=== PATIENT | male | born 1960 | race Caucasian/White ===

== ENCOUNTER → 2023-05-20 | Outpatient (CLI) | payer MEDICARE, SELFPAY ==
[2023-05-20 12:22] LABS: Absolute Neutrophil Count 5.9 X10^3/uL (2.0-7.7); Basophil# 0.04 X10^3/uL; Basophil% 0.4 % (0-1); Eosinophil# 0.07 X10^3/uL; Eosinophils% 0.8 % (0-5); Hematocrit 44.1 % (40-54); Hemoglobin 13.9 g/dL (13.0-16.5); Lymphocyte % 26.3 % (19-41); Mean Corp Hgb Conc 31.5 g/dL (32-36); Mean Corpuscular Hgb 30.1 pg (27.0-32.0); Mean Corpuscular Volume 95.5 fL (80-94); Mean Platelet Vol. 9.9 fl (6.2-12.0); Monocyte# 0.67 X10^3/uL; Monocyte% 7.4 % (0-10); NRBC Flagged by Analyzer 0 % (0-5); Neutrophil % 64.8 % (47-70); Platelet Count 275 K/mm3 (150-450); RBC Distribution Width SD 45.1 fl (35.1-43.9); Red Blood Count 4.62 M/mm3 (4.6-6.2); White Blood Count 9.1 K/mm3 (4.4-11.0)
[2023-05-20 13:00] LABS: AST(SGOT) 12 U/L (15-37); Alanine Aminotransfer ALT/SGPT 23 U/L (16-61); Albumin, Serum 3.6 g/dL (3.2-5.0); Alkaline Phosphatase 76 U/L (45-117); Anion Gap 6 (5-15); BUN 29 mg/dL (7-18); BUN/Creat Ratio 27.6 RATIO (10-20); Calcium,Total 9.2 mg/dL (8.5-10.1); Chloride 107 mmol/L (98-107); Cholesterol 184 mg/dL (200); Creatinine, Serum 1.05 mg/dL (0.70-1.30); EST Glomerular Filtration Rate 75 mL/min (>60); Est Glom Filt Rate - Afr Amer 91 mL/min (>60); Globulin 3.5 g/dL (2.2-4.2); Glucose 107 mg/dL (74-106); High Density Lipoprotein 59 mg/dL; PSA,Total- Diagnostic 0.61 ng/mL (0.0-4.0); Potassium 3.8 mmol/L (3.5-5.1); Protein, Total 7.1 g/dL (6.4-8.2); Sodium Level 141 mmol/L (136-145); Triglycerides 92 mg/dL; Very Low Density Lipoprotein 18 mg/dL (5-40)
[2023-05-20 13:12] LABS: Hemoglobin A1c 6.1 % (3.8-5.6)
== END | disposition home or self-care (01) ==
LOC: BIMLAB 08:23
PROVIDERS: PCP Internal Medicine; Referring Provider Internal Medicine; Visit Provider Internal Medicine
DX: E11.9 Type 2 diabetes mellitus without complications (principal); N40.0 Benign prostatic hyperplasia without lower urinary tract symptoms; I10 Essential (primary) hypertension
CPT/HCPCS: 36415; 80053; 80061; 83036; 84153; 85025

== ENCOUNTER → 2023-06-04 | Outpatient (CLI) | payer MEDICARE, SELFPAY ==
[2023-06-04 11:46] LABS: PSA,Total - Annual Screen 0.61 ng/mL (0.00-4.00)
== END | disposition home or self-care (01) ==
LOC: LAB 10:40
PROVIDERS: PCP Internal Medicine; Referring Provider Urology; Visit Provider Urology
DX: Z12.5 Encounter for screening for malignant neoplasm of prostate (principal)
CPT/HCPCS: 36415; 84153; G0103

== ENCOUNTER → 2023-07-13 | Outpatient (CLI) | payer MEDICARE, SELFPAY ==
--- NOTE | 2023-07-13 15:57 | MRI_ITS ---
EXAM: MR LUMBAR SPINE WITHOUT INTRAVENOUS CONTRAST CLINICAL INDICATION: sharp throbbing pain in lower bcak, fall x 20 yrs ago, h/o heavy lifting x many years TECHNIQUE: Multiplanar and multisequence MR images of the lumbar spine without intravenous contrast. COMPARISON: Lumbar spine radiographs, 06/15/2023. FINDINGS: VERTEBRAE: L2: Endplate osteophytosis and facet arthrosis. No significant spinal canal or neural foraminal stenosis. No disc herniation. Modic type III endplate signal changes at the inferior endplate of L4. No suspicious marrow space signal abnormality is identified. No fracture or spondylolysis. No spondylolisthesis. Maintained lumbar lordosis. Modic type II endplate signal changes at the superior endplate of L5. Broad Schmorl''s node versus less likely chronic L1 superior endplate compression fracture with less than 25% anterior and mid vertebral body height loss and no retropulsion of the posterior cortex. SPINAL CORD: No significant abnormality. Normal position and signal intensity of the conus medullaris. SOFT TISSUES: No significant abnormality. KIDNEYS AND URETERS: Left renal cyst for which no follow-up is indicated. DISCS/SPINAL CANAL/NEURAL FORAMINA: L1-L2: No significant abnormality. Normal disc height and morphology. Normal spinal canal and lateral recesses. Normal neuroforamina. L2-L3: Disc bulge with small superimposed central disc herniation and moderate facet arthrosis with ligamentum flavum thickening. Mild spinal canal stenosis and mild bilateral neural foraminal narrowing, right greater than left. L3-L4: Disc height loss and disc desiccation. Right central disc herniation superimposed upon a disc bulge and severe bilateral facet arthrosis with ligamentum flavum thickening. Severe spinal canal stenosis with effacement of CSF from the thecal sac and crowding of the intrathecal nerve roots. Impingement of the bilateral traversing L4 nerve roots with indeterminate degree of intrathecal nerve root impingement. Moderate bilateral neural foraminal stenosis. No foraminal nerve root impingement. Below this level, the nerve roots of the cauda equina are disorganized and appear peripheral areas as well as somewhat thickened or clumped. L4-L5: Disc height loss and disc desiccation. Disc bulge with superimposed central disc herniation. Facet arthrosis with ligamentum flavum thickening. Mild to moderate spinal canal stenosis, moderate to severe bilateral neural foraminal narrowing, and bilateral foraminal L4 nerve root impingement. At least abutment of the bilateral traversing L5 nerve roots. L5-S1: Right central disc herniation superimposed upon a disc bulge and moderate to severe bilateral facet arthrosis. Mild spinal canal stenosis, severe right neural foraminal narrowing, and moderate left neural foraminal stenosis. Right S1 nerve root impingement and foraminal right L5 nerve root impingement. MRI/Spine Lumbar (Routine) IMPRESSION: 1. Multilevel degenerative changes, most severe at L3-L4 where there is severe spinal canal stenosis. There appears to be at least mild compressive arachnoiditis of the nerve roots below this level. 2. Multilevel nerve root impingement: Bilateral L4, right L5, and right S1 nerve root impingement. 3. Broad Schmorl''s node versus less likely chronic L1 superior endplate compression fracture with less than 25% anterior and mid vertebral body height loss and no retropulsion of the posterior cortex. RECOMMENDATIONS: Spine surgery consultation. Electronically Signed: Jose Guadalupe Bobo DO at 20:54 EDT ,
== END | disposition home or self-care (01) ==
PROVIDERS: PCP Internal Medicine; Referring Provider Orthopaedic Surgery; Visit Provider Orthopaedic Surgery
DX: M48.061 Spinal stenosis, lumbar region without neurogenic claudication (principal)
CPT/HCPCS: 72148

== ENCOUNTER → 2023-11-30 | Outpatient (CLI) | payer MEDICARE, SELFPAY ==
--- NOTE | 2023-11-30 14:40 | RAD_ITS ---
STUDY: X-RAY - ABDOMEN/PELVIS REASON FOR EXAM: Male, 63 years old. HISTORY OF STONES TECHNIQUE: Single AP view of the abdomen / pelvis. COMPARISON: None. FINDINGS: Normal visualized lung bases. No definite stones although small stones could be obscured by overlying bowel contents. There is moderate diffuse fecal retention, otherwise unremarkable bowel gas pattern. There is no demonstrated free abdominal air. The visualized liver, spleen and kidneys are grossly normal in size and morphology. Normal soft tissue structures. There are diffuse degenerative changes of the visualized lumbar spine. RAD/Abdomen Single View IMPRESSION: No definite acute or significant abnormality seen. No definite renal or ureteral stones. Electronically Signed: Baldo Levi MD at 20:16 EST ,
== END | disposition home or self-care (01) ==
LOC: RAD 14:28
PROVIDERS: PCP Internal Medicine; Referring Provider Urology; Visit Provider Urology
DX: N40.1 Benign prostatic hyperplasia with lower urinary tract symptoms (principal); Z87.442 Personal history of urinary calculi
CPT/HCPCS: 74018

== ENCOUNTER → 2024-01-19 | Outpatient (CLI) | payer MEDICARE, SELFPAY ==
--- NOTE | 2024-01-19 13:39 | ECHOCS_ITS ---
Reason For Study: TIA/CVA Procedure This was a 2D Doppler, Color Flow transthoracic echocardiogram. The study was technically difficult. Contrast injection was performed. Exam performed in department. Left Ventricle Normal LV size. The left ventricular ejection fraction is 45 %. There is mild global hypokinesis of the left ventricle. Right Ventricle Normal RV size. Normal systolic function. Atria Normal left atrium. Normal right atrium. Bubble contrast study negative for right to left interatrial shunt. Mitral Valve Normal mitral valve. Tricuspid Valve Normal tricuspid valve. Mild (1+) tricuspid valve insufficiency. Pulmonary artery systolic pressure is 34 mmHg. Aortic Valve Trisinus/trileaflet aortic valve. Pulmonic Valve Normal pulmonic valve. Great Vessels Normal aortic root. The pulmonary artery is normal size. Inferior vena cava collapse with respiration. Pericardium/Pleural No pericardial effusion. Medication 22 gauge I.V. with prn adaptor inserted into right arm. Diluted definity 2.5ml given slow IV push to enhance endocardial definition. Performed a rapid injection of agitated mix of 9 cc saline and 1cc air to assess for atrial septal defect. MMode/2D Measurements & Calculations LVIDd: 5.7 cm IVSd: 1.1 cm Ao root diam: 3.6 cm LVIDs: 4.7 cm LVPWd: 1.1 cm LA dimension: 4.1 cm FS: 18.0 % LAV(MOD-bp): 64.9 ml LVAd ap4: 40.2 cm2 SV(MOD-sp4): 64.1 ml LAV(MOD-bp) Indexed: 28.8 ml/m2 LVLd ap4: 8.5 cm LAV(MOD-sp2): 66.3 ml EDV(MOD-sp4): 158.9 ml LAV(MOD-sp4): 57.4 ml EDV(sp4-el): 161.4 ml LVAs ap4: 29.5 cm2 LVLs ap4: 7.7 cm ESV(MOD-sp4): 94.8 ml ESV(sp4-el): 96.4 ml EF(MOD-sp4): 40.3 % EF(sp4-el): 40.3 % SV(sp4-el): 65.0 ml LA A4 area: 19.1 cm2 Time Measurements MV dec time: 0.24 sec Doppler Measurements & Calculations MV E max nick: 60.1 cm/sec Lat Peak E' Nick: 7.8 cm/sec Med Peak E' Nick: 7.4 cm/sec MV A max nick: 72.7 cm/sec E/E' lat: 7.7 E/E' med: 8.1 MV E/A: 0.83 MV V2 max: 89.8 cm/sec MV P1/2t max nick: 78.6 cm/sec Ao V2 max: 142.2 cm/sec MV max P.2 mmHg MV P1/2t: 96.7 msec Ao max P.1 mmHg MV V2 mean: 48.2 cm/sec Ao V2 mean: 96.0 cm/sec MV mean P.1 mmHg MV dec slope: 237.9 cm/sec2 Ao mean P.3 mmHg MV V2 VTI: 32.1 cm MVA(P1/2t): 2.3 cm2 Ao V2 VTI: 29.9 cm AV (velocity ratio): 0.65 LV V1 max: 94.5 cm/sec PA V2 max: 128.6 cm/sec TR max nick: 277.7 cm/sec LV V1 max P.6 mmHg TR max P.9 mmHg LV V1 mean P.9 mmHg LV V1 mean: 64.8 cm/sec LV V1 VTI: 19.5 cm ECHO/Echo Complete W/ Contrast Interpretation Summary Normal LV size. The left ventricular ejection fraction is 45 %. There is mild global hypokinesis of the left ventricle. Contrast injection was performed. Ordering Physician: Allyson Soler Referring Physician: Allyson Soler Performed By: Miguel Jacobo RCS
== END | disposition home or self-care (01) ==
PROVIDERS: PCP Internal Medicine; Referring Provider Internal Medicine; Visit Provider Internal Medicine
DX: Z86.73 Personal history of transient ischemic attack (TIA), and cerebral infarction without residual deficits (principal)
CPT/HCPCS: 93306; Q9957; A4216; C8929

== ENCOUNTER → 2024-02-22 | Outpatient (CLI) | payer MEDICARE, SELFPAY ==
--- NOTE | 2024-02-22 14:00 | MRI_ITS ---
STUDY: MRI CERVICAL SPINE WITHOUT CONTRAST REASON FOR EXAM: Male, 64 years old. pain TECHNIQUE: Standardized fat and water weighted pulse sequences were obtained in the sagittal and axial planes. COMPARISON: None FINDINGS: Normal foramen magnum and brainstem-cervical cord junction. Normal craniovertebral junction. Normal anterior atlantoaxial articulation. Normal odontoid process. Normal cervical lordosis. Normal vertebral bodies and posterior osseous elements. C2-3: Normal endplates. Normal disc height, signal and morphology. Normal central canal and intervertebral neural foramina. C3-4: Moderate broad disc osteophyte complex asymmetric left with left uncovertebral hypertrophy produces moderate spinal stenosis with abutment of the central spinal cord and mild left neural foraminal stenosis. C4-5: Mild broad disc osteophyte complex produces mild spinal stenosis. No neural foraminal stenosis. C5-6: Mild broad disc osteophyte complex produces mild spinal stenosis. No neural foraminal stenosis. C6-7: Normal endplates. Normal disc height, signal and morphology. Normal central canal and intervertebral neural foramina. C7-T1: Normal endplates. Normal disc height, signal and morphology. Normal central canal and intervertebral neural foramina. Normal cervical cord. Normal visualized soft tissue structures. MRI/Spine Cervical (Routine) IMPRESSION: Multilevel degenerative changes, as described above. Electronically Signed: Chapincito Wen MD at 0:18 EDT ,
== END | disposition home or self-care (01) ==
PROVIDERS: PCP Internal Medicine; Referring Provider Orthopaedic Surgery Orthopaedic Surgery of the Spine; Visit Provider Orthopaedic Surgery Orthopaedic Surgery of the Spine
DX: G95.9 Disease of spinal cord, unspecified (principal)
CPT/HCPCS: 72141

== ENCOUNTER → 2024-05-27 | Outpatient (CLI) | payer MEDICARE, SELFPAY ==
--- NOTE | 2024-05-27 08:05 | CT_ITS ---
CT LEFT LOWER EXTREMITY WITH 3-D IMAGING CLINICAL INDICATION: Templating for left TKA. TECHNIQUE: Axial CT images of the left lower extremity (including left hip, left knee, and left ankle) was performed without IV contrast material. Coronal and sagittal reformats were provided. The protocol utilizes one or more of the following dose reduction techniques: automated exposure control, adjustment of mA and/or kV according to patient size, and/or use of iterative reconstruction technique. RADIATION DOSAGE (If Supplied By Facility): CTDIvol = ( 18.76 ) mGy, DLP = ( 1167.50 ) mGycm COMPARISON: Left knee radiographs dated 11/11/2023 FINDINGS: Bones: There is degenerative arthrosis of the left hip joint with marginal osteophyte formation. There is severe degenerative arthrosis of the medial femorotibial compartment of the left knee with severe joint space narrowing, marginal osteophyte formation, and subchondral sclerosis. There is moderate degenerative arthrosis of the patellofemoral and lateral femorotibial compartments of the left knee with moderate joint space narrowing and marginal osteophyte formation. There are small calcified loose bodies in the posterior femorotibial joint recess and a cluster of ossified loose bodies in the medial recess of the proximal tibiofibular joint. There is osseous spurring of the posterior calcaneal tuberosity with ossific density in the distal Achilles tendon. Osseous structures are intact without evidence of fracture or dislocation. No lytic or blastic osseous masses. Soft Tissues: There is a small left knee joint effusion. There are atherosclerotic calcifications. The deep soft tissue structures are unremarkable. The superficial soft tissues are unremarkable without evidence of edema, hematoma, or foreign body. CT/Extremity Lower without Contra IMPRESSION: Tricompartment degenerative arthrosis of the left knee, most severe in the medial femorotibial compartment. Small calcified loose bodies in the posterior femorotibial joint recess and a cluster of ossified loose bodies in the medial recess of the proximal tibiofibular joint. Small left knee joint effusion. Electronically Signed: Min Zelaya MD at 8:59 EDT ,
== END | disposition home or self-care (01) ==
PROVIDERS: PCP Internal Medicine; Referring Provider Orthopaedic Surgery; Visit Provider Orthopaedic Surgery
DX: M17.0 Bilateral primary osteoarthritis of knee (principal)
CPT/HCPCS: 73700

== ENCOUNTER 2024-06-22 13:12 | Inpatient (IN) | payer MEDICARE, SELFPAY ==
[2024-05-27 08:16] LABS: Absolute Lymphocyte Count 2.48 X10^3/uL (0.83-4.51); Absolute Neutrophil Count 5.5 X10^3/uL (2.0-7.7); Basophil# 0.08 X10^3/uL; Basophil% 0.9 % (0-1); Eosinophil# 0.31 X10^3/uL; Eosinophils% 3.4 % (0-5); Hematocrit 40.1 % (40-54); Hemoglobin 13.2 g/dL (13.0-16.5); Lymphocyte # 2.48 X10^3/ul (0.83-4.51); Mean Corp Hgb Conc 32.9 g/dL (32-36); Mean Corpuscular Hgb 29.9 pg (27.0-32.0); Mean Corpuscular Volume 90.9 fL (80-94); Mean Platelet Vol. 9.2 fl (6.2-12.0); Monocyte# 0.73 X10^3/uL; NRBC Flagged by Analyzer 0 % (0-5); Neutrophil # 5.53 X10^3/uL (2.7-7.7); Neutrophil % 60.3 % (47-70); Platelet Count 309 K/mm3 (150-450); RBC Distribution Width CV 12.3 % (11.6-14.6); RBC Distribution Width SD 40.6 fl (35.1-43.9); Red Blood Count 4.41 M/mm3 (4.6-6.2); White Blood Count 9.2 K/mm3 (4.4-11.0)
[2024-05-27 08:42] LABS: Anion Gap 8 (5-15); BUN 25 mg/dL (7-18); BUN/Creat Ratio 15.2 RATIO (10-20); Calcium,Total 9.2 mg/dL (8.5-10.1); Chloride 98 mmol/L (98-107); Creatinine, Serum 1.65 mg/dL (0.70-1.30); EST Glomerular Filtration Rate 45 mL/min (>60); Est Glom Filt Rate - Afr Amer 54 mL/min (>60); Glucose 189 mg/dL (74-106); Potassium 4.2 mmol/L (3.5-5.1); Sodium Level 134 mmol/L (136-145)
[2024-05-27 08:44] LABS: Magnesium 3.1 mg/dL (1.6-2.6)
[2024-05-27 09:10] LABS: Prothrombin Time (Protime)PT. 13.4 SECONDS (11.7-14.9)
[2024-05-27 09:11] LABS: Partial Thromboplast Time 29.3 Seconds (24.1-36.2)
[2024-05-28 10:08] LABS: Fructosamine 283 umol/L (0-285)
--- NOTE | 2024-06-21 13:06 | CASEMGMT ---
JASON LANE Assessment: JASON LANE called pt for initial transition planning/care coordination assessment. JASON LANE introduced self and role at [facility], pt voices understanding and consents to assessment. Pt is A&O x4 and answers all questions appropriately at this time. Pt daughter also on TC, pt agreeable to answering questions with daughter present. Care providers, pharmacy, and demographics verified/updated. Admitting Dx:Total Knee replacement. PCP: Dorina Specialists: Leonidas, Neurologist; [facility] Preferred Pharmacy: [facility] Insurance: [employer] Prescription Benefit: yes LNOK: Living Arrangements: Pt lives with in a 1 story with zero steps to enter. Pt needs assistance with ADLs and IADLs. Transportation: Pt drives self. Pt daughter in from [place] and is staying with pt for a few days. DME:wheelchair, walker, shower chair, toilet riser. HHC/SNF: Denies Hx of. Pt daughter has concerns about pt returning home after surgery. Daughter states his place is about 700 sq [address] and is packed wall to wall. Daughter states she is concerned about pt falling and getting hurt, also concerned about pt . Daughter states pt unable to take care of him. Daughter has 5 kids back home in [place] so she is not able to stay for a long period of time. Daughter requested pt go to Rehab or detention facility. JASON LANE explained to daughter therapy will evaluate pt after surgery and will provide recommendations based on their evaluations. Pt daughter voiced understanding. Pt states no further concerns/needs. CM to follow. Advised pt to ask CM if any further question/concerns/needs arise, voices understanding. Pt Goal: TBD Plan: TBD, follow therapy for recommendations JASON Escobar CM
[2024-06-22] VITALS (18 sets, daily range): BP systolic 102–143; BP diastolic 48–72; PULSE 58–92; RESP 16–95; TEMP 36.1–36.8; O2SAT 86–99; BMI 34.2; BMI 36.1
--- NOTE | 2024-06-22 08:53 | PCM.PRE.AN2 ---
ASA Classification* ASA Classification ASA Classification: 2 Assessment & Plan Anesthesia* Anesthesia Assessment Anesthesia Assessment: Discussed sedation and/or anesthesia options, risks, benefits, and alternatives with patient/parents/legal guardian/POA. Questions invited. The patient/parents/legal guardian/POA seems to understand and agrees to proceed with anesthesia plan. Reviewed the physical assessment, medical history, allergy history and patient home medications list prior to surgery/procedure/anesthetic and documented any changes. Performed airway and anesthesia risk assessments. Anesthesia Type Anesthesia Type: Spinal (block) Anesthesia Focused Assessment* Airway Assessment Mouth opens: >3 cm Mallampati Score: II Focused Labs Anesthesia Preop lab: CBC WBC 9.2 K/mm3 (4.4-11.0) 05/27/24 07:45 RBC 4.41 M/mm3 (4.6-6.2) L 05/27/24 07:45 Hgb 13.2 g/dL (13.0-16.5) 05/27/24 07:45 Hct 40.1 % (40-54) 05/27/24 07:45 Plt Count 309 K/mm3 (150-450) 05/27/24 07:45 CHEMISTRY Potassium 4.2 mmol/L (3.5-5.1) 05/27/24 07:45 Sodium 134 mmol/L (136-145) L 05/27/24 07:45 Magnesium 3.1 mg/dL (1.6-2.6) H 05/27/24 07:44 BUN 25 mg/dL (7-18) H 05/27/24 07:45 Creatinine 1.65 mg/dL (0.70-1.30) H 05/27/24 07:45 Glucose 189 mg/dL (74-106) H 05/27/24 07:45 COAG PT 13.4 SECONDS (11.7-14.9) 05/27/24 07:45 Pre-Assessment Diagnosis/Proposed Procedure Planned Operative Procedure(s): LEFT TOTAL KNEE ARTHROPLASTY ROBOTIC Anesthesia History Anesthesia History - multigrapher: Anesthesia History - multigrapher Hx Hospitalization No 05/23/24 10:13 Any Problems With Anesthesia No 05/23/24 10:13 Cholinesterase deficiency No 05/23/24 10:13 You/Your Family Experience No 05/23/24 10:13 fever (hyperthermia) with Relationship Recent Exposure to Contagious Disease Does patient have nerve No 05/23/24 10:13 stimulator Patient instructed to have device shut off --Does patient have Pacemaker or ICD? When Was Last Pacemaker Check QUESTION #4 FULL TEXT: You/Your Family Experience fever (hyperthermia) with Anesthesia Last Oral Intake Last Oral intake: Last Oral Intake NPO since Meds taken in AM with sips of water? Meds patient instructed to take am of surgery PONV PONV - multigrapher: PONV - multigrapher Female No 05/23/24 10:13 HX of Motion Sickness No 05/23/24 10:13 HX of N/V After Surgery No 05/23/24 10:13 Non-Smoker Yes 05/23/24 10:13 Duration of Surgery greater Yes 05/23/24 10:13 than 60 minutes Number of Risk Factors 2 05/23/24 10:13 PONV Score Moderate Risk 05/23/24 10:13 Height & Weight Height & Weight: Anesthesia: Height & Weight Height 5 ft 9 in 03/17/24 09:45 Respiratory Assessment Respiratory Assessment - multigrapher: Respiratory Tract Infection Hx - multigrapher Hx Respiratory Tract Infection No 05/23/24 10:13 STOP Sleep Apnea STOP Sleep Apnea - multigrapher: STOP Sleep Apnea - multigrapher Hx Hypertension Yes: CONTROLLED WITH MEDS 05/23/24 10:13 Hx Sleep Apnea No 05/23/24 10:13 CPAP BIPAP Do you snore loudly (louder Yes 05/23/24 10:13 than talking or can be heard Do you often feel tired/ No 05/23/24 10:13 fatigued/ sleepy during daytime? Has anyone observed you stop No 05/23/24 10:13 breathing during sleep? STOP Results Positive 05/23/24 10:13 QUESTION #5 FULL TEXT : Do you snore loudly (louder than talking or can be heard through closed doors)? 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 Specify any problems Hx of Preganancy in last 3 N/A 05/23/24 10:13 Months Nurse Filling Out Transfusion DSCHRIBER 05/23/24 10:13 & Questions: Date: 05/23/24 05/23/24 10:13 Time: 10:16 05/23/24 10:13 Patient unable to answer at this time (ie. confused, unrespo /Reproduction History /Reproductive History - multigrapher: /Reproductive Hx- multigrapher Hx Now No 05/23/24 10:13 Gestational Age (in weeks): EDC: Hx Hx Para Hx Section SAB No 05/23/24 10:13 Active Medications Active Medications: Current Medications Generic Name Dose Route Start Last Admin Trade Name Frebilly PRN Reason Stop Dose Admin Acetaminophen 1,000 mg 06/22/24 10:30 Acetaminophen 500 Mg Tablet PO 06/22/24 10:31 X1 ONE Celecoxib 400 mg 06/22/24 10:30 Celecoxib 200 Mg Capsule PO 06/22/24 10:31 X1 ONE Dexamethasone Sodium Phosphate 10 mg 06/22/24 10:30 Dexamethasone 10 Mg/Ml Vial IV 06/22/24 10:31 X1 ONE Gabapentin 600 mg 06/22/24 10:30 Gabapentin 600 Mg Tablet PO 06/22/24 10:31 X1 ONE Cefazolin Sodium 2 gm/ Sodium 110 mls @ 150 mls/hr 06/22/24 10:30 Chloride IV 06/22/24 11:13 PREOP ONE Tranexamic Acid 1,000 mg/ 110 mls @ 660 mls/hr 06/22/24 10:30 Sodium Chloride IV 06/22/24 10:39 X1 ONE Tranexamic Acid 1,000 mg/ 110 mls @ 660 mls/hr 06/22/24 10:30 Sodium Chloride IV 06/22/24 10:39 X1 ONE Lactated Ringer's 1,000 mls @ 125 mls/hr 06/22/24 11:30 IV 06/22/24 19:29 .Q8H KHADAR Magnesium Sulfate 1 gm/ 102 mls @ 408 mls/hr 06/22/24 10:30 Dextrose IV 06/22/24 10:44 X1 ONE Lactated Ringer's 1,000 mls @ 15 mls/hr 06/22/24 08:45 IV .Q48H KHADAR Insulin Human Lispro 1 - 6 unit 06/22/24 10:30 Insulin Lispro 100 Unit/Ml Insuln.Pen SC 06/22/24 16:30 Q4H PRN PRN BG>/= 180, SEE PROTOCOL Protocol Scopolamine HBr 1 patch 06/22/24 10:30 Scopolamine 1mg/72hr Patch TD 06/22/24 10:31 X1 ONE PFSH Medical History Wears glasses Depression Bladder disease High cholesterol Back pain Parkinson's disease Stroke/cerebrovascular accident Heartburn Non-smoker History of pain when walking History of edema History of echocardiogram Cardiology follow-up encounter Bilateral primary osteoarthritis of knee Pain in both knees Family history of prostate problems Kidney stones Hypertension Diabetes History of back problems Arthritis Home Medications ?Medication ?Instructions ?Recorded ?Last Taken ?Type aspirin 81 mg tablet,delayed 81 mg PO DAILY HEART HEALTH 02/01/24 Unknown History release dapagliflozin propanediol 10 mg 10 mg PO DAILY CHOLESTEROL 03/17/24 Unknown History tablet spironolactone 25 mg tablet 25 mg PO QDAY WATER PILL 03/17/24 Unknown History atorvastatin 10 mg tablet (Lipitor) 20 mg PO QHS CHOLESTEROL 05/23/24 Unknown History carbidopa 25 mg-levodopa 100 mg 1 tab PO TID PARKINSON 05/23/24 Unknown History tablet amlodipine 10 mg tablet 10 mg PO DAILY BP #90 tabs 05/31/24 Unknown Rx citalopram 40 mg tablet 40 mg PO DAILY DEPRESSION #90 05/31/24 Unknown Rx TABLETS clonidine HCl 0.2 mg tablet 0.2 mg PO BID BP #180 tabs 05/31/24 Unknown Rx lisinopril 20 1 tab PO DAILY BP #90 tabs 05/31/24 Unknown Rx mg-hydrochlorothiazide 12.5 mg tablet tamsulosin 0.4 mg capsule 0.4 mg PO QHS PROSTATE #90 caps 05/31/24 Unknown Rx Allergy/AdvReac Type Severity Reaction Status Date / Time acetaminophen (From Vicodin) Allergy Intermediate Nausea/Vom/ Verified 05/23/24 09:57 Diarrhea hydrocodone (From Vicodin) Allergy Intermediate Nausea/Vom/ Verified 05/23/24 09:57 Diarrhea tramadol Allergy Intermediate Nausea/Vom/ Verified 05/23/24 09:57 Diarrhea Family History Mother Hypertension Myocardial infarction Colon cancer CVA (cerebral vascular accident) Depression Diabetes Brother Colon cancer Cancer STOMACH CVA (cerebral vascular accident) Hypertension Father Hypertension Sister Diabetes Surgical History No pertinent past surgical history Social History household members: spouse current occupational status: retired current occupation: [employer] Smoking Status: Never smoker Electronic Cigarette Use: not used alcohol intake: never substance use type: does not use what type of physical activity do you participate in: none seatbelt use: sometimes do you feel safe at home: Yes Review of Systems (Anesthesia) ROS Narrative System reviewed and no additional complaints, except as documented.
--- NOTE | 2024-06-22 09:21 | PCM.HP.BLA ---
History and Physical Date of Admission: 06/22/24 [facility] [address] [place] [address] OFFICE VISIT Date of Service: 02/24/24 MR#: [id number] Acct: [id number] Name: NICK ARORA Rep #: [id number] : 1960 Provider: Dr. Mac Ge DO Age/Sex: 64/M Location: [facility] [place].JUSTYN Status: Signed Intake Vital Signs 02/08/2413:59 02/14/2414:45 Height 5 ft 9 in 5 ft 9 in Weight: 243 lb BMI 35.9 Intake Visit Reasons: RIGHT KNEE Chief Complaint: 3rd Euflexxa Injection Accompanied by: Self Is patient in pain?: Yes Allergies acetaminophen (From Vicodin) Allergy (Intermediate, Verified 02/24/24 13:17) Nausea/Vom/Diarrheahydrocodone (From Vicodin) Allergy (Intermediate, Verified 02/24/24 13:17) Nausea/Vom/Diarrheatramadol Allergy (Intermediate, Verified 02/24/24 13:17) Nausea/Vom/Diarrhea Medications ?Medication ?Instructions ?Recorded ?Confirmed ?Type amlodipine 10 mg tablet 10 mg PO DAILY #90 tabs 12/02/23 02/24/24 Rx citalopram 40 mg tablet 40 mg PO DAILY #90 TABLETS 12/02/23 02/24/24 Rx clonidine HCl 0.2 mg tablet 0.2 mg PO BID #180 tabs 12/02/23 02/24/24 Rx doxazosin 2 mg tablet 2 mg PO DAILY #90 tabs 12/02/23 02/24/24 Rx gabapentin 600 mg tablet 600 mg PO BID #60 tabs 12/02/23 02/24/24 Rx lisinopril 20 1 tab PO DAILY #90 tabs 12/02/23 02/24/24 Rx mg-hydrochlorothiazide 12.5 mg tablet meloxicam 7.5 mg tablet 7.5 mg PO DAILY #90 tabs 12/02/23 02/24/24 Rx metformin 500 mg tablet,extended 500 mg PO DAILY #90 tabs 12/02/23 02/24/24 Rx release 24 hr primidone 50 mg tablet 25 mg (1/2 x 50 mg) PO QHS #15 tabs 12/02/23 02/24/24 Rx propranolol 60 mg capsule,24 60 mg PO DAILY #90 caps 12/02/23 02/24/24 Rx hr,extended release tamsulosin 0.4 mg capsule 0.4 mg PO DAILY #90 caps 12/02/23 02/24/24 Rx atorvastatin 10 mg tablet (Lipitor) 10 mg PO QHS #30 tabs 01/14/24 02/24/24 Rx finasteride 5 mg tablet mg PO DAILY 01/14/24 02/24/24 History aspirin 81 mg tablet,delayed 81 mg PO DAILY 02/01/24 02/24/24 History release carvedilol 25 mg tablet 25 mg PO BID 02/01/24 02/24/24 History PFSH Medical History Cerebral vascular accident Bilateral primary osteoarthritis of knee Pain in both knees Family history of prostate problems Kidney stones Hypertension Diabetes History of back problems Arthritis Surgical History No pertinent past surgical history Family History Mother Hypertension Myocardial infarction Colon cancer CVA (cerebral vascular accident) Depression DiabetesBrother Colon cancer Cancer STOMACH CVA (cerebral vascular accident) HypertensionFather HypertensionSister Diabetes Social History household members: spouse current occupational status: retired current occupation: [employer] Smoking Status: Never smoker Electronic Cigarette Use: not used alcohol intake: never substance use type: does not use what type of physical activity do you participate in: none seatbelt use: sometimes do you feel safe at home: Yes HPI RIGHT KNEE Details: This documentation accurately reflects the service provided and the decisions made by me, Dr. Mac Ge, DO 02/24/24 0809. Part of today?s visit was documented by Jennifer Lucia ATC, acting as scribe. NICK ARORA is a 64 year old M here today for right knee 3rd Euflexxa injection. Patient states the right knee is not bothering him much today but the left one is bothering him. He states his back is really bothering him so it takes his mind off of the knee pain. 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 Patient is interested in getting a TKA on the left knee. Ortho Exam General General: Yes no acute distress Neurologic: Yes alert and Yes oriented x3 Psychologic: Yes reasonable and appropriate Right Knee Skin/Wound: Yes CDI, No erythema, No ecchymosis and No swelling Knee ROM: No ROM-Extension -20 to 0 (-22) and Yes ROM-Flexion 0-140 (120) Examination: Yes Med jt line tenderness Stability: NML: Anterior Drawer, NML: Posterior Drawer, NML: Valgus 0, NML: Valgus 30, NML: Varus 0 and NML: Varus 30 Patella Grind: Yes Head: Normocephalic Atraumatic Chest: symmetrical rise, non-labored breathing, no audible wheeze Abdomen: no guarding, non-rigid Office Procedures Euflexxa Procedure Details:: Obtained consent for injection. Under sterile conditions, injected the patients right knee with 3rd Euflexxa injection. The patient tolerated the injection well without any noted complication. Patient should call our office if redness develops, pain worsens or if they have any concerns. Is this Buy & Bill?: Yes Office Meds Euflexxa 10 mg/mL (mw 2.4-3.6 million) intra-articular syringe Performing Provider: Mac Ge DO Performing Location: [facility] Administered by: Mac Ge DO on 02/24/24 13:30 Dose Route Admin Location Dispensed Lot Number Expiration Date NDC Sign Out Clerk 20 mg intra-articular Right knee 2 mL [id number] 01/30/25 [address]-4 [facility] Supplemental Info 11/11/2023 x-ray right knee: Moderate tricompartmental DJD worse medial and patellofemoral compartment large osteophytes posterior tibia trochlea and patella 11/11/2023 x-ray left knee: Advanced medial compartment arthrosis [id number] moderate patellofemoral and lateral compartment 04/30/2023 x-ray left knee: Advanced medial compartment arthrosis [id number] moderate patellofemoral and lateral compartment 04/30/2023 x-ray right knee: Moderate tricompartmental DJD worse medial and patellofemoral compartment large osteophytes posterior tibia trochlea and patella Coding Level of Care Code Off vis,est,level 3 Diagnoses Bilateral primary osteoarthritis of knee M17.0 CPT Codes Euflexxa Procedure ([id number]) Assessment and Plan Assessment and Plan (1) Bilateral primary osteoarthritis of knee: Status: Acute Orders: Orders Euflexxa Injection Today M17.0 - Bilateral primary osteoarthritis of knee Plan Explained to patient that we still have to wait to see how his 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 Spoke to patient that he needs to talk to the melter supervisor electric arc furnace and ask him if he would be cleared for a TKA. Explained that we would still have to get a medical clearance from the melter supervisor electric arc furnace after the appointment. Explained to him that he could continue with the visco injections on the right knee for now if he is able to move forward with the TKA on the left knee. He is able to get these injections every 6 months. Explained to patient that he would stay in the hospital for 1-2 nights depending on how he does with the surgery. He would go home as long as he is moving around and is stable. Explained to him that most patients start to feel some relief around 3 months but it could take up to a full year to fully recover. Obtained consent for injection. Under sterile conditions, injected the patients right knee with 3rd Euflexxa injection. The patient tolerated the injection well without any noted complication. Patient should call our office if redness develops, pain worsens or if they have any concerns. Follow up in an as needed basis or sooner if pain, swelling, numbness or associated symptoms, or concerns develop. All questions answered. Patient in agreement of plan. 02/24/24 1354 <Electronically signed by Mac Ge DO> Date Mac Cannon Signature: Date (if applicable) CC: ~ I have examined the patient and the H&P has been reviewed. There are no clinical changes since date of exam. Mac Cannon Signature: Date (if applicable) CC: ~ I have examined the patient and the H&P has been reviewed. There are no clinical changes since date of exam.
[2024-06-22] MEDS: Magnesium 1 GM over 15 mins IV (09:23)
[2024-06-22] MEDS: Scopolamine 1mg/72hr Patch 1 PATCH TD (09:23)
[2024-06-22] MEDS: Lactated Ringers 1,000 ML 15 ML IV (09:23)
[2024-06-22] MEDS: Celecoxib 200 MG Capsule 400 MG PO (09:23)
[2024-06-22] MEDS: Acetaminophen 500 MG Tablet 1000 MG PO ×3 (09:24→21:37)
[2024-06-22] MEDS: Gabapentin 600 MG Tablet PO (09:24)
[2024-06-22 10:16] LABS: Bedside Glucose 154 mg/dL (74-106)
[2024-06-22] MEDS: Cefazolin 2 GM in 0.9% Normal Saline (100mL Bag) 100 ML IV ×3 (10:21→21:43)
[2024-06-22] MEDS: dexAMETHasone 10 MG/ML Vial IV (10:30)
[2024-06-22] MEDS: TXA 1000mg in NS100 100ml (IVPB at Incision) 660 MG IV (10:31)
--- NOTE | 2024-06-22 10:40 | KNEE_PTH ---
PATIENT: NICK ARORA LOC: MS3 U#:[id number] AGE/SX: 64/M ROOM: [facility] RE06/22/[address]: Dr. Alondra Zelaya DO : 1960 BED: 1 DIS: 06/29/2024 SPEC #: [id number] RECD: 06/23/24 08:17 STATUS: SOBIA CHRIS #: [id number] ORALIA: 06/22/24 10:[address]: Mac Ge DEPT: SURGICAL PATHOLOGY RECD BY: Ciarra Lofton ENTERED: 06/23/24 10:22 SP TYPE: TOTAL KNEE OTHR DR: Dr. Mishel Vivar MD Tissues: Knee, NOS Procedures: Decalcification bone/plaque Surgery Specimen Level IV HEADER OPERATION: Left total knee replacement robotic arm assist PRE-OP DIAGNOSIS: Bilateral primary osteoarthritis of knee TISSUE SUBMITTED: Bone and soft tissue left knee MICROSCOPIC DIAGNOSIS Bone and tissue of left knee, total knee resection: Severe degenerative joint disease. AM: 06/29/2024 MICROSCOPIC DESCRIPTION Slides are reviewed. GROSS DESCRIPTION Received is one container designated bone and soft tissue left knee. The specimen consists of multiple fragments of mcconnell-yellow bone measuring in aggregate 11.0 x 10.0 x 3.0 cm. No soft tissue is identified. A number of bony fragments contain articular surfaces consistent with tibial plateau and femoral condyle and displaying prominent osteophyte formation, eburnation and bone erosion. Logistics Project Manager sections are submitted in one cassette after decalcification. / JASE. 06/23/2024 TC:5 CPT: 81866, 85845
[2024-06-22] MEDS: TXA 1000mg in NS100 100ml (IVPB at Closure) 660 MG IV (11:06)
[2024-06-22] MEDS: Epinephrine (1 mg/ml) 1 MG/ML VIAL (12:11)
[2024-06-22] MEDS: dexAMETHasone 4 MG/ML Vial (12:11)
[2024-06-22] MEDS: Bupivacaine 0.5% PF 10 ML VIAL (12:11)
[2024-06-22] MEDS: 0.9% Normal Saline (Pres. free 10 ML Vial (12:11)
--- NOTE | 2024-06-22 13:17 | PCM.OP.BLANK ---
Operative Report Date of Procedure: 06/22/24 Preoperative diagnosis: Left knee DJD Postoperative diagnosis: Same Procedure: Left total knee arthroplasty CT guided Robotic Assisted Implant: Dashawn triathlon press fit, femoral component size5, tibial baseplate size 5, asymmetric patella size 35, polyethylene X3 size 9 CS Anesthesia: General With adductor canal block Tourniquet time: 12 minutes at 300 mmHg Complications: None Condition: Stable to PACU Estimated blood loss: 200 cc Rental Representative Maik Atkinson. My physician clinical data assistant was a vital part of this case. He was important in appropriate retraction during the case, and protection of soft tissues during procedure. His intimate knowledge of the case and my steps aided in safe and expedient completion of the procedure as well as appropriate position of the extremity during the case. He was also vital in assisting with closure under my direct supervision. Indication for procedure: This is a 64-year-old male with long standing degenerative joint disease of the knee who has failed conservative treatment and wished to proceed with elective total knee arthroplasty. Risk benefits and alternatives were reviewed including; risk of bleeding, infection, nerve artery and tissue damage, continued pain, postoperative stiffness, venous thromboembolism, need for postoperative rehabilitation, mechanical feel to the knee, and expected postoperative course. The pre- operative CT and templating was performed with component sizing. Procedure: The patient was met in the preoperative holding area. The operative extremity was identified by both patient and physician and was marked. Patient was met by anesthesia. An adductor canal block was placed by anesthesia postoperatively the patient was brought back to the operating room on a wheeled cart and transferred to the operating table in the supine position. Anesthesia was started. A well-padded tourniquet was placed on the operative extremity. The patient was prepped and draped in the usual sterile fashion. A timeout was called to ensure the proper patient procedure and extremity were being contemplated. An esmarch was used to exsanguinate the extremity. The tourniquet was inflated. A 10 blade scalpel was used to make a midline incision down through the skin and subcutaneous tissue. Skin retractors placed. Bovie and Aquamantis were used to perform meticulous hemostasis. full-thickness flaps were elevated medial and lateral along the joint capsule. A deep blade scalpel was used to perform a medial parapatellar arthrotomy. The knee was brought to full extension. A bovie was used to release the soft tissues off the most proximal aspect of the medial tibial plateau, a three-quarter inch curved osteotome was also used in this process. The infrapatellar fat pad was excised. The suprapatellar fat pad was excised partially anteriorolateraly and portion the anterioromedial pad was elevated from the femur. At this point our intra-articular femoral array was placed at a 45 degree angle proximal and posterior to the medial epicondyle. femoral checkpoint was placed at this time. Our tibial array was placed partially intra incisional 1 stab incision was made for the inferior pin with a 15 blade scaple, and pins were placed and attached to the tibial array , tibial checkpoint was placed in the proximal tibial metaphysis. Tourniquet was let down. At this point registration dow were taken throughout the knee . Once the knee was registered we then tensioned the medial and lateral ligaments in extension and 90 degrees of flexion. We then used these numbers to adjust our components within parameters to balance the knee in both flexion and extension once this was done on our monitor we then proceeded with using the robotic arm to make our tibial plateau cut, anterior and posterior chamfer and distal femur cuts. we removed the cut fragments with the use of a bovie and Marianela, we did use a lamina chainstitch pants outseamer to insure we visualized and removed all posterior osteophytes and at this time also used the Aquamantis on the posterior joint capsule. we then trialed and achieved the desired plan with a well-balanced knee. we used the green probe to elizabet the corresponding tibial rotation based on our CT template. Lug holes were drilled in the femur the tibia preparation was completed with the appropriate sized base plate pinned based on previous rotation elizabet. An appropriate sized fin punch was used on the tibia and 4 corner drill was used for the press fit component and the patella was prepared by first using a caliper to ensure sufficient bone stock and a patellar reamer to remove the desired amount of bone. lug holes drilled for an asymmetric poly. We then brought the knee through range of motion with excellent patellar tracking. We thoroughly irrigated the knee. Trial components were removed a posterior capsular injection was preformed with our standard cocktail. In addition the aqua Mantis was also used to aid in hemostasis. Betadine rinse was allowed to sit and washed out completely. Components were press-fit into place. Aricept rinse was then used followed by several more liters of irrigation after it was allowed to sit. The joint capsule was closed with #1 Ethibond [id number]'s in the upper part of the arthrotomy and #1 Vicryl in the lower part of the arthrotomy. , Followed by 2-0 Vicryl in the subcutaneous tissues with lianet in the skin. Arrays and checkpoints were removed prior to closure all counts were correct stab incisions were closed with a staple standard dressing in the form of Mepilex AG for the main incision and a small Mepilex over the pin holes. Thigh-high NOLVIA hose applied over top of dressing. Patient tolerated the procedure well and was directed to PACU in stable condition . There were no intraoperative complications.
--- NOTE | 2024-06-22 13:18 | PCM.POST.ANE ---
Anesthesia: Postop Eval I Current Vital Signs Temperature: 97.4 F Pulse Rate: 90 Blood Pressure: 130/63 Respiratory Rate: 16 Pulse Ox: 95 Assessment Airway patent: Yes Spontaneous unlabored respirations: Yes nausea: No Vomiting: No Anesthesia Complication: No Fluid Hydration Crystalloid volume administer (ml): 1,000 Total IV fluid infused: 1,000 Progress Note Anesthesia document: Postop Eval 1 completed: Yes
--- NOTE | 2024-06-22 13:20 | RAD_ITS ---
STUDY: X-RAY - LEFT KNEE REASON FOR EXAM: Male, 64 years old. Post op -- AP and Lateral xray of operative knee in PACU TECHNIQUE: 2 views of the left knee. COMPARISON: Left knee radiographs dated 11/11/2023. FINDINGS: There are new postoperative changes related to left total knee arthroplasty with patellar resurfacing. There is a vertical staple line along the anterior aspect of the knee. There is gas in the patellofemoral joint recess and anterior soft tissues, compatible with recent surgery. The orthopedic hardware components are intact. There is no periprosthetic fracture. Normal proximal tibiofibular articulation. There are atherosclerotic calcifications. RAD/Knee 1 or 2 Views IMPRESSION: New postoperative changes related to left total knee arthroplasty. Electronically Signed: Min Zelaya MD at 13:36 EDT ,
--- NOTE | 2024-06-22 13:20 | PCM.POSTANE2 ---
Anesthesia Postop Eval I Sum Postop Eval Completion status Anesthesia document: Postop Eval 1 completed: Yes Anesthesia Postop Eval I Summary Anesthesia Postop Eval I Summary: Anesthesia Postop Eval I: Assessment Summary Airway patent Yes 06/22/24 13:19 Spontaneous unlabored Yes 06/22/24 13:19 respirations Mental status nausea No 06/22/24 13:19 Vomiting No 06/22/24 13:19 Anesthesia Postop Eval I: Fluid Summary Crystalloid volume administer 1,000 06/22/24 13:19 (ml) Colloids volume administered ( ml) Blood Product volume administered (ml) Total IV fluid infused 1,000 06/22/24 13:19 Anesthesia Postop Eval I: Summary Notes Anesthesia Complication No 06/22/24 13:19 Anesthesia Complication Comment: Post-operative progress note Anesthesia: Postop Eval II Evaluation Mental status: Awake Pain Level: 0 nausea: No Vomiting: No
[2024-06-22] MEDS: Carbidopa/Levodopa 25/100 Tablet PO ×2 (15:31→17:26)
[2024-06-22] MEDS: oxyCODONE 5 MG Tablet PO ×3 (16:41→23:20)
--- NOTE | 2024-06-22 16:46 | SUR.PHASEII ---
OXYGEN REMOVED AND HE IS 94-95% ON ROOM AIR BEFORE HE WENT UP TO HIS ROOM.
--- NOTE | 2024-06-22 18:12 | PCM.PN.HOSP ---
Reason for Visit Reason for Visit: Right knee pain/osteoarthritis Subjective Subjective Patient is a 64-year-old white male who presented electively to [facility] on 06/22/2024 for total knee arthroplasty of his right knee. He had failed outpatient conservative management including Euflexxa injections. He was seen preoperatively by cardiology for medical clearance. Given his failure of outpatient conservative management he elected to undergo a left total knee arthroplasty on 06/23/2024. He has a past medical history of stroke, nephrolithiasis, essential hypertension, DM-2, BPH, ARASELI, and chronic systolic heart failure. We have been consulted postoperatively to help manage his ongoing chronic medical issues. The patient was evaluated postoperatively on the medical floor. Patient states he is having a little bit of pain and was just given medication for this. He is getting ready to eat dinner. He states is not all that hungry but wants to get something in his stomach. He denies any complaints at this time otherwise. Objective Data Objective Data Vital Signs: Vital Signs Temp Pulse Resp BP Pulse Ox O2 Del Method O2 Flow Rate 97.6 F L 77 18 129/48 H 97 Nasal Cannula 2 06/22/24 16:53 06/22/24 16:53 06/22/24 16:53 06/22/24 16:53 06/22/24 17:29 06/22/24 17:29 06/22/24 17:29 Oxygen Flow Rate (L/min) 2 Oxygen Delivery Method Nasal Cannula Weight: 111.13 kg Body Mass Index (BMI) 36.1 Intake & Output: Intake and Output for Last 24 Hours 06/20/24 06/21/24 06/22/24 23:59 23:59 23:59 Intake Total 2552.75 / 2552.75 Balance 2552.75 / 2552.75 Lab / Micro Data 05/27/24 07:45 05/27/24 07:45 Labs: Laboratory Results - last 24 hr 06/22/24 09:12: POC Glucose 154 H 06/22/24 09:21: Blood Type Cancelled, Antibody Screen Cancelled 06/22/24 10:15: Blood Type O POSITIVE, Antibody Screen NEGATIVE Micro: Microbiology 05/27/24 07:45 Swab (Method) Nasal Screen MRSA/MSSA - Final Radiography Diagnostic Testing: Radiology Impression Knee X-Ray 06/22/24 13:20 IMPRESSION: New postoperative changes related to left total knee arthroplasty. Electronically Signed: Min Zelaya MD at 13:36 EDT , Physical Exam Const alert, oriented x3, no apparent distress, healthy appearing and well nourished; Negative for average body habitus Constitutional Narrative: Obese, upper middle-aged, white male, sitting up in bed getting ready dinner and watching television, appears comfortable, nontoxic HEENT head/scalp atraumatic and moist oral mucous membranes HEENT Narrative: Dentures in place, Mallampati 3, no thrush Head and Scalp: normocephalic Resp normal respiratory effort, no retractions, no use of accessory muscles and clear to auscultation bilaterally Auscultation: Negative for rales, rhonchi or wheezes Cardio regular rate, regular rhythm, S1 normal heart sound, S2 normal heart sound, no murmurs, no rub, no gallops and no clicks GI normal to inspection, nondistended, normoactive bowel sounds, soft to palpation and non-tender Extremity no clubbing, cyanosis or edema Extremity Narrative: NOLVIA hose bilateral lower extremities, polar ice on right knee Neuro oriented x3 and moves all extremities Speech: speech normal Psych Psych Narrative: Slightly groggy but affect is normal and patient interacts appropriately with good eye contact Assessment & Plan Assessment/Plan (1) Left knee pain: QUALIFIERS: Chronicity: chronic Qualified Code(s): M25.562 - Pain in left knee; G89.29 - Other chronic pain PLAN: Plan Right knee osteoarthritis -Postop day 0 right total knee arthroplasty -Pain management per primary -Recommend bowel regimen -PT/OT consultation -DVT prophylaxis per orthopedic surgery DM-2 -Continue home oral agents -Recommend cardiac/carb controlled diet -A1c on 03/14/2024 was 6.8 Chronic tremor -Continue home carbidopa levodopa -Follows with neurology and thought to be Parkinson's -Ongoing follow-up pending Essential hypertension/HPL -Continue home amlodipine 10 mg daily -Continue home atorvastatin 20 mg nightly -Continue home p.o. clonidine 0.2 mg p.o. twice daily -Continue home lisinopril/HCTZ 23/09.5 daily -Continue home Aldactone Chronic systolic heart failure -Continue goal-directed therapy -Ongoing outpatient follow-up with cardiology as recommended -Patient was seen preoperatively for cardiac clearance -Echocardiogram on 01/19/2024 shows an EF of 45% with mild global hypokinesis of the LV, negative bubble study and right ventricular systolic pressure of 34 mmHg -Has upcoming cardiology follow-up planned for July ARASELI -Patient does not wear CPAP and is not willing to do so History of stroke -Continue home aspirin -Continue ongoing modifications of secondary risk factors Obesity -BMI is 36.2 -Complicates treatment, prognosis, outcomes DVT prophylaxis -Per primary service Charges/Coding Visit Charges Inpatient E&M: 91008 Subs Hosp L2
[2024-06-22] MEDS: Atorvastatin Calcium 20 MG Tablet PO (21:37)
[2024-06-22] MEDS: Senna/Docusate Sodium 1 Tablet 2 TABLET PO (21:37)
[2024-06-22] MEDS: cloNIDine HCl 0.2 MG Tablet PO (21:37)
[2024-06-22] MEDS: Tamsulosin HCl 0.4 MG Capsule PO (21:37)
[2024-06-22] MEDS: Calcium Carbonate 500 MG Tablet PO (23:17)
[2024-06-23] VITALS (10 sets, daily range): BP systolic 118–158; BP diastolic 63–74; PULSE 77–85; RESP 16–20; TEMP 36.6–37.1; O2SAT 93–97
[2024-06-23] MEDS: oxyCODONE 5 MG Tablet PO ×4 (03:32→21:05)
[2024-06-23] MEDS: Calcium Carbonate 500 MG Tablet PO (03:32)
[2024-06-23] MEDS: Ondansetron 4 MG/2 ML Vial IV (06:10)
[2024-06-23] MEDS: Acetaminophen 500 MG Tablet 1000 MG PO ×3 (06:11→21:07)
[2024-06-23] MEDS: Carbidopa/Levodopa 25/100 Tablet PO ×2 (06:12→11:07)
[2024-06-23] MEDS: Cefazolin 2 GM in 0.9% Normal Saline (100mL Bag) 100 ML IV (06:15)
[2024-06-23 06:55] LABS: Hematocrit 37.1 % (40-54); Hemoglobin 12.1 g/dL (13.0-16.5); Mean Corp Hgb Conc 32.6 g/dL (32-36); Mean Corpuscular Hgb 30.3 pg (27.0-32.0); Mean Platelet Vol. 9.3 fl (6.2-12.0); Platelet Count 328 K/mm3 (150-450); RBC Distribution Width CV 12.3 % (11.6-14.6); RBC Distribution Width SD 42.3 fl (35.1-43.9); Red Blood Count 3.99 M/mm3 (4.6-6.2); White Blood Count 18.3 K/mm3 (4.4-11.0)
[2024-06-23 07:20] LABS: Anion Gap 9 (5-15); BUN 33 mg/dL (7-18); BUN/Creat Ratio 18.1 RATIO (10-20); Calcium,Total 9.8 mg/dL (8.5-10.1); Chloride 102 mmol/L (98-107); Creatinine, Serum 1.82 mg/dL (0.70-1.30); EST Glomerular Filtration Rate 40 mL/min (>60); Est Glom Filt Rate - Afr Amer 48 mL/min (>60); Estimated Creatinine Clearance 49.06 ml/min; Glucose 180 mg/dL (74-106); Potassium 4.6 mmol/L (3.5-5.1); Sodium Level 135 mmol/L (136-145)
--- NOTE | 2024-06-23 08:36 | PCM.PN.ORT ---
Subjective Subjective Patient seen and examined he states he is doing okay however his family has many concerns. He states his pain is controlled he feels like he is not confused he denies chest pain shortness of breath fevers chills he did have emesis this morning but feels okay now. He complains of the bottom of his feet being very itchy however this was present preoperatively and is believed to be neuropathic. He was seen by physical therapy but did only get to the edge of the bed. The family took this as he did not get therapy yesterday. Objective Data Objective Data Vital Signs: Vital Signs Temp Pulse Resp BP Pulse Ox O2 Del Method O2 Flow Rate 98.8 F 79 20 H 158/68 H 95 Nasal Cannula 2 06/23/24 03:31 06/23/24 03:31 06/23/24 03:31 06/23/24 03:31 06/23/24 08:20 06/23/24 08:20 06/23/24 08:20 Oxygen Flow Rate (L/min) 2 Oxygen Delivery Method Nasal Cannula Weight: 245 lb Body Mass Index (BMI) 36.1 Intake & Output: Intake and Output for Last 24 Hours 06/21/24 06/22/24 06/23/24 23:59 23:59 23:59 Intake Total 2972.75 / 2972.75 110 / 110 Output Total 1025 / 1025 1050 / 1050 Balance 1947.75 / 1947.75 -940 / -940 Lab / Micro Data 06/23/24 06:17 06/23/24 06:17 Labs: Laboratory Results - last 24 hr 06/22/24 09:12: POC Glucose 154 H 06/22/24 09:21: Blood Type Cancelled, Antibody Screen Cancelled 06/22/24 10:15: Blood Type O POSITIVE, Antibody Screen NEGATIVE 06/23/24 06:17: WBC 18.3 H, RBC 3.99 L, Hgb 12.1 L, Hct 37.1 L, MCV 93.0, MCH 30.3, MCHC 32.6, RDW Std Deviation 42.3, RDW Coeff of Mario 12.3, Plt Count 328, MPV 9.3, Sodium 135 L, Potassium 4.6, Chloride 102, Carbon Dioxide 24.0, Anion Gap 9, BUN 33 H, Creatinine 1.82 H, Estim Creat Clear Calc 49.06, Est GFR (MDRD) Af Amer 48 L, Est GFR (MDRD) Non-Af 40 L, BUN/Creatinine Ratio 18.1, Glucose 180 H, Calcium 9.8 Micro: Microbiology 05/27/24 07:45 Swab (Method) Nasal Screen MRSA/MSSA - Final Radiography Diagnostic Testing: Radiology Impression Knee X-Ray 06/22/24 13:20 IMPRESSION: New postoperative changes related to left total knee arthroplasty. Electronically Signed: Min Zelaya MD at 13:36 EDT , Physical Exam Const no apparent distress Constitutional Narrative: He does know where he is and who I am however he does not recall the year. General Appearance: cooperative Extremity Extremity Narrative: Left knee dressing clean dry intact compartments soft neurovascular intact EHL tibialis anterior gastrocsoleus intact sensation light touch palpable pedal pulse I do not appreciate any rash or skin irritation on the bottom of his foot the dorsum of his foot or in between his toes this is a chronic bilateral finding that he has had before surgery that is most likely neuropathic Assessment & Plan Assessment/Plan (1) S/P total knee arthroplasty: QUALIFIERS: Laterality: left Qualified Code(s): Z96.652 - Presence of left artificial knee joint PLAN: Plan Postop day #1 left total knee arthroplasty PT OT weightbearing as tolerated encourage knee range of motion patient is to assist right now he is going to need extended care before returning home he also has some confusion at baseline but is slightly worsened. DVT prophylaxis SCDs NOLVIA tyson Eliquis 2.5 mg twice daily for 2 weeks postop Case management is consulted for DC planning appreciate hospitalist input on COVID medical management
--- NOTE | 2024-06-23 08:43 | NURSING ---
family voices frustration with pt no getting his home GERD med although, none is listed on his home med list or at outpt pharmacies , none of the 3 visitors in room can give a name to the med he takes for GERD at this time, the pt that takes care of his meds is sleeping and they do not want to wake her at this time, this nurse sent text to Dr Vivar with a request for this type med-also updated on pt inability to void and has been st. cath x2-
--- NOTE | 2024-06-23 09:09 | CASEMGMT ---
Discharge Planning A list of SNF providers including quality and resource use data and consistent with the patient's preferred geographic region, medical needs, and insurance network was created in [employer] Guide.? This list was provided to the SW. Alma Tompkins Discharge Planning Asst.
[2024-06-23] MEDS: Aspirin E.C. 81 MG Tablet PO (09:16)
[2024-06-23] MEDS: APIXABAN 2.5 MG TABLET (WCH) PO ×2 (09:16→21:06)
--- NOTE | 2024-06-23 09:36 | NURSING ---
therapy in working with pt, pt has been given GERD med protonix, flomax for urine flow, family is still at bedside
--- NOTE | 2024-06-23 10:32 | CASEMGMT ---
Social Work- SW met with pt and pt dtrs. Pt is agreeable to additional therapy; prefers a rehab/TCU. A list of SNF providers including quality and resource use data and consistent with the patient?s preferred geographic region, medical needs, and insurance network were provided from the [employer] Guide. SW also provided medical alert information. Pt FOC would be [facility] d/t location near dtr home. SELAM advised that referral can be made. [facility] will continue to follow. ALPA Walters
--- NOTE | 2024-06-23 10:47 | CASEMGMT ---
Addendum entered by Alma Tompkins 06/24/24 10:04: [facility] I requested (again) that precert be submitted today. Updates sent via [facility] Alma Tompkins DC Planning Asst. Addendum entered by Alma Tompkins 06/23/24 12:40: [facility] has accepted and will submit for precert. Alma Tompkins DC Planning Asst. Original Note: Discharge Planning Referral sent to [facility]. Alma Tompkins DC Planning Asst.
[2024-06-23] MEDS: hydroCHLOROthiazide 12.5mg 12.5 MG PO (11:06)
[2024-06-23] MEDS: Lisinopril 20 MG Tablet PO (11:07)
[2024-06-23] MEDS: amLODIPine 10 MG Tablet PO (11:08)
[2024-06-23] MEDS: Pantoprazole Sodium 40 MG Tablet PO (11:08)
[2024-06-23] MEDS: Empagliflozin 25 MG Tablet PO (11:09)
[2024-06-23] MEDS: Spironolactone 25 MG Tablet PO (11:09)
[2024-06-23] MEDS: cloNIDine HCl 0.2 MG Tablet PO ×2 (11:10→21:06)
--- NOTE | 2024-06-23 14:14 | PN_ITS ---
Subjective Subjective Patient seen and examined. His 2 daughters were by his bedside. He is postop day 1 for right knee total arthroplasty. Patient still complains of some pain at his right knee. He denies any fever or chills, palpitations, dizziness, nausea or vomiting. Review of systems otherwise negative. Objective Data Objective Data Vital Signs: Vital Signs Temp Pulse Resp BP Pulse Ox O2 Del Method O2 Flow Rate 98.1 F 81 18 147/71 H 94 Room Air 2 06/23/24 11:35 06/23/24 11:35 06/23/24 11:35 06/23/24 11:35 06/23/24 11:35 06/23/24 11:35 06/23/24 08:57 Oxygen Flow Rate (L/min) 2 Oxygen Delivery Method Room Air Weight: 245 lb Body Mass Index (BMI) 36.1 Intake & Output: Intake and Output for Last 24 Hours 06/21/24 06/22/24 06/23/24 23:59 23:59 23:59 Intake Total 2972.75 / 2972.75 110 / 110 Output Total 1025 / 1025 1050 / 1050 Balance 1947.75 / 1947.75 -940 / -940 Lab / Micro Data 06/23/24 06:17 06/23/24 06:17 Labs: Laboratory Results - last 24 hr 06/23/24 06:17: WBC 18.3 H, RBC 3.99 L, Hgb 12.1 L, Hct 37.1 L, MCV 93.0, MCH 30.3, MCHC 32.6, RDW Std Deviation 42.3, RDW Coeff of Mario 12.3, Plt Count 328, MPV 9.3, Sodium 135 L, Potassium 4.6, Chloride 102, Carbon Dioxide 24.0, Anion Gap 9, BUN 33 H, Creatinine 1.82 H, Estim Creat Clear Calc 49.06, Est GFR (MDRD) Af Amer 48 L, Est GFR (MDRD) Non-Af 40 L, BUN/Creatinine Ratio 18.1, Glucose 180 H, Calcium 9.8 Micro: Microbiology 05/27/24 07:45 Swab (Method) Nasal Screen MRSA/MSSA - Final Physical Exam Const alert, oriented x3 and no apparent distress General Appearance: cooperative and well developed HEENT normocephalic, head/scalp atraumatic and moist oral mucous membranes Eyes PERRL and EOMs intact bilaterally Neck no lymphadenopathy and supple Lymph Lymphatic: no lymphadenopathy noted, no lymphedema noted and lymphedema Resp Resp Narrative: mildly diminished breath sounds bibasally, no wheezes or crackles. On 2L of oxygen by nasal canula. Cardio regular rate, regular rhythm, S1 normal heart sound, S2 normal heart sound and no murmurs GI normal to inspection, nondistended, normoactive bowel sounds, soft to palpation, non-tender and non-distended Extremity Extremity Narrative: intact dressing over right knee. Skin Skin Narrative: as under extremity Neuro CN's II-XII intact bilaterally, no focal motor deficits and deep tendon reflexes 2+ bilaterally Motor Exam: general weakness Psych thought process normal, cooperative and affect normal Appearance: appropriate Assessment & Plan Assessment/Plan (1) S/P total knee arthroplasty: QUALIFIERS: Laterality: left Qualified Code(s): Z96.652 - Presence of left artificial knee joint (2) Essential hypertension: PLAN: Plan #Right knee osteoarthritis * s/p right total knee arthroplasty. Today is POD 1. * pain management as per primary service orthopedics * PT'/OT on board * fall precuations * #TYpe 2 diabetes mellitus * on 1800 cardiac diet * ISS. Accuchecks ACHS. A1C is 6.8 * hold Jardiance due to YUMIKO * #Parkinson's disease * on levodopa carbidopa. * follow up with neurology on outpatient basis * #HfpEF * has known EF of 65%, wiith mild global hypokinesis of hte LV. * on lasix. Not in exacerbation. * hold lasix due to YUMIKO. * hold spironolactone and lisinopril. * #YUMIKO * patient's Cr is 1.82. It is unclear what his true baseline is. Cr was 1.65 on admission, and Cr from 05/20/2023 was 1.05. * hold lasix and hydrate very gently with IVF NS @ 125cc/hr and trend Cr. * #Hypertension: hold HCTZ and spironolactone as well as lisinopril due to YUMIOK. #ARASELI: stable. #History of CVA: on aspirin and statin. DVT prophylaxis: as per primary service orthopedics, to be on eliquis 2.5mg bid and NOLVIA tyson SCDs Charges/Coding Visit Charges Inpatient E&M: 30748 Subs Hosp L3
--- NOTE | 2024-06-23 15:56 | CASEMGMT ---
Discharge Planning A list of?SNF providers including quality and resource use data and consistent with the patient's preferred geographic region ([place] [address]), medical needs, and insurance network was created in [employer] Guide.? This list was provided to the SW. Alma Tompkins Discharge Planning Asst.
--- NOTE | 2024-06-23 16:36 | CASEMGMT ---
Social Work- completed directives naming pt dtr Carmina and Hilary and Rayshawn as POA. Copies given to agents and placed on chart. Original pprovided to pt. Contacts updated. ALPA Walters
--- NOTE | 2024-06-23 16:40 | CASEMGMT ---
Social Work- SW conducted BIMS prior to completion of POA. Pt scored 15. ALPA Walters
[2024-06-23] MEDS: 0.9% Normal Saline (1000mL) 1,000 ML 75 ML IV (17:00)
[2024-06-23] MEDS: Senna/Docusate Sodium 1 Tablet 2 TABLET PO (21:05)
[2024-06-23] MEDS: Tamsulosin HCl 0.4 MG Capsule PO (21:06)
[2024-06-23] MEDS: Atorvastatin Calcium 20 MG Tablet PO (21:07)
[2024-06-24] MEDS: Ondansetron 4 MG/2 ML Vial IV (06:07)
[2024-06-24] MEDS: Acetaminophen 500 MG Tablet 1000 MG PO ×3 (06:07→20:36)
[2024-06-24] MEDS: Carbidopa/Levodopa 25/100 Tablet PO ×3 (06:07→14:11)
[2024-06-24] MEDS: Calcium Carbonate 500 MG Tablet PO (06:16)
[2024-06-24 06:22] VITALS: BP 151/68; PULSE 81; RESP 17; TEMP 36.7; O2SAT 97
[2024-06-24 07:07] LABS: Hematocrit 34.9 % (40-54); Hemoglobin 11.4 g/dL (13.0-16.5); Mean Corp Hgb Conc 32.7 g/dL (32-36); Mean Corpuscular Hgb 30.2 pg (27.0-32.0); Mean Corpuscular Volume 92.6 fL (80-94); Mean Platelet Vol. 9.2 fl (6.2-12.0); Platelet Count 323 K/mm3 (150-450); RBC Distribution Width CV 12.5 % (11.6-14.6); RBC Distribution Width SD 42.5 fl (35.1-43.9); Red Blood Count 3.77 M/mm3 (4.6-6.2); White Blood Count 17.1 K/mm3 (4.4-11.0)
[2024-06-24 07:34] LABS: Anion Gap 11 (5-15); BUN 34 mg/dL (7-18); Calcium,Total 9.6 mg/dL (8.5-10.1); Chloride 103 mmol/L (98-107); Creatinine, Serum 1.79 mg/dL (0.70-1.30); EST Glomerular Filtration Rate 41 mL/min (>60); Est Glom Filt Rate - Afr Amer 49 mL/min (>60); Estimated Creatinine Clearance 49.88 ml/min; Glucose 119 mg/dL (74-106); Potassium 3.9 mmol/L (3.5-5.1); Sodium Level 137 mmol/L (136-145)
[2024-06-24] MEDS: cloNIDine HCl 0.2 MG Tablet PO ×2 (07:50→20:37)
[2024-06-24] MEDS: amLODIPine 10 MG Tablet PO (07:50)
[2024-06-24] MEDS: APIXABAN 2.5 MG TABLET (WCH) PO ×2 (07:51→20:36)
[2024-06-24] MEDS: Senna/Docusate Sodium 1 Tablet 2 TABLET PO ×2 (07:51→20:37)
[2024-06-24] MEDS: Pantoprazole Sodium 40 MG Tablet PO (07:52)
[2024-06-24 08:17] VITALS: O2SAT 94
[2024-06-24] MEDS: oxyCODONE 5 MG Tablet PO ×2 (11:32→20:41)
[2024-06-24 11:38] VITALS: BP 144/78; PULSE 94; RESP 18; TEMP 36.6; O2SAT 95
--- NOTE | 2024-06-24 13:11 | PN_ITS ---
Subjective Subjective Patient seen and examined. His daughter and his significant other were by his bedside. Patient complained of some pain but rated about 7/10. He denies any fever or chills and denies any shortness of breath. He is on room air. Daughter is concerned that patient is a bit anxious. Patient states he feels like his abdomen is bloated. He has not had a bowel movement since Thursday. Review of systems otherwise negative. # Main hemodynamically stable. Objective Data Objective Data Vital Signs: Vital Signs Temp Pulse Resp BP Pulse Ox O2 Del Method O2 Flow Rate 97.9 F 94 18 144/78 H 95 Room Air 2 06/24/24 11:38 06/24/24 11:38 06/24/24 11:38 06/24/24 11:38 06/24/24 11:38 06/24/24 11:38 06/24/24 08:17 Oxygen Flow Rate (L/min) 2 Oxygen Delivery Method Room Air Weight: 245 lb Body Mass Index (BMI) 36.1 Intake & Output: Intake and Output for Last 24 Hours 06/22/24 06/23/24 06/24/24 23:59 23:59 23:59 Intake Total 2972.75 / 2972.75 1460 / 1460 1600 / 1600 Output Total 1025 / 1025 2775 / 2775 1225 / 1225 Balance 1947.75 / 1947.75 -1315 / -1315 375 / 375 Lab / Micro Data 06/24/24 06:27 06/24/24 06:27 Labs: Laboratory Results - last 24 hr 06/24/24 06:27: WBC 17.1 H, RBC 3.77 L, Hgb 11.4 L, Hct 34.9 L, MCV 92.6, MCH 30.2, MCHC 32.7, RDW Std Deviation 42.5, RDW Coeff of Mario 12.5, Plt Count 323, MPV 9.2, Sodium 137, Potassium 3.9, Chloride 103, Carbon Dioxide 23.0, Anion Gap 11, BUN 34 H, Creatinine 1.79 H, Estim Creat Clear Calc 49.88, Est GFR (MDRD) Af Amer 49 L, Est GFR (MDRD) Non-Af 41 L, BUN/Creatinine Ratio 19.0, Glucose 119 H, Calcium 9.6 Micro: Microbiology 05/27/24 07:45 Swab (Method) Nasal Screen MRSA/MSSA - Final Physical Exam Const alert, oriented x3, no apparent distress, healthy appearing and well nourished; Negative for average body habitus General Appearance: cooperative and well developed HEENT normocephalic, head/scalp atraumatic and moist oral mucous membranes Eyes PERRL and EOMs intact bilaterally Neck no lymphadenopathy and supple Lymph Lymphatic: no lymphadenopathy noted, no lymphedema noted and lymphedema Resp normal respiratory effort, no retractions, no use of accessory muscles and clear to auscultation bilaterally Auscultation: Negative for rales, rhonchi or wheezes Cardio regular rate, regular rhythm, S1 normal heart sound, S2 normal heart sound, no murmurs, no rub, no gallops and no clicks GI normal to inspection, nondistended, normoactive bowel sounds, soft to palpation, non-tender and non-distended GI Narrative: obese abdomen Extremity no clubbing, cyanosis or edema Extremity Narrative: intact dressing over right knee. Skin Skin Narrative: as under extremity Neuro oriented x3, CN's II-XII intact bilaterally, moves all extremities, no focal motor deficits and deep tendon reflexes 2+ bilaterally Speech: speech normal Motor Exam: general weakness Psych thought process normal, cooperative and affect normal Appearance: appropriate Assessment & Plan Assessment/Plan (1) S/P total knee arthroplasty: QUALIFIERS: Laterality: left Qualified Code(s): Z96.652 - Presence of left artificial knee joint (2) Essential hypertension: PLAN: Plan #Right knee osteoarthritis * s/p right total knee arthroplasty. Today is POD 2. * pain management as per primary service orthopedics * PT'/OT on board * fall precuations * #TYpe 2 diabetes mellitus * on 1800 cardiac diet * ISS. Accuchecks ACHS. A1C is 6.8 * hold Jardiance due to YUMIKO * #Parkinson's disease * on levodopa carbidopa. * follow up with neurology on outpatient basis * #HfpEF * has known EF of 65%, wiith mild global hypokinesis of hte LV. * on lasix. Not in exacerbation. * hold lasix due to YUMIKO. * hold spironolactone and lisinopril. * #YUMIKO * patient's Cr is slightly down to 1.79 from 1.82. * It is unclear what his true baseline is. Cr was 1.65 on admission, and Cr from 05/20/2023 was 1.05. * hold lasix and continue to hydrate very gently with IVF NS @ 125cc/hr and trend Cr. * #Constipation: will give tap water enema today as he has not had a bowel movement in 4 days. #ANxiety: Daughter concerned patient is very anxious. Will add on p.o. Ativan 1 mg every 6 hours as needed to help with anxiety. #Hypertension: hold HCTZ and spironolactone as well as lisinopril due to YUMIKO. #ARASELI: stable. #History of CVA: on aspirin and statin. DVT prophylaxis: as per primary service orthopedics, to be on eliquis 2.5mg bid and NOLVIA tyson SCDs Charges/Coding Visit Charges Inpatient E&M: 35135 Subs Hosp L2
--- NOTE | 2024-06-24 13:30 | CASEMGMT ---
Social Work- SW met with pt dtr to provide updates. Precert has been submitted. ref# [id number].? SW will continue to follow and provide updates. ALPA Walters
[2024-06-24] MEDS: Tamsulosin HCl 0.4 MG Capsule PO ×2 (14:10→20:36)
[2024-06-24 14:19] VITALS: BP 131/71; PULSE 80; RESP 18; TEMP 36.7; O2SAT 95
--- NOTE | 2024-06-24 14:26 | PCM.PN.ORT ---
Subjective Subjective seen and examined. doing ok. Pain controlled denies fevers chills nausea vomit shortness of breath or chest pain still having severe itching on his feet. Requesting gabapentin. He is ambulating better today with physical therapy 1 assist. Objective Data Objective Data Vital Signs: Vital Signs Temp Pulse Resp BP Pulse Ox O2 Del Method O2 Flow Rate 98.0 F 80 18 131/71 H 95 Room Air 2 06/24/24 14:06/24/24 14:06/24/24 14:06/24/24 14:06/24/24 14:06/24/24 14:06/24/24 08:17 Oxygen Flow Rate (L/min) 2 Oxygen Delivery Method Room Air Weight: 245 lb Body Mass Index (BMI) 36.1 Intake & Output: Intake and Output for Last 24 Hours 06/22/24 06/23/24 06/24/24 23:59 23:59 23:59 Intake Total 2972.75 / 2972.75 1460 / 1460 1600 / 1600 Output Total 1025 / 1025 2775 / 2775 1225 / 1225 Balance 1947.75 / 1947.75 -1315 / -1315 375 / 375 Lab / Micro Data 06/24/24 06:27 06/24/24 06:27 Labs: Laboratory Results - last 24 hr 06/24/24 06:27: WBC 17.1 H, RBC 3.77 L, Hgb 11.4 L, Hct 34.9 L, MCV 92.6, MCH 30.2, MCHC 32.7, RDW Std Deviation 42.5, RDW Coeff of Mario 12.5, Plt Count 323, MPV 9.2, Sodium 137, Potassium 3.9, Chloride 103, Carbon Dioxide 23.0, Anion Gap 11, BUN 34 H, Creatinine 1.79 H, Estim Creat Clear Calc 49.88, Est GFR (MDRD) Af Amer 49 L, Est GFR (MDRD) Non-Af 41 L, BUN/Creatinine Ratio 19.0, Glucose 119 H, Calcium 9.6 Micro: Microbiology 05/27/24 07:45 Swab (Method) Nasal Screen MRSA/MSSA - Final Physical Exam Const alert and oriented x3 Constitutional Narrative: He does know where he is and who I am however he does not recall the year. General Appearance: cooperative Extremity Extremity Narrative: Left knee dressing clean dry intact compartments soft neurovascular intact EHL tibialis anterior gastrocsoleus intact sensation light touch palpable pedal pulse I do not appreciate any rash or skin irritation on the bottom of his foot the dorsum of his foot or in between his toes this is a chronic bilateral finding that he has had before surgery that is most likely neuropathic Assessment & Plan Assessment/Plan (1) S/P total knee arthroplasty: QUALIFIERS: Laterality: left Qualified Code(s): Z96.652 - Presence of left artificial knee joint PLAN: Plan Postop day #2 left total knee arthroplasty PT OT weightbearing as tolerated encourage knee range of motion Awaiting pre-CERT extended care before returning home requesting trial of gabapentin. We will start 100 mg 3 times daily. DVT prophylaxis SCDs NOLVIA tyson Eliquis 2.5 mg twice daily for 2 weeks postop Case management is consulted for DC planning appreciate hospitalist input on COVID medical management DC when bed available.
--- NOTE | 2024-06-24 14:29 | DCINST_ITS ---
Discharge Instructions Diet Discharge Diet: No restrictions Activity Weight Bearing Status: Full weight bearing Dressing / Incision Call your doctor if you observe: Shortness of breath and Chest pain Additional Dressing/Incision Instructions:: Ice and elevate lower extremities 2 weeks while not ambulating. Ambulation is encouraged. Weight bearing as tolerated. Use assistive devise for stability. Encourage FULL knee extension and flexion 1 time EVERY time you get up and down and MULTIPLE times per day. No showering until 72 hours after surgery. Begin showering postop day #3. Remove the dressing prior to shower and gently wash with warm water and antibacterial soap then pat dry and place abdominal pad (or plain gauze) and NOLVIA hose over top. This is to be done daily. Do not submerge for 3 weeks. If not showering daily after the initial 72 hours then you must clean incision and change dressing daily. Do not allow animals near the incision area. Keep clean. Follow anti-coagulation recommendations as prescribed. Do not take any NSAIDs while on blood thinner. Do not take any additional narcotic pain medication other than what was prescribed on your surgery day without discussing with physician. Narcotic medication can be addictive. Do not drink alcohol while taking narcotics. Supplement narcotic prescription with acetaminophen 1000 mg 4 times a day. Start physical therapy. If you are not currently scheduled for physical therapy or you are unsure of appointment time please call office [facility] to arrange. Call Dr. Ge with any concerns. Follow Up Care Please Follow Up With: Mac Ge DO When: 2 weeks Test Results: Test results from this visit will be discussed in further detail at your follow- up appointment, if applicable. Discharge Plan Admission Admit Date/Time: 06/22/24 13:12 Primary Reason for Your Visit: left total knee Attending Provider: Mac Ge Consulting Providers: Mishel Vivar Discharge Orders/Prescriptions Prescriptions: New gabapentin 100 mg Capsule 100 mg PO TIDCM PRN (Reason: foot restlessness/itching/burn) Qty: 60 0RF oxycodone 5 mg Tablet 5 - 10 mg PO Q4H PRN PRN (Reason: Pain Score 4-10) 7 Days Qty: 60 0RF Eliquis 5 mg Tablet 2.5 mg PO BID Qty: 28 0RF acetaminophen 500 mg Tablet 1,000 mg PO Q8 Qty: 90 0RF Continued aspirin 81 mg tablet,delayed release (DR/EC) 81 mg PO DAILY spironolactone 25 mg tablet 25 mg PO QDAY dapagliflozin propanediol 10 mg tablet 10 mg PO DAILY carbidopa-levodopa 25-100 mg tablet 1 tab PO TID atorvastatin [Lipitor] 10 mg tablet 20 mg PO QHS tamsulosin 0.4 mg capsule 0.4 mg PO QHS Qty: 90 0RF citalopram 40 mg tablet 40 mg PO DAILY Qty: 90 1RF amlodipine 10 mg tablet 10 mg PO DAILY Qty: 90 1RF clonidine HCl 0.2 mg tablet 0.2 mg PO BID Qty: 180 1RF lisinopril-hydrochlorothiazide 20-12.5 mg tablet 1 tab PO DAILY Qty: 90 0RF Referrals / Follow Up: Allyson Soler MD [Med Staff - Active Staff] -
--- NOTE | 2024-06-24 14:36 | TREXTCAR_ITS ---
Diet Diet Order/Speech Therapy: 06/22/24 17:49 Diet: Regular - General Wound(s) L KNEE: Wound Type: Surgical Incision Therapies Weight Bearing: Full weight bearing Problem/Diagnosis (1) S/P total knee arthroplasty: Status: Acute Code(s): Z96.659 - Presence of unspecified artificial knee joint Plan Postop day #2 left total knee arthroplasty PT OT weightbearing as tolerated encourage knee range of motion Awaiting pre-CERT extended care before returning home requesting trial of gabapentin. We will start 100 mg 3 times daily. DVT prophylaxis SCDs NOLVIA hose Eliquis 2.5 mg twice daily for 2 weeks postop Case management is consulted for DC planning appreciate hospitalist input on COVID medical management DC when bed available. Allergies/Procedures Done in Hospital Allergies acetaminophen (From Vicodin) Allergy (Intermediate, Verified 06/22/24 09:04) Nausea/Vom/Diarrhea hydrocodone (From Vicodin) Allergy (Intermediate, Verified 06/22/24 09:04) Nausea/Vom/Diarrhea tramadol Allergy (Intermediate, Verified 06/22/24 09:04) Nausea/Vom/Diarrhea Type of Care/Length of Stay Estimated LOS: Convalescent Care Less Than 30 days Type of Care Needed: Skilled Rehab Potential: Good Prognosis: Good Additional Orders/Day of Discharge Day of Discharge: 06/24/24 Follow Up Care Please Follow Up With: Mac Ge DO When: 2 weeks Discharge Plan Admission Admit Date/Time: 06/22/24 13:12 Primary Reason for Your Visit: left total knee Attending Provider: Mac Ge Consulting Providers: Mishel Vivar Discharge Orders/Prescriptions Prescriptions: New gabapentin 100 mg Capsule 100 mg PO TIDCM PRN (Reason: foot restlessness/itching/burn) Qty: 60 0RF oxycodone 5 mg Tablet 5 - 10 mg PO Q4H PRN PRN (Reason: Pain Score 4-10) 7 Days Qty: 60 0RF Eliquis 5 mg Tablet 2.5 mg PO BID Qty: 28 0RF acetaminophen 500 mg Tablet 1,000 mg PO Q8 Qty: 90 0RF Continued aspirin 81 mg tablet,delayed release (DR/EC) 81 mg PO DAILY spironolactone 25 mg tablet 25 mg PO QDAY dapagliflozin propanediol 10 mg tablet 10 mg PO DAILY carbidopa-levodopa 25-100 mg tablet 1 tab PO TID atorvastatin [Lipitor] 10 mg tablet 20 mg PO QHS tamsulosin 0.4 mg capsule 0.4 mg PO QHS Qty: 90 0RF citalopram 40 mg tablet 40 mg PO DAILY Qty: 90 1RF amlodipine 10 mg tablet 10 mg PO DAILY Qty: 90 1RF clonidine HCl 0.2 mg tablet 0.2 mg PO BID Qty: 180 1RF lisinopril-hydrochlorothiazide 20-12.5 mg tablet 1 tab PO DAILY Qty: 90 0RF Referrals / Follow Up: Allyson Soler MD [Med Staff - Active Staff] - Disposition Disposition (needs filled in before D/C Order can be placed): Senior Living Facility (1) S/P total knee arthroplasty Qualifiers: Laterality: left Qualified Code(s): Z96.652 - Presence of left artificial knee joint
[2024-06-24 20:30] VITALS: BP 124/71; PULSE 77; RESP 18; TEMP 36.9; O2SAT 96
[2024-06-24] MEDS: Atorvastatin Calcium 20 MG Tablet PO (20:37)
[2024-06-25 03:29] VITALS: BP 116/72; PULSE 70; RESP 18; TEMP 36.7; O2SAT 95
[2024-06-25 05:07] LABS: Hematocrit 32.7 % (40-54); Hemoglobin 10.5 g/dL (13.0-16.5); Mean Corp Hgb Conc 32.1 g/dL (32-36); Mean Corpuscular Hgb 30.5 pg (27.0-32.0); Mean Corpuscular Volume 95.1 fL (80-94); Mean Platelet Vol. 9.2 fl (6.2-12.0); Platelet Count 268 K/mm3 (150-450); RBC Distribution Width CV 12.6 % (11.6-14.6); RBC Distribution Width SD 43.9 fl (35.1-43.9); Red Blood Count 3.44 M/mm3 (4.6-6.2); White Blood Count 12.9 K/mm3 (4.4-11.0)
[2024-06-25 05:44] LABS: Anion Gap 5 (5-15); BUN 35 mg/dL (7-18); Calcium,Total 9.6 mg/dL (8.5-10.1); Chloride 101 mmol/L (98-107); Creatinine, Serum 1.59 mg/dL (0.70-1.30); EST Glomerular Filtration Rate 47 mL/min (>60); Est Glom Filt Rate - Afr Amer 56 mL/min (>60); Estimated Creatinine Clearance 56.15 ml/min; Glucose 119 mg/dL (74-106); Potassium 3.9 mmol/L (3.5-5.1); Sodium Level 134 mmol/L (136-145)
[2024-06-25] MEDS: oxyCODONE 5 MG Tablet PO ×2 (06:27→12:06)
[2024-06-25] MEDS: Acetaminophen 500 MG Tablet 1000 MG PO ×3 (06:27→20:29)
[2024-06-25] MEDS: Carbidopa/Levodopa 25/100 Tablet PO ×3 (06:28→17:25)
[2024-06-25 06:37] VITALS: BP 138/71; PULSE 74; RESP 18; TEMP 36.6; O2SAT 94
[2024-06-25 07:13] VITALS: O2SAT 94
[2024-06-25 09:15] VITALS: BP 122/68; PULSE 89; RESP 18; TEMP 36.9; O2SAT 95
[2024-06-25] MEDS: Aspirin E.C. 81 MG Tablet PO (09:25)
[2024-06-25] MEDS: amLODIPine 10 MG Tablet PO (09:26)
[2024-06-25] MEDS: Pantoprazole Sodium 40 MG Tablet PO (09:26)
[2024-06-25] MEDS: cloNIDine HCl 0.2 MG Tablet PO ×2 (09:26→20:28)
[2024-06-25] MEDS: Senna/Docusate Sodium 1 Tablet 2 TABLET PO ×2 (09:26→20:29)
[2024-06-25] MEDS: APIXABAN 2.5 MG TABLET (WCH) PO ×2 (09:26→20:28)
--- NOTE | 2024-06-25 10:07 | CASEMGMT ---
Addendum entered by Sol Quiñonez 06/25/24 12:07: Social Work SW spoke w/Lili from [facility], attained the best phone and fax for the weekend, Lili states will call [facility] if they get precert on the weekend for [facility] rehab. SW placed a green sheet and transport forms on the chart in the event precert is attained on the weekend. LIBRADO Enriquez Original Note: Social Work SW reached out to [facility] via [facility] requesting they contact SW via [facility] if they hear back today, if it's tomorrow to call the floor directly. SW waiting to hear back on phone and fax numbers in the event pt is ready on the weekend, to put on the green sheet. SW spoke w/daughter Carmina and pt in room in regard to precert, explained that we are still waiting, there's a chance we may hear this weekend but if not, hopefully by Thursday. SW did explain to them there is a chance insurance will not authorize acute rehab and will say pt's needs can be met at a lower level of care. Daughter Carmina was aware of this, asked for a SNF list for [facility] should this happen. They plan to review and make choices in the event acute rehab is denied. SW provided to daughter a list via [facility] of intermediate facilities in network w/insurance, in [facility], and complete w/quality and resource use data, provided this to daughter along with a longer list from the insurance company website. SW explained to daughter if there is any place on the list from the [facility] that they do not have the quality information for on the [facility] list, SW can get them this information. Daughter states understanding. SW will continue to follow. SW will place green sheet on chart once SW hears back on phone and fax for the weekend from [facility]. LIBRADO Enriquez
--- NOTE | 2024-06-25 11:40 | PN_ITS ---
Subjective Subjective Patient seen and examined. His daughter was by her bedside. He said he was not able to sleep much overnight due to there being too much noise and activity on the floor. Daughter is wondering when he will be discharged. Review of systems is otherwise negative. Objective Data Objective Data Vital Signs: Vital Signs Temp Pulse Resp BP Pulse Ox O2 Del Method O2 Flow Rate 98.4 F 89 18 122/68 H 95 Room Air 2 06/25/24 09:15 06/25/24 09:15 06/25/24 09:15 06/25/24 09:15 06/25/24 09:15 06/25/24 09:22 06/24/24 08:17 Oxygen Flow Rate (L/min) 2 Oxygen Delivery Method Room Air Weight: 245 lb Body Mass Index (BMI) 36.1 Intake & Output: Intake and Output for Last 24 Hours 06/23/24 06/24/24 06/25/24 23:59 23:59 23:59 Intake Total 1460 / 1460 2100 / 2100 1226 / 1226 Output Total 2775 / 2775 1625 / 1625 600 / 600 Balance -1315 / -1315 475 / 475 626 / 626 Lab / Micro Data 06/25/24 04:25 06/25/24 04:25 Labs: Laboratory Results - last 24 hr 06/25/24 04:25: WBC 12.9 H, RBC 3.44 L, Hgb 10.5 L, Hct 32.7 L, MCV 95.1 H, MCH 30.5, MCHC 32.1, RDW Std Deviation 43.9, RDW Coeff of Mario 12.6, Plt Count 268, MPV 9.2, Sodium 134 L, Potassium 3.9, Chloride 101, Carbon Dioxide 28.0, Anion Gap 5, BUN 35 H, Creatinine 1.59 H, Estim Creat Clear Calc 56.15, Est GFR (MDRD) Af Amer 56 L, Est GFR (MDRD) Non-Af 47 L, BUN/Creatinine Ratio 22.0 H, Glucose 119 H, Calcium 9.6 Micro: Microbiology 05/27/24 07:45 Swab (Method) Nasal Screen MRSA/MSSA - Final Physical Exam Const alert, oriented x3, no apparent distress and well nourished General Appearance: cooperative and well developed HEENT normocephalic, head/scalp atraumatic and moist oral mucous membranes Eyes PERRL and EOMs intact bilaterally Neck no lymphadenopathy and supple Lymph Lymphatic: no lymphadenopathy noted, no lymphedema noted and lymphedema Resp normal respiratory effort, normal air movement, no retractions, no use of accessory muscles and clear to auscultation bilaterally Resp Narrative: on room air. Cardio regular rate, regular rhythm, S1 normal heart sound, S2 normal heart sound, no murmurs, no rub, no gallops and no clicks GI normal to inspection, nondistended, normoactive bowel sounds, soft to palpation, non-tender and non-distended GI Narrative: obese abdomen Extremity no clubbing, cyanosis or edema Extremity Narrative: intact dressing over right knee. Skin Skin Narrative: as under extremity Neuro oriented x3, CN's II-XII intact bilaterally, moves all extremities, no focal motor deficits and deep tendon reflexes 2+ bilaterally Speech: speech normal Motor Exam: general weakness Psych thought process normal, cooperative and affect normal Appearance: appropriate Assessment & Plan Assessment/Plan (1) S/P total knee arthroplasty: QUALIFIERS: Laterality: left Qualified Code(s): Z96.652 - Presence of left artificial knee joint (2) Essential hypertension: PLAN: Plan #Right knee osteoarthritis * s/p right total knee arthroplasty. Today is POD 3. * pain management as per primary service orthopedics * PT'/OT on board * fall precuations * #TYpe 2 diabetes mellitus * on 1800 cardiac diet * ISS. Accuchecks ACHS. A1C is 6.8 * hold Jardiance due to YUMIKO * #Parkinson's disease * on levodopa carbidopa. * follow up with neurology on outpatient basis * #HfpEF * has known EF of 65%, wiith mild global hypokinesis of hte LV. * on lasix. Not in exacerbation. * hold lasix due to YUMIKO. * hold spironolactone and lisinopril. * #YUMIKO * patient's Cr today is 1.59 and continues to trend downwards. * It is unclear what his true baseline is. Cr was 1.65 on admission, and Cr from 05/20/2023 was 1.05. * lasix on hold. encourage oral hydration. * #Constipation: resolved after receiving a tap water enema yesterday. #ANxiety: on ativan 1mg every 6 hours prn #Hypertension: hold HCTZ and spironolactone as well as lisinopril due to YUMIKO. #ARASELI: stable. #History of CVA: on aspirin and statin. DVT prophylaxis: as per primary service orthopedics, to be on eliquis 2.5mg bid and NOLVIA tyson SCDs Charges/Coding Visit Charges Inpatient E&M: 19627 Subs Hosp L2
[2024-06-25 14:00] VITALS: BP 120/61; PULSE 75; RESP 18; TEMP 36.6; O2SAT 96
[2024-06-25] MEDS: Tamsulosin HCl 0.4 MG Capsule PO ×2 (17:26→20:29)
--- NOTE | 2024-06-25 18:55 | PCM.PN.ORT ---
Subjective Subjective Seen and examined. Doing well pain controlled that he did better today with ambulation with therapy. No complaints or concerns awaiting placement Objective Data Objective Data Vital Signs: Vital Signs Temp Pulse Resp BP Pulse Ox O2 Del Method O2 Flow Rate 97.8 F 75 18 120/61 96 Room Air 2 06/25/24 14:00 06/25/24 14:00 06/25/24 14:00 06/25/24 14:00 06/25/24 14:00 06/25/24 15:23 06/24/24 08:17 Oxygen Flow Rate (L/min) 2 Oxygen Delivery Method Room Air Weight: 245 lb Body Mass Index (BMI) 36.1 Intake & Output: Intake and Output for Last 24 Hours 06/23/24 06/24/24 06/25/24 23:59 23:59 23:59 Intake Total 1460 / 1460 2100 / 2100 1446 / 1446 Output Total 2775 / 2775 1625 / 1625 1850 / 1850 Balance -1315 / -1315 475 / 475 -404 / -404 Lab / Micro Data 06/25/24 04:25 06/25/24 04:25 Labs: Laboratory Results - last 24 hr 06/25/24 04:25: WBC 12.9 H, RBC 3.44 L, Hgb 10.5 L, Hct 32.7 L, MCV 95.1 H, MCH 30.5, MCHC 32.1, RDW Std Deviation 43.9, RDW Coeff of Mario 12.6, Plt Count 268, MPV 9.2, Sodium 134 L, Potassium 3.9, Chloride 101, Carbon Dioxide 28.0, Anion Gap 5, BUN 35 H, Creatinine 1.59 H, Estim Creat Clear Calc 56.15, Est GFR (MDRD) Af Amer 56 L, Est GFR (MDRD) Non-Af 47 L, BUN/Creatinine Ratio 22.0 H, Glucose 119 H, Calcium 9.6 Micro: Microbiology 05/27/24 07:45 Swab (Method) Nasal Screen MRSA/MSSA - Final Physical Exam Const alert, oriented x3 and no apparent distress General Appearance: cooperative Orientation / Consciousness: Negative for confused Extremity Extremity Narrative: Left knee dressing clean dry intact compartments soft neurovascular intact EHL tibialis anterior gastrocsoleus intact sensation light touch palpable pedal pulse Assessment & Plan Assessment/Plan (1) S/P total knee arthroplasty: QUALIFIERS: Laterality: left Qualified Code(s): Z96.652 - Presence of left artificial knee joint PLAN: Plan Postop day #3 left total knee arthroplasty PT OT weightbearing as tolerated encourage knee range of motion Conley catheter management by medical team. DVT prophylaxis SCDs NOLVIA tyson Eliquis 2.5 mg twice daily for 2 weeks postop Case management is consulted for DC planning awaiting transfer. Orthopedically stable when bed available DC when bed available.
[2024-06-25 20:17] VITALS: BP 119/75; PULSE 81; RESP 16; TEMP 36.4; O2SAT 98
[2024-06-25] MEDS: Atorvastatin Calcium 20 MG Tablet PO (20:29)
[2024-06-25] MEDS: Ondansetron 4 MG/2 ML Vial IV (20:29)
[2024-06-25] MEDS: LORazepam 1 MG Tablet PO (22:09)
[2024-06-26 04:45] VITALS: BP 143/78; PULSE 86; RESP 18; TEMP 36.6; O2SAT 97
[2024-06-26] MEDS: Carbidopa/Levodopa 25/100 Tablet PO ×3 (05:11→15:53)
[2024-06-26] MEDS: Acetaminophen 500 MG Tablet 1000 MG PO ×3 (05:11→21:26)
[2024-06-26 07:46] VITALS: BP 145/68; PULSE 92; RESP 18; TEMP 36.9; O2SAT 95
[2024-06-26 07:50] VITALS: O2SAT 98
[2024-06-26] MEDS: Aspirin E.C. 81 MG Tablet PO (07:50)
[2024-06-26] MEDS: oxyCODONE 5 MG Tablet PO ×2 (07:54→13:01)
[2024-06-26 08:04] LABS: Anion Gap 8 (5-15); BUN 29 mg/dL (7-18); BUN/Creat Ratio 19.9 RATIO (10-20); Calcium,Total 9.4 mg/dL (8.5-10.1); Chloride 101 mmol/L (98-107); Creatinine, Serum 1.46 mg/dL (0.70-1.30); EST Glomerular Filtration Rate 51 mL/min (>60); Est Glom Filt Rate - Afr Amer 62 mL/min (>60); Estimated Creatinine Clearance 61.15 ml/min; Glucose 138 mg/dL (74-106); Sodium Level 135 mmol/L (136-145)
[2024-06-26] MEDS: APIXABAN 2.5 MG TABLET (WCH) PO ×2 (10:05→19:51)
[2024-06-26] MEDS: cloNIDine HCl 0.2 MG Tablet PO ×2 (10:05→21:27)
[2024-06-26] MEDS: amLODIPine 10 MG Tablet PO (10:05)
[2024-06-26] MEDS: Senna/Docusate Sodium 1 Tablet 2 TABLET PO ×2 (10:05→19:51)
[2024-06-26] MEDS: Pantoprazole Sodium 40 MG Tablet PO (10:06)
--- NOTE | 2024-06-26 12:39 | PN_ITS ---
Subjective Subjective Patient seen and examined. He complained of pain. Review of systems is otherwise negative. Objective Data Objective Data Vital Signs: Vital Signs Temp Pulse Resp BP Pulse Ox O2 Del Method O2 Flow Rate 98.4 F 92 18 145/68 H 98 Room Air 2 06/26/24 07:46 06/26/24 07:46 06/26/24 07:46 06/26/24 07:46 06/26/24 07:50 06/26/24 07:55 06/24/24 08:17 Oxygen Flow Rate (L/min) 2 Oxygen Delivery Method Room Air Weight: 245 lb Body Mass Index (BMI) 36.1 Intake & Output: Intake and Output for Last 24 Hours 06/24/24 06/25/24 06/26/24 23:59 23:59 23:59 Intake Total 2100 / 2100 1446 / 1846 600 / 600 Output Total 1625 / 1625 1850 / 2300 950 / 950 Balance 475 / 475 -404 / -454 -350 / -350 Lab / Micro Data 06/25/24 04:25 06/26/24 06:51 Labs: Laboratory Results - last 24 hr 06/26/24 06:51: Sodium 135 L, Potassium 4.0, Chloride 101, Carbon Dioxide 26.0, Anion Gap 8, BUN 29 H, Creatinine 1.46 H, Estim Creat Clear Calc 61.15, Est GFR (MDRD) Af Amer 62, Est GFR (MDRD) Non-Af 51 L, BUN/Creatinine Ratio 19.9, G lucose 138 H, Calcium 9.4 Micro: Microbiology 05/27/24 07:45 Swab (Method) Nasal Screen MRSA/MSSA - Final Physical Exam Const alert, oriented x3, no apparent distress, healthy appearing and well nourished; Negative for average body habitus General Appearance: cooperative and well developed HEENT normocephalic, head/scalp atraumatic and moist oral mucous membranes Eyes PERRL and EOMs intact bilaterally Neck no lymphadenopathy and supple Lymph Lymphatic: no lymphadenopathy noted, no lymphedema noted and lymphedema Resp normal respiratory effort, normal air movement, no retractions, no use of accessory muscles and clear to auscultation bilaterally Resp Narrative: on room air. Cardio regular rate, regular rhythm, S1 normal heart sound, S2 normal heart sound, no murmurs, no rub, no gallops and no clicks GI normal to inspection, nondistended, normoactive bowel sounds, soft to palpation, non-tender and non-distended GI Narrative: obese abdomen Extremity no clubbing, cyanosis or edema Extremity Narrative: intact dressing over right knee. Skin Skin Narrative: as under extremity Neuro oriented x3, CN's II-XII intact bilaterally, moves all extremities, no focal motor deficits and deep tendon reflexes 2+ bilaterally Speech: speech normal Motor Exam: general weakness Psych thought process normal, cooperative and affect normal Appearance: appropriate Assessment & Plan Assessment/Plan (1) S/P total knee arthroplasty: QUALIFIERS: Laterality: left Qualified Code(s): Z96.652 - Presence of left artificial knee joint (2) Essential hypertension: PLAN: Plan #Right knee osteoarthritis * s/p right total knee arthroplasty. Today is POD 4. * pain management as per primary service orthopedics * PT'/OT on board * fall precuations * #TYpe 2 diabetes mellitus * on 1800 calorie cardiac diet * ISS. Accuchecks ACHS. A1C is 6.8 * hold Jardiance due to YUMIKO * #Parkinson's disease * on levodopa carbidopa. * follow up with neurology on outpatient basis * #HfpEF * has known EF of 65%, with mild global hypokinesis of hte LV. * on lasix. Not in exacerbation. * hold lasix due to YUMIKO. * hold spironolactone and lisinopril. * #YUMIKO * patient's Cr today is 1.46,a nd continues to trend downwards. * It is unclear what his true baseline is. Cr was 1.65 on admission, and Cr from 05/20/2023 was 1.05. * lasix on hold. encourage oral hydration. * #Constipation: resolved. Give laxative. #ANxiety: on ativan 1mg every 6 hours prn #Hypertension: hold HCTZ and spironolactone as well as lisinopril due to YUMIKO. #ARASELI: stable. #History of CVA: on aspirin and statin. DVT prophylaxis: as per primary service orthopedics, to be on eliquis 2.5mg bid and NOLVIA tyson SCDs Charges/Coding Visit Charges Inpatient E&M: 62340 Subs Hosp L2
[2024-06-26] MEDS: Famotidine 20 MG Tablet 40 MG PO (12:57)
--- NOTE | 2024-06-26 13:08 | NURSING ---
family bedside. encouraged repositioning off back. egg carton boots maintained as had discussed with daughter this a.m. pt medicated for pain. discussed pepcid as well as increasing HOB. discussed attempting to eat something with pain medication. discussed tylenol order. pt refused repositioning at this time and denies all further needs. call light within reach.
[2024-06-26 13:42] VITALS: BP 149/84; PULSE 87; RESP 18; TEMP 36.6; O2SAT 96
--- NOTE | 2024-06-26 16:31 | PN.ORTHO_ITS ---
Subjective Subjective Seen and examined. Pain controlled ambulating better denies fever chills nausea vomiting shortness of breath or chest pain awaiting placement Objective Data Objective Data Vital Signs: Vital Signs Temp Pulse Resp BP Pulse Ox O2 Del Method O2 Flow Rate 97.9 F 87 18 149/84 H 96 Room Air 2 06/26/24 13:42 06/26/24 13:42 06/26/24 13:42 06/26/24 13:42 06/26/24 13:42 06/26/24 13:42 06/24/24 08:17 Oxygen Flow Rate (L/min) 2 Oxygen Delivery Method Room Air Weight: 245 lb Body Mass Index (BMI) 36.1 Intake & Output: Intake and Output for Last 24 Hours 06/24/24 06/25/24 06/26/24 23:59 23:59 23:59 Intake Total 2100 / 2100 1446 / 1846 900 / 900 Output Total 1625 / 1625 1850 / 2300 1325 / 1325 Balance 475 / 475 -404 / -454 -425 / -425 Lab / Micro Data 06/25/24 04:25 06/26/24 06:51 Labs: Laboratory Results - last 24 hr 06/26/24 06:51: Sodium 135 L, Potassium 4.0, Chloride 101, Carbon Dioxide 26.0, Anion Gap 8, BUN 29 H, Creatinine 1.46 H, Estim Creat Clear Calc 61.15, Est GFR (MDRD) Af Amer 62, Est GFR (MDRD) Non-Af 51 L, BUN/Creatinine Ratio 19.9, G lucose 138 H, Calcium 9.4 Micro: Microbiology 05/27/24 07:45 Swab (Method) Nasal Screen MRSA/MSSA - Final Physical Exam Const alert, oriented x3 and no apparent distress General Appearance: cooperative Orientation / Consciousness: Negative for confused Extremity Extremity Narrative: Left knee dressing clean dry intact compartments soft neurovascular intact EHL tibialis anterior gastrocsoleus intact sensation light touch palpable pedal pulse Assessment & Plan Assessment/Plan (1) S/P total knee arthroplasty: QUALIFIERS: Laterality: left Qualified Code(s): Z96.652 - Presence of left artificial knee joint PLAN: Plan Postop day #4 left total knee arthroplasty PT OT weightbearing as tolerated encourage knee range of motion Conley catheter management by medical team. Itching is much better with Neurontin we will leave this on board 100 mg 3 times daily., DVT prophylaxis SCDs NOLVIA tyson Eliquis 2.5 mg twice daily for 2 weeks postop Case management is consulted for DC planning awaiting transfer. Orthopedically stable when bed available DC when bed available.
[2024-06-26 19:35] VITALS: BP 134/73; PULSE 87; RESP 20; TEMP 37.1; O2SAT 95
[2024-06-26 19:46] VITALS: PULSE 90
[2024-06-26] MEDS: Tamsulosin HCl 0.4 MG Capsule PO (19:51)
[2024-06-26] MEDS: Atorvastatin Calcium 20 MG Tablet PO (19:52)
[2024-06-27] VITALS (8 sets, daily range): BP systolic 118–135; BP diastolic 69–81; PULSE 80–94; RESP 17–18; TEMP 36.3–37.1; O2SAT 95–98
[2024-06-27] MEDS: Carbidopa/Levodopa 25/100 Tablet PO ×3 (04:55→15:51)
[2024-06-27] MEDS: Acetaminophen 500 MG Tablet 1000 MG PO ×3 (04:56→22:40)
[2024-06-27 07:41] LABS: Anion Gap 10 (5-15); BUN 31 mg/dL (7-18); BUN/Creat Ratio 20.9 RATIO (10-20); Calcium,Total 9.8 mg/dL (8.5-10.1); Chloride 102 mmol/L (98-107); Creatinine, Serum 1.48 mg/dL (0.70-1.30); EST Glomerular Filtration Rate 51 mL/min (>60); Est Glom Filt Rate - Afr Amer 61 mL/min (>60); Estimated Creatinine Clearance 60.33 ml/min; Glucose 139 mg/dL (74-106); Potassium 4.1 mmol/L (3.5-5.1); Sodium Level 136 mmol/L (136-145)
[2024-06-27] MEDS: Senna/Docusate Sodium 1 Tablet 2 TABLET PO ×2 (09:02→22:40)
[2024-06-27] MEDS: Aspirin E.C. 81 MG Tablet PO (09:03)
[2024-06-27] MEDS: Pantoprazole Sodium 40 MG Tablet PO (09:03)
[2024-06-27] MEDS: APIXABAN 2.5 MG TABLET (WCH) PO ×2 (09:03→22:41)
[2024-06-27] MEDS: amLODIPine 10 MG Tablet PO (09:03)
[2024-06-27] MEDS: cloNIDine HCl 0.2 MG Tablet PO ×2 (09:03→22:39)
--- NOTE | 2024-06-27 11:15 | CASEMGMT ---
Addendum entered by Alma Tompkins 06/28/24 14:23: Pt was declined RU. Alma Tompkins DC Planning Asst. Original Note: Discharge Planning Updates sent to [facility]. Precert remains pending. Alma Tompkins DC Planning Asst.
--- NOTE | 2024-06-27 12:26 | PN.ORTHO_ITS ---
Subjective Subjective Seen and examined. No complaints or concerns still awaiting placement Objective Data Objective Data Vital Signs: Vital Signs Temp Pulse Resp BP Pulse Ox O2 Del Method O2 Flow Rate 98.0 F 80 18 118/74 96 Room Air 2 06/27/24 08:48 06/27/24 08:52 06/27/24 08:48 06/27/24 08:48 06/27/24 08:57 06/27/24 08:57 06/24/24 08:17 Oxygen Flow Rate (L/min) 2 Oxygen Delivery Method Room Air Weight: 245 lb Body Mass Index (BMI) 36.1 Intake & Output: Intake and Output for Last 24 Hours 06/25/24 06/26/24 06/27/24 23:59 23:59 23:59 Intake Total 1446 / 1846 900 / 900 380 / 380 Output Total 1850 / 2300 1650 / 1650 725 / 725 Balance -404 / -454 -750 / -750 -345 / -345 Lab / Micro Data 06/25/24 04:25 06/27/24 06:09 Labs: Laboratory Results - last 24 hr 06/27/24 06:09: Sodium 136, Potassium 4.1, Chloride 102, Carbon Dioxide 24.0, Anion Gap 10, BUN 31 H, Creatinine 1.48 H, Estim Creat Clear Calc 60.33, Est GFR (MDRD) Af Amer 61, Est GFR (MDRD) Non-Af 51 L, BUN/Creatinine Ratio 20.9 H, G lucose 139 H, Calcium 9.8 Micro: Microbiology 05/27/24 07:45 Swab (Method) Nasal Screen MRSA/MSSA - Final Physical Exam Const alert, oriented x3 and no apparent distress General Appearance: cooperative Orientation / Consciousness: Negative for confused Extremity Extremity Narrative: Left knee dressing clean dry intact compartments soft neurovascular intact EHL tibialis anterior gastrocsoleus intact sensation light touch palpable pedal pulse Assessment & Plan Assessment/Plan (1) S/P total knee arthroplasty: QUALIFIERS: Laterality: left Qualified Code(s): Z96.652 - Presence of left artificial knee joint PLAN: Plan Postop day #5 left total knee arthroplasty PT OT weightbearing as tolerated encourage knee range of motion Conley catheter management by medical team. Itching is much better with Neurontin we will leave this on board 100 mg 3 times daily., DVT prophylaxis SCDs NOLVIA hose Eliquis 2.5 mg twice daily for 2 weeks postop Case management is consulted for DC planning awaiting transfer. Orthopedically stable when bed available DC when bed available.
--- NOTE | 2024-06-27 13:46 | NURSING ---
pt refuses the foam boots.
--- NOTE | 2024-06-27 15:06 | CASEMGMT ---
Social Work- SW met with pt daughter to discuss status of precert. Pt dtr states that they need to leave by Thursday and need pt placed by then. SW provided education on process. Pt dtr states that she will request d/c home with [facility] tomorrow () if precert is not back. SW provided discussion on therapy recommendations. Pt dtr is adamant that pt be in his placement when she leave for [place] and reports that pt has family that can assist pt at home if he is d/c home. MERCED shared information with [facility] and physician. ALPA Walters
[2024-06-27] MEDS: oxyCODONE 5 MG Tablet PO ×2 (19:01→23:19)
[2024-06-27] MEDS: Gabapentin 100 MG Capsule PO (20:16)
[2024-06-27] MEDS: 0.9% Saline Lock 10 ML Syringe IV (20:16)
[2024-06-27] MEDS: LORazepam 1 MG Tablet PO (20:16)
[2024-06-27] MEDS: Menthol/Lanolin/Calamine/Znox 113 GM Tube 1 APPLIC TOPICAL (22:38)
[2024-06-27] MEDS: Atorvastatin Calcium 20 MG Tablet PO (22:41)
[2024-06-27] MEDS: Tamsulosin HCl 0.4 MG Capsule PO (22:41)
[2024-06-28 02:20] VITALS: BP 152/83; PULSE 83; RESP 16; TEMP 36.4; O2SAT 92
[2024-06-28] MEDS: Carbidopa/Levodopa 25/100 Tablet PO ×3 (06:12→16:11)
[2024-06-28] MEDS: Acetaminophen 500 MG Tablet 1000 MG PO ×3 (06:12→20:54)
[2024-06-28 07:12] LABS: Anion Gap 6 (5-15); BUN 31 mg/dL (7-18); BUN/Creat Ratio 20.5 RATIO (10-20); Calcium,Total 9.6 mg/dL (8.5-10.1); Chloride 103 mmol/L (98-107); Creatinine, Serum 1.51 mg/dL (0.70-1.30); EST Glomerular Filtration Rate 49 mL/min (>60); Est Glom Filt Rate - Afr Amer 60 mL/min (>60); Estimated Creatinine Clearance 59.13 ml/min; Glucose 152 mg/dL (74-106); Sodium Level 135 mmol/L (136-145)
[2024-06-28] MEDS: Gabapentin 100 MG Capsule PO (07:47)
[2024-06-28] MEDS: oxyCODONE 5 MG Tablet PO (07:47)
[2024-06-28] MEDS: Aspirin E.C. 81 MG Tablet PO (07:47)
[2024-06-28] MEDS: Pantoprazole Sodium 40 MG Tablet PO (07:48)
[2024-06-28] MEDS: APIXABAN 2.5 MG TABLET (WCH) PO ×2 (07:49→20:54)
[2024-06-28] MEDS: amLODIPine 10 MG Tablet PO (07:49)
[2024-06-28] MEDS: Senna/Docusate Sodium 1 Tablet 2 TABLET PO ×2 (07:49→20:54)
[2024-06-28] MEDS: Menthol/Lanolin/Calamine/Znox 113 GM Tube 1 APPLIC TOPICAL ×2 (07:50→20:54)
[2024-06-28] MEDS: cloNIDine HCl 0.2 MG Tablet PO ×2 (07:50→20:54)
[2024-06-28 07:52] VITALS: O2SAT 95
[2024-06-28 08:00] VITALS: PULSE 90
[2024-06-28 08:04] VITALS: BP 136/82; PULSE 80; RESP 18; TEMP 36.6; O2SAT 97
--- NOTE | 2024-06-28 09:13 | CASEMGMT ---
Addendum entered by Tamar Mccarthy 06/28/24 14:42: Social Work- MERCED had not heard from [place] and sent a message to check on status of referral. ALPA Walters Addendum entered by Tamar Mccarthy 06/28/24 10:58: ? denied stating patient will benefit from SNF REF# [id number] If patient want to do appeal through [facility] for fast appeal . Pt family chose SNF [place] ALPA Walters Addendum entered by Tamar Mccarthy 06/28/24 10:46: Work- MERCED spoke with pt and pt dtr who state they will have a name of SNF in 20 min to submit referral. MERCED remains available to follow. ALPA Walters Addendum entered by Tamar Mccarthy 06/28/24 10:37: MERCED called [facility] and spoke with Joanie who shared that January is CM for pt case. Joanie forwarded SW to milling supervisor, Emily, who reported that if pt has SNF accept that they will auto authorize as it has already been determined that pt is appropriate for a SNF level of care. MERCED will f/u with family. ALPA Walters Addendum entered by Tamar Mccarthy 06/28/24 10:01: MERCED spoke with physician in [place] who attempted to call, however, insurance physician was unavailable. Dr Beltran has surgery again at 10:30 and will not be available again until after the dealine provided by insurance. Insurance physician is supposed to call when he is available. MERCED will remain available to follow. ALPA Walters Original Note: Social Work- MERCED received a message from [employer] that [employer] is requesting a peer to peer. MERCED called Dr Beltran's office; physician is not in. MERCED left a message for Rola. MERCED also sent an email. MERCED will continue to follow. ALPA Walters
[2024-06-28 14:00] VITALS: BP 131/77; PULSE 90; RESP 18; TEMP 36.7; O2SAT 94
--- NOTE | 2024-06-28 14:24 | CASEMGMT ---
Discharge Planning Referral sent to [facility] at 10:59a. Since then, SW has requested updated via [facility] and DC Cfo Controller has requested updated via . Alma Tompkins DC Planning Asst.
--- NOTE | 2024-06-28 14:43 | CASEMGMT ---
Addendum entered by Tamar Mccarthy 06/28/24 14:57: MERCED called dtr Carmina and set up to meet this afternoon to discuss d/c plans. Selena.ALPA Original Note: Social Work- SW received word that [place] [facility] is unable to accept referral. Pt family is not in his room. MERCED called pt dtr Hilary and left a voicemail regarding preference on how to proceed with d/c planning. ALPA Walters
--- NOTE | 2024-06-28 14:43 | CASEMGMT ---
Discharge Planning A list of?HH providers including quality and resource use data and consistent with the patient's preferred geographic region, medical needs, and insurance network was created in [employer] Guide.? This list was provided to the RN DOMINGO. Alma Tompkins, Discharge Planning Asst.
--- NOTE | 2024-06-28 15:10 | CASEMGMT ---
Social Work- SW spoke with pt dtr who selected [facility]. MERCED completed referral. ALPA Walters
--- NOTE | 2024-06-28 16:04 | NURSING ---
unable to pull milk of mag from [employer] at this timee
--- NOTE | 2024-06-28 16:05 | PN.ORTHO_ITS ---
Subjective Subjective Seen and examined. Patient was denied rehab we are awaiting SNF placement. Passing gas but complaining of constipation had some chills vital signs have been stable Objective Data Objective Data Vital Signs: Vital Signs Temp Pulse Resp BP Pulse Ox O2 Del Method O2 Flow Rate 98.0 F 90 18 131/77 H 94 Room Air 2 06/28/24 14:00 06/28/24 14:00 06/28/24 14:00 06/28/24 14:00 06/28/24 14:00 06/28/24 14:00 06/24/24 08:17 Oxygen Flow Rate (L/min) 2 Oxygen Delivery Method Room Air Weight: 245 lb Body Mass Index (BMI) 36.1 Intake & Output: Intake and Output for Last 24 Hours 06/26/24 06/27/24 06/28/24 23:59 23:59 23:59 Intake Total 900 / 900 480 / 480 750 / 750 Output Total 1650 / 1650 1175 / 1175 700 / 700 Balance -750 / -750 -695 / -695 50 / 50 Lab / Micro Data 06/25/24 04:25 06/28/24 05:55 Labs: Laboratory Results - last 24 hr 06/28/24 05:55: Sodium 135 L, Potassium 4.0, Chloride 103, Carbon Dioxide 26.0, Anion Gap 6, BUN 31 H, Creatinine 1.51 H, Estim Creat Clear Calc 59.13, Est GFR (MDRD) Af Amer 60, Est GFR (MDRD) Non-Af 49 L, BUN/Creatinine Ratio 20.5 H, G lucose 152 H, Calcium 9.6 Micro: Microbiology 05/27/24 07:45 Swab (Method) Nasal Screen MRSA/MSSA - Final Physical Exam Const alert, oriented x3 and no apparent distress General Appearance: cooperative Orientation / Consciousness: Negative for confused Extremity Extremity Narrative: Left knee dressing clean dry intact compartments soft neurovascular intact EHL tibialis anterior gastrocsoleus intact sensation light touch palpable pedal pulse Assessment & Plan Assessment/Plan (1) S/P total knee arthroplasty: QUALIFIERS: Laterality: left Qualified Code(s): Z96.652 - Presence of left artificial knee joint PLAN: Plan Postop day #6 left total knee arthroplasty PT OT weightbearing as tolerated encourage knee range of motion Conley catheter management by medical team. Will add milk of magnesia for his constipation. DVT prophylaxis SCDs NOLVIA tyson Eliquis 2.5 mg twice daily for 2 weeks postop Case management is consulted for DC planning awaiting transfer. Orthopedically stable when bed available DC when bed available at SNF. .
[2024-06-28] MEDS: Magnesium Hydroxide 30 ML UDC PO (16:10)
--- NOTE | 2024-06-28 16:54 | CASEMGMT ---
Social Work- MERCED spoke with pt dtr to discuss status of referral. MERCED called Jenn to verify receipt of referral. MERCED left a message for Trisha in admissions. MERCED called [facility] to confirm 24 hr period end time. MERCED spoke with Maria Luisa who was unable to locate previous conversations. SW was transferred to January. January was able to assist SW, reporting that she will officially give approval, as the 24 hr time grame ends at 9:30AM tomorrow . January states the pt has been approved for SNF. Approval #: [id number]. Pt needs to admit prior to 11:59PM on 06/30/24. Halima Domingo is the sales representative church [employer] that will follow pt at the SNF. The accepting SNF needs to call [phone] and speak to Halima once pt admits. If the facility changes, staff can call the same number to update facility. MERCED updated auth in [facility]. ALPA Walters
[2024-06-28 20:49] VITALS: BP 142/82; PULSE 89; RESP 18; TEMP 36.2; O2SAT 98
[2024-06-28] MEDS: Atorvastatin Calcium 20 MG Tablet PO (20:53)
[2024-06-28] MEDS: Tamsulosin HCl 0.4 MG Capsule PO (20:56)
[2024-06-29 05:10] VITALS: BP 140/77; PULSE 80; RESP 18; TEMP 35.7; O2SAT 97
[2024-06-29] MEDS: Acetaminophen 500 MG Tablet 1000 MG PO ×2 (05:10→13:24)
[2024-06-29] MEDS: Carbidopa/Levodopa 25/100 Tablet PO ×2 (05:10→13:25)
[2024-06-29 07:24] LABS: Anion Gap 5 (5-15); BUN 31 mg/dL (7-18); BUN/Creat Ratio 22.3 RATIO (10-20); Calcium,Total 9.4 mg/dL (8.5-10.1); Chloride 105 mmol/L (98-107); Creatinine, Serum 1.39 mg/dL (0.70-1.30); EST Glomerular Filtration Rate 54 mL/min (>60); Est Glom Filt Rate - Afr Amer 66 mL/min (>60); Estimated Creatinine Clearance 64.23 ml/min; Glucose 156 mg/dL (74-106); Potassium 3.9 mmol/L (3.5-5.1); Sodium Level 138 mmol/L (136-145)
[2024-06-29 08:52] VITALS: BP 125/78; PULSE 80; RESP 17; TEMP 36.6; O2SAT 93
[2024-06-29] MEDS: Aspirin E.C. 81 MG Tablet PO (09:12)
--- NOTE | 2024-06-29 09:50 | CASEMGMT ---
Social Work- SW spoke with pt and dtr to advise of [facility]gos. Pt dtr requested [place] [facility] [place] lists. SW provided lists. SW will f/u on choice. ALPA Walters
--- NOTE | 2024-06-29 10:24 | CASEMGMT ---
Addendum entered by Tamar Mccarthy 06/29/24 13:35: Social Work- MERCED spoke with [facility] who reports that pt has approval for [facility]. Auth #: [id number] Valid 06/29-07/01. Accepting facility will need to submit admit orders and therapy prior to Sunday 07/01. ALPA Walters Original Note: Social Work- MERCED spoke with pt and dtr who request a referral to [facility]. SW completed. DCA advised. ALPA Walters
[2024-06-29] MEDS: cloNIDine HCl 0.2 MG Tablet PO (10:40)
[2024-06-29] MEDS: Menthol/Lanolin/Calamine/Znox 113 GM Tube 1 APPLIC TOPICAL (10:40)
[2024-06-29] MEDS: amLODIPine 10 MG Tablet PO (10:41)
[2024-06-29] MEDS: Pantoprazole Sodium 40 MG Tablet PO (10:41)
[2024-06-29] MEDS: Magnesium Hydroxide 30 ML UDC PO (10:41)
[2024-06-29] MEDS: APIXABAN 2.5 MG TABLET (WCH) PO (10:41)
[2024-06-29] MEDS: oxyCODONE 5 MG Tablet PO (10:42)
[2024-06-29] MEDS: Senna/Docusate Sodium 1 Tablet 2 TABLET PO (10:42)
--- NOTE | 2024-06-29 11:38 | CASEMGMT ---
Addendum entered by Tamar Mccarthy 06/29/24 12:12: Social Work- January called and advised SW that [facility] is an out of network provider with pt HMO and, therefore, authorization will need to be restarted. January reports that she expedited referral and was told they will review within the next hour. Reference #: [id number] if we need to call and follow up. MERCED will continue to follow for d/c planning. ALPA Walters Original Note: Social Work- MERCED spoke with Karo at [facility]. Pt is accepted. Karo asked SW to utilize [employer] for transport time. MECRED called [facility] to update facility for authorization. January CM reports that b/c pt has HMO, [facility] is not in-network, so she will need to speak with trim crew supervisor before updating. January will call SW back. ALPA Walters
--- NOTE | 2024-06-29 13:29 | CASEMGMT ---
Social Work Pt has accepting facility and authorization.? Physician updated and pt is ready for discharge today.? SW met with pt and they are agreeable to discharge plan as stated above.? DCA and bedside nurse notified of discharge. Disposition: [facility], skilled level of care under convalescent stay. ALPA Walters
--- NOTE | 2024-06-29 14:01 | CASEMGMT ---
Discharge Planning Discharge orders, signed med list, updated auth number ([id number]), and transport time sent to [facility] via [facility]. Physicians will transport patient by wheelchair at 3:30p. Nursing, SW, patient, and his daughter (Tessy) updated. Alma Tompkins DC Planning Asst.
[2024-06-29 14:29] VITALS: BP 133/87; PULSE 93; RESP 16; TEMP 36.8; O2SAT 100
[2024-06-29] MEDS: Fleet Enema 133 ML RC (14:36)
--- NOTE | 2024-07-01 11:33 | DS.PCM_ITS ---
Providers Date of Admission: 06/22/24 Consultations 06/22/24 13:12 Consult: Hospitalist Routine Consulting Provider: Noah Oleary Reason for Consult: post op medical management EMERGENT Consult: No MD Notified: Yes Date Notified: 06/22/24 Time Notified: 14:44 Method of Notification: Text Reason For Visit: Left Total Knee Replacement Robotic Arm Assisted Diagnosis Discharge Diagnosis (1) S/P total knee arthroplasty: Status: Acute Code(s): Z96.659 - Presence of unspecified artificial knee joint Qualifiers: Laterality: left Qualified Code(s): Z96.652 - Presence of left artificial knee joint Plan Postop day #6 left total knee arthroplasty PT OT weightbearing as tolerated encourage knee range of motion Conley catheter management by medical team. Will add milk of magnesia for his constipation. DVT prophylaxis SCDs NOLVIA hose Eliquis 2.5 mg twice daily for 2 weeks postop Case management is consulted for DC planning awaiting transfer. Orthopedically stable when bed available DC when bed available at SNF. . Medications at Discharge Home Medications aspirin 81 mg tablet,delayed release 81 mg PO DAILY HEART HEALTH 02/01/24 dapagliflozin propanediol 10 mg tablet 10 mg PO DAILY CHOLESTEROL 03/17/24 spironolactone 25 mg tablet 25 mg PO QDAY WATER PILL 03/17/24 atorvastatin 10 mg tablet (Lipitor) 20 mg PO QHS CHOLESTEROL 05/23/24 carbidopa 25 mg-levodopa 100 mg tablet 1 tab PO TID PARKINSON 05/23/24 amlodipine 10 mg tablet 10 mg PO DAILY BP #90 tabs 05/31/24 citalopram 40 mg tablet 40 mg PO DAILY DEPRESSION #90 TABLETS 05/31/24 clonidine HCl 0.2 mg tablet 0.2 mg PO BID BP #180 tabs 05/31/24 lisinopril 20 mg-hydrochlorothiazide 12.5 mg tablet 1 tab PO DAILY BP #90 tabs 05/31/24 tamsulosin 0.4 mg capsule 0.4 mg PO QHS PROSTATE #90 caps 05/31/24 acetaminophen 500 mg tablet 1,000 mg (2 x 500 mg) PO Q8 #90 tabs 06/24/24 apixaban 5 mg tablet (Eliquis) 2.5 mg (1/2 x 5 mg) PO BID #28 tabs 09/20/24 gabapentin 100 mg capsule 100 mg PO TIDCM PRN foot restlessness/itching/burn #60 caps 06/24/24 oxycodone 5 mg tablet 5 - 10 mg (1 - 2 x 5 mg) PO Q4H PRN PRN Pain Score 4-10 7 days #60 tabs 06/24/24 Hospital Course Operations total knee replacement Summary of Care Provided Hospital Course: Who has long history of degenerative joint disease to the knee who has failed conservative treatment and wished to undergo elective total knee arthroplasty. Patient underwent the aformentioned procedure on the admission date without any intraoperative complications. Patient did receive pre-and postoperative antibiotics which were discontinued within 23 hours postoperatively. . pain was controlled with IV and transition to p.o. pain medication Patient will be discharged with oxycodone and will continue Tylenol as well. Patient had minimal intraoperative blood loss and 2gm tranexamic acid was administered there was no need for postoperative blood transfusion Patients vital signs remained stable. Patient was started on both mechanical and chemical DVT per prophylaxis postoperatively in the form of SCDs NOLVIA hose and [Eliquis 2.5 mg twice daily for which she will continue for 2 additional weeks post hospital discharge]. thigh high nolvia hose placed over top of the meplix silver dressing. Patient did require 3 straight catheterizations for urinary retention and then a Conley catheter was placed, for which she will follow-up with urology to have removed, hospitalist was consulted on this case. His dressing was changed on postop day #3 and should continue to be cleaned and changed daily. Patient did require assistance with ambulation as he was weak and newly diagnosed with Parkinson's family was not comfortable with him being discharged home and neither was I he was initially denied rehab but was approved for residential facility and after much delay secondary to insurance companies he was finally discharged to a residential facility. Do not not to submerge for 3 weeks. Patient will follow-up in the office in 2 weeks postop. Physical Exam Const alert, oriented x3 and no apparent distress General Appearance: cooperative Orientation / Consciousness: Negative for confused Extremity Extremity Narrative: Left knee dressing clean dry intact compartments soft neurovascular intact EHL tibialis anterior gastrocsoleus intact sensation light touch palpable pedal pulse Weight / BMI Weight Weight: 245 lb Body Mass Index (BMI) 36.1 ABG / Lab / Microbiology Data 06/25/24 04:25 06/29/24 05:38 Microbiology: Microbiology 05/27/24 07:45 Swab (Method) Nasal Screen MRSA/MSSA - Final D/C Instructions Discharge Diet: No restrictions Weight Bearing Status: Full weight bearing Call your doctor if you observe: Shortness of breath and Chest pain Additional Dressing/Incision Instructions: Ice and elevate lower extremities 2 weeks while not ambulating. Ambulation is encouraged. Weight bearing as tolerated. Use assistive devise for stability. Encourage FULL knee extension and flexion 1 time EVERY time you get up and down and MULTIPLE times per day. No showering until 72 hours after surgery. Begin showering postop day #3. Remove the dressing prior to shower and gently wash with warm water and antibacterial soap then pat dry and place abdominal pad (or plain gauze) and NOLVIA hose over top. This is to be done daily. Do not submerge for 3 weeks. If not showering daily after the initial 72 hours then you must clean incision and change dressing daily. Do not allow animals near the incision area. Keep clean. Follow anti-coagulation recommendations as prescribed. Do not take any NSAIDs while on blood thinner. Do not take any additional narcotic pain medication other than what was prescribed on your surgery day without discussing with physician. Narcotic medication can be addictive. Do not drink alcohol while taking narcotics. Supplement narcotic prescription with acetaminophen 1000 mg 4 times a day. Start physical therapy. If you are not currently scheduled for physical therapy or you are unsure of appointment time please call office [facility] to arrange. Call Dr. Ge with any concerns. Please Follow Up With: Mac Ge DO When: 2 weeks Meaningful Use Info Meaningful Use Meaningful Use Diagnoses (Choose all that apply): None applicable Ischemic Stroke Statin Dosing Therapy Reference: STATIN DOSE THERAPY REFERENCE: * Patients > 75 years receive moderate or high dose statin therapy. * Patients 75 years or YOUNGER should receive HIGH intensity statin dose unless contraindicated. You will be required to document reason for non-treatment if statin daily dose does not meet guidelines. HIGH DOSE STATIN THERAPY DAILY Atorvastatin > than or = to 40 mg Rosuvastatin > than or = to 20 mg Amlodipine + Atorvastatin > than or = to 2.5/40 mg Ezetimibe + Simvastatin 10/80 mg Simvastatin 80mg Discharge Plan Admission Admit Date/Time: 06/22/24 13:12 Primary Reason for Your Visit: left total knee Attending Provider: Alondra Zelaya Consulting Providers: Mishel Vivar; Mac Ge Discharge Orders/Prescriptions Prescriptions: New gabapentin 100 mg Capsule 100 mg PO TIDCM PRN (Reason: foot restlessness/itching/burn) Qty: 60 0RF oxycodone 5 mg Tablet 5 - 10 mg PO Q4H PRN PRN (Reason: Pain Score 4-10) 7 Days Qty: 60 0RF Eliquis 5 mg Tablet 2.5 mg PO BID Qty: 28 0RF acetaminophen 500 mg Tablet 1,000 mg PO Q8 Qty: 90 0RF Continued aspirin 81 mg tablet,delayed release (DR/EC) 81 mg PO DAILY spironolactone 25 mg tablet 25 mg PO QDAY dapagliflozin propanediol 10 mg tablet 10 mg PO DAILY carbidopa-levodopa 25-100 mg tablet 1 tab PO TID atorvastatin [Lipitor] 10 mg tablet 20 mg PO QHS tamsulosin 0.4 mg capsule 0.4 mg PO QHS Qty: 90 0RF citalopram 40 mg tablet 40 mg PO DAILY Qty: 90 1RF amlodipine 10 mg tablet 10 mg PO DAILY Qty: 90 1RF clonidine HCl 0.2 mg tablet 0.2 mg PO BID Qty: 180 1RF lisinopril-hydrochlorothiazide 20-12.5 mg tablet 1 tab PO DAILY Qty: 90 0RF Referrals / Follow Up: Allyson Soler MD [Med Staff - Active Staff] - Disposition Disposition (needs filled in before D/C Order can be placed): Longterm Facility
== END 2024-06-29 15:25 | disposition skilled nursing facility (03) | DRG 470 ==
LOC: ACINP 15:39 → MS3 16:41
PROVIDERS: Anesthesiology; Student in an Organized Health Care Education/Training Program; Admitting Provider Orthopaedic Surgery; Referring Provider Orthopaedic Surgery; Visit Provider Internal Medicine
PROC: 0SRD0JZ Replacement of Left Knee Joint with Synthetic Substitute, Open Approach (ICD-10-PCS; CPT 27447; principal; 2024-06-22 10:10)
DX: M17.11 Unilateral primary osteoarthritis, right knee (principal); N17.9 Acute kidney failure, unspecified; I50.22 Chronic systolic (congestive) heart failure; I11.0 Hypertensive heart disease with heart failure; G20.A1 Parkinson's disease without dyskinesia, without mention of fluctuations; E11.9 Type 2 diabetes mellitus without complications; E66.9 Obesity, unspecified; G47.33 Obstructive sleep apnea (adult) (pediatric); F41.9 Anxiety disorder, unspecified; K59.00 Constipation, unspecified; Z79.84 Long term (current) use of oral hypoglycemic drugs; Z86.73 Personal history of transient ischemic attack (TIA), and cerebral infarction without residual deficits; R33.9 Retention of urine, unspecified; Z68.36 Body mass index [BMI] 36.0-36.9, adult
CPT/HCPCS: 36415; 73560; 80048; 82962; 82985; 83735; 85025; 85027; 85610; 85730; 86850; 86900; 86901; 87081; 88305; 88311; 93005; 94668; 97110; 97116; 97162; 97166; 97530; 97535; 99252; C1776; J7030; J7120; A4216; G0463; J2405; J3475; J3490

== ENCOUNTER 2024-08-01 12:19 | Emergency (ER) | payer MEDICARE, SELFPAY ==
[2024-08-01] VITALS (7 sets, daily range): BP systolic 128–170; BP diastolic 77–104; PULSE 79–104; RESP 18–20; TEMP 36.2–36.9; O2SAT 92–98; BMI 28.0
--- NOTE | 2024-08-01 15:02 | EX.ED.DYSGE1 ---
HPI History of Present Illness Chief Complaint: Nausea/Vomiting/Diarrhea Informant: patient Narrative Narrative: 64-year-old male states he was recently admitted to [facility] in [place] for a UTI and subsequent sepsis. He was discharged home 3 or 4 days ago with antibiotics that he has had difficulty keeping down due to vomiting for the past 2 or 3 days. Denies any abdominal pain. He states he has been feeling very anxious. Today he states he has gotten up and walked from room to room about 20 times and he does not know why, just feeling anxious. He denies any abdominal pain or chest pain or cough or dyspnea or headache. He states he has a home nurse that came and checked on him and directed EMS to bring him to the ER. Patient states he did not want to come here and does not want to be here. [facility] Medical History Wears glasses Depression Bladder disease High cholesterol Back pain Parkinson's disease Stroke/cerebrovascular accident Heartburn Non-smoker History of pain when walking History of edema History of echocardiogram Cardiology follow-up encounter Bilateral primary osteoarthritis of knee Pain in both knees Family history of prostate problems Kidney stones Hypertension Diabetes History of back problems Arthritis Home Medications ?Medication ?Instructions ?Recorded ?Last Taken ?Type aspirin 81 mg tablet,delayed 81 mg PO DAILY HEART HEALTH 02/01/24 06/15/24 History release dapagliflozin propanediol 10 mg 10 mg PO DAILY CHOLESTEROL 03/17/24 Unknown History tablet spironolactone 25 mg tablet 25 mg PO QDAY WATER PILL 03/17/24 Unknown History carbidopa 25 mg-levodopa 100 mg 1 tab PO TID PARKINSON 05/23/24 06/22/24 History tablet amlodipine 10 mg tablet 10 mg PO DAILY BP #90 tabs 05/31/24 06/22/24 05:15 Rx citalopram 40 mg tablet 40 mg PO DAILY DEPRESSION #90 05/31/24 06/22/24 Rx TABLETS clonidine HCl 0.2 mg tablet 0.2 mg PO BID BP #180 tabs 05/31/24 Unknown Rx lisinopril 20 1 tab PO DAILY BP #90 tabs 05/31/24 Unknown Rx mg-hydrochlorothiazide 12.5 mg tablet tamsulosin 0.4 mg capsule 0.4 mg PO QHS PROSTATE #90 caps 08/27/24 Unknown Rx acetaminophen 500 mg tablet 1,000 mg (2 x 500 mg) PO Q8 #90 06/24/24 Unknown Rx tabs apixaban 5 mg tablet (Eliquis) 2.5 mg (1/2 x 5 mg) PO BID #28 tabs 06/24/24 Unknown Rx gabapentin 100 mg capsule 100 mg PO TIDCM PRN foot 06/24/24 Unknown Rx restlessness/itching/burn #60 caps oxycodone 5 mg tablet 5 - 10 mg (1 - 2 x 5 mg) PO Q4H 06/24/24 Unknown Rx PRN PRN Pain Score 4-10 7 days #60 tabs atorvastatin 20 mg tablet 20 mg PO QHS 08/01/24 Unknown History ondansetron 8 mg disintegrating 8 mg PO Q8H PRN nausea and 08/01/24 Unknown Rx tablet vomiting #20 tabs oxybutynin chloride 10 mg 10 mg PO DAILY 08/01/24 Unknown History tablet,extended release 24 hr pantoprazole 40 mg tablet,delayed 40 mg PO BID 08/01/24 Unknown History release sennosides 8.6 mg-docusate sodium 1 tab PO BID 08/01/24 Unknown History 50 mg tablet (Stimulant Laxative Plus) sulfamethoxazole 800 tab PO 08/01/24 Unknown History mg-trimethoprim 160 mg tablet Allergy/AdvReac Type Severity Reaction Status Date / Time acetaminophen (From Vicodin) Allergy Intermediate Nausea/Vom/ Verified 08/01/24 12:23 Diarrhea hydrocodone (From Vicodin) Allergy Intermediate Nausea/Vom/ Verified 08/01/24 12:23 Diarrhea tramadol Allergy Intermediate Nausea/Vom/ Verified 08/01/24 12:23 Diarrhea Family History Mother Hypertension Myocardial infarction Colon cancer CVA (cerebral vascular accident) Depression Diabetes Brother Colon cancer Cancer STOMACH CVA (cerebral vascular accident) Hypertension Father Hypertension Sister Diabetes Surgical History No pertinent past surgical history Social History household members: spouse current occupational status: retired current occupation: [employer] Smoking Status: Never smoker Electronic Cigarette Use: not used alcohol intake: never substance use type: does not use what type of physical activity do you participate in: none seatbelt use: sometimes do you feel safe at home: Yes ROS ROS ED Constitutional Constitutional ED: Reports fatigue; Denies chills, fever(s), sweats or weakness Eyes Eyes: Denies change in vision or diplopia ENT ENT ED: Denies rhinorrhea or sore throat Cardiovascular Cardiovascular: Denies chest pain or palpitations Respiratory/Chest Respiratory/Chest: Denies cough or dyspnea Gastrointestinal Gastrointestinal: Reports nausea and vomiting; Denies abdominal pain or diarrhea Genitourinary Genitourinary ED: Denies dysuria or hematuria Musculoskeletal Musculoskeletal: Denies back pain or neck pain Integumentary Denies abscess or rash Neurologic Neurologic: Reports tremor(s); Denies headache(s), paresthesias or weakness Psychiatric Psychiatric: Reports anxiety; Denies suicidal thoughts EXAM Physical Exam Const Vital Signs: 08/01/24 12:20 08/01/24 14:26 08/01/24 14:26 Temperature 97.2 F L 98.3 F Temperature Source Oral Oral Pulse Rate 104 H 87 89 Respiratory Rate 18 20 H Blood Pressure 140/87 H 144/104 H 144/104 H Blood Pressure Mean 104 117 117 Pulse Ox 98 97 Oxygen Delivery Method Room Air Room Air 08/01/24 15:14 08/01/24 16:00 08/01/24 16:58 Temperature 98.2 F 98.4 F 98.1 F Temperature Source Oral Oral Oral Pulse Rate 79 79 86 Respiratory Rate 18 18 18 Blood Pressure 128/77 H 170/86 H 162/87 H Blood Pressure Mean 94 114 112 Pulse Ox 94 98 92 Oxygen Delivery Method Room Air Room Air Room Air Positive well nourished and well developed Constitutional Narrative: Conversive in full sentences. No distress. Poor historian. General Appearance ED: well developed and NAD HEENT Reports moist mucous membranes normocephalic and atraumatic Eyes PERRL and EOMs intact bilaterally Neck full ROM and supple Resp normal respiratory effort and clear to auscultation bilaterally Cardio regular rate, regular rhythm and no murmurs Rate: Negative for tachycardic GI non-tender and non-distended Auscultation: normoactive bowel sounds Palpation: soft Back/Spine no CVA tenderness General Back: other FROM Extremity normal to inspection General Extremety ED: Negative for edema, pulses abnormal or tenderness General Extremity: Negative for edema or pulses abnormal Neuro oriented x3, CN's II-XII intact bilaterally and no sensory deficits noted Neuro Narrative: Tremulous in all 4 extremities no convulsions or seizure activity. Able to move everything equally. Sensorium / Orientation: awake and alert Motor Exam: strength 5/5 throughout Psych mental status grossly normal Skin no rashes or lesions noted and no wounds MDM MDM MDM Narrative Medical decision making narrative: Reviewed some recent records, it appears he has never been seen in this emergency department before. He was recently seen as an outpatient for follow-up left robotic assisted total knee arthroplasty that he had about 5.5 weeks ago. He states the knee has been doing okay. He is on apixaban. I did a septic workup basically. He has some mild YUMIKO compared with his prior creatinine about a month ago, unclear how this compares with his labs from his recent admission since those are not available. He was given a liter of IV fluid here. His urine does not appear to be acutely infected and the rest of his labs are unremarkable including a normal troponin and a noninjurious EKG. Chest x-ray does not show pneumonia. He was given Zofran and on reevaluation is tolerating oral fluids, his heart rate went from 104-86 after the IV fluids. I spoke with the patient's daughter about his condition and labs. Also trying to get which antibiotic he is currently on to see if I can give him a dose in the IV. He is on Bactrim and only has 6 pills left. She is comfortable with him coming home as DE. He is tolerating fluids here, I gave him an oral Bactrim since I do not have it available parenterally, he tolerated it fine, and I am sending him home with a prescription for some Zofran. He and daughter are comfortable with that overall plan. History & Record Review Discussion w/independent historian: Patient and Family Additional record(s) reviewed:: Prior outpatient record and Prior labs (Echo 01/19/2024: EF 45%, mild global hypokinesis LV but normal size) Lab Data Attestation: I reviewed the patient's lab results. Labs: Laboratory Results - last 24 hr 08/01/24 08/01/24 14:35 15:30 WBC 9.1 RBC 4.00 L Hgb 12.0 L Hct 35.9 L MCV 89.8 MCH 30.0 MCHC 33.4 RDW Std Deviation 42.7 RDW Coeff of Mario 13.0 Plt Count 400 MPV 8.8 Immature Gran % (Auto) 0.500 Neut % (Auto) 73.3 H Lymph % (Auto) 18.0 L Roberts % (Auto) 7.5 Eos % (Auto) 0.0 Baso % (Auto) 0.7 Absolute Neuts (auto) 6.7 Absolute Lymphs (auto) 1.64 Nucleated RBC % 0 Sodium 135 L Potassium 4.5 Chloride 106 Carbon Dioxide 23.0 Anion Gap 6 BUN 21 H Creatinine 2.06 H Estim Creat Clear Calc 41.97 Est GFR (MDRD) Af Amer 42 L Est GFR (MDRD) Non-Af 35 L BUN/Creatinine Ratio 10.2 Glucose 101 Calcium 9.9 Total Bilirubin 0.60 AST 19 ALT 8 L Alkaline Phosphatase 86 Troponin I High Sens 28 Total Protein 7.2 Albumin 3.8 Globulin 3.4 Albumin/Globulin Ratio 1.1 Urine Color Yellow Urine Clarity Clear Urine pH 8.0 Ur Specific [place] 1.010 Urine Protein 100 H Urine Glucose (UA) 250 H Urine Ketones 5 H Urine Occult Blood Negative Urine Nitrite Negative Urine Bilirubin Negative Urine Urobilinogen Normal Ur Leukocyte Esterase 25 H Urine RBC 0 SEEN Urine WBC 0-5 SEEN Ur Squamous Epith Cells 0 SEEN Ur Transition Epith Cell 0-5 SEEN Urine Bacteria RARE Urine Mucus 0 SEEN Radiography Chest X-Ray - ED: 1 View, Read by ED Physician, No Acute Disease and No Infiltrates Diagnostic Testing: Clinical Impression(s) from Imaging Studies Chest X-Ray 08/01/24 15:30 IMPRESSION: No acute cardiopulmonary pathology Electronically Signed: Daniel Dale MD at 17:01 EDT , Rhythm Strip Rhythm Strip: Sinus Rhythm Rate: 85 Ectopy: None EKG Initial EKG: Attestation: I personally reviewed and interpreted this EKG as follows: Interpretation: Sinus Rhythm (probably; tremor artifact throughout), No Acute Injury Pattern and LBBB Comments: rate 85. left axis. wide QRS. nml intervals otherwise. Prior EKG tracings: not available for review Prior: No Prior Discharge Plan Triage Chief Complaint: Nausea/Vomiting/Diarrhea ED Provider: Kai Oswald Dx/Rx/DC Orders Clinical Impression: Nausea and vomiting, Mild dehydration, YUMIKO (acute kidney injury) Instructions: ED Vomiting (Adult), ED Renal Insufficiency Prescriptions: New ondansetron 8 mg tablet,disintegrating 8 mg PO Q8H PRN (Reason: nausea and vomiting) Qty: 20 0RF No Action aspirin 81 mg tablet,delayed release (DR/EC) 81 mg PO DAILY spironolactone 25 mg tablet 25 mg PO QDAY dapagliflozin propanediol 10 mg tablet 10 mg PO DAILY carbidopa-levodopa 25-100 mg tablet 1 tab PO TID gabapentin 100 mg Capsule 100 mg PO TIDCM PRN (Reason: foot restlessness/itching/burn) Qty: 60 0RF oxycodone 5 mg Tablet 5 - 10 mg PO Q4H PRN PRN (Reason: Pain Score 4-10) 7 Days Qty: 60 0RF Eliquis 5 mg Tablet 2.5 mg PO BID Qty: 28 0RF acetaminophen 500 mg Tablet 1,000 mg PO Q8 Qty: 90 0RF atorvastatin 20 mg tablet 20 mg PO QHS oxybutynin chloride 10 mg tablet extended release 24hr 10 mg PO DAILY sennosides-docusate sodium [Stimulant Laxative Plus] 8.6-50 mg tablet 1 tab PO BID sulfamethoxazole-trimethoprim 800-160 mg tablet PO pantoprazole 40 mg tablet,delayed release (DR/EC) 40 mg PO BID tamsulosin 0.4 mg capsule 0.4 mg PO QHS Qty: 90 0RF citalopram 40 mg tablet 40 mg PO DAILY Qty: 90 1RF amlodipine 10 mg tablet 10 mg PO DAILY Qty: 90 1RF clonidine HCl 0.2 mg tablet 0.2 mg PO BID Qty: 180 1RF lisinopril-hydrochlorothiazide 20-12.5 mg tablet 1 tab PO DAILY Qty: 90 0RF Primary Care Provider: NOT,DEFINED Referrals: Doctor,Your [Non-Staff] - 3-5 Days (For repeat evaluation) Activity Restrictions/Additional Instructions: Call your doctor to get reevaluated before the weekend and to have your kidney function repeated to make sure your numbers are improving and not worsening. They will be more likely to improve if you are staying hydrated. Use the nausea medicine as needed and try to get some food in your stomach when taking your antibiotic. Take it as prescribed until completely finished. Print Language: Bangladeshi Disposition Disposition: Home, Self Care
[2024-08-01 15:18] LABS: Absolute Lymphocyte Count 1.64 X10^3/uL (0.83-4.51); Absolute Neutrophil Count 6.7 X10^3/uL (2.0-7.7); Basophil# 0.06 X10^3/uL; Basophil% 0.7 % (0-1); Hematocrit 35.9 % (40-54); Lymphocyte # 1.64 X10^3/ul (0.83-4.51); Mean Corp Hgb Conc 33.4 g/dL (32-36); Mean Corpuscular Volume 89.8 fL (80-94); Mean Platelet Vol. 8.8 fl (6.2-12.0); Monocyte# 0.68 X10^3/uL; Monocyte% 7.5 % (0-10); NRBC Flagged by Analyzer 0 % (0-5); Neutrophil # 6.67 X10^3/uL (2.7-7.7); Neutrophil % 73.3 % (47-70); Platelet Count 400 K/mm3 (150-450); RBC Distribution Width SD 42.7 fl (35.1-43.9); White Blood Count 9.1 K/mm3 (4.4-11.0)
[2024-08-01] MEDS: Ondansetron 4 MG/2 ML Vial IV (15:20)
[2024-08-01] MEDS: 0.9% Normal Saline (1000mL) 1,000 ML 1000 ML IV (15:20)
--- NOTE | 2024-08-01 15:30 | RAD_ITS ---
STUDY: X-RAY CHEST REASON FOR EXAM: Male, 64 years old. fatigue, vomiting TECHNIQUE: AP portable COMPARISON: None. FINDINGS: There is less than optimal inspiratory effort however the lungs are clear. There is no demonstrated pleural abnormality. Borderline cardiomegaly exaggerated by radiographic technique. Normal mediastinum and kiera. Normal visualized pulmonary arteries. Mildly calcified aortic arch and descending thoracic aorta. Normal visualized thoracic spine. Normal visualized ribs, clavicles, and shoulders. There is no demonstrated abnormality of the visualized soft tissue structures of the upper abdomen. RAD/Chest 1 View (Portable) IMPRESSION: No acute cardiopulmonary pathology Electronically Signed: Daniel Dale MD at 17:01 EDT ,
[2024-08-01 15:38] LABS: Mucous, Urine 0 SEEN /hpf (<or=2+); Red Blood Cells-Urine 0 SEEN /hpf (0-5); Squamous Epithelial Cells - UA 0 SEEN /hpf (0-5)
[2024-08-01 15:41] LABS: ALB/GLOB Ratio 1.1 RATIO (0.9-2.4); AST(SGOT) 19 U/L (15-37); Alanine Aminotransfer ALT/SGPT 8 U/L (16-61); Albumin, Serum 3.8 g/dL (3.2-5.0); Alkaline Phosphatase 86 U/L (45-117); Anion Gap 6 (5-15); BUN 21 mg/dL (7-18); BUN/Creat Ratio 10.2 RATIO (10-20); Calcium,Total 9.9 mg/dL (8.5-10.1); Chloride 106 mmol/L (98-107); Creatinine, Serum 2.06 mg/dL (0.70-1.30); EST Glomerular Filtration Rate 35 mL/min (>60); Est Glom Filt Rate - Afr Amer 42 mL/min (>60); Estimated Creatinine Clearance 41.97 ml/min; Globulin 3.4 g/dL (2.2-4.2); Glucose 101 mg/dL (74-106); Potassium 4.5 mmol/L (3.5-5.1); Protein, Total 7.2 g/dL (6.4-8.2); Sodium Level 135 mmol/L (136-145); Troponin-I HS 28 pg/mL (3.0-78.0)
[2024-08-01 15:43] LABS: Color, Urine Yellow (Yellow); Glucose, Dipstick 250 mg/dl (Normal); Ketone-Dipstick 5 mg/dl (Negative); Leukocyte Esterase-Dipstick 25 /ul (Negative); Nitrite-Dipstick Negative (Negative); Occult Blood-Urine Negative /ul (Negative); Protein-Dipstick 100 mg/dl (Negative); Urine Bilirubin Dipstick Negative (Negative); Urine Clarity Clear (Clear); Urine Urobilinogen Normal (Normal)
[2024-08-01 15:53] LABS: Bacteria RARE /hpf (None Seen); Transitional Epithelial - Ur 0-5 SEEN /hpf (0-5); White Blood Cells 0-5 SEEN /hpf (0-5)
[2024-08-01] MEDS: Smz/Tmp Ds Tablet 1 TABLET PO (18:00)
== END 2024-08-01 18:52 | disposition home or self-care (01) ==
PROVIDERS: Emergency Provider Emergency Medicine; Visit Provider Emergency Medicine
DX: R11.2 Nausea with vomiting, unspecified (principal); E11.9 Type 2 diabetes mellitus without complications; N17.9 Acute kidney failure, unspecified; Z96.652 Presence of left artificial knee joint; R19.7 Diarrhea, unspecified; E78.00 Pure hypercholesterolemia, unspecified; I10 Essential (primary) hypertension; E86.0 Dehydration; Z79.82 Long term (current) use of aspirin; Z86.73 Personal history of transient ischemic attack (TIA), and cerebral infarction without residual deficits; Z87.440 Personal history of urinary (tract) infections
CPT/HCPCS: 71045; 80053; 81001; 84484; 85025; 93005; 96361; 96374; 99285; J7030; A4216; J2405

== ENCOUNTER → 2025-02-07 | Outpatient (CLI) | payer MEDICARE, SELFPAY ==
--- NOTE | 2025-02-07 09:56 | RAD_ITS ---
PROCEDURE: HIP, UNI W/ PELVIS 2-3 VIEWS 02/07/2025 REASON FOR EXAM: FELL ABOUT A WEEK AGO, PAIN LEFT HIP TECHNIQUE: Frontal view of the pelvis and additional views of the left hip. COMPARISON: None. FINDINGS: Advanced disc space narrowing seen within the lower lumbar spine. CT a phleboliths seen within the pelvis. Dcia-ap-cxchrwov narrowing seen within the bilateral hip joints, [id number]-right. No fracture or dislocation is seen within the pelvic or bilateral hips. Scattered phleboliths seen within the right pelvis. RAD/HIP, UNI W/ Pelvis 2-3 Views IMPRESSION: No fracture is identified. Reading Location: [facility]
--- NOTE | 2025-02-07 09:56 | RAD_ITS ---
PROCEDURE: LUMBAR SPINE 2 OR 3 VIEWS 02/07/2025 REASON FOR EXAM: FALL TECHNIQUE: 2 view(s) of the lumbar spine COMPARISON: 06/15/2023 FINDINGS: No fracture or malalignment. No significant interval change since the prior study. Multilevel spondylosis/discogenic change again seen appears greatest at L4-5 and L5-S1 with similar appearing disc space narrowing and degenerative endplate change. Mildly prominent appearing small bowel loops upper abdomen may represent degree of ileus or possible enteritis not excluded, clinically correlate. RAD/Lumbar Spine 2 or 3 Views IMPRESSION: No fracture or malalignment. No significant interval change since the prior davian dy. Mildly prominent appearing small bowel loops upper abdomen may represent degree of ileus or possible enteritis not excluded, clinically correlate. Reading Location: [id number]
== END | disposition home or self-care (01) ==
LOC: MTRAD 09:56
PROVIDERS: PCP Internal Medicine; Referring Provider Internal Medicine; Visit Provider Internal Medicine
DX: M25.552 Pain in left hip (principal); W19.XXXA Unspecified fall, initial encounter
CPT/HCPCS: 72100; 73502

== ENCOUNTER → 2025-03-13 | Outpatient (CLI) | payer MEDICARE, SELFPAY ==
--- NOTE | 2025-03-13 14:57 | RAD_ITS ---
PROCEDURE: ANKLE MIN 3 VIEWS; FOOT MIN 3 VIEWS 03/13/2025 REASON FOR EXAM: PAIN TECHNIQUE: 4 views of the right ankle and three-view right foot (combined dictation). COMPARISON: None. RAD/Foot min 3 Views IMPRESSION: Prominent arterial calcification is noted. Large inferior calcaneal spur and large posterior calcaneal enthesophyte noted. Normal contour of the Achilles tendon is seen. No ankle joint effusion is evident. Mild degenerative changes of the right ankle are most apparent medially. No si gnificant joint narrowing is evident. Of the right foot, mild degenerative changes of the toes are seen, with mild-to -moderate degenerative changes of the 1st metatarsophalangeal joint. 1st metatarsal head bunion formation is also seen. No significant hallux valgus is noted. No acute fracture or dislocation is evident. Reading Location: [address]
--- NOTE | 2025-03-13 15:05 | RAD_ITS ---
PROCEDURE: ANKLE MIN 3 VIEWS; FOOT MIN 3 VIEWS 03/13/2025 REASON FOR EXAM: PAIN TECHNIQUE: 4 views of the right ankle and three-view right foot (combined dictation). COMPARISON: None. RAD/Ankle min 3 Views IMPRESSION: Prominent arterial calcification is noted. Large inferior calcaneal spur and large posterior calcaneal enthesophyte noted. Normal contour of the Achilles tendon is seen. No ankle joint effusion is evident. Mild degenerative changes of the right ankle are most apparent medially. No si gnificant joint narrowing is evident. Of the right foot, mild degenerative changes of the toes are seen, with mild-to -moderate degenerative changes of the 1st metatarsophalangeal joint. 1st metatarsal head bunion formation is also seen. No significant hallux valgus is noted. No acute fracture or dislocation is evident. Reading Location: [address]
== END | disposition home or self-care (01) ==
LOC: MTRAD 14:57
PROVIDERS: PCP Internal Medicine; Referring Provider Physician Assistant; Visit Provider Physician Assistant
DX: M25.571 Pain in right ankle and joints of right foot (principal); M79.671 Pain in right foot
CPT/HCPCS: 73610; 73630

== ENCOUNTER 2025-05-26 10:27 | Observation (INO) | payer MEDICARE, MEDICAID, SELFPAY ==
[2025-05-26] VITALS (20 sets, daily range): BP systolic 117–165; BP diastolic 68–85; PULSE 63–74; RESP 14–22; TEMP 36.6–37.5; O2SAT 93–99; BMI 26.6
--- NOTE | 2025-05-26 11:15 | CT_ITS ---
PROCEDURE: SPINE LUMBAR WITHOUT CONTRAST 05/26/2025 REASON FOR EXAM: RECENT SURGERY, FALL, PAIN Recent laminectomy on May 24, 2025. TECHNIQUE: SPINE LUMBAR WITHOUT CONTRAST Coronal and Sagittal reconstruction series were provided. One or more dose reduction techniques were used (e.g., Automated exposure control, adjustment of the mA and/or kV according to patient size, use of iterative reconstruction technique RADIATION DOSE SUMMARY: CTDlvol: 44.36 mGy DLP: 1333.08 mGycm FINDINGS: Vertebrae: Patient is status post laminectomy at the L3-L4, L4-L5 and L5-S1 levels. Postoperative soft tissue changes are seen in the overlying skin. There is a small amount of retroperitoneal air on the left side most likely related to the recent laminectomy. Alignment: Loss of the normal lumbar lordosis most likely secondary to muscle spasm. L1-2: Mild degree of disc space narrowing and spondylosis. Small amount of air is seen in the left retroperitoneal region. No significant stenosis seen. L2-3: Mild degree of disc space narrowing and disc degeneration. Spondylosis. Facet joint osteoarthritis. No significant stenosis seen. L3-4: Mild degree of disc space narrowing. Spondylosis. Facet joint osteoarthritis and hypertrophy. Diffuse posterior disc bulge. Small amount of air is seen within the left side of the thecal sac. L4-5: Marked degree of disc space narrowing with spondylosis and subchondral sclerosis. Postoperative changes are seen. L5-S1: Marked degree of disc space narrowing. Spondylosis. No significant stenosis seen. Sacrum: Unremarkable CT/Spine Lumbar without Contrast IMPRESSION: NO ACUTE LUMBAR FRACTURE. DEGENERATIVE CHANGES. Reading Location: [facility]
--- NOTE | 2025-05-26 11:15 | RAD_ITS ---
EXAM: XR Chest, 2 Views CLINICAL INDICATION: WEAKNESS TECHNIQUE: Frontal and lateral views of the chest. COMPARISON: No relevant prior studies available. FINDINGS: LUNGS AND PLEURAL SPACES: Bibasilar atelectasis or pneumonia. No pneumothorax. HEART: Unremarkable. No cardiomegaly. MEDIASTINUM: Unremarkable. Normal mediastinal contour. BONES/JOINTS: Unremarkable. No acute fracture. RAD/Chest PA and Lateral IMPRESSION: Bibasilar atelectasis or pneumonia. Reading Location: [facility]
--- NOTE | 2025-05-26 11:15 | CT_ITS ---
PROCEDURE: BRAIN/HEAD WITHOUT CONTRAST 05/26/2025 REASON FOR EXAM: FALL, HEAD INJURY TECHNIQUE: BRAIN/HEAD WITHOUT CONTRAST Coronal and Sagittal reconstruction series were provided. One or more dose reduction techniques were used (e.g., Automated exposure control, adjustment of the mA and/or kV according to patient size, use of iterative reconstruction technique. RADIATION DOSE SUMMARY: CTDlvol: 44.99 mGy DLP: 812.98 mGycm COMPARISON: None FINDINGS: Brain: Low density in the periventricular white matter suggests mild chronic small vessel ischemic changes. Focal area of encephalomalacia in the left temporal parietal lobes suggestive of old ischemic insult. No surrounding mass effect. CSF Spaces: Mild generalized cerebral atrophy Sinuses/Mastoids: Minimal mucosal thickening at the base of the left maxillary sinus. Bones: No fracture is seen. CT/Brain/Head without Contrast IMPRESSION: NO ACUTE FINDINGS Findings suggestive of encephalomalacia in the left temporoparietal lobes sugge stive of old ischemic insult. Reading Location: [facility]
--- NOTE | 2025-05-26 11:15 | CT_ITS ---
PROCEDURE: SPINE CERVICAL WITHOUT CONTRAS 05/26/2025 REASON FOR EXAM: FALL, PAIN TECHNIQUE: SPINE CERVICAL WITHOUT CONTRAS Coronal and Sagittal reconstruction series were provided. One or more dose reduction techniques were used (e.g., Automated exposure control, adjustment of the mA and/or kV according to patient size, use of iterative reconstruction technique. RADIATION DOSE SUMMARY: CTDlvol: 25.41 mGy DLP: 537.80 mGycm COMPARISON: None FINDINGS: Alignment: Straightening of the normal cervical lordosis most likely secondary to muscular spasm. Vertebrae: Vertebral heights are well-maintained. Soft Tissues: Calcific plaques at the level of the carotid bifurcations. Other: C1-2: Unremarkable C2-3: Mild degree of disc space narrowing. Spondylosis. No evidence of stenosis. C3-4: Mild degree of disc space narrowing. Mild anterior spondylosis. No significant abnormality is seen. C4-5: Mild degree of disc space narrowing. No significant stenosis seen. Spondylosis. C5-6: Mild degree of disc space narrowing. Anterior spondylosis. No significant stenosis seen. C6-7: Moderate degree of disc space narrowing and spondylosis. No significant stenosis seen. C7-T1: Unremarkable CT/Spine Cervical without Contras IMPRESSION: DEGENERATIVE CHANGES OF THE CERVICAL SPINE. NO EVIDENCE OF SIGNIFICANT OSSEOUS CENTRAL CANAL OR NEURAL FORAMINAL STENOSIS. Reading Location: [id number]
--- NOTE | 2025-05-26 11:16 | EKG12_ITS ---
Test Reason : Blood Pressure : */* mmHG Vent. Rate : 65 BPM Atrial Rate : 65 BPM P-R Int : 168 ms QRS Dur : 130 ms QT Int : 442 ms P-R-T Axes : 27 -45 96 degrees QTcB Int : 459 ms Sinus rhythm with Fusion complexes Left axis deviation Non-specific intra-ventricular conduction block Minimal voltage criteria for LVH, may be normal variant ( Adams product ) Possible Anterolateral infarct , age undetermined Abnormal ECG Confirmed by YUSUF CAVAZOS, LEIGH ([id number]), scientific editor AMINATA DUGGAN ([id number]) on 05/29/2025 7:31:11 AM Referred By: Confirmed By: LEIGH GOLDBERG MD
[2025-05-26 11:33] LABS: Hematocrit 42.5 % (40-54); Hemoglobin 14.1 g/dL (13.0-16.5); Immature Granulocytes Count 0.040 X10^3/uL (0.0-0.0); Mean Corp Hgb Conc 33.2 g/dL (32-36); Mean Corpuscular Volume 93.0 fL (80-94); Mean Platelet Vol. 9.2 fl (6.2-12.0); NRBC Flagged by Analyzer 0 % (0-5); Platelet Count 206 K/mm3 (150-450); RBC Distribution Width CV 13.0 % (11.6-14.6); RBC Distribution Width SD 44.7 fl (35.1-43.9); Red Blood Count 4.57 M/mm3 (4.6-6.2); White Blood Count 12.0 K/mm3 (4.4-11.0)
[2025-05-26] MEDS: 0.9% Normal Saline (1000mL) 1,000 ML 999 ML IV (11:36)
--- NOTE | 2025-05-26 11:38 | EX.ED.DYSGE1 ---
HPI History of Present Illness Chief Complaint: Weakness Narrative Narrative: Patient presenting today due to generalized weakness and difficulty ambulating. He had a L3/L4 decompression laminectomy and decompression of L3-L4, L4-L5 bilateral root foraminotomies at [facility] by Dr. Maciel. He was discharged home the next day. His daughter had advocated that he be discharged to a SNF due to concerns that he would not to do well at home but he was ultimately discharged home. He has had increased difficulty getting up on his own and lives at home with his who is unable to help him. He did have a fall yesterday in the bathroom getting up off the toilet and fell backwards, hitting his head against the wall and his lower back against the wall. He reports his low back pain has been somewhat worse since his fall. 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 He is currently alert and oriented x 4. Patient denies fevers, chills, abdominal pain, urinary symptoms, bowel/bladder incontinence, and saddle anesthesia/paresthesia. He has a PMH of HLD, HTN, T2DM, Parkinson's disease, and dementia. [facility] Medical History Dementia Pain in joint involving right ankle and foot Wears glasses Depression Bladder disease High cholesterol Back pain Parkinson's disease Stroke/cerebrovascular accident Heartburn Non-smoker History of pain when walking History of edema History of echocardiogram Cardiology follow-up encounter Bilateral primary osteoarthritis of knee Pain in both knees Family history of prostate problems Kidney stones Hypertension Diabetes Arthritis Home Medications ?Medication ?Instructions ?Recorded ?Last Taken ?Type citalopram 40 mg tablet 40 mg PO DAILY DEPRESSION #90 02/07/25 Unknown Rx TABLETS clonidine HCl 0.2 mg tablet 0.2 mg PO BID BP #180 tabs 02/07/25 Unknown Rx lisinopril 10 mg tablet 10 mg PO QDAY #90 tabs 02/08/25 Unknown Rx pantoprazole 40 mg tablet,delayed 40 mg PO BID #180 tabs 02/08/25 Unknown Rx release tamsulosin 0.4 mg capsule 0.4 mg PO QHS PROSTATE #90 caps 02/08/25 Unknown Rx carbidopa 25 mg-levodopa 100 mg 2 tab PO TID PARKINSON 02/09/25 Unknown History tablet naproxen 500 mg tablet 500 mg PO BID #10 tabs 03/13/25 Unknown Rx acetaminophen 500 mg tablet 1,000 mg (2 x 500 mg) PO Q8 #90 03/27/25 Unknown Rx tabs aspirin 81 mg tablet,delayed 81 mg PO DAILY HEART HEALTH #90 03/27/25 Unknown Rx release tabs atorvastatin 20 mg tablet 20 mg PO QHS #90 tabs 03/27/25 Unknown Rx dapagliflozin propanediol 10 mg 10 mg PO DAILY CHOLESTEROL #90 tabs 03/27/25 Unknown Rx tablet oxycodone 5 mg tablet 5 mg PO 4X/DAY PRN PRN pain 05/26/25 Unknown History Allergy/AdvReac Type Severity Reaction Status Date / Time acetaminophen (From Vicodin) Allergy Intermediate Nausea/Vom/ Verified 05/26/25 10:29 Diarrhea hydrocodone (From Vicodin) Allergy Intermediate Nausea/Vom/ Verified 05/26/25 10:29 Diarrhea gabapentin Allergy Mild memory Verified 05/26/25 10:29 Family History Mother Hypertension Myocardial infarction Colon cancer CVA (cerebral vascular accident) Depression Diabetes Brother Colon cancer Cancer STOMACH CVA (cerebral vascular accident) Hypertension Father Hypertension Sister Diabetes Surgical History H/O laminectomy S/P knee replacement S/P total knee arthroplasty Social History household members: spouse current occupational status: retired current occupation: [employer] Smoking Status: Never smoker Electronic Cigarette Use: not used alcohol intake: never substance use type: does not use what type of physical activity do you participate in: none seatbelt use: sometimes do you feel safe at home: Yes ROS ROS ED Constitutional Constitutional ED: Denies chills or fever(s) Cardiovascular Cardiovascular: Denies chest pain Respiratory/Chest Respiratory/Chest: Denies dyspnea Gastrointestinal Gastrointestinal: Denies abdominal pain, nausea or vomiting Genitourinary Genitourinary ED: Denies dysuria, hematuria or urinary urgency Musculoskeletal Musculoskeletal: Reports back pain and neck pain Integumentary Denies Abrasions or rash Neurologic Neurologic: Reports weakness; Denies headache(s) or paresthesias EXAM Physical Exam Const Vital Signs: 05/26/25 10:29 05/26/25 11:15 05/26/25 11:30 Temperature 98.8 F Temperature Source Temporal Pulse Rate 74 67 67 Respiratory Rate 18 18 19 H Respiratory Pattern Blood Pressure 123/68 H 119/75 117/73 Blood Pressure Mean 86 89 86 Pulse Ox 97 93 94 05/26/25 11:31 05/26/25 11:45 05/26/25 11:45 Temperature Temperature Source Pulse Rate 63 Respiratory Rate 17 Respiratory Pattern Normal Blood Pressure 123/73 H 123/73 H Blood Pressure Mean 88 88 Pulse Ox 95 05/26/25 12:00 05/26/25 12:15 05/26/25 12:17 Temperature Temperature Source Pulse Rate 66 65 Respiratory Rate 14 15 Respiratory Pattern Blood Pressure 134/74 H 151/74 H Blood Pressure Mean 93 98 Pulse Ox 94 99 05/26/25 12:30 05/26/25 12:45 05/26/25 13:00 Temperature Temperature Source Pulse Rate 65 65 69 Respiratory Rate 17 21 H 17 Respiratory Pattern Blood Pressure 126/81 H 154/79 H 133/78 H Blood Pressure Mean 93 102 92 Pulse Ox 97 94 95 05/26/25 13:15 05/26/25 13:30 05/26/25 13:45 Temperature Temperature Source Pulse Rate 65 68 Respiratory Rate 16 15 Respiratory Pattern Blood Pressure 134/72 H 122/74 H 129/77 H Blood Pressure Mean 89 90 93 Pulse Ox 94 95 05/26/25 14:00 05/26/25 14:15 Temperature Temperature Source Pulse Rate 63 Respiratory Rate 22 H Respiratory Pattern Blood Pressure 143/76 H 136/85 H Blood Pressure Mean 96 101 Pulse Ox 93 Positive well nourished, well developed and no apparent distress General Appearance ED: well developed HEENT Reports normocephalic and head/scalp atraumatic Mouth ED: Yes moist mucous membranes normal Eyes PERRL and EOMs intact bilaterally Neck full ROM and supple Neck Narrative: Minimal midline mid cervical tenderness to palpation Chest Wall inspection of chest normal Resp normal respiratory effort and clear to auscultation bilaterally Cardio regular rate and regular rhythm GI soft to palpation, non-tender, non-distended and no masses Back/Spine normal ROM and normal to inspection Back/Spine Narrative: Surgical incision to the lumbar spine without dehiscence, warmth, erythema, or purulence Extremity normal to inspection and full ROM Neuro oriented x3, CN's II-XII intact bilaterally, moves all extremities, no focal motor deficits and no sensory deficits noted Sensorium / Orientation: awake and alert Psych mental status grossly normal and thought process normal Skin no rashes or lesions noted and no wounds MDM MDM MDM Narrative Medical decision making narrative: Patient presenting today due to concerns for generalized weakness and difficulty ambulating wanting SNF placement. He just had laminectomy of his lumbar spine 2 days ago at [facility]. His daughter had advocated that he be placed in a rehab facility postop but they deemed that he was safe to go home. He did have a fall yesterday try to get up off the toilet and is having a hard time getting up on his own, he is able to walk once he is up but daughter reports there is nobody at home that can help him get aside from his who is not much help. Patient is agreeable with this plan. Daughter reports he has a history of sundowners and dementia, he is alert and oriented x 4 here. Given his fall yesterday, head and neck CTs will be obtained to assess for intracranial bleed and cervical fracture, thoracic and lumbar spine CTs will be obtained to assess for fracture and complications given recent surgery. Brain, cervical spine, lumbar spine CT negative for any acute findings. His head CT looks like he may have had an old ischemic infarct. Chest x-ray shows bilateral atelectasis versus pneumonia, he does not have a cough or dyspnea to suggest pneumonia. He did just have surgery making atelectasis more likely. I spoke with the hospitalist, patient will be admitted in stable condition. Lab Data Attestation: I reviewed the patient's lab results. Labs: Laboratory Results - last 24 hr 05/26/25 05/26/25 11:25 14:17 WBC 12.0 H RBC 4.57 L Hgb 14.1 Hct 42.5 MCV 93.0 MCH 30.9 MCHC 33.2 RDW Std Deviation 44.7 H RDW Coeff of Mario 13.0 Plt Count 206 MPV 9.2 Immature Gran % (Auto) 0.300 Neut % (Auto) 71.5 H Lymph % (Auto) 16.6 L [place] % (Auto) 10.9 H Eos % (Auto) 0.3 Baso % (Auto) 0.4 Absolute Neuts (auto) 8.6 H Absolute Lymphs (auto) 2.00 Nucleated RBC % 0 Sodium 139 Potassium 4.1 Chloride 101 Carbon Dioxide 27.1 Anion Gap 11 BUN 15 Creatinine 1.19 Est GFR (MDRD) Non-Af 67 BUN/Creatinine Ratio 12.9 Glucose 137 H Calcium 9.6 Urine Color Yellow Urine Clarity Clear Urine pH 6.0 Ur Specific [place] 1.010 Urine Protein 30 H Urine Glucose (UA) 1000 H Urine Ketones Negative Urine Occult Blood 10 H Urine Nitrite Negative Urine Bilirubin Negative Urine Urobilinogen Normal Ur Leukocyte Esterase Negative Urine RBC 0 SEEN Urine WBC 0-5 SEEN Ur Squamous Epith Cells 0-5 SEEN Urine Bacteria 0 SEEN Urine Mucus 0 SEEN Radiography X-Ray: Read by ED Physician Diagnostic Testing: Clinical Impression(s) from Imaging Studies Brain CT 05/26/25 11:15 IMPRESSION: NO ACUTE FINDINGS Findings suggestive of encephalomalacia in the left temporoparietal lobes suggestive of old ischemic insult. Reading Location: [id number] Cervical Spine CT 05/26/25 11:15 IMPRESSION: DEGENERATIVE CHANGES OF THE CERVICAL SPINE. NO EVIDENCE OF SIGNIFICANT OSSEOUS CENTRAL CANAL OR NEURAL FORAMINAL STENOSIS. Reading Location: [id number] Chest X-Ray 05/26/25 11:15 IMPRESSION: Bibasilar atelectasis or pneumonia. Reading [facility] Lumbar Spine CT 05/26/25 11:15 IMPRESSION: NO ACUTE LUMBAR FRACTURE. DEGENERATIVE CHANGES. Reading Location: [id number] Thoracic Spine CT 05/26/25 11:51 IMPRESSION: NO ACUTE THORACIC FRACTURE. DEGENERATIVE CHANGES. Reading Location: [id number] EKG Initial EKG: Comments: 65 bpm, sinus rhythm, no ST elevation Discharge Plan Triage Chief Complaint: Weakness ED Midlevel Provider: Mehreen Gallagher ED Provider: Wilman,Kaz Dx/Rx/DC Orders Clinical Impression: Other acute postprocedural pain, Difficulty walking, Generalized weakness Primary Care Provider: Allyson Soler Disposition Disposition: Acute Care Hospital [facility]
--- NOTE | 2025-05-26 11:51 | CT_ITS ---
PROCEDURE: SPINE THORACIC WITHOUT CONTRAS 05/26/2025 REASON FOR EXAM: BACK PAIN TECHNIQUE: SPINE THORACIC WITHOUT CONTRAS Coronal and Sagittal reconstruction series were provided. One or more dose reduction techniques were used (e.g., Automated exposure control, adjustment of the mA and/or kV according to patient size, use of iterative reconstruction technique). RADIATION DOSE SUMMARY: CTDlvol: 40.55 mGy DLP: 1755.87 mGycm COMPARISON: None FINDINGS: Alignment: Normal alignment. Bones: Spondylosis and multilevel disc space narrowing. Soft Tissues: Atherosclerotic calcific plaques of the aortic arch and descending thoracic aorta. Other: CT/Spine Thoracic without Contras IMPRESSION: NO ACUTE THORACIC FRACTURE. DEGENERATIVE CHANGES. Reading Location: [facility]
[2025-05-26 11:54] LABS: Anion Gap 11 (5-15); BUN 15 mg/dL (4-19); BUN/Creat Ratio 12.9 RATIO (10-20); Calcium,Total 9.6 mg/dL (7.6-11.0); Carbon Dioxide 27.1 mmol/L (21.0-32.0); Chloride 101 mmol/L (98-108); Glucose 137 mg/dL (70-99); Potassium 4.1 mmol/L (3.3-5.1)
[2025-05-26 14:22] LABS: Mucous, Urine 0 SEEN /hpf (<or=2+); Red Blood Cells-Urine 0 SEEN /hpf (0-5)
[2025-05-26 14:28] LABS: Color, Urine Yellow (Yellow); Glucose, Dipstick 1000 mg/dl (Normal); Ketone-Dipstick Negative (Negative); Leukocyte Esterase-Dipstick Negative /ul (Negative); Nitrite-Dipstick Negative (Negative); Occult Blood-Urine 10 /ul (Negative); Protein-Dipstick 30 mg/dl (Negative); Specific Gravity, Urine 1.010 (1.002-1.030); Urine Bilirubin Dipstick Negative (Negative)
--- NOTE | 2025-05-26 14:34 | PCM.HP.STD ---
HPI - General General Date of Admission: 05/26/25 Date of Service: 05/26/25 Chief Complaint: Generalized weakness after recent lumbar spine procedure HPI Narrative NICK ARORA, is a 65 M who presented to [facility] ED on 05/26/2025 with generalized weakness after recent lumbar spine procedure. [facility] records reviewed. Patient had L3-5 decompressive laminectomy procedure done at [facility] on 05/24 for history of lumbar canal stenosis with neurogenic claudication and difficulty with ambulation. Patient tolerated the procedure well and had borderline therapy scores there but opted to be discharged home with home health care on 05/25. Lives at home with his . Daughter is in town from [place] and noted that family pushed for SNF placement but patient ultimately decided for home health care. However, he has had general weakness at home and suffered a fall yesterday in the bathroom; noted he had difficulty getting off the toilet and fell backwards, hitting his head and lower back against the wall. Notes that his low back pain has been somewhat worse since that fall and given his level of debility, daughter brought him in for evaluation for placement. In the ED he was hemodynamically stable on room air at rest. CBC and BMP were benign. CT brain/C/T-spine were largely unremarkable. CT L-spine showed known degenerative changes with postoperative changes noted, no new concerning findings. Chest x-ray was unremarkable. Given patient is stable from an L-spine standpoint postoperatively, does not require transfer to [facility] at this time. Hospitalist was then contacted for admission. I saw the patient at bedside in the ED, daughter and son-in-law were present. Patient was mildly fatigued appearing but otherwise laying back comfortably in bed, conversing normally, in no acute distress. When he attempted to sit up for me to evaluate his back on exam, he had significant weakness noted and was unable to sit up without assistance. He does report postop low back pain that has been tolerable with oxycodone. Notes that his lower extremity numbness and tingling is much improved since the procedure. Denies any other acute concerns currently. Will be admitted for further management. [facility] Medical History Dementia Pain in joint involving right ankle and foot Wears glasses Depression Bladder disease High cholesterol Back pain Parkinson's disease Stroke/cerebrovascular accident Heartburn Non-smoker History of pain when walking History of edema History of echocardiogram Cardiology follow-up encounter Bilateral primary osteoarthritis of knee Pain in both knees Family history of prostate problems Kidney stones Hypertension Diabetes Arthritis Home Medications ?Medication ?Instructions ?Recorded ?Last Taken ?Type citalopram 40 mg tablet 40 mg PO DAILY DEPRESSION #90 02/07/25 Unknown Rx TABLETS clonidine HCl 0.2 mg tablet 0.2 mg PO BID BP #180 tabs 02/07/25 Unknown Rx lisinopril 10 mg tablet 10 mg PO QDAY #90 tabs 02/08/25 Unknown Rx pantoprazole 40 mg tablet,delayed 40 mg PO BID #180 tabs 02/08/25 Unknown Rx release tamsulosin 0.4 mg capsule 0.4 mg PO QHS PROSTATE #90 caps 02/08/25 Unknown Rx carbidopa 25 mg-levodopa 100 mg 2 tab PO TID PARKINSON 02/09/25 Unknown History tablet naproxen 500 mg tablet 500 mg PO BID #10 tabs 03/13/25 Unknown Rx acetaminophen 500 mg tablet 1,000 mg (2 x 500 mg) PO Q8 #90 03/27/25 Unknown Rx tabs aspirin 81 mg tablet,delayed 81 mg PO DAILY HEART HEALTH #90 03/27/25 Unknown Rx release tabs atorvastatin 20 mg tablet 20 mg PO QHS #90 tabs 03/27/25 Unknown Rx dapagliflozin propanediol 10 mg 10 mg PO DAILY CHOLESTEROL #90 tabs 03/27/25 Unknown Rx tablet oxycodone 5 mg tablet 5 mg PO 4X/DAY PRN PRN pain 05/26/25 Unknown History Allergy/AdvReac Type Severity Reaction Status Date / Time acetaminophen (From Vicodin) Allergy Intermediate Nausea/Vom/ Verified 05/26/25 10:29 Diarrhea hydrocodone (From Vicodin) Allergy Intermediate Nausea/Vom/ Verified 05/26/25 10:29 Diarrhea gabapentin Allergy Mild memory Verified 05/26/25 10:29 Family History Mother Hypertension Myocardial infarction Colon cancer CVA (cerebral vascular accident) Depression Diabetes Brother Colon cancer Cancer STOMACH CVA (cerebral vascular accident) Hypertension Father Hypertension Sister Diabetes Surgical History H/O laminectomy S/P knee replacement S/P total knee arthroplasty Social History household members: spouse current occupational status: retired current occupation: [employer] Smoking Status: Never smoker Electronic Cigarette Use: not used alcohol intake: never substance use type: does not use what type of physical activity do you participate in: none seatbelt use: sometimes do you feel safe at home: Yes ROS Constitutional Constitutional: Reports fatigue and weakness; Denies chills or fever(s) Eyes Eyes: Denies change in vision Cardiovascular Cardiovascular: Denies chest pain Respiratory/Chest Respiratory/Chest: Denies shortness of breath at rest Gastrointestinal Gastrointestinal: Denies abdominal pain Musculoskeletal Musculoskeletal: Reports back pain; Denies arthralgias or myalgias Neurologic Neurologic: Denies dizziness, focal weakness, headache(s), numbness or tingling Vital Signs Vital Signs Vital Signs: 05/26/25 10:29 05/26/25 11:15 05/26/25 11:30 Temperature 98.8 F Temperature Source Temporal Pulse Rate 74 67 67 Respiratory Rate 18 18 19 H Respiratory Pattern Blood Pressure 123/68 H 119/75 117/73 Blood Pressure Mean 86 89 86 Pulse Ox 97 93 94 05/26/25 11:31 05/26/25 11:45 05/26/25 11:45 Temperature Temperature Source Pulse Rate 63 Respiratory Rate 17 Respiratory Pattern Normal Blood Pressure 123/73 H 123/73 H Blood Pressure Mean 88 88 Pulse Ox 95 05/26/25 12:00 05/26/25 12:15 05/26/25 12:17 Temperature Temperature Source Pulse Rate 66 65 Respiratory Rate 14 15 Respiratory Pattern Blood Pressure 134/74 H 151/74 H Blood Pressure Mean 93 98 Pulse Ox 94 99 05/26/25 12:30 05/26/25 12:45 05/26/25 13:00 Temperature Temperature Source Pulse Rate 65 65 69 Respiratory Rate 17 21 H 17 Respiratory Pattern Blood Pressure 126/81 H 154/79 H 133/78 H Blood Pressure Mean 93 102 92 Pulse Ox 97 94 95 05/26/25 13:15 05/26/25 13:30 05/26/25 13:45 Temperature Temperature Source Pulse Rate 65 68 Respiratory Rate 16 15 Respiratory Pattern Blood Pressure 134/72 H 122/74 H 129/77 H Blood Pressure Mean 89 90 93 Pulse Ox 94 95 05/26/25 14:00 05/26/25 14:15 Temperature Temperature Source Pulse Rate 63 Respiratory Rate 22 H Respiratory Pattern Blood Pressure 143/76 H 136/85 H Blood Pressure Mean 96 101 Pulse Ox 93 Physical Exam Const alert, oriented x3 and no apparent distress Constitutional Narrative: Elderly male, class I obesity, mildly fatigued appearing, otherwise laying back comfortably in bed, conversing normally, in no acute distress. General Appearance: cooperative and comfortable HEENT normocephalic, head/scalp atraumatic, hearing grossly normal bilaterally, nasal mucous membranes and turbinates normal and moist oral mucous membranes Eyes PERRL, EOMs intact bilaterally and conjunctivae normal Neck full ROM Chest inspection of chest normal Resp normal respiratory effort, normal air movement, no use of accessory muscles and clear to auscultation bilaterally Cardio regular rate, regular rhythm, no murmurs and peripheral pulses 2+ throughout GI normal to inspection, nondistended, normoactive bowel sounds, soft to palpation, non-tender and non-distended Back/Spine Back/Spine Narrative: Unable to sit up in bed without assistance due to general weakness and some low back discomfort. Extremity normal to inspection and no pedal edema Skin no rashes or lesions noted Neuro moves all extremities and no focal motor deficits Speech: speech normal Psych mental status grossly normal Results Lab / Micro Data 05/26/25 11:25 05/26/25 11:25 Labs: Laboratory Results - last 24 hr 05/26/25 11:25: WBC 12.0 H, RBC 4.57 L, Hgb 14.1, Hct 42.5, MCV 93.0, MCH 30.9, MCHC 33.2, RDW Std Deviation 44.7 H, RDW Coeff of Mario 13.0, Plt Count 206, MPV 9.2, Immature Gran % (Auto) 0.300, Neut % (Auto) 71.5 H, Lymph % (Auto) 16.6 L, Maries % (Auto) 10.9 H, Eos % (Auto) 0.3, Baso % (Auto) 0.4, Absolute Neuts (auto) 8.6 H, Absolute Lymphs (auto) 2.00, Nucleated RBC % 0, Sodium 139, Potassium 4.1, Chloride 101, Carbon Dioxide 27.1, Anion Gap 11, BUN 15, Creatinine 1.19, Est GFR (MDRD) Non-Af 67, BUN/Creatinine Ratio 12.9, Glucose 137 H, Calcium 9.6 05/26/25 14:17: Urine Color Yellow, Urine Clarity Clear, Urine pH 6.0, Ur Specific [place] 1.010, Urine Protein 30 H, Urine Glucose (UA) 1000 H, Urine Ketones Negative, Urine Occult Blood 10 H, Urine Nitrite Negative, Urine Bilirubin Negative, Urine Urobilinogen Normal, Ur Leukocyte Esterase Negative Imaging Radiology Impression Brain CT 05/26/25 11:15 IMPRESSION: NO ACUTE FINDINGS Findings suggestive of encephalomalacia in the left temporoparietal lobes suggestive of old ischemic insult. Reading Location: [id number] Cervical Spine CT 05/26/25 11:15 IMPRESSION: DEGENERATIVE CHANGES OF THE CERVICAL SPINE. NO EVIDENCE OF SIGNIFICANT OSSEOUS CENTRAL CANAL OR NEURAL FORAMINAL STENOSIS. Reading Location: [facility] Chest X-Ray 05/26/25 11:15 IMPRESSION: Bibasilar atelectasis or pneumonia. Reading Location: [facility] Lumbar Spine CT 05/26/25 11:15 IMPRESSION: NO ACUTE LUMBAR FRACTURE. DEGENERATIVE CHANGES. Reading Location: [id number] Thoracic Spine CT 05/26/25 11:51 IMPRESSION: NO ACUTE THORACIC FRACTURE. DEGENERATIVE CHANGES. Reading Location: [id number] Assessment & Plan Assessment/Plan (1) Generalized weakness: (2) Difficulty walking: PLAN: Plan Patient is a 65-year-old male who presented to [facility] ED on 05/26/2025 with generalized weakness after recent lumbar spine procedure. 1. Acute on chronic debility with mechanical fall at home in setting of recent lumbar spine procedure ? Admit under observation status to [facility]. PT/OT/case management consulted. History of lumbar stenosis with neurogenic claudication, had planned L3-5 decompressive laminectomy done at [facility] on 05/24. Tolerated procedure well, no intraoperative complications noted. Borderline therapy scores postoperatively but patient opted for home with home health care, despite family's recommendation to pursue SNF placement. Patient had fall when trying to stand up from the toilet where he fell backwards and hit his head and low back. CT brain/C/T spine in the ED were unremarkable. CT L-spine showed chronic degenerative changes with postoperative changes noted, no other new concerning findings so no need for transfer to [facility] facility. Presume patient will need to placement on discharge, appreciate therapy recommendations. Pain control with scheduled Tylenol and oxycodone 5 mg every 6 hours as needed. Senna ordered for bowel regimen. 2. Parkinson's disease with dementia and history of sundowning ? Per history. Continue home Sinemet. Chronic medical conditions: ? Class I obesity: BMI 34 on admit. Complicates hospital course and care. ? Hypertension, hyperlipidemia, history of CVA: Normotensive on admit. Continue home aspirin, statin, clonidine and lisinopril. ? Anxiety/depression: Stable. Continue home citalopram. ? GERD: Continue home PPI. ? BPH with obstructive symptoms: Continue home Flomax. ? Type 2 diabetes mellitus: A1c 6.3% on admit. Blood glucose 137. Will hold home dapagliflozin and treat with sliding scale insulin with meals while inpatient. DVT prophylaxis: Lovenox CODE STATUS: Full code, verified Expected disposition: SNF, 1 to 2 days Total clinical time spent by myself addressing the patient's medical issues, reviewing all the data, and collaborating with patient's care team: 75 minutes. Charges/Coding Visit Charges Inpatient E&M: 73932 Init Hosp L3
[2025-05-26 14:47] LABS: Squamous Epithelial Cells - UA 0-5 SEEN /hpf (0-5)
--- NOTE | 2025-05-26 15:03 | ED.RN ---
Family asked this nurse if the patient could have his Parkinson medication. Family brought in medication. Dr. Stovall stated that this was OK and to administer to patient. [id number] 25-100 tablets PO given at 1430.
--- NOTE | 2025-05-26 16:05 | CM.ED ---
Social Work SW spoke with patient and patients daughter. Daughter states that patient lives with his who is ten years older than patient. Patient had back surgery on Thursday and went home. Daughter states patient is unable to care for self at this time and he fell at home this morning. Daughter and patient are looking at SNF for rehab. Josi Moore, FOOT WORKER, FINANCE BUSINESS PARTNER
[2025-05-26] MEDS: 0.9% Saline Lock 10 ML Syringe IV (20:16)
[2025-05-27 01:30] VITALS: BP 160/85; PULSE 66; RESP 18; TEMP 36.8; O2SAT 93
[2025-05-27 05:42] LABS: Hematocrit 39.8 % (40-54); Hemoglobin 13.2 g/dL (13.0-16.5); Mean Corp Hgb Conc 33.2 g/dL (32-36); Mean Corpuscular Volume 92.6 fL (80-94); Mean Platelet Vol. 9.6 fl (6.2-12.0); Platelet Count 205 K/mm3 (150-450); RBC Distribution Width CV 12.9 % (11.6-14.6); RBC Distribution Width SD 43.6 fl (35.1-43.9); Red Blood Count 4.30 M/mm3 (4.6-6.2); White Blood Count 11.3 K/mm3 (4.4-11.0)
[2025-05-27 06:12] LABS: Anion Gap 11 (5-15); BUN 15 mg/dL (4-19); BUN/Creat Ratio 13.6 RATIO (10-20); Calcium,Total 9.1 mg/dL (7.6-11.0); Carbon Dioxide 26.2 mmol/L (21.0-32.0); Chloride 101 mmol/L (98-108); Estimated Creatinine Clearance 72.18 ml/min (50-250); Glucose 112 mg/dL (70-99); Potassium 4.1 mmol/L (3.3-5.1)
[2025-05-27 06:53] VITALS: BP 169/90; PULSE 61; RESP 16; TEMP 36.2; O2SAT 96
[2025-05-27] MEDS: Aspirin E.C. 81 MG Tablet PO (07:30)
[2025-05-27 07:40] VITALS: O2SAT 95
[2025-05-27 08:16] VITALS: BP 138/78; PULSE 61; RESP 18; TEMP 36.4; O2SAT 98
[2025-05-27] MEDS: Polyethylene Glycol 3350 17 GM PACKET PO (09:52)
--- NOTE | 2025-05-27 11:48 | CASEMGMT ---
Social Work SW met w/pt, reviewed prior level of function and anticipated discharge plan. PCP: Allyson Soler Specialists: Neurology: Dr. Lauren, Orthopedics: Dr. Felipe Preferred pharmacy: [facility] Insurance/Prescription benefit: AARP Medicare LNOK: , two daughters LW/POA: POA for healthcare on file, w/living will provision initialed, daughter Carmina is HCPOA Living arrangements: Pt lives in a one story home w/his , no steps to enter. Pt tells SW he is normally independent w/ADLS, however due to his back pain is needing help, and needs more help than his can provide Transportation: Pt states he no longer is able to drive due to diagnoses of Parkinson's and dementia, his also does not drive. Family gets pt to appts. DME: Wheelchair, walker, shower chair, toilet riser. Pt states he normally does not need the walker at baseline. SNF/HHC: Pt has been to [facility] before. Pt had [facility] set up but they had not started yet. SW spoke w/pt about d/c plan, [facility] okay w/SW calling daughter Carmina. SW called, she is here and came back to the room. SW spoke w/pt, daughter Carmina and daughter's significant other Rayshawn in the room(Rayshawn is also the alternate POA). They do still live in [place], Carmina states they come up here from [place] for all of pt's appts. They came up for pt's back surgery at [facility] earlier this week. Daughter explains that she told [facility] he would not be able to manage at home and needed rehab. As per daughter [facility] said he was walking too well however so rehab was not an option. Pt then went home and could not manage. We spoke about where pt may want to go. SW explained will get them a list, asked if they wanted the [place] area again. Carmina states now, as pt's other daughter who lives in that area is in rehab herself. They would prefer the [place] area. [facility] SW explained will get them a list of the other facilities in pt's insurance network. SW explained the insurance authorization process, educated that we will try to get a skilled stay approved through his AARP, if they deny we can see about using his Medicaid to get him in someplace. SW did let pt and family know that TCU and [place] do not take Medicaid hoewever. Daughter states understanding. SW will create a SNF list in [facility] and give to daughter for other options. SW will follow up shortly. LBIRADO Enriquez
--- NOTE | 2025-05-27 12:19 | CASEMGMT ---
Addendum entered by Sol Quiñonez 05/27/25 12:35: Social Work Referral made to TCU. SW will follow up Thursday. LIBRADO Enriquez Original Note: Social Work SW created in [facility] a list of senior living facilities in network w/pt's insurance, in pt's preferred geographic area and complete w/quality and resource use data. SW provided the list to pt's daughter, asked her to review for additional choices in the event TCU or [place] cannot take pt. Daughter states understanding. SW will make referral to [facility]CU later today. LIBRADO Enriquez
--- NOTE | 2025-05-27 12:25 | PN_ITS ---
Subjective Subjective Patient seen and examined with his nurse by his bedside. His daughter was by his bedside. He did complain of some back pain. He was admitted on account of weakness and debility. He recently had lumbar spine surgery at [facility] on 05/24/2025. Daughter says despite their request for him to be discharged to rehab, he was discharged home and had been getting weaker at home. They therefore requesting placement. He has no other complaints and has remained hemodynamically stable. Objective Data Objective Data Vital Signs: Vital Signs Temp Pulse Resp BP Pulse Ox O2 Del Method 97.6 F L 61 18 138/78 H 98 Room Air 05/27/25 08:16 05/27/25 08:16 05/27/25 08:16 05/27/25 08:16 05/27/25 08:16 05/27/25 08:16 Oxygen Delivery Method Room Air Weight: 196 lb 10.437 oz Body Mass Index (BMI) 26.6 Intake & Output: Intake and Output for Last 24 Hours 05/25/25 05/26/25 05/27/25 23:59 23:59 23:59 Intake Total 1000 / 1000 Output Total 875 / 875 Balance 1000 / 500 -875 / -875 Lab / Micro Data 05/27/25 05:01 05/27/25 05:01 Labs: Laboratory Results - last 24 hr 05/26/25 11:25: Hemoglobin A1c 6.3 H 05/26/25 14:17: Urine Color Yellow, Urine Clarity Clear, Urine pH 6.0, Ur Specific [place] 1.010, Urine Protein 30 H, Urine Glucose (UA) 1000 H, Urine Ketones Negative, Urine Occult Blood 10 H, Urine Nitrite Negative, Urine Bilirubin Negative, Urine Urobilinogen Normal, Ur Leukocyte Esterase Negative, Urine RBC 0 SEEN, Urine WBC 0-5 SEEN, Ur Squamous Epith Cells 0-5 SEEN, Urine Bacteria 0 SEEN, Urine Mucus 0 SEEN 05/26/25 20:22: POC Glucose 111 H 05/27/25 05:01: WBC 11.3 H, RBC 4.30 L, Hgb 13.2, Hct 39.8 L, MCV 92.6, MCH 30.7, MCHC 33.2, RDW Std Deviation 43.6, RDW Coeff of Mario 12.9, Plt Count 205, MPV 9.6, Sodium 138, Potassium 4.1, Chloride 101, Carbon Dioxide 26.2, Anion Gap 11, BUN 15, Creatinine 1.09, Estim Creat Clear Calc 72.18, Est GFR (MDRD) Non-Af 74, BUN/Creatinine Ratio 13.6, Glucose 112 H, Calcium 9.1 05/27/25 11:23: POC Glucose 156 H Radiography Diagnostic Testing: Radiology Impression Brain CT 05/26/25 11:15 IMPRESSION: NO ACUTE FINDINGS Findings suggestive of encephalomalacia in the left temporoparietal lobes suggestive of old ischemic insult. Reading Location: [facility] Cervical Spine CT 05/26/25 11:15 IMPRESSION: DEGENERATIVE CHANGES OF THE CERVICAL SPINE. NO EVIDENCE OF SIGNIFICANT OSSEOUS CENTRAL CANAL OR NEURAL FORAMINAL STENOSIS. Reading Location: [facility] Chest X-Ray 05/26/25 11:15 IMPRESSION: Bibasilar atelectasis or pneumonia. Reading Location: [facility] Lumbar Spine CT 05/26/25 11:15 IMPRESSION: NO ACUTE LUMBAR FRACTURE. DEGENERATIVE CHANGES. Reading Location: [facility] Thoracic Spine CT 05/26/25 11:51 IMPRESSION: NO ACUTE THORACIC FRACTURE. DEGENERATIVE CHANGES. Reading Location: [facility] Physical Exam Const alert, oriented x3 and no apparent distress General Appearance: cooperative HEENT normocephalic, head/scalp atraumatic, moist oral mucous membranes and oropharynx normal Eyes EOMs intact bilaterally Neck supple Lymph Lymphatic: no lymphedema noted Resp Resp Narrative: mildly diminished breath sounds bibasally, no wheezes or crackles. On room air. Cardio regular rhythm, S1 normal heart sound, S2 normal heart sound and no murmurs GI normal to inspection, nondistended, normoactive bowel sounds, soft to palpation, non-tender and non-distended Extremity normal capillary refill, no clubbing, cyanosis or edema and no calf tenderness General Extremity: no tenderness to palpation of joints or extremities Neuro no focal motor deficits and no sensory deficits noted Motor Exam: general weakness Psych thought process normal and cooperative Mood & Affect: flat affect Assessment & Plan Assessment/Plan (1) Generalized weakness: PLAN: Plan #Debilty and weakness in the setting of recent lumbar spine surgery * Patient had L3-L5 decompressive laminectomy at [facility] on 05/24/2025. He tolerated the procedure well. * According to his daughter they had asked for placement but he was eventually discharged home. Patient has been weak at home and fell backwards while standing up from the toilet and hit his head and lower back. * CT of the brain and CT of the cervical spine in the ED were unremarkable. CT of the lumbar spine showed chronic degenerative changes with postoperative changes noted and no other new concerning findings. PT OT on board. Fall precautions. On p.o. Tylenol, oxycodone and IV morphine as needed for pain * Will need placement. Case management on board. #Parkinson's disease with dementia: On Sinemet #Hypertension: On clonidine and lisinopril #Hyperlipidemia: On statin #History of CVA: On aspirin and statin #Anxiety and depression: On citalopram #GERD: On PPI #BPH with obstructive symptoms: On Flomax #Type 2 diabetes mellitus: On insulin sliding scale. Checks ACHS. Appropriately fluids about who was bedside DVT prophylaxis: On Lovenox. Disposition: Awaiting placement. * Charges/Coding Visit Charges Inpatient E&M: 21202 Subs Hosp L2
--- NOTE | 2025-05-27 13:40 | CASEMGMT ---
Met with patient to review SIMMONS form. SIMMONS form and its content were verbally explained and patient?s questions were answered to the best of my ability. Patient voiced understanding and signed SIMMONS form. Patient provided a copy of signed SIMMONS form and original placed in patient?s chart. Patient had no further questions or concerns.
[2025-05-27 15:00] VITALS: BP 131/69; PULSE 66; RESP 18; TEMP 36.6; O2SAT 96
[2025-05-27 22:45] VITALS: BP 172/93; PULSE 61; RESP 18; TEMP 36.9; O2SAT 93
[2025-05-28 05:59] LABS: Hematocrit 40.8 % (40-54); Hemoglobin 13.3 g/dL (13.0-16.5); Immature Granulocytes Count 0.050 X10^3/uL (0.0-0.0); Mean Corp Hgb Conc 32.6 g/dL (32-36); Mean Corpuscular Volume 92.9 fL (80-94); Mean Platelet Vol. 9.9 fl (6.2-12.0); NRBC Flagged by Analyzer 0 % (0-5); Platelet Count 215 K/mm3 (150-450); RBC Distribution Width CV 12.4 % (11.6-14.6); RBC Distribution Width SD 43.0 fl (35.1-43.9); Red Blood Count 4.39 M/mm3 (4.6-6.2); White Blood Count 10.1 K/mm3 (4.4-11.0)
[2025-05-28 06:16] VITALS: BP 146/75; PULSE 52; RESP 16; TEMP 36.7; O2SAT 95
[2025-05-28] MEDS: 0.9% Saline Lock 10 ML Syringe IV ×3 (06:19→20:48)
[2025-05-28 06:39] LABS: Anion Gap 13 (5-15); BUN 19 mg/dL (4-19); BUN/Creat Ratio 19.2 RATIO (10-20); Calcium,Total 9.5 mg/dL (7.6-11.0); Carbon Dioxide 23.8 mmol/L (21.0-32.0); Chloride 99 mmol/L (98-108); Estimated Creatinine Clearance 79.47 ml/min (50-250); Glucose 88 mg/dL (70-99); Potassium 4.1 mmol/L (3.3-5.1)
[2025-05-28 07:27] VITALS: O2SAT 95
[2025-05-28 08:27] VITALS: BP 159/87; PULSE 97; RESP 18; TEMP 36.6; O2SAT 97
[2025-05-28] MEDS: Aspirin E.C. 81 MG Tablet PO (08:38)
[2025-05-28] MEDS: Polyethylene Glycol 3350 17 GM PACKET PO (08:47)
--- NOTE | 2025-05-28 10:09 | VDLE_ITS ---
Reason For Study Reason For Study: Pain BLE RIGHT LEFT GSV is normal. GSV is normal. CFV is compressible, spontaneous, phasic, competent CFV is compressible, spontaneous, phasic, competent, and demonstrates normal augmentation. and demonstrates normal augmentation. FV is compressible, spontaneous, phasic, competent FV is compressible, spontaneous, phasic, competent and demonstrates normal augmentation. and demonstrates normal augmentation. POP V is compressible, spontaneous, phasic, competent POP V is compressible, spontaneous, phasic, competent and demonstrates normal augmentation. and demonstrates normal augmentation. T/P Trunk is compressible. T/P Trunk is compressible. PTV is compressible. PTV is compressible. RT PerV is compressible. LT PerV is compressible. Procedure This is a venous duplex using B-mode, color flow and spectral Doppler. Exam performed portable in patient room. A preliminary report was called and/or faxed to Maryam GOMEZ. VL/Venous Duplex US - David Extrem Interpretation Summary Deep veins of the lower extremities are bilaterally patent and compressible seg mentally. There is no evidence of deep vein thrombosis on either side. Valvular competence appears intact within the p roximal deep venous systems bilaterally. The great saphenous veins appear bilaterally patent and compressible segmentall y. Ordering Physician: Mishel Vivar Referring Physician: Allyson Soler Performed By: Ella Veloz, RDCS, RVT
--- NOTE | 2025-05-28 10:55 | PCM.PROGNOTE ---
Subjective Subjective Patient seen and examined with his nurse by his bedside. His daughter was also by his bedside. Patient complained of some right calf overnight. He had no active complaints this morning. Review of systems otherwise negative. Calcium and hemodynamically stable. Objective Data Objective Data Vital Signs: Vital Signs Temp Pulse Resp BP Pulse Ox O2 Del Method 97.8 F 97 18 159/87 H 97 Room Air 05/28/25 08:27 05/28/25 08:27 05/28/25 08:27 05/28/25 08:27 05/28/25 08:27 05/28/25 08:27 Oxygen Delivery Method Room Air Weight: 196 lb 10.437 oz Body Mass Index (BMI) 26.6 Intake & Output: Intake and Output for Last 24 Hours 05/26/25 05/27/25 05/28/25 23:59 23:59 23:59 Intake Total 1000 / 1000 100 / 100 Output Total 1100 / 1100 Balance 1000 / 500 -1100 / -1100 100 / 100 Lab / Micro Data 05/28/25 04:54 05/28/25 04:54 Labs: Laboratory Results - last 24 hr 05/27/25 11:23: POC Glucose 156 H 05/27/25 16:44: POC Glucose 140 H 05/27/25 23:26: POC Glucose 114 H 05/28/25 04:54: WBC 10.1, RBC 4.39 L, Hgb 13.3, Hct 40.8, MCV 92.9, MCH 30.3, MCHC 32.6, RDW Std Deviation 43.0, RDW Coeff of Mario 12.4, Plt Count 215, MPV 9.9, Immature Gran % (Auto) 0.500, Neut % (Auto) 59.2, Lymph % (Auto) 27.9, Wagoner % (Auto) 9.8, Eos % (Auto) 2.0, Baso % (Auto) 0.6, Absolute Neuts (auto) 6.0, Absolute Lymphs (auto) 2.80, Nucleated RBC % 0, Sodium 136, Potassium 4.1, Chloride 99, Carbon Dioxide 23.8, Anion Gap 13, BUN 19, Creatinine 0.99, Estim Creat Clear Calc 79.47, Est GFR (MDRD) Non-Af 83, BUN/Creatinine Ratio 19.2, Glucose 88, Calcium 9.5 Physical Exam Const alert, oriented x3 and no apparent distress Constitutional Narrative: Elderly male, class I obesity, mildly fatigued appearing, otherwise laying back comfortably in bed, conversing normally, in no acute distress. General Appearance: cooperative and comfortable HEENT normocephalic, head/scalp atraumatic, hearing grossly normal bilaterally, nasal mucous membranes and turbinates normal, moist oral mucous membranes and oropharynx normal Eyes PERRL, EOMs intact bilaterally and conjunctivae normal Neck full ROM and supple Chest inspection of chest normal Resp normal respiratory effort, normal air movement, no use of accessory muscles and clear to auscultation bilaterally Cardio regular rate, regular rhythm, S1 normal heart sound, S2 normal heart sound, no murmurs and peripheral pulses 2+ throughout GI normal to inspection, nondistended, normoactive bowel sounds, soft to palpation, non-tender and non-distended Back/Spine Back/Spine Narrative: intact dressing over lower back. Extremity normal to inspection, normal capillary refill, no clubbing, cyanosis or edema, no calf tenderness and no pedal edema General Extremity: no tenderness to palpation of joints or extremities Skin no rashes or lesions noted Neuro moves all extremities, no focal motor deficits and no sensory deficits noted Speech: speech normal Motor Exam: general weakness Psych mental status grossly normal, thought process normal and cooperative Mood & Affect: flat affect Assessment & Plan Assessment/Plan (1) Generalized weakness: PLAN: Plan #Debilty and weakness in the setting of recent lumbar spine surgery Patient had L3-L5 decompressive laminectomy at [facility] on 05/24/2025. He tolerated the procedure well. According to his daughter they had asked for placement but he was eventually discharged home. Patient has been weak at home and fell backwards while standing up from the toilet and hit his head and lower back. CT of the brain and CT of the cervical spine in the ED were unremarkable. CT of the lumbar spine showed chronic degenerative changes with postoperative changes noted and no other new concerning findings. PT OT on board. Fall precautions. On p.o. Tylenol, oxycodone and IV morphine as needed for pain Will need placement. Case management on board patient complaining of RLE tenderness and throbbing in the calf area today. DUplex of both LEs ordered #Parkinson's disease with dementia: On Sinemet #Hypertension: On clonidine and lisinopril #Hyperlipidemia: On statin #History of CVA: On aspirin and statin #Anxiety and depression: On citalopram #GERD: On PPI #BPH with obstructive symptoms: On Flomax #Type 2 diabetes mellitus: On insulin sliding scale. Checks ACHS. Appropriately fluids about who was bedside DVT prophylaxis: On Lovenox. Disposition: Awaiting placement. Charges/Coding Visit Charges Inpatient E&M: 11415 Subs Hosp L2
[2025-05-28 14:28] VITALS: BP 155/85; PULSE 59; RESP 16; TEMP 36.7; O2SAT 95
[2025-05-28 20:45] VITALS: BP 175/93; PULSE 64; RESP 18; TEMP 36.8; O2SAT 93
[2025-05-29 04:43] VITALS: BP 167/93; PULSE 60; RESP 16; TEMP 36.4; O2SAT 93
[2025-05-29 05:23] LABS: Hematocrit 41.5 % (40-54); Hemoglobin 14.0 g/dL (13.0-16.5); Immature Granulocytes Count 0.030 X10^3/uL (0.0-0.0); Mean Corp Hgb Conc 33.7 g/dL (32-36); Mean Corpuscular Volume 91.8 fL (80-94); Mean Platelet Vol. 9.5 fl (6.2-12.0); NRBC Flagged by Analyzer 0 % (0-5); Platelet Count 257 K/mm3 (150-450); RBC Distribution Width CV 12.3 % (11.6-14.6); RBC Distribution Width SD 41.7 fl (35.1-43.9); Red Blood Count 4.52 M/mm3 (4.6-6.2); White Blood Count 8.8 K/mm3 (4.4-11.0)
[2025-05-29 05:48] LABS: Anion Gap 13 (5-15); BUN 24 mg/dL (4-19); BUN/Creat Ratio 26.6 RATIO (10-20); Calcium,Total 9.5 mg/dL (7.6-11.0); Carbon Dioxide 24.3 mmol/L (21.0-32.0); Chloride 100 mmol/L (98-108); Estimated Creatinine Clearance 87.42 ml/min (50-250); Glucose 99 mg/dL (70-99); Potassium 4.1 mmol/L (3.3-5.1)
[2025-05-29 09:26] VITALS: BP 164/82; PULSE 63; RESP 16; TEMP 36.3; O2SAT 94
[2025-05-29] MEDS: 0.9% Saline Lock 10 ML Syringe IV (09:31)
--- NOTE | 2025-05-29 10:15 | CASEMGMT ---
Social Work SW did send a referral to [place] this morning. SW then spoke w/[facility] and they can take pt, are trying for precert. SW let [facility] know that we are trying for TCU here. [facility] will continue to follow. LIBRADO Enriquez
--- NOTE | 2025-05-29 10:33 | PCM.PN.HOSP ---
Subjective Subjective Doing well daughter relates some issues with sundowning and being awake overnight. Objective Data Objective Data Vital Signs: Vital Signs Temp Pulse Resp BP Pulse Ox O2 Del Method 97.3 F L 63 16 164/82 H 94 Room Air 05/29/25 09:26 05/29/25 09:26 05/29/25 09:26 05/29/25 09:26 05/29/25 09:26 05/29/25 10:00 Oxygen Delivery Method Room Air Weight: 196 lb 10.437 oz Body Mass Index (BMI) 26.6 Intake & Output: Intake and Output for Last 24 Hours 05/28/25 05/29/25 05/30/25 03:59 03:59 03:59 Intake Total 100 / 100 Output Total 600 / 600 750 / 750 Balance -600 / -600 -650 / -650 Lab / Micro Data 05/29/25 04:52 05/29/25 04:52 Labs: Laboratory Results - last 24 hr 05/29/25 04:52: WBC 8.8, RBC 4.52 L, Hgb 14.0, Hct 41.5, MCV 91.8, MCH 31.0, MCHC 33.7, RDW Std Deviation 41.7, RDW Coeff of Mario 12.3, Plt Count 257, MPV 9.5, Immature Gran % (Auto) 0.300, Neut % (Auto) 60.3, Lymph % (Auto) 29.2, Mcdonald % (Auto) 7.7, Eos % (Auto) 1.8, Baso % (Auto) 0.7, Absolute Neuts (auto) 5.3, Absolute Lymphs (auto) 2.58, Nucleated RBC % 0, Sodium 137, Potassium 4.1, Chloride 100, Carbon Dioxide 24.3, Anion Gap 13, BUN 24 H, Creatinine 0.90, Estim Creat Clear Calc 87.42, Est GFR (MDRD) Non-Af 93, BUN/Creatinine Ratio 26.6 H, Glucose 99, Calcium 9.5 Physical Exam Narrative General: Alert, Oriented x3, Cooperative, No apparent distress HEENT: Atraumatic, PERRLA, EOMI, Normocephalic Oral: Moist Mucosa Neck: Supple, No JVD Lungs: Diminished, Normal air movement, No rhonchi, No wheeze, No rales Cardiovascular: Regular rate, Regular Rhythm, Normal S1, Normal S2, No murmurs Abdomen: Soft, Non Tender, Non-Distended, No Hepato-splenomegaly Extremities: No edema, Capillary Refill Less than 3 Seconds Skin: No rashes, No breakdown Musculoskeletal: No Tenderness to Palpation of Joints or Extremities Neurological: No focal neurological deficits, moves all extremities, slight Parkinson's tremor Psych/Mental Status: Normal Affect, Appropriate Assessment & Plan Assessment/Plan (1) Generalized weakness: PLAN: Plan 1. Debility and weakness after lumbar spine surgery at [facility] in the setting of Parkinson's disease with dementia ? PT/OT for placement ? He had an L3-5 decompressive laminectomy on 05/24/2025 and was discharged home ? He has significant debility with getting up from a seated position or laying position ? Consult case management for discharge planning and possible placement ? He is on Sinemet for his Parkinson's ? He is also on trazodone and Seroquel for sleep at night at home it does not appear that these were continued here in the hospital 2. DM2 ? Sliding scale insulin ? Accu-Cheks ? Will monitor make adjustments as necessary ? Will hold his Jardiance 3. Essential HTN/HLD/history of CVA ? Continue with his home blood pressure medications ? Will monitor make adjustments as necessary ? Continue with his statin ? Continue with aspirin 4. Anxiety/depression ? Continue with his home medications ? Stable 5. GERD ? Stable ? Continue with PPI 6. BPH with obstruction ? Stable ? Continue with Flomax DVT: Lovenox Charges/Coding Visit Charges Inpatient E&M: 76124 Subs Hosp L2
[2025-05-29] MEDS: Polyethylene Glycol 3350 17 GM PACKET PO (11:12)
[2025-05-29] MEDS: Aspirin E.C. 81 MG Tablet PO (11:12)
--- NOTE | 2025-05-29 11:13 | CASEMGMT ---
Social Work SW let pt, pt's daughter Carmina and daughter's significant other Rayshawn in room. SW updated pt and family that TCU here in the hospital did take pt and are working on precert. SW explained concern that pt may be denied as he is walking well. If pt is denied, we can see if we can send pt under his Medicaid to a correction facility in the community, explained TCU here does not take Medicaid. Carmina and Rayshawn state they have a list in the car, they want a facility in [place], it's next on the list after the one in [place]. SW reviewed the list, it is [facility]. SW will make referral to [facility] if pt is denied by insurance for TCU. SW will continue to follow. LIBRADO Enriquez
--- NOTE | 2025-05-29 14:25 | TREXTCAR_ITS ---
Diet Diet Order/Speech Therapy: INPATIENT Hospital Diet / Speech Therapy Order(s) 05/26/25 16:06 Diet: Cardiac - Heart Healthy Food consistency:: Regular Liquid Consistency:: Regular/Thin Routine Orders/Code Status Routine Lab Work: CBC and BMP Code Status: Full Code DC O2, CPAP, BIPAP needs Home O2 Discharge instructions: No Wound(s) Back: Wound Type: Surgical Incision Therapies Physical Therapy: Eval and Treat Occupational Therapy: Eval and Treat Problem/Diagnosis (1) Generalized weakness: Status: Acute Code(s): R53.1 - Weakness Plan 1. Debility and weakness after lumbar spine surgery at [facility] in the setting of Parkinson's disease with dementia ? PT/OT for placement ? He had an L3-5 decompressive laminectomy on 05/24/2025 and was discharged home ? He has significant debility with getting up from a seated position or laying position ? Consult case management for discharge planning and possible placement ? He is on Sinemet for his Parkinson's ? He is also on trazodone and Seroquel for sleep at night at home it does not appear that these were continued here in the hospital 2. DM2 ? Sliding scale insulin ? Accu-Cheks ? Will monitor make adjustments as necessary ? Will hold his Jardiance 3. Essential HTN/HLD/history of CVA ? Continue with his home blood pressure medications ? Will monitor make adjustments as necessary ? Continue with his statin ? Continue with aspirin 4. Anxiety/depression ? Continue with his home medications ? Stable 5. GERD ? Stable ? Continue with PPI 6. BPH with obstruction ? Stable ? Continue with Flomax DVT: Lovenox Allergies/Procedures Done in Hospital Allergies acetaminophen (From Vicodin) Allergy (Intermediate, Verified 05/26/25 10:29) Nausea/Vom/Diarrhea hydrocodone (From Vicodin) Allergy (Intermediate, Verified 05/26/25 10:29) Nausea/Vom/Diarrhea gabapentin Allergy (Mild, Verified 05/26/25 10:29) memory behaviors Procedures: None Type of Care/Length of Stay Estimated LOS: Convalescent Care Less Than 30 days Type of Care Needed: Skilled Rehab Potential: Good Prognosis: Good Additional Orders/Day of Discharge Day of Discharge: 05/29/25 Discharge Plan Admission Admit Date/Time: 05/26/25 14:34 Attending Provider: Kotsonis,Manuel F Primary Care Provider: Allyson Soler Consulting Providers: Jos Teresa; Mishel Vivar Discharge Orders/Prescriptions Prescriptions: Continued clonidine HCl 0.2 mg tablet 0.2 mg PO BID Qty: 180 1RF citalopram 40 mg tablet 40 mg PO DAILY Qty: 90 1RF oxycodone 5 mg tablet 5 mg PO 4X/DAY PRN PRN (Reason: pain) lisinopril 10 mg tablet 10 mg PO QDAY Qty: 90 1RF pantoprazole 40 mg tablet,delayed release (DR/EC) 40 mg PO BID Qty: 180 1RF tamsulosin 0.4 mg capsule 0.4 mg PO QHS Qty: 90 1RF carbidopa-levodopa 25-100 mg tablet 2 tab PO TID acetaminophen 500 mg tablet 1,000 mg PO Q8 Qty: 90 0RF aspirin 81 mg tablet,delayed release (DR/EC) 81 mg PO DAILY Qty: 90 0RF dapagliflozin propanediol 10 mg tablet 10 mg PO DAILY Qty: 90 0RF atorvastatin 20 mg tablet 20 mg PO QHS Qty: 90 0RF Referrals / Follow Up: Allyson Soler MD [Primary Care Provider] - Disposition Disposition (needs filled in before D/C Order can be placed): Group Home Facility
--- NOTE | 2025-05-29 14:59 | CASEMGMT ---
Social Work Pt approved to go to TCU today. Physician completed all discharge instructions, they were sent to TCU. [facility] Ramsay let pt and family know pt will go to TCU today. No further needs, pt to TCU, skilled today. LIBRADO Enriquez
[2025-05-29 15:23] VITALS: BP 148/87; PULSE 59; RESP 18; TEMP 36.7; O2SAT 94
--- NOTE | 2025-05-29 15:34 | PHA.DC.MR.R ---
Pharmacy [place] Med Reconciliation Pharmacy Service has performed discharge medication reconciliation for this patient. The patient's discharge medication list was reviewed for discrepancies and discrepancies were resolved. Medications at Discharge Home Medications citalopram 40 mg tablet 40 mg PO DAILY DEPRESSION #90 TABLETS 02/07/25 clonidine HCl 0.2 mg tablet 0.2 mg PO BID BP #180 tabs 02/07/25 lisinopril 10 mg tablet 10 mg PO QDAY #90 tabs 02/08/25 pantoprazole 40 mg tablet,delayed release 40 mg PO BID #180 tabs 02/08/25 tamsulosin 0.4 mg capsule 0.4 mg PO QHS PROSTATE #90 caps 02/08/25 carbidopa 25 mg-levodopa 100 mg tablet 2 tab PO TID PARKINSON 02/09/25 acetaminophen 500 mg tablet 1,000 mg (2 x 500 mg) PO Q8 #90 tabs 03/27/25 aspirin 81 mg tablet,delayed release 81 mg PO DAILY HEART HEALTH #90 tabs 03/27/25 dapagliflozin propanediol 10 mg tablet 10 mg PO DAILY CHOLESTEROL #90 tabs 03/27/25 oxycodone 5 mg tablet 5 mg PO 4X/DAY PRN PRN pain 05/26/25 atorvastatin 20 mg tablet 20 mg PO QHS #90 tabs 05/29/25 quetiapine 25 mg tablet 50 mg (2 x 25 mg) PO QHS #0 tabs 05/29/25
--- NOTE | 2025-05-29 15:44 | DS.PCM_ITS ---
Providers Date of Admission: 05/26/25 Primary Care Physician: Dr. Allyson Soler MD Reason For Visit: WEAKNESS, RECENT L SPINE SURGERY Diagnosis Discharge Diagnosis (1) Generalized weakness: Status: Acute Code(s): R53.1 - Weakness Medications at Discharge Home Medications citalopram 40 mg tablet 40 mg PO DAILY DEPRESSION #90 TABLETS 02/07/25 clonidine HCl 0.2 mg tablet 0.2 mg PO BID BP #180 tabs 02/07/25 lisinopril 10 mg tablet 10 mg PO QDAY #90 tabs 02/08/25 pantoprazole 40 mg tablet,delayed release 40 mg PO BID #180 tabs 02/08/25 tamsulosin 0.4 mg capsule 0.4 mg PO QHS PROSTATE #90 caps 02/08/25 carbidopa 25 mg-levodopa 100 mg tablet 2 tab PO TID PARKINSON 02/09/25 acetaminophen 500 mg tablet 1,000 mg (2 x 500 mg) PO Q8 #90 tabs 03/27/25 aspirin 81 mg tablet,delayed release 81 mg PO DAILY HEART HEALTH #90 tabs 03/27/25 dapagliflozin propanediol 10 mg tablet 10 mg PO DAILY CHOLESTEROL #90 tabs 03/27/25 oxycodone 5 mg tablet 5 mg PO 4X/DAY PRN PRN pain 05/26/25 atorvastatin 20 mg tablet 20 mg PO QHS #90 tabs 05/29/25 quetiapine 25 mg tablet 50 mg (2 x 25 mg) PO QHS #0 tabs 05/29/25 Hospital Course Operations None Procedures None Summary of Care Provided Minutes Spent on Discharge: 33 Hospital Course: Per HPI: NICK ARORA, is a 65 M who presented to [facility] ED on 05/26/2025 with generalized weakness after recent lumbar spine procedure. [facility] records reviewed. Patient had L3-5 decompressive laminectomy procedure done at [facility] on 05/24 for history of lumbar canal stenosis with neurogenic claudication and difficulty with ambulation. Patient tolerated the procedure well and had borderline therapy scores there but opted to be discharged home with home health care on 05/25. Lives at home with his . Daughter is in town from [place] and noted that family pushed for SNF placement but patient ultimately decided for home health care. However, he has had general weakness at home and suffered a fall yesterday in the bathroom; noted he had difficulty getting off the toilet and fell backwards, hitting his head and lower back against the wall. Notes that his low back pain has been somewhat worse since that fall and given his level of debility, daughter brought him in for evaluation for placement. In the ED he was hemodynamically stable on room air at rest. CBC and BMP were benign. CT brain/C/T-spine were largely unremarkable. CT L-spine showed known degenerative changes with postoperative changes noted, no new concerning findings. Chest x-ray was unremarkable. Given patient is stable from an L-spine standpoint postoperatively, does not require transfer to [facility] at this time. Hospitalist was then contacted for admission. I saw the patient at bedside in the ED, daughter and son-in-law were present. Patient was mildly fatigued appearing but otherwise laying back comfortably in bed, conversing normally, in no acute distress. When he attempted to sit up for me to evaluate his back on exam, he had significant weakness noted and was unable to sit up without assistance. He does report postop low back pain that has been tolerable with oxycodone. Notes that his lower extremity numbness and tingling is much improved since the procedure. Denies any other acute concerns currently. Will be admitted for further management. Hospital Course: 1. Debility and weakness after lumbar spine surgery at [facility] in the setting of Parkinson's disease with dementia?65-year-old male recently had an L3-5 decompressive laminectomy on 05/24/2025 at the [facility] and then was discharged home. Unfortunately his is 10 years older than him and she physically cannot help him out of the chair and so he developed worsening weakness at home and was brought in for possible placement. PT and OT evaluated him and he was excepted to the transitional care unit for ongoing rehab. His Parkinson's is stable and his daughter says that he was recently started on Seroquel at home to help him sleep which we will continue on discharge. I discussed with him the plan for discharge today expressed understanding of the risks and benefits of [facility] and would like to go today. 2. Type 2 diabetes, essential hypertension, hyperlipidemia, history of CVA, anxiety, depression, GERD, BPH with obstruction are all chronic medical conditions which complicate his care. His home medications were continued where appropriate Weight / BMI Weight Weight: 196 lb 10.437 oz Body Mass Index (BMI) 26.6 ABG / Lab / Microbiology Data 05/29/25 04:52 05/29/25 04:52 Laboratory: Laboratory Results - last 24 hr 05/29/25 04:52: WBC 8.8, RBC 4.52 L, Hgb 14.0, Hct 41.5, MCV 91.8, MCH 31.0, MCHC 33.7, RDW Std Deviation 41.7, RDW Coeff of Mario 12.3, Plt Count 257, MPV 9.5, Immature Gran % (Auto) 0.300, Neut % (Auto) 60.3, Lymph % (Auto) 29.2, Petroleum % (Auto) 7.7, Eos % (Auto) 1.8, Baso % (Auto) 0.7, Absolute Neuts (auto) 5.3, Absolute Lymphs (auto) 2.58, Nucleated RBC % 0, Sodium 137, Potassium 4.1, Chloride 100, Carbon Dioxide 24.3, Anion Gap 13, BUN 24 H, Creatinine 0.90, Estim Creat Clear Calc 87.42, Est GFR (MDRD) Non-Af 93, BUN/Creatinine Ratio 26.6 H, Glucose 99, Calcium 9.5 D/C Instructions DC O2, CPAP, BIPAP Needs Home O2 Discharge instructions: No Meaningful Use Info Meaningful Use Meaningful Use Diagnoses (Choose all that apply): None applicable Discharge Plan Admission Admit Date/Time: 05/26/25 14:34 Attending Provider: Manuel Dorantes Primary Care Provider: Allyson Soler Consulting Providers: Jos Teresa; Mishel Vivar Discharge Orders/Prescriptions Prescriptions: New quetiapine 25 mg Tablet 50 mg PO QHS Qty: 0 0RF Continued clonidine HCl 0.2 mg tablet 0.2 mg PO BID Qty: 180 1RF citalopram 40 mg tablet 40 mg PO DAILY Qty: 90 1RF oxycodone 5 mg tablet 5 mg PO 4X/DAY PRN PRN (Reason: pain) lisinopril 10 mg tablet 10 mg PO QDAY Qty: 90 1RF pantoprazole 40 mg tablet,delayed release (DR/EC) 40 mg PO BID Qty: 180 1RF tamsulosin 0.4 mg capsule 0.4 mg PO QHS Qty: 90 1RF carbidopa-levodopa 25-100 mg tablet 2 tab PO TID acetaminophen 500 mg tablet 1,000 mg PO Q8 Qty: 90 0RF aspirin 81 mg tablet,delayed release (DR/EC) 81 mg PO DAILY Qty: 90 0RF dapagliflozin propanediol 10 mg tablet 10 mg PO DAILY Qty: 90 0RF atorvastatin 20 mg tablet 20 mg PO QHS Qty: 90 0RF Referrals / Follow Up: Allyson Soler MD [Primary Care Provider] - Disposition Disposition (needs filled in before D/C Order can be placed): Alf Facility Charges/Coding Visit Charges Inpatient E&M: 08018 Disch Hosp >30min
--- NOTE | 2025-05-29 17:20 | NURSING ---
Called report to TCU, all questions answered at this time. Pt being transported to TCU
--- NOTE | 2025-05-30 07:33 | CASEMGMT ---
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 As per Shayla, pt's has been resistant to having an aide put in the home, though she had someone available through [facility]. SW left a message for Shayla this morning, letting her know pt did get approved and went to TCU yesterday. LIBRADO Enriquez
== END 2025-05-29 17:22 | disposition skilled nursing facility (03) ==
LOC: ED 14:46 → MS3 14:59
PROVIDERS: Physician Assistant; Student in an Organized Health Care Education/Training Program; Admitting Provider Hospitalist; Emergency Provider Emergency Medicine; PCP Internal Medicine; Visit Provider Family Medicine
DX: R53.1 Weakness (principal); G20.A1 Parkinson's disease without dyskinesia, without mention of fluctuations; F02.80 Dementia in other diseases classified elsewhere, unspecified severity, without behavioral disturbance, psychotic disturbance, mood disturbance, and anxiety; E11.9 Type 2 diabetes mellitus without complications; G89.18 Other acute postprocedural pain; F05 Delirium due to known physiological condition; F41.8 Other specified anxiety disorders; Z68.34 Body mass index [BMI] 34.0-34.9, adult; I10 Essential (primary) hypertension; R53.81 Other malaise; K21.9 Gastro-esophageal reflux disease without esophagitis; Z79.82 Long term (current) use of aspirin; R26.2 Difficulty in walking, not elsewhere classified; E78.00 Pure hypercholesterolemia, unspecified; E66.811 Obesity, class 1; Z79.84 Long term (current) use of oral hypoglycemic drugs; N40.1 Benign prostatic hyperplasia with lower urinary tract symptoms; N13.8 Other obstructive and reflux uropathy; Z79.899 Other long term (current) drug therapy; R20.0 Anesthesia of skin; M79.604 Pain in right leg; M79.605 Pain in left leg
CPT/HCPCS: 36415; 70450; 71046; 72125; 72128; 72131; 80048; 81001; 82962; 83036; 85025; 85027; 93005; 93970; 94668; 96361; 96372; 96374; 96376; 97116; 97161; 97165; 97530; 97535; 99221; 99284; A4216; G0378; J2405

== ENCOUNTER 2025-05-29 18:37 | Inpatient (IN) | payer MEDICARE, MEDICAID, SELFPAY ==
[2025-05-29 18:45] VITALS: BMI 25.8
[2025-05-29 19:45] VITALS: BP 161/90; PULSE 77; RESP 19; TEMP 37.2; O2SAT 96
--- OUTSIDE RECORDS SUMMARY | 2025-05-29 20:26 | XMS RPT_ITS | CCD ---
Author Organization [facility]ini[facility] Care Team Providers Care Senior Report Developer Name Role Phone LISETTE CAVAZOS, JAMAAL Primary Care Unavailable LISETTE CAVAZOS, JAMAAL Attending Unavailable LISETTE CAVAZOS, JAMAAL Attending Unavailable LISETTE CAVAZOS, JAMAAL Primary Care Unavailable Dr. Amaya No Attending Provider 1([phone]) MD Maximiliano Delvalle Attending Provider [phone] Dr. Fidel Mckeon Attending Provider 1([phone]) Dr. Amaya No Primary Care Provider Dr. Amaya No Referring Provider 1(330) Dr. Amaya No Primary Care Provider Dr. Amaya No Referring Provider 1(330) Dr. Nawaf Rdz Attending Provider [phone] Dr. Amaya No Attending Provider 1(330) MD Maximiliano Delvalle Attending Provider [phone] Dr. Mac Ge Attending Provider 1(330) Dr. Fidel Mckeon Attending Provider 1([facility]) Unavailable Primary Care Provider UnavailDr. Amaya Jeffries Primary Care Provider Dr. Amaya No Referring Provider 1(330) MD Maximiliano Delvalle Attending Provider [phone] Dr. Mac Ge Attending Provider 1(330) Dr. Fidel Mckeon Attending Provider 1(330) Dr. Amaya No Attending Provider 1(330) Amaya No MD Primary Care Provider 1([phone] ) Aga Benitez MD Primary Care Provider Amaya No MD Primary Care Provider [phone] LIZBETH FERRARA Consulting Unavailable [facility] Primary Care Unavailable ABILIO YOU Attending Unavailable ABILIO YOU Admitting Unavailable JAYLENE RIVERA Referring Unavailable Unavailable Primary Care Provider UnavailBALDEV Roldan Admitting Unavailable BALDEV BOSCH Attending Unavailable Khalida Herring PA-C Unavailable NOT, DEFINED Referring Provider Unavailable Dr. Amaya No MD Primary Care Provider [phone] Ryder CAVAZOS, Dr. Valadez Attending Provider Dr. Amaya No MD Referring Provider Chris Walsh Attending Provider [phone] Chris Walsh Referring Provider VALORIE AYALA Attending Unavail able TAMMI GARCIA Referring Unavailable [facility] Primary Care Unavailable Amaya No MD Unavailable [phone] MIRANDA DEL RIO Referring Unavailable [facility] Primary Care Unavailable LEON HUYNH Attending Unavailable AMAYA NO Referring Unavailable [facility] Primary Care Unavailable LEON HUYNH Attending Unavailable AMAYA NO Referring Unavailable [facility] Primary Care Unavailable NICK ENNIS Attending Unavailable MIRANDA DEL RIO Referring Unavailable [facility] Primary Care Unavailable NICK ENNIS Attending Unavailable [facility] Primary Care Unavailable VIMAL GRANDAI Admitting Unavailable [facility] Primary Care Unavailable MONIQUE ROMERO Attending Unavaila ERASMO Briscoe Admitting Unavailable ERASMO GUDINO Attending Unavailable [facility] Primary Care Unavailable Ernesto STROUD, Isamar Unavailable Valroie Ayala MD Unavailable Penelope PT, Sandra Unavailable [phone] Dr. Kaz Stovall DO Emergency Provider Dr. Jos Teresa DO Admit Provider Dr. Jos Teresa DO Attending Provider KATE BELCHER Referring Unavailable LAHSAEE, AGA Primary Care Unavailable CORAL FRANCISCO Attending Unavailable MIRANDA DEL RIO Referring Unavailable LAHSAEE, AGA Primary Care Unavailable LUCY, GANDHIVARMA Referring Unavail able LAHSAEE, AGA Primary Care Unavailable HETMAN, CAROLINE Referring Unavailable LAHSAEE, AGA Primary Care Unavailable HETMAN, CAROLINE Referring Unavailable LAHSAEE, AGA Primary Care Unavailable LUNA HANNON Attending Unavailable LAHSAEE, AGA Referring Unavailable LAHSAEE, AGA Primary Care Unavailable LAHSAEE, AGA Referring Unavailable LAHSAEE, AGA Primary Care Unavailable ALECIA ENAMORADO Attending Unavailable LAHSAEE, AGA Primary Care Unavailable ALECIA ENAMORADO Attending Unavailable LAHSAEE, AGA Primary Care Unavailable KATE BELCHER Attending Unavailable LAHSAEE, AGA Referring Unavailable LAHSAEE, AGA Primary Care Unavailable LAHSAEE, AGA Attending Unavailable LAHSAEE, AGA Primary Care Unavailable LAHSAEE, AGA Referring Unavailable LAHSAEE, AGA Primary Care Unavailable MIRANDA DEL RIO Attending Unavailable LAHSAEE, AGA Primary Care Unavailable LUNA HANNON Attending Unavailable LAHSAEE, AGA Primary Care Unavailable SELF Referring Unavailable TAMMI GARCIA Attending Unavailable LAHSAEE, AGA Primary Care Unavailable MIRANDA DEL RIO Attending Unavailable LAHSAEE, AGA Primary Care Unavailable TAMMI GARCIA Referring Unavailable KATE BELCHER Attending Unavailable LAHSAEE, AGA Primary Care Unavailable TAMMI GARCIA Referring Unavailable LAHSAEE, AGA Primary Care Unavailable NOT, DEFINED Referring Unavailable Amaya No Attending Unavailable Amaya No Primary Care Unavailable Borruso, Mac Admitting Unavailable Borruso, Mac Referring Unavailable Borruso, Mac Attending Unavailable Koram, Mishel Ly Consulting Unavailable Borruso, Mac Consulting Unavailable Alondra Zelaya Consulting Unavailable Koram, Mishel Ly Attending Unavailable Chris Walsh Attending Unavailable Chris Walsh Referring Unavailable [place], Amaya Primary Care Unavailable Ryder, Amaya Referring Unavailable [place], Amaya Attending Unavailable [place], Amaya Primary Care Unavailable Kai Oswald Attending Unavailable NOT, DEFINED Primary Care Unavailable Jos Teresa Admitting Unavailable [place], Amaya Primary Care Unavailable Jos Teresa Consulting Unavailable Koram, Mishel Ly Attending Unavailable Borruso, Mac Attending Unavailable Ryder, Amaya Referring Unavailable Ryder, Amaya Primary Care Unavailable Kate Jiménez Attending Unavailable Ryder, Amaya Referring Unavailable Borruso, Mac Consulting Unavailable Borruso, Mac Admitting Unavailable Borruso, Mac Attending Unavailable Borruso, Mac Referring Unavailable Jos Teresa Attending Unavailable Koram, Mishel Ly Consulting Unavailable Borruso, Mac Admitting Unavailable Borruso, Mac Referring Unavailable Alondra Zelaya Attending Unavailable [place], Amaya Primary Care Unavailable Koram, Mishel Ly Consulting Unavailable Borruso, Mac Consulting Unavailable Alondra Zelaya Attending Unavailable Noah Oleary Consulting Unavailable Chris Walsh Attending Unavailable Ryder, Amaya Referring Unavailable Ryder, Amaya Primary Care Unavailable Borruso, Mac Attending Unavailable [place], Amaya Referring Unavailable LUCY, GANDHIVARMA Admitting Unavail able LUCY, GANDHIVARMA Attending Unavail able GERMAN BENITEZNAZ Primary Care Unavailable CHARLY LEON Consulting Unavailable Dr. Jos Teresa DO Other Provider [phone] Jayna CAVAZOS, Dr. Manuel Wilks Attending Provider Ghazala CAVAZOS, Dr. Mishel Modi Other Provider Ghazala CAVAZOS, Dr. Mishel Modi Attending Provider Jayna CAVAZOS, Dr. Manuel Wilks Other Provider Allergies Allergy Classification Reported Allergen(s) Allergy Type Date of Onset Reaction(s) Facility Acetaminophen / HYDROcodone (1 source) Acetaminophen / HYDROcodone Drug Allergy 4 GI Upset [facility] Opioid Agonists (1 source) traMADol Drug Allergy 4 GI Upset [facility] (20 sources) Acetaminophen; Translations: [ACETAMINOPHEN] Drug Allergy 3 GI Upset [facility] (20 sources) HYDROcodone; Translations: [HYDROCODONE] Drug Allergy 3 GI Upset [facility] (20 sources) traMADol; Translations: [TRAMADOL] Drug Allergy 3 GI Upset [facility] (20 sources) Acetaminophen / HYDROcodone; Translations: [HYDROCODONE-ACET AMINOPHEN] Drug Allergy 4 GI Upset [facility] (12 sources) gabapentin; Translations: [GABAPENTIN] Drug Allergy 5 Mental Status Change, GI Upset, Vomiting [facility] Comment on above: behaviors (1 source) Acetaminophen Drug Allergy 5 [facility] Repository (1 source) gabapentin Drug Allergy 5 [facility] (1 source) HYDROcodone Drug Allergy 5 [facility] Rep[facility] (1 source) traMADol Drug Allergy 4 [facility] Repository Medications Current Medications Medication Drug Class(es) Dates Sig (Normalized) Sig (Original) acetaminophen 500 mg oral tablet (20 sources) Start: 07-25-2024 End: 07-27-2024 take 1 tablet by mouth every six hours as needed for pain and fever acetaminophen (Tylenol) tablet 650 mg Start: 06-24-2024 End: 03-27-2025 take 2 tablets by mouth every eight hours as needed acetaminophen (TYLENOL EXTRA STRENGTH) 500 mg tablet Take 2 tablets by mouth every 8 hours as needed for pain. 30 tablet 05/25/2025 2:43 PM EDT 05/25/2025 Active amoxicillin 875 mg / clavulanate 125 mg oral tablet (2 sources) Penicillin-class Antibacterial Start: 10-20-2024 End: 10-27-2024 amoxicillin-clavulanate potassium (AUGMENTIN) 875-125 mg per tablet Indications: Onychomycosis , Ingrowing toenail Take 1 tablet by mouth two times a day for 7 days. FOR 7 DAYS. 14 tablet 10/20/2024 10/27/2024 Active aspirin 81 mg delayed release oral tablet (20 sources) Platelet Aggregation Inhibitor, Nonsteroidal Anti-inflammatory Drug Start: 02-01-2024 End: 03-27-2025 take 1 tablet by mouth once daily Aspirin 81 mg tablet,delayed release (DR/EC) Active 81 mg PO DAILY 90 0 March 27, 2025 9:34pm [facility] Start: 04-30-2023 End: 06-15-2023 take 1 tablet by mouth once daily Aspirin 325 mg tablet Discontinued 325 mg PO DAILY April 30, 2023 12:00am June 15, 2023 1:13pm Start: 04-23-2023 End: 04-23-2023 take 1 tablet by mouth once daily Aspirin 325 mg tablet Discontinued 325 mg PO DAILY April 23, 2023 12:00am April 23, 2023 1:04pm take 1 capsule by [facility] once daily aspirin 81 mg cap Take 81 mg by mouth once daily. Active atorvastatin 20 mg oral tablet (20 sources) HMG-CoA Reductase Inhibitor Start: 07-25-2024 End: 07-27-2024 take 20 mg by mouth once daily 20 mg, Oral, Nightly, First dose on Thu07/25/24 at 2100 Start: 05-23-2024 End: 08-01-2024 take 2 tablets by mouth at bedtime Atorvastatin (Lipitor) 10 mg tablet Discontinued 20 mg PO AT BEDTIME May 23, 2024 12:00am August 01, 2024 3:14pm CHOLESTEROL Start: 04-18-2024 End: 05-29-2025 take 1 tablet by mouth at bedtime Atorvastatin 20 mg tablet Active 20 mg PO AT BEDTIME 90 0 May 29, 2025 12:37pm Start: 01-14-2024 End: 05-23-2024 take 1 tablet by mouth at bedtime Atorvastatin (Lipitor) 10 mg tablet Discontinued 10 mg PO AT BEDTIME 30 5 March 03, 2024 11:01am May 23, 2024 10:06am End: 04-18-2024 take 2 tablets by mouth once daily at bedtime atorvastatin (LIPITOR) 10 mg tablet Take 20 mg by mouth daily at bedtime. 0 04/18/2024 Discontinued carbidopa 25 mg / levodopa 100 mg oral tablet (20 sources) Aromatic Amino Acid Decarboxylation Inhibitor, Aromatic Amino Acid Start: 06-01-2024 End: 11-28-2024 carbidopa-levodopa (Sinemet) 25-100 MG tablet Take 1 tablet by mouth in the morning and 1 tablet at noon and 1 tablet in the evening. 06/01/2024 11/28/2024 Active Start: 04-04-2024 End: 08-08-2025 Carbidopa-Levodopa 25-100 mg tablet Discontinued 1 {tbl} PO THREE TIMES A DAY May 23, 2024 12:00am February 09, 2025 9:26am [facility] citalopram 40 mg oral tablet (20 sources) Serotonin Reuptake Inhibitor Start: 07-25-2024 End: 07-27-2024 take 20 mg by mouth once daily 20 mg, Oral, Daily, First dose on Thu07/25/24 at 1755 Start: 06-22-2023 End: 2025 take 1 tablet by mouth once daily Citalopram 40 mg tablet Discontinued 40 mg PO DAILY 90 May 31, 2024 2:41pm 2025 9:20am DEPRESSION Start: 04-23-2023 End: 06-22-2023 Citalopram 40 mg tablet Disc ontinued 20 mg PO DAILY April 23, 2023 12:00am June 22, 2023 8:42am Start: 04-23-2023 End: 06-22-2023 take 20 mg by mouth once daily Citalopram Discontinued 20 MG PO DAILY April 23, 2023 12:00am June 22, 2023 8:42am Comment on above: Take 40 mg by mouth once daily. cloNIDine hydrochloride 0.2 mg oral tablet (20 sources) Central alpha-2 Adrenergic Agonist Start: 07-25-2024 End: 07-27-2024 take 1 tablet by mouth every eight hours Start: 04-23-2023 End: 2025 take 1 tablet by mouth twice daily Clonidine Hcl 0.2 mg tablet Discontinued 0.2 mg PO TWICE A DAY 180 May 31, 2024 2:41pm 2025 9:20am BP Comment on above: Take 0.2 mg by mouth two times a day. docusate sodium 100 mg oral capsule (2 sources) Start: 05-25-20 End: 06-01-20 take 1 capsule by mouth twice daily in the evening docusate sodium (COLACE) 100 mg capsule Take 1 capsule by mouth two times a day for 7 days. 14 capsule 05/25/2025 2:43 PM EDT 05/25/2025 06/01/2025 Active donepezil hydrochloride 10 mg oral tablet (15 sources) Start: 03-27-20 donepezil (ARICEPT) 10 mg tablet Indications: 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) After on trazodone for 2 weeks, start 1/2 pill once a day for 1 month then increase to a full pill once a day thereafter. 90 tablet 3 03/27/2025 Active mupirocin 0.02 mg/mg topical ointment (3 sources) RNA Synthetase Inhibitor Antibacterial Start: 05-02-20 End: 05-24-20 mupirocin (BACTROBAN) 2 % ointment Apply 1/2 ointment with a cotton swap in each nostril 2x daily for five days preop 22 g 05/02/2025 05/24/2025 Active oxyCODONE hydrochloride 5 mg oral tablet (10 sources) Opioid Agonist Start: 05-26-20 take 1 tablet by mouth four times daily as needed for pain Oxycodone 5 mg tablet Active 5 mg PO 4 TIMES DAILY NEEDED as needed for pain May 26, 2025 12:00am Start: 05-25-2025 End: 06-01-2025 take 1 tablet by mouth every six hours as needed for pain oxyCODONE IR (ROXICODONE) 5 mg immediate release tablet Indications: S/P spinal surgery , Acute pain Take 1 tablet by mouth every 6 hours as needed for pain for up to 7 days. 28 tablet 05/25/2025 2:43 PM EDT 05/25/2025 06/01/2025 Active Start: 06-24-2024 End: 2025 take 5-10 mg by mouth every four hours as needed for pain Oxycodone 5 mg Tablet Discontinued 5 - 10 mg PO EVERY 4 HOURS NEEDED as needed for Pain Score 4-10 60 7 0 June 24, 2024 2025 8:39am Other acute postprocedural pain Other acute postprocedural pain polyethylene glycol 3350 37939 mg powder for oral solution (20 sources) Osmotic Laxative Start: 05-25-2025 End: 06-08-2025 polyethylene glycol 3350 17 gram/dose powder Take 17 g by mouth once daily for 7 days. Dissolve dose in 4 - 8 ounces of liquid and take as directed. 238 g 05/25/2025 2:43 PM EDT 05/25/2025 06/08/2025 Active Start: 07-26-2024 End: 07-27-2024 take 1 dose by mouth every twenty-four hours for constipation 17 g, Oral, Daily, First dose (after last modification) on Thu07/26/24 at 0900, 1st line for treatment of constipation - give scheduled if no bowel movement in past 24 hours. Start: 07-05-2024 polyethylene g lycol 3350 17 gram packet Take 1 Packet by mouth two times a day. Dissolve dose in 4 - 8 ounces of liquid and take as directed. 07/05/2024 Active QUEtiapine 25 mg oral tablet (10 sources) Atypical Antipsychotic Start: 05-29-2025 take 2 tablets by mouth at bedtime Quetiapine 25 mg Tablet Active 50 mg PO AT BEDTIME 0 May 29, 2025 12:00am Start: 04-26-2025 End: 10-23-2025 take 1 tablet by mouth once daily at bedtime QUEtiapine (SEROQUEL) 25 mg tablet Indications: Insomnia, unspecified type , 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) Take 1 tablet by mouth daily at bedtime. 30 tablet 5 04/26/2025 10/23/2025 Active traZODone hydrochloride 150 mg oral tablet (15 sources) Serotonin Reuptake Inhibitor Start: 04-17-2025 End: 10-14-2025 take 1 tablet by mouth once daily at bedtime traZODone (DESYREL) 150 mg tablet Indications: Insomnia, unspecified type Take 1 tablet by mouth daily at bedtime. 30 tablet 5 04/17/2025 10/14/2025 Active Start: 03-27-2025 traZODone (LIO YREL) 100 mg tablet Indications: Insomnia, unspecified type Take 1/2 pill once a day for 10 days then increase to a full pill thereafter 90 tablet 3 03/27/2025 Active trospium chloride 20 mg oral tablet (9 sources) Cholinergic Muscarinic Antagonist Start: 04-26-2025 take 1 tablet by mouth twice daily trospium (SANCTURA) 20 mg tablet Take 1 tablet by mouth two times a day. 180 tablet 04/26/2025 Active Completed/Discontinued Medications Medication Drug Class(es) Dates Sig (Normalized) Sig (Original) amLODIPine 10 mg oral tablet (20 sources) Dihydropyridine Calcium Channel Mikala Start: 04-23-2023 End: 02-09-2025 take 1 tablet by mouth once daily Amlodipine 10 mg tablet Discontinued 10 mg PO DAILY 90 1 February 08, 2025 4:09pm February 09, 2025 9:25am BP Comment on above: Take 10 mg by mouth once daily. apixaban 5 mg oral tablet (6 sources) Factor Xa Inhibitor Start: 06-24-2024 End: 2025 take 2.5 mg by mouth twice daily Apixaban (Eliquis) 5 mg Tablet Discontinued 2.5 mg PO TWICE A DAY June 24, 2024 12:00am 2025 8:39am calcium chloride 0.0014 meq/ml / potassium chloride 0.004 meq/ml / sodium chloride 0.103 meq/ml / sodium lactate 0.028 meq/ml injectable solution (2 sources) Start: 07-25-2024 End: 07-25-2024 1,000 mL, IntraVENous, at 500 mL/hr, Administer over 2 Hours, Once, On Thu07/25/24 at 1755, For 1 dose carvedilol 25 mg oral tablet (20 sources) alpha-Adrenergic Mikala, beta-Adrenergic Mikala Start: 02-01-2024 End: 03-17-2024 take 1 tablet by mouth twice daily at mealtime Carvedilol 25 mg tablet Discontinued 25 mg PO TWICE A DAY February 01, 2024 12:00am March 17, 2024 10:24am must administer with a meal/food Start: 09-10-2023 End: 09-24-2023 take 1 tablet by mouth twice daily at mealtime Carvedilol 25 mg tablet Discontinued 25 mg PO TWICE A DAY September 10, 2023 1:00am September 24, 2023 4:54pm must administer with a meal/food Start: 04-23-2023 End: 08-20-2023 take 1 tablet by mouth twice daily at mealtime Carvedilol 25 mg tablet Discontinued 25 mg PO TWICE A DAY April 23, 2023 12:00am August 20, 2023 4:09pm must administer with a meal/food cefepime (Maxipime) 2,000 mg in sodium chloride 0.9 % 50 mL IVPB Mini-Bag Plus (2 sources) Start: 07-25-2024 End: 07-25-2024 take 2000 mg intravenously every eight hours 2,000 mg, IntraVENous, at 100 mL/hr, Administer over 30 Minutes, Every 8 hours, First dose on Thu07/25/24 at 1555, Mini-Bag Plus bag, Suspected Indication (Select all that apply): Urinary Tract Infection cholecalciferol 9.52 unt/ml / glucose 357 mg/ml oral gel (2 sources) Vitamin D Start: 07-25-2024 End: 07-27-2024 15 g, Oral, As needed, low blood sugar, Starting on Thu07/25/24 at 1753, If blood glucose less than 50 mg/dL and patient ALERT and NOT NPO, give 2 tubes glucose gel. If blood glucose less than 70 mg/dL and patient ALERT and NOT NPO, give 1 tube glucose gel. Repeat blood glucose in 15 minutes. If blood glucose is less than 70 mg/dL, repeat treatment and recheck blood glucose in 15 minutes x2 and notify provider. dapagliflozin 10 mg oral tablet (20 sources) Sodium-Glucose Cotransporter 2 Inhibitor Start: 02-26-2024 End: 04-05-2025 take 1 tablet by mouth once daily Dapagliflozin Propanediol 10 mg tablet Discontinued 10 mg PO DAILY March 17, 2024 12:00am March 27, 2025 9:35pm CHOLESTEROL docusate sodium 50 mg / sennosides, custodial 8.6 mg oral tablet (20 sources) Start: 07-13-2024 End: 2025 Sennosides-Docusa te Sodium (Sennosides 8.6 Mg-Docusate Sodium 50 Mg Tablet) 8.6-50 mg tablet Discontinued 1 {tbl} PO TWICE A DAY August 01, 2024 12:00am 2025 8:39am Start: 07-13-2024 take 1 tablet by ofelia th in the morning senna-docusate (Promise-Colace) 8.6-50 MG tablet Take 1 tablet by mouth in the morning and 1 tablet in the evening. 07/13/2024 Active doxazosin 2 mg oral tablet (20 sources) alpha-Adrenergic Mikala Start: 04-23-2023 End: 04-28-2024 take 1 tablet by mouth once daily Doxazosin 2 mg tablet Discontinued 2 mg PO DAILY 30 2 August 25, 2023 1:43pm December 02, 2023 4:49pm Comment on above: Take 2 mg by mouth d aily at bedtime. 24 hr fesoterodine fumarate 4 mg extended release oral tablet (3 sources) Start: 03-21-2025 End: 05-26-2025 take 1 tablet by mouth once daily Fesoterodine (Toviaz) 4 mg tablet extended release 24 hr Discontinued 4 mg PO daily 30 0 March 21, 2025 12:00am May 26, 2025 10:52am finasteride 5 mg oral tablet (20 sources) 5-alpha Reductase Inhibitor Start: 06-15-2023 End: 05-23-2024 take 1 tablet by mouth once daily Finasteride 5 mg tablet Discontinued 5 mg PO DAILY 90 1 March 14, 2024 1:39pm May 23, 2024 10:01am Start: 06-15-2023 End: 01-14-2024 take 1 mg by mouth once daily Finasteride Active MG PO DAILY January 14, 2024 3:05pm Comment on above: Take 5 mg by mouth o nce daily. gabapentin 100 mg oral capsule (20 sources) Anti-epileptic Agent Start: 06-24-2024 End: 2025 take 1 capsule by mouth three times daily at mealtime as needed Gabapentin 100 mg Capsule Discontinued 100 mg PO 3 TIMES DAILY WITH MEALS as needed for foot restlessness/itching/ burn 60 0 June 24, 2024 12:00am 2025 8:39am Start: 11-11-2023 End: 05-23-2024 take 1 tablet by mouth twice daily Gabapentin 600 mg tablet Discontinued 600 mg PO TWICE A DAY 60 0 December 02, 2023 4:54pm May 23, 2024 10:01am Start: 06-15-2023 End: 08-06-2023 Gabapentin 600 mg tablet Discontinued mg PO June 15, 2023 12:00am August 06, 2023 1:20pm Start: 06-15-2023 End: 08-06-2023 Gabapentin Discontinued MG P O June 15, 2023 12:00am August 06, 2023 1:20pm Comment on above: Take 600 mg by mouth two times a day. glucagon (rdna) 1 mg injection (2 sources) Antihypoglycemic Agent Start: 07-25-2024 End: 07-27-2024 1 mg, IntraMUSCular, PRN, low blood sugar, Blood glucose less than 70 mg/dL and patient NOT ALERT or NPO and does not have IV access., Starting on Thu07/25/24 at 1753, After administration, attempt intravenous access and start D5W at 100 mL/hr. Repeat blood glucose in 15 minutes x2 and notify provider. 150 ml glucose 50 mg/ml injection (4 sources) Start: 07-25-2024 End: 07-27-2024 12.5 g, IntraVENous, PRN, low blood sugar, Blood glucose less than 70 mg/dL and patient NOT ALERT or NPO., Starting on Thu07/25/24 at 1753, If patient does not respond within 5 minutes, repeat dose x1. Start D5W at 100 mL/hour until ordering provider can be reached. Repeat blood glucose in 15 minutes. If blood glucose is less than 70 mg/dL, repeat treatment and recheck blood glucose in 15 minutes x2. If using Glucostabilizer, dose as instructed per system. Start: 07-25-2024 End: 07-27-2024 100 mL/hr, IntraVENous, PRN, Blood sugar less than 70mg/dL, Starting on Thu07/25/24 at 1753, Start infusion following administration of dextrose 50% or glucagon. hydroCHLOROthiazide 12.5 mg / lisinopril 20 mg oral tablet (20 sources) Thiazide Diuretic, Angiotensin Converting Enzyme Inhibitor Start: 05-23-2024 End: 2025 Lisinopril-Hydrochlorothiazi de 20-12.5 mg tablet Discontinued 1 {tbl} PO DAILY 90 0 May 31, 2024 2:41pm 2025 8:38am BP Start: 04-23-2023 End: 03-17-2024 Lisinopril-Hydrochlorothiazi de 20-12.5 mg tablet Discontinued 2 {tbl} PO DAILY 60 2 August 25, 2023 1:43pm September 24, 2023 5:33pm Start: 04-23-2023 End: 12-02-2023 take 2 tablets by mouth once daily Lisinopril-Hydrochlorothiazide Discontin ued 2 TABLET PO DAILY 60 August 25, 2023 1:43pm September 24, 2023 5:33pm Comment on above: Take 1 tablet by ofelia th once daily. hydrOXYzine pamoate 25 mg oral capsule (2 sources) Antihistamine Start: End: take 1 capsule by mouth every six hours as needed for anxiety 25 mg, Oral, Every 6 hours PRN, anxiety, allergies, Starting on Thu07/25/24 at 1908 insulin lispro 100 unt/ml injectable solution (2 sources) Insulin Analog Start: End: inject 6 [IU] by subcutaneous injection three times daily at mealtime 0-6 Units, SubCUTAneous, 3 times daily with meals, First dose on Thu07/25/24 at 1755, Low Dose Correction Algorithm Glucose: Dose: LESS than 139 No Insulin 140-199 1 Unit 200-249 2 Units 250-299 3 Units 300-349 4 Units 350-400 5 Units Above 400 6 Units iv contrast (will be provided with radiology test) (20 sources) Start: inject 1 dose intravenously once iv contrast (will be provided with radiology [...] CT contrast administration guidelines link. 1 Each 01/07/2024 Active Start: 01-07-2024 inject 1 dose intravenously on ce iv contrast (will be provided with radiology [...] contrast administration guidelines link. 1 Each 0 01/07/2024 Active Comment on above: CTA Head/Neck W No I V access, insert saline lock prior to the sedation, infusion, injection for imaging exam. Discontinue saline lock post exam. If Pt. has a central line or IVAD, may access for administration according to line specific nursing protocol. Once exam is complete flush line and de-access according to line specific nursing protocol in the [place] contrast administration guidelines link. lisinopril 10 mg oral tablet (20 sources) Angiotensin Converting Enzyme Inhibitor Start: 07-06-20 End: 02-09-20 25 take 1 tablet by mouth once daily Lisinopril 10 mg tablet Discontinued 10 mg PO daily 2025 12:00am February 08, 2025 4:09pm meloxicam 7.5 mg oral tablet (20 sources) Nonsteroidal Anti-inflammatory Drug Start: 04-23-20 End: 05-23-20 24 take 1 tablet by mouth once daily Meloxicam 7.5 mg tablet Discontinued 7.5 mg PO DAILY 30 August 25, 2023 1:44pm December 02, 2023 4:49pm Comment on above: Take 7.5 mg by mouth once daily. 24 hr metFORMIN hydrochloride 500 mg extended release oral tablet (20 sources) Biguanide Start: 12-02-19 End: 03-17-20 24 take 1 tablet by mouth once daily Metformin 500 mg tablet extended release 24 hr Discontinued 500 mg PO DAILY 90 1 December 02, 2023 4:49pm March 17, 2024 10:24am Start: 08-20-2023 End: 12-02-2023 take 1 tablet by mouth twice daily Metformin 500 mg tablet extended release 24 hr Discontinued 500 mg PO TWICE A DAY 60 August 20, 2023 5:25pm December 02, 2023 4:49pm Start: 04-23-2023 End: 08-20-2023 Metformin 500 mg tablet exte nded release 24 hr Discontinued 1000 mg PO TWICE A DAY 60 2 July 15, 2023 12:59pm August 20, 2023 5:25pm Start: 04-23-2023 End: 08-20-2023 take 1000 mg by mouth twice daily Metformin Discontinued 1000 MG PO TWICE A DAY 60 July 15, 2023 12:59pm August 20, 2023 5:25pm End: 04-18-2024 take 1 tablet by mouth every twenty-four hours metFORMIN ER (GLUMETZA) 500 mg 24 hr tablet Take 500 mg by mouth. 0 04/18/2024 Discontinued (Course of therapy completed) Comment on above: Take 500 mg by mouth . naproxen 500 mg oral tablet (5 sources) Nonsteroidal Anti-inflammatory Drug Start: End: take 1 tablet by mouth twice daily Naproxen 500 mg tablet Discontinued 500 mg PO TWICE A DAY March 13, 2025 12:00am May 26, 2025 4:29pm ondansetron 8 mg disintegrating oral tablet (6 sources) Serotonin-3 Receptor Antagonist Start: End: take 1 tablet by mouth every eight hours as needed for nausea and vomiting Ondansetron 8 mg tablet,disintegrating Discontinued 8 mg PO Q8H as needed for nausea and vomiting August 01, 2024 12:00am 2025 8:39am ondansetron ODT (Zofran-ODT) disintegrating tablet 4 mg (2 sources) Start: End: take 1 tablet by mouth every eight hours as needed for nausea and vomiting ondansetron ODT (Zofran-ODT) disintegrating tablet 4 mg 24 hr oxybutynin chloride 10 mg extended release oral tablet (19 sources) Cholinergic Muscarinic Antagonist Start: End: take 1 tablet by mouth once daily Oxybutynin Chloride 10 mg tablet extended release 24hr Discontinued 10 mg PO DAILY February 28, 2025 1:04pm March 20, 2025 5:42pm Start: 08-01-2024 End: 2025 take 1 tablet by mouth once daily Oxybutynin Chloride 10 mg tablet extended release 24hr Discontinued 10 mg PO DAILY August 01, 2024 12:00am 2025 8:39am pantoprazole 40 mg delayed release oral tablet (20 sources) Proton Pump Inhibitor Start: 07-13-2024 End: 02-08-2025 take 1 tablet by mouth twice daily Pantoprazole 40 mg tablet,delayed release (DR/EC) Discontinued 40 mg PO TWICE A DAY August 01, 2024 12:00am February 08, 2025 4:09pm Start: 07-13-2024 End: 07-27-2024 take 1 tablet by mouth once daily before breakfast pantoprazole (ProtoNix) 40 MG EC tablet Take 40 mg by mouth every morning (before breakfast). 07/13/2024 Active phenylephrine hydrochloride 25 mg/ml ophthalmic solution (4 sources) alpha-1 Adrenergic Agonist Start: 10-11-2024 End: 10-11-2024 1 Drop, BOTH EYES, ONCE, 1 dose, On Thu10/11/24 at 0900, FOR OPHTHALMIC USE ONLY PROTECT FROM LIGHT Start: 10-11-2024 End: 10-11-2024 PHENYLephrine 2.5 % 1 Drop ( AK-DILATE, GUIDO-SYNEPHRINE) Start: 10-11-2024 End: 10-11-2024 1 Drop, BOTH EYES, DIRECT ED, Starting on Thu10/11/24 at 0830, Until Thu10/11/24 at 2028, Administer for dilation PROTECT FROM LIGHT piperacillin 3000 mg / tazobactam 375 mg injection (2 sources) Penicillin-class Antibacterial, beta Lactamase Inhibitor Start: 07-26-2024 End: 07-27-2024 take 3375 mg intravenously every eight hours 3,375 mg, IntraVENous, at 12.5 mL/hr, Administer over 4 Hours, Every 8 hours, First dose (after last modification) on Thu07/26/24 at 0000, Day 1: 07/26/24 Original dose: pip/tazo 3375 mg every 6 hours over 30 minutes Dose adjusted for initial med-surg dosing for CrCl >20 mL/min per P&T Committee, ARACELI primidone 50 mg oral tablet (20 sources) Anti-epileptic Agent Start: 12-08-2023 End: 04-18-2024 primidone (MYSOLINE) 50 mg tablet Take 1.5 tablet at bedtime 45 tablet 2 12/08/2023 04/18/2024 Discontinued Start: 12-02-2023 End: 05-23-2024 take 1 tablet by mouth at bedtime Primidone 50 mg tablet Discontinued 25 mg PO AT BEDTIME 15 March 14, 2024 1:39pm May 23, 2024 10:00am Start: 12-02-2023 take 25 mg by mouth at bedtime Primidone Active 25 MG PO AT BEDTIME December 02, 2023 1:00am End: 12-08-2023 primidone (MYSOLINE) 50 mg t ablet Take 25 mg by mouth daily at bedtime. 0 12/08/2023 Discontinued Comment on above: Take 1.5 tablet at b edtime Take 25 mg by mouth daily at bedtime. proparacaine hydrochloride 5 mg/ml ophthalmic solution (4 sources) Local Anesthetic Start: 10-11-2024 End: 10-11-2024 1 Drop, BOTH EYES, ONCE, 1 dose, On Thu10/11/24 at 0900, FOR THE EYE Start: 10-11-2024 End: 10-11-2024 proparacaine 0.5 % 1 Drop (A LCAINE) Start: 10-11-2024 End: 10-11-2024 1 Drop, BOTH EYES, DIRECT ED, Starting on Thu10/11/24 at 0830, Until Thu10/11/24 at 2028, Administer for pneumo tonometry, tonopen tonometry, or pachymetry. In the event of a proparacaine shortage, administer tetracaine 0.5% ophthalmic drops 1 drop in the left eye as directed for pneumo tonometry, tonopen tonometry, or pachymetry propranolol hydrochloride 20 mg oral tablet (20 sources) beta-Adrenergic Mikala Start: 04-14-2024 End: 04-18-2024 propranolol (INDERAL) 20 mg tablet Indications: Tremor Take 2 pills twice a day for 5 days, then 1 pill twice a day for 5 days, then 1/2 pill twice a day for 5 days, then stop 35 tablet 0 04/14/2024 04/18/2024 Discontinued (Course of therapy completed) Start: 12-02-2023 End: 05-23-2024 take 1 capsule by mouth once daily Propranolol 60 mg capsule,extended release 24 hr Discontinued 60 mg PO DAILY 90 December 02, 2023 4:49pm May 23, 2024 10:00am Start: 09-24-2023 End: 12-02-2023 take 1 capsule by mouth twice daily Propranolol 60 mg capsule,extended release 24 hr Discontinued 60 mg PO TWICE A DAY 120 0 October 30, 2023 6:17pm December 02, 2023 4:49pm Start: 08-20-2023 End: 09-24-2023 take 1 capsule by mouth once daily Propranolol 60 mg capsule,extended release 24 hr Discontinued 60 mg PO DAILY 30 0 August 20, 2023 1:00am September 24, 2023 4:57pm End: 04-14-2024 take 1 tablet by mouth twice daily propranolol (INDERAL) 60 mg tablet Take 60 mg by mouth two times a day. 0 04/14/2024 Discontinued Comment on above: Take 60 mg by mouth two times a day. sacubitril 49 mg / valsartan 51 mg oral tablet (19 sources) Angiotensin 2 Receptor Mikala Start: End: Sacubitril-Valsartan (Entresto) 49-51 mg tablet Discontinued 1 {tbl} PO TWICE A DAY March 17, 2024 12:00am May 23, 2024 9:59am 50 ml sodium chloride 9 mg/ml injection (2 sources) Start: End: 500 mL, IntraVENous, at 500 mL/hr, Administer over 1 Hours, Once, On Thu07/25/24 at 1605, For 1 dose spironolactone 25 mg oral tablet (20 sources) Aldosterone Antagonist Start: End: take 1 tablet by mouth once daily Spironolactone 25 mg tablet Discontinued 25 mg PO daily 90 0 March 27, 2025 9:35pm May 26, 2025 10:50am WATER PILL sulfamethoxazole 800 mg / trimethoprim 160 mg oral tablet (10 sources) Dihydrofolate Reductase Inhibitor Antibacterial, Sulfonamide Antimicrobial Start: End: Sulfamethoxazole-Trim ethoprim 800-160 mg tablet Discontinued {tbl} PO August 01, 2024 12:00am 2025 8:39am Start: 07-27-2024 End: 07-27-2024 take 1 tablet by mouth twice daily 1 tablet, Oral, 2 times daily, First dose on Thu07/27/24 at 1500, For 15 doses, Suspected Indication (Select all that apply): Urinary Tract Infection Start: 07-27-2024 End: 08-04-2024 take 1 tablet by mouth once in the morning sulfamethoxazole-trimethoprim (Bactrim DS) 800-160 MG tablet Take 1 tablet by mouth in the morning and 1 tablet in the evening. Do all this for 15 doses. 15 tablet 07/27/2024 2:54 PM EDT 07/27/2024 08/04/2024 Active tamsulosin hydrochloride 0.4 mg oral capsule (20 sources) alpha-Adrenergic Mikala Start: 05-23-2024 End: 02-08-2025 take 1 capsule by mouth at bedtime Tamsulosin 0.4 mg capsule Discontinued 0.4 mg PO AT BEDTIME 90 0 May 31, 2024 2:41pm February 08, 2025 4:09pm PROSTATE Start: 04-23-2023 End: 02-08-2025 take 1 capsule by mouth once daily Tamsulosin 0.4 mg capsule Discontinued 0.4 mg PO DAILY 30 2 August 25, 2023 1:44pm December 02, 2023 4:49pm Comment on above: Take 0.4 mg by mouth once daily. tropicamide 10 mg/ml ophthalmic solution (4 sources) Anticholinergic Start: 10-11-2024 End: 10-11-2024 1 Drop, BOTH EYES, ONCE, 1 dose, On Thu10/11/24 at 0900, FOR THE EYE Start: 10-11-2024 End: 10-11-2024 tropicamide 1 % 1 Drop (MYDR IACYL) Start: 10-11-2024 End: 10-11-2024 1 Drop, BOTH EYES, DIRECT ED, Starting on Thu10/11/24 at 0830, Until Thu10/11/24 at 2028, Administer for dilation 200 ml vancomycin 5 mg/ml injection (4 sources) Glycopeptide Antibacterial Start: 07-26-2024 End: 07-26-2024 take 1000 mg intravenously every twelve hours Start: 07-25-2024 End: 07-25-2024 1,250 mg, IntraVENous, at 16 6.7 mL/hr, Administer over 90 Minutes, Once, On 07/25/24 at 1555, For 1 dose, premix bag, Suspected Indication (Select all that apply): Urinary Tract Infection Vibegron (3 sources) Start: 03-20-2025 End: 03-21-2025 take 1 tablet by mouth once daily Vibegron (Gemtesa) 75 mg tablet Discontinued 75 mg PO daily 30 0 March 20, 2025 12:00am March 21, 2025 9:01am Problems Active Problems Problem Classification Problem Date Documented Da te Episodic/Chronic Acute and unspecified renal failure (20 sources) Acute kidney failure, unspecified; Translations: [Acute renal failure syndrome] Onset: 06-29-2024 Resolved: 07-13-2024 07-26-2024 Episodic Acute cerebrovascular disease (4 sources) Cerebral infarction; Translations: [Cerebral infarction, unspecified] 01-07-2024 Chronic Administrative/social admission (5 sources) Persons encountering health services in other specified circumstances; Translations: [Other reasons for seeking consultation] 04-23-2023 Episodic Blindness and vision defects (4 sources) Bilateral regular astigmatism; Translations: [Regular astigmatism, bilateral] 10-11-2024 Episodic Calculus of urinary tract (20 sources) Kidney stone; Translations: [Calculus of kidney] Onset: 12-08-2023 04-23-2023 Episodic Cataract (2 sources) Bilateral senile combined form cataracts of eyes; Translations: [Combined forms of age-related cataract, bilateral] 10-11-2024 Chronic Conduction disorders (8 sources) Left bundle branch block; Translations: [Left bundle-branch block, unspecified] Onset: 05-02-2025 05-02-2025 Chronic Congestive heart failure; nonhypertensive (20 sources) Heart failure with mid range ejection fraction; Translations: [Chronic systolic (congestive) heart failure] Onset: 04-18-2024 03-09-2024 Chronic Deficiency and other anemia (5 sources) Normocytic anemia; Translations: [Anemia, unspecified] Onset: 07-26-2024 07-26-2024 Episodic Deficiency and other anemia (1 source) Anemia; Translations: [Anemia, unspecified] 08-08-2024 Episodic Delirium, dementia, and amnestic and other cognitive disorders (16 sources) Dementia associated with another disease; Translations: [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)] Onset: 04-26-2025 04-16-2025 Chronic Diabetes mellitus with complications (3 sources) Polyneuropathy due to type 2 diabetes mellitus; Translations: [Type 2 diabetes mellitus with diabetic polyneuropathy] Onset: 04-26-2025 03-27-2025 Chronic Diabetes mellitus without complication (20 sources) Type 2 diabetes mellitus without complications; Translations: [Diabetes mellitus] Onset: 02-21-2022 Chronic Comment on above: PRE DIABETIC Disorders of lipid metabolism (20 sources) Hyperlipidemia, unspecified; Translations: [Mixed hyperlipidemia] Onset: 02-21-2022 Chronic Essential hypertension (20 sources) Essential (primary) hypertension; Translations: [Essential hypertension] Onset: 02-21-2022 Chronic Comment on above: CONTROLLED WITH MEDS Fluid and electrolyte disorders (6 sources) Mild dehydration; Translations: [Dehydration] 08-09-2024 Episodic Genitourinary symptoms and ill-defined conditions (2 sources) Urge incontinence of urine; Translations: [Urge incontinence] Onset: 04-26-2025 04-26-2025 Chronic Hyperplasia of prostate (20 sources) Benign prostatic hyperplasia; Translations: [Benign prostatic hyperplasia without lower urinary tract symptoms] Onset: 07-26-2024 04-23-2023 Chronic Malaise and fatigue (6 sources) Asthenia; Translations: [Weakness] Onset: 01-23-2025 01-23-2025 Episodic Mood disorders (20 sources) Mild depression; Translations: [Depression with somatization] Onset: 12-08-2023 04-23-2023 Chronic Mycoses (3 sources) Onychomycosis; Translations: [Tinea unguium] Onset: 03-27-2025 10-20-2024 Episodic Nausea and vomiting (20 sources) Nausea and vomiting; Translations: [Nausea with vomiting, unspecified] Onset: 07-03-2024 Resolved: 05-25-2025 07-13-2024 Episodic Osteoarthritis (20 sources) Primary gonarthrosis, bilateral; Translations: [Bilateral primary osteoarthritis of knee] 04-30-2023 Chronic Other and ill-defined cerebrovascular disease (1 source) Small vessel cerebrovascular disease; Translations: [Other cerebrovascular disease] 03-27-2025 Chronic Other and ill-defined cerebrovascular disease (1 source) Other cerebrovascular disease; Translations: [Cerebral microvascular disease] Onset: 03-27-2025 Chronic Other circulatory disease (1 source) Personal history of transient ischemic attack (TIA), and cerebral infarction without residual deficits; Translations: [Personal history of transient ischemic attack (TIA), and cerebral infarction without residual deficits] 01-14-2024 Episodic Other circulatory disease (3 sources) Abnormal peripheral pulse; Translations: [Other specified symptoms and signs involving the circulatory and respiratory systems] 10-21-2024 Episodic Other circulatory disease (6 sources) History of cerebrovascular accident without residual deficits; Translations: [Personal history of transient ischemic attack (TIA), and cerebral infarction without residual deficits] 2025 Episodic Other circulatory disease (1 source) Other specified symptoms and signs involving the circulatory and respiratory systems; Translations: [Diminished pulses in lower extremity] Onset: 04-26-2025 Episodic Other connective tissue disease (20 sources) History of total knee arthroplasty; Translations: [Presence of left artificial knee joint] Onset: 06-29-2024 07-05-2024 Chronic Other connective tissue disease (2 sources) Presence of left artificial knee joint; Translations: [Status post total left knee replacement] Onset: 07-01-2024 Chronic Other connective tissue disease (2 sources) Pain in lower limb; Translations: [Pain in leg, unspecified] 07-25-2024 Episodic Other connective tissue disease (2 sources) Pain in leg, unspecified; Translations: [Pain in leg, unspecified] Onset: 07-25-2024 Episodic Other connective tissue disease (2 sources) Pain of toe of left foot; Translations: [Pain in left toe(s)] 10-21-2024 Episodic Other connective tissue disease (9 sources) Recurrent falls ; Translations: [Repeated falls] 2025 Episodic Other connective tissue disease (3 sources) Other symptoms and signs involving the musculoskeletal system; Translations: [Other musculoskeletal symptoms referable to limbs] Onset: 03-14-2025 03-14-2025 Episodic Other connective tissue disease (1 source) Pain of toe of right foot; Translations: [Pain in right toe(s)] 03-27-2025 Episodic Other connective tissue disease (1 source) Pain in right toe(s); Translations: [Pain in toe of right foot] Onset: 03-27-2025 Episodic Other connective tissue disease (1 source) Pain in left toe(s); Translations: [Pain in toe of left foot] Onset: 03-27-2025 Episodic Other connective tissue disease (1 source) Pain in right foot; Translations: [Pain in right foot] Onset: 03-13-2025 Episodic Other diseases of bladder and urethra (2 sources) Overactive bladder; Translations: [Overactive bladder] 04-26-2025 Chronic Other diseases of bladder and urethra (1 source) Overactive bladder; Translations: [Overactive bladder] Onset: 04-26-2025 Chronic Other eye disorders (1 source) Disorder of lacrimal gland; Translations: [Dry eye syndrome of bilateral lacrimal glands] 10-11-2024 Episodic Other gastrointestinal disorders (1 source) Chronic idiopathic constipation; Translations: [Chronic idiopathic constipation] 08-08-2024 Chronic Other gastrointestinal disorders (1 source) Dysphagia, unspecified; Translations: [Dysphagia, unspecified] 01-14-2024 Episodic Other hereditary and degenerative nervous system conditions (8 sources) Resting tremor; Translations: [Other specified forms of tremor] 11-11-2023 Chronic Other hereditary and degenerative nervous system conditions (2 sources) Other specified forms of tremor; Translations: [Abnormal involuntary movements] 11-11-2023 Chronic Other nervous system disorders (6 sources) Spinal cord disease; Translations: [Disease of spinal cord, unspecified] 02-09-2024 Chronic Other nervous system disorders (2 sources) Other chronic pain; Translations: [Chronic bilateral low back pain with bilateral sciatica] Onset: 04-18-2024 Chronic Other nervous system disorders (3 sources) Difficulty walking; Translations: [Difficulty in walking, not elsewhere classified] 05-26-2025 Chronic Other nervous system disorders (1 source) Difficulty in walking, not elsewhere classified; Translations: [Difficulty in walking, not elsewhere classified] Onset: 05-28-2025 Chronic Other nervous system disorders (5 sources) Tremor, unspecified; Translations: [Abnormal involuntary movements] 08-20-2023 Episodic Other nervous system disorders (3 sources) Tremor; Translations: [Tremor, unspecified] 12-08-2023 Episodic Other nervous system disorders (1 source) Toxic metabolic encephalopathy; Translations: [Toxic metabolic encephalopathy] 08-08-2024 Episodic Other nervous system disorders (6 sources) Acute postoperative pain; Translations: [Other acute postprocedural pain] 06-24-2024 Episodic Other nervous system disorders (1 source) Numbness of foot ; Translations: [Anesthesia of skin] 04-16-2025 Episodic Other non-traumatic joint disorders (20 sources) Pain in right knee; Translations: [Pain in both knees] 04-30-2023 Episodic Other non-traumatic joint disorders (8 sources) Arthralgia of the ankle and/or foot; Translations: [Pain in right ankle and joints of right foot] 03-13-2025 Episodic Other non-traumatic joint disorders (1 source) Pain in right ankle and joints of right foot; Translations: [Pain in right ankle and joints of right foot] Onset: 03-17-2025 Episodic Other nutritional; endocrine; and metabolic disorders (2 sources) Obese class I; Translations: [Obesity, Class I, BMI 30-34.9] Onset: 05-25-2025 05-25-2025 Chronic Other screening for suspected conditions (not mental disorders or infectious disease) (6 sources) Encounter for screening for malignant neoplasm of prostate; Translations: [Patient encounter status] Onset: 02-21-2022 Episodic Other skin disorders (2 sources) Actinic keratosis; Translations: [Actinic keratosis] 04-23-2023 Episodic Other skin disorders (3 sources) Ingrowing toenail; Translations: [Ingrowing nail] 10-20-2024 Episodic Other skin disorders (6 sources) Skin lesion; Translations: [Disorder of the skin and subcutaneous tissue, unspecified] 2025 Episodic Other skin disorders (1 source) Ingrowing nail; Translations: [Ingrowing toenail] Onset: 04-26-2025 Episodic Other upper respiratory infections (1 source) Chronic maxillary sinusitis; Translations: [Chronic maxillary sinusitis] 01-15-2024 Chronic Parkinson`s disease (11 sources) Parkinson`s disease; Translations: [Parkinson's disease with dyskinesia, unspecified whether manifestations fluctuate (HCC)] Onset: 06-30-2024 Residual codes; unclassified (1 source) Obstructive sleep apnea (adult) (pediatric); Translations: [Obstructive sleep apnea (adult)(pediatric)] 01-14-2024 Chronic Residual codes; unclassified (6 sources) Obstructive sleep apnea syndrome; Translations: [Obstructive sleep apnea (adult) (pediatric)] 2025 Chronic Residual codes; unclassified (10 sources) FH: Genitourinary disease; Translations: [Family history of other diseases of the genitourinary system] 04-23-2023 Episodic Residual codes; unclassified (3 sources) Immunization not carried out because of patient refusal; Translations: [Vaccination not carried out because of patient refusal] 04-23-2023 Episodic Residual codes; unclassified (1 source) Confusional state; Translations: [Disorientation, unspecified] 01-23-2025 Episodic Residual codes; unclassified (6 sources) Driving fitness status; Translations: [Other specified personal risk factors, not elsewhere classified] 2025 Episodic Residual codes; unclassified (6 sources) Medication refused; Translations: [Immunization not carried out because of patient refusal] 2025 Episodic Residual codes; unclassified (2 sources) Insomnia; Translations: [Insomnia, unspecified] 03-27-2025 Episodic Residual codes; unclassified (7 sources) At risk for elimination problem; Translations: [Other specified personal risk factors, not elsewhere classified] Onset: 05-02-2025 05-02-2025 Episodic Residual codes; unclassified (2 sources) H/O Spinal surgery; Translations: [Other specified postprocedural states] Onset: 05-24-2025 05-24-2025 Episodic Residual codes; unclassified (2 sources) Other specified postprocedural states; Translations: [PONV (postoperative nausea and vomiting)] Onset: 05-02-2025 Episodic Residual codes; unclassified (1 source) Insomnia, unspecified; Translations: [Insomnia, unspecified type] Onset: 03-27-2025 Episodic Residual codes; unclassified (1 source) Pain, unspecified; Translations: [Acute pain] Onset: 05-24-2025 Episodic Septicemia (except in labor) (9 sources) Septic shock; Translations: [Sepsis, unspecified organism] Onset: 07-25-2024 07-25-2024 Episodic Shock (2 sources) Severe sepsis with septic shock; Translations: [Severe sepsis with septic shock (HCC)] Onset: 07-25-2024 Episodic Spondylosis; intervertebral disc disorders; other back problems (6 sources) Degeneration of lumbar intervertebral disc; Translations: [Other intervertebral disc degeneration of lumbar region] 02-09-2024 Chronic Spondylosis; intervertebral disc disorders; other back problems (20 sources) Chronic low back pain; Translations: [Chronic lumbosacral pain] Onset: 04-18-2024 04-23-2023 Episodic Unclassified (1 source) Parkinsonism; Translations: [Parkinsonism, unspecified Parkinsonism type (HCC)] 12-08-2023 Chronic Unclassified (20 sources) Parkinson's disease; Translations: [Parkinson's disease without dyskinesia or fluctuating manifestations (HCC)] Onset: 04-18-2024 04-04-2024 Chronic Unclassified (2 sources) Encounter for general adult medical examination; Translations: [Encounter for general adult medical examination] Onset: 02-21-2022 Unclassified (4 sources) H/O: back problem; Translations: [History of back problems] 04-23-2023 Unclassified (15 sources) Driving safety issue; Translations: [Z91.89 - Other specified personal risk factors, not elsewhere classified] Unclassified (1 source) Autogenerated Problem Onset: 05-14-2025 05-14-2025 Unclassified (1 source) OT EVAL Onset: 02-20-2025 Unclassified (1 source) 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); Translations: [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)] Onset: 03-27-2025 Unclassified (1 source) Lumbar back pain; Translations: [Lumbar back pain] Onset: 03-14-2025 Unclassified (1 source) Blurred Vision Both Eyes Onset: 03-13-2025 Past or Other Problems Problem Classification Problem Date Documented Date Episodic/Chronic Deficiency and other anemia (1 source) Anemia, unspecified; Translations: [Anemia, unspecified type] Onset: 01-23-2025 Episodic E Codes: Fall (3 sources) Fall; Translations: [Unspecified fall, initial encounter] Onset: 02-06-2025 02-06-2025 Episodic Genitourinary symptoms and ill-defined conditions (20 sources) Blood in urine; Translations: [Hematuria, unspecified] Onset: 06-30-2024 Resolved: 07-13-2024 07-26-2024 Episodic Nutritional deficiencies (20 sources) Undernutrition; Translations: [Mild protein-calorie malnutrition] Onset: 07-01-2024 Resolved: 07-13-2024 07-13-2024 Chronic Other aftercare (20 sources) Follow-up status; Translations: [Encounter for other specified aftercare] Onset: 06-29-2024 07-05-2024 Episodic Other aftercare (1 source) Encounter for other specified aftercare; Translations: [Aftercare] Onset: 06-29-2024 Episodic Other circulatory disease (20 sources) Low blood pressure; Translations: [Hypotension, unspecified] Onset: 07-06-2024 Resolved: 07-13-2024 07-13-2024 Episodic Other connective tissue disease (1 source) Repeated falls; Translations: [Repeated falls] Onset: 2025 Episodic Other nervous system disorders (1 source) Other acute postprocedural pain; Translations: [Other acute postprocedural pain] Onset: 07-01-2024 Episodic Other non-traumatic joint disorders (1 source) Pain in left hip; Translations: [Pain in left hip] Onset: 02-13-2025 Episodic Other non-traumatic joint disorders (2 sources) Pain in left knee; Translations: [Pain in left knee] Onset: 07-01-2024 Episodic Residual codes; unclassified (3 sources) Other specified personal risk factors, not elsewhere classified; Translations: [Other specified personal history presenting hazards to health] Onset: 2025 02-20-2025 Episodic Residual codes; unclassified (1 source) Disorientation, unspecified; Translations: [Confusion] Onset: 01-23-2025 Episodic Superficial injury; contusion (2 sources) Contusion of lower back and pelvis, initial encounter; Translations: [Contusion of buttock] Onset: 02-06-2025 02-06-2025 Episodic Unclassified (2 sources) Weakness of both lower extremities 03-19-2025 Urinary tract infections (20 sources) Urinary tract infectious disease; Translations: [Urinary tract infection, site not specified] Onset: 07-03-2024 Resolved: 07-13-2024 07-26-2024 Episodic Results Test Name Value Interpretation Reference Range Facility Absolute lymphocyte countOrd ered By: Mishel Vivar on 05-29-2025 Lymphocytes Auto (Unsp spec) [#/Vol] 2.58 10*3/uL 0.83-4.51 [facility] Absolute neutrophil countOrd ered By: Mishel Vivar on 05-29-2025 Neutrophils (Bld) [#/Vol] 5.3 10*3/uL 2.0-7.7 [facility] Anion gap in Serum or Plasma Ordered By: Mishel Vivar on 05-29-2025 Anion gap [Moles/Vol] 13 mmol/L 5-15 [facility] Automated lymphocyte count a s percentage of total leukocytesOrdered By: Mishel Ghazala on 05-29-2025 Lymphocytes/100 WBC Auto (Unsp spec) 29.2 % 19-41 [facility] BUN/creatinine ratioOrdered By: Mishel Vivar on 05-29-2025 Urea nitrogen/Creatinine [Mass ratio] 26.6 mg/mg High 10-20 [facility] Basophil percentageOrdered B y: Mishelcayden Vivar on 05-29-2025 Basophils/100 WBC (Bld) 0.7 % 0-1 [facility] Carbon dioxide, total [Moles /volume] in Central venous bloodOrdered By: Mishel Vivar on 05-29-2025 CO2 [Moles/Vol] 24.3 mmol/L 21.0-32.0 [facility] Chloride assayOrdered By: Na marina Vivar on 05-29-2025 Chloride [Moles/Vol] 100 mmol/L 98-108 [facility] Electrocardiogram reportOrde red By: Rachel Hinton on 05-29-2025 EKG study [facility] [address] [place] [address] 12 Lead EKG 05/26/25 1138 MR#: [id number] Acct: [id number] Name: NICK SAN Rep #:[id number] : [id number] 65 From: Rachel babin MD Attending Dr: Dr. Manuel Dorantes MD Status: ADM JESSICA Ordering Dr: Mehreen Gallagher te: 05/26/25 Location: [facility]3 Sex: M C Admitted: 05/26/25 Test Reason : Blood Pressure : */* mmHG Vent. Rate : 65 BPM Atrial Rate : 65 BPM P-R Int : 168 ms QRS Dur : 130 ms QT Int : 442 ms P-R-T Axes : 27 -45 96 degrees QTcB Int : 459 ms Sinus rhythm with Fusion complexes Left axis deviation Non-specific intra-ventricular conduction block Minimal voltage criteria for LVH, may be normal variant ( Brady product ) Possible Anterolateral infarct , age undetermined Abnormal ECG Confirmed by YUSUF CAVAZOS, LEIGH ([id number]), sports editor AMINATA DUGGAN ([id number]) on 05/29/2025 7:31:11 AM Referred By: Confirmed By: LEIGH HINTON MD 05/29/25 0731 Date _ Rachel Hinton MD CC: Dr. Amaya No MD; Dr. Manuel Dorantes MD; ANU Kline ~ Signed [facility] Other Phone: Eosinophil percentageOrdered By: Mishel Vivar on 05-29-2025 Eosinophils/100 WBC (Bld) 1.8 % 0-5 [facility] Erythrocyte distribution wid th ratioOrdered By: Mishel Vivar on 05-29-2025 Erythrocyte distribution width (RBC) [Ratio] 12.3 % 11.6-14.6 [facility] Erythrocyte distribution wid th standard deviationOrdered By: Mishel Vivar on 05-29-2025 Erythrocyte distribution width (RBC) [Ratio] 41.7 fl 35.1-43.9 [facility] Glomerular filtration rate ( GFR) estimation/1.73 sq m using serum, plasma, or whole bOrdered By: Mishel Vivar on 05-29-2025 GFR/1.73 sq M.predicted among non-blacks MDRD (S/P/Bld) [Vol rate/Area] 93 mL/min/{1.73_m2} >60 [facility] Comment on above: mL/min/1.73m2 CKD-EP I Creatinine Equation (2020) Hematocrit Auto (Bld) [Volum e fraction]Ordered By: Mishel Vivar on 05-29-2025 Hematocrit (Bld) [Volume fraction] 41.5 % 40-54 [facility] Hemoglobin measurementOrdere d By: Mishel Vivar on 05-29-2025 Hemoglobin (Bld) [Mass/Vol] 14.0 g/dL 13.0-16.5 [facility] Immature granulocytes/100 WB C Auto (Bld)Ordered By: Mishel Vivar on 05-29-2025 Immature granulocytes/100 WBC (Bld) 0.300 % 0.0-0.9 [facility] Comment on above: IG% - Immature Granu locytes (promyelocytes, myelocytes and metamyelocytes) > 1% indicates that a LEFT SHIFT is Present. MCV (mean corpuscular volume ) determinationOrdered By: Mishel Vivar on 05-29-2025 MCV (RBC) [Entitic vol] 91.8 fL 80-94 [facility] Mean corpuscular hemoglobin (MCH) determinationOrdered By: Mishel Vivar on 05-29-2025 MCH (RBC) [Entitic mass] 31.0 pg 27.0-32.0 [facility] Mean corpuscular hemoglobin concentration (MCHC) determinationOrdered By: Mishel Vivar on 05-29-2025 MCHC (RBC) [Mass/Vol] 33.7 g/dL 32-36 [facility] Mean platelet volume determi nationOrdered By: Mishel Vivar on 05-29-2025 Platelet mean volume (Bld) [Entitic vol] 9.5 fL 6.2-12.0 [facility] Monocyte percentageOrdered B y: Mishel Vivar on 05-29-2025 Monocytes/100 WBC (Bld) 7.7 % 0-10 [facility] Neutrophil percentageOrdered By: Mishel Vivar on 05-29-2025 Neutrophils/100 WBC (Bld) 60.3 % 47-70 [facility] Nucleated red blood cell per centageOrdered By: Mishel Vivar on 05-29-2025 Nucleated RBC/100 WBC (Bld) [Ratio] 0 % 0-5 [facility] Platelet countOrdered By: Marina Vivar on 05-29-2025 Platelets (Bld) [#/Vol] 257 10*3/uL 150-450 [facility] Potassium measurement (mass/ volume)Ordered By: Mishel Vivar on 05-29-2025 Potassium (Unsp spec) [Mass/Vol] 4.1 mmol/L 3.3-5.1 [facility] RBC Auto (Bld) [#/Vol]Ordere d By: Mishelcayden Vivar on 05-29-2025 RBC (Bld) [#/Vol] 4.52 10*6/uL Low 4.6-6.2 [facility] Serum creatinine measurement (mass/volume)Ordered By: Mishel Vivar on 05-29-2025 Creatinine [Mass/Vol] 0.90 mg/dL 0.70-1.20 [facility] Serum glucose measurement (m ass/volume)Ordered By: Mishel Vivar on 05-29-2025 Glucose [Mass/Vol] 99 mg/dL 70-99 [facility] Serum or plasma calcium leela urement (mass/volume)Ordered By: Mishel Vivar on 05-29-2025 Calcium [Mass/Vol] 9.5 mg/dL 7.6-11.0 [facility] Serum or plasma urea nitroge n measurement (mass/volume)Ordered By: Mishel Vivar on 05-29-2025 Urea nitrogen [Mass/Vol] 24 mg/dL High 4-19 [facility] Sodium levelOrdered By: Mishel Vivar on 05-29-2025 Sodium [Moles/Vol] 137 mmol/L 133-145 [facility] White blood cell (WBC) count Ordered By: Mishel Vivar on 05-29-2025 WBC (Bld) [#/Vol] 8.8 10*3/uL 4.4-11.0 [facility] Basic Metabolic Profile (BMP )on 05-28-2025 BUN/CRE 19.2 RATIO Normal 10-20 [facility] Comment on above: Performed By: #### L 500.2500 #### [facility] [address] [place], [address] Calcium [Mass/Vol] 9.5 mg/dL Normal 7.6-11.0 [facility] Comment on above: Performed By: #### L 500.2500 #### [facility] [address] [place], [address] Chloride [Moles/Vol] 99 mmol/L Normal 98-108 [facility] Comment on above: Performed By: #### L 500.2500 #### [facility] [address] [place], [address] CO2 [Moles/Vol] 23.8 mmol/L Normal 21.0-32.0 [facility] Comment on above: Performed By: #### L 500.2500 #### [facility] [address] [place], [address] Creatinine [Mass/Vol] 0.99 mg/dL Normal 0.70-1.20 [facility] Comment on above: Performed By: #### L 500.2500 #### [facility] [address] [place], [address] ECRCL 79.47 ml/min Normal 50-250 [facility] Comment on above: Performed By: #### L 500.2500 #### [facility] [address] [place], [address] GAP 13 Normal 5-15 [facility] Comment on above: Performed By: #### L 500.2500 #### [facility] [address] [place], [address] GFR/1.73 sq M.predicted among non-blacks MDRD (S/P/Bld) [Vol rate/Area] 83 mL/min/{1.73_m2} Normal >60 [facility] Comment on above: Result Comment: mL/m in/1.73m2 CKD-EPI Creatinine Equation (2020) Performed By: #### L 500.2500 #### [facility] [address] [place], [address] Glucose [Mass/Vol] 88 mg/dL Normal 70-99 [facility] Comment on above: Performed By: #### L 500.2500 #### [facility] [address] [place], [address] Potassium [Moles/Vol] 4.1 mmol/L Normal 3.3-5.1 [facility] Comment on above: Performed By: #### L 500.2500 #### [facility] [address] [place], [address] Sodium [Moles/Vol] 136 mmol/L Normal 133-145 [facility] Comment on above: Performed By: #### L 500.2500 #### [facility] [address] [place], [address] Urea nitrogen [Mass/Vol] 19 mg/dL Normal 4-19 [facility] Comment on above: Performed By: #### L 500.2500 #### [facility] [address] [place], [address] Bedside Glucoseon 05-28-2025 FINGERSTICK GLU 114 mg/dL High 74-106 [facility] Comment on above: Result Comment: DEXTER PINEDA OF PATIENT CARE PER NURSING PROTOCOL Performed By: #### L 501.080 #### [facility] [address] [place], [address] CBC W/Diff, Automatedon 05-06 Absolute Lymph 2.80 X10 3/uL Normal 0.83-4.51 [facility] Comment on above: Performed By: #### L 500.2500 #### [facility] [address] [place], [address] Absolute Neut 6.0 X10 3/uL Normal 2.0-7.7 [facility] Comment on above: Performed By: #### L 500.2500 #### [facility] [address] [place], [address] Basophils/100 WBC (Bld) 0.6 % Normal 0-1 [facility] Comment on above: Performed By: #### L 500.2500 #### [facility] [address] [place], [address] Eosinophils/100 WBC (Bld) 2.0 % Normal 0-5 [facility] Comment on above: Performed By: #### L 500.2500 #### [facility] [address] [place], [address] Erythrocyte distribution width (RBC) [Ratio] 12.4 % Normal 11.6-14.6 [facility] Comment on above: Performed By: #### L 500.2500 #### [facility] [address] [place], [address] Hematocrit (Bld) [Volume fraction] 40.8 % Normal 40-54 [facility] Comment on above: Performed By: #### L 500.2500 #### [facility] [address] [place], [address] Hemoglobin (Bld) [Mass/Vol] 13.3 g/dL Normal 13.0-16.5 [facility] Comment on above: Performed By: #### L 500.2500 #### [facility] [address] [place], [address] IG% 0.500 Normal 0.0-0.9 [facility] Comment on above: Result Comment: IG% - Immature Granulocytes (promyelocytes, myelocytes and metamyelocytes) > 1% indicates that a LEFT SHIFT is Present. Performed By: #### L 500.2500 #### [facility] [address] [place], [address] Lymphocytes/100 WBC (Bld) 27.9 % Normal 19-41 [facility] Comment on above: Performed By: #### L 500.2500 #### [facility] [address] [place], [address] MCH (RBC) [Entitic mass] 30.3 pg Normal 27.0-32.0 [facility] Comment on above: Performed By: #### L 500.2500 #### [facility] [address] [place], [address] MCHC (RBC) [Mass/Vol] 32.6 g/dL Normal 32-36 [facility] Comment on above: Performed By: #### L 500.2500 #### [facility] [address] [place], [address] MCV (RBC) [Entitic vol] 92.9 fL Normal 80-94 [facility] Comment on above: Performed By: #### L 500.2500 #### [facility] [address] [place], [address] Monocytes/100 WBC (Bld) 9.8 % Normal 0-10 [facility] Comment on above: Performed By: #### L 500.2500 #### [facility] [place], [address] Neutrophils/100 WBC (Bld) 59.2 % Normal 47-70 [facility] Comment on above: Performed By: #### L 500.2500 #### [facility] [address] [place], [address] Nucleated RBC (Bld) [#/Vol] 0 10*3/uL Normal 0-5 [facility] Comment on above: Performed By: #### L 500.2500 #### [facility] [address] [place], [address] Platelet mean volume (Bld) [Entitic vol] 9.9 fL Normal 6.2-12.0 [facility] Comment on above: Performed By: #### L 500.2500 #### [facility] [address] [place], [address] Platelets (Bld) [#/Vol] 215 10*3/uL Normal 150-450 [facility] Comment on above: Performed By: #### L 500.2500 #### [facility] [address] [place], [address] RBC (Bld) [#/Vol] 4.39 10*6/uL Low 4.6-6.2 [facility] Comment on above: Performed By: #### L 500.2500 #### [facility] [address] [place], [address] RDW SD 43.0 fl Normal 35.1-43.9 [facility] Comment on above: Performed By: #### L 500.2500 #### [facility] [address] [place], [address] WBC (Bld) [#/Vol] 10.1 10*3/uL Normal 4.4-11.0 [facility] Comment on above: Performed By: #### L 500.2500 #### [facility] [address] [place], [address] Basic Metabolic Profile (BMP )on 05-27-2025 BUN/CRE 13.6 RATIO Normal 10-20 [facility] Comment on above: Performed By: #### L 501.080 #### [facility] [address] [place], [address] Calcium [Mass/Vol] 9.1 mg/dL Normal 7.6-11.0 [facility] Comment on above: Performed By: #### L 501.080 #### [facility] [address] [place], [address] Chloride [Moles/Vol] 101 mmol/L Normal 98-108 [facility] Comment on above: Performed By: #### L 501.080 #### [facility] [address] [place], [address] CO2 [Moles/Vol] 26.2 mmol/L Normal 21.0-32.0 [facility] Comment on above: Performed By: #### L 501.080 #### [facility] [address] [place], [address] Creatinine [Mass/Vol] 1.09 mg/dL Normal 0.70-1.20 [facility] Comment on above: Performed By: #### L 501.080 #### [facility] [address] [place], [address] ECRCL 72.18 ml/min Normal 50-250 [facility] Comment on above: Performed By: #### L 501.080 #### [facility] [address] [place], [address] GAP 11 Normal 5-15 [facility] Comment on above: Performed By: #### L 501.080 #### [facility] [address] [place], [address] GFR/1.73 sq M.predicted among non-blacks MDRD (S/P/Bld) [Vol rate/Area] 74 mL/min/{1.73_m2} Normal >60 [facility] Comment on above: Result Comment: mL/m in/1.73m2 CKD-EPI Creatinine Equation (2020) Performed By: #### L 501.080 #### [facility] [address] [place], [address] Glucose [Mass/Vol] 112 mg/dL High 70-99 [facility] Comment on above: Performed By: #### L 501.080 #### [facility] [address] [place], [address] Potassium [Moles/Vol] 4.1 mmol/L Normal 3.3-5.1 [facility] Comment on above: Performed By: #### L 501.080 #### [facility] [address] [place], [address] Sodium [Moles/Vol] 138 mmol/L Normal 133-145 [facility] Comment on above: Performed By: #### L 501.080 #### [facility] [address] [place], [address] Urea nitrogen [Mass/Vol] 15 mg/dL Normal 4-19 [facility] Comment on above: Performed By: #### L 501.080 #### [facility] [address] [place], [address] Bedside Glucoseon 05-27-2025 FINGERSTICK GLU 140 mg/dL High 74-106 [facility] Comment on above: Result Comment: DEXTER GEMENT OF PATIENT CARE PER NURSING PROTOCOL Performed By: #### L 501.080 ####[facility] [address] [place], [address] FINGERSTICK GLU 156 mg/dL High 74-106 [facility] Comment on above: Result Comment: DEXTER GEMENT OF PATIENT CARE PER NURSING PROTOCOL Performed By: #### L 500.2500 #### [facility] [address] [place], [address] CBC-Complete Blood Cnt No Di ffon 05-27-2025 Erythrocyte distribution width (RBC) [Ratio] 12.9 % Normal 11.6-14.6 [facility] Comment on above: Performed By: #### L 501.080 #### [facility] [address] [place], [address] Hematocrit (Bld) [Volume fraction] 39.8 % Low 40-54 [facility] Comment on above: Performed By: #### L 501.080 #### [facility] [address] [place], [address] Hemoglobin (Bld) [Mass/Vol] 13.2 g/dL Normal 13.0-16.5 [facility] Comment on above: Performed By: #### L 501.080 #### [facility] [address] [place], [address] MCH (RBC) [Entitic mass] 30.7 pg Normal 27.0-32.0 [facility] Comment on above: Performed By: #### L 501.080 #### [facility] [address] [place], [address] MCHC (RBC) [Mass/Vol] 33.2 g/dL Normal 32-36 [facility] Comment on above: Performed By: #### L 501.080 #### [facility] [address] [place], [address] MCV (RBC) [Entitic vol] 92.6 fL Normal 80-94 [facility] Comment on above: Performed By: #### L 501.080 #### [facility] [address] [place], [address] Platelet mean volume (Bld) [Entitic vol] 9.6 fL Normal 6.2-12.0 [facility] Comment on above: Performed By: #### L 501.080 #### [facility] [address] [place], [address] Platelets (Bld) [#/Vol] 205 10*3/uL Normal 150-450 [facility] Comment on above: Performed By: #### L 501.080 #### [facility] [address] [place], [address] RBC (Bld) [#/Vol] 4.30 10*6/uL Low 4.6-6.2 [facility] Comment on above: Performed By: #### L 501.080 #### [facility] [address] [place], [address] RDW SD 43.6 fl Normal 35.1-43.9 [facility] Comment on above: Performed By: #### L 501.080 #### [facility] [address] [place], [address] WBC (Bld) [#/Vol] 11.3 10*3/uL High 4.4-11.0 [facility] Comment on above: Performed By: #### L 501.080 #### [facility] [address] [place], [address] [facility] deOrdered By: Mishel Vivar on 05-27-2025 Glucose [Mass/Vol] 114 mg/dL High 74-106 [facility] Comment on above: MANAGEMENT OF PATIEN T CARE PER NURSING PROTOCOL Absolute lymphocyte countOrd ered By: Mehreen Gallagher on 05-26-2025 Lymphocytes Auto (Unsp spec) [#/Vol] 2.00 10*3/uL 0.83-4.51 [facility] Absolute neutrophil countOrd ered By: Mehreen Gallagher on 05-26-2025 Neutrophils (Bld) [#/Vol] 8.6 10*3/uL High 2.0-7.7 [facility] Anion gap in Serum or Plasma Ordered By: Mehreen Gallagher on 05-26-2025 Anion gap [Moles/Vol] 11 mmol/L 5-15 [facility] Automated lymphocyte count a s percentage of total leukocytesOrdered By: Mehreen Gallagher on 05-26-2025 Lymphocytes/100 WBC Auto (Unsp spec) 16.6 % Low 19-41 [facility] BUN/creatinine ratioOrdered By: Mehreen Gallagher on 05-26-2025 Urea nitrogen/Creatinine [Mass ratio] 12.9 mg/mg 10-20 [facility] Basic Metabolic Profile (BMP )on 05-26-2025 BUN/CRE 12.9 RATIO Normal - [facility] Comment on above: Performed By: #### L 100.0100, L500.2500 ####[facility] [address] [place], [address] Calcium [Mass/Vol] 9.6 mg/dL Normal 7.6-11.0 [facility] Comment on above: Performed By: #### L 100.0100, L500.2500 ####[facility] [address] [place], [address] Chloride [Moles/Vol] 101 mmol/L Normal 98-108 [facility] Comment on above: Performed By: #### L 100.0100, L500.2500 ####[facility] [address] [place], [address] CO2 [Moles/Vol] 27.1 mmol/L Normal 21.0-32.0 [facility] Comment on above: Performed By: #### L 100.0100, L500.2500 ####[facility] [address] [place], [address] Creatinine [Mass/Vol] 1.19 mg/dL Normal 0.70-1.20 [facility] Comment on above: Performed By: #### L 100.0100, L500.2500 ####[facility] [address] [place], [address] GAP 11 Normal 5-15 [facility] Comment on above: Performed By: #### L 100.0100, L500.2500 ####[facility] [address] [place], [address] GFR/1.73 sq M.predicted among non-blacks MDRD (S/P/Bld) [Vol rate/Area] 67 mL/min/{1.73_m2} Normal >60 [facility] Comment on above: Result Comment: mL/m in/1.73m2 CKD-EPI Creatinine Equation (2020) Performed By: #### L 100.0100, L500.2500 ####[facility] [address] [place], [address] Glucose [Mass/Vol] 137 mg/dL High 70-99 [facility] Comment on above: Performed By: #### L 100.0100, L500.2500 ####[facility] [address] [place], [address] Potassium [Moles/Vol] 4.1 mmol/L Normal 3.3-5.1 [facility] Comment on above: Performed By: #### L 100.0100, L500.2500 ####[facility] [address] [place], [address] Sodium [Moles/Vol] 139 mmol/L Normal 133-145 [facility] Comment on above: Performed By: #### L 100.0100, L500.2500 ####[facility] [address] [place], [address] Urea nitrogen [Mass/Vol] 15 mg/dL Normal 4-19 [facility] Comment on above: Performed By: #### L 100.0100, L500.2500 ####[facility] [address] [place], [address] Basophil percentageOrdered B y: Mehreen Gallagher on 05-26-2025 Basophils/100 WBC (Bld) 0.4 % 0-1 [facility] Bedside Glucoseon 05-26-2025 FINGERSTICK GLU 111 mg/dL High 74-106 [facility] Comment on above: Result Comment: DEXTER PINEDA OF PATIENT CARE PER NURSING PROTOCOL Performed By: #### L 500.2500 #### [facility] [address] [place], [address] Bilirubin Test strip Ql (U)O rdered By: Mehreen Gallagher on 05-26-2025 Bilirubin Ql (U) Negative Negative [facility] Brain/Head without Contrasto n 05-26-2025 Brain/Head without Contrast [facility] Imaging Services [address] [place] [address] Brain/Head without Contrast MR#: [id number] Acct: [id number] Name: NICK SAN Rep #: [id number] : 1960 M 65 From: Raul epstein MD PCP: Dr. Amaya No MD Status: REG ER Study: Brain/Head without Contrast Date of Exam: 05/06 11/29 Exam# [id number] Ordering Dr: Mehreen Gallagher PROCEDURE: BRAIN/HEAD WITHOUT CONTRAST 05/26/2025 REASON FOR EXAM: FALL, HEAD INJURY TECHNIQUE: BRAIN/HEAD WITHOUT CONTRAST Coronal and Sagittal reconstruction series were provided. One or more dose reduction techniques were used (e.g., Automated exposure control, adjustment of the mA and/or kV according to patient size, use of iterative reconstruction technique. RADIATION DOSE SUMMARY: CTDlvol: 44.99 mGy DLP: 812.98 mGycm COMPARISON: None FINDINGS: Brain: Low density in the periventricular white matter suggests mild chronic small vessel ischemic changes. Focal area of encephalomalacia in the left temporal parietal lobes suggestive of old ischemic insult. No surrounding mass effect. CSF Spaces: Mild generalized cerebral atrophy Sinuses/Mastoids: Minimal mucosal thickening at the base of the left maxillary sinus. Bones: No fracture is seen. CT/Brain/Head without Contrast IMPRESSION: NO ACUTE FINDINGS Findings suggestive of encephalomalacia in the left temporoparietal lobes suggestive of old ischemic insult. Reading Location: [id number] CC: Dr. Amaya No MD; [employer]U [employer] Intern: Signed Normal [facility] CBC W/Diff, Automatedon 08- Absolute Lymph 2.00 X10 3/uL Normal 0.83-4.51 [facility] Comment on above: Performed By: #### L 100.0100, L500.2500 ####[facility] [address] [place], [address] Absolute Neut 8.6 X10 3/uL High 2.0-7.7 [facility] Comment on above: Performed By: #### L 100.0100, L500.2500 ####[facility] [address] [place], [address] Basophils/100 WBC (Bld) 0.4 % Normal 0-1 [facility] Comment on above: Performed By: #### L 100.0100, L500.2500 ####[facility] [address] [place], [address] Eosinophils/100 WBC (Bld) 0.3 % Normal 0-5 [facility] Comment on above: Performed By: #### L 100.0100, L500.2500 ####[facility] [address] [place], [address] Erythrocyte distribution width (RBC) [Ratio] 13.0 % Normal 11.6-14.6 [facility] Comment on above: Performed By: #### L 100.0100, L500.2500 ####[facility] [address] [place], [address] Hematocrit (Bld) [Volume fraction] 42.5 % Normal 40-54 [facility] Comment on above: Performed By: #### L 100.0100, L500.2500 ####[facility] [address] [place], [address] Hemoglobin (Bld) [Mass/Vol] 14.1 g/dL Normal 13.0-16.5 [facility] Comment on above: Performed By: #### L 100.0100, L500.2500 ####[facility] [address] [place], [address] IG% 0.300 Normal 0.0-0.9 [facility] Comment on above: Result Comment: IG% - Immature Granulocytes (promyelocytes, myelocytes and metamyelocytes) > 1% indicates that a LEFT SHIFT is Present. Performed By: #### L 100.0100, L500.2500 ####[facility] [address] [place], [address] Lymphocytes/100 WBC (Bld) 16.6 % Low 19-41 [facility] Comment on above: Performed By: #### L 100.0100, L500.2500 ####[facility] [address] [place], [address] MCH (RBC) [Entitic mass] 30.9 pg Normal 27.0-32.0 [facility] Comment on above: Performed By: #### L 100.0100, L500.2500 ####[facility] [address] [place], [address] MCHC (RBC) [Mass/Vol] 33.2 g/dL Normal 32-36 [facility] Comment on above: Performed By: #### L 100.0100, L500.2500 ####[facility] [address] [place], [address] MCV (RBC) [Entitic vol] 93.0 fL Normal 80-94 [facility] Comment on above: Performed By: #### L 100.0100, L500.2500 ####[facility] [address] [place], [address] Monocytes/100 WBC (Bld) 10.9 % High 0-10 [facility] Comment on above: Performed By: #### L 100.0100, L500.2500 ####[facility] [address] [place], [address] Neutrophils/100 WBC (Bld) 71.5 % High 47-70 [facility] Comment on above: Performed By: #### L 100.0100, L500.2500 ####[facility] [address] [place], [address] Nucleated RBC (Bld) [#/Vol] 0 10*3/uL Normal 0-5 [facility] Comment on above: Performed By: #### L 100.0100, L500.2500 ####[facility] [address] [place], [address] Platelet mean volume (Bld) [Entitic vol] 9.2 fL Normal 6.2-12.0 [facility] Comment on above: Performed By: #### L 100.0100, L500.2500 ####[facility] [address] [place], [address] Platelets (Bld) [#/Vol] 206 10*3/uL Normal 150-450 [facility] Comment on above: Performed By: #### L 100.0100, L500.2500 ####[facility] [address] [place], [address] RBC (Bld) [#/Vol] 4.57 10*6/uL Low 4.6-6.2 [facility] Comment on above: Performed By: #### L 100.0100, L500.2500 ####[facility] [address] [place], [address] RDW SD 44.7 fl High 35.1-43.9 [facility] Comment on above: Performed By: #### L 100.0100, L500.2500 ####[facility] [address] [place], [address] WBC (Bld) [#/Vol] 12.0 10*3/uL High 4.4-11.0 [facility] Comment on above: Performed By: #### L 100.0100, L500.2500 ####[facility] [address] [place], [address] Carbon dioxide, total [Moles /volume] in Central venous bloodOrdered By: Mehreen Gallagher on 05-26-2025 CO2 [Moles/Vol] 27.1 mmol/L 21.0-32.0 [facility] Chest PA and Lateralon 05-26 Chest PA and Lateral [facility] Imaging Services [address] [place] [address] Chest PA and Lateral MR#: [id number] Acct: [id number] Name: NICK SAN Rep #: [id number] : 1960 M 65 From: King Crooks MD PCP: Dr. Amaya No MD Status: [facility] ER Study: Chest PA and Lateral Date of Exam: 05/26/25 Exam# [id number] Ordering Dr: Mehreen Gallagher EXAM: XR Chest, 2 Views CLINICAL INDICATION: WEAKNESS TECHNIQUE: Frontal and lateral views of the chest. COMPARISON: No relevant prior studies available. FINDINGS: LUNGS AND PLEURAL SPACES: Bibasilar atelectasis or pneumonia. No pneumothorax. HEART: Unremarkable. No cardiomegaly. MEDIASTINUM: Unremarkable. Normal mediastinal contour. BONES/JOINTS: Unremarkable. No acute fracture. RAD/Chest PA and Lateral IMPRESSION: Bibasilar atelectasis or pneumonia. Reading Location: [facility] CC: Dr. Amaya No MD; ANU [employer] Intern: Signed Normal [facility] Chloride assayOrdered By: Danielle Gallagher on 05-26-2025 Chloride [Moles/Vol] 101 mmol/L 98-108 [facility] Emergency Department Summary on 05-26-2025 Emergency Department Summary [facility] Medical Records Department [address] [place] [address] Emergency Department Summary 05/26/25 MR#: [id number] Acct: [id number] Name: NICK SAN Rep #: [id number] : 1960 65 From: Mehreen BRENNAN PCP: Dr. Amaya No MD Status:ADM JESSICA Location: [place] [address] HPI History of Present Illness Chief Complaint: Weakness Narrative Narrative: Patient presenting today due to generalized weakness and difficulty ambulating. He had a L3/L4 decompression laminectomy and decompression of L3-L4, L4-L5 bilateral root foraminotomies at [facility] by Dr. Ayala. He was discharged home the next day. His daughter had advocated that he be discharged to a SNF due to concerns that he would not to do well at home but he was ultimately discharged home. He has had increased difficulty getting up on his own and lives at home with his who is unable to help him. He did have a fall yesterday in the bathroom getting up off the toilet and fell backwards, hitting his head against the wall and his lower back against the wall. He reports his low back pain has been somewhat worse since his fall. 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 He is currently alert and oriented x 4. Patient denies fevers, chills, abdominal pain, urinary symptoms, bowel/bladder incontinence, and saddle anesthesia/paresthesia. He has a PMH of HLD, HTN, T2DM, Parkinson's disease, and dementia. [facility] Medical History Dementia Pain in joint involving right ankle and foot Wears glasses Depression Bladder disease High cholesterol Back pain Parkinson's disease Stroke/cerebrovascular accident Heartburn Non-smoker History of pain when walking History of edema History of echocardiogram Cardiology follow-up encounter Bilateral primary osteoarthritis of knee Pain in both knees Family history of prostate problems Kidney stones Hypertension Diabetes Arthritis Home Medications ???Medication ???Instructions ???Recorded ???Last Taken ???Type citalopram 40 mg tablet 40 mg PO DAILY DEPRESSION #90 03/29 Unknown Rx TABLETS clonidine HCl 0.2 mg tablet 0.2 mg PO BID BP #180 tabs 5 Unknown Rx lisinopril 10 mg tablet 10 mg PO QDAY #90 tabs 02/08/25 Un known Rx pantoprazole 40 mg tablet,delayed 40 mg PO BID #180 tabs 02/08/25 U nknown Rx release tamsulosin 0.4 mg capsule 0.4 mg PO QHS PROSTATE #90 caps Unknown Rx carbidopa 25 mg-levodopa 100 mg 2 tab PO TID PARKINSON 02/09/25 Un known History tablet naproxen 500 mg tablet 500 mg PO BID #10 tabs 03/13/25 Un known Rx acetaminophen 500 mg tablet 1,000 mg (2 x 500 mg) PO Q8 #90 Unknown Rx tabs aspirin 81 mg tablet,delayed 81 mg PO DAILY HEART HEALTH #90 Unknown Rx release tabs atorvastatin 20 mg tablet 20 mg PO QHS #90 tabs 03/27/25 Unk nown Rx dapagliflozin propanediol 10 mg 10 mg PO DAILY CHOLESTEROL #90 tab s 03/27/25 Unknown Rx tablet oxycodone 5 mg tablet 5 mg PO 4X/DAY PRN PRN pain Unknown History Allergy/AdvReac Type Severity Reaction Status Date / Time acetaminophen (From Vicodin) Allergy Intermediate Nausea/Vom/ Verified 05/26/25 10:29 Diarrhea hydrocodone (From Vicodin) Allergy Intermediate Nausea/Vom/ Verified 05/26/25 10:29 Diarrhea gabapentin Allergy Mild memory Verified 05/26/25 10:29 Family History Mother Hypertension Myocardial infarction Colon cancer CVA (cerebral vascular accident) Depression Diabetes Brother Colon cancer Cancer STOMACH CVA (cerebral vascular accident) Hypertension Father Hypertension Sister Diabetes Surgical History H/O laminectomy S/P knee replacement S/P total knee arthroplasty Social History household members: spouse current occupational status: retired current occupation: [employer] Smoking Status: Never smoker Electronic Cigarette Use: not used alcohol intake: never substance use type: does not use what type of physical activity do you participate in: none seatbelt use: sometimes do you feel safe at home: Yes ROS ROS ED Constitutional Constitutional ED: Denies chills or fever(s) Cardiovascular Cardiovascular: Denies chest pain Respiratory/Chest Respiratory/Chest: Denies dyspnea Gastrointestinal Gastrointestinal: Denies abdominal pain, nausea or vomiting Genitourinary Genitourinary ED: Denies dysuria, hematuria or urinary urgency Musculoskeletal Musculoskeletal: Reports back pain and neck pain Integumentary Denies Abrasions or rash Neur (more content not included)... Normal [facility] Eosinophil percentageOrdered By: Mehreen Gallagher on 05-26-2025 Eosinophils/100 WBC (Bld) 0.3 % 0-5 [facility] Erythrocyte distribution wid th ratioOrdered By: Mehreen Gallagher on 05-26-2025 Erythrocyte distribution width (RBC) [Ratio] 13.0 % 11.6-14.6 [facility] Erythrocyte distribution wid th standard deviationOrdered By: Mehreen Gallagher on 05-26-2025 Erythrocyte distribution width (RBC) [Ratio] 44.7 fl High 35.1-43.9 [facility] Glomerular filtration rate ( GFR) estimation/1.73 sq m using serum, plasma, or whole bOrdered By: Mehreen Gallagher on 05-26-2025 GFR/1.73 sq M.predicted among non-blacks MDRD (S/P/Bld) [Vol rate/Area] 67 mL/min/{1.73_m2} >60 [facility] Comment on above: mL/min/1.73m2 CKD-EP I Creatinine Equation (2020) H AND P Exam - [facility] 05-26-2025 H&P Exam - Hospitalist [facility] Medical Records Department [address] [place] [address] H P Exam - Hospitalist 05/26/25 1434 MR#: [id number] Acct: [id number] Name: NICK SAN Rep #: [id number] : 1960 65 From: Jos Tersea DO PCP: Dr. Amaya No MD Status:ADM JESSICA [facility] - General General Date of Admission: 05/26/25 Date of Service: 05/26/25 Chief Complaint: Generalized weakness after recent lumbar spine procedure HPI Narrative NICK SAN, is a 65 M who presented to [facility] ED on 05/26/2025 with generalized weakness after recent lumbar spine procedure. [facility] records reviewed. Patient had L3-5 decompressive laminectomy procedure done at [facility] on 05/24 for history of lumbar canal stenosis with neurogenic claudication and difficulty with ambulation. Patient tolerated the procedure well and had borderline therapy scores there but opted to be discharged home with home health care on 05/25. Lives at home with his . Daughter is in town from [place] and noted that family pushed for SNF placement but patient ultimately decided for home health care. However, he has had general weakness at home and suffered a fall yesterday in the bathroom; noted he had difficulty getting off the toilet and fell backwards, hitting his head and lower back against the wall. Notes that his low back pain has been somewhat worse since that fall and given his level of debility, daughter brought him in for evaluation for placement. In the ED he was hemodynamically stable on room air at rest. CBC and BMP were benign. CT brain/C/T-spine were largely unremarkable. CT L-spine showed known degenerative changes with postoperative changes noted, no new concerning findings. Chest x-ray was unremarkable. Given patient is stable from an L-spine standpoint postoperatively, does not require transfer to [facility] hospital at this time. Hospitalist was then contacted for admission. I saw the patient at bedside in the ED, daughter and son-in-law were present. Patient was mildly fatigued appearing but otherwise laying back comfortably in bed, conversing normally, in no acute distress. When he attempted to sit up for me to evaluate his back on exam, he had significant weakness noted and was unable to sit up without assistance. He does report postop low back pain that has been tolerable with oxycodone. Notes that his lower extremity numbness and tingling is much improved since the procedure. Denies any other acute concerns currently. Will be admitted for further management. [facility] Medical History Dementia Pain in joint involving right ankle and foot Wears glasses Depression Bladder disease High cholesterol Back pain Parkinson's disease Stroke/cerebrovascular accident Heartburn Non-smoker History of pain when walking History of edema History of echocardiogram Cardiology follow-up encounter Bilateral primary osteoarthritis of knee Pain in both knees Family history of prostate problems Kidney stones Hypertension Diabetes Arthritis Home Medications ???Medication ???Instructions ???Recorded ???Last Taken ???Type citalopram 40 mg tablet 40 mg PO DAILY DEPRESSION #90 03/29 Unknown Rx TABLETS clonidine HCl 0.2 mg tablet 0.2 mg PO BID BP #180 tabs 5 Unknown Rx lisinopril 10 mg tablet 10 mg PO QDAY #90 tabs 02/08/25 Un known Rx pantoprazole 40 mg tablet,delayed 40 mg PO BID #180 tabs 02/08/25 U nknown Rx release tamsulosin 0.4 mg capsule 0.4 mg PO QHS PROSTATE #90 caps Unknown Rx carbidopa 25 mg-levodopa 100 mg 2 tab PO TID PARKINSON 02/09/25 Un known History tablet naproxen 500 mg tablet 500 mg PO BID #10 tabs 03/13/25 Un known Rx acetaminophen 500 mg tablet 1,000 mg (2 x 500 mg) PO Q8 #90 Unknown Rx tabs aspirin 81 mg tablet,delayed 81 mg PO DAILY HEART HEALTH #90 Unknown Rx release tabs atorvastatin 20 mg tablet 20 mg PO QHS #90 tabs 03/27/25 Unk nown Rx dapagliflozin propanediol 10 mg 10 mg PO DAILY CHOLESTEROL #90 tab s 03/27/25 Unknown Rx tablet oxycodone 5 mg tablet 5 mg PO 4X/DAY PRN PRN pain Unknown History Allergy/AdvReac Type Severity Reaction Status Date / Time acetaminophen (From Vicodin) Allergy Intermediate Nausea/Vom/ Verified 05/26/25 10:29 Diarrhea hydrocodone (From Vicodin) Allergy Intermediate Nausea/Vom/ Verified 05/26/25 10:29 Diarrhea gabapentin Allergy Mild memory Verified 05/26/25 10:29 Family History Mother Hypertension Myocardial infarction Colon cancer CVA (cerebral vascular accident) Depression Diabetes Brother Colon cancer Cancer STOMACH CVA (cerebral vascular accident) Hyperte (more content not included)... Normal [facility] Hematocrit Auto (Bld) [Volum e fraction]Ordered By: Mehreen Gallagher on 05-26-2025 Hematocrit (Bld) [Volume fraction] 42.5 % 40-54 [facility] Hemoglobin A1con 05-26-2025 HbA1c (Bld) [Mass fraction] 6.3 % High <=5.6 [facility] Comment on above: Result Comment: Norm al < 5.7 % Prediabetic 5.7 - 6.4 % Diabetic >or= 6.5 % Please note range changes. Performed By: #### L 501.9919 #### [facility] [address] [place], [place] [address]. [place], [place], [id number] Hemoglobin A1c percentageOrd ered By: Jos Teresa on 05-26-2025 HbA1c (Bld) [Mass fraction] 6.3 % High <5.7 [facility] Comment on above: Normal < 5.7 % Predi abetic 5.7 - 6.4 % Diabetic >or= 6.5 % Please note range changes. Hemoglobin measurementOrdere d By: Mehreen Gallagher on 05-26-2025 Hemoglobin (Bld) [Mass/Vol] 14.1 g/dL 13.0-16.5 [facility] Immature granulocytes/100 WB C Auto (Bld)Ordered By: Mehreen Gallagher on 05-26-2025 Immature granulocytes/100 WBC (Bld) 0.300 % 0.0-0.9 [facility] Comment on above: IG% - Immature Granu locytes (promyelocytes, myelocytes and metamyelocytes) > 1% indicates that a LEFT SHIFT is Present. Ketones Test strip Ql (U)Ord ered By: Mehreen Gallagher on 05-26-2025 Ketones Ql (U) Negative Negative [facility] MCV (mean corpuscular volume ) determinationOrdered By: Mehreen Gallagher on 05-26-2025 MCV (RBC) [Entitic vol] 93.0 fL 80-94 [facility] Mean corpuscular hemoglobin (MCH) determinationOrdered By: Mehreen Gallagher on 05-26-2025 MCH (RBC) [Entitic mass] 30.9 pg 27.0-32.0 [facility] Mean corpuscular hemoglobin concentration (MCHC) determinationOrdered By: Mehreen Gallagher on 05-26-2025 MCHC (RBC) [Mass/Vol] 33.2 g/dL 32-36 [facility] Mean platelet volume determi nationOrdered By: Mehreen Gallagher on 05-26-2025 Platelet mean volume (Bld) [Entitic vol] 9.2 fL 6.2-12.0 [facility] Microscopic analysis of urin e for red blood cells (RBC)Ordered By: Mehreen Gallagher on 05-26-2025 Microscopic analysis of urine for red blood cells (RBC) 0 SEEN /hpf 0-5 [facility] Monocyte percentageOrdered B y: Mehreen Gallagher on 05-26-2025 Monocytes/100 WBC (Bld) 10.9 % High 0-10 [facility] Mucus LM Ql (Urine sed)Order ed By: Mehreen Gallagher on 05-26-2025 Mucus Ql (Urine sed) 0 SEEN /hpf [facility] Neutrophil percentageOrdered By: Mehreen Gallagher on 05-26-2025 Neutrophils/100 WBC (Bld) 71.5 % High 47-70 [facility] Nitrite Test strip Ql (U)Ord ered By: Mehreen Gallagher on 05-26-2025 Nitrite Ql (U) Negative Negative [facility] Nucleated red blood cell per centageOrdered By: Mehreen Gallagher on 05-26-2025 Nucleated RBC/100 WBC (Bld) [Ratio] 0 % 0-5 [facility] Platelet countOrdered By: Danielle Gallagher on 05-26-2025 Platelets (Bld) [#/Vol] 206 10*3/uL 150-450 [facility] Potassium measurement (mass/ volume)Ordered By: Mehreen Gallagher on 05-26-2025 Potassium (Unsp spec) [Mass/Vol] 4.1 mmol/L 3.3-5.1 [facility] Protein Test strip Ql (U)Ord ered By: Mehreen Gallagher on 05-26-2025 Protein Ql (U) 30 mg/dl High Negative [facility] RBC Auto (Bld) [#/Vol]Ordere d By: Mehreen Gallagher on 05-26-2025 RBC (Bld) [#/Vol] 4.57 10*6/uL Low 4.6-6.2 [facility] Serum creatinine measurement (mass/volume)Ordered By: Mehreen Gallagher on 05-26-2025 Creatinine [Mass/Vol] 1.19 mg/dL 0.70-1.20 [facility] Serum glucose measurement (m ass/volume)Ordered By: Mehreen Gallagher on 05-26-2025 Glucose [Mass/Vol] 137 mg/dL High 70-99 [facility] Serum or plasma calcium leela urement (mass/volume)Ordered By: Mehreen Gallagher on 05-26-2025 Calcium [Mass/Vol] 9.6 mg/dL 7.6-11.0 [facility] Serum or plasma urea nitroge n measurement (mass/volume)Ordered By: Mehreen Gallagher on 05-26-2025 Urea nitrogen [Mass/Vol] 15 mg/dL 4-19 [facility] Sodium levelOrdered By: Goran Gallagher on 05-26-2025 Sodium [Moles/Vol] 139 mmol/L 133-145 [facility] Spine Cervical without Contr ason 05-26-2025 Spine Cervical without Contras [facility] Imaging Services [address] [place] [address] Spine Cervical without Contras MR#: [id number] Acct: [id number] Name: NICK SAN Rep #: [id number] : 1960 M 65 From: Raul epstein MD PCP: Dr. Amaya No MD Status: REG ER Study: Spine Cervical without Contras Date of Exam: 0 05/26/25 Exam# [id number] Ordering Dr: Mehreen Gallagher PROCEDURE: SPINE CERVICAL WITHOUT CONTRAS 05/26/2025 REASON FOR EXAM: FALL, PAIN TECHNIQUE: SPINE CERVICAL WITHOUT CONTRAS Coronal and Sagittal reconstruction series were provided. One or more dose reduction techniques were used (e.g., Automated exposure control, adjustment of the mA and/or kV according to patient size, use of iterative reconstruction technique. RADIATION DOSE SUMMARY: CTDlvol: 25.41 mGy DLP: 537.80 mGycm COMPARISON: None FINDINGS: Alignment: Straightening of the normal cervical lordosis most likely secondary to muscular spasm. Vertebrae: Vertebral heights are well-maintained. Soft Tissues: Calcific plaques at the level of the carotid bifurcations. Other: C1-2: Unremarkable C2-3: Mild degree of disc space narrowing. Spondylosis. No evidence of stenosis. C3-4: Mild degree of disc space narrowing. Mild anterior spondylosis. No significant abnormality is seen. C4-5: Mild degree of disc space narrowing. No significant stenosis seen. Spondylosis. C5-6: Mild degree of disc space narrowing. Anterior spondylosis. No significant stenosis seen. C6-7: Moderate degree of disc space narrowing and spondylosis. No significant stenosis seen. C7-T1: Unremarkable CT/Spine Cervical without Contras IMPRESSION: DEGENERATIVE CHANGES OF THE CERVICAL SPINE. NO EVIDENCE OF SIGNIFICANT OSSEOUS CENTRAL CANAL OR NEURAL FORAMINAL STENOSIS. Reading Location: [id number] CC: Dr. Amaya No MD; ANU Kline Corporate Intern: Signed Normal [facility] Spine Lumbar without Contras ton 05-26-2025 Spine Lumbar without Contrast [facility] Services [address] [place] [address] Spine Lumbar without Contrast MR#: [id number] Acct: [id number] Name: NICK SAN Rep #: [id number] : 1960 [place] 65 From: Raul epstein MD PCP: Dr. Amaya No MD Status: REG ER Study: Spine Lumbar without Contrast Date of Exam: Exam# [id number] Ordering Dr: Mehreen Gallagher PROCEDURE: SPINE LUMBAR WITHOUT CONTRAST 05/26/2025 REASON FOR EXAM: RECENT SURGERY, FALL, PAIN Recent laminectomy on May 24, 2025. TECHNIQUE: SPINE LUMBAR WITHOUT CONTRAST Coronal and Sagittal reconstruction series were provided. One or more dose reduction techniques were used (e.g., Automated exposure control, adjustment of the mA and/or kV according to patient size, use of iterative reconstruction technique RADIATION DOSE SUMMARY: CTDlvol: 44.36 mGy DLP: 1333.08 mGycm FINDINGS: Vertebrae: Patient is status post laminectomy at the L3-L4, L4-L5 and L5-S1 levels. Postoperative soft tissue changes are seen in the overlying skin. There is a small amount of retroperitoneal air on the left side most likely related to the recent laminectomy. Alignment: Loss of the normal lumbar lordosis most likely secondary to muscle spasm. L1-2: Mild degree of disc space narrowing and spondylosis. Small amount of air is seen in the left retroperitoneal region. No significant stenosis seen. L2-3: Mild degree of disc space narrowing and disc degeneration. Spondylosis. Facet joint osteoarthritis. No significant stenosis seen. L3-4: Mild degree of disc space narrowing. Spondylosis. Facet joint osteoarthritis and hypertrophy. Diffuse posterior disc bulge. Small amount of air is seen within the left side of the thecal sac. L4-5: Marked degree of disc space narrowing with spondylosis and subchondral sclerosis. Postoperative changes are seen. L5-S1: Marked degree of disc space narrowing. Spondylosis. No significant stenosis seen. Sacrum: Unremarkable CT/Spine Lumbar without Contrast IMPRESSION: NO ACUTE LUMBAR FRACTURE. DEGENERATIVE CHANGES. Reading Location: [id number] CC: Dr. Amaya No MD; ANU Kline Corporate Intern: Signed Normal [facility] Spine Thoracic without Contr ason 05-26-2025 Spine Thoracic without Contras [facility] [address] [place] [address] Spine Thoracic without Contras MR#: [id number] Acct: [id number] Name: NICK SAN Rep #: [id number] : 1960 M 65 From: Raul epstein MD PCP: Dr. Amaya No MD Status: REG ER Study: Spine Thoracic without Contras Date of Exam: 0 05/26/25 Exam# [id number] Ordering Dr: Kaz Stovall DO PROCEDURE: SPINE THORACIC WITHOUT CONTRAS 05/26/2025 REASON FOR EXAM: BACK PAIN TECHNIQUE: SPINE THORACIC WITHOUT CONTRAS Coronal and Sagittal reconstruction series were provided. One or more dose reduction techniques were used (e.g., Automated exposure control, adjustment of the mA and/or kV according to patient size, use of iterative reconstruction technique). RADIATION DOSE SUMMARY: CTDlvol: 40.55 mGy DLP: 1755.87 mGycm COMPARISON: None FINDINGS: Alignment: Normal alignment. Bones: Spondylosis and multilevel disc space narrowing. Soft Tissues: Atherosclerotic calcific plaques of the aortic arch and descending thoracic aorta. Other: CT/Spine Thoracic without Contras IMPRESSION: NO ACUTE THORACIC FRACTURE. DEGENERATIVE CHANGES. Reading Location: [id number] CC: Dr. Amaya No MD; Dr. Kaz Stovall DO Corporate Intern: Signed Normal [facility] Squamous epithelial cells de tection in urine sediment by light microscopyOrdered By: Mehreen Gallagher on 05-26-2025 Epithelial cells.squamous LM Ql (Urine sed) 0-5 SEEN /hpf 0-5 [facility] Urinalysis, Completeon 05-26 EPI,SQUAMOUS 0-5 SEEN Normal 0-5 [facility] Comment on above: Order Comment: COLLE CTOR TO SPECIFY Performed By: #### L 400.0001 #### [facility] [address] [place], [address] WBC 0-5 SEEN Normal 0-5 [facility] Comment on above: Order Comment: MARIE CTOR TO SPECIFY Performed By: #### L 400.0001 #### [facility] [address] [place], [address] BACTERIA 0 SEEN Normal None Seen [facility] Comment on above: Order Comment: MARIE CTOR TO SPECIFY Performed By: #### L 400.0001 #### [facility] [address] [place], [address] Mucus Ql (Urine sed) 0 SEEN Normal [facility] Comment on above: Order Comment: MARIE CTOR TO SPECIFY Performed By: #### L 400.0001 #### [facility] [address] [place], [address] RBC 0 SEEN Normal 0-5 [facility] Comment on above: Order Comment: MARIE CTOR TO SPECIFY Performed By: #### L 400.0001 #### [facility] [address] [place], [address] Urine clarityOrdered By: Isael Gallagher on 05-26-2025 Clarity (U) Clear Clear [facility] Urine color determinationOrd ered By: Mehreen Gallagher on 05-26-2025 Color (U) Yellow Yellow [facility] Urine glucose detectionOrder ed By: Mehreen Gallagher on 05-26-2025 Glucose Ql (U) 1000 mg/dl High Normal [facility] Urine leukocyte esterase det ection by dipstickOrdered By: Mehreen Gallagher on 05-26-2025 Leukocyte esterase Test strip Ql (U) Negative Negative [facility] Urine pHOrdered By: Romeo Gallagher on 05-26-2025 pH (U) 6.0 [pH] 5.0 - 8.0 [facility] Urine sediment bacteria coun t by microscopy (number/high power field)Ordered By: Mehreen Gallagher on 05-26-2025 Bacteria LM.HPF (Urine sed) [#/Area] 0 /[HPF] None Seen [facility] Urine specific gravity measu rementOrdered By: Mehreen Gallagher on 05-26-2025 Specific gravity (U) [Rel density] 1.010 1.002-1.03 0 [facility] Urine urobilinogen measureme ntOrdered By: Mehreen Gallagher on 05-26-2025 Urobilinogen Ql (U) Normal mg/dl Normal [facility] White blood cell (WBC) count Ordered By: Mehreen Gallagher on 05-26-2025 WBC (Bld) [#/Vol] 12.0 10*3/uL High 4.4-11.0 [facility] White blood cell countOrdere d By: Mehreen Gallagher on 05-26-2025 White blood cell count 0-5 SEEN /hpf 0-5 [facility] Basic metabolic 2000 panelon 05-25-2025 Anion gap [Moles/Vol] 11 mmol/L Normal 8-15 [facility] Comment on above: Order Comment: Speci men Type: BLOOD SPECIMENOrdering Facility: [facility] Address: [address] [place] [address] Performed By: #### 2 4321-2 ####GNOSTICIST LABORATORYCLIA [id number] [place] [id number] [place] Calcium [Mass/Vol] 10.0 mg/dL Normal 8.5-10.2 [facility] Comment on above: Order Comment: Speci men Type: BLOOD SPECIMENOrdering Facility: [facility] Address: [address] [place] [address] Performed By: #### 2 4321-2 ####GNOSTICIST LABORATORYCLIA [id number] [place] [id number] [place] Chloride [Moles/Vol] 101 mmol/L Normal 98-107 [facility] Comment on above: Order Comment: Speci men Type: BLOOD SPECIMENOrdering Facility: [facility] Address: [address] [place] [address] Performed By: #### 2 4321-2 ####GNOSTICIST LABORATORYCLIA [id number] [place] [address] [place] CO2 [Moles/Vol] 25 mmol/L Normal 22-30 [facility] Comment on above: Order Comment: Speci men Type: BLOOD SPECIMENOrdering Facility: [facility] Address: [address] [place] [address] Performed By: #### 2 4321-2 ####GNOSTICIST LABORATORYCLIA [id number] [place] [id number] [place] Creatinine [Mass/Vol] 0.99 mg/dL Normal 0.73-1.22 [facility] Comment on above: Order Comment: Speci men Type: BLOOD SPECIMENOrdering Facility: [facility] Address: [address] [place] [address] Performed By: #### 2 4321-2 ####GNOSTICIST LABORATORYCLIA [id number] [place] [id number] [place] eGFRcr SerPlBld CKD-EPI 2020 83 mL/min/1.73m??? Normal >=60 [facility] Comment on above: Order Comment: Speci men Type: BLOOD SPECIMENOrdering Facility: [facility] Address: [address] [place] [address] Result Comment: Edie mated Glomerular Filtration Rate (eGFR) is calculated using the 2020 CKD-EPI creatinine equation. This equation utilizes serum creatinine, sex, and age as parameters. The creatinine assay has traceable calibration to isotope dilution-mass spectrometry. Refer to KDIGO guidelines for clinical interpretation. In patients with unstable renal function, e.g. those with acute kidney injury, the eGFR may not accurately reflect actual GFR. Performed By: #### 2 4321-2 ####GNOSTICIST LABORATORYCLIA [id number] [place] [id number] [place] Glucose [Mass/Vol] 142 mg/dL High 74-99 [facility] Comment on above: Order Comment: Kassie mitchell Type: BLOOD SPECIMENOrdering Facility: [facility] Address: [address] [place] [address] Result Comment: The [employer] Diabetes Association (ADA) [...] Indian Diabetes Association. Diabetes Care. 2016.39(Suppl 1). Performed By: #### 2 4321-2 ####GNOSTICIST LABORATORYCLIA [id number] [address] [place] [address] [place] Potassium [Moles/Vol] 4.5 mmol/L Normal 3.7-5.1 [facility] Comment on above: Order Comment: Kassie mitchell Type: BLOOD SPECIMENOrdering Facility: [facility] Address: [address] [place] [address] Performed By: #### 2 4321-2 ####GNOSTICIST LABORATORYCLIA [id number] [place] [address] [place] Sodium [Moles/Vol] 137 mmol/L Normal 136-144 [facility] Comment on above: Order Comment: Kassie mitchell Type: BLOOD SPECIMENOrdering Facility: [facility] Address: [address] [place] [address] Performed By: #### 2 4321-2 ####GNOSTICIST LABORATORYCLIA [id number] [place] [id number] [place] Urea nitrogen [Mass/Vol] 13 mg/dL Normal 9-24 [facility] Comment on above: Order Comment: Kassie mitchell Type: BLOOD SPECIMENOrdering Facility: [facility] Address: [address] [place] [address] Performed By: #### 2 4321-2 ####GNOSTICIST LABORATORYCLIA [id number] [place] [address] [place] CBC panel Auto (Bld)on 05-25 Erythrocyte distribution width (RBC) [Ratio] 12.4 % Normal 11.5-15.0 [facility] Comment on above: Order Comment: Speci men Type: BLOOD SPECIMENOrdering Facility: [facility] Address: [address] [place] [address] Performed By: #### 5 8410-2 ####GNOSTICIST LABORATORYCLIA [id number] [address] [place] [address] [place] Hematocrit (Bld) [Volume fraction] 43.0 % Normal 39.0-51.0 [facility] Comment on above: Order Comment: Speci men Type: BLOOD SPECIMENOrdering Facility: [facility] Address: [address] [place] [address] Performed By: #### 5 8410-2 ####GNOSTICIST LABORATORYCLIA [id number] [place] [address] [place] Hemoglobin (Bld) [Mass/Vol] 14.5 g/dL Normal 13.0-17.0 [facility] Comment on above: Order Comment: Speci men Type: BLOOD SPECIMENOrdering Facility: [facility] Address: [address] [place] [address] Performed By: #### 5 8410-2 ####GNOSTICIST LABORATORYCLIA [id number] [place] [address] [place] MCH (RBC) [Entitic mass] 30.8 pg Normal 26.0-34.0 [facility] Comment on above: Order Comment: Speci men Type: BLOOD SPECIMENOrdering Facility: [facility] Address: [address] [place] [address] Performed By: #### 5 8410-2 ####GNOSTICIST LABORATORYCLIA [id number] [place] [address] [place] MCHC (RBC) [Mass/Vol] 33.7 g/dL Normal 30.5-36.0 [facility] Comment on above: Order Comment: Speci men Type: BLOOD SPECIMENOrdering Facility: [facility] Address: [address] [place] [address] Performed By: #### 5 8410-2 ####GNOSTICIST LABORATORYCLIA [id number] [address] [place], [place] [address] [place] MCV (RBC) [Entitic vol] 91.3 fL Normal 80.0-100.0 [facility] Comment on above: Order Comment: Speci men Type: BLOOD SPECIMENOrdering Facility: [facility] Address: [address] [place] [address] Performed By: #### 5 8410-2 ####GNOSTICIST LABORATORYCLIA [id number] [address] [place] [address] [place] Nucleated RBC (Bld) [#/Vol] 10*3/uL Normal <0.01 [facility] Comment on above: Order Comment: Speci men Type: BLOOD SPECIMENOrdering Facility: [facility] Address: [address] [place] [address] Performed By: #### 5 8410-2 ####GNOSTICIST LABORATORYCLIA [id number] [place] [address] [place] Platelet mean volume (Bld) [Entitic vol] 9.7 fL Normal 9.0-12.7 [facility] Comment on above: Order Comment: Speci men Type: BLOOD SPECIMENOrdering Facility: [facility] Address: [address] [place] [address] Performed By: #### 5 8410-2 ####GNOSTICIST LABORATORYCLIA [id number] [place] [id number] [place] Platelets (Bld) [#/Vol] 227 10*3/uL Normal 150-400 [facility] Comment on above: Order Comment: Speci men Type: BLOOD SPECIMENOrdering Facility: [facility] Address: [address] [place] [address] Performed By: #### 5 8410-2 ####GNOSTICIST LABORATORYCLIA [id number] [address] [place] RBC (Bld) [#/Vol] 4.71 10*6/uL Normal 4.20-6.00 [facility] Comment on above: Order Comment: Speci men Type: BLOOD SPECIMENOrdering Facility: [facility] Address: [address] [place] [id number] Performed By: #### 5 8410-2 ####GNOSTICIST LABORATORYCLIA [id number] [place] [id number] [place] WBC (Bld) [#/Vol] 12.83 10*3/uL High 3.70-11.00 [facility] Comment on above: Order Comment: Speci men Type: BLOOD SPECIMENOrdering Facility: [facility] Address: [address] [place] [address] Performed By: #### 5 8410-2 ####GNOSTICIST LABORATORYCLIA [id number] [place] [id number] [facility] CNDSon 05-25-2025 CNDS HNO ID: [id number] Author: ISAMAR OROZCO PA-C Service: Neurosurgery Author Type: Physician Car Shagger Type: Discharge Summary Filed: 05/26/2025 09:51 Note Text: Attestation signed by Valorie Ayala MD at 05/26/2025 11:15 AM I reviewed the discharge summary. I agree with above note DISCHARGE SUMMARY PATIENT NAME: Nick San ADMISSION DATE: 05/24/2025 DISCHARGE DATE: 05/25/2025 Attending [...] for HHC. F2F placed for CM for HHC. Family would like to have patient discharged [...] this reasons to take this polyethylene glycol (more content not included)... [facility] 05-25-2025 [facility] Telephone (HCS[facility]) NICK SAN ([id number]) 1960 M Date Time Provider Department 05/25/25 [facility] During your visit today, we recorded the following information about you: AlvinBinh LPN 05/25/2025 1:49 PM Signed Date/Time: 05/25/2025 1:46 PM Spoke with nicole Grewal @ phone #: [phone] - Preferred # for contact: [phone] Have you received help from a home care company in the last 60 days? No Can you commit to a visit in this time frame? Yes - If no, please advise that we would not be able to move forward with services and they would need to contact their provider when they are ready to start services. Are you agreeable to [facility] services? Yes What address will we be seeing you at? [address], [address], [place] [address] Do you have any upcoming appointments or things we need to schedule around? Unsure Do you have a teachable CG or can you manage your care independently? CG Who? STUDENT SUPPORT SERVICES DIRECTOR Allergies As of Date: 05/25/2025 Noted Allergy Reaction GABAPENTIN 05/02/2025 1 - Mental Status Change 8 - GI Upset 11 - Vomiting HYDROCODONE 04/23/2023 8 - GI Upset TRAMADOL 04/23/2023 8 - GI Upset VICODIN (HYDROCODONE-ACETAMINOPHE*0 12/08/2023 8 - GI Upset Date Reviewed: 05/24/2025 Reviewed by: Joseph Clark, JASON - Fully Assessed Reason for Visit: Home [...] Diagnosed: 12/08/2023 Calculus of kidney [N20.0] 12/08/2023 (more content not included)... Normal [facility] CONSULTon 05-25-2025 CONSULT HNO ID: [id number] Author: CHARLY LEON MD Service: General Internal Medicine Author Type: Physician Type: Consults Filed: 05/25/2025 13:04 Note Text: CONSULT NOTE - INTERNAL MEDICINE PATIENT NAME: Nick San MRN: @MRN SERVICE DATE: 05/25/2025 SERVICE TIME: [...] no rub or gallops ABDOMEN: Abdomen soft, n (more content not included)... 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 Approximated date 22 or 23. Negative year 2004. Correctly stated age, date, and POTUS. Pt reported I have dementia.) THERAPY DIAGNOSIS Reduced mobility-other, Decreased activities of daily living (ADL) TREATMENT INTERVENTIONS Evaluation, Self Half-Way Management (54382) Timed Code Treatment (minutes): 16 Skilled Treatment Time (minutes): 31 TRAINING AND EDUCATION PROVIDED Activity Adaptation/Compensatory Strategies, Adaptive Equipment/DME, Assistive Device Use, Discharge Planning, Functional Mobility Involving ADLs, Grooming Tasks, Home Set-up/Modifications, Lower Extremity Bathing, Lower Extremity Dressing, Orientation, Pain Management, Precautions/Restrictions, Role of Occupational Therapy, Safety/Judgment, Standing Balance to Improve [place] with ADLs/Self-Care, Toileting , Transfer - Car, [...] Self Care/Home Management, Functional Mobility Training SIGNATURE: Dustin Meyer OTR/L PATIENT NAME: Nick San DATE: May 25, 2025 TIME: 1:56 PM [facility] THERAPY NT HNO ID: [id number] Author: PAOLO DANG PT Service: Physical Therapy Author Type: Physical Therapist Type: Therapy (PT/OT/Speech/Resp) Filed: 05/25/2025 12:08 Note Text: Physical Therapy Treatment Summary SERVICE DATE: 05/25/2025 SERVICE TIME: 1057 to 1130 ROOM: [place] [address] PT 6 Clicks Score: 20 DISCHARGE RECOMMENDATIONS [...] Reduced mobility-other TREATMENT INTERVENTIONS Evaluation, Gait Training (98384) Timed Code Treatment (minutes): 18 Skilled Treatment [...] SIGNATURE: Paolo Dang PT PATIENT NAME: Nick San DATE: May 25, 2025 TIME: 12:06 PM [facility] ANES POSTPROC EVALon 025 ANES POSTPROC EVAL HNO ID: [id number] Author: MAL CHUA MD Service: Anesthesiology Author Type: Anesthesiologist Type: Anesthesia Postprocedure Evaluation Filed: 05/24/2025 18:11 Note Text: POST ANESTHESIA EVALUATION NOTE : 1960 Procedure Summary Date: 05/24/25 Room / Location: [place] [address] / OR Anesthesia Start: 1534 Anesthesia Stop: [...] SIGNATURE: Mal Chua MD PATIENT NAME: Nick San DATE: May 24, 2025 TIME: 6:10 PM CSN: [id number] [facility] ANES PRE-OPon 05-24-2025 ANES PRE-OP HNO ID: [id number] Author: MAL CHUA MD Service: Anesthesiology Author Type: Anesthesiologist Type: Anesthesia Preprocedure Evaluation Filed: 05/24/2025 15:03 Note Text: ANESTHESIOLOGY DAY OF SURGERY NOTE : 1960 Procedure Information Date/Time: 05/24/25 1530 Procedures: LAMINECTOMY DECOMPRESSION FACETECTOMY AND FORAMINOTOMY (Spine Lumbar) DECOMPRESSION LAMINECTOMY 1ST ADD'L LUMBAR SEGMENT (Spine Lumbar) - L3-4 lami decompression of L3-4, L4-5 canal stenosis with foraminotomy Location: OR08 / OR Surgeons: Valorie Ayala MD Estimated body [...] a current smoker. NPO Status: adequate Beta Mikala Monitoring Plan Monitoring plan: Standard ASA. Post Procedure Analgesic Plan Postoperative analgesic plan: multimodal analgesia. Informed Consent Anesthetic risks, benefits, alternatives, personnel and consent discussed: yes. Patient / Responsible Green Party agrees to proceed: yes Patient / [...] contrast (will be provided with radiology test) CT (more content not included)... [facility] BRIEF OP NOTon 05-24-2025 BRIEF OP NOT HNO ID: [id number] Author: VALORIE AYALA MD Service: Neurosurgery Author Type: Physician Type: Brief Op Note Filed: 05/24/2025 17:51 Note Text: BRIEF OPERATIVE / PROCEDURE NOTE LOG ID: [id number] SURGERY/PROCEDURE DATE: 05/24/2025 INCISION/PROCEDURE START TIME: 4:12 PM INCISION CLOSE/PROCEDURE END TIME: 5:47 PM SURGEON(S)/PROCEDURALIST(S) AND LPN RN(S): Surgeons and Role: * Valorie Ayala MD - Primary Physician Car Shagger: Vanda Moulton PA-C SURGERY/PROCEDURE(S): L3, L4 decompressive [...] SIGNATURE: Valorie Ayala MD PATIENT NAME: Nick San DATE: May 24, 2025 TIME: 5:48 PM [facility] HISTORY PHYSICALon HISTORY PHYSICAL HNO ID: [id number] Author: VALORIE AYALA MD Service: Neurosurgery Author [...] SIGNATURE: Valorie Ayala MD PATIENT NAME: Nick San DATE: May 24, 2025 TIME: 3:31 PM PAGER: [phone] [facility] NURSING PROGon 05-24-2025 NURSING PROG HNO ID: [id number] Author: JOSEPH CLARK RN Service: ? Author Type: Registered Nurse Type: Nursing Progress Note Filed: 05/24/2025 19:06 Note Text: Transfer Note: PATIENT NAME: Nick San Patient Location: [address]/[id number] [id number] in stable condition. Patient educated on use of call light and fall precautions. No futher actions taken at this time. Will continue to monitor and check with patient. [facility] OPERATIVE NOon 05-24-2025 OPERATIVE NO HNO ID: [id number] Author: VALORIE AYALA MD Service: Neurosurgery Author Type: Physician Type: Operative Report Filed: 05/24/2025 17:56 Note Text: OPERATIVE/PROCEDURE REPORT LOG ID: [id number] SURGERY/PROCEDURE DATE: 05/24/2025 INCISION/PROCEDURE START TIME: 4:12 PM INCISION CLOSE/PROCEDURE END TIME: 5:47 PM SURGEON(S)/PROCEDURALIST(S) AND LPN RN(S): Surgeons and Role: * Valorie Ayala MD - Primary Physician Car Shagger: Vanda Moulton PA-C ANESTHESIA: General PRE-OP/PRE-PROCEDURE DIAGNOSIS: [...] level. Level was marked with permanent marker. call center agent radiologist reviewed the image remotely and confirmed [...] available. The advanced practice provider provided surgical aide services in a non-teaching setting. My investment sales assistant was present during patient positioning, prepping, draping, opening, retracting, closing, and bandaging; and this assistance was medically necessary given the complexity of the case. SIGNATURE: Valorie Ayala MD PATIENT NAME: Nick San DATE: May 24, 2025 TIME: 5:51 PM [facility] XR LUMBAR SPECIFY 1Von 05-24 XR LUMBAR SPECIFY 1V * * *Final Report* * * DATE [...] Intraoperative examination for surgical planning and documentation. Corporate Intern: TASHA Transcribe Date/Time: May 24 2025 4:50P Dictated by : RAEGAN POWER DO This examination was interpreted and the report reviewed and electronically signed by: RAEGAN POWER DO on May 24 2025 4:50PM EST [id number] [facility] XR VERIFY LEVEL R-FRACE-XAbi 05-24-2025 XR VERIFY LEVEL L-SPINE-NB * * *Final Report* * * DATE [...] phone and video during the surgical procedure. Corporate Intern: TASHA Transcribe Date/Time: May 24 2025 4:31P Dictated by : RAEGAN POWER DO This examination was interpreted and the report reviewed and electronically signed by: RAEGAN POWER DO on May 24 2025 4:31PM EST [id number] [facility] 05-23-2025 [facility] Office Visit (PSYAGR ) JASWINDERCLAUDIANICK Radha ([id number]) 1960 Date Time Provider Department 05/23/25 2:00 PM NICK ENNIS PSYAGR During your visit today, we recorded the following information about you: Nick Ennis, PhD 05/23/2025 2:49 PM Signed [facility] Neuropsychological Evaluation Report Patient: Nick San Date of : 1960 Dates of Service: 05/01/2025 (testing), 05/23/2025 (feedback) Referral Source: Dr. Miranda Del Rio (neurology) Referral: Mr. Nick San is a 65-year-old, right-handed male referred for [...] day care. Daughter and son-in-law live in [place], coming up often to help care for him. They want him to move to [place] but unsure if this is possible. She [...] No complications or developmental delays Language: Monolingual Ethiopian speaker Education: Completed 9 years of education. 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 Earned mostly average grades. Reported some difficulty with Ethiopian in school but not able to elaborate; family not aware of this and not able to clarify. Never formally diagnosed with learning disorder. Retained in 1st grade for unclear reasons Occupation: Retired at 60. 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 Normal [facility] NT-proBNP [facility] 05-11 Natriuretic peptide.B prohormone N-Terminal [Mass/Vol] 103 pg/mL Normal <125 [facility] Comment on above: Order Comment: Speci men Type: BLOOD SPECIMENOrdering Facility: [facility] Address: [address] [place] [address] Performed By: #### 3 3762-6 ####[facility] LABCLIA [id number] [place] [address] [place] CBC W Auto Differential pane l (Bld)on 05-02-2025 Basophils (Bld) [#/Vol] 0.06 10*3/uL [facility] Basophils/100 WBC (Bld) 0.8 % [facility] Differential cell count method Nom (Bld) Auto [facility] Eosinophils (Bld) [#/Vol] 0.12 10*3/uL [facility] Eosinophils/100 WBC (Bld) 1.6 % [facility] Erythrocyte distribution width (RBC) [Ratio] 12.4 % 11.5 - 15.0 % [facility] Hematocrit (Bld) [Volume fraction] 42.2 % 39.0 - 51.0 % [facility] Hemoglobin (Bld) [Mass/Vol] 14 g/dL 13.0 - 17.0 g/dL [facility] Immature granulocytes (Bld) [#/Vol] NINF [facility] Immature granulocytes/100 WBC (Bld) 0.3 % [facility] Interpretation and review of laboratory results Abnormal [facility] Lymphocytes (Bld) [#/Vol] 2.78 10*3/uL [facility] Lymphocytes/100 WBC (Bld) 36.9 % [facility] MCH (RBC) [Entitic mass] 30.6 pg 26.0 - 34.0 pg [facility] MCHC (RBC) [Mass/Vol] 33.2 g/dL 30.5 - 36.0 g/dL [facility] MCV (RBC) [Entitic vol] 92.3 fL 80.0 - 100.0 fL [facility] Monocytes (Bld) [#/Vol] 0.66 10*3/uL [facility] Monocytes/100 WBC (Bld) 8.8 % [facility] Neutrophils (Bld) [#/Vol] 3.89 10*3/uL [facility] Neutrophils/100 WBC (Bld) 51.6 % [facility] Nucleated RBC (Bld) [#/Vol] NINF [facility] Nucleated RBC/100 WBC (Bld) [Ratio] 0 % /100 WBC [facility] Platelet mean volume (Bld) [Entitic vol] 8.9 fL Low 9.0 - 12.7 fL [facility] Platelets (Bld) [#/Vol] 286 10*3/uL [facility] RBC (Bld) [#/Vol] 4.57 10*6/uL 4.20 - 6.00 m/uL [facility] WBC (Bld) [#/Vol] 7.53 10*3/uL [facility] Basophils (Bld) [#/Vol] 0.06 10*3/uL Normal <0.11 [facility] Comment on above: Order Comment: Speci men Type: BLOOD SPECIMENOrdering Facility: [facility] Address: [address] [place] [address] Performed By: #### 5 7021-8 ####[facility] LABCLIA [id number] [place] [address] [place] Basophils/100 WBC (Bld) 0.8 % Normal [facility] Comment on above: Order Comment: Speci men Type: BLOOD SPECIMENOrdering Facility: [facility] Address: [address] [place] [address] Performed By: #### 5 7021-8 ####[facility] LABCLIA [id number] [place] [address] [place] Differential cell count method Nom (Bld) Auto Normal [facility] Comment on above: Order Comment: Speci men Type: BLOOD SPECIMENOrdering Facility: [facility] Address: [address] [place] [address] Performed By: #### 5 7021-8 ####[facility] LABCLIA [id number] [place] [address] [place] Eosinophils (Bld) [#/Vol] 0.12 10*3/uL Normal <0.46 [facility] Comment on above: Order Comment: Speci men Type: BLOOD SPECIMENOrdering Facility: [facility] Address: [address] [place] [address] Performed By: #### 5 7021-8 ####[facility] LABCLIA [id number] [address] [place] Eosinophils/100 WBC (Bld) 1.6 % Normal [facility] Comment on above: Order Comment: Speci men Type: BLOOD SPECIMENOrdering Facility: [facility] Address: [address] [place] [address] Performed By: #### 5 7021-8 ####[facility] LABCLIA [id number] [address] [place] Erythrocyte distribution width (RBC) [Ratio] 12.4 % Normal 11.5-15.0 [facility] Comment on above: Order Comment: Speci men Type: BLOOD SPECIMENOrdering Facility: [facility] Address: [address] [place] [address] Performed By: #### 5 7021-8 ####[facility] LABIA [id number] [address] [place] Hematocrit (Bld) [Volume fraction] 42.2 % Normal 39.0-51.0 [facility] Comment on above: Order Comment: Speci men Type: BLOOD SPECIMENOrdering Facility: [facility] Address: [address] [place] [address] Performed By: #### 5 7021-8 ####[facility] LABIA [id number] [place] [address] [place] Hemoglobin (Bld) [Mass/Vol] 14.0 g/dL Normal 13.0-17.0 [facility] Comment on above: Order Comment: Speci men Type: BLOOD SPECIMENOrdering Facility: [facility] Address: [address] [place] [address] Performed By: #### 5 7021-8 ####[facility] LABIA [id number] [place] [address] [place] Immature granulocytes (Bld) [#/Vol] 10*3/uL Normal <0.10 [facility] Comment on above: Order Comment: Speci men Type: BLOOD SPECIMENOrdering Facility: [facility] Address: [address] [place] [address] Performed By: #### 5 7021-8 ####TARIQAniyaFEI [facility] LABCLIA [id number] [address] [place] Immature granulocytes/100 WBC (Bld) 0.3 % Normal [facility] Comment on above: Order Comment: Speci men Type: BLOOD SPECIMENOrdering Facility: [facility] Address: [address] [place] [address] Performed By: #### 5 7021-8 ####[facility] LABIA [id number] [address] [place] Lymphocytes (Bld) [#/Vol] 2.78 10*3/uL Normal 1.00-4.00 [facility] Comment on above: Order Comment: Speci men Type: BLOOD SPECIMENOrdering Facility: [facility] Address: [address] [place] [address] Performed By: #### 5 7021-8 ####[facility] LABCLIA [id number] [address] [place] Lymphocytes/100 WBC (Bld) 36.9 % Normal [facility] Comment on above: Order Comment: Speci men Type: BLOOD SPECIMENOrdering Facility: [facility] Address: [address] [place] [address] Performed By: #### 5 7021-8 ####[facility] LABCLIA [id number] [address] STATES OF [facility] MCH (RBC) [Entitic mass] 30.6 pg Normal 26.0-34.0 [facility] Comment on above: Order Comment: Speci men Type: BLOOD SPECIMENOrdering Facility: [facility] Address: [address] [place] [address] Performed By: #### 5 7021-8 ####[facility] LABCLIA [id number] [address] MCHC (RBC) [Mass/Vol] 33.2 g/dL Normal 30.5-36.0 [facility] Comment on above: Order Comment: Speci men Type: BLOOD SPECIMENOrdering Facility: [facility] Address: [address] [place] [address] Performed By: #### 5 7021-8 ####[facility] LABCLIA [id number] [address] MCV (RBC) [Entitic vol] 92.3 fL Normal 80.0-100.0 [facility] Comment on above: Order Comment: Speci men Type: BLOOD SPECIMENOrdering Facility: [facility] Address: [address] [place] [address] Performed By: #### 5 7021-8 ####[facility] LABCLIA [id number] [place] [address] [place] Monocytes (Bld) [#/Vol] 0.66 10*3/uL Normal <0.87 [facility] Comment on above: Order Comment: Speci men Type: BLOOD SPECIMENOrdering Facility: [facility] Address: [address] [place] [address] Performed By: #### 5 7021-8 ####[facility] LABCLIA [id number] [place] [address] [place] Monocytes/100 WBC (Bld) 8.8 % Normal [facility] Comment on above: Order Comment: Speci men Type: BLOOD SPECIMENOrdering Facility: [facility] Address: [address] [place] [address] Performed By: #### 5 7021-8 ####[facility] LABCLIA [id number] [place] [address] [place] Neutrophils (Bld) [#/Vol] 3.89 10*3/uL Normal 1.45-7.50 [facility] Comment on above: Order Comment: Speci men Type: BLOOD SPECIMENOrdering Facility: [facility] Address: [address] [place] [address] Performed By: #### 5 7021-8 ####[facility] LABCLIA [id number] [place] [address] [place] Neutrophils/100 WBC (Bld) 51.6 % Normal [facility] Comment on above: Order Comment: Speci men Type: BLOOD SPECIMENOrdering Facility: [facility] Address: [address] [place] [address] Performed By: #### 5 7021-8 ####STRONGSFEI [facility] LABCLIA [id number] [place] [id number] [place] Nucleated RBC (Bld) [#/Vol] 10*3/uL Normal <0.01 [facility] Comment on above: Order Comment: Speci men Type: BLOOD SPECIMENOrdering Facility: [facility] Address: [address] [place] [address] Performed By: #### 5 7021-8 ####[facility]I [facility] LABCLIA [id number] [place] [address] [place] Nucleated RBC/100 WBC (Bld) [Ratio] 0.0 /100 WBC Normal [facility] Comment on above: Order Comment: Speci men Type: BLOOD SPECIMENOrdering Facility: [facility] Address: [address] [place] [address] Performed By: #### 5 7021-8 ####[facility] LABCLIA [id number] [place] [address] [place] Platelet mean volume (Bld) [Entitic vol] 8.9 fL Low 9.0-12.7 [facility] Comment on above: Order Comment: Speci men Type: BLOOD SPECIMENOrdering Facility: [facility] Address: [address] [place] [address] Performed By: #### 5 7021-8 ####[facility] LABIA [id number] [place] [address] [place] Platelets (Bld) [#/Vol] 286 10*3/uL Normal 150-400 [facility] Comment on above: Order Comment: Speci men Type: BLOOD SPECIMENOrdering Facility: [facility] Address: [address] [place] [address] Performed By: #### 5 7021-8 ####[facility] LABCLIA [id number] [place] [address] [place] RBC (Bld) [#/Vol] 4.57 10*6/uL Normal 4.20-6.00 [facility] Comment on above: Order Comment: Speci men Type: BLOOD SPECIMENOrdering Facility: [facility] Address: [address] [place] [address] Performed By: #### 5 7021-8 ####[place] [facility] LABCLIA [id number] [place] [id number] [place] WBC (Bld) [#/Vol] 7.53 10*3/uL Normal 3.70-11.00 [facility] Comment on above: Order Comment: Speci men Type: BLOOD SPECIMENOrdering Facility: [facility] Address: [address] [place] [address] Performed By: #### 5 7021-8 ####[place] [facility] LABCLIA [id number] [place] [id number] [facility] CNOVon 05-02-2025 CNOV Office Visit (NSFRVW ) NICK SAN ([id number]) 1960 M Date Time Provider Department 05/02/25 1:00 PM VALORIE AYALA NSFRVW During your visit today, we recorded the following information about you: Pulse Blood pressure Weight Height 70/minute 119/79 90 kg 1.829 m Valorie Ayala MD 05/02/2025 1:47 PM Signed SPINE SURGERY NEW PATIENT PCP: Aga Benitez MD REFERRING PROVIDER: Tammi Garcia [address] [facility] [address] Subjective Nick aSn is a pleasant 65-year-old male with a [...] since age 16 and has previously sought child care development specialist, which provided temporary relief. He has not [...] sides are about the same Aggravating Factors: Sitting;Standing;Walking;Ly ing down;Bending forward/backward;Changing position;Pulling/pushing Alleviating Factors: None Non-Surgical Therapies Tried: Physical Therapy;Chiropractor;Epidur al steroid injections;NSAIDS;Muscle relaxers Prior Spine Surgery(s): They [...] factors: Smoking status: Never BMI:27.12 kg/m2. Current Anticoagulation/Antiplatele t Use: Aspirin Obesity normal BMI: 27.12 kg/m2 [...] (LIPITOR) 20 mg tablet TAKE 1 TABLET (more content not included)... Normal [facility] CONFIRM BLOOD TYPEon 025 ABO group Nom (Bld) O [facility] Rh Nom (Bld) Positive [facility] ABO O Normal [facility] Comment on above: Order Comment: Speci men Type: BLOOD SPECIMENOrdering Facility: [facility] Address: [address] [place] [address] Performed By: #### C ONABO ####[facility] BANKCLIA [id number] [place] [address] [place] Rh Nom (Bld) Positive Normal [facility] Comment on above: Order Comment: Speci men Type: BLOOD SPECIMENOrdering Facility: [facility] Address: [address] [place] [address] Performed By: #### C ONAB ####CC [facility] BANKIA [id number] [place] [address] [place] Comprehensive metabolic 2000 panelon 05-02-2025 Albumin [Mass/Vol] 4.3 g/dL Normal 3.9-4.9 [facility] Comment on above: Order Comment: Speci men Type: BLOOD SPECIMENOrdering Facility: [facility] Address: [address] [place] [address] Performed By: #### 2 4323-8, 2276-4, 28084-6 ####[facility] LABCLIA [id number] [place] [address] [place] ALP [Catalytic activity/Vol] 103 U/L Normal 38-113 [facility] Comment on above: Order Comment: Speci men Type: BLOOD SPECIMENOrdering Facility: [facility] Address: [address] [place] [address] Performed By: #### 2 4323-8, 2276-4, 34915-8 ####[facility] LABIA [id number] [address] [place] ALT [Catalytic activity/Vol] U/L Low 10-54 [facility] Comment on above: Order Comment: Speci men Type: BLOOD SPECIMENOrdering Facility: [facility] Address: [address] [place] [address] Result Comment: Resu lt rechecked. Performed By: #### 2 4323-8, 2276-4, 27054-6 ####[facility] LABIA [id number] [place] [address] [place] Anion gap [Moles/Vol] 12 mmol/L Normal 8-15 [facility] Comment on above: Order Comment: Speci men Type: BLOOD SPECIMENOrdering Facility: [facility] Address: [address] [place] [address] Performed By: #### 2 4323-8, 6-4, 55896-3 ####[facility] LABIA [id number] [place] [address] [place] AST [Catalytic activity/Vol] 15 U/L Normal 14-40 [facility] Comment on above: Order Comment: Speci men Type: BLOOD SPECIMENOrdering Facility: [facility] Address: [address] [place] [address] Performed By: #### 2 4323-8, 6-4, 41165-3 ####[facility] LABIA [id number] [place] [address] [place] Bilirubin [Mass/Vol] 0.3 mg/dL Normal 0.2-1.3 [facility] Comment on above: Order Comment: Speci men Type: BLOOD SPECIMENOrdering Facility: [facility] Address: [address] [place] [address] Performed By: #### 2 4323-8, 6-4, 37777-7 ####[facility] LABIA [id number] [place] [address] [place] Calcium [Mass/Vol] 9.5 mg/dL Normal 8.5-10.2 [facility] Comment on above: Order Comment: Speci men Type: BLOOD SPECIMENOrdering Facility: [facility] Address: [address] [place] [address] Performed By: #### 2 4323-8, 6-4, 59545-3 ####[facility] LABIA [id number] [place] [id number] [place] Chloride [Moles/Vol] 102 mmol/L Normal 98-107 [facility] Comment on above: Order Comment: Speci men Type: BLOOD SPECIMENOrdering Facility: [facility] Address: [address] [place] [address] Performed By: #### 2 4323-8, 6-4, 25396-7 ####[facility] LABIA [id number] [place] [id number] [place] CO2 [Moles/Vol] 25 mmol/L Normal 22-30 [facility] Comment on above: Order Comment: Speci men Type: BLOOD SPECIMENOrdering Facility: [facility] Address: [address] [place], [place] [address] Performed By: #### 2 4323-8, 2275-4, 84639-5 ####[facility] LABIA [id number] [place] [id number] [place] Creatinine [Mass/Vol] 1.11 mg/dL Normal 0.73-1.22 [facility] Comment on above: Order Comment: Speci men Type: BLOOD SPECIMENOrdering Facility: [facility] Address: [address] [place] [address] Performed By: #### 2 4323-8, 2275-4, 00682-6 ####[facility] [id number] [place] [address] [place] eGFRcr SerPlBld CKD-EPI 2020 73 mL/min/1.73m??? Normal >=60 [facility] Comment on above: Order Comment: Speci men Type: BLOOD SPECIMENOrdering Facility: [facility] Address: [address] [place] [address] Result Comment: Edie mated Glomerular Filtration Rate (eGFR) is calculated using the 2020 CKD-EPI creatinine equation. This equation utilizes serum creatinine, sex, and age as parameters. The creatinine assay has traceable calibration to isotope dilution-mass spectrometry. Refer to KDIGO guidelines for clinical interpretation. In patients with unstable renal function, e.g. those with acute kidney injury, the eGFR may not accurately reflect actual GFR. Performed By: #### 2 4323-8, 6-4, 29928-1 ####[facility] LABIA [id number] [place] [id number] [place] Glucose [Mass/Vol] 124 mg/dL High 74-99 [facility] Comment on above: Order Comment: Speci men Type: BLOOD SPECIMENOrdering Facility: [facility] Address: [address] [place] [address] Result Comment: The [employer] Diabetes Association (ADA) [...] Indian Diabetes Association. Diabetes Care. 2016.39(Suppl 1). Performed By: #### 2 4323-8, 2276-4, 80167-9 ####[facility] LABCLIA [id number] [place] [id number] [place] Potassium [Moles/Vol] 4.2 mmol/L Normal 3.7-5.1 [facility] Comment on above: Order Comment: Speci men Type: BLOOD SPECIMENOrdering Facility: [facility] Address: [address] [place] [address] Performed By: #### 2 4323-8, 2276-4, 43171-9 ####[facility] LABCLIA [id number] [place] [id number] [place] Protein [Mass/Vol] 6.7 g/dL Normal 6.3-8.0 [facility] Comment on above: Order Comment: Speci men Type: BLOOD SPECIMENOrdering Facility: [facility] Address: [address] [place], [place] [address] Performed By: #### 2 4323-8, 2276-4, 45904-6 ####[facility] LABCLIA [id number] [address] [address] [place] Sodium [Moles/Vol] 139 mmol/L Normal 136-144 [facility] Comment on above: Order Comment: Speci men Type: BLOOD SPECIMENOrdering Facility: [facility] Address: [address] [place] [address] Performed By: #### 2 4323-8, 2276-4, 01536-4 ####[facility] LABIA [id number] [place] [id number] [place] Urea nitrogen [Mass/Vol] 19 mg/dL Normal 9-24 [facility] Comment on above: Order Comment: Speci men Type: BLOOD SPECIMENOrdering Facility: [facility] Address: [address] [place] [address] Performed By: #### 2 4323-8, 2276-4, 69085-3 ####[facility] LABIA [id number] [place] [id number] [place] Ferritin SerPl-mCncon 2024 Ferritin [Mass/Vol] 182.0 ng/mL Normal 30.3-565.7 [facility] Comment on above: Order Comment: Speci men Type: BLOOD SPECIMENOrdering Facility: [facility] Address: [address] [place] [address] Performed By: #### 2 4323-8, 2276-4, 32005-5 ####[facility] [id number] [address] [address] [place] HISTORY PHYSICALon HISTORY PHYSICAL HNO ID: [id number] Author: CAROLINE FRIAS APRN.LEAD [employer] MANAGER Service: ? Author Type: Nurse Practitioner Type: [...] - Reviewed Cardiology notes from Dr. Jensen ([facility]) dated April 2024; echo showed EF [...] adequate. Short neck: no. Thick neck: no Landa present: yes Microretrognathia/Micronagt hia/Recessed Chin: No DENTAL Dental findings: teeth intact. II - ANESTHESIA PLAN Anesthetic plan additional comments: *PACC/TCI - anesthesia choice. Beta Mikala Monitoring Plan Post Procedure Analgesic Plan Prepared [...] Expiration Date: 08/01/2025 Confirm Blood Type Standing S (more content not included)... Normal [facility] HbA1c (Bld)on 05-02-2025 Average glucose Estimated from glycated hemoglobin (Bld) [Mass/Vol] 137 mg/dL Normal [facility] Comment on above: Order Comment: Speci men Type: BLOOD SPECIMENOrdering Facility: [facility] Address: [address] [place] [address] Result Comment: eAG: (Estimated average glucose) is a calculated value from HgbA1c and is installation service representative of the average blood glucose level in the last 2-3 month period. Performed By: #### 5 5454-3 ####[facility] LABCLIA [id number] [place] [address] [place] HbA1c (Bld) [Mass fraction] 6.4 % High 4.3-5.6 [facility] Comment on above: Order Comment: Kassie mitchell Type: BLOOD SPECIMENOrdering Facility: [facility] Address: [address] [place] [address] Result Comment: Jefry ican Diabetes Association guidelines indicate that patients with HgbA1c in the range 5.7-6.4% are at increased risk for development of diabetes, and intervention by lifestyle modification may be beneficial. HgbA1c greater or equal to 6.5% is considered diagnostic of diabetes. Performed By: #### 5 5454-3 ####[facility] LABCLIA [id number] [address] [address] [place] Iron and Iron binding capaci ty panelon 05-02-2025 Iron [Mass/Vol] 79 ug/dL Normal 41-186 [facility] Comment on above: Order Comment: Kassie men Type: BLOOD SPECIMENOrdering Facility: [facility] Address: [address] [place] [address] Performed By: #### 2 4323-8, 6-4, 69682-0 ####[facility] LABCLIA [id number] [place] [id number] [place] Iron binding capacity [Mass/Vol] 281 ug/dL Normal 232-386 [facility] Comment on above: Order Comment: Speci men Type: BLOOD SPECIMENOrdering Facility: [facility] Address: [address] [place] [address] Performed By: #### 2 4323-8, 2275-4, 72516-8 ####[facility] LABCLIA [id number] [place] [id number] [place] Iron/TIBC [Molar ratio] 28.1 % Normal 15.0-57.0 [facility] Comment on above: Order Comment: Speci men Type: BLOOD SPECIMENOrdering Facility: [facility] Address: [address] [place] [address] Performed By: #### 2 4323-8, 6-4, 65984-7 ####[facility] LABCLIA [id number] [place] [id number] [place] TYPE AND SCREEN,30 DAYon ABO O Normal [facility] Comment on above: Order Comment: Speci men Type: BLOOD SPECIMENOrdering Facility: [facility] Address: [address] [place] [address] Performed By: #### T SCR30 ####[facility] BLOOD BANKCLIA [id number] [place] [address] [place] Rh Nom (Bld) Positive Normal [facility] Comment on above: Order Comment: Speci men Type: BLOOD SPECIMENOrdering Facility: [facility] Address: [address] [place] [address] Performed By: #### T SCR30 ####[facility] MAIN BLOOD BANKCLIA [id number] [place] [id number] [place] CNOVon 05-01-2025 CNOV Office Visit (PSYAGR ) NICK SAN ([id number]) 1960 M Date Time Provider Department 05/01/25 8:00 AM NICK ENNIS PSYAGR During your visit today, we recorded the following information about you: Nick Ennis, PhD 05/18/2025 11:11 AM Addendum [facility] Neuropsychology Consultation Name: Nick San Date of : 1960 Age: [age] year old Date of Evaluation: May 01, 2025 Mr. San was seen today for a clinical interview and neuropsychological testing. Follow up visit to discuss the results of the evaluation currently scheduled for 05/23/25 at 2:00 pm. Full report to follow. Nick Ennis, PhD Referring Provider: MIRANDA DEL RIO [[id number]] Allergies As of Date: 05/01/2025 Noted Allergy Reaction DELETED: ACETAMINOPHEN 04/23/2023 8 - GI Upset HYDROCODONE 04/23/2023 8 - GI Upset TRAMADOL 04/23/2023 8 - GI Upset VICODIN (HYDROCODONE-ACETAMINOPHE*0 12/08/2023 8 - GI Upset Date Reviewed: 04/26/2025 [...] [I95.9] 07/06/2024 07/13/2024 Encounter Status:Closed by NICK ENNIS on 05/01/25 [facility] Mindy 04-28-2025 TYRELN Telephone (PSYAGR) NICK SAN ([id number]) 1960 M Date Time Provider Department 04/28/25 NICK ENNIS PSYAGR During your visit today, we recorded the following information about you: Joann Sherman 04/28/2025 1:47 PM Signed Placed a reminder call for Neuropsychological testing. Talked to the patient; they confirmed appointment. Allergies As of Date: 04/28/2025 Noted Allergy Reaction ACETAMINOPHEN 04/23/2023 8 - GI Upset HYDROCODONE 04/23/2023 8 - GI Upset TRAMADOL 04/23/2023 8 - GI Upset VICODIN (HYDROCODONE-ACETAMINOPHE*0 12/08/2023 8 - GI Upset Date Reviewed: 04/26/2025 [...] Encounter Status:Closed by JOANN SHERMAN on 04/28/25 [facility] CNOVon 04-26-2025 CNOV Office Visit (UROLMD ) MARLONNICK HUTSON ([id number]) 1960 M Date Time Provider Department 04/26/25 1:50 PM CORAL FRANCISCO URONATALIIA During your visit today, we recorded the following information about you: Weight Height 90.7 kg 1.829 m Arlin Alcocer LPN 04/26/2025 2:45 PM Signed Bladder scan obtained 0 ml of urine Coral Francisco PA-C 04/26/2025 2:45 PM Signed [facility] MALE PATIENT - HISTORY AND PHYSICAL EXAMINATION PATIENT: Nick San Patient has been identified by name and date of : Yes Recording using [employer] software for draft documentation of the visit was discussed with the patient/authorized installation service representative; all questions welcomed and answered. Patient/authorized installation service representative agreed to proceed PCP: Aga Benitez MD CHIEF COMPLAINT: Overactive bladder HISTORY OF PRESENT ILLNESS: Mr. San is a 65 year old male patient [...] with his . - Daughter resides in [place] and visits to assist with medical appointments. - History of working with [employer] for 50 years. REVIEW OF SYSTEMS: PAST [...] - 1.22 mg/dL Final 07/09/2024 1.17 0.73 (more content not included)... Normal [facility] PVR ANK PRESS SERINA VAS LABon 04-26-2025 PVR ANK PRESS SERINA VAS LAB Non-Invasive Vascular Laboratory [place] [facility] Lower Extremity Arterial Physiology Study Bilateral/Complete Date of service/time: 04/26/2025 12:34:44 PM Name: NICK SAN Date of : 1960 Age: 65 years [...] ADILENE: 1.10 Ankle posterior tibial: 189 mmHg ADLIENE: 1.17 Digit: 120 mmHg Left PVR Waveforms [...] Technologist: Lyn Che Dania Ordering physician: KATE BELCHER Interpreting physician: Jesus Sam MD, MARICARMEN Final CC [employer] [facility] Image : [id number] See Link below for Image Normal [facility] UA DIP, URINE (POC)on 2024 BILIRUBIN UA (POCT) Negative Negative [facility] CLARITY UA (POCT) Clear [facility] COLOR UA (POCT) Yellow [facility] GLUCOSE UA (POCT) 500 mg/dL Abnormal Negative [facility] Hemoglobin Ql (U) Negative Negative [facility] Interpretation and review of laboratory results Abnormal [facility] KETONE UA (POCT) Negative Negative mg/dL [facility] LEUKOCYTES UA (POCT) Negative Negative [facility] NITRITE UA (POCT) Negative Negative [facility] PH UA (POCT) 7 4.5 - 8.0 [facility] Protein Ql (U) Negative Negative mg/dL [facility] SPECIFIC GRAVITY UA (POCT) 1.02 1.005 - 1.030 [facility] UROBILINOGEN UA (POCT) 0.2 Karina l E.U./dL [facility] Location:[place] [address] [place], [place], [address] [place] [address] POINT OF CARE [facility] Mindy 04-06-2025 CNPN Telephone (NEADMN) NICK SAN ([id number]) 1960 Date Time Provider Department 04/06/25 MIRANDA DEL RIO During your visit today, we recorded the following information about you: Génesis Sykes 04/06/2025 4:04 PM Signed Call received for Miranda Del Rio MD regarding Nick San 1960. Caller: Family member: Carmina Patient Identified [...] to help. Last Office Visit: 03/27/2025 Last [facility] visit: Visit date not found Next scheduled appointment: 06/19/2025 Best number to reach caller: [phone] Best time to reach caller: any Is [...] is older and does not speak much Ethiopian. Daughter is trying to figure out how to help him. Asking advice. Massiel Tovar RN, BSMiranda Hoover MD 04/11/2025 11:16 AM Signed He had [...] Lux 04/14/2025 2:17 PM Signed Carmina/ nayana [phone] Wanting to speak with nursing about her father Mayte Fishmanjuliann Rodarte, RN 04/14/2025 4:46 PM Signed This RN [...] qualified to answer them in depth. She plac (more content not included)... Normal [facility] CNOVon 03-27-2025 CNOV Office Visit (PODIWS ) NICK SAN ([id number]) 1960 M Date Time Provider Department 03/27/25 1:00 PM KATE BELCHER During your visit today, we recorded the following information about you: Marcell Reynoso, RN 03/27/2025 1:26 PM Signed Patient presents with: Left Foot - Established Patient, Follow Up, Diabetic Foot Check Right Foot - Established Patient, Follow Up, Diabetic Foot Check Patient presents for follow up diabetic foot/nail care. Also due for diabetic foot check. LOV10/20/24 Kate Belcher 03/27/2025 1:26 PM Signed Last saw pcp: [...] blood in stools or black stools and (more content not included)... Normal [facility] Office Visit ([facility] ) NICK SAN ([id number]) 1960 M Date Time Provider Department 03/27/25 10:00 AM MIRANDA DEL RIO [facility] During your visit today, we recorded the following information about you: Pulse Blood pressure Weight 63/minute 108/72 92.4 kg Miranda Del Rio MD 04/16/2025 11:03 PM Signed FOLLOW UP NOTE Subjective Nick San is a 65 year old male who [...] off primidone. I double checked with his college professor who did not feel propranolol currently needed [...] but was Cd/ld 25/100 2 pills @ , 14-5, -0200 Current Outpatient Medications Medication Sig [...] Exam: Mental Status: He is alert. March 19-2024, age 65, tue x, difficulty with sentence repetition, recall is partially impaired (more content not included)... Normal [facility] MR Lumbar spine WO contrasto n 03-27-2025 IMPRESSION: Severe canal, right subarticular recess and mild to moderate bony foraminal stenosis at L3-4. Multilevel bony foraminal narrowing as detailed above. Stable appearance of the lumbosacral spine since 07/13/2023. Anatomic Lumbar Variant: None. L4-5 is considered the level of the iliac crest and assume there are 5 lumbar-type vertebrae. Corporate Intern: TASHA Transcribe Date/Time: Mar 27 2025 4:30P Dictated by : LORENZO NERI MD This examination was interpreted and the report reviewed and electronically signed by: LORENZO NERI MD on Mar 27 2025 4:45PM [facility] DIVISION OF RADIOLOGY * * *Final Report* * * DATE OF EXAM: Mar 27 2025 4:15PM [facility] 0303 - MRI LUMBAR SPINE WO IVCON [...] the liver and left kidney on the turbo generator oiler images, likely representing cysts. Alignment: Again noted [...] changes in the visualized right SI joint. DIVISION OF RADIOLOGY Provider, [facility] - 03/27/2025 * * *Final Report* * * DATE OF EXAM: Mar 27 2025 4:15PM [facility] 0303 - MRI LUMBAR SPINE WO [...] the liver and left kidney on the turbo generator oiler images, likely representing cysts. Alignment: Again noted [...] changes in the visualized right SI joint. IMPRESSION IMPRESSION: Severe canal, right subarticular recess and mild to moderate bony foraminal stenosis at L3-4. Multilevel bony foraminal narrowing as detailed above. Stable appearance of the lumbosacral spine since 07/13/2023. Anatomic Lumbar Variant: None. L4-5 is considered the level of the iliac crest and assume there are 5 lumbar-type vertebrae. Corporate Intern: PSCB Transcribe Date/Time: Mar 27 2025 4:30P Dictated by : LORENZO NERI MD This examination was interpreted and the report reviewed and electronically signed by: LORENZO NERI MD on Mar 27 2025 4:45PM EST [facility] Radiology Study observation (narrative) [facility] MR Lumbar spine WO contrastO rdered By: [facility] Provider on 03-27-2025 [facility] MRI LUMBAR SPINE WO IVCONon 06-23-2025 MRI LUMBAR SPINE WO IVCON * * *Final Report* * * DATE OF EXAM: Mar 27 2025 4:15PM [facility] 0303 - MRI LUMBAR SPINE WO IVCON [...] the liver and left kidney on the turbo generator oiler images, likely representing cysts. Alignment: Again noted [...] and assume there are 5 lumbar-type vertebrae. Corporate Intern: [facility] Transcribe Date/Time: Mar 27 2025 4:30P Dictated by : LORENZO NERI MD This examination was interpreted and the report reviewed and electronically signed by: LORENZO NERI MD on Mar 27 2025 4:45PM EST [id number] Normal [facility] CNOVon 03-14-2025 CNOV Office Visit (SPMESH ) NICK SAN ([id number]) 1960 M Date Time Provider Department 03/14/25 8:45 AM TAMMI GARCIA [facility] During your visit today, we recorded the following information about you: Pulse Blood pressure Weight 60/minute 96/58 92.4 kg Tammi Garcia DO 03/19/2025 6:44 PM Signed [facility] [place] [facility] [place] [facility] - Medical Spine Initial Exam SUBJECTIVE HISTORY OF PRESENT ILLNESS: Nicksaida San is a 65 year old male who [...] An MRI performed two years ago at [facility] revealed findings that led to a [...] Chiropractic Prior spine interventions: TPI 2023 in [place], 4 shots he thinks, no fluoro guidance - didn't help Prior spine surgery: none Previously treated by: -Spine Surgery at [facility] - offered surgery for lumbar spine PMH: Parkinson's T2DM Kidney stone CHF Mild depression on Celexa h/o cancer: none PSH: Left TKA 07/14/2024 See below Social Personal life: Lives with his Exercise: Walking 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 Normal [facility] Ankle min 3 Viewson 03-13-20 25 Ankle min 3 Views [facility] Services [address] [place], [place] [address] Ankle min 3 Views MR#: [id number] Acct: [id number] Name: NICK SAN Rep #: [id number] : 1960 M 65 From: Elroy Rendon PCP: Dr. Amaya No MD Status: REG CLI Study: Ankle min 3 Views Date of Exam: 03/13/25 Exam# [id number] Ordering Dr: Chris Blas PROCEDURE: ANKLE MIN 3 VIEWS; FOOT MIN 3 VIEWS 03/13/2025 REASON FOR EXAM: PAIN TECHNIQUE: 4 views of the right ankle and three-view right foot (combined dictation). COMPARISON: None. RAD/Ankle min 3 Views IMPRESSION: Prominent arterial calcification is noted. Large inferior calcaneal spur and large posterior calcaneal enthesophyte noted. Normal contour of the Achilles tendon is seen. No ankle joint effusion is evident. Mild degenerative changes of the right ankle are most apparent medially. No significant joint narrowing is evident. Of the right foot, mild degenerative changes of the toes are seen, with dyan-ym-ypshdysh degenerative changes of the 1st metatarsophalangeal joint. 1st metatarsal head bunion formation is also seen. No significant hallux valgus is noted. No acute fracture or dislocation is evident. Reading Location: [address] CC: Dr. Amaya No MD; ANU Mccormick Corporate Intern: Signed Normal [facility] CNTHERAPYon 03-13-2025 CNTHERAPY OT/PT/Speech Visit ( AKOTLK) NICK SAN ([id number]) 1960 M Date Time Provider Department 03/13/25 10:00 AM LEON HUYNH Date Time Provider Department Center 03/13/2025 10:00 AM [id number] HUYNH Reason for Visit: OT EVAL [748] OT Discharge [750] Primary Visit Diagnosis:Parkinson's disease with dyskinesia without fluctuating manifestations (HCC) [G20.B1] Allergies As of Date: 03/13/2025 Noted Allergy Reaction ACETAMINOPHEN 04/23/2023 8 - GI Upset HYDROCODONE 04/23/2023 8 - GI Upset TRAMADOL 04/23/2023 8 - GI Upset VICODIN (HYDROCODONE-ACETAMINOPHE*0 12/08/2023 8 - GI Upset Date Reviewed: 02/06/2025 [...] mg by mouth once daily. Letter Text Normal [facility] Foot min 3 Viewson Foot min 3 Views [facility] Imaging Services [address] [place] [address] Foot min 3 Views MR#: [id number] Acct: [id number] Name: NICK SAN Rep #: [id number] : 1960 M 65 From: Elroy Rendon PCP: Dr. Amaya No MD Status: REG CLI Study: Foot min 3 Views Date of Exam: 03/13/25 Exam# [id number] Ordering Dr: Chris Blas PROCEDURE: ANKLE MIN 3 VIEWS; FOOT MIN 3 VIEWS 03/13/2025 REASON FOR EXAM: PAIN TECHNIQUE: 4 views of the right ankle and three-view right foot (combined dictation). COMPARISON: None. RAD/Foot min 3 Views IMPRESSION: Prominent arterial calcification is noted. Large inferior calcaneal spur and large posterior calcaneal enthesophyte noted. Normal contour of the Achilles tendon is seen. No ankle joint effusion is evident. Mild degenerative changes of the right ankle are most apparent medially. No significant joint narrowing is evident. Of the right foot, mild degenerative changes of the toes are seen, with poms-vc-mppozdni degenerative changes of the 1st metatarsophalangeal joint. 1st metatarsal head bunion formation is also seen. No significant hallux valgus is noted. No acute fracture or dislocation is evident. Reading Location: [id number] CC: Dr. Amaya No MD; ANU Mccormick Corporate Intern: Signed Normal [facility] Urgent Care Visit Reporton 0 03-13-2025 Urgent Care Visit Report [facility] [address], [address] [place] [address] OFFICE VISIT Date of Service: 03/13/25 MR#: [id number] Acct: [id number] Name: NICK SAN Rep #: [id number] : 1960 Provider: ANU Mccormick Age/Sex: 65/M Location: [facility] Status: Signed Intake Vital Signs 02/07/25 08:40 03/13/25 15:18 Height 6 ft Weight: 202 lb BMI 27.3 BP 136/100 H 122/84 H Blood Pressure Location Lt brachial Lt brachial Position Sitting Sitting Respiration 16 16 Pulse 78 60 Pulse Source Monitor Monitor Temp 97.7 F L Temp Source Temporal Pulse Oximetry (%) 97 98 Oxygen Delivery Method room air room air Intake Visit Reasons: R FOOT PAIN Chief Complaint: 3rd Euflexxa Injection Is patient in pain?: Yes Allergies acetaminophen (From Vicodin) Allergy (Intermediate, Verified 03/13/25 15:17) Nausea/Vom/Diarrhea hydrocodone (From Vicodin) Allergy (Intermediate, Verified 03/13/25 15:17) Nausea/Vom/Diarrhea gabapentin Allergy (Mild, Verified 03/13/25 15:17) memory Medications ???Medication ???Instructions ???Recorded ???Confirmed ???Type aspirin 81 mg tablet,delayed 81 mg PO DAILY HEART HEALTH 03/13/25 History release dapagliflozin propanediol 10 mg 10 mg PO DAILY CHOLESTEROL 4 03/13/25 History tablet spironolactone 25 mg tablet 25 mg PO QDAY WATER PILL 03/17/24 03/13/25 History acetaminophen 500 mg tablet 1,000 mg (2 x 500 mg) PO Q8 #90 03/13/25 Rx tabs atorvastatin 20 mg tablet 20 mg PO QHS 08/01/24 03/13/25 His tory citalopram 40 mg tablet 40 mg PO DAILY DEPRESSION #90 03/2903/13/25 Rx TABLETS clonidine HCl 0.2 mg tablet 0.2 mg PO BID BP #180 tabs 5 03/13/25 Rx lisinopril 10 mg tablet 10 mg PO QDAY #90 tabs 02/08/25 Rx pantoprazole 40 mg tablet,delayed 40 mg PO BID #180 tabs 02/08/25 0 03/13/25 Rx release tamsulosin 0.4 mg capsule 0.4 mg PO QHS PROSTATE #90 caps 03/13/25 Rx carbidopa 25 mg-levodopa 100 mg 2 tab PO TID PARKINSON 02/09/25 History tablet oxybutynin chloride 10 mg 10 mg PO DAILY #30 tabs 02/28/25 0 03/13/25 Rx tablet,extended release 24 hr naproxen 500 mg tablet 500 mg PO BID #10 tabs 03/13/25 Rx Have you fallen in the past year?: No Nurse's Note: x1 week right top or foot to ankle. pain is worse in am , 6/10 ambulation is difficult. tx- tylenol with some effectiveness [facility] Medical History (Updated 03/13/25 @ 17:42 by Chris BRENNAN, PA) Pain in joint involving right ankle and foot Wears glasses Depression Bladder disease High cholesterol Back pain Parkinson's disease Stroke/cerebrovascular accident Heartburn Non-smoker History of pain when walking History of edema History of echocardiogram Cardiology follow-up encounter Bilateral primary osteoarthritis of knee Pain in both knees Family history of prostate problems Kidney stones Hypertension Diabetes Arthritis Surgical History (Updated 02/07/25 @ 08:[address] Amaya No MD) S/P total knee arthroplasty S/P knee replacement Family History Mother Hypertension Myocardial infarction Colon cancer CVA (cerebral vascular accident) Depression Diabetes Brother Colon cancer Cancer STOMACH CVA (cerebral vascular accident) Hypertension Father Hypertension Sister Diabetes Social History household members: spouse current occupational status: retired current occupation: [employer] Smoking Status: Never smoker Electronic Cigarette Use: not used alcohol intake: never substance use type: does not use what type of physical activity do you participate in: none seatbelt use: sometimes do you feel safe at home: Yes HPI HPI Chief Complaint: 3rd Euflexxa Injection Details: NICK SAN, is a 65 M who presents to the office today for x1 week h/o right top of foot to anterior ankle - ? etiol. No history of trauma to the same. Pain is worse in am , 6/10 ambulation is difficult. Tylenol with some relief. No locking or giving way of right ankle. No other associated symptoms and no other alleviating/aggravating factors. ROS Const Constitutional: No other (As above) Exam Const General: cooperative, healthy appearing and no acute distress Orientation: alert and awake Neck Neck: normal visual inspection, no lymphadenopathy, no meningeal signs and supple Chest Chest palpation inspection: normal inspection of the chest Resp Effort Inspection: normal respiratory effort and able to speak in complete sentences Cardio Rate: regular rate Pulses: radial pulses present Skin General: no rashes or lesions noted (more content not included)... Normal [facility] [id number] 02-20-2025 [id number] HNO ID: [id number] Author: LEON HUYNH OTR/L Service: ? 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 Due to the complex nature of the safe operation of a motor vehicle, and considering the demands of integrating changing environmental conditions, and visual, cognitive, and physical skills, successful completion of this program is not a guarantee of safe driving in the future. ASSESSMENT OF INSTRUMENTAL ADL AND COMMUNITY MOBILITY: Nick San presents with the diagnosis of Parkinson's Disease. 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 Signature certifies the need for therapy services[facility]/PT/Speech Visit ( AKOTLK) NICK SAN ([id number]) 1960 M Date Time Provider Department 02/20/25 8:00 AM LEON HUYNH Date Time Provider Department Center 02/20/2025 8:00 AM [id number] HUYNH [facility] Reason for Visit: OT EVAL [748] Primary Visit Diagnosis:Parkinson's disease with dyskinesia without fluctuating manifestations (HCC) [G20.B1] Other Visit Diagnosis:Other specified personal risk factors, not elsewhere classified [Z91.89] Allergies As of Date: 02/20/2025 Noted Allergy Reaction ACETAMINOPHEN 04/23/2023 8 - GI Upset HYDROCODONE 04/23/2023 8 - GI Upset TRAMADOL 04/23/2023 8 - GI Upset VICODIN (HYDROCODONE-ACETAMINOPHE*0 12/08/2023 8 - GI Upset Date Reviewed: 02/06/2025 [...] mg by mouth once daily. Letter Text Normal [facility] HIP, UNI W/ Pelvis 2-3 Views on 2025 HIP, UNI W/ Pelvis 2-3 Views [facility] Imaging Services [address] [place] [address] HIP, UNI W/ Pelvis 2-3 Views MR#: [id number] Acct: [id number] Name: NICK SAN Rep #: [id number] : 1960 M 65 From: Patric Nelson i, MD PCP: Dr. Amaya No MD Status: REG CLI Study: HIP, UNI W/ Pelvis 2-3 Views Date of Exam: 03/29 Exam# [id number] Ordering Dr: Amaya No MD PROCEDURE: HIP, UNI W/ PELVIS 2-3 VIEWS 2025 REASON FOR EXAM: FELL ABOUT A WEEK AGO, PAIN LEFT HIP TECHNIQUE: Frontal view of the pelvis and additional views of the left hip. COMPARISON: None. FINDINGS: Advanced disc space narrowing seen within the lower lumbar spine. CT a phleboliths seen within the pelvis. Lxlf-ca-uqgafvvl narrowing seen within the bilateral hip joints, yrqh-xnorcyb-otwx-right. No fracture or dislocation is seen within the pelvic or bilateral hips. Scattered phleboliths seen within the right pelvis. RAD/HIP, UNI W/ Pelvis 2-3 Views IMPRESSION: No fracture is identified. Reading Location: [id number] CC: Dr. Amaya No MD Corporate Intern: Signed Normal [facility] Lumbar Spine 2 or 3 Viewson 2025 Lumbar Spine 2 or 3 Views [facility] Imaging Services [address] [place] [id number] Lumbar Spine 2 or 3 Views MR#: [id number] Acct: [id number] Name: NICK SAN Rep #: [id number] : 1960 M 65 From: Balaji Magana MD PCP: Dr. Amaya No MD Status: REG CLI Study: Lumbar Spine 2 or 3 Views Date of Exam: Exam# [id number] Ordering Dr: Amaya No MD PROCEDURE: LUMBAR SPINE 2 OR 3 VIEWS 2025 REASON FOR EXAM: FALL TECHNIQUE: 2 view(s) of the lumbar spine COMPARISON: 06/15/2023 FINDINGS: No fracture or malalignment. No significant interval change since the prior study. Multilevel spondylosis/discogenic change again seen appears greatest at L4-5 and L5-S1 with similar appearing disc space narrowing and degenerative endplate change. Mildly prominent appearing small bowel loops upper abdomen may represent degree of ileus or possible enteritis not excluded, clinically correlate. RAD/Lumbar Spine 2 or 3 Views IMPRESSION: No fracture or malalignment. No significant interval change since the prior study. Mildly prominent appearing small bowel loops upper abdomen may represent degree of ileus or possible enteritis not excluded, clinically correlate. Reading Location: [id number] CC: Dr. Amaya No MD Corporate Intern: Signed Normal [facility] CNOVon 02-06-2025 CNOV Office Visit ([facility] ) NICK SAN ([id number]) 1960 M Date Time Provider Department 02/06/25 1:15 PM ALEICA ENAMORADO [facility] During your visit today, we recorded the following information about you: Temperature Pulse Respiration Blood pressure 97.5 degrees 89/minute 16/minute 130/82 Weight 91.5 kg Alecia Enamorado MD 02/06/2025 2:19 PM Addendum [facility] Subjective Nick San is a 64 year old male. Patient [...] and will keep follow-up as scheduled. Alecia Enamorado MD Differential Diagnoses - contusion of buttock and upper arm Procedures Allergies As of Date: 02/06/2025 Noted Allergy Reaction ACETAMINOPHEN 04/23/2023 8 - GI Upset HYDROCODONE 04/23/2023 8 - GI Upset TRAMADOL 04/23/2023 8 - GI Upset VICODIN (HYDROCODONE-ACETAMINOPHE*0 12/08/2023 8 - GI Upset Date Reviewed: 02/06/2025 [...] lock post exam. If Pt. has a ce (more content not included)... Normal [facility] Internal Medicine Office Vis itopadma 02-06-2025 Internal Medicine Office Visit [facility] [place] [address] OFFICE VISIT Date of Service: 02/07/25 MR#: [id number] Acct: [id number] Name: NICK SAN Radha Rep #: [id number] : 1960 Provider: Dr. 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 Accompanied by: Daughter Is patient in pain?: No Allergies acetaminophen (From Vicodin) Allergy (Intermediate, Verified 02/07/25 08:31) Nausea/Vom/Diarrhea hydrocodone (From Vicodin) Allergy (Intermediate, Verified 02/07/25 08:31) Nausea/Vom/Diarrhea Medications ???Medication ???Instructions ???Recorded ???Confirmed ???Type aspirin 81 mg tablet,delayed 81 mg PO DAILY HEART HEALTH 02/07/25 History release dapagliflozin propanediol 10 mg 10 mg PO DAILY CHOLESTEROL 4 02/07/25 History tablet spironolactone 25 mg tablet 25 mg PO QDAY WATER PILL 03/17/24 02/07/25 History carbidopa 25 mg-levodopa 100 mg 1 tab PO TID PARKINSON 05/23/24 History tablet amlodipine 10 mg tablet 10 mg PO DAILY BP #90 tabs 4 02/07/25 Rx tamsulosin 0.4 mg capsule 0.4 mg PO QHS PROSTATE #90 caps 02/07/25 Rx acetaminophen 500 mg tablet 1,000 mg (2 x 500 mg) PO Q8 #90 02/07/25 Rx tabs atorvastatin 20 mg tablet 20 mg PO QHS 08/01/24 02/07/25 His tory pantoprazole 40 mg tablet,delayed 40 mg PO BID 08/01/24 02/07/25 Hi story release citalopram 40 mg tablet 40 mg PO DAILY DEPRESSION #90 05/0 03/2902/07/25 Rx TABLETS clonidine HCl 0.2 mg tablet 0.2 mg PO BID BP #180 tabs 5 02/07/25 Rx lisinopril 10 mg tablet 10 mg PO QDAY 02/07/25 02/07/25 Hi story Have you fallen in the past year?: Yes (02/2025. L side was evaluated, and deemed ok) Nurse's Note: Saw 1 other at [facility] and did not like her, he wanted to come back, has been seeing urology, cardiology. Is seeing [facility] for cardiology, Dr. Morillo through [facility] for neurology and Dr. Daniels for urology. [facility] did not think he needed to see a urologist so he will not be going back as he was also sent to collections. Needs citalopram and clonidine refilled has been out but uncertain as to how long. Recently had bloodwork done. [facility] Medical History (Updated 02/07/25 @ 08:[address] Amaya No MD) Wears glasses Depression Bladder disease High cholesterol Back pain Parkinson's disease Stroke/cerebrovascular accident Heartburn Non-smoker History of pain when walking History of edema History of echocardiogram Cardiology follow-up encounter Bilateral primary osteoarthritis of knee Pain in both knees Family history of prostate problems Kidney stones Hypertension Diabetes Arthritis Surgical History (Updated 02/07/25 @ 08:[address] Amaya No MD) S/P total knee arthroplasty S/P knee replacement Family History Mother Hypertension Myocardial infarction Colon cancer CVA (cerebral vascular accident) Depression Diabetes Brother Colon cancer Cancer STOMACH CVA (cerebral vascular accident) Hypertension Father Hypertension Sister Diabetes Social History household members: spouse current occupational status: retired current occupation: [employer] Smoking Status: Never smoker Electronic Cigarette Use: not used alcohol intake: never substance use type: does not use what type of physical activity do you participate in: none seatbelt use: sometimes do you feel safe at home: Yes HPI HPI Details: NICK SAN, is a 64 M who presents to the office today to re-establish care. He was last seen here about a year ago. Since then, he had been following with Dr. Aga Benitez and last saw them in March. He is up to date on his routine blood work and doesn't know when he last had colon cancer screening. He doesn't want any immunizations. He doesn't smoke and does not need refills. He reports he is eating healthy stating he doesn't get hungry. He reports he tries to keep busy. His family reports he is more active since his surgery. He reports he hasn't checked his blood pressure at home in the last month. He states he can tell if it is running high. He has been out of his clonidine for a while. They are unable to estimate how long. He is taking medication as prescribed without problems. He states he doesn' (more content not included)... Normal [facility] ALBUMIN/CREATININE RATIO, UR INEon 01-23-2025 Albumin DL <= 20 mg/L (U) [Mass/Vol] 113.9 mg/L Normal [facility] Comment on above: Order Comment: Speci men Type: URINE SPECIMENOrdering Facility: [facility] Address: [address] [place] [address] Performed By: #### U ACR ####[facility] LABCLIA [id number] [place] [address] [place] Albumin/Creatinine (U) [Mass ratio] 72 mg/g High <30 [facility] Comment on above: Order Comment: Speci men Type: URINE SPECIMENOrdering Facility: [facility] Address: [address] [place] [address] Result Comment: Adul t Male and Female Nephrotic Criteria: <30 mg/g is considered normal to mildly increased 30-300 mg/g is considered moderately increased >300 mg/g is considered severely increased KDIGO. (2013). KDIGO 2012 Clinical Practice Guideline for the Evaluation and Management of Chronic Kidney Disease. Official Journal of the International Society of Nephrology, 3(1), 1-150. Performed By: #### U ACR ####[facility] LABIA [id number] [place] [address] [place] Creatinine (U) [Mass/Vol] 158.0 mg/dL Normal 20.0-300.0 [facility] Comment on above: Order Comment: Speci men Type: URINE SPECIMENOrdering Facility: [facility] Address: [address] [place] [address] Performed By: #### U ACR ####[facility] LABCLIA [id number] [place] [id number] [place] CBC W Auto Differential pane l (Bld)on 01-23-2025 Basophils (Bld) [#/Vol] 0.08 10*3/uL Normal <0.11 [facility] Comment on above: Order Comment: Speci men Type: BLOOD SPECIMENOrdering Facility: [facility] Address: [address] [place] [address] Performed By: #### 5 7021-8 ####[facility] MILLTOWNCLIA [id number] [place] [address] [place] Basophils/100 WBC (Bld) 0.8 % Normal [facility] Comment on above: Order Comment: Speci men Type: BLOOD SPECIMENOrdering Facility: [facility] Address: [address] [place] [address] Performed By: #### 5 7021-8 ####[facility]ENWNCL[facility] [id number] [place] [address] [place] Differential cell count method Nom (Bld) Auto Normal [facility] Comment on above: Order Comment: Speci men Type: BLOOD SPECIMENOrdering Facility: [facility] Address: [address] [place] [address] Performed By: #### 5 7021-8 ####[facility]ENWNCLIA [id number] [place] [address] [place] Eosinophils (Bld) [#/Vol] 0.43 10*3/uL Normal <0.46 [facility] Comment on above: Order Comment: Speci men Type: BLOOD SPECIMENOrdering Facility: [facility] Address: [address] [place] [address] Performed By: #### 5 7021-8 ####[facility] MILLTOWNCLIA [id number] [place] [address] [place] Eosinophils/100 WBC (Bld) 4.1 % Normal [facility] Comment on above: Order Comment: Speci men Type: BLOOD SPECIMENOrdering Facility: [facility] Address: [address] [place] [address] Performed By: #### 5 7021-8 ####[facility] [id number] [place] [address] [place] Erythrocyte distribution width (RBC) [Ratio] 13.2 % Normal 11.5-15.0 [facility] Comment on above: Order Comment: Speci men Type: BLOOD SPECIMENOrdering Facility: [facility] Address: [address] [place] [address] Performed By: #### 5 7021-8 ####[facility] [id number] [place] [address] [place] Hematocrit (Bld) [Volume fraction] 47.9 % Normal 39.0-51.0 [facility] Comment on above: Order Comment: Speci men Type: BLOOD SPECIMENOrdering Facility: [facility] Address: [address] [place] [address] Performed By: #### 5 7021-8 ####[facility] [id number] [place] [address] [place] Hemoglobin (Bld) [Mass/Vol] 16.0 g/dL Normal 13.0-17.0 [facility] Comment on above: Order Comment: Speci men Type: BLOOD SPECIMENOrdering Facility: [facility] Address: [address] [place] [address] Performed By: #### 5 7021-8 ####[facility] [id number] [place] [address] [place] Immature granulocytes (Bld) [#/Vol] 0.03 10*3/uL Normal <0.10 [facility] Comment on above: Order Comment: Speci men Type: BLOOD SPECIMENOrdering Facility: [facility] Address: [address] [place] [address] Performed By: #### 5 7021-8 ####[facility] [id number] [place] [address] [place] Immature granulocytes/100 WBC (Bld) 0.3 % Normal [facility] Comment on above: Order Comment: Speci men Type: BLOOD SPECIMENOrdering Facility: [facility] Address: [address] [place] [address] Performed By: #### 5 7021-8 ####[facility] [id number] [place] [address] [place] Lymphocytes (Bld) [#/Vol] 2.01 10*3/uL Normal 1.00-4.00 [facility] Comment on above: Order Comment: Speci men Type: BLOOD SPECIMENOrdering Facility: [facility] Address: [address] [place] [address] Performed By: #### 5 7021-8 ####[facility] [id number] [address] [place] Lymphocytes/100 WBC (Bld) 19.0 % Normal [facility] Comment on above: Order Comment: Speci men Type: BLOOD SPECIMENOrdering Facility: [facility] Address: [address] [place] [address] Performed By: #### 5 7021-8 ####[facility] [id number] [place] [address] [place] MCH (RBC) [Entitic mass] 30.1 pg Normal 26.0-34.0 [facility] Comment on above: Order Comment: Speci men Type: BLOOD SPECIMENOrdering Facility: [facility] Address: [address] [place] [address] Performed By: #### 5 7021-8 ####[facility] [id number] [place] [address] [place] MCHC (RBC) [Mass/Vol] 33.4 g/dL Normal 30.5-36.0 [facility] Comment on above: Order Comment: Speci men Type: BLOOD SPECIMENOrdering Facility: [facility] Address: [address] [place] [address] Performed By: #### 5 7021-8 ####[facility]EL[facility]ERN [id number] [place] [address] [place] MCV (RBC) [Entitic vol] 90.0 fL Normal 80.0-100.0 [facility] Comment on above: Order Comment: Speci men Type: BLOOD SPECIMENOrdering Facility: [facility] Address: [address] [place] [address] Performed By: #### 5 7021-8 ####[facility] [id number] [place] [address] [place] Monocytes (Bld) [#/Vol] 0.72 10*3/uL Normal <0.87 [facility] Comment on above: Order Comment: Speci men Type: BLOOD SPECIMENOrdering Facility: [facility] Address: [address] [place] [address] Performed By: #### 5 7021-8 ####[facility] [id number] [place] [address] [place] Monocytes/100 WBC (Bld) 6.8 % Normal [facility] Comment on above: Order Comment: Speci men Type: BLOOD SPECIMENOrdering Facility: [facility] Address: [address] [place] [address] Performed By: #### 5 7021-8 ####[facility] HOSPITALLIA [id number] [place] [address] [place] Neutrophils (Bld) [#/Vol] 7.33 10*3/uL Normal 1.45-7.50 [facility] Comment on above: Order Comment: Speci men Type: BLOOD SPECIMENOrdering Facility: [facility] Address: [address] [place] [address] Performed By: #### 5 7021-8 ####[facility] NATHALIEHUDSONMATIA [id number] [place] [address] [place] Neutrophils/100 WBC (Bld) 69.0 % Normal [facility] Comment on above: Order Comment: Speci men Type: BLOOD SPECIMENOrdering Facility: [facility] Address: [address] [place] [address] Performed By: #### 5 7021-8 ####[facility] [id number] [place] [address] [place] Nucleated RBC (Bld) [#/Vol] 10*3/uL Normal <0.01 [facility] Comment on above: Order Comment: Speci men Type: BLOOD SPECIMENOrdering Facility: [facility] Address: [address] [place] [address] Performed By: #### 5 7021-8 ####[facility] [id number] [place] [address] [place] Nucleated RBC/100 WBC (Bld) [Ratio] 0.0 /100 WBC Normal [facility] Comment on above: Order Comment: Speci men Type: BLOOD SPECIMENOrdering Facility: [facility] Address: [address] [place] [address] Performed By: #### 5 7021-8 ####[facility] [id number] [place] [address] [place] Platelet mean volume (Bld) [Entitic vol] 9.0 fL Normal 9.0-12.7 [facility] Comment on above: Order Comment: Speci men Type: BLOOD SPECIMENOrdering Facility: [facility] Address: [address] [place] [address] Performed By: #### 5 7021-8 ####[facility] RIDGENCLI [id number] [place] [address] [place] Platelets (Bld) [#/Vol] 300 10*3/uL Normal 150-400 [facility] Comment on above: Order Comment: Speci men Type: BLOOD SPECIMENOrdering Facility: [facility] Address: [facility] [place] [address] Performed By: #### 5 7021-8 ####[facility] RIDGENCLIA [id number] [place] [address] [place] RBC (Bld) [#/Vol] 5.32 10*6/uL Normal 4.20-6.00 [facility] Comment on above: Order Comment: Speci men Type: BLOOD SPECIMENOrdering Facility: [facility] Address: [address] [place] [address] Performed By: #### 5 7021-8 ####[facility] RIDGENCLIA [id number] [place] [address] [place] WBC (Bld) [#/Vol] 10.60 10*3/uL Normal 3.70-11.00 [facility] Comment on above: Order Comment: Speci men Type: BLOOD SPECIMENOrdering Facility: [facility] Address: [address] [place] [address] Performed By: #### 5 7021-8 ####[facility] RIDGENCLIA [id number] [place] [address] [place] CNOVon 01-23-2025 CNOV [facility] NICK SAN ([id number]) 1960 Date Time Provider Department 01/23/25 5:45 PM ALECIA ENAMORADO [facility] During your visit today, we recorded the following information about you: Temperature Pulse Respiration Blood pressure 98.3 degrees 99/minute 16/minute 132/82 Weight 92.2 kg Alecia Enamorado MD 01/23/2025 7:24 PM Signed [facility] Subjective Nick San is a 64 year old male. Patient [...] He states his daughter who lives in [place] is in charge of his medical care. [...] it is. Repeat for pencil. Max score=2 (more content not included)... Normal [facility] 01-23-2025 CNPN Telephone (NIQ) NICK SAN ([id number]) 1960 M Date Time Provider Department 01/23/25 MIRANDA DEL RIO During your visit today, we recorded the following information about you: Rosanna Still 01/23/2025 11:09 AM Signed Daughter is calling for a return call in regards to patient declining in health, and still driving. Please call Carmina at [phone] Nyla Fishman, JASON 01/23/2025 1:39 PM Signed This RN returning patient daughter's call. Left non-detailed VM on non-self Id machine. Provided office number to call back. DIANE Trejo, RN, BA Nyla Fishman RN 01/23/2025 2:05 PM Signed Carmina returning [...] refuses. She states that they live in [place] and it is hard to monitor his every move up here. [facility] Received 3 tickets for no seat belt, lapsed insurance, and speeding/driving recklessly. Unsure why [facility] did not take his license on the spot. Has ran out of gas in his car twice last week. Has been driving all over the [place] [place] and does not know why or [...] She also states that her father's is Singaporean and does not really speak lao. The patient also does not speak slovak. Carmina states that it was recommended to her to call adult cps as the patients is not able to adequately take care of him d/t the language barrier. Will pass message along to TW to determine next steps. DIANE Trejo, RN, BA Nyla Fishman RN 01/23/2025 3:26 PM Signed This RN called patient daughterCarmina, back and relayed that Dr. Del Rio [...] in an get that done tomorrow in [place]. She asked that we break the news [...] Upset HYDROCODONE 04/23/2023 8 - GI Upset T (more content not included)... Normal [facility] Comprehensive metabolic 2000 panelon 01-23-2025 Albumin [Mass/Vol] 4.7 g/dL Normal 3.9-4.9 [facility] Comment on above: Order Comment: Speci men Type: BLOOD SPECIMENOrdering Facility: [facility] Address: [address] [place], [place] [address] [id number] Performed By: #### 2 4323-8 ####[facility] LABCLIA [id number] [address] [address] [place] ALP [Catalytic activity/Vol] 99 U/L Normal 38-113 [facility] Comment on above: Order Comment: Speci men Type: BLOOD SPECIMENOrdering Facility: [facility] Address: [address] [place] [address] Performed By: #### 2 4323-8 ####[facility] LABCLIA [id number] [place] [id number] [place] ALT [Catalytic activity/Vol] U/L Low 10-54 [facility] Comment on above: Order Comment: Speci men Type: BLOOD SPECIMENOrdering Facility: [facility] Address: [address] [place] [address] Performed By: #### 2 4323-8 ####[facility] LABCLIA [id number] [place] [address] [place] Anion gap [Moles/Vol] 11 mmol/L Normal 8-15 [facility] Comment on above: Order Comment: Speci men Type: BLOOD SPECIMENOrdering Facility: [facility] Address: [address] [place] [address] Performed By: #### 2 4323-8 ####[facility] LABCLIA [id number] [place] [id number] [place] AST [Catalytic activity/Vol] 16 U/L Normal 14-40 [facility] Comment on above: Order Comment: Speci men Type: BLOOD SPECIMENOrdering Facility: [facility] Address: [address] [place], [place] [address] Performed By: #### 2 4323-8 ####[facility] LABCLIA [id number] [place] [id number] [place] Bilirubin [Mass/Vol] 0.5 mg/dL Normal 0.2-1.3 [facility] Comment on above: Order Comment: Speci men Type: BLOOD SPECIMENOrdering Facility: [facility] Address: [address] [place] [address] Performed By: #### 2 4323-8 ####[facility] LABCLIA [id number] [facility] [address] [place] [address] [place] Calcium [Mass/Vol] 9.8 mg/dL Normal 8.5-10.2 [facility] Comment on above: Order Comment: Speci men Type: BLOOD SPECIMENOrdering Facility: [facility] Address: [address] [place], [place] [address] Performed By: #### 2 4323-8 ####[facility] LABCLIA [id number] [facility] [address] [place] [address] [place] Chloride [Moles/Vol] 101 mmol/L Normal 98-107 [facility] Comment on above: Order Comment: Speci men Type: BLOOD SPECIMENOrdering Facility: [facility] Address: [address] [place], [place] [address] Performed By: #### 2 4323-8 ####[facility] LABCLIA [id number] [facility] [address] [place] [address] [place] CO2 [Moles/Vol] 26 mmol/L Normal 22-30 [facility] Comment on above: Order Comment: Speci men Type: BLOOD SPECIMENOrdering Facility: [facility] Address: [address] [address] [place], [place] [address] Performed By: #### 2 4323-8 ####[facility] LABCLIA [id number] [facility] [address] [place] [address] [place] Creatinine [Mass/Vol] 1.31 mg/dL High 0.73-1.22 [facility] Comment on above: Order Comment: Speci men Type: BLOOD SPECIMENOrdering Facility: [facility] Address: [address] [place] [address] Performed By: #### 2 4323-8 ####[facility] LABCLIA [id number] [facility] [place] [address] [place] Creatinine and Glomerular filtration rate.predicted panel (S/P/Bld) 60 mL/min/1.73m??? Normal >=60 [facility] Comment on above: Order Comment: Kassie mitchell Type: BLOOD SPECIMENOrdering Facility: [facility] Address: [address] [place] [address] Result Comment: Edie mated Glomerular Filtration Rate (eGFR) is calculated using the 2020 CKD-EPI creatinine equation. This equation utilizes serum creatinine, sex, and age as parameters. The creatinine assay has traceable calibration to isotope dilution-mass spectrometry. Refer to KDIGO guidelines for clinical interpretation. In patients with unstable renal function, e.g. those with acute kidney injury, the eGFR may not accurately reflect actual GFR. Performed By: #### 2 4323-8 ####[facility] LABCLIA [id number] [place] [address] [place] Glucose [Mass/Vol] 121 mg/dL High 74-99 [facility] Comment on above: Order Comment: Kassie mitchell Type: BLOOD SPECIMENOrdering Facility: [facility] Address: [address] [place] [address] Result Comment: The Indian Diabetes Association (ADA) [...] Indian Diabetes Association. Diabetes Care. 2016.39(Suppl 1). Performed By: #### 2 4323-8 ####[facility] LABCLIA [id number] [place] [id number] [place] Potassium [Moles/Vol] 4.3 mmol/L Normal 3.7-5.1 [facility] Comment on above: Order Comment: Speci men Type: BLOOD SPECIMENOrdering Facility: [facility] Address: [address] [place] [address] Performed By: #### 2 4323-8 ####[facility] LABCLIA [id number] [address] [address] [place] Protein [Mass/Vol] 7.4 g/dL Normal 6.3-8.0 [facility] Comment on above: Order Comment: Speci men Type: BLOOD SPECIMENOrdering Facility: [facility] Address: [address] [place] [address] Performed By: #### 2 4323-8 ####[facility] LABCLIA [id number] [address] [address] [place] Sodium [Moles/Vol] 138 mmol/L Normal 136-144 [facility] Comment on above: Order Comment: Speci men Type: BLOOD SPECIMENOrdering Facility: [facility] Address: [address] [place] [address] Performed By: #### 2 4323-8 ####[facility] LABCLIA [id number] [address] [address] [place] Urea nitrogen [Mass/Vol] 25 mg/dL High 9-24 [facility] Comment on above: Order Comment: Speci men Type: BLOOD SPECIMENOrdering Facility: [facility] Address: [address] [place] [address] Performed By: #### 2 4323-8 ####[facility] LABCLIA [id number] [address] [address] [place] GLUCOSE, BLOOD (POC)on 01-23 Glucose [Mass/Vol] 122 mg/dL Abnormal 74 - 99 mg/dL [facility] Comment on above: Location:[address], [facility] The Accu-Chek Inform II glucose meter has not been approved for testing on patients receiving intensive medical intervention or therapy and results from this point of care glucose test should not be used for patient management decisions in these cases. Inaccurate results may also occur from other interfering factors, such as N-acetylcysteine (blood concentrations of greater than 5mg/dL), galactose, extremes of hematocrit (<10 or >65), or high doses of ascorbic acid (vitamin C) greater than 3mg/dL. Consider alternate testing mechanisms (e.g. core lab, blood gas instrument) in the above situations. Interpretation and review of laboratory results Abnormal [facility] HbA1c (Bld)on 01-23-2025 Average glucose Estimated from glycated hemoglobin (Bld) [Mass/Vol] 137 mg/dL Normal [facility] Comment on above: Order Comment: Speci men Type: BLOOD SPECIMENOrdering Facility: [facility] Address: [address] [place] [address] Result Comment: eAG: (Estimated average glucose) is a calculated value from HgbA1c and is installation service representative of the average blood glucose level in the last 2-3 month period. Performed By: #### 5 5454-3 ####[facility] LABCLIA [id number] [place] [address] [place] HbA1c (Bld) [Mass fraction] 6.4 % High 4.3-5.6 [facility] Comment on above: Order Comment: Speci men Type: BLOOD SPECIMENOrdering Facility: [facility] Address: [address] [place] [address] Result Comment: Amer ican Diabetes Association guidelines indicate that patients with HgbA1c in the range 5.7-6.4% are at increased risk for development of diabetes, and intervention by lifestyle modification may be beneficial. HgbA1c greater or equal to 6.5% is considered diagnostic of diabetes. Performed By: #### 5 5454-3 ####[facility] LABCLIA [id number] [place] [id number] [place] PSA SerPl-mCncon 01-23-2025 Prostate specific Ag [Mass/Vol] 0.52 ng/mL Normal <2.60 [facility] Comment on above: Order Comment: Speci men Type: BLOOD SPECIMENOrdering Facility: [facility] Address: [address] [facility] [place] [address] Result Comment: Tota l PSA test methodology used is the Electrochemiluminescence Immunoassay by [employer]. Total PSA values by differing methodologies cannot be interchanged. Performed By: #### 2 857-1 ####[facility] LABCLIA [id number] [facility] [id number] [place] [address] [place] UA DIP, URINE (POC)on 2024 BILIRUBIN UA (POCT) Negative Negative [facility] CLARITY UA (POCT) Clear [facility] COLOR UA (POCT) Yellow [facility] GLUCOSE UA (POCT) 500 mg/dL Abnormal Negative [facility] Hemoglobin Ql (U) Negative Negative [facility] Interpretation and review of laboratory results Abnormal [facility] KETONE UA (POCT) Trace Negative mg/dL [facility] LEUKOCYTES UA (POCT) Negative Negative [facility] NITRITE UA (POCT) Negative Negative [facility] PH UA (POCT) 6 4.5 - 8.0 [facility] Protein Ql (U) 30 mg/dL Abnormal Negative [facility] SPECIFIC GRAVITY UA (POCT) 1.025 1.005 - 1.030 [facility] UROBILINOGEN UA (POCT) 0.2 Karina l E.U./dL [facility] Location:[address], [place], [place], [id number] [place] [address] POINT OF CARE [facility] CNOVon 10-20-2024 CNOV Office Visit (PODIWS ) NICK SAN ([id number]) 1960 M Date Time Provider Department 10/20/24 3:45 PM KATE BELCHER During your visit today, we recorded the following information about you: Dayna Adorno LPN 10/21/2024 7:59 AM Signed AMB ROOMING INTAKE FLOWSHEET DATA Pain Pain Level: 2 Pain Location: Other: See Comment (bilateral feet) Description: Itching Patient presents with: Left Foot - New, Itching, Diabetic Foot Care Right Foot - New, Itching, Diabetic Foot Care Patient states feet are always cold. A1C 2 months ago was 5.6 Dayna Adorno LPN Kate Belcher 10/21/2024 7:59 AM Signed Consultation requested by [...] in stools or black stools and change i (more content not included)... Normal [facility] NICK SAN ([id number]) 1960 M Date Time Provider Department 10/20/24 AGA BENITEZ [facility] During your visit today, we recorded the following information about you: Hilary Suárez MA 10/20/2024 2:21 PM Signed Orders are in office waiting for signature. [id number] Avani Landa MA 10/21/2024 3:51 PM Signed Faxed and scanned into chart. CHOCO Alexander Mariah, MA 10/27/2024 1:29 PM Signed Order # [id number] received and placed in providers inbox. CHOCO Alexander Alexandra, MA 10/28/2024 9:05 AM Signed Faxed back. Sent to scanning. Ana Rosa Law MA October 28, 2024 9:05 AM Allergies As of Date: 10/20/2024 Noted Allergy Reaction ACETAMINOPHEN 04/23/2023 8 - GI Upset HYDROCODONE 04/23/2023 8 - GI Upset TRAMADOL 04/23/2023 8 - GI Upset VICODIN (HYDROCODONE-ACETAMINOPHE*0 12/08/2023 8 - GI Upset Date Reviewed: 10/20/2024 Reviewed by: Dayna Adorno LPN - Fully Assessed Reason for Visit: Orders [681] Cmt: [facility] order received Prescriptions as of 10/28/2024 - [...] [I95.9] 07/06/2024 07/13/2024 Encounter Status:Closed by AVANI LANDA on 10/21/24 [facility] Mindy 10-13-2024 CNPN Telephone ([place]) NICK SAN ([id number]) 1960 M Date Time Provider Department 10/13/24 AGA BENITEZ [facility] During your visit today, we recorded the following information about you: Hilary Suárez MA 10/13/2024 2:38 PM Signed Orders are in office waiting for signature. Aga Benitez MD 10/13/2024 4:42 PM Signed Signed and in outbox. MD Thanh Jean Alexandra, MA 10/14/2024 11:13 AM Signed Faxed back. Sent to scanning. Ana Rosa Law MA October 14, 2024 11:13 AM Allergies As of Date: 10/13/2024 Noted Allergy Reaction ACETAMINOPHEN 04/23/2023 8 - GI Upset HYDROCODONE 04/23/2023 8 - GI Upset TRAMADOL 04/23/2023 8 - GI Upset VICODIN (HYDROCODONE-ACETAMINOPHE*0 12/08/2023 8 - GI Upset Date Reviewed: 10/11/2024 Reviewed by: Luna Hannon OD - Fully Assessed Reason for Visit: Orders [681] Cmt: [facility] order received Prescriptions as of 10/14/2024 - [...] Status:Closed by ANA ROSA LAW on 10/14/24 Normal [facility] OCT MACULA CIRRUS OU (BOTH E YES)on 10-11-2024 [facility] Radiology Study observation (narrative) [facility] CNCOdin 10-03-2024 CNCO Letter Text Normal [facility] CNPLissy 09-19-2024 CNPN Telephone ([place]) NICK SAN ([id number]) 1960 M Date Time Provider Department 09/19/24 AGA BENITEZ [facility] During your visit today, we recorded the following information about you: Hilary Suárez MA 09/19/2024 9:59 AM Signed Orders are in office waiting for signature. [id number] Aga Benitez MD 09/19/2024 6:41 PM Signed Signed, in outbox. Aga Benitez MD Allergies As of Date: 09/19/2024 Noted Allergy Reaction ACETAMINOPHEN 04/23/2023 8 - GI Upset HYDROCODONE 04/23/2023 8 - GI Upset TRAMADOL 04/23/2023 8 - GI Upset VICODIN (HYDROCODONE-ACETAMINOPHE*0 12/08/2023 8 - GI Upset Date Reviewed: 08/08/2024 Reviewed by: Tracey Paul MA - Fully Assessed Reason for Visit: Orders [681] Cmt: [facility] order received ( Multiple orders ) Prescriptions [...] Encounter Status:Closed by AGA BENITEZ on 09/19/24 [facility] Mindy 08-26-2024 CNPN Telephone (4CQ) NICK SAN ([id number]) 1960 Date Time Provider Department 08/26/24 AGA BENITEZ 4CQ During your visit today, we recorded the following information about you: Abilio Stoll 08/26/2024 1:04 PM Signed Lizandro is calling Aga Bentiez MD today with concern regarding Patient Update> [...] name and birthdate. Person calling: Lizandro From [facility] [phone] Call patient at: on cell [phone] (home) [phone] (cell) Was an appointment scheduled: No Closing statement: Results or non-symptom based questions: Thank you for calling [facility], your call will be returned within the next business day. Aga Judd MD 08/29/2024 5:52 PM Written Received message from [facility] nurse noting that patient is not taking [...] TRAMADOL 04/23/2023 8 - GI Upset VICODIN (HYDROCODONE-ACETAMINOPHE*0 12/08/2023 8 - GI Upset Date Reviewed: 08/08/2024 [...] Encounter Status:Closed by AGA BENITEZ on 08/29/24 [facility] 08-19-2024 [facility] NICK SAN ([id number]) 1960 M Date Time Provider Department 08/19/24 AGA BENITEZ 4CQ During your visit today, we recorded the following information about you: Sara Mohr 08/19/2024 4:27 PM Signed Berkley with [facility] [phone] is calling Aga Benitez MD today to [...] [place] Dalton Belinda 09/09/2024 8:11 AM Signed [facility] calling to inform they are discharging patient from nursing. Will continue with PT only. Also, patient does not have his amlodipine at the house. If he is still to be taking this, please send an order to [facility]. Per the nurse, Lizandro, patient's bp's have been fine and he may not even need this. Lizandro can be reached at [phone] secure line. Aga Benitez MD 09/13/2024 10:47 AM Signed BP has been stable on current medication. Date of non adherence to Amlodipine is unclear. I would like assess his BP (this can be reported through a series of readings at home) or through a nurse visit, to adjust the meds as needed. Aga Benitez MD Grazyna Vail 09/15/2024 12:13 PM Signed [facility] calling to ask if PCP would sign for continued PT. They will be faxing over the orders. Please call with a VO at [phone]. Thanks. Aga Benitez MD 09/16/2024 3:20 PM Signed Yes, will continue to sign tor continued PT. Aga Benitez MD Allergies As of Date: 08/19/2024 Noted Allergy Reaction ACETAMINOPHEN 04/23/2023 8 - GI Upset HYDROCODONE 04/23/2023 8 - GI Upset TRAMADOL 04/23/2023 8 - GI Upset VICODIN (HYDROCODONE-ACETAMINOPHE*0 12/08/2023 8 - GI Upset Date Reviewed: 08/08/2024 [...] kidney injury) (HCC) [N17.9] 07/06/2024 07/13/2024 Hypotension [I9 (more content not included)... Normal [facility] Basic metabolic 2000 panelon 08-08-2024 Anion gap [Moles/Vol] 16 mmol/L High 8-15 [facility] Comment on above: Order Comment: Speci men Type: BLOOD SPECIMENOrdering Facility: [facility] Address: [address] [place] [address] Performed By: #### 2 4321-2, 77347-1, 2276-4, 23708-6 ####[facility] LABCLIA [id number] [place] [address] [place] Calcium [Mass/Vol] 10.4 mg/dL High 8.5-10.2 [facility] Comment on above: Order Comment: Speci men Type: BLOOD SPECIMENOrdering Facility: [facility] Address: [address] [place] [address] Performed By: #### 2 4321-2, 91010-1, 2276-4, 47621-9 ####[facility] LABIA [id number] [place] [id number] [place] Chloride [Moles/Vol] 98 mmol/L Normal 98-107 [facility] Comment on above: Order Comment: Speci men Type: BLOOD SPECIMENOrdering Facility: [facility] Address: [address] [place], [place] [address] Performed By: #### 2 4321-2, 99822-9, 2276-4, 68992-9 ####[facility] LABCLIA [id number] [place] [id number] [place] CO2 [Moles/Vol] 23 mmol/L Normal 22-30 [facility] Comment on above: Order Comment: Speci men Type: BLOOD SPECIMENOrdering Facility: [facility] Address: [address] [place] [address] Performed By: #### 2 4321-2, 54115-5, 6-4, 90936-7 ####[facility] LABIA [id number] [place] [id number] [place] Creatinine [Mass/Vol] 1.76 mg/dL High 0.73-1.22 [facility] Comment on above: Order Comment: Speci men Type: BLOOD SPECIMENOrdering Facility: [facility] Address: [address] [place] [address] Performed By: #### 2 4321-2, 09129-3, 2275-4, 74882-5 ####[facility] [id number] [place] [address] [place] Creatinine and Glomerular filtration rate.predicted panel (S/P/Bld) 42 mL/min/1.73m??? Low >=60 [facility] Comment on above: Order Comment: Doriani men Type: BLOOD SPECIMENOrdering Facility: [facility] Address: [address] [place] [address] Result Comment: Edie mated Glomerular Filtration Rate (eGFR) is calculated using the 2020 CKD-EPI creatinine equation. This equation utilizes serum creatinine, sex, and age as parameters. The creatinine assay has traceable calibration to isotope dilution-mass spectrometry. Refer to KDIGO guidelines for clinical interpretation. In patients with unstable renal function, e.g. those with acute kidney injury, the eGFR may not accurately reflect actual GFR. Performed By: #### 2 4321-2, 09055-2, 2275-4, 56626-9 ####[facility] LABIA [id number] [address] [address] [place] Glucose [Mass/Vol] 126 mg/dL High 74-99 [facility] Comment on above: Order Comment: Speci men Type: BLOOD SPECIMENOrdering Facility: [facility] Address: [address] [place] [address] Result Comment: The Indian Diabetes Association (ADA) [...] Indian Diabetes Association. Diabetes Care. 2016.39(Suppl 1). Performed By: #### 2 4321-2, 27837-0, 2276-4, 04249-9 ####[facility] LABCLIA [id number] [place] [address] [place] Potassium [Moles/Vol] 5.0 mmol/L Normal 3.7-5.1 [facility] Comment on above: Order Comment: Speci men Type: BLOOD SPECIMENOrdering Facility: [facility] Address: [address] [place] [address] Performed By: #### 2 4321-2, 86874-5, 2276-4, 22936-9 ####[facility] LABIA [id number] [place] [address] [place] Sodium [Moles/Vol] 137 mmol/L Normal 136-144 [facility] Comment on above: Order Comment: Speci men Type: BLOOD SPECIMENOrdering Facility: [facility] Address: [address] [place] [address] Performed By: #### 2 4321-2, 40779-5, 2276-4, 42758-7 ####[facility] LABIA [id number] [place] [id number] [place] Urea nitrogen [Mass/Vol] 20 mg/dL Normal 9-24 [facility] Comment on above: Order Comment: Speci men Type: BLOOD SPECIMENOrdering Facility: [facility] Address: [address] [place] [address] Performed By: #### 2 4321-2, 56101-5, 2276-4, 70019-2 ####[facility] LABANNA [id number] [facility] [id number] [address] [place] CNOVon 08-08-2024 CNOV Office Visit ([facility] ) NICK SAN ([id number]) 1960 M Date Time Provider Department 08/08/24 3:30 PM MIRANDA DEL RIO [facility] During your visit today, we recorded the following information about you: Pulse Blood pressure Weight 101/minute 114/77 90 kg Miranda Del Rio MD 08/08/2024 4:03 PM Signed FOLLOW UP NOTE Subjective Nick San is a 64 year old male who [...] off primidone. I double checked with his college professor who did not feel propranolol currently needed [...] fine touch and vibration. Reflex: Biceps and brachior (more content not included)... Normal [facility] CNOV [facility] NICK SAN ([id number]) 1960 M Date Time Provider Department 08/08/24 10:30 AM AGA BENITEZ During your visit today, we recorded the following information about you: Pulse Respiration Blood pressure Weight 98/minute 16/minute 135/77 107 kg Height 1.791 m Aga Benitez MD 08/08/2024 11:28 AM Signed This note was created using NoteWriter. Subjective Nick San is a 64 year old male. Here [...] his daughter and son-in-law who live in [place]. Review of Systems All other systems reviewed [...] TRAMADOL 04/23/2023 8 - GI Upset VICODIN (HYDROCODONE-ACETAMINOPHE*0 12/08/2023 8 - GI Upset Date Reviewed: 08/08/2024 [...] [Z13.5] Order(s):CONSULT TO UROLOGY [9041] Order #: [id number]: 1 FUTURE COMPREHENSIVE METABOLIC PANEL [SQCMP] Order #: [id number] FUTURE HEMOGLOBIN A1 (more content not included)... Normal [facility] Mindy 08-08-2024 TYRELN Telephone (4CQ) NICK SAN ([id number]) 1960 M Date Time Provider Department 08/08/24 AGA BENITEZ 4CQ During your visit today, we recorded the following information about you: Marcell Noguera 08/08/2024 8:55 AM Signed Lizandro RN with [facility]. Pt temp is 99. Pt just finished antibiotic. Urine still looks good. Pt increased fluids. Pt has appt today. Any questions [phone] Patient has been identified by name and birthdate. Duration of symptoms: N/A Was an appointment scheduled: No Closing statement: Results or non-symptom based questions: Thank you for calling [facility], your call will be returned within the next business day. Aga Armstrong MD 08/08/2024 1:46 PM Signed Noted. Patient was well during visit today. Thank you, Aga Benitez MD Allergies As of Date: 08/08/2024 Noted Allergy Reaction ACETAMINOPHEN 04/23/2023 8 - GI Upset HYDROCODONE 04/23/2023 8 - GI Upset TRAMADOL 04/23/2023 8 - GI Upset VICODIN (HYDROCODONE-ACETAMINOPHE*0 12/08/2023 8 - GI Upset Date Reviewed: 08/08/2024 [...] Encounter Status:Closed by AGA BENITEZ on 08/08/24 Normal [facility] Ferritin SerPl-mCncon 2023 Ferritin [Mass/Vol] 333.0 ng/mL Normal 30.3-565.7 [facility] Comment on above: Order Comment: Speci men Type: BLOOD SPECIMENOrdering Facility: [facility] Address: [address] [place] [address] Performed By: #### 2 4321-2, 52917-0, 2276-4, 14164-4 ####[facility] LABCLIA [id number] [place] [address] [place] HbA1c (Bld)on 08-08-2024 Average glucose Estimated from glycated hemoglobin (Bld) [Mass/Vol] 114 mg/dL Normal [facility] Comment on above: Order Comment: Speci men Type: BLOOD SPECIMENOrdering Facility: [facility] Address: [address] [place] [address] Result Comment: eAG: (Estimated average glucose) is a calculated value from HgbA1c and is installation service representative of the average blood glucose level in the last 2-3 month period. Performed By: #### 5 5454-3 ####[facility] LABCLIA [id number] [place] [id number] [place] HbA1c (Bld) [Mass fraction] 5.6 % Normal 4.3-5.6 [facility] Comment on above: Order Comment: Speci men Type: BLOOD SPECIMENOrdering Facility: [facility] Address: [address] [place] [address] Result Comment: Amer ican Diabetes Association guidelines indicate that patients with HgbA1c in the range 5.7-6.4% are at increased risk for development of diabetes, and intervention by lifestyle modification may be beneficial. HgbA1c greater or equal to 6.5% is considered diagnostic of diabetes. Performed By: #### 5 5454-3 ####[facility] LABCLIA [id number] [place] [id number] [place] Iron and Iron binding capaci ty panelon 08-08-2024 Iron [Mass/Vol] 47 ug/dL Normal 41-186 [facility] Comment on above: Order Comment: Speci men Type: BLOOD SPECIMENOrdering Facility: [facility] Address: [address] [place] [address] Performed By: #### 2 4321-2, 82909-4, 2276-4, 34139-4 ####[facility] LABIA [id number] [place] [id number] [place] Iron binding capacity [Mass/Vol] 289 ug/dL Normal 232-386 [facility] Comment on above: Order Comment: Speci men Type: BLOOD SPECIMENOrdering Facility: [facility] Address: [address] [place] [address] Performed By: #### 2 4321-2, 25004-8, 2276-4, 62065-9 ####[facility] LABCLIA [id number] [address] [address] [place] Iron/TIBC [Molar ratio] 16.3 % Normal 15.0-57.0 [facility] Comment on above: Order Comment: Speci men Type: BLOOD SPECIMENOrdering Facility: [facility] Address: [address] [place] [address] Performed By: #### 2 4321-2, 09835-9, 2275-4, 75487-5 ####[facility] LABCLIA [id number] [address] [address] [place] Lipid 1996 panelon 4 Cholesterol [Mass/Vol] 120 mg/dL Normal <200 [facility] Comment on above: Order Comment: Speci men Type: BLOOD SPECIMENOrdering Facility: [facility] Address: [address] [place] [address] Result Comment: <200 mg/dL, Desirable 200-239 mg/dL, Borderline high >239 mg/dL, High Performed By: #### 2 4321-2, 54922-8, 2275-, 71434-8 ####[facility] LABCLIA [id number] [place] [address] [place] Cholesterol in HDL [Mass/Vol] 50 mg/dL Normal >39 [facility] Comment on above: Order Comment: Speci men Type: BLOOD SPECIMENOrdering Facility: [facility] Address: [address] [place] [address] Result Comment: 40-5 9 mg/dL, Acceptable >59 mg/dL, High: Negative risk factor for coronary heart disease <40 mg/dL, Low: Positive risk factor for coronary heart disease Performed By: #### 2 4321-2, 19513-7, 2275-, 47768-5 ####[facility] LABCLIA [id number] [place] [id number] [place] Cholesterol in LDL [Mass/Vol] 43 mg/dL Normal <100 [facility] Comment on above: Order Comment: Speci men Type: BLOOD SPECIMENOrdering Facility: [facility] Address: [address] [place] [address] Result Comment: <100 mg/dL, Optimal 100-129 mg/dL, Near optimal/above optimal 130-159 mg/dL, Borderline high 160-189 mg/dL, High >189 mg/dL, Very high Secondary prevention optimal LDL Cholesterol levels are recommended to be < 70 mg/dL Performed By: #### 2 4321-2, 97760-6, 6-4, 37464-9 ####[facility] LABCLIA [id number] [address] [address] [place] Cholesterol in LDL/Cholesterol in HDL [Mass ratio] 0.86 {ratio} Normal <2.54 [facility] Comment on above: Order Comment: Speci men Type: BLOOD SPECIMENOrdering Facility: [facility] Address: [address] [place] [address] Result Comment: Rishabh chaidez: 1. National Cholesterol Education Program ATP III Guideline At-A-Glance Quick Desk Reference: National Heart, Lung, and Blood [place]. National Institutes of Health. 2001: NIH Publication No. 01-3305. 2. An International Atherosclerosis Society position paper: global recommendations for the management of dyslipidemia: executive summary, Atherosclerosis. 2014: 232(2):410-413. Performed By: #### 2 4321-2, 81928-2, 2275-4, 80563-4 ####[facility] LABCLIA [id number] [place] [address] [place] Cholesterol in VLDL [Mass/Vol] 27 mg/dL Normal <30 [facility] Comment on above: Order Comment: Speci men Type: BLOOD SPECIMENOrdering Facility: [facility] Address: [address] [place] [address] Performed By: #### 2 4321-2, 18219-9, 6-4, 16844-5 ####[facility] LABCLIA [id number] [address] [address] [place] Cholesterol non HDL [Mass/Vol] 70 mg/dL Normal <130 [facility] Comment on above: Order Comment: Speci men Type: BLOOD SPECIMENOrdering Facility: [facility] Address: [address] [place] [address] Result Comment: <130 mg/dL, Optimal 130-159 mg/dL, Near optimal/above optimal 160-189 mg/dL, Borderline high 190-219 mg/dL, High >219 mg/dL, Very high Secondary prevention optimal non HDL Cholesterol levels are recommended to be <100 mg/dL Performed By: #### 2 4321-2, 98510-5, 2275-4, 83392-3 ####[facility] LABCLIA [id number] [place] [address] [place] Cholesterol.total/Chol esterol in HDL [Mass ratio] 2.40 {ratio} Normal <5.10 [facility] Comment on above: Order Comment: Speci men Type: BLOOD SPECIMENOrdering Facility: [facility] Address: [address] [place] [address] Performed By: #### 2 4321-2, 94376-0, 2275-4, 81920-3 ####[facility] LABCLIA [id number] [place] [address] [place] FASTING TIME 12 hrs Normal [facility] Comment on above: Order Comment: Speci men Type: BLOOD SPECIMENOrdering Facility: [facility] Address: [address] [place] [address] Performed By: #### 2 4321-2, 96439-2, 2275-4, 74036-6 ####[facility] LABCLIA [id number] [place] [address] [place] Triglyceride [Mass/Vol] 134 mg/dL Normal <150 [facility] Comment on above: Order Comment: Speci men Type: BLOOD SPECIMENOrdering Facility: [facility] Address: [address] [place] [address] Result Comment: <150 mg/dL, Normal 150-199 mg/dL, Borderline high 200-499 mg/dL, High >499 mg/dL, Very high Performed By: #### 2 4321-2, 23335-2, 2275-4, 95838-7 ####[facility] LABCLIA [id number] [facility] [id number] [place] [address] [place] 36on 08-02-2024 36 I called pt to sched carey new urology appointment. Patient's daughter Carmina answered the call and verbalized he has a urologist and she will schedule a visit with that provider. Closing encounter Normal [facility] CBC W/Diff, Automatedon - Absolute Lymph 1.64 X10 3/uL Normal 0.83-4.51 [facility] Comment on above: Performed By: #### L 500.2500 #### [facility] [address] [place], [address] Absolute Neut 6.7 X10 3/uL Normal 2.0-7.7 [facility] Comment on above: Performed By: #### L 500.2500 #### [facility] [address] [place], [address] Basophils/100 WBC (Bld) 0.7 % Normal 0-1 [facility] Comment on above: Performed By: #### L 500.2500 #### [facility] [address] [place], [address] Eosinophils/100 WBC (Bld) 0.0 % Normal 0-5 [facility] Comment on above: Performed By: #### L 500.2500 #### [facility] [address] [place], [address] Erythrocyte distribution width (RBC) [Ratio] 13.0 % Normal 11.6-14.6 [facility] Comment on above: Performed By: #### L 500.2500 #### [facility] [address] [place], [address] Hematocrit (Bld) [Volume fraction] 35.9 % Low 40-54 [facility] Comment on above: Performed By: #### L 500.2500 #### [facility] [address] [place], [address] Hemoglobin (Bld) [Mass/Vol] 12.0 g/dL Low 13.0-16.5 [facility] Comment on above: Performed By: #### L 500.2500 #### [facility] [address] [place], [address] IG% 0.500 Normal 0.0-0.9 [facility] Comment on above: Result Comment: IG% - Immature Granulocytes (promyelocytes, myelocytes and metamyelocytes) > 1% indicates that a LEFT SHIFT is Present. Performed By: #### L 500.2500 #### [facility] [address] [place], [address] Lymphocytes/100 WBC (Bld) 18.0 % Low 19-41 [facility] Comment on above: Performed By: #### L 500.2500 #### [facility] [address] [place], [address] MCH (RBC) [Entitic mass] 30.0 pg Normal 27.0-32.0 [facility] Comment on above: Performed By: #### L 500.2500 #### [facility] [address] [place], [address] MCHC (RBC) [Mass/Vol] 33.4 g/dL Normal 32-36 [facility] Comment on above: Performed By: #### L 500.2500 #### [facility] [address] [place], [address] MCV (RBC) [Entitic vol] 89.8 fL Normal 80-94 [facility] Comment on above: Performed By: #### L 500.2500 #### [facility] [address] [place], [address] Monocytes/100 WBC (Bld) 7.5 % Normal 0-10 [facility] Comment on above: Performed By: #### L 500.2500 #### [facility] [address] [place], [address] Neutrophils/100 WBC (Bld) 73.3 % High 47-70 [facility] Comment on above: Performed By: #### L 500.2500 #### [facility] [address] [place], [address] Nucleated RBC (Bld) [#/Vol] 0 10*3/uL Normal 0-5 [facility] Comment on above: Performed By: #### L 500.2500 #### [facility] [address] [place], [address] Platelet mean volume (Bld) [Entitic vol] 8.8 fL Normal 6.2-12.0 [facility] Comment on above: Performed By: #### L 500.2500 #### [facility] [address] [place], [address] Platelets (Bld) [#/Vol] 400 10*3/uL Normal 150-450 [facility] Comment on above: Performed By: #### L 500.2500 #### [facility] [address] [place], [address] RBC (Bld) [#/Vol] 4.00 10*6/uL Low 4.6-6.2 [facility] Comment on above: Performed By: #### L 500.2500 #### [facility] [address] [place], [address] RDW SD 42.7 fl Normal 35.1-43.9 [facility] Comment on above: Performed By: #### L 500.2500 #### [facility] [address] [place], [address] WBC (Bld) [#/Vol] 9.1 10*3/uL Normal 4.4-11.0 [facility] Comment on above: Performed By: #### L 500.2500 #### [facility] [address] [place], [place], [address] Chest 1 View (Portable)on Chest 1 View (Portable) [facility] [address] [place] [address] Chest 1 View (Portable) MR#: [id number] Acct: [id number] Name: NICK SAN Rep #: [id number] : 1960 M 64 From: Daniel Dale MD PCP: NOT,DEFINED Status: REG ER Study: Chest 1 View (Portable) Date of Exam: 08/01/24 Exam# [id number] Ordering Dr: Kai Oswald MD [id number] STUDY: X-RAY CHEST REASON FOR EXAM: Male, 64 years old. fatigue, vomiting TECHNIQUE: AP portable COMPARISON: None. FINDINGS: There is less than optimal inspiratory effort however the lungs are clear. There is no demonstrated pleural abnormality. Borderline cardiomegaly exaggerated by radiographic technique. Normal mediastinum and kiera. Normal visualized pulmonary arteries. Mildly calcified aortic arch and descending thoracic aorta. Normal visualized thoracic spine. Normal visualized ribs, clavicles, and shoulders. There is no demonstrated abnormality of the visualized soft tissue structures of the upper abdomen. RAD/Chest 1 View (Portable) IMPRESSION: No acute cardiopulmonary pathology Electronically Signed: Daniel Dale MD at 17:01 EDT , CC: DEFINED NOT; Dr. Kai Oswald MD Corporate Intern: Signed Normal [facility] Comprehensive Metabolic Prof ilon 08-01-2024 Albumin [Mass/Vol] 3.8 g/dL Normal 3.2-5.0 [facility] Comment on above: Order Comment: 'TROP ' Serial specimen #1, #2 or #3: 1 Performed By: #### L 500.2500 #### [facility] [address] [place], [address] Albumin/Globulin [Mass ratio] 1.1 {ratio} Normal 0.9-2.4 [facility] Comment on above: Order Comment: 'TROP ' Serial specimen #1, #2 or #3: 1 Performed By: #### L 500.2500 #### [facility] [address] [place], [address] ALK P 86 U/L Normal 45-117 [facility] Comment on above: Order Comment: 'TROP ' Serial specimen #1, #2 or #3: 1 Performed By: #### L 500.2500 #### [facility] [address] [place], [address] ALT [Catalytic activity/Vol] 8 U/L Low 16-61 [facility] Comment on above: Order Comment: 'TROP ' Serial specimen #1, #2 or #3: 1 Performed By: #### L 500.2500 #### [facility] [address] [place], [address] AST [Catalytic activity/Vol] 19 U/L Normal 15-37 [facility] Comment on above: Order Comment: 'TROP ' Serial specimen #1, #2 or #3: 1 Performed By: #### L 500.2500 #### [facility] [address] [place], [address] Bilirubin [Mass/Vol] 0.60 mg/dL Normal 0.20-1.00 [facility] Comment on above: Order Comment: 'TROP ' Serial specimen #1, #2 or #3: 1 Result Comment: For patients on eltrombopag therapy, use of Dimension [place] TBIL is not recommended. Performed By: #### L 500.2500 #### [facility] [address] [place], [address] BUN/CRE 10.2 RATIO Normal 10-20 [facility] Comment on above: Order Comment: 'TROP ' Serial specimen #1, #2 or #3: 1 Performed By: #### L 500.2500 #### [facility] [address] [place], [address] CA,Total 9.9 mg/dL Normal 8.5-10.1 [facility] Comment on above: Order Comment: 'TROP ' Serial specimen #1, #2 or #3: 1 Performed By: #### L 500.2500 #### [facility] [address] [place], [address] Chloride [Moles/Vol] 106 mmol/L Normal 98-107 [facility] Comment on above: Order Comment: 'TROP ' Serial specimen #1, #2 or #3: 1 Performed By: #### L 500.2500 #### [facility] [address] [place], [address] CO2 [Moles/Vol] 23.0 mmol/L Normal 21.0-32.0 [facility] Comment on above: Order Comment: 'TROP ' Serial specimen #1, #2 or #3: 1 Performed By: #### L 500.2500 #### [facility] [address] [place], [address] Creatinine [Mass/Vol] 2.06 mg/dL High 0.70-1.30 [facility] Comment on above: Order Comment: 'TROP ' Serial specimen #1, #2 or #3: 1 Result Comment: The validity of the calculated GFR GFRAA in patients over 70 years has not been determined. Clinical correlation is essential. Performed By: #### L 500.2500 #### [facility] [address] [place], [address] ECRCL 41.97 ml/min Normal [facility] Comment on above: Order Comment: 'TROP ' Serial specimen #1, #2 or #3: 1 Performed By: #### L 500.2500 #### [facility] [address] [place], [address] EST GFR - AA 42 mL/min Low >60 [facility] Comment on above: Order Comment: 'TROP ' Serial specimen #1, #2 or #3: 1 Result Comment: Afri can Indian GFR Calc Performed By: #### L 500.2500 #### [facility] [address] [place], [address] GAP 6 Normal 5-15 [facility] Comment on above: Order Comment: 'TROP ' Serial specimen #1, #2 or #3: 1 Performed By: #### L 500.2500 #### [facility] [address] [place], [address] GFR/1.73 sq M.predicted among non-blacks MDRD (S/P/Bld) [Vol rate/Area] 35 mL/min/{1.73_m2} Low >60 [facility] Comment on above: Order Comment: 'TROP ' Serial specimen #1, #2 or #3: 1 Result Comment: Non- GFR Calc Performed By: #### L 500.2500 #### [facility] [address] [place], [address] Globulin (S) [Mass/Vol] 3.4 g/dL Normal 2.2-4.2 [facility] Comment on above: Order Comment: 'TROP ' Serial specimen #1, #2 or #3: 1 Performed By: #### L 500.2500 #### [facility] [address] [place], [address] Glucose [Mass/Vol] 101 mg/dL Normal 74-106 [facility] Comment on above: Order Comment: 'TROP ' Serial specimen #1, #2 or #3: 1 Result Comment: Fast ing Glucose result from 100 to 125 mg/dL suggests IMPAIRED HOMEOSTASIS per A.D.A. criteria. Performed By: #### L 500.2500 #### [facility] [address] [place], [address] Potassium [Moles/Vol] 4.5 mmol/L Normal 3.5-5.1 [facility] Comment on above: Order Comment: 'TROP ' Serial specimen #1, #2 or #3: 1 Performed By: #### L 500.2500 #### [facility] [address] [place], [address] Sodium [Moles/Vol] 135 mmol/L Low 136-145 [facility] Comment on above: Order Comment: 'TROP ' Serial specimen #1, #2 or #3: 1 Performed By: #### L 500.2500 #### [facility] [address] [place], [address] T PROT 7.2 g/dL Normal 6.4-8.2 [facility] Comment on above: Order Comment: 'TROP ' Serial specimen #1, #2 or #3: 1 Performed By: #### L 500.2500 #### [facility] [address] [place], [address] Urea nitrogen [Mass/Vol] 21 mg/dL High 7-18 [facility] Comment on above: Order Comment: 'TROP ' Serial specimen #1, #2 or #3: 1 Performed By: #### L 500.2500 #### [facility] [address] [place], [address] Emergency Department Summary on 08-01-2024 Emergency Department Summary [facility] Medical Records Department [address] [place] [address] Emergency Department Summary 08/01/24 MR#: [id number] Acct: [id number] Name: NICK SAN Radha Rep #: [id number] : 1960 64 From: Kai Oswald MD PCP: NOT,DEFINED Status:DEP ER Location: ED HPI History of Present Illness Chief Complaint: Nausea/Vomiting/Diarrhea Informant: patient Narrative Narrative: 64-year-old male states he was recently admitted to [facility] in [place] for a UTI and subsequent sepsis. He was discharged home 3 or 4 days ago with antibiotics that he has had difficulty keeping down due to vomiting for the past 2 or 3 days. Denies any abdominal pain. He states he has been feeling very anxious. Today he states he has gotten up and walked from room to room about 20 times and he does not know why, just feeling anxious. He denies any abdominal pain or chest pain or cough or dyspnea or headache. He states he has a home nurse that came and checked on him and directed EMS to bring him to the ER. Patient states he did not want to come here and does not want to be here. [facility] Medical History Wears glasses Depression Bladder disease High cholesterol Back pain Parkinson's disease Stroke/cerebrovascular accident Heartburn Non-smoker History of pain when walking History of edema History of echocardiogram Cardiology follow-up encounter Bilateral primary osteoarthritis of knee Pain in both knees Family history of prostate problems Kidney stones Hypertension Diabetes History of back problems Arthritis Home Medications ???Medication ???Instructions ???Recorded ???Last Taken ???Type aspirin 81 mg tablet,delayed 81 mg PO DAILY HEART HEALTH 02/01/24 06/15/24 History release dapagliflozin propanediol 10 mg 10 mg PO DAILY CHOLESTEROL 03/17/24 Unknown History tablet spironolactone 25 mg tablet 25 mg PO QDAY WATER PILL 03/17/24 Unknown History carbidopa 25 mg-levodopa 100 mg 1 tab PO TID PARKINSON 05/23/24 06/22/24 History tablet amlodipine 10 mg tablet 10 mg PO DAILY BP #90 tabs 05/31/24 06/22/24 05:15 Rx citalopram 40 mg tablet 40 mg PO DAILY DEPRESSION #90 05/31/24 06/22/24 Rx TABLETS clonidine HCl 0.2 mg tablet 0.2 mg PO BID BP #180 tabs 05/31/24 Unknown Rx lisinopril 20 1 tab PO DAILY BP #90 tabs 05/31/24 Unknown Rx mg-hydrochlorothiazide 12.5 mg tablet tamsulosin 0.4 mg capsule 0.4 mg PO QHS PROSTATE #90 caps 05/31/24 Unknown Rx acetaminophen 500 mg tablet 1,000 mg (2 x 500 mg) PO Q8 #90 06/24/24 Unknown Rx tabs apixaban 5 mg tablet (Eliquis) 2.5 mg (1/2 x 5 mg) PO BID #28 tabs 06/24/24 Unknown Rx gabapentin 100 mg capsule 100 mg PO TIDCM PRN foot 06/24/24 Unknown Rx restlessness/itching/burn #60 caps oxycodone 5 mg tablet 5 - 10 mg (1 - 2 x 5 mg) PO Q4H 06/24/24 Unknown Rx PRN PRN Pain Score 4-10 7 days #60 tabs atorvastatin 20 mg tablet 20 mg PO QHS 08/01/24 Unknown History ondansetron 8 mg disintegrating 8 mg PO Q8H PRN nausea and 08/01/24 Unknown Rx tablet vomiting #20 tabs oxybutynin chloride 10 mg 10 mg PO DAILY 08/01/24 Unknown History tablet,extended release 24 hr pantoprazole 40 mg tablet,delayed 40 mg PO BID 08/01/24 Unknown History release sennosides 8.6 mg-docusate sodium 1 tab PO BID 08/01/24 Unknown History 50 mg tablet (Stimulant Laxative Plus) sulfamethoxazole 800 tab PO 08/01/24 Unknown History mg-trimethoprim 160 mg tablet Allergy/AdvReac Type Severity Reaction Status Date / Time acetaminophen (From Vicodin) Allergy Intermediate Nausea/Vom/ Verified 08/01/24 12:23 Diarrhea hydrocodone (From Vicodin) Allergy Intermediate Nausea/Vom/ Verified 08/01/24 12:23 Diarrhea tramadol Allergy Intermediate Nausea/Vom/ Verified 08/01/24 12:23 Diarrhea Family History Mother Hypertension Myocardial infarction Colon cancer CVA (cerebral vascular accident) Depression Diabetes Brother Colon cancer Cancer STOMACH CVA (cerebral vascular accident) Hypertension Father Hypertension Sister Diabetes Surgical History No pertinent past surgical history Social History household members: spouse current occupational status: retired current occupation: [employer] Smoking Status: Never smoker Electronic Cigarette Use: not used alcohol intake: never substance use type: does not use what type of physical activity do you participate in: none seatbelt use: sometimes do you feel safe at home: Yes ROS ROS ED Constitutional Constitutional ED: Reports fatigue; Denies chills, fever(s), sweats or weakness Eyes Eyes: Denies change in visi (more content not included)... Normal [facility] L501.4020on 08-01-2024 TROPONIN-I HS 28 pg/mL Normal 3.0-78.0 [facility] Comment on above: Order Comment: 'TROP ' Serial specimen #1, #2 or #3: 1 Result Comment: Duane miller Note: New Test Units and Gender Specific Reference Ranges. For more information see Policy Stat Procedure [place] High Sensitivity Troponin (TNIH) and attachments. Performed By: #### L 500.2500 #### [facility] [address] [place], [address] Urinalysis, Completeon 08-01 BACTERIA RARE Normal None Seen [facility] Comment on above: Order Comment: CLEAN CATCH Performed By: #### L 400.0001 #### [facility] [address] [place], [address] EPI,TRANSITION 0-5 SEEN Normal 0-5 [facility] Comment on above: Order Comment: CLEAN CATCH Performed By: #### L 400.0001 #### [facility] [address] [place], [address] WBC 0-5 SEEN Normal 0-5 [facility] Comment on above: Order Comment: CLEAN CATCH Performed By: #### L 400.0001 #### [facility] [address] [place], [address] EPI,SQUAMOUS 0 SEEN Normal 0-5 [facility] Comment on above: Order Comment: CLEAN CATCH Performed By: #### L 400.0001 #### [facility] [address] [place], [address] Mucus Ql (Urine sed) 0 SEEN Normal [facility] Comment on above: Order Comment: CLEAN CATCH Performed By: #### L 400.0001 #### [facility] [address] [place], [address] RBC 0 SEEN Normal 0-5 [facility] Comment on above: Order Comment: CLEAN CATCH Performed By: #### L 400.0001 #### [facility] [address] [place], [address] CNPNon 07-28-2024 CNPN Telephone (4CQ) NICK SAN ([id number]) 1960 M Date Time Provider Department 07/28/24 AGA BENITEZ 4CQ During your visit today, we recorded the following information about you: Nellie Farr 07/28/2024 3:32 PM Signed Berkley PT with [facility] Nick is calling Aga Benitez MD today to request and update PCP Update is Evaluation for PT was completed. Requesting PT in home 3 times per week for 4 weeks. Please return call to give VO Patient has been identified by name and birthdate. Duration of symptoms: N/A Person calling: PT Call Berkley [phone] Was an appointment scheduled: No Closing statement: Results or non-symptom based questions: Thank you for calling [facility], your call will be returned within the next business day. Aga Oneill MD 08/01/2024 10:10 AM Signed Noted. Thank you! Aga Benitez MD Allergies As of Date: 07/28/2024 Noted Allergy Reaction ACETAMINOPHEN 04/23/2023 8 - GI Upset HYDROCODONE 04/23/2023 8 - GI Upset TRAMADOL 04/23/2023 8 - GI Upset VICODIN (HYDROCODONE-ACETAMINOPHE*0 12/08/2023 8 - GI Upset Date Reviewed: 07/14/2024 [...] Encounter Status:Closed by AGA BENITEZ on 08/01/24 [facility] Telephone (4CQ) NICK SAN ([id number]) 1960 M Date Time Provider Department 07/28/24 AGA BENITEZ 4CQ During your visit today, we recorded the following information about you: Lux Sara Mortensen 07/28/2024 10:44 AM Signed Adela with [facility] [phone] is calling Aga Benitez MD today to request verbal orders for SN, PT and OT. Patient has been identified by name and birthdate. Duration of symptoms: N/A Person calling: Aga Olmos MD 07/29/2024 12:27 AM Signed Ok to place verbal orders for SN, PT and OT. MD Rosalind Jean Angela, RN 07/29/2024 1:46 PM Signed Called Adela FIGUEROA given for below services Allergies As of Date: 07/28/2024 Noted Allergy Reaction ACETAMINOPHEN 04/23/2023 8 - GI Upset HYDROCODONE 04/23/2023 8 - GI Upset TRAMADOL 04/23/2023 8 - GI Upset VICODIN (HYDROCODONE-ACETAMINOPHE*0 12/08/2023 8 - GI Upset Date Reviewed: 07/14/2024 [...] Hypotension [I95.9] 07/06/2024 07/13/2024 Encounter Status:Closed by ASHWINI BOEYR on 07/29/24 Normal [facility] Progress Noteon 07-28-2024 Progress Note Nick's IMC appointm ent appears to have been cancelled via mychart / text. Called and spoke with Hilary who per inpatient notes was heavily involved in discharge planning / hospitalization. She states Nick actually follows with [facility] care team and cancellation was on purpose. No issues or concerns reported by Hilary. Initial Post-Hospital Follow Up Call Call within 2 business days of discharge: no Patient: Nick San Patient : 1960 Spoke with: Hilary-daughter / patient contact. Discharge department/facility: [facility] Follow Up No future appointments. Noe Campa RN 30on 07-27-2024 30 Problem: Knowledge D eficit Goal: Patient/family/caregiver demonstrates understanding of disease process, treatment plan, medications, and discharge instructions Outcome: Progressing Problem: Potential for Compromised Skin Integrity Goal: Skin Integrity is Maintained or Improved Outcome: Progressing Goal: Nutritional status is improving Outcome: Progressing Problem: Urinary Incontinence Goal: Perineal skin integrity is maintained or improved Outcome: Progressing Problem: Potential for Falls Goal: I will remain free of falls Outcome: Progressing Problem: Discharge Barriers Goal: My discharge needs are met Outcome: Progressing Problem: Pain - Adult Goal: Verbalizes/displays adequate comfort level or baseline comfort level Outcome: Progressing Problem: Safety - Adult Goal: Free from fall injury Outcome: Progressing Problem: Discharge Planning Goal: Discharge to home or other facility with appropriate resources Outcome: Progressing Problem: Chronic Conditions and Co-morbidities Goal: Patient's chronic conditions and co-morbidity symptoms are monitored and maintained or improved Outcome: Progressing [id number] 07-27-2024 [id number] Pt to be dc'd home t deo . Spoke to pt's dtr Hilary who feels the [...] the trip-they have scheduled a 5 pm flower buncher or picker. Informed the Rn, pt aware -dtr Hilary and unite law secretary aware of dc time. Normal [facility] 36on 07-27-2024 36 Notification of Hosp ital Discharge Nick San was discharged from [facility] to home on 07/27/2024. Nick San plans to follow up outpatient with the IMC. Will route this note to Juan A Campa (Nate) to initiate Transitional Care Management Process. Prior to patient's discharge, the patient was scheduled an IMC follow up appointment within 14 days of hospital discharge. Future Appointments Date Time Provider Department Center 08/04/2024 3:00 PM Rashawn Monge DO [facility] Currently admitted. Normal [facility] Bacteria identified Cx Nom ( U)Ordered By: Albert Neely on 07-27-2024 Interpretation and review of laboratory results Abnormal [facility] CBC W Auto Differential pane l (Bld)on 07-27-2024 Basophils (Bld) [#/Vol] 0.1 10*3/uL 0.0 - 0.2 10*3/uL [facility] Basophils/100 WBC (Bld) 0.9 % 0.0 - 2.0 % [facility] Eosinophils (Bld) [#/Vol] 0.4 10*3/uL 0.0 - 0.5 10*3/uL [facility] Eosinophils/100 WBC (Bld) 3.9 % 0.0 - 6.0 % [facility] Erythrocyte distribution width (RBC) [Ratio] 12.9 % 11.5 - 15.0 % [facility] Hematocrit (Bld) [Volume fraction] 35 % Low 40.0 - 52.0 % [facility] Hemoglobin (Bld) [Mass/Vol] 11.2 g/dL Low 13.0 - 18.0 g/dL [facility] Immature granulocytes (Bld) [#/Vol] 0 10*3/uL NINF - 0.1 10*3/uL [facility] Immature granulocytes/100 WBC (Bld) 0.2 % 0.0 - 2.0 % [facility] Interpretation and review of laboratory results Abnormal [facility] Lymphocytes (Bld) [#/Vol] 3.3 10*3/uL 1.0 - 4.3 10*3/uL [facility] Lymphocytes/100 WBC (Bld) 35.9 % 15.0 - 45.0 % [facility] MCH (RBC) [Entitic mass] 30.1 pg 26.0 - 34.0 pg [facility] MCHC (RBC) [Mass/Vol] 32 % 30.5 - 36.0 % [facility] MCV (RBC) [Entitic vol] 94.1 fL 77.0 - 99.0 fL [facility] Monocytes (Bld) [#/Vol] 0.8 10*3/uL 0.0 - 0.9 10*3/uL [facility] Monocytes/100 WBC (Bld) 8.4 % 5.0 - 13.0 % [facility] Neutrophils (Bld) [#/Vol] 4.6 10*3/uL 1.8 - 7.5 10*3/uL [facility] Neutrophils/100 WBC (Bld) 50.7 % 38.0 - 82.0 % [facility] Nucleated RBC/100 WBC (Bld) [Ratio] 0 % [facility] Platelet mean volume (Bld) [Entitic vol] 9.7 fL 9.0 - 12.7 fL [facility] Platelets (Bld) [#/Vol] 313 10*3/uL 140 - 440 10*3/uL [facility] RBC (Bld) [#/Vol] 3.72 10*6/uL Low 4.40 - 5.90 10*6/uL [facility] WBC (Bld) [#/Vol] 9.1 10*3/uL 3.6 - 10.7 10*3/uL [facility] CBC WITH AUTO DIFFERENTIALon 07-27-2024 Basophils (Bld) [#/Vol] 0.1 10*3/uL Normal 0.0-0.2 [facility] Comment on above: Performed By: #### L [id number] ####Environmental Officer: ROLA GARCIA ([id number])[facility])[address] [place] [address] Basophils/100 WBC (Bld) 0.9 % Normal 0.0-2.0 [facility] Comment on above: Performed By: #### L [id number] ####Environmental Officer: ROLA GARCIA ([id number])[facility])[address] [place] [address] Eosinophils (Bld) [#/Vol] 0.4 10*3/uL Normal 0.0-0.5 [facility] Comment on above: Performed By: #### L [id number] ####Environmental Officer: ROLA GARCIA ([id number])[facility])[address] [place] [address] Eosinophils/100 WBC (Bld) 3.9 % Normal 0.0-6.0 [facility] Comment on above: Performed By: #### L [id number] ####Environmental Officer: ROLA GARCIA ([id number])[facility])[address] [place] [address] Erythrocyte distribution width (RBC) [Ratio] 12.9 % Normal 11.5-15.0 [facility] Comment on above: Performed By: #### L [id number] ####Environmental Officer: ROLA GARCIA ([id number])[facility])[address] [place] [address] Hematocrit (Bld) [Volume fraction] 35.0 % Low 40.0-52.0 [facility] Comment on above: Performed By: #### L [id number] ####Environmental Officer: ROLA GARCIA ([id number])[facility])[address] [place] [address] Hemoglobin (Bld) [Mass/Vol] 11.2 g/dL Low 13.0-18.0 [facility] Comment on above: Performed By: #### L [id number] ####Environmental Officer: ROLA GARCIA ([id number])[address] IMMATURE GRANS % 0.2 % Normal 0.0-2.0 [facility] Comment on above: Performed By: #### L [id number] ####Environmental Officer: ROLA GARCIA ([id number])[facility])[address] [place] [address] IMMATURE GRANS ABSOLUTE 0.0 10*3/uL Normal <0.1 [facility] Comment on above: Performed By: #### L [id number] ####Environmental Officer: ROLA GARCIA ([id number])[address] Lymphocytes (Bld) [#/Vol] 3.3 10*3/uL Normal 1.0-4.3 [facility] Comment on above: Performed By: #### L [id number] ####Environmental Officer: ROLA GARCIA ([id number])[facility])[address] [place] [address] Lymphocytes/100 WBC (Bld) 35.9 % Normal 15.0-45.0 [facility] Comment on above: Performed By: #### L [id number] ####Environmental Officer: ROLA GARCIA ([id number])[address] MCH (RBC) [Entitic mass] 30.1 pg Normal 26.0-34.0 [facility] Comment on above: Performed By: #### L [id number] ####Environmental Officer: ROLA GARCIA ([id number])[address] MCHC 32.0 % Normal 30.5-36.0 [facility] Comment on above: Performed By: #### L [id number] ####Environmental Officer: ROLA GARCIA ([id number])[facility])[address] [place] [address] MCV (RBC) [Entitic vol] 94.1 fL Normal 77.0-99.0 [facility] Comment on above: Performed By: #### L [id number] ####Environmental Officer: ROLA GARCIA ([id number])[facility])[address] [place] [address] Monocytes (Bld) [#/Vol] 0.8 10*3/uL Normal 0.0-0.9 [facility] Comment on above: Performed By: #### L [id number] ####Environmental Officer: ROLA GARCIA ([id number])[facility])[address] [place] [address] Monocytes/100 WBC (Bld) 8.4 % Normal 5.0-13.0 [facility] Comment on above: Performed By: #### L [id number] ####Environmental Officer: ROLA GARCIA ([id number])[facility])[address] [place] [address] NEUTROPHILS ABSOLUTE 4.6 10*3/uL Normal 1.8-7.5 [facility] Comment on above: Performed By: #### L [id number] ####Environmental Officer: ROLA GARCIA ([id number])[facility])[address] [place] [address] Neutrophils/100 WBC (Bld) 50.7 % Normal 38.0-82.0 [facility] Comment on above: Performed By: #### L [id number] ####Environmental Officer: ROLA GARCIA ([id number])[facility])[address] [place] [address] NRBC 0.0 /100 WBCs Normal 0.0-2.0 [facility] Comment on above: Performed By: #### L [id number] ####Environmental Officer: ROLA GARCIA ([id number])[facility])[address] [place] [address] Platelet mean volume (Bld) [Entitic vol] 9.7 fL Normal 9.0-12.7 [facility] Comment on above: Performed By: #### L [id number] ####Environmental Officer: ROLA GARCIA ([id number])[facility] ([facility])[address] [place] [address] Platelets (Bld) [#/Vol] 313 10*3/uL Normal 140-440 [facility] Comment on above: Performed By: #### L [id number] ####Environmental Officer: ROLA GARCIA ([id number])[facility] ([facility])[address] [place] [address] RBC (Bld) [#/Vol] 3.72 10*6/uL Low 4.40-5.90 [facility] Comment on above: Performed By: #### L [id number] ####Environmental Officer: ROLA GARCIA ([id number])[facility] ([facility])[address] [place] [address] WBC (Bld) [#/Vol] 9.1 10*3/uL Normal 3.6-10.7 [facility] Comment on above: Performed By: #### L [id number] ####Environmental Officer: ROLA GARCIA ([id number])[facility] ([facility])[address] [place] [address] COMPREHENSIVE METABOLIC PANE Juan J 07-27-2024 Albumin [Mass/Vol] 3.7 g/dL Normal 3.5-5.0 [facility] Comment on above: Performed By: #### L AB103, [id number], LAB17 ####Environmental Officer: ROLA GARCIA ([id number])[facility] ([facility])[address] [place] [address] ALP [Catalytic activity/Vol] 79 U/L Normal 38-126 [facility] Comment on above: Performed By: #### L AB103, [id number], LAB17 ####Environmental Officer: ROLA GARCIA ([id number])[facility] ([facility])[address] [place] [address] ALT [Catalytic activity/Vol] U/L Normal 0-49 [facility] Comment on above: Performed By: #### L AB103, [id number], LAB17 ####Environmental Officer: ROLA GARCIA ([id number])[facility])[address] [place] [address] Anion gap [Moles/Vol] 6 mmol/L Normal 3-13 [facility] Comment on above: Performed By: #### L AB103, [id number], LAB17 ####Environmental Officer: ROLA GARCIA ([id number])[facility] ([facility])[address] [place] [address] AST [Catalytic activity/Vol] 18 U/L Normal 15-46 [facility] Comment on above: Performed By: #### L AB103, PZV108, LAB17 ####Environmental Officer: ROLA GARCIA ([id number])[facility] ([facility])[address] [place] [address] Bilirubin [Mass/Vol] 0.7 mg/dL Normal 0.2-1.3 [facility] Comment on above: Performed By: #### L AB103, RFG165, LAB17 ####Environmental Officer: ROLA GARCIA ([id number])[facility] ([facility])[address] [place] [address] Calcium [Mass/Vol] 9.5 mg/dL Normal 8.4-10.4 [facility] Comment on above: Performed By: #### L AB103, [id number], LAB17 ####Environmental Officer: ROLA GARCIA ([id number])[facility] ([facility])[address] [place] [address] [place] Chloride [Moles/Vol] 106 mmol/L Normal 98-107 [facility] Comment on above: Performed By: #### L AB103, [id number], LAB17 ####Environmental Officer: ROLA GARCIA ([id number])[facility])[address] [place] [address] [place] CO2 [Moles/Vol] 24 mmol/L Normal 22-30 [facility] Comment on above: Performed By: #### L AB103, UPK301, LAB17 ####Environmental Officer: ROLA GARCIA ([id number])[facility])[address] [place] [address] Creatinine [Mass/Vol] 1.29 mg/dL High 0.66-1.25 [facility] Comment on above: Performed By: #### L AB103, UAN977, LAB17 ####Environmental Officer: ROLA GARCIA ([id number])[facility])[address] [place] [address] GLOMERULAR FILTRATION RATE ML/MIN/1.73 SQ M.PREDICTED 61.2 mL/min/1.73m*2 Normal >60.0 [facility] Comment on above: Result Comment: Calc ulation based on the Chronic Kidney Disease Epidemiology Collaboration (CKD-EPI) equation refit without adjustment for race Performed By: #### L AB103, [id number], LAB17 ####Environmental Officer: ROLA GARCIA ([id number])[facility] ([facility])[address] [place] [address] Glucose [Mass/Vol] 107 mg/dL High 70-100 [facility] Comment on above: Performed By: #### [place] AB103, DTQ069, LAB17 ####Environmental Officer: ROLA GARCIA ([id number])[facility])[address] [place] [address] Potassium [Moles/Vol] 4.1 mmol/L Normal 3.5-5.1 [facility] Comment on above: Performed By: #### L AB103, [id number], LAB17 ####Environmental Officer: ROLA GARCIA ([id number])[facility])[address] [place] [address] [place] Protein [Mass/Vol] 6.4 g/dL Normal 6.3-8.2 [facility] Comment on above: Performed By: #### L AB103, ELM692, LAB17 ####Environmental Officer: ROLA GARCIA ([id number])[facility])[address] [place] [address] [place] Sodium [Moles/Vol] 136 mmol/L Normal 135-145 [facility] Comment on above: Performed By: #### L AB103, [id number], LAB17 ####Environmental Officer: ROLA GARCIA ([id number])[facility] ([facility])[address] [place] [address] Urea nitrogen [Mass/Vol] 14 mg/dL Normal 9-20 [facility] Comment on above: Performed By: #### L AB103, [id number], LAB17 ####Environmental Officer: ROLA GARCIA ([id number])[facility] ([facility])[address] [place] [address] Comprehensive metabolic 1998 panelon 07-27-2024 Albumin [Mass/Vol] 3.7 g/dL 3.5 - 5.0 g/dL [facility] ALP [Catalytic activity/Vol] 79 U/L 38 - 126 U/L [facility] ALT [Catalytic activity/Vol] U/L 0 - 49 U/L [facility] Anion gap [Moles/Vol] 6 mmol/L 3 - 13 mmol/L [facility] AST [Catalytic activity/Vol] 18 U/L 15 - 46 U/L [facility] Bilirubin [Mass/Vol] 0.7 mg/dL 0.2 - 1 .3 mg/dL [facility] Calcium [Mass/Vol] 9.5 mg/dL 8.4 - 10. 4 mg/dL [facility] Chloride [Moles/Vol] 106 mmol/L 98 - 10 7 mmol/L [facility] CO2 [Moles/Vol] 24 mmol/L 22 - 30 mmol/L [facility] Creatinine [Mass/Vol] 1.29 mg/dL High 0.66 - 1.25 mg/dL [facility] GFR/1.73 sq M.predicted (S/P/Bld) [Vol rate/Area] 61.2 mL/min - PINF [facility] Comment on above: Calculation based on the Chronic Kidney Disease Epidemiology Collaboration (CKD-EPI) equation refit without adjustment for race Glucose [Mass/Vol] 107 mg/dL High 70 - 100 mg/dL [facility] Potassium [Moles/Vol] 4.1 mmol/L 3.5 - 5.1 mmol/L [facility] Protein [Mass/Vol] 6.4 g/dL 6.3 - 8.2 g/dL [facility] Sodium [Moles/Vol] 136 mmol/L 135 - 145 mmol/L [facility] Urea nitrogen [Mass/Vol] 14 mg/dL 9 - 20 mg/dL [facility] Laboratory - Chemistry and C hemistry - challengeon 07-27-2024 Glucose [Mass/Vol] 96 mg/dL 70 - 100 mg/dL [facility] Glucose [Mass/Vol] 109 mg/dL High 70 - 100 mg/dL [facility] Magnesium [Mass/Vol] 1.9 mg/dL 1.6 - 2 .3 mg/dL [facility] - Drug toxicology on 07-27-2024 Vancomycin trough [Mass/Vol] 8.2 ug/mL Low 15.0 - 20.0 ug/mL [facility] - Microbiology an d Antimicrobial susceptibilityOrdered By: Albert Neely on 07-27-2024 Bacteria identified Cx Nom (U) >100,000 CFU/mL Serratia marcescens Abnormal [facility] Comment on above: This organism posses ses an ampC beta-lactamase. For serious infections outside of the urinary tract, third generation cephalosporins may not be effective, even if test results indicate the organism is susceptible. MAGNESIUMon 07-27-2024 Magnesium [Mass/Vol] 1.9 mg/dL Normal 1.6-2.3 [facility] Comment on above: Performed By: #### L AB103, [id number], LAB17 ####Environmental Officer: ROLA GRACIA ([id number])[facility] ([facility])[address] [place] [address] Magnesium [Mass/Vol]on 07-27 Interpretation and review of laboratory results Normal [facility] No Panel Informationon 07-27 Interpretation and review of laboratory results Normal [facility] Performed by: [facility], [address] [place] [address] CLIA ID: [id number] [facility] Interpretation and review of laboratory results Abnormal [facility] Performed by: [facility], [address] [place] [address] CLIA ID: [id number] [facility] Interpretation and review of laboratory results Abnormal [facility] Nursing Noteon 07-27-2024 Nursing Note AVS instructions giv en. IV's removed. summer analyst removed, cleaned and placed at corresponding location at nurses station. Prescribed medications delivered to patient bedside via meds to beds. Patient awaiting transportation via EMS to home scheduled for flower buncher or picker at 1700. Normal [facility] Nursing Note Wound Care consulted for Pressure Injury Prevention. Pt's Santosh= 19, pt is no longer at risk. Skin Care Precaution order set in place. PT consult in place. Will continue to follow peripherally. Please voicera or secure chat message with any questions. Hermila Camarena, RN, CWCN Normal [facility] PHOSPHORUSon 07-27-2024 Phosphate [Mass/Vol] 5.0 mg/dL High 2.5-4.5 [facility] Comment on above: Performed By: #### L AB103, [id number], LAB17 ####Environmental Officer: ROLA GARCIA ([id number])[address] Phosphate [Moles/Vol]on 07-06 Phosphate [Mass/Vol] 5 mg/dL High 2.5 - 4 .5 mg/dL [facility] VANCOMYCIN, AUC TIMED DOSING on 07-27-2024 VANCOMYCIN, AUC 8.2 ug/mL Low 15.0-20.0 [facility] Comment on above: Order Comment: Param e draw random level at least >2 hours after the end of the last vancomycin infusion, or 30-minutes before next infusion. Performed By: #### L AB39 ####Environmental Officer: ROLA GARCIA ([id number])[facility])[address] [place] [address] 30on 07-26-2024 30 The patient is Moder ately Stable - Low risk of patient condition declining or worsening The patient's goals for the shift include get sleep The clinical goals for the shift include maintain urine output Problem: Knowledge Deficit Goal: Patient/family/caregiver demonstrates understanding of disease process, treatment plan, medications, and discharge instructions Outcome: Progressing Problem: Potential for Compromised Skin Integrity Goal: Skin Integrity is Maintained or Improved Outcome: Progressing Goal: Nutritional status is improving Outcome: Progressing Problem: Urinary Incontinence Goal: Perineal skin integrity is maintained or improved Outcome: Progressing Problem: Potential for Falls Goal: I will remain free of falls Outcome: Progressing Problem: Discharge Barriers Goal: My discharge needs are met Outcome: Progressing Problem: Pain - Adult Goal: Verbalizes/displays adequate comfort level or baseline comfort level Outcome: Progressing Problem: Safety - Adult Goal: Free from fall injury Outcome: Progressing Problem: Discharge Planning Goal: Discharge to home or other facility with appropriate resources Outcome: Progressing Problem: Chronic Conditions and Co-morbidities Goal: Patient's chronic conditions and co-morbidity symptoms are monitored and maintained or improved Outcome: Progressing 30 Problem: Knowledge D eficit Goal: Patient/family/caregiver demonstrates understanding of disease process, treatment plan, medications, and discharge instructions Outcome: Progressing Problem: Potential for Compromised Skin Integrity Goal: Skin Integrity is Maintained or Improved Outcome: Progressing Goal: Nutritional status is improving Outcome: Progressing Problem: Urinary Incontinence Goal: Perineal skin integrity is maintained or improved Outcome: Progressing Problem: Potential for Falls Goal: I will remain free of falls Outcome: Progressing Problem: Discharge Barriers Goal: My discharge needs are met Outcome: Progressing [id number] 07-26-2024 [id number] According to [facility], pt was sent home from [facility] with [facility] [address] [place] [address] Referral started in [facility] to verify services with this agency. ADDENDUM: 07/26/24 4:06 PM Elzbieta called this HCL from [facility] and verified pt is active for SN/PT/OT with them. Business Insight And Analytics Manager following case for Discharge Needs. [id number] 07-26-2024 [id number] Care Managment Initi al Assessment Date: 07/26/2024 Patient Name: Nick San : 1960 Patient Information Source of Information: Patient Cognition/Language: WFL - Within Functional Limits Permission given to speak with patient installation service representative/caregiver as indicated: Confirmation of Payer with patient/family: Yes Payer Name: [facility] Medicare : No Confirmation of Primary Care Physician: Confirmed PCP Name: Lynn states his daughter just got him one [...] of Daily Living Ambulation: Independent Bathing/Dressing: Independent Elimination/Continence/Toil eting: Independent Feeding: Independent Who Assists with Activities of Daily Living: Instrumental Activities of Daily Living Prescription Coverage: Yes Pharmacy Used: [facility] Medication Management: Independent Transportation/Shopping: Independent Transportation Mode: [...] follow for needs. . Brittany Alvarez RN 36on 07-26-[address] ill admitted 36 Pt consulted for intermittent hx of gross hematuria. None seen currently inpatient. Will require outpatient f/u and possible cystoscopy CBC W Auto Differential pane l (Bld)Ordered By: Millie Christensen on 07-26-2024 Basophils (Bld) [#/Vol] 0.1 10*3/uL 0.0 - 0.2 10*3/uL [facility] Basophils/100 WBC (Bld) 0.7 % 0.0 - 2.0 % [facility] Eosinophils (Bld) [#/Vol] 0.1 10*3/uL 0.0 - 0.5 10*3/uL [facility] Eosinophils/100 WBC (Bld) 1.1 % 0.0 - 6.0 % [facility] Erythrocyte distribution width (RBC) [Ratio] 13.2 % 11.5 - 15.0 % [facility] Hematocrit (Bld) [Volume fraction] 32.5 % Low 40.0 - 52.0 % [facility] Hemoglobin (Bld) [Mass/Vol] 10.2 g/dL Low 13.0 - 18.0 g/dL [facility] Immature granulocytes (Bld) [#/Vol] 0 10*3/uL NINF - 0.1 10*3/uL [facility] Immature granulocytes/100 WBC (Bld) 0.3 % 0.0 - 2.0 % [facility] Interpretation and review of laboratory results Abnormal [facility] Lymphocytes (Bld) [#/Vol] 3.2 10*3/uL 1.0 - 4.3 10*3/uL [facility] Lymphocytes/100 WBC (Bld) 29.1 % 15.0 - 45.0 % [facility] MCH (RBC) [Entitic mass] 29.8 pg 26.0 - 34.0 pg [facility] MCHC (RBC) [Mass/Vol] 31.4 % 30.5 - 36.0 % [facility] MCV (RBC) [Entitic vol] 95 fL 77.0 - 99.0 fL [facility] Monocytes (Bld) [#/Vol] 1 10*3/uL High 0.0 - 0.9 10*3/uL [facility] Monocytes/100 WBC (Bld) 9 % 5.0 - 13.0 % [facility] Neutrophils (Bld) [#/Vol] 6.5 10*3/uL 1.8 - 7.5 10*3/uL [facility] Neutrophils/100 WBC (Bld) 59.8 % 38.0 - 82.0 % [facility] Nucleated RBC/100 WBC (Bld) [Ratio] 0 % [facility] Platelet mean volume (Bld) [Entitic vol] 10 fL 9.0 - 12.7 fL [facility] Platelets (Bld) [#/Vol] 285 10*3/uL 140 - 440 10*3/uL [facility] RBC (Bld) [#/Vol] 3.42 10*6/uL Low 4.40 - 5.90 10*6/uL [facility] WBC (Bld) [#/Vol] 10.9 10*3/uL High 3.6 - 10.7 10*3/uL [facility] CBC WITH AUTO DIFFERENTIALon 07-26-2024 Basophils (Bld) [#/Vol] 0.1 10*3/uL Normal 0.0-0.2 [facility] Comment on above: Performed By: #### L [id number] ####Environmental Officer: ROLA GARCIA ([id number])[facility])[address] [place] [address] Basophils/100 WBC (Bld) 0.7 % Normal 0.0-2.0 [facility] Comment on above: Performed By: #### L [id number] ####Environmental Officer: ROLA GARCIA ([id number])[facility] ([facility])[address] [place] [address] Eosinophils (Bld) [#/Vol] 0.1 10*3/uL Normal 0.0-0.5 [facility] Comment on above: Performed By: #### L [id number] ####Environmental Officer: ROLA GARCIA ([id number])[facility])[address] [place] [address] Eosinophils/100 WBC (Bld) 1.1 % Normal 0.0-6.0 [facility] Comment on above: Performed By: #### L [id number] ####Environmental Officer: ROLA GARCIA ([id number])[facility] ([facility])[address] [place] [address] Erythrocyte distribution width (RBC) [Ratio] 13.2 % Normal 11.5-15.0 [facility] Comment on above: Performed By: #### L [id number] ####Environmental Officer: ROLA GARCIA ([id number])[facility] ([facility])[address] [place] [address] Hematocrit (Bld) [Volume fraction] 32.5 % Low 40.0-52.0 [facility] Comment on above: Performed By: #### L [id number] ####Environmental Officer: ROLA GARCIA ([id number])[facility])[address] [place] [address] Hemoglobin (Bld) [Mass/Vol] 10.2 g/dL Low 13.0-18.0 [facility] Comment on above: Performed By: #### L [id number] ####Environmental Officer: ROLA GARCIA ([id number])[facility])[address] [place] [address] IMMATURE GRANS % 0.3 % Normal 0.0-2.0 [facility] Comment on above: Performed By: #### L [id number] ####Environmental Officer: ROLA GARCIA ([id number])[facility])[address] [place] [address] IMMATURE GRANS ABSOLUTE 0.0 10*3/uL Normal <0.1 [facility] Comment on above: Performed By: #### L [id number] ####Environmental Officer: ROLA GARCIA ([id number])[facility])[address] [place] [address] Lymphocytes (Bld) [#/Vol] 3.2 10*3/uL Normal 1.0-4.3 [facility] Comment on above: Performed By: #### L [id number] ####Environmental Officer: ROLA GARCIA ([id number])[facility])[address] [place] [address] Lymphocytes/100 WBC (Bld) 29.1 % Normal 15.0-45.0 [facility] Comment on above: Performed By: #### L [id number] ####Environmental Officer: ROLA GARCIA ([id number])[facility])[address] [place] [address] MCH (RBC) [Entitic mass] 29.8 pg Normal 26.0-34.0 [facility] Comment on above: Performed By: #### L [id number] ####Environmental Officer: ROLA GACRIA ([id number])[facility])[address] [place] [address] MCHC 31.4 % Normal 30.5-36.0 [facility] Comment on above: Performed By: #### L [id number] ####Environmental Officer: ROLA GARCIA ([id number])[facility])[address] [place] [address] MCV (RBC) [Entitic vol] 95.0 fL Normal 77.0-99.0 [facility] Comment on above: Performed By: #### L [id number] ####Environmental Officer: ROLA GARCIA ([id number])[facility])[address] [place] [address] Monocytes (Bld) [#/Vol] 1.0 10*3/uL High 0.0-0.9 [facility] Comment on above: Performed By: #### L [id number] ####Environmental Officer: ROLA GARCIA ([id number])[facility])[address] [place] [address] Monocytes/100 WBC (Bld) 9.0 % Normal 5.0-13.0 [facility] Comment on above: Performed By: #### L [id number] ####Environmental Officer: ROLA GARCIA ([id number])[facility])[address] [place] [address] NEUTROPHILS ABSOLUTE 6.5 10*3/uL Normal 1.8-7.5 [facility] Comment on above: Performed By: #### L [id number] ####Environmental Officer: ROLA GARCIA ([id number])[facility])[address] [place] [address] Neutrophils/100 WBC (Bld) 59.8 % Normal 38.0-82.0 [facility] Comment on above: Performed By: #### L [id number] ####Environmental Officer: ROLA GARCIA ([id number])[facility])[address] [place] [address] NRBC 0.0 /100 WBCs Normal 0.0-2.0 [facility] Comment on above: Performed By: #### L [id number] ####Environmental Officer: ROLA GARCIA ([id number])[facility] ([facility])[address] [place] [address] Platelet mean volume (Bld) [Entitic vol] 10.0 fL Normal 9.0-12.7 [facility] Comment on above: Performed By: #### L [id number] ####Environmental Officer: ROLA GARCIA ([id number])[facility])[address] [place] [address] Platelets (Bld) [#/Vol] 285 10*3/uL Normal 140-440 [facility] Comment on above: Performed By: #### L [id number] ####Environmental Officer: ROLA GARCIA ([id number])[facility] ([facility])[address] [place] [address] RBC (Bld) [#/Vol] 3.42 10*6/uL Low 4.40-5.90 [facility] Comment on above: Performed By: #### L [id number] ####Environmental Officer: ROLA GARCIA ([id number])[facility])[address] [place] [address] WBC (Bld) [#/Vol] 10.9 10*3/uL High 3.6-10.7 [facility] Comment on above: Performed By: #### L [id number] ####Environmental Officer: ROLA GARCIA ([id number])[facility])[address] [place] [address] COMPREHENSIVE METABOLIC PANE Juan J 07-26-2024 Albumin [Mass/Vol] 3.5 g/dL Normal 3.5-5.0 [facility] Comment on above: Performed By: #### L AB17, [id number], [id number] ####Environmental Officer: ROLA GARCIA ([id number])[facility])[address] [place] [address] [place] ALP [Catalytic activity/Vol] 90 U/L Normal 38-126 [facility] Comment on above: Performed By: #### L AB17, [id number], JEC047 ####Environmental Officer: ROLA GARCIA ([id number])[facility])[address] [place] [address] [place] ALT [Catalytic activity/Vol] 5 U/L Normal 0-49 [facility] Comment on above: Performed By: #### L AB17, [id number], [id number] ####Environmental Officer: ROLA GARCIA ([id number])[facility])[address] [place] [address] Anion gap [Moles/Vol] 8 mmol/L Normal 3-13 [facility] Comment on above: Performed By: #### L AB17, [id number], [id number] ####Environmental Officer: ROLA GARCIA ([id number])[facility])[address] [place] [address] AST [Catalytic activity/Vol] 18 U/L Normal 15-46 [facility] Comment on above: Performed By: #### L AB17, [id number], [id number] ####Environmental Officer: ROLA GARCIA ([id number])[facility] ([facility])[address] [place] [address] [place] Bilirubin [Mass/Vol] 0.6 mg/dL Normal 0.2-1.3 [facility] Comment on above: Performed By: #### L AB17, [id number], [id number] ####Environmental Officer: ROLA GARCIA ([id number])[facility] ([facility])[address] [place] [address] [place] Calcium [Mass/Vol] 9.1 mg/dL Normal 8.4-10.4 [facility] Comment on above: Performed By: #### L AB17, [id number], HMC322 ####Environmental Officer: ROLA GARCIA ([id number])[facility])[address] [place] [address] [place] Chloride [Moles/Vol] 104 mmol/L Normal 98-107 [facility] Comment on above: Performed By: #### L AB17, CTU163, [id number] ####Environmental Officer: ROLA GARCIA ([id number])[facility])[address] [place] [address] CO2 [Moles/Vol] 24 mmol/L Normal 22-30 [facility] Comment on above: Performed By: #### L AB17, ZSD224, WES654 ####Environmental Officer: ROLA GARCIA ([id number])[facility] ([facility])[address] [place] [address] Creatinine [Mass/Vol] 1.45 mg/dL High 0.66-1.25 [facility] Comment on above: Performed By: #### L AB17, SYD228, [id number] ####Environmental Officer: ROLA GARCIA ([id number])[facility])[address] [place] [address] GLOMERULAR FILTRATION RATE ML/MIN/1.73 SQ M.PREDICTED 53.1 mL/min/1.73m*2 Low >60.0 [facility] Comment on above: Result Comment: Calc ulation based on the Chronic Kidney Disease Epidemiology Collaboration (CKD-EPI) equation refit without adjustment for race Performed By: #### L AB17, [id number], [id number] ####Environmental Officer: ROLA GARCIA ([id number])[facility] ([facility])[address] [place] [address] Glucose [Mass/Vol] 108 mg/dL High 70-100 [facility] Comment on above: Performed By: #### L AB17, ZYL778, OHT730 ####Environmental Officer: ROLA GARCIA ([id number])[facility])[address] [place] [address] Potassium [Moles/Vol] 4.0 mmol/L Normal 3.5-5.1 [facility] Comment on above: Performed By: #### L AB17, SSX793, [id number] ####Environmental Officer: ROLA [id number])[facility])[address] [place] [address] Protein [Mass/Vol] 6.0 g/dL Low 6.3-8.2 [facility] Comment on above: Performed By: #### L AB17, [id number], [id number] ####Environmental Officer: ROLA GARCIA ([id number])[facility])[address] [place] [address] Sodium [Moles/Vol] 136 mmol/L Normal 135-145 [facility] Comment on above: Performed By: #### L AB17, [id number], NOP407 ####Environmental Officer: ROLA GARCIA ([id number])[facility])[address] [place] [address] Urea nitrogen [Mass/Vol] 18 mg/dL Normal 9-20 [facility] Comment on above: Performed By: #### L AB17, AGS746, ELM820 ####Environmental Officer: ROLA GARCIA ([id number])[facility] ([facility])[address] [place] [address] Comprehensive metabolic 1998 panelon 07-26-2024 Albumin [Mass/Vol] 3.5 g/dL 3.5 - 5.0 g/dL [facility] ALP [Catalytic activity/Vol] 90 U/L 38 - 126 U/L [facility] ALT [Catalytic activity/Vol] 5 U/L 0 - 49 U/L [facility] Anion gap [Moles/Vol] 8 mmol/L 3 - 13 mmol/L [facility] AST [Catalytic activity/Vol] 18 U/L 15 - 46 U/L [facility] Bilirubin [Mass/Vol] 0.6 mg/dL 0.2 - 1 .3 mg/dL [facility] Calcium [Mass/Vol] 9.1 mg/dL 8.4 - 10. 4 mg/dL [facility] Chloride [Moles/Vol] 104 mmol/L 98 - 10 7 mmol/L [facility] CO2 [Moles/Vol] 24 mmol/L 22 - 30 mmol/L [facility] Creatinine [Mass/Vol] 1.45 mg/dL High 0.66 - 1.25 mg/dL [facility] GFR/1.73 sq M.predicted (S/P/Bld) [Vol rate/Area] 53.1 mL/min Low - PINF [facility] [employer] Comment on above: Calculation based on the Chronic Kidney Disease Epidemiology Collaboration (CKD-EPI) equation refit without adjustment for race Glucose [Mass/Vol] 108 mg/dL High 70 - 100 mg/dL [facility] [employer] Potassium [Moles/Vol] 4 mmol/L 3.5 - 5.1 mmol/L [facility] [employer] Protein [Mass/Vol] 6 g/dL Low 6.3 - 8.2 g/dL [facility] [employer] Sodium [Moles/Vol] 136 mmol/L 135 - 145 mmol/L [facility] [employer] Urea nitrogen [Mass/Vol] 18 mg/dL 9 - 20 mg/dL [facility] [employer] Consulton 07-26-2024 Consult ------- Attestation signed by Wang Villasenor MD at [...] urinary retention following L total knee at [facility] on 06/22/24. Presented to ER w [...] small bilateral renal calculus, no hydro 16Fr pryor coude PAST MEDICAL HISTORY: Past Medical History: [...] 0 min Stress: Stress Concern Present (07/25/2024) [employer] [place] [employer] - Occupational Stress Questionnaire Feeling of Stress : To some extent Social Connections: Socially Isolated (07/25/2024) Social Connection and Isolation Panel [NHANES] Frequency of Communication with Friends and Family: Never Frequency of Social Gatherings with Friends and Family: Never Attends [employer] Services: Never Active Member of Clubs or Organizations: No Attends Club or Organization Meetings: Never Marital Status: Intimate Partner Violence: Not At Risk (07/25/2024) Humiliation, Afraid, Rape, and Kick questionnaire Fear of Current or Ex-Partner: No Emotionally Abused: No Physically Abused: No Sexually (more content not included)... Normal [facility] IRON AND TIBCon 07-26-2024 IRON BINDING CAPACITY 226 ug/dL Low 261-497 [facility] Comment on above: Performed By: #### L [id number] ####Environmental Officer: ROLA GARCIA ([id number])[facility] ([address] IRON SATURATION 11 % Low 15-50 [facility] Comment on above: Performed By: #### L [id number] ####Environmental Officer: ROLA GARCIA ([id number])[facility] ([facility])[address] [place] [address] IRON, TOTAL 24 ug/dL Low 49-181 [facility] Comment on above: Performed By: #### L [id number] ####Environmental Officer: ROLA GARCIA ([id number])[facility] ([facility])[address] [place] [address] Iron and Iron binding capaci ty panelon 07-26-2024 Interpretation and review of laboratory results Abnormal [facility] Iron [Mass/Vol] 24 ug/dL Low 49 - 181 ug/dL [facility] Iron binding capacity [Mass/Vol] 226 ug/dL Low 261 - 497 ug/dL [facility] Iron saturation [Mass fraction] 11 % Low 15 - 50 % [facility] Laboratory - Chemistry and C hemistry - challengeon 07-26-2024 Glucose [Mass/Vol] 123 mg/dL High 70 - 100 mg/dL [facility] Glucose [Mass/Vol] 122 mg/dL High 70 - 100 mg/dL [facility] Glucose [Mass/Vol] 117 mg/dL High 70 - 100 mg/dL [facility] Glucose [Mass/Vol] 128 mg/dL High 70 - 100 mg/dL [facility] Magnesium [Mass/Vol] 2.4 mg/dL High 1.6 - 2 .3 mg/dL [facility] Laboratory - Drug toxicology on 07-26-2024 Vancomycin trough [Mass/Vol] 7.8 ug/mL Low 15.0 - 20.0 ug/mL [facility] MAGNESIUMon 07-26-2024 Magnesium [Mass/Vol] 2.4 mg/dL High 1.6-2.3 [facility] Comment on above: Performed By: #### L AB17, [id number], [id number] ####Environmental Officer: ROLA GARCIA ([id number])[facility] ([facility])[address] [place] [address] No Panel Informationon 07-26 Interpretation and review of laboratory results Abnormal [facility] Performed by: [facility], [address] [place] [address] CLIA ID: [id number] [facility] Interpretation and review of laboratory results Abnormal [facility] Performed by: [facility], [address] [place] [id number] CLIA ID: [id number] [facility] Interpretation and review of laboratory results Abnormal [facility] Performed by: [facility], [address] [place] [id number] CLIA ID: [id number] [facility] No evidence of deep vein or superficial vein thrombosis in the right lower extremity. Vessels demonstrate normal compressibility, color filling, and phasic and spontaneous flow. No evidence of deep vein or superficial vein thrombosis in the left lower extremity. Vessels demonstrate normal compressibility, color filling, and phasic and spontaneous flow. Right Lower Venous No evidence of deep vein or superficial vein thrombosis. The common femoral, saphenofemoral junction, femoral, popliteal, gastrocnemius, soleal, greater saphenous, posterior tibial, and peroneal veins were imaged in the transverse view and showed normal compressibility. The common femoral, middle femoral, and popliteal veins were imaged in the longitudinal view and showed normal color filling and normal phasic and spontaneous flow. Left Lower Venous No evidence of deep vein or superficial vein thrombosis. The common femoral, saphenofemoral junction, femoral, popliteal, gastrocnemius, soleal, greater saphenous, posterior tibial, and peroneal veins were imaged in the transverse view and showed normal compressibility. The common femoral, middle femoral, and popliteal veins were imaged in the longitudinal view and showed normal color filling and normal phasic and spontaneous flow. Catcher Filter Tip Details A ramires scale, color Doppler imaging and spectral Doppler analysis ultrasound was performed. During the study longitudinal and transverse views were obtained. Pulsed wave doppler was performed. The exam was performed with the patient in the supine position. Overall the study quality was adequate. Study was technically difficult due to: body habitus. CV CPACS Interpretation and review of laboratory results Abnormal [facility]: [facility], [address] [place] [address] CLIA ID: [id number] [facility] Interpretation and review of laboratory results Abnormal [facility] PHOSPHORUSon 07-26-2024 Phosphate [Mass/Vol] 4.1 mg/dL Normal 2.5-4.5 [facility] Comment on above: Performed By: #### L AB17, [id number], [id number] ####Environmental Officer: ROLA GARCIA ([id number])[facility] ([address] Phosphate [Moles/Vol]on 07-06 Interpretation and review of laboratory results Normal [facility] Phosphate [Mass/Vol] 4.1 mg/dL 2.5 - 4 .5 mg/dL [facility] Progress Noteon 07-26-2024 Progress Note Vancomycin therapy h as been discontinued by Anil Julien on 07/26/24. Thank you for the consult. Pharmacy signing off for vancomycin dosing. Jos Llamas, PharmD Date: 07/26/24 Time: 10:28 AM Normal [facility] Progress Note ------- Attestation signed by Baldev Bosch MD at 07/26/2024 3:57 PM Agree with note, see H&P for attending comments Med Team Progress Note Nick San : 1960(64 y.o.) Date: July 26, 2024 Med Team: Madai Attending: Dr. Bosch Chief Complaint: blood in urine Subjective: - No acute events overnight. - Currently, Mr. San is comfortable resting in bed and in [...] ng/mL Final HEMOGLOBIN A1C Date Value Ref R (more content not included)... Normal [facility] VANCOMYCIN, AUC TIMED DOSING on 07-26-2024 VANCOMYCIN, AUC 7.8 ug/mL Low 15.0-20.0 [facility] Comment on above: Order Comment: Pleas e draw random level at least >2 hours after the end of the last vancomycin infusion, or 30-minutes before next infusion. Performed By: #### L AB39 ####Environmental Officer: ROLA GARCIA ([id number])[address] Vancomycin trough [Mass/Vol] on 07-26-2024 Interpretation and review of laboratory results Abnormal [facility] BASIC METABOLIC PANELon 10-2 Anion gap [Moles/Vol] 12 mmol/L Normal 3-13 [facility] Comment on above: Performed By: #### L AB15, SOL407, LAB68, LAB20 ####Environmental Officer: ROLA GARCIA ([id number])[facility])[address] [place] [address] Calcium [Mass/Vol] 9.4 mg/dL Normal 8.4-10.4 [facility] Comment on above: Performed By: #### L AB15, PQT060, LAB68, LAB20 ####Environmental Officer: ROLA GARCIA ([id number])[facility])[address] [place] [address] [place] Chloride [Moles/Vol] 100 mmol/L Normal 98-107 [facility] Comment on above: Performed By: #### L AB15, NPT801, LAB68, LAB20 ####Environmental Officer: ROLA GARCIA ([id number])[facility])[address] [place] [address] CO2 [Moles/Vol] 23 mmol/L Normal 22-30 [facility] Comment on above: Performed By: #### L AB15, LHW918, LAB68, LAB20 ####Environmental Officer: ROLA GARCIA ([id number])[facility])[address] [place] [address] Creatinine [Mass/Vol] 1.67 mg/dL High 0.66-1.25 [facility] Comment on above: Performed By: #### L AB15, JLO980, LAB68, LAB20 ####Environmental Officer: ROLA GARCIA ([id number])[facility])[address] [place] [address] GLOMERULAR FILTRATION RATE ML/MIN/1.73 SQ M.PREDICTED 44.9 mL/min/1.73m*2 Low >60.0 [facility] Comment on above: Result Comment: Calc ulation based on the Chronic Kidney Disease Epidemiology Collaboration (CKD-EPI) equation refit without adjustment for race Performed By: #### L AB15, ELD008, LAB68, LAB20 ####Environmental Officer: ROLA GARCIA ([id number])[facility] ([facility])[address] [place] [address] [place] Glucose [Mass/Vol] 188 mg/dL High 70-100 [facility] Comment on above: Performed By: #### L AB15, [id number], LAB68, LAB20 ####Environmental Officer: ROLA GARCIA ([id number])[facility])[address] [place] [address] Potassium [Moles/Vol] 4.7 mmol/L Normal 3.5-5.1 [facility] Comment on above: Performed By: #### L AB15, [id number], LAB68, LAB20 ####Environmental Officer: ROLA GARCIA ([id number])[facility])[address] [place] [address] Sodium [Moles/Vol] 135 mmol/L Normal 135-145 [facility] Comment on above: Performed By: #### L AB15, [id number], LAB68, LAB20 ####Environmental Officer: ROLA GARCIA ([id number])[facility])[address] [place] [address] Urea nitrogen [Mass/Vol] 25 mg/dL High 9-20 [facility] Comment on above: Performed By: #### L AB15, DNF113, LAB68, LAB20 ####Environmental Officer: ROLA GARCIA ([id number])[facility])[address] [place] [address] BLOOD CULTUREon 07-25-2024 Bacteria identified Cx Nom (Bld) BLOOD CULTURE Reference No growth at 5 days ORDER COMMENTS: Blood Collection Site: Left Arm [ S = SUSCEPTIBLE R = RESISTANT I = INTERMEDIATE S-DD = Susceptible-dose dependent NS = Non-susceptible NO = No Interpretation ] Normal [facility] Comment on above: Performed By: #### L [id number] ####Environmental Officer: ROLA GARCIA ([id number])[facility])[address] [place] [address] Basic metabolic 1998 panelon 07-25-2024 Anion gap [Moles/Vol] 12 mmol/L 3 - 13 mmol/L [facility] Calcium [Mass/Vol] 9.4 mg/dL 8.4 - 10. 4 mg/dL [facility] Chloride [Moles/Vol] 100 mmol/L 98 - 10 7 mmol/L [facility] CO2 [Moles/Vol] 23 mmol/L 22 - 30 mmol/L [facility] Creatinine [Mass/Vol] 1.67 mg/dL High 0.66 - 1.25 mg/dL [facility] GFR/1.73 sq M.predicted (S/P/Bld) [Vol rate/Area] 44.9 mL/min Low - PINF [facility] Comment on above: Calculation based on the Chronic Kidney Disease Epidemiology Collaboration (CKD-EPI) equation refit without adjustment for race Glucose [Mass/Vol] 188 mg/dL High 70 - 100 mg/dL [facility] Interpretation and review of laboratory results Abnormal [facility] Potassium [Moles/Vol] 4.7 mmol/L 3.5 - 5.1 mmol/L [facility] Sodium [Moles/Vol] 135 mmol/L 135 - 145 mmol/L [facility] Urea nitrogen [Mass/Vol] 25 mg/dL High 9 - 20 mg/dL [facility] C-REACTIVE PROTEINon 024 CRP [Mass/Vol] 24.1 mg/L High <10.0 [facility] Comment on above: Performed By: #### L [id number] #### Environmental Officer: ROLA GARCIA ([id number]) [facility] ([facility]) [address] [place] [address] CBC W Auto Differential pane l (Bld)on 07-25-2024 Basophils (Bld) [#/Vol] 0.1 10*3/uL 0.0 - 0.2 10*3/uL [facility] Basophils/100 WBC (Bld) 0.6 % 0.0 - 2.0 % [facility] Eosinophils (Bld) [#/Vol] 0.1 10*3/uL 0.0 - 0.5 10*3/uL [facility] Eosinophils/100 WBC (Bld) 0.6 % 0.0 - 6.0 % [facility] Erythrocyte distribution width (RBC) [Ratio] 13.2 % 11.5 - 15.0 % [facility] Hematocrit (Bld) [Volume fraction] 24.6 % Low 40.0 - 52.0 % [facility] Hemoglobin (Bld) [Mass/Vol] 7.8 g/dL Low 13.0 - 18.0 g/dL [facility] [employer] Immature granulocytes (Bld) [#/Vol] 0 10*3/uL NINF - 0.1 10*3/uL [facility] [employer] Immature granulocytes/100 WBC (Bld) 0.4 % 0.0 - 2.0 % [facility] Interpretation and review of laboratory results Abnormal [facility] IPF 1 [facility] [employer] Lymphocytes (Bld) [#/Vol] 1.8 10*3/uL 1.0 - 4.3 10*3/uL [facility] Lymphocytes/100 WBC (Bld) 21.3 % 15.0 - 45.0 % [facility] MCH (RBC) [Entitic mass] 30.1 pg 26.0 - 34.0 pg [facility] MCHC (RBC) [Mass/Vol] 31.7 % 30.5 - 36.0 % [facility] MCV (RBC) [Entitic vol] 95 fL 77.0 - 99.0 fL [facility] Monocytes (Bld) [#/Vol] 0.7 10*3/uL 0.0 - 0.9 10*3/uL [facility] Monocytes/100 WBC (Bld) 8.7 % 5.0 - 13.0 % [facility] Neutrophils (Bld) [#/Vol] 5.8 10*3/uL 1.8 - 7.5 10*3/uL [facility] Neutrophils/100 WBC (Bld) 68.4 % 38.0 - 82.0 % [facility] Nucleated RBC/100 WBC (Bld) [Ratio] 0 % [facility] Platelet mean volume (Bld) [Entitic vol] 9.6 fL 9.0 - 12.7 fL [facility] Platelets (Bld) [#/Vol] 212 10*3/uL 140 - 440 10*3/uL [facility] RBC (Bld) [#/Vol] 2.59 10*6/uL Low 4.40 - 5.90 10*6/uL [facility] WBC (Bld) [#/Vol] 8.5 10*3/uL 3.6 - 10.7 10*3/uL [facility] Basophils (Bld) [#/Vol] 0.1 10*3/uL 0.0 - 0.2 10*3/uL [facility] Basophils/100 WBC (Bld) 0.4 % 0.0 - 2.0 % [facility] Eosinophils (Bld) [#/Vol] 0 10*3/uL 0.0 - 0.5 10*3/uL [facility] Eosinophils/100 WBC (Bld) 0.2 % 0.0 - 6.0 % [facility] Erythrocyte distribution width (RBC) [Ratio] 13.1 % 11.5 - 15.0 % [facility] Hematocrit (Bld) [Volume fraction] 34 % Low 40.0 - 52.0 % [facility] Hemoglobin (Bld) [Mass/Vol] 11 g/dL Low 13.0 - 18.0 g/dL [facility] Immature granulocytes (Bld) [#/Vol] 0.1 10*3/uL High NINF - 0.1 10*3/uL [facility] Immature granulocytes/100 WBC (Bld) 0.4 % 0.0 - 2.0 % [facility] Interpretation and review of laboratory results Abnormal [facility] Lymphocytes (Bld) [#/Vol] 1.1 10*3/uL 1.0 - 4.3 10*3/uL [facility] Lymphocytes/100 WBC (Bld) 9.2 % Low 15.0 - 45.0 % [facility] MCH (RBC) [Entitic mass] 30.5 pg 26.0 - 34.0 pg [facility] MCHC (RBC) [Mass/Vol] 32.4 % 30.5 - 36.0 % [facility] MCV (RBC) [Entitic vol] 94.2 fL 77.0 - 99.0 fL [facility] Monocytes (Bld) [#/Vol] 0.7 10*3/uL 0.0 - 0.9 10*3/uL [facility] Monocytes/100 WBC (Bld) 6.2 % 5.0 - 13.0 % [facility] Neutrophils (Bld) [#/Vol] 9.8 10*3/uL High 1.8 - 7.5 10*3/uL [facility] Neutrophils/100 WBC (Bld) 83.6 % High 38.0 - 82.0 % [facility] Nucleated RBC/100 WBC (Bld) [Ratio] 0 % [facility] Platelet mean volume (Bld) [Entitic vol] 10.1 fL 9.0 - 12.7 fL [facility] Platelets (Bld) [#/Vol] 312 10*3/uL 140 - 440 10*3/uL [facility] RBC (Bld) [#/Vol] 3.61 10*6/uL Low 4.40 - 5.90 10*6/uL [facility] WBC (Bld) [#/Vol] 11.7 10*3/uL High 3.6 - 10.7 10*3/uL [facility] CBC WITH AUTO DIFFERENTIALon 07-25-2024 Basophils (Bld) [#/Vol] 0.1 10*3/uL Normal 0.0-0.2 [facility] Comment on above: Performed By: #### L [id number], [id number], [id number] #### Environmental Officer: ROLA GARCIA ([id number]) [facility]) [address] [place] [address] Basophils/100 WBC (Bld) 0.6 % Normal 0.0-2.0 [facility] Comment on above: Performed By: #### L AB296, [id number], [id number] #### Environmental Officer: ROLA GARCIA ([id number]) [facility]) [address] [place] [address] Eosinophils (Bld) [#/Vol] 0.1 10*3/uL Normal 0.0-0.5 [facility] Comment on above: Performed By: #### L AB296, [id number], [id number] #### Environmental Officer: ROLA GARCIA ([id number]) [facility]) [address] [place] [address] Eosinophils/100 WBC (Bld) 0.6 % Normal 0.0-6.0 [facility] Comment on above: Performed By: #### L AB296, [id number], [id number] #### Environmental Officer: ROLA GARCIA ([id number]) [facility]) [address] [place] [address] Erythrocyte distribution width (RBC) [Ratio] 13.2 % Normal 11.5-15.0 [facility] Comment on above: Performed By: #### L AB296, [id number], [id number] #### Environmental Officer: ROLA GARCIA ([id number]) [address] Hematocrit (Bld) [Volume fraction] 24.6 % Low 40.0-52.0 [facility] Comment on above: Performed By: #### L AB296, [id number], [id number] #### Environmental Officer: ROLA GARCIA ([id number]) [facility]) [address] [place] [address] Hemoglobin (Bld) [Mass/Vol] 7.8 g/dL Low 13.0-18.0 [facility] Comment on above: Performed By: #### L AB296, [id number], [id number] #### Environmental Officer: ROLA GARCIA ([id number]) [facility]) [address] [place] [address] IMMATURE GRANS % 0.4 % Normal 0.0-2.0 [facility] Comment on above: Performed By: #### [place] AB296, [id number], [id number] #### Environmental Officer: ROLA GARCIA ([id number]) [facility]) [address] [place] [address] IMMATURE GRANS ABSOLUTE 0.0 10*3/uL Normal <0.1 [facility] Comment on above: Performed By: #### [place] AB296, [id number], [id number] #### Environmental Officer: ROLA GARCIA ([id number]) [facility]) [address] [place] [address] [place] IPF 1 Normal [facility] Comment on above: Performed By: #### [place] AB296, [id number], [id number] #### Environmental Officer: ROLA GARCIA ([id number]) [facility]) [address] [place] [address] [place] Lymphocytes (Bld) [#/Vol] 1.8 10*3/uL Normal 1.0-4.3 [facility] Comment on above: Performed By: #### [place] AB296, [id number], [id number] #### Environmental Officer: ROLA GARCIA ([id number]) [facility]) [address] [place] [address] Lymphocytes/100 WBC (Bld) 21.3 % Normal 15.0-45.0 [facility] Comment on above: Performed By: #### L AB296, [id number], [id number] #### Environmental Officer: ROLA GARCIA ([id number]) [facility] ([facility]) [address] [place] [address] MCH (RBC) [Entitic mass] 30.1 pg Normal 26.0-34.0 [facility] Comment on above: Performed By: #### L AB296, [id number], [id number] #### Environmental Officer: ROLA GARCIA ([id number]) [facility] ([facility]) [address] [place] [address] MCHC 31.7 % Normal 30.5-36.0 [facility] Comment on above: Performed By: #### [place] AB296, [id number], [id number] #### Environmental Officer: ROLA GARCIA ([id number]) [facility] ([facility]) [address] [place] [address] MCV (RBC) [Entitic vol] 95.0 fL Normal 77.0-99.0 [facility] Comment on above: Performed By: #### [place] AB296, [id number], [id number] #### Environmental Officer: ROLA GARCIA ([id number]) [facility] ([facility]) [address] [place] [address] Monocytes (Bld) [#/Vol] 0.7 10*3/uL Normal 0.0-0.9 [facility] Comment on above: Performed By: #### L AB296, [id number], [id number] #### Environmental Officer: ROLA GARCIA ([id number]) [facility] ([facility]) [address] [place] [address] Monocytes/100 WBC (Bld) 8.7 % Normal 5.0-13.0 [facility] Comment on above: Performed By: #### L AB296, [id number], [id number] #### Environmental Officer: ROLA GARCIA ([id number]) [facility] ([facility]) [address] [place] [address] NEUTROPHILS ABSOLUTE 5.8 10*3/uL Normal 1.8-7.5 [facility] Comment on above: Performed By: #### [place] AB296, [id number], [id number] #### Environmental Officer: ROLA GARCIA ([id number]) [facility]) [address] [place] [address] Neutrophils/100 WBC (Bld) 68.4 % Normal 38.0-82.0 [facility] Comment on above: Performed By: #### [place] AB296, [id number], ZQU004 #### Environmental Officer: ROLA GARCIA ([id number]) [facility] ([facility]) [address] [place] [address] NRBC 0.0 /100 WBCs Normal 0.0-2.0 [facility] Comment on above: Performed By: #### [place] AB296, [id number], [id number] #### Environmental Officer: ROLA GARCIA ([id number]) [facility]) [address] [place] [address] Platelet mean volume (Bld) [Entitic vol] 9.6 fL Normal 9.0-12.7 [facility] Comment on above: Performed By: #### [place] AB296, [id number], [id number] #### Environmental Officer: ROLA GARCIA ([id number]) [facility] ([facility]) [address] [place] [address] Platelets (Bld) [#/Vol] 212 10*3/uL Normal 140-440 [facility] Comment on above: Performed By: #### [place] AB296, [id number], [id number] #### Environmental Officer: ROLA GARCIA ([id number]) [facility] ([facility]) [address] [place] [address] RBC (Bld) [#/Vol] 2.59 10*6/uL Low 4.40-5.90 [facility] Comment on above: Performed By: #### L AB296, [id number], [id number] #### Environmental Officer: ROLA GARCIA ([id number]) [facility] ([facility]) [address] [place] [address] WBC (Bld) [#/Vol] 8.5 10*3/uL Normal 3.6-10.7 [facility] Comment on above: Performed By: #### L AB296, [id number], [id number] #### Environmental Officer: ROLA GARCIA ([id number]) [facility]) [address] [place] [address] Basophils (Bld) [#/Vol] 0.1 10*3/uL Normal 0.0-0.2 [facility] Comment on above: Performed By: #### L [id number] ####Environmental Officer: ROLA GARCIA ([id number])[facility])[address] [place] [address] Basophils/100 WBC (Bld) 0.4 % Normal 0.0-2.0 [facility] Comment on above: Performed By: #### L [id number] ####Environmental Officer: ROLA GARCIA ([id number])[facility])[address] [place] [address] Eosinophils (Bld) [#/Vol] 0.0 10*3/uL Normal 0.0-0.5 [facility] Comment on above: Performed By: #### L [id number] ####Environmental Officer: ROLA GARCIA ([id number])[facility])[address] [place] [address] Eosinophils/100 WBC (Bld) 0.2 % Normal 0.0-6.0 [facility] Comment on above: Performed By: #### L [id number] ####Environmental Officer: ROLA GARCIA ([id number])[facility])[address] [place] [address] Erythrocyte distribution width (RBC) [Ratio] 13.1 % Normal 11.5-15.0 [facility] Comment on above: Performed By: #### L [id number] ####Environmental Officer: ROLA GARCIA ([id number])[facility])[address] [place] [address] Hematocrit (Bld) [Volume fraction] 34.0 % Low 40.0-52.0 [facility] Comment on above: Performed By: #### L [id number] ####Environmental Officer: ROLA GARCIA ([id number])[facility])[address] [place] [address] Hemoglobin (Bld) [Mass/Vol] 11.0 g/dL Low 13.0-18.0 [facility] Comment on above: Performed By: #### L [id number] ####Environmental Officer: ROLA GARCIA ([id number])[facility])[address] [place] [address] IMMATURE GRANS % 0.4 % Normal 0.0-2.0 [facility] Comment on above: Performed By: #### L [id number] ####Environmental Officer: ROLA GARCIA ([id number])[address] IMMATURE GRANS ABSOLUTE 0.1 10*3/uL High <0.1 [facility] Comment on above: Performed By: #### L [id number] ####Environmental Officer: ROLA GARCIA ([id number])[facility])[address] [place] [address] Lymphocytes (Bld) [#/Vol] 1.1 10*3/uL Normal 1.0-4.3 [facility] Comment on above: Performed By: #### L [id number] ####Environmental Officer: ROLA GARCIA ([id number])[facility])[address] [place] [address] Lymphocytes/100 WBC (Bld) 9.2 % Low 15.0-45.0 [facility] Comment on above: Performed By: #### L [id number] ####Environmental Officer: ROLA GARCIA ([id number])[facility])[address] [place] [address] MCH (RBC) [Entitic mass] 30.5 pg Normal 26.0-34.0 [facility] Comment on above: Performed By: #### L [id number] ####Environmental Officer: ROLA GARCIA ([id number])[facility])[address] [place] [address] MCHC 32.4 % Normal 30.5-36.0 [facility] Comment on above: Performed By: #### L [id number] ####Environmental Officer: ROLA GARCIA ([id number])[facility])[address] [place] [address] MCV (RBC) [Entitic vol] 94.2 fL Normal 77.0-99.0 [facility] Comment on above: Performed By: #### L [id number] ####Environmental Officer: ROLA GARCIA ([id number])[facility])[address] [place] [address] Monocytes (Bld) [#/Vol] 0.7 10*3/uL Normal 0.0-0.9 [facility] Comment on above: Performed By: #### L [id number] ####Environmental Officer: ROLA GARCIA ([id number])[facility] ([facility])[address] [place] [address] Monocytes/100 WBC (Bld) 6.2 % Normal 5.0-13.0 [facility] Comment on above: Performed By: #### L [id number] ####Environmental Officer: ROLA GARCIA ([id number])[facility])[address] [place] [address] NEUTROPHILS ABSOLUTE 9.8 10*3/uL High 1.8-7.5 [facility] Comment on above: Performed By: #### L [id number] ####Environmental Officer: ROLA GARCIA ([id number])[facility])[address] [place] [address] Neutrophils/100 WBC (Bld) 83.6 % High 38.0-82.0 [facility] Comment on above: Performed By: #### L [id number] ####Environmental Officer: ROLA GARCIA ([id number])[facility] ([facility])[address] [place] [address] NRBC 0.0 /100 WBCs Normal 0.0-2.0 [facility] Comment on above: Performed By: #### L [id number] ####Environmental Officer: ROLA GARCIA ([id number])[facility])[address] [place] [address] Platelet mean volume (Bld) [Entitic vol] 10.1 fL Normal 9.0-12.7 [facility] Comment on above: Performed By: #### L [id number] ####Environmental Officer: ROLA GARCIA ([id number])[facility])[address] [place] [address] Platelets (Bld) [#/Vol] 312 10*3/uL Normal 140-440 [facility] Comment on above: Performed By: #### L [id number] ####Environmental Officer: ROLA GARCIA ([id number])[facility] ([facility])[address] [place] [address] RBC (Bld) [#/Vol] 3.61 10*6/uL Low 4.40-5.90 [facility] Comment on above: Performed By: #### L [id number] ####Environmental Officer: ROLA GARCIA ([id number])[facility])[address] [place] [address] WBC (Bld) [#/Vol] 11.7 10*3/uL High 3.6-10.7 [facility] Comment on above: Performed By: #### L [id number] ####Environmental Officer: ROLA GARCIA ([id number])[facility])[address] [place] [address] COMPLETE URINALYSISon 2023 BACTERIA (#/HPF) IN URINE Few Abnormal Negative [facility] Comment on above: Performed By: #### L [id number] ####Environmental Officer: ROLA GARCIA ([id number])[facility])[address] [place] [address] [place] BILIRUBIN, TOTAL PRESENCE IN URINE Negative Normal Negative [facility] Comment on above: Performed By: #### L [id number] ####Environmental Officer: ROLA GARCIA ([id number])[facility])[address] [place] [address] Clarity (U) Clear Normal Clear [facility] Comment on above: Performed By: #### L [id number] ####Environmental Officer: ROLA GARCIA ([id number])[facility])[address] [place] [address] Color (U) Yellow Normal Lt. Yellow [facility] Comment on above: Performed By: #### L [id number] ####Environmental Officer: ROLA GARCIA ([id number])[facility])[address] [place] [address] GLUCOSE (MG/DL) IN URINE >1,000 Abnormal Normal (<70) [facility] Comment on above: Performed By: #### L [id number] ####Environmental Officer: ROLA GARCIA ([id number])[facility])[address] [place] [address] HEMOGLOBIN PRESENCE IN URINE >1.0 Abnormal Negative [facility] Comment on above: Performed By: #### L [id number] ####Environmental Officer: ROLA GARCIA ([id number])[facility])[address] [place] [address] HYALINE CASTS (#/LPF) IN URINE SEDIMENT BY MICROSCOPY 3-5 Abnormal Negative [facility] Comment on above: Performed By: #### L [id number] ####Environmental Officer: ROLA GARCIA ([id number])[facility])[address] [place] [address] Ketones Ql (U) Negative Normal Negative [facility] Comment on above: Performed By: #### L [id number] ####Environmental Officer: ROLA GARCIA ([id number])[facility])[address] [place] [address] LEUKOCYTE ESTERASE PRESENCE IN URINE BY TEST STRIP 75 Jose Rafael/uL Abnormal Negative [facility] Comment on above: Performed By: #### L [id number] ####Environmental Officer: ROLA GARCIA ([id number])[facility] ([facility])[address] [place] [address] [place] MUCUS (#/LPF) IN URINE SEDIMENT Few Normal Negative [facility] Comment on above: Performed By: #### L [id number] ####Environmental Officer: ROLA GARCIA ([id number])[facility] ([facility])[address] [place] [address] [place] NITRITE PRESENCE IN URINE Negative Normal Negative [facility] Comment on above: Performed By: #### L [id number] ####Environmental Officer: ROLA GARCIA ([id number])[facility] ([facility])[address] [place] [address] pH (U) 7.0 [pH] Normal 5.0-8.0 [facility] Comment on above: Performed By: #### L [id number] ####Environmental Officer: ROLA GARCIA ([id number])[facility] ([facility])[address] [place] [address] Protein (U) [Mass/Vol] 70 mg/dL Abnormal Negative [facility] Comment on above: Performed By: #### L [id number] ####Environmental Officer: ROLA GARCIA ([phone])[facility] ([facility])[address] [place] [address] RBC (#/HPF) IN URINE SEDIMENT >100 Abnormal 0-2 [facility] Comment on above: Performed By: #### L [id number] ####Environmental Officer: ROLA GARCIA ([id number])[facility] ([facility])[address] [place] [address] Specific gravity (U) [Rel density] 1.022 Normal 1.005-1.03 0 [facility] Comment on above: Performed By: #### L [id number] ####Environmental Officer: ROLA GARCIA ([id number])[facility] ([facility])[address] [place] [address] SQUAMOUS EPITHELIAL CELLS (#/HPF) IN URINE SEDIMENT Negative Normal 3-5 [facility] Comment on above: Performed By: #### L [id number] ####Environmental Officer: ROLA GARCIA ([phone])[facility])[address] [place] [address] UROBILINOGEN (MG/DL) IN URINE Normal Normal Normal (0-1) [place] [facility] Comment on above: Performed By: #### L [id number] ####Environmental Officer: ROLA GARCIA ([id number])[facility] ([facility])[address] [place] [address] WBC (LEUKOCYTE) (#/HPF) IN URINE SEDIMENT 26-50 Abnormal 0-5 [facility] Comment on above: Performed By: #### L [id number] ####Environmental Officer: ROLA GARCIA ([id number])[facility] ([facility])[address] [place] [address] COMPREHENSIVE METABOLIC PANE Juan J 07-25-2024 Albumin [Mass/Vol] 2.1 g/dL Low 3.5-5.0 [facility] Comment on above: Performed By: #### L AB113, [id number], [id number] ####Environmental Officer: ROLA GARCIA ([id number])[facility] ([facility])[address] [place] [address] ALP [Catalytic activity/Vol] 59 U/L Normal 38-126 [facility] Comment on above: Performed By: #### L AB113, [id number], [id number] ####Environmental Officer: ROLA GARCIA ([id number])[facility] ([facility])[address] [place] [address] ALT [Catalytic activity/Vol] 8 U/L Normal 0-49 [facility] Comment on above: Performed By: #### L AB113, [id number], LAB17 ####Environmental Officer: ROLA GARCIA ([id number])[facility] ([facility])[address] [place] [address] Anion gap [Moles/Vol] 11 mmol/L Normal 3-13 [facility] Comment on above: Performed By: #### L AB113, [id number], LAB17 ####Environmental Officer: ROLA GARCIA ([id number])[facility] ([facility])[address] [place] [address] AST [Catalytic activity/Vol] 12 U/L Low 15-46 [facility] Comment on above: Performed By: #### L AB113, [id number], LAB17 ####Environmental Officer: ROLA GARCIA ([id number])[facility] ([facility])[address] [place] [address] Bilirubin [Mass/Vol] 0.3 mg/dL Normal 0.2-1.3 [facility] Comment on above: Performed By: #### [place] ABRoxi, [id number], LAB17 ####Environmental Officer: ROLA GARCIA ([id number])[facility])[address] [place] [address] Calcium [Mass/Vol] 7.9 mg/dL Low 8.4-10.4 [facility] Comment on above: Performed By: #### [place] AB113, [id number], LAB17 ####Environmental Officer: ROLA GARCIA ([id number])[facility] ([facility])[address] [place] [address] [place] Chloride [Moles/Vol] 105 mmol/L Normal 98-107 [facility] Comment on above: Performed By: #### [place] ABRoxi, [id number], LAB17 ####Environmental Officer: ROLA GARCIA ([id number])[facility])[address] [place] [address] [place] CO2 [Moles/Vol] 14 mmol/L Low 22-30 [facility] Comment on above: Performed By: #### L AB113, [id number], LAB17 ####Environmental Officer: ROLA GARCIA ([id number])[facility])[address] [place] [address] Creatinine [Mass/Vol] 1.01 mg/dL Normal 0.66-1.25 [facility] Comment on above: Performed By: #### L AB113, [id number], LAB17 ####Environmental Officer: ROLA GARCIA ([id number])[facility] ([facility])[address] [place] [address] [place] GLOMERULAR FILTRATION RATE ML/MIN/1.73 SQ M.PREDICTED 82.0 mL/min/1.73m*2 Normal >60.0 [facility] Comment on above: Result Comment: Calc ulation based on the Chronic Kidney Disease Epidemiology Collaboration (CKD-EPI) equation refit without adjustment for race Performed By: #### [place] ABRoxi, [id number], LAB17 ####Environmental Officer: ROLA GARCIA ([id number])[facility] ([facility])[address] [place] [address] Glucose [Mass/Vol] 92 mg/dL Normal 70-100 [facility] Comment on above: Performed By: #### [place] AB113, [id number], LAB17 ####Environmental Officer: ROLA GARCIA ([id number])[facility])[address] [place] [address] [place] Potassium [Moles/Vol] 4.1 mmol/L Normal 3.5-5.1 [facility] Comment on above: Performed By: #### [place] SHARIF, [id number], LAB17 ####Environmental Officer: ROLA GARCIA ([id number])[facility])[address] [place] [address] Protein [Mass/Vol] 4.1 g/dL Low 6.3-8.2 [facility] Comment on above: Performed By: #### [place] ABRoxi, [id number], LAB17 ####Environmental Officer: ROLA GARCIA ([id number])[facility] ([facility])[address] [place] [address] [place] Sodium [Moles/Vol] 130 mmol/L Low 135-145 [facility] Comment on above: Performed By: #### [place] AB113, [id number], LAB17 ####Environmental Officer: ROLA GARCIA ([id number])[facility])[address] [place] [address] [place] Urea nitrogen [Mass/Vol] 15 mg/dL Normal 9-20 [facility] Comment on above: Performed By: #### L AB113, [id number], LAB17 ####Environmental Officer: ROLA GARCIA ([id number])[facility] ([facility])[address] [place] [address] CREATININE, URINE, RANDOMon 07-25-2024 CREATININE, URINE 75.8 mg/dL Normal No Range [facility] Comment on above: Performed By: #### L AB384, [id number] ####Environmental Officer: ROLA GARCIA ([id number])[facility] ([facility])[address] [place] [address] CRP [Mass/Vol]on 07-25-2024 Interpretation and review of laboratory results Abnormal [facility] CT ABDOMEN PELVIS WO IV CONT RASTon 07-25-2024 CT ABDOMEN PELVIS WO IV CONTRAST Patient Name: NICK SAN : 1960 Exam Date/Time: 07/25/2024 18:43 Procedure: CT ABDOMEN [...] normal. Small fat-containing umbilical hernia containing fluid. Pryor catheter in the bladder. IMPRESSION: Small stone in each kidney. Small fat-containing umbilical hernia containing fluid. Report Dictated on Electronically Signed By: Deepak Pennington MD Electronically Signed Date/Time: 07/25/2024 6:46 PM EDT Normal [facility] CT Abdomen WO contraston Small stone in each kidney. Small fat-containing umbilical hernia containing fluid. Report Dictated on Electronically Signed By: Deepak Pennington MD Electronically Signed Date/Time: 07/25/2024 6:46 PM EDT [facility] Patient Name: NICK CHANG DOB: 1960 Exam Date/Time: 07/25/2024 18:43 Procedure: CT ABDOMEN [...] normal. Small fat-containing umbilical hernia containing fluid. Pryor catheter in the bladder. [facility] Deepak Pennington MD - 07/25/2024 Patient Name: NICK SAN : 1960 Exam Date/Time: 07/25/2024 18:43 Procedure: CT ABDOMEN [...] normal. Small fat-containing umbilical hernia containing fluid. Pryor catheter in the bladder. IMPRESSION: Small stone in each kidney. Small fat-containing umbilical hernia containing fluid. Report Dictated on Electronically Signed By: Deepak Pennington MD Electronically Signed Date/Time: 07/25/2024 6:46 PM EDT [facility] Radiology Study observation (narrative) [facility] Comprehensive metabolic 1998 panelon 07-25-2024 Albumin [Mass/Vol] 2.1 g/dL Low 3.5 - 5.0 g/dL [facility] ALP [Catalytic activity/Vol] 59 U/L 38 - 126 U/L [facility] ALT [Catalytic activity/Vol] 8 U/L 0 - 49 U/L [facility] Anion gap [Moles/Vol] 11 mmol/L 3 - 13 mmol/L [facility] AST [Catalytic activity/Vol] 12 U/L Low 15 - 46 U/L [facility] Bilirubin [Mass/Vol] 0.3 mg/dL 0.2 - 1 .3 mg/dL [facility] Calcium [Mass/Vol] 7.9 mg/dL Low 8.4 - 10. 4 mg/dL [facility] Chloride [Moles/Vol] 105 mmol/L 98 - 10 7 mmol/L [facility] CO2 [Moles/Vol] 14 mmol/L Low 22 - 30 mmol/L [facility] Creatinine [Mass/Vol] 1.01 mg/dL 0.66 - 1.25 mg/dL [facility] GFR/1.73 sq M.predicted (S/P/Bld) [Vol rate/Area] 82 mL/min - PINF [facility] Comment on above: Calculation based on the Chronic Kidney Disease Epidemiology Collaboration (CKD-EPI) equation refit without adjustment for race Glucose [Mass/Vol] 92 mg/dL 70 - 100 mg/dL [facility] Interpretation and review of laboratory results Abnormal [facility] Potassium [Moles/Vol] 4.1 mmol/L 3.5 - 5.1 mmol/L [facility] Protein [Mass/Vol] 4.1 g/dL Low 6.3 - 8.2 g/dL [facility] Sodium [Moles/Vol] 130 mmol/L Low 135 - 145 mmol/L [facility] Urea nitrogen [Mass/Vol] 15 mg/dL 9 - 20 mg/dL [facility] Consulton 07-25-2024 Consult Pharmacy Managed Van comycin Dosing Service Consult Note Consult Date: 07/25/24 Patient Name: Nick San Allergies: Hydrocodone-acetaminophen and Tramadol Age: 64 y.o. [...] creatinine, and vancomycin levels interfaced automatically to [employer] and data has been analyzed and interpreted. [...] DATE: 07/25/24 TIME: 6:20 PM Vonnie Holguin [facility] Clinical Pharmacist Available via Secure Chat Creatinine (U) [Mass/Vol]on 07-25-2024 CREATININE, URINE 75.8 mg/dL No Range [facility] ECG 12-LEADon 07-25-2024 ECG 12-LEAD IMPRESSION: Sinus or ectopic atrial rhythm Left bundle branch block No ST segment elevations No old ECG Electronically Signed On 07-25-2024 18:42:05 EDT by Elroy Vega ED Nursing Noteon 07-25-2024 ED Nursing Note Patient transported with RN to . A&Ox4, stating 96% on RA. Lisa Pelayo RN 07/25/24 6035 ED Nursing Note Preventative foam kb rder dressing placed on sacrum and heels. Patient agreeable to being turned with wedges. Declined gown. Lisa Pelayo RN 07/25/242231 ED Nursing Note Admitting at bedside . Kamilla Ratliff RN 07/25/242208 ED Nursing Note Patient cot switched to inpatient hospital bed. Lisa Pelayo RN 07/25/242100 ED Nursing Note Pt declined wedges w hen offered. Lisa Pelayo RN 07/25/242205 ED Nursing Note Report from JASON Hollingsworth. Kamilla Ratliff RN 07/25/24 192 ED Nursing Note Report to JASON Hollingsworth . Kamilla Ratliff RN 07/25/24 181 ED Nursing Note Meal tray at bedside . Kamilla Ratliff RN 07/25/24 1804 ED Nursing Note Patient and family p rovided menu and hospital phone to order dinner tray. Kamilla Ratliff RN 07/25/24 1722 ED Nursing Note Report from JASON Hollingsworth. Kamilla Ratliff RN 07/25/24 1702 ED Nursing Note Lab called with lact ic acid 4.4, same reported to Dr. Guillen and Dr. Escalante via secure chat Jade Sosa RN 07/25/24 1549 ED Nursing Note Coude catheter place d in pt per Dr. Escalante for urinary retention. Urine was clear and yellow with no blood or clots. Urine sample sent off to lab. Edel Adorno RN 07/25/24 1538 ED Nursing Note 225 mLs of urine in the bladder. Dr. Escalante notified about result. Edel Adorno RN 07/25/24 1518 ED Nursing Note Pt tried to urinate into urinal but was un able to go. Edel Adorno RN 07/25/24 1402 ED Provider Noteon ED Provider Note Emergency Department Encounter [facility] EMERGENCY DEPT Patient: Nick San : 1960 Date of Evaluation: 07/25/2024 ED Supervising Physician: Patric Guillen MD I independently examined and evaluated Nick San. This will serve as my Supervisory note and shared attestation. I did perform a substantive portion of the visit including all aspects of the Medical Decision Making. I wore appropriate PPE for the entirety of this encounter. History: In brief, Nick San is a 64 y.o. male that presents to the emergency department complaining of blood in his urine. The patient has had multiple hospitalizations for acute kidney injury and issues with urination at [facility]. Patient is somewhat confused. Is not [...] 225 cc of urine inside the bladder. Pryor catheter will be placed. ED testing and [...] for clarification.) Patric Guillen MD [employer] Patric Guillen MD 07/25/24 1526 ED Provider Note EMERGENCY DEPARTMENT ENCOUNTER Pt Name: Nick San Birthdate 1960 Date of evaluation: 07/25/2024 ED [...] the entirety of this encounter. HPI Nick San is a 64 y.o. who presents to [...] Insecurity: No Food Insecurity (07/07/2024) Received from [facility] Hunger Vital Sign Worried About Running Out of Food in the Last Year: Never true Ran Out of Food in the Last Year: Never true Transportation Needs: No Transportation Needs (07/07/2024) Received from [facility] PRAPARE - Transportation Lack of Transportation (Medical): No Lack of Transportation (Non-Medical): No Housing Stability: Low Risk (07/07/2024) Received from [facility] Housing Stability Vital Sign Unable to Pay for Housing in the Last Year: No Number of Times Moved in the Last Year: 1 Homeless in the Last Year: No SCREENINGS [place] Coma Scale Best Eye Response: Spontaneous Best Verbal Response: Oriented Best Motor Response: Follows commands [place] Coma Scale Score: 15 PHYSICAL EXAM ED [...] alert and oriented to person, place, and ti (more content not included)... Normal [facility] ESR (Bld) [Velocity]on 07-25 Interpretation and review of laboratory results Normal [facility] FERRITINon 07-25-2024 Ferritin [Mass/Vol] 198 ng/mL Normal 18-464 [facility] Comment on above: Performed By: #### L AB239 #### Environmental Officer: ROLA GARCIA ([id number]) [facility] ([facility]) [address] [place] [address] Ferritin [Mass/Vol]on 2023 Interpretation and review of laboratory results Normal [facility] HEMOGLOBIN A1Con 07-25-2024 Glucose [Mass/Vol] 128 mg/dL Normal [facility] Comment on above: Performed By: #### L AB239 #### Environmental Officer: ROLA [id number]) [facility] ([facility]) [address] [place] [address] HbA1c (Bld) [Mass fraction] 6.1 % High <5.7 [facility] Comment on above: Result Comment: Norm al less than 5.7% Prediabetes 5.7% to 6.4% Diabetes 6.5% or higher --HgbA1C levels may not be accurate in patients who have renal disease, received recent blood transfusions, are anemic, or who have dyshemoglobinemia. Performed By: #### L AB239 #### Environmental Officer: ROLA [id number]) [facility] ([facility]) [address] [place] [address] HEPATIC FUNCTION PANELon Albumin [Mass/Vol] 4.0 g/dL Normal 3.5-5.0 [facility] Comment on above: Performed By: #### L AB239 #### Environmental Officer: ROLA [id number]) [facility] ([facility]) [address] [place] [address] ALP [Catalytic activity/Vol] 84 U/L Normal 38-126 [facility] Comment on above: Performed By: #### L AB239 #### Environmental Officer: ROLA GARCIA ([id number]) [facility] [address] [place] [address] [place] ALT [Catalytic activity/Vol] 15 U/L Normal 0-49 [facility] Comment on above: Performed By: #### L AB239 #### Environmental Officer: ROLA GARCIA ([id number]) [facility] ([facility]) [address] [place] [address] AST [Catalytic activity/Vol] 22 U/L Normal 15-46 [facility] Comment on above: Performed By: #### L AB239 #### Environmental Officer: ROLA GARCIA ([id number]) [facility] ([facility]) [address] [place] [address] Bilirubin [Mass/Vol] 0.7 mg/dL Normal 0.2-1.3 [facility] Comment on above: Performed By: #### L AB239 #### Environmental Officer: ROLA GARCIA ([id number]) [facility] ([facility]) [address] [place] [address] Bilirubin.indirect [Mass/Vol] 0.0 mg/dL Normal 0.0-0.3 [facility] Comment on above: Performed By: #### L AB239 #### Environmental Officer: ROLA GARCIA ([id number]) [facility] ([facility]) [address] [place] [address] Protein [Mass/Vol] 6.7 g/dL Normal 6.3-8.2 [facility] Comment on above: Performed By: #### L AB239 #### Environmental Officer: ROLA GARCIA ([id number]) [facility] ([facility]) [address] [place] [address] Hepatic function 2000 panelo n 07-25-2024 Albumin [Mass/Vol] 4 g/dL 3.5 - 5.0 g/dL [facility] ALP [Catalytic activity/Vol] 84 U/L 38 - 126 U/L [facility] ALT [Catalytic activity/Vol] 15 U/L 0 - 49 U/L [facility] AST [Catalytic activity/Vol] 22 U/L 15 - 46 U/L [facility] Bilirubin [Mass/Vol] 0.7 mg/dL 0.2 - 1 .3 mg/dL [facility] Bilirubin.conjugated [Mass/Vol] 0 mg/dL 0.0 - 0.3 mg/dL [facility] Interpretation and review of laboratory results Normal [facility] Protein [Mass/Vol] 6.7 g/dL 6.3 - 8.2 g/dL [facility] IDNon 07-25-2024 IDN The patient is Moder ately Stable - Low risk of patient condition declining or worsening The patient's goals for the shift include Safety The clinical goals for the shift include Safety Normal [facility] LACTIC ACID WITH REFLEXon Lactate [Moles/Vol] 1.1 mmol/L Normal 0.7-2.0 [facility] Comment on above: Performed By: #### L [id number] ####Environmental Officer: ROLA GARCIA ([id number])[address] Lactate [Moles/Vol] 4.4 mmol/L Critically high 0.7-2.0 [facility] Comment on above: Performed By: #### L [id number] ####Environmental Officer: ROLA GARCIA ([id number])[address] Laboratory - Chemistry and C hemistry - challengeon 07-25-2024 Magnesium [Mass/Vol] 1.8 mg/dL 1.6 - 2 .3 mg/dL [facility] CRP [Mass/Vol] 24.1 mg/L High NINF - 10.0 mg/L [facility] Ferritin [Mass/Vol] 198 ng/mL 18 - 464 ng/mL [facility] Procalcitonin [Mass/Vol] 0.11 ng/mL High 0.00 - 0.09 ng/mL [facility] Average glucose Estimated from glycated hemoglobin (Bld) [Mass/Vol] 128 mg/dL [facility] Urea nitrogen (U) [Mass/Vol] 403 mg/dL No Range [facility] Lactate [Moles/Vol] 1.1 mmol/L 0.7 - 2. 0 mmol/L [facility] Glucose [Mass/Vol] 134 mg/dL High 70 - 100 mg/dL [facility] Laboratory - Chemistry and C hemistry - challengeOrdered By: Malachi Mack on 07-25-2024 Lactate [Moles/Vol] 4.4 mmol/L Critically high 0.7 - 2.0 mmol/L [facility] Laboratory - Hematology and Cell countson 07-25-2024 ESR (Bld) [Velocity] [facility] HbA1c (Bld) [Mass fraction] 6.1 % High NINF - 5.7 % [facility] Comment on above: Normal less than 5.7 % Prediabetes 5.7% to 6.4% Diabetes 6.5% or higher --HgbA1C levels may not be accurate in patients who have renal disease, received recent blood transfusions, are anemic, or who have dyshemoglobinemia. MAGNESIUMon 07-25-2024 Magnesium [Mass/Vol] 1.8 mg/dL Normal 1.6-2.3 [facility] Comment on above: Performed By: #### L AB113, [id number], LAB17 ####Environmental Officer: ROLA GARCIA ([id number])[address] No Panel Informationon 07-25 Interpretation and review of laboratory results Normal [facility] Sinus or ectopic atr ial rhythm Left bundle branch block No ST segment elevations No old ECG Electronically Signed On 07-25-2024 18:42:05 EDT by Elroy Vega CV Elroy Mcclelland MD - 07/25/2024 IMPRESSION: Sinus or ectopic atrial rhythm Left bundle branch block No ST segment elevations No old ECG Electronically Signed On 07-25-2024 18:42:05 EDT by Elroy Vega [facility] Interpretation and review of laboratory results Abnormal [facility] Interpretation and review of laboratory results Normal [facility] Interpretation and review of laboratory results Abnormal [employer] Performed by: [facility] [address] [facility], [address] [facility] [address] CLIA ID: [id number] [employer] No Panel InformationOrdered By: Elroy Vega on 07-25-2024 P [place] -66 degrees [employer] Work Phone: NV Interval 172 ms [employer] Work Phone: QRS [place] -59 degrees [employer] Work Phone: [phone] QRSD Interval 146 ms [employer] Work Phone: [phone] QT Interval 446 ms [employer] Work Phone: QTC Interval 455 ms [employer] Work Phone: T Wave [place] 80 degrees [employer] Work Phone: [employer] Work Phone: No Panel InformationOrdered By: Malachi Mack on 07-25-2024 Interpretation and review of laboratory results Abnormal [facility] [employer] PHOSPHORUSon 07-25-2024 Phosphate [Mass/Vol] 2.7 mg/dL Normal 2.5-4.5 [facility] [employer] [facility] Comment on above: Performed By: #### L AB113, [id number], LAB17 ####Environmental Officer: ROLA GARCIA ([id number])[facility])[address] [place] [address] [place] PROCALCITONIN TESTon 024 PROCALCITONIN 0.11 ng/mL High 0.00-0.09 [facility] [employer] [facility] Comment on above: Result Comment: ORDE R COMMENTS: PCT <0.50 = Low risk of severe sepsis and/or septic shock. PCT >2.00 = High risk of severe sepsis and/or septic shock. Performed By: #### L [id number] ####Environmental Officer: ROLA GARCIA ([id number])[facility])[address] [place] [address] Phosphate [Moles/Vol]on 07-06 Phosphate [Mass/Vol] 2.7 mg/dL 2.5 - 4 .5 mg/dL [facility] Procalcitonin [Mass/Vol]on 1 Interpretation and review of laboratory results Abnormal [facility] PCT <0.50 = Low risk of severe sepsis and/or septic shock. PCT >2.00 = High risk of severe sepsis and/or septic shock. [facility] Progress Noteon 07-25-2024 Progress Note Result reviewed. No further treatment needed Normal [facility] RETICULOCYTESon 07-25-2024 Reticulocytes/100 RBC (Bld) 1.40 % Normal [facility] Comment on above: Result Comment: Newb orn < 5% Adults 0.4 - 2.0% Performed By: #### L AB296, [id number], [id number] #### Environmental Officer: ROLA GARCIA ([id number]) [facility]) [address] [place] [address] Reticulocytes panel (Bld)on 07-25-2024 Reticulocytes/100 RBC (Bld) 1.4 % [facility] Comment on above: < 5% Adults 0.4 - 2.0% [facility] SEDIMENTATION RATE, AUTOMATE Don 07-25-2024 SEDIMENTATION RATE, ERYTHROCYTE <1 Normal 0-10 [facility] Comment on above: Performed By: #### L AB296, [id number], [id number] #### Environmental Officer: ROLA GARCIA ([id number]) [facility]) [address] [place] [address] UREA NITROGEN, URINEon 07-25 UREA NITROGEN, URINE 403 mg/dL Normal No Range [facility] Comment on above: Performed By: #### L AB384, [id number] ####Environmental Officer: ROLA GARCIA ([id number])[facility])[address] [place] [address] URINE CULTUREon 07-25-2024 Bacteria identified Cx Nom (U) URINE CULTURE (A) Reference SERRATIA MARCESCENS >100,000 [...] = Non-susceptible NO = No Interpretation ] Normal [facility] Comment on above: Performed By: #### L AB239 #### Environmental Officer: ORLA GARCIA ([id number]) [facility] ([facility]) [address] [place] [address] Urinalysis complete panel (U )Ordered By: Liyah Simpson on 07-25-2024 Bacteria LM.HPF (Urine sed) [#/Area] Few Abnormal Negative /HPF [facility] Bilirubin Ql (U) Negative Negative mg/dL [facility] Clarity (U) Clear Clear [facility] Color (U) Yellow Lt. Yellow [facility] Epithelial cells.squamous LM.HPF (Urine sed) [#/Area] Negative [facility] Glucose Ql (U) >1,000 Abnormal Normal (<70) mg/dL [facility] Hemoglobin Ql (U) >1.0 Abnormal Negative mg/dL [facility] Hyaline casts Auto (Urine sed) [#/Area] 3-5 Abnormal Negative /LPF [facility] Interpretation and review of laboratory results Abnormal [facility] Ketones (U) [Mass/Vol] Negative Negat kirby mg/dL [facility] Leukocyte esterase Test strip Ql (U) 75 Abnormal Negative Jose Rafael/uL [facility] Mucus LM.HPF (Urine sed) [#/Area] Few Negative /LPF [facility] Nitrite Ql (U) Negative Negative [facility] pH (U) 7.0 [pH] 5.0 - 8.0 pH [facility] Protein (U) [Mass/Vol] 70 mg/dL Abnormal Negative [facility] RBC LM.HPF (Urine sed) [#/Area] /[HPF] Abnormal [facility] Specific gravity (U) [Rel density] 1.022 1.005 - 1.030 [facility] Urobilinogen (U) [Mass/Vol] Normal Normal (0-1) mg/dL [facility] WBC LM.HPF (Urine sed) [#/Area] 26-50 Abnormal [facility] Vital signsOrdered By: Elroy Vega on 07-25-2024 Heart rate 62 /min bpm [facility] [employer] Work Phone: XR Chest Single viewon 07-25 Normal examination. Report Dictated on Electronically Signed By: Deepak Pennington MD Electronically Signed Date/Time: 07/25/2024 5:51 PM EDT [facility] [employer] Patient Name: NICK CHANG : 1960 Exam Date/Time: 07/25/2024 17:49 Procedure: XR CHEST 1 VIEW Ordering Provider: GUILLEN MICHAEL Reason For Exam: SOB Chest one view History: Short of breath The heart, mediastinum, pulmonary vasculature, lungs and pleural spaces are normal. [facility] Deepak Pennington MD - 07/25/2024 Patient Name: NICK SAN : 1960 Exam Date/Time: 07/25/2024 17:49 Procedure: XR CHEST 1 VIEW Ordering Provider: GUILLEN MICHAEL Reason For Exam: SOB Chest one view History: Short of breath The heart, mediastinum, pulmonary vasculature, lungs and pleural spaces are normal. IMPRESSION: Normal examination. Report Dictated on Electronically Signed By: Deepak Pennington MD Electronically Signed Date/Time: 07/25/2024 5:51 PM EDT [facility] Radiology Study observation (narrative) [facility] XR Chest Single viewOrdered By: Deepak Pennington on 07-25-2024 [facility] [employer] Work Phone: XR Knee - left 3 Viewson 1. Left total knee arthroplasty. 2. Small joint effusion. Report Dictated on Electronically Signed By: Hilary Guerin MD Electronically Signed Date/Time: 07/25/2024 6:28 PM EDT [facility] Patient Name: NICK CHANG : 1960 Exam Date/Time: 07/25/2024 18:22 Procedure: XR KNEE 3 VIEWS LEFT Ordering Provider: GUILLEN MICHAEL Reason For Exam: Post knee replacement, concern for osteo INDICATION: Post knee replacement; concern for infection. VIEWS: Left knee AP, tunnel view, lateral view-3 images COMPARISON: None. FINDINGS: There is a total knee arthroplasty. There is a small joint effusion. There has been resurfacing upon the posterior aspect of the patella with hardware. There is no lucency surrounding the hardware to suggest loosening. There is no discrete fracture. The bone mineralization is normal. [facility] Hilary Guerin MD - 07/25/2024 Patient Name: NICK SAN : 1960 Exam Date/Time: 07/25/2024 18:22 Procedure: XR KNEE 3 VIEWS LEFT Ordering Provider: GUILLEN MICHAEL Reason For Exam: Post knee replacement, concern for osteo INDICATION: Post knee replacement; concern for infection. VIEWS: Left knee AP, tunnel view, lateral view-3 images COMPARISON: None. FINDINGS: There is a total knee arthroplasty. There is a small joint effusion. There has been resurfacing upon the posterior aspect of the patella with hardware. There is no lucency surrounding the hardware to suggest loosening. There is no discrete fracture. The bone mineralization is normal. IMPRESSION: 1. Left total knee arthroplasty. 2. Small joint effusion. Report Dictated on Electronically Signed By: Hilary Guerin MD Electronically Signed Date/Time: 07/25/2024 6:28 PM EDT [facility] Radiology Study observation (narrative) [employer] XR Knee - left 3 ViewsOrdere d By: Hilary Guerin on 07-25-2024 [employer] Work Phone: THERAPY NTon 07-14-2024 THERAPY NT HNO ID: [id number] Author: HILARY ERESE PT Service: Physical Therapy Author Type: Physical Therapist Type: Therapy (PT/OT/Speech/Resp) Filed: 07/14/2024 10:12 Note Text: Summary: PT discharge note Physical Therapy Assisted Facility Treatment Summary SERVICE DATE: 07/14/2024 SERVICE TIME: 821 to 830 ROOM: [place] [address] Discharge Therapy Services Discharged (date): 07/14/24 Discharged [...] gait speed goal, with patient to have / supervision and assist. Patient will demonstrate progress [...] a 64 year old male presenting from [facility] from 07/03-07/05 for YUMIKO, hypotension, WBC of 24, distended gallbladder with mild wall thickening per CT abdomen. Pryor removed during stay. Recent elective L TKA 06/22 at [facility]. Patient now presents motivated to return [...] (generalized), Difficulty walking-musculoskeletal TREATMENT INTERVENTIONS Therapeutic Activity (08209) Timed Code Treatment (minutes): 9 Skilled Treatment Time (minutes): 9 EXERCISE Review of total joint packet this date with handouts given. TRAINING AND EDUCATION PROVIDED Assistive Device Use, Bed Mobility, Benefits of In-Hospital Mobility, Discharge Planning, Disease Specific Education, Exercise Program, Expected Functional Level, Fa (more content not included)... Normal [facility] THERAPY NT HNO ID: [id number] Author: HILARY REESE PT Service: Physical Therapy Author Type: Physical Therapist Type: Therapy (PT/OT/Speech/Resp) Filed: 07/14/2024 08:23 Note Text: Summary: PT discharge instructions PT Discharge Instructions The PT team at [facility] has this list of discharge [...] PT please contact the PT team at [phone]. Hilary Reese PT Sapna Vidales PT Lary Bob PT Hugh Ellison EXERCISE RIDER Gio Leslie EXERCISE RIDER [facility] 07-13-2024 [facility] HNO ID: [id number] Author: MONIQUE ROMERO MD Service: Hospital Medicine Author Type: Nurse Practitioner Type: Discharge Summary Filed: 07/17/2024 15:05 Note Text: Attestation signed by Monique Romero MD at 07/17/2024 3:05 PM I have reviewed the DC summary and agree with all the outlined elements. Monique Romero MD DISCHARGE SUMMARY PATIENT NAME: Nick San ADMISSION DATE: 07/05/2024 DISCHARGE DATE: 07/13/2024 ATTENDING [...] Yes) Hypotension (POA: No) HOSPITAL COURSE: Nick San is a 64 year old male with PMH DMII, BPH, Parkinson's disease, depression, diastolic HF, admitted to [facility] on 06/22/2024 for elective left total [...] without much success. Patient was discharged with Pryor in place due to acute urinary retention noted on admission to [facility]. Patient was evaluated by therapy, thus patient was [facility]. Patient was progressing well while at [facility] and successfully passed voiding trial. On 07/02/2024 [...] was deemed appropriate to transfer patient to [facility] for higher level of care. Patient was admitted to [facility] on 07/03/2024. Urine cx noted 10,000 -<50,000 CFU/ml Gram negative bacilli. Patient was treated with IV Ceftriaxone and leukocytosis improved to 11k; transitioned to PO ATB at [place]. Patient received IVF and BP normalized; anti-HTN meds restarted slowly and tolerated Amlodipine/Clonidine. YUMIKO improved with IVF. Lisinopril dose was decreased and HCTZ was stopped. RUQ US was negative for gallbladder findings and GI did not recommend any further intervention. Once medically stable, patient was [facility]. Progressed well with PT and OT DC home in stable condition with [facility] services. OPERATIONS/PROCEDURE DURING THIS HOSPITALIZATION: * No [...] Lungs clear to auscultation, Good diaphragmatic excursion (more content not included)... Normal [facility] NURSING PROGon 07-13-2024 NURSING PROG HNO ID: [id number] Author: TERRA PEDERSEN RN Service: Nursing Author [...] or concerns were voiced at this time. Normal [facility] NUTRITIONon 07-13-2024 NUTRITION HNO ID: [id number] Author: MIN JAIN RD Service: Nutrition Therapy Author Type: Registered Dietitian Type: Nutrition Filed: 07/13/2024 11:13 Note Text: NUTRITION THERAPY PROGRESS NOTE SERVICE DATE: 07/13/2024 SERVICE TIME: 10:10 AM Nutrition Assessment: Recommended Malnutrition Diagnosis: Mild Protein-Calorie Malnutrition (07/06/24 1216 : Min Jain RD) Care Plan: Continue current diet Supplements: [...] (172 lb 6.4 oz) Dosing Weight Type: [place] body weight Estimated kilocalorie needs: 7252-6383 Calorie Calculation Method: 25-30 kcals/kg Estimated protein [...] Billing: $ Reassessment: 1-15 minutes SIGNATURE: Min Jain RD PATIENT NAME: Nick San DATE: July 13, 2024 TIME: 10:10 AM [facility] SOCIAL WORKon 07-13-2024 SOCIAL WORK HNO ID: [id number] Author: LEIA GODWIN LSW Service: Social Work Author Type: Senior Pastor Type: Social Work Filed: 07/13/2024 18:53 Note Text: Summary: MERCED callahan/Update [facility] SOCIAL WORK HNO ID: [id number] Author: LEIA GODWIN LSW Service: Social Work Author Type: Senior Pastor Type: Social Work Filed: 07/13/2024 18:53 Note Text: Summary: SW rounding/update SOCIAL WORK PROGRESS NOTE Name: Nick San 3:00 pm Informed patient that has not yet found a HH agency but will continue to look. Patient said he would have no way to get to Outpatient Therapy at this time. 4:30 pm Relayed to patient that [facility] is able to accept. Provided contact information. Signature: ALPA Black Date: July 13, 2024 Time: 5:18 PM [facility] SOCIAL WORK HNO ID: [id number] Author: LEIA GODWIN LSW Service: Social Work Author Type: Senior Pastor Type: Social Work Filed: 07/13/2024 17:18 Note [...] Knee Replacement Attendees Present at Rounds: CM, LEAD PORTFOLIO MANAGER, NM, OT, PT, R.D, SW Needs Discussed [...] . Daughter unable to come up from [place]. Difficulty finding [facility] agency. Nursing: DOCUMENTED BY: ALPA Black PATIENT NAME: Nick San DATE: July 13, 2024 TIME: 5:16 PM CSN: [id number] [facility] SOCIAL WORK HNO ID: [id number] Author: LEIA GODWIN LSW Service: Social Work Author Type: Senior Pastor Type: Social Work Filed: 07/13/2024 16:16 Note [...] Knee Replacement Attendees Present at Rounds: CM, LEAD PORTFOLIO MANAGER, NM, OT, PT, R.D, SW Needs Discussed on Rounds: Discharge Needs Plan of Care Anticipated Discharge Disposition: Home with Home Health Last Vitals: BP 117/66 Pulse 59 Temp (Src) 97.3 (Oral) Resp 16 Ht 5' 11 (1.80m) Wt 209 lb 10.5 oz (95.1kg) SpO2 94% BMI 29.25 kg/(m2). O2 Therapy: Room Air SW home w/ . Daughter unable to come up from [place]. Difficulty finding [facility] agency. R.D Wt loss r/t ? WBC elevated Nursing: DOCUMENTED BY: ALPA Black PATIENT NAME: Nick San DATE: July 13, 2024 TIME: 4:12 PM CSN: [id number] Normal [facility] THERAPY NTon 07-13-2024 THERAPY NT HNO ID: [id number] Author: NANCIE LESLIE PTA Service: Physical Therapy Author Type: Guideman Type: Therapy (PT/OT/Speech/Resp) Filed: 07/13/2024 14:06 Note Text: Attestation signed by Hilary Reese PT at 07/13/2024 3:39 PM I reviewed and agree with the documentation corresponding to this therapy visit. SIGNATURE: Hilary Reese PT DATE: July 13, 2024 TIME: 3:39 PM Physical Therapy Assisted Facility Treatment Summary SERVICE DATE: 07/13/2024 SERVICE TIME: 1311 to 1400 ROOM: [place] [address] PT 6 Clicks Score: 24 DISCHARGE RECOMMENDATIONS [...] a 64 year old male presenting from [facility] from 07/03-07/05 for YUMIKO, hypotension, WBC of 24, distended gallbladder with mild wall thickening per CT abdomen. Pryor removed during stay. Recent elective L TKA 06/22 at [facility]. Patient now presents motivated to return [...] (generalized), Difficulty walking-musculoskeletal TREATMENT INTERVENTIONS Therapeutic Exercise (44817), Therapeutic Activity (55681), Gait Training (05236) Timed Code Treatment (minutes): 49 Skilled Treatment [...] Activity Dosing, Cues for Sequencing/Proper Technique for Act (more content not included)... Normal [facility] THERAPY NT HNO ID: [id number] Author: NANCIE LESLIE PTA Service: Physical Therapy Author Type: Guideman Type: Therapy (PT/OT/Speech/Resp) Filed: 07/13/2024 12:42 Note Text: Attestation signed by Hilary Reese, PT at 07/13/2024 1:01 PM I reviewed and agree with the documentation corresponding to this therapy visit. SIGNATURE: Hilary Reese PT DATE: July 13, 2024 TIME: 1:01 PM Physical Therapy Assisted Facility Treatment Summary SERVICE DATE: 07/13/2024 SERVICE TIME: 844 to 949 ROOM: [place] [address] PT 6 Clicks Score: 24 DISCHARGE RECOMMENDATIONS [...] passes then possibly he will go to [facility]. Patient demonstrates decreased motivation continually fatigued. much [...] a 64 year old male presenting from [facility] from 07/03-07/05 for YUMIKO, hypotension, WBC of 24, distended gallbladder with mild wall thickening per CT abdomen. Pryor removed during stay. Recent elective L TKA 06/22 at [facility]. Patient now presents motivated to return [...] (generalized), Difficulty walking-musculoskeletal TREATMENT INTERVENTIONS Therapeutic Exercise (64562), Therapeutic Activity (51635), Gait Training (27928) Timed Code Treatment (minutes): 65 Skilled Treatment [...] Pattern, Reduction of Deviations, Expected Functional Level, (more content not included)... Normal [facility] THERAPY NT HNO ID: [id number] Author: ESTRELLA CROUCH OTR/[place] Service: Occupational Therapy Author Type: Occupational Therapist Type: Therapy (PT/OT/Speech/Resp) Filed: 07/13/2024 11:00 Note Text: Summary: OT discharge Occupational Therapy Assisted Facility Treatment Summary SERVICE DATE: 07/13/2024 SERVICE TIME: 1016 to 1050 ROOM: [place] [address] OT 6 Clicks Score: 20 DISCHARGE RECOMMENDATIONS [...] a 64 year old male presenting from [facility] from 07/03-07/05 for YUMIKO, hypotension, WBC of 24, distended gallbladder with mild wall thickening per CT abdomen. Pryor removed during stay. Recent elective L TKA 06/22 at [facility]. Patient now presents motivated to return [...] spouse completes Equipment Owned: Commode- 3 in , Ex (more content not included)... Normal [facility] THERAPY NT HNO ID: [id number] Author: ESTRELLA CROUCH OTR/L Service: Occupational Therapy Author Type: Occupational Therapist Type: Therapy (PT/OT/Speech/Resp) Filed: 07/13/2024 08:22 Note Text: Summary: OT discharge recommendations OT Discharge Instructions The OT team at [facility] has this list of discharge [...] and fall risk Recommended equipment for home: Switch Box Installer, Dressing stick, Sock Aid, Walker bag/tray, and [...] OT please contact the OT team at [phone]. Rola Stevens OT Estrella Crouch OT Nina Gonsalez OT Ayleen Sánchez OT Angelita QUINTANILLA Normal [facility] Basic metabolic 2000 panelon 07-12-2024 Anion gap [Moles/Vol] 9 mmol/L Normal 8-15 [facility] Comment on above: Order Comment: Speci men Type: BLOOD SPECIMEN Ordering Facility: [facility] Address: [address] [place] [address] Performed By: #### 2 4320-11, #### [facility] CLIA [id number] [address] [place] [address] [place] Calcium [Mass/Vol] 9.4 mg/dL Normal 8.5-10.2 [facility] Comment on above: Order Comment: Speci men Type: BLOOD SPECIMEN Ordering Facility: [facility] Address: [address] [place] [address] Performed By: #### 2 4320-11, #### [facility] CLIA [id number] [address] [place] [address] [place] Chloride [Moles/Vol] 105 mmol/L Normal 98-107 [facility] Comment on above: Order Comment: Speci men Type: BLOOD SPECIMEN Ordering Facility: [facility] Address: [address] [place] [address] Performed By: #### 2 4320-11, #### [facility] CLIA [id number] [address] [place] [address] [place] CO2 [Moles/Vol] 25 mmol/L Normal 22-30 [facility] Comment on above: Order Comment: Kassie mitchell Type: BLOOD SPECIMEN Ordering Facility: [facility] Address: [address] [place] [address] Performed By: #### 2 4321-2, #### [facility] CLIA [id number] [address] [place] [address] [place] Creatinine [Mass/Vol] 1.30 mg/dL High 0.73-1.22 [facility] Comment on above: Order Comment: Kassie mitchell Type: BLOOD SPECIMEN Ordering Facility: [facility] Address: [address] [place] [address] Performed By: #### 2 432-2, #### [facility] CLIA [id number] [address] Creatinine and Glomerular filtration rate.predicted panel (S/P/Bld) 61 mL/min/1.73m??? Normal >=60 [facility] Comment on above: Order Comment: Kassie mitchell Type: BLOOD SPECIMEN Ordering Facility: [facility] Address: [address] [place] [address] Result Comment: Edie mated Glomerular Filtration Rate (eGFR) is calculated using the 2020 CKD-EPI creatinine equation. This equation utilizes serum creatinine, sex, and age as parameters. The creatinine assay has traceable calibration to isotope dilution-mass spectrometry. Refer to KDIGO guidelines for clinical interpretation. In patients with unstable renal function, e.g. those with acute kidney injury, the eGFR may not accurately reflect actual GFR. Performed By: #### 2 1-2, #### [facility] CLIA [id number] [address] [place] [address] [place] Glucose [Mass/Vol] 118 mg/dL High 74-99 [facility] Comment on above: Order Comment: Kassie mitchell Type: BLOOD SPECIMEN Ordering Facility: [facility] Address: [address] [place] [address] Result Comment: The Indian Diabetes Association (ADA) [...] Indian Diabetes Association. Diabetes Care. 2016.39(Suppl 1). Performed By: #### 2 4320-11, #### [facility] CLIA [id number] [address] [place] [address] [place] Potassium [Moles/Vol] 4.1 mmol/L Normal 3.7-5.1 [facility] Comment on above: Order Comment: Kassie mitchell Type: BLOOD SPECIMEN Ordering Facility: [facility] Address: [address] [place] [address] Performed By: #### 2 #### [facility] CLIA [id number] [address] [place] [address] [place] Sodium [Moles/Vol] 139 mmol/L Normal 136-144 [facility] Comment on above: Order Comment: Kassie mitchell Type: BLOOD SPECIMEN Ordering Facility: [facility] Address: [address] [place] [address] Performed By: #### 2 4320-11, #### [facility] CLIA [id number] [address] [place] [address] [place] Urea nitrogen [Mass/Vol] 19 mg/dL Normal 9-24 [facility] Comment on above: Order Comment: Kassie mitchell Type: BLOOD SPECIMEN Ordering Facility: [facility] Address: [address] [place] [address] Performed By: #### 2 4320-11, #### [facility] CLIA [id number] [address] [place] [address] [place] CBC panel Auto (Bld)on 07-12 Erythrocyte distribution width (RBC) [Ratio] 13.2 % Normal 11.5-15.0 [facility] Comment on above: Order Comment: Speci men Type: BLOOD SPECIMEN Ordering Facility: [facility] Address: [address] [place] [address] Performed By: #### 2 4323-8, #### [facility] CLIA [id number] [address] [place] [address] [facility] [place] Hematocrit (Bld) [Volume fraction] 32.0 % Low 39.0-51.0 [facility] Comment on above: Order Comment: Speci men Type: BLOOD SPECIMEN Ordering Facility: [facility] Address: [address] [place] [address] Performed By: #### 2 4323-8, #### [facility] CLIA [id number] [address] [place] [address] [facility] [place] Hemoglobin (Bld) [Mass/Vol] 10.2 g/dL Low 13.0-17.0 [facility] Comment on above: Order Comment: Speci men Type: BLOOD SPECIMEN Ordering Facility: [facility] Address: [address] [place] [address] Performed By: #### 2 4323-8, #### [facility] CLIA [id number] [address] [place] [address] [place] MCH (RBC) [Entitic mass] 30.4 pg Normal 26.0-34.0 [facility] Comment on above: Order Comment: Speci men Type: BLOOD SPECIMEN Ordering Facility: [facility] Address: [address] [place] [address] Performed By: #### 2 4323-8, #### [facility] CLIA [id number] [address] [place] [address] [place] MCHC (RBC) [Mass/Vol] 31.9 g/dL Normal 30.5-36.0 [facility] Comment on above: Order Comment: Speci men Type: BLOOD SPECIMEN Ordering Facility: [facility] Address: [address] [place] [address] Performed By: #### 2 4323-8, #### [facility] CLIA [id number] [address] [place] [address] [place] MCV (RBC) [Entitic vol] 95.2 fL Normal 80.0-100.0 [facility] Comment on above: Order Comment: Speci men Type: BLOOD SPECIMEN Ordering Facility: [facility] Address: [address] [place] [address] Performed By: #### 2 4328, #### [facility] CLIA [id number] [address] [place] [address] [place] Platelet mean volume (Bld) [Entitic vol] 8.5 fL Low 9.0-12.7 [facility] Comment on above: Order Comment: Speci men Type: BLOOD SPECIMEN Ordering Facility: [facility] Address: [address] [place] [address] Performed By: #### 2 43212-10, #### [facility] CLIA [id number] [address] [place] [address] [place] Platelets (Bld) [#/Vol] 452 10*3/uL High 150-400 [facility] Comment on above: Order Comment: Speci men Type: BLOOD SPECIMEN Ordering Facility: [facility] Address: [address] [place] [address] Performed By: #### 2 43238, #### [facility] CLIA [id number] [address] [place] [address] [place] RBC (Bld) [#/Vol] 3.36 10*6/uL Low 4.20-6.00 [facility] Comment on above: Order Comment: Speci men Type: BLOOD SPECIMEN Ordering Facility: [facility] Address: [address] [place] [address] Performed By: #### 2 4323-8, 94573-2 #### [facility] CLIA [id number] [address] [place] [address] [place] WBC (Bld) [#/Vol] 7.33 10*3/uL Normal 3.70-11.00 [facility] Comment on above: Order Comment: Kassie mitchell Type: BLOOD SPECIMEN Ordering Facility: [facility] Address: [address] [place] [address] Performed By: #### 2 4323-8, 70212-8 #### [facility] CLIA [id number] [address] [place] [id number] [place] Magnesium SerPl-mCncon 07-12 Magnesium [Mass/Vol] 2.0 mg/dL Normal 1.7-2.3 [facility] Comment on above: Order Comment: Kassie mitchell Type: BLOOD SPECIMEN Ordering Facility: [facility] Address: [address] [place] [address] Performed By: #### 2 4321-2, #### [facility] CLIA [id number] [address] [place] [address] [place] SOCIAL WORKon 07-12-2024 SOCIAL WORK HNO ID: [id number] Author: LEIA GODWIN LSW Service: Social Work Author Type: Senior Pastor Type: Social Work Filed: 07/12/2024 17:06 Note Text: Summary: [facility] SOCIAL WORK PROGRESS NOTE Name: Nick San Patient states his daughter doesn't want him to have the agency that sister in law works for, Patient agreeable to let SW send other referrals. Signature: ALPA Black Date: July 12, 2024 Time: 5:05 PM [facility] THERAPY NTon 07-12-2024 THERAPY NT HNO ID: [id number] Author: HILARY REESE PT Service: Physical Therapy Author Type: Guideman Type: Therapy (PT/OT/Speech/Resp) Filed: 07/12/2024 16:18 Note Text: Attestation signed by Hilary Reese PT at 07/12/2024 4:18 PM I reviewed and agree with the documentation corresponding to this therapy visit. SIGNATURE: Hilary Reese PT DATE: July 12, 2024 TIME: 4:18 PM Physical Therapy Assisted Facility Treatment Summary SERVICE DATE: 07/12/2024 SERVICE TIME: 1459 to 1533 ROOM: [place] [address] PT 6 Clicks Score: 23 DISCHARGE RECOMMENDATIONS Home PT Recommended Discharge Disposition Comments: Home PT with / supervision from spouse, but not physical assist [...] a 64 year old male presenting from [facility] from 07/03-07/05 for YUMIKO, hypotension, WBC of 24, distended gallbladder with mild wall thickening per CT abdomen. Pryor removed during stay. Recent elective L TKA 06/22 at [facility]. Patient now presents motivated to return [...] (generalized), Difficulty walking-musculoskeletal TREATMENT INTERVENTIONS Therapeutic Exercise (97275), Gait Training (49137) Timed Code Treatment (minutes): 34 Skilled Treatment Time (minutes): 34 EXERCISE Exercises Exercise: nustep LE 10 9 UE lvl 4 10 minutes,lateral stepping along parallel bar 4x, standing heel/toe raises x20, standing december x20 TRAINING AND EDUCATION PROVIDED Exercise Program, Expected Functional Level, Gait Pattern, Reduction of Deviations, Discharge Planning, Stair Navigation THERAPEUTIC SKILLS USED Activity Dosin (more content not included)... Normal [facility] THERAPY NT HNO ID: [id number] Author: AYLEEN SÁNCHEZ OT/L Service: ? Author Type: Occupational Therapist Type: Therapy (PT/OT/Speech/Resp) Filed: 07/12/2024 13:39 Note Text: Occupational Therapy Assisted Facility Treatment Summary SERVICE DATE: 07/12/2024 SERVICE TIME: 1034 to 1108 ROOM: [place] [address] OT 6 Clicks Score: 20 DISCHARGE RECOMMENDATIONS [...] a 64 year old male presenting from [facility] from 07/03-07/05 for YUMIKO, hypotension, WBC of 24, distended gallbladder with mild wall thickening per CT abdomen. Pryor removed during stay. Recent elective L TKA 06/22 at [facility]. Patient now presents motivated to return [...] and LB dressing; Spouse does most meals, l (more content not included)... Normal [facility] THERAPY NT HNO ID: [id number] Author: SAM GOLDBERG PTA Service: Physical Therapy Author Type: Guideman Type: Therapy (PT/OT/Speech/Resp) Filed: 07/12/2024 10:26 Note Text: Attestation signed by Bridgett Vidales PT DPT at 07/12/2024 12:20 PM I reviewed and agree with the documentation corresponding to this therapy visit. SIGNATURE: Bridgett Vidales PT DPT DATE: July 12, 2024 TIME: 12:20 PM Physical Therapy Assisted Facility Treatment Summary SERVICE DATE: 07/12/2024 SERVICE TIME: 944 to 1016 ROOM: [place] [address] PT 6 Clicks Score: 23 DISCHARGE RECOMMENDATIONS [...] a 64 year old male presenting from [facility] from 07/03-07/05 for YUMIKO, hypotension, WBC of 24, distended gallbladder with mild wall thickening per CT abdomen. Pryor removed during stay. Recent elective L TKA 06/22 at [facility]. Patient now presents motivated to return [...] (generalized), Difficulty walking-musculoskeletal TREATMENT INTERVENTIONS Gait Training (41295), Therapeutic Exercise (25646) Timed Code Treatment (minutes): 32 Skilled Treatment [...] for Sequencing/Proper Technique for Activity, Cuing Visual (more content not included)... Normal [facility] NURSING PROGon 07-11-2024 NURSING PROG HNO ID: [id number] Author: CHRIS COLLAZO RN Service: ? Author Type: Registered Nurse Type: Nursing Progress Note Filed: 07/11/2024 06:52 Note Text: 0030: patient C/O inability to sleep. LIP shank boner Burton Galvin CNP made aware. Orders obtained to give 9 mg PO melatonin for sleep. 0115: 9mg PO Melatonin administered. 0630: Patient admits to getting good sleep from melatonin. Will continue to follow plan of care Normal [facility] SOCIAL WORKon 07-11-2024 SOCIAL WORK HNO ID: [id number] Author: LEIA GODWIN LSW Service: Social Work Author Type: Senior Pastor Type: Social Work Filed: 07/11/2024 16:27 Note Text: Summary: [facility] SOCIAL WORK PROGRESS NOTE Name: Nick San Received [facility]OM[facility] with LCD of 07/13. Patient signed and [facility]. Signature: ALPA Black Date: July 11, 2024 Time: 4:26 PM [facility] THERAPY NTon 07-11-2024 THERAPY NT HNO ID: [id number] Author: LARY BOB PT Service: Physical Therapy Author Type: Guideman Type: Therapy (PT/OT/Speech/Resp) Filed: 07/11/2024 17:19 Note Text: Attestation signed by Lary Bob, PT at 07/11/2024 5:19 PM I reviewed and agree with the documentation corresponding to this therapy visit. SIGNATURE: Lary Bob, PT DATE: July 11, 2024 TIME: 5:18 PM Physical Therapy Assisted Facility Treatment Summary SERVICE DATE: 07/11/2024 SERVICE TIME: 1300 to 1350 ROOM: [place] [address] PT 6 Clicks Score: 24 DISCHARGE RECOMMENDATIONS [...] a 64 year old male presenting from [facility] from 07/03-07/05 for YUMIKO, hypotension, WBC of 24, distended gallbladder with mild wall thickening per CT abdomen. Pryor removed during stay. Recent elective L TKA 06/22 at [facility]. Patient now presents motivated to return [...] (generalized), Difficulty walking-musculoskeletal TREATMENT INTERVENTIONS Therapeutic Exercise (62586), Therapeutic Activity (31140), Gait Training (23758) Timed Code Treatment (minutes): 50 Skilled Treatment [...] slant board stretchin standing ex. ABD,SLR,marchiing,side stepping (more content not included)... Normal [facility] THERAPY NT HNO ID: [id number] Author: FLORA AYALA OTA/L Service: ? Author Type: Hand Fabric Cutter Type: Therapy (PT/OT/Speech/Resp) Filed: 07/11/2024 12:29 Note Text: Attestation signed by Ayleen Sánchez OT/L at 07/11/2024 2:50 PM Collaboration with MARY occurred and documentation corresponding to this therapy visit was reviewed. CHANDLER Mejia Occupational Therapy Assisted Facility Treatment Summary SERVICE DATE: 07/11/2024 SERVICE TIME: 1030 to 1126 ROOM: [place] [address] OT 6 Clicks Score: 20 DISCHARGE RECOMMENDATIONS [...] vs traveling to stay with dtr in [facility]. Pt reporting his goal is to be [...] a 64 year old male presenting from [facility] from 07/03-07/05 for YUMIKO, hypotension, WBC of 24, distended gallbladder with mild wall thickening per CT abdomen. Pryor removed during stay. Recent elective L TKA 06/22 at [facility]. Patient now presents motivated to return [...] Stairs To Bed/Bath: 0 Tub/Shower Type: tub (more content not included)... Normal [facility] THERAPY NT HNO ID: [id number] Author: LARY BOB, PT Service: Physical Therapy Author Type: Guideman Type: Therapy (PT/OT/Speech/Resp) Filed: 07/11/2024 17:18 Note Text: Attestation signed by Lary Bob PT at 07/11/2024 5:18 PM I reviewed and agree with the documentation corresponding to this therapy visit. SIGNATURE: Lary Bob PT DATE: July 11, 2024 TIME: 5:18 PM Physical Therapy Assisted Facility Treatment Summary SERVICE DATE: 07/11/2024 SERVICE TIME: 0850 to 0940 ROOM: [place] [address] PT 6 Clicks Score: 24 DISCHARGE RECOMMENDATIONS [...] a 64 year old male presenting from [facility] from 07/03-07/05 for YUMIKO, hypotension, WBC of 24, distended gallbladder with mild wall thickening per CT abdomen. Pryor removed during stay. Recent elective L TKA 06/22 at [facility]. Patient now presents motivated to return [...] (generalized), Difficulty walking-musculoskeletal TREATMENT INTERVENTIONS Therapeutic Exercise (10288), Gait Training (65501) Timed Code Treatment (minutes): 50 Skilled Treatment [...] Assistive Device Use, Exercise Program, Gait Pattern, Reducti (more content not included)... Normal [facility] THERAPY NTon 07-10-2024 THERAPY NT HNO ID: [id number] Author: NANCIE LESLIE PTA Service: Physical Therapy Author Type: Guideman Type: Therapy (PT/OT/Speech/Resp) Filed: 07/10/2024 12:02 Note Text: Attestation signed by Hilary Reese, PT at 07/10/2024 6:31 PM I reviewed and agree with the documentation corresponding to this therapy visit. SIGNATURE: Hilary Reese, PT DATE: July 10, 2024 TIME: 6:31 PM Physical Therapy Assisted Facility Treatment Summary SERVICE DATE: 07/10/2024 SERVICE TIME: 909 to 949 ROOM: [place] [address] PT 6 Clicks Score: 23 DISCHARGE RECOMMENDATIONS [...] a 64 year old male presenting from [facility] from 07/03-07/05 for YUMIKO, hypotension, WBC of 24, distended gallbladder with mild wall thickening per CT abdomen. Pryor removed during stay. Recent elective L TKA 06/22 at [facility]. Patient now presents motivated to return [...] (generalized), Difficulty walking-musculoskeletal TREATMENT INTERVENTIONS Therapeutic Exercise (61689), Gait Training (82894) Timed Code Treatment (minutes): 40 Skilled Treatment [...] / Home Management, Energy Conservation Training, Joint Mobilit (more content not included)... Normal [facility] CBC panel Auto (Bld)on 07-09 Erythrocyte distribution width (RBC) [Ratio] 12.8 % Normal 11.5-15.0 [facility] Comment on above: Order Comment: Kassie mitchell Type: BLOOD SPECIMEN Ordering Facility: [facility] Address: [address] [place] [address] Performed By: #### 2 8, #### [facility] CLIA [id number] [address] [place] [address] [place] Hematocrit (Bld) [Volume fraction] 33.2 % Low 39.0-51.0 [facility] Comment on above: Order Comment: Kassie mitchell Type: BLOOD SPECIMEN Ordering Facility: [facility] Address: [address] [place] [address] Performed By: #### 2 4323-05, #### [facility] CLIA [id number] [address] [place] [address] [place] Hemoglobin (Bld) [Mass/Vol] 10.8 g/dL Low 13.0-17.0 [facility] Comment on above: Order Comment: Doriani paula Type: BLOOD SPECIMEN Ordering Facility: [facility] Address: [address] [place] [address] Performed By: #### 2 4323-05, #### [facility] CLIA [id number] [address] [place] [address] [place] MCH (RBC) [Entitic mass] 30.5 pg Normal 26.0-34.0 [facility] Comment on above: Order Comment: Doriani men Type: BLOOD SPECIMEN Ordering Facility: [facility] Address: [address] [place] [address] Performed By: #### 2 43212-10, #### [facility] CLIA [id number] [address] [place] [address] [place] MCHC (RBC) [Mass/Vol] 32.5 g/dL Normal 30.5-36.0 [facility] Comment on above: Order Comment: Speci men Type: BLOOD SPECIMEN Ordering Facility: [facility] Address: [address] [place] [address] Performed By: #### 2 4323-8, #### [facility] CLIA [id number] [address] [place] [address] [place] MCV (RBC) [Entitic vol] 93.8 fL Normal 80.0-100.0 [facility] Comment on above: Order Comment: Speci men Type: BLOOD SPECIMEN Ordering Facility: [facility] Address: [address] [place] [address] Performed By: #### 2 4323-8, #### [facility] CLIA [id number] [address] [place] [address] [place] Platelet mean volume (Bld) [Entitic vol] 8.4 fL Low 9.0-12.7 [facility] Comment on above: Order Comment: Speci men Type: BLOOD SPECIMEN Ordering Facility: [facility] Address: [address] [place] [address] Performed By: #### 2 4323-8, #### [facility] CLIA [id number] [address] [place] [address] [place] Platelets (Bld) [#/Vol] 535 10*3/uL High 150-400 [facility] Comment on above: Order Comment: Speci men Type: BLOOD SPECIMEN Ordering Facility: [facility] Address: [address] [place] [address] Performed By: #### 2 4323-8, #### [facility] CLIA [id number] [address] [place] [address] [place] RBC (Bld) [#/Vol] 3.54 10*6/uL Low 4.20-6.00 [facility] Comment on above: Order Comment: Speci men Type: BLOOD SPECIMEN Ordering Facility: [facility] Address: [address] [place] [address] Performed By: #### 2 4323-8, 54798-1 #### [facility] CLIA [id number] [address] [place] [address] [place] WBC (Bld) [#/Vol] 13.18 10*3/uL High 3.70-11.00 [facility] Comment on above: Order Comment: Speci men Type: BLOOD SPECIMEN Ordering Facility: [facility] Address: [address] [place] [address] Performed By: #### 2 4323-8, 71989-2 #### [facility] CLIA [id number] [address] [place] [address] [facility] Comprehensive metabolic 2000 panelon 07-09-2024 Albumin [Mass/Vol] 3.9 g/dL Normal 3.9-4.9 [facility] Comment on above: Order Comment: Speci men Type: BLOOD SPECIMEN Ordering Facility: [facility] Address: [address] [place] [address] Performed By: #### 2 4323-8, 37662-0 #### [facility] CLIA [id number] [address] [place] [address] [facility] ALP [Catalytic activity/Vol] 97 U/L Normal 38-113 [facility] Comment on above: Order Comment: Speci men Type: BLOOD SPECIMEN Ordering Facility: [facility] Address: [address] [place] [address] Performed By: #### 2 4323-8, 28121-7 #### [facility] CLIA [id number] [address] [place] [address] [place] ALT With P-5'-P [Catalytic activity/Vol] U/L Low 10-54 [facility] Comment on above: Order Comment: Speci men Type: BLOOD SPECIMEN Ordering Facility: [facility] Address: [address] [place] [address] Performed By: #### 2 4323-8, 92049-2 #### [facility] CLIA [id number] [address] [place] [address] [place] Anion gap [Moles/Vol] 10 mmol/L Normal 8-15 [facility] Comment on above: Order Comment: Speci men Type: BLOOD SPECIMEN Ordering Facility: [facility] Address: [address] [place] [address] Performed By: #### 2 4323-8, 07715-1 #### [facility] CLIA [id number] [address] [place] [address] [place] AST With P-5'-P [Catalytic activity/Vol] 27 U/L Normal 14-40 [facility] Comment on above: Order Comment: Speci men Type: BLOOD SPECIMEN Ordering Facility: [facility] Address: [address] [place] [address] Performed By: #### 2 4323-8, 75498-4 #### [facility] CLIA [id number] [address] [place] [address] [place] Bilirubin [Mass/Vol] 0.4 mg/dL Normal 0.2-1.3 [facility] Comment on above: Order Comment: Speci men Type: BLOOD SPECIMEN Ordering Facility: [facility] Address: [address] [place] [address] Performed By: #### 2 4323-8, 80362-1 #### [facility] CLIA [id number] [address] [place] [address] [place] Calcium [Mass/Vol] 9.8 mg/dL Normal 8.5-10.2 [facility] Comment on above: Order Comment: Speci men Type: BLOOD SPECIMEN Ordering Facility: [facility] Address: [address] [place] [address] Performed By: #### 2 4323-8, 92339-8 #### [facility] CLIA [id number] [address] [place] [address] [place] Chloride [Moles/Vol] 104 mmol/L Normal 98-107 [facility] Comment on above: Order Comment: Kassie mitchell Type: BLOOD SPECIMEN Ordering Facility: [facility] Address: [address] [place] [address] Performed By: #### 2 4323-8, 04173-3 #### [facility] CLIA [id number] [address] [place] [address] [place] CO2 [Moles/Vol] 25 mmol/L Normal 22-30 [facility] Comment on above: Order Comment: Speci men Type: BLOOD SPECIMEN Ordering Facility: [facility] Address: [address] [place] [address] Performed By: #### 2 4323-8, 59881-8 #### [facility] CLIA [id number] [address] [place] [address] [place] Creatinine [Mass/Vol] 1.17 mg/dL Normal 0.73-1.22 [facility] Comment on above: Order Comment: Kassie men Type: BLOOD SPECIMEN Ordering Facility: [facility] Address: [address] [place] [address] Performed By: #### 2 4323-8, 98943-9 #### [facility] CLIA [id number] [address] [place] [address] [facility] Creatinine and Glomerular filtration rate.predicted panel (S/P/Bld) 69 mL/min/1.73m??? Normal >=60 [facility] Comment on above: Order Comment: Speci men Type: BLOOD SPECIMEN Ordering Facility: [facility] Address: [address] [place] [address] Result Comment: Edie mated Glomerular Filtration Rate (eGFR) is calculated using the 2020 CKD-EPI creatinine equation. This equation utilizes serum creatinine, sex, and age as parameters. The creatinine assay has traceable calibration to isotope dilution-mass spectrometry. Refer to KDIGO guidelines for clinical interpretation. In patients with unstable renal function, e.g. those with acute kidney injury, the eGFR may not accurately reflect actual GFR. Performed By: #### 2 4323-8, 12394-8 #### [facility] CLIA [id number] [address] [place] [address] [place] Glucose [Mass/Vol] 165 mg/dL High 74-99 [facility] Comment on above: Order Comment: Kassie mitchell Type: BLOOD SPECIMEN Ordering Facility: [facility] Address: [address] [place] [address] Result Comment: The Indian Diabetes Association (ADA) [...] Indian Diabetes Association. Diabetes Care. 2016.39(Suppl 1). Performed By: #### 2 4323-8, 56445-2 #### [facility] CLIA [id number] [address] [place] [address] [place] Potassium [Moles/Vol] 4.1 mmol/L Normal 3.7-5.1 [facility] Comment on above: Order Comment: Kassie mitchell Type: BLOOD SPECIMEN Ordering Facility: [facility] Address: [address] [place] [address] Performed By: #### 2 4323-8, 71236-0 #### [facility] CLIA [id number] [address] [place] [address] [place] Protein [Mass/Vol] 6.6 g/dL Normal 6.3-8.0 [facility] Comment on above: Order Comment: Kassie mitchell Type: BLOOD SPECIMEN Ordering Facility: [facility] Address: [address] [place], [place] [address] Performed By: #### 2 4323-8, 92153-6 #### [facility] CLIA [id number] [address] [place] [address] [place] [facility] Sodium [Moles/Vol] 139 mmol/L Normal 136-144 [facility] Comment on above: Order Comment: Speci men Type: BLOOD SPECIMEN Ordering Facility: [facility] Address: [address] [place] [address] Performed By: #### 2 4323-8, 35674-8 #### [facility] CLIA [id number] [address] [place] [id number] [place] [facility] Urea nitrogen [Mass/Vol] 17 mg/dL Normal 9-24 [facility] Comment on above: Order Comment: Speci men Type: BLOOD SPECIMEN Ordering Facility: [facility] Address: [address] [place] [address] Performed By: #### 2 4323-8, 86389-9 #### [facility] CLIA [id number] [address] [place] [id number] [place] [facility] ECG COMPLETEon 07-09-2024 ECG COMPLETE Ventricular Rate : 8 1 BPM Atrial Rate : 81 BPM P-R Interval : 174 ms QRS Duration : 134 ms Q-T Interval : 406 ms QTC Calculation(Bazett) : 471 ms Calculated P [place] : 25 degrees Calculated R [place] : -46 degrees Calculated T [place] : 95 degrees NORMAL SINUS RHYTHM LEFT AXIS DEVIATION LEFT BUNDLE BRANCH BLOCK MINIMAL VOLTAGE CRITERIA FOR LVH, MAY BE NORMAL VARIANT ( Brady product ) CANNOT RULE OUT ANTERIOR INFARCT (CITED ON OR BEFORE 08-Jul-2024) ABNORMAL ECG WHEN COMPARED WITH ECG OF 08-Jul-2024 22:59, NO SIGNIFICANT CHANGE WAS FOUND Confirmed by MD BG, DEISY ([id number]) on 07/12/2024 8:57:41 PM NAME : NICK SAN PID : [id number] : 1960 Gender : Male Race : ORD : [id number] Procedure Date : Jul 09 2024 06:52:06 Edit Date : Jul 12 2024 20:57:42 Diagnosis: NORMAL SINUS RHYTHM LEFT AXIS DEVIATION LEFT BUNDLE BRANCH BLOCK MINIMAL VOLTAGE CRITERIA FOR LVH, MAY BE NORMAL VARIANT ( Outing product ) CANNOT RULE OUT ANTERIOR INFARCT (CITED ON OR BEFORE 08-Jul-2024) ABNORMAL ECG WHEN COMPARED WITH ECG OF 08-Jul-2024 22:59, NO SIGNIFICANT CHANGE WAS FOUND Confirmed by MD PEDERSON VINAYAK ([id number]) on 07/12/2024 8:57:41 PM Test Reason : Arrhythmia Location : 191 : [facility] 0107 Overread By : MD PEDERSON VINAYAK Edited By : MD PEDERSON VINAYAK Referred By : , Acquired by : JAVAD DALTON Normal [facility] HIGH SENSITIVITY TROPONIN To n 07-09-2024 Troponin T.cardiac High sensitivity method [Mass/Vol] 41 ng/L High <12 [facility] Comment on above: Order Comment: Speci paula Type: BLOOD SPECIMEN Ordering Facility: [facility] Address: [address] [place] [address] Performed By: #### 2 4323-8, #### [facility] CLIA [id number] [address] [place] [address] [facility] Troponin T.cardiac High sensitivity method [Mass/Vol] 42 ng/L High <12 [facility] Comment on above: Order Comment: Speci paula Type: BLOOD SPECIMEN Ordering Facility: [facility] Address: [address] [place] [address] Performed By: #### 2 4323-8, #### [facility] CLIA [id number] [address] [place] [address] [facility] NURSING PROGon 07-09-2024 NURSING PROG HNO ID: [id number] Author: CHRIS COLLAZO, JASON Service: ? Author Type: Registered Nurse Type: Nursing Progress Note Filed: 07/09/2024 02:32 Note Text: Burton Galvin CNP made aware of patients troponin results of 42. Next troponin to be drawn at 4 am. Will continue to closely monitor pt Normal [facility] Procalcitonin SerPl-mCncon 1 Procalcitonin [Mass/Vol] 0.19 ng/mL High <0.09 [facility] Comment on above: Order Comment: Speci men Type: BLOOD SPECIMEN Ordering Facility: [facility] Address: [address], [place] [address] Result Comment: For a guided interpretation of test results, please visit the Change in Procalcitonin Calculator, [email or web address]. Performed By: #### 2 4323-8, 29497-6 #### [facility] CLIA [id number] [address] [place] [address] [facility] THERAPY NTon 07-09-2024 THERAPY NT HNO ID: [id number] Author: HILARY REESE PT Service: Physical Therapy Author Type: Guideman Type: Therapy (PT/OT/Speech/Resp) Filed: 07/09/2024 11:51 Note Text: Attestation signed by Hilary Reese PT at 07/09/2024 11:51 AM I reviewed and agree with the documentation corresponding to this therapy visit. SIGNATURE: Hilary Reese PT DATE: July 09, 2024 TIME: 11:51 AM Summary: PT Insurance Update Physical Therapy Assisted Facility Treatment Summary SERVICE DATE: 07/09/2024 SERVICE TIME: 925 to 955 ROOM: [place] [address] PT 6 Clicks Score: 22 DISCHARGE RECOMMENDATIONS [...] a 64 year old male presenting from [facility] from 07/03-07/05 for YUMIKO, hypotension, WBC of 24, distended gallbladder with mild wall thickening per CT abdomen. Pryor removed during stay. Recent elective L TKA 06/22 at [facility]. Patient now presents motivated to return [...] (generalized), Difficulty walking-musculoskeletal TREATMENT INTERVENTIONS Therapeutic Exercise (70747), Gait Training (30758) Timed Code Treatment (minutes): 30 Skilled Treatment Time (minutes): 30 EXERCISE Exercises Exercise: Nustep seat 12 UE 12 lvl 5 6 minutes TRAINING AND EDUCATION PROVIDED Exercise Program, Expected Functional Level, Gait Pattern, Reduction of Deviations, Stair Navigation THERAPEUTIC SKILLS USED Acti (more content not included)... [facility] THERAPY NT HNO ID: [id number] Author: ESTRELLA CROUCH OTR/[place] Service: Occupational Therapy Author Type: Occupational Therapist Type: Therapy (PT/OT/Speech/Resp) Filed: 07/09/2024 09:08 Note Text: Summary: OT insurance update Occupational Therapy Assisted Facility Treatment Summary SERVICE DATE: 07/09/2024 SERVICE TIME: 754 ROOM: [place] [address] OT 6 Clicks Score: 20 DISCHARGE RECOMMENDATIONS [...] LB dressing; pt likely to d/c to [facility] to have more assist (dtr lives in [...] SUBJECTIVE pt agreeable to OT; cleared by IRB COMPLIANCE COORDINATOR for treatment FUNCTIONAL STATUS Activities of Daily [...] a 64 year old male presenting from [facility] from 07/03-07/05 for YUMIKO, hypotension, WBC of 24, distended gallbladder with mild wall thickening per CT abdomen. Pryor removed during stay. Recent elective L TKA 06/22 at [facility]. Patient now presents motivated to return [...] LB dressing; Spouse does most meals, laundry (more content not included)... [facility] XR ABDOMEN 1V SUPINEon 07-09 XR ABDOMEN 1V SUPINE * * *Final Report* * * DATE [...] volume, though the pelvis was not imaged. Corporate Intern[facility] Transcribe Date/Time: Jul 09 2024 1:23A Dictated by : ALMA VERMA MD This examination was interpreted and the report reviewed and electronically signed by: ALMA VERMA MD on Jul 09 2024 1:26AM EST [id number] [facility] ECG COMPLETEon 07-08-2024 ECG COMPLETE Ventricular Rate : 9 1 BPM Atrial Rate : 91 BPM P-R Interval : 156 ms QRS Duration : 126 ms Q-T Interval : 388 ms QTC Calculation(Bazett) : 477 ms Calculated P [place] : 82 degrees Calculated R [place] : -53 degrees Calculated T [place] : 93 degrees NORMAL SINUS RHYTHM LEFT AXIS DEVIATION NON-SPECIFIC INTRA-VENTRICULAR CONDUCTION BLOCK MINIMAL VOLTAGE CRITERIA FOR LVH, MAY BE NORMAL VARIANT ( Outing product ) CANNOT RULE OUT ANTERIOR INFARCT , AGE UNDETERMINED ABNORMAL ECG NO PREVIOUS ECGS AVAILABLE Confirmed by MD PEDERSON VINAYAK ([id number]) on 07/12/2024 8:57:12 PM NAME : NICK SAN PID : [id number] : 1960 Gender : Male Race : ORD : [id number] Procedure Date : Jul 08 2024 22:59:28 Edit Date : Jul 12 2024 20:57:18 Diagnosis: NORMAL SINUS RHYTHM LEFT AXIS DEVIATION NON-SPECIFIC INTRA-VENTRICULAR CONDUCTION BLOCK MINIMAL VOLTAGE CRITERIA FOR LVH, MAY BE NORMAL VARIANT ( Brady product ) CANNOT RULE OUT ANTERIOR INFARCT , AGE UNDETERMINED ABNORMAL ECG NO PREVIOUS ECGS AVAILABLE Confirmed by MD PEDERSON VINAYAK ([id number]) on 07/12/2024 8:57:12 PM Test Reason : [place] Location : 191 : LDCARD 0107 Overread By : MD PEDERSON VINAYAK Edited By : MD PEDERSON VINAYAK Referred By : , Acquired by : JAVAD DALTON [facility] HIGH SENSITIVITY TROPONIN To n 07-08-2024 Troponin T.cardiac High sensitivity method [Mass/Vol] 35 ng/L High <12 [facility] Comment on above: Order Comment: Speci men Type: BLOOD SPECIMEN Ordering Facility: [facility] Address: [address] [facility] [place] [address] Performed By: #### 2 4323-8, 11976-2 #### [facility] CLIA [id number] [address] [place] [address] OF [facility] NURSING PROGon 07-08-2024 NURSING PROG HNO ID: [id number] Author: CHRIS COLLAZO RN Service: ? Author [...] Labs obtained. 4mg IV zofran slowly pushed (2305) Call light remains within reach. Will continue to closely monitor pt and follow plan of care. [facility] NURSING PROG HNO ID: [id number] Author: CHRIS COLLAZO RN Service: ? Author [...] throughout shift and follow plan of care/ [facility] NURSING PROG HNO ID: [id number] Author: SUMIT AKINS RN Service: Nursing Author Type: Registered Nurse Type: Nursing Progress Note Filed: 07/08/2024 12:17 Note Text: Other: ambulated from room to solarium with gait belt and walker. Family visiting with pt. Call soto in reach. [facility] SOCIAL WORKon 07-08-2024 SOCIAL WORK HNO ID: [id number] Author: LEIA GODWIN LSW Service: Social Work Author Type: Senior Pastor Type: Social Work Filed: 07/08/2024 16:17 Note Text: Summary: [facility] SOCIAL WORK PROGRESS NOTE Name: Nick San Referral to [facility] per family's request. [facility] is at capacity and cannot accept patient. Sent referral to [facility] which is also affiliated with . [facility] not in network with patient's insurance. [facility] not able to accept. 4:10 pm Patient called his dtr Carmina re: [facility]. She is okay with SW sending referral to another agency with high ratings. Patient told which agency he does not want. Patient says his hphfyd-ex-vsx works for agencies and she may be able to find him an agency that goes to his location. Signature: ALPA Black Date: July 08, 2024 Time: 3:17 PM [facility] THERAPY NTon 07-08-2024 THERAPY NT HNO ID: [id number] Author: NANCIE LESLIE PTA Service: Physical Therapy Author Type: Guideman Type: Therapy (PT/OT/Speech/Resp) Filed: 07/08/2024 14:24 Note Text: Attestation signed by Hilary Reese PT at 07/09/2024 8:33 AM I reviewed and agree with the documentation corresponding to this therapy visit. SIGNATURE: Hilary Reese PT DATE: July 09, 2024 TIME: 8:33 AM Physical Therapy Assisted Facility Treatment Summary SERVICE DATE: 07/08/2024 SERVICE TIME: 1330 to 1400 ROOM: [place] [address] PT 6 Clicks Score: 23 DISCHARGE RECOMMENDATIONS [...] a 64 year old male presenting from [facility] from 07/03-07/05 for YUMIKO, hypotension, WBC of 24, distended gallbladder with mild wall thickening per CT abdomen. Pryor removed during stay. Recent elective L TKA 06/22 at [facility]. Patient now presents motivated to return [...] (generalized), Difficulty walking-musculoskeletal TREATMENT INTERVENTIONS Therapeutic Exercise (53790), Gait Training (70780) Timed Code Treatment (minutes): 30 Skilled Treatment [...] Training, Balance Training, Neuromuscular Re-education, Wound Care (more content not included)... [facility] THERAPY NT HNO ID: [id number] Author: AYLEEN SÁNCHEZ OT/L Service: ? Author Type: Occupational Therapist Type: Therapy (PT/OT/Speech/Resp) Filed: 07/08/2024 12:18 Note Text: Occupational Therapy Assisted Facility Treatment Summary SERVICE DATE: 07/08/2024 SERVICE TIME: 1119 to 1152 ROOM: [place] [address] OT 6 Clicks Score: 19 DISCHARGE RECOMMENDATIONS [...] a 64 year old male presenting from [facility] from 07/03-07/05 for YUMIKO, hypotension, WBC of 24, distended gallbladder with mild wall thickening per CT abdomen. Pryor removed during stay. Recent elective L TKA 06/22 at [facility]. Patient now presents motivated to return [...] THERAPY DIAGNOSIS Reduced mobility-other, Decreased activities of da (more content not included)... [facility] THERAPY NT HNO ID: [id number] Author: LARY BOB PT Service: Physical Therapy Author Type: Guideman Type: Therapy (PT/OT/Speech/Resp) Filed: 07/08/2024 13:04 Note Text: Attestation signed by Lary Bob PT at 07/08/2024 1:04 PM I reviewed and agree with the documentation corresponding to this therapy visit. SIGNATURE: Lary Bob PT DATE: July 08, 2024 TIME: 1:04 PM Physical Therapy Assisted Facility Treatment Summary SERVICE DATE: 07/08/2024 SERVICE TIME: 0900 to 1000 ROOM: [place] [address] PT 6 Clicks Score: 23 DISCHARGE RECOMMENDATIONS [...] states he is thinking of going to [facility] with his daughter but unsure had questions [...] a 64 year old male presenting from [facility] from 07/03-07/05 for YUMIKO, hypotension, WBC of 24, distended gallbladder with mild wall thickening per CT abdomen. Pyror removed during stay. Recent elective L TKA 06/22 at [facility]. Patient now presents motivated to return [...] (generalized), Difficulty walking-musculoskeletal TREATMENT INTERVENTIONS Therapeutic Exercise (83313), Therapeutic Activity (03643), Gait Training (18064) Timed Code Treatment (minutes): 60 Skilled Treatment Time (minutes): 60 EXERCISE Exercises Exercise Performed: Ankle Pumps, Heel Slides, SAQ (nu-step L3 14 min.) Ankle Pumps (number of r (more content not included)... [facility] CASE MGT INJAIDEN CRISTOBALdoug 2023 CASE MGT IN [place] HNO ID: [id number] Author: ELIA GODWIN LSW Service: Social Work Author Type: Senior Pastor Type: Care Mgt Initial Assessment Filed: 07/07/2024 10:47 Note Text: Summary: Initial Assessment CARE MANAGEMENT: ASSESSMENT AND DISCHARGE PLAN SERVICE DATE: July 07, 2024 SERVICE TIME: 9:00 am PCP: Aga Benitez MD Primary Contact: Extended Emergency Contact Information Primary Emergency Contact: Becka Chao Mobile Relation: Daughter Preferred language: [place]O [place] Shop Welder needed? No Secondary Emergency Contact: MarvelDank OSVALDO Mobile Relation: Relative Preferred language: [place] Shop Welder needed? No Admission Status: Inpatient Swing Insurance Provider: [employer] MEDICARE HMO Discharge [...] Independent: Ambulation;Going to the bathroom Needs Assistance: Bathe/Shower;Dress;Meals/Me al Prep;Medication Management Dependent: Transportation to appointments/community Current Services/Equipment Current Post-Acute Service(s): DME Current DME Type: Bedside commode, Shower seat, Rolling walker Discharge Planning Patient Goal(s): Ambulate without stopping, Better mobility, Increase strength, Be able to go home, Independent living [place] of Choice Explained: [place] of Choice Given: Yes Level of Care Discussed: Home Care (Family requesting [facility] - to see CC doc) Discharge Planning Participant(s): Patient Patient/Family Comments: I just need to be able to get in/out of bed and walk to the bathroom Caregiver Assessment: Caregiver is ready, willing and able to meet the patient's needs as recommended by the inter-professional team: Yes Name of Caregiver: Claudy (dtr) and Dank (son-in-law) willing to take patient to their home in [place] if needed Transport at Discharge: Family Needs Prior to Discharge: Needs Prior to Discharge: To Be Determined;Facility or Agency Choices;Home Care Order Post-Acute Discharge Plan: Home with [facility] vs to NH with dtr AND son-in-law (only if really needed, per patient) Patient lives w/ Cathie in a first floor apartment. has chronic back pain. She does not drive. Dtr Carmina and son-in-law Dank from [place] are willing to take patient to their home if needed upon dc. Patient is hoping to return to his apt. SIGNATURE: ALPA Black PATIENT NAME: Nick San DATE: July 07, 2024 TIME: 10:42 AM CONTACT #: [id number] [facility] THERAPY NTon 07-07-2024 THERAPY NT HNO ID: [id number] Author: ESTRELLA CROUCH OTR/L Service: Occupational Therapy Author Type: Hand Fabric Cutter Type: Therapy (PT/OT/Speech/Resp) Filed: 07/08/2024 07:38 Note Text: Attestation signed by Estrella Crouch OTR/L at 07/08/2024 7:38 AM I reviewed and agree with the documentation corresponding to this therapy visit. SIGNATURE: NICHOLAS Jones DATE: July 08, 2024 TIME: 7:38 AM Occupational Therapy Assisted Facility Treatment Summary SERVICE DATE: 07/07/2024 SERVICE TIME: 1458 to 1553 ROOM: [place] [address] OT 6 Clicks Score: 19 DISCHARGE RECOMMENDATIONS [...] a 64 year old male presenting from [facility] from 07/03-07/05 for YUMIKO, hypotension, WBC of 24, distended gallbladder with mild wall thickening per CT abdomen. Pryor removed during stay. Recent elective L TKA 06/22 at [facility]. Patient now presents motivated to return [...] Tub Bench, Walker- Wheeled, Other: See Comment (transpo (more content not included)... [facility] THERAPY NT HNO ID: [id number] Author: HILARY REESE, PT Service: Physical Therapy Author Type: Physical Therapist Type: Therapy (PT/OT/Speech/Resp) Filed: 07/07/2024 14:21 Note Text: Physical Therapy Assisted Facility Treatment Summary SERVICE DATE: 07/07/2024 SERVICE TIME: 1311 to 1352 ROOM: [place] [address] PT 6 Clicks Score: 22 DISCHARGE RECOMMENDATIONS Home PT Recommended Discharge Disposition Comments: Home PT with / supervision from spouse, but not physical assist [...] a 64 year old male presenting from [facility] from 07/03-07/05 for YUMIKO, hypotension, WBC of 24, distended gallbladder with mild wall thickening per CT abdomen. Pryor removed during stay. Recent elective L TKA 06/22 at [facility]. Patient now presents motivated to return to home setting with 27/04 supervision and assist from spouse. Relevant Past Medical History: HTN, HFrEF, T2DM, Parkinson's disease, Possible stroke per daughter, L TKA 06/22/; HOME LIVING Patient Lives With: Spouse (FIrst [...] (generalized), Difficulty walking-musculoskeletal TREATMENT INTERVENTIONS Therapeutic Exercise (58783), Gait Training (54289) Timed Code Treatment (minutes): 41 Skilled Treatment Time (minutes): 41 EXERCISE Exercises Exercise Performed: (nu-step L3 15 min. Parkinson bal ex. seated only) Exercise: Seated ankle pumps x 30, quad sets x 10 with 2 second holds, SAQs x 5 with trunk extension as a compensatory mechanism (advised ag (more content not included)... [facility] THERAPY NT HNO ID: [id number] Author: NANCIE LESLIE PTA Service: Physical Therapy Author Type: Guideman Type: Therapy (PT/OT/Speech/Resp) Filed: 07/07/2024 12:33 Note Text: Attestation signed by Hilary Reese, PT at 07/07/2024 4:03 PM I reviewed and agree with the documentation corresponding to this therapy visit. SIGNATURE: Hliary Reese PT DATE: July 07, 2024 TIME: 4:03 PM Physical Therapy Assisted Facility Treatment Summary SERVICE DATE: 07/07/2024 SERVICE TIME: 944 to 1044 ROOM: [place] [address] PT 6 Clicks Score: 18 DISCHARGE RECOMMENDATIONS [...] Bearing Status: WBAT SUBJECTIVE Patient states you timothye a god send to this place I [...] a 64 year old male presenting from [facility] from 07/03-07/05 for YUMIKO, hypotension, WBC of 24, distended gallbladder with mild wall thickening per CT abdomen. Pryor removed during stay. Recent elective L TKA 06/22 at [facility]. Patient now presents motivated to return [...] THERAPY DIAGNOSIS Reduced mobility-other, Muscle Weakness (generalized), D (more content not included)... [facility] HISTORY PHYSICALon HISTORY PHYSICAL HNO ID: [id number] Author: IRMA SALAZAR APRN.LEAD PORTFOLIO MANAGER Service: Hospital Medicine Author Type: Nurse Practitioner Type: H&P Filed: 07/06/2024 20:32 Note Text: Attestation signed by Aurelio Granda MD at 07/08/2024 2:01 PM [facility] STAFF PHYSICIAN NOTE OF PERSONAL INVOLVEMENT IN [...] UTI (urinary tract infection) (POA: Yes) Aurelio Granda MD, [facility] Staff,Dept of Hospital Medicine July 08, 2024 2:00 PM Pager:Click here to page DEPARTMENT OF HOSPITAL MEDICINE HISTORY AND PHYSICAL EXAM SERVICE DATE: 07/06/2024 SERVICE TIME: 12:54 PM Primary Care Physician: Aga Benitez MD NIGHT AND WEEKEND COVERAGE: [facility] Medicine [place] 7a-7p Page 13066 7p-3k Subjective CHIEF COMPLAINT: rehabilitation following hospitalization HPI: This is a 64 year old male with PMH DMII, BPH, Parkinson's disease, depression, diastolic HF, admitted to [facility] on 06/22/2024 for elective left total [...] without much success. Patient was discharged with Pryor in place due to acute urinary retention noted on admission to [facility]. Patient was evaluated by therapy, thus patient was transferred to [facility] for further services. Patient was progressing well while at [place] and successfully passed voiding trial. On 07/02/2024 [...] was deemed appropriate to transfer patient to [facility] for higher level of care. Patient was admitted to [facility] on 07/03/2024. Urine cx noted 10,000 -<50,000 CFU/ml Gram negative bacilli. Patient was treated with IV Ceftriaxone and leukocytosis improved to 11k; transitioned to PO ATB at [place]. Patient received IVF and BP normalized; anti-HTN meds restarted slowly and tolerated Amlodipine/Clonidine. YUMIKO improved with IVF. Lisinopril dose was decreased and HCTZ was stopped. RUQ US was negative for gallbladder findings and GI did not recommend any further intervention. Once medically stable, patient was transferred back to [facility] for further services. Today, patient returned from f/u ortho appointment. He reports severe pain to left knee; declined pain medication prior to appointment. He reports ortho removed lianet and requests further ROM exercises. Patient denies ABD pain, constipation, urinary sx. He reports he had BM overnight and is urinating without issue. Patient is hopeful to return home at [place]. Code status updated in MemfoACT per patient wishes. PAST MEDICAL HISTORY Diagnosis [...] Never Smokeless tobacco: Never Vaping Use Vaping sta (more content not included)... [facility] NURSING PROGon 07-06-2024 NURSING PROG HNO ID: [id number] Author: TERRA PEDERSEN RN Service: Nursing Author Type: Registered Nurse Type: Nursing Progress Note Filed: 07/06/2024 15:59 Note Text: Patient sitting up in w/c at bedside. All treatments and procedures were explained. Pt verbalized understanding. Pt to be picked up by [facility] at 9:30 this morning for ortho appointment. No questions or concerns were voiced at this time. Offered pain med prior to appointment. Pt refused at this time. No family present. [facility] NUTRITIONon 07-06-2024 NUTRITION HNO ID: [id number] Author: MIN JAIN RD Service: Nutrition Therapy Author Type: Registered [...] (172 lb 6.4 oz) Dosing Weight Type: [place] body weight Estimated kilocalorie needs: 1015-2274 Calorie Calculation Method: 25-30 kcals/kg Estimated protein needs (grams): 78-93 Grams protein determined by: 1.0 - 1.2 g/kg Diet Orders (From admission, onward) Start Ordered 07/05/24 1530 DIET REGULAR START NOW 07/05/24 1524 Anthropometrics: Height: 180.3 cm (5' 11) Weight: 99.4 kg (219 lb 2.2 oz) Usual Weight: 113.4 kg (250 lb) chart review 02/25-06/29 (1 yr EXERCISE RIDER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 Weight change percentage over time: 7.5% loss @ ~ 3mo w/ some of the recent loss probably unintended w/ stated <50% meal intake >2 mo. EXERCISE RIDER r/t hypogeusia, stable since [place] 07/01 Weight Change: Potentially clinically significant but does not meet criteria to support malnutrition diagnosis Physical Exam: Subcutaneous fat loss: No fat loss Muscle loss: No muscle loss Potential micronutrient deficiency: Skin (Lknee incision) Edema/Ascites: No edema GI Symptoms: Nausea, Constipation, Hypogeusia/dysgeusia (attributes dyspepsia to sweets AND soda intake @ bedside bfore bed, new hypoguesia >2 mo EXERCISE RIDER , Constipation Hx resolved EXERCISE RIDER stated) Functional Status: No Change Potential Signs of Inflammation: Hypoalbuminemia, Chronic condition, Leukocytosis DM HTN CHF MNT Billing: $ Initial Assessment: 1-15 minutes SIGNATURE: Min Jain RD PATIENT NAME: Nick San DATE: July 06, 2024 TIME: 12:13 PM [facility] Orthopedic Visit Reporton Orthopedic Visit Report [facility] [address] [place] [address] OFFICE VISIT Date of Service: 07/06/24 MR#: [id number] Acct: [id number] Name: NICK SAN Rep #: [id number] : 1960 Provider: Dr. Mac rodriguez DO Age/Sex: 64/M Location: [facility] Status: Signed Intake Vital Signs 03/17/24 09:45 06/27/24 12:55 Height 5 ft 9 in 5 ft 9 in Intake Visit Reasons: left knee Is patient in pain?: Yes Allergies acetaminophen (From Vicodin) Allergy (Intermediate, Verified 07/06/24 10:36) Nausea/Vom/Diarrhea hydrocodone (From Vicodin) Allergy (Intermediate, Verified 07/06/24 10:36) Nausea/Vom/Diarrhea tramadol Allergy (Intermediate, Verified 07/06/24 10:36) Nausea/Vom/Diarrhea Have you fallen in the past year?: No [facility] Medical History Wears glasses Depression Bladder disease High cholesterol Back pain Parkinson's disease Stroke/cerebrovascular accident Heartburn Non-smoker History of pain when walking History of edema History of echocardiogram Cardiology follow-up encounter Bilateral primary osteoarthritis of knee Pain in both knees Family history of prostate problems Kidney stones Hypertension Diabetes History of back problems Arthritis Surgical History No pertinent past surgical history Family History Mother Hypertension Myocardial infarction Colon cancer CVA (cerebral vascular accident) Depression Diabetes Brother Colon cancer Cancer STOMACH CVA (cerebral vascular accident) Hypertension Father Hypertension Sister Diabetes Social History household members: spouse current occupational status: retired current occupation: [employer] Smoking Status: Never smoker Electronic Cigarette Use: not used alcohol intake: never substance use type: does not use what type of physical activity do you participate in: none seatbelt use: sometimes do you feel safe at home: Yes HPI left knee Details: This documentation accurately reflects the service provided and the decisions made by me, Dr. Mac Ge, DO 07/06/24801. Part of today???s visit was documented by [ ], acting as scribe. NICK SAN is a 64 year old M here today for s/p Left total knee arthroplasty CT guided Robotic Assisted dos 06/22/24.Patient notes that he continues to have knee pain he is minimizing his oxycodone use. He is staying at a facility in [place] due to his kidney and liver. Patient notes that he was frustrated with his care at [facility] and notes that he laid in bed for 3 days when he was transferred to [place]. He has difficulty getting out of bed. He is doing physical therapy daily at the facility he is at, although he isnt sure if its a hospital or a facility. Patient is being given pain medication although he is unsure what it is, and he does not have a packet with him. His incision is getting cleaned daily. Ortho Exam General General: Yes no acute distress Neurologic: Yes alert and Yes oriented x3 Psychologic: Yes reasonable and appropriate Right Knee Knee ROM: Yes ROM-Extension -20 to 0 (-25) and Yes ROM-Flexion 0-140 (95) Left Knee Skin/Wound: Yes ecchymosis, No erythema and Yes swelling Homans Sign: No Knee ROM: No ROM-Extension -20 to 0 (-25) and No ROM-Flexion 0-140 (95) Stability: NML: Valgus 0, NML: Valgus 30, NML: Varus 0 and NML: Varus 30 KNEE: Incision well-approximated no signs of infection no signs of DVT. Supplemental Info 06/22/2024 left total knee arthroplasty: Dr. Ge 11/11/2023 x-ray right knee: Moderate tricompartmental DJD worse medial and patellofemoral compartment large osteophytes posterior tibia trochlea and patella 11/11/2023 x-ray left knee: Advanced medial compartment arthrosis [id number] moderate patellofemoral and lateral compartment 04/30/2023 x-ray left knee: Advanced medial compartment arthrosis [id number] moderate patellofemoral and lateral compartment 04/30/2023 x-ray right knee: Moderate tricompartmental DJD worse medial and patellofemoral compartment large osteophytes posterior tibia trochlea and patella Coding Level of Care Code Global Post Op Diagnoses Orthopedic aftercare Z47.89 Assessment and Plan Assessment and Plan (1) Orthopedic aftercare: Plan Spoke with the patient about working on knee range of motion and explained working on knee extension is important. He should work on stretching his posterior knee. He needs to continue with physical therapy. Patient should have his incision washed daily. He should continue to wear the compressions stockings. Spoke with the patient about the importance of pain medica (more content not included)... [facility] SOCIAL WORKon 07-06-2024 SOCIAL WORK HNO ID: [id number] Author: LEIA GODWIN LSW Service: Social Work Author Type: Senior Pastor Type: Social Work Filed: 07/06/2024 17:01 Note [...] Urinary Retention Malnutrition of Mild Degree (Formerly [facility]) Uti (Urinary Tract Infection) Yumiko (Acute Kidney Injury) (Formerly [facility]) Attendees Present at Rounds: CM, LEAD PORTFOLIO MANAGER, NM< OT, PT, R.D, SW Needs Discussed [...] pain. Dtr Carmina/Dank are contacts. Live in [place]. PT/OT To katie today RN Lianet removed today 07/06. Nursing: Discharge Planning Intervention(s) [...] DOCUMENTED BY: ALPA Black PATIENT NAME: Nick San DATE: July 06, 2024 TIME: 4:59 PM CSN: [id number] [facility] THERAPY NTon 07-06-2024 THERAPY NT HNO ID: [id number] Author: ROLA STEVENS OTR/[place] Service: Occupational Therapy Author Type: Occupational Therapist Type: Therapy (PT/OT/Speech/Resp) Filed: 07/06/2024 16:27 Note Text: Summary: OT Evaluation Occupational Therapy Assisted Facility Evaluation Summary SERVICE DATE: 07/06/2024 SERVICE TIME: 1300 to 1335 ROOM: [place] [address] OT 6 Clicks Score: 17 DISCHARGE RECOMMENDATIONS [...] a 64 year old male presenting from [facility] from 07/03-07/05 for YUMIKO, hypotension, WBC of 24, distended gallbladder with mild wall thickening per CT abdomen. Pryor removed during stay. Recent elective L TKA 06/22 at [facility]. Patient now presents motivated to return [...] Owned: Commode- 3 in 1, Extended Tub B (more content not included)... Normal [facility] THERAPY NT HNO ID: [id number] Author: HILARY REESE, PT Service: Physical Therapy Author Type: Physical Therapist Type: Therapy (PT/OT/Speech/Resp) Filed: 07/06/2024 14:32 Note Text: Summary: PT evaluation note Physical Therapy Assisted Facility Evaluation Summary SERVICE DATE: 07/06/2024 SERVICE TIME: 1342 to 1411 ROOM: [place] [address] PT 6 Clicks Score: 18 DISCHARGE RECOMMENDATIONS [...] a 64 year old male presenting to [facility] s/p hospitalization at [facility] s/p YUMIKO, hypotension and elevated white count. [...] a 64 year old male presenting from [facility] from 07/03-07/05 for YUMIKO, hypotension, WBC of 24, distended gallbladder with mild wall thickening per CT abdomen. Pryor removed during stay. Recent elective L TKA 06/22 at [facility]. Patient now presents motivated to return [...] Difficulty walking-musculoskeletal TREATMENT INTERVENTIONS Evaluation, Therapeutic Exercise ( (more content not included)... [facility] CASE MANAGEMon 07-05-2024 CASE MANAGEM HNO ID: [id number] Author: ?, ?, ? Service: ? Author Type: ? Type: Care Mgt Progress Note Filed: 07/05/2024 17:28 Note Text: [facility] PRECERT NOTE [employer] MEDICARE HMO approved Assisted Facility for [facility] . Precert approved through 07/07/24. For any additional questions regarding approvals, transport or care management needs, please contact the CM assigned to this patient in the Treatment Team. SIGNATURE: Ivana Winkler DATE: July 05, 2024 TIME: 5:28 PM [facility] CASE MANAGEM HNO ID: [id number] Author: MARY KATE LAZO RN Service: ? Author Type: Registered Nurse Type: Care Mgt Progress Note Filed: 07/05/2024 12:48 Note Text: CARE MANAGEMENT DISCHARGE NOTE SERVICE DATE: July 05, 2024 SERVICE TIME: 12:47 PM Admission Date: 07/03/2024 LOS: 2 days Discharge Arrangement Discharge Arrangement: Assisted Facility Was an expedited discharge program used?: No Services Arranged - Return to SNF Provider Name: [facility] Caregiver Assessment Caregiver is ready, willing and able to meet the patient's needs as recommended by the inter-professional team: Yes Name of Caregiver: [facility] Transportation Arrangements Transportation Arrangements: Ambulance Transportation Agency and Phone #:: [facility] [phone] Date of Trip: 07/05/24 Time of Trip: 1400 Type of Service: BLS Non-emergency Is Patient Medicaid Pending?: No Was transportation financial coverage discussed with family?: Patient;Family Research Quality Assurance Analyst Location: [place] Destination: [facility] Financial Care Management Responsibility: None Handoff Communication: Handoff to: Primary Care Physician Primary Care Physician Name/Phone: Aga Benitez MD, Summary of care sent to PCP and SNF. Additional Information: N/A DC order written for patient to return to SNF. DC orders and instructions will be in EPIC for [facility]. [facility] transport setup for 1400. HOME HEALTH CLINICAL LIAISON, nurse, patient and his daughter and SNF are all aware of transport time. SIGNATURE: Mary Kate Lazo RN PATIENT NAME: Nick San DATE: July 05, 2024 TIME: 12:47 PM CONTACT #: [phone] Normal [facility] CBC panel Auto (Bld)on 07-05 Erythrocyte distribution width (RBC) [Ratio] 12.4 % Normal 11.5-15.0 [facility] Comment on above: Order Comment: Specdamien mitchell Type: BLOOD SPECIMEN Ordering Facility: [facility] Address: [address] [place] [address] Performed By: #### 5 8410-2 #### [facility] CLIA [id number] [address] [place] [address] [place] Hematocrit (Bld) [Volume fraction] 30.3 % Low 39.0-51.0 [facility] Comment on above: Order Comment: Kassie mitchell Type: BLOOD SPECIMEN Ordering Facility: [facility] Address: [address] [place] [address] Performed By: #### 5 8410-2 #### [facility] CLIA [id number] [address] [place] [address] [place] Hemoglobin (Bld) [Mass/Vol] 9.8 g/dL Low 13.0-17.0 [facility] Comment on above: Order Comment: Kassie mitchell Type: BLOOD SPECIMEN Ordering Facility: [facility] Address: [address] [place] [address] Performed By: #### 5 8410-2 #### [facility] CLIA [id number] [address] [place] [address] [place] MCH (RBC) [Entitic mass] 30.1 pg Normal 26.0-34.0 [facility] Comment on above: Order Comment: Speci men Type: BLOOD SPECIMEN Ordering Facility: [facility] Address: [address] [place] [address] Performed By: #### 5 8410-2 #### [facility] CLIA [id number] [address] MCHC (RBC) [Mass/Vol] 32.3 g/dL Normal 30.5-36.0 [facility] Comment on above: Order Comment: Speci men Type: BLOOD SPECIMEN Ordering Facility: [facility] Address: [address] [place] [address] Performed By: #### 5 8410-2 #### [facility] CLIA [id number] [address] MCV (RBC) [Entitic vol] 92.9 fL Normal 80.0-100.0 [facility] Comment on above: Order Comment: Speci men Type: BLOOD SPECIMEN Ordering Facility: [facility] Address: [address] [place] [address] Performed By: #### 5 8410-2 #### [facility] CLIA [id number] [address] Nucleated RBC (Bld) [#/Vol] 10*3/uL Normal <0.01 [facility] Comment on above: Order Comment: Speci men Type: BLOOD SPECIMEN Ordering Facility: [facility] Address: [address] [place] [address] Performed By: #### 5 8410-2 #### [facility] CLIA [id number] [address] Platelet mean volume (Bld) [Entitic vol] 8.8 fL Low 9.0-12.7 [facility] Comment on above: Order Comment: Speci men Type: BLOOD SPECIMEN Ordering Facility: [facility] Address: [address] [place] [address] Performed By: #### 5 8410-2 #### [facility] CLIA [id number] [address] Platelets (Bld) [#/Vol] 500 10*3/uL High 150-400 [facility] Comment on above: Order Comment: Kassie men Type: BLOOD SPECIMEN Ordering Facility: [facility] Address: [address] [place] [address] Performed By: #### 5 8410-2 #### [facility] CLIA [id number] [address] OF [facility] RBC (Bld) [#/Vol] 3.26 10*6/uL Low 4.20-6.00 [facility] Comment on above: Order Comment: Doriani men Type: BLOOD SPECIMEN Ordering Facility: [facility] Address: [address] [place] [address] Performed By: #### 5 8410-2 #### [facility] CLIA [id number] [address] WBC (Bld) [#/Vol] 11.98 10*3/uL High 3.70-11.00 [facility] Comment on above: Order Comment: Kassie men Type: BLOOD SPECIMEN Ordering Facility: [facility] Address: [address] [place] [address] Performed By: #### 5 8410-2 #### [facility] CLIA [id number] [address] CNDSon 07-05-2024 CNDS HNO ID: [id number] Author: ABILIO YOU DO Service: Hospital Medicine Author Type: Physician Type: Discharge Summary Filed: 07/05/2024 13:22 Note Text: DISCHARGE SUMMARY PATIENT NAME: Nick San ADMISSION DATE: 07/03/2024 DISCHARGE DATE: 07/05/2024 ATTENDING PHYSICIAN: Abilio You DO Code Status: Prior Highest Readmission Risk Score: 18 The 30 day readmissions risk score is derived from an internally validated risk model which evaluates patient level characteristics, utilization history, medication orders and lab results up until the day of discharge. Patients with a score of 40 or above are considered highest risk for readmission. Specific patient level drivers will be listed at the bottom of the summary. CONSULTING TEAMS DURING HOSPITALIZATION: Treatment Team: Attending Provider: Abilio You DO Consulting: Lizbeth Ferrara MD REASON FOR HOSPITALIZATION: Hypotension, YUMIKO, Leukocytosis DIAGNOSIS: Principal Problem (Resolved): YUMIKO (acute kidney injury) (HCC) (POA: Yes) Active Problems: Status post total left knee replacement (POA: Yes) Chronic combined systolic and diastolic heart failure (HCC) (POA: Yes) Essential (primary) hypertension (POA: Yes) Type 2 diabetes mellitus without complication, without long-term current use of insulin (HCC) (POA: Yes) Parkinson's disease with dyskinesia (HCC) (POA: Yes) Resolved Problems: UTI (urinary tract infection) (POA: Yes) Nausea and vomiting (POA: Yes) OPERATIONS DURING HOSPITALIZATION: None PROCEDURES DURING HOSPITALIZATION: No procedures performed HOSPITAL COURSE: Nick San is a 64 year old male presented with past medical history of Parkinsonism, spinal stenosis, HTN, DM2, chronic combined systolic and diastolic CHF (EF 54% grade 1 diastolic dysfunction). In 03/2024 he was found to have HFrEF (EF45%) and seen by cardiology. This was felt to be due HTN. Amyloid workup was negative and his EF improved on GDMT. He underwent TKA on 06/22/[address] Ge at [facility]. His post op course was complicated by YUMIKO with peak telephone lineman unknown but was 1.48 at d/c. He also had urinary retention and was discharged to [facility] with a pryor catheter. The pryor catheter was able to be removed and he denies any difficulty urinating. On 07/03 am he was noted to have hypotenstion with SBP in 80s. He was given 500cc bolus and labs were checked. CBC showed WBC 24.1 hg 11 plt 462. CMP with Na 132 bun 29 telephone lineman 1.76. LFTs normal. A CT A/P was obtained and showed Mildly distended gallbladder with mild wall thickening. No gallstone identified. Acalculous cholecystitis is not excluded. UA was positive and he was started on ceftriaxone and flagyl. On admission he reported feeling well. Denies any dysuria. He initially reported nausea and no appetite but daughter clarified that this was just after surgery and he has been feeling well. He was continued on ceftriaxone and flagyl. GI was consulted. A RUQ Ultrasound was done and did not show cholecystitis. No intervention was recommended. Antibiotics were adjusted to ceftriaxone to cover UTI. Urine culture showed insignificant colony count of GNB. PVR were checked and initially high. His flomax was increased and he was able to empty his bladder if he urinates when standing. He will continue cefdinir for treatment of UTI His blood pressure medications were slowly readded. He tolerated clonidine and amolodipine. His lisinopril was changed to 10mg (from 20mg). Aldactone and HCTZ were still held. He can restart aldactone tomorrow. Monitor kidney function and blood pressure and restart HCTZ or titrate up lisinopril as tolerated. Continue post orthopedic care as before. Plan of care reviewed with Irma Salazar NP at [facility] He was discharged to [facility] in good condition. Transitions of Care Critical Issues: LAB MONITORING NEEDED: BMP for kidney function VILLALOBOS MEDICATION CHANGES: Stop lisinopril HCTZ. Restarted lisinopril at 10mg daily. Can titrate as above if needed LABS AND PROCEDURES PENDING AT DISCHARGE: No pending results. PATIENT CONDITION AT DISCHARGE: Stable DISCHARGE DISPOSITION: Assisted Facility Assisted Facility Discharge Physical Exam: VITAL SIGNS: BP 107/58 Pulse 70 Temp 36.4 ?C (97.5 ?F) (Oral) Resp 17 Ht 180.3 cm (5' 11) Wt 101 kg (222 lb 10.6 oz) SpO2 98% BMI 31.06 kg/m? GENERAL: Alert, no distress, cooperative LUNGS: Lungs clear to auscultation, Good diaphragmatic excursion CARDIAC: Normal S1 and S2; no rubs, murmurs, or gallops ABDOMEN: Abdomen soft, non-tender, BS normal, EXTREMITIES: Extremities normal, no deformities, edema, clubbing or skin discoloration. INFORMATION PROVIDED TO PATIENT: see discharge instructions WOUND/SURGICAL SITE CARE: per orthopedics DIET: Resume pre-hospital diet ACTIVITY: Resume pre-hospital activity ALLERGIES Allergen Reactions Acetaminophen GI Upset Hy (more content not included)... [facility] CONSULT PROGon 07-05-2024 CONSULT PROG HNO ID: [id number] Author: LIZBETH FERRARA MD Service: Gastroenterology Author Type: Physician Type: Consult Progress Note Filed: 07/05/2024 14:40 Note Text: GASTROENTEROLOGY CONSULT PROGRESS NOTE Patient Name: Nick San SERVICE DATE: July 05, 2024 SERVICE TIME: 12:23 PM ASSESSMENT: 1. Nausea and vomiting - now resolved 2. CT suggestive of acalculous cholecystitis -- Normal RUQ US and LFT's 3. Constipation 4. Leukocytosis 5. YUMIKO / UTI 6. Anemia with component of iron deficiency 7. S/p LTKR (06/22/2024) now on Eliquis 8. Parkinson's disease 9. FHx CRC (Mother and Brother) 10. Multifactorial normocytic anemia PLAN - Colace 100 mg BID - Increase Miralax 17g BID - Minimize narcotic use as able - Encourage ambulation - Atb per IM (Roephin - Avoid IV iron in setting of acute infection - Regular diet - Stool for OB - Serial CBC and CMP - As patient is asymptomatic at this time will continue to monitor. No plans for inpatient EGD or HIDA with CCK unless symptoms return. - Recommend outpatient endoscopic evaluation for anemia once recovers from left TKR and acute medical issues, sooner based on clinical course Patient discussed with mid level provider. Villalobos findings confirmed. Plan as outlined. Lizbeth Ferrara MD July 05, 2024 2:39 PM INTERVAL HPI: Patient reports eating breakfast without difficulty. Denies pain or difficulty swallowing. Has occasional heartburn. Denies abdominal pain, N/V. C/O constipation. No BM documented since arrival. Leukocytosis improving, WBC 21>11.98. Noted mild anemia which appears to be following recent TKR- relatively stable. Hgb 9.8. LFTs NL. PHYSICAL EXAM: Patient Vitals for the past 24 hrs: BP Temp Temp src Pulse Resp SpO2 07/05/24 1151 107/58 36.4 ?C (97.5 ?F) Oral 70 17 98 % 07/05/24 0801 144/74 36.7 ?C (98.1 ?F) Oral 77 17 95 % 07/05/24 0537 131/69 36.4 ?C (97.5 ?F) Oral 73 18 96 % 07/04/24 2345 131/71 36.9 ?C (98.4 ?F) Oral 75 17 94 % 07/04/24 1946 132/79 36.4 ?C (97.5 ?F) Oral 83 18 98 % 07/04/24 1524 120/61 37.4 ?C (99.3 ?F) Axillary 74 18 95 % GENERAL: Alert AND oriented x 3. Cooperative. NAD EYES: No scleral icterus SKIN: Pale in color. No jaundice LUNGS: Clear to auscultation anteriorly CARDIAC: RRR ABDOMEN: BS x 4. Abdomen obese and soft, non tender, non distended, no palpable masses or organomegaly. No guarding or rebound tenderness elicited EXTREMITIES: No upper or lower extremity edema. L knee bandage MEDICATIONS: Current Facility-Administered Medications Medication Dose Route Frequency atorvastatin 20 mg tab(s) (LIPITOR) 20 mg ORAL AT BEDTIME citalopram 40 mg tab(s) (CeleXA) 40 mg ORAL DAILY carbidopa-levodopa 25-100 mg 1 tablet (SINEMET 25-100) 1 tablet ORAL 3 times per day cloNIDine HCl 0.2 mg tab(s) (CATAPRES) 0.2 mg ORAL BID dextrose 40 % 15 g 15 g ORAL PRN Or glucagon 1 mg injection 1 mg INTRAMUSCULAR PRN Or dextrose 10% iv bolus 12.5 g INTRAVENOUS PRN NaCl 0.9% iv flush bag 20 mL INTRAVENOUS PRN ondansetron orally disintegrating 4 mg tab(s) (ZOFRAN ODT) 4 mg ORAL q 6 H PRN Or ondansetron (PF) 4 mg injection (ZOFRAN) 4 mg INTRAVENOUS q 6 H PRN docusate sodium 100 mg cap(s) (COLACE) 100 mg ORAL BID polyethylene glycol 3350 17 g packet 17 g ORAL DAILY acetaminophen 650 mg tab(s) (TYLENOL) 650 mg ORAL q 6 H PRN oxyCODONE IR 5 mg tab(s) (ROXICODONE) 5 mg ORAL q 6 H PRN insulin lispro injection (rapid acting) (ADMElog) SUBCUTANEOUS w MEALS cefTRIAXone iv piggyback 1 g in dextrose (iso-osmotic) 50 mL (ROCEPHIN) 1 g INTRAVENOUS q 24 H melatonin 3 mg tab(s) 3 mg ORAL AT BEDTIME PRN amLODIPine 10 mg tab(s) (NORVASC) 10 mg ORAL DAILY tamsulosin 0.8 mg cap(s) (FLOMAX) 0.8 mg ORAL DAILY enoxaparin 40 mg injection (LOVENOX) 40 mg SUBCUTANEOUS q 24 HR lisinopril 10 mg tab(s) (ZESTRIL) 10 mg ORAL DAILY LABS: CBC, Coags, BMP, Mg, Phos Recent Labs 07/05/24 0632 07/05/24 0607/04/2431107/03/24 1120 WBC 11.98* -- 21.05* 24.55* HB 9.8* -- 9.6* 9.8* HCT 30.3* -- 29.0* 29.7* PLT 500* -- 423* 438* NA -- 137 134* 134* K -- 4.3 4.1 4.0 CHLOR -- 103 100 99 CO2 -- 26 22 26 BUN -- 28* CREAT -- 1.20 1.30* 1.63* GLUC -- 121* 108* 131* CA -- 9.5 8.7 9.0 MG -- -- 2.4* -- Liver Function, Amylase, AND Lipase Recent Labs 07/05/24 0631 07/04/2431107/03/24 1120 TPROT 6.5 6.2* 6.2* ALB 3.7* 3.3* 3.6* ALT <5* <5* <5* AST 14 12* 10* ALKPHOS 87 85 82 TBILI 0.4 0.6 0.7 LIPASE -- -- 63* MISC LABS: 07/02/2024 UA 10,000 -<50,000 CFU/ml Gram negative bacilli Comment: Insignificant colony count. No further workup. 07/03/2024 COVID, Influenza A/B, RSV (-) Latest Ref Rng 07/04/2024 Iron 41 - 186 ug/dL 20 (L) TIBC 232 - 386 ug/dL 209 (L) Transferrin Saturation 15.0 - 57.0 % 9.6 (L) Ferritin 30.3 - 565.7 ng/mL 508.0 Vitamin B12 232 - 1,24 (more content not included)... Normal [facility] Comprehensive metabolic 2000 panelon 07-05-2024 Albumin [Mass/Vol] 3.7 g/dL Low 3.9-4.9 [facility] Comment on above: Order Comment: Speci men Type: BLOOD SPECIMENOrdering Facility: [facility] Address: [address] [place] [address] Performed By: #### 2 4323-8 ####[facility] [id number] [address] [place] [facility] ALP [Catalytic activity/Vol] 87 U/L Normal 38-113 [facility] Comment on above: Order Comment: Speci men Type: BLOOD SPECIMENOrdering Facility: [facility] Address: [address] [place] [address] Performed By: #### 2 4323-8 ####[facility] [id number] [address] [place] ALT [Catalytic activity/Vol] U/L Low 10-54 [facility] Comment on above: Order Comment: Speci men Type: BLOOD SPECIMENOrdering Facility: [facility] Address: [address] [place] [address] Performed By: #### 2 4323-8 ####[facility] [id number] [place] [address] [place] Anion gap [Moles/Vol] 8 mmol/L Normal 8-15 [facility] Comment on above: Order Comment: Speci men Type: BLOOD SPECIMENOrdering Facility: [facility] Address: [address] [place] [address] Performed By: #### 2 4323-8 ####[facility] [id number] [address] AST [Catalytic activity/Vol] 14 U/L Normal 14-40 [facility] Comment on above: Order Comment: Speci men Type: BLOOD SPECIMENOrdering Facility: [facility] Address: [address] [place] [address] Performed By: #### 2 4323-8 ####[facility] [id number] [place] [address] [place] Bilirubin [Mass/Vol] 0.4 mg/dL Normal 0.2-1.3 [facility] Comment on above: Order Comment: Speci men Type: BLOOD SPECIMENOrdering Facility: [facility] Address: [address] [place] [address] Performed By: #### 2 4323-8 ####[facility] [id number] [place] [address] [place] Calcium [Mass/Vol] 9.5 mg/dL Normal 8.5-10.2 [facility] Comment on above: Order Comment: Speci men Type: BLOOD SPECIMENOrdering Facility: [facility] Address: [address] [place] [address] Performed By: #### 2 4323-8 ####[facility] [id number] [place] [address] [place] Chloride [Moles/Vol] 103 mmol/L Normal 98-107 [facility] Comment on above: Order Comment: Speci men Type: BLOOD SPECIMENOrdering Facility: [facility] Address: [address] [place] [address] Performed By: #### 2 4323-8 ####[facility] [id number] [place] [address] [place] CO2 [Moles/Vol] 26 mmol/L Normal 22-30 [facility] Comment on above: Order Comment: Speci men Type: BLOOD SPECIMENOrdering Facility: [facility] Address: [address] [place] [address] Performed By: #### 2 4323-8 ####[facility] [id number] [place] [address] [place] Creatinine [Mass/Vol] 1.20 mg/dL Normal 0.73-1.22 [facility] Comment on above: Order Comment: Speci men Type: BLOOD SPECIMENOrdering Facility: [facility] Address: [address] [place] [address] Performed By: #### 2 4323-8 ####[facility] [id number] [address] [place] Creatinine and Glomerular filtration rate.predicted panel (S/P/Bld) 67 mL/min/1.73m??? Normal >=60 [facility] Comment on above: Order Comment: Speci men Type: BLOOD SPECIMENOrdering Facility: [facility] Address: [address] [place] [address] Result Comment: Edie mated Glomerular Filtration Rate (eGFR) is calculated using the 2020 CKD-EPI creatinine equation. This equation utilizes serum creatinine, sex, and age as parameters. The creatinine assay has traceable calibration to isotope dilution-mass spectrometry. Refer to KDIGO guidelines for clinical interpretation. In patients with unstable renal function, e.g. those with acute kidney injury, the eGFR may not accurately reflect actual GFR. Performed By: #### 2 4323-8 ####[facility] [id number] [place] [address] [place] Glucose [Mass/Vol] 121 mg/dL High 74-99 [facility] [facility] Comment on above: Order Comment: Kassie mitchell Type: BLOOD SPECIMENOrdering Facility: [facility] Address: [address] [place] [address] Result Comment: The Indian Diabetes Association (ADA) [...] Indian Diabetes Association. Diabetes Care. 2016.39(Suppl 1). Performed By: #### 2 4323-8 ####[facility] LABORATORYCLIA [id number] [place] [address] [place] Potassium [Moles/Vol] 4.3 mmol/L Normal 3.7-5.1 [facility] Comment on above: Order Comment: Kassie mitchell Type: BLOOD SPECIMENOrdering Facility: [facility] Address: [address] [id number] Performed By: #### 2 4323-8 ####[facility] LABORATORYCLIA [id number] [place] [address] [place] Protein [Mass/Vol] 6.5 g/dL Normal 6.3-8.0 [facility] Comment on above: Order Comment: Speci men Type: BLOOD SPECIMENOrdering Facility: [facility] Address: [address] [place] [address] Performed By: #### 2 4323-8 ####[facility]ORATORYCLIA [id number] [address] Sodium [Moles/Vol] 137 mmol/L Normal 136-144 [facility] Comment on above: Order Comment: Speci men Type: BLOOD SPECIMENOrdering Facility: [facility] Address: [address] [place] [address] Performed By: #### 2 4323-8 ####[facility] LABORATORYCLIA [id number] [address] Urea nitrogen [Mass/Vol] 24 mg/dL Normal 9-24 [facility] Comment on above: Order Comment: Speci men Type: BLOOD SPECIMENOrdering Facility: [facility] Address: [address] [place], [place] [address] [address] Performed By: #### 2 4323-8 ####[facility] LABORATORYCLIA [id number] [address] OF [facility] SOCIAL WORKon 07-05-2024 SOCIAL WORK HNO ID: [id number] Author: LEIA GODWIN LSW Service: Social Work Author Type: Senior Pastor Type: Social Work Filed: 07/05/2024 16:27 Note Text: Summary: Appointment SOCIAL WORK PROGRESS NOTE Name: Nick San SW had scheduled transport for patient's ortho appt on 07/06 at 10:45. Patient just returned today from [facility]. Asked him if he still wants to keep appt. Patient agreed to do so. Said he hates to cancel it. [facility] scheduled to flower buncher or picker at 9:30 on 07/06. Signature: ALPA Black Date: July 05, 2024 Time: 4:25 PM Normal [facility] CASE MGT INIT LEVARon 2023 CASE MGT INIT LEVAR HNO ID: [id number] Author: MARY KATE LAZO RN Service: ? Author Type: Registered Nurse Type: Care Mgt Initial Assessment Filed: 07/04/2024 11:48 Note Text: CARE MANAGEMENT: ASSESSMENT AND DISCHARGE PLAN SERVICE DATE: July 04, 2024 SERVICE TIME: 11:01 AM PCP: Aga Benitez MD Primary Contact: Extended Emergency Contact Information Primary Emergency Contact: Becka Chao Mobile Relation: Daughter Preferred language: [place] Shop Welder needed? No Secondary Emergency Contact: MarvelDank OSVALDO Mobile Relation: Relative Preferred language: [place] Shop Welder needed? No Admission Status: Inpatient Insurance Provider: [employer] A[employer] MEDICARE HMO Discharge Planning requested by: Per Department Practice Potential Transition Plans Assisted Facility/Intermediate Care Facility Advance Directives Current Advance Directive: Health Care Power of Superior Court Judge In Chart: Yes Up To Date and Valid: Yes Current Living Arrangements and Support Lives with: Spouse/significant other Type of Residence: Private Residence (Apartment or Condo) Does the patient have to climb stairs at home?: No Support: Family members How do you manage to accomplish the following: Needs Assistance: Ambulation;Bathe/Shower;Kvng ss;Meals/Meal Prep;Going to the bathroom;Medication Management Dependent: Transportation to appointments/community Current Services/Equipment Current Post-Acute Service(s): DME Current DME Type: Walker, Elevated toilet seat, Shower seat Discharge Planning Patient Goal(s): General wellness, Better mobility, Increase strength [place] of Choice Explained: [place] of Choice Given: Yes Level of Care Discussed: Assisted Facility (Wants to return to [facility]) Are you interested in bedside delivery of your medications? No Discharge Planning Participant(s): Patient;Family Patient/Family Comments: Caregiver Assessment: Caregiver is ready, willing and able to meet the patient's needs as recommended by the inter-professional team: Yes Name of Caregiver: [facility] Transport at Discharge: Transportation Arrangements: Ambulance Transportation Agency and Phone #:: [facility] [phone] Needs Prior to Discharge: Needs Prior to Discharge: Other: See Comment;OT/PT Evaluation;Precertification ;Discharge Transportation (medical clearance) Post-Acute Discharge Plan: EMR reviewed. Patient admitted with YUMIKO. PT/OT evals pending, RNCM spoke to patient to complete assessment. Patient admitted from [facility] and plans to return upon DC. Will NEED precert. Will need medical transport. CM assigned will continue to follow for DC planning needs. 1148- PT/OT [facility]. CM will follow. SIGNATURE: Mary Kate Lazo RN PATIENT NAME: Nick San DATE: July 04, 2024 TIME: 11:01 AM CONTACT #: [phone] Normal [facility] CBC panel Auto (Bld)on 07-04 Erythrocyte distribution width (RBC) [Ratio] 12.4 % Normal 11.5-15.0 [facility] Comment on above: Order Comment: Kassie mitchell Type: BLOOD SPECIMENOrdering Facility: [facility] Address: [address] [place] [address] Performed By: #### 5 8410-2 ####[facility] LABORATORYCLIA [id number] [place] [address] [place] Hematocrit (Bld) [Volume fraction] 29.0 % Low 39.0-51.0 [facility] Comment on above: Order Comment: Kassie mitchell Type: BLOOD SPECIMENOrdering Facility: [facility] Address: [address] [place] [address] Performed By: #### 5 8410-2 ####[facility] LABORATORYCLIA [id number] [place] [address] Hemoglobin (Bld) [Mass/Vol] 9.6 g/dL Low 13.0-17.0 [facility] Comment on above: Order Comment: Speci men Type: BLOOD SPECIMENOrdering Facility: [facility] Address: [address] [place] [address] Performed By: #### 5 8410-2 ####[facility] LABORATORYCLIA [id number] [address] MCH (RBC) [Entitic mass] 31.1 pg Normal 26.0-34.0 [facility] Comment on above: Order Comment: Speci men Type: BLOOD SPECIMENOrdering Facility: [facility] Address: [address] [place] [address] Performed By: #### 5 8410-2 ####[facility] LABORATORYCLIA [id number] [address] MCHC (RBC) [Mass/Vol] 33.1 g/dL Normal 30.5-36.0 [facility] Comment on above: Order Comment: Speci men Type: BLOOD SPECIMENOrdering Facility: [facility] Address: [address] [place] [address] Performed By: #### 5 8410-2 ####[facility] LABORATORYCLIA [id number] [address] MCV (RBC) [Entitic vol] 93.9 fL Normal 80.0-100.0 [facility] Comment on above: Order Comment: Speci men Type: BLOOD SPECIMENOrdering Facility: [facility] Address: [address] [place] [address] Performed By: #### 5 8410-2 ####[facility] LABORATORYCLIA [id number] [address] Nucleated RBC (Bld) [#/Vol] 10*3/uL Normal <0.01 [facility] Comment on above: Order Comment: Speci men Type: BLOOD SPECIMENOrdering Facility: [facility] Address: [address] [place] [address] Performed By: #### 5 8410-2 ####[facility] LABORATORYCLIA [id number] [address] [place] Platelet mean volume (Bld) [Entitic vol] 8.5 fL Low 9.0-12.7 [facility] Comment on above: Order Comment: Speci men Type: BLOOD SPECIMENOrdering Facility: [facility] Address: [address] [place] [address] Performed By: #### 5 8410-2 ####[facility] LABORATORYCLIA [id number] [place] [address] [place] Platelets (Bld) [#/Vol] 423 10*3/uL High 150-400 [facility] Comment on above: Order Comment: Doriani men Type: BLOOD SPECIMENOrdering Facility: [facility] Address: [address] [place] [address] Performed By: #### 5 8410-2 ####[facility] LABORATORYCLIA [id number] [place] [address] [place] RBC (Bld) [#/Vol] 3.09 10*6/uL Low 4.20-6.00 [facility] Comment on above: Order Comment: Speci men Type: BLOOD SPECIMENOrdering Facility: [facility] Address: [address] [place] [address] Performed By: #### 5 8410-2 ####[facility] LABORATORYCLIA [id number] [address] OF [place] WBC (Bld) [#/Vol] 21.05 10*3/uL High 3.70-11.00 [facility] Comment on above: Order Comment: Speci men Type: BLOOD SPECIMENOrdering Facility: [facility] Address: [address] [place] [address] Performed By: #### 5 8410-2 ####[facility] LABORATORYCLIA [id number] [address] [id number] [facility] CONSULTon 07-04-2024 CONSULT HNO ID: [id number] Author: LIZBETH FERRARA MD Service: Gastroenterology Author Type: Physician Type: Consults Filed: 07/04/2024 14:20 Note Text: GASTROENTEROLOGY CONSULT NOTE PATIENT NAME: Nick San SERVICE DATE: July 04, 2024 SERVICE TIME: 10:58 AM PRIMARY CARE PHYSICIAN: Aga Benitez MD ATTENDING PHYSICIAN: Abilio You MD REASON FOR ADMISSION: YUMIKO REASON FOR CONSULTATION: Abdominal pain, nausea and vomiting HPI: This is a 64 year old male with a past medical history significant for Parkinsonism, spinal stenosis, HTN, DM2, chronic combined systolic and diastolic CHF (EF 54% grade 1 diastolic dysfunction). The patient underwent TKR on 06/22/[address] Ge at [facility]. His post operative course was complicated by YUMIKO and urinary retention. He was discharged to [facility] with a pryor catheter. On 07/03/2024 he was noted to have hypotension with SBP in 80s. He was given 500cc bolus and labs were checked. CBC showed WBC 24.1; Hgb 11, Plt 462, Na 132, BUN 29, Creatinine 1.76 with normal LFT's. A CT A/P was obtained and showed mildly distended gallbladder with mild wall thickening and no gallstones. Acalculous cholecystitis is not excluded. He was also noted to have a positive UA and was started on Ceftriaxone and Flagyl. The patient was transferred to [facility] due to worsening leukocytosis and concern for acute cholecystitis. Patient was sleeping on arrival to the exam. He reports feeling tired as he was only able to sleep 3 hours last night. He is without complaints of abdominal pain, nausea or vomiting. Has intermittent heartburn over the years but does not take any medication for this. Appetite has been poor recently. However today he reports feeling hungry. States he has been trying to loose weight. No dysphagia or odynophagia. Previous records states the patient has lost 30# in three months. He has chronic constipation and over the past several months has been moving his bowels on a weekly basis. Denies rectal bleeding or melena. Takes Aspirin 81 mg daily and was started on Eliquis after his TKR. Uses NSAID's as needed. When asked to quantify states here and there for the hell of it. Nausea and vomiting may have been related to the pain medication he was receiving post operatively. As when this stopped his symptoms improved. ALLERGIES: ALLERGIES Allergen Reactions Acetaminophen GI Upset Hydrocodone GI Upset Tramadol GI Upset Vicodin [Hydrocodon* GI Upset PAST MEDICAL HISTORY: PAST MEDICAL HISTORY Diagnosis Date Anxiety and depression BPH (benign prostatic hyperplasia) Congestive heart failure (HCC) Diabetes (HCC) Dyslipidemia Hypertension Kidney stone Spinal stenosis TIA (transient ischemic attack) Tremor PAST SURGICAL HISTORY: PAST SURGICAL HISTORY Procedure Laterality Date TOTAL KNEE REPLACEMENT Left 06/2024 MEDICATIONS: Prior to Admission Medications: apixaban (ELIQUIS) 2.5 mg tab(s), Take 1 tablet by mouth two times a day for 21 doses., Disp: 21 tablet, Rfl: 0, 07/02/2024 spironolactone (ALDACTONE) 25 mg tablet, Take 1 tablet by mouth once daily., Disp: 90 tablet, Rfl: 3, 07/02/2024 carbidopa-levodopa (SINEMET 25-100) 25-100 mg per tablet, Take 1 tablet by mouth three times a day., Disp: 90 tablet, Rfl: 5, 07/03/2024 lisinopril-hydroCHLOROthiaz james (ZESTORETIC) 20-12.5 mg per tablet, Take 1 tablet by mouth once daily., Disp: , Rfl: , 07/02/2024 atorvastatin (LIPITOR) 20 mg tablet, Take 1 tablet by mouth daily at bedtime., Disp: 90 tablet, Rfl: 1, 07/02/2024 dapagliflozin propanediol (FARXIGA) 10 mg tablet, Take 1 tablet by mouth daily with breakfast., Disp: 90 tablet, Rfl: 3, 07/03/2024 aspirin 81 mg cap, Take 81 mg by mouth once daily., Disp: , Rfl: , 07/02/2024 iv contrast (will be provided with radiology [...] administration guidelines link., Disp: 1 Each, Rfl: 0, 07/02/2024 amLODIPine (NORVASC) 10 mg tablet, Take 10 mg by mouth once daily., Disp: , Rfl: , 07/02/2024 cloNIDine HCl (CATAPRES) 0.2 mg tablet, Take 0.2 mg by mouth two times a day., Disp: , Rfl: , 07/02/2024 citalopram (CELEXA) 40 mg tablet, Take 40 mg by mouth once daily., Disp: , Rfl: , 07/02/2024 tamsulosin (FLOMAX) 0.4 mg, Take 0.4 mg by mouth once daily., Disp: , Rfl: , 07/02/2024 Current Hospital Medications: Current Facility-Administered Medications Medication Dose Route Frequency atorvastatin 20 mg tab(s) (LIPITOR) 20 mg ORAL AT BEDTIME citalopram 40 mg tab(s) (CeleXA) 40 mg ORAL DAILY carbidopa-levodopa 25-100 mg 1 tablet (SINEMET 25- (more content not included)... Normal [facility] Comprehensive metabolic 2000 panelon 07-04-2024 Albumin [Mass/Vol] 3.3 g/dL Low 3.9-4.9 [facility] Comment on above: Order Comment: Kassie mitchell Type: BLOOD SPECIMEN [facility] Address: [address] [place] [address] Performed By: #### 2 276-4, 27031-5, 38150-3, 76356-8 #### [facility] CLIA [id number] [address] [place] ALP [Catalytic activity/Vol] 85 U/L Normal 38-113 [facility] Comment on above: Order Comment: Kassie mitchell Type: BLOOD SPECIMEN [facility] Address: [address] [place] [address] Performed By: #### 2 276-4, 85521-2, 07978-6, 29388-5 #### [facility] CLIA [id number] [address] [place] [address] [place] ALT [Catalytic activity/Vol] U/L Low 10-54 [facility] Comment on above: Order Comment: Kassie mitchell Type: BLOOD SPECIMEN [facility] Address: [address] [place] [address] Performed By: #### 2 276-4, 26633-7, 87632-0, 99886-1 #### [facility] CLIA [id number] [address] [place] [address] [place] Anion gap [Moles/Vol] 12 mmol/L Normal 8-15 [facility] Comment on above: Order Comment: Speci men Type: BLOOD SPECIMEN [facility] Address: [address] [place] [address] Performed By: #### 2 276-4, 12928-3, 67183-8, 26356-4 #### [facility] CLIA [id number] [address] [place] [address] [place] AST [Catalytic activity/Vol] 12 U/L Low 14-40 [facility] Comment on above: Order Comment: Speci men Type: BLOOD SPECIMEN [facility] Address: [address] [place] [address] Performed By: #### 2 276-4, 37614-4, 92710-7, 24432-2 #### [facility] CLIA [id number] [address] [place] [address] [place] Bilirubin [Mass/Vol] 0.6 mg/dL Normal 0.2-1.3 [facility] Comment on above: Order Comment: Speci men Type: BLOOD SPECIMEN [facility] Address: [address] [place] [address] Performed By: #### 2 276-4, 71138-6, 35685-8, 69188-1 #### [facility] CLIA [id number] [address] [place] [address] [place] Calcium [Mass/Vol] 8.7 mg/dL Normal 8.5-10.2 [facility] Comment on above: Order Comment: Speci men Type: BLOOD SPECIMEN [facility] Address: [address] [place] [address] Performed By: #### 2 276-4, 22334-8, 21149-7, 63755-5 #### [facility] CLIA [id number] [address] [place] [address] [place] Chloride [Moles/Vol] 100 mmol/L Normal 98-107 [facility] Comment on above: Order Comment: Speci men Type: BLOOD SPECIMEN [facility] Address: [address] [place] [address] Performed By: #### 2 276-4, 37420-0, 58043-4, 24785-7 #### [facility] CLIA [id number] [address] [place] [address] [place] CO2 [Moles/Vol] 22 mmol/L Normal 22-30 [facility] Comment on above: Order Comment: Speci men Type: BLOOD SPECIMEN [facility] Address: [address] [place] [address] Performed By: #### 2 276-4, 04911-6, 56474-6, 92681-2 #### [facility] CLIA [id number] [address] [place] [address] [place] Creatinine [Mass/Vol] 1.30 mg/dL High 0.73-1.22 [facility] Comment on above: Order Comment: Speci men Type: BLOOD SPECIMEN [facility] Address: [address] [place] [address] Performed By: #### 2 276-4, 71471-2, 46427-6, 45022-0 #### [facility] CLIA [id number] [address] [place] [address] [place] Creatinine and Glomerular filtration rate.predicted panel (S/P/Bld) 61 mL/min/1.73m??? Normal >=60 [facility] Comment on above: Order Comment: Speci men Type: BLOOD SPECIMEN [facility] Address: [address] [place] [address] Result Comment: Edie mated Glomerular Filtration Rate (eGFR) is calculated using the 2020 CKD-EPI creatinine equation. This equation utilizes serum creatinine, sex, and age as parameters. The creatinine assay has traceable calibration to isotope dilution-mass spectrometry. Refer to KDIGO guidelines for clinical interpretation. In patients with unstable renal function, e.g. those with acute kidney injury, the eGFR may not accurately reflect actual GFR. Performed By: #### 2 276-4, 82181-7, 64511-7, 01597-8 #### [facility] CLIA [id number] [address] [place] [address] [place] Glucose [Mass/Vol] 108 mg/dL High 74-99 [facility] Comment on above: Order Comment: Kassie mitchell Type: BLOOD SPECIMEN [facility]: [facility] Address: [address] [place] [address] Result Comment: The Indian Diabetes Association (ADA) [...] Indian Diabetes Association. Diabetes Care. 2016.39(Suppl 1). Performed By: #### 2 276-4, 11496-7, 34043-4, 80878-3 #### [facility] CLIA [id number] [address] [place] [address] [place] Potassium [Moles/Vol] 4.1 mmol/L Normal 3.7-5.1 [facility] Comment on above: Order Comment: Kassie mitchell Type: BLOOD SPECIMEN [facility] Address: [address] [place] [address] Performed By: #### 2 276-4, 34892-5, 33231-3, 79216-2 #### [facility] CLIA [id number] [address] [place] [address] [place] Protein [Mass/Vol] 6.2 g/dL Low 6.3-8.0 [facility] Comment on above: Order Comment: Kassie mitchell Type: BLOOD SPECIMEN [facility] Address: [address] [place] [address] Performed By: #### 2 276-4, 89530-9, 77196-7, 02073-1 #### [facility] CLIA [id number] [address] [place] [address] [place] Sodium [Moles/Vol] 134 mmol/L Low 136-144 [facility] Comment on above: Order Comment: Speci men Type: BLOOD SPECIMEN [facility] Address: [address] [place] [address] Performed By: #### 2 276-4, 41452-2, 26289-4, 58264-5 #### [facility] CLIA [id number] [address] [place] [address] [place] Urea nitrogen [Mass/Vol] 24 mg/dL Normal 9-24 [facility] Comment on above: Order Comment: Speci men Type: BLOOD SPECIMEN [facility] Facility: [facility] Address: [address] [place] [address] Performed By: #### 2 276-4, 83375-7, 32916-3, 61547-2 #### [facility] CLIA [id number] [address] STATES OF [facility] Ferritin SerPl-mCncon 2023 Ferritin [Mass/Vol] 508.0 ng/mL Normal 30.3-565.7 [facility] Comment on above: Order Comment: Speci men Type: BLOOD SPECIMENOrdering Facility: [facility] Address: [address] [place] [address] Performed By: #### 2 276-4, 02466-6, 72106-4, ####[facility]ORATORYCLIA [id number] [place] [address] [place] Folate SerPl-mCncon 07-04-20 24 Folate [Mass/Vol] 10.4 ng/mL Normal >4.7 [facility] Comment on above: Order Comment: Speci men Type: BLOOD SPECIMEN [facility]ing Facility: [facility] Address: [address] [place] [address] Performed By: #### 2 132-9, 2284-8 #### [facility] CLIA [id number] [address] [place] [address] [place] Iron and Iron binding capaci ty panelon 07-04-2024 Iron [Mass/Vol] 20 ug/dL Low 41-186 [facility] Comment on above: Order Comment: Speci men Type: BLOOD SPECIMEN [facility]ing Facility: [facility] Address: [address] [place] [address] Performed By: #### 2 276-4, 84295-4, 88717-9, 37080-2 #### [facility] CLIA [id number] [address] Iron binding capacity [Mass/Vol] 209 ug/dL Low 232-386 [facility] Comment on above: Order Comment: Speci men Type: BLOOD SPECIMEN [facility]ing Facility: [facility] Address: [address] [place] [address] Performed By: #### 2 276-4, 00594-0, 37549-3, 38474-3 #### [facility] CLIA [id number] [address] Iron/TIBC [Molar ratio] 9.6 % Low 15.0-57.0 [facility] Comment on above: Order Comment: Speci men Type: BLOOD SPECIMEN Ordering Facility: [facility] Address: [address] [place] [address] Performed By: #### 2 276-4, 62459-4, 56049-7, 75908-4 #### [facility] CLIA [id number] [address] Magnesium SerPl-mCncon 07-04 Magnesium [Mass/Vol] 2.4 mg/dL High 1.7-2.3 [facility] Comment on above: Order Comment: Speci men Type: BLOOD SPECIMEN Ordering Facility: [facility] Address: [address] [place] [address] Performed By: #### 2 276-4, 78094-3, 49233-4, 38822-5 #### [facility] CLIA [id number] [address] OF [facility] THERAPY NTon 07-04-2024 THERAPY NT HNO ID: [id number] Author: CALLY ROLLE OTR/L Service: Occupational Therapy Author Type: Occupational Therapist Type: Therapy (PT/OT/Speech/Resp) Filed: 07/04/2024 11:10 Note Text: Summary: OT eval Occupational Therapy Evaluation Summary SERVICE DATE: 07/04/2024 SERVICE TIME: 929 to 1011 ROOM: [id number] OT 6 Clicks Score: 16 DISCHARGE RECOMMENDATIONS Subacute/SNF Recommended Discharge Disposition Due to: Functional deficits requiring ongoing therapy service prior to discharge home., ADL impairment, Anticipated community discharge, Functional status decline Anticipated Discharge Needs: Physical Assist at Home, Supervision at Home Physical Assist at Home for: Transfers, Finances, Ambulation, Cleaning, Laundry, Meals, Medication Management, Stairs, Safety, Self Care, Shopping, Transportation Supervision at Home due to: Decreased safety awareness, Impaired cognition ASSESSMENT Response to Therapy Interventions: Good Participation in Activities, On-Track to Achieve Discharge Goals PRECAUTIONS Bed/Chair Alarm, Diabetic, Fall Risk, Lines/Tubes/Drains, Total Knee Replacement CURRENT HOSPITAL COURSE Admitted with episode of hypotension with labs showing new leukocytosis YUMIKO and imaging suggestive of cholecystitis Relevant Past Medical History: HTN, HFrEF, T2DM, Parkinson's disease, Possible stroke per daughter, L TKA 06/22/24; HOME LIVING Patient Lives With: Spouse Assistance Available: 24-Hour Entry To Home: No Stairs Number Of [...] 2024 Independent with medication with diffculty SUBJECTIVE Patient cleared by nursing supine in bed agreeable to OT COGNITION Orientation Deficits: Other: See Comment (slightly forgetful) Responsiveness: Alert, Awake Follows Commands: Cueing Needed Cueing to Follow Commands: Minimum THERAPY DIAGNOSIS Reduced mobility-other, Decreased activities of daily living (ADL), Muscle Weakness (generalized), General symptoms and signs-other TREATMENT INTERVENTIONS Evaluation, Self Half-Way Management (90826) Timed Code Treatment (minutes): 20 Skilled Treatment Time (minutes): 35 TRAINING AND EDUCATION PROVIDED Assistive Device Use, Activity Adaptation/Compensatory Strategies, Benefits of In-Hospital Mobility, Adaptive Equipment/DME, Discharge Planning, Functional Mobility Involving ADLs, Grooming Tasks, Lower Extremity Dressing, Role of Occupational Therapy, Safety/Judgment, Transfer - Sit to Stand THERAPEUTIC SKILLS USED Activity Dosing, Assessment of Tolerance Including Vitals Response to Activity, Cues for Sequencing/Proper Technique for Activity, Cuing Tactile, Cuing Verbal, Physical Assist FUNCTIONAL STATUS Activities of Daily Living Assist Level Additional Information Feeding Set Up Grooming Minimal Assistance, Additional Information brushed hair and hair seated in bedside chair with set up increased assistance anticipated at sink Bathing Upper Body Minimal Assistance, Additional Information per clinical judgement seated Bathing Lower Body Moderate Assistance, Additional Information per clinical judgement seated Dressing Upper Body Contact Guard Assistance Dressing Lower Body Moderate Assistance, Additional Information unable to reach past mid calf, educated on adaptive equipment Toileting Minimal Assistance, Additional Information per clinical judgement Mobility Assist Level Additional Information Bed Mobility Sit to Stand Minimal Assistance, Additional Information bedside chair to walker, unsteady in standing Stand to Sit Minimal Assistance, Additional Information cues to reach back to control descent Bed to Chair Toilet/Commode Shower Functional Mobility Minimal Assistance, Additional Information Functional Mobility Device: Wheeled Walker 6 steps forwar dand backward with patient unsteady in standing GOALS Patient will demonstrate progress to optimize self-care activities, cognitive and/or coping to maximize function upon discharge. Progress Toward Goals: Progressing as expecte (more content not included)... Normal [facility] THERAPY NT HNO ID: [id number] Author: XIOMARA ROSS PT Service: Physical Therapy Author Type: Physical Therapist Type: Therapy (PT/OT/Speech/Resp) Filed: 07/04/2024 11:13 Note Text: Summary: PT evaluation Physical Therapy Evaluation Summary SERVICE DATE: 07/04/2024 SERVICE TIME: 1014 to 1050 ROOM: [id number] PT 6 Clicks Score: 16 Total Joint Replacement Discharge Readiness: Not Applicable DISCHARGE RECOMMENDATIONS Subacute/SNF Recommended Discharge Disposition Comments: Patient with exacerbation of weakness, pain, limited activity tolerance, impaired safety awareness and limited ROM, causing him to require assistance and use of a walker for mobility and placing him at a risk of falls. Daily skilled PT treatment is indicated to address his impairments and promote return to prior level of independence and mobility and decrease his risk of falls. Recommended Discharge Disposition Due to: Functional deficits requiring ongoing therapy service prior to discharge home., Anticipated community discharge, Balance deficits, Functional status decline, Requires multiple therapy disciplines, Weakness less than 3/5 in lower extremity Recommended Discharge Equipment: No equipment needs anticipated ASSESSMENT Response to Therapy Interventions: Good Participation in Activities, Improved Tolerance for Activity, Pain, Notable Progression with Functional Activities/Skills, Needs Frequent Redirection or Reinstruction Patient requires CGA/Margot for mobility with use of a wheeled walker and frequent cues for safe mobility techniques throughout PT session. PRECAUTIONS Bed/Chair Alarm, Fall Risk, Lines/Tubes/Drains, Total Knee Replacement CURRENT HOSPITAL COURSE YUMIKO and UTI. recent L TKA 06/22/2024 Relevant Past Medical History: HTN, HFrEF, T2DM, Parkinson's disease, Possible stroke per daughter, L TKA 06/22/24; HOME LIVING Patient Lives With: Spouse Assistance Available: 24-Hour Entry To Home: No Stairs Number Of [...] 2024 Independent with medication with diffculty SUBJECTIVE Patient resting in chair upon approach. Just finished OT session. Alert and agreeable to PT eval. THERAPY DIAGNOSIS Reduced mobility-other, Muscle Weakness (generalized) TREATMENT INTERVENTIONS Evaluation, Therapeutic Exercise (51493), Therapeutic Activity (84930), Gait Training (77758) Timed Code Treatment (minutes): 21 Skilled Treatment Time (minutes): 36 $ Evaluation-Low (31853) Billed Units: 1 unit Therapeutic Exercise (09030) Treatment Minutes: 9 $ Therapeutic Exercise (67268) Billed Units: 1 unit Exercise Ankle Pumps (number of reps): 10 bilat Quad Sets (number of reps): 10 bilat Heel Slides (number of reps): 10 bilat with AAROM to LLE SAQ (number of reps): 10 bilat with AAROM to LLE and cues for end range knee extension SLR (number of reps): 10 bilat with AAROM to LLE and cues for quad activation throughout Exercise: all with graded AAROM to LLE Therapeutic Activity (95716) Treatment Minutes: 5 $ Therapeutic Activity (55996) Billed Units: 0 units Gait Training (24636) Treatment Minutes: 7 $ Gait Training (18428) Billed Units: 0 units TRAINING AND EDUCATION PROVIDED Advanced Balance Activities, Assistive Device Use, Bed Mobility, Benefits of In-Hospital Mobility, Discharge Planning, Expected Functional Level, Falls Prevention, Gait Pattern, Reduction of Deviations, Patient Exercise/Therapy Program Support Needs, Positioning, Transfers, Standing Balance, Role of Physical Therapy THERAPEUTIC SKILLS USED Activity Dosing, Assessment of Tolerance Including Vitals Response to Activity, Cues for Sequencing/Proper Technique for Activity, Cuing Tactile, Cuing Verbal, Management of Critical Lines, Tubes and/or Drains, Family Training, Movement Facilitation, Physical Assist, Postural Alignment Correction FUNCTIONAL STATUS Bed Mobility Supine To Sit: Additional Information OOB in chair at start of session Sit to Supine: Stand By Assistance, Additional Information cues for (more content not included)... Normal [facility] Vit B12 SerPl-ncon 024 Cobalamin (Vitamin B12) [Mass/Vol] 494 pg/mL Normal 232-1245 [facility] Comment on above: Order Comment: Kassie mitchell Type: BLOOD SPECIMEN Ordering Facility: [facility] Address: [address] [place] [address] Performed By: #### 2 132-9, 2284-8 #### [facility] CLIA [id number] [address] [place] [address] [place] CBC panel Auto (Bld)on 07-03 Erythrocyte distribution width (RBC) [Ratio] 12.6 % Normal 11.5-15.0 [facility] Comment on above: Order Comment: Kassie mitchell Type: BLOOD SPECIMENOrdering Facility: [facility] Address: [address] [place] [address] Performed By: #### 5 8410-2 ####[facility] [id number] [place] [address] [place] Hematocrit (Bld) [Volume fraction] 29.7 % Low 39.0-51.0 [facility] Comment on above: Order Comment: Kassie mitchell Type: BLOOD SPECIMENOrdering Facility: [facility] Address: [address] [place] [address] Performed By: #### 5 8410-2 ####[facility] [id number] [place] [address] [place] Hemoglobin (Bld) [Mass/Vol] 9.8 g/dL Low 13.0-17.0 [facility] Comment on above: Order Comment: Speci men Type: BLOOD SPECIMENOrdering Facility: [facility] Address: [address] [place] [address] Performed By: #### 5 8410-2 ####[facility] [id number] [place] [address] [place] MCH (RBC) [Entitic mass] 30.7 pg Normal 26.0-34.0 [facility] Comment on above: Order Comment: Speci men Type: BLOOD SPECIMENOrdering Facility: [facility] Address: [address] [place] [address] Performed By: #### 5 8410-2 ####[facility] [id number] [address] [place] MCHC (RBC) [Mass/Vol] 33.0 g/dL Normal 30.5-36.0 [facility] Comment on above: Order Comment: Speci men Type: BLOOD SPECIMENOrdering Facility: [facility] Address: [address] [place] [address] Performed By: #### 5 8410-2 ####[facility] [id number] [address] [place] MCV (RBC) [Entitic vol] 93.1 fL Normal 80.0-100.0 [facility] Comment on above: Order Comment: Speci men Type: BLOOD SPECIMENOrdering Facility: [facility] Address: [address] [place] [address] Performed By: #### 5 8410-2 ####[facility] [id number] [address] Nucleated RBC (Bld) [#/Vol] 10*3/uL Normal <0.01 [facility] Comment on above: Order Comment: Speci men Type: BLOOD SPECIMENOrdering Facility: [facility] Address: [address] [place] [address] Performed By: #### 5 8410-2 ####[facility] [id number] [place] [address] [place] Platelet mean volume (Bld) [Entitic vol] 8.7 fL Low 9.0-12.7 [facility] Comment on above: Order Comment: Speci men Type: BLOOD SPECIMENOrdering Facility: [facility] Address: [address] [place] [address] Performed By: #### 5 8410-2 ####[facility] [id number] [place] [address] [place] Platelets (Bld) [#/Vol] 438 10*3/uL High 150-400 [facility] Comment on above: Order Comment: Speci men Type: BLOOD SPECIMENOrdering Facility: [facility] Address: [address] [place] [address] Performed By: #### 5 8410-2 ####[facility] [id number] [place] [address] [place] RBC (Bld) [#/Vol] 3.19 10*6/uL Low 4.20-6.00 [facility] Comment on above: Order Comment: Speci men Type: BLOOD SPECIMENOrdering Facility: [facility] Address: [address] [place] [address] Performed By: #### 5 8410-2 ####[facility] [id number] [place] [address] [place] WBC (Bld) [#/Vol] 24.55 10*3/uL High 3.70-11.00 [facility] Comment on above: Order Comment: Speci men Type: BLOOD SPECIMENOrdering Facility: [facility] Address: [address] [place] [address] Performed By: #### 5 8410-2 ####[facility] [id number] [place] [id number] [facility] [place] CNDSon 07-03-2024 CNDS HNO ID: [id number] Author: ERASMO GUDINO MD Service: Hospital Medicine Author Type: Physician Car Shagger Type: Discharge Summary Filed: 08/05/2024 18:39 Note Text: Attestation signed by Erasmo Gudino MD at 08/05/2024 6:39 PM Attending Note I have personally reviewed the MARIA D note and have discussed the management of this patient with the MARIA D. Active Hospital Problems Diagnosis Aftercare Status post total left knee replacement Parkinson's disease with dyskinesia (HCC) Chronic combined systolic and diastolic heart failure (HCC) Type 2 diabetes mellitus without complication, without long-term current use of insulin (HCC) Mild depression Essential (primary) hypertension Other additions or changes: As edited Signature: Erasmo Gudino MD, [facility] Date: July 03, 2024 Time: 8:39 PM DISCHARGE SUMMARY PATIENT NAME: Nick San ADMISSION DATE: 06/29/2024 DISCHARGE DATE: 07/03/2024 ATTENDING PHYSICIAN: Erasmo Gudino MD Code Status: Full Code Highest Readmission Risk Score: 19 The 30 day readmissions risk score is derived from an internally validated risk model which evaluates patient level characteristics, utilization history, medication orders and lab results up until the day of discharge. Patients with a score of 40 or above are considered highest risk for readmission. Specific patient level drivers will be listed at the bottom of the summary. CONSULTING TEAMS DURING HOSPITALIZATION: None Treatment Team: Attending Provider: Erasmo Gudino MD REASON FOR HOSPITALIZATION: Aftercare following left knee replacement DIAGNOSIS: Principal Problem: Aftercare (POA: Yes) Active Problems: Essential (primary) hypertension (POA: Yes) Mild depression (POA: Yes) Type 2 diabetes mellitus without complication, without long-term current use of insulin (HCC) (POA: Yes) Chronic combined systolic and diastolic heart failure (HCC) (POA: Yes) Parkinson's disease with dyskinesia (HCC) (POA: Yes) Status post total left knee replacement (POA: Yes) YUMIKO (acute kidney injury) (HCC) (POA: Yes) Acute urinary retention (POA: Yes) Malnutrition of mild degree (HCC) (POA: Yes) Resolved Problems: * No resolved hospital problems. * OPERATIONS DURING HOSPITALIZATION: None PROCEDURES DURING HOSPITALIZATION: No procedures performed HOSPITAL COURSE: Patient was admitted to [facility] on 06/22/2024 for elective left total [...] without much success. Patient was discharged with Pryor in place due to acute urinary retention noted on admission to [facility]. Patient was evaluated by therapy, thus patient was transferred to [facility] for further services. At [facility] patient participated in aftercare. On the evening on 07/02, patient had hypotensive episode without acute symptoms and routine labs were checked that showed worsening of YUMIKO and significant WBC elevation to >20K. Patient was complaining of feeling more fatigued that day and continually having the sweats. UA showed a UTI. Given the significant YUMIKO and UTI, a CT AP was performed that showed a dilated gallbladder and recommended RUQ. Given patient significant YUMIKO, WBC elevation, and CT AP findings, it was deemed appropriate to transfer patient to [facility] for higher level of care including RUQ and possible nephrology consultation. Patient was started on rocephin and flagyl and transferred to [facility] in stable condition. For additional information see plan of care of virtual encounter with patient. Malnutrition Diagnosis supported by Registered Dietitian:Mild Protein-Calorie Malnutrition Based on: Insufficient Energy Intake Assessment: I have reviewed the result of the malnutrition assessment and plan and agree Plan: Diet, Supplements Transitions of Care Critical Issues: No follow up required. Going to acute care hospital LABS AND PROCEDURES PENDING AT DISCHARGE: No pending results. PATIENT CONDITION AT DISCHARGE: Stable DISCHARGE DISPOSITION: Acute Care Hospital Physical Exam unable to be performed as patient was not assessed by this provider in person. I was not physically present at [facility] for this encounter. Discharge summary and plan were completed virtually INFORMATION PROVIDED TO PATIENT: Informed patient of findings and patient agreeable to tra (more content not included)... Normal [facility] CRP SerPl-mCncon 07-03-2024 CRP [Mass/Vol] 20.6 mg/dL High <0.9 [facility] Comment on above: Order Comment: Kassie mitchell Type: BLOOD SPECIMEN Ordering Facility: [facility] Address: [address] [place] [address] Performed By: #### 2 4323-8, 58616-7 #### [facility] CLIA [id number] [address] [place] [address] [facility] [place] Comprehensive metabolic 2000 panelon 07-03-2024 Albumin [Mass/Vol] 3.6 g/dL Low 3.9-4.9 [facility] Comment on above: Order Comment: Kassie mitchell Type: BLOOD SPECIMENOrdering Facility: [facility] Address: [address] [place] [address] Performed By: #### 2 4323-8, 3040-3 ####[facility] [id number] [address] OF [facility] ALP [Catalytic activity/Vol] 82 U/L Normal 38-113 [facility] Comment on above: Order Comment: Kassie mitchell Type: BLOOD SPECIMENOrdering Facility: [facility] Address: [address] [place] [id number] Performed By: #### 2 4323-8, 3040-3 ####[facility] [id number] [place] [id number] [facility] [place] ALT [Catalytic activity/Vol] U/L Low 10-54 [facility] Comment on above: Order Comment: Kassie mitchell Type: BLOOD SPECIMENOrdering Facility: [facility] Address: [address] [place] [address] Performed By: #### 2 4323-8, 3040-3 ####[facility] [id number] [place] [address] [place] Anion gap [Moles/Vol] 9 mmol/L Normal 8-15 [facility] Comment on above: Order Comment: Speci men Type: BLOOD SPECIMENOrdering Facility: [facility] Address: [address] [place] [address] Performed By: #### 2 4323-8, 0-3 ####[facility] [id number] [place] [address] [place] AST [Catalytic activity/Vol] 10 U/L Low 14-40 [facility] Comment on above: Order Comment: Speci men Type: BLOOD SPECIMENOrdering Facility: [facility] Address: [address] [place] [address] Performed By: #### 2 4323-8, 0-3 ####[facility] [id number] [place] [address] [place] Bilirubin [Mass/Vol] 0.7 mg/dL Normal 0.2-1.3 [facility] Comment on above: Order Comment: Speci men Type: BLOOD SPECIMENOrdering Facility: [facility] Address: [address] [place] [address] [place] [address] Performed By: #### 2 4323-8, 0-3 ####[facility] [id number] [place] [address] [place] Calcium [Mass/Vol] 9.0 mg/dL Normal 8.5-10.2 [facility] Comment on above: Order Comment: Speci men Type: BLOOD SPECIMENOrdering Facility: [facility] Address: [address] [place] [id number] Performed By: #### 2 4323-8, 3040-3 ####[facility] [id number] [place] [id number] [place] Chloride [Moles/Vol] 99 mmol/L Normal 98-107 [facility] Comment on above: Order Comment: Speci men Type: BLOOD SPECIMENOrdering Facility: [facility] Address: [address] [place] [address] Performed By: #### 2 4323-8, 0-3 ####[facility] [id number] [place] [address] [place] CO2 [Moles/Vol] 26 mmol/L Normal 22-30 [facility] Comment on above: Order Comment: Kassie mitchell Type: BLOOD SPECIMENOrdering Facility: [facility] Address: [address] [place] [address] Performed By: #### 2 4323-8, 0-3 ####[facility] [id number] [place] [address] [place] Creatinine [Mass/Vol] 1.63 mg/dL High 0.73-1.22 [facility] Comment on above: Order Comment: Kassie mitchell Type: BLOOD SPECIMENOrdering Facility: [facility] Address: [address] [place] [address] Performed By: #### 2 4323-8, 3039-3 ####[facility] [id number] [address] [place] [facility] Creatinine and Glomerular filtration rate.predicted panel (S/P/Bld) 46 mL/min/1.73m??? Low >=60 [facility] Comment on above: Order Comment: Kassie mitchell Type: BLOOD SPECIMENOrdering Facility: [facility] Address: [address] [place] [address] Result Comment: Edie mated Glomerular Filtration Rate (eGFR) is calculated using the 2020 CKD-EPI creatinine equation. This equation utilizes serum creatinine, sex, and age as parameters. The creatinine assay has traceable calibration to isotope dilution-mass spectrometry. Refer to KDIGO guidelines for clinical interpretation. In patients with unstable renal function, e.g. those with acute kidney injury, the eGFR may not accurately reflect actual GFR. Performed By: #### 2 4323-8, 0-3 ####[facility] [id number] [place] [address] [place] Glucose [Mass/Vol] 131 mg/dL High 74-99 [facility] Comment on above: Order Comment: Kassie mitchell Type: BLOOD SPECIMENOrdering Facility: [facility] Address: [address] [place] [address] Result Comment: The [employer] Diabetes Association (ADA) [...] Indian Diabetes Association. Diabetes Care. 2016.39(Suppl 1). Performed By: #### 2 4323-8, 0-3 ####[facility] [id number] [place] [address] [place] Potassium [Moles/Vol] 4.0 mmol/L Normal 3.7-5.1 [facility] Comment on above: Order Comment: Speci men Type: BLOOD SPECIMENOrdering Facility: [facility] Address: [address] [place] [address] Performed By: #### 2 4323-8, 3039-3 ####[facility] [id number] [place] [address] [place] Protein [Mass/Vol] 6.2 g/dL Low 6.3-8.0 [facility] Comment on above: Order Comment: Speci men Type: BLOOD SPECIMENOrdering Facility: [facility] Address: [address] [place] [id number] Performed By: #### 2 4323-8, 0-3 ####[facility] [id number] [place] [address] [place] Sodium [Moles/Vol] 134 mmol/L Low 136-144 [facility] Comment on above: Order Comment: Speci men Type: BLOOD SPECIMENOrdering Facility: [facility] Address: [address] [place] [id number] Performed By: #### 2 4323-8, 0-3 ####[facility] [id number] [place] [address] [place] Urea nitrogen [Mass/Vol] 28 mg/dL High 06-28 [facility] Comment on above: Order Comment: Speci men Type: BLOOD SPECIMENOrdering Facility: [facility] Address: [address] [place] [address] Performed By: #### 2 4323-8, 3040-3 ####[facility]CL[facility] [id number] [place] [id number] [place] HISTORY PHYSICALon HISTORY PHYSICAL HNO ID: [id number] Author: ABILOI YOU DO Service: Hospital Medicine Author Type: Physician Type: H&P Filed: 07/03/2024 13:05 Note Text: DEPARTMENT OF HOSPITAL MEDICINE HISTORY AND PHYSICAL EXAM SERVICE DATE: 07/03/2024 SERVICE TIME: 12:37 PM Primary Care Physician: Aga Benitez MD NIGHT AND WEEKEND COVERAGE: [facility] C[facility]: Days: [phone], please page attending physician. Nights: [phone], please page [place] [facility] Night coverage pager [phone]. Subjective CHIEF COMPLAINT: Leukocytosis HPI: This is a 64 year old male hx of Parkinsonism, spinal stenosis, HTN, DM2, chronic combined systolic and diastolic CHF (EF 54% grade 1 diastolic dysfunction). In 03/2024 he was found to have HFrEF (EF45%) and seen by cardiology. This was felt to be due HTN. Amyloid workup was negative and his EF improved on GDMT. He underwent TKA on 06/22/[address] Ge at [facility]. His post op course was complicated by YUMIKO with peak telephone lineman unknown but was 1.48 at d/c. He also had urinary retention and was discharged to [facility] with a pryor catheter. The pryor catheter was able to be removed and he denies any difficulty urinating. On 07/03 am he was noted to have hypotenstion with SBP in 80s. He was given 500cc bolus and labs were checked. CBC showed WBC 24.1 hg 11 plt 462. CMP with Na 132 bun 29 telephone lineman 1.76. LFTs normal. A CT A/P was obtained and showed Mildly distended gallbladder with mild wall thickening. No gallstone identified. Acalculous cholecystitis is not excluded. UA was positive and he was started on ceftriaxone and flagyl. He was referred to [facility] for further workup. On admission the patient reports feeling ok. He has been slow to recover from his surgery. Pain is tolerable and he has been able to work with PT. He reports about a 30lb weight loss over the past 3 months. He states that since his surgery he has had very little appetite and feels nauseated with any foods. He denies any abdominal pain. He reports just one BM in the past 3 weeks and feels constipated. He denies any fever or chills No chest pain, SOB, urinary retention, dysuria, rashes bruising or swelling. No URI symptoms but reports feeling poorly overall. PAST MEDICAL HISTORY Diagnosis Date Anxiety and [...] Drug use: Never PRIOR TO ADMISSION MEDICATIONS: apixaban (ELIQUIS) 2.5 mg tab(s), Take 1 tablet by mouth two times a day for 21 doses., Disp: 21 tablet, Rfl: 0, 07/02/2024 spironolactone (ALDACTONE) 25 mg tablet, Take 1 tablet by mouth once daily., Disp: 90 tablet, Rfl: 3, 07/02/2024 carbidopa-levodopa (SINEMET 25-100) 25-100 mg per tablet, Take 1 tablet by mouth three times a day., Disp: 90 tablet, Rfl: 5, 07/03/2024 lisinopril-hydroCHLOROthiaz james (ZESTORETIC) 20-12.5 mg per tablet, Take 1 tablet by mouth once daily., Disp: , Rfl: , 07/02/2024 atorvastatin (LIPITOR) 20 mg tablet, Take 1 tablet by mouth daily at bedtime., Disp: 90 tablet, Rfl: 1, 07/02/2024 dapagliflozin propanediol (FARXIGA) 10 mg tablet, Take 1 tablet by mouth daily with breakfast., Disp: 90 tablet, Rfl: 3, 07/03/2024 aspirin 81 mg cap, Take 81 mg by mouth once daily., Disp: , Rfl: , 07/02/2024 iv contrast (will be provided with radiology [...] administration guidelines link., Disp: 1 Each, Rfl: 0, 07/02/2024 amLODIPine (NORVASC) 10 mg tablet, Take 10 mg by mouth once daily., Disp: , Rfl: , 07/02/2024 cloNIDine HCl (CATAPRES) 0.2 mg tablet, Take 0.2 mg by mouth two times a day., Disp: , Rfl: , 07/02/2024 citalopram (CELEXA) 40 mg tablet, Take 40 mg by mouth once daily., Disp: , Rfl: , 07/02/2024 tamsulosin (FLOMAX) 0.4 mg, Take 0.4 mg by mouth once daily., Disp: , Rfl: , 07/02/2024 ALLERGIES Allergen Reactions Acetaminophen GI Upset Hydrocodone GI Upset Tramadol (more content not included)... Normal [facility] Lipase SerPl-cCncon 07-03-20 24 Lipase [Catalytic activity/Vol] 63 U/L High 16-61 [facility] Comment on above: Order Comment: Speci men Type: BLOOD SPECIMENOrdering Facility: [facility] Address: [address] [place] [address] [place] [address] Performed By: #### 2 4323-8, 3040-3 ####[facility] [id number] [place] [address] [facility] NURSING PROGon 07-03-2024 NURSING PROG HNO ID: [id number] Author: KELSIE HERNANDEZ, RN Service: Nursing Author Type: Registered Nurse Type: Nursing Progress Note Filed: 07/03/2024 02:26 Note Text: Pt vitals found to be out of normal range upon assessment. Pt due for BP meds at 2100. LIP notified at 2120 via page. LIP returned call at 2131. New orders received. LIP notified of results at 2237. LIP aware of imagine results at 1259. Normal [facility] THERAPY NTon 07-03-2024 THERAPY NT HNO ID: [id number] Author: MIC RYDER, PT Service: Physical Therapy Author Type: Physical Therapist Type: Therapy (PT/OT/Speech/Resp) Filed: 07/03/2024 14:17 Note Text: Summary: PT MV PHYSICAL THERAPY MISSED VISIT SERVICE DATE: 07/03/2024 SERVICE TIME: 1417 ROOM: [place] [address] Patient not seen due to Test / Procedure. Ultrasound being performed at bedside. Will re-attempt as schedule allows and pt is medically appropriate to participate. SIGNATURE: Mic Ryder, PT PATIENT NAME: Nick San DATE: July 03, 2024 TIME: 2:17 PM [facility] THERAPY NT HNO ID: [id number] Author: ROLA STEVENS, OTR/L Service: Occupational Therapy Author Type: Occupational Therapist Type: Therapy (PT/OT/Speech/Resp) Filed: 07/04/2024 08:05 Note Text: Summary: OT Discharge Note Occupational Therapy Assisted Facility Discharge Summary ROOM: [place] [address] ([id number]) Recommended Discharge Equipment: ADL Kit, Long Handled Sponge, Grab Bars-Shower, Walker bag/basket OT 6 Clicks Score: 17 GOAL REVIEW: Patient/Caregiver Goals: Reduce ADL/IADL barriers This patient was transferred out to acute hospital on 07/03/2024 due to change in medical status; discharged from OT at this time. OT goals not met due to change in medical status with subsequent transfer out of facility. Goals: Patient will demonstrate progress with self-care, cognitive and/or coping needs identified to allow safe discharge to home with available support and/or physical assistance. Grooming with: Stand By Assistance (standing at sink) Upper Body Bathing with: Modified Independent Upper Body Dressing with: Modified Independent Lower Body Bathing with: Minimal Assistance Lower Body Dressing with: Minimal Assistance Toilet Hygiene with: Stand By Assistance Toilet Transfer with: Modified Independent Tub Transfer with: Contact Guard Assistance CURRENT FUNCTIONAL STATUS: Most recent performance Current Activities of Daily Living Assist Level Additional Information Feeding Set Up Grooming Stand By Assistance, Additional Information Bathing Upper Body Minimal Assistance Bathing Lower Body Maximal Assistance Dressing Upper Body Set Up, Additional Information Dressing Lower Body Minimal Assistance Toileting Maximal Assistance, Additional Information Instrumental Activities of Daily Living Assist Level Additional Information Meal/Beverage Prep Total Assistance Cleaning Total Assistance Laundry Total Assistance Medication Management with Strategies Functional Mobility Assist Level Additional Information Rolling Supine to Sit Moderate Assistance Sit to Supine Minimal Assistance Scooting Contact Guard Assistance Sit to Stand Contact Guard Assistance Stand to Sit Contact Guard Assistance Bed to Chair Contact Guard Assistance Stepping Wheeled Walker, Gait Belt Toilet/Commode Contact Guard Assistance Shower Functional Mobility Contact Guard Assistance Wheeled Walker Blank moore indicate activity not attempted Transitions: pt amb. throughout room and hallway; increased pain this date; standing rest breaks required Balance: Static Sitting, Static Standing Static Sitting Balance: Good Patient able to maintain balance without handhold support, limited postural sway Static Standing Balance: Good Patient able to maintain balance without handhold support, limited postural sway Activity Tolerance: Standing Activity Standing Activity: functional mobility Standing Activity Tolerance (in minutes): 4 SIGNATURE: Rola Stevens OTR/L PATIENT NAME: Nick San DATE: July 04, 2024 TIME: 8:03 AM Normal [facility] THERAPY NT HNO ID: [id number] Author: LARY BOB, PT Service: Physical Therapy Author Type: Physical Therapist Type: Therapy (PT/OT/Speech/Resp) Filed: 07/04/2024 08:56 Note Text: Physical Therapy Assisted Facility Discharge Summary ROOM: [place] [address] ([id number]) Patient transferred to higher level of care due to change in medical status. Recommended Discharge Equipment: ADL Kit PT 6 Clicks Score: 16 GOAL REVIEW: Patient/Caregiver Goals: Go Home, Walk (I just want to be able to go to [facility] again.) Goals: Patient will demonstrate progress with functional mobility to allow safe discharge to home with available support and/or physical assistance. Able to Perform HEP with: Verbal Cues Only Rolling with: Modified Independent Transfer Supine to/from Sit with: Modified Independent Transfer Sit to/from Stand with: Supervision Ambulate with: Stand By Assistance Distance: 150+ Device: Wheeled Walker ROM: L knee 0-90 with < 2/10 pain Goal: TUG < 60 seconds at FWW CURRENT FUNCTIONAL STATUS: Most recent performance Current Functional Mobility Assist Level Additional Information Rolling Minimal Assistance (vc for hand placement and tech) Supine to Sit Moderate Assistance (elevate head of bed vc for use of hands) Sit to Supine Minimal Assistance (assist with BLE) Scooting Stand By Assistance (vc for tech) Sit to Stand Contact Guard Assistance (vc for hand placement and transfer inst.) Stand to Sit Contact Guard Assistance Bed to Chair Contact Guard Assistance Bed To Chair Transfer Type: Stepping Bed To Chair Transfer Equipment: Gait Belt, Wheeled Walker Toilet/Commode Moderate Assistance (assist to remove pants and move walker to position on commode) Gait Contact Guard Assistance Gait Device: Wheeled Walker Gait Distance (feet): 70 ft Stairs (N/A) Curb Step Car Transfer Blank moore indicate activity not attempted Gait Deviations Left Lower Extremity: Foot clearance decreased, Heel strike during initial stance decreased, Knee flexion during stance increased, Lacks full knee extension during terminal swing, Step length decreased General Deviations/Observations: Antalgic gait, Margareth decreased, Difficulty changing direction/turning, Flexed trunk posture, Non-functional gait speed, Shuffling Gait, Step length decreased, Improper distancing from assistive device Balance: Static Sitting, Dynamic Sitting, Static Standing, Dynamic Standing Static Sitting Balance: Normal Patient able to maintain steady balance without handhold support Dynamic Sitting Balance: Good Patient accepts moderate challenge, able to maintain balance while picking up object off floor Static Standing Balance: Fair Patient able to maintain balance with handhold support, may require occasional minimal assistance Dynamic Standing Balance: Fair Patient accepts minimal challenge, able to maintain balance while turning head/trunk Activity Tolerance: Standing Activity Standing Activity: ambulation into halls Standing Activity Tolerance (in minutes): 10 PT JH-HLM: 7 - Walk 25 feet or more Functional Performance Test Functional Performance Test: Timed Get Up And Go Timed Get Up And Go (seconds): 128 Timed Get Up And Go Gait Device: Wheeled walker SIGNATURE: Lary Bob PT PATIENT NAME: Nick San DATE: July 04, 2024 TIME: 8:56 AM Normal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 [place] [id number] [place] [address] OF [facility] Color (U) Yellow Normal Yellow [facility] Comment on above: Order Comment: Speci men Type: URINE SPECIMENOrdering Facility: [facility] Address: [address] [place] [address] Performed By: #### 2 4356-8 ####[facility] LABCLIA [id number] [place] [address] [facility] LABORATORYCLIA [id number] [place] [address] Epithelial cells LM.HPF (Urine sed) [#/Area] Few Normal [facility] Comment on above: Order Comment: Speci men Type: URINE SPECIMENOrdering Facility: [facility] Address: [address] [place] [address] Result Comment: Few Performed By: #### 2 4356-8 ####[facility] LABCLIA [id number] [place] [address] [facility] LABORATORYCLIA [id number] [place] [address] Glucose Test strip (U) [Mass/Vol] 2+ Abnormal Negative [facility] Comment on above: Order Comment: Speci men Type: URINE SPECIMENOrdering Facility: [facility] Address: [address] [place] [address] Performed By: #### 2 4356-8 ####[facility] LABCLIA [id number] [place] [address] [facility] LABORATORYCLIA [id number] [address] [place] Hemoglobin Ql (U) Negative Normal Negative [facility] Comment on above: Order Comment: Speci men Type: URINE SPECIMENOrdering Facility: [facility] Address: [address] [place] [address] Performed By: #### 2 4356-8 ####[facility] LABCLIA [id number] [place] [address] [facility] LABORATORYCLIA [id number] [place], [place] [address] [place] [address] Ketones Ql (U) Trace Abnormal Negative [facility] Comment on above: Order Comment: Speci men Type: URINE SPECIMENOrdering Facility: [facility] Address: [address] [place] [address] Performed By: #### 2 4356-8 ####[facility]CLIA [id number] [place] [address] [facility]ORATORYCLIA [id number] [address] Leukocyte esterase Test strip Ql (U) Trace Abnormal Negative [facility] Comment on above: Order Comment: Speci men Type: URINE SPECIMENOrdering Facility: [facility] Address: [address] [place] [address] Performed By: #### 2 4356-8 ####[facility] LABCLIA [id number] [place] [address] [facility] LABORATORYCLIA [id number] [place] [address] [place] Nitrite Ql (U) Negative Normal Negative [facility] Comment on above: Order Comment: Speci men Type: URINE SPECIMENOrdering Facility: [facility] Address: [address] [place] [address] Performed By: #### 2 4356-8 ####[facility] LABCLIA [id number] [place] [address] [facility]ORATORYCLIA [id number] [address] [place] pH (U) 5.0 [pH] Normal 5.0-8.0 [facility] Comment on above: Order Comment: Speci men Type: URINE SPECIMENOrdering Facility: [facility] Address: [address] [place] [address] Performed By: #### 2 4356-8 ####[facility] LABCLIA [id number] [place] [address] [facility] LABORATORYCLIA [id number] [place] [address] [place] [facility] Protein (U) [Mass/Vol] Negative Normal Negative [facility] Comment on above: Order Comment: Speci men Type: URINE SPECIMENOrdering Facility: [facility] Address: [address] [place] [address] Performed By: #### 2 4356-8 ####[facility] LABCLIA [id number] [address] LABORATORYCLIA [id number] [place] [address] [place] RBC LM.HPF (Urine sed) [#/Area] 0-3 /HPF Normal 0-3 /HPF [facility] Comment on above: Order Comment: Speci men Type: URINE SPECIMENOrdering Facility: [facility] Address: [address] [place] [address] Performed By: #### 2 4356-8 ####[facility] LABCLIA [id number] [address] LABORATORYCLIA [id number] [address] [place] Specific gravity (U) [Rel density] 1.025 Normal 1.005-1.03 0 [facility] Comment on above: Order Comment: Speci men Type: URINE SPECIMENOrdering Facility: [facility] Address: [address] [place] [address] Performed By: #### 2 4356-8 ####[facility] LABCLIA [id number] [address] LABORATORYCLIA [id number] [address] Urobilinogen Ql (U) 0.2 EU/dL Normal 0.2-1.0 EU/dL [facility] Comment on above: Order Comment: Speci men Type: URINE SPECIMENOrdering Facility: [facility] Address: [address] [place] [address] Performed By: #### 2 4356-8 ####[facility] LABCLIA [id number] [place] [address] [facility] LABORATORYCLIA [id number] [address] WBC LM.HPF (Urine sed) [#/Area] /[HPF] Abnormal 0-5 /HPF [facility] Comment on above: Order Comment: Speci men Type: URINE SPECIMENOrdering Facility: [facility] Address: [address] [place] [address] Performed By: #### 2 4356-8 ####[facility] LABCLIA [id number] [address] LABORATORYCLIA [id number] [place] [address] Urinalysis complete pnl Uron 07-02-2024 Urinalysis complete panel (U) COLOR: Yellow CLARITY: Slightly Cloudy GLUCOSE, URINE: 2+ BILIRUBIN, URINE: 1+ Suggest correlation with clinical findings and serum bilirubin if clinically indicated. KETONES, URINE: Trace SPECIFIC GRAVITY, UR: 1.025 HEMOGLOBIN/BLOOD, UR: Negative PH, URINE: 5.0 PROTEIN, URINE: Negative UROBILINOGEN: 0.2 EU/dL NITRITES: Negative LEUKEST: Trace WBC, URINE: >25 /HPF RBC, URINE: 0-3 /HPF BACTERIA: Few SQUAMOUS EPITHELIAL CELLS: Few Few ORGANISM ID: 1 10,000 -<50,000 CFU/ml Gram negative bacilli Insignificant colony count. No further workup. ORGANISM ID: 2 <10,000 CFU/ml Lactose fermenting gram negative rods Insignificant colony count. No further workup. Normal [facility] Comment on above: Order Comment: Speci men Type: URINE SPECIMENOrdering Facility: [facility] Address: [address] [place] [address] Performed By: #### 2 4356-8 ####[facility] LABCLIA [id number] [place] [address] [facility] LABORATORYCLIA [id number] OF [facility] XR CHEST 1V FRONTALon 2023 XR CHEST 1V FRONTAL * * *Final Report* * * DATE OF EXAM: Jul 02 2024 11:51PM LDX 5290 - XR CHEST 1V FRONTAL / PROCEDURE REASON: Sepsis * * * * Physician Interpretation * * * * EXAMINATION: XR CHEST 1V FRONTAL CLINICAL HISTORY: Sepsis Technique: Single frontal view of the chest Comparison: None RESULT: Lungs and pleura: Low lung volumes. No focal parenchymal opacity. No pleural effusion or pneumothorax. Cardiomediastinal silhouette: Apparent mild enlargement of the cardiac silhouette may be exaggerated by portable technique. Bones and soft tissues: No acute osseous findings. IMPRESSION: Low lung volumes. Otherwise, no acute findings. Corporate Intern: [employer] Transcribe Date/Time: Jul 03 2024 12:38A Dictated by : KAI MORENO MD This examination was interpreted and the report reviewed and electronically signed by: KAI MORENO MD on Jul 03 2024 12:41AM EST [id number] Normal [facility] Basic Metabolic Profile (BMP )on 07-01-2024 BUN Normal 7-18 [facility] Comment on above: Result Comment: Canc elled via OM: Order cancelled - Patient discharged Performed By: #### L 500.2500 #### [facility] [address] [facility] [address] BUN/CRE Normal 10-20 [facility] Comment on above: Result Comment: Canc elled via OM: Order cancelled - Patient discharged Performed By: #### L 500.2500 #### [facility] [address] [facility] [address] CA,Total Normal 8.5-10.1 [facility] Comment on above: Result Comment: Canc elled via OM: Order cancelled - Patient discharged Performed By: #### L 500.2500 #### [facility] [address] [facility] [address] CL Normal 98-107 [facility] Comment on above: Result Comment: Canc elled via OM: Order cancelled - Patient discharged Performed By: #### L 500.2500 #### [facility] [address] [place], [address] CO2 Normal 21.0-32.0 [facility] Comment on above: Result Comment: Canc elled via OM: Order cancelled - Patient discharged Performed By: #### L 500.2500 #### [facility] [address] [place], [address] CREAT,SERUM Normal 0.70-1.30 [facility] Comment on above: Result Comment: Canc elled via OM: Order cancelled - Patient discharged Performed By: #### L 500.2500 #### [facility] [address] [place], [address] EST GFR Normal >60 [facility] Comment on above: Result Comment: Canc elled via OM: Order cancelled - Patient discharged Performed By: #### L 500.2500 #### [facility] [address] [place], [address] EST GFR - AA Normal >60 [facility] Comment on above: Result Comment: Canc elled via OM: Order cancelled - Patient discharged Performed By: #### L 500.2500 #### [facility] [address] [place], [address] GAP Normal 5-15 [facility] Comment on above: Result Comment: Canc elled via OM: Order cancelled - Patient discharged Performed By: #### L 500.2500 #### [facility] [address] [place], [address] GLU Normal 74-106 [facility] Comment on above: Result Comment: Canc elled via OM: Order cancelled - Patient discharged Performed By: #### L 500.2500 #### [facility] [address] [place], [address] Potassium Normal 3.5-5.1 [facility] Comment on above: Result Comment: Canc elled via OM: Order cancelled - Patient discharged Performed By: #### L 500.2500 #### [facility] [address] [place], [place], [id number] Basic Metabolic Profile (BMP) Normal 136-145 [facility] Comment on above: Result Comment: Canc elled via OM: Order cancelled - Patient discharged Performed By: #### L 500.2500 #### [facility] [address] [place], [place], [id number] CBC panel Auto (Bld)on 07-01 Erythrocyte distribution width (RBC) [Ratio] 12.4 % Normal 11.5-15.0 [facility] Comment on above: Order Comment: Kassie mitchell Type: BLOOD SPECIMEN Ordering Facility: [facility] Address: [address] [place] [address] Performed By: #### 2 432-8, #### [facility] CLIA [id number] [address] [place] [address] [place] Hematocrit (Bld) [Volume fraction] 34.4 % Low 39.0-51.0 [facility] Comment on above: Order Comment: Kassie mitchell Type: BLOOD SPECIMEN Ordering Facility: [facility] Address: [address] [place] [address] Performed By: #### 2 4328, #### [facility] CLIA [id number] [address] [place] [address] [place] Hemoglobin (Bld) [Mass/Vol] 10.9 g/dL Low 13.0-17.0 [facility] Comment on above: Order Comment: Kassie mitchell Type: BLOOD SPECIMEN Ordering Facility: [facility] Address: [address] [place] [address] Performed By: #### 2 43212-10, #### [facility] CLIA [id number] [address] [place] [address] [place] MCH (RBC) [Entitic mass] 30.3 pg Normal 26.0-34.0 [facility] Comment on above: Order Comment: Speci men Type: BLOOD SPECIMEN Ordering Facility: [facility] Address: [address] [place] [address] Performed By: #### 2 4323-8, #### [facility] CLIA [id number] [address] [place] [address] [place] MCHC (RBC) [Mass/Vol] 31.7 g/dL Normal 30.5-36.0 [facility] Comment on above: Order Comment: Speci men Type: BLOOD SPECIMEN Ordering Facility: [facility] Address: [address] [place], [place] [address] Performed By: #### 2 432-8, #### [facility] CLIA [id number] [address] [place] [address] [place] MCV (RBC) [Entitic vol] 95.6 fL Normal 80.0-100.0 [facility] Comment on above: Order Comment: Speci men Type: BLOOD SPECIMEN Ordering Facility: [facility] Address: [address] [place] [address] Performed By: #### 2 4323-8, #### [facility] CLIA [id number] [address] [place] [address] [place] Platelet mean volume (Bld) [Entitic vol] 8.6 fL Low 9.0-12.7 [facility] Comment on above: Order Comment: Speci men Type: BLOOD SPECIMEN Ordering Facility: [facility] Address: [address] [place] [address] Performed By: #### 2 4323-8, #### [facility] CLIA [id number] [address] [place] [address] [place] Platelets (Bld) [#/Vol] 424 10*3/uL High 150-400 [facility] Comment on above: Order Comment: Speci men Type: BLOOD SPECIMEN Ordering Facility: [facility] Address: [address] [place] [address] Performed By: #### 2 4323-8, #### [facility] CLIA [id number] [address] [place] [address] [place] RBC (Bld) [#/Vol] 3.60 10*6/uL Low 4.20-6.00 [facility] Comment on above: Order Comment: Speci men Type: BLOOD SPECIMEN Ordering Facility: [facility] Address: [address] [place] [address] Performed By: #### 2 4328, #### [facility] CLIA [id number] [address] [place] [address] [place] [facility] WBC (Bld) [#/Vol] 9.97 10*3/uL Normal 3.70-11.00 [facility] Comment on above: Order Comment: Speci men Type: BLOOD SPECIMEN Ordering Facility: [facility] Address: [address] [place] [address] Performed By: #### 2 43212-10, #### [facility] CLIA [id number] [address] [place] [address] [facility] Comprehensive metabolic 2000 panelon 07-01-2024 Albumin [Mass/Vol] 4.0 g/dL Normal 3.9-4.9 [facility] Comment on above: Order Comment: Speci men Type: BLOOD SPECIMEN Ordering Facility: [facility] Address: [address] [place] [address] Performed By: #### 2 43238, #### [facility] CLIA [id number] [address] [place] [address] [facility] ALP [Catalytic activity/Vol] 78 U/L Normal 38-113 [facility] Comment on above: Order Comment: Speci men Type: BLOOD SPECIMEN Ordering Facility: [facility] Address: [address] [place] [address] Performed By: #### 2 4323-8, #### [facility] CLIA [id number] [address] [place] [address] [place] ALT With P-5'-P [Catalytic activity/Vol] U/L Low 10-54 [facility] Comment on above: Order Comment: Speci men Type: BLOOD SPECIMEN Ordering Facility: [facility] Address: [address] [place] [address] Performed By: #### 2 432-8, #### [facility] CLIA [id number] [address] [place] [address] [place] Anion gap [Moles/Vol] 12 mmol/L Normal 8-15 [facility] Comment on above: Order Comment: Speci men Type: BLOOD SPECIMEN Ordering Facility: [facility] Address: [address] [place] [address] Performed By: #### 2 432-8, #### [facility] CLIA [id number] [address] [place] [address] [place] AST With P-5'-P [Catalytic activity/Vol] 14 U/L Normal 14-40 [facility] Comment on above: Order Comment: Speci men Type: BLOOD SPECIMEN Ordering Facility: [facility] Address: [address] [place] [address] Performed By: #### 2 8, #### [facility] CLIA [id number] [address] [place] [address] [place] Bilirubin [Mass/Vol] 0.6 mg/dL Normal 0.2-1.3 [facility] Comment on above: Order Comment: Speci men Type: BLOOD SPECIMEN Ordering Facility: [facility] Address: [address] [place] [address] Performed By: #### 2 4328, #### [facility] CLIA [id number] [address] [place] [address] [place] Calcium [Mass/Vol] 10.0 mg/dL Normal 8.5-10.2 [facility] Comment on above: Order Comment: Speci men Type: BLOOD SPECIMEN Ordering Facility: [facility] Address: [address] [place] [address] Performed By: #### 2 4323-8, #### [facility] CLIA [id number] [address] [place] [address] [place] Chloride [Moles/Vol] 99 mmol/L Normal 98-107 [facility] Comment on above: Order Comment: Speci men Type: BLOOD SPECIMEN Ordering Facility: [facility] Address: [address] [place] [address] Performed By: #### 2 4323-8, #### [facility] CLIA [id number] [address] [place] [address] [place] CO2 [Moles/Vol] 25 mmol/L Normal 22-30 [facility] Comment on above: Order Comment: Speci men Type: BLOOD SPECIMEN Ordering Facility: [facility] Address: [address] [place] [address] Performed By: #### 2 4323-8, #### [facility] CLIA [id number] [address] [place] [address] [place] Creatinine [Mass/Vol] 1.30 mg/dL High 0.73-1.22 [facility] Comment on above: Order Comment: Speci men Type: BLOOD SPECIMEN Ordering Facility: [facility] Address: [address] [place] [address] Performed By: #### 2 4323-8, #### [facility] CLIA [id number] [address] [place] [address] [place] [facility] [place] Creatinine and Glomerular filtration rate.predicted panel (S/P/Bld) 61 mL/min/1.73m??? Normal >=60 [facility] Comment on above: Order Comment: Speci men Type: BLOOD SPECIMEN Ordering Facility: [facility] Address: [address] [place] [address] Result Comment: Edie mated Glomerular Filtration Rate (eGFR) is calculated using the 2020 CKD-EPI creatinine equation. This equation utilizes serum creatinine, sex, and age as parameters. The creatinine assay has traceable calibration to isotope dilution-mass spectrometry. Refer to KDIGO guidelines for clinical interpretation. In patients with unstable renal function, e.g. those with acute kidney injury, the eGFR may not accurately reflect actual GFR. Performed By: #### 2 43212-10, #### [facility] CLIA [id number] [address] [place] [address] [place] Glucose [Mass/Vol] 134 mg/dL High 74-99 [facility] Comment on above: Order Comment: Kassie mitchell Type: BLOOD SPECIMEN Ordering Facility: [facility] Address: [address] [place], [place] [id number] Result Comment: The Indian Diabetes Association (ADA) [...] Indian Diabetes Association. Diabetes Care. 2016.39(Suppl 1). Performed By: #### 2 4323-05, #### [facility] CLIA [id number] [address] [place] [address] [place] Potassium [Moles/Vol] 4.1 mmol/L Normal 3.7-5.1 [facility] Comment on above: Order Comment: Kassie mitchell Type: BLOOD SPECIMEN Ordering Facility: [facility] Address: [address] [place] [address] Performed By: #### 2 43212-10, #### [facility] CLIA [id number] [address] [place] [address] [place] Protein [Mass/Vol] 6.9 g/dL Normal 6.3-8.0 [facility] Comment on above: Order Comment: Speci men Type: BLOOD SPECIMEN Ordering Facility: [facility] Address: [address] [place] [address] Performed By: #### 2 4323-8, #### [facility] CLIA [id number] [address] [place] [address] [place] Sodium [Moles/Vol] 136 mmol/L Normal 136-144 [facility] Comment on above: Order Comment: Speci men Type: BLOOD SPECIMEN Ordering Facility: [facility] Address: [address] [place] [address] Performed By: #### 2 4323-8, #### [facility] CLIA [id number] [address] [place] [address] [facility] Urea nitrogen [Mass/Vol] 24 mg/dL Normal 9-24 [facility] Comment on above: Order Comment: Speci men Type: BLOOD SPECIMEN Ordering Facility: [facility] Address: [address] [place] [address] Performed By: #### 2 4323-8, #### [facility] CLIA [id number] [address] [place] [address] [place] [facility] [place] Magnesium SerPl-mCncon 07-01 Magnesium [Mass/Vol] 2.4 mg/dL High 1.7-2.3 [facility] Comment on above: Order Comment: Speci men Type: BLOOD SPECIMEN Ordering Facility: [facility] Address: [address] [place] [address] Performed By: #### 2 4323-8, #### [facility] CLIA [id number] [address] [place] [address] [facility] [place] NUTRITIONon 07-01-2024 NUTRITION HNO ID: [id number] Author: MIN JAIN RD Service: Nutrition Therapy Author Type: Registered Dietitian Type: Nutrition Filed: 07/01/2024 12:14 Note Text: NUTRITION THERAPY INITIAL ASSESSMENT SERVICE DATE: 07/01/2024 SERVICE TIME: 11:15 AM Nutrition Assessment: Recommended Malnutrition Diagnosis: Mild Protein-Calorie Malnutrition In the context of: Chronic Illness or Injury Based on: Insufficient Energy Intake Nutrition Diagnosis: Problem: Suboptimal protein/energy intake Related to: Anorexia (r/t hypo/dysgeusia Dx PD) As evidenced by: Patient/family self-report, Weight loss Care Plan: Continue current diet Supplements: Mighty Shake No Sugar Added (BID agreeable to Andreina gonzalez bedside taste test) Monitor and Evaluation: Meet greater than 75% of estimated needs, Monitor fluid/electrolyte balance, Monitor labs, I/Os, vital signs, weight Discharge Recommendations: Diet;Oral Supplements Diet: regualr Oral Supplements: high protein twice daily HPI: 64 y/o male w/ PMHx below here for Aftercare [Z51.89] R/t Left knee osteoarthritis s/p TKA PAST MEDICAL HISTORY Diagnosis Date Anxiety and depression BPH (benign prostatic hyperplasia) Congestive heart failure (HCC) Diabetes (HCC) Dyslipidemia Hypertension Kidney stone Spinal stenosis TIA (transient ischemic attack) Tremor Parkinson's Last Wt 06/29/24 : 100.3 kg (221 lb 1.9 oz) 04/18/24 : 108.8 kg (239 lb 13.8 oz) 04/04/24 : 108.8 kg (239 lb 15.5 oz) 02/26/24 : 109.3 kg (241 lb) Intake History: Nutrition Intake Prior to Admission: Less than 50% estimated energy needs greater than or equal to 1 month Current Nutrition Intake: Less than 75% estimated energy needs Current Intake Over time: (50% ave @ 3 meals) Dosing Weight: 78.2 kg (172 lb 6.4 oz) Dosing Weight Type: [place] body weight Estimated kilocalorie needs: 0699-0743 Calorie Calculation Method: 25-30 kcals/kg Estimated protein needs (grams): 78-93 Grams protein determined by: 1.0 - 1.2 g/kg Diet Orders (From admission, onward) Start Ordered 06/29/24 1645 DIET REGULAR START NOW 06/29/24 1634 Anthropometrics: Height: 180.3 cm (5' 11) Weight: 100.3 kg (221 lb 1.9 oz) Usual Weight: 113.4 kg (250 lb) 1 yr EXERCISE RIDER stated w/ intentitional loss r/t snacks/sweets intake Usual Weight Obtained From: Patient (AND chart review 02/25-06/29) Body mass index is 30.84 kg/m?. Weight change percentage over time: 7.5% loss @ < 3mo w/ some of the recent loss probably unintended w/ stated <50% meal intake >2 mo. EXERCISE RIDER r/t hypogeusia Weight Change: Potentially clinically significant but does not meet criteria to support malnutrition diagnosis Physical Exam: Subcutaneous fat loss: No fat loss Muscle loss: No muscle loss GI Symptoms: Constipation, Hypogeusia/dysgeusia (new hypoguesia >2 mo EXERCISE RIDER , Constipation Hx resolved EXERCISE RIDER stated) Functional Status: Not related to malnutrition status Potential Signs of Inflammation: Acute post-operative MNT Billing: $ Initial Assessment: 1-15 minutes SIGNATURE: Min Jain RD PATIENT NAME: Nick San DATE: July 01, 2024 TIME: 11:28 AM Normal [facility] SOCIAL WORKon 07-01-2024 SOCIAL WORK HNO ID: [id number] Author: LEIA GODWIN LSW Service: Social Work Author Type: Senior Pastor Type: Social Work Filed: 07/01/2024 09:32 Note Text: Summary: Transport/Ortho follow-up SOCIAL WORK PROGRESS NOTE Name: Nick San Scheduled Life [facility] Wheelchair Van to flower buncher or picker patient on 07/06 at 9:30 for his 10:[address] up [address] Dr Ge. 925 Told patient of above and left info sheet in his room. Patient stated he is glad he's going by wheelchair and not by cot. It was a rough ride over. Patient denies any needs at this time. Signature: ALPA Black Date: July 01, 2024 Time: 8:59 AM Normal [facility] THERAPY NTon 07-01-2024 THERAPY NT HNO ID: [id number] Author: HILARY REESE, PT Service: Physical Therapy Author Type: Physical Therapist Type: Therapy (PT/OT/Speech/Resp) Filed: 07/01/2024 14:50 Note Text: Physical Therapy Assisted Facility Treatment Summary SERVICE DATE: 07/01/2024 SERVICE TIME: 1311 to 1348 ROOM: [place] [address] PT 6 Clicks Score: 18 DISCHARGE RECOMMENDATIONS Home PT Recommended Discharge Disposition Comments: Home PT with 27/04 supervision and assist from family as able followed by outpatient therapy for Parkinson's management Anticipated Discharge Needs: Family Training, Physical Assist at Home, Supervision at Home Recommended Discharge Equipment: ADL Kit GOALS Patient will demonstrate progress with functional mobility to allow safe discharge to home with available support and/or physical assistance. Able to Perform HEP with: Verbal Cues Only Rolling with: Modified Independent Transfer Supine to/from Sit with: Modified Independent Transfer Sit to/from Stand with: Supervision Ambulate with: Stand By Assistance Distance: 150+ Device: Wheeled Walker ROM: L knee 0-90 with < 2/10 pain Goal: TUG < 60 seconds at W Rehab Potential: Good Progress Toward Goals: Progressing as expected ASSESSMENT Response to Therapy Interventions: Improved Tolerance for Activity Patient tolerating 13 minutes on NuStep this date, however did present with 2 episodes of FOG this date with need to stop and reset, with significant knee extension noted with focus this date on quad activation/ quad sets and manual overpressure x 2 minutes to the L knee to improve extension. Continue as tolerated. Plan for Next Visit: Gait Training, Exercise Instruction/Handout PRECAUTIONS Fall Risk, Total Knee Replacement, Other: See Comments RUE/RLE tremors; Parkinson's; konstantin tyson SUBJECTIVE I am so stiff. Can we ride the bike? FUNCTIONAL STATUS Bed Mobility Rolling: Contact Guard Assistance (in either direction) Supine To Sit: Moderate Assistance (assist for trunk and LEs, patient reporting, I'm doing worse today.) Sit to Supine: Minimal Assistance (assist for BLEs) Scooting: Stand By Assistance Transfers Sit To Stand: Contact Guard Assistance (cueing for hand placement) Stand To Sit: Contact Guard Assistance Bed to Chair Contact Guard Assistance Bed To Chair Transfer Type: Stepping Bed To Chair Transfer Equipment: Gait Belt, Wheeled Walker Gait Contact Guard Assistance Gait Device: Wheeled Walker Gait Distance (feet): 65' x 2 Gait Deviations Left Lower Extremity: (encouragement for knee extension during gait cycle) Stairs (N/A) CURRENT HOSPITAL COURSE Pt is 64 y/o male who presents to [facility] after elective TKA on 06/22 at [facility] through 06/29. Pt has diagnosis of Parkinson's and has multiple falls, and has some confusion at baseline. Pt presents with pain, weakness and increased need for assist with personal care. He would benefit from further therapy services to ensure safe d/c home as spouse is unable to physically assist him. Relevant Past Medical History: HTN, HFrEF, T2DM, Parkinson's disease, Possible stroke per daughter, L TKA 06/22/24; HOME LIVING Patient Lives With: Spouse (spouse is 80 year old; [facility] apartment) Assistance Available: 24-Hour (from spouse, minimal physical assist; daughter and son in law live in [place] but can come up at any time.) Entry To Home: No Stairs Number Of Stairs To Bed/Bath: 0 Tub/Shower Type: tub shower Laundry: same level- spouse completes Equipment Owned: Commode- 3 in 1, Extended Tub Bench, Walker- Wheeled (transport chair, sleeps in regular flat bed) PRIOR FUNCTIONAL LEVEL Required Assistance Assistance Required With: Medication Management, Self Care, Shopping Pt was GA with mobility; limited distances d/t pain in knee; pt would use cart in grocery store, no AD in house; Pt typically sleeps in recliner. He required assist w/ bathing and LB dressing; Spouse does most meals, laundry and cleaning; +driving despite family trying to get him to stop. Per daughter, pt and spouse resistant to AE and suggestions. Per chart, pt and spouse have hoarding tendencies so there is limited space in home. Spouse is 80 y/o and unable to physically assist pt. History of low back pain which appears to be fixed by surgery. One fall at home, no injuries. Diagnosed with Parkinson's February 2024- doesn't appear to have many symptoms yet per patient. THERAPY DIAGNOSIS Reduced mobility-other, Muscle Weakness (generalized), Difficulty walking-musculoskeletal TREATMENT INTERVENTIONS Therapeutic Exercise (95623), Gait Training (71013) Timed Code Treatment (minutes): 37 Skilled Treatment Time (minutes): 37 EXERCISE Exercises Exercise Performed: Ankle Pumps Ankle Pumps (number of reps): 2 x 10 Quad Sets (number of reps): 2 x 10 with 2 second holds LLE Exercise: NuStep level 2 x 13 minutes seat 12 emphasizing end range extensi (more content not included)... Normal [facility] THERAPY NT HNO ID: [id number] Author: HILARY REESE, PT Service: Physical Therapy Author Type: Physical Therapist Type: Therapy (PT/OT/Speech/Resp) Filed: 07/01/2024 12:24 Note Text: Physical Therapy Assisted Facility Treatment Summary SERVICE DATE: 07/01/2024 SERVICE TIME: 1040 to 1110 ROOM: [place] [address] PT 6 Clicks Score: 17 DISCHARGE RECOMMENDATIONS Home PT Recommended Discharge Disposition Comments: Home PT with 27/04 supervision and assist from family as able followed by outpatient therapy for Parkinson's management Anticipated Discharge Needs: Family Training, Physical Assist at Home, Supervision at Home Recommended Discharge Equipment: ADL Kit GOALS Patient will demonstrate progress with functional mobility to allow safe discharge to home with available support and/or physical assistance. Able to Perform HEP with: Verbal Cues Only Rolling with: Modified Independent Transfer Supine to/from Sit with: Modified Independent Transfer Sit to/from Stand with: Supervision Ambulate with: Stand By Assistance Distance: 150+ Device: Wheeled Walker ROM: L knee 0-90 with < 2/10 pain Goal: TUG < 60 seconds at W Rehab Potential: Fair Progress Toward Goals: Progressing as expected ASSESSMENT Response to Therapy Interventions: Limited Participation, Low Activity Tolerance Patient reporting increased pain this date after prolonged sitting in chair, but was agreeable to ambulation in halls to attempt to improve stiffness, requesting to lay down after ambulation. Cold pack applied to L knee after ambulation, and nursing made aware. Will trial NuStep in PM. Plan for Next Visit: Gait Training (NuStep) PRECAUTIONS Fall Risk, Total Knee Replacement, Other: See Comments RUE/RLE tremors; Parkinson's; pryor MIRANDA hose SUBJECTIVE I think I sat for too long. I just took an oxy. FUNCTIONAL STATUS Bed Mobility Rolling: Contact Guard Assistance (in either direction) Supine To Sit: Minimal Assistance (assist for trunk and LEs) Sit to Supine: Minimal Assistance (assist for BLEs) Scooting: Stand By Assistance Transfers Sit To Stand: Contact Guard Assistance (from 20 chair) Stand To Sit: Contact Guard Assistance Bed to Chair Contact Guard Assistance Bed To Chair Transfer Type: Stepping Bed To Chair Transfer Equipment: Gait Belt, Wheeled Walker Gait Contact Guard Assistance Gait Device: Wheeled Walker Gait Distance (feet): 50' x 2 Gait Deviations Left Lower Extremity: (knee flexion throughout stance and swing phases of gait due to stiffness) Stairs (N/A) CURRENT HOSPITAL COURSE Pt is 64 y/o male who presents to [facility] after elective TKA on 06/22 at [facility] through 06/29. Pt has diagnosis of Parkinson's and has multiple falls, and has some confusion at baseline. Pt presents with pain, weakness and increased need for assist with personal care. He would benefit from further therapy services to ensure safe d/c home as spouse is unable to physically assist him. Relevant Past Medical History: HTN, HFrEF, T2DM, Parkinson's disease, Possible stroke per daughter, L TKA 06/22/24; HOME LIVING Patient Lives With: Spouse (spouse is 80 year old; [facility] apartment) Assistance Available: 24-Hour (from spouse, minimal physical assist; daughter and son in law live in [place] but can come up at any time.) Entry To Home: No Stairs Number Of Stairs To Bed/Bath: 0 Tub/Shower Type: tub shower Laundry: same level- spouse completes Equipment Owned: Commode- 3 in 1, Extended Tub Bench, Walker- Wheeled (transport chair, sleeps in regular flat bed) PRIOR FUNCTIONAL LEVEL Required Assistance Assistance Required With: Medication Management, Self Care, Shopping Pt was GA with mobility; limited distances d/t pain in knee; pt would use cart in grocery store, no AD in house; Pt typically sleeps in recliner. He required assist w/ bathing and LB dressing; Spouse does most meals, laundry and cleaning; +driving despite family trying to get him to stop. Per daughter, pt and spouse resistant to AE and suggestions. Per chart, pt and spouse have hoarding tendencies so there is limited space in home. Spouse is 80 y/o and unable to physically assist pt. History of low back pain which appears to be fixed by surgery. One fall at home, no injuries. Diagnosed with Parkinson's February 2024- doesn't appear to have many symptoms yet per patient. THERAPY DIAGNOSIS Reduced mobility-other, Muscle Weakness (generalized), Difficulty walking-musculoskeletal TREATMENT INTERVENTIONS Gait Training (83110) Timed Code Treatment (minutes): 30 Skilled Treatment Time (minutes): 30 EXERCISE None performed this session TRAINING AND EDUCATION PROVIDED Discharge Planning, Disease Specific Education, Falls Prevention, Gait Pattern, Reduction of Deviations, Home Safety, Home Set-up/Modifications, Modalities, Pain Neuroscience, Positioning, Precautions/Restrictions THERAPEUTIC SKILLS USED Activi (more content not included)... Normal [facility] THERAPY NT HNO ID: [id number] Author: ESTRELLA CROUCH OTR/L Service: Occupational Therapy Author Type: Hand Fabric Cutter Type: Therapy (PT/OT/Speech/Resp) Filed: 07/01/2024 10:25 Note Text: Attestation signed by Estrella Crouch OTR/L at 07/01/2024 10:25 AM I reviewed and agree with the documentation corresponding to this therapy visit. SIGNATURE: NICHOLAS Jones DATE: July 01, 2024 TIME: 10:25 AM Summary: OT Insurance Update Occupational Therapy Assisted Facility Treatment Summary SERVICE DATE: 07/01/2024 SERVICE TIME: 905 to 943 ROOM: [place] [address] OT 6 Clicks Score: 17 DISCHARGE RECOMMENDATIONS Home OT Recommended Discharge Disposition Comments: Pending progress and family availability to continue to provide assistance Anticipated Discharge Needs: Family Training, Physical Assist at Home, Supervision at Home Recommended Discharge Equipment: ADL Kit, Long Handled Sponge, Grab Bars-Shower, Walker bag/basket GOALS Patient will demonstrate progress with self-care, cognitive and/or coping needs identified to allow safe discharge to home with available support and/or physical assistance. Grooming with: Stand By Assistance (standing at sink) Upper Body Bathing with: Modified Independent Upper Body Dressing with: Modified Independent Lower Body Bathing with: Minimal Assistance Lower Body Dressing with: Minimal Assistance Toilet Hygiene with: Stand By Assistance Toilet Transfer with: Modified Independent Tub Transfer with: Contact Guard Assistance Progress Toward Goals: Progressing as expected Rehab Potential: Good ASSESSMENT Response to Therapy Interventions: Cognitive Deficits, Good Participation in Activities, Low Activity Tolerance Pt using AE for LB dressing today with fair+ teachback. Pt would benefit from continued practice with AE for increased (I) in LB dressing. Plan for Next Visit: Bathing Training, Bed Mobility, Chair/Commode Transfer Training, Dressing Training, Energy Conservation, Grooming Training, Sit to Stand Transfers, Sitting Tolerance, Sitting Balance, Standing Balance, Standing Tolerance, Toileting Instruction, Fall Prevention PRECAUTIONS Fall Risk, Total Knee Replacement, Other: See Comments RUE/RLE tremors; Parkinson's; konstantin tyson SUBJECTIVE Pt amenable to OT - reporting pain with mobility. FUNCTIONAL STATUS Activities of Daily Living Assist Level Additional Information Feeding Set Up Grooming Stand By Assistance, Additional Information standing at sink to brush teeth and hair Bathing Upper Body Minimal Assistance Bathing Lower Body Maximal Assistance Dressing Upper Body Set Up, Additional Information overhead shirt Dressing Lower Body Minimal Assistance, Additional Information introduced to use of AE: dressing stick, sock aide, LHR for LB dressing tasks. Assist for sock aide and threading shorts over LLE Toileting Maximal Assistance, Additional Information Attempting to have BM - only gas. Pt's pryor removed just prior to session but unable to urinate at this time. No LB clothing to manage at this time. Other times, pt has required up to MaxA for toileting tasks. Instrumental Activities of Daily Living Assist Level Additional Information Meal/Beverage Prep Total Assistance Cleaning Total Assistance Laundry Total Assistance Medication Management with Strategies Mobility Assist Level Additional Information Bed Mobility Supine To Sit: Minimal Assistance Sit to Stand Contact Guard Assistance Stand to Sit Contact Guard Assistance Bed to Chair Contact Guard Assistance Bed To Chair Transfer Type: Stepping Bed To Chair Transfer Equipment: Wheeled Walker, Gait Belt Toilet/Commode Contact Guard Assistance Shower Functional Mobility Contact Guard Assistance Functional Mobility Device: Wheeled Walker CURRENT HOSPITAL COURSE Pt is 64 y/o male who presents to [facility] after elective TKA on 06/22 at [facility] through 06/29. Pt has diagnosis of Parkinson's and has multiple falls, and has some confusion at baseline. Pt presents with pain, weakness and increased need for assist with personal care. He would benefit from further therapy services to ensure safe d/c home as spouse is unable to physically assist him. Relevant Past Medical History: HTN, HFrEF, T2DM, Parkinson's disease, Possible stroke per daughter, L TKA 06/22/24; HOME LIVING Patient Lives With: Spouse (spouse is 80 year old; [facility] apartment) Assistance Available: 24-Hour (from spouse, minimal physical assist; daughter and son in law live in [place] but can come up at any time.) (more content not included)... Normal [facility] Basic Metabolic Profile (BMP )on 06-30-2024 BUN Normal - [facility] Comment on above: Result Comment: Canc elled via OM: Order cancelled - Patient discharged Performed By: #### L 501.080 #### [facility] [address] [place], [place], [id number] BUN/CRE Normal - [facility] Comment on above: Result Comment: Canc elled via OM: Order cancelled - Patient discharged Performed By: #### L 501.080 #### [facility] [address] [place], [address] CA,Total Normal 8.5-10.1 [facility] Comment on above: Result Comment: Canc elled via OM: Order cancelled - Patient discharged Performed By: #### L 501.080 #### [facility] [address] [place], [address] CL Normal 98-107 [facility] Comment on above: Result Comment: Canc elled via OM: Order cancelled - Patient discharged Performed By: #### L 501.080 #### [facility] [address] [place], [address] CO2 Normal 21.0-32.0 [facility] Comment on above: Result Comment: Canc elled via OM: Order cancelled - Patient discharged Performed By: #### L 501.080 #### [facility] [address] [place], [address] CREAT,SERUM Normal 0.70-1.30 [facility] Comment on above: Result Comment: Canc elled via OM: Order cancelled - Patient discharged Performed By: #### L 501.080 #### [facility] [address] [place], [address] EST GFR Normal >60 [facility] Comment on above: Result Comment: Canc elled via OM: Order cancelled - Patient discharged Performed By: #### L 501.080 #### [facility] [address] [place], [address] EST GFR - AA Normal >60 [facility] Comment on above: Result Comment: Canc elled via OM: Order cancelled - Patient discharged Performed By: #### L 501.080 #### [facility] [address] [place], [address] GAP Normal 5-15 [facility] Comment on above: Result Comment: Canc elled via OM: Order cancelled - Patient discharged Performed By: #### L 501.080 #### [facility] [address] [place], [address] GLU Normal 74-106 [facility] Comment on above: Result Comment: Canc elled via OM: Order cancelled - Patient discharged Performed By: #### L [id number] #### [facility] [address] [place], [address] Potassium Normal 3.5-5.1 [facility] Comment on above: Result Comment: Canc elled via OM: Order cancelled - Patient discharged Performed By: #### L 501.080 #### [facility] [address] [place], [address] Basic Metabolic Profile (BMP) Normal 136-145 [facility] Comment on above: Result Comment: Canc elled via OM: Order cancelled - Patient discharged Performed By: #### L 501.080 #### [facility] [address] [place], [address] CASE MGT INIT Francheska 2023 CASE MGT INIT LEVAR HNO ID: [id number] Author: LEIA GODWIN LSW Service: Social Work Author Type: Senior Pastor Type: Care Mgt Initial Assessment Filed: 07/05/2024 15:59 Note Text: Summary: Initial Assessment 1015CARE MANAGEMENT: ASSESSMENT AND DISCHARGE PLAN SERVICE DATE: June 30, 2024 SERVICE TIME: 101 PCP: Aga Benitez MD Primary Contact: Extended Emergency Contact Information Primary Emergency Contact: Becka Chao Mobile Relation: Daughter Preferred language: SAO TOMEAN Shop Welder needed? No Secondary Emergency Contact: Dank Grier Mobile Relation: Relative Preferred language: SAO TOMEAN Shop Welder needed? No Admission Status: Inpatient Swing Insurance Provider: [employer] MEDICARE HMO Discharge [...] you manage to accomplish the following: Independent: Going to the bathroom Needs Assistance: Bathe/Shower;Dress;Medicati on Management;Transportation to appointments/community Dependent: Meals/Meal Prep Current Services/Equipment Current Post-Acute Service(s): DME Current DME Type: Elevated toilet seat, Rolling walker, Wheelchair-manual, Transfer tub bench, Other: See Comment (transport chair) Discharge Planning Patient Goal(s): Be able to go home, Independent living, Better mobility [place] of Choice Explained: [place] of Choice Given: Yes Level of Care Discussed: Home Care (No agency preference) Discharge Planning Participant(s): Patient;Family (Talked with family first while patient in therapy, then patient seperately) Patient/Family Comments: Family: If patient is not able to return home upon dc, we will take him to [place] with us. Patient: I plan to return home. Caregiver Assessment: Caregiver is ready, willing and able to meet the patient's needs as recommended by the inter-professional team: Yes Name of Caregiver: Dtr Carmina and son-in-law Dank Transport at Discharge: TBD Needs Prior to Discharge: Needs Prior to Discharge: To Be Determined;Facility or Agency Choices;Home Care Order Post-Acute Discharge Plan: Home with [facility] Patient lives with his Cathie who has chronic back pain. His dtr Carmina and her S.O. Dank are here from [place] and have been traveling back and forth frequently since patient got hospitalized. Patient is aware of follow up appt with Dr Stout in [place] on 07/06 and thinks his son-in-law can transport him. Patient feels confident that he will be fine to return home. Carmina shared that both patient and recently applied for Medicaid and both were denied. Carmina and Dank plan to take patient to their home in [place] if patient is unable to function safely at home SIGNATURE: ALPA Black PATIENT NAME: Nick San DATE: June 30, 2024 TIME: 11:51 AM CONTACT #: [id number] [facility] HISTORY PHYSICALon HISTORY PHYSICAL HNO ID: [id number] Author: ERASMO GUDINO MD Service: Hospital Medicine Author Type: Nurse Practitioner Type: H&P Filed: 08/05/2024 18:31 Note Text: Attestation signed by Erasmo Gudino MD at 08/05/2024 6:31 PM Attending Note I have personally reviewed the MARIA D note and have discussed the management of this patient with the MARIA D. Active Hospital Problems Diagnosis Aftercare Status post total left knee replacement Parkinson's disease with dyskinesia (HCC) Chronic combined systolic and diastolic heart failure (HCC) Type 2 diabetes mellitus without complication, without long-term current use of insulin (HCC) Mild depression Essential (primary) hypertension Other additions or changes: As edited Signature: Erasmo Gudino MD, [facility] Date: June 30, 2024 Time: 8:30 PM DEPARTMENT OF [facility] MEDICINE HISTORY AND PHYSICAL EXAM SERVICE DATE: 06/30/2024 SERVICE TIME: 11:36 AM Primary Care Physician: Aga Benitez MD NIGHT AND WEEKEND COVERAGE: [facility] Medicine MARIA D 7a-7p Page [id number] 7p-7l Subjective CHIEF COMPLAINT: rehabilitation following hospitalization HPI: This is a 64 year old male with PMH DMII, BPH, Parkinson's disease, depression, diastolic HF, admitted to [facility] on 06/22/2024 for elective left total [...] without much success. Patient was discharged with Pryor in place due to acute urinary retention noted on admission to [place]. Patient was evaluated by therapy, thus patient was transferred to [facility] for further services. Today, patient resting in bed with family at bedside. Patient reports pain to his left knee, but tolerable. Pryor remains in place and patient reports no BM since admission to [place]. MOM was administered this morning by nursing. Patient lives at home alone and is hopeful to return at [place]. Code status was discussed with patient and updated in [employer]. PAST MEDICAL HISTORY Diagnosis Date Anxiety and [...] Drug use: Never PRIOR TO ADMISSION MEDICATIONS: spironolactone (ALDACTONE) 25 mg tablet, Take 1 tablet by mouth once daily., Disp: 90 tablet, Rfl: 3 carbidopa-levodopa (SINEMET 25-100) 25-100 mg per tablet, Take 1 tablet by mouth three times a day., Disp: 90 tablet, Rfl: 5 lisinopril-hydroCHLOROthiaz james (ZESTORETIC) 20-12.5 mg per tablet, Take 1 tablet by mouth once daily., Disp: , Rfl: atorvastatin (LIPITOR) 20 mg tablet, Take 1 tablet by mouth daily at bedtime., Disp: 90 tablet, Rfl: 1 dapagliflozin propanediol (FARXIGA) 10 mg tablet, Take 1 tablet by mouth daily with breakfast., Disp: 90 tablet, Rfl: 3 aspirin 81 mg cap, Take 81 mg by mouth once daily., Disp: , Rfl: iv contrast (will be provided with radiology [...] guidelines link., Disp: 1 Each, Rfl: 0 amLODIPine (NORVASC) 10 mg tablet, Take 10 mg by mouth once daily., Disp: , Rfl: cloNIDine HCl (CATAPRES) 0.2 mg tablet, Take 0.2 mg by mouth two times a day., Disp: , Rfl: citalopram (CELEXA) 40 mg tablet, Take 40 mg by mouth once daily., Disp: , Rfl: tamsulosin (FLOMAX) 0.4 mg, Take 0.4 mg by mouth once daily., Disp: , Rfl: ALLERGIES Allergen Reactions Acetaminophen GI Upset Hydrocodo (more content not included)... Normal [facility] SOCIAL WORKon 06-30-2024 SOCIAL WORK HNO ID: [id number] Author: LEIA GODWIN LSW Service: Social Work Author Type: Senior Pastor Type: Social Work Filed: 06/30/2024 14:43 Note Text: Summary: Appointment SOCIAL WORK PROGRESS NOTE Name: Nick San Received message from RN that family states patient will need transportation for ortho follow up appt on 07/06 at 10:45. Signature: ALPA Black Date: June 30, 2024 Time: 2:42 PM Normal [facility] THERAPY NTon 06-30-2024 THERAPY NT HNO ID: [id number] Author: LARY BOB PT Service: Physical Therapy Author Type: Guideman Type: Therapy (PT/OT/Speech/Resp) Filed: 06/30/2024 18:22 Note Text: Attestation signed by Lary Bob PT at 06/30/2024 6:22 PM I reviewed and agree with the documentation corresponding to this therapy visit. SIGNATURE: Lary Bob PT DATE: June 30, 2024 TIME: 6:22 PM Physical Therapy Assisted Facility Treatment Summary SERVICE DATE: 06/30/2024 SERVICE TIME: 1516 to 1555 ROOM: [place] [address] PT 6 Clicks Score: 16 DISCHARGE RECOMMENDATIONS Home PT Recommended Discharge Disposition Comments: Home PT with 27/04 supervision and assist from family as able followed by outpatient therapy for Parkinson's management Anticipated Discharge Needs: Family Training, Physical Assist at Home, Supervision at Home Recommended Discharge Equipment: ADL Kit GOALS Patient will demonstrate progress with functional mobility to allow safe discharge to home with available support and/or physical assistance. Able to Perform HEP with: Verbal Cues Only Rolling with: Modified Independent Transfer Supine to/from Sit with: Modified Independent Transfer Sit to/from Stand with: Supervision Ambulate with: Stand By Assistance Distance: 150+ Device: Wheeled Walker ROM: L knee 0-90 with < 2/10 pain Goal: TUG < 60 seconds at W Rehab Potential: Fair Progress Toward Goals: Progressing as expected ASSESSMENT Response to Therapy Interventions: Good Participation in Activities Patient able to ambulate to therapy room and trial nustep this session. Patient tolerates nustep well and states serval time while riding it that it feels good and he likes it. Patient also completes a few supine exercises on his LLE overall patient tolerates well with minimum pain however he requires some assist from EXERCISE RIDER when performing SLR and SAQ due to weakness. Plan for Next Visit: Gait Training, Exercise Instruction/Handout PRECAUTIONS Fall Risk, Total Knee Replacement, Other: See Comments RUE/RLE tremors; Parkinson's; konstantin tyson SUBJECTIVE I like that bike FUNCTIONAL STATUS Bed Mobility Rolling: Contact Guard Assistance (in either direction) Supine To Sit: Minimal Assistance (assist for trunk and LEs) Sit to Supine: Minimal Assistance (assist for LEs) Scooting: Contact Guard Assistance (cues for technique) Transfers Sit To Stand: Contact Guard Assistance (cues for hand placement) Stand To Sit: Contact Guard Assistance Bed to Chair Contact Guard Assistance Bed To Chair Transfer Type: Stepping Bed To Chair Transfer Equipment: Gait Belt, Wheeled Walker Gait Contact Guard Assistance Gait Device: Wheeled Walker General Deviations/Observations: Antalgic gait, Margareth decreased, Difficulty changing direction/turning, Flexed trunk posture, Narrow Base of Support, Shuffling Gait, Step length decreased Gait Distance (feet): 40 x 2 Gait Deviations Left Lower Extremity: Stance time decreased, Weight bearing decreased Stairs (N/A) CURRENT HOSPITAL COURSE Pt is 64 y/o male who presents to [facility] after elective TKA on 06/22 at [facility] through 06/29. Pt has diagnosis of Parkinson's and has multiple falls, and has some confusion at baseline. Pt presents with pain, weakness and increased need for assist with personal care. He would benefit from further therapy services to ensure safe d/c home as spouse is unable to physically assist him. Relevant Past Medical History: HTN, HFrEF, T2DM, Parkinson's disease, Possible stroke per daughter, L TKA 06/22/24; HOME LIVING Patient Lives With: Spouse (spouse is 80 year old; [facility]) Assistance Available: 24-Hour (from spouse, minimal physical assist; daughter and son in law live in [place] but can come up at any time.) Entry To Home: No Stairs Number Of Stairs To Bed/Bath: 0 Tub/Shower Type: tub shower Laundry: same level- spouse completes Equipment Owned: Commode- 3 in 1, Extended Tub Bench, Walker- Wheeled (transport chair, sleeps in regular flat bed) PRIOR FUNCTIONAL LEVEL Required Assistance Assistance Required With: Medication Management, Self Care, Shopping Pt was GA with mobility; limited distances d/t pain in knee; pt would use cart in grocery store, no AD in house; Pt typically sleeps in recliner. He required assist w/ bathing and LB dressing; Spouse does most meals, laundry and cleaning; +driving despite family trying to get him to stop. Per daughter, pt and spouse resistant to AE and suggestions. Per chart, pt and spouse have hoarding tendencies so there is limited space in home. Spouse is 80 y/o and unable to physically assist pt. History of low back pain which appears to be fixed by surgery. One fall at home, no injurie (more content not included)... Normal [facility] THERAPY NT HNO ID: [id number] Author: HILARY REESE, PT Service: Physical Therapy Author Type: Physical Therapist Type: Therapy (PT/OT/Speech/Resp) Filed: 06/30/2024 11:28 Note Text: Summary: PT evaluation note Physical Therapy Assisted Facility Evaluation Summary SERVICE DATE: 06/30/2024 SERVICE TIME: 1039 to 1110 ROOM: [place] [address] PT 6 Clicks Score: 16 DISCHARGE RECOMMENDATIONS Home PT Recommended Discharge Disposition Comments: Home PT with 27/04 supervision and assist from family as able followed by outpatient therapy for Parkinson's management Anticipated Discharge Needs: Family Training, Physical Assist at Home, Supervision at Home Recommended Discharge Equipment: ADL Kit GOALS Patient will demonstrate progress with functional mobility to allow safe discharge to home with available support and/or physical assistance. Able to Perform HEP with: Verbal Cues Only Rolling with: Modified Independent Transfer Supine to/from Sit with: Modified Independent Transfer Sit to/from Stand with: Supervision Ambulate with: Stand By Assistance Distance: 150+ Device: Wheeled Walker ROM: L knee 0-90 with < 2/10 pain Goal: TUG < 60 seconds at FWW Rehab Potential: Fair Progress Toward Goals: Progressing slower than expected ASSESSMENT Response to Therapy Interventions: Good Participation in Activities Patient is a 64 year old male presenting from [facility] to [facility] s/p elective L TKA with WBAT status, pryor placement, and history of Parkinson's disease. At baseline he appears to have some tone/ rigidity of the trunk and LEs, with hamstrings and heel cords of most tighess and potential hip flexors, though he reports my back is also messed up. Discussion regarding progression to standing and ambulation based tasks, with patient's TUG this date at 2 minutes 8 seconds suggesting high fall risk at FWW. Will require 24/7 supervision and assist upon discharge, with daughter and EDDI to potentially stay from [place] upon discharge to assist with all mobility. Recommend at least 1-2 weeks of skilled services to work towards independence at decreased fall risk while also encouraging home health PT upon d/c and potential for outpatient therapy not only for the TKA but also for his new onset of Parkinson's. Plan for Next Visit: Gait Training, Exercise Instruction/Handout PRECAUTIONS Fall Risk, Total Knee Replacement, Other: See Comments RUE/RLE tremors; Parkinson's; konstantin tyson SUBJECTIVE I just got done walking; it's not bad. Agreeable to evaluation. FUNCTIONAL STATUS Bed Mobility Rolling: Contact Guard Assistance (in either direction) Supine To Sit: Minimal Assistance (assist for trunk and LEs) Sit to Supine: Minimal Assistance (assist for LEs) Scooting: Contact Guard Assistance Transfers Sit To Stand: Contact Guard Assistance, Minimal Assistance (from 20 chair) Stand To Sit: Minimal Assistance (rigidity in trunk causing difficulty with trunk and hip flexion) Bed to Chair Contact Guard Assistance Bed To Chair Transfer Type: Stepping Bed To Chair Transfer Equipment: Gait Belt, Wheeled Walker Gait Contact Guard Assistance Gait Device: Wheeled Walker General Deviations/Observations: Antalgic gait, Margareth decreased, Difficulty changing direction/turning, Flexed trunk posture, Narrow Base of Support, Shuffling Gait, Step length decreased Gait Distance (feet): 18' x 2 Gait Deviations Left Lower Extremity: Stance time decreased, Weight bearing decreased (B knee flexion throughout with decreased heel strike due to heel cord and hamstring tightness) Stairs (N/A) CURRENT HOSPITAL COURSE Pt is 64 y/o male who presents to [facility] after elective TKA on 06/22 at [facility] through 06/29. Pt has diagnosis of Parkinson's and has multiple falls, and has some confusion at baseline. Pt presents with pain, weakness and increased need for assist with personal care. He would benefit from further therapy services to ensure safe d/c home as spouse is unable to physically assist him. Relevant Past Medical History: HTN, HFrEF, T2DM, Parkinson's disease, Possible stroke per daughter, L TKA 06/22/24; HOME LIVING Patient Lives With: Spouse (spouse is 80 year old; [address] apartment) Assistance Available: 24-Hour (from spouse, minimal physical assist; daughter and son in law live in [place] but can come up at any time.) Entry To Home: No Stairs Number Of Stairs To Bed/Bath: 0 Tub/Shower Type: tub shower Laundry: same level- spouse completes Equipment Owned: Commode- 3 in 1, Extended Tub Bench, Walker- Wheeled (transport chair, sleeps in regular flat bed) PRIOR FUNCTIONAL LEVEL Required Assistance Assistance Required With: Medication Management, Self Care, Shopping Pt was GA with (more content not included)... Normal [facility] THERAPY NT HNO ID: [id number] Author: ESTRELLA CROUCH OTR/[place] Service: Occupational Therapy Author Type: Occupational Therapist Type: Therapy (PT/OT/Speech/Resp) Filed: 06/30/2024 10:44 Note Text: Summary: OT evlauation Occupational Therapy Assisted Facility Evaluation Summary SERVICE DATE: 06/30/2024 SERVICE TIME: 919 ROOM: [place] [address] OT 6 Clicks Score: 15 DISCHARGE RECOMMENDATIONS Home OT Recommended Discharge Disposition Comments: Pending progress and family availability to continue to provide assistance Anticipated Discharge Needs: Family Training, Physical Assist at Home, Supervision at Home Recommended Discharge Equipment: ADL Kit, Long Handled Sponge, Grab Bars-Shower, Walker bag/basket GOALS Patient will demonstrate progress with self-care, cognitive and/or coping needs identified to allow safe discharge to home with available support and/or physical assistance. Grooming with: Stand By Assistance (standing at sink) Upper Body Bathing with: Modified Independent Upper Body Dressing with: Modified Independent Lower Body Bathing with: Minimal Assistance Lower Body Dressing with: Minimal Assistance Toilet Hygiene with: Stand By Assistance Toilet Transfer with: Modified Independent Tub Transfer with: Contact Guard Assistance Progress Toward Goals: Progressing as expected Rehab Potential: Good ASSESSMENT Response to Therapy Interventions: Cognitive Deficits, Good Participation in Activities, Low Activity Tolerance Pt presents s/p L TKA at [facility]; pt has Parkinson's and limited physical support at home. He needs to be as independent as possible prior to d/c home. Pt would benefit from cont. therapy services to maximize independence and safety. Plan for Next Visit: Bathing Training, Bed Mobility, Chair/Commode Transfer Training, Dressing Training, Energy Conservation, Grooming Training, Sit to Stand Transfers, Sitting Tolerance, Sitting Balance, Standing Balance, Standing Tolerance, Toileting Instruction, Fall Prevention PRECAUTIONS Fall Risk, Total Knee Replacement, Other: See Comments RUE/RLE tremors; Parkinson's; konstantin tyson SUBJECTIVE Pt agreeable to OT; agreeable to sitting in chair; daughter and son in law assisting with answering questions FUNCTIONAL STATUS Activities of Daily Living Assist Level Additional Information Feeding Set Up Grooming Minimal Assistance Bathing Upper Body Minimal Assistance Bathing Lower Body Maximal Assistance Dressing Upper Body Minimal Assistance Dressing Lower Body Maximal Assistance Toileting Maximal Assistance Instrumental Activities of Daily Living Assist Level Additional Information Meal/Beverage Prep Total Assistance Cleaning Total Assistance Laundry Total Assistance Medication Management with Strategies Mobility Assist Level Additional Information Bed Mobility Supine To Sit: Minimal Assistance Sit to Stand Contact Guard Assistance Stand to Sit Contact Guard Assistance Bed to Chair Contact Guard Assistance Bed To Chair Transfer Type: Stepping Bed To Chair Transfer Equipment: Wheeled Walker, Gait Belt Toilet/Commode Contact Guard Assistance Shower Functional Mobility Contact Guard Assistance Functional Mobility Device: Wheeled Walker CURRENT HOSPITAL COURSE Pt is 64 y/o male who presents to [facility] after elective TKA on 06/22 at [facility] through 06/29. Pt has diagnosis of Parkinson's and has multiple falls, and has some confusion at baseline. Pt presents with pain, weakness and increased need for assist with personal care. He would benefit from further therapy services to ensure safe d/c home as spouse is unable to physically assist him. Relevant Past Medical History: HTN, HFrEF, T2DM, Parkinson's disease, Possible stroke per daughter, L TKA 06/22/24; HOME LIVING Patient Lives With: Spouse (spouse is 80 year old; [address]ist floor apartment) Assistance Available: 24-Hour (from spouse, minimal physical assist) Entry To Home: No Stairs Number Of Stairs To Bed/Bath: 0 Tub/Shower Type: tub shower Laundry: same level Equipment Owned: Commode- 3 in 1, Extended Tub Bench, Walker- Wheeled (transport chair) PRIOR FUNCTIONAL LEVEL Required Assistance Assistance Required With: Medication Management, Self Care, Shopping Pt was GA with mobility; limited distances d/t pain in knee; pt would use cart in grocery store, no AD in house; Pt typically sleeps in recliner. He required assist w/ bathing and LB dressing; Spouse does most meals, laundry and cleaning; +driving despite family trying to get him to stop. Per daughter, pt and spouse resistant to AE and suggestions. Per chart, pt and spouse have hoarding tendencies so there is limited space in home. Spouse is 80 y/o and unable to physically assist pt. History of (more content not included)... Normal [facility] Basic Metabolic Profile (BMP )on 06-29-2024 BUN/CRE 22.3 RATIO High 10-20 [facility] Comment on above: Performed By: #### L 501.080 #### [facility] [address] [place], [address] CA,Total 9.4 mg/dL Normal 8.5-10.1 [facility] Comment on above: Performed By: #### L 501.080 #### [facility] [address] [facility] [address] Chloride [Moles/Vol] 105 mmol/L Normal 98-107 [facility] Comment on above: Performed By: #### L 501.080 #### [facility] [address] [facility] [address] CO2 [Moles/Vol] 28.0 mmol/L Normal 21.0-32.0 [facility] Comment on above: Performed By: #### L 501.080 #### [facility] [address] [facility] [address] Creatinine [Mass/Vol] 1.39 mg/dL High 0.70-1.30 [facility] Comment on above: Result Comment: The validity of the calculated GFR GFRAA in patients over 70 years has not been determined. Clinical correlation is essential. Performed By: #### L 501.080 #### [facility] [address] [place], [address] ECRCL 64.23 ml/min Normal [facility] Comment on above: Performed By: #### L 501.080 #### [facility] [address] [place], [address] EST GFR - AA 66 mL/min Normal >60 [facility] Comment on above: Result Comment: Afri can Indian GFR Calc Performed By: #### L 501.080 #### [facility] [address] [place], [address] GAP 5 Normal 5-15 [facility] Comment on above: Performed By: #### L 501.080 #### [facility] [address] [place], [address] GFR/1.73 sq M.predicted among non-blacks MDRD (S/P/Bld) [Vol rate/Area] 54 mL/min/{1.73_m2} Low >60 [facility] Comment on above: Result Comment: Non- GFR Calc Performed By: #### L 501.080 #### [facility] [address] [place], [address] Glucose [Mass/Vol] 156 mg/dL High 74-106 [facility] Comment on above: Result Comment: Fast ing Glucose result greater than or equal to 126 mg/dL suggests DIABETES MELLITUS per A.D.A. criteria. Performed By: #### L 501.080 #### [facility] [address] [place], [address] Potassium [Moles/Vol] 3.9 mmol/L Normal 3.5-5.1 [facility] Comment on above: Performed By: #### L 501.080 #### [facility] [address] [place], [place], [id number] Sodium [Moles/Vol] 138 mmol/L Normal 136-145 [facility] Comment on above: Performed By: #### L 501.080 #### [facility] [address] [place], [place], [address] Urea nitrogen [Mass/Vol] 31 mg/dL High 7-18 [facility] Comment on above: Performed By: #### L 501.080 #### [facility] [address] [place], [address] NURSING PROGon 06-29-2024 NURSING PROG HNO ID: [id number] Author: WILLIS TARIQ LPN Service: Nursing Author Type: LICENSED NURSE Type: Nursing Progress Note Filed: 06/29/2024 18:08 Note Text: Summary: Admission Patient arrived via cot with squad. Used walker assist x1 to transfer to chair. Family at bedside. Oriented to room. Admission assessment completed. Channel 95 on for patient to view. Assisted patient to bed. Call light within reach. Normal [facility] Basic Metabolic Profile (BMP )on 06-28-2024 BUN/CRE 20.5 RATIO High 10-20 [facility] Comment on above: Performed By: #### L 500.2500 #### [facility] [address] [place], [address] CA,Total 9.6 mg/dL Normal 8.5-10.1 [facility] Comment on above: Performed By: #### L 500.2500 #### [facility] [address] [place], [address] Chloride [Moles/Vol] 103 mmol/L Normal 98-107 [facility] Comment on above: Performed By: #### L 500.2500 #### [facility] [address] [place], [address] CO2 [Moles/Vol] 26.0 mmol/L Normal 21.0-32.0 [facility] Comment on above: Performed By: #### L 500.2500 #### [facility] [address] [place], [address] Creatinine [Mass/Vol] 1.51 mg/dL High 0.70-1.30 [facility] Comment on above: Result Comment: The validity of the calculated GFR GFRAA in patients over 70 years has not been determined. Clinical correlation is essential. Performed By: #### L 500.2500 #### [facility] [address] [place], [address] ECRCL 59.13 ml/min Normal [facility] Comment on above: Performed By: #### L 500.2500 #### [facility] [address] [place], [address] EST GFR - AA 60 mL/min Normal >60 [facility] Comment on above: Result Comment: Afri can Indian GFR Calc Performed By: #### L 500.2500 #### [facility] [address] [place], [address] GAP 6 Normal 5-15 [facility] Comment on above: Performed By: #### L 500.2500 #### [facility] [address] [place], [address] GFR/1.73 sq M.predicted among non-blacks MDRD (S/P/Bld) [Vol rate/Area] 49 mL/min/{1.73_m2} Low >60 [facility] Comment on above: Result Comment: Non- GFR Calc Performed By: #### L 500.2500 #### [facility] [address] [place], [address] Glucose [Mass/Vol] 152 mg/dL High 74-106 [facility] Comment on above: Result Comment: Fast ing Glucose result greater than or equal to 126 mg/dL suggests DIABETES MELLITUS per A.D.A. criteria. Performed By: #### L 500.2500 #### [facility] [address] [place], [address] Potassium [Moles/Vol] 4.0 mmol/L Normal 3.5-5.1 [facility] Comment on above: Result Comment: Mode rate Hemolysis, Result may be falsely increased. Performed By: #### L 500.2500 #### [facility] [address] [place], [address] Sodium [Moles/Vol] 135 mmol/L Low 136-145 [facility] Comment on above: Performed By: #### L 500.2500 #### [facility] [address] [place], [address] Urea nitrogen [Mass/Vol] 31 mg/dL High 7-18 [facility] Comment on above: Performed By: #### L 500.2500 #### [facility] [address] [place], [address] Basic Metabolic Profile (BMP )on 06-27-2024 BUN/CRE 20.9 RATIO High 10-20 [facility] Comment on above: Performed By: #### L 500.2500 #### [facility] [address] [place], [address] CA,Total 9.8 mg/dL Normal 8.5-10.1 [facility] Comment on above: Performed By: #### L 500.2500 #### [facility] [address] [place], [address] Chloride [Moles/Vol] 102 mmol/L Normal 98-107 [facility] Comment on above: Performed By: #### L 500.2500 #### [facility] [address] [place], [address] CO2 [Moles/Vol] 24.0 mmol/L Normal 21.0-32.0 [facility] Comment on above: Performed By: #### L 500.2500 #### [facility] [address] [place], [address] Creatinine [Mass/Vol] 1.48 mg/dL High 0.70-1.30 [facility] Comment on above: Result Comment: The validity of the calculated GFR GFRAA in patients over 70 years has not been determined. Clinical correlation is essential. Performed By: #### L 500.2500 #### [facility] [address] [place], [address] ECRCL 60.33 ml/min Normal [facility] Comment on above: Performed By: #### L 500.2500 #### [facility] [address] [place], [address] EST GFR - AA 61 mL/min Normal >60 [facility] Comment on above: Result Comment: Afri can Indian GFR Calc Performed By: #### L 500.2500 #### [facility] [address] [place], [address] GAP 10 Normal 5-15 [facility] Comment on above: Performed By: #### L 500.2500 #### [facility] [address] [place], [address] GFR/1.73 sq M.predicted among non-blacks MDRD (S/P/Bld) [Vol rate/Area] 51 mL/min/{1.73_m2} Low >60 [facility] Comment on above: Result Comment: Non- GFR Calc Performed By: #### L 500.2500 #### [facility] [address] [place], [address] Glucose [Mass/Vol] 139 mg/dL High 74-106 [facility] Comment on above: Result Comment: Fast ing Glucose result greater than or equal to 126 mg/dL suggests DIABETES MELLITUS per A.D.A. criteria. Performed By: #### L 500.2500 #### [facility] [address] [place], [address] Potassium [Moles/Vol] 4.1 mmol/L Normal 3.5-5.1 [facility] Comment on above: Performed By: #### L 500.2500 #### [facility] [address] [place], [address] Sodium [Moles/Vol] 136 mmol/L Normal 136-145 [facility] Comment on above: Performed By: #### L 500.2500 #### [facility] [address] [place], [address] Urea nitrogen [Mass/Vol] 31 mg/dL High 7-18 [facility] Comment on above: Performed By: #### L 500.2500 #### [facility] [address] [place], [address] Basic Metabolic Profile (BMP )on 06-26-2024 BUN/CRE 19.9 RATIO Normal 10-20 [facility] Comment on above: Performed By: #### L 500.2500 ####[facility] [address] [place], [address] CA,Total 9.4 mg/dL Normal 8.5-10.1 [facility] Comment on above: Performed By: #### L 500.2500 ####[facility] [address] [place], [address] Chloride [Moles/Vol] 101 mmol/L Normal 98-107 [facility] Comment on above: Performed By: #### L 500.2500 ####[facility] [address] [place], [address] CO2 [Moles/Vol] 26.0 mmol/L Normal 21.0-32.0 [facility] Comment on above: Performed By: #### L 500.2500 ####[facility] [address] [place], [address] Creatinine [Mass/Vol] 1.46 mg/dL High 0.70-1.30 [facility] Comment on above: Result Comment: The validity of the calculated GFR GFRAA in patients over 70 years has not been determined. Clinical correlation is essential. Performed By: #### L 500.2500 ####[facility] [address] [place], [address] ECRCL 61.15 ml/min Normal [facility] Comment on above: Performed By: #### L 500.2500 ####[facility] [address] [place], [address] EST GFR - AA 62 mL/min Normal >60 [facility] Comment on above: Result Comment: Afri can Indian GFR Calc Performed By: #### L 500.2500 ####[facility] [address] [place], [address] GAP 8 Normal 5-15 [facility] Comment on above: Performed By: #### L 500.2500 ####[facility] [address] [place], [address] GFR/1.73 sq M.predicted among non-blacks MDRD (S/P/Bld) [Vol rate/Area] 51 mL/min/{1.73_m2} Low >60 [facility] Comment on above: Result Comment: Non- GFR Calc Performed By: #### L 500.2500 ####[facility] [address] [place], [address] Glucose [Mass/Vol] 138 mg/dL High 74-106 [facility] Comment on above: Result Comment: Fast ing Glucose result greater than or equal to 126 mg/dL suggests DIABETES MELLITUS per A.D.A. criteria. Performed By: #### L 500.2500 ####[facility] [address] [place], [address] Potassium [Moles/Vol] 4.0 mmol/L Normal 3.5-5.1 [facility] Comment on above: Performed By: #### L 500.2500 ####[facility] [address] [place], [address] Sodium [Moles/Vol] 135 mmol/L Low 136-145 [facility] Comment on above: Performed By: #### L 500.2500 ####[facility] [address] [place], [address] Urea nitrogen [Mass/Vol] 29 mg/dL High 7-18 [facility] Comment on above: Performed By: #### L 500.2500 ####[facility] [address] [place], [address] Basic Metabolic Profile (BMP )on 06-25-2024 BUN/CRE 22.0 RATIO High 10-20 [facility] Comment on above: Performed By: #### L 500.2500 #### [facility] [address] [place], [address] CA,Total 9.6 mg/dL Normal 8.5-10.1 [facility] Comment on above: Performed By: #### L 500.2500 #### [facility] [address] [place], [address] Chloride [Moles/Vol] 101 mmol/L Normal 98-107 [facility] Comment on above: Performed By: #### L 500.2500 #### [facility] [address] [place], [address] CO2 [Moles/Vol] 28.0 mmol/L Normal 21.0-32.0 [facility] Comment on above: Performed By: #### L 500.2500 #### [facility] [address] [place], [address] Creatinine [Mass/Vol] 1.59 mg/dL High 0.70-1.30 [facility] Comment on above: Result Comment: The validity of the calculated GFR GFRAA in patients over 70 years has not been determined. Clinical correlation is essential. Performed By: #### L 500.2500 #### [facility] [address] [place], [address] ECRCL 56.15 ml/min Normal [facility] Comment on above: Performed By: #### L 500.2500 #### [facility] [address] [place], [address] EST GFR - AA 56 mL/min Low >60 [facility] Comment on above: Result Comment: Afri can Indian GFR Calc Performed By: #### L 500.2500 #### [facility] [address] [place], [address] GAP 5 Normal 5-15 [facility] Comment on above: Performed By: #### L 500.2500 #### [facility] [address] [place], [address] GFR/1.73 sq M.predicted among non-blacks MDRD (S/P/Bld) [Vol rate/Area] 47 mL/min/{1.73_m2} Low >60 [facility] Comment on above: Result Comment: Non- GFR Calc Performed By: #### L 500.2500 #### [facility] [address] [place], [address] Glucose [Mass/Vol] 119 mg/dL High 74-106 [facility] Comment on above: Result Comment: Fast ing Glucose result from 100 to 125 mg/dL suggests IMPAIRED HOMEOSTASIS per A.D.A. criteria. Performed By: #### L 500.2500 #### [facility] [address] [place], [address] Potassium [Moles/Vol] 3.9 mmol/L Normal 3.5-5.1 [facility] Comment on above: Performed By: #### L 500.2500 #### [facility] [address] [place], [address] Sodium [Moles/Vol] 134 mmol/L Low 136-145 [facility] Comment on above: Performed By: #### L 500.2500 #### [facility] [address] [place], [address] Urea nitrogen [Mass/Vol] 35 mg/dL High 7-18 [facility] Comment on above: Performed By: #### L 500.2500 #### [facility] [address] [place], [address] CBC-Complete Blood Cnt No Di ffon 06-25-2024 Erythrocyte distribution width (RBC) [Ratio] 12.6 % Normal 11.6-14.6 [facility] Comment on above: Performed By: #### L 500.2500 #### [facility] [address] [place], [address] Hematocrit (Bld) [Volume fraction] 32.7 % Low 40-54 [facility] Comment on above: Performed By: #### L 500.2500 #### [facility] [address] [place], [address] Hemoglobin (Bld) [Mass/Vol] 10.5 g/dL Low 13.0-16.5 [facility] Comment on above: Performed By: #### L 500.2500 #### [facility] [address] [place], [address] MCH (RBC) [Entitic mass] 30.5 pg Normal 27.0-32.0 [facility] Comment on above: Performed By: #### L 500.2500 #### [facility] [address] [place], [address] MCHC (RBC) [Mass/Vol] 32.1 g/dL Normal 32-36 [facility] Comment on above: Performed By: #### L 500.2500 #### [facility] [address] [place], [address] MCV (RBC) [Entitic vol] 95.1 fL High 80-94 [facility] Comment on above: Performed By: #### L 500.2500 #### [facility] [address] [place], [address] Platelet mean volume (Bld) [Entitic vol] 9.2 fL Normal 6.2-12.0 [facility] Comment on above: Performed By: #### L 500.2500 #### [facility] [address] [place], [address] Platelets (Bld) [#/Vol] 268 10*3/uL Normal 150-450 [facility] Comment on above: Performed By: #### L 500.2500 #### [facility] [address] [place], [address] RBC (Bld) [#/Vol] 3.44 10*6/uL Low 4.6-6.2 [facility] Comment on above: Performed By: #### L 500.2500 #### [facility] [address] [place], [address] RDW SD 43.9 fl Normal 35.1-43.9 [facility] Comment on above: Performed By: #### L 500.2500 #### [facility] [address] [place], [address] WBC (Bld) [#/Vol] 12.9 10*3/uL High 4.4-11.0 [facility] Comment on above: Performed By: #### L 500.2500 #### [facility] [address] [place], [address] Basic Metabolic Profile (BMP )on 06-24-2024 BUN/CRE 19.0 RATIO Normal - [facility] Comment on above: Performed By: #### L 501.080 #### [facility] [address] [place], [address] CA,Total 9.6 mg/dL Normal 8.5-10.1 [facility] Comment on above: Performed By: #### L 501.080 #### [facility] [address] [place], [address] Chloride [Moles/Vol] 103 mmol/L Normal 98-107 [facility] Comment on above: Performed By: #### L 501.080 #### [facility] [address] [place], [address] CO2 [Moles/Vol] 23.0 mmol/L Normal 21.0-32.0 [facility] Comment on above: Performed By: #### L 501.080 #### [facility] [address] [place], [address] Creatinine [Mass/Vol] 1.79 mg/dL High 0.70-1.30 [facility] Comment on above: Result Comment: The validity of the calculated GFR GFRAA in patients over 70 years has not been determined. Clinical correlation is essential. Performed By: #### L 501.080 #### [facility] [facility] [address] [place], [address] ECRCL 49.88 ml/min Normal [facility] Comment on above: Performed By: #### L 501.080 #### [facility] [address] [place], [address] EST GFR - AA 49 mL/min Low >60 [facility] Comment on above: Result Comment: Afri can Indian GFR Calc Performed By: #### L 501.080 #### [facility] [address] [place], [address] GAP 11 Normal 5-15 [facility] Comment on above: Performed By: #### L 501.080 #### [facility] [address] [place], [address] GFR/1.73 sq M.predicted among non-blacks MDRD (S/P/Bld) [Vol rate/Area] 41 mL/min/{1.73_m2} Low >60 [facility] Comment on above: Result Comment: Non- GFR Calc Performed By: #### L 501.080 #### [facility] [address] [place], [address] Glucose [Mass/Vol] 119 mg/dL High 74-106 [facility] Comment on above: Result Comment: Fast ing Glucose result from 100 to 125 mg/dL suggests IMPAIRED HOMEOSTASIS per A.D.A. criteria. Performed By: #### L 501.080 #### [facility] [address] [place], [address] Potassium [Moles/Vol] 3.9 mmol/L Normal 3.5-5.1 [facility] Comment on above: Performed By: #### L 501.080 #### [facility] [address] [place], [address] Sodium [Moles/Vol] 137 mmol/L Normal 136-145 [facility] Comment on above: Performed By: #### L 501.080 #### [facility] [address] [place], [address] Urea nitrogen [Mass/Vol] 34 mg/dL High 7-18 [facility] Comment on above: Performed By: #### L 501.080 #### [facility] [address] [place], [address] CBC-Complete Blood Cnt No Di ffon 06-24-2024 Erythrocyte distribution width (RBC) [Ratio] 12.5 % Normal 11.6-14.6 [facility] Comment on above: Performed By: #### L 100.0500 ####[facility] [address] [place], [address] Hematocrit (Bld) [Volume fraction] 34.9 % Low 40-54 [facility] Comment on above: Performed By: #### L 100.0500 ####[facility] [address] [place], [address] Hemoglobin (Bld) [Mass/Vol] 11.4 g/dL Low 13.0-16.5 [facility] Comment on above: Performed By: #### L 100.0500 ####[facility] [address] [place], [address] MCH (RBC) [Entitic mass] 30.2 pg Normal 27.0-32.0 [facility] Comment on above: Performed By: #### L 100.0500 ####[facility] [address] [place], [address] MCHC (RBC) [Mass/Vol] 32.7 g/dL Normal 32-36 [facility] Comment on above: Performed By: #### L 100.0500 ####[facility] [address] [place], [address] MCV (RBC) [Entitic vol] 92.6 fL Normal 80-94 [facility] Comment on above: Performed By: #### L 100.0500 ####[facility] [address] [place], [address] Platelet mean volume (Bld) [Entitic vol] 9.2 fL Normal 6.2-12.0 [facility] Comment on above: Performed By: #### L 100.0500 ####[facility] [address] [place], [address] Platelets (Bld) [#/Vol] 323 10*3/uL Normal 150-450 [facility] Comment on above: Performed By: #### L 100.0500 ####[facility] [address] [place], [address] RBC (Bld) [#/Vol] 3.77 10*6/uL Low 4.6-6.2 [facility] Comment on above: Performed By: #### L 100.0500 ####[facility] [address] [place], [address] RDW SD 42.5 fl Normal 35.1-43.9 [facility] Comment on above: Performed By: #### L 100.0500 ####[facility] [address] [place], [address] WBC (Bld) [#/Vol] 17.1 10*3/uL High 4.4-11.0 [facility] Comment on above: Performed By: #### L 100.0500 ####[facility] [address] [place], [address] Discharge Instructionon 06-06 Discharge Instruction [facility] Medical Records Department [address] [place] [address] Instructions for Home/Discharge Instructions 06/24/24 1429 MR#: [id number] Acct: [id number] Name: NICK SAN Rep #: [id number] : 1960 64 From: Mac Ge DO PCP: Status:ADM IN Discharge Instructions Diet Discharge Diet: No restrictions Activity Weight Bearing Status: Full weight bearing Dressing / Incision Call your doctor if you observe: Shortness of breath and Chest pain Additional Dressing/Incision Instructions:: Ice and elevate lower extremities 2 weeks while not ambulating. Ambulation is encouraged. Weight bearing as tolerated. Use assistive devise for stability. Encourage FULL knee extension and flexion 1 time EVERY time you get up and down and MULTIPLE times per day. No showering until 72 hours after surgery. Begin showering postop day #3. Remove the dressing prior to shower and gently wash with warm water and antibacterial soap then pat dry and place abdominal pad (or plain gauze) and MIRANDA hose over top. This is to be done daily. Do not submerge for 3 weeks. If not showering daily after the initial 72 hours then you must clean incision and change dressing daily. Do not allow animals near the incision area. Keep clean. Follow anti-coagulation recommendations as prescribed. Do not take any NSAIDs while on blood thinner. Do not take any additional narcotic pain medication other than what was prescribed on your surgery day without discussing with physician. Narcotic medication can be addictive. Do not drink alcohol while taking narcotics. Supplement narcotic prescription with acetaminophen 1000 mg 4 times a day. Start physical therapy. If you are not currently scheduled for physical therapy or you are unsure of appointment time please call office [facility] to arrange. Call Dr. Ge with any concerns. Follow Up Care Please Follow Up With: Mac Ge DO When: 2 weeks Test Results: Test results from this visit will be discussed in further detail at your follow-up appointment, if applicable. Discharge Plan Admission Admit Date/Time: 06/22/24 13:12 Primary Reason for Your Visit: left total knee Attending Provider: Mac Ge Consulting Providers: Mishel Vivar Discharge Orders/Prescriptions Prescriptions: New gabapentin 100 mg Capsule 100 mg PO TIDCM PRN (Reason: foot restlessness/itching/burn) Qty: 60 0RF oxycodone 5 mg Tablet 5 - 10 mg PO Q4H PRN PRN (Reason: Pain Score 4-10) 7 Days Qty: 60 0RF Eliquis 5 mg Tablet 2.5 mg PO BID Qty: 28 0RF acetaminophen 500 mg Tablet 1,000 mg PO Q8 Qty: 90 0RF Continued aspirin 81 mg tablet,delayed release (DR/EC) 81 mg PO DAILY spironolactone 25 mg tablet 25 mg PO QDAY dapagliflozin propanediol 10 mg tablet 10 mg PO DAILY carbidopa-levodopa 25-100 mg tablet 1 tab PO TID atorvastatin [Lipitor] 10 mg tablet 20 mg PO QHS tamsulosin 0.4 mg capsule 0.4 mg PO QHS Qty: 90 0RF citalopram 40 mg tablet 40 mg PO DAILY Qty: 90 1RF amlodipine 10 mg tablet 10 mg PO DAILY Qty: 90 1RF clonidine HCl 0.2 mg tablet 0.2 mg PO BID Qty: 180 1RF lisinopril-hydrochlorothiaz james 20-12.5 mg tablet 1 tab PO DAILY Qty: 90 0RF Referrals / Follow Up: Amaya No MD [Med Staff - Active Staff] - 06/24/24 1436 Mac Ge DO CC: Dr. Mishel Vivar MD Signed Normal [facility] Basic Metabolic Profile (BMP )on 06-23-2024 BUN/CRE 18.1 RATIO Normal 10-20 [facility] Comment on above: Performed By: #### L 100.0500, L500.2500 ####[facility] [address] [place], [address] CA,Total 9.8 mg/dL Normal 8.5-10.1 [facility] Comment on above: Performed By: #### L 100.0500, L500.2500 ####[facility] [address] [place], [address] Chloride [Moles/Vol] 102 mmol/L Normal 98-107 [facility] Comment on above: Performed By: #### L 100.0500, L500.2500 ####[facility] [address] [place], [address] CO2 [Moles/Vol] 24.0 mmol/L Normal 21.0-32.0 [facility] Comment on above: Performed By: #### L 100.0500, L500.2500 ####[facility] [address] [place], [address] Creatinine [Mass/Vol] 1.82 mg/dL High 0.70-1.30 [facility] Comment on above: Result Comment: The validity of the calculated GFR GFRAA in patients over 70 years has not been determined. Clinical correlation is essential. Performed By: #### L 100.0500, L500.2500 ####[facility] [address] [place], [address] ECRCL 49.06 ml/min Normal [facility] Comment on above: Performed By: #### L 100.0500, L500.2500 ####[facility] [address] [place], [address] EST GFR - AA 48 mL/min Low >60 [facility] Comment on above: Result Comment: Afri can Indian GFR Calc Performed By: #### L 100.0500, L500.2500 ####[facility] [address] [place], [address] GAP 9 Normal 5-15 [facility] Comment on above: Performed By: #### L 100.0500, L500.2500 ####[facility] [address] [place], [address] GFR/1.73 sq M.predicted among non-blacks MDRD (S/P/Bld) [Vol rate/Area] 40 mL/min/{1.73_m2} Low >60 [facility] Comment on above: Result Comment: Non- GFR Calc Performed By: #### L 100.0500, L500.2500 ####[facility] [address] [place], [address] Glucose [Mass/Vol] 180 mg/dL High 74-106 [facility] Comment on above: Result Comment: Fast ing Glucose result greater than or equal to 126 mg/dL suggests DIABETES MELLITUS per A.D.A. criteria. Performed By: #### L 100.0500, L500.2500 ####[place] [facility] [address] [place], [address] Potassium [Moles/Vol] 4.6 mmol/L Normal 3.5-5.1 [facility] Comment on above: Performed By: #### L 100.0500, L500.2500 ####[facility] [address] [place], [address] Sodium [Moles/Vol] 135 mmol/L Low 136-145 [facility] Comment on above: Performed By: #### L 100.0500, L500.2500 ####[facility] [address] [place], [address] Urea nitrogen [Mass/Vol] 33 mg/dL High 7-18 [facility] Comment on above: Performed By: #### L 100.0500, L500.2500 ####[facility] [address] [place], [address] CBC-Complete Blood Cnt No Di ffon 06-23-2024 Erythrocyte distribution width (RBC) [Ratio] 12.3 % Normal 11.6-14.6 [facility] Comment on above: Performed By: #### L 100.0500, L500.2500 ####[facility] [address] [place], [address] Hematocrit (Bld) [Volume fraction] 37.1 % Low 40-54 [facility] Comment on above: Performed By: #### L 100.0500, L500.2500 ####[facility] [address] [place], [address] Hemoglobin (Bld) [Mass/Vol] 12.1 g/dL Low 13.0-16.5 [facility] Comment on above: Performed By: #### L 100.0500, L500.2500 ####[facility] [address] [place], [address] MCH (RBC) [Entitic mass] 30.3 pg Normal 27.0-32.0 [facility] Comment on above: Performed By: #### L 100.0500, L500.2500 ####[facility] [address] [place], [address] MCHC (RBC) [Mass/Vol] 32.6 g/dL Normal 32-36 [facility] Comment on above: Performed By: #### L 100.0500, L500.2500 ####[facility] [address] [place], [address] MCV (RBC) [Entitic vol] 93.0 fL Normal 80-94 [facility] Comment on above: Performed By: #### L 100.0500, L500.2500 ####[facility] [address] [place], [address] Platelet mean volume (Bld) [Entitic vol] 9.3 fL Normal 6.2-12.0 [facility] Comment on above: Performed By: #### L 100.0500, L500.2500 ####[facility] [address] [place], [address] Platelets (Bld) [#/Vol] 328 10*3/uL Normal 150-450 [facility] Comment on above: Performed By: #### L 100.0500, L500.2500 ####[facility] [address] [place], [address] RBC (Bld) [#/Vol] 3.99 10*6/uL Low 4.6-6.2 [facility] Comment on above: Performed By: #### L 100.0500, L500.2500 ####[facility] [address] [place], [address] RDW SD 42.3 fl Normal 35.1-43.9 [facility] Comment on above: Performed By: #### L 100.0500, L500.2500 ####[facility] [address] [place], [place], [address] WBC (Bld) [#/Vol] 18.3 10*3/uL High 4.4-11.0 [facility] Comment on above: Performed By: #### L 100.0500, L500.2500 ####[facility] [address] [place], [place], [address] Bedside Glucoseon 06-22-2024 FINGERSTICK GLU 154 mg/dL High 74-106 [facility] Comment on above: Result Comment: DEXTER PINEDA OF PATIENT CARE PER NURSING PROTOCOL Performed By: #### L 501.080 ####[facility] [address] [place], [place], [address] Decalcification bone/plaqueo n 06-22-2024 Decalcification bone/plaque Patient Age/Sex Location Account Attending Physician NICK SAN 64/M MS3 [id number] Dr. Alondra Zelaya, DO Specimen: [id number] Received: 06/23/24 Status: SOBIA Drake Num: [id number] Spec Type: TOTAL KNEE Subm Dr: Dr. Mac Ge [facility] OPERATION: Left total knee replacement robotic arm assist PRE-OP DIAGNOSIS: Bilateral primary osteoarthritis of knee TISSUE SUBMITTED: Bone and soft tissue left knee MICROSCOPIC DIAGNOSIS Bone and tissue of left knee, total knee resection: Severe degenerative joint disease. AM: 06/29/2024 MICROSCOPIC DESCRIPTION Slides are reviewed. GROSS DESCRIPTION Received is one container designated bone and soft tissue left knee. The specimen consists of multiple fragments of mcconnell-yellow bone measuring in aggregate 11.0 x 10.0 x 3.0 cm. No soft tissue is identified. A number of bony fragments contain articular surfaces consistent with tibial plateau and femoral condyle and displaying prominent osteophyte formation, eburnation and bone erosion. Conservation Enforcement Officer sections are submitted in one cassette after decalcification. / 06/23/2024 TC:5 CPT: 20329, 95272 Patient Age/Sex Location Account Attending Physician NICK SAN 64/M MS3 [id number] Dr. Alondra Zelaya, DO Signed (signature on file) Dr. Martín Mcgarry DO 06/29/24 1237 Normal [facility] Comment on above: Performed By: #### P DEC ####[facility] [address] [facility] [place], [place], [id number] Knee 1 or 2 Views 06-22-20 Knee 1 or 2 Views [facility] Services [address] [place], [place] [address] Knee 1 or 2 Views MR#: [id number] Acct: [id number] Name: NICK SAN Rep #: [id number] : 1960 M 64 From: Min Zelaya MD PCP: Status: ADM IN Study: Knee 1 or 2 Views Date of Exam: 06/22/24 Exam# [id number] Ordering Dr: Mac Ge DO [id number] STUDY: X-RAY - LEFT KNEE REASON FOR EXAM: Male, 64 years old. Post op -- AP and Lateral xray of operative knee in PACU TECHNIQUE: 2 views of the left knee. COMPARISON: Left knee radiographs dated 11/11/2023. FINDINGS: There are new postoperative changes related to left total knee arthroplasty with patellar resurfacing. There is a vertical staple line along the anterior aspect of the knee. There is gas in the patellofemoral joint recess and anterior soft tissues, compatible with recent surgery. The orthopedic hardware components are intact. There is no periprosthetic fracture. Normal proximal tibiofibular articulation. There are atherosclerotic calcifications. RAD/Knee 1 or 2 Views IMPRESSION: New postoperative changes related to left total knee arthroplasty. Electronically Signed: Min Zelaya MD at 13:36 EDT Reading Location ID and State: [facility] / [place] , Service support , CC: Dr. Mac Ge DO Corporate Intern: Signed [facility] MR/POSTOP.[facility] 06-22-2024 MR/POSTOP.[facility] Medical Records Department [address] [place] [address] Anesthesia Postop Eval I 06/22/248 MR#: [id number] Acct: [id number] Name: NICK SAN Rep #: [id number] : 1960 64 From: Noah Brown MD PCP: Status:ADM IN Y Race: C Location: [place] [address] Anesthesia: Postop Eval I Current Vital Signs Temperature: 97.4 F Pulse Rate: 90 Blood Pressure: 130/63 Respiratory Rate: 16 Pulse Ox: 95 Assessment Airway patent: Yes Spontaneous unlabored respirations: Yes nausea: No Vomiting: No Anesthesia Complication: No Fluid Hydration Crystalloid volume administer (ml): 1,000 Total IV fluid infused: 1,000 Progress Note Anesthesia document: Postop Eval 1 completed: Yes 06/22/24 1319 Date Noah Brown MD [facility] Signature: Date CC: Signed Normal [facility] MR/XDWQORIN8to 06-22-2024 MR/POSTOPAN2 [facility] Medical Records Department [address] [place] [address] Anesthesia Postop Eval II 06/22/24 1320 MR#: [id number] Acct: [id number] Name: NICK SAN Rep #: [id number] : 1960 64 From: Noah Brown MD PCP: Status:ADM IN Y Race: C [facility] Postop Eval I Sum Postop Eval Completion status Anesthesia document: Postop Eval 1 completed: Yes Anesthesia Postop Eval I Summary Anesthesia Postop Eval I Summary: Anesthesia Postop Eval I: Assessment Summary Airway patent Yes 06/22/24 13:19 Spontaneous unlabored Yes 06/22/24 13:19 respirations Mental status nausea No 06/22/24 13:19 Vomiting No 06/22/24 13:19 Anesthesia Postop Eval I: Fluid Summary Crystalloid volume administer 1,000 06/22/24 13:19 (ml) Colloids volume administered ( ml) Blood Product volume administered (ml) Total IV fluid infused 1,000 06/22/24 13:19 Anesthesia Postop Eval I: Summary Notes Anesthesia Complication No 06/22/24 13:19 Anesthesia Complication Comment: Post-operative progress note Anesthesia: Postop Eval II Evaluation Mental status: Awake Pain Level: 0 nausea: No Vomiting: No 06/22/24 1320 Date Noah Kumar Signature: Date CC: Signed Normal [facility] Operative Reporton 4 Operative Report [facility] Medical Records Department [address] [place] [address] Operative Report 06/22/24 1317 MR#: [id number] Acct: [id number] Name: NICK SAN Rep #: [id number] : 1960 64 From: Mac Ge DO PCP: Status:ADM IN Location: [place] [address] Operative Report Date of Procedure: 06/22/24 Preoperative diagnosis: Left knee DJD Postoperative diagnosis: Same Procedure: Left total knee arthroplasty CT guided Robotic Assisted Implant: [place] Star triathlon press fit, femoral component size5, tibial baseplate size 5, asymmetric patella size 35, polyethylene X3 size 9 CS Anesthesia: General With adductor canal block Tourniquet time: 12 minutes at 300 mmHg Complications: None Condition: Stable to PACU Estimated blood loss: 200 cc Car Shagger Kate Atkinson. My physician investment sales assistant was a vital part of this case. He was important in appropriate retraction during the case, and protection of soft tissues during procedure. His intimate knowledge of the case and my steps aided in safe and expedient completion of the procedure as well as appropriate position of the extremity during the case. He was also vital in assisting with closure under my direct supervision. Indication for procedure: This is a 64-year-old male with long standing degenerative joint disease of the knee who has failed conservative treatment and wished to proceed with elective total knee arthroplasty. Risk benefits and alternatives were reviewed including; risk of bleeding, infection, nerve artery and tissue damage, continued pain, postoperative stiffness, venous thromboembolism, need for postoperative rehabilitation, mechanical feel to the knee, and expected postoperative course. The pre- operative CT and templating was performed with component sizing. Procedure: The patient was met in the preoperative holding area. The operative extremity was identified by both patient and physician and was marked. Patient was met by anesthesia. An adductor canal block was placed by anesthesia postoperatively the patient was brought back to the operating room on a wheeled cart and transferred to the operating table in the supine position. Anesthesia was started. A well-padded tourniquet was placed on the operative extremity. The patient was prepped and draped in the usual sterile fashion. A timeout was called to ensure the proper patient procedure and extremity were being contemplated. An esmarch was used to exsanguinate the extremity. The tourniquet was inflated. A 10 blade scalpel was used to make a midline incision down through the skin and subcutaneous tissue. Skin retractors placed. Bovie and Aquamantis were used to perform meticulous hemostasis. full-thickness flaps were elevated medial and lateral along the joint capsule. A deep blade scalpel was used to perform a medial parapatellar arthrotomy. The knee was brought to full extension. A bovie was used to release the soft tissues off the most proximal aspect of the medial tibial plateau, a three-quarter inch curved osteotome was also used in this process. The infrapatellar fat pad was excised. The suprapatellar fat pad was excised partially anteriorolateraly and portion the anterioromedial pad was elevated from the femur. At this point our intra-articular femoral array was placed at a 45 degree angle proximal and posterior to the medial epicondyle. femoral checkpoint was placed at this time. Our tibial array was placed partially intra incisional 1 stab incision was made for the inferior pin with a 15 blade scaple, and pins were placed and attached to the tibial array , tibial checkpoint was placed in the proximal tibial metaphysis. Tourniquet was let down. At this point registration dow were taken throughout the knee . Once the knee was registered we then tensioned the medial and lateral ligaments in extension and 90 degrees of flexion. We then used these numbers to adjust our components within parameters to balance the knee in both flexion and extension once this was done on our monitor we then proceeded with using the robotic arm to make our tibial plateau cut, anterior and posterior chamfer and distal femur cuts. we removed the cut fragments with the use of a bovie and Marianela, we did use a lamina supervisor engraving to insure we visualized and removed all posterior osteophytes and at this time also used the Aquamantis on the posterior joint capsule. we then trialed and achieved the desired plan with a well-balanced knee. we used the green probe to king the corresponding tibial rotation based on our CT template. Lug holes were drilled in the femur the tibia preparation was completed with the appropriate sized base plate pinned based on previous rotation king. An appropriate sized fin punch was used on the tibia and 4 corner drill was used for the press fit component and the patella was prepared by first using a caliper t (more content not included)... Normal [facility] Type AND Screen - PAT ONLYon 06-22-2024 Ab SCREEN GEL Negative Normal [facility] Comment on above: Order Comment: REDRA W. PREVIOUS SPECIMEN REJECTED DUE TOFENWAL ILLEGIBLE. 06/22/24 [id number] KNEE REPLACEMENT Performed By: #### B TSPAT ####[facility] [address] [place], [place], [id number] ABO and Rh group Nom (Bld) Blood group O Rh(D) positive Normal [facility] Comment on above: Order Comment: REDRA W. PREVIOUS SPECIMEN REJECTED DUE TOFENWAL ILLEGIBLE. 06/22/24 [id number] KNEE REPLACEMENT Performed By: #### B TSPAT ####[facility] [address] [place], [place], [address] A1 CELL Not performed [facility] Comment on above: Order Comment: Surge ry Date: 06/12/24Reason for Laboratory Test [id number] TOTAL KNEE, ROBOT ASSISTED Result Comment: This specimen has been REJECTED due to Laboratory criteria: PEN USED SMEARED FENWAL WAS ILLEGIBLE. BRI IN has been notified of need of recollection. 06/22/24 1004 Herlinda Clapper Performed By: #### B TSPAT ####[facility] [address] [place], [place], [address] Ab SCREEN GEL Not performed [facility] Comment on above: Order Comment: Surge ry Date: 06/12/24Reason for Laboratory Test [id number] TOTAL KNEE, ROBOT ASSISTED Result Comment: This specimen has been REJECTED due to Laboratory criteria: PEN USED SMEARED FENWAL WAS ILLEGIBLE. BRI IN AC has been notified of need of recollection. 06/22/24 1004 Herlinda Clapper Performed By: #### B TSPAT ####[facility] [address] [place], [address] ABO and Rh group Nom (Bld) Test Not Performed Normal [facility] Comment on above: Order Comment: Surge ry Date: 06/12/24Reason for Laboratory Test [id number] TOTAL KNEE, ROBOT ASSISTED Result Comment: This specimen has been REJECTED due to Laboratory criteria: PEN USED SMEARED FENWAL WAS ILLEGIBLE. BRI IN AC has been notified of need of recollection. 06/22/24 1004 Herlinda Clapper Performed By: #### B TSPAT ####[facility] [address] [place], [place], [address] ANTI A Not performed Normal [facility] Comment on above: Order Comment: Surge ry Date: 06/12/24Reason for Laboratory Test [id number] TOTAL KNEE, ROBOT ASSISTED Result Comment: This specimen has been REJECTED due to Laboratory criteria: PEN USED SMEARED FENWAL WAS ILLEGIBLE. BRI IN AC has been notified of need of recollection. 06/22/24 1004 Herlinda Clapper Performed By: #### B TSPAT ####[facility] [address] [place], [place], [address] ANTI B Not performed Normal [facility] Comment on above: Order Comment: Surge ry Date: 06/12/24Reason for Laboratory Test [id number] TOTAL KNEE, ROBOT ASSISTED Result Comment: This specimen has been REJECTED due to Laboratory criteria: PEN USED SMEARED FENWAL WAS ILLEGIBLE. BRI IN AC has been notified of need of recollection. 06/22/24 1004 Herlinda Clapper Performed By: #### B TSPAT ####[facility] [address] [place], [place], [address] ANTI D Not performed Normal [facility] Comment on above: Order Comment: Surge ry Date: 06/12/24Reason for Laboratory Test [id number] TOTAL KNEE, ROBOT ASSISTED Result Comment: This specimen has been REJECTED due to Laboratory criteria: PEN USED SMEARED FENWAL WAS ILLEGIBLE. BRI IN AC has been notified of need of recollection. 06/22/24 1004 Herlinda Clapper Performed By: #### B TSPAT ####[facility] [address] [place], [address] B CELLS Not performed Normal [facility] Comment on above: Order Comment: Surge ry Date: 06/12/24Reason for Laboratory Test [id number] TOTAL KNEE, ROBOT ASSISTED Result Comment: This specimen has been REJECTED due to Laboratory criteria: PEN USED SMEARED FENWAL WAS ILLEGIBLE. BRI IN AC has been notified of need of recollection. 06/22/24 1004 Herlinda Clapper Performed By: #### B TSPAT ####[facility] [address] [place], [place], [address] BLD TYPE RECHEK Not performed Normal [facility] Comment on above: Order Comment: Surge ry Date: 06/12/24Reason for Laboratory Test [id number] TOTAL KNEE, ROBOT ASSISTED Result Comment: This specimen has been REJECTED due to Laboratory criteria: PEN USED SMEARED FENWAL WAS ILLEGIBLE. BRI IN AC has been notified of need of recollection. 06/22/24 1004 Herlinda Clapper Performed By: #### B TSPAT ####[facility] [address] [place], [place], [address] SPECT Heart for infarct W Tc -99m PYP Garret 04-19-2024 * * *Final Report* * * DATE OF EXAM: Apr 19 2024 10:45AM N 0847 - [place] CARDIAC AMYLOID SPECT/CT / PROCEDURE REASON: Heart failure with mildly reduced ejection fraction (HFmrEF) ([facility]) * * * * Physician Interpretation * * * * NM CTA Report: [facility] Date of service: 04/19/2024 10:10:48 AM CTA interpreting physician: Henry Knight MD PATIENT: Name: NICK SAN Age: 64 years Gender: M 1. Incidental Findings from limited non-diagnostic CTAC: - No distinct coronary calcifications. * * * Final * * * Patient: Name: NICK SAN Age: 64 years Gender: M CONCLUSIONS: 1. Not Consistent with TTR amyloidosis * Please note that a negative or mildly positive study does not exclude AL amyloid. In addition, equivocal results could represent AL amyloid or early ATTR. We suggest concomitant workup of AL amyloid with laboratory testing and pathologic assessment as appropriate. Nuclear Med Report: [id number] PLANAR and SPECT: Myocardial imaging of the chest with CT attenuation correction was performed at 3 hours post IV injection of Tc-99m Pyrophosphate. See administered doses below. [facility] Date of service: 04/19/2024 10:10:48 AM Ordering Physician: Requesting Physician: NICK MERCADO Indication: Suspected Amyloid Heart Disease Fellow: Baldev Abreu MD Interpreting physician: Henry Knight MD Endomycardial Biopsy Result: Not Available Height: 179.10 cm BSA: 2.32 m Weight: 108.41 kg BMI: 33.8 kg/m CT Dose-Length Product(DLP): 160.0 mGy * cm. CT Dose Reduction Employed: Yes. Exam Type: Rest Study Date: 04/19/2024 Radiopharm: 99m Technetium-HDP Dosage(mCi): 21.2 Injection Time: 8:00:00 AM Atten Correction: performed Time Interval: 3.0 hours Image Quality The overall study imaging quality was deemed to be good. CARDIAC FINDINGS: PLANAR: Visual Comparison to Bone: Grade 0 = No uptake and normal bone uptake (negative for ATTR) SPECT: Uptake Pattern: Absent NON CARDIAC FINDINGS: Summary: Not Consistent with TTR amyloidosis * Please note that a negative or mildly positive study does not exclude AL amyloid. In addition, equivocal results could represent AL amyloid or early ATTR. We suggest concomitant workup of AL amyloid with laboratory testing and pathologic assessment as appropriate. * * * Final * * * RP Corporate Intern: EMPERATRIZ Blakeribe Date/Time: Apr 19 2024 10:10A Dictated by : HENRY KNIGHT MD This examination was interpreted and the report reviewed and electronically signed by: HENRY KNIGHT MD on Apr 19 2024 11:27AM [facility] DIVISION OF RADIOLOGY Provider, [facility] - 04/19/2024 * * *Final Report* * * DATE OF EXAM: Apr 19 2024 10:45AM [facility] 0847 - [place] CARDIAC AMYLOID SPECT/CT / PROCEDURE REASON: Heart failure with mildly reduced ejection fraction (HFmrEF) (HCC) * * * * Physician Interpretation * * * * NM CTAC Report: [facility] Date of service: 04/19/2024 10:10:48 AM CTAC interpreting physician: Henry Knight MD PATIENT: Name: NICK ASN Age: 64 years Gender: M 1. Incidental Findings from limited non-diagnostic CTAC: - No distinct coronary calcifications. * * * Final * * * Patient: Name: NICK SAN Age: 64 years Gender: M CONCLUSIONS: 1. Not Consistent with TTR amyloidosis * Please note that a negative or mildly positive study does not exclude AL amyloid. In addition, equivocal results could represent AL amyloid or early ATTR. We suggest concomitant workup of AL amyloid with laboratory testing and pathologic assessment as appropriate. Nuclear Med Report: [id number] PLANAR and SPECT: Myocardial imaging of the chest with CT attenuation correction was performed at 3 hours post IV injection of Tc-99m Pyrophosphate. See administered doses below. [facility] [place] Date of service: 04/19/2024 10:10:48 AM Ordering Physician: Requesting Physician: NICK MERCADO Indication: Suspected Amyloid Heart Disease Fellow: Baldev Abreu MD Interpreting physician: Henry Knight MD Endomycardial Biopsy Result: Not Available Height: 179.10 cm BSA: 2.32 m Weight: 108.41 kg BMI: 33.8 kg/m CT Dose-Length Product(DLP): 160.0 mGy * cm. CT Dose Reduction Employed: Yes. Exam Type: Rest Study Date: 04/19/2024 Radiopharm: 99m Technetium-HDP Dosage(mCi): 21.2 Injection Time: 8:00:00 AM Atten Correction: performed Time Interval: 3.0 hours Image Quality The overall study imaging quality was deemed to be good. CARDIAC FINDINGS: PLANAR: Visual Comparison to Bone: Grade 0 = No uptake and normal bone uptake (negative for ATTR) SPECT: Uptake Pattern: Absent NON CARDIAC FINDINGS: Summary: Not Consistent with TTR amyloidosis * Please note that a negative or mildly positive study does not exclude AL amyloid. In addition, equivocal results could represent AL amyloid or early ATTR. We suggest concomitant workup of AL amyloid with laboratory testing and pathologic assessment as appropriate. * * * Final * * * RP Corporate Intern: EMPERATRIZ Transcribe Date/Time: Apr 19 2024 10:10A Dictated by : HENRY KNIGHT MD This examination was interpreted and the report reviewed and electronically signed by: HENRY KNIGHT MD on Apr 19 2024 11:27AM EST [facility] Radiology Study observation (narrative) [facility] SPECT Heart for infarct W Tc -99m PYP IVOrdered By: Ccf Provider on 04-19-2024 [facility] Basic metabolic 2000 panelon 02-26-2024 Anion gap [Moles/Vol] 13 mmol/L 9 - 18 mmol/L [facility] Calcium [Mass/Vol] 10.0 mg/dL 8.5 - 10. 2 mg/dL [facility] Chloride [Moles/Vol] 101 mmol/L 97 - 10 5 mmol/L [facility] CO2 [Moles/Vol] 26 mmol/L 22 - 30 mmol/L [facility] Creatinine [Mass/Vol] 1.07 mg/dL 0.73 - 1.22 mg/dL [facility] GFR/1.73 sq M.predicted among non-blacks MDRD (S/P/Bld) [Vol rate/Area] 77 mL/min/{1.73_m2} - PINF [facility] Comment on above: Estimated Glomerular Filtration Rate (eGFR) is calculated using the 2020 CKD-EPI creatinine equation. This equation utilizes serum creatinine, sex, and age as parameters. The creatinine assay has traceable calibration to isotope dilution-mass spectrometry. Refer to KDIGO guidelines for clinical interpretation. In patients with unstable renal function, e.g. those with acute kidney injury, the eGFR may not accurately reflect actual GFR. Glucose [Mass/Vol] 120 mg/dL High 74 - 99 mg/dL [facility] Comment on above: The Indian Diabete s Association (ADA) provides guidance for cutoff values [...] Indian Diabetes Association. Diabetes Care. 2016.39(Suppl 1). Potassium [Moles/Vol] 3.6 mmol/L Low 3.7 - 5.1 mmol/L [facility] Sodium [Moles/Vol] 140 mmol/L 136 - 144 mmol/L [facility] Urea nitrogen [Mass/Vol] 21 mg/dL 9 - 24 mg/dL [facility] CBC panel Auto (Bld)on 02-25 Erythrocyte distribution width (RBC) [Ratio] 12.3 % 11.5 - 15.0 % [facility] Hematocrit (Bld) [Volume fraction] 41.2 % 39.0 - 51.0 % [facility] Hemoglobin (Bld) [Mass/Vol] 13.9 g/dL 13.0 - 17.0 g/dL [facility] Interpretation and review of laboratory results Normal [facility] MCH (RBC) [Entitic mass] 30.8 pg 26.0 - 34.0 pg [facility] MCHC (RBC) [Mass/Vol] 33.7 g/dL 30.5 - 36.0 g/dL [facility] MCV (RBC) [Entitic vol] 91.2 fL 80.0 - 100.0 fL [facility] Nucleated RBC (Bld) [#/Vol] NINF [facility] Platelet mean volume (Bld) [Entitic vol] 9.7 fL 9.0 - 12.7 fL [facility] Platelets (Bld) [#/Vol] 299 10*3/uL [facility] RBC (Bld) [#/Vol] 4.52 10*6/uL 4.20 - 6.00 m/uL [facility] WBC (Bld) [#/Vol] 10.96 10*3/uL [facility] HbA1c (Bld)on 02-26-2024 Average glucose Estimated from glycated hemoglobin (Bld) [Mass/Vol] 137 mg/dL [facility] Comment on above: eAG: (Estimated aver age glucose) is a calculated value from HgbA1c and is installation service representative of the average blood glucose level in the last 2-3 month period. HbA1c (Bld) [Mass fraction] 6.4 % High 4.3 - 5.6 % [facility] Comment on above: Indian Diabetes As sociation guidelines indicate that patients with HgbA1c in the range 5.7-6.4% are at increased risk for development of diabetes, and intervention by lifestyle modification may be beneficial. HgbA1c greater or equal to 6.5% is considered diagnostic of diabetes. Interpretation and review of laboratory results Abnormal [facility] NT PRO BNPon 02-26-2024 Natriuretic peptide.B prohormone N-Terminal [Mass/Vol] 147 pg/mL High NINF - 125 pg/mL [facility] No Panel Informationon 02-25 Interpretation and review of laboratory results Abnormal [facility] THYROID STIMULATING HORMONEo n 02-26-2024 TSH Qn 1.610 m[IU]/L [facility] TSH Qnon 02-26-2024 Interpretation and review of laboratory results Normal [facility] No Panel Informationon 01-14 [facility] MR Brain WO contraston 01-05 [facility] Laboratory - Hematology and Cell countson 12-02-2023 HbA1c (Bld) [Mass fraction] 6.6 % 4.2-6.3 [facility] Laboratory - Hematology and Cell countson 08-20-2023 HbA1c (Bld) [Mass fraction] 5.7 % 4.2-6.3 [facility] No Panel InformationOrdered By: Edi Daniels on 06-04-2023 Prostate Specific Antigen Screen 0.61 ng/mL 0.00-4.00 [facility] Comment on above: This test was perfor med using the TPSA assay method for [employer] chemistry system. Values obtained with differentassay methods cannot be used interchangably.When changing PSA assays in the course of monitoring apatient, additional sequential testing should be carriedout to confirm baseline values. Absolute lymphocyte countOrd ered By: Amaya No on 05-20-2023 Lymphocytes Auto (Unsp spec) [#/Vol] 2.40 10*3/uL 0.83-4.51 [facility] Basophil percentageOrdered B y: Amaya No on 05-20-2023 Basophils/100 WBC (Bld) 0.4 % 0-1 [facility] Bilirubin [Mass/Vol] 0.40 mg/dL 0.20-1.00 [facility] Comment on above: For patients on eltr ombopag therapy, use of Dimension [place] TBIL is not recommended. Chloride [Moles/Vol] 107 mmol/L 98-107 [facility] Cholesterol [Mass/Vol] 184 mg/dL <200 [facility] Comment on above: <200 mg/dL Desirable 200-240 mg/dL Borderline >240 mg/dL High Risk Eosinophils/100 WBC (Bld) 0.8 % 0-5 [facility] Glucose [Mass/Vol] 107 mg/dL 74-106 [facility] Comment on above: Fasting Glucose resu lt from 100 to 125 mg/dL suggests IMPAIRED HOMEOSTASIS per A.D.A. criteria. Neutrophils (Bld) [#/Vol] 5.9 10*3/uL 2.0-7.7 [facility] Neutrophils/100 WBC (Bld) 64.8 % 47-70 [facility] Potassium [Moles/Vol] 3.8 mmol/L 3.5-5.1 [facility] Protein [Mass/Vol] 7.1 g/dL 6.4-8.2 [facility] Sodium [Moles/Vol] 141 mmol/L 136-145 [facility] Triglyceride [Mass/Vol] 92 mg/dL <199 [facility] Comment on above: The drugs N-Acetylcy steine and Metamizole may falsely depress this assay.Serum Triglycerides Reference Interval Normal <150 mg/dL Borderline high 150 - 199 mg/dL High 200 - 499 mg/dL Very High > or = 500 mg/dL WBC (Bld) [#/Vol] 9.1 10*3/uL 4.4-11.0 [facility] Blood erythrocytes count (nu mber/volume)Ordered By: Amaya No on 05-20-2023 RBC (Bld) [#/Vol] 4.62 10*6/uL 4.6-6.2 [facility] Blood hemoglobin measurement (mass/volume)Ordered By: Amaya No on 05-20-2023 Hemoglobin (Bld) [Mass/Vol] 13.9 g/dL 13.0-16.5 [facility] Blood lymphocytes/100 leukoc ytesOrdered By: Amaya No on 05-20-2023 Lymphocytes/100 WBC (Bld) 26.3 % 19-41 [facility] Blood monocytes/100 leukocyt esOrdered By: Amaya No on 05-20-2023 Monocytes/100 WBC (Bld) 7.4 % 0-10 [facility] Blood platelet mean volumeOr dered By: Amaya No on 05-20-2023 Platelet mean volume (Bld) [Entitic vol] 9.9 fL 6.2-12.0 [facility] Determination of erythrocyte mean corpuscular volume (MCV)Ordered By: Amaya No on 05-20-2023 MCV (RBC) [Entitic vol] 95.5 fL 80-94 [facility] Hematocrit Auto (Bld) [Volum e fraction]Ordered By: Amaya No on 05-20-2023 Hematocrit (Bld) [Volume fraction] 44.1 % 40-54 [facility] Laboratory - Chemistry and C hemistry - challengeOrdered By: Amaya No on 05-20-2023 ALP [Catalytic activity/Vol] 76 U/L 45-117 [facility] ALT [Catalytic activity/Vol] 23 U/L 16-61 [facility] CO2 [Moles/Vol] 28.0 mmol/L 21.0-32.0 [facility] Globulin (S) [Mass/Vol] 3.5 g/dL 2.2-4.2 [facility] Urea nitrogen/Creatinine [Mass ratio] 27.6 mg/mg 10-20 [facility] Laboratory - Hematology and Cell countsOrdered By: Amaya No on 05-20-2023 Erythrocyte distribution width (RBC) [Entitic vol] 45.1 fL 35.1-43.9 [facility] Erythrocyte distribution width (RBC) [Ratio] 13.0 % 11.6-14.6 [facility] Immature granulocytes/100 WBC (Bld) 0.300 % 0.0-0.9 [facility] Comment on above: IG% - Immature Granu locytes (promyelocytes, myelocytes and metamyelocytes) > 1% indicates that a LEFT SHIFT is Present. MCH (RBC) [Entitic mass] 30.1 pg 27.0-32.0 [facility] Nucleated RBC/100 WBC (Bld) [Ratio] 0 % 0-5 [facility] MCHC Auto (RBC) [Mass/Vol]Or dered By: Amaya No on 05-20-2023 MCHC (RBC) [Mass/Vol] 31.5 g/dL 32-36 [facility] No Panel InformationOrdered By: Amaya No on 05-20-2023 Estimated GFR (MDRD) Amer 91 mL/min >60 [facility] Comment on above: GFR Calc Estimated GFR (MDRD) Non-Af Amer 75 mL/min >60 [facility] Comment on above: Non- GFR Calc Prostate Specific Antigen Total 0.61 ng/mL 0.0-4.0 [facility] Comment on above: This test was perfor med using the TPSA assay method for [employer] chemistry system. Values obtained with differentassay methods cannot be used interchangably.When changing PSA assays in the course of monitoring apatient, additional sequential testing should be carriedout to confirm baseline values. Platelets bldOrdered By: Ted No on 05-20-2023 Platelets (Bld) [#/Vol] 275 10*3/uL 150-450 [facility] Serum or plasma albumin leela urement (mass/volume)Ordered By: Amaya No on 05-20-2023 Albumin [Mass/Vol] 3.6 g/dL 3.2-5.0 [facility] Serum or plasma albumin/glob ulin mass ratioOrdered By: Amaya No on 05-20-2023 Albumin/Globulin [Mass ratio] 1.0 {ratio} 0.9-2.4 [facility] Serum or plasma calcium leela urement (mass/volume)Ordered By: Amaya No on 05-20-2023 Calcium [Mass/Vol] 9.2 mg/dL 8.5-10.1 [facility] Serum or plasma cholesterol in HDL measurement (mass/volume)Ordered By: Amaya No on 05-20-2023 Cholesterol in HDL [Mass/Vol] 59 mg/dL >40 [facility] Comment on above: The drugs N-Acetylcy steine and Metamizole may falsely depress this assay. Reference Range HDL <40 mg/dL Low HDL Cholesterol HDL >or= 60 mg/dL High HDL Cholesterol Serum or plasma cholesterol in VLDL measurement (mass/volume)Ordered By: Amaya No on 05-20-2023 Cholesterol in VLDL [Mass/Vol] 18 mg/dL 5-40 [facility] Serum or plasma creatinine m easurement (mass/volume)Ordered By: Amaya No on 05-20-2023 Creatinine [Mass/Vol] 1.05 mg/dL 0.70-1.30 [facility] Comment on above: The validity of the calculated GFR & GFRAA in patients over 70 years has not been determined. Clinical correlation is essential. Serum or plasma low density lipoprotein (LDL) cholesterol measurement (mass/volume)Ordered By: Amaya No on 05-20-2023 Cholesterol in LDL [Mass/Vol] 107 mg/dL 0-130 [facility] Serum or plasma urea nitroge n measurement (mass/volume)Ordered By: Amaya No on 05-20-2023 Urea nitrogen [Mass/Vol] 29 mg/dL 7-18 [facility] Thin prep Papanicolaou smear with manual screeningOrdered By: Amaya No on 05-20-2023 Thin prep Papanicolaou smear with manual screening 12 U/L 15-37 [facility] Thin prep Papanicolaou smear with manual screening 6 5-15 [facility] Whole blood hemoglobin A1c/t otal hemoglobin ratio (mass fraction)Ordered By: Amaya No on 05-20-2023 HbA1c (Bld) [Mass fraction] 6.1 % 3.8-5.6 [facility] Comment on above: Normal < 5.7 % Predi abetic 5.7 - 6.4 % Diabetic >or= 6.5 % Please note range changes. .Auto Diffon 08-01-2022 Basophil, Absolute 0.1 10 3/mcL Normal 0.0-0.3 [facility] ([place]) Comment on above: Performed By: #### U JAGJIT, GFR, CMP, A1C, ANEU, ADIFF, PSA, LIPID, CBC #### [address] [address] Basophils/100 WBC (Bld) 0.8 % Normal 0.0-2.5 [facility] ([place]) Comment on above: Performed By: #### U JAGJIT, GFR, CMP, A1C, ANEU, ADIFF, PSA, LIPID, CBC #### [address] [address] Eosinophil, Absolute 0.1 10 3/mcL Normal 0.0-0.7 [facility] ([place]) Comment on above: Performed By: #### U JAGJIT, GFR, CMP, A1C, ANEU, ADIFF, PSA, LIPID, CBC #### [address] [address] Eosinophils/100 WBC (Bld) 1.8 % Normal 0.0-6.0 [facility] ([place]) Comment on above: Performed By: #### U JAGJIT, GFR, CMP, A1C, ANEU, ADIFF, PSA, LIPID, CBC #### [address] [address] Lymphocyte, Absolute 2.2 10 3/mcL Normal 0.9-4.3 [facility] ([place]) Comment on above: Performed By: #### U JAGJIT, GFR, CMP, A1C, ANEU, ADIFF, PSA, LIPID, CBC #### [address] [address] Lymphocytes/100 WBC (Bld) 28.9 % Normal 20.0-40.0 [facility] ([place]) Comment on above: Performed By: #### U JAGJIT, GFR, CMP, A1C, ANEU, ADIFF, PSA, LIPID, CBC #### [address] [address] Monocyte, Absolute 0.6 10 3/mcL Normal 0.1-1.4 [facility] ([place]) Comment on above: Performed By: #### U JAGJIT, GFR, CMP, A1C, ANEU, ADIFF, PSA, LIPID, CBC #### [address] [address] Monocytes/100 WBC (Bld) 8.5 % Normal 2.0-13.0 [facility] ([place]) Comment on above: Performed By: #### U JAGJIT, GFR, CMP, A1C, ANEU, ADIFF, PSA, LIPID, CBC #### [address] [address] Neutrophils/100 WBC (Bld) 60.0 % Normal 50.0-75.0 [facility] ([place]) Comment on above: Performed By: #### U JAGIJT, GFR, CMP, A1C, ANEU, ADIFF, PSA, LIPID, CBC #### [address] [address] .GFRon 08-01-2022 GFR Non- >60 Normal [facility] ([place]) Comment on above: Result Comment: GFR Population mean for , Non- Americans Ages 20-29 = 116 mL/min/1.73 sq.m. Ages 30-39 = 107 mL/min/1.73 sq.m. Ages 40-49 = 99 mL/min/1.73 sq.m. Ages 50-59 = 93 mL/min/1.73 sq.m. Ages 60-69 = 85 mL/min/1.73 sq.m. Ages 70+ = 75 mL/min/1.73 sq.m. Chronic Kidney Disease: Less than 60 mL/min/1.73 square meters End Stage Renal Disease: Less than 15 mL/min/1.73 square meters Performed By: #### U JAGJIT, GFR, CMP, A1C, ANEU, ADIFF, PSA, LIPID, CBC #### [address] [address] GFR >60 Normal [facility] ([place]) Comment on above: Result Comment: GFR Population mean for , Non- Americans Ages 20-29 = 116 mL/min/1.73 sq.m. Ages 30-39 = 107 mL/min/1.73 sq.m. Ages 40-49 = 99 mL/min/1.73 sq.m. Ages 50-59 = 93 mL/min/1.73 sq.m. Ages 60-69 = 85 mL/min/1.73 sq.m. Ages 70+ = 75 mL/min/1.73 sq.m. Chronic Kidney Disease: Less than 60 mL/min/1.73 square meters End Stage Renal Disease: Less than 15 mL/min/1.73 square meters Performed By: #### U JAGJIT, GFR, CMP, A1C, ANEU, ADIFF, PSA, LIPID, CBC #### [address] [address] .NEUABSon 08-01-2022 Neutrophil, Absolute 4.6 10 3/mcL Normal 2.3-8.1 [facility] ([place]) Comment on above: Performed By: #### U JAGJIT, GFR, CMP, A1C, ANEU, ADIFF, PSA, LIPID, CBC #### [address] [address] A1Con 08-01-2022 HbA1c (Bld) [Mass fraction] 5.8 % Normal 4.0-6.0 [facility] ([place]) Comment on above: Performed By: #### U JAGJIT, GFR, CMP, A1C, ANEU, ADIFF, PSA, LIPID, CBC #### [facility] [id number] CBCon 08-01-2022 Erythrocyte distribution width (RBC) [Ratio] 13.9 % Normal 11.5-15.5 [facility] ([place]) Comment on above: Performed By: #### U JAGJIT, GFR, CMP, A1C, ANEU, ADIFF, PSA, LIPID, CBC #### [place] [address] Hematocrit (Bld) [Volume fraction] 39.3 % Low 40.0-52.0 [facility] ([place]) Comment on above: Performed By: #### U JAGJIT, GFR, CMP, A1C, ANEU, ADIFF, PSA, LIPID, CBC #### [place] [address] Hgb 13.2 G/dL Normal 13.0-17.5 [facility] ([place]) Comment on above: Performed By: #### U JAGJIT, GFR, CMP, A1C, ANEU, ADIFF, PSA, LIPID, CBC #### [place] [address] MCH (RBC) [Entitic mass] 29.6 pg Normal 27.0-33.0 [facility] ([place]) Comment on above: Performed By: #### U JAGJIT, GFR, CMP, A1C, ANEU, ADIFF, PSA, LIPID, CBC #### [place] [address] MCHC 33.6 G/dL Normal 32.0-36.0 [facility] ([place]) Comment on above: Performed By: #### U JAGJIT, GFR, CMP, A1C, ANEU, ADIFF, PSA, LIPID, CBC #### [place] [id number] MCV (RBC) [Entitic vol] 88.0 fL Normal 81.0-100.0 [facility] ([place]) Comment on above: Performed By: #### U JAGJIT, GFR, CMP, A1C, ANEU, ADIFF, PSA, LIPID, CBC #### [place] [address] Platelet 299 10 3/mcL Normal 150-450 [facility] ([place]) Comment on above: Performed By: #### U JAGJIT, GFR, CMP, A1C, ANEU, ADIFF, PSA, LIPID, CBC #### [address] [address] Platelet mean volume (Bld) [Entitic vol] 7.8 fL Normal 6.4-10.5 [facility] ([place]) Comment on above: Performed By: #### U JAGJIT, GFR, CMP, A1C, ANEU, ADIFF, PSA, LIPID, CBC #### [address] [address] RBC 4.46 10 6/mcL Low 4.50-6.00 [facility] ([place]) Comment on above: Performed By: #### U JAGJIT, GFR, CMP, A1C, ANEU, ADIFF, PSA, LIPID, CBC #### [place] [id number] WBC 7.6 10 3/mcL Normal 4.5-10.8 [facility] ([place]) Comment on above: Performed By: #### U JAGJIT, GFR, CMP, A1C, ANEU, ADIFF, PSA, LIPID, CBC #### [place] [address] CMPon 08-01-2022 Albumin Level 4.0 G/dL Normal 3.2-4.8 [facility] ([place]) Comment on above: Performed By: #### U JAGJIT, GFR, CMP, A1C, ANEU, ADIFF, PSA, LIPID, CBC #### [place] [address] Albumin/Globulin [Mass ratio] 1.4 {ratio} Normal 0.9-1.6 [facility] ([place]) Comment on above: Performed By: #### U JAGJIT, GFR, CMP, A1C, ANEU, ADIFF, PSA, LIPID, CBC #### [place] [id number] ALP [Catalytic activity/Vol] 67 U/L Normal 38-126 [facility] ([place]) Comment on above: Performed By: #### U JAGJIT, GFR, CMP, A1C, ANEU, ADIFF, PSA, LIPID, CBC #### [address] [address] ALT [Catalytic activity/Vol] 18 U/L Normal 12-55 [facility] ([place]) Comment on above: Performed By: #### U JAGJIT, GFR, CMP, A1C, ANEU, ADIFF, PSA, LIPID, CBC #### [address] [address] AST [Catalytic activity/Vol] 27 U/L Normal 8-34 [facility] ([place]) Comment on above: Performed By: #### U JAGJIT, GFR, CMP, A1C, ANEU, ADIFF, PSA, LIPID, CBC #### [address] [address] Bili Total 0.50 mg/dL Normal 0.20-1.20 [facility] ([place]) Comment on above: Result Comment: Use of this assay is not recommended for patients undergoing treatment with eltrombopag due to the potential for falsely elevated results. Performed By: #### U JAGJIT, GFR, CMP, A1C, ANEU, ADIFF, PSA, LIPID, CBC #### [address] [address] BUN/Creatinine Ratio 16.7 ratio Normal 10.0-22.0 [facility] ([place]) Comment on above: Performed By: #### U JAGJIT, GFR, CMP, A1C, ANEU, ADIFF, PSA, LIPID, CBC #### [address] [address] Calcium [Mass/Vol] 9.6 mg/dL Normal 8.7-10.4 [facility] ([place]) Comment on above: Performed By: #### U JAGJIT, GFR, CMP, A1C, ANEU, ADIFF, PSA, LIPID, CBC #### [address] [address] Chloride [Moles/Vol] 102 mmol/L Normal 98-110 [facility] ([place]) Comment on above: Performed By: #### U JAGJIT, GFR, CMP, A1C, ANEU, ADIFF, PSA, LIPID, CBC #### [address] [address] CO2 [Moles/Vol] 33 mmol/L High 22-32 [facility] ([place]) Comment on above: Performed By: #### U JAGJIT, GFR, CMP, A1C, ANEU, ADIFF, PSA, LIPID, CBC #### [address] [address] Creatinine [Mass/Vol] 0.96 mg/dL Normal 0.60-1.40 [facility] ([place]) Comment on above: Performed By: #### U JAGJIT, GFR, CMP, A1C, ANEU, ADIFF, PSA, LIPID, CBC #### [address] [address] Electrolyte Balance 5.0 mEq/L Normal 4.0-15.0 [facility] ([place]) Comment on above: Performed By: #### U JAGIJT, GFR, CMP, A1C, ANEU, ADIFF, PSA, LIPID, CBC #### [place] [id number] Globulin 2.8 G/dL Normal 1.5-3.8 [facility] ([place]) Comment on above: Performed By: #### U JAGJIT, GFR, CMP, A1C, ANEU, ADIFF, PSA, LIPID, CBC #### [address] [address] Glucose [Mass/Vol] 102 mg/dL Normal 82-115 [facility] ([place]) Comment on above: Performed By: #### U JAGJIT, GFR, CMP, A1C, ANEU, ADIFF, PSA, LIPID, CBC #### [place] [id number] Potassium [Moles/Vol] 3.8 mmol/L Normal 3.5-5.0 [facility] ([place]) Comment on above: Result Comment: Spec imen slightly hemolyzed. Performed By: #### U JAGJIT, GFR, CMP, A1C, ANEU, ADIFF, PSA, LIPID, CBC #### [address] [address] Sodium [Moles/Vol] 140 mmol/L Normal 136-145 [facility] ([place]) Comment on above: Performed By: #### U JAGJIT, GFR, CMP, A1C, ANEU, ADIFF, PSA, LIPID, CBC #### [address] [address] Total Protein 6.8 G/dL Normal 5.7-8.2 [facility] ([place]) Comment on above: Result Comment: No te - New Reference Range in effect 20 Performed By: #### U JAGJIT, GFR, CMP, A1C, ANEU, ADIFF, PSA, LIPID, CBC #### [address] [address] Urea nitrogen [Mass/Vol] 16.0 mg/dL Normal 8.0-22.0 [facility] ([place]) Comment on above: Performed By: #### U JAGJIT, GFR, CMP, A1C, ANEU, ADIFF, PSA, LIPID, CBC #### [address] [address] LIPIDon 08-01-2022 Cholesterol [Mass/Vol] 180 mg/dL Normal 50-199 [facility] ([place]) Comment on above: Result Comment: Chol esterol Reference Interval: Less than 200 Desirable 200-239 Borderline high risk 240 and above High risk Performed By: #### U JAGJIT, GFR, CMP, A1C, ANEU, ADIFF, PSA, LIPID, CBC #### [address] [address] Cholesterol in HDL [Mass/Vol] 44 mg/dL Normal 40-59 [facility] ([place]) Comment on above: Performed By: #### U JAGJIT, GFR, CMP, A1C, ANEU, ADIFF, PSA, LIPID, CBC #### [address] [address] Cholesterol in LDL [Mass/Vol] 103 mg/dL Normal 0-129 [facility] ([place]) Comment on above: Performed By: #### U JAGJIT, GFR, CMP, A1C, ANEU, ADIFF, PSA, LIPID, CBC #### [address] [address] Triglyceride [Mass/Vol] 165 mg/dL High 3-149 [facility] ([place]) Comment on above: Performed By: #### U JAGJIT, GFR, CMP, A1C, ANEU, ADIFF, PSA, LIPID, CBC #### [address] [address] .Auto Diffon 02-21-2022 Basophil, Absolute 0.10 10 3/mcL Normal 0.00-0.27 [facility] ([place]) Comment on above: Performed By: #### U JAGJIT, GFR, CMP, A1C, ANEU, ADIFF, PSA, LIPID, CBC #### [address] [address] Basophils/100 WBC (Bld) 0.7 % Normal 0.0-2.5 [facility] ([place]) Comment on above: Performed By: #### U JAGJIT, GFR, CMP, A1C, ANEU, ADIFF, PSA, LIPID, CBC #### [address] [address] Eosinophil, Absolute 0.30 10 3/mcL Normal 0.00-0.65 [facility] ([place]) Comment on above: Performed By: #### U JAGJIT, GFR, CMP, A1C, ANEU, ADIFF, PSA, LIPID, CBC #### [address] [address] Eosinophils/100 WBC (Bld) 3.0 % Normal 0.0-6.0 [facility] ([place]) Comment on above: Performed By: #### U JAGJIT, GFR, CMP, A1C, ANEU, ADIFF, PSA, LIPID, CBC #### [address] [address] Lymphocyte, Absolute 2.60 10 3/mcL Normal 0.90-4.32 [facility] ([place]) Comment on above: Performed By: #### U JAGJIT, GFR, CMP, A1C, ANEU, ADIFF, PSA, LIPID, CBC #### [address] [address] Lymphocytes/100 WBC (Bld) 26.7 % Normal 20.0-40.0 [facility] ([place]) Comment on above: Performed By: #### U JAGJIT, GFR, CMP, A1C, ANEU, ADIFF, PSA, LIPID, CBC #### [address] [address] Monocyte, Absolute 0.70 10 3/mcL Normal 0.09-1.40 [facility] ([place]) Comment on above: Performed By: #### U JAGJIT, GFR, CMP, A1C, ANEU, ADIFF, PSA, LIPID, CBC #### [address] [address] Monocytes/100 WBC (Bld) 6.9 % Normal 2.0-13.0 [facility] ([place]) Comment on above: Performed By: #### U JAGJIT, GFR, CMP, A1C, ANEU, ADIFF, PSA, LIPID, CBC #### [address] [address] Neutrophils/100 WBC (Bld) 62.7 % Normal 50.0-75.0 [facility] ([place]) Comment on above: Performed By: #### U JAGJIT, GFR, CMP, A1C, ANEU, ADIFF, PSA, LIPID, CBC #### [address] [address] .GFRon 02-21-2022 GFR >60 Normal [facility] ([place]) Comment on above: Result Comment: GFR Population mean for , Non- Americans Ages 20-29 = 116 mL/min/1.73 sq.m. Ages 30-39 = 107 mL/min/1.73 sq.m. Ages 40-49 = 99 mL/min/1.73 sq.m. Ages 50-59 = 93 mL/min/1.73 sq.m. Ages 60-69 = 85 mL/min/1.73 sq.m. Ages 70+ = 75 mL/min/1.73 sq.m. Chronic Kidney Disease: Less than 60 mL/min/1.73 square meters End Stage Renal Disease: Less than 15 mL/min/1.73 square meters Performed By: #### U JAGJIT, GFR, CMP, A1C, ANEU, ADIFF, PSA, LIPID, CBC #### [address] [address] GFR Non- >60 Normal [facility] ([place]) Comment on above: Result Comment: GFR Population mean for , Non- Americans Ages 20-29 = 116 mL/min/1.73 sq.m. Ages 30-39 = 107 mL/min/1.73 sq.m. Ages 40-49 = 99 mL/min/1.73 sq.m. Ages 50-59 = 93 mL/min/1.73 sq.m. Ages 60-69 = 85 mL/min/1.73 sq.m. Ages 70+ = 75 mL/min/1.73 sq.m. Chronic Kidney Disease: Less than 60 mL/min/1.73 square meters End Stage Renal Disease: Less than 15 mL/min/1.73 square meters Performed By: #### U JAGJIT, GFR, CMP, A1C, ANEU, ADIFF, PSA, LIPID, CBC #### [address] [address] .NEUABSon 02-21-2022 Neutrophil, Absolute 6.10 10 3/mcL Normal 2.25-8.10 [facility] ([place]) Comment on above: Performed By: #### U JAGJIT, GFR, CMP, A1C, ANEU, ADIFF, PSA, LIPID, CBC #### [place] [address] A1Con 02-21-2022 HbA1c (Bld) [Mass fraction] 6.0 % Normal 4.0-6.0 [facility] ([place]) Comment on above: Performed By: #### U JAGJIT, GFR, CMP, A1C, ANEU, ADIFF, PSA, LIPID, CBC #### [place] [address] CBCon 02-21-2022 Erythrocyte distribution width (RBC) [Ratio] 14.4 % Normal 11.5-15.5 [facility] ([place]) Comment on above: Performed By: #### U JAGJIT, GFR, CMP, A1C, ANEU, ADIFF, PSA, LIPID, CBC #### [place] [address] Hematocrit (Bld) [Volume fraction] 36.5 % Low 40.0-52.0 [facility] ([place]) Comment on above: Performed By: #### U JAGJIT, GFR, CMP, A1C, ANEU, ADIFF, PSA, LIPID, CBC #### [place] [address] Hgb 12.2 G/dL Low 13.0-17.5 [facility] ([place]) Comment on above: Performed By: #### U JAGJIT, GFR, CMP, A1C, ANEU, ADIFF, PSA, LIPID, CBC #### [place] [address] MCH (RBC) [Entitic mass] 28.7 pg Normal 27.0-33.0 [facility] ([place]) Comment on above: Performed By: #### U JAGJIT, GFR, CMP, A1C, ANEU, ADIFF, PSA, LIPID, CBC #### [place] [address] MCHC 33.3 G/dL Normal 32.0-36.0 [facility] ([place]) Comment on above: Performed By: #### U JAGJIT, GFR, CMP, A1C, ANEU, ADIFF, PSA, LIPID, CBC #### [place] [address] MCV (RBC) [Entitic vol] 86.0 fL Normal 81.0-100.0 [facility] ([place]) Comment on above: Performed By: #### U JAGJIT, GFR, CMP, A1C, ANEU, ADIFF, PSA, LIPID, CBC #### [place] [address] Platelet 324 10 3/mcL Normal 150-450 [facility] ([place]) Comment on above: Performed By: #### U JAGJIT, GFR, CMP, A1C, ANEU, ADIFF, PSA, LIPID, CBC #### [place] [address] Platelet mean volume (Bld) [Entitic vol] 8.5 fL Normal 6.4-10.5 [facility] ([place]) Comment on above: Performed By: #### U JAGJIT, GFR, CMP, A1C, ANEU, ADIFF, PSA, LIPID, CBC #### [place] [address] RBC 4.24 10 6/mcL Low 4.50-6.00 [facility] ([place]) Comment on above: Performed By: #### U JAGJIT, GFR, CMP, A1C, ANEU, ADIFF, PSA, LIPID, CBC #### [place] [address] WBC 9.70 10 3/mcL Normal 4.50-10.80 [facility] ([place]) Comment on above: Performed By: #### U JAGJIT, GFR, CMP, A1C, ANEU, ADIFF, PSA, LIPID, CBC #### [address] [address] CMPon 02-21-2022 Albumin Level 3.8 G/dL Normal 3.2-4.8 [facility] ([place]) Comment on above: Performed By: #### U JAGJIT, GFR, CMP, A1C, ANEU, ADIFF, PSA, LIPID, CBC #### [address] [address] Albumin/Globulin [Mass ratio] 1.4 {ratio} Normal 0.9-1.6 [facility] ([place]) Comment on above: Performed By: #### U JAGJIT, GFR, CMP, A1C, ANEU, ADIFF, PSA, LIPID, CBC #### [address] [address] ALP [Catalytic activity/Vol] 79 U/L Normal 38-126 [facility] ([place]) Comment on above: Performed By: #### U JAGJIT, GFR, CMP, A1C, ANEU, ADIFF, PSA, LIPID, CBC #### [address] [address] ALT [Catalytic activity/Vol] 20 U/L Normal 12-55 [facility] ([place]) Comment on above: Performed By: #### U JAGJIT, GFR, CMP, A1C, ANEU, ADIFF, PSA, LIPID, CBC #### [address] [address] AST [Catalytic activity/Vol] 28 U/L Normal 8-34 [facility] ([place]) Comment on above: Performed By: #### U JAGJIT, GFR, CMP, A1C, ANEU, ADIFF, PSA, LIPID, CBC #### [address] [address] Bili Total 0.50 mg/dL Normal 0.20-1.20 [facility] ([place]) Comment on above: Result Comment: Use of this assay is not recommended for patients undergoing treatment with eltrombopag due to the potential for falsely elevated results. Performed By: #### U JAGJIT, GFR, CMP, A1C, ANEU, ADIFF, PSA, LIPID, CBC #### [place] [id number] BUN/Creatinine Ratio 23.0 ratio High 10.0-22.0 [facility] ([place]) Comment on above: Performed By: #### U JAGJIT, GFR, CMP, A1C, ANEU, ADIFF, PSA, LIPID, CBC #### [place] [address] Calcium [Mass/Vol] 9.8 mg/dL Normal 8.7-10.4 [facility] ([place]) Comment on above: Performed By: #### U JAGJIT, GFR, CMP, A1C, ANEU, ADIFF, PSA, LIPID, CBC #### [place] [address] Chloride [Moles/Vol] 103 mmol/L Normal 98-110 [facility] ([place]) Comment on above: Performed By: #### U JAGJIT, GFR, CMP, A1C, ANEU, ADIFF, PSA, LIPID, CBC #### [place] [id number] CO2 [Moles/Vol] 30 mmol/L Normal 22-32 [facility] ([place]) Comment on above: Performed By: #### U JAGJIT, GFR, CMP, A1C, ANEU, ADIFF, PSA, LIPID, CBC #### [place] [id number] Creatinine [Mass/Vol] 1.13 mg/dL Normal 0.60-1.40 [facility] ([place]) Comment on above: Performed By: #### U JAGJIT, GFR, CMP, A1C, ANEU, ADIFF, PSA, LIPID, CBC #### [place] [address] Electrolyte Balance 7.0 mEq/L Normal 4.0-15.0 [facility] ([place]) Comment on above: Performed By: #### U JAGJIT, GFR, CMP, A1C, ANEU, ADIFF, PSA, LIPID, CBC #### [place] [id number] Globulin 2.8 G/dL Normal 1.5-3.8 [facility] ([place]) Comment on above: Performed By: #### U JAGJIT, GFR, CMP, A1C, ANEU, ADIFF, PSA, LIPID, CBC #### [address] [address] Glucose [Mass/Vol] 94 mg/dL Normal 82-115 [facility] ([place]) Comment on above: Performed By: #### U JAGJIT, GFR, CMP, A1C, ANEU, ADIFF, PSA, LIPID, CBC #### [address] [address] Potassium [Moles/Vol] 3.8 mmol/L Normal 3.5-5.0 [facility] ([place]) Comment on above: Performed By: #### U JAGJIT, GFR, CMP, A1C, ANEU, ADIFF, PSA, LIPID, CBC #### [address] [address] Sodium [Moles/Vol] 140 mmol/L Normal 136-145 [facility] ([place]) Comment on above: Performed By: #### U JAGJIT, GFR, CMP, A1C, ANEU, ADIFF, PSA, LIPID, CBC #### [address] [address] Total Protein 6.6 G/dL Normal 5.7-8.2 [facility] ([place]) Comment on above: Result Comment: No te - New Reference Range in effect 20 Performed By: #### U JAGJIT, GFR, CMP, A1C, ANEU, ADIFF, PSA, LIPID, CBC #### [address] [address] Urea nitrogen [Mass/Vol] 26.0 mg/dL High 8.0-22.0 [facility] ([place]) Comment on above: Performed By: #### U JAGJIT, GFR, CMP, A1C, ANEU, ADIFF, PSA, LIPID, CBC #### [address] [address] LIPIDon 02-21-2022 Cholesterol [Mass/Vol] 165 mg/dL Normal 50-199 [facility] ([place]) Comment on above: Result Comment: Chol esterol Reference Interval: Less than 200 Desirable 200-239 Borderline high risk 240 and above High risk Performed By: #### U JAGJIT, GFR, CMP, A1C, ANEU, ADIFF, PSA, LIPID, CBC #### [address] [address] Cholesterol in HDL [Mass/Vol] 40 mg/dL Normal 40-59 [facility] ([place]) Comment on above: Performed By: #### U JAGJIT, GFR, CMP, A1C, ANEU, ADIFF, PSA, LIPID, CBC #### [address] [address] Cholesterol in LDL [Mass/Vol] 81 mg/dL Normal 0-129 [facility] ([place]) Comment on above: Performed By: #### U JAGJIT, GFR, CMP, A1C, ANEU, ADIFF, PSA, LIPID, CBC #### [address] [address] Triglyceride [Mass/Vol] 220 mg/dL High 3-149 [facility] ([place]) Comment on above: Performed By: #### U JAGJIT, GFR, CMP, A1C, ANEU, ADIFF, PSA, LIPID, CBC #### [address] [address] MALBRon 02-21-2022 U Creatinine 114.5 mg/dL Normal [facility] ([place]) Comment on above: Performed By: #### M ALBR #### [address] [address] U Microalb [address] mcg/dL Normal [facility] ([place]) Comment on above: Performed By: #### M ALBR #### [address] [address] U Ratio Alb/Cre 105.1 mcg/mg High 0.0-16.9 [facility] ([place]) Comment on above: Performed By: #### M ALBR #### [address] [address] PSAon 02-21-2022 Prostate Specific Antigen 0.35 ng/mL Normal 0.02-4.00 [facility] ([place]) Comment on above: Result Comment: Pushpa ent results determined by assays using different manufacturers for methods may not be comparable. Performed By: #### U JAGJIT, GFR, CMP, A1C, ANEU, ADIFF, PSA, LIPID, CBC #### [place] [id number] [address] [place] [address] URICon 02-21-2022 Uric Acid Lvl 9.5 mg/dL High 3.7-9.2 [facility] ([place]) Comment on above: Result Comment: No te - New Reference Range in effect 20 Performed By: #### U JAGJIT, GFR, CMP, A1C, ANEU, ADIFF, PSA, LIPID, CBC #### [facility] [address] [place] [address] NOVEL CORONAVIRUS NASOPHARYN GEAL - [facility] SPECIMEN ONLYon 08-03-2020 SARS-COV-2 NOT DETECTED Normal NOT DETECTED [facility] Comment on above: Order Comment: Viral transport media - Collection must be done while wearing N-95 mask, eye protection, gown and gloves. Please label ALL specimens as 2019-nCoV rule out and deliver by hand. This test was performed using real time PCR and has been approved for the qualitative detection of SARS-CoV-2 nucleic acid. The test has been authorized by the FDA under an emergency use authorization for use by authorized laboratories. Result Comment: Nega tive results do not preclude SARS-CoV-2 infection and should not be used as the sole basis for treatment or other patient management decisions. Optimum specimen types and timing for peak viral levels during infections caused by SARS-CoV-2 has not been determined. The possibility of a false negative result should especially be considered if the patient's recent exposures or clinical presentation suggest that SARS-CoV-2 infection is probable, and diagnostic tests for other causes of illness (e.g., other respiratory illness) are negative. Collection of a new specimen and re-testing may be necessary if the patient is critically ill or clinically deteriorating. Performed By: #### L [id number] #### [facility] (DEFAULT) [address] [place] [address] NOVEL CORONAVIRUS NASOPHARYN GEAL - [facility] SPECIMEN ONLYon 07-27-2020 SARS-COV-2 NOT DETECTED Normal NOT DETECTED [facility] Comment on above: Order Comment: Viral transport media - Collection must be done while wearing N-95 mask, eye protection, gown and gloves. Please label ALL specimens as 2019-nCoV rule out and deliver by hand. This test was performed using real time PCR and has been approved for the qualitative detection of SARS-CoV-2 nucleic acid. The test has been authorized by the FDA under an emergency use authorization for use by authorized laboratories. Result Comment: Nega tive results do not preclude SARS-CoV-2 infection and should not be used as the sole basis for treatment or other patient management decisions. Optimum specimen types and timing for peak viral levels during infections caused by SARS-CoV-2 has not been determined. The possibility of a false negative result should especially be considered if the patient's recent exposures or clinical presentation suggest that SARS-CoV-2 infection is probable, and diagnostic tests for other causes of illness (e.g., other respiratory illness) are negative. Collection of a new specimen and re-testing may be necessary if the patient is critically ill or clinically deteriorating. Performed By: #### L [id number] #### [facility] (DEFAULT) [address] [place] [address] NOVEL CORONAVIRUS NASOPHARYN GEAL - [facility] SPECIMEN ONLYon 07-12-2020 SARS-COV-2 NOT DETECTED Normal NOT DETECTED [facility] Comment on above: Order Comment: Viral transport media - Collection must be done while wearing N-95 mask, eye protection, gown and gloves. Please label ALL specimens as 2019-nCoV rule out and deliver by hand. This test was performed using [employer] and has been approved as Emergency Use Authorization (EUA) for the qualitative detection of SARS-CoV-2 nucleic acid. Result Comment: Nega tive results do not preclude SARS-CoV-2 infection and should not be used as the sole basis for treatment or other patient management decisions. Optimum specimen types and timing for peak viral levels during infections caused by SARS-CoV-2 has not been determined. The possibility of a false negative result should especially be considered if the patient's recent exposures or clinical presentation suggest that SARS-CoV-2 infection is probable, and diagnostic tests for other causes of illness (e.g., other respiratory illness) are negative. Collection of a new specimen and re-testing may be necessary if the patient is critically ill or clinically deteriorating. Performed By: #### L [id number] #### [facility] (DEFAULT) [address] [address] NOVEL CORONAVIRUS NASOPHARYN GEAL - [facility] SPECIMEN ONLYon 05-25-2020 SARS-COV-2 NOT DETECTED Normal NOT DETECTED [facility] Comment on above: Order Comment: Viral transport media - Collection must be done while wearing N-95 mask, eye protection, gown and gloves. Please label ALL specimens as 2019-nCoV rule out and deliver by hand. This test was performed using performed using real time PCR for the qualitative detection of SARS-CoV-2 nucleic acid and has been approved as Emergency Use Authorization (EUA) for the qualitative detection of SARS-CoV-2 nucleic acid. Result Comment: Nega tive results do not preclude SARS-CoV-2 infection and should not be used as the sole basis for treatment or other patient management decisions. Optimum specimen types and timing for peak viral levels during infections caused by SARS-CoV-2 has not been determined. The possibility of a false negative result should especially be considered if the patient's recent exposures or clinical presentation suggest that SARS-CoV-2 infection is probable, and diagnostic tests for other causes of illness (e.g., other respiratory illness) are negative. Collection of a new specimen and re-testing may be necessary if the patient is critically ill or clinically deteriorating. Performed By: #### L [id number] #### [facility] (DEFAULT) [address] [address] ABDOMEN OR KUBon 04-03-2020 ABDOMEN OR KUB ABDOMEN OR KUB Ordering Physician: Tiffanie Anderson MD 04/03/2020 8:07 AM SPINE ABDOMEN: Clinical Statement: Kidney stones Comparison: Supine abdomen 03/26/2020 FINDINGS: A five calculus is again noted in the right kidney, it is stable. There is a left ureteral stent in stable and satisfactory position. The number of calcifications in the left kidney has decreased. Calcifications remain near the proximal end of the stent and within the inferior pole of the left kidney. There are several calcifications within the proximal left ureter. iMPRESSION: Persistent but decreased in number left renal stones. Multiple left ureteral stones Stable right kidney stone ---- Electronic Signature on File ---- Signed By: Mac Astorga MD [email or web address] Dictated: 04/03/2020 8:42 AM Signed: 04/03/2020 8:46 AM Reported By: MAC ASTORGA M.D. Signed By: MAC ASTORGA M.D. [facility] ABDOMEN OR KUBon 03-26-2020 ABDOMEN OR KUB ABDOMEN OR KUB Ordering Physician: Tiffanie Anderson MD 03/26/2020 5:34 AM ABDOMEN/KUB: Clinical Statement: Left renal stones Comparison: KUB 03/13/2020 FINDINGS: Stable positioning of a left ureter stent is noted. Stones in the left kidney are again shown measuring up to 7 mm. They appear to have migrated towards the left renal pelvis. There is a couple stones in the proximal left ureter. A stone along the distal portion of the left ureteral stent is again noted in stable position. There are no calculi referrable to the right urinary tract. The previously identified calcification the right hemipelvis appear stable, likely phleboliths. No obstructive bowel gas pattern is demonstrated. There is no supine evidence of pneumoperitoneum. Degenerative changes of the spine are again noted. IMPRESSION: Stable left ureteral stent. Multiple left renal calculi measuring up to 7 mm as prescribed above. Stat report was dictated and sent to the referring physician. Dictated by Sales Force Administrator: Manuel Ventura MD Reviewed and Signed by: Mac Astorga MD ---- Electronic Signature on File ---- Signed By: Mac Astorga MD [email or web address] Dictated: 03/26/2020 6:01 AM Signed: 03/26/2020 8:45 AM Reported By: MAC ASTORGA M.D. Signed By: MAC ASTORGA M.D. Normal [facility] [place] GLUCOSE METERon 03-26-2020 Glucose [Mass/Vol] 129 mg/dL High 85-125 [facility] [place] Glucose [Mass/Vol] 124 mg/dL Normal 85-125 [facility] [place] ORon 06-22-2020 OPERATIVE REPORT Normal [facility] OR DATE OF SERVICE: PREOPERATIVE DIAGNOSIS: Left ureteral and left kidney stones. POSTOPERATIVE DIAGNOSIS: Left ureteral and left kidney stones. OPERATION: Left extracorporeal shockwave lithotripsy for the kidney stone and ureteroscopy and ureteral lithotripsy and stent exchange for the ureteral and for the remaining kidney stones. SURGEON: Tiffanie Anderson MD PROCEDURE: Patient was put in supine position. The lower stone was visualized, and it was about 8 or 9 mm. Two views were obtained, and the stone was targeted with 2500 shocks, intensity between 6 and 7 and frequency at 90 shockwaves per minute. The stone was seen adequately fragmented. Then to address the ureteral stone and the remaining stones to the kidney, which there were still many of them, a ureteroscopy has been decided. At this point, the patient was put in lithotomy position, prepped and draped and cystoscopy was done. Bladder was run with no tumors seen, no stones seen. The left stent was pulled out completely, and a guidewire was [facility] PATIENT NAME: NICK SAN [facility] Dr. Mccauley MEDICAL REC #: [id number] [place] [address] ADMIT DATE: DISCHARGE DATE: OPERATIVE REPORT ATTENDING PHY: Tiffanie Anderson MD placed through the left orifice. The access sheath was patent and was placed over the wire, and flexible ureteroscopy was done. The stone in the ureter was targeted with the holmium laser and then there were multiple stones in the kidney at different calices, which were also targeted with the holmium laser, obtaining good fragmentation. At this point, the access sheath was removed, leaving behind the guidewire and double-J stent was placed over the wire. After appropriate positioning of the double-J stent, wire and pusher were both removed. The bladder was emptied, the scope was removed, and patient tolerated the procedure well and was taken to the recovery room in satisfactory condition. Estimated blood loss about 5 mL. Tiffanie Anderson MD BT/[id number] [facility] File#: [id number] [facility] PATIENT NAME: NICK SAN Hilary Mccauley MEDICAL REC #: [id number] [place] [address] ADMIT DATE: DISCHARGE DATE: OPERATIVE REPORT ATTENDING PHY: Tiffanie Anderson MD END OF DOCUMENT / CHANGE LOG FOLLOWS Last Edited By Elec. Signed By Tiffanie Anderson MD #TABBE Tiffanie Anderson MD #TABEMILY on 04/16/2020 08:45 ET on 04/16/2020 08:45 ET Revision Number - 2 Verified/Reviewed by 04/16/20 0845 LOUIE [facility] PATIENT NAME: NICK SAN Hilary Mccauley MEDICAL REC #: [id number] [place] [address] ADMIT DATE: DISCHARGE DATE: OPERATIVE REPORT ATTENDING PHY: Tiffanie Anderson MD [facility]2020 ABDOMEN OR KUB ABDOMEN OR KUB Ordering Physician: Tiffanie Anderson MD 03/13/2020 4:59 PM ABDOMEN/KUB Clinical Statement: Kidney stones, left ureteral stent Comparison: Abdomen radiograph March 07, 2020 FINDINGS: Two supine views of the abdomen were acquired. There is stable positioning of the left ureteral stent. There are multiple stones along the proximal aspect of the stent, decreased in number from the prior study. Additionally, there is a stone along the distal portion of the stent, superimposed on the inferior aspect of the sacrum. Several of the prior proximal ureteral stones have migrated retrograde into the upper pole of the left kidney. Lower pole left renal calculi relatively stable. No radiopaque right renal calculi are shown. There are multiple right pelvic calcifications likely reflecting phleboliths, unchanged. There is a nonspecific, nonobstructed bowel gas distribution. Similar severe degenerative is are present within the spine. Included lung bases are clear. IMPRESSION: Stable left ureteral stent. Multiple stones along the proximal portion of the ureteral stent, some of which have migrated retrograde into the left kidney. Stable distal left ureteral stone Nonobstructed bowel gas distribution. ---- Electronic Signature on File ---- Signed By: Setvenson Dorado MD [email or web address] Dictated: 03/13/2020 6:07 PM Signed: 03/13/2020 6:10 PM Reported By: STEVENSON DORADO M.D. Signed By: STEVENSON DORADO M.D. [facility]-07-2020 ABDOMEN OR KUB ABDOMEN OR KUB Ordering Physician: Tiffanie Anderson MD 03/07/2020 5:04 PM ABDOMEN Clinical Statement: Renal calculi FINDINGS: 3 images of the abdomen were obtained and compared to a previous study dated 03/01/2020. There is a left ureteral stent appears in good position. Calculi are again identified at the lower pole of the left kidney and along the proximal aspect of the stent. The calculi at the proximal aspect of the stent have migrated into the L3-4 level Calculi are also identified along the distal aspect of the stent at the level of the SI joint inferiorly. There are phleboliths in the pelvis. The bowel gas pattern is unremarkable. There is a small density overlying the lower pole of the right kidney measuring 5 mm which may be due to a calculus. IMPRESSION: The left ureteral stent appears in good position. There are multiple calculi along the stent as well as the lower pole of the left kidney. It is noted that some of the proximal calculi along the stent has migrated to the L3-4 level. ---- Electronic Signature on File ---- Signed By: Claudine Pickett MD FACR [email or web address] Dictated: 03/07/2020 5:19 PM Signed: 03/07/2020 5:22 PM Reported By: CLAUDINE PICKETT M.D. Signed By: CLAUDINE PICKETT M.D. [facility] [place] ABDOMEN OR KUBon 03-01-2020 ABDOMEN OR KUB ABDOMEN OR KUB Ordering Physician: Tiffanie Anderson MD 03/01/2020 7:37 AM ABDOMEN/KUB (TWO IMAGES): Clinical Statement: Left renal stone Comparison: Abdomen/KUB 02/14/2020. FINDINGS: Bilateral lung bases are grossly unremarkable. Nonobstructive bowel gas pattern. No supine free air. No portal venous gas. Abdominal fat planes are intact. No obvious organomegaly. Small to moderate amount of colonic fecal material is identified, especially within the proximal colon and the hepatic flexure. No definite right renal or ureteral calculi. Pelvic phleboliths are unchanged. A left-sided ureteral stent is unchanged. The number of the calculi within the cluster along the proximal portion of the left ureteral stent has decreased. Some of the calculi have migrated distally as follows: A calculus 6 mm calculus is noted along the left mid ureter at the level of the upper L4 vertebral body. A tiny 1 mm calculus is noted within the urinary bladder, inferior to the inferior pigtail of the ureteral stent. Two calculi are noted along the left distal ureter overlying the left mid sacrum measuring approximately 6 mm and 3 mm respectively, similar to prior exam. The number of left renal calculi appear increased since prior exam, likely due to proximal migration of some of the calculi of the above-described cluster. IMPRESSION: 1. A left-sided ureteral stent is unchanged. 2. The number of the calculi within the cluster along the proximal portion of the left ureteral stent has decreased. Some of the calculi have migrated distally as follows: A calculus 6 mm calculus is noted along the left mid ureter at the level of the upper L4 vertebral body. A tiny 1 mm calculus is noted within the urinary bladder, inferior to the inferior pigtail of the ureteral stent. 3. Two calculi are noted along the left distal ureter overlying the left mid sacrum measuring approximately 6 mm and 3 mm respectively, similar to prior exam. 4. The number of left renal calculi appear increased since prior exam, likely due to proximal migration of some of the calculi of the above-described cluster. ---- Electronic Signature on File ---- Signed By: Charissa Dang MD [email or web address] Dictated: 03/01/2020 7:57 AM Signed: 03/01/2020 8:03 AM Reported By: CHARISSA DANG M.D. Signed By: CHARISSA DANG M.D. Normal [facility] GLUCOSE METERon 03-01-2020 Glucose [Mass/Vol] 140 mg/dL High 85-125 [facility] ORon 03-01-2020 OPERATIVE REPORT Normal [facility] OR DATE OF SERVICE: PREOPERATIVE DIAGNOSIS: Left ureteral stone and left kidney stone. POSTOPERATIVE DIAGNOSIS: Left ureteral stone and left kidney stone. OPERATION: Cystoscopy, left stent exchange, left ureteroscopy with holmium laser lithotripsy and left extracorporeal shockwave lithotripsy for the kidney stones. SURGEON: Tiffanie Anderson MD PROCEDURE: Patient was put in lithotomy position, prepped and draped. Cystoscopy was done. The prostate was enlarged. Bladder was entered. there was evidence of the stent which was coming out of the left side of the ureteral orifice. Stent was pulled out senior care and it was stuck and I was unable to pull it out completely, so a guidewire was placed alongside the stent and the uteroscopy was done alongside the stent and the stent was stuck at the level of the stone, which was in the ureter, in the upper portion of the ureter. Holmium laser lithotripsy was done on that stone and it was fragmented into small pieces. That did free the stent and the stent came out in total. [facility] PATIENT NAME: NICK SAN Hilary Mccauley MEDICAL REC #: [id number] [place] [address] ADMIT DATE: DISCHARGE DATE: OPERATIVE REPORT ATTENDING PHY: Tiffanie Anderson MD Then, another stent was placed using a guidewire and the stent was placed in the left collecting system. After proper positioning the patient was put back in supine position. Attention was then focused towards the kidney stones. There was evidence of 3 groups of stones, 1 in the middle pole of the kidney and 1 in the upper pole and the bigger one in the lower pole. Then 2500 shocks were administered to the middle kidney stones. The stone was adequately fragmented and it seemed that the stone was quite hard to break and hopefully it did break that midpole stone good enough to be able to take the stent out. The upper and lower caliceal stones were not targeted since the total amount of allowable shock waves were already administered to the mid pole kidney stones. At this point the procedure was ended. The patient tolerated the procedure well and was taken to the recovery room in satisfactory condition. Tiffanie Anderson MD [facility] PATIENT NAME: NICK SAN [facility] MEDICAL REC #: [id number] [place] [address] ADMIT DATE: DISCHARGE DATE: OPERATIVE REPORT ATTENDING PHY: Tiffanie Anderson MD /[id number] [facility] File#: [id number] END OF DOCUMENT / CHANGE LOG FOLLOWS Last Edited By Elec. Signed By Tiffanie Anderson MD #TABBE Tiffanie Anderson MD #LOUIE on 03/12/2020 10:38 ET on 03/12/2020 10:38 ET Revision Number - 2 Verified/Reviewed by 03/12/20 Amanda PALMA [facility] PATIENT NAME: NICK SAN [facility] Dr[address] Mccauley MEDICAL REC #: [id number] [place] [address] ADMIT DATE: DISCHARGE DATE: OPERATIVE REPORT ATTENDING PHY: Tiffanie Anderson MD [facility] 02-14-2020 ABDOMEN OR KUB ABDOMEN OR KUB Ordering Physician: Tiffanie Anderson MD 02/14/2020 7:11 AM KUB OF THE ABDOMEN Clinical Statement: Kidney stones. Comparison 02/02/2020. FINDINGS: Left-sided ureteral stent is in unchanged position. Multiple left renal calculi including a cluster of calcifications at the expected location of the ureteropelvic junction measuring up to 7 mm in diameter. These are more numerous than shown on the prior study. There is left-sided nephrolithiasis as well but this is improved from the prior study with the 9 mm calculus shown on the prior study much smaller in size. There are possible calculi along the distal aspect of the stent at the level of the inferior sacrum versus osseous density. No definite right renal calculi. Likely phleboliths within the pelvis on the right side are unchanged. Bowel gas pattern is unremarkable. Moderate spondylosis within the spine. IMPRESSION: Left-sided ureteral stent is in unchanged position with cluster of calculi at the level of the ureteropelvic junction. Left nephrolithiasis ---- Electronic Signature on File ---- Signed By: Sivakumar Guerra MD [email or web address] Dictated: 02/14/2020 7:56 AM Signed: 02/14/2020 1:28 PM Reported By: SIVAKUMAR GUERRA M.D. Signed By: SIVAKUMAR GUERRA M.D. [facility] ABDOMEN OR KUBon 02-02-2020 ABDOMEN OR KUB ABDOMEN OR KUB Ordering Physician: Tiffanie Anderson MD 02/02/2020 9:58 AM KUB OF THE ABDOMEN Clinical Statement: Kidney stones. Comparison 01/26/2020. FINDINGS: Left-sided ureteral stent is in unchanged position. Multiple calculi are noted along the course of the stent at the proximal aspect of the left ureter at about the level the L3-4 disk. There is left nephrolithiasis measuring up to 9 mm, decreased from the prior study. Bowel gas pattern is unremarkable. There is moderate spondylosis within the lumbar spine. Lung bases are free of consolidation. IMPRESSION: Left-sided ureteral stent in unchanged position with multiple calculi along the stent at the level the proximal ureter measuring up to 8mm in size. Left nephrolithiasis, improved from the prior study. ---- Electronic Signature on File ---- Signed By: Sivakumar Guerra MD [email or web address] Dictated: 02/02/2020 10:43 AM Signed: 02/02/2020 10:46 AM Reported By: SIVAKUMAR GUERRA M.D. Signed By: SIVAKUMAR GUERRA M.D. [facility] ABDOMEN OR KUBon 01-26-2020 ABDOMEN OR KUB ABDOMEN OR KUB Ordering Physician: Tiffanie Anderson MD 01/26/2020 5:29 AM ABDOMEN/KUB: Clinical Statement: Left renal stone Comparison: Abdominal radiograph 01/12/2020 FINDINGS: A left nephroureteral stent is unchanged in position. There are a few calculi projecting over the left kidney, not significantly change from prior exam. The largest projects over the inferior left renal pole, and measures 1.1 cm in greatest dimension. Differences in size compared to prior exam likely relates to differing planar positioning of the kidney. There is a 9 mm calculus adjacent to the proximal ureteral stent at the level of L3-4. A few rounded opacities in the right pelvis likely represent phleboliths. Nonobstructive bowel gas pattern. Mild degenerative changes of the thoracolumbar spine are noted. IMPRESSION: Unchanged left nephrolithiasis, and proximal left ureteral 9 mm calculus. Dictated by Sales Force Administrator: Mono Vega MD Reviewed by Radiologist: Sivakumar Guerra MD ---- Electronic Signature on File ---- Signed By: Sivakumar Guerra MD [email or web address] Dictated: 01/26/2020 6:02 AM Signed: 01/26/2020 7:26 AM Reported By: SIVAKUMAR GUERRA M.D. Signed By: SIVAKUMAR GUERRA M.D. Normal [facility] GLUCOSE METERon 01-26-2020 Glucose [Mass/Vol] 127 mg/dL [facility] 85-[facility] OPERATIVE REPORT Normal [facility] OR DATE OF SERVICE: PREOPERATIVE DIAGNOSIS: Left renal and left ureteral calculi. POSTOPERATIVE DIAGNOSIS: Left renal calculi. OPERATION: Left extracorporeal shockwave lithotripsy. SURGEON: Tiffanie Anderson MD DESCRIPTION OF PROCEDURE: The patient was put in supine position. A KUB was obtained prior to the procedure which showed the stone in the left ureter being in the upper portion of the left ureter, and there were also 2 stones in the left kidney as well. The larger one is about 12 mm and the stone in the ureter was about 8 to 9 mm. Upon performing fluoroscopy, it was noted that the stone, which was in the upper ureter did move back into the kidney. At this point, there were actually 3 stones. The one in the middle pole about 5 to 6 mm was targeted with 1250 shockwaves with intensity between 5 and 6, and frequency at 90 shockwaves per minute. The stone in the most dependent portion of the left kidney, which was previously in the left [facility] PATIENT NAME: NICK SAN [address] [facility] [address] Mccauley MEDICAL REC #: [id number] [place] [address] ADMIT DATE: DISCHARGE DATE: OPERATIVE REPORT ATTENDING PHY: Tiffanie Anderson MD ureter, was targeted with another 1250 shockwaves with intensity between 5 and 6, and frequency at 90 shockwaves per minute. The larger one of 12 mm was not targeted since it was a big stone and it could not its way out any time soon, and the patient already had a stent. The patient tolerated the procedure well and taken to the recovery room in satisfactory condition. Tiffanie Anderson MD BT/[id number] [facility] File#: [id number] END OF DOCUMENT / CHANGE LOG FOLLOWS Last Edited By Elec. Signed By Tiffanie Anderson MD #KEVINBE Tiffanie Anderson MD on 02/13/2020 10:14 ET on 02/13/2020 10:14 ET Revision Number - 2 [facility] PAT[facility] MED[facility] REC #: [id number] [place] [address] ADMIT DATE: DISCHARGE DATE: OPERATIVE REPORT ATTENDING PHY: Tiffanie Anderson MD Verified/Reviewed by 02/13/20 1014 TABEMILY [facility] PATIENT NAME: NICK SAN [facility] Dr[address] Mccauley MEDICAL REC #: [id number] [place] [address] ADMIT DATE: DISCHARGE DATE: OPERATIVE REPORT ATTENDING PHY: Tiffanie Anderson MD [facility] 01-12-2020 ABDOMEN OR KUB ABDOMEN OR KUB Ordering Physician: Tiffanie Anderson MD 01/12/2020 9:49 AM ABDOMEN/KUB, TWO VIEWS Clinical Statement: Kidney stones, left ureteral stent Comparison: Abdomen December 13, 2019 FINDINGS: Two supine views of the abdomen were acquired. There is stable positioning of the left double-J ureteral stent. There is stable 10 mm calculus adjacent to the proximal stent, overlying the psoas shadow at the L3-4 disk space level. There are multiple stable calculi throughout the left kidney ranging in size from 3 mm to 14 mm. Probable subtle right nephrolithiasis is redemonstrated without a discrete or measurable stone. There are stable right pelvic phleboliths. There is a normal bowel gas distribution. The peritoneal fascial planes are maintained. There is mild stool burden throughout the colon. The included lung bases are clear. There is moderate to severe degenerative changes throughout the lower thoracic and lumbar spine. IMPRESSION: Stable abdominal radiograph. Stable left ureteral stent. Stable 10 mm proximal left ureteral stone at the L3-4 disk space level Stable left nephrolithiasis. ---- Electronic Signature on File ---- Signed By: Stevenson Dorado MD [email or web address] Dictated: 01/12/2020 11:38 AM Signed: 01/12/2020 11:41 AM Reported By: STEVENSON DORADO M.D. Signed By: STEVENSON DORADO M.D. [facility] [place] ABDOMEN OR KUBon 12-13-2019 ABDOMEN OR KUB ABDOMEN OR KUB Ordering Physician: Tiffanie Anderson MD 12/13/2019 10:55 AM ABDOMEN/KUB: Clinical Statement: Kidney stones Comparison: 12/05/2019. FINDINGS: Nonobstructive bowel gas pattern. No supine evidence of intra-abdominal free air. No portal venous gas. Abdominal fat planes are intact. Moderate to moderate amount of colonic fecal material is identified. There is interval placement of a left ureteral stent. Interval new left proximal ureteral calculus is identified adjacent to the left ureteral stent at the L3-L4 disk level, measuring approximately 9 mm in length. This has probably migrated distally from the left renal upper pole. The overall degree of left-sided nephrolithiasis has mildly decreased since prior exam. No right renal calculi or right ureteral calculi. Pelvic phleboliths are unchanged. Degenerative changes of the spine and hip joints are noted. IMPRESSION: 1. There is interval placement of a left ureteral stent. 2. Interval new left proximal ureteral calculus is identified adjacent to the left ureteral stent at the L3-L4 disk level, measuring approximately 9 mm in length. This has probably migrated distally from the left renal upper pole. 3. The overall degree of left-sided nephrolithiasis has mildly decreased since prior exam. 4. No right renal calculi or right ureteral calculi. ---- Electronic Signature on File ---- Signed By: Charissa Dang MD [email or web address] Dictated: 12/13/2019 12:00 PM Signed: 12/13/2019 12:03 PM Reported By: CHARISSA DANG M.D. Signed By: CHARISSA DANG M.D. Normal [facility] [place] ABDOMEN OR KUBon 12-05-2019 ABDOMEN OR KUB ABDOMEN OR KUB Ordering Physician: Tiffanie Anderson MD 12/05/2019 7:16 AM SPINE ABDOMEN: Clinical Statement: Left renal stones Comparison: Spine abdomen 10/25/2019 FINDINGS: Multiple stones are again seen within the left kidney the largest is in the inferior pole and measures approximately 1.4 cm in size. No right kidney stones are noted. Calcifications in the right side of the pelvis are consistent with phleboliths. The bowel gas pattern is within normal limits. There is multilevel degenerative disk disease. IMPRESSION: Multiple left-sided kidney stones are again noted measuring up to 1.4 cm in size ---- Electronic Signature on File ---- Signed By: Mac Astorga MD [email or web address] Dictated: 12/05/2019 7:42 AM Signed: 12/05/2019 7:44 AM Reported By: MAC ASTORGA M.D. Signed By: MAC ASTORGA M.D. Normal [facility] GLUCOSE METERon 12-05-2019 Glucose [Mass/Vol] 108 mg/dL Normal 85-125 [facility] ORon 12-05-2019 OPERATIVE REPORT Normal [facility] OR DATE OF SERVICE: 11/2019 PREOPERATIVE DIAGNOSIS: Left renal calculi, one in the renal pelvis and a larger one in the lower pole. POSTOPERATIVE DIAGNOSIS: Left renal calculi, one in the renal pelvis and a larger one in the lower pole. OPERATION: Left extracorporeal shock wave lithotripsy mainly focusing on the renal pelvic calculi, and stent insertion. SURGEON: iTffanie Anderson MD DESCRIPTION OF PROCEDURE: The patient was put in lithotomy position, prepped and draped. Cystoscopy was done. Urethra was normal. Prostate was slightly enlarged. Bladder was entered and no tumor seen. No stone seen. The orifices were normal. Glidewire was placed into the left ureteral orifice and a stent was placed on the left side using a No. 26-cm 6-Belarusian. After proper positioning of the stent, the bladder was emptied and the scope was removed after removing and guidewire. [facility] PATIENT NAME: NICK SAN [address] [facility] [address] Mccauley MEDICAL REC #: [id number] [place] [address] ADMIT DATE: DISCHARGE DATE: OPERATIVE REPORT ATTENDING PHY: Tiffanie Anderson MD The patient was put in supine position. The left renal calculi at the level of the renal pelvis was identified with 2 different views, 1 AP and 1 lateral. The stone was targeted with 2500 shocks, intensity between 6 and 7, and the frequency at 90 shockwaves per minute. The stone was seen, adequately fragmented and the procedure was ended. The patient tolerated the procedure well and taken to the recovery room in satisfactory condition. Tiffanie Anderson MD [id number] [facility] File#: [id number] END OF DOCUMENT / CHANGE LOG FOLLOWS Last Edited By [employer]. Signed By Tiffanie Anderson MD #KEVINBE Tiffanie Anderson MD #TABEMILY on 02/13/2020 10:47 ET on 02/13/2020 10:47 ET Revision Number - 2 [facility] #: [id number] [place] [address] ADMIT DATE: DISCHARGE DATE: OPERATIVE REPORT ATTENDING PHY: Tiffanie Anderson MD Verified/Reviewed by 02/13/20 Muna PALMA [facility] PATIENT NAME: [facility] MEDICAL REC #: [id number] [place] [address] ADMIT DATE: DISCHARGE DATE: OPERATIVE REPORT ATTENDING PHY: Tiffanie Anderson MD [facility] US KIDNEYon 11-08-2019 KIDNEY US KIDNEY Ordering Physician: Tiffanie Anderson MD 11/08/2019 9:37 AM ULTRASOUND KIDNEYS Clinical Statement: Calculus of kidney, patient states history of kidney stones, hypertension and diabetes Comparison: Lumbar spine radiograph October 28, 2019, abdomen radiograph October 25, 2019, ultrasound kidney November 02, [address] September 11, 2013 FINDINGS: The right and left kidneys measure 12.8 x 4.8 x 5.3 cm and 13.8 x 7.3 x 5.3 cm respectively. The renal cortical echotexture and thickness appears appropriate for age. There is no hydronephrosis or perinephric fluid. No discrete renal cortical mass. There is a 16 mm left renal peripelvic cyst with no complicating features. There is left nephrolithiasis including a 11 mm and 10 mm intrarenal calculi in the lower and upper pole respectively. No definite right nephrolithiasis. IMPRESSION: Left nephrolithiasis. No hydronephrosis/obstructive uropathy. Negative right kidney. ---- Electronic Signature on File ---- Signed By: Stevenson Dorado MD [email or web address] Dictated: 11/08/2019 10:06 AM Signed: 11/08/2019 10:09 AM Reported By: STEVENSON DORADO M.D. Signed By: STEVENSON DORADO M.D. [facility] LUMBAR SPINE 2 OR 3 Son LUMBAR SPINE 2 OR 3 VWS LUMBAR SPINE 2 OR 3 VWS Ordering Physician: Francis Guerrero DC 10/28/2019 9:59 AM LUMBAR SPINE THREE VIEWS: Clinical Statement: Lumbago with bilateral leg pain Comparison: 06/17/2008 FINDINGS: There are five lumbar-type vertebra. Since the previous study there is been progression of endplate spurring and diffuse loss of disk height. No spondylolisthesis. There is facet arthropathy greatest at L5-S1. No lytic or sclerotic lesions. There are multiple left-sided renal stones. IMPRESSION: Progressive degenerative disk disease. Left renal stones. ---- Electronic Signature on File ---- Signed By: King Fry MD PhD [email or web address] Dictated: 10/28/2019 10:38 AM Signed: 10/28/2019 10:41 AM Reported By: KING FRY M.D. Signed By: KING FRY M.D. [facility] ABDOMEN OR KUBon 10-25-2019 ABDOMEN OR KUB ABDOMEN OR KUB Ordering Physician: Tiffanie Anderson MD 10/25/2019 9:44 AM KUB OF THE ABDOMEN Clinical Statement: Kidney stones. Comparison CT scan 09/11/2013. FINDINGS: Multiple left renal calculi are noted measuring up to 12 mm at the lower pole and up to about 11 mm at the midportion. There are other smaller renal calculi. No right renal calculi are shown. No definite ureteral calculi are shown. Multiple calcifications within the pelvis are likely vascular. Bowel gas pattern is unremarkable. Degenerative changes are noted within the lumbar spine. IMPRESSION: Multiple left renal calculi measuring up to 12 mm. No right renal or ureteral calculi are shown. ---- Electronic Signature on File ---- Signed By: Sivakumar Guerra MD [email or web address] Dictated: 10/25/2019 10:04 AM Signed: 10/25/2019 10:06 AM Reported By: SIVAKUMAR GUERRA M.D. Signed By: SIVAKUMAR GUERRA M.D. [facility] Vital Signs Date Time Vital Sign Value Performing Clinician Morgan schreiber 05-29-2025 15:23-0400 Body temperature 98.1 [degF] DEFINED NOT [facility] 05-29-2025 15:23-0400 Diastolic blood pressure 87 mm[Hg] DEFINED NOT [facility] 05-29-2025 15:23-0400 Heart rate 59 /min DEFINED NOT [facility] 05-29-2025 15:23-0400 Respiratory rate 18 /min DEFINED NOT [facility] 05-29-2025 15:23-0400 SaO2% (BldA) [Mass fraction] 94 % DEFINED NOT [facility] 05-29-2025 15:23-0400 Systolic blood pressure 148 mm[Hg] DEFINED NOT [facility] 05-26-2025 16:06-0400 Body height 182.88 cm DEFINED NOT [facility] 05-26-2025 16:06-0400 Body mass index (BMI) [Ratio] 26.6 kg/m2 DEFINED NOT [facility] 05-26-2025 16:06-0400 Body weight 89.2 kg DEFINED [facility] 05-26-2025 15:02-0400 Body temperature 97.9 [degF] DEFINED NOT [facility] 05-26-2025 15:02-0400 Diastolic blood pressure 85 mm[Hg] DEFINED NOT [facility] 05-26-2025 15:02-0400 Heart rate 63 /min DEFINED NOT [facility] 05-26-2025 15:02-0400 Respiratory rate 22 /min DEFINED NOT [facility] 05-26-2025 15:02-0400 SaO2% (BldA) [Mass fraction] 93 % DEFINED NOT [facility] 05-26-2025 15:02-0400 Systolic blood pressure 136 mm[Hg] DEFINED [facility] 05-26-2025 10:29-0400 Body height 182.88 cm DEFINED NOT [facility] 05-02-2025 14:39-0400 Body height 174 cm Pacc 2 Work Phone: [facility] 05-02-2025 14:39-0400 Body mass index (BMI) [Ratio] 30.16 kg/m2 Pacc 2 Work Phone: [facility] 05-02-2025 14:39-0400 Body temperature 97.81 [degF] Pacc 2 Work Phone: [facility] 05-02-2025 14:39-0400 Body weight 91.3 kg Pacc 2 Work Phone: [facility] 05-02-2025 14:39-0400 Diastolic blood pressure 67 mm[Hg] Pacc 2 Work Phone: [facility] 05-02-2025 14:39-0400 Heart rate 68 /min Pacc 2 Work Phone: [facility] 05-02-2025 14:39-0400 Respiratory rate 20 /min Pacc 2 Work Phone: [facility] 05-02-2025 14:39-0400 SaO2% (BldA) [Mass fraction] 97 % Pacc 2 Work Phone: [facility] 05-02-2025 14:39-0400 Systolic blood pressure 113 mm[Hg] Pacc 2 Work Phone: [facility] 05-02-2025 12:48-0400 Body height 182.9 cm Valorie Ayala MD Work Phone: [facility] 05-02-2025 12:48-0400 Body mass index (BMI) [Ratio] 26.91 kg/m2 Valorie Ayala MD Work Phone: [facility] 05-02-2025 12:48-0400 Body weight 90 kg Valorie Ayala MD Work Phone: [facility] 05-02-2025 12:48-0400 Diastolic blood pressure 79 mm[Hg] Valorie Ayala MD Work Phone: [facility] 05-02-2025 12:48-0400 Heart rate 70 /min Valorie Ayala MD Work Phone: [facility] 05-02-2025 12:48-0400 SaO2% (BldA) [Mass fraction] 96 % Valorie Ayala MD Work Phone: [facility] 05-02-2025 12:48-0400 Systolic blood pressure 119 mm[Hg] Valorie Ayala MD Work Phone: [facility] 04-26-2025 13:43-0400 Body height 182.9 cm Gail-Jaja Ritzert PA-C Work Phone: [facility] 04-26-2025 13:43-0400 Body mass index (BMI) [Ratio] 27.12 kg/m2 Gail-Jaja Ritzert PA-C Work Phone: [facility] 04-26-2025 13:43-0400 Body weight 90.72 kg Gail-Jaja Ritzert PA-C Work Phone: [facility] 03-27-2025 09:41-0400 Body mass index (BMI) [Ratio] 28.83 kg/m2 Miranda Del Rio MD Work Phone: [facility] 03-27-2025 09:41-0400 Body weight 92.45 kg Miranda Del Rio MD Work Phone: [facility] 03-27-2025 09:41-0400 Diastolic blood pressure 72 mm[Hg] Miranda Del Rio MD Work Phone: [facility] 03-27-2025 09:41-0400 Heart rate 63 /min Miranda Del Rio MD Work Phone: [facility] 03-27-2025 09:41-0400 SaO2% (BldA) [Mass fraction] 98 % Miranda Del Rio MD Work Phone: [facility] 03-27-2025 09:41-0400 Systolic blood pressure 108 mm[Hg] Miranda Del Rio MD Work Phone: [facility] 03-14-2025 08:09-0400 Body mass index (BMI) [Ratio] 28.82 kg/m2 Tammi Garcia DO Work Phone: [facility] 03-14-2025 08:09-0400 Body weight 92.4 kg Tammi Garcia DO Work Phone: [facility] 03-14-2025 08:09-0400 Diastolic blood pressure 58 mm[Hg] Tammi Garcia DO Work Phone: [facility] 03-14-2025 08:09-0400 Heart rate 60 /min Tammi Garcia DO Work Phone: [facility] 03-14-2025 08:09-0400 SaO2% (BldA) [Mass fraction] 97 % Tammi Garcia DO Work Phone: [facility] 03-14-2025 08:09-0400 Systolic blood pressure 96 mm[Hg] Tammi Garcia DO Work Phone: [facility] 03-13-2025 15:18-0400 Diastolic blood pressure 84 mm[Hg] DEFINED NOT [facility] 03-13-2025 15:18-0400 Heart rate 60 /min DEFINED NOT [facility] 03-13-2025 15:18-0400 Respiratory rate 16 /min DEFINED NOT [facility] 03-13-2025 15:18-0400 SaO2% (BldA) [Mass fraction] 98 % DEFINED NOT [facility] 03-13-2025 15:18-0400 Systolic blood pressure 122 mm[Hg] DEFINED NOT [facility] 02-20-2025 08:06-0400 Diastolic blood pressure 75 mm[Hg] Leon Huynh OTR/L Work Phone: [facility] 02-20-2025 08:06-0400 Heart rate 58 /min Leon Huynh OTR/L Work Phone: [facility] 02-20-2025 08:06-0400 Systolic blood pressure 113 mm[Hg] Leon Huynh OTR/L Work Phone: [facility] 2025 08:40-0400 Body height 182.88 cm DEFINED NOT [facility] 2025 08:40-0400 Body mass index (BMI) [Ratio] 27.3 kg/m2 DEFINED NOT [facility] 2025 08:40-0400 Body temperature 97.7 [degF] DEFINED NOT [facility] 2025 08:40-0400 Body weight 91.62 kg DEFINED NOT [facility] 2025 08:40-0400 Diastolic blood pressure 100 mm[Hg] DEFINED NOT [facility] 2025 08:40-0400 Heart rate 78 /min DEFINED [facility] 2025 08:40-0400 Respiratory rate 16 /min DEFINED NOT [facility] 2025 08:40-0400 SaO2% (BldA) [Mass fraction] 97 % DEFINED [facility] 2025 08:40-0400 Systolic blood pressure 136 mm[Hg] DEFINED NOT [facility] 02-06-2025 12:59-0400 Body mass index (BMI) [Ratio] 28.53 kg/m2 Alecia Enamorado MD Work Phone: [facility] 02-06-2025 12:59-0400 Body temperature 97.5 [degF] Alecia Enamorado MD Work Phone: [facility] 02-06-2025 12:59-0400 Body weight 91.5 kg Alecia Enamorado MD Work Phone: [facility] 02-06-2025 12:59-0400 Diastolic blood pressure 82 mm[Hg] Alecia Enamorado MD Work Phone: [facility] 02-06-2025 12:59-0400 Heart rate 89 /min Alecia Enamorado MD Work Phone: [facility] 02-06-2025 12:59-0400 Respiratory rate 16 /min Alecia Enamorado MD Work Phone: [facility] 02-06-2025 12:59-0400 SaO2% (BldA) [Mass fraction] 94 % Alecia Enamorado MD Work Phone: [facility] 02-06-2025 12:59-0400 Systolic blood pressure 130 mm[Hg] Alecia Enamorado MD Work Phone: [facility] 01-23-2025 17:49-0400 Body mass index (BMI) [Ratio] 28.75 kg/m2 Alecia Enamorado MD Work Phone: [facility] 01-23-2025 17:49-0400 Body temperature 98.29 [degF] Alecia Enamorado MD Work Phone: [facility] 01-23-2025 17:49-0400 Body weight 92.2 kg Alecia Enamorado MD Work Phone: [facility] 01-23-2025 17:49-0400 Diastolic blood pressure 82 mm[Hg] Alecia Enamorado MD Work Phone: [facility] 01-23-2025 17:49-0400 Heart rate 99 /min Alecia Enamorado MD Work Phone: [facility] 01-23-2025 17:49-0400 Respiratory rate 16 /min Alecia Enamorado MD Work Phone: [facility] 01-23-2025 17:49-0400 SaO2% (BldA) [Mass fraction] 95 % Alecia Enamorado MD Work Phone: [facility] 01-23-2025 17:49-0400 Systolic blood pressure 132 mm[Hg] Alecia Enamorado MD Work Phone: [facility] 08-08-2024 15:29-0500 Body mass index (BMI) [Ratio] 28.07 kg/m2 Miranda Del Rio MD Work Phone: [facility] 08-08-2024 15:29-0500 Body weight 90 kg Miranda Del Rio MD Work Phone: [facility] 08-08-2024 15:29-0500 Diastolic blood pressure 77 mm[Hg] Miranda Del Rio MD Work Phone: [facility] 08-08-2024 15:29-0500 Heart rate 101 /min Miranda Del Rio MD Work Phone: [facility] 08-08-2024 15:29-0500 SaO2% (BldA) [Mass fraction] 98 % Miranda Del Rio MD Work Phone: [facility] 08-08-2024 15:29-0500 Systolic blood pressure 114 mm[Hg] Miranda Del Rio MD Work Phone: [facility] 08-08-2024 10:32-0500 Body height 179.1 cm Aga Benitez MD Work Phone: [facility] 08-08-2024 10:32-0500 Body mass index (BMI) [Ratio] 33.37 kg/m2 Aga Benitez MD Work Phone: [facility] 08-08-2024 10:32-0500 Body weight 107 kg Aga Benitez MD Work Phone: [facility] 08-08-2024 10:32-0500 Diastolic blood pressure 77 mm[Hg] Aga Benitez MD Work Phone: [facility] 08-08-2024 10:32-0500 Heart rate 98 /min Aga Benitez MD Work Phone: [facility] 08-08-2024 10:32-0500 Respiratory rate 16 /min Aga Benitez MD Work Phone: [facility] 08-08-2024 10:32-0500 SaO2% (BldA) [Mass fraction] 98 % Aga Benitez MD Work Phone: [facility] 08-08-2024 10:32-0500 Systolic blood pressure 135 mm[Hg] Aga Benitez MD Work Phone: [facility] 07-27-2024 15:40-0400 Body temperature 97.81 [degF] Patric Guillen MD Work Phone: [facility] [employer] 07-27-2024 15:40-0400 Diastolic blood pressure 80 mm[Hg] Patric Guillen MD Work Phone: [facility] [employer] 07-27-2024 15:40-0400 Heart rate 80 /min Patric Guillen MD Work Phone: [facility] [employer] 07-27-2024 15:40-0400 Respiratory rate 18 /min Patric Guillen MD Work Phone: [facility] [employer] 07-27-2024 15:40-0400 SaO2% (BldA) [Mass fraction] 95 % Patric Guillen MD Work Phone: [facility] [employer] 07-27-2024 15:40-0400 Systolic blood pressure 135 mm[Hg] Patric Guillen MD Work Phone: [facility] [employer] 07-27-2024 03:37-0400 Body mass index (BMI) [Ratio] 28.04 kg/m2 Patric Guillen MD Work Phone: [facility] [employer] 07-27-2024 03:37-0400 Body weight 93.8 kg Patric Guillen MD Work Phone: [facility] [employer] 07-25-2024 23:19-0400 Body height 182.9 cm Patric Guillen MD Work Phone: [facility] [employer] 04-18-2024 13:34-0400 Body height 179.1 cm Aga Benitez MD Work Phone: [facility] 04-18-2024 13:34-0400 Body mass index (BMI) [Ratio] 33.93 kg/m2 Aga Benitez MD Work Phone: [facility] 04-18-2024 13:34-0400 Body temperature 97.3 [degF] Aga Benitez MD Work Phone: [facility] 04-18-2024 13:34-0400 Body weight 108.8 kg Aga Benitez MD Work Phone: [facility] 04-18-2024 13:34-0400 Diastolic blood pressure 74 mm[Hg] Aga Benitez MD Work Phone: [facility] 04-18-2024 13:34-0400 Heart rate 54 /min Aga Benitez MD Work Phone: [facility] 04-18-2024 13:34-0400 SaO2% (BldA) [Mass fraction] 97 % Aga Benitez MD Work Phone: [facility] 04-18-2024 13:34-0400 Systolic blood pressure 126 mm[Hg] Aga Benitez MD Work Phone: [facility] 04-04-2024 13:30-0400 Body mass index (BMI) [Ratio] 33.47 kg/m2 Miranda Del Rio MD Work Phone: [facility] 04-04-2024 13:30-0400 Body temperature 97.9 [degF] Miranda Del Rio MD Work Phone: [facility] 04-04-2024 13:30-0400 Body weight 108.85 kg Miranda Del Rio MD Work Phone: [facility] 04-04-2024 13:30-0400 Diastolic blood pressure 74 mm[Hg] Miranda Del Rio MD Work Phone: [facility] 04-04-2024 13:30-0400 Heart rate 54 /min Miranda Del Rio MD Work Phone: [facility] 04-04-2024 13:30-0400 SaO2% (BldA) [Mass fraction] 97 % Miranda Del Rio MD Work Phone: [facility] 04-04-2024 13:30-0400 Systolic blood pressure 110 mm[Hg] Miranda Del Rio MD Work Phone: [facility] 02-26-2024 14:46-0400 Body height 180.3 cm Marcell Jensen MD Work Phone: [facility] 02-26-2024 14:46-0400 Body mass index (BMI) [Ratio] 33.61 kg/m2 Marcell Jensen MD Work Phone: [facility] 02-26-2024 14:46-0400 Body weight 109.32 kg Marcell Jensen MD Work Phone: [facility] 02-26-2024 14:46-0400 Diastolic blood pressure 69 mm[Hg] Marcell Jensen MD Work Phone: [facility] 02-26-2024 14:46-0400 Heart rate 60 /min Marcell Jensen MD Work Phone: [facility] 02-26-2024 14:46-0400 Systolic blood pressure 144 mm[Hg] Marcell Jensen MD Work Phone: [facility] 01-14-2024 19:27-0400 Diastolic blood pressure 88 mm[Hg] Dr. Amaya No Work Phone: [facility] 01-14-2024 19:27-0400 Systolic blood pressure 138 mm[Hg] Dr. Amaya No Work Phone: [facility] 01-14-2024 15:08-0400 Body height 175.[address] Amaya No Work Phone: [facility] 01-14-2024 15:08-0400 Body mass index (BMI) [Ratio] 36.3 kg/m2 Dr. Amaya No Work Phone: [facility] 01-14-2024 15:08-0400 Body temperature 98.1 [degF] Dr. Amaya No Work Phone: [facility] 01-14-2024 15:08-0400 Body weight 111.[address] Amaya No Work Phone: [facility] 01-14-2024 15:08-0400 Heart rate 63 /min Dr. Amaya No Work Phone: [facility] 01-14-2024 15:08-0400 Respiratory rate 16 /min Dr. Amaya No Work Phone: [facility] 01-14-2024 15:08-0400 SaO2% (BldA) [Mass fraction] 93 % Dr. Amaya No Work Phone: [facility] 12-08-2023 07:55-0500 Diastolic blood pressure 81 mm[Hg] Carla Weir PA-C Work Phone: [facility] 12-08-2023 07:55-0500 Heart rate 68 /min Carla Weir PA-C Work Phone: [facility] 12-08-2023 07:55-0500 Respiratory rate 18 /min Carla Antunezer PA-C Work Phone: [facility] 12-08-2023 07:55-0500 SaO2% (BldA) [Mass fraction] 94 % Carla Weir PA-C Work Phone: [facility] 12-08-2023 07:55-0500 Systolic blood pressure 165 mm[Hg] Carla BRENNAN-C Work Phone: [facility] 12-02-2023 15:42-0500 Diastolic blood pressure 68 mm[Hg] Dr. Amaya No Work Phone: [facility] 12-02-2023 15:42-0500 Systolic blood pressure 138 mm[Hg] Dr. Amaya No Work Phone: [facility] 11-03-2023 10:42-0500 Body height 175.[address] Amaya No Work Phone: [facility] 11-03-2023 10:42-0500 Body mass index (BMI) [Ratio] 36.9 kg/m2 Dr. Amaya No Work Phone: [facility] 11-03-2023 10:42-0500 Body temperature 98 [degF] Dr. Amaya No Work Phone: [facility] 11-03-2023 10:42-0500 Body weight 113.[address] Amaya No Work Phone: [facility] 11-03-2023 10:42-0500 Heart rate 76 /min Dr. Amaya No Work Phone: [facility] 11-03-2023 10:42-0500 Respiratory rate 18 /min Dr. Amaya No Work Phone: [facility] 11-03-2023 10:42-0500 SaO2% (BldA) [Mass fraction] 97 % Dr. Amaya No Work Phone: [facility] 09-24-2023 15:40-0500 Body mass index (BMI) [Ratio] 35.9 kg/m2 Dr. Amaya No Work Phone: [facility] 09-24-2023 15:40-0500 Body temperature 98.6 [degF] Dr. Amaya No Work Phone: [facility] 09-24-2023 15:40-0500 Body weight 110.[address] Amaya No Work Phone: [facility] 09-24-2023 15:40-0500 Diastolic blood pressure 84 mm[Hg] Dr. Amaya No Work Phone: [facility] 09-24-2023 15:40-0500 Heart rate 62 /min Dr. Amaya No Work Phone: [facility] 09-24-2023 15:40-0500 Respiratory rate 16 /min Dr. Amaya No Work Phone: [facility] 09-24-2023 15:40-0500 SaO2% (BldA) [Mass fraction] 98 % Dr. Amaya No Work Phone: [facility] 09-24-2023 15:40-0500 Systolic blood pressure 122 mm[Hg] Dr. Amaya No Work Phone: [facility] 09-10-2023 14:37-0500 Body mass index (BMI) [Ratio] 34.7 kg/m2 Dr. Amaya No Work Phone: [facility] 09-10-2023 14:37-0500 Body weight 106.[address] Amaya No Work Phone: [facility] 08-20-2023 14:35-0500 Body mass index (BMI) [Ratio] 35.1 kg/m2 Dr. Amaya No Work Phone: [facility] 08-20-2023 14:35-0500 Body temperature 97.5 [degF] Dr. Amaya No Work Phone: [facility] 08-20-2023 14:35-0500 Body weight 107.[address] Amaya No Work Phone: [facility] 08-20-2023 14:35-0500 Diastolic blood pressure 68 mm[Hg] Dr. Amaya No Work Phone: [facility] 08-20-2023 14:35-0500 Heart rate 68 /min Dr. Amaya No Work Phone: [facility] 08-20-2023 14:35-0500 Respiratory rate 15 /min Dr. Amaya No Work Phone: [facility] 08-20-2023 14:35-0500 SaO2% (BldA) [Mass fraction] 98 % Dr. Amaya No Work Phone: [facility] 08-20-2023 14:35-0500 Systolic blood pressure 118 mm[Hg] Dr. Amaya No Work Phone: [facility] 04-30-2023 14:18-0400 Body height 175.[address] Amaya No Work Phone: [facility] 04-30-2023 14:18-0400 Body mass index (BMI) [Ratio] 36.3 kg/m2 Dr. Amaya No Work Phone: [facility] 04-30-2023 14:18-0400 Body weight 111.[address] Amaya No Work Phone: [facility] 04-23-2023 13:07-0400 Body mass index (BMI) [Ratio] 35.4 kg/m2 Dr. Amaya No Work Phone: [facility] 04-23-2023 13:07-0400 Body temperature 98.3 [degF] Dr. Amaya No Work Phone: [facility] 04-23-2023 13:07-0400 Body weight 108.[address] Amaya No Work Phone: [facility] 04-23-2023 13:07-0400 Diastolic blood pressure 78 mm[Hg] Dr. Amaya No Work Phone: [facility] 04-23-2023 13:07-0400 Heart rate 56 /min Dr. Amaya No Work Phone: [facility] 04-23-2023 13:07-0400 Respiratory rate 16 /min Dr. Amaya No Work Phone: [facility] 04-23-2023 13:07-0400 SaO2% (BldA) [Mass fraction] 97 % Dr. Amaya No Work Phone: [facility] 04-23-2023 13:07-0400 Systolic blood pressure 130 mm[Hg] Dr. Amaya No Work Phone: [facility] Encounters Encounter Date Encounter Type Care Provider Facility Start: 05-29-2025 Non-patient / Non-visit Dr. Danielle Dorantes MD -[facility] Work Phone: Start: 05-28-2025 Non-patient / Non-visit Dr. Mishel Vivar MD -[facility] Work Phone: Start: 05-27-2025 Non-patient / Non-visit Dr. Mishel Vivar MD -[facility] Work Phone: Start: 05-26-2025 End: 05-26-2025 Home visit Sandra Negrete PT Work Phone: [facility] Comment on above: PT ATTEMPTED VISIT Start: 05-26-2025 ambulatory Jos Teresa Fac ility:[facility] Start: 05-26-2025 End: 05-29-2025 Evaluation and management of inpatient Dr. Jos Teresa DO -[facility] Work Phone: Start: 05-26-2025 End: 05-29-2025 observation encounter DEFINED NOT -Medical Surgical 3 Start: 05-25-2025 End: 05-25-2025 Telephone encounter Binh Esquivel LPN Work Phone: [facility] Comment on above: Home Care (Confirmat ion Calls) Start: 05-24-2025 End: 05-25-2025 ambulatory GANDHIVARMA LUCY Facility:[facility] Start: 05-23-2025 End: 05-23-2025 ambulatory NICK ENNIS Facility:[facility] Start: 05-23-2025 End: 05-23-2025 Patient encounter procedure [facility] Ennis PhD [facility] Comment on above: 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, unspecified dementia type (HCC) (Primary Dx) Start: 05-11-2025 End: 05-11-2025 ambulatory CAROLINE FRIAS Facility:[facility] Start: 05-02-2025 End: 05-02-2025 [place] [id number] Work Phone: Pre Anesthesia Start: 05-02-2025 End: 05-02-2025 Admission to same day surgery center Valorie Ayala MD Work Phone: Neurosurgery Comment on above: Mild depression (Theresa lida Dx); Spinal stenosis of lumbar region with neurogenic claudication; Type 2 diabetes mellitus without complication, without long-term current use of insulin (HCC); Mixed hyperlipidemia; Essential (primary) hypertension; Chronic combined systolic and diastolic heart failure (HCC); Parkinson's disease with dyskinesia, unspecified whether manifestations fluctuate (HCC); PONV (postoperative nausea and vomiting); LBBB (left bundle branch block); At risk for retention of urine; Major neurocognitive disorder (HCC) Start: 05-02-2025 End: 05-02-2025 Office consultation new/estab patient 60 min Valorie Ayala MD Work Phone: Neurosurgery Comment on above: Spinal stenosis of l umbar region with neurogenic claudication Start: 05-02-2025 End: 05-02-2025 ambulatory Valorie Ayala MD Work Phone: Neurosurgery Start: 05-01-2025 End: 05-01-2025 Patient encounter procedure Nick Ennis PhD [facility] [employer] [facility] Comment on above: Major neurocognitive disorder (HCC) (Primary Dx); Parkinson's disease with dyskinesia, unspecified whether manifestations fluctuate (HCC) Start: 05-01-2025 End: 05-01-2025 ambulatory MIRANDA DEL RIO [facility] Start: 04-28-2025 ambulatory Amaya No Facility :[facility] Start: 04-28-2025 End: 04-28-2025 Telephone encounter Nick Ennis PhD Work Phone: [facility] ([place]) Comment on above: Appointment Start: 04-26-2025 End: 07-23-2025 Office outpatient new 45 minutes Coral Francisco PA-C Work Phone: Urology Comment on above: Urge incontinence (P rimary Dx); Overactive bladder; Parkinson's disease, unspecified whether dyskinesia present, unspecified whether manifestations fluctuate (HCC); Alzheimer's disease (HCC); Screening for genitourinary condition Start: 04-26-2025 End: 04-26-2025 ambulatory KATE BELCHER Facility:[facility] Start: 04-25-2025 End: 04-26-2025 ambulatory Miranda Del Rio MD Work Phone: Neurology Comment on above: Nick Jaswinder Start: 04-06-2025 End: 04-10-2025 Telephone encounter Miranda Del Rio MD Work Phone: Neurology Comment on above: Orders Start: 03-30-2025 End: 03-30-2025 Patient encounter procedure [facility] Provider [facility] Department Start: 03-27-2025 ambulatory TAMMI GARCIA Facili ty:[facility] Start: 03-27-2025 End: 03-27-2025 Subsequent hospital visit by physician Mri Radio [facility] (I-Stat/1.5t) Work Phone: Radiology Comment on above: Spinal stenosis of l umbar region with neurogenic claudication [M48.062] Start: 03-27-2025 End: 03-27-2025 ambulatory TAMMI GARCIA Facility:[facility] Start: 03-27-2025 End: 03-27-2025 Patient encounter procedure Kate Belcher Work Phone: Podiatry Comment on above: Diabetic polyneuropa thy associated with type 2 diabetes mellitus (HCC) (Primary Dx); Onychomycosis; Pain in toe of right foot; Pain in toe of left foot; Ingrowing toenail; Diminished pulses in lower extremity Parkinson's disease without dyskinesia or fluctuating manifestations (HCC) (Primary Dx); 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); Cerebral microvascular disease; Insomnia, unspecified type; Low back pain, unspecified back pain laterality, unspecified chronicity, unspecified whether sciatica present; Numbness in feet Start: 03-27-2025 End: 03-27-2025 ambulatory MIRANDA DEL RIO Facility:[facility] Start: 03-14-2025 End: 03-14-2025 Patient encounter procedure Tammi Garcia DO Work Phone: Spine Medicine Comment on above: Spinal stenosis of l umbar region with neurogenic claudication (Primary Dx); Lumbar back pain; Weakness of both lower extremities Start: 03-14-2025 End: 03-14-2025 ambulatory SELF Facility:[facility] Start: 03-13-2025 End: 03-13-2025 Patient encounter procedure Chris BRENNA[facility] Work Phone: Start: 03-13-2025 End: 03-13-2025 Patient encounter procedure Luna Hannon OD Work Phone: Ophthalmology Comment on above: Presbyopia (Primary Dx); Regular astigmatism of both eyes; Type 2 diabetes mellitus without retinopathy (HCC); Combined forms of age-related cataract of both eyes Start: 03-13-2025 End: 03-13-2025 ambulatory LUNA HANNON Facility:[facility] Start: 03-13-2025 End: 03-13-2025 ambulatory DEFINED NOT [facility] Work Phone: Comment on above: Parkinson's disease with dyskinesia without fluctuating manifestations (HCC) (Primary Dx) Start: 03-13-2025 End: 03-13-2025 ambulatory LEON HUYNH Facility:[facility]el[facility] Start: 03-13-2025 End: 03-13-2025 ambulatory Chris BRENNAN Facility:[facility] Start: 02-20-2025 End: 02-20-2025 ambulatory Leon Huynh OTR/L Work Phone: [facility] Comment on above: Parkinson's disease with dyskinesia without fluctuating manifestations (HCC) (Primary Dx); Other specified personal risk factors, not elsewhere classified Start: 2025 End: 2025 ambulatory DEFINED NOT [facility] Work Phone: Start: 2025 End: [address] Amaya No MD -Radiology, [place] Work Phone: Start: 2025 [facility] Start: 2025 End: [address] Amaya No MD -[facility] Work Phone: Start: 2025 End: 2025 ambulatory DEFINED NOT Facility:[facility] Start: 02-06-2025 End: 02-06-2025 Office outpatient visit 15 minutes Alecia Enamorado MD Work Phone: [facility] Comment on above: Contusion of left bu ttock (Primary Dx); Fall, initial encounter Start: 02-06-2025 End: 2025 ambulatory ALECIA ENAMORADO Facility:[facility] Start: 01-24-2025 End: 03-26-2025 Follow-up encounter Grace Cantrell PA-C Work Phone: Family Medicine [facility] Start: 01-23-2025 End: 01-23-2025 Office outpatient visit 40 minutes Alecia Enamorado MD Work Phone: [facility] Comment on above: Confusion (Primary D x); Generalized weakness; Type 2 diabetes mellitus without complication, without long-term current use of insulin (HCC) Start: 01-23-2025 End: 01-23-2025 ambulatory ALECIA ENAMORADO Facility:[facility] Start: 01-23-2025 End: 01-23-2025 ambulatory AGA BENITEZ Facility:[facility] Start: 12-22-2024 End: 12-23-2024 Refill Aga Benitez MD Work Phone: Internal Medicine [facility] Comment on above: Refill Request Start: 10-20-2024 End: 10-20-2024 ambulatory KATE BELCHER Facility:[facility] Start: 10-20-2024 End: 10-20-2024 Patient encounter procedure Kate Belcher Work Phone: Podiatry Comment on above: Type 2 diabetes henry itus without complication, without long- term current use of insulin (HCC) (Primary Dx); Diminished pulses in lower extremity; Onychomycosis; Ingrowing toenail; Pain in toe of left foot Start: 10-20-2024 End: 10-21-2024 Telephone encounter Aga Benitez MD Work Phone: Family Medicine [facility] Comment on above: Orders ([facility] order received ) Start: 10-13-2024 End: 10-14-2024 Telephone encounter Aga Benitez MD Work Phone: Internal Medicine [facility] Comment on above: Orders ([facility] order re ceived ) Start: 10-11-2024 End: 10-11-2024 ambulatory LUNA HANNON Facility:[facility] Start: 10-11-2024 End: 10-11-2024 Patient encounter procedure Luna Hannon OD Work Phone: Ophthalmology Comment on above: Type 2 diabetes henry itus without retinopathy (HCC) (Primary Dx); Combined forms of age-related cataract of both eyes; Regular astigmatism of both eyes; Presbyopia; Dry eye syndrome of bilateral lacrimal glands Start: 10-06-2024 End: 10-06-2024 Refill Marcell Jensen MD Work Phone: Cardiology Start: 09-19-2024 End: 09-19-2024 Telephone encounter Aga Benitez MD Work Phone: Internal [facility] Comment on above: Orders ([facility] order re ceived ( Multiple orders )) Start: 08-26-2024 End: 08-29-2024 Telephone encounter Aga Benitez MD Work Phone: [address] [place] [address] Comment on above: Patient Update Start: 08-19-2024 End: 08-23-2024 Telephone encounter Aga Benitez MD Work Phone: [place] Comment on above: Orders Start: 08-08-2024 End: 08-08-2024 ambulatory MIRANDA DEL RIO Facility:[facility] Start: 08-08-2024 End: 08-08-2024 Patient encounter procedure Miranda Del Rio MD Work Phone: Neurology Comment on above: Parkinson's disease without dyskinesia or fluctuating manifestations (HCC) (Primary Dx); Chronic idiopathic constipation; Toxic metabolic encephalopathy Start: 08-08-2024 End: 08-08-2024 Telephone encounter Aga Benitez MD Work Phone: [address] [place] [address] Comment on above: Patient Update Start: 08-08-2024 End: 08-08-2024 [facility] Start: 08-08-2024 End: 08-08-[address] [facility] Facility:[facility] Start: 08-08-2024 End: 08-08-2024 Office outpatient visit 25 minutes Aga Benitez MD Work Phone: Internal Medicine [facility] Comment on above: Benign prostatic hyp erplasia without lower urinary tract symptoms (Primary Dx); Anemia, unspecified type; Type 2 diabetes mellitus without complication, without long-term current use of insulin (HCC); Screening for diabetic retinopathy Start: 08-01-2024 End: 08-01-2024 Emergency department patient visit [facility] Facility:[facility] Start: 08-01-2024 ambulatory [facility] Facility :[facility] Start: 07-28-2024 End: 08-01-2024 Telephone encounter Aga Benitez MD Work Phone: [address] [place] [address] Comment on above: Home Care Orders; Home Care Start: 07-26-2024 End: 08-02-2024 Telephone encounter Ernst Hall MD Work Phone: [facility] Urology - [place] Comment on above: Blood in Urine; Othe r (New urology appointment) Start: 07-25-2024 End: 07-27-2024 [facility] Start: 07-25-2024 End: 07-27-2024 Emergency department patient visit Patric Guillen MD Work Phone: [facility] Cardiac Progressive Care Unit PCU 5W Comment on above: Septic shock (HCC) ( Primary Dx); Pain of lower extremity, unspecified laterality Start: 07-06-2024 End: 07-06-2024 ambulatory [facility] Facility:[facility] Start: 07-05-2024 End: 07-14-2024 Evaluation and management of inpatient AURELIO GRANDA Facility:[facility] Start: 07-03-2024 End: 07-05-2024 Evaluation and management of inpatient LIZBETH FERRARA Facility:[facility] Start: 06-29-2024 End: 07-03-2024 Evaluation and management of inpatient ERASMO GUDINO Facility:[facility] Start: 06-22-2024 ambulatory [facility] Facility :[facility] Start: 06-22-2024 End: 06-29-2024 Evaluation and management of inpatient [facility] Facility:[facility] Start: 06-22-2024 ambulatory [facility] Facility :[facility] Start: 05-31-2024 End: 06-03-2024 Refill Miranda Del Rio MD Work Phone: Neurology Comment on above: Refill Request Start: 05-27-2024 End: 05-27-2024 Telephone encounter Martha Dockery [facility] Work Phone: Cardiology Start: 05-02-2024 Telephone encounter Aga campo MD Work Phone: Internal Medicine [facility] Comment on above: Orders ([facility] form received ) Start: 04-29-2024 End: 04-29-2024 Phys/qhp telephone evaluation 21-30 min Marcell Jensen MD Work Phone: Cardiology Comment on above: Essential (primary) hypertension (Primary Dx); Heart failure with mildly reduced ejection fraction (HFmrEF) (HCC); Encounter for medication review and counseling Start: 04-28-2024 End: 04-28-2024 ambulatory Mary Mccain [facility] Work Phone: Cardiology Comment on above: Heart failure with m ildly reduced ejection fraction (HFmrEF) (HCC) (Primary Dx); Encounter for medication review and counseling Start: 04-28-2024 End: 04-28-2024 Telemedicine consultation with patient Mary Mccain [facility] Work Phone: Cardiology Start: 04-19-2024 End: 04-19-2024 Subsequent hospital visit by physician Spectct3 Work Phone: Molecular Imaging Comment on above: Heart failure with m ildly reduced ejection fraction (HFmrEF) (HCC) [I50.22] Start: 04-19-2024 End: 04-19-2024 Subsequent hospital visit by physician [facility] Start: 04-18-2024 End: 04-18-2024 Office outpatient visit 25 minutes Aga Benitez MD Work Phone: Internal Medicine [facility] Comment on above: Encounter to [facility] (Primary Dx); Systolic heart failure, unspecified HF chronicity (HCC); Essential (primary) hypertension; Calculus of kidney; Type 2 diabetes mellitus without complication, without long-term current use of insulin (HCC); Mixed hyperlipidemia; Chronic bilateral low back pain with bilateral sciatica; Parkinson's disease without dyskinesia, unspecified whether manifestations fluctuate (HCC) Start: 04-05-2024 Refill Marcell Jensen MD Work Phone: Cardiology Comment on above: Forms Start: 04-04-2024 End: 04-04-2024 Patient encounter procedure Miranda Del Rio MD Work Phone: Neurology Comment on above: Parkinson's disease without dyskinesia or fluctuating manifestations (HCC) (Primary Dx); Tremor Start: 04-04-2024 Telephone encounter Marcell romero MD Work Phone: Cardiology Comment on above: Appointment (Heart F ailure Pharmacist Appt) Start: 04-01-2024 End: 04-01-2024 Patient encounter procedure Marcell Jensen MD Work Phone: Cardiology Comment on above: Heart failure with m ildly reduced ejection fraction (HFmrEF) (HCC) (Primary Dx); Essential (primary) hypertension; Cerebrovascular accident (CVA) due to embolism of precerebral artery (HCC) Start: 04-01-2024 End: 04-01-2024 Telephone encounter Marcell Jensen MD Work Phone: Cardiology Start: 03-16-2024 Telephone encounter Marcell romero MD Work Phone: Cardiology Start: 03-11-2024 Telephone encounter Marcell romero MD Work Phone: [facility] Comment on above: Patient Update (Entr esto & Farxiga) Start: 03-03-2024 Telephone encounter Marcell romero MD Work Phone: Cardiology Comment on above: Cardiac Clearance fo rm for total knee arthoplasty (Cardiac Clearance form for total knee arthoplasty from [facility].) Start: 02-26-2024 End: 02-26-2024 Office outpatient new 60 minutes Marcell Jensen MD Work Phone: Cardiology Comment on above: Heart failure with m ildly reduced ejection fraction (HFmrEF) (HCC) (Primary Dx); Essential (primary) hypertension; Cerebrovascular accident (CVA) due to embolism of precerebral artery (HCC); Type 2 diabetes mellitus without complication, without long-term current use of insulin (HCC) Start: 02-19-2024 Telephone encounter Donn win DO Work Phone: Vascular Medicine Comment on above: Results (Uploaded ec hocardiogram results to [facility]) Start: 01-26-2024 Orders Only Kai Bai MD Work Phone: Orthopaedics Comment on above: Pain in both knees, unspecified chronicity (Primary Dx) Start: 01-19-2024 Non-patient / Non-visit Dr. Carrillo Work Phone: [facility] Start: 01-19-2024 End: 01-19-[address] Amaya No Work Phone: [facility] Work Phone: Start: 01-19-2024 End: 01-19-[address] Amaya No Work Phone: [facility] Work Phone: Start: 01-15-2024 Telephone encounter Carla wick PA-C Work Phone: Neurology Comment on above: Results Start: 01-15-2024 End: 01-15-2024 Subsequent hospital visit by physician [facility] (I-Stat) Work Phone: Cat Scan Comment on above: Cerebral infarction, unspecified mechanism (HCC) [I63.9] Start: 01-14-2024 End: 01-14-[address] Amaya No Work Phone: [facility] Work Phone: Start: 01-07-2024 Telephone encounter Carla wick PA-C Work Phone: Neurology Comment on above: Results Start: 01-06-2024 End: 01-06-2024 Subsequent hospital visit by physician Mri Radio [facility] (I-Stat/1.5t) Work Phone: Radiology Comment on above: Tremor [R25.1] Start: 12-08-2023 End: 12-08-2023 Patient encounter procedure Carla Weir PA-C Work Phone: Neurology Comment on above: Tremor (Primary Dx); Parkinsonism, unspecified Parkinsonism type (HCC) Start: 12-03-2023 Telephone encounter Neurology Provid er Neurology Comment on above: Patient Update; Appo intment Start: 12-02-2023 End: 12-02-[address] Amaya No Work Phone: [facility] Work Phone: Start: 11-30-2023 End: 11-30-[address] Amyaa No Work Phone: [facility] Work Phone: Start: 11-30-2023 End: 11-30-[address] Amaya No Work Phone: [facility]-Radiology, [facility] Work Phone: Start: 11-11-2023 End: 11-11-[address] Amaya No Work Phone: [facility] Work Phone: Start: 11-03-2023 End: 11-03-[address] Amaya No Work Phone: [facility] Work Phone: Start: 09-24-2023 End: 09-24-[address] Amaya No Work Phone: [facility] Work Phone: Start: 09-10-2023 End: 09-10-[address] Amaya No Work Phone: [facility] Work Phone: Start: 08-20-2023 End: 08-20-[address] Amaya No Work Phone: [facility] Work Phone: Start: 08-06-2023 End: 08-06-[address] Amaya No Work Phone: [facility] Work Phone: Start: 06-11-2023 End: 06-11-[address] Amaya No Work Phone: [facility] Work Phone: Start: 06-04-2023 End: 06-04-[address] Amaya oN Work Phone: [facility] Work Phone: Start: 06-04-2023 End: 06-04-[address] Amaya No Work Phone: [facility] Work Phone: Start: 05-20-2023 End: 05-20-[address] Amaya No Work Phone: [facility] Work Phone: Start: 05-20-2023 End: 05-20-[address] Amaya No Work Phone: [facility], [facility] Start: 04-30-2023 End: 04-30-[address] Amaya No Work Phone: [facility] Work Phone: Start: 04-23-2023 End: 04-23-[address] Amaya No Work Phone: [facility] Work Phone: Start: 08-01-2022 End: 08-06-2022 ambulatory JAMAAL KNOX MD Facility:A Start: 08-01-2022 End: 08-06-2022 Encounter for general adult medical examination without abnormal findings JAMAAL KNOX MD Facility:A Start: 02-21-2022 End: 02-26-2022 ambulatory JAMAAL KNOX MD Facility:[facility] Procedures Date Procedure Procedure Detail Performing Clinician Start: 05-29-2025 Estimated creatinine clearance DEFINED NOT Start: 05-26-2025 Urnls dip stick/tabl et reagent auto microscopy DEFINED NOT Start: 05-26-2025 Computed tomography of thoracic spine without contrast DEFINED NOT Start: 05-26-2025 CT cervical spine wi thout contrast DEFINED NOT Start: 05-26-2025 CT of head without contrast DEFINED NOT Start: 05-26-2025 CT of lumbar spine DEFI XIN NOT Start: 05-26-2025 X-ray of chest, PA a nd lateral views DEFINED NOT Start: 05-02-2025 Antibody screen KATE BELCHER Comment on above: Order Comment: Speci men Type: BLOOD SPECIMENOrdering Facility: [facility] Address: [address] [place] [address] Performed By: #### T [id number] ####CC MAIN BLOOD BANKCLIA [id number] [facility] [id number] [place] [address] [place] Start: 04-26-2025 Urnls dip stick/tabl et rgnt auto w/o microscopy Coral Francisco PA-C Work Phone: Start: 03-27-2025 Mri spinal canal lum bar w/o contrast material Tammi Garcia DO Work Phone: Start: 03-13-2025 X-ray of ankle, thre e or more views DEFINED NOT Start: 03-13-2025 X-ray of foot, three or more views DEFINED NOT Start: 2025 X-ray of lumbar spin e, two or three views DEFINED NOT Start: 2025 Plain x-ray of pelvi s and lower extremity DEFINED NOT Start: 01-23-2025 Gluc bld gluc mntr d ev cleared fda spec home use Alecia Enamorado MD Work Phone: Start: 01-23-2025 Urnls dip stick/tabl et rgnt auto w/o microscopy Alecia Enamorado MD Work Phone: Start: 10-11-2024 Computerized ophthal araceli imaging retina Luna Hannon OD Work Phone: Start: 08-08-2024 Lipid 1996 panel - S nicole or Plasma Aga Benitez MD Work Phone: Start: 07-27-2024 Glucose quantitative blood xcpt reagent strip Baldev Bosch MD Work Phone: Start: 07-27-2024 Glucose quantitative blood xcpt reagent strip Baldev Bosch MD Work Phone: Start: 07-27-2024 Comprehensive metabo lic panel Anil Julien DO Work Phone: Start: 07-27-2024 Drug screen quantita tive vancomycin Anil Julien DO Work Phone: Start: 07-26-2024 Glucose quantitative blood xcpt reagent strip Baldev Bosch MD Work Phone: Start: 07-26-2024 Glucose quantitative blood xcpt reagent strip Baldev Bosch MD Work Phone: Start: 07-26-2024 Glucose quantitative blood xcpt reagent strip Baldev Bosch MD Work Phone: Start: 07-26-2024 Dup-scan xtr veins c omplete bilateral study Anil Julien DO Work Phone: Start: 07-26-2024 End: 07-26-2024 Comprehensive metabolic panel Anil Julien DO Work Phone: Start: 07-26-2024 Drug screen quantita tive vancomycin Anil Julien DO Work Phone: Start: 07-25-2024 Comprehensive metabo lic panel Anil Julien DO Work Phone: Start: 07-25-2024 Ct abdomen & pelvis w/o contrast material Anil Julien DO Work Phone: Start: 07-25-2024 Radiologic examinati on knee 3 views Anil Julien DO Work Phone: Start: 07-25-2024 Radiologic exam ches t single view Anil Julien DO Work Phone: Start: 07-25-2024 End: 07-25-2024 Creatinine other source Anil Julien DO Work Phone: Start: 07-25-2024 Ecg routine ecg w/le ast 12 lds trcg only w/o i&r Anil Julien DO Work Phone: Start: 07-25-2024 Bacteria identified in Blood by Culture Patric Guillen MD Work Phone: Start: 07-25-2024 Culture bacterial quanttative colony count urine Marlene Escalante MD Work Phone: Start: 07-25-2024 Urinalysis complete panel - Urine Marlene Escalante MD Work Phone: Start: 07-25-2024 C-reactive protein Rip ezra Julien DO Work Phone: Start: 07-25-2024 Comprehensive metabo lic panel Marlene Escalante MD Work Phone: Start: 01-15-2024 Ct angiography head w/contrast/noncontrast Carla Weir PA-C Work Phone: Start: 01-15-2024 Ct angiography neck w/contrast/noncontrast Carla Weir PA-C Work Phone: Start: 01-06-2024 Mri brain brain stem w/o contrast material Carla Weir PA-C Work Phone: Start: 11-30-2023 Diagnostic radiograp hy of abdomen Dr. Amaya No Work Phone: Start: 11-11-2023 End: 11-11-[address] examination of knee [address] Amaya No Work Phone: Start: 04-30-2023 End: 04-30-[address] knee [address] Amaya No Work Phone: Start: 10-25-2019 [object Object] Comment on above: Performed By: #### L [phone] #### [facility] [address] [place] [address]# [phone] Plan of Treatment Date Care Activity Detail Author Start: 01-23-2030 Prostate specific antigen measurement Prostate Cancer Screening Discussion [facility] Start: 08-08-2029 Lipid panel Lipid Screening [facility] Start: 08-08-2027 Diabetes Screening Diabetes Screening [facility] Start: 02-25-2027 Diabetes Screening Diabetes Screening [facility] Start: 12-07-2026 Diabetes Screening Diabetes Screening [facility] Start: 02-20-2026 BP Controlled (<130/80) BP Controlled (<130/80) [facility] in Start: 01-23-2026 Hepatitis B screening Urine Albumin:Creatinine Ratio [facility] Start: 11-20-2025 End: 11-20-2025 Patient encounter procedure 11/20/2025 10:30 AM EST Office Visit Neurology [address] [place] [address] [place] [address] Miranda Del Rio MD [address] [place] [address] follow up Neurology Comment on above: follow up Start: 11-06-2025 End: 11-06-2025 Patient encounter procedure 11/06/2025 9:00 AM EST Office Visit [facility] Ophthalmology [address] [place] [address] Luna Hannon, OD [address] [place] [address] Diagnostics, [facility] [address] [id number] 7 month follow up; diabetic eye exam Ophthalmology Comment on above: 7 month follow up; diabetic eye exam Start: 11-02-2025 Hemoglobin A1c measurement HbA1C [facility] Start: 10-12-2025 End: 10-12-2025 Patient encounter procedure 10/12/2025 2:30 PM EST Office Visit [facility] Ophthalmology [address] [place] [address] Luna Hannon, OD [address] [place] [address] 1 yr diabetic eye exam Ophthalmology Comment on above: 1 yr diabetic eye exam Start: 10-11-2025 Glaucoma screening Dilated Retinal Exam [facility] Start: 08-22-2025 End: 08-22-2025 Patient encounter procedure 08/22/2025 12:30 PM EST Office Visit Neurology [address] [address] Lola Monet MD [address] [address] Cognitive Impairment/Cognitive Decline Neurology Comment on above: Cognitive Impairment/Cognitive Decline Start: 08-22-2025 End: 08-22-2025 Patient encounter procedure 08/22/2025 9:30 AM EST Office Visit Podiatry [address] [place] [address] Kate Belcher [address] [place], [place] [id number] Follow up for diabetic foot care Podiatry Comment on above: Follow up for diabetic foot care Start: 08-08-2025 Annual PCP Team Chronic Disease Visit Annual PCP Team Chronic Disease Visit [facility] Start: 08-08-2025 BP Controlled (<130/80) BP Controlled (<130/80) [facility] inic Start: 08-08-2025 Hepatitis B surface antibody level LDL Cholesterol [facility] Start: 07-28-2025 End: 07-28-2025 Patient encounter procedure 07/28/2025 4:00 PM EDT Office Visit Neurology [address] [facility] [place] [address] Miranda Del Rio MD [address] [facility] [place] [address] 4 month follow up Neurology Comment on above: 4 month follow up Start: 07-27-2025 Creatinine measurement Creatinine Level [facility] Start: 07-27-2025 Diabetes: Estimated Glomerular Filtration Rate for Kidney [facility] Diabetes: Estimated Glomerular Filtration Rate for Kidney [facility] Start: 07-27-2025 Potassium measurement Potassium Level [facility] Start: 07-25-2025 Hemoglobin A1c measurement [facility] Start: 06-27-2025 End: 06-27-2025 Patient encounter procedure 06/27/2025 2:45 PM EDT Office Visit Urology [address] [address] Patric Hidalgo Jr., MD [address] [place] [address] Return in about 3 months (around 07/27/2025). Urology Comment on above: Return in about 3 months (around 025). Start: 06-27-2025 End: 06-27-2025 Patient encounter procedure 06/27/2025 11:15 AM EDT Office Visit Podiatry [address] [place], [place] [phone] Kate Belcher [address] [place] [address] Follow up for diabetic foot care Podiatry Comment on above: Follow up for diabetic foot care Start: 06-23-2025 End: 06-23-2025 Patient encounter procedure 06/23/2025 9:00 AM EDT Office Visit [facility] [address] [place] [address] Monie Vincent MD [address] [facility] [address] [place] [address] check up [facility] Comment on above: check up Start: 06-19-2025 End: 06-19-2025 Patient encounter procedure 06/19/2025 2:00 PM EDT Office Visit Neurology [address] [place] [address] [place] [phone] Miranda Del Rio MD [address] [place] [address] Check up Neurology Comment on above: Check up Start: 06-08-2025 End: 06-08-2025 Patient encounter procedure 06/08/2025 1:30 PM EDT Office Visit Neurosurgery [address] [place] [address] Irma Henderson PA-C [address] [place] [address] post op Neurosurgery Comment on above: post op Start: 06-05-2025 Influenza vaccination [facility] Start: 05-29-2025 Patient discharge [facility] Start: 05-28-2025 Consultation [facility] Start: 05-27-2025 [facility] Start: 05-26-2025 End: 05-26-2025 [facility] Start: 05-26-2025 Following clinical pathway protocol [facility] Start: 05-26-2025 Ambulation without limitation [facility] Start: 05-26-2025 Assessment of risk of venous thromboembolism [facility] Start: 05-26-2025 Incentive spirometry [facility] Start: 05-26-2025 Insertion of catheter into peripheral vein [facility] Start: 05-26-2025 Oxygen therapy [facility] Start: 05-26-2025 Providing care according to standard [facility] Start: 05-26-2025 Referral to occupational therapist [facility] Start: 05-26-2025 Referral to service [facility] Start: 05-26-2025 Verification routine [facility] Start: 05-26-2025 Hospital admission, emergency, from emergency room, medical nature [facility] Start: 05-26-2025 Admission procedure [facility] Start: 05-24-2025 End: 05-24-2025 Admission to same day surgery [facility] Operating Room Comment on above: LAMINECTOMY DECOMPRESSION FACETECTOMY AN D FORAMINOTOMY Start: 05-24-2025 End: 05-24-2025 Mirza facetectomy & foramotomy 1 segment lumbar [facility] Start: 05-24-2025 End: 05-24-2025 Mirza facetectomy&foramtomy 1 sgm ea crv thrc/lmbr [facility] Start: 05-24-2025 Subsequent hospital visit by physician [facility] Operating Room Comment on above: Spinal stenosis, lumbar region, with ramsey rogenic claudication [M48.062] Start: 05-23-2025 End: 05-23-2025 Patient encounter procedure 05/23/2025 2:00 PM EDT Office Visit [facility] [address] [place] [address] Nick Ennis, PhD [address] [facility], [address] [place] [address] 60 min. Follow up. In office [facility] Robert) Comment on above: 60 min. Follow up. In office Start: 05-19-2025 End: 05-19-2025 Patient encounter procedure 05/19/2025 10:30 AM EDT Office Visit Neurology [address] [place] [address] [place] [phone] Miranda Del Rio MD [address] [place] [address] Check up Neurology Comment on above: Check up Start: 05-17-2025 End: 05-17-2025 Patient encounter procedure 05/17/2025 12:00 PM EDT Office Visit [employer] Phone Screening [place] [address] patients phone [phone] [facility] Comment on above: patients phone [phone] Start: 05-02-2025 End: 08-01-2025 Comprehensive metabolic 2000 panel - Serum or Plasma [facility] Work Phone: Comment on above: Expected: 05/02/2025, Expires: Start: 05-02-2025 End: 08-01-2025 Ferritin [Mass/volume] in Serum or Plasma [facility] Comment on above: Expected: 05/02/2025, Expires: Start: 05-02-2025 End: 08-01-2025 Hemoglobin A1c in Blood [facility] Comment on above: Expected: 05/02/2025, Expires: Start: 05-02-2025 End: 08-01-2025 Iron and Iron binding capacity panel - Serum or Plasma [facility] Comment on above: Expected: 05/02/2025, Expires: Start: 05-02-2025 End: 08-01-2025 TYPE AND SCREEN,30 DAY [facility] Comment on above: Expected: 05/02/2025, Expires: Start: 05-02-2025 End: 05-02-2025 Patient encounter procedure 05/02/2025 1:00 PM EDT Office Visit Neurosurgery [address] [place] [id number] [place] [address] [place] [address] Referred by Tammi Garcia DO Neurosurgery Comment on above: Referred by Tammi Garcia DO Start: 05-01-2025 End: 05-01-2025 Patient encounter procedure [facility]) Comment on above: Testing. Parkinson's disease / Major Ramsey r. Dsrdr Start: 04-26-2025 End: 04-26-2025 Patient encounter procedure 04/26/2025 1:50 PM EDT Office Visit Urology [address] [facility] [address] [place] [address] Coral Francisco PA-C [address] [facility] [address] [place] [address] Overactive bladder Urology Comment on above: Overactive bladder Start: 04-26-2025 End: 04-26-2025 Patient encounter procedure 04/26/2025 12:30 PM EDT Office Visit Vascular Surgery [address] [facility] [address] [place] [address] Dx: Diabetic polyneuropathy associated with type 2 diabetes mellitus (HCC) [E11.42]; Ingrowing toenail [L60.0]; Diminished pulses in lower extremity [R09.89] Vascular Surgery Comment on above: Dx: Diabetic polyneuropathy associated w ith type 2 diabetes mellitus (HCC) [E11.42]; Ingrowing toenail [L60.0]; Diminished pulses in lower extremity [R09.89] Start: 04-18-2025 Annual PCP Team Chronic Disease Visit Annual PCP Team Chronic Disease Visit [facility] Start: 04-18-2025 BP Controlled (<130/80) BP Controlled (<130/80) [facility] Start: 04-04-2025 BP Controlled (<130/80) BP Controlled (<130/80) [facility] Start: 04-04-2025 Hepatitis B surface antibody level LDL Cholesterol [facility] Start: 03-27-2025 End: 03-27-2025 Patient encounter procedure Neurology Comment on above: 4 month follow up Follow up for diabet ic foot care Spinal stenosis of l umbar region with neurogenic claudication [M48.062] Start: 03-14-2025 End: 03-14-2025 Patient encounter procedure 03/14/2025 2:30 PM EDT Office Visit Family Medicine [address] [place] [address] [place] [phone] Abhinav Miller, DO [address] [place] [phone] est care Family Medicine Comment on above: est care Start: 03-14-2025 End: 03-14-2025 Patient encounter procedure 03/14/2025 8:45 AM EDT Office Visit Spine Medicine [address] [place] [address] Tammi Garcia, DO [address] [place], [place] [phone] Eval of spine Spine Medicine Comment on above: Eval of spine Start: 03-13-2025 End: 03-13-2025 ambulatory 03/13/2025 10:00 AM EDT OT/PT/Speech Visit [facility] [address] [place] [address] Leon Hunyh, OTR/L [address] [place] [address] [address] [facility] Comment on above: $[address] Start: 03-03-2025 End: 03-03-2025 Patient encounter procedure Ophthalmology Comment on above: eyes need rechecked per OT visit follow up Start: 03-01-2025 End: 03-01-2025 Patient encounter procedure 03/01/2025 12:10 PM EDT Office Visit Internal Medicine [facility] [address] [place] [address] Aga Benitez MD [address] [place] [address] Confusion Internal Medicine [facility] Comment on above: Confusion Start: 2025 Patient referral [facility] Work Phone: Start: 02-05-2025 Hemoglobin A1c measurement HbA1C [facility] Start: 01-23-2025 Hemoglobin A1c measurement HbA1C [facility] Start: 01-16-2025 End: 01-16-2025 Patient encounter procedure 01/16/2025 3:00 PM EDT Office Visit Neurology [address] [facility] [place] [phone] Miranda Del Rio MD [address] [facility] [place] [address] 4 month follow up Neurology Comment on above: 4 month follow up Start: 11-10-2024 End: 11-10-2024 Patient encounter procedure 11/10/2024 2:30 PM EST Office Visit Vasculary Surgery [address] [place], [place] [phone] Diminished pulses in lower extremity [R09.89] Vasculary Surgery Comment on above: Diminished pulses in lower extremity [R0 9.89] Start: 11-09-2024 End: 11-09-2024 Patient encounter procedure 11/09/2024 11:10 AM EST Office Visit Internal Medicine [facility] [address] [place] [address] Aga Benitez MD [address] [place] [address] 3 month follow up Internal Medicine [facility] Comment on above: 3 month follow up Start: 11-08-2024 End: 2025 CBC W Auto Differential panel - Blood COMPLETE BLOOD COUNT AND DIFFERENTIAL Lab Routine Anemia, unspecified type Expected: 11/08/2024, Expires: 2025 [facility] Comment on above: Expected: 11/08/2024, Expires: Start: 11-08-2024 End: 2025 Comprehensive metabolic 2000 panel - Serum or Plasma COMPREHENSIVE METABOLIC PANEL Lab Routine Type 2 diabetes mellitus without complication, without long-term current use of insulin (HCC) Expected: 11/08/2024, Expires: 2025 [facility] Work Phone: Comment on above: Expected: 11/08/2024, Expires: Start: 11-08-2024 End: 2025 Hemoglobin A1c in Blood HEMOGLOBIN A1C Lab Routine Type 2 diabetes mellitus without complication, without long-term current use of insulin (HCC) Expected: 11/08/2024, Expires: 2025 [facility] Comment on above: Expected: 11/08/2024, Expires: Start: 11-08-2024 End: 2025 Microalbumin/Creatinine [Mass Ratio] in Urine ALBUMIN/CREATININE RATIO, URINE Lab Routine Type 2 diabetes mellitus without complication, without long-term current use of insulin (HCC) Expected: 11/08/2024, Expires: 2025 [facility] Comment on above: Expected: 11/08/2024, Expires: Start: 11-08-2024 End: 2025 Prostate specific Ag [Mass/volume] in Serum or Plasma PROSTATE-SPECIFIC ANTIGEN DIAGNOSTIC Lab Routine Benign prostatic hyperplasia without lower urinary tract symptoms Expected: 11/08/2024, Expires: 2025 [facility] Comment on above: Expected: 11/08/2024, Expires: Start: 11-08-2024 End: 11-08-2024 Patient encounter procedure 11/08/2024 1:30 PM EST Office Visit Urology [address] [place] [address] Samuel Desai PA-C [address] [place] [address] Benign prostatic hyperplasia without lower urinary tract symptoms [N40.0] Urology Comment on above: Benign prostatic hyperplasia without low er urinary tract symptoms [N40.0] Start: 11-08-2024 End: 11-08-2024 Patient encounter procedure Podiatry Comment on above: Type 2 diabetes mellitus without complic ation, without long-term current use of insulin (HCC) [E11.9] Start: 10-25-2024 Prostate specific antigen measurement Prostate Cancer Screening Discussion [facility] Start: 10-20-2024 End: 10-20-2024 Patient encounter procedure 10/20/2024 3:45 PM EST Office Visit Podiatry [address] [place] [address] Kate Belcher [address] [address] Type 2 diabetes mellitus without complication, without long-term current use of insulin (HCC) [E11.9] Podiatry Comment on above: Type 2 diabetes mellitus without complic ation, without long-term current use of insulin (HCC) [E11.9] Start: 10-11-2024 End: 10-11-2024 Patient encounter procedure 10/11/2024 8:15 AM EST Office Visit [facility] Ophthalmology [address] [place] [id number] Luna Hannon, OD [address] [place] [address] Screening for diabetic retinopathy [Z13.5] Ophthalmology Comment on above: Screening for diabetic retinopathy [Z13. 5] Start: 10-05-2024 Advance Directive Discussion Advance Directive Discussion [facility] Start: 10-05-2024 Medicare Advantage Annual Wellness Visit Medicare Advantage Annual Wellness Visit [facility] Start: 08-28-2024 Hemoglobin A1c measurement HbA1C [facility] Start: 08-11-2024 End: 08-11-2024 Patient encounter procedure 08/11/2024 9:30 AM EST Office Visit [facility] Ophthalmology [address] [place], [place] [id number] Napoleon Meneses, OD [address] [place] [address] Screening for diabetic retinopathy [Z13.5] Ophthalmology Comment on above: Screening for diabetic retinopathy [Z13. 5] Start: 08-08-2024 End: 08-08-2024 Patient encounter procedure 08/08/2024 3:30 PM EST Office Visit Neurology [address] [facility] [place] [address] Miranda Del Rio MD [address] [facility] [address] [place], [place] [phone] 4 month follow up Neurology Comment on above: 4 month follow up Start: 08-08-2024 End: 11-07-2024 Ferritin [Mass/volume] in Serum or Plasma [facility] Comment on above: Expected: 08/08/2024, Expires: Start: 08-08-2024 End: 11-07-2024 Iron and Iron binding capacity panel - Serum or Plasma [facility] Comment on above: Expected: 08/08/2024, Expires: Start: 08-08-2024 End: 08-08-2024 Patient encounter procedure 08/08/2024 10:30 AM EST Office Visit Internal [facility] [address] [facility] [place] [address] Aga Benitez MD [address] [place] [address] follow up for hospital visit Internal Medicine [facility] Comment on above: follow up for hospital visit Start: 08-04-2024 End: 08-04-2024 Patient encounter procedure 08/04/2024 3:00 PM EDT Office Visit [facility] Internal Medicine [facility] [address] [place] [phone] Rashawn Monge DO [address] [place] [address] [facility] Medicine [facility] Start: 07-27-2024 End: 07-27-2024 Patient encounter procedure 07/27/2024 12:10 PM EDT Office Visit Internal [facility] [address] [place] [address] Aga Benitez MD [address] [place] [address] 3 month follow up Internal [facility] Comment on above: 3 month follow up Start: 07-19-2024 End: 10-18-2024 Hemoglobin A1c in Blood HEMOGLOBIN A1C Lab Routine Type 2 diabetes mellitus without complication, without long-term current use of insulin (HCC) Expected: 07/19/2024, Expires: 10/18/2024 [facility] Work Phone: Comment on above: Expected: 07/19/2024, Expires: Start: 07-19-2024 End: 10-18-2024 Lipid 1996 panel - Serum or Plasma LIPID PANEL BASIC Lab Routine Mixed hyperlipidemia Expected: 07/19/2024, Expires: 10/18/2024 [facility] Comment on above: Expected: 07/19/2024, Expires: Start: 07-07-2024 End: 07-07-2024 Patient encounter procedure 07/07/2024 3:15 PM EDT Office Visit Cardiology [address] [place] [phone] Marcell Jensen MD [facility] [address] [place] [address] Main, Nurse Card [facility] [address] [place] [address] DX: Chronic systolic heart failure Cardiology Comment on above: DX: Chronic systolic heart failure Start: 07-07-2024 End: 07-07-2024 Patient encounter procedure 07/07/2024 1:30 PM EDT Office Visit Vascular Medicine [address] [place] [address] DX: Chronic systolic heart failure Vascular Medicine Comment on above: DX: Chronic systolic heart failure Start: 06-09-2024 End: 04-08-2025 SPECT Heart for infarct W Tc-99m PYP IV NM SPECT/CT CARDIAC AMYLOID Radiology Routine Heart failure with mildly reduced ejection fraction (HFmrEF) ([facility]) Expected: 06/09/2024, Expires: 04/08/2025 [facility] Comment on above: Expected: 06/09/2024, Expires: Start: 06-05-2024 COVID-19 Vaccine () COVID-19 Vaccine () [employer] Start: 06-05-2024 Covid-19 Vaccine (5 - 2024-25 season) Covid-19 Vaccine ( season) [facility] Start: 06-05-2024 Influenza vaccination [facility] Start: 05-28-2024 End: 05-28-2024 Orders Only 05/28/2024 Orders Only Cardiology [address] [place] [address] Marcell Jensen MD [facility] [address] [place], [place] [phone] Cardiology Start: 05-26-2024 End: 08-25-2024 Basic metabolic 2000 panel - Serum or Plasma BASIC METABOLIC PANEL Lab Routine Heart failure with mildly reduced ejection fraction (HFmrEF) ([facility]) Expected: 05/26/2024, Expires: 08/25/2024 [facility] Work Phone: Comment on above: Expected: 05/26/2024, Expires: Start: 05-26-2024 End: 05-26-2024 Follow-up encounter Cardiology Comment on above: Medication Optimization follow up Start: 05-25-2024 End: 05-25-2024 Patient encounter procedure 05/25/2024 11:10 AM EDT Office Visit Internal Medicine [facility] [address] [place] [address] Aga Benitez MD [address] [place] [address] a new primary care within [facility] Internal Medicine [facility] Comment on above: a new primary care within [facility] ic Start: 05-12-2024 End: 05-12-2024 Patient encounter procedure 05/12/2024 2:15 PM EDT Office Visit Cardiology [address] [place] [address] Marcell Jensen MD [facility] [address] [place] [address] Main, Nurse Card [facility] [address] [place] [address] CHF Cardiology Comment on above: CHF Start: 05-12-2024 End: 05-12-2024 Patient encounter procedure 05/12/2024 12:45 PM EDT Appointment Molecular Imaging [address] [place] [address] [place] SPECT/CT CARD AMYLOID Molecular Imaging Comment on above: NM SPECT/CT CARD AMYLOID Start: 05-12-2024 End: 05-12-2024 Patient encounter procedure Molecular Imaging Comment on above: NM SPECT/CT CARD AMYLOID CHF Start: 04-29-2024 End: 04-29-2024 Follow-up encounter 04/29/2024 12:30 PM EDT [facility] Cardiology [address] [place] [address] Marcell Jensen MD [facility] [address] [place] [address] CHF follow up Cardiology Comment on above: CHF follow up Start: 04-29-2024 End: 04-29-2024 Patient encounter procedure 04/29/2024 12:15 PM EDT Office Visit Cardiology [address] [place] [address] Marcell Jensen MD [facility] [address] [place] [address] Main, Nurse Card Chf [address] [place] [address] CHF follow up Cardiology Comment on above: CHF follow up Start: 04-28-2024 End: 04-28-2024 ambulatory Cardiology Comment on above: Medication Optimization NEW Start: 04-21-2024 End: 04-21-2024 Patient encounter procedure 04/21/2024 1:50 PM EDT Office Visit Cardiology [address] [address] CHF follow up Cardiology Comment on above: CHF follow up Start: 04-19-2024 End: 04-19-2024 Patient encounter procedure 04/19/2024 10:45 AM EDT Appointment Molecular Imaging [address] [place] [address] NM SPECT/CT CARD AMYLOID Molecular Imaging Comment on above: NM SPECT/CT CARD AMYLOID Start: 04-19-2024 End: 04-19-2024 Patient encounter procedure 04/19/2024 7:45 AM EDT Appointment Molecular Imaging [address] [place] [address] NM SPECT/CT CARD AMYLOID Molecular Imaging Comment on above: NM SPECT/CT CARD AMYLOID Start: 04-18-2024 End: 04-18-2024 Patient encounter procedure 04/18/2024 1:50 PM EDT Office Visit Internal Medicine [facility] [address] [place] [address] Aga Benitez MD [address] [place] [address] a new primary care within [facility] Internal Medicine [facility] Comment on above: a new primary care within [facility] ic Start: 04-04-2024 End: 04-04-2024 Patient encounter procedure 04/04/2024 2:00 PM EDT Office Visit Neurology [address] [place] [phone] Miranda Del Rio MD [address] [place], [place] [id number] Parkinsonism, unspecified Parkinsonism type (HCC) [G20.C] Neurology Comment on above: Parkinsonism, unspecified Parkinsonism t ype (HCC) [G20.C] Start: 04-01-2024 End: 04-01-2024 Patient encounter procedure 04/01/2024 4:00 PM EDT [facility] [address] [place], [place] [id number] Marcell Jensen MD [facility] [address] [place] [id number] DX: Chronic systolic heart failure Cardiology Comment on above: DX: Chronic systolic heart failure Start: 04-01-2024 End: 07-01-2024 Basic metabolic 2000 panel - Serum or Plasma BASIC METABOLIC PANEL Lab Routine Heart failure with mildly reduced ejection fraction (HFmrEF) (HCC) Expected: 04/01/2024, Expires: 07/01/2024 [facility] Work Phone: Comment on above: Expected: 04/01/2024, Expires: Start: 04-01-2024 End: 07-01-2024 KAPPA/WANG,FREE,SER KAPPA/WANG,FREE,SER Lab Routine Heart failure with mildly reduced ejection fraction (HFmrEF) ([facility]) Expected: 04/01/2024, Expires: 07/01/2024 [facility] Comment on above: Expected: 04/01/2024, Expires: Start: 04-01-2024 End: 07-01-2024 LIPID PANEL, NONFASTING LIPID PANEL, NONFASTING Lab Routine Heart failure with mildly reduced ejection fraction (HFmrEF) ([facility]) Expected: 04/01/2024, Expires: 07/01/2024 [facility] Comment on above: Expected: 04/01/2024, Expires: Start: 04-01-2024 End: 07-01-2024 PROTEIN ELECTROPHORESIS SERUM W/INTERP PROTEIN ELECTROPHORESIS SERUM W/INTERP Lab Routine Heart failure with mildly reduced ejection fraction (HFmrEF) ([facility]) Expected: 04/01/2024, Expires: 07/01/2024 [facility] Comment on above: Expected: 04/01/2024, Expires: Start: 03-23-2024 End: 03-23-2024 Patient encounter procedure 03/23/2024 1:30 PM EDT Office Visit [facility] [address] [place] [phone] [place] Star[place] [address] [place] [address] blockage, found in US at [facility] 01/18/24, referring provider Dr. No [facility] Comment on above: blockage, found in US at [facility] 01/18/24, referring provider Dr. No Start: 03-09-2024 End: 06-08-2024 Basic metabolic 2000 panel - Serum or Plasma BASIC METABOLIC PANEL Lab Routine Heart failure with mildly reduced ejection fraction (HFmrEF) ([facility]) Expected: 03/09/2024, Expires: 06/08/2024 [facility] Comment on above: Expected: 03/09/2024, Expires: Start: 03-09-2024 End: 06-08-2024 KAPPA/WANG,FREE,SER KAPPA/WANG,FREE,SER Lab Routine Heart failure with mildly reduced ejection fraction (HFmrEF) ([facility]) Expected: 03/09/2024, Expires: 06/08/2024 [facility] Comment on above: Expected: 03/09/2024, Expires: Start: 03-09-2024 End: 06-08-2024 Lipid 1996 panel - Serum or Plasma LIPID PANEL BASIC Lab Routine Cerebrovascular accident (CVA) due to embolism of precerebral artery ([facility]) Expected: 03/09/2024, Expires: 06/08/2024 [facility] Comment on above: Expected: 03/09/2024, Expires: Start: 03-09-2024 End: 06-08-2024 PROT ELECT SERUM WITH CECILIA AND INTERP PROT ELECT SERUM WITH CECILIA AND INTERP Lab Routine Heart failure with mildly reduced ejection fraction (HFmrEF) ([facility]) Expected: 03/09/2024, Expires: 06/08/2024 [facility] Comment on above: Expected: 03/09/2024, Expires: Start: 02-26-2024 End: 02-26-2024 Patient encounter procedure 02/26/2024 8:15 AM EDT Office Visit Vascular Medicine [address] [place] [address] Donn Solomon DO [address] [place], [place] [id number] Multiple strokes, recent US revealed Block 45%, channels were operating at 30%, patient will hand-carry US on CD, scheduled with daughter, Carmina Morgan [phone] Vascular Medicine Comment on above: Multiple strokes, recent US revealed Blo ck 45%, channels were operating at 30%, patient will hand-carry US on CD, scheduled with daughter, Carmina Morgan [phone] Start: 02-01-2024 End: 02-01-2024 Patient encounter procedure 02/01/2024 2:45 PM EDT Office Visit Orthopaedics [address] [place] [address] Kai Bai MD [address] [place] [address] bilateral knee consult Orthopaedics Comment on above: bilateral knee consult Start: 12-08-2023 End: 03-08-2024 CBC panel - Blood by Automated count [facility] Work Phone: Comment on above: Expected: 12/08/2023, Expires: Start: 12-08-2023 End: 03-08-2024 Comprehensive metabolic 2000 panel - Serum or Plasma [facility] Work Phone: Comment on above: Expected: 12/08/2023, Expires: Start: 12-08-2023 End: 03-08-2024 Thyrotropin [Units/volume] in Serum or Plasma [facility] Work Phone: Comment on above: Expected: 12/08/2023, Expires: Start: 10-05-2023 Advance Directive Discussion Advance Directive Discussion [facility] Start: 10-05-2023 Medicare Advantage Annual Wellness Visit Medicare Advantage Annual Wellness Visit [facility] Start: 08-06-2023 Patient referral [facility] Work Phone: Start: 06-05-2023 Covid-19 Vaccine ( season) Covid-19 Vaccine ( season) [facility] Start: 06-05-2023 Influenza vaccination Influ[facility] Start: 04-23-2023 Patient referral [facility] Work Phone: Start: 2023 Pneumococcal Vaccine: 65+ (1 of 1 - PCV) Pneumococcal Vaccine: 65+ (1 of 1 - PCV) [facility] Start: 2018 RSV Immunization for Adults (1 - Risk 60-74 years 1-dose series) RSV Immunization for Adults (1 - Risk 60-74 years 1-dose series) [facility] Start: 2018 RSV Vaccine (1 - 1-dose 60+ series) RSV Vaccine (1 - 1-dose 60+ series) [facility] Start: 2018 RSV Vaccine (1 - Risk 60-74 years 1-dose series) RSV Vaccine (1 - Risk 60-74 years 1-dose series) [facility] Start: 10-10-2013 MMR Vaccines (1 of 1 - Standard series) MMR Vaccines (1 of 1 - Standard series) [facility] Start: 2003 Diabetes Screening Diabetes Screening [facility] Start: 2003 Screening for malignant neoplasm of colon [facility] Start: 1993 Lipid panel Lipid Screening [facility] Start: 1977 DTaP/Tdap/Td Vaccines (1 - Tdap) DTaP/Tdap/Td Vaccines (1 - Tdap) [facility] Start: 1977 Pneumococcal Vaccine: 50+ (1 of 2 - PCV) Pneumococcal Vaccine: 50+ (1 of 2 - PCV) [facility] Start: 1977 Urine microalbumin profile DTaP,Tdap,Td Vaccine (1 - Tdap) [facility] Start: 02-08-1976 Annual PCP Team Chronic Disease Visit Annual PCP Team Chronic Disease Visit [facility] Start: 02-08-1976 Anxiety Screening Anxiety Screening [facility] Start: 02-08-1976 BP Controlled (<130/80) BP Controlled (<130/80) [facility] Start: 02-08-1976 Diabetes: Urine Albumin-Creatinine Ratio for Kidney Health Diabetes: Urine Albumin-Creatinine Ratio for Kidney Health [facility] Start: 02-08-1976 Hepatitis B surface antibody level LDL Cholesterol [facility] Start: 02-08-1976 Hepatitis C screening Hepatitis C Screening [facility] Start: 02-08-1976 HIV screening HIV Screening [facility] Start: 1970 Depression Monitoring Depression Monitoring [facility] Start: 02-08-1968 Diabetic foot examination [facility] Start: 02-08-1968 Glaucoma screening [facility] Start: 02-08-1968 Hepatitis B screening Urine Albumin:Creatinine Ratio [facility] Start: 02-08-1968 Preventive dental service Diabetes: Dental Exam [facility] Start: 02-08-1964 Pneumococcal Vaccine: 65+ (1 of 2 - PCV) Pneumococcal Vaccine: 65+ (1 of 2 - PCV) [facility] Start: 02-08-1964 Pneumococcal Vaccine: 65+ Years (1 of 2 - PCV) Pneumococcal Vaccine: 65+ Years (1 of 2 - PCV) [facility] Start: 1958 Echocardiography Echocardiogram [facility] Start: 1958 Lipid panel Lipid Panel [facility] Start: 1958 Screening for malignant neoplasm of colon [facility] Bacteria identified in Blood by Culture [facility] Work Phone: BLADDER SCAN BLADDER SCAN Pro cedures Routine Screening for genitourinary condition Ordered: 04/26/2025 [facility] Work Phone: Comment on above: Ordered: 04/26/2025 End: 02-05-2025 CT Neck W contrast IV CTA NECK W IVCON Radiology Routine Cerebral infarction, unspecified mechanism (HCC) 1 Occurrences starting 01/07/2024 until 02/05/2025 [facility] Work Phone: Comment on above: 1 Occurrences starting 01/07/2024 until 02/05/2025 End: 02-05-2025 CTA Head Arteries W contrast IV CTA HEAD W IVCON Radiology Routine Cerebral infarction, unspecified mechanism (HCC) 1 Occurrences starting 01/07/2024 until 02/05/2025 [facility] Work Phone: Comment on above: 1 Occurrences starting 01/07/2024 until 02/05/2025 End: 02-25-2025 Echocardiography ECHO Cardiology Routine Essential (primary) hypertension Heart failure with mildly reduced ejection fraction (HFmrEF) (HCC) 1 Occurrences starting 02/26/2024 until 02/25/2025 [facility] Work Phone: Comment on above: 1 Occurrences starting 02/26/2024 until 02/25/2025 Lipid 1996 panel - S nicole or Plasma [facility] End: 01-06-2025 MR Brain WO contrast MRI BRAIN WO IVCON Radiology Routine Tremor 1 Occurrences starting 12/08/2023 until 01/06/2025 [facility] Work Phone: Comment on above: 1 Occurrences starting 12/08/2023 until 01/06/2025 End: 04-13-2026 MR Lumbar spine WO contrast MRI LUMBAR SPINE WO IVCON Radiology Routine Spinal stenosis of lumbar region with neurogenic claudication Weakness of both lower extremities 1 Occurrences starting 03/14/2025 until 04/13/2026 [facility] Work Phone: Comment on above: 1 Occurrences starting 03/14/2025 until 04/13/2026 OUTSIDE VENDOR CARDI AC OUTPATIENT EXTENDED RHYTHM RECORDING (WITHOUT TELEMETRY) OUTSIDE VENDOR CARDIAC OUTPATIENT EXTENDED RHYTHM RECORDING (WITHOUT TELEMETRY) Holter Routine Heart failure with mildly reduced ejection fraction (HFmrEF) ([facility]) Ordered: 02/26/2024 [facility] Comment on above: Ordered: 02/26/2024 Patient referral [facility] Work Phone: End: 10-20-2025 US.doppler Extremity arteries - bilateral for physiologic artery study [facility]VR [facility]K [facility] Lab Routine Diminished pulses in lower extremity 1 Occurrences starting 10/20/2024 until 10/20/2025 [facility] Work Phone: Comment on above: 1 Occurrences starting 10/20/2024 until 10/20/2025 End: 03-27-2026 US.doppler Extremity arteries - bilateral for physiologic artery study PVR ANK PRESS [facility] Vascular Lab Routine Diabetic polyneuropathy associated with type 2 diabetes mellitus ([facility]) Ingrowing toenail Diminished pulses in lower extremity 1 Occurrences starting 03/27/2025 until 03/27/2026 [facility] Work Phone: Comment on above: 1 Occurrences starting 03/27/2025 until 03/27/2026 End: 02-24-2025 XR Knee - bilateral 4 Views XR KNEE GENERAL 4V AP BOTH/PA BOTH/LAT/MERC BILATERAL Radiology Routine Pain in both knees, unspecified chronicity 1 Occurrences starting 01/26/2024 until 02/24/2025 [facility] Work Phone: Comment on above: 1 Occurrences starting 01/26/2024 until 02/24/2025 [facility] Immunizations Immunization Date Immunization Notes Care Provider Rosita mayo 11-19-2022 Covid Pfizer Bivalen t Booster Dr. Amaya No Work Phone: [facility] 08-20-2021 Covid (Pfizer) Dr. Amaya brenner Work Phone: [facility] 2021 Covid (Moderna) Dr. Amaya rinaldi Work Phone: [facility] 01-10-2021 Covid (Moderna) Dr. Amaya rinaldi Work Phone: [facility] 08-13-2018 influenza, injectabl e, quadrivalent, preservative free Dr. Amaya No Work Phone: [facility] 08-13-2018 influenza, seasonal, injectable Dr. Amaya No Work Phone: [facility] 08-13-[address] Amaya No Work Phone: [facility] 08-13-2018 influenza virus vaccine, unspecified formulation Carla Weir PA-C Work Phone: [facility] 03-08-[address] Amaya No Work Phone: [facility] 09-12-2013 zoster vaccine, live Dr. Ted No Work Phone: [facility] Payers Date Payer Category Payer Medicaid [place]ICAID [place] [id number] 2025 Medicaid [id number] 2024 Medicare O [facility] AAR MEDICAR E ADVANTAGE [id number] 2023 Medicare UHC AAR MEDICAR E [facility] MEDICARE O [id number] 2023-Present [phone] [address] [address] [place] [address] O [id number] 2023 Medicare (Managed Care) [facility] MEDICARE HMO [id number] 2023 Unknown [id number] 2023 Unknown [id number] [id number]. [id number] 2022 Self-pay 1960 Unknown [id number] 2.16.840.1.604003.3.579.2. 627 1960 Unknown [id number] .840.1.214339.3.579.2. 627 Medicare MEDICARE PART A B [id number] Medicare [id number] Unknown [id number] Unknown [id number] 2.16.840.1.860899.3.579.2. 462 Unknown [id number] .840.1.875726.3.579.2. 462 Unknown [id number] 2.840.1.209572.3.579.2. 462 Unknown [id number] 2.840.1.093761.3.579.2. 462 Unknown [id number] 2.840.1.751598.3.579.2. 462 Unknown [id number] 2.840.1.076065.3.579.2. 462 Unknown [id number] 2.16840.1.950476.3.579.2. 462 Unknown [id number] 2.840.1.822781.3.579.2. 462 Unknown [id number] 2.840.1.067246.3.579.2. 462 Unknown [id number] 2.840.1.890858.3.579.2. 462 Unknown [id number] 2.16840.1.755969.3.579.2. 462 Unknown [id number] 2.16.840.1.828415.3.579.2. 462 Unknown [id number] 2.16.840.1.623514.3.579.2. 462 Unknown [id number] 2.840.1.596696.3.579.2. 462 Unknown [id number] 2.16.840.1.018805.3.579.2. 462 Unknown [id number] 2.16.840.1.708077.3.579.2. 462 Unknown [id number] 2.16.840.1.810905.3.579.2. 462 Unknown [id number] 2.16.840.1.578052.3.579.2. 462 Unknown [id number] 2.16.840.1.698826.3.579.2. 462 Unknown [id number] 2.16.840.1.663487.3.579.2. 462 Unknown [id number] 2.16.840.1.358205.3.579.2. 462 Unknown [id number] 2.16.840.1.166639.3.579.2. 462 Unknown [id number] 2.16.840.1.805068.3.579.2. 462 Unknown [id number] 2.16.840.1.422540.3.579.2. 462 Unknown [id number] 2.16.840.1.936802.3.579.2. 462 Unknown [id number] 2.16.840.1.769415.3.579.2. 462 Social History Date Type Detail Facility Start: 04-30-2023 End: 01-13-2024 Tobacco smoking status COIS Unknown if ever smoked [facility] Start: 1960 Sex Assigned At Male [facility] Start: 1960 Sex Assigned At Not on file [facility] Start: 01-05-2024 End: 04-18-2024 Gender identity Not on file [facility] Start: 01-05-2024 End: 04-18-2024 History of Social function [facility] Start: 03-29-2020 National Score (1-10 0), lower number is lower risk 35 [facility] Start: 02-01-2024 Gender identity Identifies as male gender (finding) [facility] Start: 02-26-2024 End: 05-26-2025 Tobacco smoking status NHIS Never smoked tobacco [facility] Work Phone: Start: 02-26-2024 End: 07-25-2024 Tobacco use and exposure Smokeless tobacco non-user [facility] Start: 02-26-2024 End: 05-24-2025 Alcohol intake Ex-drinker (finding) [facility] Start: 04-18-2024 Alcohol Comment none now [facility] Has the [employer] threatened to shut off services in your home in past 12Mo No [facility] Are you now , , , , never or living with a partner? [facility] How often to you hav e a drink containing alcohol? Never [facility] How hard is it for y ou to pay for the very basics like food, housing, medical care, and heating Not very hard [facility] Do you feel stress - tense, restless, nervous, or anxious, or unable to sleep at night because your mind is troubled all the time - these days [OSQ] To some extent [facility] (I/We) worried wheth er (my/our) food would run out before (I/we) got money to buy more. Never true [facility] Start: 07-25-2024 Sex Male (finding) [facility] Start: 07-25-2024 Sexual orientation Heterosexual (parth person) [facility] How hard is it for y ou to pay for the very basics like food, housing, medical care, and heating Hard [facility] Medical Equipment Procedure Code Equipment Code Equipment Origin al Text Equipment Identifier Dates ASYMMETRIC PATELLA FDA Start: 06-22-2024 ([id number]) Coated knee femu r prosthesis [id number] FDA Start: 06-22-2024 ([id number]) Coated knee tibi a prosthesis [id number] FDA Start: 06-22-2024 ([id number]) Tibial insert [id number] FDA Start: 06-22-2024 ASYMMETRIC PATELLA FDA Start: 06-22-2024 ASYMMETRIC PATELLA FDA Start: 06-22-2024 ASYMMETRIC PATELLA FDA Start: 06-22-2024 ASYMMETRIC PATELLA FDA Start: 06-22-2024 ASYMMETRIC PATELLA FDA Start: 06-22-2024 Goals Date Patient Goal Desired Activity /State Personal health goal Personal health goal Functional Status Date Assessment Result Facility 05-29-2025 Functional status Ambulates [facility] Work Phone: 05-25-2025 Are you deaf, or do you have serious difficulty hearing No 05/25/2025 2:03 PM EDT Joseph Clark RN No [facility] 05-25-2025 Are you blind, or do you have serious difficulty seeing, even when wearing glasses No 05/25/2025 2:03 PM Joseph Diaz RN No [facility] 05-25-2025 Do you have serious difficulty walking or climbing stairs No 05/25/2025 2:03 PM Joseph Diaz RN No [facility] 05-25-2025 Do you have difficul ty dressing or bathing No 05/25/2025 2:03 PM Joseph Diaz RN No [facility] 05-25-2025 Because of a physica l, mental, or emotional condition, do you have difficulty doing errands alone such as visiting a physician's office or shopping No 05/25/2025 2:03 PM Joseph Diaz RN No [facility] 07-14-2024 Are you deaf, or do you have serious difficulty hearing No 07/14/2024 9:54 AM Lida Saul LPN No [facility] 07-14-2024 Are you blind, or do you have serious difficulty seeing, even when wearing glasses No 07/14/2024 9:54 AM Lida Saul LPN No [facility] 07-14-2024 Do you have serious difficulty walking or climbing stairs Yes 07/14/2024 9:54 AM Lida Saul LPN Yes [facility] 07-14-2024 Do you have difficul ty dressing or bathing Yes 07/14/2024 9:54 AM Lida Saul LPN Yes [facility] 07-14-2024 Because of a physica l, mental, or emotional condition, do you have difficulty doing errands alone such as visiting a physician's office or shopping Yes 07/14/2024 9:54 AM EDT Lida Muñiz LPN Yes [facility] Mental Status Date Assessment Result Facility 05-29-2025 Cognitive function Voice/Name [facility] Work Phone: 05-26-2025 Cognitive function Level Of Cons ciousness Awake;Alert;Appropriate;Fol lows Commands [facility] Work Phone: 05-25-2025 Because of a physica l, mental, or emotional condition, do you have serious difficulty concentrating, remembering, or making decisions No 05/25/2025 2:03 PM EDT Joseph Clark RN No [facility] 07-14-2024 Because of a physica l, mental, or emotional condition, do you have serious difficulty concentrating, remembering, or making decisions Yes 07/14/2024 9:54 AM EDT Lida Muñiz LPN Yes [facility] Clinical Notes 12-03-2023 to 05-29-2025 Note Date & Type Note Facility 05-29-2025 Consult note [facility] 05-29-2025 Discharge summary Note Date/Time May 29, 2025 2:35pm [facility] Medical Records Department [address] [place] [address] Transfer to [facility] MR#: [id number] Acct: [id number] Name: NICK SAN Rep #:[id number] : [id number] 65 From: Manuel noel MD PCP: Dr. Amaya No MD Status:ADM JESSICA Certification of patient admission REQUIRED AT TIME OF ADMISSION. I CERTIFY THAT POST-HOSPITAL ECF SERVICES ARE REQUIRED TO BE GIVEN ON AN IN-PATIENT BASIS BECAUSE OF THE ABOVE NAMED PATIENT'S NEED FOR FPC CARE ON A CONTINUING BASIS FOR THE CONDITION(S) FOR WHICH HE/SHE WAS RECEIVING IN-PATIENT HOSPITAL SERVICES PRIOR TO HIS/HER TRANSFER TO THE F. 05/29/25 1435<Electronically signed by Manuel Dorantes MD> Diet Diet Order/Speech Therapy: INPATIENT Hospital Diet / Speech Therapy Order(s) 05/26/25 16:06 Diet: Cardiac - Heart Healthy Food consistency:: Regular Liquid Consistency:: Regular/Thin Routine Orders/Code Status Routine Lab Work: CBC and BMP Code Status: Full Code DC O2, CPAP, BIPAP needs Home O2 Discharge instructions: No Wound(s) Back: Wound Type: Surgical Incision Therapies Physical Therapy: Eval and Treat Occupational Therapy: Eval and Treat Problem/Diagnosis (1) Generalized weakness: Status: Acute Code(s): R53.1 - Weakness Plan 1. Debility and weakness after lumbar spine surgery at [facility] in the setting of Parkinson's disease with dementia ? PT/OT for placement ? He had an L3-5 decompressive laminectomy on 05/24/2025 and was discharged home ? He has significant debility with getting up from a seated position or laying position ? Consult case management for discharge planning and possible placement ? He is on Sinemet for his Parkinson's ? He is also on trazodone and Seroquel for sleep at night at home it does not appear that these were continued here in the hospital 2. DM2 ? Sliding scale insulin ? Accu-Cheks ? Will monitor make adjustments as necessary ? Will hold his Jardiance 3. Essential HTN/HLD/history of CVA ? Continue with his home blood pressure medications ? Will monitor make adjustments as necessary ? Continue with his statin ? Continue with aspirin 4. Anxiety/depression ? Continue with his home medications ? Stable 5. GERD ? Stable ? Continue with PPI 6. BPH with obstruction ? Stable ? Continue with Flomax DVT: Lovenox Allergies/Procedures Done in Hospital Allergies acetaminophen (From Vicodin) Allergy (Intermediate, Verified 05/26/25 10:29) Nausea/Vom/Diarrhea hydrocodone (From Vicodin) Allergy (Intermediate, Verified 05/26/25 10:29) Nausea/Vom/Diarrhea gabapentin Allergy (Mild, Verified 05/26/25 10:29) memory behaviors Procedures: None Type of Care/Length of Stay Estimated LOS: Convalescent Care Less Than 30 days Type of Care Needed: Skilled Rehab Potential: Good Prognosis: Good Additional Orders/Day of Discharge Day of Discharge: 05/29/25 Discharge Plan Admission Admit Date/Time: 05/26/25 14:34 Attending Provider: Kotsonis,Manuel F Primary Care Provider: Amaya No Consulting Providers: Jos Teresa; Mishel Vivar Discharge Orders/Prescriptions Prescriptions: Continued clonidine HCl 0.2 mg tablet 0.2 mg PO BID Qty: 180 1RF citalopram 40 mg tablet 40 mg PO DAILY Qty: 90 1RF oxycodone 5 mg tablet 5 mg PO 4X/DAY PRN PRN (Reason: pain) lisinopril 10 mg tablet 10 mg PO QDAY Qty: 90 1RF pantoprazole 40 mg tablet,delayed release (DR/EC) 40 mg PO BID Qty: 180 1RF tamsulosin 0.4 mg capsule 0.4 mg PO QHS Qty: 90 1RF carbidopa-levodopa 25-100 mg tablet 2 tab PO TID acetaminophen 500 mg tablet 1,000 mg PO Q8 Qty: 90 0RF aspirin 81 mg tablet,delayed release (DR/EC) 81 mg PO DAILY Qty: 90 0RF dapagliflozin propanediol 10 mg tablet 10 mg PO DAILY Qty: 90 0RF atorvastatin 20 mg tablet 20 mg PO QHS Qty: 90 0RF Referrals / Follow Up: Amaya No MD [Primary Care Provider] - Disposition Disposition (needs filled in before D/C Order can be placed): Assisted Facility 05/29/25 1435 <Electronically signed by Manuel Dorantes MD> Cosigner Signature (if applicable): CC: Dr. Jos Teresa DO; Dr. Amaya No MD; Dr. Mishel Vivar MD~ [facility] Work Phone: 1(791) 509-765208-25-2025 Discharge summary [facility] Medical Records Department [address] [place] [address] Discharge Summary 05/29/25 1544 MR#: [id number] Acct: [id number] Name: NICK SAN Radha Rep #:[id number] : 1960 65 From: Manuel noel MD PCP: Dr. Amaya No MD Status:ADM JESSICA Location: [place] [address] Providers Date of Admission: 05/26/25 Primary Care Physician: Dr. Amaya No MD Reason For Visit: WEAKNESS, RECENT L SPINE SURGERY Diagnosis Discharge Diagnosis (1) Generalized weakness: Status: Acute Code(s): R53.1 - Weakness Medications at Discharge Home Medications citalopram 40 mg tablet 40 mg PO DAILY DEPRESSION #90 TABLETS 02/07/25 clonidine HCl 0.2 mg tablet 0.2 mg PO BID BP #180 tabs 02/07/25 lisinopril 10 mg tablet 10 mg PO QDAY #90 tabs 02/08/25 pantoprazole 40 mg tablet,delayed release 40 mg PO BID #180 tabs 02/08/25 tamsulosin 0.4 mg capsule 0.4 mg PO QHS PROSTATE #90 caps 02/08/25 carbidopa 25 mg-levodopa 100 mg tablet 2 tab PO TID PARKINSON 02/09/25 acetaminophen 500 mg tablet 1,000 mg (2 x 500 mg) PO Q8 #90 tabs 03/27/25 aspirin 81 mg tablet,delayed release 81 mg PO DAILY HEART HEALTH #90 tabs 03/27/25 dapagliflozin propanediol 10 mg tablet 10 mg PO DAILY CHOLESTEROL #90 tabs 03/27/25 oxycodone 5 mg tablet 5 mg PO 4X/DAY PRN PRN pain 05/26/25 atorvastatin 20 mg tablet 20 mg PO QHS #90 tabs 05/29/25 quetiapine 25 mg tablet 50 mg (2 x 25 mg) PO QHS #0 tabs 05/29/25 Hospital Course Operations None Procedures None Summary of Care Provided Minutes Spent on Discharge: 33 Hospital Course: Per HPI: NICK SAN, is a 65 M who presented to [facility] on 05/26/2025 with generalized weakness after recent lumbar spine procedure. [facility] records reviewed. Patient had L3-5 decompressive laminectomy procedure done at [facility] on 05/24 for history of lumbar canal stenosis with neurogenic claudication and difficulty with ambulation. Patient tolerated the procedure well and had borderline therapy scores there but opted to be discharged home with home healthcare on 05/25. Lives at home with his . Daughter is in town from [place] and noted that family pushed for SNF placement but patient ultimately decided for home health care. However, he has had general weakness at home and suffered a fall yesterday in the bathroom; noted he had difficulty gettingoff the toilet and fell backwards, hitting his head and lower back against the wall. Notes that hislow back pain has been somewhat worse since that fall and given his level of debility, daughter broughthim in for evaluation for placement. In the ED he was hemodynamically stable onroom air at rest.CBC and BMP were benign. CT brain/C/T-spine were largely unremarkable. CT L-spine showed known degenerative changes with postoperative changes noted, no new concerning findings. Chest x-ray was unremarkable. Givenpatient is stable from an L-spine standpoint postoperatively, does not require transfer to [facility] at this time. Hospitalist was then contacted for admission. I saw the patient at bedside in the ED, daughter and son-in-law werepresent. Patient was mildly fatigued appearing but otherwise laying back comfortably in bed, conversing normally, in no acute distress. When he attempted to sit up for me to evaluate his back on exam, he had significant weakness noted and was unable to sit up without assistance. He does report postop low back pain that has been tolerable with oxycodone. Notes that his lower extremity numbness and tingling is much improved since the procedure. Denies any other acute concerns currently. Will be admitted for further management. Hospital Course: 1. Debility and weakness after lumbar spine surgery at [facility] in the setting of Parkinson's disease with dementia?65-year-old male recently had an L3-5 decompressive laminectomy on 05/24/2025 at the [facility] and then wasdischarged home. Unfortunately his is 10 years older thanhim and she physically cannot help him out of the chair and so he developed worsening weakness at home and was brought in for possible placement. PT and OT evaluatedhim and he was excepted to the transitional care unit for ongoing rehab. His Parkinson's is stable and his daughter says that he was recently started on Seroquel at home to help him sleep which we will continue on discharge. I discussed with him the plan for discharge today expressed understanding of the risks and benefits of going to the fpc and would like to go today. 2. Type 2 diabetes, essential hypertension, hyperlipidemia, history of CVA, anxiety, depression, GERD, BPH with obstruction are all chronic medical conditions which complicate his care. His home medications were continued whereappropriate Weight / BMI Weight Weight: 196 lb 10.437 oz Body Mass Index (BMI) 26.6 ABG / Lab / Microbiology Data 05/29/25 04:52 05/29/25 04:52 Laboratory: Laboratory Results - last 24 hr 05/29/25 04:52: WBC 8.8, RBC 4.52 L, Hgb 14.0, Hct 41.5, MCV 91.8, MCH 31.0, MCHC 33.7, RDW Std Deviation 41.7, RDW Coeff of Mario 12.3, Plt Count 257, MPV 9.5, Immature Gran % (Auto) 0.300, Neut % (Auto) 60.3, Lymph % (Auto) 29.2, [place]% (Auto) 7.7, Eos % (Auto) 1.8, Baso % (Auto) 0.7, Absolute Neuts(auto) 5.3, Absolute Lymphs (auto) 2.58, Nucleated RBC % 0, Sodium 137, Potassium 4.1, Chloride 100, Carbon Dioxide 24.3, Anion Gap 13, BUN 24 H, Creatinine 0.90, Estim Creat Clear Calc 87.42, Est GFR (MDRD) Non-Af 93, BUN/Creatinine Ratio 26.6 H, Glucose 99, Calcium 9.5 D/C Instructions DC O2, CPAP, BIPAP Needs Home O2 Discharge instructions: No Meaningful Use Info Meaningful Use Meaningful Use Diagnoses (Choose all that apply): None applicable Discharge Plan Admission Admit Date/Time: 05/26/25 14:34 Attending Provider: Manuel Dorantes Primary Care Provider: Amaya No Consulting Providers: Jos Teresa; Mishel Vivar Discharge Orders/Prescriptions Prescriptions: New quetiapine 25 mg Tablet 50 mg PO QHS Qty: 0 0RF Continued clonidine HCl 0.2 mg tablet 0.2 mg PO BID Qty: 180 1RF citalopram 40 mg tablet 40 mg PO DAILY Qty: 90 1RF oxycodone 5 mg tablet 5 mg PO 4X/DAY PRN PRN (Reason: pain) lisinopril 10 mg tablet 10 mg PO QDAY Qty: 90 1RF pantoprazole 40 mg tablet,delayed release (DR/EC) 40 mg PO BID Qty: 180 1RF tamsulosin 0.4 mg capsule 0.4 mg PO QHS Qty: 90 1RF carbidopa-levodopa 25-100 mg tablet 2 tab PO TID acetaminophen 500 mg tablet 1,000 mg PO Q8 Qty: 90 0RF aspirin 81 mg tablet,delayed release (DR/EC) 81 mg PO DAILY Qty: 90 0RF dapagliflozin propanediol 10 mg tablet 10 mg PO DAILY Qty: 90 0RF atorvastatin 20 mg tablet 20 mg PO QHS Qty: 90 0RF Referrals / Follow Up: Amaya No MD [Primary Care Provider] - Disposition Disposition (needs filled in before D/C Order can be placed): Assisted Facility Charges/Coding Visit Charges Inpatient E&M: 00210 Disch Hosp >30min 05/29/25 1559 Cosigner Signature (if applicable): CC: Dr. Amaya No MD; Dr. Manuel Dorantes MD~ Signed [facility]08-25-2025 Discharge summary [facility] Medical Records Department [address] [place] [address] Transfer to [facility] MR#: [id number] Acct: [id number] Name: NICK SAN Rep #:[id number] : 1960 65 From: Manuel noel MD PCP: Dr. Amaya No MD Status:ADM JESSICA Certification of patient admission REQUIRED AT TIME OF ADMISSION. I CERTIFY THAT POST-HOSPITAL F SERVICES ARE REQUIRED TO BE GIVEN ON AN IN-PATIENT BASIS BECAUSE OF THE ABOVE NAMED PATIENT'S NEED FOR FPC CARE ON A CONTINUING BASIS FOR THE CONDITION(S) FOR WHICH HE/SHE WAS RECEIVING IN-PATIENT HOSPITAL SERVICES PRIOR TO HIS/HER TRANSFER TO THE [facility]. 05/29/25 1435 Diet Diet Order/Speech Therapy: INPATIENT Hospital Diet / Speech Therapy Order(s) 05/26/25 16:06 Diet: Cardiac - Heart Healthy Food consistency:: Regular Liquid Consistency:: Regular/Thin Routine Orders/Code Status Routine Lab Work: CBC and BMP Code Status: Full Code DC O2, CPAP, BIPAP needs Home O2 Discharge instructions: No Wound(s) Back: Wound Type: Surgical Incision Therapies Physical Therapy: Eval and Treat Occupational Therapy: Eval and Treat Problem/Diagnosis (1) Generalized weakness: Status: Acute Code(s): R53.1 - Weakness Plan 1. Debility and weakness after lumbar spine surgery at [facility] in the setting of Parkinson's disease with dementia ? PT/OT for placement ? He had an L3-5 decompressive laminectomy on 05/24/2025 and was discharged home ? He has significant debility with getting up from a seated position or laying position ? Consult case management for discharge planning and possible placement ? He is on Sinemet for his Parkinson's ? He is also on trazodone and Seroquel for sleep at night at home it does not appear that these were continued here in the hospital 2. DM2 ? Sliding scale insulin ? Accu-Cheks ? Will monitor make adjustments as necessary ? Will hold his Jardiance 3. Essential HTN/HLD/history of CVA ? Continue with his home blood pressure medications ? Will monitor make adjustments as necessary ? Continue with his statin ? Continue with aspirin 4. Anxiety/depression ? Continue with his home medications ? Stable 5. GERD ? Stable ? Continue with PPI 6. BPH with obstruction ? Stable ? Continue with Flomax DVT: Lovenox Allergies/Procedures Done in Hospital Allergies acetaminophen (From Vicodin) Allergy (Intermediate, Verified 05/26/25 10:29) Nausea/Vom/Diarrhea hydrocodone (From Vicodin) Allergy (Intermediate, Verified 05/26/25 10:29) Nausea/Vom/Diarrhea gabapentin Allergy (Mild, Verified 05/26/25 10:29) memory behaviors Procedures: None Type of Care/Length of Stay Estimated LOS: Convalescent Care Less Than 30 days Type of Care Needed: Skilled Rehab Potential: Good Prognosis: Good Additional Orders/Day of Discharge Day of Discharge: 05/29/25 Discharge Plan Admission Admit Date/Time: 05/26/25 14:34 Attending Provider: Manuel Dorantes Primary Care Provider: Amaya No Consulting Providers: Jos Teresa; Mishel Vivar Discharge Orders/Prescriptions Prescriptions: Continued clonidine HCl 0.2 mg tablet 0.2 mg PO BID Qty: 180 1RF citalopram 40 mg tablet 40 mg PO DAILY Qty: 90 1RF oxycodone 5 mg tablet 5 mg PO 4X/DAY PRN PRN (Reason: pain) lisinopril 10 mg tablet 10 mg PO QDAY Qty: 90 1RF pantoprazole 40 mg tablet,delayed release (DR/EC) 40 mg PO BID Qty: 180 1RF tamsulosin 0.4 mg capsule 0.4 mg PO QHS Qty: 90 1RF carbidopa-levodopa 25-100 mg tablet 2 tab PO TID acetaminophen 500 mg tablet 1,000 mg PO Q8 Qty: 90 0RF aspirin 81 mg tablet,delayed release (DR/EC) 81 mg PO DAILY Qty: 90 0RF dapagliflozin propanediol 10 mg tablet 10 mg PO DAILY Qty: 90 0RF atorvastatin 20 mg tablet 20 mg PO QHS Qty: 90 0RF Referrals / Follow Up: Amaya No MD [Primary Care Provider] - Disposition Disposition (needs filled in before D/C Order can be placed): Assisted Facility 05/29/25 1435 Cosigner Signature (if applicable): CC: Dr. Jos Teresa DO; Dr. Amaya No MD; Dr. Mishel Vivar MD~ [facility]08-25-2025 Progress note Author Manuel Dorantes [facility] Note Date/Time May 29, 2025 10 :42[facility] Medical Records Department [address] [place] [address] Progress Note - Hospitalist 05/29/25 1033 MR#: [id number] Acct: [id number] Name: NICK SAN Rep #:[id number] : 1960 65 From: Manuel noel MD PCP: Dr. Amaya No MD Status:ADM JESSICA Location: [place] [address] Subjective Subjective Doing well daughter relates some issues with sundowning and being awake overnight. Objective Data Objective Data Vital Signs: Vital Signs Temp Pulse Resp BP Pulse Ox O2 Del Method 97.3 F L 63 16 164/82 H 94 Room Air 05/29/25 09:26 05/29/25 09:26 05/29/25 09:26 05/29/25 09:26 05/29/25 09:26 05/29/25 10:00 Oxygen Delivery Method Room Air Weight: 196 lb 10.437 oz Body Mass Index (BMI) 26.6 Intake & Output: Intake and Output for Last 24 Hours 05/28/25 05/29/25 05/30/25 03:59 03:59 03:59 Intake Total 100 / 100 Output Total 600 / 600 750 / 750 Balance -600 / -600 -650 / -650 Lab / Micro Data 05/29/25 04:52 05/29/25 04:52 Labs: Laboratory Results - last 24 hr 05/29/25 04:52: WBC 8.8, RBC 4.52 L, Hgb 14.0, Hct 41.5, MCV 91.8, MCH 31.0, MCHC 33.7, RDW Std Deviation 41.7, RDW Coeff of Mario 12.3, Plt Count 257, MPV 9.5, Immature Gran % (Auto) 0.300, Neut % (Auto) 60.3, Lymph % (Auto) 29.2, [place]% (Auto) 7.7, Eos % (Auto) 1.8, Baso % (Auto) 0.7, Absolute Neuts (auto) 5.3, Absolute Lymphs (auto) 2.58, Nucleated RBC % 0, Sodium 137, Potassium 4.1, Chloride 100, Carbon Dioxide 24.3, Anion Gap 13, BUN 24 H, Creatinine 0.90, Estim Creat Clear Calc 87.42, Est GFR (MDRD) Non-Af 93, BUN/Creatinine Ratio 26.6 H, Glucose 99, Calcium 9.5 Physical Exam Narrative General: Alert, Oriented x3, Cooperative, No apparent distress HEENT: Atraumatic, PERRLA, EOMI, Normocephalic Oral: Moist Mucosa Neck: Supple, No JVD Lungs: Diminished, Normal air movement, No rhonchi, No wheeze, No rales Cardiovascular: Regular rate, Regular Rhythm, Normal S1, Normal S2, No murmurs Abdomen: Soft, Non Tender, Non-Distended, No Hepato-splenomegaly Extremities: No edema, Capillary Refill Less than 3 Seconds Skin: No rashes, No breakdown Musculoskeletal: No Tenderness to Palpation of Joints or Extremities Neurological: No focal neurological deficits, moves all extremities, slight Parkinson's tremor Psych/Mental Status: Normal Affect, Appropriate Assessment & Plan Assessment/Plan (1) Generalized weakness: PLAN: Plan 1. Debility and weakness after lumbar spine surgery at [facility] in the setting of Parkinson's disease with dementia ? PT/OT for placement ? He had an L3-5 decompressive laminectomy on 05/24/2025 and was discharged home ? He has significant debility with getting up from a seated position or laying position ? Consult case management for discharge planning and possible placement ? He is on Sinemet for his Parkinson's ? He is also on trazodone and Seroquel for sleep at night at home it does not appear that these were continued here in the hospital 2. DM2 ? Sliding scale insulin ? Accu-Cheks ? Will monitor make adjustments as necessary ? Will hold his Jardiance 3. Essential HTN/HLD/history of CVA ? Continue with his home blood pressure medications ? Will monitor make adjustments as necessary ? Continue with his statin ? Continue with aspirin 4. Anxiety/depression ? Continue with his home medications ? Stable 5. GERD ? Stable ? Continue with PPI 6. BPH with obstruction ? Stable ? Continue with Flomax DVT: Lovenox Charges/Coding Visit Charges Inpatient E&M: 04726 Subs Hosp L2 05/29/25 1042 <Electronically signed by Manuel Dorantes MD> Cosigner Signature (if applicable): CC: ~ Signed [facility] Work Phone: 1(532) 129-616208-25-2025 Progress note [facility] Medical Records Department [address] [place] [address] Progress Note - Hospitalist 05/29/25 1033 MR#: [id number] Acct: [id number] Name: NICK SAN Rep #:[id number] : 1960 65 From: Manuel noel MD PCP: Dr. Amaya oN MD Status:ADM JESSICA Location: [place] [address] Subjective Subjective Doing well daughter relates some issues with sundowning and being awake overnight. Objective Data Objective Data Vital Signs: Vital Signs Temp Pulse Resp BP Pulse Ox O2 Del Method 97.3 F L 63 16 164/82 H 94 Room Air 05/29/25 09:26 05/29/25 09:26 05/29/25 09:26 05/29/25 09:26 05/29/25 09:05/29/25 10:00 Oxygen Delivery Method Room Air Weight: 196 lb 10.437 oz Body Mass Index (BMI) 26.6 Intake & Output: Intake and Output for Last 24 Hours 05/28/25 05/29/25 05/30/25 03:59 03:59 03:59 Intake Total 100 / 100 Output Total 600 / 600 750 / 750 Balance -600 / -600 -650 / -650 Lab / Micro Data 05/29/25 04:52 05/29/25 04:52 Labs: Laboratory Results - last 24 hr 05/29/25 04:52: WBC 8.8, RBC 4.52 L, Hgb 14.0, Hct 41.5, MCV 91.8, MCH 31.0, MCHC 33.7, RDW Std Deviation 41.7, RDW Coeff of Mario 12.3, Plt Count 257, MPV 9.5, Immature Gran % (Auto) 0.300, Neut % (Auto) 60.3, Lymph % (Auto) 29.2, [place]% (Auto) 7.7, Eos % (Auto) 1.8, Baso % (Auto) 0.7, Absolute Neuts(auto) 5.3, Absolute Lymphs (auto) 2.58, Nucleated RBC % 0, Sodium 137, Potassium 4.1, Chloride 100, Carbon Dioxide 24.3, Anion Gap 13, BUN 24 H, Creatinine 0.90, Estim Creat Clear Calc 87.42, Est GFR (MDRD) Non-Af 93, BUN/Creatinine Ratio 26.6 H, Glucose 99, Calcium 9.5 Physical Exam Narrative General: Alert, Oriented x3, Cooperative, No apparent distress HEENT: Atraumatic, PERRLA, EOMI, Normocephalic Oral: Moist Mucosa Neck: Supple, No JVD Lungs: Diminished, Normal air movement, No rhonchi, No wheeze, No rales Cardiovascular: Regular rate, Regular Rhythm, Normal S1, Normal S2, No murmurs Abdomen: Soft, Non Tender, Non-Distended, No Hepato-splenomegaly Extremities: No edema, Capillary Refill Less than 3 Seconds Skin: No rashes, No breakdown Musculoskeletal: No Tenderness to Palpation of Joints or Extremities Neurological: No focal neurological deficits, moves all extremities, slight Parkinson's tremor Psych/Mental Status: Normal Affect, Appropriate Assessment & Plan Assessment/Plan (1) Generalized weakness: PLAN: Plan 1. Debility and weakness after lumbar spine surgery at [facility] in the setting of Parkinson's disease with dementia ? PT/OT for placement ? He had an L3-5 decompressive laminectomy on 05/24/2025 and was discharged home ? He has significant debility with getting up from a seated position or laying position ? Consult case management for discharge planning and possible placement ? He is on Sinemet for his Parkinson's ? He is also on trazodone and Seroquel for sleep at night at home it does not appear that these were continued here in the hospital 2. DM2 ? Sliding scale insulin ? Accu-Cheks ? Will monitor make adjustments as necessary ? Will hold his Jardiance 3. Essential HTN/HLD/history of CVA ? Continue with his home blood pressure medications ? Will monitor make adjustments as necessary ? Continue with his statin ? Continue with aspirin 4. Anxiety/depression ? Continue with his home medications ? Stable 5. GERD ? Stable ? Continue with PPI 6. BPH with obstruction ? Stable ? Continue with Flomax DVT: Lovenox Charges/Coding Visit Charges Inpatient E&M: 69976 Subs Hosp L2 05/29/25 1042 Cosigner Signature (if applicable): CC: ~ Signed [facility]08-24-2025 Progress note Author Mishel [facility] Note Date/Time May 28, 2025 1: [address] [place] [address] [facility] Medical Records Department [address] [place] [address] Progress Note 05/28/25 1055 MR#: [id number] Acct: [id number] Name: NICK SAN Rep #:[id number] : 1960 65 From: Mishel Vivar MD PCP: Dr. Amaya No MD Status:ADM [facility] Location: [place] [address] Subjective Subjective Patient seen and examined with his nurse by his bedside. His daughter was also by his bedside. Patient complained of some right calf overnight. He had no active complaints this morning. Review of systems otherwise negative. Calcium and hemodynamically stable. Objective Data Objective Data Vital Signs: Vital Signs Temp Pulse Resp BP Pulse Ox O2 Del Method 97.8 F 97 18 159/87 H 97 Room Air 05/28/25 08:27 05/28/25 08:27 05/28/25 08:27 05/28/25 08:27 05/28/25 08:27 05/28/25 08:27 Oxygen Delivery Method Room Air Weight: 196 lb 10.437 oz Body Mass Index (BMI) 26.6 Intake & Output: Intake and Output for Last 24 Hours 05/26/25 05/27/25 05/28/25 23:59 23:59 23:59 Intake Total 1000 / 1000 100 / 100 Output Total 1100 / 1100 Balance 1000 / 500 -1100 / -1100 100 / 100 Lab / Micro Data 05/28/25 04:54 05/28/25 04:54 Labs: Laboratory Results - last 24 hr 05/27/25 11:23: POC Glucose 156 H 05/27/25 16:44: POC Glucose 140 H 05/27/25 23:26: POC Glucose 114 H 05/28/25 04:54: WBC 10.1, RBC 4.39 L, Hgb 13.3, Hct 40.8, MCV 92.9, MCH 30.3, MCHC 32.6, RDW Std Deviation 43.0, RDW Coeff of Mario 12.4, Plt Count 215, MPV 9.9, Immature Gran % (Auto) 0.500, Neut % (Auto) 59.2, Lymph % (Auto) 27.9, [place]% (Auto) 9.8, Eos % (Auto) 2.0, Baso % (Auto) 0.6, Absolute Neuts (auto) 6.0, Absolute Lymphs (auto) 2.80, Nucleated RBC % 0, Sodium 136, Potassium 4.1, Chloride 99, Carbon Dioxide 23.8, Anion Gap 13, BUN 19, Creatinine 0.99, Estim Creat Clear Calc 79.47, Est GFR (MDRD) Non-Af 83, BUN/Creatinine Ratio 19.2, Glucose 88, Calcium 9.5 Physical Exam Const alert, oriented x3 and no apparent distress Constitutional Narrative: Elderly male, class I obesity, mildly fatigued appearing, otherwise laying back comfortably in bed, conversing normally, in no acute distress. General Appearance: cooperative and comfortable HEENT normocephalic, head/scalp atraumatic, hearing grossly normal bilaterally, nasal mucous membranes and turbinates normal, moist oral mucous membranes and oropharynx normal Eyes PERRL, EOMs intact bilaterally and conjunctivae normal Neck full ROM and supple Chest inspection of chest normal Resp normal respiratory effort, normal air movement, no use of accessory muscles and clear to auscultation bilaterally Cardio regular rate, regular rhythm, S1 normal heart sound, S2 normal heart sound, no murmurs and peripheral pulses 2+ throughout GI normal to inspection, nondistended, normoactive bowel sounds, soft to palpation,non-tender and non-distended Back/Spine Back/Spine Narrative: intact dressing over lower back. Extremity normal to inspection, normal capillary refill, no clubbing, cyanosis or edema, no calf tenderness and no pedal edema General Extremity: no tenderness to palpation of joints or extremities Skin no rashes or lesions noted Neuro moves all extremities, no focal motor deficits and no sensory deficits noted Speech: speech normal Motor Exam: general weakness Psych mental status grossly normal, thought process normal and cooperative Mood & Affect: flat affect Assessment & Plan Assessment/Plan (1) Generalized weakness: PLAN: Plan #Debilty and weakness in the setting of recent lumbar spine surgery * Patient had L3-L5 decompressive laminectomy at [facility] on 05/24/2025. He tolerated the procedure well. * According to his daughter they had asked for placement but he was eventually discharged home. Patient has been weak at home and fell backwards while standing up from the toilet and hit his head and lower back. * CT of the brain and CT of the cervical spine in the ED were unremarkable. CT of the lumbar spine showed chronic degenerative changes with postoperative changes noted and no other new concerning findings. PT OT on board. Fall precautions. On p.o. Tylenol, oxycodone and IV morphine as needed for pain * Will need placement. Case management on board * patient complaining of RLE tenderness and throbbing in the calf area today. DUplex of both LEs ordered * #Parkinson's disease with dementia: On Sinemet #Hypertension: On clonidine and lisinopril #Hyperlipidemia: On statin #History of CVA: On aspirin and statin #Anxiety and depression: On citalopram #GERD: On PPI #BPH with obstructive symptoms: On Flomax #Type 2 diabetes mellitus: On insulin sliding scale. Checks ACHS. Appropriately fluids about who was bedside DVT prophylaxis: On Lovenox. Disposition: Awaiting placement. * Charges/Coding Visit Charges Inpatient E&M: 57525 Subs Hosp L2 05/28/25 8687 <Electronically signed by Mishel Vivar MD> Mishel Vivar MD Cosigner Signature (if applicable): CC: ~ Signed [facility] Work Phone: 1(475) 710-883408-24-2025 Progress note [facility] Medical Records Department [address] [place] [address] Progress Note 05/28/25 1055 MR#: [id number] Acct: [id number] Name: NICK SAN Rep #:[id number] : 1960 65 From: Mishel Vivar MD PCP: Dr. Amaya No MD Status:ADM JESSICA Location: [place] [address] Subjective Subjective Patient seen and examined with his nurse by his bedside. His daughter was also by his bedside. Patient complained of some right calf overnight. He had no active complaints this morning. Review of systems otherwise negative. Calcium and hemodynamically stable. Objective Data Objective Data Vital Signs: Vital Signs Temp Pulse Resp BP Pulse Ox O2 Del Method 97.8 F 97 18 159/87 H 97 Room Air 05/28/25 08:27 05/28/25 08:27 05/28/25 08:27 05/28/25 08:27 05/28/25 08:27 05/28/25 08:27 Oxygen Delivery Method Room Air Weight: 196 lb 10.437 oz Body Mass Index (BMI) 26.6 Intake & Output: Intake and Output for Last 24 Hours 05/26/25 05/27/25 05/28/25 23:59 23:59 23:59 Intake Total 1000 / 1000 100 / 100 Output Total 1100 / 1100 Balance 1000 / 500 -1100 / -1100 100 / 100 Lab / Micro Data 05/28/25 04:54 05/28/25 04:54 Labs: Laboratory Results - last 24 hr 05/27/25 11:23: POC Glucose 156 H 05/27/25 16:44: POC Glucose 140 H 05/27/25 23:26: POC Glucose 114 H 05/28/25 04:54: WBC 10.1, RBC 4.39 L, Hgb 13.3, Hct 40.8, MCV 92.9, MCH 30.3, MCHC 32.6, RDW Std Deviation 43.0, RDW Coeff of Mario 12.4, Plt Count 215, MPV 9.9, Immature Gran % (Auto) 0.500, Neut % (Auto) 59.2, Lymph % (Auto) 27.9, [place]% (Auto) 9.8, Eos % (Auto) 2.0, Baso % (Auto) 0.6, Absolute Neuts (auto) 6.0, Absolute Lymphs (auto) 2.80, Nucleated RBC % 0, Sodium 136, Potassium 4.1, Chloride 99, Carbon Dioxide 23.8, Anion Gap 13, BUN 19, Creatinine 0.99, Estim Creat Clear Calc 79.47, Est GFR (MDRD) Non-Af 83, BUN/Creatinine Ratio 19.2, Glucose 88, Calcium 9.5 Physical Exam Const alert, oriented x3 and no apparent distress Constitutional Narrative: Elderly male, class I obesity, mildly fatigued appearing, otherwise laying back comfortably in bed,conversing normally, in no acute distress. General Appearance: cooperative and comfortable HEENT normocephalic, head/scalp atraumatic, hearing grossly normal bilaterally, nasal mucous membranes and turbinates normal, moist oral mucous membranes and oropharynx normal Eyes PERRL, EOMs intact bilaterally and conjunctivae normal Neck full ROM and supple Chest inspection of chest normal Resp normal respiratory effort, normal air movement, no use of accessory muscles and clear to auscultation bilaterally Cardio regular rate, regular rhythm, S1 normal heart sound, S2 normal heart sound, no murmurs and peripheral pulses 2+ throughout GI normal to inspection, nondistended, normoactive bowel sounds, soft to palpation,non-tender and non-distended Back/Spine Back/Spine Narrative: intact dressing over lower back. Extremity normal to inspection, normal capillary refill, no clubbing, cyanosis or edema, no calf tenderness and no pedal edema General Extremity: no tenderness to palpation of joints or extremities Skin no rashes or lesions noted Neuro moves all extremities, no focal motor deficits and no sensory deficits noted Speech: speech normal Motor Exam: general weakness Psych mental status grossly normal, thought process normal and cooperative Mood & Affect: flat affect Assessment & Plan Assessment/Plan (1) Generalized weakness: PLAN: Plan #Debilty and weakness in the setting of recent lumbar spine surgery * Patient had L3-L5 decompressive laminectomy at [facility] on 05/24/2025. He tolerated the procedure well. * According to his daughter they had asked for placement but he was eventually discharged home. Patient has been weak at home and fell backwards while standing up from the toilet and hit his head andlower back. * CT of the brain and CT of the cervical spine in the ED were unremarkable. CT of the lumbar spine showed chronic degenerative changes with postoperative changes noted and no other new concerning findings. PT OT on board. Fall precautions. On p.o. Tylenol, oxycodone and IV morphine as needed for pain * Will need placement. Case management on board * patient complaining of RLE tenderness and throbbing in the calf area today. DUplex of both LEs ordered * #Parkinson's disease with dementia: On Sinemet #Hypertension: On clonidine and lisinopril #Hyperlipidemia: On statin #History of CVA: On aspirin and statin #Anxiety and depression: On citalopram #GERD: On PPI #BPH with obstructive symptoms: On Flomax #Type 2 diabetes mellitus: On insulin sliding scale. Checks ACHS. Appropriately fluids about who was bedside DVT prophylaxis: On Lovenox. Disposition: Awaiting placement. * Charges/Coding Visit Charges Inpatient E&M: 50349 [facility] Hosp L2 05/28/25 1331 Mishel Vivar MD Cosigner Signature (if applicable): CC: ~ Signed [facility]08-23-2025 Progress note Author Mishel [facility] Note Date/Time May 27, 2025 4: 00pm [facility] Medical Records Department [address] [place] [address] Progress Note 05/27/25 1225 MR#: [id number] Acct: [id number] Name: NICK SAN Rep #:[id number] : 1960 65 From: Mishel Vivar MD PCP: Dr. Amaya No MD Status:ADM JESSICA Location: [place] [address] Subjective Subjective Patient seen and examined with his nurse by his bedside. His daughter was by his bedside. He did complain of some back pain. He was admitted on account of weakness and debility. He recently had lumbar spine surgery at [facility] on 05/24/2025. Daughter says despite their request for him to be discharged to rehab, he was discharged home and had been getting weaker at home. They therefore requesting placement. He has no other complaints and has remained hemodynamically stable. Objective Data Objective Data Vital Signs: Vital Signs Temp Pulse Resp BP Pulse Ox O2 Del Method 97.6 F L 61 18 138/78 H 98 Room Air 05/27/25 08:16 05/27/25 08:16 05/27/25 08:16 05/27/25 08:16 05/27/25 08:16 05/27/25 08:16 Oxygen Delivery Method Room Air Weight: 196 lb 10.437 oz Body Mass Index (BMI) 26.6 Intake & Output: Intake and Output for Last 24 Hours 05/25/25 05/26/25 05/27/25 23:59 23:59 23:59 Intake Total 1000 / 1000 Output Total 875 / 875 Balance 1000 / 500 -875 / -875 Lab / Micro Data 05/27/25 05:01 05/27/25 05:01 Labs: Laboratory Results - last 24 hr 05/26/25 11:25: Hemoglobin A1c 6.3 H 05/26/25 14:17: Urine Color Yellow, Urine Clarity Clear, Urine pH 6.0, Ur Specific [place] 1.010, Urine Protein 30 H, Urine Glucose (UA) 1000 H, Urine Ketones Negative, Urine Occult Blood 10 H, Urine Nitrite Negative, Urine Bilirubin Negative, Urine Urobilinogen Normal, Ur Leukocyte Esterase Negative, Urine RBC 0 SEEN, Urine WBC 0-5 SEEN, Ur Squamous Epith Cells 0-5 SEEN, Urine Bacteria 0 SEEN, Urine Mucus 0 SEEN 05/26/25 20:22: POC Glucose 111 H 05/27/25 05:01: WBC 11.3 H, RBC 4.30 L, Hgb 13.2, Hct 39.8 L, MCV 92.6, MCH 30.7, MCHC 33.2, RDW Std Deviation 43.6, RDW Coeff of Mario 12.9, Plt Count 205, MPV 9.6, Sodium 138, Potassium 4.1, Chloride 101, Carbon Dioxide 26.2, Anion Gap11, BUN 15, Creatinine 1.09, Estim Creat Clear Calc 72.18, Est GFR (MDRD) Non-Af74, BUN/Creatinine Ratio 13.6, Glucose 112 H, Calcium 9.1 05/27/25 11:23: POC Glucose 156 H Radiography Diagnostic Testing: Radiology Impression Brain CT 05/26/25 11:15 IMPRESSION: NO ACUTE FINDINGS Findings suggestive of encephalomalacia in the left temporoparietal lobes suggestive of old ischemic insult. Reading Location: [id number] Cervical Spine CT 05/26/25 11:15 IMPRESSION: DEGENERATIVE CHANGES OF THE CERVICAL SPINE. NO EVIDENCE OF SIGNIFICANT OSSEOUS CENTRAL CANAL OR NEURAL FORAMINAL STENOSIS. Reading Location: [id number] Chest X-Ray 05/26/25 11:15 IMPRESSION: Bibasilar atelectasis or pneumonia. Reading [facility] Lumbar Spine CT 05/26/25 11:15 IMPRESSION: NO ACUTE LUMBAR FRACTURE. DEGENERATIVE CHANGES. Reading Location: [id number] Thoracic Spine CT 05/26/25 11:51 IMPRESSION: NO ACUTE THORACIC FRACTURE. DEGENERATIVE CHANGES. Reading Location: [id number] Physical Exam Const alert, oriented x3 and no apparent distress General Appearance: cooperative HEENT normocephalic, head/scalp atraumatic, moist oral mucous membranes and oropharynxnormal Eyes EOMs intact bilaterally Neck supple Lymph Lymphatic: no lymphedema noted Resp Resp Narrative: mildly diminished breath sounds bibasally, no wheezes or crackles. On room air. Cardio regular rhythm, S1 normal heart sound, S2 normal heart sound and no murmurs GI normal to inspection, nondistended, normoactive bowel sounds, soft to palpation,non-tender and non-distended Extremity normal capillary refill, no clubbing, cyanosis or edema and no calf tenderness General Extremity: no tenderness to palpation of joints or extremities Neuro no focal motor deficits and no sensory deficits noted Motor Exam: general weakness Psych thought process normal and cooperative Mood & Affect: flat affect Assessment & Plan Assessment/Plan (1) Generalized weakness: PLAN: Plan #Debilty and weakness in the setting of recent lumbar spine surgery * Patient had L3-L5 decompressive laminectomy at [facility] on 05/24/2025. He tolerated the procedure well. * According to his daughter they had asked for placement but he was eventually discharged home. Patient has been weak at home and fell backwards while standing up from the toilet and hit his head and lower back. * CT of the brain and CT of the cervical spine in the ED were unremarkable. CT of the lumbar spine showed chronic degenerative changes with postoperative changes noted and no other new concerning findings. PT OT on board. Fall precautions. On p.o. Tylenol, oxycodone and IV morphine as needed for pain * Will need placement. Case management on board. #Parkinson's disease with dementia: On Sinemet #Hypertension: On clonidine and lisinopril #Hyperlipidemia: On statin #History of CVA: On aspirin and statin #Anxiety and depression: On citalopram #GERD: On PPI #BPH with obstructive symptoms: On Flomax #Type 2 diabetes mellitus: On insulin sliding scale. Checks ACHS. Appropriately fluids about who was bedside DVT prophylaxis: On Lovenox. Disposition: Awaiting placement. * Charges/Coding Visit Charges Inpatient E&M: 38173 Subs Hosp L2 05/27/25 1600 <Electronically signed by Mishel Vivar MD> Mishel Vivar MD Cosigner Signature (if applicable): CC: ~ Signed [facility] Work Phone: [phone] 727-197408-23-2025 Progress note [facility] Medical Records Department [address] [place] [address] Progress Note 05/27/25 1225 MR#: [id number] Acct: [id number] Name: NICK SAN Radha Rep #:[id number] : 1960 65 From: Mishel Vivar MD PCP: Dr. Amaya No MD Status:ADM JESSICA Location: [place] [address]1 Subjective Subjective Patient seen and examined with his nurse by his bedside. His daughter was by his bedside. He did complain of some back pain. He was admitted on account of weakness and debility. He recently had lumbar spine surgery at [facility] on 05/24/2025. Daughter says despite their request for him to be discharged to rehab, he was discharged home and had been getting weaker at home. They thereforerequesting placement. He has no other complaints and has remained hemodynamically stable. Objective Data Objective Data Vital Signs: Vital Signs Temp Pulse Resp BP Pulse Ox O2 Del Method 97.6 F L 61 18 138/78 H 98 Room Air 05/27/25 08:16 05/27/25 08:16 05/27/25 08:16 05/27/25 08:16 05/27/25 08:16 05/27/25 08:16 Oxygen Delivery Method Room Air Weight: 196 lb 10.437 oz Body Mass Index (BMI) 26.6 Intake & Output: Intake and Output for Last 24 Hours 05/25/25 05/26/25 05/27/25 23:59 23:59 23:59 Intake Total 1000 / 1000 Output Total 875 / 875 Balance 1000 / 500 -875 / -875 Lab / Micro Data 05/27/25 05:01 05/27/25 05:01 Labs: Laboratory Results - last 24 hr 05/26/25 11:25: Hemoglobin A1c 6.3 H 05/26/25 14:17: Urine Color Yellow, Urine Clarity Clear, Urine pH 6.0, Ur Specific [place] 1.010, Urine Protein 30 H, Urine Glucose (UA) 1000 H, Urine Ketones Negative, Urine Occult Blood 10 H, UrineNitrite Negative, Urine Bilirubin Negative, Urine Urobilinogen Normal, Ur Leukocyte Esterase Negative, Urine RBC 0 SEEN, Urine WBC 0-5 SEEN, Ur Squamous Epith Cells 0-5 SEEN, Urine Bacteria 0 SEEN, Urine Mucus 0 SEEN 05/26/25 20:22: POC Glucose 111 H 05/27/25 05:01: WBC 11.3 H, RBC 4.30 L, Hgb 13.2, Hct 39.8 L, MCV 92.6, MCH 30.7, MCHC 33.2, RDW Std Deviation 43.6, RDW Coeff of Mario 12.9, Plt Count 205, MPV 9.6, Sodium 138, Potassium 4.1, [id number], Carbon Dioxide 26.2, Anion Gap11, BUN 15, Creatinine 1.09, Estim Creat Clear Calc 72.18, Est GFR (MDRD) Non-Af74, BUN/Creatinine Ratio 13.6, Glucose 112 H, Calcium 9.1 05/27/25 11:23: POC Glucose 156 H Radiography Diagnostic Testing: Radiology Impression Brain CT 05/26/25 11:15 IMPRESSION: NO ACUTE FINDINGS Findings suggestive of encephalomalacia in the left temporoparietal lobes suggestive of old ischemic insult. Reading Location: [id number] Cervical Spine CT 05/26/25 11:15 IMPRESSION: DEGENERATIVE CHANGES OF THE CERVICAL SPINE. NO EVIDENCE OF SIGNIFICANT OSSEOUS CENTRAL CANAL OR NEURAL FORAMINAL STENOSIS. Reading Location: [id number] Chest X-Ray 05/26/25 11:15 IMPRESSION: Bibasilar atelectasis or pneumonia. Reading Location[facility] Lumbar Spine CT 05/26/25 11:15 IMPRESSION: NO ACUTE LUMBAR FRACTURE. DEGENERATIVE CHANGES. Reading Location: [id number] Thoracic Spine CT 05/26/25 11:51 IMPRESSION: NO ACUTE THORACIC FRACTURE. DEGENERATIVE CHANGES. Reading Location: [facility] Physical Exam Const alert, oriented x3 and no apparent distress General Appearance: cooperative HEENT normocephalic, head/scalp atraumatic, moist oral mucous membranes and oropharynxnormal Eyes EOMs intact bilaterally Neck supple Lymph Lymphatic: no lymphedema noted Resp Resp Narrative: mildly diminished breath sounds bibasally, no wheezes or crackles. On room air. Cardio regular rhythm, S1 normal heart sound, S2 normal heart sound and no murmurs GI normal to inspection, nondistended, normoactive bowel sounds, soft to palpation,non-tender and non-distended Extremity normal capillary refill, no clubbing, cyanosis or edema and no calf tenderness General Extremity: no tenderness to palpation of joints or extremities Neuro no focal motor deficits and no sensory deficits noted Motor Exam: general weakness Psych thought process normal and cooperative Mood & Affect: flat affect Assessment & Plan Assessment/Plan (1) Generalized weakness: PLAN: Plan #Debilty and weakness in the setting of recent lumbar spine surgery * Patient had L3-L5 decompressive laminectomy at [facility] on 05/24/2025. He tolerated the procedure well. * According to his daughter they had asked for placement but he was eventually discharged home. Patient has been weak at home and fell backwards while standing up from the toilet and hit his head andlower back. * CT of the brain and CT of the cervical spine in the ED were unremarkable. CT of the lumbar spine showed chronic degenerative changes with postoperative changes noted and no other new concerning findings. PT OT on board. Fall precautions. On p.o. Tylenol, oxycodone and IV morphine as needed for pain * Will need placement. Case management on board. #Parkinson's disease with dementia: On Sinemet #Hypertension: On clonidine and lisinopril #Hyperlipidemia: On statin #History of CVA: On aspirin and statin #Anxiety and depression: On citalopram #GERD: On PPI #BPH with obstructive symptoms: On Flomax #Type 2 diabetes mellitus: On insulin sliding scale. Checks ACHS. Appropriately fluids about who was bedside DVT prophylaxis: On Lovenox. Disposition: Awaiting placement. * Charges/Coding Visit Charges Inpatient E&M: 81423 Subs Hosp L2 05/27/25 1600 Mishel Vivar MD Cosigner Signature (if applicable): CC: ~ Signed [facility]08-22-2025 Discharge summary Author Mehreen Gallagher [facility] Note Date/Time May 26, 2025 9: 12pm [facility] Medical Records Department [address] [place] [address] Emergency Department Summary 05/26/25 MR#: [id number] Acct: [id number] Name: NICK SAN Rep #:[id number] : 1960 65 From: Mehreen BRENNAN PCP: Dr. Amaya No MD Status:ADM JESSICA Location: [id number] HPI History of Present Illness Chief Complaint: Weakness Narrative Narrative: Patient presenting today due to generalized weakness and difficulty ambulating. He had a L3/L4 decompression laminectomy and decompression of L3-L4, L4-L5 bilateral root foraminotomies at [facility] by Dr. Ayala. He was discharged home the next day. His daughter had advocated that he be discharged to a SNF due to concerns that he would not to do well at home but he was ultimately discharged home. He has had increased difficulty getting up on his own and lives at home with his who is unable to help him. He did have a fall yesterday in the bathroom getting up off the toilet and fellbackwards, hitting his head against the wall and his lower back against the wall. He reports his low back pain has been somewhat worse since his fall. 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 He is currently alert and oriented x 4. Patient denies fevers, chills, abdominal pain, urinary symptoms, bowel/bladder incontinence, and saddle anesthesia/paresthesia. He has a PMH of HLD, HTN, T2DM, Parkinson's disease, and dementia. [facility] Medical History Dementia Pain in joint involving right ankle and foot Wears glasses Depression Bladder disease High cholesterol Back pain Parkinson's disease Stroke/cerebrovascular accident Heartburn Non-smoker History of pain when walking History of edema History of echocardiogram Cardiology follow-up encounter Bilateral primary osteoarthritis of knee Pain in both knees Family history of prostate problems Kidney stones Hypertension Diabetes Arthritis Home Medications ?Medication ?Instructions ?Recorded ?Last Taken ?Type citalopram 40 mg tablet 40 mg PO DAILY DEPRESSION #9 0 02/07/25 Unknown Rx TABLETS clonidine HCl 0.2 mg tablet 0.2 mg PO BID BP #180 tabs 02/07/25 Unknown Rx lisinopril 10 mg tablet 10 mg PO QDAY #90 tabs 02/08 Unknown Rx pantoprazole 40 mg tablet,delayed 40 mg PO BID #180 ta bs 02/08/25 Unknown Rx release tamsulosin 0.4 mg capsule 0.4 mg PO QHS PROSTATE #90 c aps 02/08/25 Unknown Rx carbidopa 25 mg-levodopa 100 mg 2 tab PO TID PARKINSON 02/09/25 Unknown History tablet naproxen 500 mg tablet 500 mg PO BID #10 tabs 03/13 Unknown Rx acetaminophen 500 mg tablet 1,000 mg (2 x 500 mg) PO Q 8 #90 03/27/25 Unknown Rx tabs aspirin 81 mg tablet,delayed 81 mg PO DAILY HEART HEAL TH #90 03/27/25 Unknown Rx release tabs atorvastatin 20 mg tablet 20 mg PO QHS #90 tabs Unknown Rx dapagliflozin propanediol 10 mg 10 mg PO DAILY CHOLEST SOWMYA #90 tabs 03/27/25 Unknown Rx tablet oxycodone 5 mg tablet 5 mg PO 4X/DAY PRN PRN pain 05/26/25 Unknown History Allergy/AdvReac Type Severity Reaction Status Date / Time acetaminophen (From Vicodin) Allergy Intermediate Nausea/Vom/ Verified 05/26/25 10:29 Diarrhea hydrocodone (From Vicodin) Allergy Intermediate Nausea/Vom/ Verified 05/26/25 10:29 Diarrhea gabapentin Allergy Mild memory Verified 05/26/25 10:29 Family History Mother Hypertension Myocardial infarction Colon cancer CVA (cerebral vascular accident) Depression Diabetes Brother Colon cancer Cancer STOMACH CVA (cerebral vascular accident) Hypertension Father Hypertension Sister Diabetes Surgical History H/O laminectomy S/P knee replacement S/P total knee arthroplasty Social History household members: spouse current occupational status: retired current occupation: [employer] Smoking Status: Never smoker Electronic Cigarette Use: not used alcohol intake: never substance use type: does not use what type of physical activity do you participate in: none seatbelt use: sometimes do you feel safe at home: Yes ROS ROS ED Constitutional Constitutional ED: Denies chills or fever(s) Cardiovascular Cardiovascular: Denies chest pain Respiratory/Chest Respiratory/Chest: Denies dyspnea Gastrointestinal Gastrointestinal: Denies abdominal pain, nausea or vomiting Genitourinary Genitourinary ED: Denies dysuria, hematuria or urinary urgency Musculoskeletal Musculoskeletal: Reports back pain and neck pain Integumentary Denies Abrasions or rash Neurologic Neurologic: Reports weakness; Denies headache(s) or paresthesias EXAM Physical Exam Const Vital Signs: 05/26/25 10:29 05/26/25 11:15 05/26/25 11:30 Temperature 98.8 F Temperature Source Temporal Pulse Rate 74 67 67 Respiratory Rate 18 18 19 H Respiratory Pattern Blood Pressure 123/68 H 119/75 117/73 Blood Pressure Mean 86 89 86 Pulse Ox 97 93 94 05/26/25 11:31 05/26/25 11:45 05/26/25 11:45 Temperature Temperature Source Pulse Rate 63 Respiratory Rate 17 Respiratory Pattern Normal Blood Pressure 123/73 H 123/73 H Blood Pressure Mean 88 88 Pulse Ox 95 05/26/25 12:00 05/26/25 12:15 05/26/25 12:17 Temperature Temperature Source Pulse Rate 66 65 Respiratory Rate 14 15 Respiratory Pattern Blood Pressure 134/74 H 151/74 H Blood Pressure Mean 93 98 Pulse Ox 94 99 05/26/25 12:30 05/26/25 12:45 05/26/25 13:00 Temperature Temperature Source Pulse Rate 65 65 69 Respiratory Rate 17 21 H 17 Respiratory Pattern Blood Pressure 126/81 H 154/79 H 133/78 H Blood Pressure Mean 93 102 92 Pulse Ox 97 94 95 05/26/25 13:15 05/26/25 13:30 05/26/25 13:45 Temperature Temperature Source Pulse Rate 65 68 Respiratory Rate 16 15 Respiratory Pattern Blood Pressure 134/72 H 122/74 H 129/77 H Blood Pressure Mean 89 90 93 Pulse Ox 94 95 05/26/25 14:00 05/26/25 14:15 Temperature Temperature Source Pulse Rate 63 Respiratory Rate 22 H Respiratory Pattern Blood Pressure 143/76 H 136/85 H Blood Pressure Mean 96 101 Pulse Ox 93 Positive well nourished, well developed and no apparent distress General Appearance ED: well developed HEENT Reports normocephalic and head/scalp atraumatic Mouth ED: Yes moist mucous membranes normal Eyes PERRL and EOMs intact bilaterally Neck full ROM and supple Neck Narrative: Minimal midline mid cervical tenderness to palpation Chest Wall inspection of chest normal Resp normal respiratory effort and clear to auscultation bilaterally Cardio regular rate and regular rhythm GI soft to palpation, non-tender, non-distended and no masses Back/Spine normal ROM and normal to inspection Back/Spine Narrative: Surgical incision to the lumbar spine without dehiscence, warmth, erythema, or purulence Extremity normal to inspection and full ROM Neuro oriented x3, CN's II-XII intact bilaterally, moves all extremities, no focal motor deficits and no sensory deficits noted Sensorium / Orientation: awake and alert Psych mental status grossly normal and thought process normal Skin no rashes or lesions noted and no wounds MDM MDM MDM Narrative Medical decision making narrative: Patient presenting today due to concerns for generalized weakness and difficultyambulating wanting SNF placement. He just had laminectomy of his lumbar spine 2days ago at [facility]. His daughter had advocated thathe be placed in a rehab facility postop but they deemed that he was safe to go home. He did have a fall yesterday try to get up off the toilet and is having ahard time getting up on his own, he is able to walk once he is up but daughter reports there is nobody at home that can help him get aside from his who isnot much help. Patient is agreeable with this plan. Daughter reports he has a history of sundowners and dementia, he is alert and oriented x 4 here. Given his fall yesterday, head and neck CTs will be obtained to assess for intracranial bleed and cervical fracture, thoracic and lumbar spine CTs will be obtained to assess for fracture and complications given recent surgery. Brain, cervical spine, lumbar spine CT negative for any acute findings. His head CT looks like he may have had an old ischemic infarct. Chest x-ray shows bilateralatelectasis versus pneumonia, he does not have a cough or dyspnea to suggest pneumonia. He did just have surgery making atelectasis more likely. I spoke with the hospitalist, patient will be admitted in stable condition. Lab Data Attestation: I reviewed the patient's lab results. Labs: Laboratory Results - last 24 hr 05/26/25 05/26/25 11:25 14:17 WBC 12.0 H RBC 4.57 L Hgb 14.1 Hct 42.5 MCV 93.0 MCH 30.9 MCHC 33.2 RDW Std Deviation 44.7 H RDW Coeff of Mario 13.0 Plt Count 206 MPV 9.2 Immature Gran % (Auto) 0.300 Neut % (Auto) 71.5 H Lymph % (Auto) 16.6 L [place] % (Auto) 10.9 H Eos % (Auto) 0.3 Baso % (Auto) 0.4 Absolute Neuts (auto) 8.6 H Absolute Lymphs (auto) 2.00 Nucleated RBC % 0 Sodium 139 Potassium 4.1 Chloride 101 Carbon Dioxide 27.1 Anion Gap 11 BUN 15 Creatinine 1.19 Est GFR (MDRD) Non-Af 67 BUN/Creatinine Ratio 12.9 Glucose 137 H Calcium 9.6 Urine Color Yellow Urine Clarity Clear Urine pH 6.0 Ur Specific [place] 1.010 Urine Protein 30 H Urine Glucose (UA) 1000 H Urine Ketones Negative Urine Occult Blood 10 H Urine Nitrite Negative Urine Bilirubin Negative Urine Urobilinogen Normal Ur Leukocyte Esterase Negative Urine RBC 0 SEEN Urine WBC 0-5 SEEN Ur Squamous Epith Cells 0-5 SEEN Urine Bacteria 0 SEEN Urine Mucus 0 SEEN Radiography X-Ray: Read by ED Physician Diagnostic Testing: Clinical Impression(s) from Imaging Studies Brain CT 05/26/25 11:15 IMPRESSION: NO ACUTE FINDINGS Findings suggestive of encephalomalacia in the left temporoparietal lobes suggestive of old ischemic insult. Reading Location: [id number] Cervical Spine CT 05/26/25 11:15 IMPRESSION: DEGENERATIVE CHANGES OF THE CERVICAL SPINE. NO EVIDENCE OF SIGNIFICANT OSSEOUS CENTRAL CANAL OR NEURAL FORAMINAL STENOSIS. Reading Location: [id number] Chest X-Ray 05/26/25 11:15 IMPRESSION: Bibasilar atelectasis or pneumonia. Reading [facility] Lumbar Spine CT 05/26/25 11:15 IMPRESSION: NO ACUTE LUMBAR FRACTURE. DEGENERATIVE CHANGES. Reading Location: [id number] Thoracic Spine CT 05/26/25 11:51 IMPRESSION: NO ACUTE THORACIC FRACTURE. DEGENERATIVE CHANGES. Reading Location: [facility] EKG Initial EKG: Comments: 65 bpm, sinus rhythm, no ST elevation Discharge Plan Triage Chief Complaint: Weakness ED Midlevel Provider: Mehreen Gallagher ED Provider: Kaz Stovall Dx/Rx/DC Orders Clinical Impression: Other acute postprocedural pain, Difficulty walking, Generalized weakness Primary Care Provider: Amaya No Disposition Disposition: Acute Care Hospital [facility] What to do if you have Problems For any increased pain, shortness of breath, bleeding, nausea or vomiting, chestpain, or any unexpected problems, contact your Primary Care Provider. Call [facility] ([phone]) or report to the closest Emergency Room. Call 911 if necessary. 05/26/25 1516 <Electronically signed by Mehreen BRENNAN> Cosigner Signature (if applicable): 05/26/252 <Electronically signed by Kaz Stovall DO> CC: Dr. Amaya No MD ~ Signed [facility] Work Phone: [phone]) 219-911208-22-2025 Discharge summary [facility] Medical Records Department [address] [place] [address] Emergency Department Summary 05/26/25 MR#: [id number] Acct: [id number] Name: NICK SAN Rep #:[id number] : 1960 65 From: Mehreen BRENNAN PCP: Dr. Amaya No MD Status:ADM JESSICA Location: [place] [address] HPI History of Present Illness Chief Complaint: Weakness Narrative Narrative: Patient presenting today due to generalized weakness and difficulty ambulating. He had a L3/L4 decompression laminectomy and decompression of L3-L4, L4-L5 bilateral root foraminotomies at [facility] by Dr. Ayala. He was discharged home the next day. His daughter had advocated that he be discharged to a SNF due to concerns that he would not to do well at home but he was ultimately discharged home. He has had increased difficulty getting up on his own and lives at home with his who is unable to help him. He did have a fall yesterday in the bathroom getting up off the toilet and fellbackwards, hitting his head against the wall and his lower back against the wall. He reports his low back pain has been somewhat worse since his fall. 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 He is currently alert and oriented x 4. Patient denies fevers, chills, abdominal pain, urinary symptoms, bowel/bladder incontinence, and saddle anesthesia/paresthesia. He has a PMH of HLD, HTN, T2DM, Parkinson's disease, and dementia. [facility] Medical History Dementia Pain in joint involving right ankle and foot Wears glasses Depression Bladder disease High cholesterol Back pain Parkinson's disease Stroke/cerebrovascular accident Heartburn Non-smoker History of pain when walking History of edema History of echocardiogram Cardiology follow-up encounter Bilateral primary osteoarthritis of knee Pain in both knees Family history of prostate problems Kidney stones Hypertension Diabetes Arthritis Home Medications ?Medication ?Instructions ?Recorded ?Last Taken ?Type citalopram 40 mg tablet 40 mg PO DAILY DEPRESSION #9 0 02/07/25 Unknown Rx TABLETS clonidine HCl 0.2 mg tablet 0.2 mg PO BID BP #180 tabs 02/07/25 Unknown Rx lisinopril 10 mg tablet 10 mg PO QDAY #90 tabs 02/08 Unknown Rx pantoprazole 40 mg tablet,delayed 40 mg PO BID #180 ta bs 02/08/25 Unknown Rx release tamsulosin 0.4 mg capsule 0.4 mg PO QHS PROSTATE #90 c aps 02/08/25 Unknown Rx carbidopa 25 mg-levodopa 100 mg 2 tab PO TID PARKINSON 02/09/25 Unknown History tablet naproxen 500 mg tablet 500 mg PO BID #10 tabs 03/13 Unknown Rx acetaminophen 500 mg tablet 1,000 mg (2 x 500 mg) PO Q 8 #90 03/27/25 Unknown Rx tabs aspirin 81 mg tablet,delayed 81 mg PO DAILY HEART HEAL TH #90 03/27/25 Unknown Rx release tabs atorvastatin 20 mg tablet 20 mg PO QHS #90 tabs Unknown Rx dapagliflozin propanediol 10 mg 10 mg PO DAILY CHOLEST SOWMYA #90 tabs 03/27/25 Unknown Rx tablet oxycodone 5 mg tablet 5 mg PO 4X/DAY PRN PRN pain 05/26/25 Unknown History Allergy/AdvReac Type Severity Reaction Status Date / Time acetaminophen (From Vicodin) Allergy Intermediate Nausea/Vom/ Verified 05/26/25 10:29 Diarrhea hydrocodone (From Vicodin) Allergy Intermediate Nausea/Vom/ Verified 05/26/25 10:29 Diarrhea gabapentin Allergy Mild memory Verified 05/26/25 10:29 Family History Mother Hypertension Myocardial infarction Colon cancer CVA (cerebral vascular accident) Depression Diabetes Brother Colon cancer Cancer STOMACH CVA (cerebral vascular accident) Hypertension Father Hypertension Sister Diabetes Surgical History H/O laminectomy S/P knee replacement S/P total knee arthroplasty Social History household members: spouse current occupational status: retired current occupation: [employer] Smoking Status: Never smoker Electronic Cigarette Use: not used alcohol intake: never substance use type: does not use what type of physical activity do you participate in: none seatbelt use: sometimes do you feel safe at home: Yes ROS ROS ED Constitutional Constitutional ED: Denies chills or fever(s) Cardiovascular Cardiovascular: Denies chest pain Respiratory/Chest Respiratory/Chest: Denies dyspnea Gastrointestinal Gastrointestinal: Denies abdominal pain, nausea or vomiting Genitourinary Genitourinary ED: Denies dysuria, hematuria or urinary urgency Musculoskeletal Musculoskeletal: Reports back pain and neck pain Integumentary Denies Abrasions or rash Neurologic Neurologic: Reports weakness; Denies headache(s) or paresthesias EXAM Physical Exam Const Vital Signs: 05/26/25 10:29 05/26/25 11:15 05/26/25 11:30 Temperature 98.8 F Temperature Source Temporal Pulse Rate 74 67 67 Respiratory Rate 18 18 19 H Respiratory Pattern Blood Pressure 123/68 H 119/75 117/73 Blood Pressure Mean 86 89 86 Pulse Ox 97 93 94 05/26/25 11:31 05/26/25 11:45 05/26/25 11:45 Temperature Temperature Source Pulse Rate 63 Respiratory Rate 17 Respiratory Pattern Normal Blood Pressure 123/73 H 123/73 H Blood Pressure Mean 88 88 Pulse Ox 95 05/26/25 12:00 05/26/25 12:15 05/26/25 12:17 Temperature Temperature Source Pulse Rate 66 65 Respiratory Rate 14 15 Respiratory Pattern Blood Pressure 134/74 H 151/74 H Blood Pressure Mean 93 98 Pulse Ox 94 99 05/26/25 12:30 05/26/25 12:45 05/26/25 13:00 Temperature Temperature Source Pulse Rate 65 65 69 Respiratory Rate 17 21 H 17 Respiratory Pattern Blood Pressure 126/81 H 154/79 H 133/78 H Blood Pressure Mean 93 102 92 Pulse Ox 97 94 95 05/26/25 13:15 05/26/25 13:30 05/26/25 13:45 Temperature Temperature Source Pulse Rate 65 68 Respiratory Rate 16 15 Respiratory Pattern Blood Pressure 134/72 H 122/74 H 129/77 H Blood Pressure Mean 89 90 93 Pulse Ox 94 95 05/26/25 14:00 05/26/25 14:15 Temperature Temperature Source Pulse Rate 63 Respiratory Rate 22 H Respiratory Pattern Blood Pressure 143/76 H 136/85 H Blood Pressure Mean 96 101 Pulse Ox 93 Positive well nourished, well developed and no apparent distress General Appearance ED: well developed HEENT Reports normocephalic and head/scalp atraumatic Mouth ED: Yes moist mucous membranes normal Eyes PERRL and EOMs intact bilaterally Neck full ROM and supple Neck Narrative: Minimal midline mid cervical tenderness to palpation Chest Wall inspection of chest normal Resp normal respiratory effort and clear to auscultation bilaterally Cardio regular rate and regular rhythm GI soft to palpation, non-tender, non-distended and no masses Back/Spine normal ROM and normal to inspection Back/Spine Narrative: Surgical incision to the lumbar spine without dehiscence, warmth, erythema, or purulence Extremity normal to inspection and full ROM Neuro oriented x3, CN's II-XII intact bilaterally, moves all extremities, no focal motor deficits and no sensory deficits noted Sensorium / Orientation: awake and alert Psych mental status grossly normal and thought process normal Skin no rashes or lesions noted and no wounds MDM MDM MDM Narrative Medical decision making narrative: Patient presenting today due to concerns for generalized weakness and difficultyambulating wanting SNF placement. He just had laminectomy of his lumbar spine 2days ago at [facility]. His daughter had advocated thathe be placed in a rehab facility postop but they deemed that he was safe to go home. He did have a fall yesterday try to get up off the toilet and is having ahard time getting up on his own, he is able to walk once he is up but daughter reports there is nobody at home that can help him get aside from his who isnot much help. Patient is agreeable with this plan. Daughter reports he has a history of sundowners and dementia, he is alert and oriented x 4 here. Given his fall yesterday, head and neck CTs will be obtained to assess for intracranial bleed and cervical fracture, thoracic and lumbar spine CTs will be obtained to assess for fracture and complications given recent surgery. Brain, cervical spine, lumbar spine CT negative for any acute findings. His head CT looks like he may have had an old ischemic infarct. Chest x-ray shows bilateralatelectasis versus pneumonia, he does not have a cough or dyspnea to suggest pneumonia. He did just have surgery making atelectasis more likely. I spoke with the hospitalist, patient will be admitted in stable condition. Lab Data Attestation: I reviewed the patient's lab results. Labs: Laboratory Results - last 24 hr 05/26/25 05/26/25 11:25 14:17 WBC 12.0 H RBC 4.57 L Hgb 14.1 Hct 42.5 MCV 93.0 MCH 30.9 MCHC 33.2 RDW Std Deviation 44.7 H RDW Coeff of Mario 13.0 Plt Count 206 MPV 9.2 Immature Gran % (Auto) 0.300 Neut % (Auto) 71.5 H Lymph % (Auto) 16.6 L [place] % (Auto) 10.9 H Eos % (Auto) 0.3 Baso % (Auto) 0.4 Absolute Neuts (auto) 8.6 H Absolute Lymphs (auto) 2.00 Nucleated RBC % 0 Sodium 139 Potassium 4.1 Chloride 101 Carbon Dioxide 27.1 Anion Gap 11 BUN 15 Creatinine 1.19 Est GFR (MDRD) Non-Af 67 BUN/Creatinine Ratio 12.9 Glucose 137 H Calcium 9.6 Urine Color Yellow Urine Clarity Clear Urine pH 6.0 Ur Specific [place] 1.010 Urine Protein 30 H Urine Glucose (UA) 1000 H Urine Ketones Negative Urine Occult Blood 10 H Urine Nitrite Negative Urine Bilirubin Negative Urine Urobilinogen Normal Ur Leukocyte Esterase Negative Urine RBC 0 SEEN Urine WBC 0-5 SEEN Ur Squamous Epith Cells 0-5 SEEN Urine Bacteria 0 SEEN Urine Mucus 0 SEEN Radiography X-Ray: Read by ED Physician Diagnostic Testing: Clinical Impression(s) from Imaging Studies Brain CT 05/26/25 11:15 IMPRESSION: NO ACUTE FINDINGS Findings suggestive of encephalomalacia in the left temporoparietal lobes suggestive of old ischemic insult. Reading Location: [id number] Cervical Spine CT 05/26/25 11:15 IMPRESSION: DEGENERATIVE CHANGES OF THE CERVICAL SPINE. NO EVIDENCE OF SIGNIFICANT OSSEOUS CENTRAL CANAL OR NEURAL FORAMINAL STENOSIS. Reading Location: [id number] Chest X-Ray 05/26/25 11:15 IMPRESSION: Bibasilar atelectasis or pneumonia. Reading Location: [id number] Lumbar Spine CT 05/26/25 11:15 IMPRESSION: NO ACUTE LUMBAR FRACTURE. DEGENERATIVE CHANGES. Reading Location: [id number] Thoracic Spine CT 05/26/25 11:51 IMPRESSION: NO ACUTE THORACIC FRACTURE. DEGENERATIVE CHANGES. Reading Location: [id number] EKG Initial EKG: Comments: 65 bpm, sinus rhythm, no ST elevation Discharge Plan Triage Chief Complaint: Weakness ED Midlevel Provider: Mehreen Gallagher ED Provider: Kaz Stovall Dx/Rx/DC Orders Clinical Impression: Other acute postprocedural pain, Difficulty walking, Generalized weakness Primary Care Provider: Amaya No Disposition Disposition: Acute Care Hospital [facility] What to do if you have Problems For any increased pain, shortness of breath, bleeding, nausea or vomiting, chestpain, or any unexpected problems, contact your Primary Care Provider. Call [facility] ([phone]) or report tothe closest Emergency Room. Call 911 if necessary. 05/26/25 1516 Cosigner Signature (if applicable): 05/26/25 2112 CC: Dr. Amaya No MD ~ Signed [facility]08-22-2025 History and physical note [facility] Note Date/Time May 26, 2025 4: 14pm [facility] Medical Records Department [address] [place] [address] H&P Exam - Hospitalist 05/26/25 1434 MR#: [id number] Acct: [id number] Name: NICK SAN Rep #:[id number] : 1960 65 From: Jos nick DO PCP: Dr. Amaya No MD Status:ADM JESSICA Location: MS3 [id number] HPI - General General Date of Admission: 05/26/25 Date of Service: 05/26/25 Chief Complaint: Generalized weakness after recent lumbar spine procedure HPI Narrative NICK SAN, is a 65 M who presented to [facility] ED on 05/26/2025 with generalized weakness after recent lumbar spine procedure. [facility] records reviewed. Patient had L3-5 decompressive laminectomy procedure done at [facility] on 05/24 for history of lumbar canal stenosis with neurogenic claudication and difficulty with ambulation. Patient tolerated the procedure well and had borderline therapy scores there but opted to be discharged home with home health care on 05/25. Lives at home with his . Daughter is in town from [place] and noted that family pushed for SNF placement but patient ultimately decided for home health care. However, he has had general weakness at home and suffered a fall yesterday in the bathroom; noted he had difficulty getting off the toilet and fell backwards, hitting his head and lower back against the wall. Notes that his low back pain has been somewhat worse since that fall and given his level of debility, daughter broughthim in for evaluation for placement. In the ED he was hemodynamically stable onroom air at rest. CBC and BMP were benign. CT brain/C/T-spine were largely unremarkable. CT L-spine showed known degenerative changes with postoperative changes noted, no new concerning findings. Chest x-ray was unremarkable. Givenpatient is stable from an L-spine standpoint postoperatively, does not require transfer to [facility] at this time. Hospitalist was then contacted for admission. I saw the patient at bedside in the ED, daughter and son-in-law werepresent. Patient was mildly fatigued appearing but otherwise laying back comfortably in bed, conversing normally, in no acute distress. When he attempted to sit up for me to evaluate his back on exam, he had significant weakness noted and was unable to sit up without assistance. He does report postop low back pain that has been tolerable with oxycodone. Notes that his lower extremity numbness and tingling is much improved since the procedure. Denies any other acute concerns currently. Will be admitted for further management. PFSH Medical History Dementia Pain in joint involving right ankle and foot Wears glasses Depression Bladder disease High cholesterol Back pain Parkinson's disease Stroke/cerebrovascular accident Heartburn Non-smoker History of pain when walking History of edema History of echocardiogram Cardiology follow-up encounter Bilateral primary osteoarthritis of knee Pain in both knees Family history of prostate problems Kidney stones Hypertension Diabetes Arthritis Home Medications ?Medication ?Instructions ?Recorded ?Last Taken ?Type citalopram 40 mg tablet 40 mg PO DAILY DEPRESSION #9 0 02/07/25 Unknown Rx TABLETS clonidine HCl 0.2 mg tablet 0.2 mg PO BID BP #180 tabs 02/07/25 Unknown Rx lisinopril 10 mg tablet 10 mg PO QDAY #90 tabs 02/08 Unknown Rx pantoprazole 40 mg tablet,delayed 40 mg PO BID #180 ta bs 02/08/25 Unknown Rx release tamsulosin 0.4 mg capsule 0.4 mg PO QHS PROSTATE #90 c aps 02/08/25 Unknown Rx carbidopa 25 mg-levodopa 100 mg 2 tab PO TID PARKINSON 02/09/25 Unknown History tablet naproxen 500 mg tablet 500 mg PO BID #10 tabs 03/13 Unknown Rx acetaminophen 500 mg tablet 1,000 mg (2 x 500 mg) PO Q 8 #90 03/27/25 Unknown Rx tabs aspirin 81 mg tablet,delayed 81 mg PO DAILY HEART HEAL TH #90 03/27/25 Unknown Rx release tabs atorvastatin 20 mg tablet 20 mg PO QHS #90 tabs Unknown Rx dapagliflozin propanediol 10 mg 10 mg PO DAILY CHOLEST SOWMYA #90 tabs 03/27/25 Unknown Rx tablet oxycodone 5 mg tablet 5 mg PO 4X/DAY PRN PRN pain 05/26/25 Unknown History Allergy/AdvReac Type Severity Reaction Status Date / Time acetaminophen (From Vicodin) Allergy Intermediate Nausea/Vom/ Verified 05/26/25 10:29 Diarrhea hydrocodone (From Vicodin) Allergy Intermediate Nausea/Vom/ Verified 05/26/25 10:29 Diarrhea gabapentin Allergy Mild memory Verified 05/26/25 10:29 Family History Mother Hypertension Myocardial infarction Colon cancer CVA (cerebral vascular accident) Depression Diabetes Brother Colon cancer Cancer STOMACH CVA (cerebral vascular accident) Hypertension Father Hypertension Sister Diabetes Surgical History H/O laminectomy S/P knee replacement S/P total knee arthroplasty Social History household members: spouse current occupational status: retired current occupation: [employer] Smoking Status: Never smoker Electronic Cigarette Use: not used alcohol intake: never substance use type: does not use what type of physical activity do you participate in: none seatbelt use: sometimes do you feel safe at home: Yes ROS Constitutional Constitutional: Reports fatigue and weakness; Denies chills or fever(s) Eyes Eyes: Denies change in vision Cardiovascular Cardiovascular: Denies chest pain Respiratory/Chest Respiratory/Chest: Denies shortness of breath at rest Gastrointestinal Gastrointestinal: Denies abdominal pain Musculoskeletal Musculoskeletal: Reports back pain; Denies arthralgias or myalgias Neurologic Neurologic: Denies dizziness, focal weakness, headache(s), numbness or tingling Vital Signs Vital Signs Vital Signs: 05/26/25 10:29 05/26/25 11:15 05/26/25 11:30 Temperature 98.8 F Temperature Source Temporal Pulse Rate 74 67 67 Respiratory Rate 18 18 19 H Respiratory Pattern Blood Pressure 123/68 H 119/75 117/73 Blood Pressure Mean 86 89 86 Pulse Ox 97 93 94 05/26/25 11:31 05/26/25 11:45 05/26/25 11:45 Temperature Temperature Source Pulse Rate 63 Respiratory Rate 17 Respiratory Pattern Normal Blood Pressure 123/73 H 123/73 H Blood Pressure Mean 88 88 Pulse Ox 95 05/26/25 12:00 05/26/25 12:15 05/26/25 12:17 Temperature Temperature Source Pulse Rate 66 65 Respiratory Rate 14 15 Respiratory Pattern Blood Pressure 134/74 H 151/74 H Blood Pressure Mean 93 98 Pulse Ox 94 99 05/26/25 12:30 05/26/25 12:45 05/26/25 13:00 Temperature Temperature Source Pulse Rate 65 65 69 Respiratory Rate 17 21 H 17 Respiratory Pattern Blood Pressure 126/81 H 154/79 H 133/78 H Blood Pressure Mean 93 102 92 Pulse Ox 97 94 95 05/26/25 13:15 05/26/25 13:30 05/26/25 13:45 Temperature Temperature Source Pulse Rate 65 68 Respiratory Rate 16 15 Respiratory Pattern Blood Pressure 134/72 H 122/74 H 129/77 H Blood Pressure Mean 89 90 93 Pulse Ox 94 95 05/26/25 14:00 05/26/25 14:15 Temperature Temperature Source Pulse Rate 63 Respiratory Rate 22 H Respiratory Pattern Blood Pressure 143/76 H 136/85 H Blood Pressure Mean 96 101 Pulse Ox 93 Physical Exam Const alert, oriented x3 and no apparent distress Constitutional Narrative: Elderly male, class I obesity, mildly fatigued appearing, otherwise laying back comfortably in bed, conversing normally, in no acute distress. General Appearance: cooperative and comfortable HEENT normocephalic, head/scalp atraumatic, hearing grossly normal bilaterally, nasal mucous membranes and turbinates normal and moist oral mucous membranes Eyes PERRL, EOMs intact bilaterally and conjunctivae normal Neck full ROM Chest inspection of chest normal Resp normal respiratory effort, normal air movement, no use of accessory muscles and clear to auscultation bilaterally Cardio regular rate, regular rhythm, no murmurs and peripheral pulses 2+ throughout GI normal to inspection, nondistended, normoactive bowel sounds, soft to palpation,non-tender and non-distended Back/Spine Back/Spine Narrative: Unable to sit up in bed without assistance due to general weakness and some low back discomfort. Extremity normal to inspection and no pedal edema Skin no rashes or lesions noted Neuro moves all extremities and no focal motor deficits Speech: speech normal Psych mental status grossly normal Results Lab / Micro Data 05/26/25 11:25 05/26/25 11:25 Labs: Laboratory Results - last 24 hr 05/26/25 11:25: WBC 12.0 H, RBC 4.57 L, Hgb 14.1, Hct 42.5, MCV 93.0, MCH 30.9, MCHC 33.2, RDW Std Deviation 44.7 H, RDW Coeff of Mario 13.0, Plt Count 206, MPV 9.2, Immature Gran % (Auto) 0.300, Neut % (Auto) 71.5 H, Lymph % (Auto) 16.6 L, [place] % (Auto) 10.9 H, Eos % (Auto) 0.3, Baso % (Auto) 0.4, Absolute Neuts (auto)8.6 H, Absolute Lymphs (auto) 2.00, Nucleated RBC % 0, Sodium 139, Potassium 4.1, Chloride 101, Carbon Dioxide 27.1, Anion Gap 11, BUN 15, Creatinine 1.19, Est GFR (MDRD) Non-Af 67, BUN/Creatinine Ratio 12.9, Glucose 137 H, Calcium 9.6 05/26/25 14:17: Urine Color Yellow, Urine Clarity Clear, Urine pH 6.0, Ur Specific [place] 1.010, Urine Protein 30 H, Urine Glucose (UA) 1000 H, Urine Ketones Negative, Urine Occult Blood 10 H, Urine Nitrite Negative, Urine Bilirubin Negative, Urine Urobilinogen Normal, Ur Leukocyte Esterase Negative Imaging Radiology Impression Brain CT 05/26/25 11:15 IMPRESSION: NO ACUTE FINDINGS Findings suggestive of encephalomalacia in the left temporoparietal lobes suggestive of old ischemic insult. Reading Location: [id number] Cervical Spine CT 05/26/25 11:15 IMPRESSION: DEGENERATIVE CHANGES OF THE CERVICAL SPINE. NO EVIDENCE OF SIGNIFICANT OSSEOUS CENTRAL CANAL OR NEURAL FORAMINAL STENOSIS. Reading Location: [id number] Chest X-Ray 05/26/25 11:15 IMPRESSION: Bibasilar atelectasis or pneumonia. Reading Location[facility] Lumbar Spine CT 05/26/25 11:15 IMPRESSION: NO ACUTE LUMBAR FRACTURE. DEGENERATIVE CHANGES. Reading Location: TIARA Thoracic Spine CT 05/26/25 11:51 IMPRESSION: NO ACUTE THORACIC FRACTURE. DEGENERATIVE CHANGES. Reading Location: [id number] Assessment & Plan Assessment/Plan (1) Generalized weakness: (2) Difficulty walking: PLAN: Plan Patient is a 65-year-old male who presented to [facility] ED on 05/26/2025 with generalized weakness after recent lumbar spine procedure. 1. Acute on chronic debility with mechanical fall at home in setting of recent lumbar spine procedure ? Admit under observation status to [facility]. PT/OT/case management consulted. History of lumbar stenosis with neurogenic claudication, had planned L3-5 decompressive laminectomy done at [facility] on 05/24. Tolerated procedure well, no intraoperative complications noted. Borderline therapy scores postoperatively but patient opted for home with home health care, despitefamily's recommendation to pursue SNF placement. Patient had fall when trying to stand up from the toilet where he fell backwards and hit his head and low back. CT brain/C/T spine in the ED were unremarkable. CT L-spine showed chronic degenerative changes with postoperative changes noted, no other new concerning findings so no need for transfer to [facility] facility. Presume patient will need to placement on discharge, appreciate therapy recommendations. Pain control with scheduled Tylenol and oxycodone 5 mg every 6 hours as needed. Senna ordered for bowel regimen. 2. Parkinson's disease with dementia and history of sundowning ? Per history. Continue home Sinemet. Chronic medical conditions: ? Class I obesity: BMI 34 on admit. Complicates hospital course and care. ? Hypertension, hyperlipidemia, history of CVA: Normotensive on admit. Continuehome aspirin, statin, clonidine and lisinopril. ? Anxiety/depression: Stable. Continue home citalopram. ? GERD: Continue home PPI. ? BPH with obstructive symptoms: Continue home Flomax. ? Type 2 diabetes mellitus: A1c 6.3% on admit. Blood glucose 137. Will hold home dapagliflozin and treat with sliding scale insulin with meals while inpatient. DVT prophylaxis: Lovenox CODE STATUS: Full code, verified Expected disposition: SNF, 1 to 2 days Total clinical time spent by myself addressing the patient's medical issues, reviewing all the data, and collaborating with patient's care team: 75 minutes. Charges/Coding Visit Charges Inpatient E&M: 26895 Init Hosp L3 05/26/25 4827 <Electronically signed by Jos Teresa DO> Cosigner Signature (if applicable): CC: Dr. Jos Teresa DO; Dr. Amaya No MD~ Signed [facility] Work Phone: 1(236) 881-740108-22-2025 History and physical note [facility] Medical Records Department [address] [place] [address] H&P Exam - Hospitalist 05/26/25 1434 MR#: [id number] Acct: [id number] Name: NICK SAN Rep #:[id number] : 1960 65 From: Jos nick DO PCP: Dr. Amaya No MD Status:ADM JESSICA Location: [place] [id number] HPI - General General Date of Admission: 05/26/25 Date of Service: 05/26/25 Chief Complaint: Generalized weakness after recent lumbar spine procedure HPI Narrative NICK SAN, is a 65 M who presented to [facility] ED on 05/26/2025 with generalized weakness after recent lumbar spine procedure. [facility] records reviewed. Patient had L3-5 decompressive laminectomy procedure done at [facility] on 05/24 for history of lumbar canal stenosis with neurogenic claudication and difficulty with ambulation. Patient tolerated the procedure well and had borderline therapy scores there but opted to be discharged home with home health care on05/25. Lives at home with his . Daughter is in town from [place] and noted that family pushed for SNF placement but patient ultimately decided for home health care. However, he has had general weakness at home and suffered a fall yesterday in the bathroom; noted he had difficulty getting off thetoilet and fell backwards, hitting his head and lower back against the wall. Notes that his low back pain has been somewhat worse since that fall and given his level of debility, daughter broughthim in for evaluation for placement. In the ED he was hemodynamically stable onroom air at rest. CBC andBMP were benign. CT brain/C/T-spine were largely unremarkable. CT L-spine showed known degenerativechanges with postoperative changes noted, no new concerning findings. Chest x-ray was unremarkable.Givenpatient is stable from an L-spine standpoint postoperatively, does not require transfer to [facility] at this time. Hospitalist was then contacted for admission. I saw the patient at bedside in the ED, daughter and son-in-law werepresent. Patient was mildly fatigued appearing but otherwise laying back comfortably in bed, conversing normally, in no acute distress. When he attempted to sit up for me to evaluate his back on exam, he had significant weakness noted and was unable to sit up without assistance. He does report postop low back pain that has been tolerable with oxycodone. Notes that his lower extremity numbness and tingling is much improved since the procedure. Denies any other acute concerns currently. Will be admitted for further management. [facility] Medical History Dementia Pain in joint involving right ankle and foot Wears glasses Depression Bladder disease High cholesterol Back pain Parkinson's disease Stroke/cerebrovascular accident Heartburn Non-smoker History of pain when walking History of edema History of echocardiogram Cardiology follow-up encounter Bilateral primary osteoarthritis of knee Pain in both knees Family history of prostate problems Kidney stones Hypertension Diabetes Arthritis Home Medications ?Medication ?Instructions ?Recorded ?Last Taken ?Type citalopram 40 mg tablet 40 mg PO DAILY DEPRESSION #9 0 02/07/25 Unknown Rx TABLETS clonidine HCl 0.2 mg tablet 0.2 mg PO BID BP #180 tabs 02/07/25 Unknown Rx lisinopril 10 mg tablet 10 mg PO QDAY #90 tabs 02/08 Unknown Rx pantoprazole 40 mg tablet,delayed 40 mg PO BID #180 ta bs 02/08/25 Unknown Rx release tamsulosin 0.4 mg capsule 0.4 mg PO QHS PROSTATE #90 c aps 02/08/25 Unknown Rx carbidopa 25 mg-levodopa 100 mg 2 tab PO TID PARKINSON 02/09/25 Unknown History tablet naproxen 500 mg tablet 500 mg PO BID #10 tabs 03/13 Unknown Rx acetaminophen 500 mg tablet 1,000 mg (2 x 500 mg) PO Q 8 #90 03/27/25 Unknown Rx tabs aspirin 81 mg tablet,delayed 81 mg PO DAILY HEART HEAL TH #90 03/27/25 Unknown Rx release tabs atorvastatin 20 mg tablet 20 mg PO QHS #90 tabs Unknown Rx dapagliflozin propanediol 10 mg 10 mg PO DAILY CHOLEST SOWMYA #90 tabs 03/27/25 Unknown Rx tablet oxycodone 5 mg tablet 5 mg PO 4X/DAY PRN PRN pain 05/26/25 Unknown History Allergy/AdvReac Type Severity Reaction Status Date / Time acetaminophen (From Vicodin) Allergy Intermediate Nausea/Vom/ Verified 05/26/25 10:29 Diarrhea hydrocodone (From Vicodin) Allergy Intermediate Nausea/Vom/ Verified 05/26/25 10:29 Diarrhea gabapentin Allergy Mild memory Verified 05/26/25 10:29 Family History Mother Hypertension Myocardial infarction Colon cancer CVA (cerebral vascular accident) Depression Diabetes Brother Colon cancer Cancer STOMACH CVA (cerebral vascular accident) Hypertension Father Hypertension Sister Diabetes Surgical History H/O laminectomy S/P knee replacement S/P total knee arthroplasty Social History household members: spouse current occupational status: retired current occupation: [employer] Smoking Status: Never smoker Electronic Cigarette Use: not used alcohol intake: never substance use type: does not use what type of physical activity do you participate in: none seatbelt use: sometimes do you feel safe at home: Yes ROS Constitutional Constitutional: Reports fatigue and weakness; Denies chills or fever(s) Eyes Eyes: Denies change in vision Cardiovascular Cardiovascular: Denies chest pain Respiratory/Chest Respiratory/Chest: Denies shortness of breath at rest Gastrointestinal Gastrointestinal: Denies abdominal pain Musculoskeletal Musculoskeletal: Reports back pain; Denies arthralgias or myalgias Neurologic Neurologic: Denies dizziness, focal weakness, headache(s), numbness or tingling Vital Signs Vital Signs Vital Signs: 05/26/25 10:29 05/26/25 11:15 05/26/25 11:30 Temperature 98.8 F Temperature Source Temporal Pulse Rate 74 67 67 Respiratory Rate 18 18 19 H Respiratory Pattern Blood Pressure 123/68 H 119/75 117/73 Blood Pressure Mean 86 89 86 Pulse Ox 97 93 94 05/26/25 11:31 05/26/25 11:45 05/26/25 11:45 Temperature Temperature Source Pulse Rate 63 Respiratory Rate 17 Respiratory Pattern Normal Blood Pressure 123/73 H 123/73 H Blood Pressure Mean 88 88 Pulse Ox 95 05/26/25 12:00 05/26/25 12:15 05/26/25 12:17 Temperature Temperature Source Pulse Rate 66 65 Respiratory Rate 14 15 Respiratory Pattern Blood Pressure 134/74 H 151/74 H Blood Pressure Mean 93 98 Pulse Ox 94 99 05/26/25 12:30 05/26/25 12:45 05/26/25 13:00 Temperature Temperature Source Pulse Rate 65 65 69 Respiratory Rate 17 21 H 17 Respiratory Pattern Blood Pressure 126/81 H 154/79 H 133/78 H Blood Pressure Mean 93 102 92 Pulse Ox 97 94 95 05/26/25 13:15 05/26/25 13:30 05/26/25 13:45 Temperature Temperature Source Pulse Rate 65 68 Respiratory Rate 16 15 Respiratory Pattern Blood Pressure 134/72 H 122/74 H 129/77 H Blood Pressure Mean 89 90 93 Pulse Ox 94 95 05/26/25 14:00 05/26/25 14:15 Temperature Temperature Source Pulse Rate 63 Respiratory Rate 22 H Respiratory Pattern Blood Pressure 143/76 H 136/85 H Blood Pressure Mean 96 101 Pulse Ox 93 Physical Exam Const alert, oriented x3 and no apparent distress Constitutional Narrative: Elderly male, class I obesity, mildly fatigued appearing, otherwise laying back comfortably in bed,conversing normally, in no acute distress. General Appearance: cooperative and comfortable HEENT normocephalic, head/scalp atraumatic, hearing grossly normal bilaterally, nasal mucous membranes and turbinates normal and moist oral mucous membranes Eyes PERRL, EOMs intact bilaterally and conjunctivae normal Neck full ROM Chest inspection of chest normal Resp normal respiratory effort, normal air movement, no use of accessory muscles and clear to auscultation bilaterally Cardio regular rate, regular rhythm, no murmurs and peripheral pulses 2+ throughout GI normal to inspection, nondistended, normoactive bowel sounds, soft to palpation,non-tender and non-distended Back/Spine Back/Spine Narrative: Unable to sit up in bed without assistance due to general weakness and some low back discomfort. Extremity normal to inspection and no pedal edema Skin no rashes or lesions noted Neuro moves all extremities and no focal motor deficits Speech: speech normal Psych mental status grossly normal Results Lab / Micro Data 05/26/25 11:25 05/26/25 11:25 Labs: Laboratory Results - last 24 hr 05/26/25 11:25: WBC 12.0 H, RBC 4.57 L, Hgb 14.1, Hct 42.5, MCV 93.0, MCH 30.9, MCHC 33.2, RDW Std Deviation 44.7 H, RDW Coeff of Mario 13.0, Plt Count 206, MPV 9.2, Immature Gran % (Auto) 0.300, Neut % (Auto) 71.5 H, Lymph % (Auto) 16.6 L, [place] % (Auto) 10.9 H, Eos % (Auto) 0.3, Baso % (Auto) 0.4, Absolute Neuts (auto)8.6 H, Absolute Lymphs (auto) 2.00, Nucleated RBC % 0, Sodium 139, Potassium 4.1, Chloride 101, Carbon Dioxide 27.1, Anion Gap 11, BUN 15, Creatinine 1.19, Est GFR (MDRD) Non-Af 67, BUN/Creatinine Ratio 12.9, Glucose 137 H, Calcium 9.6 05/26/25 14:17: Urine Color Yellow, Urine Clarity Clear, Urine pH 6.0, Ur Specific [place] [employer] 1.010, Urine Protein 30 H, Urine Glucose (UA) 1000 H, Urine Ketones Negative, Urine Occult Blood 10 H, UrineNitrite Negative, Urine Bilirubin Negative, Urine Urobilinogen Normal, Ur Leukocyte Esterase Negative Imaging Radiology Impression Brain CT 05/26/25 11:15 IMPRESSION: NO ACUTE FINDINGS Findings suggestive of encephalomalacia in the left temporoparietal lobes suggestive of old ischemic insult. Reading Location: [facility] Cervical Spine CT 05/26/25 11:15 IMPRESSION: DEGENERATIVE CHANGES OF THE CERVICAL SPINE. NO EVIDENCE OF SIGNIFICANT OSSEOUS CENTRAL CANAL OR NEURAL FORAMINAL STENOSIS. Reading Location: [id number] Chest X-Ray 05/26/25 11:15 IMPRESSION: Bibasilar atelectasis or pneumonia. Reading [facility] Lumbar Spine CT 05/26/25 11:15 IMPRESSION: NO ACUTE LUMBAR FRACTURE. DEGENERATIVE CHANGES. Reading Location: [id number] Thoracic Spine CT 05/26/25 11:51 IMPRESSION: NO ACUTE THORACIC FRACTURE. DEGENERATIVE CHANGES. Reading Location: [id number] Assessment & Plan Assessment/Plan (1) Generalized weakness: (2) Difficulty walking: PLAN: Plan Patient is a 65-year-old male who presented to [facility] ED on 05/26/2025 with generalized weakness after recent lumbar spine procedure. 1. Acute on chronic debility with mechanical fall at home in setting of recent lumbar spine procedure ? Admit under observation status to [facility]. PT/OT/case management consulted. History of lumbar stenosis with neurogenic claudication, had planned L3-5 decompressive laminectomy done at [facility] on 05/24. Tolerated procedure well, no intraoperative complications noted. Borderline therapy scores postoperatively but patient opted for home with home health care, [facility]. Patient had fall when trying to stand up from the toilet where he fell backwards and hit his head and low back. CT brain/C/T spine in the ED were unremarkable. CT L-spine showed chronic degenerative changes with postoperative changes noted, no other new concerning findings so no need for transfer to [facility] facility. Presume patient will need to placement on discharge, appreciate therapy recommendations. Pain control with scheduled Tylenol and oxycodone 5 mg every 6 hours as needed. Senna ordered for bowel regimen. 2. Parkinson's disease with dementia and history of sundowning ? Per history. Continue home Sinemet. Chronic medical conditions: ? Class I obesity: BMI 34 on admit. Complicates hospital course and care. ? Hypertension, hyperlipidemia, history of CVA: Normotensive on admit. Continuehome aspirin, statin, clonidine and lisinopril. ? Anxiety/depression: Stable. Continue home citalopram. ? GERD: Continue home PPI. ? BPH with obstructive symptoms: Continue home Flomax. ? Type 2 diabetes mellitus: A1c 6.3% on admit. Blood glucose 137. Will hold home dapagliflozin and treat with sliding scale insulin with meals while inpatient. DVT prophylaxis: Lovenox CODE STATUS: Full code, verified Expected disposition: SNF, 1 to 2 days Total clinical time spent by myself addressing the patient's medical issues, reviewing all the data, and collaborating with patient's care team: 75 minutes. Charges/Coding Visit Charges Inpatient E&M: 90720 Init Hosp L3 05/26/25 1614 Cosigner Signature (if applicable): CC: Dr. Jos Teresa DO; Dr. Amaya No MD~ Signed [facility]08-22-2025 Radiology Diagnostic study note [facility] Imaging Services [address], [place] [id number] Chest PA and Lateral MR#: [id number] Acct: [id number] Name: MARLONNICK HUTSON R Rep #: [id number] : 1960 M 65 From: Lizzie Crooks MD PCP: Dr. Amaya No MD Status: REG ER Study:Chest PA and Lateral Date of Exam: 05/26/25 Exam# [id number] Ordering Dr: Mehreen Day EXAM: XR Chest, 2 Views CLINICAL INDICATION: WEAKNESS TECHNIQUE: Frontal and lateral views of the chest. COMPARISON: No relevant prior studies available. FINDINGS: LUNGS AND PLEURAL SPACES: Bibasilar atelectasis or pneumonia. No pneumothorax. HEART: Unremarkable. No cardiomegaly. MEDIASTINUM: Unremarkable. Normal mediastinal contour. BONES/JOINTS: Unremarkable. No acute fracture. RAD/Chest PA and Lateral IMPRESSION: Bibasilar atelectasis or pneumonia. Reading Location: [facility] CC: Dr. Amaya No MD; ANU Kline ~ Corporate Intern: Signed [facility]08-22-2025 Radiology Diagnostic study note [facility] Imaging Services [address], [place] [address] Spine Lumbar without Contrast MR#: [id number] Acct: [id number] Name: NICK SAN R Rep #: [id number] : 1960 M 65 From: Lai Hendrix MD PCP: Dr. Amaya No MD Status: REG ER Study:Spine Lumbar without Contrast Date of E xam: 05/26/25 Exam# [id number] Ordering Dr: Mehreen Day PROCEDURE: SPINE LUMBAR WITHOUT CONTRAST 05/26/2025 REASON FOR EXAM: RECENT SURGERY, FALL, PAIN Recent laminectomy on May 24, 2025. TECHNIQUE: SPINE LUMBAR WITHOUT CONTRAST Coronal and Sagittal reconstruction series were provided. One or more dose reduction techniques were used (e.g., Automated exposure control, adjustment of the mA and/or kV according to patient size, use of iterative reconstruction technique RADIATION DOSE SUMMARY: CTDlvol: 44.36 mGy DLP: 1333.08 mGycm FINDINGS: Vertebrae: Patient is status post laminectomy at the L3-L4, L4-L5 and L5-S1 levels. Postoperative soft tissue changes are seen in the overlying skin. There is a small amount of retroperitoneal air on the left side most likely related to the recent laminectomy. Alignment: Loss of the normal lumbar lordosis most likely secondary to muscle spasm. L1-2: Mild degree of disc space narrowing and spondylosis. Small amount of air is seen in the left retroperitoneal region. No significant stenosis seen. L2-3: Mild degree of disc space narrowing and disc degeneration. Spondylosis. Facet joint osteoarthritis. No significant stenosis seen. L3-4: Mild degree of disc space narrowing. Spondylosis. Facet joint osteoarthritis and hypertrophy.Diffuse posterior disc bulge. Small amount of air is seen within the left side of the thecal sac. L4-5: Marked degree of disc space narrowing with spondylosis and subchondral sclerosis. Postoperative changes are seen. L5-S1: Marked degree of disc space narrowing. Spondylosis. No significant stenosis seen. Sacrum: Unremarkable CT/Spine Lumbar without Contrast IMPRESSION: NO ACUTE LUMBAR FRACTURE. DEGENERATIVE CHANGES. Reading Location: [id number] CC: Dr. Amaya No MD; ANU Kline ~ Corporate Intern: Signed [facility]08-22-2025 Radiology Diagnostic study note [facility] Services [address] [place] [address] Spine Thoracic without Contras MR#: [id number] Acct: [id number] Name: NICK SAN Rep #: [id number] : 1960 M 65 From: Lai Hendrix MD PCP: Dr. Amaya No MD Status: REG ER Study:Spine Thoracic without Contras Date of Exam: 05/26/25 Exam# [id number] Ordering Dr: Dania Stovall DO PROCEDURE: SPINE THORACIC WITHOUT CONTRAS 05/26/2025 REASON FOR EXAM: BACK PAIN TECHNIQUE: SPINE THORACIC WITHOUT CONTRAS Coronal and Sagittal reconstruction series were provided. One or more dose reduction techniques were used (e.g., Automated exposure control, adjustment of the mA and/or kV according to patient size, use of iterative reconstruction technique). RADIATION DOSE SUMMARY: CTDlvol: 40.55 mGy DLP: 1755.87 mGycm COMPARISON: None FINDINGS: Alignment: Normal alignment. Bones: Spondylosis and multilevel disc space narrowing. Soft Tissues: Atherosclerotic calcific plaques of the aortic arch and descendingthoracic aorta. Other: CT/Spine Thoracic without Contras IMPRESSION: NO ACUTE THORACIC FRACTURE. DEGENERATIVE CHANGES. Reading Location: [id number] CC: Dr. Amaya No MD; Dr. Kaz Stovall DO ~ Corporate Intern: Signed [facility]08-22-2025 Radiology Diagnostic study note [facility] Imaging Services [address] [place] [address] Brain/Head without Contrast MR#: [id number] Acct: [id number] Name: NICK SAN Rep #: [id number] : 1960 M 65 From: Lai Hendrix MD PCP: Dr. Amaya No MD Status: REG ER Study:Brain/Head without Contrast Date of Exa m: 05/26/25 Exam# [id number] Ordering Dr: Mehreen Day PROCEDURE: BRAIN/HEAD WITHOUT CONTRAST 05/26/2025 REASON FOR EXAM: FALL, HEAD INJURY TECHNIQUE: BRAIN/HEAD WITHOUT CONTRAST Coronal and Sagittal reconstruction series were provided. One or more dose reduction techniques were used (e.g., Automated exposure control, adjustment of the mA and/or kV according to patient size, use of iterative reconstruction technique. RADIATION DOSE SUMMARY: CTDlvol: 44.99 mGy DLP: 812.98 mGycm COMPARISON: None FINDINGS: Brain: Low density in the periventricular white matter suggests mild chronic small vessel ischemic changes. Focal area of encephalomalacia in the left temporal parietal lobes suggestive of old ischemic insult. No surrounding mass effect. CSF Spaces: Mild generalized cerebral atrophy Sinuses/Mastoids: Minimal mucosal thickening at the base of the left maxillary sinus. Bones: No fracture is seen. CT/Brain/Head without Contrast IMPRESSION: NO ACUTE FINDINGS Findings suggestive of encephalomalacia in the left temporoparietal lobes suggestive of old ischemic insult. Reading Location: [id number] CC: Dr. Amaya No MD; ANU Kline ~ Corporate Intern: Signed [facility]08-22-2025 Radiology Diagnostic study note [facility] Imaging Services [address] [place] [address] Spine Cervical without Contras MR#: [id number] Acct: [id number] Name: NICK SAN Rep #: [id number] : 1960 M 65 From: Lai Hendrix MD PCP: Dr. Amaya No MD Status: REG ER Study:Spine Cervical without Contras Date of Exam: 05/26/25 Exam# [id number] Ordering Dr: Mehreen Day PROCEDURE: SPINE CERVICAL WITHOUT CONTRAS 05/26/2025 REASON FOR EXAM: FALL, PAIN TECHNIQUE: SPINE CERVICAL WITHOUT CONTRAS Coronal and Sagittal reconstruction series were provided. One or more dose reduction techniques were used (e.g., Automated exposure control, adjustment of the mA and/or kV according to patient size, use of iterative reconstruction technique. RADIATION DOSE SUMMARY: CTDlvol: 25.41 mGy DLP: 537.80 mGycm COMPARISON: None FINDINGS: Alignment: Straightening of the normal cervical lordosis most likely secondary to muscular spasm. Vertebrae: Vertebral heights are well-maintained. Soft Tissues: Calcific plaques at the level of the carotid bifurcations. Other: C1-2: Unremarkable C2-3: Mild degree of disc space narrowing. Spondylosis. No evidence of stenosis. C3-4: Mild degree of disc space narrowing. Mild anterior spondylosis. No significant abnormality isseen. C4-5: Mild degree of disc space narrowing. No significant stenosis seen. Spondylosis. C5-6: Mild degree of disc space narrowing. Anterior spondylosis. No significant stenosis seen. C6-7: Moderate degree of disc space narrowing and spondylosis. No significant stenosis seen. C7-T1: Unremarkable CT/Spine Cervical without Contras IMPRESSION: DEGENERATIVE CHANGES OF THE CERVICAL SPINE. NO EVIDENCE OF SIGNIFICANT OSSEOUS CENTRAL CANAL OR NEURAL FORAMINAL STENOSIS. Reading Location: [id number] CC: Dr. Amaya No MD; ANU Kline ~ Corporate Intern: Signed [facility]08-21-2025 NoteHNO ID: [id number] Author: CARMINA FREEMAN RN Service: Care Management Author Type: Registered Nurse Type: Care Mgt Progress Note Filed: 05/25/2025 15:22 Note Text: CARE MANAGEMENT DISCHARGE NOTE SERVICE DATE: May 25, 2025 SERVICE TIME: 3:31 pm Admission Date: 05/24/2025 LOS: 1 day DTransportation Arrangements Transportation Arrangements: Car Handoff Communication: Additional Information: Pt DC with [facility]. Pt was transported home by his daughter. No further needs. SIGNATURE: Carmina Freeman RN PATIENT NAME: Nick San DATE: May 25, 2025 TIME: 3:16 [facility]08-21-2025 NoteHNO ID: [id number] Author: SANDRA SINGH CPhT Service: ? Author Type: Master Planner Type: Plan of Care Filed: 05/25/2025 14:46 Note Text: PHARMACY BEDSIDE DELIVERY SERVICE Patient Name: Nick San The marked outpatient medications were Filled at: [facility] and delivered to the patient's bedside to [...] 1 capsule by mouth once daily. Sandra Singh, peer support specialist May 25, 2025 2:45 [place] [address]-21-2025 Telephone encounter Note* Telephone Encounter - Binh Esquivel LPN - 05/25/2025 1:46 PM EDT Date/Time: 05/25/2025 1:46 PM Spoke with nicole Grewal @ phone #: [phone] - Preferred # for contact: [phone] Have you received help from a home care company in the last 60 days? No Can you commit to a visit in this time frame? Yes - If no, please advise that we would not be able to move forward with services and they would need to contact their provider when they are ready to start services. Are you agreeable to [facility] services? Yes What address will we be seeing you at? [address], [address], [place] [address] Do you have any upcoming appointments or things we need to schedule around? Unsure Do you have a teachable CG or can you manage your care independently? CG Who? STUDENT SUPPORT SERVICES DIRECTOR [facility] Work Phone: [phone]) 410-455708-21-2025 Miscellaneous Notes* Telephone Encounter - Binh Esquivel LPN - 05/25/2025 1:46 PM EDT Date/Time: 05/25/2025 1:46 PM Spoke with nicole Grewal @ phone #: [phone] - Preferred # for contact: [phone] Have you received help from a home care company in the last 60 days? No Can you commit to a visit in this time frame? Yes - If no, please advise that we would not be able to move forward with services and they would need to contact their provider when they are ready to start services. Are you agreeable to [facility] services? Yes What address will we be seeing you at? [address], [address], [place] [address] Do you have any upcoming appointments or things we need to schedule around? Unsure Do you have a teachable CG or can you manage your care independently? CG Who? STUDENT SUPPORT SERVICES DIRECTOR documented in [facility]25 NoteHNO ID: [id number] Author: CARMINA FREEMAN RN Service: Care Management Author Type: Registered Nurse Type: Care Mgt Initial Assessment Filed: 05/25/2025 13:41 Note Text: CARE MANAGEMENT: ASSESSMENT AND DISCHARGE PLAN SERVICE DATE: May 25, 2025 SERVICE TIME: 1:41 pm PCP: Aga Benitez MD Primary Contact: Extended Emergency Contact Information Primary Emergency Contact: JeremieTonnyBecka OSVALDO Mobile Relation: Daughter Preferred language: SAO TOMEAN Shop Welder needed? No Secondary Emergency Contact: Dank Grier OSVALDO Mobile Relation: Relative Preferred language: SAO TOMEAN Shop Welder needed? No Admission Status: Extended Recovery Insurance Provider: [employer] MEDICARE HMO Discharge Planning requested by: Per Department Practice Potential Transition Plans Home, Home Care, Home OT/PT Advance Directives Current Advance Directive: None Inorganic Chemistry Teacher Attempted to Assist with AD Completion: Yes [...] General wellness, Be able to go home [place] of Choice Explained: [place] of Choice Given: Yes Level of Care [...] available for the patient's needs. SIGNATURE: Carmina Freeman RN PATIENT NAME: Nick San DATE: May 25, 2025 TIME: 1:39 [facility]08-20-2025 NoteHNO ID: [id number] Author: LILA ZIMMERMAN APRN.COMPOSITION WEATHERBOARD INSTALLER Service: Anesthesiology Author Type: Nurse Video Editing Internship Type: Anesthesia Procedure Notes Filed: 05/24/2025 16:06 Note Text: ANESTHESIOLOGY PROCEDURE NOTE Airway General Information Procedure Start Time/Medication Administration: 05/24/2025 3:39 PM Procedure End Time: 05/24/2025 3:41 PM Patient location during procedure: OR Timeout Performed Pre-procedure: timeout performed Consent Obtained: Yes Patient identity confirmed: arm band Staffing Anesthesiologist: Mal Chua MD COMPOSITION WEATHERBOARD INSTALLER: Lila Zimmerman APRN.COMPOSITION WEATHERBOARD INSTALLER Performed by: GEM Indications and Patient Condition [...] intubation: no Airway not difficult SIGNATURE: Lila Zimmerman APRN.CRNA PATIENT NAME: Nick San DATE: May 24, 2025 TIME: 4:05 PM CSN: [id number] NoteHNO ID: [id number] Author: NICK ENNIS, PhD Service: ? Author Type: Psychologist Type: Progress Notes Filed: 05/23/2025 14:51 Note Text: Name: Nick San [facility] Date of Testin05/01/2025 Neuropsychology Test Summary This [...] 2 0 Semantic Fluency 43 0 0 [place] Making Test (Breanna) T Score Total Errors [...] Total Score GDS-SF 2 GAS-10 4 [facility] NoteHNO ID: [id number] Author: NICK ENNIS, PhD Service: ? Author Type: Psychologist Type: Progress Notes Filed: 05/23/2025 14:49 Note Text: [facility] Neuropsychological Evaluation Report Patient: Nick San Date of : 1960 Dates of Service: 05/01/2025 (testing), 05/23/2025 (feedback) Referral Source: Dr. Miranda Del Rio (neurology) Referral: Mr. Nick San is a 65-year-old, right-handed male referred for [...] day care. Daughter and son-in-law live in [place], coming up often to help care for him. They want [place] to move to [place] but unsure if this is possible. She [...] No complications or developmental delays Language: Monolingual Ethiopian speaker Education: Completed 9 years of education. 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 Earned mostly average grades. Reported some difficulty with Ethiopian in school but not able to elaborate; family not aware of this and not able to clarify. Never formally diagnosed with learning disorder. 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 Miranda Del Rio (neurology) Referral: Mr. Nick San is a 65-year-old, right-handed male referred for a neuropsychological evaluation to assess his current neurocognitive functioning and to assist in diagnosis and treatmentplanning. He was accompanied by his daughter and son-in-law who provided collateral history. The current evaluation was performed in the context of medical care and a clinical referral question and not for purposes of a forensic, disability, or workers' compensation evaluation. Details of the patient's history are already known to the referral source and are only briefly summarized. Verbalinformed consent was obtained prior to the evaluation. HISTORY & BACKGROUND: Pertinent Neurological History Parkinson's disease diagnosed about 1 year ago Subjective Cognitive & Functional Status Current Cognitive Complaints: Endorsed problems with short term memory. The patient's daughter and son-in-law agreed and added that the patient has difficulty with word-finding and confusion. Starteddonepezil 1 month ago but no improvement Onset/Course: Cognitive problems began after he had a knee replacement last year and have worsened over time IADLs/ADLs: Patient lives with his , but she is not very involved in his day to day care. Daughter and son-in-law live in [place], coming up often to help care for him. They want [place] to move to [place] butunsure if this is possible. She obtained medical/financial [...] to get health home aides but patient's wifedoesn't want this Physical Function Motor: Balance difficulties, [...] his dreams. She monitors him at night withAlexa in his room, considering getting a camera. [...] No complications or developmental delays Language: Monolingual Ethiopian speaker Education: Completed 9 years of education. 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 Earned mostly average grades. Reported some difficulty with Ethiopian in school but not able to elaborate; family not aware of this and not able to clarify. Never formally diagnosed with learning disorder. 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 One [...] Prior Workup MMSE (01/23/25): 24/30. No prior IRB COMPLIANCE COORDINATOR testing on file Neurologic Exam (03/27/25): R>L parkinsonism MRI (01/06/24): Severe chronic microvascular changes, moderate generalized volume loss Labs: B12 (06/28) - WNL. Folate (06/28) - WNL. TSH (02/25) - WNL. Neurobehavioral Exam & Observations Consciousness: Awake and alert Ambulation: Cane [...] during testing and often joked with the broadcast operations technician. On Daily Living Memory Recognition he did not provide a response on 2 of the 8 items, which was considered ininterpretation. He demonstrated good mental stamina; no breaks. Validity The patient scored in the valid range on three of three standalone and embedded performance validity tests. When viewed together with behavioral observations, the results are judged to be a valid andaccurate representation of his current neurocognitive functioning. A list of administered tests rosario summary of individual test scores is attached as an addendum. An overview of the results is belowbut I will not discuss every single test or score. Screening Measures Clock Drawing Tests: 5/10 Moderate Impairment (normal clock face, numbers backwards, only 1 hand) Premorbid Low Average Attention & Processing Speed Auditory Attention Span: Average Auditory Working Memory: Exceptionally Low to Moderately Low Visual Working Memory: Moderately Low Speed of Information Processing: Variable (Exceptionally Low to Low Average) Language & Verbal Confrontation Naming: Exceptionally Low (good benefit from cues) Semantic Fluency: Average Learning & Memory Verbal Unstructured Immediate Recall: Exceptionally Low Delayed Recall: Exceptionally Low Recognition: Moderately Low Verbal Structured Immediate Recall: Moderately Low Delayed Recall: Low Average Recognition: Moderately Low (questionable clinical significance) Visual Immediate Recall: Exceptionally Low Delayed Recall: Exceptionally Low Recognition: Within Normal Expectations Visuospatial & Construction Visuoperception: Exceptionally Low Visuoconstruction (figure copy): [...] disturbance, nighttime behaviors, and decreased appetite. SUMMARY & CLINICAL IMPRESSIONS: Summary of Test Findings: Results from this neuropsychological evaluation suggest that Mr. San's longstanding general level of ability has likely [...] endorsed minimal symptoms of depression/anxiety on mood scre ening measures; however, his daughter reported numerous neurobehavioral symptoms including depression and anxiety. He receives help in multiple IADLs. Clinical Impressions: Mr. San's current level of functioning is consistent with mild dementia.Etiology is likely mixed Parkinson's disease and severe [...] disease often cooccurs with other degenerative conditions andthis cannot be ruled out. Neurobehavioral symptoms are likely mostly secondary to Parkinson's/cerebrovascular disease. Diagnostic Impressions: Mild Dementia Recommendations: Given his cognitive difficulties, Mr. San will continue to need help with daily activities. Loren need help from his family to make [...] severity of his cognitive impairment. If he doesnot want to discontinue driving, then a repeat driving evaluation may be necessary. Individuals with dementia usually benefit from a consistent routine. Regular physical activity suchas walking or low impact exercises, enjoyable structured [...] impressions, and recommendations were discussed with Mr. San and his family. We had a long discussion and all questions were answered. They were encouragedto contact me if they have any questions in the future or if further follow-up is needed. Thank you for the opportunity to participate in the care of Mr. San. Please contact me if you have any questions about the evaluation ([phone]). Nick Ennis, PhD Clinical Neuropsychologist Neurobehavioral status exam/clinical interview by neuropsychologist ([id number]) = 1 hour Neuropsychological evaluation services by neuropsychologist ([id number]) = 4 hours Neuropsychological test administration/scoring by neuropsychologist ([id number]) = 30 minutes Neuropsychological test administration/scoring by deep submergence vehicle crewmember ([id number]) = 180 minutes documented in this encounterMer[facility]07-29-2025 Instructions* Patient Instructions* Caroline Frias APRN.[facility] - 05/02/2025 2:42 PM EDT Images from the original note were not included. [facility] Pre[facility]Anesthesia [facility]ation [facility] PATIENT PREOPERATIVE INSTRUCTIONS Bekah Ayala* has scheduled you for your procedure at this surgery center: [facility]: [phone] --[address] [place] [address]. On your scheduled day of surgery, please report to Patient Registration, ground floor Please read below carefully for your personalized instructions. Arrival Time for Surgery: - The Surgery Center or hospital where you are having surgery will call the afternoon before surgery (or Thursday for Thursday surgery) with a scheduled arrival time. - If you have not heard by 4 pm, please contact the surgery center above. Dietary Restrictions: - No solid food after midnight. - You may have 12 ounces of clear liquids (water, clear juices such as apple juice or gatorade, carbonated beverages, clear tea, black coffee, jello) until 2 hours before scheduled arrival at facility. - Do not drink any alcohol after midnight the night before your surgery. - no milk/creamer or other additives like honey - no pulp juices Medications: Pre-Surgery Med Instructions Medication Instructions mupirocin (BACTROBAN) 2 % ointment Apply 1/2 inch of the mupirocin ointment with a Q-tip to both nostrils in the morning and afternoon for 5 consecutive days before surgery. If you are scheduled for a pre-op Covid-19 test, please do not apply mupirocin the morning of your test. You may apply it right after the test instead. trospium (SANCTURA) 20 mg tablet Do not take the day of surgery QUEtiapine (SEROQUEL) 25 mg tablet If you normally take this medication in the morning, take the morning of surgery. donepezil (ARICEPT) 10 mg tablet Do not take the day of surgery atorvastatin (LIPITOR) 20 mg tablet If you normally take this medication in the morning, take the morning of surgery. dapagliflozin propanediol (FARXIGA) 10 mg tablet Hold 3 days before surgery. Last dose 05/20. carbidopa-levodopa (SINEMET 25-100) 25-100 mg per tablet If you normally take this medication in the morning, take the morning of surgery. acetaminophen (TYLENOL) 500 mg tablet Continue as needed pantoprazole DR (PROTONIX) 40 mg tablet If you normally take this medication in the morning, take the morning of surgery. senna-docusate (SENNA-S) 8.6-50 mg per tablet Do not take the day of surgery lisinopril (ZESTRIL) 10 mg tablet Do not take the day of surgery polyethylene glycol 3350 17 gram packet Do not take the day of surgery spironolactone (ALDACTONE) 25 mg tablet Do not take the day of surgery aspirin 81 mg cap If you normally take this medication in the morning, take the morning of surgery. cloNIDine HCl (CATAPRES) 0.2 mg tablet If you normally take this medication in the morning, take the morning of surgery. citalopram (CELEXA) 40 mg tablet If you normally take this medication in the morning, take the morning of surgery. If you are currently using a seqb-wov-stzh injectable or oral medication for diabetes or weight loss such as Dulaglutide (Trulicity), Exenatide (Byetta, Bydureon), Liraglutide (Victoza, Saxenda), Semaglutide (Ozempic, Wegovy, Rybelsus), or Tirzepatide (Mounjaro), the medicine should be stopped at least 7 days before surgery. These medicines can cause food to remain in your stomach for a very longtime and increase the risks from surgery and anesthesia. Not stopping the medication for a long enough time may result in your surgery being rescheduled. If you take any medications for erectile dysfunction-Cialis (Tadalafil), Levitra, Staxyn (Vardenafil) Viagra (Sildenenafil please do not take these for 48 hours before surgery. If you start any new medications after today's visit, please contact the surgeon's office. Blood Thinning Medications: - Stop NSAIDS (Ibuprofen, Advil, Aleve, Motrin, Celebrex, Mobic, etc.) 7 days before surgery, as directed by your surgeon. - Stop herbal supplements 7 days before surgery. - You may take Tylenol (Acetaminophen) or any of your pain medications that do not contain aspirin or NSAIDS as needed. Important Reminders: - If you use CPAP/BIPAP, bring the machine with you to the surgery center. - If you are prescribed inhalers for breathing, continue using them. - Please be sure to brush your teeth and you can use mouth wash or rinse your mouth if dry. - Candy, mints, and tobacco products are NOT permitted the morning of surgery. - Hearing aids, dentures and glasses may be worn the morning of surgery. - If you have dentures or partials, please have a case to place them in or leave at home day of surgery. - NO jewelry, body piercings, makeup, hairpins or contacts are to be worn the day of surgery. If you develop symptoms such as a fever, cold, or flu, or have other changes to your health within TWO DAYS of scheduled surgery or the morning of surgery, please contact the surgery center above. Personal Belongings: -Please have photo ID and insurance cards. -If you do not have a copy of advance directives on file with us, please bring a copy with you on the day of surgery. - Leave ALL valuables and money at home or with family members. Please be aware that emergency situations arise, which may delay or change your surgical time. If this happens, we will notify you as soon as possible and regret any inconvenience. If you already have an Advance Directive, please fax a copy to [phone] or email to for it to be added to your chart. If you do not have an Advance Directive, you can find the appropriate form and more information at [email or web address]. We recommend that youcomplete the Advance Directive form found on the website and bring it with you the day of your surgery. It can be witnessed and scanned into your chart that day. Caroline Frias APRN.CNP documented in this encounterMer[facility]07-29-[facility]25 History and physical note * Caroline Frias APRN.CNP - 05/02/2025 2:30 PM EDT Images from the original note were not included. [facility] Pre-Anesthesia Consultation [facility] [...] - Reviewed Cardiology notes from Dr. Jensen ([facility]) dated April 2024; echo showed EF [...] 3 months prior showed no evidence of ischemiaor reduced EF. - Will notify anesthesia team [...] BMI less than or equal to 35 kg/m^2 Does not have a large neck STOP-Bang Score: 4 I - PHYSICAL EVALUATION AIRWAY Patient intubated: No. Tracheostomy tube not present Mallampati: IV. TM distance: >3 FB. Neck ROM: full ROM without neurological symptoms. Mouth opening: adequate. Short neck: no. Thick neck: no Landa present: yes Microretrognathia/Micronagthia/Recessed Chin: No DENTAL Dental findings: teeth intact. II - ANESTHESIA PLAN Anesthetic plan additional comments: *PACC/TCI - anesthesia choice. Beta Mikala Monitoring Plan Post Procedure Analgesic Plan Prepared for Surgery: optimally prepared for surgery, pending [see comment]. Labs pending EKG done, noted prior LBBB, but had testing done prior Asymptomatic Continue ASA CONSULTS: Patient does not require consults for optimization at this time Planned Anesthetic: anesthesia choice The Following Tests/Procedures [...] This should be scheduled to be collected noearlier than 29 days before your scheduled procedure. If you receive blood products (red blood cells, platelets, plasma, cryoprecipitate) at any point before your procedure or are a female and become, please inform your provider. This test will be canceled, and a standard type and screen will need to be ordered to be collected within 3 days of your procedure. [facility] Surgery or Procedure:: Hindu Status of surgery/procedure:: Scheduled Date of surgery/procedure:: 05/24/2025 REASON FOR VISIT: Nick San is a 65 year old male who [...] data. CHIEF COMPLAINT: pre op HPI: Nick San is a 65-year-old male with a history of chronic lower back pain, Parkinson's disease, and cognitive impairment, presenting for preoperative evaluation prior to lumbar spine surgery. 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 He denies any specific injury that initiated the pain. Currently, he rates the pain as a 7/10. He also experiences intermittent numbness in his knees and denies any recent falls. He uses a canefor ambulation and lives in a single-story home, avoiding stairs due to mobility issues. Recording using ambient bttn software for draft documentation of the visit was discussed with the patient/authorized installation service representative; all questions welcomed and answered. Patient/authorized installation service representative agreed to proceed REVIEW OF SYSTEMS: General: No weight loss, malaise or fevers. Neurological: Positive for: Parkinson's disease. Negative for: FINANCIAL WELLNESS COACH tumor, dementia, headaches, impaired sensorium, peripheral neuropathy, [...] congenital heart defect, DVT/PE, recent GA, murmur/valvular heartdisease, PTCA, PVD, open heart surgery and valve [...] 2 tablets by mouth three times a day.Yes acetaminophen (TYLENOL) 500 mg tablet Take 2 tablets by mouth every [address]. [address] (PROTONIX) 40 mg tablet Take 1 tablet by mouth two times a day before meals at 6 amand 4 pm. Yes senna-docusate (SENNA-S) 8.6-50 mg [...] Head/Neck W No IV access, insert saline lockprior to the sedation, infusion, injection for imaging [...] Positive for abnormal gait and limb weakness. Limbweakness located left LE and right LE. PAIN ASSESSMENT: Pain Pain Level: 7 Pain Location: Back (radiates down bilateral legs) Description: Aching, Radiating Duration Units: Years Frequency: Continuous VITALS: BP 113/67 Pulse 68 Temp (Src) 97.8 (Temporal) Resp 20 Ht 5' 8.5 (1.74m) Wt 201 lb 4.5 oz(91.3kg) SpO2 97% BMI 30.16 kg/(m^2). Diagnostic tests reviewed for today's visit: Lab [...] 406 QTC Calculation (Bazett) 471 Calculated P [place] 25 Calculated R [place] -46 Calculated T [place] 95 Impression NORMAL SINUS RHYTHM LEFT AXIS DEVIATION LEFT BUNDLE BRANCH BLOCK MINIMAL VOLTAGE CRITERIA FOR LVH, MAY BE NORMAL VARIANT ( Outing product ) CANNOT RULE OUT ANTERIOR INFARCT (CITED ON OR BEFORE 08-Jul-2024) ABNORMAL ECG WHEN COMPARED WITH ECG OF 08-Jul-2024 22:59, NO SIGNIFICANT CHANGE WAS FOUND Confirmed by MD BG, [facility] ([id number]) on 07/12/2024 8:57:41 PM Recent Results (from the past 01944 hours) ECHO Collection Time: 04/21/24 2:20 PM Impression CONCLUSIONS: - Exam indication: Pre-op; CHF - The left ventricle is normal in size. There is mild concentric left ventricular hypertrophy. Left ventricular systolic function is normal. EF = 54 5% (2D biplane) Grade I left ventricular [...] and voices comprehension and compliance. SIGNATURE: Caroline Frias APRN.CNP PATIENT NAME: Nick San DATE: May 02, 2025 TIME: 2:30 PM PAGER/CONTACT #: [facility]07-29-[facility] History and physical note* Caroline FriasGLEN - 05/02/2025 2:30 PM EDT Images from the original note were not included. [facility] Pre-Anesthesia Consultation Clinic [...] - Reviewed Cardiology notes from Dr. Jensen ([facility]) dated April 2024; echo showed EF [...] 3 months prior showed no evidence of ischemiaor reduced EF. - Will notify anesthesia team [...] BMI less than or equal to 35 kg/m^2 Does not have a large neck STOP-Bang Score: 4 I - PHYSICAL EVALUATION AIRWAY Patient intubated: No. Tracheostomy tube not present Mallampati: IV. TM distance: >3 FB. Neck ROM: full ROM without neurological symptoms. Mouth opening: adequate. Short neck: no. Thick neck: no Landa present: yes Microretrognathia/Micronagthia/Recessed Chin: No DENTAL Dental findings: teeth intact. II - ANESTHESIA PLAN Anesthetic plan additional comments: *PACC/TCI - anesthesia choice. Beta Mikala Monitoring Plan Post Procedure Analgesic Plan Prepared for Surgery: optimally prepared for surgery, pending [see comment]. Labs pending EKG done, noted prior LBBB, but had testing done prior Asymptomatic Continue ASA CONSULTS: Patient does not require consults for optimization at this time Planned Anesthetic: anesthesia choice The Following Tests/Procedures [...] This should be scheduled to be collected noearlier than 29 days before your scheduled procedure. If you receive blood products (red blood cells, platelets, plasma, cryoprecipitate) at any point before your procedure or are a female and become, please inform your provider. This test will be canceled, and a standard type and screen will need to be ordered to be collected within 3 days of your procedure. [facility] or Procedure:: Hindu Status of surgery/procedure:: Scheduled Date of surgery/procedure:: 05/24/2025 REASON FOR VISIT: Nick San is a 65 year old male who [...] data. CHIEF COMPLAINT: pre op HPI: Nick San is a 65-year-old male with a history of chronic lower back pain, Parkinson's disease, and cognitive impairment, presenting for preoperative evaluation prior to lumbar spine surgery. 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 He denies any specific injury that initiated the pain. Currently, he rates the pain as a 7/10. He also experiences intermittent numbness in his knees and denies any recent falls. He uses a canefor ambulation and lives in a single-story home, avoiding stairs due to mobility issues. Recording using BasharJobs software for draft documentation of the visit was discussed with the patient/authorized installation service representative; all questions welcomed and answered. Patient/authorized installation service representative agreed to proceed REVIEW OF SYSTEMS: General: No weight loss, malaise or fevers. Neurological: Positive for: Parkinson's disease. Negative for: FINANCIAL WELLNESS COACH tumor, dementia, headaches, impaired sensorium, peripheral neuropathy, [...] congenital heart defect, DVT/PE, recent GA, murmur/valvular heartdisease, PTCA, PVD, open heart surgery and valve [...] 2 tablets by mouth three times a day.Yes acetaminophen (TYLENOL) 500 mg tablet Take 2 tablets by mouth every [address]. [address] (PROTONIX) 40 mg tablet Take 1 tablet by mouth two times a day before meals at 6 amand 4 pm. Yes senna-docusate (SENNA-S) 8.6-50 mg [...] Head/Neck W No IV access, insert saline lockprior to the sedation, infusion, injection for imaging [...] Positive for abnormal gait and limb weakness. Limbweakness located left LE and right LE. PAIN ASSESSMENT: Pain Pain Level: 7 Pain Location: Back (radiates down bilateral legs) Description: Aching, Radiating Duration Units: Years Frequency: Continuous VITALS: BP 113/67 Pulse 68 Temp (Src) 97.8 (Temporal) Resp 20 Ht 5' 8.5 (1.74m) Wt 201 lb 4.5 oz(91.3kg) SpO2 97% BMI 30.16 kg/(m^2). Diagnostic tests reviewed for today's visit: Lab [...] 406 QTC Calculation (Bazett) 471 Calculated P [place] 25 Calculated R [place] -46 Calculated T [place] 95 Impression NORMAL SINUS RHYTHM LEFT AXIS DEVIATION LEFT BUNDLE BRANCH BLOCK MINIMAL VOLTAGE CRITERIA FOR LVH, MAY BE NORMAL VARIANT ( Brady product ) CANNOT RULE OUT ANTERIOR INFARCT (CITED ON OR BEFORE 08-Jul-2024) ABNORMAL ECG WHEN COMPARED WITH ECG OF 08-Jul-2024 22:59, NO SIGNIFICANT CHANGE WAS FOUND Confirmed by MD BG, DEISY ([id number]) on 07/12/2024 8:57:41 PM Recent Results (from the past 70231 hours) ECHO Collection Time: 04/21/24 2:20 PM Impression CONCLUSIONS: - Exam indication: Pre-op; CHF - The left ventricle is normal in size. There is mild concentric left ventricular hypertrophy. Left ventricular systolic function is normal. EF = 54 5% (2D biplane) Grade I left ventricular [...] and voices comprehension and compliance. SIGNATURE: Caroline Frias APRN.CNP PATIENT NAME: Nick San DATE: May 02, 2025 TIME: 2:30 PM PAGER/CONTACT #: documented in this encounterMer[facility]07-[facility]-2025 NoteHNO ID: [id number] Author: CORETTA SUTTON RN Service: ? Author Type: Registered Nurse Type: Progress Notes Filed: 05/02/2025 13:58 Note Text: Neuro SPINE CARE COORDINATION PRE-OP VISIT Met with patient AND family in clinic for pre op education. Given both written and verbal instructions re : Skin prep, wound care, pain management and post op restrictions. Provided to patient: [facility] Surgery Guide, skin prep supplies, Spine [...] : Post -op Support packet provided Coretta Sutton [facility]07-29-2025 History of Present illness Narrative* Coretta Sutton RN - 05/02/2025 1:57 PM EDT Neuro SPINE CARE COORDINATION PRE-OP VISIT Met with patient & family in clinic for pre op education. Given both written and verbal instructions re : Skin prep, wound care, pain management and post op restrictions. Provided to patient: [facility] Surgery Guide, skin prep supplies, Spine [...] : Post -op Support packet provided Coretta Sutton RN * Valorie Ayala MD - 05/02/2025 12:38 PM EDT Images from the original note were not included. SPINE SURGERY NEW PATIENT PCP: Aga Benitez MD REFERRING PROVIDER: Tammi Garcia [address] [facility] [id number] Subjective Nick San is a pleasant 65-year-old male with a [...] since age 16 and has previously sought child care development specialist, which provided temporary relief. He has not [...] times a day before meals at 6 amand 4 pm. senna-docusate (SENNA-S) 8.6-50 mg per [...] Head/Neck W No IV access, insert saline lockprior to the sedation, infusion, injection for imaging [...] BULK: Normal and symmetrical in the upper & lower extremities. MUSCLE TONE: Normal. MOTOR: 5/5 [...] the liver and left kidney on the turbo generator oiler images, likely representing cysts. Alignment: Again noted [...] of lumbar region with neurogenic claudication Nick San is a pleasant 65-year-old male with a [...] since age 16 and has previously sought child care development specialist, which provided temporary relief. He has not [...] a good option. Discussed in detail about L3,L4 laminectomy, decompression of L3-4, L4-5 lumbar canal [...] fusion surgery in the future. All their qu estions were answered Nick San is clinically indicated and wishes to pursue 3, L4 laminectomy, decompression of L3-4, L4-5 lumbar canal stenosis and decompression of synovial cyst with bilateral root foraminotomy The risks, benefits, and anticipated outcomes of the procedure/treatment/test, the alternatives to the procedure/treatment/test and their risks and benefits, and the roles and tasks of the personnel to be involved were discussed with the patient or the patient s personal installation service representative. The patient has elected to schedule surgery at this time or intends to call the office with a surgical date. Shared decision making occurred while obtaining informed consent. The majority of the visit was spent counseling and/or coordinating care for the patient. The patient was counseled regarding lower back pain, right leg pain, right leg weakness, knee buckling, lumbarcanal stenosis, epidural lipomatosis, lumbar laminectomy, lumbar foraminotomy, memory disturbance, Parkinson's, back pain, outcome of surgical intervention, risks of surgery, epidural injection, membrane stabilizers. Total face to face time was 45 minutes. documented in this encounterMercer [facility]07-29-2025 Note* Addendum Note - Valorie Ayala MD - 05/02/2025 1:52 PM EDTAddended by: VALORIE AYALA on: 05/02/2025 01:52 PM Modules accepted: Orders [facility]07-29-2025 Miscellaneous Notes* Addendum Note - Valorie Ayala MD - 05/02/2025 1:52 PM EDTAddended by: VALORIE AYALA on: 05/02/2025 01:52 PM Modules accepted: Orders documented in this encounterMercer County Community Hospital07-29-2025 NoteHNO ID: [id number] Author: VALORIE AYALA MD Service: ? Author Type: Physician Type: Progress Notes Filed: 05/02/2025 13:47 Note Text: SPINE SURGERY NEW PATIENT PCP: Aga Benitez MD REFERRING PROVIDER: Tammi Garcia [address] [facility] [address] Subjective Nick San is a pleasant 65-year-old male with a [...] since age 16 and has previously sought child care development specialist, which provided temporary relief. He has not [...] times a day. acetaminophen (TYLENOL) 500 mg table (more content not included)...[facility] [id number] NoteHNO ID: [id number] Author: NICK ENNIS, PhD Service: ? Author Type: Psychologist Type: Progress Notes Filed: 05/18/2025 11:11 Note Text: [facility] Neuropsychology Consultation Name: Nick San Date of : 1960 Age: [age] year old Date of Evaluation: May 01, 2025 Mr. San was seen today for a clinical interview and neuropsychological testing. Follow up visit to discuss the results of the evaluation currently scheduled for 05/23/25 at 2:00 pm. Full report to follow. Nick Ennis, [facility]07-28-2025 History of Present illness Narrative* Nick Ennis, PhD - 05/01/2025 9:02 AM EDT [facility] Neuropsychology Consultation Name: Nick San Date of : 1960 Age: [age] year old Date of Evaluation: May 01, 2025 Mr. San was seen today for a clinical interview and neuropsychological testing. Follow up visit to discuss the results of the evaluation currently scheduled for 05/23/25 at 2:00 pm. Full report to follow. Nick Ennis, documented in this encounterMercer County [facility] Hospital07-25-2025 Telephone encounter Note * Telephone Encounter - Joann Sherman - 04/28/2025 1:46 PM EDT Placed a reminder call for Neuropsychological testing. Talked to the patient; they confirmed appointment. [facility]07-25-2025 Miscellaneous Notes* Telephone Encounter - Joann Sherman - 04/28/2025 1:46 PM EDT Placed a reminder call for Neuropsychological testing. Talked to the patient; they confirmed appointment. documented in this encounterMercer [facility]07-23-2025 Telephone encounter Note * Telephone Encounter - Miranda Del Rio MD - 04/26/2025 4:53 PM EDT It seems like we should use quetiapine in place of trazodone, its a medication for hallucinations /delirium / sleep. There is a boxed warning about its use related to slightly higher rate of mortality, but when patients are having this much symptoms I think its the best next step. If that sounds OK I will send in for quetiapine 25 mg and can cross titrate as follows: - For 4 days take 1/2 pill of quetiapine and 1/2 pill trazodone at bedtime - Then take 1 full quetiapine pill at bedtime thereafter If behavior / hallucinations / agitation are severe and acutely different it would not be wrong to go to the hospital for evaluation to make sure there is no illness or other medical condition and ifneeded could be seen psychiatry for help. I would hold off on starting the donepezil while making this change I'm going to message them with this info but its a bit much, if you wouldn't mind contacting them to go over it as well. Thanks [facility]07-23-2025 Miscellaneous Notes* Telephone Encounter - Miranda Del Rio MD - 04/26/2025 4:53 PM EDT It seems like we should use quetiapine in place of trazodone, its a medication for hallucinations /delirium / sleep. There is a boxed warning about its use related to slightly higher rate of mortality, but when patients are having this much symptoms I think its the best next step. If that sounds OK I will send in for quetiapine 25 mg and can cross titrate as follows: - For 4 days take 1/2 pill of quetiapine and 1/2 pill trazodone at bedtime - Then take 1 full quetiapine pill at bedtime thereafter If behavior / hallucinations / agitation are severe and acutely different it would not be wrong to go to the hospital for evaluation to make sure there is no illness or other medical condition and ifneeded could be seen psychiatry for help. I would hold off on starting the donepezil while making this change I'm going to message them with this info but its a bit much, if you wouldn't mind contacting them to go over it as well. Thanks * Telephone Encounter - Moraima Tovar RN - 04/25/2025 10:23 AM EDT Patient's family giving update on his behavior. He keeps telling them he is dying. States if he is not sobbing, he is wired, confused, or anxious. Sleeps about 3-4 hours until he finally crashes and sleeps 12-14 hours. Asking for advice. Massiel Tovar RN, BSN documented in this encounterMercer County Community Hospital07-23-2025 Instructions* Patient Instructions* Coral Francisco PA-C - 04/26/2025 2:25 PM EDT Schedule in 3 months. documented in this encounterMercer County Community Hospital07-23-2025 NoteHNO ID: [id number] Author: CORAL FRANCISCO PA-C Service: ? Author Type: Physician Car Shagger Type: Progress Notes Filed: 04/26/2025 14:45 Note Text: [facility] MALE PATIENT - HISTORY AND PHYSICAL EXAMINATION PATIENT: Nick San Patient has been identified by name and date of : Yes Recording using BasharJobs software for draft documentation of the visit was discussed with the patient/authorized installation service representative; all questions welcomed and answered. Patient/authorized installation service representative agreed to proceed PCP: Aga Benitez MD CHIEF COMPLAINT: Overactive bladder HISTORY OF PRESENT ILLNESS: Mr. San is a 65 year old male patient [...] with his . - Daughter resides in [place] and visits to assist with medical appointments. - History of working with [employer] for 50 years. REVIEW OF SYSTEMS: PAST [...] discussed with the Patient or Patient's Authorized Conservation Enforcement Officer. As applicable, any other physician, advance practice provider, medical student, or other health professional student that will be observing or involved in the sens (more content not included)...[facility] 04-26-2025 History of Present illness Narrative* Coral Francisco PA-C - 04/26/2025 1:50 PM EDT [facility] MALE PATIENT - HISTORY AND PHYSICAL EXAMINATION PATIENT: Nick San Patient has been identified by name and date of : Yes Recording using BasharJobs software for draft documentation of the visit was discussed with the patient/authorized installation service representative; all questions welcomed and answered. Patient/authorized installation service representative agreed to proceed PCP: Aga Benitez MD CHIEF COMPLAINT: Overactive bladder HISTORY OF PRESENT ILLNESS: Mr. San is a 65 year old male patient [...] with his . - Daughter resides in [place] and visits to assist with medical appointments. - History of working with [employer] for 50 years. REVIEW OF SYSTEMS: PAST [...] discussed with the Patient or Patient's Authorized Conservation Enforcement Officer. Asapplicable, any other physician, advance practice provider, medical student, or other health professional student that will be observing or involved in the sensitive examination for educational or training purposes was discussed with the Patient or Authorized Conservation Enforcement Officer. The Patient or Authorized Conservation Enforcement Officer has agreed to proceed with the sensitive [...] discontinued due to cognitive concerns and recent Alhzeimers diagnosis. - Discussed dietary modifications to reduce [...] . Patient verbalized understanding. Coral Francisco PA-C Location:[place] * Arlin Alcocer LPN - 04/26/2025 1:49 PM EDT Bladder scan obtained 0 ml of urine documented in this encounterMercer County Community Hospital07-23-2025 NoteHNO ID: [id number] Author: ARLIN ALCOCER LPN Service: ? Author Type: LICENSED NURSE Type: Progress Notes Filed: 04/26/2025 14:45 Note Text: Bladder scan obtained 0 ml of urineAv[facility]07-22-2025 Telephone encounter Note* Telephone Encounter - Moraima Tovar RN - 04/25/2025 10:23 AM EDT Patient's family giving update on his behavior. He keeps telling them he is dying. States if he is not sobbing, he is wired, confused, or anxious. Sleeps about 3-4 hours until he finally crashes and sleeps 12-14 hours. Asking for advice. Massiel Tovar RN, BSN [facility] Work Phone: [phone] Telephone encounter Note* Telephone Encounter - Miranda Del Rio MD - 04/10/2025 4:03 PM EDT I was a little confused by the initial message, are they asking for a PET scan and anxiety management? Can you double check what's going on with him, anxiety could be related to levodopa timing whichwe just increased, should make sure anxiety isn't occurring when it kicks in or wears OFF. I think he is taking citalopram 40 mg daily right now so would want to understand how long he's been on thatand if it was helping him. [facility]07-07-2025 Miscellaneous Notes* Telephone Encounter - Miranda Del Rio MD - 04/10/2025 4:03 PM EDT I was a little confused by the initial message, are they asking for a PET scan and anxiety management? Can you double check what's going on with him, anxiety could be related to levodopa timing whichwe just increased, should make sure anxiety isn't occurring when it kicks in or wears OFF. I think he is taking citalopram 40 mg daily right now so would want to understand how long he's been on thatand if it was helping him. * Telephone Encounter - Génesis Sykes - 04/06/2025 4:00 PM EDT Call received for Miranda Del Rio MD regarding Nick San 1960. Caller: Family member: Carmina Patient Identified [...] to help. Last Office Visit: 03/27/2025 Last Distance Health visit: Visit date not found Next scheduled appointment: 06/19/2025 Best number to reach caller: [phone] Best time to reach caller: any Is it OK to leave a detailed voice message? Yes Génesis Sykes documented in this encounterMercer County Community Hospital07-03-2025 Telephone encounter Note * Telephone Encounter - Génesis Sykes - 04/06/2025 4:00 PM EDT Call received for Miranda Del Rio MD regarding Nick San 1960. Caller: Family member: Carmina Patient Identified [...] to help. Last Office Visit: 03/27/2025 Last Distance Health visit: Visit date not found Next scheduled appointment: 06/19/2025 Best number to reach caller: [phone] Best time to reach caller: any Is it OK to leave a detailed voice message? Yes Génesis Sykes [facility]06-23-2025 History of Present illness Narrative* Lida Albarran RT(R) - 03/27/2025 4:00 PM EDT Radiology Service Progress Note PATIENT NAME: Nick San DATE OF SERVICE: March 27, 2025 TIME: 3:53 PM PATIENT IDENTITY VERIFICATION COMPLETED USING TWO (2) IDENTIFIERS: Name and Date of confirmedby patient verbally. FALL SCREENING: Has the patient had 2 falls in the last year or 1 fall with injury or currently using an Ambulatory Assistive Device (Walker, Cane, Wheelchair, Crutches, etc.)? No PATIENT GENDER DATA: Assigned male at PATIENT RELEVANT IMPLANT DATA REVIEWED: Yes PATIENT PRESENTS WITH AN IMPLANTABLE OR ATTACHED CONSTRUCTION SUPERVISOR: No RADIOLOGY DEPARTMENT: MR; Exam(s) Completed: Spine: Lumbar spine. Aromatherapy Administered: No PERIPHERAL IV DATA: Not applicable SIGNED BY: RT Patrice(R) March 27, 2025 3:53 PM documented in this encounterMercer County Community Hospital06-23-2025 NoteHNO ID: [id number] Author: LIDA ALBARRAN RT(R) Service: ? Author Type: Technologist Type: Progress Notes Filed: 03/27/2025 15:54 Note Text: Radiology Service Progress Note PATIENT NAME: Nick San DATE OF SERVICE: March 27, 2025 TIME: [...] PATIENT PRESENTS WITH AN IMPLANTABLE OR ATTACHED CONSTRUCTION SUPERVISOR: No RADIOLOGY DEPARTMENT: MR; Exam(s) Completed: Spine: Lumbar spine. Aromatherapy Administered: No PERIPHERAL IV DATA: Not applicable SIGNED BY: Lida Albarran, (R) March 27, 2025 3:53 [facility]06-23-2025 Instructions* Patient Instructions* Kate Belcher - 03/27/2025 1:23 PM EDT Diabetes Foot Care Instructions When you have [...] it. Apply a bandage and wear a differentpair of shoes. Take Care of Your Toenails Cut toenails after bathing, when they are soft. Cut toenails straight across and smooth with a nail file. Avoid cutting into the corners of toes. Do not cut cuticles. If you have neuropathy (or decreased sensation in your feet) a shade bander should always cut your toenails. Be Careful [...] make sure there are no foreign objects orrough areas. Avoid tight socks. Wear natural-fiber socks [...] Go to your health care provider or shade bander to treat these conditions. documented in this encounterMercer County Community Hospital06-23-2025 NoteHNO ID: [id number] Author: KATE BELCHER, ? Service: ? Author Type: Physician Type: [...] of systems is noncontributory. Objective: Patient presents (more content not included)...[facility]06-23-2025 History of Present illness Narrative* Kate Belcher - 03/27/2025 1:10 PM EDT Last saw pcp: 02/06/25 Subjective: This 65 [...] 10 days then increase to a full pillthereafter donepezil (ARICEPT) 10 mg tablet After on [...] times a day before meals at 6 amand 4 pm. senna-docusate (SENNA-S) 8.6-50 mg per [...] Head/Neck W No IV access, insert saline lockprior to the sedation, infusion, injection for imaging [...] Objective: Patient presents to clinic ambulating in [facility] Constitutional: Pt is a well developed [...] palpation performed. Nails 1-5 b/l are painful, discolored- yellow, thick, crumbly, dystrophic and with subungal debris. Skin is of normal turgor and texture. Hyperkeratosis notedto not present. NO ulcerations, scars, verruca or [...] If pain fails to improve, consider boot. Patientdeclined boot today. 4. Toenails 1-5 b/l debrided in length and thickness. Discussed toenail removal. Needs pvr prior. 5. F/u in 3 months or sooner if problems arise Kate Belcher DPM * Marcell Reynoso RN - 03/27/2025 1:02 PM EDT Patient presents with: Left Foot - Established Patient, Follow Up, Diabetic Foot Check Right Foot - Established Patient, Follow Up, Diabetic Foot Check Patient presents for follow up diabetic foot/nail care. Also due for diabetic foot check. [facility] documented in this encounterMercer County Community Hospital06-23-2025 NoteHNO ID: [id number] Author: MARCELL REYNOSO, JASON Service: ? Author Type: Registered Nurse Type: Progress Notes Filed: 03/27/2025 13:26 Note Text: Patient presents with: Left Foot - Established Patient, Follow Up, Diabetic Foot Check Right Foot - Established Patient, Follow Up, Diabetic Foot Check Patient presents for follow up diabetic foot/nail care. Also due for diabetic foot check. 10/20/24[facility]06-[facility] Instructions* Patient Instructions* Miranda Del Rio MD - 03/27/2025 10:39 AM EDT 1. Compress times of carbidopa/levodopa to 2 [...] 4. To schedule the neuropsych testing call: [facility] Dr. Ennis or Dr. Rinaldi [phone] or [phone] 5. After you have been on the trazodone for a couple weeks, then start donepezil - it is used to try to help improve memory / confusion. For the first month, take 5 mg once a day, then increase to 10mg once a day thereafter. Watch out for diarrhea, decreased appetite, nightmares, or heart rate changes. If you feel sleepy with it you can take it at bedtime, but bedtime dosing may increase risk for nightmares from it. documented in this encounterMercer County Community Hospital06-23-2025 NoteHNO ID: [id number] Author: MIRANDA DEL RIO MD Service: ? Author Type: Physician Type: Progress Notes Filed: 04/16/2025 23:03 Note Text: FOLLOW UP NOTE Subjective Nick San is a 65 year old male who [...] off primidone. I double checked with his college professor who did not feel propranolol currently needed [...] Exam: Mental Status: He is alert. March 19-2024, age 65, tue x, difficulty with sentence repetition, recall is partially impaired. Affect is mildly anxious. Cranial Nerves: Extraocular movements show full and smooth pursuits. No nystagmus. Visual moore are full to confrontation. Facial activation is symmetric. Hearing is intact to conversation. There is mild hypomimia. Ther (more content not included)...[facility]06-23-2025 History of Present illness Narrative* Miranda Del Rio MD - 03/27/2025 9:40 AM EDT FOLLOW UP NOTE Subjective Nick San is a 65 year old male who presents for follow up. Here with his son-in-law Dank. CC: PD Summary of prior care: 04/2024 right-handed male with a history of heart failure, DM, HTN, anxiety /depression and tremor who presents for evaluation of parkinsonism. His examination demonstrates R>L parkinsonism. His presentation is c/w PD. I don't think he needs primidone or propranolol for tremor, rather would be managed with carbidopa/levodopa. Will start by having him taper off primidone.I double checked with his college professor who did not feel propranolol currently needed for his heart health, will taper this off after he is off primidone. Once he is off both medications, he can startcarbidopa/levodopa titrating to 1 pill TID. Discussed side [...] days. Had miralax in the past unclear ifwas tried - Doesn't drink much water - Drinks 3-4 cans of DMD a day (54 mg caffeine per can) - Short term memory isn't great. Daughter notes that he has asked 10 times what they are doing heretoday, thought here for his MRI. Daughter notes gets confused and agitated at times. Daughter noteshas almost type of issues - gets agitated, stays up all night. He will wake up at night and hear people outside. Bad fall at night while awake. Confusion seems to come and go. - Taking Z-quil nightly - On oxybutynin but having dry mouth - Urination is good right now but was Cd/ld 2 pills @ , -020 Current Outpatient Medications Medication Sig Dispense Refill [...] 2 tablets by mouth three times a day.540 tablet 3 acetaminophen (TYLENOL) 500 mg tablet Take 2 tablets by mouth every 8 hours. 60 tablet 0 tamsulosin (FLOMAX) 0.4 mg Take 1 capsule by mouth once daily. [address] (PROTONIX) 40 mg tablet Take 1 tablet by mouth two times a day before meals at 6 amand 4 pm. 60 tablet 0 senna-docusate (SENNA-S) [...] Head/Neck W No IV access, insert saline lockprior to the sedation, infusion, injection for imaging [...] symmetric. Hearing is intact to conversation. There ismild hypomimia. There is mild hypophonia. There is [...] of hands, reduced right arm swing, right handtremor mild during gait DATA REVIEW Actual films/image/tracing reviewed and summarized as follows: MRI L-spine 07/13/23 severe central stenosis at L3-4 Old records reviewed and summarized as follows: A1c 6.4 Reviewed Spine medicine notes ordered MRI L-spine MRI Brain 01/06/24 severe chronic microvascular changes Reviewed referral records from [facility] 1.61 Assessment/Plan ASSESSMENT & PLAN: Nick San is a 65 year old right-handed male [...] as well, don't think EMG would drastically changer fixer though so deferred for now Follow-up: 4 months Risks & Side Effects of Newly Prescribed Medication, Discussed with Patient: YES I spent 40 minutes in the visit, with more than 50% of the total lixe-en-fuve time of the visit in counseling / coordination of care. Miranda Del Rio MD [facility] documented in this encounterMercer [facility]06-10-2025 NoteHNO ID: [id number] Author: TAMMI GARCIA, DO Service: ? Author Type: Physician Type: Progress Notes Filed: 03/19/2025 18:44 Note Text: [facility] [place] [facility] Spine Initial Exam SUBJECTIVE HISTORY OF PRESENT ILLNESS: Nick San is a 65 year old male who [...] An MRI performed two years ago at [facility] revealed findings that led to a [...] Chiropractic Prior spine interventions: TPI 2023 in [place], 4 shots he thinks, no fluoro guidance - didn't help Prior spine surgery: none Previously treated by: -Spine Surgery at [facility] - offered surgery for lumbar spine PMH: Parkinson's T2DM Kidney stone CHF Mild depression on Celexa h/o cancer: none PSH: Left TKA 07/14/2024 See below Social Personal life: Lives with his Exercise: Walking 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 [facility] [place] [facility] [place] [facility] - Medical Spine Initial Exam SUBJECTIVE HISTORY OF PRESENT ILLNESS: Nick San is a 65 year old male who [...] An MRI performed two years ago at [facility] revealed findings that led to a recommendation for surgery, which he declined. The pain is exacerbated by standing for more than five minutes, bending over, and walking. The painis currently 0/10, but can be severe, rating [...] hunched over with walking. He does not endorsenumbness or tingling in the legs. He has difficulty performing daily activities such as shaving andbrushing his teeth due to the pain. 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 senna-docusate (SENNA-S) 8.6-50 mg per [...] Head/Neck W No IV access, insert saline lockprior to the sedation, infusion, injection for imaging [...] lb 11.3 oz) SpO2 97% BMI 28.82 kg/m GENERAL APPEARANCE: Well nourished, well developed, and [...] pain. Has to bend his legs to tryand gain more ROM. Rotation is moderately limited with pain. CERVICAL ROM: Full ROM Without Pain MUSCLE BULK: Normal and symmetrical in the upper & lower extremities. MUSCLE TONE: Normal. MOTOR: 4/5 [...] independently reviewed 07/25/24 CT abd/pelvis wo contrast, [facility] [employer], report: Small stone in each kidney. Small [...] SI joints. 07/13/23 MRI lumbar spine at [facility], images only, report not available: Moderate-severe L3-4 canal stenosis. Mild-moderate L4-5 canal stenosis. ASSESSMENT/PLAN DIAGNOSIS: M48.062 Spinal stenosis of lumbar region with neurogenic claudication (primary encounter diagnosis) M54.50 Lumbar back pain R29.898 Weakness of both lower extremities ASSESSMENT: Nick San is a 65 year old male with PMH of Parkinson's, Left TKA, T2DM, Kidney stone, CHF, Mild depression, presenting with chronic midline low back pain, involves legs diffusely.Severe pain with standing/walking and has to sit [...] this time. New MRI lumbar spine is neededto obtain a spine surgery consultation. PLAN: 1) [...] side effect profile in setting of Parkinson's) -KAL SIGNATURE: Tammi Garcia DO PATIENT NAME: Nick San DATE: March 14, 2025 TIME: 8:36 AM documented in this encounterMercer County Community Hospital06-09-2025 Radiology Diagnostic study note [facility] Imaging Services [address] [place], [place] [address] Foot min 3 Views MR#: [id number] Acct: [id number] Name: NICK SAN Rep #: [id number] : 1960 65 From: Ti Babcock MD PCP: Dr. Amaya No MD Status: REG CLI Study:Foot min 3 Views Date of Exam: 06/29 Exam# [id number] Ordering Dr: St stefany Blas PROCEDURE: ANKLE MIN 3 VIEWS; FOOT MIN 3 VIEWS 03/13/2025 REASON FOR EXAM: PAIN TECHNIQUE: 4 views of the right ankle and three-view right foot (combined dictation). COMPARISON: None. RAD/Foot min 3 Views IMPRESSION: Prominent arterial calcification is noted. Large inferior calcaneal spur and large posterior calcaneal enthesophyte noted. Normal contour of the Achilles tendon is seen. No ankle joint effusion is evident. Mild degenerative changes of the right ankle are most apparent medially. No significant joint narrowing is evident. Of the right foot, mild degenerative changes of the toes are seen, with jemz-rh-nvsondfi degenerative changes of the 1st metatarsophalangeal joint. 1st metatarsal head bunion formation is also seen. No significant hallux valgus is noted. No acute fracture or dislocation is evident. Reading Location: [address] CC: Dr. Amaya No MD; ANU Mccormick ~ Corporate Intern: Signed [facility]06-09-2025 Radiology Diagnostic study note [facility] Imaging Services [address] [place], [place] [id number] Ankle min 3 Views MR#: [id number] Acct: [id number] Name: NICK SAN Rep #: [id number] : 1960 M 65 From: Ti Babcock MD PCP: Dr. Amaya No MD Status: REG CLI Study:Ankle min 3 Views Date of Exam: Exam# [id number] Ordering Dr: St stefany Blas PROCEDURE: ANKLE MIN 3 VIEWS; FOOT MIN 3 VIEWS 03/13/2025 REASON FOR EXAM: PAIN TECHNIQUE: 4 views of the right ankle and three-view right foot (combined dictation). COMPARISON: None. RAD/Ankle min 3 Views IMPRESSION: Prominent arterial calcification is noted. Large inferior calcaneal spur and large posterior calcaneal enthesophyte noted. Normal contour of the Achilles tendon is seen. No ankle joint effusion is evident. Mild degenerative changes of the right ankle are most apparent medially. No significant joint narrowing is evident. Of the right foot, mild degenerative changes of the toes are seen, with rhzq-uu-qmelgdhw degenerative changes of the 1st metatarsophalangeal joint. 1st metatarsal head bunion formation is also seen. No significant hallux valgus is noted. No acute fracture or dislocation is evident. Reading Location: [address] CC: Dr. Amaya No MD; ANU Mccormick ~ Corporate Intern: Signed [facility]06-09-2025 NoteHNO ID: [id number] Author: LUNA HANNON OD Service: ? Author Type: PEDIATRIC REGISTERED NURSE Type: Progress Notes Filed: 03/13/2025 14:33 Note Text: 1. Presbyopia (Primary) 2. Regular astigmatism of both eyes Finalized new spec rx- recommended separate glasses for distance and reading 3. Type 2 diabetes mellitus without retinopathy (HCC) Not dilated today Monitor 4. Combined forms of age-related cataract of both eyes Mild visual significance- monitor Follow-up in 7 months for MARIANNA Hannon, OD March 13, 2025 2:32 [facility]06-09-2025 History of Present illness Narrative* Luna Hannon, OD - 03/13/2025 2:32 PM EDT 1. Presbyopia (Primary) 2. Regular astigmatism of both eyes Finalized new spec rx- recommended separate glasses for distance and reading 3. Type 2 diabetes mellitus without retinopathy (HCC) Not dilated today Monitor 4. Combined forms of age-related cataract of both eyes Mild visual significance- monitor Follow-up in 7 months for MARIANNA Luna Hannon, OD March 13, 2025 2:32 PM documented in this encounterMercer County Community Hospital06-09-2025 NoteHNO ID: [id number] Author: LEON HUYNH, OTR/L Service: ? Author Type: Occupational Therapist Type: [...] assessment without any major incidents. ASSESSMENT: Nick San tolerated today's treatment visit well. PLAN: D/C OT at this time. 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 vehicle on [...] Billing: Total Treatment Time Minutes (timed/untimed) 60 [facility]: Start Time: 1000; Stop Time: 1100 Drivers Follow Up per 60 min (86118): 1:1 time 60 min Total time: 60 minutes NICHOLAS Ames, LDI Handle Assembler Vehicle Modification Technician.[facility]06-09-2025 History of Present illness Narrative* Leon Huynh OTR/L - 03/13/2025 12:53 PM EDT Episode Visit Count: 2 Therapist That Will Accept/Oversee The Plan Of Care: Dania Huynh Start of Care Date: 02/20/25 Onset Date: 01/15/25 Plan of Care Certification Date: 02/20/25 Next Certification Due Date: 02/20/25 REHABILITATION AND SPORTS THERAPY OCCUPATIONAL THERAPY ON-ROAD DRIVING ASSESSMENT SUBJECTIVE: No new complaints OBJECTIVE MEASURES WITH LEVEL OF FUNCTION: Reviewed outcomes of the initial clinical assessment andeducated on plan for this treatment session. ENVIRONMENT: [...] session progressed. Turned into improper milo x 2in the parking lot. Educated on making sure he is turning into the proper milo even in a parking lot. Improved after instruction. SIGNALING: Forgot to signal 1 times. PARKING: satisfactory GENERAL AWARENESS: No deficits noted in this area TREATMENT: On Road Driving Assessment: Completed on the road assessment without any major incidents. ASSESSMENT: Nick San tolerated today's treatment visit well. PLAN: D/C OT at this time. 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 documented in this encounterMercer County Community Hospital05-19-2025 NoteHNO ID: [id number] Author: LEON HUYNH OTR/L Service: ? Author Type: Occupational Therapist Type: [...] ADL AND COMMUNITY MOBILITY EVALUATION SUBJECTIVE: Nick San is a 65 year old male seen [...] and received a medical clearance from the [facility]. 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 He plans to drive day or night, locally mostly with the occasional freeway, and in all weather conditions as needed. 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 State: [place] License/Permit #: [id number] Expires: 02/08/2028 Restrictions: corrective lenses. 5 Yr. Violation HX: seat belt violation 5 Yr. MVA HX: NA Handicap Parking Placard: YES 1. Nicksaida San self report indicates an awareness of: NA 2. Nick San expressed confidence regarding driving at night/decreased light conditions, when driving alone, and local and familiar areas. 3. Nick San expressed concerns regarding driving on the interstate [...] Driving: Right UE: Sufficient Left UE: Sufficient Stationary Equipment Mechanic: Sufficient Right LE: Sufficient Left LE: Sufficient [...] Apparent Diplopia: No complaints Strabismus: No OU Ca (more content not included)...[facility]05-19-2025 History of Present illness Narrative* Leon Huynh OTR/[place] - 02/20/2025 12:11 PM EDT Episode Visit Count: 1 Therapist That Will Accept/Oversee The Plan Of Care: Dania Huynh Start of Care Date: 02/20/25 Onset Date: 01/15/25 Plan of Care Certification Date: 02/20/25 Next Certification Due Date: 02/20/25 Patient Identified by Name and Date of : Yes REHABILITATION AND SPORTS THERAPY OCCUPATIONAL THERAPY INSTRUMENTAL ADL AND COMMUNITY MOBILITY EVALUATION SUBJECTIVE: Nick R Braucher is a 65 year old male seen [...] and received a medical clearance from the [facility]. 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 He plans to drive day or night, locally mostly with the occasional freeway, and in all weather conditions as needed. 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 State: [place] License/Permit #: [id number] Expires: 02/08/2028 Restrictions: corrective lenses. 5 Yr. Violation HX: seat belt violation 5 Yr. MVA HX: NA Handicap Parking Placard: YES 1. Nick San self report indicates an awareness of: NA 2. Nick San expressed confidence regarding driving at night/decreased light conditions, when driving alone, and local and familiar areas. 3. Nick San expressed concerns regarding driving on the interstate [...] Driving: Right UE: Sufficient Left UE: Sufficient Stationary Equipment Mechanic: Sufficient Right LE: Sufficient Left LE: Sufficient [...] benefit from slava colored sunglasses for daytime & yellow nighttime lenses to enhance contrast sensitivity. [...] Recall: WFL @ 5/6 digits Visual Scanning/Attention: [place] Making Part A (sec): 61 sec [place] Making Part B (sec): 273 sec (4 errors) 50th percentile norm for age group: 60-69; Part A: 48 seconds, Part B: 119 seconds Eugenia Clock Drawing Test: Nick R Marlonishmael correctly included 7/8 criteria for this test. He failed to include or correctly place: the numbers equally spaced, or nearly so, from the edge of the hoopa According to The Physician's Guide to Assessing [...] of cognition/decreased education level vs processing . [place] Handle Assembler Simulator: Simple Brake Reaction Time: Average Distance: 53 feet (Normal = 60 feet) Patient utilized right foot pedal operation. Driving Knowledge Road Sign Recognition: Pass 93 % Rules of the Road: Fail 30% Combined: Fail 68% Recommend patient review rules of the road on [email or web address] Education: Education Learning Preferences: Demonstration, Explanation Barriers: Cognitive Limitations Learning/educational needs: Safety, Plan of Care Education Provided: Yes, see treatment interventions for education provided Education Provided To: Patient, Family Education Mode/Type: Demonstration, Explanation/Discussion Response to Education/Teach Back: States/Identifies, Return Demonstration TREATMENT: Evaluation Self-Half-Way Management: 1: Educated on safety throughout the [...] this report indicates the ability of the power truck driver to operate a motor vehicle on this date only. Due to the complex nature of the safe operation of a motor vehicle, and considering the demands of integrating changing environmental conditions, and visual, cognitive, and physical skills, successful completion of this program is not a guarantee of safe driving in the future. ASSESSMENT OF INSTRUMENTAL ADL AND COMMUNITY MOBILITY: Nick San presents with the diagnosisof Parkinson's Disease. This patient presents with impairments [...] Planned: 2 Patient to be see for Self-snf management (35600), Handle Assembler rehab evaluation, Community / Work Reintegration PLAN FOR NEXT VISIT: behind the wheel assessment Patient demonstrates good understanding of plan of care and treatment. The above goals and plan of care were discussed and agreed upon by patient/family. Billing: Total Treatment Time Minutes (timed/untimed) 120 Evaluation - Moderate Complexity (36269) Self Care / Home Management (88292): 1:1 time: 45 minutes (3 units: 38-52 mins) Community /Work Re-integration (99709): 1:1 time: 45 minutes (3 units: 38-52 mins) Session Start Time : 0800 Session Stop Time : 1000 Total time: 120 minutes NICHOLAS Ames, I Handle Assembler Vehicle Modification Technician documented in this encounterMercer County Community Hospital05-07-2025 Radiology Diagnostic study note [facility] Imaging Services [address] [place] [id number] Lumbar Spine 2 or 3 Views MR#: [id number] Acct: [id number] Name: NICK SAN Rep #: [id number] : 1960 M 65 From: Hong Magana MD PCP: Dr. Amaya No MD Status: REG CLI Study:Lumbar Spine 2 or 3 Views Date of Exam: 02/07/25 Exam# [id number] Ordering Dr: Amaya No MD PROCEDURE: LUMBAR SPINE 2 OR 3 VIEWS 2025 REASON FOR EXAM: FALL TECHNIQUE: 2 view(s) of the lumbar spine COMPARISON: 06/15/2023 FINDINGS: No fracture or malalignment. No significant interval change since the prior study. Multilevel spondylosis/discogenic change again seen appears greatest at L4-5 and L5-S1 with similar appearing disc space narrowing and degenerative endplate change. Mildly prominent appearing small bowel loops upper abdomen may represent degree of ileus or possible enteritis not excluded, clinically correlate. RAD/Lumbar Spine 2 or 3 Views IMPRESSION: No fracture or malalignment. No significant interval change since the prior study. Mildly prominent appearing small bowel loops upper abdomen may represent degree of ileus or possible enteritis not excluded, clinically correlate. Reading Location: [id number] CC: Dr. Amaya No MD ~ Corporate Intern: Signed [facility]05-07-2025 Radiology Diagnostic study note [facility] Imaging Services [address] [place] [address] HIP, UNI W/ Pelvis 2-3 Views MR#: [id number] Acct: [id number] Name: NICK SAN Rep #: [id number] : 1960 M 65 From: Araceli Crawley MD PCP: Dr. Amaya No MD Status: REG CLI Study:HIP, UNI W/ Pelvis 2-3 Views Date of Ex am: 02/07/25 Exam# [id number] Ordering Dr: Amaya No MD PROCEDURE: HIP, UNI W/ PELVIS 2-3 VIEWS 2025 REASON FOR EXAM: FELL ABOUT A WEEK AGO, PAIN LEFT HIP TECHNIQUE: Frontal view of the pelvis and additional views of the left hip. COMPARISON: None. FINDINGS: Advanced disc space narrowing seen within the lower lumbar spine. CT a phleboliths seen within the pelvis. Vhhr-nn-tguceiqs narrowing seen within the bilateral hip joints, vhfx-tzadiad-rwaz-right. No fracture or dislocationis seen within the pelvic or bilateral hips. Scattered phleboliths seen within the right pelvis. RAD/HIP, UNI W/ Pelvis 2-3 Views IMPRESSION: No fracture is identified. Reading Location: [place] CC: Dr. Amaya No MD ~ Corporate Intern: Signed [facility]05-06-2025 Evaluation note* Diagnosis Onset Date Resolution Status Admit Date BPH (benign prostatic hyperplasia) acute 2025 8: 31am Essential hypertension acute Ma 2024 8:31am Driving safety issue noneactive 2025 8:31am Immunization declined noneactive 2025 8:31am ARASELI (obstructive sleep apnea) noneac tive 2025 8:31am Systolic heart failure noneactive 2024 8:31am Skin lesions noneactive February 07 8:31am Old cerebrovascular accident (CVA) without late effect noneactive February 8:31am Controlled type 2 diabetes mellitus noneactive 2025 8: 31am Recurrent falls noneactive 2025 8:31am Chronic low back pain withou t sciatica noneactive 2025 8: 31am Mild depression noneactive 2025 8:31am Bilateral knee pain noneactive February 072024 8:31am Parkinson's disease noneactive February 072024 8:31am [facility] Work Phone: 1(784) 198-876205-06-2025 Evaluation note* Diagnosis Onset Date Resolution Status Admit Date BPH (benign prostatic hyperplasia) acute 2025 8: 31am Essential hypertension acute 2024 8:31am Driving safety issue noneactive 2025 8:31am Immunization declined noneactive 2025 8:31am ARASELI (obstructive sleep apnea) noneac tive 2025 8:31am Systolic heart failure noneactive 2024 8:31am Skin lesions noneactive February 07 8:31am Old cerebrovascular accident (CVA) without late effect noneactive February 8:31am Controlled type 2 diabetes mellitus noneactive 2025 8: 31am Recurrent falls noneactive 2025 8:31am Chronic low back pain withou t sciatica noneactive 2025 8: 31am Mild depression noneactive 2025 8:31am Bilateral knee pain noneactive February 072024 8:31am Parkinson's disease noneactive February 072024 8:31am Pain in joint involving righ t ankle and foot acute March 13, 2025 2 :53pm [facility] Work Phone: 1(455) 162-730105-06-2025 Evaluation note* Diagnosis Onset Date Resolution Status Admit Date BPH (benign prostatic hyperplasia) acute 2025 8: 31am Essential hypertension acute 2024 8:31am Driving safety issue noneactive 2025 8:31am Immunization declined noneactive 2025 8:31am ARASELI (obstructive sleep apnea) noneac tive 2025 8:31am Systolic heart failure noneactive Ma y 2024 8:31am Skin lesions noneactive February 07 8:31am Old cerebrovascular accident (CVA) without late effect noneactive February 8:31am Controlled type 2 diabetes mellitus noneactive 2025 8: 31am Recurrent falls noneactive 2025 8:31am Chronic low back pain withou t sciatica noneactive 2025 8: 31am Mild depression noneactive 2025 8:31am Bilateral knee pain noneactive February 072024 8:31am Parkinson's disease noneactive February 072024 8:31am Pain in joint involving righ t ankle and foot acute March 13, 2025 2 :53pm Difficulty walking acute May 26, 2025 2:34pm Generalized weakness acute 2024 2:34pm [facility] Work Phone: 1(729) 443-248005-05-2025 NoteHNO ID: [id number] Author: ALECIA ENAMORADO MD Service: ? Author Type: Physician Type: Progress Notes Filed: 02/06/2025 14:19 Note Text: [facility] Subjective Nick San is a 64 year old male. Patient [...] and will keep follow-up as scheduled. Alecia Enamorado MD Differential Diagnoses - contusion of buttock and upper arm [facility] History of Present illness Narrative* Alecia Enamorado MD - 02/06/2025 1:53 PM EDT [facility] Subjective Nick San is a 64 year old male. Patient presents with: Head Pain Left-side: Fell 3 days ago Patient fell at home about 4 days ago. He does not know why he fell. He does not think he tripped on anything. He denies dizziness or loss of consciousness before or after the fall. He did bruise hisleft buttock and left upper arm. The left buttock has a large bruise which hurts. His left knee hasbeen replaced and hurts at times also. He has painful movement at times but otherwise feels no out of the ordinary pains. Review of Systems Neurological: Positive for tremors (Parkinson's disease). Negative for dizziness, light-headedness,numbness and headaches. Objective BP 130/82 Pulse 89 Temp 36.4 C (97.5 F) (Tympanic) Resp 16 Wt 91.5 kg (201 lb 11.5 oz) SpO2 94% BMI 28.53 kg/m Physical Exam Constitutional: General: He is not [...] does have contusion of the left buttocks andleft triceps there is little concern for fracture based on exam. Patient and his daughter are content with this plan and will keep follow-up as scheduled. Alecia Enamorado MD Differential Diagnoses - contusion of buttock and upper arm Procedures documented in this encounterMer[facility]04-21-2025 NoteHNO ID: [id number] Author: ALECIA ENAMORADO MD Service: ? Author Type: Physician Type: Progress Notes Filed: 01/23/2025 19:24 Note Text: [facility] Subjective Nick San is a 64 year old male. Patient [...] He states his daughter who lives in [place] is in charge of his medical care. [...] put it on the floor. Score 1 (more content not included)...[facility] History of Present illness Narrative* Alecia Enamorado MD - 01/23/2025 6:01 PM EDT [facility] Subjective Nick San is a 64 year old male. Patient presents with: Nausea & Vomiting: Nausea, vomiting, bodyaches x 10 days [...] has generalized weakness. He states he almost fellover a wild mushroom hunting this weekend. He denies diarrhea, cough, headache, vision change, sorethroat, shortness of breath, chest pain, palpitations, wheezing, dysuria, frequency, urgency. Patient lives with his . He states his daughter who lives in [place] is in charge of his medical care. [...] Objective BP 132/82 Pulse 99 Temp 36.8 C (98.3 F) (Tympanic) Resp 16 Wt 92.2 kg (203 lb 4.2 oz) SpO2 95% BMI 28.75 kg/m Last 4 Encounter Wt Readings: Date: Wt: [...] it says. Score 1 point only if he/sheactually closes his/her eyes. Max score=1 Patient's score=1 Writing: Give the patient a blank piece of paper and ask him/her to write a sentence. Do not dictate a sentence; it is to be written spontaneously. It must contain a subject and verb and be sensible.Correct grammar and punctuation are not necessary. Max [...] from Folstein et al.1 and Rashad and Carmenstein2. (c) 1974, 1997 [employer] Used withpermission. References: 1. Folstein MF, Folstein SE, Sita NV. Mini-Mental State: a practical method for grading the cognitive state of patients for the clinician. J Psychiatr Res. 1975; 12:189-198. 2. JR Rashad, Logan TINEO, Mini-Mental State Examination (MMSE). Psychopharm Bull. 1988;24:689-692. 3. Chriss De AndaT, García FJ, Go RD, Michele A, Atiya F. Neuropsychological function in Alzheimer's disease: pattern of impairment and rates of progression. Arch Neurol. 1988;45:263-268. 4. Ilya JA, Yomi B,Samir SEddieP, Jonna CAVAZOS. Predictors of cognitive and functional progression in patients with probable Alzheimer's disease. Neurology. 1992;42:8228-0330. Latest Ref Rng 01/23/2025 WBC 3.70 - [...] Abs Lymph 1.00 - 4.00 k/uL 2.01 [place]% % 6.8 Abs [place] <0.87 k/uL 0.72 [place]% % 4.1 Abs [...] reliable. She is attempting to come to [place] to help with his care in 2 days. His exam and vitals are benign. He has rapid recall of person, place, and time. He has difficulty primarily with math, spelling, and drawing functions. He was released to follow up with PCP and neurology. His family will take him to the ED if there is concern forincreasing confusion or dangerous behavior in the interim. Alecia Enamorado MD History and Record Review Clinical information obtained from an independent historian. History obtained from or confirmed by:family member. External record(s) reviewed: prior outpatient record. Findings from review of outpatient records: Telephone encounter reporting confusion and dangerous driving today Differential Diagnoses - parkinson's dementia - sepsis is less likely for the following reason(s): normal CBC and vitals Disposition The patient was discharged. Greater than 40 minutes were spent in direct patient care, chart review, and communication with family. Procedures documented in this encounterMercer County Community Hospital03-21-2025 Telephone encounter Note * Telephone Encounter - Grace Cantrell PA-C - 12/23/2024 1:27 PM EDT Covering provider pool. Patient's chart has been reviewed. Refill is appropriate, however, they are due to be seen for an appointment. Please call and schedule patient for a routine follow up with PCP Thank you The following approved medication requests have been transmitted electronically. Requested Prescriptions Pending Prescriptions Disp Refills atorvastatin (LIPITOR) 20 mg tablet [Pharmacy Med Name: Atorvastatin Calcium 20 MG Oral Tablet] 90 tablet 0 Sig: TAKE 1 TABLET BY MOUTH ONCE DAILY AT BEDTIME Grace Cantrell PA-C [facility]03-21-2025 Miscellaneous Notes* Telephone Encounter - Grace Cantrell PA-C - 12/23/2024 1:27 PM EDT Covering provider pool. Patient's chart has been reviewed. Refill is appropriate, however, they are due to be seen for an appointment. Please call and schedule patient for a routine follow up with PCP Thank you The following approved medication requests have been transmitted electronically. Requested Prescriptions Pending Prescriptions Disp Refills atorvastatin (LIPITOR) 20 mg tablet [Pharmacy Med Name: Atorvastatin Calcium 20 MG Oral Tablet] 90 tablet 0 Sig: TAKE 1 TABLET BY MOUTH ONCE DAILY AT BEDTIME Grace Cantrell PA-C * Telephone Encounter - Ashwini Mendoza MA - 12/23/2024 11:08 AM EDT Last OV: 08/08/24 Next OV: Nothing scheduled at this time. Patient's request for medication is as follows: Requested Prescriptions Pending Prescriptions Disp Refills atorvastatin (LIPITOR) 20 mg tablet [Pharmacy Med Name: Atorvastatin Calcium 20 MG Oral Tablet] 90 tablet 0 Sig: TAKE 1 TABLET BY MOUTH ONCE DAILY AT BEDTIME Please approve the above prescription(s) to electronically send to pharmacy. Ashwini Mendoza MA documented in this encounterMercer County Community Hospital03-21-2025 Telephone encounter Note * Telephone Encounter - Ashwini Mendoza MA - 12/23/2024 11:08 AM EDT Last OV: 08/08/24 Next OV: Nothing scheduled at this time. Patient's request for medication is as follows: Requested Prescriptions Pending Prescriptions Disp Refills atorvastatin (LIPITOR) 20 mg tablet [Pharmacy Med Name: Atorvastatin Calcium 20 MG Oral Tablet] 90 tablet 0 Sig: TAKE 1 TABLET BY MOUTH ONCE DAILY AT BEDTIME Please approve the above prescription(s) to electronically send to pharmacy. Ashwini Mendoza MA [facility]01-17-2025 Telephone encounter Note* Telephone Encounter - Avani Landa MA - 10/21/2024 3:47 PM EST Faxed and scanned into chart. Avani Landa MA [facility]01-17-2025 Miscellaneous Notes* Telephone Encounter - Avani Landa MA - 10/21/2024 3:47 PM EST Faxed and scanned into chart. Avani Landa MA * Telephone Encounter - Hilary Suárez MA - 10/20/2024 2:18 PM EST Orders are in office waiting for signature. [id number] documented in this encounterMercer County Community Hospital01-16-2025 Instructions* Patient Instructions* Kate Belcher - 10/20/2024 3:57 PM EST Diabetes Foot Care Instructions When you have [...] it. Apply a bandage and wear a differentpair of shoes. Take Care of Your Toenails Cut toenails after bathing, when they are soft. Cut toenails straight across and smooth with a nail file. Avoid cutting into the corners of toes. Do not cut cuticles. If you have neuropathy (or decreased sensation in your feet) a shade bander should always cut your toenails. Be Careful [...] make sure there are no foreign objects orrough areas. Avoid tight socks. Wear natural-fiber socks [...] Go to your health care provider or shade bander to treat these conditions. documented in this encounterMercer County Community Hospital01-16-2025 NoteHNO ID: [id number] Author: KATE BELCHER, ? Service: ? Author Type: Physician Type: [...] Objective: Patient presents to clinic ambulating [facility] Constitutional: Pt is a well developed 64 year (more content not included)... [facility] History of Present illness Narrative* Kate Belcher - 10/20/2024 3:43 PM EST Images from the original note were not included. Consultation requested by Dr. Bneitez for an opinion regarding foot pain. My [...] times a day before meals at 6 amand 4 pm. senna-docusate (SENNA-S) 8.6-50 mg per [...] Head/Neck W No IV access, insert saline lockprior to the sedation, infusion, injection for imaging [...] Objective: Patient presents to clinic ambulating [facility] Constitutional: Pt is a well developed [...] toes when tested with the 5.07 SWM bilateral.Vibratory sensation is absent at the hallux bilateral. [...] full with knee flexed. No pain or crepitusnoted. STJ, MTJ ROM are full and free of pain or crepitus. Muscle strength is 5/5 for dorsiflexors,plantarflexors, inverters, everters. Digital deformities include none. Assessment: (E11.9) Type 2 diabetes mellitus without complication, without long-term current use of insulin ([facility]) (primary encounter diagnosis) (R09.89) Diminished pulses in [...] performed. Will place patient on antibiotic. Kate Belcher DPM * Dayna Adorno LPN - 10/20/2024 3:38 PM EST AMB ROOMING INTAKE FLOWSHEET DATA Pain Pain Level: 2 Pain Location: Other: See Comment (bilateral feet) Description: Itching Patient presents with: Left Foot - New, Itching, Diabetic Foot Care Right Foot - New, Itching, Diabetic Foot Care Patient states feet are always cold. A1C 2 months ago was 5.6 Dayna Adorno LPN documented in this encounterMercer County Community Hospital01-16-2025 NoteHNO ID: [id number] Author: DAYNA ADORNO LPN Service: ? Author Type: LICENSED NURSE [...] A1C 2 months ago was 5.6 Dayna Adorno LPGuernsey [facility]01-16-[facility]25 Telephone encounter Note* Telephone Encounter - Hilary Suárez MA - 10/20/2024 2:18 PM EST Orders are in office waiting for signature. [id number] [facility]01-10-2025 Telephone encounter Note* Telephone Encounter - Ana Rosa Law MA - 10/14/2024 11:12 AM EST Faxed back. Sent to scanning. Ana Rosa Law MA October 14, 2024 11:13 AM [facility]01-10-2025 Miscellaneous Notes* Telephone Encounter - Ana Rosa Law MA - 10/14/2024 11:12 AM EST Faxed back. Sent to scanning. Ana Rosa Law MA October 14, 2024 11:13 AM * Telephone Encounter - Aga Benitez MD - 10/13/2024 4:42 PM EST Signed and in outbox. Aga Benitez MD * Telephone Encounter - Hilary Suárez MA - 10/13/2024 2:37 PM EST Orders are in office waiting for signature. documented in this encounterMercer County Community Hospital01-09-2025 Telephone encounter Note * Telephone Encounter - Aga Benitez MD - 10/13/2024 4:42 PM EST Signed and in outbox. Aga Benitez MD [facility]01-09-2025 Telephone encounter Note* Telephone Encounter - Hilary Suárez MA - 10/13/2024 2:37 PM EST Orders are in office waiting for signature. [facility]01-07-2025 NoteDate of Procedure 10/11/2024. OCT Macula Interpretation Right Eye Normal without fluid. Left Eye Normal without fluid. Interval Change Right Eye Initial. Left Eye Initial.[id number] NoteHNO ID: [id number] Author: LUNA HANNON OD Service: ? Author Type: PEDIATRIC REGISTERED NURSE Type: Progress Notes Filed: 10/11/2024 09:24 Note Text: 1. Type 2 diabetes mellitus without retinopathy (HCC) Risk of diabetic changes and vision loss can be minimized by tight control of blood sugar, blood pressure, and cholesterol levels. Educated patient to continue care with primary care doctor and/or diamond merchant to maintain optimum levels as they are [...] for MARIANNA or sooner as needed Luna Hannon OD October 11, 2024 9:23 [facility]01-07-2025 History of Present illness Narrative* Luna Hannon, OD - 10/11/2024 9:23 AM EST 1. Type 2 diabetes mellitus without retinopathy (HCC) Risk of diabetic changes and vision loss can be minimized by tight control of blood sugar, blood pressure, and cholesterol levels. Educated patient to continue care with primary care doctor and/or diamond merchant to maintain optimum levels as they are [...] for MARIANNA or sooner as needed Luna Hannon OD October 11, 2024 9:23 AM documented in this encounterMercer County Community Hospital01-07-2025 Instructions* Patient Instructions* Luna Hannon, OD - 10/11/2024 9:21 AM EST Use Systane Complete or Refresh Relieva 2-3 times daily documented in this encounterMercer County Community Hospital01-02-2025 Telephone encounter Note * Telephone Encounter - Coral Stone - 10/06/2024 5:32 PM EST Call from pharmacy requesting refill. Requested Prescriptions Pending Prescriptions Disp Refills dapagliflozin propanediol (FARXIGA) 10 mg tablet 90 tablet 3 Sig: Take 1 tablet by mouth daily with breakfast. Patient last seen 04/29/24 Coral Stone [facility]01-02-2025 Miscellaneous Notes* Telephone Encounter - Coral Stone - 10/06/2024 5:32 PM EST Call from pharmacy requesting refill. Requested Prescriptions Pending Prescriptions Disp Refills dapagliflozin propanediol (FARXIGA) 10 mg tablet 90 tablet 3 Sig: Take 1 tablet by mouth daily with breakfast. Patient last seen 04/29/24 Coral Stone documented in this encounterMercer County Community Hospital12-16-2024 Telephone encounter Note * Telephone Encounter - Aga Benitez MD - 09/19/2024 6:41 PM EST Signed, in outbox. Aga Benitez MD [facility]12-16-2024 Miscellaneous Notes* Telephone Encounter - Aag Benitez MD - 09/19/2024 6:41 PM EST Signed, in outbox. Aga Benitez MD * Telephone Encounter - Hilary Suárez MA - 09/19/2024 9:43 AM EST Orders are in office waiting for signature. [id number] documented in this encounterMercer County Community Hospital12-16-2024 Telephone encounter Note * Telephone Encounter - Hilary Suárez MA - 09/19/2024 9:43 AM EST Orders are in office waiting for signature. [id number] [facility]11-22-2024 Telephone encounter Note* Telephone Encounter - Abilio Stoll - 08/26/2024 1:02 PM EST Lizandro is calling Aga Benitez MD today [...] name and birthdate. Person calling: Lizandro From [facility] [phone] Call patient at: on cell [phone] (home) [phone] (cell) Was an appointment scheduled: No Closing statement: Results or non-symptom based questions: Thank you for calling [facility], your call will be returned within the next business day. Abilio Stoll [facility]11-22-2024 Miscellaneous Notes* Telephone Encounter - Abilio Stoll - 08/26/2024 1:02 PM EST Lizandro is calling Aga Benitez MD today [...] name and birthdate. Person calling: Lizandro From [facility] [phone] Call patient at: on cell [phone] (home) [phone] (cell) Was an appointment scheduled: No Closing statement: Results or non-symptom based questions: Thank you for calling [facility], your call will be returned within the next business day. Abilio Stoll documented in this encounterMercer County Community Hospital11-19-2024 Telephone encounter Note * Telephone Encounter - Socorro Rose LPN - 08/23/2024 3:04 PM EST Called PT and gave verbal order for continuation of PT. Socorro Rose LPN [facility]11-19-2024 Miscellaneous Notes* Telephone Encounter - Socorro Rose LPN - 08/23/2024 3:04 PM EST Called PT and gave verbal order for continuation of PT. Socorro Rose LPN * Telephone Encounter - Aga Benitez MD - 08/22/2024 11:06 AM EST Ok to give verba orders for Nick. Aga Benitez MD * Telephone Encounter - Sara Mohr - 08/19/2024 4:26 PM EST Berkley with [facility] [phone] is calling Aga Benitez MD today to request verbal orders for continuation of PT. Please advise. Patient has been identified by name and birthdate. Duration of symptoms: N/A Person calling: Berkley Mortensen documented in this encounterMercer County Community Hospital11-18-2024 Telephone encounter Note * Telephone Encounter - Aga Benitez MD - 08/22/2024 11:06 AM EST Ok to give verba orders for Nick. Aga Benitez MD [facility]11-15-2024 Telephone encounter Note* Telephone Encounter - Sara Mohr - 08/19/2024 4:26 PM EST Berkley with [facility] [phone] is calling Aga Benitez MD today to request verbal orders for continuation of PT. Please advise. Patient has been identified by name and birthdate. Duration of symptoms: N/A Person calling: Berkley Wasserman Pss [facility]11-04-2024 Instructions* Patient Instructions* Miranda Del Rio MD - 08/08/2024 3:50 PM EST Let's increase the carbidopa/levodopa to 1.5 pills [...] light-headedness, hallucinations, fatigue, or extra movements (dyskinesia). documented in this encounterMercer County Community Hospital11-04-2024 History of Present illness Narrative* Miranda Del Rio MD - 08/08/2024 3:30 PM EST FOLLOW UP NOTE Subjective Nick San is a 64 year old male who presents for follow up. Here with his son-in-law Dank. CC: PD Summary of prior care: 04/2024 right-handed male with a history of heart failure, DM, HTN, anxiety /depression and tremor who presents for evaluation of parkinsonism. His examination demonstrates R>L parkinsonism. His presentation is c/w PD. I don't think he needs primidone or propranolol for tremor, rather would be managed with carbidopa/levodopa. Will start by having him taper off primidone.I double checked with his college professor who did not feel propranolol currently needed for his heart health, will taper this off after he is off primidone. Once he is off both medications, he can startcarbidopa/levodopa titrating to 1 pill TID. Discussed side [...] times a day before meals at 6 amand 4 pm. 60 tablet 0 senna-docusate (SENNA-S) [...] Head/Neck W No IV access, insert saline lockprior to the sedation, infusion, injection for imaging [...] symmetric. Hearing is intact to conversation. There ismild hypomimia. There is mild hypophonia. There is [...] Carla Weir PA TSH 1.61 Assessment/Plan ASSESSMENT & PLAN: Nick San is a 64 year old right-handed male [...] use miralax daily Follow-up: 4 months Risks & Side Effects of Newly Prescribed Medication, Discussed with Patient: YES Miranda Del Rio MD [facility] Neurology documented in this encounterMercer County Community Hospital11-04-2024 NoteHNO ID: [id number] Author: MIRANDA DEL RIO MD Service: ? Author Type: Physician Type: Progress Notes Filed: 08/08/2024 16:03 Note Text: FOLLOW UP NOTE Subjective Nick San is a 64 year old male who [...] off primidone. I double checked with his college professor who did not feel propranolol currently needed [...] hands, reduced right arm swing, has walker tod (more content not included)...[facility] 08-08-2024 Telephone encounter Note* Telephone Encounter - Aga Benitez MD - 08/08/2024 1:46 PM EST Noted. Patient was well during visit today. Thank you, Aga Benitez MD [facility]11-04-2024 Miscellaneous Notes* Telephone Encounter - Aga Beintez MD - 08/08/2024 1:46 PM EST Noted. Patient was well during visit today. Thank you, Aga Benitez MD * Telephone Encounter - Marcell Noguera - 08/08/2024 8:52 AM EST Lizandro RN with [facility]. Pt temp is 99. Pt just finished antibiotic. Urine still looks good. Pt increased fluids. Pt has appt today. Any questions [phone] Patient has been identified by name and birthdate. Duration of symptoms: N/A Was an appointment scheduled: No Closing statement: Results or non-symptom based questions: Thank you for calling [facility], your call will be returned within the next business day. Marcell Mortensen documented in this encounterMercer County Community Hospital11-04-2024 NoteHNO ID: [id number] Author: AGA BENITEZ MD Service: ? Author Type: Physician Type: Progress Notes Filed: 08/08/2024 11:28 Note Text: This note was created using SpumeNewsriter. Subjective Nick San is a 64 year old male. Here [...] his daughter and son-in-law who live in [place]. Review of Systems All other systems reviewed [...] with labs prior for diabetes Aga Benitez [facility]11-04-2024 History of Present illness Narrative* Aga Benitez MD - 08/08/2024 10:38 AM EST This note was created using NoteWriter. Subjective Nick San is a 64 year old male. Here [...] the impression of septic shock secondary to complicatedurinary tract infection Was treated with vancomycin and [...] significantly after PT/OT with walking and currently ambulateswith a walker. He resides with his , but most of his care is coordinated through his daughter and son-in-law who live in [place]. Review of Systems All other systems reviewed and are negative. Objective BP 135/77 Pulse 98 Resp 16 Ht 179.1 cm (5' 10.5) Wt 107 kg (235 lb 14.3 oz) SpO2 98% BMI 33.37 kg/m Physical Exam Vitals and nursing note reviewed. [...] labs prior for diabetes Aga Benitez MD documented in this encounterMercer County Community Hospital11-04-2024 Telephone encounter Note * Telephone Encounter - Marcell Noguera - 08/08/2024 8:52 AM EST Lizandro RN with [facility]. Pt temp is 99. Pt just finished antibiotic. Urine still looks good. Pt increased fluids. Pt has appt today. Any questions [phone] Patient has been identified by name and birthdate. Duration of symptoms: N/A Was an appointment scheduled: No Closing statement: Results or non-symptom based questions: Thank you for calling [facility], your call will be returned within the next business day. Marcell Mortensen [facility]10-29-2024 Telephone encounter Note* Telephone Encounter - Cyndi Olivo - 08/02/2024 10:07 AM EDT I called pt to schedule new urology appointment. Patient's daughter Carmina answered the call and verbalized he has a urologist and she will schedule a visit with that provider. [id number] Miscellaneous Notes* Telephone Encounter - Cyndi Olivo - 08/02/2024 10:07 AM EDT I called pt to schedule new urology appointment. Patient's daughter aCrmina answered the call and verbalized he has a urologist and she will schedule a visit with that provider. Closing encounter * Telephone Encounter - Rohit Holloway RN - 07/27/2024 8:42 AM EDT Currently admitted. * Telephone Encounter - Halima Loco RN - 07/26/2024 10:21 AM EDT Patient currently still admitted * Telephone Encounter - Ernst Hall MD - 07/26/2024 4:33 AM EDT Pt consulted for intermittent hx of gross hematuria. None seen currently inpatient. Will require outpatient f/u and possible cystoscopy documented in this [facility]10-28-2024 Telephone encounter Note* Telephone Encounter - Aga Benitez MD - 08/01/2024 10:10 AM EDT Noted. Thank you! Aga Benitez MD [facility]10-28-2024 Miscellaneous Notes* Telephone Encounter - Aga Benitez MD - 08/01/2024 10:10 AM EDT Noted. Thank you! Aga Benitez MD * Telephone Encounter - Nellie Farr - 07/28/2024 3:29 PM EDT Berkley PT with [facility] is calling Aga Benitez MD today to request and update PCP Update is Evaluation for PT was completed. Requesting PT in home 3 times per week for 4 weeks. Please return call to give VO Patient has been identified by name and birthdate. Duration of symptoms: N/A Person calling: PT Call Berkley [phone] Was an appointment scheduled: No Closing statement: Results or non-symptom based questions: Thank you for calling [facility], your call will be returned within the next business day. Nellie Farr [facility] Telephone encounter Note * Telephone Encounter - Ashwini Boyer RN - 07/29/2024 1:45 PM EDT Called Adela CAROLINA given for below services [facility] Work Phone: [phone] 675-487610-25-2024 Miscellaneous Notes* Telephone Encounter - Ashwini Boyer RN - 07/29/2024 1:45 PM EDT Called Adela FIGUEROA given for below services * Telephone Encounter - Aga Benitez MD - 07/29/2024 12:26 AM EDT Ok to [address] verbal orders for SN, PT and OT. Aga Benitez MD * Telephone Encounter - Sara Mohr - 07/28/2024 10:42 AM EDT Adela with [facility] [phone] is calling Aga Benitez MD today to request verbal orders for SN, PT and OT. Patient has been identified by name and birthdate. Duration of symptoms: N/A Person calling: Debbi Mortensen documented [facility] Telephone encounter Note * Telephone Encounter - Aga Benitez MD - 07/29/2024 12:26 AM EDT Ok to place verbal orders for SN, PT and OT. Aga Benitez MD [facility]10-24-2024 Telephone encounter Note* Telephone Encounter - Nellie Farr - 07/28/2024 3:29 PM EDT Berkley [facility]ERRER[facility] with [facility] is calling Aga Benitez MD today to request and update PCP Update is Evaluation for PT was completed. Requesting PT in home 3 times per week for 4 weeks. Please return call to give VO Patient has been identified by name and birthdate. Duration of symptoms: N/A Person calling: PT Call Berkley [phone] Was an appointment scheduled: No Closing statement: Results or non-symptom based questions: Thank you for calling [facility], your call will be returned within the next business day. Nellie Farr [facility]10-24-2024 Telephone encounter Note* Telephone Encounter - Sara Mohr - 07/28/2024 10:42 AM EDT Adela with [facility] [phone] is calling Aga Benitez MD today to request verbal orders for SN, PT and OT. Patient has been identified by name and birthdate. Duration of symptoms: N/A Person calling: Debbi Mortensen [facility]10-23-2024 Nurse Note* Gianan Fishman RN - 07/27/2024 4:41 PM EDT AVS instructions given. IV's removed. summer analyst removed, cleaned and placed at corresponding location at nurses station. Prescribed medications delivered to patient bedside via meds to beds. Patient awaiting transportation via EMS to home scheduled for flower buncher or picker at 1700. [id number] Nurse Note* Gianna Fishman RN - 07/27/2024 4:41 PM EDT AVS instructions given. IV's removed. summer analyst removed, cleaned and placed at corresponding location at nurses station. Prescribed medications delivered to patient bedside via meds to beds. Patient awaiting transportation via EMS to home scheduled for flower buncher or picker at 1700. * Анна Camarena RN - 07/27/2024 8:25 AM EDT Wound Care consulted for Pressure Injury Prevention. Pt's Santosh= 19, pt is no longer at risk. Skin Care Precaution order set in place. PT consult in place. Will continue to follow peripherally.Please voicera or secure chat message with any questions. Hermila Camarena RN, CN documented in this [facility]10-23-2024 NoteOCCUPATIONAL THERAPY [facility] Initial Evaluation Name/MRN: Nick San ([id number]) Evaluation Date: 07/27/2024 Date of : 1960 Admission Date: 07/25/2024 12:25 PM Age: 64 y.o. [facility]: [facility] Discharge Recommendation: Home with Home health OT, Home with assist PRN Equipment Needed: No Assessment IMPRESSION: 64 y/o male admitted for blood in urine. Pt with recent L TKA 06/22/24 at [facility] and [facility] Parkinson's with dyskinesia. Pt reports was [...] (hypertension) Mild depression Parkinson disease with dyskinesia ([facility]) T2DM (type 2 diabetes mellitus) ([facility]) Past Surgical History: History reviewed. No pertinent surgical history. Admission Diagnosis: Patient Active Problem List Diagnosis Date Noted Normocytic anemia 07/26/2024 Major depressive disorder 07/26/2024 BPH (benign prostatic hyperplasia) 07/26/2024 HFrEF (heart failure with reduced ejection fraction) ([facility]) 07/26/2024 YUMIKO (acute kidney injury) ([facility]) 07/26/2024 Complicated UTI (urinary tract infection) 07/26/2024 Hematuria 07/26/2024 Septic shock ([facility]) 07/25/2024 Medical Precautions: No active isolations Proper [...] Needs Assist Receives Help From: Spouse Active Handle Assembler: No Prior Level of Function Prior Level [...] will dress lower body min assist. Start: 1 (more content not included)...[facility]10-23-2024 History of Present illness Narrative* Cheryl Romeroam, OTR/L - 07/27/2024 3:55 PM EDT Images from the original note were not included. OCCUPATIONAL THERAPY [facility] Initial Evaluation Name/MRN: Nick San ([id number]) Evaluation Date: 07/27/2024 Date of : 1960 Admission Date: 07/25/2024 12:25 PM Age: 64 y.o. Room[facility]Bed: [facility] Discharge Recommendation: Home with Home health OT, Home with assist PRN Equipment Needed: No Assessment IMPRESSION: 64 y/o male admitted for blood in urine. Pt with recent L TKA 06/22/24 at [facility] and [facility] Parkinson's with dyskinesia. Pt reports was [...] (hypertension) Mild depression Parkinson disease with dyskinesia ([facility]) T2DM (type 2 diabetes mellitus) ([facility]) Past Surgical History: History reviewed. No pertinent surgical history. Admission Diagnosis: Patient Active Problem List Diagnosis Date Noted Normocytic anemia 07/26/2024 Major depressive disorder 07/26/2024 BPH (benign prostatic hyperplasia) 07/26/2024 HFrEF (heart failure with reduced ejection fraction) ([facility]) 07/26/2024 YUMIKO (acute kidney injury) ([facility]) 07/26/2024 Complicated UTI (urinary tract infection) 07/26/2024 Hematuria 07/26/2024 Septic shock ([facility]) 07/25/2024 Medical Precautions: No active isolations Proper [...] Needs Assist Receives Help From: Spouse Active Handle Assembler: No Prior Level of Function Prior Level [...] Lower extremity weakness, Upper extremity weakness, and Decreasedendurance Safety/Education Safety Safety Devices in place: All fall risk precautions in place, call light within reach, left in bed, patient at risk for falls, and no alarms engaged upon entry Restraints: No Education Education Given To: patient Education Provided: OT Role, Plan of Care, Precautions, ADL Adaptive Strategies, Transfer Training,Energy Conservation, Equipment, Fall Prevention Education, Discharge Recommendations, [...] In 1518 Time Out 1535 Minutes 17 NICHOLAS Damon Patient's Occupational Therapy Plan of Care supervision is transferred to a [facility] Occupational Therapist. Goals and/or treatment plan was established in collaboration with patient/family/other representatives. * Baldev Bosch MD - 07/27/2024 6:42 AM EDT Med Team Progress Note Nick San : 1960(64 y.o.) Date: July 27, 2024 Med Team: Madai Attending: Dr. Bosch Chief Complaint: Blood in [...] Patient Position: Lying) Pulse 70 Temp 36.1 C (96.9 F) (Temporal) Resp 17 Ht 6' 0.01 (1.829 m) Wt 206 lb 12.8 oz (93.8 kg) SpO2 96% BMI 28.04 kg/m Physical Exam Constitutional: Appearance: Normal appearance. HENT: [...] daily Senokot tablet -Change Miralax to PRN Fzt-lddrdxr-qtvjequjh type 2 diabetes -Continue Farxiga 10 mg [...] examined the patient, and performed the associated medicaldecision making activities. I have reviewed & verified [...] my evaluation. Attending comments are in bold. * Marjan Paul, PT - 07/26/2024 2:58 PM EDT Images from the original note were not included. PHYSICAL THERAPY [facility] Initial Evaluation Name/MRN: Nick San ([id number]) Evaluation Date: 07/26/2024 Date of : 1960 Admission Date: 07/25/2024 12:25 PM Age: 64 y.o. Room[facility]Bed: [facility] Discharge Recommendation: Home with assist PRN, Home with Home health PT Other: tbd Assessment IMPRESSION: Nick San was admitted on 07.25.24 with septic shock secondary to a UTI. He also had a TKA on 06/22/24 at [facility]. He has Parkinson's disease. He lives at home with his . He is stillusing a FWW to ambulate. He has LLE edema. Ice was provided at the end of the session.He complains of stiffness and swelling in his LLE. He is negative for DVT. He has not yet had home PT begin, theywere supposed to start soon. He ambulated, exercised, and returned to bed at the end of the sessionwith a pillow under his sacrum because he [...] Chronic combined systolic and diastolic heart failure ([facility]) HTN (hypertension) Mild depression Parkinson disease with dyskinesia ([facility]) T2DM (type 2 diabetes mellitus) ([facility]) Past Surgical History: History reviewed. No pertinent surgical history. Admission Diagnosis: Patient Active Problem List Diagnosis Date Noted Normocytic anemia 07/26/2024 Major depressive disorder 07/26/2024 BPH (benign prostatic hyperplasia) 07/26/2024 HFrEF (heart failure with reduced ejection fraction) ([facility]) 07/26/2024 YUMIKO (acute kidney injury) ([facility]) 07/26/2024 Complicated UTI (urinary tract infection) 07/26/2024 Hematuria 07/26/2024 Septic shock ([facility]) 07/25/2024 Medical Precautions: No active isolations Proper [...] Needs Assist Receives Help From: Spouse Active Handle Assembler: No Prior Level of Function Prior Level [...] Raw Score (No Stairs) : 12 JH-HLM -HL Score: Walked 25 ft or more (i.e. [...] bed, chair alarm in place, gait belt, andnurse notified Restraints: No Education Education Given To: [...] in order to improve independence and prepare forout of bed mobility. Start: 07/26/24 Expected End: 08/09/24 Patient will complete functional transfer with least restrictive device with supervision in order to prepare for ambulation. Start: 07/26/24 Expected End: 08/09/24 Therapy Time Individual Co-treatment Time In 1400 Time Out 1430 Minutes 30 Marjan Paul PT Patient's Physical Therapy Plan of Care supervision is transferred to a [facility] Physical Therapist. Goals and/or treatment plan was established in collaboration with patient/family/other representatives. * Jos Llamas PharmD - 07/26/2024 10:28 AM EDT Vancomycin therapy has been discontinued by Anil Julien on 07/26/24. Thank you for the consult. Pharmacy signing off for vancomycin dosing. Jos Llamas PharmD Date: 07/26/24 Time: 10:28 AM * Jos Llamas PharmD - 07/26/2024 7:31 AM EDT Pharmacy to Dose Vancomycin - Progress Note Lab Results Component Value Date CREATININE 1.45 (H) 07/26/2024 BUN 18 07/26/2024 WBC 10.9 (H) 07/26/2024 VANCOTROUGH 7.8 (L) 07/26/2024 Doses, serum creatinine, and vancomycin levels interfaced automatically to [employer] and data has been analyzed and interpreted. [...] of 1500 mg every 24 hours. Predicted [id number] = 338 mg/L*hr (goal 400-600 mg/L*hr) PAUC = 42% (probability that AUC is >400 mg/L*hr) Pconc = 0% (probability that Ctrough is above 20 mcg/mL (toxicity)) Plan: Is the current dose therapeutic? [] [x] No - predicted subtherapeutic. Will change current regimen to vancomycin 1000 mg every 12 hourss for predicted [id number] 427 mg/L*hr (AUCss: 514 mg/L.hr), PAUC = 97% , and Pconc* = 10%. Obtain next level on 07/27/24. Trend serum creatinine. Trend AUC using Bayesian Modeling. Orders placed. Insight summary below: Regimen: 1000 mg IV every 12 hours. Start time: 17:14 on 07/26/2024 Exposure target: AUC24 (range)400-600 mg/L.hr [id number]: 427 mg/L.hr AUC24,ss: 514 mg/L.hr Probability of AUC24 > 400: 97 % Ctrough,ss: 15.9 mg/L Probability of Ctrough,ss > 20: 10 % DATE: 07/26/24 TIME: 7:25 AM Jos Llamas PharmD Clinical Pharmacist Available via Secure Chat * Magno Hebert, DO - 07/26/2024 6:39 AM EDT Med Team Progress Note Nick San : 1960(64 y.o.) Date: July 26, 2024 Med Team: Madai Attending: Dr. Bosch Chief Complaint: blood in urine Subjective: - No acute events overnight. - Currently, Mr. San is comfortable resting in bed and in [...] Patient Position: Lying) Pulse 65 Temp 36.6 C (97.8 F) (Temporal) Resp 18 Ht 6' 0.01 (1.829 m) Wt 215 lb 3.2 oz (97.6 kg) SpO2 93% BMI 29.18 kg/m Physical Exam Vitals reviewed. HENT: Head: Normocephalic [...] tablet BID -Continue Miralax 17 g daily Ltm-nrdyzi-jtrcemqxp type 2 diabetes -Continue Farxiga 10 mg daily -Continue sliding scale insulin TID - Goals of Care: FULL CODE - DVT Prophylaxis: SCD's or Sequential Compression Device - GI Prophylaxis: Protonix daily - Diet: General Cosigned by Baldev Bosch MD at 07/26/2024 3:57 PM EDT Associated attestation - Baldev Bosch MD - 07/26/2024 3:57 PM EDT Agree with note, see H&P for attending comments documented in this [facility]10-23-2024 Note* Care Coordination - ALPA Dhillon - 07/27/2024 3:51 PM EDT Pt to be dc'd home today . Spoke to pt's dtr Hilary who feels the [...] Trip with dank rice claiming the trip-they havescheduled a 5 pm flower buncher or picker. Informed the Rn, pt aware -dtradha Richard and unite law secretary aware of dc time. [id number] Note* Care Coordination - ALPA Dhillon - 07/27/2024 3:51 PM EDT Pt to be dc'd home today . Spoke to pt's dtr Hilary who feels the [...] Trip with dank rice claiming the trip-they havescheduled a 5 pm flower buncher or picker. Informed the Rn, pt aware -nayana Richard and unite law secretary aware of dc time. [id number] Miscellaneous Notes* Care Coordination - ALPA Dhillon - 07/27/2024 3:51 PM EDT Pt to be dc'd home today . Spoke to pt's dtr Hilary who feels the [...] Trip with dank rice claiming the trip-they havescheduled a 5 pm flower buncher or picker. Informed the Rn, pt aware -dtr Hilary and unite law secretary aware of dc time. * Care Coordination - Brittany Alvarez RN - 07/27/2024 11:54 AM EDT Care Management Progress Note Spoke with daughter. She feels pt needs to go somewhere to get stronger. Asked for OT orders. Will ask PT to see again. Will follow for needs. Length of Stay (Days): 2 GMLOS: No GMLOS Documented * Care Plan - Gianna Fishman RN - 07/27/2024 8:41 AM EDT Problem: Knowledge Deficit Goal: Patient/family/caregiver demonstrates understanding of disease process, treatment plan, medications, and discharge instructions Outcome: Progressing Problem: Potential for Compromised Skin Integrity Goal: Skin Integrity is Maintained or Improved Outcome: Progressing Goal: Nutritional status is improving Outcome: Progressing Problem: Urinary Incontinence Goal: Perineal skin integrity is maintained or improved Outcome: Progressing Problem: Potential for Falls Goal: I will remain free of falls Outcome: Progressing Problem: Discharge Barriers Goal: My discharge needs are met Outcome: Progressing Problem: Pain - Adult Goal: Verbalizes/displays adequate comfort level or baseline comfort level Outcome: Progressing Problem: Safety - Adult Goal: Free from fall injury Outcome: Progressing Problem: Discharge Planning Goal: Discharge to home or other facility with appropriate resources Outcome: Progressing Problem: Chronic Conditions and Co-morbidities Goal: Patient's chronic conditions and co-morbidity symptoms are monitored and maintained or improved Outcome: Progressing * Care Plan - Alma Jade RN - 07/26/2024 9:17 PM EDT The patient is Moderately Stable - Low risk of patient condition declining or worsening The patient's goals for the shift include get sleep The clinical goals for the shift include maintain urine output Problem: Knowledge Deficit Goal: Patient/family/caregiver demonstrates understanding of disease process, treatment plan, medications, and discharge instructions Outcome: Progressing Problem: Potential for Compromised Skin Integrity Goal: Skin Integrity is Maintained or Improved Outcome: Progressing Goal: Nutritional status is improving Outcome: Progressing Problem: Urinary Incontinence Goal: Perineal skin integrity is maintained or improved Outcome: Progressing Problem: Potential for Falls Goal: I will remain free of falls Outcome: Progressing Problem: Discharge Barriers Goal: My discharge needs are met Outcome: Progressing Problem: Pain - Adult Goal: Verbalizes/displays adequate comfort level or baseline comfort level Outcome: Progressing Problem: Safety - Adult Goal: Free from fall injury Outcome: Progressing Problem: Discharge Planning Goal: Discharge to home or other facility with appropriate resources Outcome: Progressing Problem: Chronic Conditions and Co-morbidities Goal: Patient's chronic conditions and co-morbidity symptoms are monitored and maintained or improved Outcome: Progressing * Home Care - Alondra Rodriguez RN - 07/26/2024 2:29 PM EDT According to [facility], pt was sent home from [facility] with [facility] [address] [id number] Referral started in [facility] to verify services with this agency. ADDENDUM: 07/26/24 4:06 PM Elzbieta called this HCL from [facility] and verified pt is active for SN/PT/OT with them. [employer] Manager following case for Discharge Needs. * Care Coordination - Brittany Alvarez RN - 07/26/2024 12:13 PM EDT Care Managment Initial Assessment Date: 07/26/2024 Patient Name: Nick San : 1960 Patient Information Source of Information: Patient Cognition/Language: WFL - Within Functional Limits Permission given to speak with patient installation service representative/caregiver as indicated: Confirmation of Payer with patient/family: Yes Payer Name: [employer] Medicare : No Confirmation of Primary Care Physician: Confirmed [...] follow for needs. . Brittany Alvarez RN * Care Plan - Gianna Fishman RN - 07/26/2024 11:43 AM EDT Problem: Knowledge Deficit Goal: Patient/family/caregiver demonstrates understanding of disease process, treatment plan, medications, and discharge instructions Outcome: Progressing Problem: Potential for Compromised Skin Integrity Goal: Skin Integrity is Maintained or Improved Outcome: Progressing Goal: Nutritional status is improving Outcome: Progressing Problem: Urinary Incontinence Goal: Perineal skin integrity is maintained or improved Outcome: Progressing Problem: Potential for Falls Goal: I will remain free of falls Outcome: Progressing Problem: Discharge Barriers Goal: My discharge needs are met Outcome: Progressing * Care Plan - Irma Fontenot RN - 07/25/2024 11:57 PM EDT The patient is Moderately Stable - Low risk of patient condition declining or worsening The patient's goals for the shift include Safety The clinical goals for the shift include Safety documented in this [facility]10-23-2024 Note Attestation signed by Baldev Bosch MD at [...] Internal Medicine: Med Team Discharge Summary Nick San : 1960 ADMIT DATE: 07/25/2024 DISCHARGE DATE: [...] Reason for Admission & Hospital Course: Nick San is a 64 y.o. male with PMHx of recent YUMIKO 2/2 urinary retention, and total L knee replacement (06/22/24) seen at [facility], heart failure with recovered ejection fraction currently is (54%), zzl-chzckah-lrjampwhc T2DM, BPH, kidney stones w/stent (5 years ago), and Parkinson's Dz w/dyskinesia that presented to [facility] on 07/25/2024 from home. Pt w/hematuria for past three days, associated with dysuria. Pt daughter picked him up on 07/25 to bring him to [facility], however pt was weak and nearly [...] Your Medications These medications were sent to [facility] [address] [place] [address] Hours: Thursday to Thursday 10 am to [...] at Followup Visit: Cystoscopy and intermittent hematuria. Electronically signed by Magno Hebert DO on (more content not included)...[facility]10-23-2024 Hospital course Narrative* Magno Hebert DO - 07/27/2024 12:06 PM EDT Internal Medicine: Med Team Discharge Summary Nick San : 1960 ADMIT DATE: 07/25/2024 DISCHARGE DATE: [...] Reason for Admission & Hospital Course: Nick San is a 64 y.o. male with PMHx of recent YUMIKO 2/2 urinary retention, and total L knee replacement (06/22/24) seen at [facility], heart failure with recovered ejection fraction currentlyis (54%), bdr-eudyktx-rxmcbbnyd T2DM, BPH, kidney stones w/stent (5 years ago), and Parkinson's Dz w/dyskinesia that presented to [facility] on 07/25/2024 from home. Pt w/hematuria for past three days, associated with dysuria. Pt daughter picked him up on 07/25 to bring him to [facility], however pt was weak and nearly [...] serratia marcescens. Pt was initially treated with vancomycinand cefepime in the ED but later changed to Bactrim for infection coverage. Bilateral LE duplex wasperformed with negative findings. His leukocytosis and lactic [...] Your Medications These medications were sent to [facility] [address] [place] [address] Hours: Thursday to Thursday 10 am to [...] at Followup Visit: Cystoscopy and intermittent hematuria. Cosigned by Baldev Bosch MD at 07/27/2024 3:49 PM EDT Associated attestation - Baldev Bosch MD - 07/27/2024 3:49 PM EDT Patient seen and examined on day of discharge. Please refer to note dated on the day of discharge (07/27/24) for associated attestation, exam and plan. I reviewed documentation and agree with the documented findings and plan of care, unless otherwise noted. Time spent on discharge >30 minutes Of note, patient's urine culture is showing serratia marcescens documented in this encounterSKindred Hospital [id number] Note* Care Coordination - Brittany Alvarez RN - 07/27/2024 11:54 AM EDT Care Management Progress Note Spoke with daughter. She feels pt needs to go somewhere to get stronger. Asked for OT orders. Will ask PT to see again. Will follow for needs. Length of Stay (Days): 2 GMLOS: No GMLOS Documented [id number] Note* Care Coordination - Brittany Alvarez RN - 07/27/2024 11:54 AM EDT Care Management Progress Note Spoke with daughter. She feels pt needs to go somewhere to get stronger. Asked for OT orders. Will ask PT to see again. Will follow for needs. Length of Stay (Days): 2 GMLOS: No GMLOS Documented [id number] NoteCare Management Progress Note Spoke with daughter. She feels pt needs to go somewhere to get stronger. Asked for OT orders. Will ask PT to see again. Will follow for needs. Length of Stay (Days): 2 GMLOS: No GMLOS [facility] Telephone encounter Note* Telephone Encounter - Rohit Holloway RN - 07/27/2024 8:42 AM EDT Currently admitted. [facility] [id number] Plan of care note* Care Plan - Gianna Fishman RN - 07/27/2024 8:41 AM EDT Problem: Knowledge Deficit Goal: Patient/family/caregiver demonstrates understanding of disease process, treatment plan, medications, and discharge instructions Outcome: Progressing Problem: Potential for Compromised Skin Integrity Goal: Skin Integrity is Maintained or Improved Outcome: Progressing Goal: Nutritional status is improving Outcome: Progressing Problem: Urinary Incontinence Goal: Perineal skin integrity is maintained or improved Outcome: Progressing Problem: Potential for Falls Goal: I will remain free of falls Outcome: Progressing Problem: Discharge Barriers Goal: My discharge needs are met Outcome: Progressing Problem: Pain - Adult Goal: Verbalizes/displays adequate comfort level or baseline comfort level Outcome: Progressing Problem: Safety - Adult Goal: Free from fall injury Outcome: Progressing Problem: Discharge Planning Goal: Discharge to home or other facility with appropriate resources Outcome: Progressing Problem: Chronic Conditions and Co-morbidities Goal: Patient's chronic conditions and co-morbidity symptoms are monitored and maintained or improved Outcome: Progressing [id number] Nurse Note* Анна Camarena RN - 07/27/2024 8:25 AM EDT Wound Care consulted for Pressure Injury Prevention. Pt's Santosh= 19, pt is no longer at risk. Skin Care Precaution order set in place. PT consult in place. Will continue to follow peripherally.Please voicera or secure chat message with any questions. Hermila Camarena RN, CWCN [employer] [id number] NoteMed Team Progress Note Nick San : 1960(64 y.o.) Date: July 27, 2024 Med Team: Madai Attending: Dr. Bosch Chief Complaint: Blood in [...] IV Zosyn q8h -Attempt void trial today A (more content not included)...[facility]10-22-2024 Plan of care note* Care Plan - Alma Jade RN - 07/26/2024 9:17 PM EDT The patient is Moderately Stable - Low risk of patient condition declining or worsening The patient's goals for the shift include get sleep The clinical goals for the shift include maintain urine output Problem: Knowledge Deficit Goal: Patient/family/caregiver demonstrates understanding of disease process, treatment plan, medications, and discharge instructions Outcome: Progressing Problem: Potential for Compromised Skin Integrity Goal: Skin Integrity is Maintained or Improved Outcome: Progressing Goal: Nutritional status is improving Outcome: Progressing Problem: Urinary Incontinence Goal: Perineal skin integrity is maintained or improved Outcome: Progressing Problem: Potential for Falls Goal: I will remain free of falls Outcome: Progressing Problem: Discharge Barriers Goal: My discharge needs are met Outcome: Progressing Problem: Pain - Adult Goal: Verbalizes/displays adequate comfort level or baseline comfort level Outcome: Progressing Problem: Safety - Adult Goal: Free from fall injury Outcome: Progressing Problem: Discharge Planning Goal: Discharge to home or other facility with appropriate resources Outcome: Progressing Problem: Chronic Conditions and Co-morbidities Goal: Patient's chronic conditions and co-morbidity symptoms are monitored and maintained or improved Outcome: Progressing [employer] [id number] NotePHYSICAL THERAPY [facility] Initial Evaluation Name/MRN: Nick San ([id number]) Evaluation Date: 07/26/2024 Date of : 1960 Admission Date: 07/25/2024 12:25 PM Age: 64 y.o. [facility] Discharge Recommendation: Home with assist PRN, Home with Home health PT Other: tbd Assessment IMPRESSION: Nick San was admitted on 07.25.24 with septic shock secondary to a UTI. He also had a TKA on 06/22/24 at [facility]. He has Parkinson's disease. He lives [...] Chronic combined systolic and diastolic heart failure ([facility]) HTN (hypertension) Mild depression Parkinson disease with dyskinesia ([facility]) T2DM (type 2 diabetes mellitus) ([facility]) Past Surgical History: History reviewed. No pertinent surgical history. Admission Diagnosis: Patient Active Problem List Diagnosis Date Noted Normocytic anemia 07/26/2024 Major depressive disorder 07/26/2024 BPH (benign prostatic hyperplasia) 07/26/2024 HFrEF (heart failure with reduced ejection fraction) ([facility]) 07/26/2024 YUMIKO (acute kidney injury) ([facility]) 07/26/2024 Complicated UTI (urinary tract infection) 07/26/2024 Hematuria 07/26/2024 Septic shock ([facility]) 07/25/2024 Medical Precautions: No active isolations Proper [...] Needs Assist Receives Help From: Spouse Active Handle Assembler: No Prior Level of Function Prior Level [...] up from a chair using your arms ( (more content not included)...[facility]10-22-2024 Hospital Discharge instructions* Discharge Instr - LANRE* Gianna Fishman RN - 07/26/2024 2:31 PM EDT * Attachments The following attachments cannot be sent through Care Everywhere. * Blood in the Urine (Hematuria) Discharge Instructions, Adult (Ethiopian) * Benign Prostatic Hyperplasia (Enlarged Prostate) Discharge Instructions (Ethiopian) * Parkinson Disease Discharge Instructions (Ethiopian) documented in this [facility]10-22-2024 Note* Home Care - Alondra Rodriguez RN - 07/26/2024 2:29 PM EDT According to [facility], pt was sent home from [facility] with [facility] [address] [place] [address] Referral started in [facility] to verify services with this agency. ADDENDUM: 07/26/24 4:06 PM Elzbieta called this HCL from [facility] and verified pt is active for SN/PT/OT with them. Business Insight And Analytics Manager following case for Discharge Needs. [facility] [id number] Note* Home Care - Alondra Rodriguez RN - 07/26/2024 2:29 PM EDT According to [facility], pt was sent home from [facility] with [facility] [address] [place] [address] Referral started in [facility] to verify services with this agency. ADDENDUM: 07/26/24 4:06 PM Elzbieta called this HCL from [facility] and verified pt is active for SN/PT/OT with them. Business Insight And Analytics Manager following case for Discharge Needs. [facility] [id number] Note* Care Coordination - Brittany Alvarez RN - 07/26/2024 12:13 PM EDT Care Managment Initial Assessment Date: 07/26/2024 Patient Name: Nick San : 1960 Patient Information Source of Information: Patient Cognition/Language: WFL - Within Functional Limits Permission given to speak with patient installation service representative/caregiver as indicated: Confirmation of Payer with patient/family: Yes Payer Name: UHC Medicare : No Confirmation of Primary Care Physician: Confirmed PCP Name: Lynn states his daughter just got him one [...] stable, will follow for needs. . Brittany Joss-Fast, RN [facility] [id number] Note* Care Coordination - rBittany Alvarez RN - 07/26/2024 12:13 PM EDT Care Managment Initial Assessment Date: 07/26/2024 Patient Name: Nick San : 1960 Patient Information Source of Information: Patient Cognition/Language: WFL - Within Functional Limits Permission given to speak with patient installation service representative/caregiver as indicated: Confirmation of Payer with patient/family: Yes Payer Name: UHC Medicare [place]: No Confirmation of Primary Care Physician: Confirmed PCP Name: Lynn states his daughter just got him one [...] Daily Living Prescription Coverage: Yes Pharmacy Used: [facility] Medication Management: Independent Transportation/Shopping: Independent Transportation Mode: [...] follow for needs. . Brittany Alvarez RN T [facility] [id number] Plan of care note* Care Plan - Gianna Fishman RN - 07/26/2024 11:43 AM EDT Problem: Knowledge Deficit Goal: Patient/family/caregiver demonstrates understanding of disease process, treatment plan, medications, and discharge instructions Outcome: Progressing Problem: Potential for Compromised Skin Integrity Goal: Skin Integrity is Maintained or Improved Outcome: Progressing Goal: Nutritional status is improving Outcome: Progressing Problem: Urinary Incontinence Goal: Perineal skin integrity is maintained or improved Outcome: Progressing Problem: Potential for Falls Goal: I will remain free of falls Outcome: Progressing Problem: Discharge Barriers Goal: My discharge needs are met Outcome: Progressing T [facility] [id number] Telephone encounter Note* Telephone Encounter - Halima Loco RN - 07/26/2024 10:21 AM EDT Patient currently still admitted [facility]10-22-2024 NotePharmacy to Dose Vancomycin - Progress Note Lab Results Component Value Date CREATININE 1.45 (H) 07/26/2024 BUN 18 07/26/2024 WBC 10.9 (H) 07/26/2024 VANCOTROUGH 7.8 (L) 07/26/2024 Doses, serum creatinine, and vancomycin levels interfaced automatically to [employer] and data has been analyzed and interpreted. Infectious Diagnosis: sepsis Est CrCl: Estimated Creatinine Clearance: 60.7 mL/min (A) (by C-G formula based on SCr of 1.45 mg/dL (H)). mL/min (Cockcroft-Gault) Assessment: Patient received a one time dose of 1250 mg on 10/21/24 at 17:14. Then will proceed with current planned regimen of vancomycin 1500 mg every 24 hours. As of writing this ivent note patient has not yet received a dose of planned regimen of 1500 mg every 24 hours. Predicted PKV13-45 = 338 mg/L*hr (goal 400-600 mg/L*hr) PAUC = 42% (probability that AUC is >400 mg/L*hr) Pconc = 0% (probability that Ctrough is above 20 mcg/mL (toxicity)) Plan: Is the current dose therapeutic? [] [x] No - predicted subtherapeutic. Will change current regimen to vancomycin 1000 mg every 12 hourss for predicted WUO10-21 427 mg/L*hr (AUCss: 514 mg/L.hr), PAUC = 97% , and Pconc* = 10%. Obtain next level on 07/27/24. Trend serum creatinine. Trend AUC using Bayesian Modeling. Orders placed. Insight summary below: Regimen: 1000 mg IV every 12 hours. Start time: 17:14 on 07/26/2024 Exposure target: AUC24 (range)400-600 mg/L.hr QJH42-91: 427 mg/L.hr AUC24,ss: 514 mg/L.hr Probability of AUC24 > 400: 97 % Ctrough,ss: 15.9 mg/L Probability of Ctrough,ss > 20: 10 % DATE: 07/26/24 TIME: 7:25 AM Jos Llamas PharmD Clinical Pharmacist Available via Secure [facility] [id number] Consult note* Michelle Cespedes RN - 07/26/2024 7:19 AM EDTAssociated Order(s): IP CONSULT TO DIABETES MANAGER Pt does not meet criteria for bedside, in-patient Survival Skills Diabetes Education; Criteria includes the following; Newly diagnosed Diabetes and/or pre-existing Diabetes and new to insulin therapy. A1C= 6.1% Out-patient Diabetes Self-Management Education (DSME) is appropriate for this patient: [facility]: Endocrinology [phone] [facility] [id number] NotePt does not meet criteria for bedside, in-patient Survival Skills Diabetes Education; Criteria includes the following; Newly diagnosed Diabetes and/or pre-existing Diabetes and new to insulin therapy. A1C= 6.1% Out-patient Diabetes Self-Management Education (DSME) is appropriate for this patient: [facility]: Endocrinology [phone] Consult note* Michelle Cespedes RN - 07/26/2024 7:19 AM EDTAssociated Order(s): IP CONSULT TO DIABETES MANAGER Pt does not meet criteria for bedside, in-patient Survival Skills Diabetes Education; Criteria includes the following; Newly diagnosed Diabetes and/or pre-existing Diabetes and new to insulin therapy. A1C= 6.1% Out-patient Diabetes Self-Management Education (DSME) is appropriate for this patient: [facility]: Endocrinology [phone] * Ernst Hall MD - 07/26/2024 2:50 AM EDTAssociated Order(s): IP CONSULT TO UROLOGY Urology Inpatient Consultation 07/26/2024 HISTORY OF PRESENT ILLNESS: The patient is a 64 y.o.male unknown to our service w PMHx as stated below, including recent YUMIKO 2/2 urinary retention following L total knee at [facility] on 06/22/24. Presented to ER w complaintsof intermittent bright red blood in urine for the last 72hrs. Urology consulted for assessment and management. Pt evaluated at bedside in NAD. Reiterates above. Also notes weakness. Also notes prior hematuria associated with renal stones but is unsure if they were passed or operated on. Most recently had a 1xepisode of hematuria 2 weeks ago. Denies fever/chills, n/v, suprapubic pain, or dysuria. Denies anysmoking hx, known family hx of cancers, or seeing a urologist Work up: AF HDS WBC 8.5(11.7) Hb 7.8(11) Cr 1.01(1.67) Lactate 4.4 UA: +LE, WBC, RBC, few bacteria Ucx/Bcx: (p) Zosyn/Vanc CT: small bilateral renal calculus, no hydro 16Fr pryor coude PAST MEDICAL HISTORY: Past Medical History: [...] mouth in the morning and 1 tablet atnoon and 1 tablet in the evening. dapagliflozin (Farxiga) 10 MG tablet Take 1 tablet by mouth daily (with breakfast). lisinopril 10 MG tablet Take 10 mg by mouth in the morning. pantoprazole (ProtoNix) 40 MG EC tablet Take 40 mg by mouth every morning (before breakfast). senna-docusate (Promise-Colace) 8.6-50 MG tablet Take 1 tablet by mouth in the morning and 1 tablet inthe evening. spironolactone (Aldactone) 25 MG tablet Take [...] 0 min Stress: Stress Concern Present (07/25/2024) [employer] - Occupational Stress Questionnaire Feeling of Stress : To some extent Social Connections: Socially Isolated (07/25/2024) Social Connection and Isolation Panel [NHANES] Frequency of Communication with Friends and Family: Never Frequency of Social Gatherings with Friends and Family: Never Attends [employer] Services: Never Active Member of Clubs or [...] VITALS: BP 120/61 Pulse 67 Temp 36.5 C (97.7 F) (Temporal) Resp 18 Ht 6' 0.01 (1.829 m) Wt 215 lb 3.2 oz (97.6 kg) SpO2 95% BMI 29.18 kg/m General: Alert, in no acute distress Head: Normocephalic, atraumatic Neck: supple, trachea is midline, no obvious masses Respiratory: no respiratory distress, normal effort, no audible wheezes Cardiovascular: regular pulse and no cyanosis Musculoskeletal: normal tone in all four extremities Skin: warm and dry Psych: normal mood and affect Abdomen: soft, non distended, non tender : b/l flank NTP, no suprapubic tenderness, pryor intact draining clear yellow urine DATA: LABS: [...] hematuria. Hx of YUMIKO 2/2 retention. Current pryor in place for unknown initial amount PLAN: - No acute urological surgical intervention at this time - Cr 1.01 (1.67), trend - WBC 8.5 (11.7), trend - Scheduled flomax if tolerable - Goal of daily, soft bowel movements prior to removal of pryor catheter. Bowel regimen per primaryservice. - UA + LE, RBC, WBC, few bacteria - Ucx/Bcx pending - Catheter draining clear yellow urine - Maintain pryor catheter, recommend void trial prior to discharge. Please reach out to urology dayprior to anticipated discharge to coordinate void trial - Recommend outpatient follow-up for cystoscopy and other workup for intermittent hematuria - Will set telephone encounter for office to coordinate Void trial instructions: Once pryor in place and on scheduled Flomax for 72 hours Having regular bowel movements Ambulating at patient's baseline Once these milestones are all met, contact the on-call urology resident in the graduate teaching assistant for void trial instructions - Continue to monitor labs and VS - All other cares per specialty teams Thank you for allowing me to participate in the care of your patient. Ernst Hall MD PGY-2 Urology Cosigned by Wang Villasenor MD at 07/26/2024 3:24 PM EDT Associated attestation - Wang Villasenor MD - 07/26/2024 3:24 PM EDT I saw and evaluated the patient, participating in the villalobos portions of the service. I reviewed the resident s note. I agree with the resident s findings and plan. Wang Villasenor MD * Vonnie Holguin, [facility] - 07/25/2024 6:20 PM EDT Images from the original note were not included. Pharmacy Managed Vancomycin Dosing Service Consult Note Consult Date: 07/25/24 Patient Name: Nick San Allergies: Hydrocodone-acetaminophen and Tramadol Age: 64 y.o. Sex: male Estimated body mass index is 30.52 kg/m as calculated from the following: Height as [...] creatinine, and vancomycin levels interfaced automatically to [employer] and data has been analyzed and interpreted. [...] DATE: 07/25/24 TIME: 6:20 PM Vonnie Holguin RPh Clinical Pharmacist Available via Secure Chat documented in this [facility] [id number] Telephone encounter Note* Telephone Encounter - Ernst Hall MD - 07/26/2024 4:33 AM EDT Pt consulted for intermittent hx of gross hematuria. None seen currently inpatient. Will require outpatient f/u and possible cystoscopy [facility] Phone: 1(764) 972-707910-22-2024 Consult note* Ernst Hall MD - 07/26/2024 2:50 AM EDTAssociated Order(s): IP CONSULT TO UROLOGY Urology Inpatient Consultation 07/26/2024 HISTORY OF PRESENT ILLNESS: The patient is a 64 y.o.male unknown to our service w PMHx as stated below, including recent YUMIKO 2/2 urinary retention following L total knee at [facility] on 06/22/24. Presented to ER w complaintsof intermittent bright red blood in urine for the last 72hrs. Urology consulted for assessment and management. Pt evaluated at bedside in NAD. Reiterates above. Also notes weakness. Also notes prior hematuria associated with renal stones but is unsure if they were passed or operated on. Most recently had a 1xepisode of hematuria 2 weeks ago. Denies fever/chills, n/v, suprapubic pain, or dysuria. Denies anysmoking hx, known family hx of cancers, or seeing a urologist Work up: AF HDS WBC 8.5(11.7) Hb 7.8(11) Cr 1.01(1.67) Lactate 4.4 UA: +LE, WBC, RBC, few bacteria Ucx/Bcx: (p) Zosyn/Vanc CT: small bilateral renal calculus, no hydro 16Fr pryor coude PAST MEDICAL HISTORY: Past Medical History: [...] mouth in the morning and 1 tablet atnoon and 1 tablet in the evening. dapagliflozin (Farxiga) 10 MG tablet Take 1 tablet by mouth daily (with breakfast). lisinopril 10 MG tablet Take 10 mg by mouth in the morning. pantoprazole (ProtoNix) 40 MG EC tablet Take 40 mg by mouth every morning (before breakfast). senna-docusate (Promise-Colace) 8.6-50 MG tablet Take 1 tablet by mouth in the morning and 1 tablet inthe evening. spironolactone (Aldactone) 25 MG tablet Take [...] 0 min Stress: Stress Concern Present (07/25/2024) [employer] - Occupational Stress Questionnaire Feeling of Stress : To some extent Social Connections: Socially Isolated (07/25/2024) Social Connection and Isolation Panel [NHANES] Frequency of Communication with Friends and Family: Never Frequency of Social Gatherings with Friends and Family: Never Attends [employer] Services: Never Active Member of Clubs or [...] VITALS: BP 120/61 Pulse 67 Temp 36.5 C (97.7 F) (Temporal) Resp 18 Ht 6' 0.01 (1.829 m) Wt 215 lb 3.2 oz (97.6 kg) SpO2 95% BMI 29.18 kg/m General: Alert, in no acute distress Head: Normocephalic, atraumatic Neck: supple, trachea is midline, no obvious masses Respiratory: no respiratory distress, normal effort, no audible wheezes Cardiovascular: regular pulse and no cyanosis Musculoskeletal: normal tone in all four extremities Skin: warm and dry Psych: normal mood and affect Abdomen: soft, non distended, non tender : b/l flank NTP, no suprapubic tenderness, pryor intact draining clear yellow urine DATA: LABS: [...] hematuria. Hx of YUMIKO 2/2 retention. Current pryor in place for unknown initial amount PLAN: - No acute urological surgical intervention at this time - Cr 1.01 (1.67), trend - WBC 8.5 (11.7), trend - Scheduled flomax if tolerable - Goal of daily, soft bowel movements prior to removal of pryor catheter. Bowel regimen per primaryservice. - UA + LE, RBC, WBC, few bacteria - Ucx/Bcx pending - Catheter draining clear yellow urine - Maintain pryor catheter, recommend void trial prior to discharge. Please reach out to urology dayprior to anticipated discharge to coordinate void trial - Recommend outpatient follow-up for cystoscopy and other workup for intermittent hematuria - Will set telephone encounter for office to coordinate Void trial instructions: Once pryor in place and on scheduled Flomax for 72 hours Having regular bowel movements Ambulating at patient's baseline Once these milestones are all met, contact the on-call urology resident in the graduate teaching assistant for void trial instructions - Continue to monitor labs and VS - All other cares per specialty teams Thank you for allowing me to participate in the care of your patient. Ernst Hall MD PGY-2 Urology Cosigned by Wang Villasenor MD at 07/26/2024 3:24 PM EDT Associated attestation - Wang Villasenor MD - 07/26/2024 3:24 PM EDT I saw and evaluated the patient, participating in the villalobos portions of the service. I reviewed the resident s note. I agree with the resident s findings and plan. Wang Villasenor MD [facility] Work Phone: 1(328) 124-428410-21-2024 Plan of care note* Care Plan - Irma Fontenot RN - 07/25/2024 11:57 PM EDT The patient is Moderately Stable - Low risk of patient condition declining or worsening The patient's goals for the shift include Safety The clinical goals for the shift include Safety [facility] [id number] Emergency department Note* Lisa Pelayo RN - 07/25/2024 10:58 PM EDT Patient transported with RN to 5W. A&Ox4, stating 96% on RA. Lisa Pelayo RN 07/25/242258 [facility] [id number] Emergency department Note* Lisa Pelayo RN - 07/25/2024 10:58 PM EDT Patient transported with RN to 5W. A&Ox4, stating 96% on RAVianey Pelayo RN 07/25/242258 * Lisa Pelayo RN - 07/25/2024 10:31 PM EDT Preventative foam border dressing placed on sacrum and heels. Patient agreeable to being turned with wedges. Declined gown. Lisa Pelayo RN 07/25/24 313 * Kamilla Ratliff RN - 07/25/2024 10:08 PM EDT Admitting at bedside. Kamilla Ratliff RN 07/25/242208 * Lisa Pelayo RN - 07/25/2024 9:00 PM EDT Patient cot switched to inpatient hospital bed. Lisa Pelayo RN 07/25/242100 * Lisa Pelayo RN - 07/25/2024 8:00 PM EDT Pt declined wedges when offered. Lisa Pelayo RN 07/25/242205 * Kamilla Ratliff RN - 07/25/2024 7:29 PM EDT Report from JASON Hollingsworth. Kamilla Ratliff RN 07/25/241928 * Kamilla Ratliff RN - 07/25/2024 6:11 PM EDT Report to JASON Hollingsworth. Kamilla Ratliff RN 07/25/241810 * Kamilla Ratliff RN - 07/25/2024 6:04 PM EDT Meal tray at bedside. Kamilla Ratliff RN 07/25/241803 * Kamilla Ratliff RN - 07/25/2024 5:21 PM EDT Patient and family provided menu and hospital phone to order dinner tray. Kamilla Ratlfif RN 07/25/24 1722 * Kamilla Ratliff RN - 07/25/2024 5:02 PM EDT Report from JASON Hollingsworth. Kamilla Ratliff RN 07/25/24 1702 * Jade Sosa RN - 07/25/2024 3:49 PM EDT Lab called with lactic acid 4.4, same reported to Dr. Guillen and Dr. Escalante via secure chat Jade Sosa RN 07/25/24 1549 * Edel Adorno RN - 07/25/2024 3:38 PM EDT Coude catheter placed in pt per Dr. Escalante for urinary retention. Urine was clear and yellow with noblood or clots. Urine sample sent off to lab. Edel Adorno RN 07/25/24 1538 * Edel Adorno RN - 07/25/2024 3:18 PM EDT 225 mLs of urine in the bladder. Dr. Escalante notified about result. Edel Adorno RN 07/25/24 1518 * Edel Adorno RN - 07/25/2024 2:02 PM EDT Pt tried to urinate into urinal but was un able to go. Edel Adorno RN 07/25/24 1402 * Marlene Escalante MD - 07/25/2024 12:25 PM EDT EMERGENCY DEPARTMENT ENCOUNTER Pt Name: Nick San Birthdate 1960 Date of evaluation: 07/25/2024 ED [...] the entirety of this encounter. HPI Nick San is a 64 y.o. who presents to [...] mouth in the morning and 1 tablet atnoon and 1 tablet in the evening. CITALOPRAM [...] mouth in the morning and 1 tablet inthe evening. SPIRONOLACTONE (ALDACTONE) 25 MG TABLET Take 25 mg by mouth in the morning. TAMSULOSIN (FLOMAX) 0.4 MG 24 HR CAPSULE Take 0.4 mg by mouth in the morning. ALLERGIES Hydrocodone-acetaminophen and Tramadol FAMILY HISTORY No family history on file. SOCIAL HISTORY Social History Socioeconomic History Marital status: Social Determinants of Health Food Insecurity: No Food Insecurity (07/07/2024) Received from [facility] Hunger Vital Sign Worried About Running Out of Food in the Last Year: Never true Ran Out of Food in the Last Year: Never true Transportation Needs: No Transportation Needs (07/07/2024) Received from [facility] PRAPARE - Transportation Lack of Transportation (Medical): No Lack of Transportation (Non-Medical): No Housing Stability: Low Risk (07/07/2024) Received from [facility] Housing Stability Vital Sign Unable to Pay for Housing in the Last Year: No Number of Times Moved in the Last Year: 1 Homeless in the Last Year: No SCREENINGS Eugenio Coma Scale Best Eye Response: Spontaneous Best Verbal Response: Oriented Best Motor Response: Follows commands Eugenio Coma Scale Score: 15 PHYSICAL EXAM ED Triage Vitals [07/25/24 1246] Temp Heart Rate Resp BP 37.2 C (98.9 F) 65 18 109/60 SpO2 Temp Source Heart [...] Culture. Procedure Abnormality Status --------- ------ Complete Urinalysis[[id number]] Abnormal Final result Please view results for [...] 65 Resp: 18 18 20 Temp: 37.2 C (98.9 F) TempSrc: Oral SpO2: 95% 96% 96% Weight: 102 kg (225 lb) Height: 1.829 m (6') The patient presented with a chief complaint of hematuria. Our workup consisted of ordering/reviewing CBC, BMP, urinalysis, lactic acid. CBC revealed mild leukocytosis with WBC 11.7, mild anemia withhemoglobin of 11 which appears stable to previous [...] acid was elevated at 4.4. Although the patie nt did not meet SIRS criteria, given patient's [...] confirmed or suspected to move forward with diagnosisof sepsis. Must select at least one: [x] [...] Patient Position: Lying) Pulse 65 Temp 37.2 C (98.9 F) (Oral) Resp 20 Ht 1.829 m (6') Wt 102 kg (225 lb) SpO2 96% BMI 30.52 kg/m Cardiac examination significant for: Regular rate and [...] (premix) (1,250 mg IntraVENous New Bag 07/25/24 1714) cefepime (Maxipime) 2,000 mg in sodium chloride [...] are any questions or concerns please feel freeto contact the dictating provider for clarification.) Marlene Escalante MD (electronically signed) Emergency Medicine Provider Marlene Escalante MD Resident 07/25/24 1727 Marlene Escalante MD Resident 07/25/24 1740 Cosigned by Patric Guillen MD at 07/26/2024 7:06 AM EDT * Patric Guillen MD - 07/25/2024 12:25 PM EDT Emergency Department Encounter [facility] EMERGENCY DEPT Patient: Nick San : 1960 Date of Evaluation: 07/25/2024 ED Supervising Physician: Patric Guillen MD I independently examined and evaluated Nick San. This will serve as my Supervisory note and shared attestation. I did perform a substantive portion of the visit including all aspects of the Medical Decision Making. I wore appropriate PPE for the entirety of this encounter. History: In brief, Nick San is a 64 y.o. male that presents to the emergency department complaining ofblood in his urine. The patient has had multiple hospitalizations for acute kidney injury and issues with urination at [facility]. Patient is somewhat confused. Is not clear whether this represents a change for him. Focused exam: On examination the patient is an older male found lying on a cart. He is alert and oriented. He is afebrile. Vital signs are within normal limits. He is confused. Chest is clear. Normalcardiac exam. Abdomen is soft nontender. Differential Diagnosis: Differential diagnosis includes urinary tract infection, urinary outlet obstruction, metabolic abnormality, acute kidney injury, dehydration. Diagnostic testing undertaken, as well as those tests considered but not ordered: Laboratory work is obtained on this patient. A bladder scan demonstrated 225 cc of urine inside thebladder. Pryor catheter will be placed. ED testing and evaluation will be obtained to help differentiate these diagnostic possibilities anddetermine the most likely cause. Brief ED course/MDM: [...] are any questions or concerns please feel freeto contact the dictating provider for clarification.) Patric Guillen MD [employer] Patric Guillen MD 07/25/24 1526 documented in this [facility]10-21-2024 Emergency department Note* Lisa Pelayo RN - 07/25/2024 10:31 PM EDT Preventative foam border dressing placed on sacrum and heels. Patient agreeable to being turned with wedges. Declined gown. Lisa Pelayo RN 07/25/24 7044 [facility]Xpixbp19-94-1920 Emergency department Note* Kamilla Ratliff RN - 07/25/2024 10:08 PM EDT Admitting at bedside. Kamilla Ratliff RN 07/25/242208 [facility] HospitalUqpbft52-46-6633 Emergency department Note* Lisa Pelayo RN - 07/25/2024 9:00 PM EDT Patient cot switched to inpatient hospital bed. Lisa Pelayo RN 07/25/242100 [facility] HospitalFziscz81-36-8481 Emergency department Note* Lisa Pelayo RN - 07/25/2024 8:00 PM EDT Pt declined wedges when offered. Lisa Pelayo RN 07/25/242205 [facility] HospitalHvrvtg60-25-7386 Emergency department Note* Kamilla Ratliff RN - 07/25/2024 7:29 PM EDT Report from JASON Hollingsworth. Kamilla Ratliff RN 07/25/241928 [facility] HospitalZhokxw93-60-4489 History and physical note* Baldev Bosch MD - 07/25/2024 6:21 PM EDT Internal Medicine: Med Team Initial History and Physical Nick San : 1960(64 y.o.) Date: July 25, 2024 TEAM: C Attending: Dr. Bosch Subjective: Chief Complaint: blood in his urine HPI Nick San is a 64 y.o. 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 on 07/25/2024 from home. Pt w/hematuria for past three days, associated with dysuria. Pt daughter picked him up today to bring him to [facility], however pt was weak and nearly fell climbing into her truck. He was helped into the truck by a bystander. She also reports pt has had some confusion for a couple of days. He does note he has had hematuria in the past and wasfound to have multiple renal stones. He is [...] (hypertension) Mild depression Parkinson disease with dyskinesia ([facility]) T2DM (type 2 diabetes mellitus) ([facility]) No past surgical history on file. No [...] 65 Resp: 18 18 20 Temp: 37.2 C (98.9 F) TempSrc: Oral SpO2: 95% 96% 96% Weight: [...] is no right CVA tenderness, left CVA tendernessor guarding. Musculoskeletal: Right lower leg: Edema present. [...] multiple recent admissions for urinary retention and coud catheter placed on arrival to the ED. [...] Will recommend that the blood sample on 07/25at 18:56 should be disregarded entirely. Urology has [...] given risk of hypotension with septic shock Xnk-eztdzet-bessiytax type 2 diabetes -Check hemoglobin A1c and will start low-dose sliding scale -Hypoglycemia protocol in place Normocytic anemia -Will check iron studies -Check daily CBC - Goals of Care: FULL CODE - DVT Prophylaxis: SCD's or Sequential Compression Device - GI Prophylaxis: Protonix daily - Diet: General - BMI Classification: Body mass index is 30.52 kg/m . Obesity (BMI >30) - Disposition: Admit to Telemetry. - Given the signs and symptoms associated with his primary diagnosis in the setting of his comorbidconditions, he is expected to require >48 hrs of hospital care (i.e. inpatient level care). On 07/26/24 I personally examined the patient and reviewed the case with the resident and or med student. I have personally taken a history, examined the patient, and performed the associated medicaldecision making activities. I have reviewed & verified [...] with: Inpatient pharmacist regarding initial medication reconciliation [facility] [id number] NoteInternal Medicine: Med Team Initial History and Physical Nick San : 1960(64 y.o.) Date: July 25, 2024 TEAM: C Attending: Dr. Bosch Subjective: Chief Complaint: blood in his urine HPI Nick San is a 64 y.o. 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 on 07/25/2024 from home. Pt w/hematuria for past three days, associated with dysuria. Pt daughter picked him up today to bring him to [facility], however pt was weak and nearly [...] (HCC) T2DM (type 2 diabetes mellitus) (HCC) No past surgical history on file. No [...] 07/25/2024 25 (H) 9 - 20 mg/dL F (more content not included)...[facility]10-21-2024 History and physical note* Baldev Bosch MD - 07/25/2024 6:21 PM EDT Internal Medicine: Med Team Initial History and Physical Nick San : 1960(64 y.o.) Date: July 25, 2024 TEAM: Madai Attending: Dr. Bosch Subjective: Chief Complaint: blood in his urine HPI Nick San is a 64 y.o. 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 on 07/25/2024 from home. Pt w/hematuria for past three days, associated with dysuria. Pt daughter picked him up today to bring him to [facility], however pt was weak and nearly fell climbing into her truck. He was helped into the truck by a bystander. She also reports pt has had some confusion for a couple of days. He does note he has had hematuria in the past and wasfound to have multiple renal stones. He is [...] dyskinesia (HCC) T2DM (type 2 diabetes mellitus) ([facility]) No past surgical history on file. No [...] 65 Resp: 18 18 20 Temp: 37.2 C (98.9 F) TempSrc: Oral SpO2: 95% 96% 96% Weight: [...] is no right CVA tenderness, left CVA tendernessor guarding. Musculoskeletal: Right lower leg: Edema present. [...] multiple recent admissions for urinary retention and coud catheter placed on arrival to the ED. [...] Will recommend that the blood sample on 07/25at 18:56 should be disregarded entirely. Urology has [...] given risk of hypotension with septic shock Ncx-gqnzgsg-tlnyoyqes type 2 diabetes -Check hemoglobin A1c and will start low-dose sliding scale -Hypoglycemia protocol in place Normocytic anemia -Will check iron studies -Check daily CBC - Goals of Care: FULL CODE - DVT Prophylaxis: SCD's or Sequential Compression Device - GI Prophylaxis: Protonix daily - Diet: General - BMI Classification: Body mass index is 30.52 kg/m . Obesity (BMI >30) - Disposition: Admit to Telemetry. - Given the signs and symptoms associated with his primary diagnosis in the setting of his comorbidconditions, he is expected to require >48 hrs of hospital care (i.e. inpatient level care). On 07/26/24 I personally examined the patient and reviewed the case with the resident and or med student. I have personally taken a history, examined the patient, and performed the associated medicaldecision making activities. I have reviewed & verified [...] with: Inpatient pharmacist regarding initial medication reconciliation documented in this [facility]10-21-2024 Consult note* Vonniekurt Holguin [facility] - 07/25/2024 6:20 PM EDT Images from the original note were not included. Pharmacy Managed Vancomycin Dosing Service Consult Note Consult Date: 07/25/24 Patient Name: Nick San Allergies: Hydrocodone-acetaminophen and Tramadol Age: 64 y.o. Sex: male Estimated body mass index is 30.52 kg/m as calculated from the following: Height as [...] creatinine, and vancomycin levels interfaced automatically to [employer] and data has been analyzed and interpreted. [...] DATE: 07/25/24 TIME: 6:20 PM Vonnie Holguin RPh Clinical Pharmacist Available via Secure Chat [facility] [id number] Emergency department Note* Kamilla Ratliff RN - 07/25/2024 6:11 PM EDT Report to JASON Hollnigsworth. Kamilla Ratliff RN 07/25/24 1811 [facility] HospitalFtcluv98-29-0937 Emergency department Note* Kamilla Ratliff RN - 07/25/2024 6:04 PM EDT Meal tray at bedside. Kamilla Ratliff RN 07/25/24 1804 [facility] HospitalEljops68-24-4805 Emergency department Note* Kamilla Ratliff RN - 07/25/2024 5:21 PM EDT Patient and family provided menu and hospital phone to order dinner tray. Kamilla Ratliff RN 07/25/24 1722 [facility] HospitalPjoebt49-65-2789 Emergency department Note* Kamilla Ratliff RN - 07/25/2024 5:02 PM EDT Report from JASON Hollingsworth. Kamilla Ratliff RN 07/25/24 1702 [facility] HospitalGewwkz17-53-5166 Emergency department Note* Jade Sosa RN - 07/25/2024 3:49 PM EDT Lab called with lactic acid 4.4, same reported to Dr. Guillen and Dr. Escalante via secure chat Jade Sosa RN 07/25/24 1549 [facility] HospitalAoxuat31-58-7389 Emergency department Note* Edel Adorno RN - 07/25/2024 3:38 PM EDT Coude catheter placed in pt per Dr. Escalante for urinary retention. Urine was clear and yellow with noblood or clots. Urine sample sent off to lab. Edel Adorno RN 07/25/24 1538 [facility] HospitalDhqoko29-57-2070 Emergency department Note* Edel Adorno RN - 07/25/2024 3:18 PM EDT 225 mLs of urine in the bladder. Dr. Escalante notified about result. Edel Adorno RN 07/25/24 1518 [facility] HospitalZeqjal09-94-9887 Emergency department Note* Edel Adorno RN - 07/25/2024 2:02 PM EDT Pt tried to urinate into urinal but was un able to go. Edel Adorno RN 07/25/24 1402 [facility] HospitalRebxjj21-30-8067 Physician Emergency department Note* Marlene Escalante MD - 07/25/2024 12:25 PM EDT EMERGENCY DEPARTMENT ENCOUNTER Pt Name: Nick San Birthdate 1960 Date of evaluation: 07/25/2024 ED [...] the entirety of this encounter. HPI Nick San is a 64 y.o. who presents to [...] mouth in the morning and 1 tablet atnoon and 1 tablet in the evening. CITALOPRAM [...] mouth in the morning and 1 tablet inthe evening. SPIRONOLACTONE (ALDACTONE) 25 MG TABLET Take 25 mg by mouth in the morning. TAMSULOSIN (FLOMAX) 0.4 MG 24 HR CAPSULE Take 0.4 mg by mouth in the morning. ALLERGIES Hydrocodone-acetaminophen and Tramadol FAMILY HISTORY No family history on file. SOCIAL HISTORY Social History Socioeconomic History Marital status: Social Determinants of Health Food Insecurity: No Food Insecurity (07/07/2024) Received from [facility] Hunger Vital Sign Worried About Running Out of Food in the Last Year: Never true Ran Out of Food in the Last Year: Never true Transportation Needs: No Transportation Needs (07/07/2024) Received from [facility] PRAPARE - Transportation Lack of Transportation (Medical): No Lack of Transportation (Non-Medical): No Housing Stability: Low Risk (07/07/2024) Received from [facility] Housing Stability Vital Sign Unable to Pay for Housing in the Last Year: No Number of Times Moved in the Last Year: 1 Homeless in the Last Year: No SCREENINGS Eugenio Coma Scale Best Eye Response: Spontaneous Best Verbal Response: Oriented Best Motor Response: Follows commands [place] Coma Scale Score: 15 PHYSICAL EXAM ED Triage Vitals [07/25/24 1246] Temp Heart Rate Resp BP 37.2 C (98.9 F) 65 18 109/60 SpO2 Temp Source Heart [...] Culture. Procedure Abnormality Status --------- ------ Complete Urinalysis[[id number]] Abnormal Final result Please view results for [...] 65 Resp: 18 18 20 Temp: 37.2 C (98.9 F) TempSrc: Oral SpO2: 95% 96% 96% Weight: 102 kg (225 lb) Height: 1.829 m (6') The patient presented with a chief complaint of hematuria. Our workup consisted of ordering/reviewing CBC, BMP, urinalysis, lactic acid. CBC revealed mild leukocytosis with WBC 11.7, mild anemia withhemoglobin of 11 which appears stable to previous [...] acid was elevated at 4.4. Although the patie nt did not meet SIRS criteria, given patient's [...] confirmed or suspected to move forward with diagnosisof sepsis. Must select at least one: [x] [...] Patient Position: Lying) Pulse 65 Temp 37.2 C (98.9 F) (Oral) Resp 20 Ht 1.829 m (6') Wt 102 kg (225 lb) SpO2 96% BMI 30.52 kg/m Cardiac examination significant for: Regular rate and [...] (premix) (1,250 mg IntraVENous New Bag 07/25/24 1714) cefepime (Maxipime) 2,000 mg in sodium chloride [...] are any questions or concerns please feel freeto contact the dictating provider for clarification.) Marlene Escalante MD (electronically signed) Emergency Medicine Provider Marlene Escalante MD Resident 07/25/24 1727 Marlene Escalante MD Resident 07/25/24 1740 Cosigned by Patric Guillen MD at 07/26/2024 7:06 AM EDT [employer] Phone: 1(265) 670-122210-21-2024 Physician Emergency department Note* Patric Guillen MD - 07/25/2024 12:25 PM EDT Emergency Department Encounter [facility] EMERGENCY DEPT Patient: Nick San : 1960 Date of Evaluation: 07/25/2024 ED Supervising Physician: Patric Guillen MD I independently examined and evaluated Nick San. This will serve as my Supervisory note and shared attestation. I did perform a substantive portion of the visit including all aspects of the Medical Decision Making. I wore appropriate PPE for the entirety of this encounter. History: In brief, Nick San is a 64 y.o. male that presents to the emergency department complaining ofblood in his urine. The patient has had multiple hospitalizations for acute kidney injury and issues with urination at [facility]. Patient is somewhat confused. Is not clear whether this represents a change for him. Focused exam: On examination the patient is an older male found lying on a cart. He is alert and oriented. He is afebrile. Vital signs are within normal limits. He is confused. Chest is clear. Normalcardiac exam. Abdomen is soft nontender. Differential Diagnosis: Differential diagnosis includes urinary tract infection, urinary outlet obstruction, metabolic abnormality, acute kidney injury, dehydration. Diagnostic testing undertaken, as well as those tests considered but not ordered: Laboratory work is obtained on this patient. A bladder scan demonstrated 225 cc of urine inside thebladder. Pryor catheter will be placed. ED testing and evaluation will be obtained to help differentiate these diagnostic possibilities anddetermine the most likely cause. Brief ED course/MDM: [...] are any questions or concerns please feel freeto contact the dictating provider for clarification.) Patric Guillen MD [employer] Patric Guillen MD 07/25/24 1526 [employer] Phone: [phone]) 563-634010-05-2024 NoteHNO ID: [id number] Author: IRMA SALAZAR APRN.[facility] Service: Hospital Medicine Author Type: Nurse Practitioner Type: Progress Notes Filed: 07/09/2024 09:47 Note Text: DEPARTMENT OF HOSPITAL MEDICINE PROGRESS NOTE SERVICE DATE: 07/09/2024 SERVICE TIME: 9:35 AM Hospital Medicine/Primary Attending: Aurelio Granda MD NIGHT AND WEEKEND COVERAGE: [facility] Medicine MARI AD 7a-7p Page [phone] 7p-7a Subjective INTERVAL HPI: - overnight patient [...] Nausea and vomiting Hypotension HOSPITAL COURSE: Nick San is a 64 year old male with PMH DMII, BPH, Parkinson's disease, depression, diastolic HF, admitted to [facility] on 06/22/2024 for elective left total [...] without much success. Patient was discharged with Pryor in place due to acute urinary retention noted on admission to [facility]. Patient was evaluated by therapy, thus patient was transf (more content not included)...[facility]10-05-2024 NoteHNO ID: [id number] Author: KAMAR MORSE APRN.[employer] Service: Hospital Medicine Author Type: Nurse Practitioner Type: Plan of Care Filed: 07/09/2024 05:09 Note Text: July 08, 2024 [id number] -Notified by bedside RN that patient continues [...] 2024 12:13 AM Addendum July 08, 2024 2333 -EKG sent via picture by RN and [...] Kamar Morse APRN.CNP July 09, 2024 12:15 [facility]10-04-2024 NoteHNO ID: [id number] Author: JULIANNA CONTRERAS RN Service: Care Management Author Type: Registered Nurse Type: Care Mgt Progress Note Filed: 07/08/2024 13:36 Note Text: CASE MANAGEMENT PROGRESS NOTE SERVICE DATE: 07/08/2024 SERVICE TIME: 1:33 PM Met with pt at bedside to discuss discharge planning. Pt plans to go to [place] to stay with his daughter Carmina. Spoke with Carmina on phone in pts room. Carmina is coming back to [place] this week and will stay with pt and see how he progresses then plans to take him to [place] with her. Both pt and daughter agreeable to [facility]. Pt and daughter aware of insurance review due 07/11 and insurance will deny any further skilled stay. Plan for discharge home 07/14. Will f/u with daughter Wednesday 07/11. SIGNATURE: Julianna Contreras RN PATIENT NAME: Nick San DATE: July 08, 2024 TIME: 1:33 PM PAGER/CONTACT #: [phone] NoteHNO ID: [id number] Author: IRMA SALAZAR APRN.CNP Service: Hospital Medicine Author Type: Nurse Practitioner Type: Progress Notes Filed: 07/08/2024 13:26 Note Text: DEPARTMENT OF HOSPITAL MEDICINE PROGRESS NOTE SERVICE DATE: 07/08/2024 SERVICE TIME: 1:16 PM Hospital Medicine/Primary Attending: Aurelio Granda MD NIGHT AND WEEKEND COVERAGE: [facility] Medicine MARIA D 7a-7p Page [phone] 7p-7a Subjective INTERVAL HPI: - patient sitting in common area, visiting with his family. - reports pain is more controlled since extra dose of tylenol. Requesting to not use Oxycodone, but okay to try Tramadol. - asking about flying vs. Driving to [place] once he is DCd to stay with [...] Nausea and vomiting Hypotension HOSPITAL COURSE: Nick San is a 64 year old male with PMH DMII, BPH, Parkinson's disease, depression, diastolic HF, admitted to [facility] on 06/22/2024 for elective left total [...] without much success. Patient was discharged with Pryor in place due to acute urinary retention noted on admission to [facility]. Patient was evaluated by therapy, thus patient was transferred to [facility] for further services. Patient was progressing well while at [facility] and successfully passed voiding trial. On 07/02/2024 patient had hypotensive episode without acute symptoms and routine labs were hector (more content not included)...[facility] 07-05-2024 NoteHNO ID: [id number] Author: YOLANDA PARK RN Service: Nursing Author Type: Registered Nurse Type: Nursing Progress Note Filed: 07/05/2024 15:53 Note Text: Pt's daughter Carmina would like to be notified if pt needs to be [facility] NoteHNO ID: [id number] Author: BRITTANY WHYTE RN Service: Nursing Author Type: Registered Nurse Type: Nursing Progress Note Filed: 07/05/2024 14:20 Note Text: Other: Pt left the unit via stretcher. Condition stable. Belongings was taken by daughter.[facility] HospitalIwzltrnk80-89-2689 NoteHNO ID: [id number] Author: BRITTANY WHYTE RN Service: Nursing Author Type: Registered Nurse Type: Nursing Progress Note Filed: 07/05/2024 13:08 Note Text: Other: Report called to Yolanda from [facility] HospitalMcgubpub11-62-0249 NoteHNO ID: [id number] Author: ABILIO YOU DO Service: Hospital Medicine Author Type: Physician Type: Progress Notes Filed: 07/04/2024 16:08 Note Text: DEPARTMENT OF HOSPITAL MEDICINE PROGRESS NOTE SERVICE DATE: 07/04/2024 SERVICE TIME: 3:50 PM Hospital Medicine/Primary Attending: Abilio You DO NIGHT AND WEEKEND COVERAGE: [place] COVERAGE: Days: [phone], please page attending physician. Nights: [phone], please page [place] Hospitalist Night coverage pager [phone]. Subjective INTERVAL HPI: feels better today. Daughter and son in law are at bedside. No fever overnight. Reports he has been urinating without difficulty. No abdominal pain and tolerating regular diet with good appetite. Daughter clarifies that he is not nauseated currently and has been eating fine. It was the first few days after surgery that he struggled. Denies any CP, SOB rash or bruising. Pain in leg is tolerable Current Facility-Administered Medications Medication Dose Route Frequency atorvastatin 20 mg tab(s) (LIPITOR) 20 mg ORAL AT BEDTIME citalopram 40 mg tab(s) (CeleXA) 40 mg ORAL DAILY carbidopa-levodopa 25-100 mg 1 tablet (SINEMET 25-100) 1 tablet ORAL 3 times per day tamsulosin 0.4 mg cap(s) (FLOMAX) 0.4 mg ORAL DAILY cloNIDine HCl 0.2 mg tab(s) (CATAPRES) 0.2 mg ORAL BID dextrose 40 % 15 g 15 g ORAL PRN Or glucagon 1 mg injection 1 mg INTRAMUSCULAR PRN Or dextrose 10% iv bolus 12.5 g INTRAVENOUS PRN NaCl 0.9% iv flush bag 20 mL INTRAVENOUS PRN ondansetron orally disintegrating 4 mg tab(s) (ZOFRAN ODT) 4 mg ORAL q 6 H PRN Or ondansetron (PF) 4 mg injection (ZOFRAN) 4 mg INTRAVENOUS q 6 H PRN docusate sodium 100 mg cap(s) (COLACE) 100 mg ORAL BID polyethylene glycol 3350 17 g packet 17 g ORAL DAILY acetaminophen 650 mg tab(s) (TYLENOL) 650 mg ORAL q 6 H PRN oxyCODONE IR 5 mg tab(s) (ROXICODONE) 5 mg ORAL q 6 H PRN insulin lispro injection (rapid acting) (ADMElog) SUBCUTANEOUS w MEALS cefTRIAXone iv piggyback 1 g in dextrose (iso-osmotic) 50 mL (ROCEPHIN) 1 g INTRAVENOUS q 24 H melatonin 3 mg tab(s) 3 mg ORAL AT BEDTIME PRN amLODIPine 10 mg tab(s) (NORVASC) 10 mg ORAL DAILY Objective PHYSICAL EXAM: BP 120/61 Pulse 74 Temp (Src) 99.3 (Axillary) Resp 18 Ht 5' 11 (1.80m) Wt 222 lb 10.6 oz (101.0kg) SpO2 95% BMI 31.07 kg/(m2). O2 Therapy: Room Air Physical Exam Performed GENERAL: Alert, no distress, cooperative LUNGS: Lungs clear to auscultation, Good diaphragmatic excursion CARDIAC: Normal S1 and S2; no rubs, murmurs, or gallops ABDOMEN: Abdomen soft, non-tender, BS normal, EXTREMITIES: Extremities normal, no deformities, edema, clubbing or skin discoloration. Lines, Drains, and Airways Line Duration Peripheral 07/03/24 1800 [facility] Short Left Forearm 22 Gauge <1 day DATA: Diagnostic tests reviewed for today's visit: Most recent labs Most recent imaging Assessment/Plan Problem List Assessment AND Plan YUMIKO (acute kidney injury) (HCC) UTI (urinary tract infection) Nausea and vomiting Status post total left knee replacement Chronic combined systolic and diastolic heart failure (HCC) Essential (primary) hypertension Type 2 diabetes mellitus without complication, without long-term current use of insulin (HCC) Parkinson's disease with dyskinesia (HCC) HOSPITAL COURSE: Nick San is a 64 year old male presented with past medical history of Parkinsonism, spinal stenosis, HTN, DM2, chronic combined systolic and diastolic CHF (EF 54% grade 1 diastolic dysfunction). In 03/2024 he was found to have HFrEF (EF45%) and seen by cardiology. This was felt to be due HTN. Amyloid workup was negative and his EF improved on GDMT. He underwent TKA on 06/22/[address] Ge at [facility]. His post op course was complicated by YUMIKO with peak telephone lineman unknown but was 1.48 at d/c. He also had urinary retention and was discharged to [facility] with a pryor catheter. The pryor catheter was able to be removed and he denies any difficulty urinating. He was noted to have an episode of hypotension with labs showing new leukocytosis YUMIKO and imaging suggestive of cholecystitis and referred for admission Principal Problem: YUMIKO (acute kidney injury) (HCC) Baseline telephone lineman 1.1-1.2 with recent episode of YUMIKO post knee replacement CT A/P without signs of obstruction. No NSAIDs given but noted hypotension with multiple recent med changes. Suspect hypovolemic as he improved with IVF vs hypotensive episodes Stop IVF today and observe Hold lisinopril/HCTZ Monitor kidney function Active Problems: UTI (urinary tract infection) Due to pryor catheter recently in place Continue on ceftriaxone Urine culture with GNB, insiginificant colony count Check PVR (451 today) will increase flomax dose Nausea and vomiting With poor oral intake since knee surgery CT a/P suggestive of cholecystitis but LFTs normal and no tenderness on exam R (more content not included)...[facility] [id number] (AGENT OF COVID-19) RNA: Not detected INFLUENZA A RNA: Not detected INFLUENZA B RNA: Not detected RESPIRATORY SYNCYTIAL VIRUS (RSV) RNA: Not detectedC[facility] Clinic [facility] HospitalComment on above:Performed By: #### [id number] ####[facility] LABORATORYCLIA [id number] [place] [address] [facility]09-29-2024 NoteHNO ID: [id number] Author: DIPIKA OVERTON LPN Service: Nursing Author Type: LICENSED NURSE Type: Nursing Progress Note Filed: 07/03/2024 09:37 Note Text: Left via stretcher to [facility] in stable condition. Report update called per charge nurse.[facility]09-29-2024 NoteHNO ID: [id number] Author: KELSIE HERNANDEZ, JASON Service: Nursing Author Type: Registered Nurse Type: Nursing Progress Note Filed: 07/03/2024 04:44 Note Text: Report called to [facility] on [address] Estimated flower buncher or picker time 0500.[facility]09-28-2024 NoteHNO ID: [id number] Author: JAYLENE RIVERA PA Service: Hospital Medicine Author Type: Physician Car Shagger Type: Plan of Care Filed: 07/03/2024 01:55 Note Text: BP 109/56 Pulse 86 Temp 36.8 ?C (98.2 ?F) (Oral) Resp 16 Ht 180.3 cm (5' 11) Wt 100.3 kg (221 lb 1.9 oz) SpO2 94% BMI 30.84 kg/m? Notified by RN that patient had low blood pressure at 94/56 with 84/58 manual after recheck. Patient denies any new symptoms to RN just continues to complain of leg pain. Denies any chest pain. I ordered 500cc LR bolus for the patient and repeat labs including CBC, BMP, and sepsis lactate. Patient lactate resulted at 1.5. CBC showed WBC elevation from 9.97 yesterday to 24.16 today. Also showed renal function elevation from 1.30 yesterday to 1.76 today. Na 132. Per RN, patient only complaining of chronic low back pain and left foot pain. Patient states low back pain is not different than normal. Denies any lower extremity numbness/tingling outside of baseline. He was able to urinate and provide a sample for UA for the RN. Blood pressure improved after bolus to 118/63. Will check CRP, CT AP w/out contrast, and CXR for thorough workup of leukocytosis without fever. RN denies that there is any redness or warmth to left lower ankle/knee. Jaylene Rivera PA-C 11:18 PM July 02, 2024 UA showed >25 WBCs, trace LE, few bacteria. Follow urine culture. Starting rocephin 1g IV daily. Jaylene Rivera PA-C 11:39 PM July 02, 2024 CXR resulted and showed: Low lung volumes. Otherwise, no acute findings. CT AP showed: Mildly distended gallbladder with mild wall thickening. No gallstone identified. Acalculous cholecystitis is not excluded. Correlate for RIGHT upper quadrant pain and consider ultrasound for further evaluation. Bilateral nonobstructing renal stones. Antibiotics expanded to rocephin and flagyl given cholecystitis possibility. RN palpated patient abdomen and he denied RUQ pain but reported some RUQ pain. I spoke with the NOM and confirmed that ultrasound cannot be guaranteed on the weekend and normally is not possible at [facility]. Given patient need for RUQ to rule out cholecystitis in combination with worsening leukocytosis and renal function elevation that may require nephrology consultation, I believe patient would benefit from transfer to [facility] for higher level of care. I called and spoke with the patient and explained the findings to him. I explained the need to transfer him and he was agreeable and preferred [facility]. He asked that I call to inform his daughter of this. I attempted to reach his daughter but there was no answer. I placed transfer order and accepted patient to [facility]. Jaylene Rivera PA-C 1:55 AM July 03[facility]09-27-2024 [facility] Medical Records Department [address] [place] [address] Discharge Summary 07/01/24 1133 MR#: [id number] Acct: [id number] Name: NICK SAN Rep #: [id number] : 1960 64 From: Mac Luma KUMAR PCP: Status:DIS IN Location: [facility]3 [id number] Providers Date of Admission: 06/22/24 Consultations 06/22/24 13:12 Consult: Hospitalist Routine Consulting Provider: Noah Oleary Reason for Consult: post op medical management EMERGENT Consult: No MD Notified: Yes Date Notified: 06/22/24 Time Notified: 14:44 Method of Notification: Text Reason For Visit: Left Total Knee Replacement Robotic Arm Assisted Diagnosis Discharge Diagnosis (1) S/P total knee arthroplasty: Status: Acute Code(s): Z96.659 - Presence of unspecified artificial knee joint Qualifiers: Laterality: left Qualified Code(s): Z96.652 - Presence of left artificial knee joint Plan Postop day #6 left total knee arthroplasty PT OT weightbearing as tolerated encourage knee range of motion Pryor catheter management by medical team. Will add milk of magnesia for his constipation. DVT prophylaxis SCDs MIRANDA tyson Eliquis 2.5 mg twice daily for 2 weeks postop Case management is consulted for DC planning awaiting transfer. Orthopedically stable when bed available DC when bed available at SNF. . Medications at Discharge Home Medications aspirin 81 mg tablet,delayed release 81 mg PO DAILY HEART HEALTH 02/01/24 dapagliflozin propanediol 10 mg tablet 10 mg PO DAILY CHOLESTEROL 03/17/24 spironolactone 25 mg tablet 25 mg PO QDAY WATER PILL 03/17/24 atorvastatin 10 mg tablet (Lipitor) 20 mg PO QHS CHOLESTEROL 05/23/24 carbidopa 25 mg-levodopa 100 mg tablet 1 tab PO TID PARKINSON 05/23/24 amlodipine 10 mg tablet 10 mg PO DAILY BP #90 tabs 05/31/24 citalopram 40 mg tablet 40 mg PO DAILY DEPRESSION #90 TABLETS 05/31/24 clonidine HCl 0.2 mg tablet 0.2 mg PO BID BP #180 tabs 05/31/24 lisinopril 20 mg-hydrochlorothiazide 12.5 mg tablet 1 tab PO DAILY BP #90 tabs 05/31/24 tamsulosin 0.4 mg capsule 0.4 mg PO QHS PROSTATE #90 caps 05/31/24 acetaminophen 500 mg tablet 1,000 mg (2 x 500 mg) PO Q8 #90 tabs 06/24/24 apixaban 5 mg tablet (Eliquis) 2.5 mg (1/2 x 5 mg) PO BID #28 tabs 06/24/24 gabapentin 100 mg capsule 100 mg PO TIDCM PRN foot restlessness/itching/burn #60 caps 06/24/24 oxycodone 5 mg tablet 5 - 10 mg (1 - 2 x 5 mg) PO Q4H PRN PRN Pain Score 4-10 7 days #60 tabs 06/24/24 Hospital Course Operations total knee replacement Summary of Care Provided Hospital Course: Who has long history of degenerative joint disease to the knee who has failed conservative treatment and wished to undergo elective total knee arthroplasty. Patient underwent the aformentioned procedure on the admission date without any intraoperative complications. Patient did receive pre- and postoperative antibiotics which were discontinued within 23 hours postoperatively. . pain was controlled with IV and transition to p.o. pain medication Patient will be discharged with oxycodone and will continue Tylenol as well. Patient had minimal intraoperative blood loss and 2gm tranexamic acid was administered there was no need for postoperative blood transfusion Patients vital signs remained stable. Patient was started on both mechanical and chemical DVT per prophylaxis postoperatively in the form of SCDs MIRANDA hose and [Eliquis 2.5 mg twice daily for which she will continue for 2 additional weeks post hospital discharge]. thigh high miranda hose placed over top of the meplix silver dressing. Patient did require 3 straight catheterizations for urinary retention and then a Pryor catheter was placed, for which she will follow-up with urology to have removed, hospitalist was consulted on this case. His dressing was changed on postop day #3 and should continue to be cleaned and changed daily. Patient did require assistance with ambulation as he was weak and newly diagnosed with Parkinson's family was not comfortable with him being discharged home and neither was I he was initially denied rehab but was approved for group home facility and after much delay secondary to insurance companies he was finally discharged to a group home facility. Do not not to submerge for 3 weeks. Patient will follow-up in the office in 2 weeks postop. Physical Exam Const alert, oriented x3 and no apparent distress General Appearance: cooperative Orientation / Consciousness: Negative for confused Extremity Extremity Narrative: Left knee dressing clean dry intact compartments soft neurovascular intact EHL tibialis anterior gastrocsoleus intact sensation light touch palpable pedal pulse Weight / BMI Weight Weight: 245 lb Body Mass Index (BMI) 36.1 ABG / Lab / Microbiology Data 06/25/24 04:25 06/29/24 05:38 Microbiology: Microbiology (more content not included)...[facility]09-26-2024 Note HNO ID: [id number] Author: IRMA SALAZAR APRN.CNP Service: Hospital Medicine Author Type: Nurse Practitioner Type: Plan of Care Filed: 06/30/2024 19:11 Note Text: DEPARTMENT OF HOSPITAL MEDICINE PLAN OF CARE NOTE SERVICE DATE: June 30, 2024 SERVICE TIME: 7:10 PM Hospital Medicine/Primary Attending: Department of Hospital Medicine NIGHT AND WEEKEND COVERAGE: [facility] Coverage PLAN OF CARE - patient had success with tap water enema. Had large BM 06/30/2024 - will plan to remove pryor in AM for voiding trial, orders place for 07/01/2024. SIGNATURE: Irma Salazar APRN.CNP PATIENT NAME: Nick San DATE: June 30, 2024 TIME: 7:10 [facility]09-26-2024 NoteHNO ID: [id number] Author: JULIANNA CONTRERAS RN Service: Care Management Author Type: Registered Nurse Type: Care Mgt Progress Note Filed: 06/30/2024 09:19 Note Text: CASE MANAGEMENT PROGRESS NOTE SERVICE DATE: 06/30/2024 SERVICE TIME: 9:18 AM [facility] 07/06 10:45am SIGNATURE: Julianna Contreras RN PATIENT NAME: Nick San DATE: June 30, 2024 TIME: 9:18 AM PAGER/CONTACT #: [phone] 06-29-2024 NoteHNO ID: [id number] Author: ROSALBA RIVAS APRN.CNP Service: Hospital Medicine Author Type: Nurse Practitioner Type: Plan of Care Filed: 06/29/2024 14:13 Note Text: DEPARTMENT OF HOSPITAL MEDICINE PLAN OF CARE NOTE SERVICE DATE: June 29, 2024 SERVICE TIME: 2:02 PM Hospital Medicine/Primary Attending: Department of Hospital Medicine NIGHT AND WEEKEND COVERAGE: [facility] Medicine Coverage PLAN OF CARE Nick San is a 64 year old male with PMH significant for HTN, HFrEF, T2DM, Parkinson's disease, and left knee OA, presented to [facility] for elective Left TKA. His post op course was uncomplicated. He was started on Eliquis 2.5mg BID for DVT prevention x 14 days. Pain was controlled with tylenol and oxycodone. He was evaluated by therapy and acute rehab was recommended but declined by insurance so he was subsequently transferred to [facility] for rehabilitation. Principle Problem: Aftercare - Hospitalization Dates: 06/22/2024-06/29/2024 - Hospitalization Diagnosis: Left knee OA s/p L TKA - Discharge Facility: [facility] - PT/OT Consult - Nutrition Consult - Case Management Consult for Discharge Planning - Pain Control: Scheduled tylenol and PRN oxycodone - DVT Prophylaxis: Eliquis 2.5mg BID x 14 days - PT/OT Restrictions: None, WBAT, encourage ROM - Current Living Situation: Uncertain - Code Status: Needs addressed SIGNATURE: Rosalba Rivas APRN.CNP PATIENT NAME: Nick San DATE: June 29, 2024 TIME: 2:02 [facility]09-18-2024 [facility] Medical Records Department [address] [place] [id number] History Physical Exam 06/22/24920 MR#: [id number] Acct: [id number] Name: NICK SAN Radha Rep #: [id number] : 1960 64 From: Mac Ge DO PCP: Status:ADM IN Location: [place] [address] History and Physical Date of Admission: 06/22/24 [facility] [address] [place] [address] [address] [place] [address] OFFICE VISIT Date of Service: 02/24/24 MR#: [id number] Acct: [id number] Name: NICK SAN Radha Rep #: [id number] : 1960 Provider: Dr. Mac Ge, DO Age/Sex: 64/M Location: [facility] Status: Signed Intake Vital Signs 02/08/2413:59 02/14/2414:45 Height 5 ft 9 in 5 ft 9 in Weight: 243 lb BMI 35.9 Intake Visit Reasons: RIGHT KNEE Chief Complaint: 3rd Euflexxa Injection Accompanied by: Self Is patient in pain?: Yes Allergies acetaminophen (From Vicodin) Allergy (Intermediate, Verified 02/24/24 13:17) Nausea/Vom/Diarrheahydrocodone (From Vicodin) Allergy (Intermediate, Verified 02/24/24 13:17) Nausea/Vom/Diarrheatramadol Allergy (Intermediate, Verified 02/24/24 13:17) Nausea/Vom/Diarrhea Medications ???Medication ???Instructions ???Recorded ???Confirmed ???Type amlodipine 10 mg tablet 10 mg PO DAILY #90 tabs 12/02/23 02/24/24 Rx citalopram 40 mg tablet 40 mg PO DAILY #90 TABLETS 12/02/23 02/24/24 Rx clonidine HCl 0.2 mg tablet 0.2 mg PO BID #180 tabs 12/02/23 02/24/24 Rx doxazosin 2 mg tablet 2 mg PO DAILY #90 tabs 12/02/23 02/24/24 Rx gabapentin 600 mg tablet 600 mg PO BID #60 tabs 12/02/23 02/24/24 Rx lisinopril 20 1 tab PO DAILY #90 tabs 12/02/23 02/24/24 Rx mg-hydrochlorothiazide 12.5 mg tablet meloxicam 7.5 mg tablet 7.5 mg PO DAILY #90 tabs 12/02/23 02/24/24 Rx metformin 500 mg tablet,extended 500 mg PO DAILY #90 tabs 12/02/23 02/24/24 Rx release 24 hr primidone 50 mg tablet 25 mg (1/2 x 50 mg) PO QHS #15 tabs 12/02/23 02/24/24 Rx propranolol 60 mg capsule,24 60 mg PO DAILY #90 caps 12/02/23 02/24/24 Rx hr,extended release tamsulosin 0.4 mg capsule 0.4 mg PO DAILY #90 caps 12/02/23 02/24/24 Rx atorvastatin 10 mg tablet (Lipitor) 10 mg PO QHS #30 tabs 01/14/24 02/24/24 Rx finasteride 5 mg tablet mg PO DAILY 01/14/24 02/24/24 History aspirin 81 mg tablet,delayed 81 mg PO DAILY 02/01/24 02/24/24 History release carvedilol 25 mg tablet 25 mg PO BID 02/01/24 02/24/24 History PFSH Medical History Cerebral vascular accident Bilateral primary osteoarthritis of knee Pain in both knees Family history of prostate problems Kidney stones Hypertension Diabetes History of back problems Arthritis Surgical History No pertinent past surgical history Family History Mother Hypertension Myocardial infarction Colon cancer CVA (cerebral vascular accident) Depression DiabetesBrother Colon cancer Cancer STOMACH CVA (cerebral vascular accident) HypertensionFather HypertensionSister Diabetes Social History household members: spouse current occupational status: retired current occupation: [employer] Smoking Status: Never smoker Electronic Cigarette Use: not used alcohol intake: never substance use type: does not use what type of physical activity do you participate in: none seatbelt use: sometimes do you feel safe at home: Yes HPI RIGHT KNEE Details: This documentation accurately reflects the service provided and the decisions made by me, Dr. Mac Ge, DO 02/24/24 0809. Part of today???s visit was documented by Jennifer Lucia ATC, acting as scribe. NICK SAN is a 64 year old M here today for right knee 3rd Euflexxa injection. Patient states the right knee is not bothering him much today but the left one is bothering him. He states his back is really bothering him so it takes his mind off of the knee pain. Patient states that they moved his college professor appointment up earlier than he had it previously scheduled for. Patient is interested in getting a TKA on the left knee. Ortho Exam General General: Yes no acute distress Neurologic: Yes alert and Yes oriented x3 Psychologic: Yes reasonable and appropriate Right Knee Skin/Wound: Yes CDI, No erythema, No ecchymosis and No swelling Knee ROM: No ROM-Extension -20 to 0 (-22) and Yes ROM-Flexion 0-140 (120) Examination: Yes Med jt line tenderness Stability: NML: Anterior Drawer, NML: Posterio (more content not included)... [facility]08-28-2024 Telephone encounter Note* Telephone Encounter - Miranda Del Rio MD - 06/01/2024 11:05 AM EDT These are all meds his PCP manages for him, should contact them to fill [facility] Work Phone: [phone]) 464-668708-28-2024 Miscellaneous Notes* Telephone Encounter - Miranda Del Rio MD - 06/01/2024 11:05 AM EDT These are all meds his PCP manages for him, should contact them to fill * Telephone Encounter - Yanique Roberto - 05/31/2024 2:55 PM EDT Prescription Refill Information The patient has been identified by name and date of : Yes Caregiver verified no other encounters exist for this prescription request: Yes Caregiver confirmed with patient/requestor that no other refills are due, in the near future, with this provider at this time: Yes The last office visit in the department: 12/08/2023 Does the patient have a future office visit with this provider/department: Yes Requested Prescriptions Pending Prescriptions Disp Refills amLODIPine (NORVASC) 10 mg tablet Sig: Take 1 tablet by mouth once daily. tamsulosin (FLOMAX) 0.4 mg Sig: Take 1 capsule by mouth once daily. cloNIDine HCl (CATAPRES) 0.2 mg tablet Sig: Take 1 tablet by mouth two times a day. citalopram (CELEXA) 40 mg tablet Sig: Take 1 tablet by mouth once daily. Yanique Roberto May 31, 2024 2:55 PM documented in [facility] encounterMer[facility]08-28-2024 Telephone encounter Note * Telephone Encounter - Steff Escobedo MA - 06/01/2024 9:33 AM EDT Patient requesting refills as follows via Mychart: TAMICA: 04/04/24 NOV: 08/08/24 Requested Prescriptions Pending Prescriptions Disp Refills carbidopa-levodopa (SINEMET 25-100) 25-100 mg per tablet 90 tablet 5 Sig: Take 1 tablet by mouth three times a day. Please review and advise. Steff Escobedo MA [facility]08-28-2024 Miscellaneous Notes* Telephone Encounter - Steff Escobedo MA - 06/01/2024 9:33 AM EDT Patient requesting refills as follows via Mychart: TAMICA: 04/04/24 NOV: 08/08/24 Requested Prescriptions Pending Prescriptions Disp Refills carbidopa-levodopa (SINEMET 25-100) 25-100 mg per tablet 90 tablet 5 Sig: Take 1 tablet by mouth three times a day. Please review and advise. Steff Escobedo MA documented in this encounterMercer [facility]08-27-2024 Telephone encounter Note * Telephone Encounter - Yanique Roberto - 05/31/2024 2:55 PM EDT Prescription Refill Information The patient has been identified by name and date of : Yes Caregiver verified no other encounters exist for this prescription request: Yes Caregiver confirmed with patient/requestor that no other refills are due, in the near future, with this provider at this time: Yes The last office visit in the department: 12/08/2023 Does the patient have a future office visit with this provider/department: Yes Requested Prescriptions Pending Prescriptions Disp Refills amLODIPine (NORVASC) 10 mg tablet Sig: Take 1 tablet by mouth once daily. tamsulosin (FLOMAX) 0.4 mg Sig: Take 1 capsule by mouth once daily. cloNIDine HCl (CATAPRES) 0.2 mg tablet Sig: Take 1 tablet by mouth two times a day. citalopram (CELEXA) 40 mg tablet Sig: Take 1 tablet by mouth once daily. Yanique Roberto May 31, 2024 2:55 PM [facility]08-23-2024 Telephone encounter Note* Telephone Encounter - Martha Dockery RPh - 05/27/2024 1:15 PM EDT Noted patient canceled pharmacy HF visit on 05/26. Called patient to rescheduled missed appointment and patient did not answer. Left VM to please call pharmacy HF clinic back at [phone] to rescheduled pharmacy HF visit. Also sent patient MyChart message. Will follow up in 1 week if no call backreceived. Noted appointments with Dr. Jensen also cancelled. Martha Dockery PharmD, [facility] Heart Failure Clinical Administrative Coordinator [phone] May 27, 2024 1:16 PM [facility] Work Phone: [phone]) 241-702508-23-2024 Miscellaneous Notes* Telephone Encounter - Martha Dockery RPh - 05/27/2024 1:15 PM EDT Noted patient canceled pharmacy HF visit on 05/26. Called patient to rescheduled missed appointment and patient did not answer. Left VM to please call pharmacy HF clinic back at [phone] to rescheduled pharmacy HF visit. Also sent patient MyChart message. Will follow up in 1 week if no call backreceived. Noted appointments with Dr. Jensen also cancelled. Martha Dockery PharmD, [facility] Heart Failure Clinical Administrative Coordinator [phone] May 27, 2024 1:16 PM documented in this encounterMercer County [facility] Hospital07-31-2024 Telephone encounter Note * Telephone Encounter - Avani Landa MA - 05/04/2024 11:13 AM EDT Form signed and faxed back to [facility] and scanned into chart. Avani Landa MA [facility]07-31-2024 Miscellaneous Notes* Telephone Encounter - Avani Landa MA - 05/04/2024 11:13 AM EDT Form signed and faxed back to [facility] and scanned into chart. Avani Landa MA * Telephone Encounter - Hilary Suárez MA - 05/02/2024 9:27 AM EDT Orders in office waiting for signature documented in this encounter[facility]07[facility]29-[facility] Telephone encounter Note * Telephone Encounter - Hilary Suárez MA - 05/02/2024 9:27 AM EDT Orders in office waiting for signature [facility]07-26-[facility] History of Present illness Narrative* Marcell Jensen MD - 04/29/2024 12:56 PM EDT Heart, Vascular & Thoracic [place] Department of Cardiovascular Medicine TELEPHONE VISIT (audio only) PROGRESS NOTE This is a telephone encounter initiated for an established patient. The patient, parent or guardianis not originating from a related Evaluation & Management service provided within the previous 7 days nor leading to an Evaluation & Management service or procedure within the next 24 hours or soonest available appointment. I have communicated my name and active licensure. The patient's identity and physical location wereverified at the time of this visit. Either the patient or their legal installation service representative has been informed of the risks and benefits of -- and alternatives to -- treatment through a remote evaluation andconsents to proceed with the evaluation remotely. Nick San has consented to this telephone encounter. Persons Present: patient, daughter (adult), and patient's son-in-law Chief Complaint/Reason: HFEF follow-up HPI: After our initial HF Clinic visit on 02/26/24, I was informed by [facility] that Mr San was unable to afford Entresto 49-51mg and Farxiga 10mg. Mr San did however qualify forthe [place] program and I sent Farxiga script into [place]. Patient's copays are $47 for 30 day suppliesof each medication with their insurance. Call arranged to follow-up on this, as well as the other elements of medication adjustment we had planned including starting spironolactone and stopping the doxazosin which was likely causing orthostatic dizziness in combination with tamsuolsin. He is very keen to proceed with bilateral knee replacement surgeries. He has a new diagnosis of Parkinson disease. He completed the Zio patch 14 day monitor and it did not identify AF. Today, 04/29/24, Mr San feels great - he has lost 5-10 lbs - and he reports his blood pressuresare very good: recent numbers are 127/60, 122/64, 135/67, 129/59, 119/59, 139/69, with heart rate in 60s. Denies any swelling or HF symptoms. No palpitations or chest pains. Weight is 230 lbs. He attended [facility] for the PYP scan, showing no evidence of TTR amyloidosis, and the echocardiogram showed normalization of the LVEF. Knee surgery is scheduled for June. Current Outpatient Medications on File Prior to Visit Medication Sig lisinopril-hydroCHLOROthiazide (ZESTORETIC) 20-12.5 mg per tablet Take 1 tablet by mouth once daily. atorvastatin (LIPITOR) 20 mg tablet Take 1 tablet by mouth daily at bedtime. dapagliflozin propanediol (FARXIGA) 10 mg tablet Take 1 tablet by mouth daily with breakfast. carbidopa-levodopa (SINEMET 25-100) 25-100 mg per tablet Take 1 tablet by mouth three times a day. aspirin 81 mg cap Take 81 mg by mouth once daily. spironolactone (ALDACTONE) 25 mg tablet Take 1 tablet by mouth once daily. iv contrast (will be provided with radiology test) CTA Head/Neck W No IV access, insert saline lockprior to the sedation, infusion, injection for imaging exam. Discontinue saline lock post exam. If Pt. has a central line or IVAD, may access for administration according to line specific nursing protocol. Once exam is complete flush line and de-access according to line specific nursing protocol in the CT contrast administration guidelines link. amLODIPine (NORVASC) 10 mg tablet Take 10 mg by mouth once daily. cloNIDine HCl (CATAPRES) 0.2 mg tablet Take 0.2 mg by mouth two times a day. citalopram (CELEXA) 40 mg tablet Take 40 mg by mouth once daily. tamsulosin (FLOMAX) 0.4 mg Take 0.4 mg by mouth once daily. PAST MEDICAL HISTORY Diagnosis Date Anxiety and depression BPH (benign prostatic hyperplasia) Congestive heart failure (HCC) Diabetes (HCC) Dyslipidemia Hypertension Kidney stone Spinal stenosis TIA (transient ischemic attack) Tremor No past surgical history on file. SOCIAL HISTORY Social History Tobacco Use Smoking status: Never Smokeless tobacco: Never Vaping Use Vaping Use: Never used Substance Use Topics Alcohol use: Not Currently Comment: none now Drug use: Never FAMILY HISTORY Problem Relation Age of Onset Cancer Mother Diabetes Mother other (HTN) Mother Stroke Mother Sudden Cardiac Father advanced age at 90 yo other (HTN) Father other (DM) Sister other (HTN) Sister Cancer Brother colon cancer , stomach cancer other (dm) Brother Stroke Brother ALLERGIES: ALLERGIES Allergen Reactions Acetaminophen GI Upset Hydrocodone GI Upset Tramadol GI Upset Vicodin [Hydrocodon* GI Upset Last ECHO Result Conclusion ECHO Collected: 04/21/2024 2:20 PM (Final result) Impression: CONCLUSIONS: - Exam indication: Pre-op; CHF - The left ventricle is normal in size. There is mild concentric left ventricular hypertrophy. Left ventricular systolic function is normal. EF = 54 5% (2D biplane) Grade I left ventricular diastolic dysfunction. - The right ventricle is normal in size. Right ventricular systolic function is normal. - There is mild aortic valve sclerosis. - The patient has not had a prior CC echocardiographic exam for comparison. * * * Final * * * OUTSIDE TESTING Echo 01/19/2024 Left Ventricle Normal LV size. The left ventricular ejection fraction is 45 %. There is mild global hypokinesis ofthe left ventricle. Right Ventricle Normal RV size. Normal systolic function. Atria Normal left atrium. Normal right atrium. Bubble contrast study negative for right to left interatrial shunt. Mitral Valve Normal mitral valve. Tricuspid Valve Normal tricuspid valve. Mild (1+) tricuspid valve insufficiency. Pulmonary artery systolic pressure is 34 mmHg. Aortic Valve Trisinus/trileaflet aortic valve. Pulmonic Valve Normal pulmonic valve. Great Vessels Normal aortic root. The pulmonary artery is normal size. Inferior vena cava collapse with respiration. Pericardium/Pleural No pericardial effusion. 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 He reports no HF symptoms, but is physically limited and so functional status is hard to determine. There is LVH on visual review of the echo and thus the differential includes hypertensive cardiomyopathy and cardiac amyloidosis. Heart Failure specific medications (list current, note updates or changes, note prior intolerance): BB: None (prev on carvedilol which was stopped) ACEI/ARB/ARNI: Lisinopril-HCTZ 20/12.5 mg MRA: Spironolactone 25 mg SGLT2: Dapagliflozin 10 mg Diuretic: None Anti-hypertensives Amlodipine 10 mg, clonidine 0.2 mg bid, (tamsulosin) PLAN AND RECOMMENDATIONS: HFmrEF Hypertension He is feeling better and both the BP and the LVEF have normalized on the new GDMT plan. Continue asfollows: Continue lisinopril/HCTZ, Entresto unaffordable Continue dapagliflozin 10 mg once daily Continue spironolactone 25 mg once daily 4. No current beta-mikala, but not indicated now LVEF has normalized 5. Still needs to noel stop the doxazosin which is likely causing the orthostatic dizziness in combination with tamsuolsin; there are several BP medications which we can consolidate over time I have signed the cardiovascular risk assessment form and made recommendations around holding aspirin 81 mg for th knee replacement surgeries. RTC in 1 year. Continue to follow-up with PCP meanwhile for BP monitoring. Marcell Jensen MD [facility] Section Of Heart Failure and Cardiac Transplant Medicine Heart and Vascular [place] [facility] Desk [id number] [place] [address] Total Time Spent: 21-30 minutes Answers submitted by the patient for this visit: Review of Systems Heart Failure (Submitted on 04/29/2024) Fever : No Night sweats: No Recent unintentional weight change: No Vision Disturbance: No Hearing Loss: No A cough: No Difficulty Breathing?: No Chest pain: No Leg Swelling: No Skipping or irregular heartbeats?: No Feel like passing out?: No Black tarry stools: No Nausea: No Diarrhea: No Swelling in your abdomen?: No Fill up quickly when you eat?: No Difficulty Urinating?: No Joint pain or stiffness: Yes Muscle aches: Yes A rash: No Dizziness: No Headaches: No documented in this encounterMercer [facility]07-25-2024 History of Present illness Narrative* Martha Dockery, [facility] - 04/28/2024 2:00 PM EDT Heart and Vascular [place] [facility] Heart Failure Heart Failure Medication Optimization Clinic OUTPATIENT VISIT DATE April 28, 2024 OUTPATIENT VISIT TYPE New Patient Patient consents to pharmacy consult agreement. Nick San is a 64 year old male previously diagnosed with HFmrEF: EF 54% (04/21/24) . The patient s heart failure is managed by Dr. Jensen who referred the patient to the ambulatory HF pharmacy clinic for medication reconciliation, education, and titration of all HF medications. Last seen by Dr. Jensen on 02/25 at which time plan was to transition him from lisinopril/HCTZ to Entresto, start dapagliflozin, start spironolactone, and stop doxazosin. Today, the patient presents via virtual visit. Interval Events: 0 ED visits or hospitalizations since last seen by HF provider 04/01 Entresto/dapaglfilozin unaffordable ($47/month copay), patient assistance started for dapagliflozin (form faxed by Dr. Jensen's office 04/05) Patient reported they did not qualify for Entresto PAP Plan to stop propranolol and start carbidopa/levodopa per neurologist Started spironolactone 04/25: Received Farxiga - started taking once daily PMH: PAST MEDICAL HISTORY Diagnosis Date Anxiety and depression BPH (benign prostatic hyperplasia) Congestive heart failure (HCC) Diabetes (HCC) Dyslipidemia Hypertension Kidney stone Spinal stenosis TIA (transient ischemic attack) Tremor ROS: Denies shortness of breath at rest and on exertion (orthopnea, PND, bendopnea, wheezing/coughing). Denies symptoms of edema (abdominal, early satiety, lower extremity). Denies CP, palpitations, PLAZA, blurred vision. Denies dizziness, lightheadedness, syncope. Reports N/V, diarrhea, abdominal pain. Constipation (reports trying different things) Denies potential medication adverse effects. DIET and EXERCISE: Sodium restriction: Yes (cutting back on salt e.g., pretzels/potato chips; eating lots of fruit, celery, cucumbers; limiting meat and increased fish) Fluid restriction: Yes (4-5 bottles of water + 1 diet mountain dew) Exercise: Not a lot (can't walk due to knee/back pain) SOCIAL HISTORY: Tobacco use: No EtOH: No Illicit drugs: No MEDICATIONS: Pill bottles are present. Medications and updates below reflect what patient reported he had pill bottles of during visit. Adherence: 0 missed doses in the past week. Took meds this A.M.. Pharmacy: [facility] [address] [place] [phone] [facility] [phone] Rx coverage: Yes Medication Affordability: No - Entresto copay ($47/month) unaffordable and not eligible for [employer] through [employer] Organization system: [employer] ALLERGIES Allergen Reactions Acetaminophen GI Upset Hydrocodone GI Upset Tramadol GI Upset Vicodin [Hydrocodon* GI Upset Medication List Medication Directions Comments Action/Plan amLODIPine (NORVASC) 10 mg tablet Take 10 mg by mouth once daily. Last dispense 02/22 90 DS Taking as prescribed aspirin 81 mg cap Take 81 mg by mouth once daily. Taking as prescribed atorvastatin (LIPITOR) 20 mg tablet Take 1 tablet by mouth daily at bedtime. Last dispense 04/18 90 DS Taking as prescribed (finishing off 10 mg tablets) carbidopa-levodopa (SINEMET 25-100) 25-100 mg per tablet Take 1 tablet by mouth three times a day. Last dispense 04/04 30 DS Taking as prescribed citalopram (CELEXA) 40 mg tablet Take 40 mg by mouth once daily. Last dispense 02/22 90 DS Taking as prescribed cloNIDine HCl (CATAPRES) 0.2 mg tablet Take 0.2 mg by mouth two times a day. Last dispense 02/22 90 DS Taking as prescribed dapagliflozin propanediol (FARXIGA) 10 mg tablet Take 1 tablet by mouth daily with breakfast. Taking as prescribed (just received from business objects architect 04/25) dapagliflozin propanediol (FARXIGA) 10 mg tablet Take 1 tablet by mouth daily with breakfast. Removed duplicate doxazosin (CARDURA) 2 mg tablet Take 2 mg by mouth daily at bedtime. Last dispense 02/22 90 DS Not taking (reiterated instruction to stop) Removed from medication list finasteride (PROSCAR) 5 mg tablet Take 5 mg by mouth once daily. Last dispense 03/10 30 DS Not taking Removed from medication list gabapentin (NEURONTIN) 600 mg tablet Take 600 mg by mouth two times a day. Not taking Removed from medication list iv contrast (will be provided with radiology test) CTA Head/Neck W No IV access, insert saline lockprior to the sedation, infusion, injection for imaging exam. Discontinue saline lock post exam. If Pt. has a central line or IVAD, may access for administration according to line specific nursing protocol. Once exam is complete flush line and de-access according to line specific nursing protocol in the CT contrast administration guidelines link. meloxicam (MOBIC) 7.5 mg tablet Take 7.5 mg by mouth once daily. Not taking Removed from medication list sacubitril-valsartan (ENTRESTO) 49-51 mg tablet Take 1 tablet by mouth two times a day. Not taking due to cost (patient continued lisinopril/HCTZ) Removed from medication list spironolactone (ALDACTONE) 25 mg tablet Take 1 tablet by mouth once daily. Last dispense 02/25 90 DS Taking as prescribed tamsulosin (FLOMAX) 0.4 mg Take 0.4 mg by mouth once daily. Last dispense 02/22 90 DS Taking as prescribed Primidone - confirmed stopped Propranolol - almost out (will stop once out - left off medication list) Lisinopril/HCTZ 20/12.5 mg once daily (added back to medication list) OTC s: None Herbals: None VITALS: There were no vitals taken for this visit. HOME BLOOD PRESSURE AND PULSE READINGS: Blood pressure (mmHg) Heart rate (bpm) 04/28 127/60 55 04/27 122/64 63 04/26 135/67 59 04/25 129/54 57 04/24 118/59 62 04/23 127/69 56 04/22 119/60 62 04/21 136/69 66 04/20 136/71 57 Weight: 230 lbs (reports lost 10 lbs) Last 3 Encounter BP Readings: Date: BP: 04/18/2024 126/74 04/04/2024 110/74 02/26/2024 144/69 Last 3 Encounter Wt Readings: Date: Wt: 04/18/2024 108.8 kg (239 lb 13.8 oz) 04/04/2024 108.8 kg (239 lb 15.5 oz) 02/26/2024 109.3 kg (241 lb) LABS CMP: Glucose 150 04/04/2024 BUN 21 04/04/2024 Creatinine 1.16 04/04/2024 Sodium 135 04/04/2024 Potassium 4.8 04/04/2024 Chloride 97 04/04/2024 CO2 26 04/04/2024 Protein, Total 6.8 04/04/2024 Albumin 4.2 12/08/2023 Calcium, Total 9.8 04/04/2024 Alkaline Phosphatase 83 12/08/2023 Bilirubin, Total 0.4 12/08/2023 AST 18 12/08/2023 ALT 13 12/08/2023 No results found for: DIGOXIN Estimated Creatinine Clearance: 78 mL/min (based on SCr of 1.16 mg/dL). * I have personally reviewed all lab testing. PHARMACOTHERAPY ASSESSMENT and PLAN: ASSESSMENT/PLAN: 1. Heart failure with mildly reduced ejection fraction (HFmrEF) ([facility]) - ICD9: 428.22, ICD10: I50.22(primary diagnosis) The patient is doing well and heart failure symptoms are stable. Patient denies symptoms related tohypotension, bradycardia, or hypervolemia. Patient is currently adherent and tolerating all HF medications, as indicated below. 2. Encounter for medication review and counseling - ICD9: V65.49, ICD10: Z71.89 Guideline Directed Medical Therapy Most recent GDMT score: 6 NYHA class 2. Slight limitation of physical activity. Ordinary physical activity results in fatigue, palpitations, dyspnea or angina pectoris (mid CHF). MERLENE/ARB/ARNI YES - Lisinopril/HCTZ Dose titration in progress (Entresto unaffordable) Beta Mikala NO To be addressed on carvedilol in the past - currently tapering off propranolol Aldosterone antagonist YES - spironolactone Target dose achieved SGLT2i YES - dapagliflozin propanediol Target dose achieved (started 04/25) Hydralazine/Isosorbide Dinitrate NO Not indicated Ivabradine NO Not indicated Patient's BP and HR are currently controlled while being on 3 pillars of HF guideline-directed medical therapies. Given plan for knee surgery in the next week, propranolol taper, and recent initiation of SGLT2 inhibitor, will defer further medication changes until next visit once lab work obtained.In the future, may consider increasing lisinopril/HCTZ to 2 tablets (20/12.5 mg) daily and stoppingclonidine. CONTINUE all medications as prescribed Hold [facility] for 3 days prior to knee surgery 05/07 (resume afterwards) BMP in 3 weeks or if labs drawn at time of knee surgery Continue monitoring BP/HR and weight at home. Next appointment with Dr. Jensen on 04/29/24 (virtual visit, notified patient) I reviewed the new medications and indications, how to take them, and what to expect in terms of side effects. We also reviewed medications that should no longer be taken, as well as life style modifications including diet and exercise. I recommend use of a pillbox for improved adherence. Interventions made during pharmacy visit: Medication reconciliation and Medication education The patient verbalized understanding of the instructions. Next pharmacy appointment scheduled on 05/26 (patient preference over ). Martha Dockery, RadhaD, [facility] Heart Failure Clinical Administrative Coordinator [phone] documented in this encounterMercer County [facility]07-16-2024 History of Present illness Narrative* Alecia Trevino RT(R) - 04/19/2024 7:45 AM EDT RADIOLOGY SERVICE PROGRESS NOTE SERVICE DATE: 04/19/2024 SERVICE TIME: 8:05 AM PATIENT IDENTITY VERIFICATION COMPLETED USING TWO (2) STANDARD IDENTIFIERS: Name and Date of confirmed by patient verbally and Name and Date of confirmed by identification band FALL SCREENING: Has the patient had 2 falls in the last year or 1 fall with injury or currently using an Ambulatory Assistive Device (Walker, Cane, Wheelchair, Crutches, etc.)? Yes, Patient High Riskfor Falls What interventions were put in place to prevent falls during this visit? Yellow Falls Risk Wristband Applied and Instructed Patient to Call for Help if Needed PATIENT GENDER DATA: .male : No ALLERGIES: Reviewed and unchanged MEDICATIONS REVIEWED: No PATIENT RELEVANT IMPLANT DATA REVIEWED: Not Applicable PATIENT PRESENTS WITH AN IMPLANTABLE OR ATTACHED CONSTRUCTION SUPERVISOR: No CREATININE: Creatinine Date Value Ref Range Status 04/04/2024 1.16 0.73 - 1.22 mg/dL Final 02/26/2024 1.07 0.73 - 1.22 mg/dL Final 12/08/2023 0.90 0.73 - 1.22 mg/dL Final Estimated Glomerular Filtration Rate Date Value Ref Range Status 04/04/2024 69 >=60 mL/min/1.73m Final Comment: Estimated Glomerular Filtration Rate (eGFR) is calculated using the 2020 CKD-EPI creatinine equation. This equation utilizes serum creatinine, sex, and age as parameters. The creatinine assay has traceable calibration to isotope dilution- mass spectrometry. Refer to KDIGO guidelines for clinical interpretation. In patients with unstable renal function, e.g. those with acute kidney injury, the eGFRmay not accurately reflect actual GFR. P.O.C.T. RESULTS: N/A April 19, [address] PERFORMED: No IV SITE: Ambulatory: TN only - direct IV injection in the Right hand POST EXAM PIV STATUS: Not applicable PROCEDURE TYPE: TN INJECT: NM CARDIAC AMYLOID SPECT. 21.2 mCi Tc99m HDP. No other medications given.. ADMINISTRATION TIME: 8:00AM PATIENT DISCHARGED TO: Ambulatory patient, left TN department area. A Diagnostic radioactive procedure has taken place, with no further precautions necessary other than routine body substance precautions. More information regarding radiation safety can be found usingthis link: [email or web address] SIGNATURE: RT Lucia(R) PATIENT NAME: Nick San DATE: April 19, 2024 TIME: 8:05 AM PAGER/CONTACT #: documented in this encounterMercer County [facility] Hospital07-15-2024 Instructions* Patient Instructions* Aga Benitez MD - 04/18/2024 3:22 PM EDT Increase atorvastatin to 20 mg from today. Continue taking all your medications as prescribed and directed Please complete a lipid panel (this is a fasting test) and a hemoglobin A1c in 3 months and schedule an appointment after so we can discuss the results. documented in this encounterMercer County [facility] Hospital07-15-2024 History of Present illness Narrative* Aga Benitez MD - 04/18/2024 2:05 PM EDT This note was created using theAudienceter. Subjective Nick San is a 64 year old male. Here to establish care HPI Patient is here to establish care He has a primary care provider in [place] near where he lives However, he is receiving most of his care at [facility] and would like to establish care with a F PCP aswell. Patient is presenting with his son-in-law who is here from [place] No acute complaints today PMH is notable for HF with mildly reduced EF, essential hypertension, dyslipidemia, recurrent nephrolithiasis, T2 NIDDM, recently diagnosed Parkinson's disease Review of Systems Musculoskeletal: Positive for back pain (chronic). Neurological: Tremor of the right hand at rest All other systems reviewed and are negative. Objective BP 126/74 Pulse (!) 54 Temp 36.3 C (97.3 F) (Temporal) Ht 179.1 cm (5' 10.5) Wt 108.8 kg (239 lb 13.8 oz) SpO2 97% BMI 33.93 kg/m Physical Exam Vitals and nursing note reviewed. Constitutional: General: He is not in acute distress. Appearance: He is not ill-appearing. Cardiovascular: Rate and Rhythm: Normal rate and regular rhythm. Heart sounds: No murmur heard. Pulmonary: Effort: Pulmonary effort is normal. Breath sounds: Normal breath sounds. No wheezing, rhonchi or rales. Neurological: Mental Status: He is alert and oriented to person, place, and time. Comments: Right hand tremor at rest No left hand tremor Cogwheel rigidity, mild noted with movement of the right arm Fluent movement in the left arm Psychiatric: Comments: Flat affect Assessment and Plan Encounter to establish care Z76.89 Essential (primary) hypertension Controlled On multiple medications Will be starting Entresto soon BP 126/74 today Systolic heart failure (HCC) Mildly reduced EF 45% Confirmed on echo 02/2024 On GDMT Management per cardiology Will be starting Entresto soon Calculus of kidney H/o 25 cans of pepsi per day Recurrent nephrolithiasis, has improved since stopping the soft drinks and high oxalate intake Continue to monitor Type 2 diabetes mellitus without complication, without long-term current use of insulin (HCC) Chronic A1C 6.4 in december Treatment indicated Was on metformin 1000 bid before, this was discontinued by PCP due to optimal control Agree with [place] 10, Repeat A1C in 3 months Mixed hyperlipidemia Suboptimal control Last lipid panel reviewed, LDL is at goal Triglycerides are still elevated > 300 Patient is currently on atorvastatin 10 mg Given history of heart failure and diabetes, would recommend high intensity statin Increase statin to 20 mg/day Repeat lipid panel in 3 months and adjust treatment as needed Goal LDL<70 Goal TG <150 Parkinson's disease without dyskinesia (HCC) Recent diagnosis Patient has a history of tremor that was previously being treated with propranolol and primidone without relief. Diagnosis changed to Parkinson's, he just tapered off primidone and will be starting levodopa carbidopa Right hand tremor noted on examination today with mild cogwheel rigidity of the right arm Management per neurology Follow-up appointment in 4 months noted RTC in 3 months with labs prior Aga Benitez MD documented in this encounterMercer County Community Hospital07-02-2024 Telephone encounter Note * Telephone Encounter - Chey Montana RN - 04/05/2024 4:21 PM EDT Completed and faxed Prescriber Application for [employer]/[place] & [place] Patient Assistance [employer]. Chey Montana RN April 05, 2024 4:21 PM [facility]07-02-2024 Miscellaneous Notes* Telephone Encounter - Chey Montana RN - 04/05/2024 4:21 PM EDT Completed and faxed Prescriber Application for [facility]/[place] & [place] Patient Assistance [facility] [place]. Chey Montana RN April 05, 2024 4:21 PM documented in this encounterMercer County Community Hospital07-02-2024 Note* Addendum Note - Marcell Jensen MD - 04/05/2024 11:57 AM EDTAddended by: MARCELL JENSEN R on: 04/05/2024 11:57 AM Modules accepted: Orders [facility]07-02-2024 Miscellaneous Notes* Addendum Note - Marcell Jensen MD - 04/05/2024 11:57 AM EDTAddended by: MARCELL JESNEN R on: 04/05/2024 11:57 AM Modules accepted: Orders documented in this encounterMercer County Community Hospital07-02-2024 Telephone encounter Note * Telephone Encounter - Cha Orozco - 04/05/2024 11:05 AM EDT Called and spoke to patient to schedule Heart Failure Pharmacy consult on 04/28/2024. [facility]07-02-2024 Miscellaneous Notes* Telephone Encounter - Cha Orozco - 04/05/2024 11:05 AM EDT Called and spoke to patient to schedule Heart Failure Pharmacy consult on 04/28/2024. * Telephone Encounter - Cha Orozco - 04/04/2024 11:21 AM EDT Called the patient to schedule a new appointment with the HF pharmacists. Phone number belongs to patient's daughter, Carmina. Unable to LMOVM as VM was full. Attempted to reach emergency contact/sister, Jemima, to get alternate phone number. Requested for patient to call [phone] to schedule. documented in this encounterMercer County Community Hospital07-01-2024 Instructions* Patient Instructions* Miranda Del Rio MD - 04/04/2024 2:23 PM EDT 1. Taper off primidone - go down to 1 pill at bedtime for 5 days, then 1/2 pill at bedtime for 5 days, then stop. 2. We'll double check with your heart doctors where they want the propranolol - if being used for tremor it can be tapered off, but if used for heart health can continue or be changed to what they would prefer. 3. Once these medications are either off or at stable doses, you can start the Parkinson's medication called carbidopa/levodopa. It's a symptomatic medication for Parkinson's Disease that helps replace dopamine to improve movement symptoms. Take a half pill three times a day for the first week, then increase to a full pill three times a day. It works best when taken before meals, but if you get nauseous when taking it, eating a snack with it (preferably without protein) is ok. Watch out for side effects such as nausea, light-headedness, fatigue, hallucinations, or extra movements (dyskinesia). Breakfast Lunch Dinner Week 1 1/2 1/2 1/2 Week 2 1 1 1 documented in this encounterMercer County Community Hospital07-01-2024 History of Present illness Narrative* Miranda Del Rio MD - 04/04/2024 1:28 PM EDT NEW PATIENT EVALUATION Subjective HPI Nick San is a 64 year old right-handed male who presents for evaluation of tremor / parkinsonism. Carla BRENNAN is the referring provider. Dr. Amaya No MD is the PCP. He is herewith his son-in-law Dank. He notes tremor of right hand for around 3 months, Dank notes that it's been more like 1.5 years slowly progressing. Tremor in the right hand only, none in left, present primarily at rest. Has beenusing the left hand He has some difficulty with right hand manual dexterity. Handwriting is messy / hard to read. Notes walking difficulty that he attributes to severe back pain and L>R knee pain, needs left replaced. Can't bend his knees or back that well, fell 2 weeks ago trying to bend over to pick something up. Sense of smell is fine. Mild constipation. He doesn't think he has dream enactment though at original visit his endorsed this. Occasional light-headedness with standing. Older sister had tremor though may have resolved. No etoh so unknown if has alcohol response. He is currently on propranolol 60 mg BID and primidone 75 mg QHS, thinks it has been helpful for tremor. Medications: Current Outpatient Medications Medication Sig Dispense Refill dapagliflozin propanediol (FARXIGA) 10 mg tablet Take 1 tablet by mouth daily with breakfast. 90 tablet 3 aspirin 81 mg cap Take 81 mg by mouth once daily. spironolactone (ALDACTONE) 25 mg tablet Take 1 tablet by mouth once daily. 90 tablet 3 sacubitril-valsartan (ENTRESTO) 49-51 mg tablet Take 1 tablet by mouth two times a day. 180 tablet 3 iv contrast (will be provided with radiology test) CTA Head/Neck W No IV access, insert saline lockprior to the sedation, infusion, injection for imaging [...] mg by mouth two times a day. metFORMIN ER (GLUMETZA) 500 mg 24 hr tablet Take 500 mg by mouth. citalopram (CELEXA) 40 mg tablet Take 40 mg by mouth once daily. tamsulosin (FLOMAX) 0.4 mg Take 0.4 mg by mouth once daily. doxazosin (CARDURA) 2 mg tablet Take 2 mg by mouth daily at bedtime. finasteride (PROSCAR) 5 mg tablet Take 5 mg by mouth once daily. propranolol (INDERAL) 60 mg tablet Take 60 mg by mouth two times a day. meloxicam (MOBIC) 7.5 mg tablet Take 7.5 mg by mouth once daily. gabapentin (NEURONTIN) 600 mg tablet Take 600 mg by mouth two times a day. primidone (MYSOLINE) 50 mg tablet Take 1.5 tablet at bedtime 45 tablet 2 No current facility-administered medications for this visit. ROS ROS: His ROS was positive for that mentioned in the HPI. Otherwise a 10-point ROS was completed andwas negative. ALLERGIES Allergen Reactions Tramadol GI Upset Vicodin [Hydrocodon* GI Upset Past Medical History: PAST MEDICAL HISTORY Diagnosis Date Anxiety and depression BPH (benign prostatic hyperplasia) Congestive heart failure (HCC) Diabetes (HCC) Dyslipidemia Hypertension Kidney stone Spinal stenosis TIA (transient ischemic attack) Tremor Family History: FAMILY HISTORY Problem Relation Age of Onset Cancer Mother Diabetes Mother other (HTN) Mother Stroke Mother Sudden Cardiac Father other (HTN) Father Cancer Brother other (dm) Brother Stroke Brother other (DM) Sister other (HTN) Sister Social History: Social History Tobacco Use Smoking status: Never Smokeless tobacco: Never Substance Use Topics Alcohol use: Not Currently Drug use: Never No etoh Objective 04/04/24 1330 BP: 110/74 Pulse: (!) 54 Temp: 36.6 C (97.9 F) TempSrc: Tympanic SpO2: 97% Weight: 108.8 kg (239 lb 15.5 oz) Physical Examination General Appearance: Well appearing, alert, in no acute distress, well-hydrated, well nourished. Head: Normocephalic Neck: Supple Heart: RRR Peripheral Pulses: Normal Neurologic Examination Mental Status: He is alert. He is fully oriented. Attention is intact. Recent and remote memory is intact. Language shows normal comprehension and fluency. Praxis is normal. Affect is appropriate. Cranial Nerves: Pupils are equal and reactive to light. Extraocular movements show full and smooth pursuits. No nystagmus. Funduscopic exam shows sharp optic discs and normal vasculature. Visual moore are full to confrontation. Facial sensation is intact. Facial activation is symmetric. Hearing isintact to conversation. There is mild hypomimia. There is mild hypophonia. There is no dysarthria. Tongue is midline. Palate elevates symmetrically. Shoulder shrug is mildly reduced on right. Motor: Muscle bulk is normal. Muscle power is full. Mod-severe RUE mod RLE bradykinesia and rigidity, mild on left. RUE rest tremor. Sensory: Intact to fine touch and vibration. Reflex: Biceps and brachioradialis is 2+ bilaterally. Patellar reflex 2+ bilaterally. Ankle jerks 2+ left trace right. Coordination: Finger to nose is smooth without ataxia. Gait/station: Stooped posture, stands with use of hands, reduced right arm swing DATA REVIEWED Actual films/image/tracing reviewed and summarized as follows: MRI Brain 01/06/24 severe chronic microvascular changes Old records reviewed and summarized as follows: Reviewed referral records from [facility] [place] [facility] 1.61 Assessment/Plan Assessment & Plan: Nick San is a 64 year old right-handed male with a history of heart failure, DM, HTN, anxiety / depression and tremor who presents for evaluation of parkinsonism. His examination demonstratesR>L parkinsonism. We discussed the presentation and why it is consistent with PD. Explained PD including pathophysiology, potential symptoms, and treatment approach. Explained medications may treat symptoms but do notalter the course of the condition. I explained the importance of exercise in maintaining independence I don't think he needs primidone or propranolol for tremor, rather would be managed with carbidopa/levodopa. Will start by having him taper off primidone. I double checked with his college professor who did not feel propranolol currently needed for his heart health, will taper this off after he is off primidone. Once he is off both medications, he can start carbidopa/levodopa titrating to 1 pill TID. Discussed side effects. He should return to see me in 4 months. Miranda Del Rio MD [facility] Neurology documented in this encounterMercer County Community Hospital07-01-2024 Telephone encounter Note * Telephone Encounter - Stephan Cha Mortensen - 04/04/2024 11:21 AM EDT Called the patient to schedule a new appointment with the HF pharmacists. Phone number belongs to patient's daughter, Carmina. Unable to LMOVM as VM was full. Attempted to reach emergency contact/sister, Jemima, to get alternate phone number. Requested for patient to call [phone] to schedule. [facility]06-28[facility] History of Present illness Narrative* Marcell Jensen MD - 04/01/2024 4:30 PM EDT Heart, Vascular & Thoracic [place] Department of Cardiovascular Medicine TELEPHONE VISIT (audio only) PROGRESS NOTE This is a telephone encounter initiated for an established patient. The patient, parent or guardianis not originating from a related Evaluation & Management service provided within the previous 7 days nor leading to an Evaluation & Management service or procedure within the next 24 hours or soonest available appointment. I have communicated my name and active licensure. The patient's identity and physical location wereverified at the time of this visit. Either the patient or their legal installation service representative has been informed of the risks and benefits of -- and alternatives to -- treatment through a remote evaluation andconsents to proceed with the evaluation remotely. Nick San has consented to this telephone encounter. Persons Present: patient, daughter (adult), and patient's son-in-law Chief Complaint/Reason: HFmrEF follow-up HPI: After our initial HF Clinic visit on 02/26/24, I was informed by [facility] that Mr San was unable to afford Entresto 49-51mg and Farxiga 10mg. Patient's copays are $47 for 30 daysupplies of each medication with their insurance. Call arranged to follow-up on this, as well as the other elements of medication adjustment we had planned including starting spironolactone and stopping the doxazosin which is likely causing orthostatic dizziness in combination with tamsuolsin. Today, 04/01/24, the patients daughter and son-in-law report he did not qualify for [place]rest[place] assistance, but did qualify [place] the [place] program and that I should send Farxiga script into [place]. Mr San reports recent BP 130/68. He reports that he did not receive or start the spironolactone and did not start the doxazosin. He is still dizzy. He returns to [facility] Thursday to see Neurology re the recent brain imaging suggesting embolic strokes. He complete the Zio patch 14 day monitor and it did not identify AF. He is very keen to proceed with bilateral knee replacement surgeries. Current Outpatient Medications on File Prior to Visit Medication Sig aspirin 81 mg cap Take 81 mg by mouth once daily. spironolactone (ALDACTONE) 25 mg tablet Take 1 tablet by mouth once daily. sacubitril-valsartan (ENTRESTO) 49-51 mg tablet Take 1 tablet by mouth two times a day. iv contrast (will be provided with radiology test) CTA Head/Neck W No IV access, insert saline lockprior to the sedation, infusion, injection for imaging exam. Discontinue saline lock post exam. If Pt. has a central line or IVAD, may access for administration according to line specific nursing protocol. Once exam is complete flush line and de-access according to line specific nursing protocol in the [place] contrast administration guidelines link. amLODIPine (NORVASC) 10 mg tablet Take 10 mg by mouth once daily. cloNIDine HCl (CATAPRES) 0.2 mg tablet Take 0.2 mg by mouth two times a day. metFORMIN ER (GLUMETZA) 500 mg 24 hr tablet Take 500 mg by mouth. citalopram (CELEXA) 40 mg tablet Take 40 mg by mouth once daily. tamsulosin (FLOMAX) 0.4 mg Take 0.4 mg by mouth once daily. doxazosin (CARDURA) 2 mg tablet Take 2 mg by mouth daily at bedtime. finasteride (PROSCAR) 5 mg tablet Take 5 mg by mouth once daily. propranolol (INDERAL) 60 mg tablet Take 60 mg by mouth two times a day. meloxicam (MOBIC) 7.5 mg tablet Take 7.5 mg by mouth once daily. gabapentin (NEURONTIN) 600 mg tablet Take 600 mg by mouth two times a day. primidone (MYSOLINE) 50 mg tablet Take 1.5 tablet at bedtime PAST MEDICAL HISTORY Diagnosis Date Anxiety and depression BPH (benign prostatic hyperplasia) Congestive heart failure (HCC) Diabetes (HCC) Dyslipidemia Hypertension Kidney stone Spinal stenosis TIA (transient ischemic attack) Tremor No past surgical history on file. SOCIAL HISTORY Social History Tobacco Use Smoking status: Never Smokeless tobacco: Never Substance Use Topics Alcohol use: Not Currently Drug use: Never FAMILY HISTORY Problem Relation Age of Onset Cancer Mother Diabetes Mother other (HTN) Mother Stroke Mother Sudden Cardiac Father other (HTN) Father Cancer Brother other (dm) Brother Stroke Brother other (DM) Sister other (HTN) Sister ALLERGIES: ALLERGIES Allergen Reactions Tramadol GI Upset Vicodin [Hydrocodon* GI Upset OUTSIDE TESTING Echo 01/19/2024 Left Ventricle Normal LV size. The left ventricular ejection fraction is 45 %. There is mild global hypokinesis ofthe left ventricle. Right Ventricle Normal RV size. Normal systolic function. Atria Normal left atrium. Normal right atrium. Bubble contrast study negative for right to left interatrial shunt. Mitral Valve Normal mitral valve. Tricuspid Valve Normal tricuspid valve. Mild (1+) tricuspid valve insufficiency. Pulmonary artery systolic pressure is 34 mmHg. Aortic Valve Trisinus/trileaflet aortic valve. Pulmonic Valve Normal pulmonic valve. Great Vessels Normal aortic root. The pulmonary artery is normal size. Inferior vena cava collapse with respiration. Pericardium/Pleural No pericardial effusion. 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 He reports no HF symptoms, but is physically limited and so functional status is hard to determine. There is LVH on visual review of the echo and thus the differential includes hypertensive cardiomyopathy and cardiac amyloidosis. Heart Failure specific medications (list current, note updates or changes, note prior intolerance): BB: None (prev on carvedilol which was stopped) ACEI/ARB/ARNI: Lisinopril-HCTZ 20/12.5 mg MRA: None SGLT2: None Diuretic: None Anti-hypertensives Amlodipine 10 mg, clonidine 0.2 mg bid, (tamsulosin), doxazosin 2 mg, PLAN AND RECOMMENDATIONS: HFmrEF Hypertension It is very unclear if the spironolactone was started or doxazosin stopped as per plan. We do know that he will have to remain on lisinopril/HCTZ due to Entresto being unaffordable and that dapagliflozin 10 mg may be possible through the [place] program. New GDMT plan as follows: Continue lisinopril/HCTZ, Entresto unaffordable Send dapagliflozin 10 mg once daily script to fax [phone] for their patient assistance program. As a note to myself for that next appt, this had been the plan: 3. Still needs to start spironolactone 25 mg once daily and then check labs 4. No current beta-mikala, but less of a priority in HFmrEF than rEF 5. Still needs to noel stop the doxazosin which is likely causing the orthostatic dizziness in combination with tamsuolsin; there are several BP medications which we can consolidate over time I referred to our PharmD telehealth program in the hope that they may be able to make more headway in supporting medication optimization as outlined above. He will do the additional labs incl SFLC and CECILIA to r/o WALKER espinosa on Thursday when he attends the Clinic for Neurology evaluation. The echocardiogram and PYP scan are booked for May. I have emphasized that I want to be able to document cardiovascular stability for the knee replacement surgery, but we need to optimize his medications, ensure BP is appropriate and rule-out amyloid before we proceed. We should also complete the Neurology eval and determine if anticoagulation/anti-platelets are indicated. He will likely need to have each need surgery separately. Patient and family expressed understanding of this sequence of events. Returns to HF Clinic with echo and PYP in May. Marcell Jesnen MD [facility] Section Of Heart Failure and Cardiac Transplant Medicine Heart and Vascular [place] [facility] Desk [address] [place] [address] Total Time Spent: 21-30 minutes documented in this encounterMercer County Community Hospital06-07-2024 Telephone encounter Note * Telephone Encounter - Monie Cortez, [facility] - 03/11/2024 3:02 PM EDT Patient informed [facility] they are unable to afford Entresto 49-51mg and Farxiga 10mg. Patient's copays are $47 for 30 day supplies of each medication with their insurance. Our pharmacy student team has provided the patient with information on Patient Assistance Program through both drug manufacturers. Patient may contact office once their portion of the application is complete. At this time, the prescription will be placed on file and no further action will be taken by the [facility] team unless otherwise notified. Thank you, [facility] [phone] (phone) [phone] (fax) [facility]06-07-2024 Miscellaneous Notes* Telephone Encounter - Monie Cortez RPh - 03/11/2024 3:02 PM EDT Patient informed [facility] they are unable to afford Entresto 49-51mg and Farxiga 10mg. Patient's copays are $47 for 30 day supplies of each medication with their insurance. Our pharmacy student team has provided the patient with information on Patient Assistance Program through both drug manufacturers. Patient may contact office once their portion of the application is complete. At this time, the prescription will be placed on file and no further action will be taken by the [facility] team unless otherwise notified. Thank you, [facility] [phone] (phone) [phone] (fax) documented in this encounterMercer County Community Hospital05-30-2024 Telephone encounter Note * Telephone Encounter - Coral Tran - 03/03/2024 4:53 PM EDT Cardiac Clearance form for total knee arthoplasty from [facility]. Given to Dr. Jensen for completion. [facility]05-30-2024 Miscellaneous Notes* Telephone Encounter - Coral Tran - 03/03/2024 4:53 PM EDT Cardiac Clearance form for total knee arthoplasty from [facility]. Given to Dr. Jensen for completion. documented in this encounterMercer County Community Hospital05-24-2024 Instructions* Patient Instructions* Marcell Jensen MD - 02/26/2024 3:58 PM EDT Today we talked about the heart muscle weakness (cardiomyopathy) that is likely due to high bloodpressure and the condition of heart failure with mildly reduced ejection fraction, although the pumping function is only mildly reduced (45%; normal is 55-65%). We have many strategies we can work on to try to improve this situation. Our goal is to both control the blood pressure and pick meds that also improve the heart pumping function (left ventricular ejection fraction, LVEF, towards the normal range which is 55-65%), help you feel better and extend your lifespan. We discussed that there are 4 groups of medications that can help heal the heart and extend life, as follows: Entresto - helps normalize the salt and water retaining hormones - I hope to switch you over from the currently lisinopril/HCTZ combo to Entresto 49/51 mg 1 tablet twice daily if the Entresto copay is acceptable *note that it is essential to leave a 36 hour gap between the last dose of lisinopril and the first dose of Entresto* Jardiance/Farxiga - helps with the metabolism of the heart - I hope to start 10 mg once daily of either of these medications and if your PCP agrees we could likely drop the metformin and just treat diabetes with this one pill Spironolactone - helps normalize the salt and water retaining hormone aldosterone - please start 25mg once daily which I have sent to [facility] in [place] Metoprolol XL - helps to protect the heart from adrenaline and control heart rate - you were on thecousin drug carvedilol which was stopped, so I need to figure out why and get you on this medication class Please stop the doxazosin which I'm worried will cause you to be too dizzy in combination with tamsuolsin; there are several BP medications which I anticipate we can stop/consolidate 5. Please check your labs today in [place] and then I will ask you to repeat these labs in a couple weeks once we've made med changes using the lab slips locally 6. I'm mailing out the sticky patch called a [email or web address] monitor to assess your rhythm and check for atrialfibrillation (this is a possible cause of your stroke) 7. Please aim to eat a heart-healthy diet, emphasizing fresh foods including lean meats, fish, and other sources of protein, as well as vegetables, grains and olive oil. Please try to avoid salty or processed foods, including take out and deli meats, and limit sugar intake. It would be great if youcould check your BP readings 1-2 times per week and record them please. 8. We would like to repeat an echocardiogram in 3 months with a follow-up visit; I am available to speak sooner if things are not going well documented in this encounterMercer County Community Hospital05-24-2024 History of Present illness Narrative* Marcell Jensen MD - 02/26/2024 2:15 PM EDT Images from the original note were not included. Heart [facility] Vascular [place] [facility] SECTION OF HEART FAILURE and CARDIAC TRANSPLANT MEDICINE OUTPATIENT VISIT DATE February 26, 2024 OUTPATIENT VISIT TYPE New Patient PRIMARY CARE PHYSICIAN: Amaya No [address] [place], [place] [id number] CHIEF COMPLAINT: Referred for HFmrEF NURSING INTAKE (Patient s concerns and/or recent hospitalizations/ER visits): Nick San is a 64 y/o male coming from [place], [place] for a cardiac evaluation for newly discovered LVEF 45%. He followed up with his PCP who referred him to HF team for further evaluation. PMHx of HLD, HTN, kidney stones, DM II, BPH, Tremor, TIA, Spinal stenosis of lumbar region, Arthritis, Depression & Anxiety. HF Nursing Assessment: Interim Hospitalizations and/or ER visits: none recently. Chest Pain: No Skipping or irregular heartbeats: No Shortness of breath at rest: No Shortness of breath with activity: Yes Cough: Yes Waking up in the middle of the night gasping for air: No Lightheadedness or dizziness: Yes Feeling like you are going to pass out: No Actually passing out: No Poor energy level: Yes, noted more in the last year Unintentional weight gain: No Unintentional weight loss: No Swelling in your legs,feet, abdomen: No Filling up quickly when you eat: No HISTORY OF PRESENT ILLNESS: Mr San presents today with his son-in-law who has come up from [place] to assist him today; the patient lives with his . His daughter manages his meds. 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 He reports that he was referred by his PCP not due to cardiorespiratory symptoms, butbased on an incident finding of an abnormal LVEF on echo. He recently had worsening bilateral upper extremity tremor and underwent a brain MRI which per patient report shows multiple stroke sequelae. He thus underwent an echo which showed a negative bubble study and LVEF 45%. He has been treated for HTN for a long time and has multiple agents prescribed, and endorses some dizziness herbert with postural changes. He started aspirin a few weeks ago post-stroke, but not a statin. He has a history of spinal stenosis and knee pain but denies carpal tunnel symptoms. He is using a wheelchair today, but reports no dyspnea on exertion, orthopnea, LE edema, or abdominal swelling. PAST MEDICAL HISTORY Diagnosis Date Anxiety and depression BPH (benign prostatic hyperplasia) Congestive heart failure (HCC) Diabetes (HCC) Dyslipidemia Hypertension Kidney stone Spinal stenosis TIA (transient ischemic attack) Tremor No past surgical history on file. SOCIAL HISTORY Social History Tobacco Use Smoking status: Never Smokeless tobacco: Never Substance Use Topics Alcohol use: Not Currently Drug use: Never FAMILY HISTORY Problem Relation Age of Onset Cancer Mother Diabetes Mother other (HTN) Mother Stroke Mother Sudden Cardiac Father other (HTN) Father Cancer Brother other (dm) Brother Stroke Brother other (DM) Sister other (HTN) Sister ALLERGIES: ALLERGIES Allergen Reactions Tramadol GI Upset Vicodin [Hydrocodon* GI Upset CURRENT MEDICATIONS: aspirin 81 mg daily amLODIPine (NORVASC) 10 mg tablet Take 10 mg by mouth once daily. cloNIDine HCl (CATAPRES) 0.2 mg tablet Take 0.2 mg by mouth two times a day. lisinopril-hydroCHLOROthiazide (ZESTORETIC) 20-12.5 mg per tablet Take 1 tablet by mouth once daily. metFORMIN ER (GLUMETZA) 500 mg 24 hr tablet Take 500 mg by mouth. citalopram (CELEXA) 40 mg tablet Take 40 mg by mouth once daily. tamsulosin (FLOMAX) 0.4 mg Take 0.4 mg by mouth once daily. doxazosin (CARDURA) 2 mg tablet Take 2 mg by mouth daily at bedtime. finasteride (PROSCAR) 5 mg tablet Take 5 mg by mouth once daily. propranolol (INDERAL) 60 mg tablet Take 60 mg by mouth two times a day. meloxicam (MOBIC) 7.5 mg tablet Take 7.5 mg by mouth once daily. gabapentin (NEURONTIN) 600 mg tablet Take 600 mg by mouth two times a day. primidone (MYSOLINE) 50 mg tablet Take 1.5 tablet at bedtime REVIEW OF SYSTEMS: GENERAL: No-Weight loss or gain, No-Fever or Chills, No-Weakness and YES-Sleep difficulties. HEENT: No-Headache, YES-Impaired Vision, glasses, No-Glasses, YES-Hearing Impairment, No-Ringing inEars, No-Nosebleeds, No-Poor Dental Care, No-Bleeding Gums and No-Dentures. NECK: No-Swelling, No-Pain, No-Stiffness RESPIRATORY: YES-Cough, No-Blood in Sputum, No-Shortness of breath, No-Wheezing, Apnea GASTROINTESTINAL: No- Trouble swallowing, No-Heartburn, No-Change in bowel habits, No-Blood in stool, No-Dark black stools MUSCULOSKELETAL: YES-Muscle or joint pain, YES-stiffness, No-Joint swelling NEUROLOGIC/PSYCHIATRIC: No-Weakness, No-Paralysis, No-Numbness, No-Tingling, YES-Tremor, No-Nervousness or No-anxiety, No-Depressed mood, No-Memory loss SKIN: No-Rash, Itching HEMATOLOGICAL/LYMPHATIC: No-Easy bruising, No-Easy bleeding ENDOCRINE: No-Heat or No-Cold Intolerance, No-Excessive Sweating, No-Frequent Urination, YES-Frequent Thirst PHYSICAL EXAMINATION: BP 144/69 Pulse 60 Ht 180.3 cm (5' 11) Wt 109.3 kg (241 lb) BMI 33.61 kg/m General: Well appearing, in no acute distress. +obesity Skin: No clubbing, no cyanosis. Eyes: Extra ocular movements intact Oropharynx: Teeth in good repair. Neck: No jugular venous distention, no carotid bruits, carotids have a normal upstroke, no palpablethyromegaly. Lungs: Clear to auscultation bilaterally, no wheezing or rhonchi. Heart: Regular rhythm, PMI not displaced, S1, S2 normal, no S3, no S4, no heaves, no rub and no murmur. Abdomen: Soft, nontender, bowel sounds normal, no palpable organomegaly, no bruits. Extremities: No peripheral edema . Grade 2/4 distal pulses bilaterally. Neuro: Oriented to person, place and time, alert, cooperative, gait coordinated. CARDIOVASCULAR MEDICINE TESTING: I have personally reviewed the Electrocardiogram and Echocardiogram. OUTSIDE TESTING Echo 01/19/2024 Left Ventricle Normal LV size. The left ventricular ejection fraction is 45 %. There is mild global hypokinesis ofthe left ventricle. Right Ventricle Normal RV size. Normal systolic function. Atria Normal left atrium. Normal right atrium. Bubble contrast study negative for right to left interatrial shunt. Mitral Valve Normal mitral valve. Tricuspid Valve Normal tricuspid valve. Mild (1+) tricuspid valve insufficiency. Pulmonary artery systolic pressure is 34 mmHg. Aortic Valve Trisinus/trileaflet aortic valve. Pulmonic Valve Normal pulmonic valve. Great Vessels Normal aortic root. The pulmonary artery is normal size. Inferior vena cava collapse with respiration. Pericardium/Pleural No pericardial effusion. COMPLETE BLOOD COUNT WBC (k/uL) Date Value 02/26/2024 10.96 12/08/2023 11.67 RBC (m/uL) Date Value 02/26/2024 4.52 12/08/2023 4.55 Hemoglobin (g/dL) Date Value 02/26/2024 13.9 12/08/2023 14.1 Hematocrit (%) Date Value 02/26/2024 41.2 12/08/2023 42.4 MCV (fL) Date Value 02/26/2024 91.2 12/08/2023 93.2 Platelet Count (k/uL) Date Value 02/26/2024 299 12/08/2023 323 BASIC METABOLIC PANEL Sodium (mmol/L) Date Value 02/26/2024 140 12/08/2023 142 Potassium (mmol/L) Date Value 02/26/2024 3.6 12/08/2023 3.7 Chloride (mmol/L) Date Value 02/26/2024 101 12/08/2023 102 CO2 (mmol/L) Date Value 02/26/2024 26 12/08/2023 27 BUN (mg/dL) Date Value 02/26/2024 21 12/08/2023 21 Creatinine (mg/dL) Date Value 02/26/2024 1.07 12/08/2023 0.90 Calcium, Total (mg/dL) Date Value 02/26/2024 10.0 12/08/2023 9.8 Glucose (mg/dL) Date Value 02/26/2024 120 12/08/2023 121 Estimated Creatinine Clearance: 85.4 mL/min (based on SCr of 1.07 mg/dL). 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 He reports no HF symptoms, but is physically limited and so functional status is hard to determine. There is LVH on visual review of theecho and thus the differential includes hypertensive cardiomyopathy and cardiac amyloidosis. Heart Failure specific medications (list current, note updates or changes, note prior intolerance): BB: None (prev on carvedilol which was stopped) ACEI/ARB/ARNI: Lisinopril-HCTZ 20/12.5 mg MRA: None SGLT2: None Diuretic: None Anti-hypertensives Amlodipine 10 mg, clonidine 0.2 mg bid, (tamsulosin), doxazosin 2 mg, PLAN AND RECOMMENDATIONS: HFmrEF Hypertension Today we reviewed the condition of heart failure with mildly reduced ejection fraction, likely due to HTN or possibly amyloid, and that there are several guideline-directed medical therapies to minimize symptoms, improve EF and extend life. We agreed upon the following plans: Entresto - switching from the current lisinopril/HCTZ to Entresto 49/51 mg 1 tablet twice daily if the Entresto copay is acceptable *it is essential to leave a 36 hour gap between the last dose of lisinopril and the first dose of Entresto* Dapagliflozin - start 10 mg once daily of either of these medications - if PCP is in agreement we could stop the metformin in future and just treat DM with SGLT2i Spironolactone - please start 25 mg once daily Beta-blockers - reportedly was on carvedilol which was stopped - BB less of a priority in HFmrEF than rEF Please stop the doxazosin which is likely causing the orthostatic dizziness in combination with tamsuolsin; there are several BP medications which we can consolidate over time 6. Labs today and in 2-3 weeks locally (plus SFLC and CECILIA after starting the medications 7. 14 day Zio patch to screen for AF, given the recent stroke Embolic strokes on MRI 8. Taking aspirin, but should also be on a statin post-stroke - will defer to the PCP given that I do not have the MRI results, but am checking a lipid panel 9. Patient counseled on a heart-healthy diet, emphasizing fresh foods including lean meats, fish, and other sources of protein, as well as vegetables, grains and olive oil. Please try to avoid salty or processed foods, including take out and deli meats, and limit sugar intake. 10. Patient will take BP readings 1-2 times per week and record them please. 11. We would like to repeat an echocardiogram and PYP scan in 2-3 months with a follow-up visit. I personally interviewed, confirmed and edited the above information as obtained by others I personally spent 65 minutes in total time involved in the management and care of this patient. Wediscussed natural history of disease, current treatment options, and future potential treatment options. We discussed diet, exercise, other non-medical management as above. Marcell Jensen MD [facility] Section Of Heart Failure and Cardiac Transplant Medicine Heart and Vascular [place] [facility] Desk [id number] [place] [address] documented in this encounterMercer [facility]04-12-2024 Telephone encounter Note * Telephone Encounter - Christina Brian LPN - 01/15/2024 4:38 PM EDT Phone call placed patient advised results, requested Ov notation and results to be faxed to PCP Dr.Alisha Hernandez fax number [phone]. Patient requested sibling, sister be added to chart to contact her with results in addition. Phone call placed to sister to review results as requested by patient. Documentation faxed to PCP as requested. Christina Brian LPN [facility]04-12-2024 Miscellaneous Notes* Telephone Encounter - Christina Brian LPN - 01/15/2024 4:38 PM EDT Phone call placed patient advised results, requested Ov notation and results to be faxed to PCP Dr.Alisha Hernandez fax number [phone]. Patient requested sibling, sister be added to chart to contact her with results in addition. Phone call placed to sister to review results as requested by patient. Documentation faxed to PCP as requested. Christina Brian LPN * Telephone Encounter - Carla Weir PA-C - 01/15/2024 2:35 PM EDT CTA of the head and neck showed a few areas in the brain that showed mild narrowing due to atherosclerosis. Would recommend started ASA 81mg daily if not on already and would recommend starting cholesterol medication through PCP with goal of LDL <70. 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 Consult was placed. documented in this encounterMer[facility]04-12-2024 Telephone encounter Note * Telephone Encounter - Carla Weir PA-C - 01/15/2024 2:35 PM EDT CTA of the head and neck showed a few areas in the brain that showed mild narrowing due to atherosclerosis. Would recommend started ASA 81mg daily if not on already and would recommend starting cholesterol medication through PCP with goal of LDL <70. 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 Consult was placed. [facility]04-12-[facility] History of Present illness Narrative* Moraima Reyes RT(R) - 01/15/2024 1:00 PM EDT Radiology Service Progress Note DATE OF SERVICE: January 15, 2024 TIME: 4:13 PM PATIENT IDENTITY VERIFICATION COMPLETED USING TWO (2) STANDARD IDENTIFIERS: Name and Date of confirmed by patient verbally. FALL SCREENING: Has the patient had 2 falls in the last year or 1 fall with injury or currently using an Ambulatory Assistive Device (Walker, Cane, Wheelchair, Crutches, etc.)? No PATIENT GENDER DATA: Male PATIENT RELEVANT IMPLANT DATA REVIEWED: Yes PATIENT PRESENTS WITH AN IMPLANTABLE OR ATTACHED CONSTRUCTION SUPERVISOR: No ALLERGIES: Reviewed and unchanged CONTRAST ALLERGY: NO. EXAM: CT -CONTRAST INDUCED NEPHROPATHY RISK FACTORS: Patient age > 60 years CREATININE: Creatinine Date Value Ref Range Status 12/08/2023 0.90 0.73 - 1.22 mg/dL Final Estimated Glomerular Filtration Rate Date Value Ref Range Status 12/08/2023 95 >=60 mL/min/1.73m Final Comment: Estimated Glomerular Filtration Rate (eGFR) is calculated using the 2020 CKD-EPI creatinine equation. This equation utilizes serum creatinine, sex, and age as parameters. The creatinine assay has traceable calibration to isotope dilution- mass spectrometry. Refer to KDIGO guidelines for clinical interpretation. In patients with unstable renal function, e.g. those with acute kidney injury, the eGFRmay not accurately reflect actual GFR. P.O.C.T. RESULTS: POC done: Yes, See Lab Tab January 15, 2024 TREATMENT: N/A PERIPHERAL IV DATA: Ambulatory: A peripheral IV was started in the Left antecubital site with a Angio cath: 18 gauge. RADIOLOGY DEPARTMENT: CT; Exam(s) Completed: CTA Brain and CTA Neck SIGNATURE: RT Umang(R) PATIENT NAME: Nick San DATE: January 15, 2024 TIME: 4:13 PM documented in this encounterMercer [facility]04-04-2024 Miscellaneous Notes* Telephone Encounter - Carla Weir PA-C - 01/07/2024 10:23 AM EDT MRI of the brain showed chronic changes but also showed old lacunar infarcts. These are very small strokes likely secondary to high cholesterol, elevated blood sugar, smoking and elevated blood pressure. Would recommend starting aspirin 81mg and following up with primary care to manage these risk factors. Additionally, I have ordered a CTA of the head and neck to look at the arteries of the head and neck and check for any narrowing or plague build up. Continue with follow up with Dr. Del Rio as planned on 01/19/24. documented in this encounterMercer [facility]04-03-2024 History of Present illness Narrative* Berkley Chavis RT(R) - 01/06/2024 2:20 PM EDT Radiology Service Progress Note PATIENT NAME: Nick San DATE OF SERVICE: January 06, 2024 TIME: 2:49 PM PATIENT IDENTITY VERIFICATION COMPLETED USING TWO (2) IDENTIFIERS: Name and Date of confirmedby patient verbally. FALL SCREENING: Has the patient had 2 falls in the last year or 1 fall with injury or currently using an Ambulatory Assistive Device (Walker, Cane, Wheelchair, Crutches, etc.)? No PATIENT GENDER DATA: Male PATIENT RELEVANT IMPLANT DATA REVIEWED: Yes PATIENT PRESENTS WITH AN IMPLANTABLE OR ATTACHED CONSTRUCTION SUPERVISOR: No RADIOLOGY DEPARTMENT: MR; Exam(s) Completed: Head: Routine Brain PERIPHERAL IV DATA: Not applicable SIGNED BY: RT Wilmar(Radha) January 06, 2024 2:49 PM documented in this [facility]03-05-2024 Instructions* Patient Instructions* Carla Weir PA-C - 12/08/2023 8:42 AM EST Consult to movement clinic (Dr. Del Rio) Laboratory studies MRI of the brain Increase physical exercise Increase Primidone to 75mg a day (let me know if this is helpful and we can increase further) documented in this encounterMercer [facility]03-05-2024 History of Present illness Narrative* Carla Weir PA-C - 12/08/2023 7:50 AM EST Images from the original note were not included. Neurology Outpatient Clinic Date: December 08, 2023 Patient Name: Nick San Referring physician: No referring provider defined for this encounter. Primary physician: none Reason for Evaluation: tremor Subjective HPI Nick San is a 63 year old right-handed male with history of HLD, kidney stones, HTN who presents for evaluation of tremor. Patient presents for evaluation of tremor to the right upper extremity. Notes that it started 3 months ago, but states it has been longer than that that she has noticed it. Notes that it comes and goes and worsens with intention. Occasionally will be in the right lower extremity as well. When it does come on it lasts for seconds and goes away. No weakness afterwards, but does report some difficulty with movement in the right upper and lower extremity. Tremor is worse at night or sitting inhis chair. Not worse with standing or any other position. No other etiology that he can think of including illness, medication, trauma. No head tremor, no trauma with voice. No falls with this. Does not drink alcohol, is not worse with caffeine. No sensory changes. Has not had any imaging or recentlaboratory studies. He was originally put on propranolol with no help. Recently was put on primidone by PCP and notes some improvement with this. No side effects. No change in sense of smell, notes that his handwriting has gotten very small over the last few months to year. Denies any constipation, denies any hallucinations. does report that he punches inhis sleep, moving his arms around, but was told this was because he has sleep apnea and cannot breathe. Denies any change in gait. No change in voice. Does have a sister with Parkinson's disease, no family history of tremor. Has been on gabapentin for pain in his legs, but has not been taking this medication since his tremor started because he feels it does not work. Labs/Imaging None Medications: Current Outpatient Medications Medication Sig Dispense Refill amLODIPine (NORVASC) 10 mg tablet Take 10 mg by mouth once daily. cloNIDine HCl (CATAPRES) 0.2 mg tablet Take 0.2 mg by mouth two times a day. lisinopril-hydroCHLOROthiazide (ZESTORETIC) 20-12.5 mg per tablet Take 1 tablet by mouth once daily. metFORMIN ER (GLUMETZA) 500 mg 24 hr tablet Take 500 mg by mouth. citalopram (CELEXA) 40 mg tablet Take 40 mg by mouth once daily. tamsulosin (FLOMAX) 0.4 mg Take 0.4 mg by mouth once daily. doxazosin (CARDURA) 2 mg tablet Take 2 mg by mouth daily at bedtime. finasteride (PROSCAR) 5 mg tablet Take 5 mg by mouth once daily. propranolol (INDERAL) 60 mg tablet Take 60 mg by mouth two times a day. meloxicam (MOBIC) 7.5 mg tablet Take 7.5 mg by mouth once daily. gabapentin (NEURONTIN) 600 mg tablet Take 600 mg by mouth two times a day. primidone (MYSOLINE) 50 mg tablet Take 1.5 tablet at bedtime 45 tablet 2 No current facility-administered medications for this visit. ROS ROS: His ROS was positive for that mentioned in the HPI. Otherwise a 10-point ROS was completed andwas negative. ALLERGIES Allergen Reactions Tramadol GI Upset Vicodin [Hydrocodon* GI Upset Past Medical History: No past medical history on file. Family History: No family history on file. Also includes: . Social History: Does not drink alcohol Objective 12/08/23 0755 BP: 165/81 Pulse: 68 Resp: 18 SpO2: 94% Physical Examination General Appearance: Well appearing, alert, in no acute distress, well-hydrated, well nourished. Head: Normocephalic Pulm: Breathing comfortably Neck: Supple Psych: Cooperative, appropriate affect Neurological Examination: Mental Status: Alert and Oriented to Place, Person, Time and Situation and Patient follows commands.. Language: Is intact to Comprehension, Fluency and Repetition Cranial Nerves: CNII: Visual acuity normal, visual moore full to confrontation CNIII, IV, : Pupils equal, round and reactive to light, full extraoccular movements, without nystagmus CN V: Facial sensation intact bilaterally to fine touch CN VII: Facial muscles symmetric and strong CN VIII: Hears finger rub well bilaterally CN IX: Gag Reflex not examined CN X: Palate elevates symmetrically CN XI: Full strength shoulder shrug bilaterally CN XII: Tongue protrusion full and midline Motor Exam: Tone - Increased rigidity in the RUE, cogwheel. Bulk - Normal bulk noted in all muscles tested. Inspection - Intermittent resting tremor of the RUE, pill rolling tremor when ambulating Power: MUSCLES Upper Extremity RIGHT LEFT Deltoid 4+/5 5/5 Biceps 5/5 5/5 Triceps 5/5 5/5 Wrist Extension 5/5 5/5 Wrist Flexion 5/5 5/5 Finger Flexion 5/5 5/5 Finger Extension 5/5 5/5 Finger Abd 5/5 5/5 Finger Add 5/5 5/5 MUSCLES Lower Extremity RIGHT LEFT Hip Flexion 4+/5 5/5 Hip Extension 5/5 5/5 BiFem (Knee Flex) 5/5 5/5 Quads (Knee Ext) 5/5 5/5 Gastroc (Plantflx) 5/5 5/5 TibAnt (Dorsiflx) 5/5 5/5 FlxHLong (Toe Flex) 5/5 5/5 ExtHLong (Toe Ext) 5/5 5/5 Sensory Examination Sensation is intact to light touch. Negative extinction to double simultaneous stimulation Reflexes Right Left Bicep 2/4 2/4 Tricep 2/4 2/4 BrRad 2/4 2/4 Knee 1/4 2/4 Ankle 1/4 2/4 Coordination: finger-to- nose-finger intact bilaterally and [id number] intact bilaterally. Decreased VIMAL on the right upper and lower extremity Gait: Patient's gait is stable but with absent arm swing on the RUE. Romberg: Negative, positive retropulsion DATA REVIEWED Actual films/image/tracing reviewed and summarized as follows: none Old records reviewed and summarized as follows: none Assessment/Plan Assessment & Plan: Nick San is a 63 year old right-handed male with a history of HLD, depression, HTN, kidney stones. His examination demonstrates signs of parkinsonism including pill rolling tremor, resting tremor on the RUE, increased tone in RUE, decreased VIMAL on the right upper and lower extremity, positive retropulsion, decreased arm swing on the RUE. Patient reporting new onset tremor about 3 months ago, but wasting that she has noticed longer thanthis. Has not changed much since onset, primarily to the right upper extremity occasionally has some tremor sensation in his right lower extremity. Is present at rest and with intention. Worsens withdistraction. At the time, patient has multiple symptoms of parkinsonism including increased tone inthe right upper extremity, decreased rapid alternating movements on the right side, decreased arm swing on ambulation, positive retropulsion, signs of REM sleep disturbance and micrographia per history. Sister does have Parkinson's disease. However, due to sudden onset of symptoms 3 months ago and some reported weakness on the right upper and lower extremity, will obtain MRI of the brain to rule out any intracranial source of patient's symptoms. Additionally, will obtain beta blood work as patient has not had any recent laboratory studies. Did discuss increasing primidone versus adding Sinemet. At this time, as primidone was helpful him would like to increase primidone. Will increase to 75 mg daily, instructed him that should this help he should reach out the next 2 weeks, can increase to100 mg as well. Due to high suspicion for Parkinson's disease, will have patient follow-up with a movement specialist. Did discuss conservative therapy including increasing physical exercise and increasing water intake, patient agrees and understands. Patient has not had any falls. Patient agreeable to treatment plan of care at this time, all questions were answered. Patient to follow-up as needed. Nick was seen today for new patient evaluation. Diagnoses and all orders for this visit: Tremor - MRI BRAIN WO IVCON; Future - TSH BLD; Future - COMP METABOLIC PANEL; Future - CBC; Future Parkinsonism, unspecified Parkinsonism type (HCC) - CONSULT TO NEUROLOGY; Future Other orders - primidone (MYSOLINE) 50 mg tablet; Take 1.5 tablet at bedtime He should return to see me as needed I spent a total of 60 minutes on the date of the service which included preparing to see the patient, [id number] patient care, completing clinical documentation, obtaining and/or reviewing separately obtained history, performing a medically appropriate examination, counseling and educating the pat ient/family/caregiver, and ordering medications, tests, or procedures. Carla Weir PA-C [facility] Neurology This document has been created with the use of voice recognition technology. It may contain inaccuracies: (e.g. misspellings, inaccurate syntax or word sense) that have escaped review. documented in this encounterMercer [facility]02-29-2024 Telephone encounter Note * Telephone Encounter - Christina Brian LPN - 12/03/2023 10:50 AM EST Phone call placed, no answer 7:58 AM. Phone call placed 10:50 patient scheduled with Ananya ABEBE on 12/08/2023 at 8:00 AM, updated changeof address, phone number on chart, declined MYChart access with phone call, no further action. Christina Brian LPN [facility]02-29-2024 Miscellaneous Notes* Telephone Encounter - Christina Brian LPN - 12/03/2023 10:50 AM EST Phone call placed, no answer 7:58 AM. Phone call placed 10:50 patient scheduled with Ananya ABEBE on 12/08/2023 at 8:00 AM, updated changeof address, phone number on chart, declined MYChart access with phone call, no further action. Christina Brian LPN documented in [facility] encounter[facility] HospitalConsult note Author Rosalba Chandra [facility] Note Date/Time May 29, 2025 5: 22pm [facility] Medical Records Department [address] [place] [address] Counseling Note - Pharmacy 05/29/25 1534 MR#: [id number] Acct: [id number] Name: NICK SAN Rep #:[id number] : 1960 65 From: Rosalba Chandra PCP: Dr. Amaya No MD Status:ADM JESSICA Y Location: [place] [place] [address] Pharmacy [place] Med Reconciliation Pharmacy Service has performed discharge medication reconciliation for this patient. The patient's discharge medication list was reviewed for discrepancies and discrepancies were resolved. Medications at Discharge Home Medications citalopram 40 mg tablet 40 mg PO DAILY DEPRESSION #90 TABLETS 02/07/25 clonidine HCl 0.2 mg tablet 0.2 mg PO BID BP #180 tabs 02/07/25 lisinopril 10 mg tablet 10 mg PO QDAY #90 tabs 02/08/25 pantoprazole 40 mg tablet,delayed release 40 mg PO BID #180 tabs 02/08/25 tamsulosin 0.4 mg capsule 0.4 mg PO QHS PROSTATE #90 caps 02/08/25 carbidopa 25 mg-levodopa 100 mg tablet 2 tab PO TID PARKINSON 02/09/25 acetaminophen 500 mg tablet 1,000 mg (2 x 500 mg) PO Q8 #90 tabs 03/27/25 aspirin 81 mg tablet,delayed release 81 mg PO DAILY HEART HEALTH #90 tabs 03/27/25 dapagliflozin propanediol 10 mg tablet 10 mg PO DAILY CHOLESTEROL #90 tabs 03/27/25 oxycodone 5 mg tablet 5 mg PO 4X/DAY PRN PRN pain 05/26/25 atorvastatin 20 mg tablet 20 mg PO QHS #90 tabs 05/29/25 quetiapine 25 mg tablet 50 mg (2 x 25 mg) PO QHS #0 tabs 05/29/25 05/29/25 [id number] <Electronically signed by Rosalba Chandra> Date _ Rosalba Kumar Signature (if applicable): Date CC: ~ Signed [facility] Work Phone: Discharge summary Author Manuel Dorantes [facility] Note Date/Time May 29, 2025 3: 59pm [facility] Medical Records Department [address] [place] [address] Discharge Summary 05/29/25 1544 MR#: [id number] Acct: [id number] Name: NICK SAN Rep #:[id number] : 1960 65 From: Manuel noel MD PCP: Dr. Amaya No MD Status:ADM JESSICA Location: [place] [id number] Providers Date of Admission: 05/26/25 Primary Care Physician: Dr. Amaya No MD Reason For Visit: WEAKNESS, RECENT L SPINE SURGERY Diagnosis Discharge Diagnosis (1) Generalized weakness: Status: Acute Code(s): R53.1 - Weakness Medications at Discharge Home Medications citalopram 40 mg tablet 40 mg PO DAILY DEPRESSION #90 TABLETS 02/07/25 clonidine HCl 0.2 mg tablet 0.2 mg PO BID BP #180 tabs 02/07/25 lisinopril 10 mg tablet 10 mg PO QDAY #90 tabs 02/08/25 pantoprazole 40 mg tablet,delayed release 40 mg PO BID #180 tabs 02/08/25 tamsulosin 0.4 mg capsule 0.4 mg PO QHS PROSTATE #90 caps 02/08/25 carbidopa 25 mg-levodopa 100 mg tablet 2 tab PO TID PARKINSON 02/09/25 acetaminophen 500 mg tablet 1,000 mg (2 x 500 mg) PO Q8 #90 tabs 03/27/25 aspirin 81 mg tablet,delayed release 81 mg PO DAILY HEART HEALTH #90 tabs 03/27/25 dapagliflozin propanediol 10 mg tablet 10 mg PO DAILY CHOLESTEROL #90 tabs 03/27/25 oxycodone 5 mg tablet 5 mg PO 4X/DAY PRN PRN pain 05/26/25 atorvastatin 20 mg tablet 20 mg PO QHS #90 tabs 05/29/25 quetiapine 25 mg tablet 50 mg (2 x 25 mg) PO QHS #0 tabs 05/29/25 Hospital Course Operations None Procedures None Summary of Care Provided Minutes Spent on Discharge: 33 Hospital Course: Per HPI: NICK SAN, is a 65 M who presented to [facility] on 05/26/2025 with generalized weakness after recent lumbar spine procedure. [facility] records reviewed. Patient had L3-5 decompressive laminectomy procedure done at [facility] on 05/24 for history of lumbar canal stenosis with neurogenic claudication and difficulty with ambulation. Patient tolerated the procedure well and had borderline therapy scores there but opted to be discharged home with home health care on 05/25. Lives at home with his . Daughter is in town from [place] and noted that family pushed for SNF placement but patient ultimately decided for home health care. However, he has had general weakness at home and suffered a fall yesterday in the bathroom; noted he had difficulty getting off the toilet and fell backwards, hitting his head and lower back against the wall. Notes that his low back pain has been somewhat worse since that fall and given his level of debility, daughter broughthim in for evaluation for placement. In the ED he was hemodynamically stable onroom air at rest. CBC and BMP were benign. CT brain/C/T-spine were largely unremarkable. CT L-spine showed known degenerative changes with postoperative changes noted, no new concerning findings. Chest x-ray was unremarkable. Givenpatient is stable from an L-spine standpoint postoperatively, does not require transfer to [facility] at this time. Hospitalist was then contacted for admission. I saw the patient at bedside in the ED, daughter and son-in-law werepresent. Patient was mildly fatigued appearing but otherwise laying back comfortably in bed, conversing normally, in no acute distress. When he attempted to sit up for me to evaluate his back on exam, he had significant weakness noted and was unable to sit up without assistance. He does report postop low back pain that has been tolerable with oxycodone. Notes that his lower extremity numbness and tingling is much improved since the procedure. Denies any other acute concerns currently. Will be admitted for further management. Hospital Course: 1. Debility and weakness after lumbar spine surgery at [facility] in the setting of Parkinson's disease with dementia?65-year-old male recently had an L3-5 decompressive laminectomy on 05/24/2025 at the [facility] and then wasdischarged home. Unfortunately his is 10 years older than him and she physically cannot help him out of the chair and so he developed worsening weakness at home and was brought in for possible placement. PT and OT evaluatedhim and he was excepted to the transitional care unit for ongoing rehab. His Parkinson's is stable and his daughter says that he was recently started on Seroquel at home to help him sleep which we will continue on discharge. I discussed with him the plan for discharge today expressed understanding of the risks and benefits of going to the [facility] and would like to go today. 2. Type 2 diabetes, essential hypertension, hyperlipidemia, history of CVA, anxiety, depression, GERD, BPH with obstruction are all chronic medical conditions which complicate his care. His home medications were continued whereappropriate Weight / BMI Weight Weight: 196 lb 10.437 oz Body Mass Index (BMI) 26.6 ABG / Lab / Microbiology Data 05/29/25 04:52 05/29/25 04:52 Laboratory: Laboratory Results - last 24 hr 05/29/25 04:52: WBC 8.8, RBC 4.52 L, Hgb 14.0, Hct 41.5, MCV 91.8, MCH 31.0, MCHC 33.7, RDW Std Deviation 41.7, RDW Coeff of [place] 12.3, Plt Count 257, MPV 9.5, Immature Gran % (Auto) 0.300, Neut % (Auto) 60.3, Lymph % (Auto) 29.2, [place]% (Auto) 7.7, Eos % (Auto) 1.8, Baso % (Auto) 0.7, Absolute Neuts (auto) 5.3, Absolute Lymphs (auto) 2.58, Nucleated RBC % 0, Sodium 137, Potassium 4.1, Chloride 100, Carbon Dioxide 24.3, Anion Gap 13, BUN 24 H, Creatinine 0.90, Estim Creat Clear Calc 87.42, Est GFR (MDRD) Non-Af 93, BUN/Creatinine Ratio 26.6 H, Glucose 99, Calcium 9.5 D/C Instructions DC O2, CPAP, BIPAP Needs Home O2 Discharge instructions: No Meaningful Use Info Meaningful Use Meaningful Use Diagnoses (Choose all that apply): None applicable Discharge Plan Admission Admit Date/Time: 05/26/25 14:34 Attending Provider: Manuel Dorantes Primary Care Provider: Amaya No Consulting Providers: Jos Teresa; Mishel Vivar Discharge Orders/Prescriptions Prescriptions: New quetiapine 25 mg Tablet 50 mg PO QHS Qty: 0 0RF Continued clonidine HCl 0.2 mg tablet 0.2 mg PO BID Qty: 180 1RF citalopram 40 mg tablet 40 mg PO DAILY Qty: 90 1RF oxycodone 5 mg tablet 5 mg PO 4X/DAY PRN PRN (Reason: pain) lisinopril 10 mg tablet 10 mg PO QDAY Qty: 90 1RF pantoprazole 40 mg tablet,delayed release (DR/EC) 40 mg PO BID Qty: 180 1RF tamsulosin 0.4 mg capsule 0.4 mg PO QHS Qty: 90 1RF carbidopa-levodopa 25-100 mg tablet 2 tab PO TID acetaminophen 500 mg tablet 1,000 mg PO Q8 Qty: 90 0RF aspirin 81 mg tablet,delayed release (DR/EC) 81 mg PO DAILY Qty: 90 0RF dapagliflozin propanediol 10 mg tablet 10 mg PO DAILY Qty: 90 0RF atorvastatin 20 mg tablet 20 mg PO QHS Qty: 90 0RF Referrals / Follow Up: Amaya No MD [Primary Care Provider] - Disposition Disposition (needs filled in before D/C Order can be placed): Assisted Facility Charges/Coding Visit Charges Inpatient E&M: 01707 Disch Hosp >30min 05/29/25 1559 <Electronically signed by Manuel Dorantes MD> Cosigner Signature (if applicable): CC: Dr. Amaya No MD; Dr. Manuel Dorantes MD~ Signed [facility] Work Phone: Evaluation note* Diagnosis Onset Date Resolution Status BPH (benign prostatic hyperplasia) acute Essential hypertension acute Establishing care with new doctor, encounter for noneactive Actinic keratosis noneactive Chronic low back pain without sciatica noneactive Bilateral knee pain noneacti ve Pneumococcal vaccination declined noneactive Controlled type 2 diabetes mellitus noneactive Mild depression noneactive Bilateral primary osteoarthritis of knee acute Pain in both knees acute [facility] Work Phone: Evaluation note* Diagnosis Onset Date Resolution Status BPH (benign prostatic hyperplasia) acute Essential hypertension acute Establishing care with new doctor, encounter for noneactive Actinic keratosis noneactive Chronic low back pain without sciatica noneactive Bilateral knee pain noneacti ve Pneumococcal vaccination declined noneactive Controlled type 2 diabetes mellitus noneactive Mild depression noneactive Bilateral primary osteoarthritis of knee acute Pain in both knees acute Bilateral primary osteoarthritis of knee acute [facility] Work Phone: Evaluation note* Diagnosis Onset Date Resolution Status Spinal stenosis of lumbar region acute BPH (benign prostatic hyperplasia) acute Essential hypertension acute Influenza vaccination declined noneactive Tremor noneactive Controlled type 2 diabetes mellitus noneactive Chronic low back pain without sciatica noneactive Mild depression noneactive Bilateral knee pain noneacti ve Bilateral primary osteoarthritis of knee acute BPH (benign prostatic hyperplasia) acute Essential hypertension acute Tremor noneactive Controlled type 2 diabetes mellitus noneactive Chronic low back pain without sciatica noneactive Mild depression noneactive Bilateral knee pain noneacti ve Bilateral primary osteoarthritis of knee acute Bilateral primary osteoarthritis of knee acute Resting tremor acute Spinal stenosis of lumbar region acute BPH (benign prostatic hyperplasia) acute Essential hypertension acute Tremor noneactive Controlled type 2 diabetes mellitus noneactive Chronic low back pain without sciatica noneactive Mild depression noneactive Bilateral knee pain noneacti ve [facility] Work Phone: Evaluation note* Diagnosis Tremor- Primary Abnormal involuntary movements Parkinsonism, unspecified Parkinsonism type (HCC) [facility]* Diagnosis Tremor Abnormal involuntary movements [facility]* Diagnosis Cerebral infarction, unspecified mechanism (HCC) [facility]* Diagnosis Cerebral infarction, unspecified mechanism (HCC) [facility]* Diagnosis Onset Date Resolution Status Bilateral primary osteoarthritis of knee acute Bilateral primary osteoarthritis of knee acute Resting tremor acute Spinal stenosis of lumbar region acute BPH (benign prostatic hyperplasia) acute Essential hypertension acute Tremor noneactive Controlled type 2 diabetes mellitus noneactive Chronic low back pain without sciatica noneactive Mild depression noneactive Bilateral knee pain noneacti ve BPH (benign prostatic hyperplasia) acute Essential hypertension acute ARASELI (obstructive sleep apnea) noneactive Swallowing difficulty noneac tive Tremor noneactive Old cerebrovascular accident (CVA) without late effect noneactive Controlled type 2 diabetes mellitus noneactive Mild depression noneactive Bilateral knee pain noneacti ve [facility] Work Phone: Evaluation note* Diagnosis Pain in both knees, unspecified chronicity- Primary [facility] Diagnosis Chronic maxillary sinusitis- Primary [facility]* Diagnosis Heart failure with mildly reduced ejection fraction (HFmrEF) (HCC)- Primary Essential (primary) hypertension Unspecified essential hypertension Cerebrovascular accident (CVA) due to embolism of precerebral artery (HCC) Type 2 diabetes mellitus without complication, without long-term current use of insulin (HCC) [facility]* Diagnosis Heart failure with mildly reduced ejection fraction (HFmrEF) (HCC)- Primary Essential (primary) hypertension Unspecified essential hypertension Cerebrovascular accident (CVA) due to embolism of precerebral artery (HCC) [facility]* Diagnosis Parkinson's disease without dyskinesia or fluctuating manifestations (HCC)- Primary Tremor Abnormal involuntary movements [facility]* Diagnosis Encounter to establish care- Primary Other reasons for seeking consultation Systolic heart failure, unspecified HF chronicity (HCC) Essential (primary) hypertension Unspecified essential hypertension Calculus of kidney Type 2 diabetes mellitus without complication, without long-term current use of insulin (HCC) Mixed hyperlipidemia Chronic bilateral low back pain with bilateral sciatica Parkinson's disease without dyskinesia, unspecified whether manifestations fluctuate (HCC) * Assessment & Plan Note - Aga Benitez MD - 04/18/2024 3:25 PM EDT Associated Problem(s): Parkinson's disease without dyskinesia (HCC) Recent diagnosis Patient has a history of tremor that was previously being treated with propranolol and primidone without relief. Diagnosis changed to Parkinson's, he just tapered off primidone and will be starting levodopa carbidopa Right hand tremor noted on examination today with mild cogwheel rigidity of the right arm Management per neurology Follow-up appointment in 4 months noted * Assessment & Plan Note - Aga Benitez MD - 04/18/2024 3:19 PM EDT Associated Problem(s): Mixed hyperlipidemia Suboptimal control Last lipid panel reviewed, LDL is at goal Triglycerides are still elevated > 300 Patient is currently on atorvastatin 10 mg Given history of heart failure and diabetes, would recommend high intensity statin Increase statin to 20 mg/day Repeat lipid panel in 3 months and adjust treatment as needed Goal LDL<70 Goal TG <150 * Assessment & Plan Note - Aga Benitez MD - 04/18/2024 2:22 PM EDT Associated Problem(s): Type 2 diabetes mellitus without complication, without long-term current useof insulin (HCC) Chronic A1C 6.4 in december Treatment indicated Was on metformin 1000 bid before, this was discontinued by PCP due to optimal control Agree with Nathaly Ramey, Repeat A1C in 3 months * Assessment & Plan Note - Aga Benitez MD - 04/18/2024 2:16 PM EDT Associated Problem(s): Calculus of kidney H/o 25 cans of pepsi per day Recurrent nephrolithiasis, has improved since stopping the soft drinks and high oxalate intake Continue to monitor * Assessment & Plan Note - Aga Benitez MD - 04/18/2024 2:14 PM EDT Associated Problem(s): Systolic heart failure (HCC) Mildly reduced EF 45% Confirmed on echo 02/2024 On GDMT Management per cardiology Will be starting Entresto soon * Assessment & Plan Note - Aga Benitez MD - 04/18/2024 2:12 PM EDT Associated Problem(s): Essential (primary) hypertension Controlled On multiple medications Will be starting Entresto soon BP 126/74 today [facility]* Diagnosis Heart failure with mildly reduced ejection fraction (HFmrEF) (HCC)- Primary Encounter for medication review and counseling Other specified counseling documented in this encounter [facility] note* Diagnosis Essential (primary) hypertension- Primary Unspecified essential hypertension Heart failure with mildly reduced ejection fraction (HFmrEF) ([facility]) Encounter for medication review and counseling Other specified counseling documented in this encounter [facility] note* Diagnosis Encounter to establish care- Primary Other reasons for seeking consultation Systolic heart failure, unspecified HF chronicity (HCC) Essential (primary) hypertension Unspecified essential hypertension Calculus of kidney Type 2 diabetes mellitus without complication, without long-term current use of insulin (HCC) Mixed hyperlipidemia Chronic bilateral low back pain with bilateral sciatica Parkinson's disease without dyskinesia, unspecified whether manifestations fluctuate (HCC) Parkinson's disease without dyskinesia or fluctuating manifestations ([facility]) documented in this encounter [facility] note* Diagnosis Septic shock (HCC)- Primary Septic shock ([facility]) Pain of lower extremity, unspecified laterality Normocytic anemia Unspecified anemia Major depressive disorder Major depressive disorder, single episode, unspecified BPH (benign prostatic hyperplasia) Unspecified hyperplasia of prostate without urinary obstruction and other lower urinary tract symptoms (LUTS) HFrEF (heart failure with reduced ejection fraction) ([facility]) YUMIKO (acute kidney injury) ([facility]) Complicated UTI (urinary tract infection) Hematuria Hematuria, unspecified documented in this encounter [facility] note* Diagnosis Encounter to establish care- Primary Other reasons for seeking consultation Systolic heart failure, unspecified HF chronicity (HCC) Essential (primary) hypertension Unspecified essential hypertension Calculus of kidney Type 2 diabetes mellitus without complication, without long-term current use of insulin (HCC) Mixed hyperlipidemia Chronic bilateral low back pain with bilateral sciatica Parkinson's disease without dyskinesia, unspecified whether manifestations fluctuate (HCC) Benign prostatic hyperplasia without lower urinary tract symptoms- Primary Anemia, unspecified type Type 2 diabetes mellitus without complication, without long-term current use of insulin (HCC) Screening for diabetic retinopathy Screening for other eye conditions documented in this encounter [facility] note* Diagnosis Encounter to establish care- Primary Other reasons for seeking consultation Systolic heart failure, unspecified HF chronicity (HCC) Essential (primary) hypertension Unspecified essential hypertension Calculus of kidney Type 2 diabetes mellitus without complication, without long-term current use of insulin (HCC) Mixed hyperlipidemia Chronic bilateral low back pain with bilateral sciatica Parkinson's disease without dyskinesia, unspecified whether manifestations fluctuate (HCC) Parkinson's disease without dyskinesia or fluctuating manifestations (HCC)- Primary Chronic idiopathic constipation Unspecified constipation Toxic metabolic encephalopathy [facility]* Diagnosis Encounter to establish care- Primary Other reasons for seeking consultation Systolic heart failure, unspecified HF chronicity (HCC) Essential (primary) hypertension Unspecified essential hypertension Calculus of kidney Type 2 diabetes mellitus without complication, without long-term current use of insulin (HCC) Mixed hyperlipidemia Chronic bilateral low back pain with bilateral sciatica Parkinson's disease without dyskinesia, unspecified whether manifestations fluctuate (HCC) Essential (primary) hypertension- Primary Unspecified essential hypertension * Assessment & Plan Note - Aga Benitez MD - 08/29/2024 5:52 PM EST Associated Problem(s): Essential (primary) hypertension Received message from [facility] nurse noting that patient is not taking amlodipine at this is not a medication that patient has on his drug list at home. Amlodipine was then discontinued on patient's chart to reflect medication he is taking. Continue current management [facility] Diagnosis Encounter to establish care- Primary Other reasons for seeking consultation Systolic heart failure, unspecified HF chronicity (HCC) Essential (primary) hypertension Unspecified essential hypertension Calculus of kidney Type 2 diabetes mellitus without complication, without long-term current use of insulin (HCC) Mixed hyperlipidemia Chronic bilateral low back pain with bilateral sciatica Parkinson's disease without dyskinesia, unspecified whether manifestations fluctuate (HCC) Essential (primary) hypertension- Primary Unspecified essential hypertension Type 2 diabetes mellitus without retinopathy (HCC)- Primary Type II or unspecified type diabetes mellitus without mention of complication, not stated as uncontrolled Combined forms of age-related cataract of both eyes Other and combined forms of senile cataract Regular astigmatism of both eyes Regular astigmatism Presbyopia Dry eye syndrome of bilateral lacrimal glands Tear film insufficiency, unspecified documented in this encounter [facility] note* Diagnosis Encounter to establish care- Primary Other reasons for seeking consultation Systolic heart failure, unspecified HF chronicity (HCC) Essential (primary) hypertension Unspecified essential hypertension Calculus of kidney Type 2 diabetes mellitus without complication, without long-term current use of insulin (HCC) Mixed hyperlipidemia Chronic bilateral low back pain with bilateral sciatica Parkinson's disease without dyskinesia, unspecified whether manifestations fluctuate (HCC) Essential (primary) hypertension- Primary Unspecified essential hypertension Type 2 diabetes mellitus without complication, without long-term current use of insulin (HCC)- Primary Diminished pulses in lower extremity Other symptoms involving cardiovascular system Onychomycosis Dermatophytosis of nail Ingrowing toenail Ingrowing nail Pain in toe of left foot Pain in limb [facility]* Diagnosis Encounter to establish care- Primary Other reasons for seeking consultation Systolic heart failure, unspecified HF chronicity (HCC) Essential (primary) hypertension Unspecified essential hypertension Calculus of kidney Type 2 diabetes mellitus without complication, without long-term current use of insulin (HCC) Mixed hyperlipidemia Chronic bilateral low back pain with bilateral sciatica Parkinson's disease without dyskinesia, unspecified whether manifestations fluctuate (HCC) Essential (primary) hypertension- Primary Unspecified essential hypertension Mixed hyperlipidemia [facility]* Diagnosis Encounter to establish care- Primary Other reasons for seeking consultation Systolic heart failure, unspecified HF chronicity (HCC) Essential (primary) hypertension Unspecified essential hypertension Calculus of kidney Type 2 diabetes mellitus without complication, without long-term current use of insulin (HCC) Mixed hyperlipidemia Chronic bilateral low back pain with bilateral sciatica Parkinson's disease without dyskinesia, unspecified whether manifestations fluctuate (HCC) Essential (primary) hypertension- Primary Unspecified essential hypertension Confusion- Primary Unspecified psychosis Generalized weakness Other malaise and fatigue Type 2 diabetes mellitus without complication, without long-term current use of insulin (HCC) [facility] Diagnosis Encounter to establish care- Primary Other reasons for seeking consultation Systolic heart failure, unspecified HF chronicity (HCC) Essential (primary) hypertension Unspecified essential hypertension Calculus of kidney Type 2 diabetes mellitus without complication, without long-term current use of insulin (HCC) Mixed hyperlipidemia Chronic bilateral low back pain with bilateral sciatica Parkinson's disease without dyskinesia, unspecified whether manifestations fluctuate (HCC) Essential (primary) hypertension- Primary Unspecified essential hypertension Contusion of left buttock- Primary Fall, initial encounter documented in this encounter [facility] note* Diagnosis Encounter to establish care- Primary Other reasons for seeking consultation Systolic heart failure, unspecified HF chronicity (HCC) Essential (primary) hypertension Unspecified essential hypertension Calculus of kidney Type 2 diabetes mellitus without complication, without long-term current use of insulin (HCC) Mixed hyperlipidemia Chronic bilateral low back pain with bilateral sciatica Parkinson's disease without dyskinesia, unspecified whether manifestations fluctuate (HCC) Essential (primary) hypertension- Primary Unspecified essential hypertension Parkinson's disease with dyskinesia without fluctuating manifestations (HCC)- Primary Other specified personal risk factors, not elsewhere classified [facility] Diagnosis Encounter to establish care- Primary Other reasons for seeking consultation Systolic heart failure, unspecified HF chronicity (HCC) Essential (primary) hypertension Unspecified essential hypertension Calculus of kidney Type 2 diabetes mellitus without complication, without long-term current use of insulin (HCC) Mixed hyperlipidemia Chronic bilateral low back pain with bilateral sciatica Parkinson's disease without dyskinesia, unspecified whether manifestations fluctuate (HCC) Essential (primary) hypertension- Primary Unspecified essential hypertension Parkinson's disease with dyskinesia without fluctuating manifestations (HCC)- Primary documented in this encounter [facility] note* Diagnosis Encounter to establish care- Primary Other reasons for seeking consultation Systolic heart failure, unspecified HF chronicity (HCC) Essential (primary) hypertension Unspecified essential hypertension Calculus of kidney Type 2 diabetes mellitus without complication, without long-term current use of insulin (HCC) Mixed hyperlipidemia Chronic bilateral low back pain with bilateral sciatica Parkinson's disease without dyskinesia, unspecified whether manifestations fluctuate (HCC) Essential (primary) hypertension- Primary Unspecified essential hypertension Presbyopia- Primary Regular astigmatism of both eyes Regular astigmatism Type 2 diabetes mellitus without retinopathy (HCC) Type II or unspecified type diabetes mellitus without mention of complication, not stated as uncontrolled Combined forms of age-related cataract of both eyes Other and combined forms of senile cataract documented in this encounter [facility] note* Diagnosis Encounter to establish care- Primary Other reasons for seeking consultation Systolic heart failure, unspecified HF chronicity (HCC) Essential (primary) hypertension Unspecified essential hypertension Calculus of kidney Type 2 diabetes mellitus without complication, without long-term current use of insulin (HCC) Mixed hyperlipidemia Chronic bilateral low back pain with bilateral sciatica Parkinson's disease without dyskinesia, unspecified whether manifestations fluctuate (HCC) Essential (primary) hypertension- Primary Unspecified essential hypertension Spinal stenosis of lumbar region with neurogenic claudication- Primary Spinal stenosis, lumbar region, with neurogenic claudication Lumbar back pain Lumbago Weakness of both lower extremities [facility] Diagnosis Encounter to establish care- Primary Other reasons for seeking consultation Systolic heart failure, unspecified HF chronicity (HCC) Essential (primary) hypertension Unspecified essential hypertension Calculus of kidney Type 2 diabetes mellitus without complication, without long-term current use of insulin (HCC) Mixed hyperlipidemia Chronic bilateral low back pain with bilateral sciatica Parkinson's disease without dyskinesia, unspecified whether manifestations fluctuate (HCC) Essential (primary) hypertension- Primary Unspecified essential hypertension Diabetic polyneuropathy associated with type 2 diabetes mellitus (HCC)- Primary Onychomycosis Dermatophytosis of nail Pain in toe of right foot Pain in limb Pain in toe of left foot Pain in limb Ingrowing toenail Ingrowing nail Diminished pulses in lower extremity Other symptoms involving cardiovascular system [facility] Diagnosis Encounter to establish care- Primary Other reasons for seeking consultation Systolic heart failure, unspecified HF chronicity (HCC) Essential (primary) hypertension Unspecified essential hypertension Calculus of kidney Type 2 diabetes mellitus without complication, without long-term current use of insulin (HCC) Mixed hyperlipidemia Chronic bilateral low back pain with bilateral sciatica Parkinson's disease without dyskinesia, unspecified whether manifestations fluctuate (HCC) Essential (primary) hypertension- Primary Unspecified essential hypertension Spinal stenosis of lumbar region with neurogenic claudication Spinal stenosis, lumbar region, with neurogenic claudication Weakness of both lower extremities [facility] Diagnosis Encounter to establish care- Primary Other reasons for seeking consultation Systolic heart failure, unspecified HF chronicity (HCC) Essential (primary) hypertension Unspecified essential hypertension Calculus of kidney Type 2 diabetes mellitus without complication, without long-term current use of insulin (HCC) Mixed hyperlipidemia Chronic bilateral low back pain with bilateral sciatica Parkinson's disease without dyskinesia, unspecified whether manifestations fluctuate (HCC) Essential (primary) hypertension- Primary Unspecified essential hypertension Parkinson's disease without dyskinesia or fluctuating manifestations (HCC)- Primary 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) 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 Cerebral microvascular disease Cerebrovascular disease, unspecified Insomnia, unspecified type Low back pain, unspecified back pain laterality, unspecified chronicity, unspecified whether sciatica present Numbness in feet Disturbance of skin sensation [facility] Diagnosis Encounter to establish care- Primary Other reasons for seeking consultation Systolic heart failure, unspecified HF chronicity (HCC) Essential (primary) hypertension Unspecified essential hypertension Calculus of kidney Type 2 diabetes mellitus without complication, without long-term current use of insulin (HCC) Mixed hyperlipidemia Chronic bilateral low back pain with bilateral sciatica Parkinson's disease without dyskinesia, unspecified whether manifestations fluctuate (HCC) Essential (primary) hypertension- Primary Unspecified essential hypertension Urge incontinence- Primary Overactive bladder Hypertonicity of bladder Parkinson's disease, unspecified whether dyskinesia present, unspecified whether manifestations fluctuate (HCC) Alzheimer's disease (HCC) Alzheimer's disease Screening for genitourinary condition Screening for other and unspecified genitourinary condition documented in this encounter [facility] note* Diagnosis Encounter to establish care- Primary Other reasons for seeking consultation Systolic heart failure, unspecified HF chronicity (HCC) Essential (primary) hypertension Unspecified essential hypertension Calculus of kidney Type 2 diabetes mellitus without complication, without long-term current use of insulin (HCC) Mixed hyperlipidemia Chronic bilateral low back pain with bilateral sciatica Parkinson's disease without dyskinesia, unspecified whether manifestations fluctuate (HCC) Essential (primary) hypertension- Primary Unspecified essential hypertension Insomnia, unspecified type- Primary 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) 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 [facility] Diagnosis Encounter to establish care- Primary Other reasons for seeking consultation Systolic heart failure, unspecified HF chronicity (HCC) Essential (primary) hypertension Unspecified essential hypertension Calculus of kidney Type 2 diabetes mellitus without complication, without long-term current use of insulin (HCC) Mixed hyperlipidemia Chronic bilateral low back pain with bilateral sciatica Parkinson's disease without dyskinesia, unspecified whether manifestations fluctuate (HCC) Essential (primary) hypertension- Primary Unspecified essential hypertension Major neurocognitive disorder (HCC)- Primary Unspecified persistent mental disorders due to conditions classified elsewhere Parkinson's disease with dyskinesia, unspecified whether manifestations fluctuate (HCC) documented in this encounter [facility] note* Diagnosis Encounter to establish care- Primary Other reasons for seeking consultation Systolic heart failure, unspecified HF chronicity (HCC) Essential (primary) hypertension Unspecified essential hypertension Calculus of kidney Type 2 diabetes mellitus without complication, without long-term current use of insulin (HCC) Mixed hyperlipidemia Chronic bilateral low back pain with bilateral sciatica Parkinson's disease without dyskinesia, unspecified whether manifestations fluctuate (HCC) Essential (primary) hypertension- Primary Unspecified essential hypertension Spinal stenosis of lumbar region with neurogenic claudication Spinal stenosis, lumbar region, with neurogenic claudication Spinal stenosis, lumbar region, with neurogenic claudication [facility] Diagnosis Encounter to establish care- Primary Other reasons for seeking consultation Systolic heart failure, unspecified HF chronicity (HCC) Essential (primary) hypertension Unspecified essential hypertension Calculus of kidney Type 2 diabetes mellitus without complication, without long-term current use of insulin (HCC) Mixed hyperlipidemia Chronic bilateral low back pain with bilateral sciatica Parkinson's disease without dyskinesia, unspecified whether manifestations fluctuate (HCC) Essential (primary) hypertension- Primary Unspecified essential hypertension Spinal stenosis, lumbar region, with neurogenic claudication- Primary Spinal stenosis, lumbar region, with neurogenic claudication [facility] Diagnosis Encounter to establish care- Primary Other reasons for seeking consultation Systolic heart failure, unspecified HF chronicity (HCC) Essential (primary) hypertension Unspecified essential hypertension Calculus of kidney Type 2 diabetes mellitus without complication, without long-term current use of insulin (HCC) Mixed hyperlipidemia Chronic bilateral low back pain with bilateral sciatica Parkinson's disease without dyskinesia, unspecified whether manifestations fluctuate (HCC) Essential (primary) hypertension- Primary Unspecified essential hypertension Mild depression- Primary Depressive disorder, not elsewhere classified Spinal stenosis of lumbar region with neurogenic claudication Spinal stenosis, lumbar region, with neurogenic claudication Type 2 diabetes mellitus without complication, without long-term current use of insulin (HCC) Mixed hyperlipidemia Essential (primary) hypertension Unspecified essential hypertension 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 note* Diagnosis Encounter to establish care- Primary Other reasons for seeking consultation Systolic heart failure, unspecified HF chronicity (HCC) Essential (primary) hypertension Unspecified essential hypertension Calculus of kidney Type 2 diabetes mellitus without complication, without long-term current use of insulin (HCC) Mixed hyperlipidemia Chronic bilateral low back pain with bilateral sciatica Parkinson's disease without dyskinesia, unspecified whether manifestations fluctuate (HCC) Essential (primary) hypertension- Primary Unspecified essential hypertension Mild dementia with other behavioral disturbance, unspecified dementia type (HCC)- Primary Spinal stenosis, lumbar region, with neurogenic claudication documented in this encounter [facility] Discharge instructionsAmbulatory Orders* Occupational Therapy Referral Location: None Selected * Home Health Location: None Selected [facility] Work Phone: Reason for referral (narrative)* Diagnostic Procedure Only (Routine) - Pending Review Specialty Diagnoses / Procedures Referred By Blessing romero Referred To Contact XR IMAGING Diagnoses Pain in both knees, unspecified chronicity Procedures XR KNEE GENERAL 4V AP BOTH/PA BOTH/LAT/MERC BILATERAL RADIOLOGIC EXAM KNEE COMPLETE 4/MORE VIEWS Kai Bai MD [address] [id number] Xr Imaging [place] [address] Referral ID Status Reason Start Date Expiration Date Visits Requested Visits Authorized [id number] Pending Review Auto-Generat ed Referral 01/26/2024 02/24/2025 1 1 [facility] for referral (narrative)* Diagnostic Procedure Only (Routine) - Pending Review Specialty Diagnoses / Procedures Referred By Blessing romero Referred To Contact MOLECULAR & FUNCTIONAL IMAGING Diagnoses Heart failure with mildly reduced ejection fraction (HFmrEF) ([facility]) Procedures NM SPECT/CT CARDIAC AMYLOID RP LOCLZJ NÉSTOR SPECT W/CT 1 AREA 1 DAY IMAGING Marcell Jensen MD [facility] [address] [place] [address] Molecular & Functional Imaging [address] [id number] Referral ID Status Reason Start Date Expiration Date Visits Requested Visits Authorized [id number] Pending Review Auto-Generat ed Referral 06/09/2024 04/08/2025 1 1 * Outpatient Procedure (Routine) - Authorized Specialty Diagnoses / Procedures Referred By Blessing romero Referred To Contact [facility] [place] [facility] [place] Diagnoses Essential (primary) hypertension Heart failure with mildly reduced ejection fraction (HFmrEF) (HCC) Procedures ECHO ECHO TTHRC R-T 2D W/WOM-MODE COMPL SPEC&COLR D Marcell Jensen MD [address] [address] Referral ID Status Reason Start Date Expiration Date Visits Requested Visits Authorized [id number] Authorized Auto-Generat ed Referral 02/26/2024 02/25/2025 1 1 * Transition of Care (Routine) - Ref Not Required Specialty Diagnoses / Procedures Referred By Blessing romero Referred To Contact [facility] Procedures CARDIOVASCULAR MEDICINE OP FOLLOW UP APPT ORDER Marcell Jensen MD [address] [address] Referral ID Status Reason Start Date Expiration Date Visits Requested Visits Authorized [id number] Ref Not Required PCP Requested Referral 05/28/2024 02/25/2025 1 1 [facility] for referral (narrative)* Outpatient Procedure (Routine) - Authorized Specialty Diagnoses / Procedures Referred By Blessing romero Referred To Contact [facility] [place] [facility] [place] Diagnoses Diminished pulses in lower extremity Procedures PVR ANK PRESS SERINA VAS LAB NON-INVAS PHYSIOLOGIC STD EXTREMITY ART 2 LEVEL Kate Belcher [address] [address] Referral ID Status Reason Start Date Expiration Date Visits Requested Visits Authorized [id number] Authorized Auto-Generat ed Referral 10/20/2024 10/20/2025 1 1 [facility] for visit Narrative* Diagnostic Procedure Only (Routine) - Closed Specialty Diagnoses / Procedures Referred By Blessing romero Referred To Contact MOLECULAR & FUNCTIONAL IMAGING Diagnoses Heart failure with mildly reduced ejection fraction (HFmrEF) (HCC) Procedures NM SPECT/CT CARDIAC AMYLOID RP LOCLZJ NÉSTOR SPECT W/CT 1 AREA 1 DAY IMAGING Marcell Jensen MD [facility] [address] [place] [address] Molecular & Functional Imaging [address] [place] [address] Referral ID Status Reason Start Date Expiration Date V isits Requested Visits Authorized [id number] Closed Auto-Generate d Referral 04/18/2024 04/08/2025 1 1 [facility] for visit Narrative* MRI/CT (Routine) - Closed Specialty Diagnoses / Procedures Referred By Blessing romero Referred To Contact MR IMAGING Diagnoses Spinal stenosis of lumbar region with neurogenic claudication Weakness of both lower extremities Procedures MRI LUMBAR SPINE WO IVCON MRI SPINAL CANAL LUMBAR W/O CONTRAST MATERIAL Tammi Garcia DO [address] [place] [address] Phone: tel: fax: MR IMAGING [place] [address] Referral ID Status Reason Start Date Expiration Date V isits Requested Visits Authorized [id number] Closed Auto-Generate d Referral 03/14/2025 04/13/2026 1 1 [facility] Summary Purpose Family History Relationship Condition Age at Onset Recorded Date/T marie mother Hypertension Unknown Myocardial infarction Unknown Malignant neoplasm of colon Unknown Cerebrovascular accident (CVA) Unknown Depression Unknown Diabetes mellitus Unknown brother Malignant neoplasm of colon Unknown Malignant neoplasm Unknown Hypertension Unknown father Hypertension Unknown sister Diabetes mellitus Unknown Advance Directives Date Activated Date Inactivated Comments 07/25/2024 5:19 PM 07/27/2024 8:21 PM Documents on File Type Date 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 Advance Directive(s) 07/20/2024 12:51 PM Advance Directive(s) 07/06/2024 2:14 PM Advance Directive(s) 06/29/2024 5:43 PM Date Activated Date Inactivated Comments 07/05/2024 3:24 PM 07/14/2024 2:18 PM Question Answer Comments Full Code Order Discussed With: Patient Date Activated Date Inactivated Comments 06/30/2024 9:53 AM 07/03/2024 9:56 AM Question Answer Comments Full Code Order Discussed With: Patient Documents on File Type Date Recorded 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 Yes May 26, 2025 10:55am Advance Directive Response Recorded Date/ Time Do you have a Healthcare Power of Superior Court Judge? 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 EST CARE - NEEDS PPW BL KNEES RM 2 BL KNEES Reason for Visit BPH (benign prostati c hyperplasia) Essential hypertension Establishing care with new doctor, encounter for Actinic keratosis Chronic low back pain without sciatica Bilateral knee pain Pneumococcal vaccination declined Controlled type 2 diabetes mellitus Mild depression Bilateral primary osteoarthritis of knee Pain in both knees Bilateral primary osteoarthritis of knee Chief Complaint LUMBAR SPINE body shakes/no strength rt arm BL KNEES 5 WK FU BI LATERAL KNEES BILATERAL KNEES Room 1 2 M FU Reason for Visit Spinal stenosis of l umbar region BPH (benign prostatic hyperplasia) Essential hypertension Influenza vaccination declined Tremor Controlled type 2 diabetes mellitus Chronic low back pain without sciatica Mild depression Bilateral knee pain Bilateral primary osteoarthritis of knee BPH (benign prostatic hyperplasia) Essential hypertension Tremor Controlled type 2 diabetes mellitus Chronic low back pain without sciatica Mild depression Bilateral knee pain Bilateral primary osteoarthritis of knee Bilateral primary osteoarthritis of knee Resting tremor Spinal stenosis of lumbar region BPH (benign prostatic hyperplasia) Essential hypertension Tremor Controlled type 2 diabetes mellitus Chronic low back pain without sciatica Mild depression Bilateral knee pain Chief Complaint BI LATERAL KNEES BILATERAL KNEES Room 1 2 M FU STROKE FOLLOW UP TIA/CVA Reason for Visit Bilateral primary os teoarthritis of knee Bilateral primary osteoarthritis of knee Resting tremor Spinal stenosis of lumbar region BPH (benign prostatic hyperplasia) Essential hypertension Tremor Controlled type 2 diabetes mellitus Chronic low back pain without sciatica Mild depression Bilateral knee pain BPH (benign prostatic hyperplasia) Essential hypertension ARASELI (obstructive sleep apnea) Swallowing difficulty Tremor Old cerebrovascular accident (CVA) without late effect Controlled type 2 diabetes mellitus Mild depression Bilateral knee pain Chief Complaint Admit Date RE-ESTABLISH 2025 8:31am fall 2025 9:54am Reason for Visit Admit Date BPH (benign prostatic hyperplasia) February 072024 8:31am Essential hypertension 2025 8:3 1am Driving safety issue 2025 8:31a m Immunization declined 2025 8:31 am ARASELI (obstructive sleep apnea) February 07, 8:31am Systolic heart failure 2025 8:3 1am Skin lesions 2025 8:31am Old cerebrovascular accident (CVA) witho ut late effect 2025 8:31am Controlled type 2 diabetes mellitus 2025 8:31am Recurrent falls 2025 8:31am Chronic low back pain without sciatica M ay 2024 8:31am Mild depression 2025 8:31am Bilateral knee pain 2025 8:31am Parkinson's disease 2025 8:31am Chief Complaint Admit Date RE-ESTABLISH 2025 8:31am fall 2025 9:54am R FOOT PAIN March 13, 2025 2:53p m pain- RIGHT ANKLE AND FOOT March 13 2:55pm Reason for Visit Admit Date BPH (benign prostatic hyperplasia) February 072024 8:31am Essential hypertension 2025 8:3 1am Driving safety issue 2025 8:31a m Immunization declined 2025 8:31 am ARASELI (obstructive sleep apnea) February 07 025 8:31am Systolic heart failure 2025 8:3 1am Skin lesions 2025 8:31am Old cerebrovascular accident (CVA) witho ut late effect 2025 8:31am Controlled type 2 diabetes mellitus 2025 8:31am Recurrent falls 2025 8:31am Chronic low back pain without sciatica M ay 2024 8:31am Mild depression 2025 8:31am Bilateral knee pain 2025 8:31am Parkinson's disease 2025 8:31am Pain in joint involving right ankle and foot March 13, 2025 2:53pm Chief Complaint Admit Date RE-ESTABLISH 2025 8:31am fall 2025 9:54am R FOOT PAIN March 13, 2025 2:53p m pain- RIGHT ANKLE AND FOOT March 13 2:55pm WEAKNESS, RECENT L SPINE SURGERY May 26, 2025 2:34pm Chief Complaint Admit Date RE-ESTABLISH 2025 8:31am fall 2025 9:54am R FOOT PAIN March 13, 2025 2:53p m pain- RIGHT ANKLE AND FOOT March 13 2:55pm WEAKNESS, RECENT L SPINE SURGERY May 26, 2025 2:34pm WEAKNESS, RECENT L SPINE SURGERY May 27, 2025 12:25pm WEAKNESS, RECENT L SPINE SURGERY May 28, 2025 10:55am WEAKNESS, RECENT L SPINE SURGERY May 29, 2025 10:33am Reason for Visit Admit Date BPH (benign prostatic hyperplasia) February 072024 8:31am Essential hypertension 2025 8:3 1am Driving safety issue 2025 8:31a m Immunization declined 2025 8:31 am ARASELI (obstructive sleep apnea) February 07 8:31am Systolic heart failure 2025 8:3 1am Skin lesions 2025 8:31am Old cerebrovascular accident (CVA) witho ut late effect 2025 8:31am Controlled type 2 diabetes mellitus 2025 8:31am Recurrent falls 2025 8:31am Chronic low back pain without sciatica M ay 2024 8:31am Mild depression 2025 8:31am Bilateral knee pain 2025 8:31am Parkinson's disease 2025 8:31am Pain in joint involving right ankle and foot March 13, 2025 2:53pm Difficulty walking May 26, 2025 2: 34pm Generalized weakness May 26, 2025 2 :34pm Reason for Referral Specialty Diagnoses / Procedures Referred By Contac t Referred To Contact Neurology Diagnoses Parkinsonism, unspecified Parkinsonism type (HCC) Procedures CONSULT TO NEUROLOGY OFFICE/OUTPATIENT [facility] 60 MINUTES Carla Weir PA-C [address] [place] [address] Miranda Del Rio MD [address] [place] [address] [place] [address] Referral ID Status Reason Start Date Expiration Date Visits Requested Visits Authorized [id number] Authorized PCP Requested Referral 12/08/2023 12/07/2024 1 1 Specialty Diagnoses / Procedures Referred By Contac t Referred To Contact MR IMAGING Diagnoses Tremor Procedures MRI BRAIN WO IVCON MRI BRAIN BRAIN STEM W/O CONTRAST MATERIAL Carla Weir PA-C [address] [place] [address] [place] [address] Referral ID Status Reason Start Date Expiration Date Visits Requested Visits Authorized [id number] Authorized Auto-Generat ed Referral 12/08/2023 01/06/2025 1 1 Referral ID Status Reason Start Date Expiration Date V isits Requested Visits Authorized [id number] Closed Auto-Generate d Referral 12/08/2023 01/06/2025 1 1 Specialty Diagnoses / Procedures Referred By Contac t Referred To Contact CT IMAGING Diagnoses Cerebral infarction, unspecified mechanism (HCC) Procedures CTA NECK W IVCON CT ANGIOGRAPHY NECK W/CONTRAST/NONCONTRAST Carla Weir PA-C [address] [place] [address] [place] [address] Referral ID Status Reason Start Date Expiration Date Visits Requested Visits Authorized [id number] Pending Review Auto-Generat ed Referral 01/07/2024 02/05/2025 1 1 Specialty Diagnoses / Procedures Referred By Contac t Referred To Contact CT IMAGING Diagnoses Cerebral infarction, unspecified mechanism (HCC) Procedures CTA HEAD W IVCON CT ANGIOGRAPHY HEAD W/CONTRAST/NONCONTRAST Carla Weir PA-C [address] [place] [address] [place] [address] Referral ID Status Reason Start Date Expiration Date Visits Requested Visits Authorized [id number] Pending Review Auto-Generat ed Referral 01/07/2024 02/05/2025 1 1 Referral ID Status Reason Start Date Expiration Date V isits Requested Visits Authorized [id number] Closed Auto-Generate d Referral 01/07/2024 02/05/2025 1 1 Referral ID Status Reason Start Date Expiration Date V isits Requested Visits Authorized [id number] Closed Auto-Generate d Referral 01/07/2024 02/05/2025 1 1 Specialty Diagnoses / Procedures Referred By Contac t Referred To Contact Ent - Otolaryngology Diagnoses Chronic maxillary sinusitis Procedures CONSULT TO ENT OFFICE/OUTPATIENT [facility] 60 MINUTES Carla Weir PA-C [address] [place] [address] Referral ID Status Reason Start Date Expiration Date Visits Requested Visits Authorized [id number] Authorized PCP Requested Referral 01/15/2024 01/14/2025 1 1 Specialty Diagnoses / Procedures Referred By Contac t Referred To Contact [facility] Procedures CARDIOVASCULAR MEDICINE OP FOLLOW UP APPT ORDER Marcell Jensen MD [facility] [address] [place] [address] [facility] [address] [place] [address] Referral ID Status Reason Start Date Expiration Date Visits Requested Visits Authorized [id number] Ref Not Required PCP Requested Referral 04/02/2024 04/02/2025 1 1 Referral ID Status Reason Start Date Expiration Date Visits Requested Visits Authorized [id number] Ref Not Required PCP Requested Referral 01/29/2025 04/29/2025 1 1 Specialty Diagnoses / Procedures Referred By Contac t Referred To Contact Ophthalmology Diagnoses Screening for diabetic retinopathy Procedures CONSULT TO OPHTHALMOLOGY OFFICE/OUTPATIENT [facility] 60 MINUTES Aga Benitez MD [address] [place] [address] Referral ID Status Reason Start Date Expiration Date Visits Requested Visits Authorized [id number] Authorized PCP Requested Referral 08/08/2024 08/08/2025 1 1 Specialty Diagnoses / Procedures Referred By Contac t Referred To Contact Podiatry Diagnoses Type 2 diabetes mellitus without complication, without long-term current use of insulin (HCC) Procedures CONSULT TO PODIATRY OFFICE/OUTPATIENT [facility] 60 MINUTES Aga Benitez MD [address] [place] [address] Referral ID Status Reason Start Date Expiration Date Visits Requested Visits Authorized [id number] Authorized PCP Requested Referral 08/08/2024 08/08/2025 1 1 Specialty Diagnoses / Procedures Referred By Blessing romero Referred To Contact Urology Diagnoses Benign prostatic hyperplasia without lower urinary tract symptoms Procedures CONSULT TO UROLOGY OFFICE/OUTPATIENT [facility] 60 MINUTES Aga Benitez MD [address] [facility] [place] [address] Referral ID Status Reason Start Date Expiration Date Visits Requested Visits Authorized [id number] Authorized PCP Requested Referral 08/08/2024 08/08/2025 1 1 Additional Source Comments (unrecognized sect ion and content) No Status Records FoundNo Status Records FoundNo Status Records FoundNo Status Records FoundNo Status Records FoundNo Status Records FoundNo Status Records FoundNo Status Records FoundNo Status Records FoundNo Status Records Found INFORMATION SOURCE (unrecogn ized section and content) DATE CREATED AUTHOR 08/05/2020 [facility] DATE CREATED AUTHOR AUTHOR'S ORGANIZ ATION 10/12/2020 [facility] Carina Bailey DATE CREATED AUTHOR AUTHOR'S ORGANIZ ATION 08/06/2022 [facility] DATE CREATED AUTHOR AUTHOR'S ORGANIZ ATION 07/06/2024 [facility] DATE CREATED AUTHOR AUTHOR'S ORGANIZ ATION 08/08/2024 [facility] DATE CREATED AUTHOR AUTHOR'S ORGANIZ ATION 05/04/2025 [facility] DATE CREATED AUTHOR AUTHOR'S ORGANIZ ATION 05/25/2025 [facility] DATE CREATED AUTHOR AUTHOR'S ORGANIZ ATION 05/27/2025 [facility] DATE CREATED AUTHOR AUTHOR'S ORGANIZ ATION 05/28/2025 [facility] DATE CREATED AUTHOR AUTHOR'S ORGANIZ ATION 05/28/2025 [facility] Care Teams (unrecognized sec tion and content) Team Status: Active Member Role Status Dates Dr. Amaya No MD Primary Care Provider Active Team Status: Inactive Member Role Status Dates Dr. Amaya No MD Attending Provider Active Team Status: Inactive Member Role Status Dates Maximiliaon Delvalle MD Attending Provider Active Team Status: Inactive Member Role Status Dates Dr. Fidel Mckeon MD Attending Provider Active Team Status: Inactive Member Role Status Dates Dr. Amaya No MD Primary Care Pro vider, Attending Provider, Referring Provider Active Team Status: Inactive Member Role Status Dates Maximiliano Delvalle MD Attending Provider Active Dr. Amaya No MD Primary Care Provider, Referri ng Provider Active Team Status: Inactive Member Role Status Dates Dr. Amaya No MD Primary Care Provider Active Dr. Edi Daniels MD Attending Provider, Referr ing Provider Active Team Status: Inactive Member Role Status Dates Dr. Amaya No MD Primary Care Provider, Referri ng Provider Active Dr. Nawaf Rdz DO Attending Provider Active Team Status: Inactive Member Role Status Dates Dr. Amaya No MD Primary Care Provider, Referri ng Provider Active Maximiliano Delvalle MD Attending Provider Active Team Status: Inactive Member Role Status Dates Dr. Amaya No MD Primary Care Provider, Referri ng Provider Active Dr. Mac Ge DO Attending Provider Active Team Status: Inactive Member Role Status Dates Dr. Amaya No MD Primary Care Provider Active Dr. Fidel Mckeon MD Attending Provider Active Team Status: Active Member Role Status Dates Dr. Amaya No MD Primary Care Provider Active Dr. Fidel Mckeon MD Attending Provider Active Senior Report Developer Relationship Specialty Start Date End Date Amaya No MD [address] [place] [address] PCP - General Internal Medicine 01/21/24 Senior Report Developer Relationship Specialty Start Date End Date Amaya No MD [address] [place] [address] PCP - General Internal Medicine 01/21/24 Senior Report Developer Relationship Specialty Start Date End Date Amaya No MD [address] [place] [address] PCP - General Internal Medicine 01/21/24 Senior Report Developer Relationship Specialty Start Date End Date Amaya No MD [address] [place] [address] PCP - General Internal Medicine 01/21/24 Senior Report Developer Relationship Specialty Start Date End Date Amaya No MD [address] [place] [address] PCP - General Internal Medicine 01/21/24 Senior Report Developer Relationship Specialty Start Date End Date Amaya No MD [address] [place] [address] PCP - General Internal Medicine 01/21/24 Senior Report Developer Relationship Specialty Start Date End Date Amaya No MD [address] [place] [address] PCP - General Internal Medicine 01/21/24 Senior Report Developer Relationship Specialty Start Date End Date Amaya No MD [address] [place] [address] PCP - General Internal Medicine 01/21/24 Senior Report Developer Relationship Specialty Start Date End Date Amaya No MD [address] [place] [address] PCP - General Internal Medicine 01/21/24 Senior Report Developer Relationship Specialty Start Date End Date Amaya No MD [address] [place] [address] PCP - General Internal Medicine 01/21/24 Senior Report Developer Relationship Specialty Start Date End Date Amaya No MD [address] [place] [address] PCP - General Internal Medicine 01/21/24 Senior Report Developer Relationship Specialty Start Date End Date Amaya No MD [address] [place] [address] PCP - General Internal Medicine 01/21/24 Senior Report Developer Relationship Specialty Start Date End Date Aga Benitez MD [address] [place] [address] PCP - General Internal Medicine 04/18/24 Senior Report Developer Relationship Specialty Start Date End Date Aga Benitez MD [address] [place] [address] PCP - General Internal Medicine 04/18/24 Senior Report Developer Relationship Specialty Start Date End Date Aga Benitez MD [address] [place] [address] PCP - General Internal Medicine 04/18/24 Senior Report Developer Relationship Specialty Start Date End Date Aga Benitez MD [address] [place] [address] PCP - General Internal Medicine 04/18/24 Senior Report Developer Relationship Specialty Start Date End Date Amaya No MD [address] [facility] [address] PCP - General Internal Medicine 01/21/24 04/17/24 Aga Benitez MD [address] [place] [address] PCP - General Internal Medicine 04/18/24 Senior Report Developer Relationship Specialty Start Date End Date Aga Benitez MD [address] [place] [address] PCP - General Internal Medicine 04/18/24 Senior Report Developer Relationship Specialty Start Date End Date Aga Benitez MD [address] [place] [address] PCP - General Internal Medicine 04/18/24 Senior Report Developer Relationship Specialty Start Date End Date Aga Benitez MD [address] [facility] [place] [address] PCP - General Internal Medicine 04/18/24 Senior Report Developer Relationship Specialty Start Date End Date Aga Benitez MD [address] [place] [address] PCP - General Internal Medicine 04/18/24 Senior Report Developer Relationship Specialty Start Date End Date Aga Benitez MD [address] [place] [address] PCP - General Internal Medicine 04/18/24 Senior Report Developer Relationship Specialty Start Date End Date Aga Benitez MD [address] [place] [address] PCP - General Internal Medicine 04/18/24 Senior Report Developer Relationship Specialty Start Date End Date Aga Benitez MD [address] [place] [address] PCP - General Internal Medicine 04/18/24 Senior Report Developer Relationship Specialty Start Date End Date Aga Benitez MD [address] [place] [address] PCP - General Internal Medicine 04/18/24 Senior Report Developer Relationship Specialty Start Date End Date Aga Benitez MD [address] [place] [address] PCP - General Internal Medicine 04/18/24 Senior Report Developer Relationship Specialty Start Date End Date Aga Benitez MD [address] [place] [address] PCP - General Internal Medicine 04/18/24 Senior Report Developer Relationship Specialty Start Date End Date Aga Benitez MD [address] [place] [address] PCP - General Internal Medicine 04/18/24 Senior Report Developer Relationship Specialty Start Date End Date Aga Benitez MD [address] [place] [address] PCP - General Internal Medicine 04/18/24 Khalida Herring PA-C [facility] [place] [address] Sports Nutritionist Internal Medicine 09/12/24 Senior Report Developer Relationship Specialty Start Date End Date Aga Benitez MD [address] [facility] [place] [address] PCP - General Internal Medicine 04/18/24 Khalida Herring PA-C [facility] [place] [address] Sports Nutritionist Internal Medicine 09/12/24 Senior Report Developer Relationship Specialty Start Date End Date Aga Benitez MD [address] [facility] [place] [address] PCP - General Internal Medicine 04/18/24 Khalida Herring PA-C [facility] [place] [address] Sports Nutritionist Internal Medicine 09/12/24 Senior Report Developer Relationship Specialty Start Date End Date Aga Benitez MD [address] [facility] [place] [address] PCP - General Internal Medicine 04/18/24 Khalida Herring PA-C [facility] [place] [address] Sports Nutritionist Internal Medicine 09/12/24 Senior Report Developer Relationship Specialty Start Date End Date Aga Benitez MD [address] [place] [address] PCP - General Internal Medicine 04/18/24 Khalida Herring PA-C [address] [place] [address] Sports Nutritionist Internal Medicine 09/12/24 Senior Report Developer Relationship Specialty Start Date End Date Aga Benitez MD [address] [place] [address] PCP - General Internal Medicine 04/18/24 Khalida Herring PA-C [address] [place] [address] Sports Nutritionist Internal Medicine 09/12/24 Senior Report Developer Relationship Specialty Start Date End Date Aga Benitez MD [address] [place] [address] PCP - General Internal Medicine 04/18/24 Senior Report Developer Relationship Specialty Start Date End Date Aga Benitez MD [address] [place] [address] PCP - General Internal Medicine 04/18/24 Team Status: Inactive Member Role Status Dates DEFINED NOT Referring Provider Active Start: Choco morin 2024 End: 2025 Dr. Amaya No MD Primary Care Provider Active Start: 2025 End: 2025 Dr. Amaya No MD Attending Provider Active Start: 2025 End: 2025 Team Status: Inactive Member Role Status Dates Dr. Amaya No MD Primary Care Provider Active Start: 2025 End: 2025 Dr. Amaya No MD Attending Provider Active Start: 2025 End: 2025 Dr. Amaya No MD Referring Provider Active Start: 2025 End: 2025 Team Status: Inactive Member Role Status Dates Dr. Amaya No MD Primary Care Provider Active Start: March 13, 2025 End: March 13, 2025 Dr. Amaya No MD Referring Provider Active Start: March 13, 2025 End: March 13, 2025 ANU Bagley Attending Provider Active Start: March 13, 2025 End: March 13, 2025 Team Status: Active Member Role Status Dates Dr. Amaya No MD Primary Care Provider Active Start: March 13, 2025 ANU aBgley Attending Provider Active Start: March 13, 2025 ANU Bagley Referring Provider Active Start: March 13, 2025 Team Status: Inactive Member Role Status Dates Dr. Amaya No MD Primary Care Provider Active Start: March 13, 2025 End: March 13, 2025 ANU Bagley Attending Provider Active Start: March 13, 2025 End: March 13, 2025 ANU Bagley Referring Provider Active Start: March 13, 2025 End: March 13, 2025 Senior Report Developer Relationship Specialty Start Date End Date Aga Benitez MD [address] [place] [address] PCP - General Internal Medicine 04/18/24 Senior Report Developer Relationship Specialty Start Date End Date Aga Benitez MD [address] [place] [address] PCP - General Internal Medicine 04/18/24 Senior Report Developer Relationship Specialty Start Date End Date Aga Benitez MD [address] [facility] [place] [address] PCP - General Internal Medicine 04/18/24 Senior Report Developer Relationship Specialty Start Date End Date Aga Benitez MD [address] [facility] [place] [address] PCP - General Internal Medicine 04/18/24 Senior Report Developer Relationship Specialty Start Date End Date Aga Benitez MD [address] [facility], [place] [id number] PCP - General Internal Medicine 04/18/24 Team Status: Active Member Role/Relationship Status Dates Dr. Amaya No MD Primary Care Provider Active Team Status: Inactive Member Role/Relationship Status Dates DEFINED NOT Referring Provider Active Start: Choco morin 2024 End: 2025 Dr. Amaya No MD Primary Care Provider Active Start: 2025 End: 2025 Dr. Amaya No MD Attending Provider Active Start: 2025 End: 2025 Team Status: Inactive Member Role/Relationship Status Dates Dr. Amaya No MD Primary Care Provider Active Start: 2025 End: 2025 Dr. Amaya No MD Attending Provider Active Start: 2025 End: 2025 Dr. Amaya No MD Referring Provider Active Start: 2025 End: 2025 Team Status: Inactive Member Role/Relationship Status Dates Dr. Amaya No MD Primary Care Provider Active Start: March 13, 2025 End: March 13, 2025 Dr. Amaya No MD Referring Provider Active Start: March 13, 2025 End: March 13, 2025 Chris Blas PA, PA Attending Provider Active Start: March 13, 2025 End: March 13, 2025 Team Status: Inactive Member Role/Relationship Status Dates Dr. Amaya No MD Primary Care Provider Active Start: March 13, 2025 End: March 13, 2025 ANU Bagley Attending Provider Active Start: March 13, 2025 End: March 13, 2025 ANU Bagley Referring Provider Active Start: March 13, 2025 End: March 13, 2025 Senior Report Developer Relationship Specialty Start Date End Date Aga Benitez MD [address] [place] [address] PCP - General Internal Medicine 04/18/24 Senior Report Developer Relationship Specialty Start Date End Date Aga Benitez MD [address] [place] [address] PCP - General Internal Medicine 04/18/24 Senior Report Developer Relationship Specialty Start Date End Date Aga Benitez MD [address] [place] [address] PCP - General Internal Medicine 04/18/24 Senior Report Developer Relationship Specialty Start Date End Date Aga Benitez MD [address] [place] [address] PCP - General Internal Medicine 04/18/24 Senior Report Developer Relationship Specialty Start Date End Date Aga Benitez MD [address] [place] [address] PCP - General Internal Medicine 04/18/24 Senior Report Developer Relationship Specialty Start Date End Date Aga Benitez MD [address] [place] [address] PCP - General Internal Medicine 04/18/24 Senior Report Developer Relationship Specialty Start Date End Date Aga Benitez MD [address] [place], [place] [id number] PCP - General Internal Medicine 04/18/24 Amaya No MD [address] [facility] [place], [place] [address] Internal Medicine 05/03/25 Senior Report Developer Relationship Specialty Start Date End Date Aga Benitez MD [address] [place], [place] [address] PCP - General Internal Medicine 04/18/24 Amaya No MD [address] [place] [address] Internal Medicine 05/03/25 Isamar Orozco PA-C [address] [address] Referring Internal Medicine 05/25/25 [place] [address] [place] [address] Home Care Provider Neurosurgery 05/25/25 Sandra Negrete, PT [address] [place] [address] Dermatology Sales Representative Post Acute Care 05/25/25 Team Status: Active Member Role/Relationship Status Dates Dr. Amaya No MD Primary Care Provider Active Start: May 26, 2025 Dr. Kaz Stovall , DO Emergency Provider Active Start: May 26, 2025 Dr. Jos Teresa , DO Admit Provider Active Start: May 26, 2025 Dr. Jos Mosteller , DO Attending Provider Active Start: May 26, 2025 Senior Report Developer Relationship Specialty Start Date End Date Aga Benitez MD [address] [place] [address] PCP - General Internal Medicine 04/18/24 Amaya No MD [address] [place] [address] Internal Medicine 05/03/25 Isamar Orozco PA-C [address] [id number] Referring Internal Medicine 05/25/25 [place] [address] [facility] [place] [place] [address] Home Care Provider Neurosurgery 05/25/25 Sandra Negrete, PT [address] [place], [place] [id number] Dermatology Sales Representative Post Acute Care 05/25/25 Team Status: Inactive Member Role/Relationship Status Dates Dr. Amaya No MD Primary Care Provider Active Start: May 26, 2025 End: May 29, 2025 Dr. Kaz Stovall DO Emergency Provider Active Start: May 26, 2025 End: May 29, 2025 Dr. Jos Teresa DO Admit Provider Active Start: May 26, 2025 End: May 29, 2025 Dr. Jos Teresa DO Other Provider Active Start: May 26, 2025 End: May 29, 2025 Dr. Manuel Dorantes MD Attending Provider Active Start: May 26, 2025 End: May 29, 2025 Dr. Mishel Vivar MD Other Provider Active St art: May 26, 2025 End: May 29, 2025 Team Status: Active Member Role/Relationship Status Dates Dr. Amaya No MD Primary Care Provider Active Start: May 27, 2025 Dr. Kaz Stovall DO Emergency Provider Active Start: May 27, 2025 Dr. Jos Teresa DO Admit Provider Active Start: May 27, 2025 Dr. Jos Teresa DO Other Provider Active Start: May 27, 2025 Dr. Mishel Vivar MD Attending Provider Active Start: May 27, 2025 Dr. Mishel Vivar MD Other Provider Active St art: May 27, 2025 Team Status: Active Member Role/Relationship Status Dates Dr. Amaya No MD Primary Care Provider Active Start: May 28, 2025 Dr. Kaz Stovall DO Emergency Provider Active Start: May 28, 2025 Dr. Jos Teresa DO Admit Provider Active Start: May 28, 2025 Dr. Jos Teresa DO Other Provider Active Start: May 28, 2025 Dr. Mishel Vivar MD Attending Provider Active Start: May 28, 2025 Dr. Mishel iVvar MD Other Provider Active St art: May 28, 2025 Team Status: Active Member Role/Relationship Status Dates Dr. Amaya No MD Primary Care Provider Active Start: May 29, 2025 Dr. Kaz Stovall DO Emergency Provider Active Start: May 29, 2025 Dr. Jos Teresa DO Admit Provider Active Start: May 29, 2025 Dr. Jos Teresa DO Other Provider Active Start: May 29, 2025 Dr. Manuel Dorantes MD Attending Provider Active Start: May 29, 2025 Dr. Manuel Dorantes MD Other Provider Active Start: May 29, 2025 Dr. Mishel Vivar MD Other Provider Active St art: May 29, 2025 Goals (unrecognized section and content) Goals may be documented in a n alternate sectionGoals may be documented in an alternate sectionGoals may be documented in an alternate sectionGoals may be documented in an alternate sectionGoals may be documented in an alternate sectionGoals may be documented in an alternate sectionGoals may be documented in an alternate sectionGoals may be documented in an alternate sectionGoals may be documented in an alternate section Source Comments (unrecognize d section and content) In the event this informatio n is protected by the Federal Confidentiality of Alcohol and Drug Abuse Patient Records regulations: The Federal rules restrict any use of the information to criminally investigate or prosecute any alcohol or drug abuse patient.[facility]In the event this information is protected by the Federal Confidentiality of Alcohol and Drug Abuse Patient Records regulations: The Federal rules restrict any use of the information to criminally investigate or prosecute any alcohol or drug abuse patient.[facility] HospitalIn the event this information is protected by the Federal Confidentiality of Alcohol and Drug Abuse Patient Records regulations: The Federal rules restrict any use of the information to criminally investigate or prosecute any alcohol or drug abuse patient.[facility] HospitalIn the event this information is protected by the Federal Confidentiality of Alcohol and Drug Abuse Patient Records regulations: The Federal rules restrict any use of the information to criminally investigate or prosecute any alcohol or drug abuse patient.[facility] HospitalIn the event this information is protected by the Federal Confidentiality of Alcohol and Drug Abuse Patient Records regulations: The Federal rules restrict any use of the information to criminally investigate or prosecute any alcohol or drug abuse patient.[facility] HospitalIn the event this information is protected by the Federal Confidentiality of Alcohol and Drug Abuse Patient Records regulations: The Federal rules restrict any use of the information to criminally investigate or prosecute any alcohol or drug abuse patient.[facility] HospitalIn the event this information is protected by the Federal Confidentiality of Alcohol and Drug Abuse Patient Records regulations: The Federal rules restrict any use of the information to criminally investigate or prosecute any alcohol or drug abuse patient.[facility] HospitalIn the event this information is protected by the Federal Confidentiality of Alcohol and Drug Abuse Patient Records regulations: The Federal rules restrict any use of the information to criminally investigate or prosecute any alcohol or drug abuse patient.[facility] HospitalIn the event this information is protected by the Federal Confidentiality of Alcohol and Drug Abuse Patient Records regulations: The Federal rules restrict any use of the information to criminally investigate or prosecute any alcohol or drug abuse patient.[facility] HospitalIn the event this information is protected by the Federal Confidentiality of Alcohol and Drug Abuse Patient Records regulations: The Federal rules restrict any use of the information to criminally investigate or prosecute any alcohol or drug abuse patient.[facility] HospitalIn the event this information is protected by the Federal Confidentiality of Alcohol and Drug Abuse Patient Records regulations: The Federal rules restrict any use of the information to criminally investigate or prosecute any alcohol or drug abuse patient.[facility] HospitalIn the event this information is protected by the Federal Confidentiality of Alcohol and Drug Abuse Patient Records regulations: The Federal rules restrict any use of the information to criminally investigate or prosecute any alcohol or drug abuse patient.[facility] HospitalIn the event this information is protected by the Federal Confidentiality of Alcohol and Drug Abuse Patient Records regulations: The Federal rules restrict any use of the information to criminally investigate or prosecute any alcohol or drug abuse patient.[facility] HospitalIn the event this information is protected by the Federal Confidentiality of Alcohol and Drug Abuse Patient Records regulations: The Federal rules restrict any use of the information to criminally investigate or prosecute any alcohol or drug abuse patient.[facility] HospitalIn the event this information is protected by the Federal Confidentiality of Alcohol and Drug Abuse Patient Records regulations: The Federal rules restrict any use of the information to criminally investigate or prosecute any alcohol or drug abuse patient.[facility] HospitalIn the event this information is protected by the Federal Confidentiality of Alcohol and Drug Abuse Patient Records regulations: The Federal rules restrict any use of the information to criminally investigate or prosecute any alcohol or drug abuse patient.[facility] HospitalIn the event this information is protected by the Federal Confidentiality of Alcohol and Drug Abuse Patient Records regulations: The Federal rules restrict any use of the information to criminally investigate or prosecute any alcohol or drug abuse patient.[facility] HospitalIn the event this information is protected by the Federal Confidentiality of Alcohol and Drug Abuse Patient Records regulations: The Federal rules restrict any use of the information to criminally investigate or prosecute any alcohol or drug abuse patient.[facility] HospitalIn the event this information is protected by the Federal Confidentiality of Alcohol and Drug Abuse Patient Records regulations: The Federal rules restrict any use of the information to criminally investigate or prosecute any alcohol or drug abuse patient.[facility] HospitalIn the event this information is protected by the Federal Confidentiality of Alcohol and Drug Abuse Patient Records regulations: The Federal rules restrict any use of the information to criminally investigate or prosecute any alcohol or drug abuse patient.[facility] HospitalIn the event this information is protected by the Federal Confidentiality of Alcohol and Drug Abuse Patient Records regulations: The Federal rules restrict any use of the information to criminally investigate or prosecute any alcohol or drug abuse patient.[facility] HospitalIn the event this information is protected by the Federal Confidentiality of Alcohol and Drug Abuse Patient Records regulations: The Federal rules restrict any use of the information to criminally investigate or prosecute any alcohol or drug abuse patient.[facility] HospitalIn the event this information is protected by the Federal Confidentiality of Alcohol and Drug Abuse Patient Records regulations: The Federal rules restrict any use of the information to criminally investigate or prosecute any alcohol or drug abuse patient.[facility] HospitalIn the event this information is protected by the Federal Confidentiality of Alcohol and Drug Abuse Patient Records regulations: The Federal rules restrict any use of the information to criminally investigate or prosecute any alcohol or drug abuse patient.[facility] HospitalIn the event this information is protected by the Federal Confidentiality of Alcohol and Drug Abuse Patient Records regulations: The Federal rules restrict any use of the information to criminally investigate or prosecute any alcohol or drug abuse patient.[facility] HospitalIn the event this information is protected by the Federal Confidentiality of Alcohol and Drug Abuse Patient Records regulations: The Federal rules restrict any use of the information to criminally investigate or prosecute any alcohol or drug abuse patient.[facility] HospitalIn the event this information is protected by the Federal Confidentiality of Alcohol and Drug Abuse Patient Records regulations: The Federal rules restrict any use of the information to criminally investigate or prosecute any alcohol or drug abuse patient.[facility] HospitalIn the event this information is protected by the Federal Confidentiality of Alcohol and Drug Abuse Patient Records regulations: The Federal rules restrict any use of the information to criminally investigate or prosecute any alcohol or drug abuse patient.[facility] HospitalIn the event this information is protected by the Federal Confidentiality of Alcohol and Drug Abuse Patient Records regulations: The Federal rules restrict any use of the information to criminally investigate or prosecute any alcohol or drug abuse patient.[facility] HospitalIn the event this information is protected by the Federal Confidentiality of Alcohol and Drug Abuse Patient Records regulations: The Federal rules restrict any use of the information to criminally investigate or prosecute any alcohol or drug abuse patient.[facility] HospitalIn the event this information is protected by the Federal Confidentiality of Alcohol and Drug Abuse Patient Records regulations: The Federal rules restrict any use of the information to criminally investigate or prosecute any alcohol or drug abuse patient.[facility] HospitalIn the event this information is protected by the Federal Confidentiality of Alcohol and Drug Abuse Patient Records regulations: The Federal rules restrict any use of the information to criminally investigate or prosecute any alcohol or drug abuse patient.[facility] HospitalIn the event this information is protected by the Federal Confidentiality of Alcohol and Drug Abuse Patient Records regulations: The Federal rules restrict any use of the information to criminally investigate or prosecute any alcohol or drug abuse patient.[facility] HospitalIn the event this information is protected by the Federal Confidentiality of Alcohol and Drug Abuse Patient Records regulations: The Federal rules restrict any use of the information to criminally investigate or prosecute any alcohol or drug abuse patient.[facility] HospitalIn the event this information is protected by the Federal Confidentiality of Alcohol and Drug Abuse Patient Records regulations: The Federal rules restrict any use of the information to criminally investigate or prosecute any alcohol or drug abuse patient.[facility] HospitalIn the event this information is protected by the Federal Confidentiality of Alcohol and Drug Abuse Patient Records regulations: The Federal rules restrict any use of the information to criminally investigate or prosecute any alcohol or drug abuse patient.[facility] HospitalIn the event this information is protected by the Federal Confidentiality of Alcohol and Drug Abuse Patient Records regulations: The Federal rules restrict any use of the information to criminally investigate or prosecute any alcohol or drug abuse patient.[facility] HospitalIn the event this information is protected by the Federal Confidentiality of Alcohol and Drug Abuse Patient Records regulations: The Federal rules restrict any use of the information to criminally investigate or prosecute any alcohol or drug abuse patient.[facility] HospitalIn the event this information is protected by the Federal Confidentiality of Alcohol and Drug Abuse Patient Records regulations: The Federal rules restrict any use of the information to criminally investigate or prosecute any alcohol or drug abuse patient.[facility] HospitalIn the event this information is protected by the Federal Confidentiality of Alcohol and Drug Abuse Patient Records regulations: The Federal rules restrict any use of the information to criminally investigate or prosecute any alcohol or drug abuse patient.[facility] HospitalIn the event this information is protected by the Federal Confidentiality of Alcohol and Drug Abuse Patient Records regulations: The Federal rules restrict any use of the information to criminally investigate or prosecute any alcohol or drug abuse patient.[facility] HospitalIn the event this information is protected by the Federal Confidentiality of Alcohol and Drug Abuse Patient Records regulations: The Federal rules restrict any use of the information to criminally investigate or prosecute any alcohol or drug abuse patient.[facility] HospitalIn the event this information is protected by the Federal Confidentiality of Alcohol and Drug Abuse Patient Records regulations: The Federal rules restrict any use of the information to criminally investigate or prosecute any alcohol or drug abuse patient.[facility] HospitalIn the event this information is protected by the Federal Confidentiality of Alcohol and Drug Abuse Patient Records regulations: The Federal rules restrict any use of the information to criminally investigate or prosecute any alcohol or drug abuse patient.[facility] HospitalIn the event this information is protected by the Federal Confidentiality of Alcohol and Drug Abuse Patient Records regulations: The Federal rules restrict any use of the information to criminally investigate or prosecute any alcohol or drug abuse patient.[facility] HospitalIn the event this information is protected by the Federal Confidentiality of Alcohol and Drug Abuse Patient Records regulations: The Federal rules restrict any use of the information to criminally investigate or prosecute any alcohol or drug abuse patient.[facility] HospitalIn the event this information is protected by the Federal Confidentiality of Alcohol and Drug Abuse Patient Records regulations: The Federal rules restrict any use of the information to criminally investigate or prosecute any alcohol or drug abuse patient.[facility] HospitalIn the event this information is protected by the Federal Confidentiality of Alcohol and Drug Abuse Patient Records regulations: The Federal rules restrict any use of the information to criminally investigate or prosecute any alcohol or drug abuse patient.[facility] HospitalIn the event this information is protected by the Federal Confidentiality of Alcohol and Drug Abuse Patient Records regulations: The Federal rules restrict any use of the information to criminally investigate or prosecute any alcohol or drug abuse patient.[facility] HospitalIn the event this information is protected by the Federal Confidentiality of Alcohol and Drug Abuse Patient Records regulations: The Federal rules restrict any use of the information to criminally investigate or prosecute any alcohol or drug abuse patient.[facility] HospitalIn the event this information is protected by the Federal Confidentiality of Alcohol and Drug Abuse Patient Records regulations: The Federal rules restrict any use of the information to criminally investigate or prosecute any alcohol or drug abuse patient.[facility] HospitalIn the event this information is protected by the Federal Confidentiality of Alcohol and Drug Abuse Patient Records regulations: The Federal rules restrict any use of the information to criminally investigate or prosecute any alcohol or drug abuse patient.[facility] HospitalIn the event this information is protected by the Federal Confidentiality of Alcohol and Drug Abuse Patient Records regulations: The Federal rules restrict any use of the information to criminally investigate or prosecute any alcohol or drug abuse patient.[facility] HospitalIn the event this information is protected by the Federal Confidentiality of Alcohol and Drug Abuse Patient Records regulations: The Federal rules restrict any use of the information to criminally investigate or prosecute any alcohol or drug abuse patient.[facility] HospitalIn the event this information is protected by the Federal Confidentiality of Alcohol and Drug Abuse Patient Records regulations: The Federal rules restrict any use of the information to criminally investigate or prosecute any alcohol or drug abuse patient.[facility] HospitalIn the event this information is protected by the Federal Confidentiality of Alcohol and Drug Abuse Patient Records regulations: The Federal rules restrict any use of the information to criminally investigate or prosecute any alcohol or drug abuse patient.[facility] HospitalIn the event this information is protected by the Federal Confidentiality of Alcohol and Drug Abuse Patient Records regulations: The Federal rules restrict any use of the information to criminally investigate or prosecute any alcohol or drug abuse patient.[facility] HospitalIn the event this information is protected by the Federal Confidentiality of Alcohol and Drug Abuse Patient Records regulations: The Federal rules restrict any use of the information to criminally investigate or prosecute any alcohol or drug abuse patient.[facility] HospitalIn the event this information is protected by the Federal Confidentiality of Alcohol and Drug Abuse Patient Records regulations: The Federal rules restrict any use of the information to criminally investigate or prosecute any alcohol or drug abuse patient.[facility] HospitalIn the event this information is protected by the Federal Confidentiality of Alcohol and Drug Abuse Patient Records regulations: The Federal rules restrict any use of the information to criminally investigate or prosecute any alcohol or drug abuse patient.[facility] HospitalIn the event this information is protected by the Federal Confidentiality of Alcohol and Drug Abuse Patient Records regulations: The Federal rules restrict any use of the information to criminally investigate or prosecute any alcohol or drug abuse patient.[facility] HospitalIn the event this information is protected by the Federal Confidentiality of Alcohol and Drug Abuse Patient Records regulations: The Federal rules restrict any use of the information to criminally investigate or prosecute any alcohol or drug abuse patient.[facility] HospitalIn the event this information is protected by the Federal Confidentiality of Alcohol and Drug Abuse Patient Records regulations: The Federal rules restrict any use of the information to criminally investigate or prosecute any alcohol or drug abuse patient.[facility] HospitalIn the event this information is protected by the Federal Confidentiality of Alcohol and Drug Abuse Patient Records regulations: The Federal rules restrict any use of the information to criminally investigate or prosecute any alcohol or drug abuse patient.[facility] Reason for Visit (unrecogniz ed section and content) Reason Comments New Patient Evaluation Specialty Diagnoses / Procedures Referred By Contac t Referred To Contact MR IMAGING Diagnoses Tremor Procedures MRI BRAIN WO IVCON MRI BRAIN BRAIN STEM W/O CONTRAST MATERIAL Carla Weir PA-C [address] [place] [address] [place] [address] Referral ID Status Reason Start Date Expiration Date V isits Requested Visits Authorized [id number] Closed Auto-Generate d Referral 12/08/2023 01/06/2025 1 1 Reason Comments Results Specialty Diagnoses / Procedures Referred By Contac t Referred To Contact CT IMAGING Diagnoses Cerebral infarction, unspecified mechanism (HCC) Procedures CTA NECK W IVCON CT ANGIOGRAPHY NECK W/CONTRAST/NONCONTRAST Carla Weir PA-C [address] [place] [address] [place] [address] Referral ID Status Reason Start Date Expiration Date V isits Requested Visits Authorized [id number] Closed Auto-Generate d Referral 01/07/2024 02/05/2025 1 1 Reason Comments Results Reason Comments Results Uploaded echocardiog vimal results to [facility] Reason Comments Patient Update Appointment Reason Comments Patient Update [employer] Reason Comments Follow Up Reason Comments Appointment Heart Failure Pharma cist Appt Reason Comments Forms Reason Comments Consult Specialty Diagnoses / Procedures Referred By Contac t Referred To Contact Neurology Diagnoses Parkinsonism, unspecified Parkinsonism type (HCC) Procedures CONSULT TO NEUROLOGY OFFICE/OUTPATIENT [facility] 60 MINUTES Carla Weir PA-C [address] [place] [address] Miranda Del Rio MD [address] [place] [address] [place] [address] Referral ID Status Reason Start Date Expiration Date V isits Requested Visits Authorized [id number] Closed PCP Requested Referral 12/08/2023 12/07/2024 1 1 Reason Comments Establish Care Reason Comments Radiology NM Specialty Diagnoses / Procedures Referred By Contac t Referred To Contact MOLECULAR & FUNCTIONAL IMAGING Diagnoses Heart failure with mildly reduced ejection fraction (HFmrEF) (HCC) Procedures NM SPECT/CT CARDIAC AMYLOID RP LOCLZJ NÉSTOR SPECT W/CT 1 AREA 1 DAY IMAGING Marcell Jensen MD [facility] [address] [place] [address] Molecular & Functional Imaging [address] [place] [address] Referral ID Status Reason Start Date Expiration Date V isits Requested Visits Authorized [id number] Closed Auto-Generate d Referral 04/18/2024 04/08/2025 1 1 Reason Comments Heart Failure Reason Comments Cardiac Clearance form for t otal knee arthoplasty Cardiac Clearance form for total knee arthoplasty from [facility]. Reason Onset Date Comments Refill Request 05/31/2024 Reason Comments Blood in Urine Pt came in for blood in urine that started 2 days ago. Pt is from home and daughter said that pt has been more confused lately. Pt had left knee replacement last month and has had troubles walking since then. Pt A/O x4, GCS 15. Specialty Diagnoses / Procedures Referred By Blessing romero Referred To Contact Diagnoses Septic shock (HCC) Pain of lower extremity, unspecified laterality Procedures .. Baldev Bosch MD [address] [place] [id number] Phone: tel: fax: [facility] [address] [place] [address] Phone: tel: Referral ID Status Reason Start Date Expiration Date Visits Re quested Visits Authorized [id number] 1 1 Reason Comments Home Care Reason Comments Orders Home Care Reason Onset Date Comments Blood in Urine 07/26/2024 Other 07/26/2024 New urology appo intment Reason Comments Hospital F/U No concerns Reason Comments Patient Update Reason Comments Follow Up Reason Comments Orders Reason Comments Orders [facility] medical clearance form received Reason Comments Orders [facility] order received ( Multiple orders ) Reason Comments Diabetic Eye Exam Type 2 NIDDM Specialty Diagnoses / Procedures Referred By Blessing t Referred To Contact Ophthalmology Diagnoses Screening for diabetic retinopathy Procedures CONSULT TO OPHTHALMOLOGY OFFICE/OUTPATIENT NEW HIGH MDM 60 MINUTES Aga Benitez MD [address] [place] [address] Referral ID Status Reason Start Date Expiration Date V isits Requested Visits Authorized [id number] Closed PCP Requested Referral 08/08/2024 08/08/2025 1 1 Reason Comments Orders [facility]HC order received Reason Comments New Itching Diabetic Foot Care Specialty Diagnoses / Procedures Referred By Blessing t Referred To Contact Podiatry Diagnoses Type 2 diabetes mellitus without complication, without long-term current use of insulin (HCC) Procedures CONSULT TO PODIATRY OFFICE/OUTPATIENT NEW HIGH MDM 60 MINUTES Aga Benitez MD [address] [place] [address] Referral ID Status Reason Start Date Expiration Date V isits Requested Visits Authorized [id number] Closed PCP Requested Referral 08/08/2024 08/08/2025 1 1 Reason Comments Orders [facility] [facility] work order received Reason Comments Refill Request Reason Comments Nausea & Vomiting Nausea, vomiting, kb dyaches x 10 days Reason Comments Head Pain Left-side Fell 3 days ago Reason Comments OT EVAL Specialty Diagnoses / Procedures Referred By Blessing t Referred To Contact Occupational Therapy / OCCUPATIONAL THERAPY Diagnoses driving eval Procedures NEW RS OT COMM REINTEGRATION Amaya No MD [address] [place] [address] Phone: tel: fax: Leon Huynh, OTR/L [address] [place] [address] Phone: tel: Referral ID Status Reason Start Date Expiration Date V isits Requested Visits Authorized [id number] Authorized 02/20/2025 10/04/2025 2 2 Reason Comments OT EVAL OT Discharge Specialty Diagnoses / Procedures Referred By Blessing t Referred To Contact Occupational Therapy / OCCUPATIONAL THERAPY Diagnoses driving eval Procedures NEW RS OT COMM REINTEGRATION Amaya No MD [address] [place] [address] Phone: tel:[phone] fax:[phone] Leon Huynh, OTR/L [address] [place] [address] Phone: tel: Referral ID Status Reason Start Date Expiration Date Visits Re quested Visits Authorized [id number] Closed 02/20/2025 10/04/2025 2 2 Reason Comments Blurred Vision Both Eyes Reason Comments Consult Reason Comments Established Patient Follow Up Diabetic Foot Check Reason Comments Follow Up Increased confusion, irritability, agitation, sleeping Reason Comments Consult OAB (overactive blad lloyd) Reason Comments Appointment Reason Comments Neuropsych Testing Specialty Diagnoses / Procedures Referred By Blessing t Referred To Contact PSYCHIATRY Diagnoses Parkinson's disease without dyskinesia or fluctuating manifestations (HCC) 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) Procedures NEUROPSYCHOLOGICAL TESTING CONSULT NEUROBEHAVIORAL STATUS XM PHYS/QHP 1ST HOUR NEUROPSYCHOLOGICAL TST EVAL PHYS/QHP 1ST HOUR NEUROPSYCHOLOGICAL TST EVAL PHYS/QHP EA ADDL HR PSYCL/NRPSYCL TST TECH 2+ TST 1ST 30 MIN PSYCL/NRPSYCL TST TECH 2+ TST EA ADDL 30 MIN Miranda Del Rio MD [address] [place] [address] Phone: tel: fax: Nick Ennis, PhD [address] [facility] [address] [place] [address] Phone: tel: fax: Referral ID Status Reason Start Date Expiration Date Visits Requested Visits Authorized [id number] Authorized PCP Requested Referral 03/27/2025 10/04/2025 5 5 Reason Comments New Patient Specialty Diagnoses / Procedures Referred By Contac t Referred To Contact Diagnoses Spinal stenosis of lumbar region with neurogenic claudication Procedures CONSULT TO SPINE SURGERY OFFICE/OUTPATIENT NEW HIGH MDM 60 MINUTES Tammi Garcia DO [address] [place] [address] Phone: tel: fax: Referral ID Status Reason Start Date Expiration Date V isits Requested Visits Authorized [id number] Closed PCP Requested Referral 03/14/2025 03/14/2026 1 1 Reason Comments Anesthesia Consult Specialty Diagnoses / Procedures Referred By Contac t Referred To Contact Diagnoses Spinal stenosis of lumbar region with neurogenic claudication Procedures REFER TO [facility] - PREOPERATIVE OPTIMIZATION OFFICE/OUTPATIENT NEW [facility] [place] [address] [place] [address] Phone: tel: fax: Referral ID Status Reason Start Date Expiration Date V isits Requested Visits Authorized [id number] Closed PCP Requested Referral 05/02/2025 05/02/2026 1 1 Reason Comments Results Specialty Diagnoses / Procedures Referred By Contac t Referred To Contact PSYCHIATRY Diagnoses Parkinson's disease without dyskinesia or fluctuating manifestations (HCC) 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) Procedures NEUROBEHAVIORAL STATUS XM PHYS/QHP 1ST HOUR NEUROPSYCHOLOGICAL TST EVAL PHYS/QHP 1ST HOUR NEUROPSYCHOLOGICAL TST EVAL PHYS/QHP EA ADDL HR PSYCL/NRPSYCL TST TECH 2+ TST 1ST 30 MIN PSYCL/NRPSYCL TST TECH 2+ TST EA ADDL 30 MIN Miranda Del Rio MD [address] [place] [address] Phone: tel: fax: Nick Ennis, PhD [address] [facility] [address] [place] [address] Phone: tel: fax: Reason Comments Home Care Confirmation Calls Scheduled Active and Recently Administ leolad Medications (unrecognized section and content) Medication Order 07/25/2024 07/26/2024 07/27/2024 amLODIPine (Norvasc) tablet 10 mg 10 mg, Oral, Daily, First dose on Thu07/25/24 at 1755 1754 (Held by provider - Provider: Anil Julien DO - Reason: Change in vital signs)1755 (Dose Auto Held) 0800 (Dose Auto Held) 0711 (Unheld by provider - Provider: Anil Julien DO)0856 (Given - Provider: Gianna Fishman RN) atorvastatin (Lipitor) tablet 20 mg 20 mg, Oral, Nightly, First dose on Thu07/25/24 at 2099 2015 (Given - Provider: Lisa Pelayo RN) 2052 (Given - Provider: Alma Jade, JASON) carbidopa-levodopa (Sinemet) 25-100 MG per tablet 1 tablet 1 tablet, Oral, 3 times daily, First dose on Thu07/25/24 at 2099 2015 (Given - Provider: Lisa Pelayo RN) 0912 (Given - Provider: Gianna Fishman, JASON)1614 (Given - Provider: Gianna Fishman, JASON)2052 (Given - Provider: Alma Jade, JASON) 0857 (Given - Provider: Gianna Fishman, AJSON)1506 (Given - Provider: Gianna Fishman, JASON) cefepime (Maxipime) 2,000 mg in sodium chloride 0.9 % 50 mL IVPB Mini-Bag Plus (CANCELED) 2,000 mg, IntraVENous, at 100 mL/hr, Administer over 30 Minutes, Every 8 hours, First dose on Thu07/25/24 at 1555, Mini-Bag Plus bag, Suspected Indication (Select all that apply): Urinary Tract Infection 1555 (New Bag - Provider: Edel Adorno RN)1625 (Stopped - Provider: Kamilla Ratliff RN) citalopram (CeleXA) tablet 20 mg 20 mg, Oral, Daily, First dose on Thu07/25/24 at 1755 1855 (Given - Provider: Edel Adorno RN) 0912 (Given - Provider: Gianna Fishman RN) 0857 (Given - Provider: Gianna Fishman RN) cloNIDine (Catapres) tablet 0.2 mg 0.2 mg, Oral, Every 8 hours, First dose on Thu07/25/24 at 1755, On hold since Thu07/25/2024 at 1754 until manually unheld 175 (Held by provider - Provider: Anil Julien DO - Reason: Change in vital signs)1755 (Dose Auto Held) 0155 (Dose Auto Held)0955 (Dose Auto Held)1755 (Dose Auto Held) 0155 (Dose Auto Held)0955 (Dose Auto Held)1755 (Dose Auto Held)2025 (Unheld by provider - Provider: Automatic Discharge Provider) dapagliflozin (Farxiga) tablet 10 mg 10 mg, Oral, Daily with breakfast, First dose on Thu07/26/24 at 0800 0912 (Given - Provider: Gianna Fishman RN) 0856 (Given - Provider: Gianna Fishman RN) Insulin Lispro (Humalog) injection 0-6 Units 0-6 Units, SubCUTAneous, 3 times daily with meals, First dose on Thu07/25/24 at 1755, Low Dose Correction Algorithm Glucose: Dose: LESS than 139 No Insulin 140-199 1 Unit 200-249 2 Units 250-299 3 Units 300-349 4 Units 350-400 5 Units Above 400 6 Units 1755 (Not Given - Provider: Kamilla Ratliff RN - Reason: Order parameters not met - Comment: BG 134) 0800 (Not Given - Provider: Gianna Fishman RN - Reason: Order parameters not met)1200 (Not Given - Provider: Gianna Fishman RN - Reason: Order parameters not met)1849 (Not Given - Provider: Oskar Marin RN - Reason: Order parameters not met) 0800 (Not Given - Provider: Gianna Fishman RN - Reason: Order parameters not met)1200 (Not Given - Provider: Gianna Fishman RN - Reason: Order parameters not met)1700 (Not Given - Provider: Gianna Fishman RN - Reason: Other - Comment: pt would not like dinner due to d/c order in and plan for leaving at 1700) lactated ringers bolus 1,000 mL (COMPLETED) 1,000 mL, IntraVENous, at 500 mL/hr, Administer over 2 Hours, Once, On Thu07/25/24 at 1755, For 1 dose 1755 (New Bag - Provider: Edel Adorno RN)2022 (Stopped - Provider: Kamilla Ratliff RN) lisinopril tablet 10 mg 10 mg, Oral, Daily, First dose on Thu07/25/24 at 1755 1754 (Held by provider - Provider: Anil Julien DO - Reason: Change in vital signs)1755 (Dose Auto Held) 0800 (Dose Auto Held) 0800 (Dose Auto Held)1122 (Unheld by provider - Provider: Anil Julien DO) pantoprazole (ProtoNix) EC tablet 40 mg 40 mg, Oral, Daily before breakfast, First dose on Thu07/26/24 at 0600, Do not crush, chew, or split. 0539 (Given - Provider: Irma Fontenot RN) 0510 (Given - Provider: Alma Jade RN) piperacillin-tazobactam (Zosyn) IVPB 3,375 mg (CANCELED) 3,375 mg, IntraVENous, at 12.5 mL/hr, Administer over 4 Hours, Every 8 hours, First dose (after last modification) on Thu07/26/24 at 0000, Day 1: 07/26/24 Original dose: pip/tazo 3375 mg every 6 hours over 30 minutes Dose adjusted for initial med-surg dosing for CrCl >20 mL/min per P&T Committee, ARACELI <= 16 mcg/mL premix bag, Suspected Indication (Select all that apply): Bloodstream Infection, Urinary Tract Infection 0002 (New Bag - Provider: Irma Fontenot RN)0402 (Stopped - Provider: Irma Fontenot RN)0913 (New Bag - Provider: Gianna Fishman RN)1313 (Stopped - Provider: Gianna Fishman RN)1614 (New Bag - Provider: Gianna Fishman RN)2013 (Stopped - Provider: Alma Jade RN) 0020 (New Bag - Provider: Alma Jade RN)0420 (Stopped - Provider: Alma Jade RN)0900 (New Bag - Provider: Gianna Fishman RN)1005 (Stopped - Provider: Gianna Fishman RN) polyethylene glycol (PEG) 3350 (Miralax) packet 17 g 17 g, Oral, Daily, First dose (after last modification) on Thu07/26/24 at 0900, 1st line for treatment of constipation - give scheduled if no bowel movement in past 24 hours. 0913 (Not Given - Provider: Gianna Fishman RN - Reason: Patient/family refused) 0857 (Not Given - Provider: Gianna Fishman RN - Reason: Patient/family refused) senna-docusate sodium (Senokot-S) 8.6-50 MG tablet 1 tablet 1 tablet, Oral, 2 times daily, First dose on Thu07/25/24 at 2100 2015 (Given - Provider: Lisa Pelayo RN) 0912 (Given - Provider: Gianna Fishman RN)2100 (Not Given - Provider: Alma Jade RN - Reason: Patient/family refused) 0856 (Given - Provider: Gianna Fishman RN) sodium chloride 0.9 % bolus 500 mL (COMPLETED) 500 mL, IntraVENous, at 500 mL/hr, Administer over 1 Hours, Once, On Thu07/25/24 at 1605, For 1 dose 1605 (New Bag - Provider: Edel Adorno RN)1713 (Stopped - Provider: Kamilla Ratliff RN) spironolactone (Aldactone) tablet 25 mg 25 mg, Oral, Daily, First dose on Thu07/25/24 at 1755, On hold since Thu07/25/2024 at 1754 until manually unheld 175 (Held by provider - Provider: Anil Julien DO - Reason: Change in vital signs)1755 (Dose Auto Held) 0800 (Dose Auto Held) 0800 (Dose Auto Held)2025 (Unheld by provider - Provider: Automatic Discharge Provider) sulfamethoxazole-trimet hoprim (Bactrim DS) 800-160 MG per tablet 1 tablet 1 tablet, Oral, 2 times daily, First dose on Thu07/27/24 at 1500, For 15 doses, Suspected Indication (Select all that apply): Urinary Tract Infection 1506 (Given - Provider: Gianna Fishman RN) tamsulosin (Flomax) 24 hr capsule 0.4 mg 0.4 mg, Oral, Daily, First dose on Thu07/25/24 at 1755, Do not crush, chew, or split. 1754 (Held by provider - Provider: Anil Julien DO - Reason: Change in vital signs)1755 (Dose Auto Held) 0800 (Dose Auto Held)1025 (Unheld by provider - Provider: Anil Julien DO) 0856 (Given - Provider: Gianna Fishman RN) vancomycin IVPB 1000 mg in 200 mL NS (premix) (CANCELED) 1,000 mg, IntraVENous, at 133.3 mL/hr, Administer over 90 Minutes, Every 12 hours, First dose (after last modification) on Thu07/26/24 at 0800, premix bag, Suspected Indication (Select all that apply): Sepsis of Unknown Etiology 0914 (New Bag - Provider: Gianna Fishman, JASON)1044 (Stopped - Provider: Gianna Fishman RN) vancomycin IVPB 1250 mg in 250 mL NS (premix) (COMPLETED) 1,250 mg, IntraVENous, at 166.7 mL/hr, Administer over 90 Minutes, Once, On Thu07/25/24 at 1555, For 1 dose, premix bag, Suspected Indication (Select all that apply): Urinary Tract Infection 1714 (New Bag - Provider: Kamilla Ratliff RN)1844 (Stopped - Provider: Edel Adorno RN) PRN Medication Order 07/25/2024 07/26/2024 07/27/2024 acetaminophen (Tylenol) suppository 650 mg(Linked Group 1) 650 mg, Rectal, Every 6 hours PRN, mild pain (1-3), fever, For temp greater than 100.4 F (38 C), Starting on Thu07/25/24 at 1753, Administer if oral route cannot be used. Maximum dose of acetaminophen is 4000 mg from all sources in 24 hours. acetaminophen (Tylenol) tablet 650 mg(Linked Group 1) 650 mg, Oral, Every 6 hours PRN, mild pain (1-3), fever, For temp greater than 100.4 F (38 C), Starting on Thu07/25/24 at 1753, Maximum dose of acetaminophen is 4000 mg from all sources in 24 hours. dextrose 5 % infusion 100 mL/hr, IntraVENous, PRN, Blood sugar less than 70mg/dL, Starting on Thu07/25/24 at 1753, Start infusion following administration of dextrose 50% or glucagon. dextrose 50 % solution 12.5 g 12.5 g, IntraVENous, PRN, low blood sugar, Blood glucose less than 70 mg/dL and patient NOT ALERT or NPO., Starting on Thu07/25/24 at 1753, If patient does not respond within 5 minutes, repeat dose x1. Start D5W at 100 mL/hour until ordering provider can be reached. Repeat blood glucose in 15 minutes. If blood glucose is less than 70 mg/dL, repeat treatment and recheck blood glucose in 15 minutes x2. If using Glucostabilizer, dose as instructed per system. glucagon (human recombinant) injection 1 mg 1 mg, IntraMUSCular, PRN, low blood sugar, Blood glucose less than 70 mg/dL and patient NOT ALERT or NPO and does not have IV access., Starting on Thu07/25/24 at 1753, After administration, attempt intravenous access and start D5W at 100 mL/hr. Repeat blood glucose in 15 minutes x2 and notify provider. glucose oral gel 15 g 15 g, Oral, As needed, low blood sugar, Starting on Thu07/25/24 at 1753, If blood glucose less than 50 mg/dL and patient ALERT and NOT NPO, give 2 tubes glucose gel. If blood glucose less than 70 mg/dL and patient ALERT and NOT NPO, give 1 tube glucose gel. Repeat blood glucose in 15 minutes. If blood glucose is less than 70 mg/dL, repeat treatment and recheck blood glucose in 15 minutes x2 and notify provider. hydrOXYzine pamoate (Vistaril) capsule 25 mg 25 mg, Oral, Every 6 hours PRN, anxiety, allergies, Starting on Thu07/25/24 at 1908 2015 (Given - Provider: Lisa Pelayo RN) ondansetron (Zofran) injection 4 mg(Linked Group 2) 4 mg, IntraVENous, Every 6 hours PRN, nausea, vomiting, Starting on Thu07/25/24 at 1753, 1st Line. Give IV if patient is unable to take orally. If inadequate response within 60 minutes, proceed to next-line agent or contact provider if no further options ordered. ondansetron ODT (Zofran-ODT) disintegrating tablet 4 mg(Linked Group 2) 4 mg, Oral, Every 8 hours PRN, nausea, vomiting, Starting on Thu07/25/24 at 1753, 1st Line. If inadequate response within 60 minutes, proceed to next-line agent or contact provider if no further options ordered. Patient should allow tablet to dissolve on tongue. Do not remove from blister pack until just before administering. Linked Groups Order Group 1: acetaminophen (Tylenol) tablet 650 mgJump to med 650 mg, Oral, Every 6 hours PRN, mild pain (1-3), fever, For temp greater than 100.4 F (38 C), Starting on Thu07/25/24 at 1753, Maximum dose of acetaminophen is 4000 mg from all sources in 24 hours. Or acetaminophen (Tylenol) suppository 650 mgJump to med 650 mg, Rectal, Every 6 hours PRN, mild pain (1-3), fever, For temp greater than 100.4 F (38 C), Starting on Thu07/25/24 at 1753, Administer if oral route cannot be used. Maximum dose of acetaminophen is 4000 mg from all sources in 24 hours. Group 2: ondansetron ODT (Zofran-ODT) disintegrating tablet 4 mgJump to med 4 mg, Oral, Every 8 hours PRN, nausea, vomiting, Starting on Thu07/25/24 at 1753, 1st Line. If inadequate response within 60 minutes, proceed to next-line agent or contact provider if no further options ordered. Patient should allow tablet to dissolve on tongue. Do not remove from blister pack until just before administering. Or ondansetron (Zofran) injection 4 mgJump to med 4 mg, IntraVENous, Every 6 hours PRN, nausea, vomiting, Starting on Thu07/25/24 at 1753, 1st Line. Give IV if patient is unable to take orally. If inadequate response within 60 minutes, proceed to next-line agent or contact provider if no further options ordered. FOR RECORDS PERTAINING TO PATIENTS WHO ARE OR HAVE BEEN ENROLLED IN A CHEMICAL DEPENDENCY/SUBSTANCEABUSE PROGRAM, SOME INFORMATION MAY BE OMITTED. This clinical summary was aggregated from multiple sources. Caution should be exercised in using it in the provision of clinical care. This summary normalizes information from multiple sources, and as a consequence, information in this document may materially change the coding, format and clinical context of patient data. In addition, data may be omitted in some cases. CLINICAL DECISIONS SHOULD BE BASED ON THE PRIMARY CLINICAL RECORDS. [facility] provides no warranty or guarantee of the accuracy or completeness of information in this document.
--- NOTE | 2025-05-29 20:39 | HP.PCM_ITS ---
HPI - General General Date of Admission: 05/29/25 Date of Service: 05/30/25 Chief Complaint: Here for rehabilitation. HPI Narrative NICK ARORA, is a 65 Male who presents with followin05/26/2025 [facility] ED weakness. Weakness, difficulty walking, he had lumbar decompression surgery at [facility] 05/24/2025, discharged home day after surgery. Daughter asked for SNF, but provider team felt patient doing well enough to go home. Difficulty getting up on his own, unable to help him. Fell in bathroom, hit head, hit lower back. CT brain negative, CT cervical spine negative, CT lumbar spine negative. Chest X-ray bilateral atelectasis versus pneumonia, no cough, pneumonia not likely. Unable to go home, needs SNF placement. 05/26/2025 Admit [facility]. PT/OT/CM for SNF. Tylenol, Oxycodone for pain. 05/27/2025 Back pain. PT/OT/CM. Tylenol, oxycodone, morphine iv as needed for pain. 05/28/2025 Right calf pain overnight. Doppler ultrasound bilateral lower extremity ordered to rule out DVT 05/29/2025 Patient given bowel regimen for constipation. 05/29/2025 Admit to TCU with debility, here for rehabilitation, strengthening, prior to discharge home with . [facility] Medical History (Updated 05/29/25 @ 20:[address] Constantin Cole MD) Dementia Pain in joint involving right ankle and foot Wears glasses Depression Bladder disease High cholesterol Back pain Parkinson's disease Stroke/cerebrovascular accident Heartburn Non-smoker History of pain when walking History of edema History of echocardiogram Cardiology follow-up encounter Bilateral primary osteoarthritis of knee Pain in both knees Family history of prostate problems Kidney stones Hypertension Diabetes Arthritis Home Medications ?Medication ?Instructions ?Recorded ?Last Taken ?Type citalopram 40 mg tablet 40 mg PO DAILY DEPRESSION #9 0 02/07/25 05/29/25 11:10 Rx TABLETS clonidine HCl 0.2 mg tablet 0.2 mg PO BID BP #180 tabs 02/07/25 05/29/25 11:10 Rx lisinopril 10 mg tablet 10 mg PO QDAY BP #90 tabs 05/29/25 06:40 Rx pantoprazole 40 mg tablet,delayed 40 mg PO BID GERD #1 80 tabs 02/08/25 05/29/25 11:10 Rx release tamsulosin 0.4 mg capsule 0.4 mg PO QHS PROSTATE #90 c aps 02/08/25 05/28/25 20:50 Rx carbidopa 25 mg-levodopa 100 mg 2 tab PO TID PARKINSON 02/09/25 05/29/25 11:10 History tablet acetaminophen 500 mg tablet 1,000 mg (2 x 500 mg) PO Q 8 Pain 03/27/25 05/29/25 13:50 Rx #90 tabs aspirin 81 mg tablet,delayed 81 mg PO DAILY HEART HEAL TH #90 03/27/25 05/29/25 11:15 Rx release tabs dapagliflozin propanediol 10 mg 10 mg PO DAILY CHOLEST SOWMYA #90 tabs 03/27/25 05/25/25 Rx tablet oxycodone 5 mg tablet 5 mg PO 4X/DAY PRN PRN pain 05/26/25 05/28/25 History atorvastatin 20 mg tablet 20 mg PO QHS Cholesterol #90 tabs 05/29/25 05/28/25 20:55 Rx quetiapine 25 mg tablet 50 mg (2 x 25 mg) PO QHS Moo d #0 05/29/25 Unknown Rx tabs Allergy/AdvReac Type Severity Reaction Status Date / Time acetaminophen (From Vicodin) Allergy Intermediate Nausea/Vom/ Verified 05/26/25 10:29 Diarrhea hydrocodone (From Vicodin) Allergy Intermediate Nausea/Vom/ Verified 05/26/25 10:29 Diarrhea gabapentin Allergy Mild memory Verified 05/26/25 10:29 Family History Mother Hypertension Myocardial infarction Colon cancer CVA (cerebral vascular accident) Depression Diabetes Brother Colon cancer Cancer STOMACH CVA (cerebral vascular accident) Hypertension Father Hypertension Sister Diabetes Surgical History (Updated 05/29/25 @ 20:[address] Constantin Cole MD) H/O laminectomy S/P knee replacement S/P total knee arthroplasty Social History household members: spouse current occupational status: retired current occupation: [employer] Smoking Status: Never smoker Electronic Cigarette Use: not used alcohol intake: never substance use type: does not use what type of physical activity do you participate in: none seatbelt use: sometimes do you feel safe at home: Yes ROS Constitutional Constitutional: Reports weakness; Denies chills, fever(s) or weight gain ENT HEENT: Denies headache(s), nasal congestion or nasal discharge Cardiovascular Cardiovascular: Denies chest pain or palpitations Respiratory/Chest Respiratory/Chest: Denies cough, excessive phlegm production or shortness of breath with exertion Gastrointestinal Gastrointestinal: Denies abdominal pain, nausea or vomiting Genitourinary Genitourinary: Denies dysuria Musculoskeletal Musculoskeletal: Denies joint pain or joint swelling Integumentary Integumentary: Denies rash or wounds Neurologic Neurologic: Denies focal weakness, numbness or tingling Psychiatric Psychiatric: Denies anxiety, auditory hallucinations, depression, homicidal ideation or suicidal ideation Vital Signs Vital Signs Vital Signs: 05/29/25 19:45 Temperature 98.9 F Temperature Source Oral Pulse Rate 77 Respiratory Rate 19 H Blood Pressure 161/90 H Blood Pressure Mean 113 Blood Pressure Source Monitor Pulse Ox 96 Oxygen Delivery Method Room Air Physical Exam Const alert General Appearance: cooperative HEENT normocephalic Eyes PERRL and EOMs intact bilaterally Neck supple, no JVD and no carotid bruits Resp normal respiratory effort, normal air movement and clear to auscultation bilaterally Cardio regular rate and regular rhythm GI normal to inspection, nondistended, normoactive bowel sounds, non-tender and non-distended Extremity normal capillary refill General Extremity: Negative for edema Skin no rashes or lesions noted General Skin Exam: no breakdown Psych affect normal Appearance: appropriate Results Lab / Micro Data 05/30/25 05:45 05/30/25 05:45 Assessment & Plan Assessment/Plan (1) Debility: (2) Generalized weakness: (3) Status post lumbar laminectomy: (4) Dementia, unspecified, with behavioral disturbance: (5) Sundowning: (6) Depression: (7) Essential hypertension: (8) GERD (gastroesophageal reflux disease): (9) BPH (benign prostatic hyperplasia): QUALIFIERS: Lower urinary tract symptom detail: post-void dribbling Lower urinary tract symptom presence: symptoms present Qualified Code(s): N40.1 - Benign prostatic hyperplasia with lower urinary tract symptoms; N39.43 - Post-void dribbling (10) Parkinson's disease: (11) Type 2 diabetes mellitus with hyperglycemia: PLAN: Plan 65 year old male with below past medical history hospitalized for debility 2/2 lumbar laminectomy/fusion surger 05/24/2025, failed home discharge, admitted to TCU with debility, here for rehabilitation, strengthening, prior to discharge home with . * Debility - PT/OT. * Pain - Tylenol 1000mg q8, Oxycodone 5mg q4 prn pain. * Bowel - Senna/colace 2 tablets bid, Magnesium citrate 300mL daily prn. * Adult immunization - Administer pneumonia vaccine, covid vaccine, flu vaccine as appropriate. * DVT prophylaxis - Lovenox 40mg sc daily. * CV prophylaxis - Aspirin 81mg daily. * Hyperlipidemia - Atorvastatin 20mg qhs. * Parkinson Disease - Sinemet 25/100mg 2 tablets tidac. * Hypertension - Clonidine 0.2mg bid, Lisinopril 10mg daily. * Diabetes Mellitus II - Jardiance 25mg daily. * GERD - Pantoprazole 40mg bid. * BPH - Tamsulosin 0.4mg daily. The following psychotropic medication was present on admission: Citalopram 40mg daily. Psychotropic medication therapy is indicated for a diagnosis of: Major depression. Based on my clinical evaluation, continuation of the medication is necessary at this time. Gradual dose reduction plan (select one): ____ GDR will be attempted. Will monitor patient symptoms and behaviors in response to GDR. __x__ GRD contraindicated. 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 The following psychotropic medication was present on admission: Seroquel 50mg qhs. Psychotropic medication therapy is indicated for a diagnosis of: Sundowning. Based on my clinical evaluation, continuation of the medication is necessary at this time. Gradual dose reduction plan (select one): ____ GDR will be attempted. Will monitor patient symptoms and behaviors in response to GDR. __x__ GRD contraindicated. 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
[2025-05-30 06:07] LABS: Hematocrit 39.0 % (40-54); Hemoglobin 13.2 g/dL (13.0-16.5); Immature Granulocytes Count 0.040 X10^3/uL (0.0-0.0); Mean Corp Hgb Conc 33.8 g/dL (32-36); Mean Corpuscular Volume 90.7 fL (80-94); Mean Platelet Vol. 9.2 fl (6.2-12.0); NRBC Flagged by Analyzer 0 % (0-5); Platelet Count 280 K/mm3 (150-450); RBC Distribution Width CV 12.1 % (11.6-14.6); RBC Distribution Width SD 40.4 fl (35.1-43.9); Red Blood Count 4.30 M/mm3 (4.6-6.2); White Blood Count 8.4 K/mm3 (4.4-11.0)
--- NOTE | 2025-05-30 07:57 | PHA.CONS_ITS ---
TCU RX Drug Regimen Review Subjective/Objective Subjective/Objective Subjective: TCU Admission. 65 YOM presented to ER with weakness. Hospitalized for debility 2/2 lumbar laminectomy/fusion surgery 05/24/2025, failed home discharge. Admitted to TCU with debility for strengthening and rehabilitation. Objective: Allergies acetaminophen (From Vicodin) Allergy (Intermediate, Verified 05/26/25 10:29) Nausea/Vom/Diarrhea hydrocodone (From Vicodin) Allergy (Intermediate, Verified 05/26/25 10:29) Nausea/Vom/Diarrhea gabapentin Allergy (Mild, Verified 05/26/25 10:29) memory behaviors Current Medications Generic Name Dose Route Start Last Admin Trade Name Freq PRN Reason Stop Dose Admin Acetaminophen 1,000 mg 05/29/25 22:00 05/30/25 06:00 Acetaminophen 500 Mg Tablet PO 1,000 mg Q8 KHADAR Administration Aspirin 81 mg 05/30/25 08:00 Aspirin E.C. 81 Mg Tablet PO BREAKFAST KHADAR Atorvastatin Calcium 20 mg 05/29/25 22:00 05/29/25 22:23 Atorvastatin Calcium 20 Mg Tablet PO 20 mg QHS KHADAR Administration Carbidopa/Levodopa 2 tablet 05/30/25 06:45 05/30/25 06:00 Carbidopa/Levodopa 25/100 Tablet PO 2 tablet TIDAC KHADAR Administration Citalopram Hydrobromide 40 mg 05/30/25 10:00 Citalopram 40 Mg Tablet PO DAILY KHADAR Clonidine 0.2 mg 05/29/25 22:00 05/29/25 22:22 Clonidine Hcl 0.2 Mg Tablet PO 0.2 mg BID KHADAR Administration Protocol Empagliflozin 25 mg 05/30/25 10:00 Empagliflozin 25 Mg Tablet PO DAILY KHADAR Enoxaparin Sodium 40 mg 05/30/25 06:00 Enoxaparin 40 Mg/0.4 Ml Syringe SC DAILY@0600 KHADAR Lisinopril 10 mg 05/30/25 10:00 Lisinopril 10 Mg Tablet PO DAILY KHADAR Protocol Magnesium Citrate 300 ml 05/29/25 20:48 Magnesium Citrate 300 Ml PO DAILY PRN Constipation Oxycodone HCl 5 mg 05/29/25 20:48 Oxycodone 5 Mg Tablet PO Q4H PRN PRN Pain Score 1-10 Pantoprazole Sodium 40 mg 05/29/25 22:00 05/29/25 22:23 Pantoprazole Sodium 40 Mg Tablet PO 40 mg BID KHADAR Administration Quetiapine Fumarate 50 mg 05/29/25 22:00 05/29/25 22:22 Quetiapine 25 Mg Tablet PO 50 mg QHS KHADAR Administration Protocol Senna/Docusate Sodium 2 tablet 05/29/25 22:00 05/29/25 22:23 Senna/Docusate Sodium 1 Tablet PO Not Given BID KHADAR Sodium Chloride 10 - 40 ml 05/29/25 19:55 0.9% Saline Lock 10 Ml Syringe IV UD PRN SALINE FLUSH Tamsulosin HCl 0.4 mg 05/29/25 22:00 05/29/25 22:23 Tamsulosin Hcl 0.4 Mg Capsule PO 0.4 mg QHS KHADAR Administration Tuberculin PPD 0.1 ml 05/30/25 10:00 Tuberculin,Purif.Prot.Deriv. 50 Tu/Ml Vial ID 05/30/25 10:01 X1 ONE Tuberculin PPD 0.1 ml 06/06/25 10:00 Tuberculin,Purif.Prot.Deriv. 50 Tu/Ml Vial ID 06/06/25 10:01 X1 ONE Problem List Type 2 diabetes mellitus with hyperglycemia (Acute) Parkinson's disease (Acute) GERD (gastroesophageal reflux disease) (Acute) Depression (Acute) Sundowning (Acute) Dementia, unspecified, with behavioral disturbance (Acute) Status post lumbar laminectomy (Acute) Debility (Acute) Generalized weakness (Acute) Essential hypertension (Acute) BPH (benign prostatic hyperplasia) (Acute) Vital Signs Temp Pulse Resp BP Pulse Ox O2 Del Method 98.9 F 77 19 H 161/90 H 96 Room Air 05/29/25 19:45 05/29/25 19:45 05/29/25 19:45 05/29/25 19:45 05/29/25 19:45 05/29/25 22:00 Oxygen Delivery Method Room Air Sodium Cancelled 05/30/25 05:45 Potassium Cancelled 05/30/25 05:45 Chloride Cancelled 05/30/25 05:45 Carbon Dioxide Cancelled 05/30/25 05:45 Anion Gap Cancelled 05/30/25 05:45 BUN Cancelled 05/30/25 05:45 Creatinine Cancelled 05/30/25 05:45 Est GFR (MDRD) Non-Af Cancelled 05/30/25 05:45 BUN/Creatinine Ratio Cancelled 05/30/25 05:45 Glucose Cancelled 05/30/25 05:45 Assessment/Plan: 1. Pain: acetaminophen 1000mg PO Q8 and oxycodone 5mg PO Q4H PRN pain 1-10. Last LFTs: 07/2024. Check LFTs if resident develops symptoms of hepatoxicity. Consider monitoring LFTs if patient using > 3 gm/day of acetaminophen for prolonged period. Do not exceed 4000 mg in 24 hours. Monitor for constipation (last BM: 05/29/25), respiratory depression (current RR range: 19), falls and sedation/delirium ([facility]). Resident hasn't received prn pain doses since admission. Monitor pain scores before/after prn administration for response, PRN pain medication usage, symptoms of pain/resident distress and ability to participate in therapy. 2. Bowel: senna/docusate 2T PO BID and magnesium citrate 300mL PO daily PRN constipation. Resident hasn't received prn doses since admission. Last document bowel movement: 05/29/25. Monitor for usage of prn medications, abdominal pain, frequency of bowel movements, diarrhea. Recommend holding bowel regimen if resident develops diarrhea. 3. DVT prophylaxis: enoxaparin 40mg SC daily. Please continue to monitor for S/S of bleeding/DVT, hemoglobin (last 13.2g/dL), platelets (last 280,000), renal function. Enoxaparin is renally dose medication. CrCl estimated =.? Dose appropriate for current renal function. Monitor serum creatine periodically. Assessment/Plan for indications treated with psychotropic medications: Medical chart and medication regimen reviewed. The following medication irregularities or issues were identified: 65 year old male with below past medical history hospitalized for debility 2/2 lumbar laminectomy/fusion surger 05/24/2025, failed home discharge, admitted to TCU with debility, here for rehabilitation, strengthening, prior to discharge home with . * Debility - PT/OT. * Pain - Tylenol 1000mg q8, Oxycodone 5mg q4 prn pain. * Bowel - Senna/colace 2 tablets bid, Magnesium citrate 300mL daily prn. * Adult immunization - Administer pneumonia vaccine, covid vaccine, flu vaccine as appropriate. * DVT prophylaxis - Lovenox 40mg sc daily. * CV prophylaxis - Aspirin 81mg daily. * Hyperlipidemia - Atorvastatin 20mg qhs. * Parkinson Disease - Sinemet 25/100mg 2 tablets tidac. * Hypertension - Clonidine 0.2mg bid, Lisinopril 10mg daily. * Diabetes Mellitus II - Jardiance 25mg daily. * GERD - Pantoprazole 40mg bid. * BPH - Tamsulosin 0.4mg daily. The following psychotropic medication was present on admission: Citalopram 40mg daily. Psychotropic medication therapy is indicated for a diagnosis of: Major depression. Based on my clinical evaluation, continuation of the medication is necessary at this time. Gradual dose reduction plan (select one): ____ GDR will be attempted. Will monitor patient symptoms and behaviors in re sponse to GDR. __x__ GRD contraindicated. Reason contraindicated: stable chronic half-way use. The following psychotropic medication was present on admission: Seroquel 50mg qhs. Psychotropic medication therapy is indicated for a diagnosis of: Sundowning. Based on my clinical evaluation, continuation of the medication is necessary at this time. Gradual dose reduction plan (select one): ____ GDR will be attempted. Will monitor patient symptoms and behaviors in response to GDR. __x__ GRD contraindicated. 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
--- NOTE | 2025-05-30 07:57 | PCM.PN.DRR ---
Documented by User: Rosalba Chandra 05/30/25 08:18 TCU RX Drug Regimen Review Subjective/Objective Subjective/Objective Subjective: TCU Admission. 65 YOM presented to ER with weakness. Hospitalized for debility 2/2 lumbar laminectomy/fusion surgery 05/24/2025, failed home discharge. Admitted to TCU with debility for strengthening and rehabilitation. Objective: Allergies acetaminophen (From Vicodin) Allergy (Intermediate, Verified 05/26/25 10:29) Nausea/Vom/Diarrhea hydrocodone (From Vicodin) Allergy (Intermediate, Verified 05/26/25 10:29) Nausea/Vom/Diarrhea gabapentin Allergy (Mild, Verified 05/26/25 10:29) memory behaviors Current Medications Generic Name Dose Route Start Last Admin Trade Name Freq PRN Reason Stop Dose Admin Acetaminophen 1,000 mg 05/29/25 22:00 05/30/25 06:00 Acetaminophen 500 Mg Tablet PO 1,000 mg Q8 KHADAR Administration Aspirin 81 mg 05/30/25 08:00 Aspirin E.C. 81 Mg Tablet PO BREAKFAST KHADAR Atorvastatin Calcium 20 mg 05/29/25 22:00 05/29/25 22:23 Atorvastatin Calcium 20 Mg Tablet PO 20 mg QHS KHADAR Administration Carbidopa/Levodopa 2 tablet 05/30/25 06:45 05/30/25 06:00 Carbidopa/Levodopa 25/100 Tablet PO 2 tablet TIDAC KHADAR Administration Citalopram Hydrobromide 40 mg 05/30/25 10:00 Citalopram 40 Mg Tablet PO DAILY KHADAR Clonidine 0.2 mg 05/29/25 22:00 05/29/25 22:22 Clonidine Hcl 0.2 Mg Tablet PO 0.2 mg BID KHADAR Administration Protocol Empagliflozin 25 mg 05/30/25 10:00 Empagliflozin 25 Mg Tablet PO DAILY KHADAR Enoxaparin Sodium 40 mg 05/30/25 06:00 Enoxaparin 40 Mg/0.4 Ml Syringe SC DAILY@0600 KHADAR Lisinopril 10 mg 05/30/25 10:00 Lisinopril 10 Mg Tablet PO DAILY KHADAR Protocol Magnesium Citrate 300 ml 05/29/25 20:48 Magnesium Citrate 300 Ml PO DAILY PRN Constipation Oxycodone HCl 5 mg 05/29/25 20:48 Oxycodone 5 Mg Tablet PO Q4H PRN PRN Pain Score 1-10 Pantoprazole Sodium 40 mg 05/29/25 22:00 05/29/25 22:23 Pantoprazole Sodium 40 Mg Tablet PO 40 mg BID KHADAR Administration Quetiapine Fumarate 50 mg 05/29/25 22:00 05/29/25 22:22 Quetiapine 25 Mg Tablet PO 50 mg QHS KHADAR Administration Protocol Senna/Docusate Sodium 2 tablet 05/29/25 22:00 05/29/25 22:23 Senna/Docusate Sodium 1 Tablet PO Not Given BID KHADAR Sodium Chloride 10 - 40 ml 05/29/25 19:55 0.9% Saline Lock 10 Ml Syringe IV UD PRN SALINE FLUSH Tamsulosin HCl 0.4 mg 05/29/25 22:00 05/29/25 22:23 Tamsulosin Hcl 0.4 Mg Capsule PO 0.4 mg QHS KHADAR Administration Tuberculin PPD 0.1 ml 05/30/25 10:00 Tuberculin,Purif.Prot.Deriv. 50 Tu/Ml Vial ID 05/30/25 10:01 X1 ONE Tuberculin PPD 0.1 ml 06/06/25 10:00 Tuberculin,Purif.Prot.Deriv. 50 Tu/Ml Vial ID 06/06/25 10:01 X1 ONE Problem List Type 2 diabetes mellitus with hyperglycemia (Acute) Parkinson's disease (Acute) GERD (gastroesophageal reflux disease) (Acute) Depression (Acute) Sundowning (Acute) Dementia, unspecified, with behavioral disturbance (Acute) Status post lumbar laminectomy (Acute) Debility (Acute) Generalized weakness (Acute) Essential hypertension (Acute) BPH (benign prostatic hyperplasia) (Acute) Vital Signs Temp Pulse Resp BP Pulse Ox O2 Del Method 98.9 F 77 19 H 161/90 H 96 Room Air 05/29/25 19:45 05/29/25 19:45 05/29/25 19:45 05/29/25 19:45 05/29/25 19:45 05/29/25 22:00 Oxygen Delivery Method Room Air Sodium Cancelled 05/30/25 05:45 Potassium Cancelled 05/30/25 05:45 Chloride Cancelled 05/30/25 05:45 Carbon Dioxide Cancelled 05/30/25 05:45 Anion Gap Cancelled 05/30/25 05:45 BUN Cancelled 05/30/25 05:45 Creatinine Cancelled 05/30/25 05:45 Est GFR (MDRD) Non-Af Cancelled 05/30/25 05:45 BUN/Creatinine Ratio Cancelled 05/30/25 05:45 Glucose Cancelled 05/30/25 05:45 Assessment/Plan: 1. Pain: acetaminophen 1000mg PO Q8 and oxycodone 5mg PO Q4H PRN pain 1-10. Last LFTs: 07/2024. Check LFTs if resident develops symptoms of hepatoxicity. Consider monitoring LFTs if patient using > 3 gm/day of acetaminophen for prolonged period. Do not exceed 4000 mg in 24 hours. Monitor for constipation (last BM: 05/29/25), respiratory depression (current RR range: 19), falls and sedation/delirium ([facility]). Resident hasn't received prn pain doses since admission. Monitor pain scores before/after prn administration for response, PRN pain medication usage, symptoms of pain/resident distress and ability to participate in therapy. 2. Bowel: senna/docusate 2T PO BID and magnesium citrate 300mL PO daily PRN constipation. Resident hasn't received prn doses since admission. Last document bowel movement: 05/29/25. Monitor for usage of prn medications, abdominal pain, frequency of bowel movements, diarrhea. Recommend holding bowel regimen if resident develops diarrhea. 3. DVT prophylaxis/CV prophylaxis: enoxaparin 40mg SC daily and aspirin 81mg PO daily. Please continue to monitor for S/S of bleeding/DVT, hemoglobin (last 13.2g/dL), platelets (last 280,000), renal function. Enoxaparin is renally dose medication. CrCl estimated = 85mL/min.?Dose appropriate for current renal function. Monitor serum creatine periodically. 4. Hypertension: clonidine 0.2mg PO BID and lisinopril 10mg PO daily. If clinically appropriate, please consider increasing lisinopril as blood pressures have been consistently elevated (range from last 24 hours 161/90 - 148/87). Thanks. Please continue to monitor BP, HR (last 77), SCr (last 0.9 mg/dL), potassium (last 4.1mmol/L), cough. 5. Parkinson Disease: Sinemet 25/100mg 2T PO TIDAC. Please continue to monitor for S/S of Parkinson disease, GI upset and dyskinesias. 6. Hyperlipidemia: atorvastatin 20mg PO QHS. Please consider ordering a lipid panel as the last panel is from 05/2023. Thanks. Please continue to monitor LFTs (last 07/2024) and muscle pain. 7. Diabetes mellitus II: empagliflozin 25mg PO daily. Please continue to monitor hemoglobin A1c (last 6.3% 05/26/25), glucose (last 99mg/dL), S/S of UTI and renal function. 8. GERD: pantoprazole 40mg PO BID. Monitor for diarrhea (consider possibility of C. diff if develops). Consider serum magnesium level and B12 level with long-term use if indicated. If clinically appropriate, consider dose reduction/weaning of medication due to director long term care risks of C. diff and fractures ([place]). 9. BPH: tamsulosin 0.4mg PO daily. Please continue to monitor for S/S of BPH and BP. Assessment/Plan for indications treated with psychotropic medications: 1. Major depression: citalopram 40mg PO daily. Please see physician note regarding GDR. Monitor for diarrhea, nausea, headache, anxiety or drowsiness, suicidal thoughts or behaviors ([place]), symptoms of bleeding, symptoms of serotonin syndrome (including agitation, confusion, hyperreflexia, rigidity/myoclonus, tremor, tachycardia, tachypnea), sodium levels (last Na =137mmol/L). Monitor for efficacy including resident symptoms, behaviors and indications of distress. Monitor for tolerability including mental status, cognition, excessive sleepiness, withdrawal or decreased participation in activities and decline in physical functioning. Maximize use of nonpharmacologic/behavioral interventions to facilitate dose reduction or discontinuation as appropriate. Please evaluate the appropriateness of GDR unless contraindicated. If appropriate, GDR should be attempted in 2 separate quarters within the first year of use or admission to TCU. If GDR attempted, monitor resident symptoms/behaviors. 2. Sundowning: quetiapine 50mg PO QHS. Please see physician note regarding GDR. New medication. Monitor for drowsiness, dizziness or confusion, mental status, seizures. Monitor for constipation, urinary retention, dry mouth and blurred vision. Monitor for abnormal movements/movement disorders (including tremor, akathisia, dyskinesia, acute dystonia). Monitor for neuroleptic malignant syndrome (fever, muscle rigidity, mental status changes and hemodynamic instability). Monitor for orthostatic hypotension, including postural dizziness, syncope or falls. Implement fall prevention strategies. Check orthostatic vital signs if suspicion of orthostasis. Monitor for weight gain and check fasting lipid profile and fasting glucose or HbA1c as indicated (recommended baseline and annually). FLP = 05/2023; HbA1c = 6.3% 05/26/25. Monitor for efficacy including resident symptoms, behaviors and indications of distress. Monitor for tolerability including mental status, cognition, excessive sleepiness, withdrawal or decreased participation in activities and decline in physical functioning. Maximize use of nonpharmacologic/behavioral interventions to facilitate dose reduction or discontinuation as appropriate. Please evaluate the appropriateness of GDR unless contraindicated. If appropriate, GDR should be attempted in 2 separate quarters within the first year of use or admission to TCU. If GDR attempted, monitor resident symptoms/behaviors. Medical chart and medication regimen reviewed. The following medication irregularities or issues were identified: 1. Lisinopril 10mg PO daily. If clinically appropriate, please consider increasing lisinopril as blood pressures have been consistently elevated (range from last 24 hours 161/90 - 148/87). Thanks. 2. Atorvastatin 20mg PO QHS. Please consider ordering a lipid panel as the last panel is from 05/2023. Thanks. Date Date of Note: 05/30/25 Documented by User: Dr. Constantin Cole MD 05/30/25 08:25 TCU RX Drug Regimen Review Provider Comments Provider responsibility Provider Comments to Recommendations by Pharmacy Agree
[2025-05-30] MEDS: Aspirin E.C. 81 MG Tablet PO (08:25)
[2025-05-30] MEDS: Senna/Docusate Sodium 1 Tablet 2 TABLET PO (08:28)
[2025-05-30 08:54] LABS: Anion Gap 9 (5-15); BUN 27 mg/dL (4-19); BUN/Creat Ratio 23.5 RATIO (10-20); Calcium,Total 9.6 mg/dL (7.6-11.0); Carbon Dioxide 28.2 mmol/L (21.0-32.0); Chloride 102 mmol/L (98-108); Glucose 103 mg/dL (70-99); Potassium 4.0 mmol/L (3.3-5.1)
[2025-05-30] MEDS: Tuberculin,Purif.prot.deriv. 50 TU/ML Vial 0.1 ML ID (09:53)
[2025-05-30 10:00] VITALS: BP 147/93; PULSE 70; RESP 20; TEMP 37; O2SAT 94
--- NOTE | 2025-05-30 12:47 | NURSING ---
Daughter called in requesting that patient be placed on regular diet rather than cardiac because patient will refuse to eat what is available on the cardiac diet and she has had to bring food in that patient will eat. This nurse educated why patient was on cardiac diet but that I would talk to report programmer. Spoke with report programmer Natividad and discussed this issue and she agreed to change patient to regular diet if he was eating food from home anyways. Diet changed and daughter and patient made aware.
[2025-05-31 06:35] LABS: Cholesterol 101 mg/dL (<=200); Low Density Lipoprotein Calc. 33 mg/dL; Triglycerides 181 mg/dL; Very Low Density Lipoprotein 36 mg/dL (5-40); cholesterol:hdl ratio screen 3.14
[2025-05-31 08:51] VITALS: BP 148/77; PULSE 57; RESP 17; TEMP 36.3; O2SAT 94
[2025-05-31] MEDS: Aspirin E.C. 81 MG Tablet PO (08:53)
[2025-05-31] MEDS: Senna/Docusate Sodium 1 Tablet 2 TABLET PO (08:55)
--- NOTE | 2025-05-31 13:47 | NURSING ---
Air Duct Mechanic Note; Activity Asset: Morales Jose is independent in his choice of daily activities and has stated he prefer to be in his room w/door shut. Staff has placed a sign on door to please keep closed. He has a Anh he uses, tv, and will read the paper. His family will visits and bring him items from home if he needs them. Staff will remind him of daily activities and respect his right to say no.
--- NOTE | 2025-05-31 15:05 | CHAPLAIN ---
Type of Pastoral Visit _x__ Initial Visit ___ Follow-up Visit ___ On-call Visit ___ General Patient Visit ___ Spiritual Assessment ___ Family Conference ___ Bereavement ___ Rapid Response ___ Code Blue ___ Other (describe below) Pastoral Care Referral From _x__ Patient ___ Family ___ Nurse ___ Physician ___ Business Leader ___ Mechanical Test Technician ___ Other (describe below) Sacrament/Intervention _x__ Active listening ___ Anointing ___ Uatsdin ___ Bereavement ___ Communion _x__ Bella exploration ___ _x__ Life review _x__ Prayer ___ Reconciliation ___ Sacrament of Sick _x__ Supportive presence ___ Wedding ___ Other (describe below) Pastoral Comments patient is lying down in bed and in a room closed from noise and activity; pt is welcoming and talkative; pt gives his health report which initially is about his back; later in the conversation pt reveals that he has Parkinson's and was diagnosed with early dementia; pt is to a woman 11 years older of whom he has some concerns on how they can help each other now; 's family is somewhat difficult in that they have not accepted his marriage even after quite a few years; pt has great support from his children and a daughter is very involved in his healthcare; same daughter has plans to take him into her home when that time comes; pt is tearful at these comments; time given to acknowledge feelings and the blessings that he has in support; pt had earlier talked about getting himself back to judaism and reviews his connection to the bella; now this conversation talks on more meaning as discussion is about how to reconnect with God and how to allow God's help in times of need; pt welcomes prayer, and future visits; pt expresses appreciation for the visit and talk
--- NOTE | 2025-05-31 15:50 | CASEMGMT ---
Social Work SW met with patient to complete initial assessment. Introduced self and role. Verified contacts. Patient confirmed code status as full code. Educated to [facility] insurance with NRD 06/07, EDC 06/11; 3-day notice for DC date; and d/t Medicaid secondary, day 21 or latest DC date is 06/18. Pt expressed understanding. Pt's goal is to return home living with , however, cannot assist pt. Pt was open with sharing dynamics with , her two children that live locally, and dynamics with grandchildren. SW and pt discussed driving. Pt accepting of resources, along with Parkinson's resources for support. Pt willing to have [employer] UN[employer]IED COMMUNICATIONS ENGINEER as approved by [employer], but was the barrier. Pt agreeable for this worker to broach the subject with as that would be beneficial for pt and to have in the home. SW provided ongoing supportive listening and acknowledgment of feelings and family situations. Pt appreciative of time and support. SW will continue to follow for DC planning. Sandi Mcconnell MOLTEN IRON POURER RE EXAMINER
[2025-05-31] MEDS: 0.9% Saline Lock 10 ML Syringe IV ×2 (16:52→20:42)
[2025-06-01] MEDS: Aspirin E.C. 81 MG Tablet PO (08:29)
[2025-06-01] MEDS: Senna/Docusate Sodium 1 Tablet 2 TABLET PO ×2 (08:34→20:33)
[2025-06-01 08:46] VITALS: BP 134/86; PULSE 61; RESP 18; TEMP 36.6; O2SAT 96
--- NOTE | 2025-06-01 12:33 | MDS.RN ---
Pain assessment for MDS complete.
[2025-06-01 13:45] VITALS: PULSE 67; RESP 18; O2SAT 97
[2025-06-01] MEDS: 0.9% Saline Lock 10 ML Syringe IV ×2 (13:59→20:36)
--- NOTE | 2025-06-01 16:44 | NURSING ---
WHILE DOING PT ASSESSMENT,FOUND BANDAID TO LOWER BACK AT INCISION SITE.WENT TO CHANGED BANDAID AND THERE WAS A MODERATE AMOUNT OF BLOODY DRAINAGE TO BACK AND BANDAID. SMALL OPEN AREA. CLEANED AND APPLIED STERI STRIPS AND DRY DRESSING. WILL PUT ORDER IN FOR WOUND CONSULT.
--- NOTE | 2025-06-01 20:52 | NURSING ---
Old IV dressing peeling off. Nurse removed old dressing, cleansed site with alcohol swab, placed new dressing on, IV site flushed w/ 10ml NS, swabcap placed. Pt tolerated well
[2025-06-02 08:48] VITALS: BP 135/76; PULSE 61; RESP 18; TEMP 36.4; O2SAT 95
[2025-06-02] MEDS: Aspirin E.C. 81 MG Tablet PO (08:49)
[2025-06-02] MEDS: Senna/Docusate Sodium 1 Tablet 2 TABLET PO ×2 (08:51→21:49)
--- NOTE | 2025-06-02 12:55 | CASEMGMT ---
Social Work SW completed BIMS () and PHQ-2 () for MDS assessment. Sandi Mcconnell WEB APPLICATIONS ADMINISTRATOR BALL MAKER
[2025-06-02 21:51] VITALS: BP 140/82; PULSE 60; O2SAT 95
[2025-06-03] MEDS: Aspirin E.C. 81 MG Tablet PO (09:46)
[2025-06-03] MEDS: Senna/Docusate Sodium 1 Tablet 2 TABLET PO ×2 (09:49→22:37)
[2025-06-03 09:54] VITALS: BP 112/74; PULSE 63; RESP 18; TEMP 36.3; O2SAT 96
[2025-06-03 15:05] VITALS: PULSE 63; RESP 18; O2SAT 96
[2025-06-04] MEDS: Aspirin E.C. 81 MG Tablet PO (08:12)
[2025-06-04 08:27] VITALS: BP 134/82; PULSE 58; RESP 18; TEMP 36; O2SAT 96
[2025-06-04 11:15] VITALS: PULSE 58; RESP 18; O2SAT 96
[2025-06-04 21:35] VITALS: BP 149/75; PULSE 52
[2025-06-05 10:19] VITALS: BP 127/77; PULSE 54; RESP 18; TEMP 36.3; O2SAT 95
[2025-06-05] MEDS: Aspirin E.C. 81 MG Tablet PO (10:21)
[2025-06-05 21:23] VITALS: BP 140/82; PULSE 52; RESP 18; O2SAT 96
[2025-06-05 21:30] VITALS: PULSE 52
[2025-06-06 07:56] LABS: Hematocrit 41.9 % (40-54); Hemoglobin 13.9 g/dL (13.0-16.5); Immature Granulocytes Count 0.060 X10^3/uL (0.0-0.0); Mean Corp Hgb Conc 33.2 g/dL (32-36); Mean Corpuscular Volume 92.5 fL (80-94); Mean Platelet Vol. 9.1 fl (6.2-12.0); NRBC Flagged by Analyzer 0 % (0-5); Platelet Count 325 K/mm3 (150-450); RBC Distribution Width CV 12.7 % (11.6-14.6); RBC Distribution Width SD 43.3 fl (35.1-43.9); Red Blood Count 4.53 M/mm3 (4.6-6.2); White Blood Count 7.9 K/mm3 (4.4-11.0)
--- NOTE | 2025-06-06 08:34 | NURSING ---
Laminator Preforms Note; MDS for 06/05/2025 Complete
[2025-06-06 08:41] LABS: Anion Gap 9 (5-15); BUN 22 mg/dL (4-19); BUN/Creat Ratio 15.5 RATIO (10-20); Calcium,Total 9.4 mg/dL (7.6-11.0); Carbon Dioxide 24.0 mmol/L (21.0-32.0); Chloride 107 mmol/L (98-108); Estimated Creatinine Clearance 55.82 ml/min (50-250); Glucose 113 mg/dL (70-99); Potassium 4.3 mmol/L (3.3-5.1)
[2025-06-06] MEDS: Aspirin E.C. 81 MG Tablet PO (08:50)
[2025-06-06] MEDS: Tuberculin,Purif.prot.deriv. 50 TU/ML Vial 0.1 ML ID (08:58)
[2025-06-06 09:01] VITALS: BP 133/82; PULSE 56; RESP 18; TEMP 36.6; O2SAT 97
--- NOTE | 2025-06-06 09:26 | NURSING ---
ASKED PT ABOUT HIS UP COMING APPOINTMENT IN [place] WITH THE NAVAL INSPECTOR. PT STATED I DONT WANT TO GO AND MY DAUGHTER IS SUPPOSE TO CANCEL THE APPOINTMENT. RN AWARE
--- NOTE | 2025-06-06 11:11 | NURSING ---
CALLED PT DAUGHTER MEGHANA AND SHE STATED SHE WAS GOING TO CALL AND CANCEL HER DADS APPOINTMENT IN [place] FOR HIS BACK. SHE STATED IF HE HAS ANY PROBLEMS TO LET HER KNOW. RN AWARE.
--- NOTE | 2025-06-06 11:35 | NURSING ---
Offered covid vaccine, VIS provided. Resident declined.
--- NOTE | 2025-06-06 13:19 | WOUNDNOTE ---
wound photo: mid lower back
[2025-06-06 15:11] VITALS: BMI 27.9
[2025-06-07 07:48] VITALS: BP 141/89; PULSE 58; RESP 18; TEMP 36.1; O2SAT 98
[2025-06-07] MEDS: Aspirin E.C. 81 MG Tablet PO (07:51)
--- NOTE | 2025-06-07 10:04 | CASEMGMT ---
Addendum entered by Sandi Mcconnell 06/07/25 16:00: SW left VM with [employer] CM to request JAVA SWING DEVELOPER and MOW for pt DC on 06/10. Original Note: Social Work IDT met with patient at bedside and dtr, Carmina, via conference call for care plan meeting. Discussed patient's progress in PT/OT/SN/RDN. Educated to [facility] insurance and during meeting, insurance issued LCD 06/09, DC 06/10. Discussed DC plans and needs. Pt requesting a hospital bed for wounds and mobility at home. SW to coordinate. SW inquired about having nonskilled JAVA SWING DEVELOPER through [employer]. Pt and dtr agreed pt needs additional support in the home and the will just need to be okay with it. SW to contact CM to coordinate, along with MOW. Pt agreeable to skilled HHC. Pt used [facility] prior. SW inquired if he would like to use [facility] again or offered list of additional options. Dtr requested list be texted to her. SW notified DC capacity planning manager and text link sent. SW inquired about transport home. Pt states he does not have transport home. SW to coordinate through insurance. Pt has [facility] and likely to cover transport. DC Asphalt Distributor Operator to coordinate. SW will finalize DC plans. - Dtr selected [facility] and [facility] preferences. SW phoned [facility] for PT/OT/SN/SW. SW sent referral to [facility] via [employer] for hospital bed to deliver at home 06/09. SW to notify [employer] CM of DC date and request for JAVA SWING DEVELOPER and MOW. Plan: DC home with 06/10, [facility] PT/OT/SN/SW, hospital bed, [employer] MOW/JAVA SWING DEVELOPER. Sandi Mcconnell RENEWALS SPECIALIST MUSEUM EXHIBIT DESIGNER
--- NOTE | 2025-06-07 10:32 | CASEMGMT ---
Discharge Planning A list of?HH providers including quality and resource use data and consistent with the patient's preferred geographic region, medical needs, and insurance network were provided via text message to pts daughter from the [employer] Guide link. Alma Tompkins, Discharge Planning Asst.
[2025-06-07 20:00] VITALS: PULSE 62; RESP 18; O2SAT 96
--- NOTE | 2025-06-07 20:48 | PCM.DC.SUM ---
Providers Date of Admission: 05/29/25 Primary Care Physician: Dr. Allyson Soler MD Consultations 06/01/25 16:50 Consult: Onc/Wound/architectural sales consultant Routine Comment: Reason for Consult:: OPEN AREA AND DRAINAGE ON LOWER BACK INCINSION FROM PAST SURGERY Reason For Visit: WEAKNESS,RECENT SPINE SURGERY Diagnosis Discharge Diagnosis (1) Debility: Status: Acute Code(s): R53.81 - Other malaise (2) Generalized weakness: Status: Acute Code(s): R53.1 - Weakness (3) Status post lumbar laminectomy: Status: Acute Code(s): Z98.890 - Other specified postprocedural states (4) Dementia, unspecified, with behavioral disturbance: Status: Acute Code(s): F03.918 - Unspecified dementia, unspecified severity, with other behavioral disturbance (5) Sundowning: Status: Acute Code(s): F05 - Delirium due to known physiological condition (6) Depression: Status: Acute Code(s): F32.A - Depression, unspecified (7) Essential hypertension: Status: Acute Code(s): I10 - Essential (primary) hypertension (8) GERD (gastroesophageal reflux disease): Status: Acute Code(s): K21.9 - Gastro-esophageal reflux disease without esophagitis (9) BPH (benign prostatic hyperplasia): Status: Acute Code(s): N40.0 - Benign prostatic hyperplasia without lower urinary tract symptoms Qualifiers: Lower urinary tract symptom presence: symptoms present Lower urinary tract symptom detail: post-void dribbling Qualified Code(s): N40.1 - Benign prostatic hyperplasia with lower urinary tract symptoms; N39.43 - Post-void dribbling (10) Parkinson's disease: Status: Acute Code(s): G20.A1 - Parkinson's disease without dyskinesia, without mention of fluctuations (11) Type 2 diabetes mellitus with hyperglycemia: Status: Acute Code(s): E11.65 - Type 2 diabetes mellitus with hyperglycemia Plan 65 year old male with below past medical history hospitalized for debility 2/2 lumbar laminectomy/fusion surger 05/24/2025, failed home discharge, admitted to TCU with debility, here for rehabilitation, strengthening, prior to discharge home with . Debility - PT/OT. Pain - Tylenol 1000mg q8, Oxycodone 5mg q4 prn pain. Bowel - Senna/colace 2 tablets bid, Magnesium citrate 300mL daily prn. Adult immunization - Administer pneumonia vaccine, covid vaccine, flu vaccine as appropriate. DVT prophylaxis - Lovenox 40mg sc daily. CV prophylaxis - Aspirin 81mg daily. Hyperlipidemia - Atorvastatin 20mg qhs. Parkinson Disease - Sinemet 25/100mg 2 tablets tidac. Hypertension - Clonidine 0.2mg bid, Lisinopril 10mg daily. Diabetes Mellitus II - Jardiance 25mg daily. GERD - Pantoprazole 40mg bid. BPH - Tamsulosin 0.4mg daily. The following psychotropic medication was present on admission: Citalopram 40mg daily. Psychotropic medication therapy is indicated for a diagnosis of: Major depression. Based on my clinical evaluation, continuation of the medication is necessary at this time. Gradual dose reduction plan (select one): ____ GDR will be attempted. Will monitor patient symptoms and behaviors in response to GDR. __x__ GRD contraindicated. Reason contraindicated: stable chronic usp use. The following psychotropic medication was present on admission: Seroquel 50mg qhs. Psychotropic medication therapy is indicated for a diagnosis of: Sundowning. Based on my clinical evaluation, continuation of the medication is necessary at this time. Gradual dose reduction plan (select one): ____ GDR will be attempted. Will monitor patient symptoms and behaviors in response to GDR. __x__ GRD contraindicated. 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 Medications at Discharge Home Medications citalopram 40 mg tablet 40 mg PO DAILY DEPRESSION #90 TABLETS 02/07/25 clonidine HCl 0.2 mg tablet 0.2 mg PO BID BP #180 tabs 02/07/25 pantoprazole 40 mg tablet,delayed release 40 mg PO BID GERD #180 tabs 02/08/25 tamsulosin 0.4 mg capsule 0.4 mg PO QHS PROSTATE #90 caps 02/08/25 carbidopa 25 mg-levodopa 100 mg tablet 2 tab PO TID PARKINSON 02/09/25 aspirin 81 mg tablet,delayed release 81 mg PO DAILY HEART HEALTH #90 tabs 03/27/25 dapagliflozin propanediol 10 mg tablet 10 mg PO DAILY CHOLESTEROL #90 tabs 03/27/25 atorvastatin 20 mg tablet 20 mg PO QHS Cholesterol #90 tabs 05/29/25 acetaminophen 500 mg tablet 1,000 mg (2 x 500 mg) PO Q8 #0 tabs 06/07/25 losartan 100 mg tablet 100 mg PO DAILY 30 days #30 tabs 06/07/25 quetiapine 25 mg tablet 50 mg (2 x 25 mg) PO QHS 30 days #60 tabs 06/07/25 Hospital Course Operations - (See below.) Procedures None Summary of Care Provided Minutes Spent on Discharge: 35 Hospital Course: 65 year old male with below past medical history hospitalized for debility 2/2 lumbar laminectomy/fusion surger 05/24/2025, failed home discharge, admitted to TCU with debility, here for rehabilitation, strengthening, prior to discharge home with . Discharge home with 06/10/2025, [facility] PT/OT/SN/SW, hospital bed, [facility] [place] [facility]. Hospital bed: Patient requires a hospital bed d/t needing frequent changes in position to alleviate pain, prevent ongoing pressure areas, assist in healing of current pressure areas, prevent aspiration or d/t respiratory condition. Physical Exam Const alert General Appearance: cooperative HEENT normocephalic Eyes PERRL and EOMs intact bilaterally Neck supple, no JVD and no carotid bruits Resp normal respiratory effort, normal air movement and clear to auscultation bilaterally Cardio regular rate and regular rhythm GI normal to inspection, nondistended, normoactive bowel sounds, non-tender and non-distended Extremity normal capillary refill General Extremity: Negative for edema Skin no rashes or lesions noted General Skin Exam: no breakdown Psych affect normal Appearance: appropriate Weight / BMI Weight Weight: 85.774 kg Body Mass Index (BMI) 27.9 ABG / Lab / Microbiology Data 06/06/25 07:43 06/06/25 07:43 D/C Instructions Discharge Activity: Return to Normal Activity, May Shower and Use Walker Weight Bearing Status: Weight bearing as tolerated Call your doctor if you observe: Fever of 101 or Higher, Inability to urinate, Inability to have a bowel movement, Shortness of breath, Dizziness, Fainting spells, Swelling in the ankles, Chest pain and Uncontrolled pain DC O2, CPAP, BIPAP Needs Home O2 Discharge instructions: No Additional Instructions: Discharge home with 06/10/2025, [facility] PT/OT/SN/SW, hospital bed, [facility]. Hospital bed: Patient requires a hospital bed d/t needing frequent changes in position to alleviate pain, prevent ongoing pressure areas, assist in healing of current pressure areas, prevent aspiration or d/t respiratory condition. Please Follow Up With: Maribeth Henderson When: As scheduled. Meaningful Use Info Meaningful Use Meaningful Use Diagnoses (Choose all that apply): None applicable Discharge Plan Admission Admit Date/Time: 05/29/25 18:37 Primary Reason for Your Visit: Debility. Attending Provider: Constantin Cole Chi Primary Care Provider: Allyson Soler Instructions Additional Instructions / Restrictions: Discharge home with 06/10/2025, [facility] PT/OT/SN/SW, hospital bed, [facility]. Hospital bed: Patient requires a hospital bed d/t needing frequent changes in position to alleviate pain, prevent ongoing pressure areas, assist in healing of current pressure areas, prevent aspiration or d/t respiratory condition. Discharge Orders/Prescriptions Prescriptions: New acetaminophen 500 mg Tablet 1,000 mg PO Q8 Qty: 0 0RF quetiapine 25 mg Tablet 50 mg PO QHS 30 Days Qty: 60 0RF losartan 100 mg Tablet 100 mg PO DAILY 30 Days Qty: 30 0RF Continued clonidine HCl 0.2 mg tablet 0.2 mg PO BID Qty: 180 1RF citalopram 40 mg tablet 40 mg PO DAILY Qty: 90 1RF pantoprazole 40 mg tablet,delayed release (DR/EC) 40 mg PO BID Qty: 180 1RF tamsulosin 0.4 mg capsule 0.4 mg PO QHS Qty: 90 1RF carbidopa-levodopa 25-100 mg tablet 2 tab PO TID aspirin 81 mg tablet,delayed release (DR/EC) 81 mg PO DAILY Qty: 90 0RF dapagliflozin propanediol 10 mg tablet 10 mg PO DAILY Qty: 90 0RF atorvastatin 20 mg tablet 20 mg PO QHS Qty: 90 0RF Discontinued oxycodone 5 mg tablet 5 mg PO 4X/DAY PRN PRN (Reason: pain) quetiapine 25 mg Tablet 50 mg PO QHS Qty: 0 0RF lisinopril 10 mg tablet 10 mg PO QDAY Qty: 90 1RF acetaminophen 500 mg tablet 1,000 mg PO Q8 Qty: 90 0RF Referrals / Follow Up: Allyson Soler MD [Primary Care Provider] - 06/14/25 2:00 pm (visit with ANU Reddy) Disposition Disposition (needs filled in before D/C Order can be placed): Home Health Service
[2025-06-07 21:41] VITALS: BP 137/80; PULSE 55
[2025-06-08 05:34] VITALS: PULSE 55; RESP 16; O2SAT 96
[2025-06-08 08:36] VITALS: BP 142/80; PULSE 56; RESP 17; TEMP 36.2
[2025-06-08] MEDS: Aspirin E.C. 81 MG Tablet PO (08:39)
--- NOTE | 2025-06-08 11:40 | MDS.RN ---
Information for the MDS was obtained from review of the clinical record, interview of resident, staff, and direct observation of resident?s care.
--- NOTE | 2025-06-08 14:10 | CHAPLAIN ---
Type of Pastoral Visit ___ Initial Visit _x__ Follow-up Visit ___ On-call Visit ___ General Patient Visit ___ Spiritual Assessment ___ Family Conference ___ Bereavement ___ Rapid Response ___ Code Blue ___ Other (describe below) Pastoral Care Referral From _x__ Patient ___ Family ___ Nurse ___ Physician ___ Jet Handler ___ Technical Product Manager ___ Other (describe below) Sacrament/Intervention _x__ Active listening ___ Anointing ___ Synagogue ___ Bereavement ___ Communion _x__ Bella exploration ___ _x__ Life review _x__ Prayer ___ Reconciliation ___ Sacrament of Sick ___ Supportive presence ___ Wedding ___ Other (describe below) Pastoral Comments patient is eager to have a visit again; pt speaks of great experience here, good progress, and plan for HH and return home in a couple of days; pt acknowledges good family support with hopes that can be on board with everything at home; pt is reminded about his goals for spiritual reconnection and he affirms his plan and determination for that; pt gives much life review and the goals he has for life; pt acknowledges his battles with Parkinson's and early dementia are keeping him focused what he needs to do and making priorities; pt welcomes presence and prayer
[2025-06-08 21:51] VITALS: BP 149/81; PULSE 55
[2025-06-09 10:02] VITALS: BP 131/74; PULSE 63; RESP 16; TEMP 36.4; O2SAT 94
[2025-06-09] MEDS: Aspirin E.C. 81 MG Tablet PO (10:05)
--- NOTE | 2025-06-09 12:18 | CASEMGMT ---
Social Work SW scheduled w/c transport through [facility] 1100 on 06/10 for DC. SW completed BIMS () and PHQ-2 () for MDS assessment. Pt notified of transport time. Pt appreciative. Sandi Mcconnell [employer] GR[employer]ER [employer] PERCHER
[2025-06-10 07:56] VITALS: BP 151/86; PULSE 57; RESP 18; TEMP 36.2; O2SAT 95
[2025-06-10] MEDS: Aspirin E.C. 81 MG Tablet PO (07:58)
--- NOTE | 2025-06-10 11:56 | NURSING ---
[facility] here for discharge home.
== END 2025-06-10 11:56 | disposition home health service (06) | DRG 560 ==
PROVIDERS: Admitting Provider Family Medicine Geriatric Medicine; PCP Internal Medicine; Referring Provider Family Medicine Geriatric Medicine; Visit Provider Family Medicine Geriatric Medicine
DX: Z47.89 Encounter for other orthopedic aftercare (principal); F05 Delirium due to known physiological condition; F02.818 Dementia in other diseases classified elsewhere, unspecified severity, with other behavioral disturbance; G20.A1 Parkinson's disease without dyskinesia, without mention of fluctuations; E11.65 Type 2 diabetes mellitus with hyperglycemia; I10 Essential (primary) hypertension; F32.9 Major depressive disorder, single episode, unspecified; E78.00 Pure hypercholesterolemia, unspecified; K21.9 Gastro-esophageal reflux disease without esophagitis; Z79.84 Long term (current) use of oral hypoglycemic drugs; N39.43 Post-void dribbling; N40.1 Benign prostatic hyperplasia with lower urinary tract symptoms; Z79.82 Long term (current) use of aspirin; Z79.899 Other long term (current) drug therapy; Z98.1 Arthrodesis status
CPT/HCPCS: 36415; 80048; 80061; 85025; 97110; 97116; 97162; 97166; 97530; 97535; 97802; A4216

== ENCOUNTER → 2025-07-04 | Outpatient (CLI) | payer MEDICARE, MEDICAID, SELFPAY ==
--- OUTSIDE RECORDS SUMMARY | 2025-05-24 13:14 | XMS RPT_ITS ---
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 Registered Nurse Type: Care Mgt Initial Assessment Filed: 05/25/2025 13:41 Note Text: CARE MANAGEMENT: ASSESSMENT AND DISCHARGE PLAN SERVICE DATE: May 25, 2025 SERVICE TIME: 1:41 pm PCP: Aga Benitez MD Primary Contact: Extended Emergency Contact Information Primary Emergency Contact: Becka Chao Mobile Relation: Daughter Preferred language: [place] CITIZ[place] Life Skills Specialist needed? No Secondary Emergency Contact: Dank Grier OSVALDO Mobile Relation: Relative Preferred language: [place] CITIZ[place] Life Skills Specialist needed? No Admission Status: Extended Recovery Insurance Provider: [employer] MEDICARE HMO Discharge Planning requested by: Per Department Practice Potential Transition Plans Home, Home Care, Home OT/PT Advance Directives Current Advance Directive: None Planning Coordinator Attempted to Assist with AD Completion: Yes Action: Education Provided Current Living Arrangements and Support Lives with: Spouse/significant other Type of Residence: Private Residence (House) Support: Spouse/significant other How do you manage to accomplish the following: Independent: Ambulation, Bathe/Shower, Dress, Meals/Meal Prep, Going to the bathroom, Medication Management, Transportation to appointments/community Current Services/Equipment Current Post-Acute Service(s): DME Current DME Type: Cane Discharge Planning Patient Goal(s): Increase strength, General wellness, Be able to go home [place] Explained: [place] Given: Yes Level of Care Discussed: Home Care Are you interested in bedside delivery of your medications? Yes Discharge Planning Participant(s): Patient, Children Needs Prior to Discharge: Needs Prior to Discharge: Ready for Discharge, Discharge Prescriptions Post-Acute Discharge Plan: PRE-OP/PRE-PROCEDURE DIAGNOSIS: L3-4, L4-5 lumbar canal stenosis with neurogenic claudication This RNCM met with the patient at the bedside to complete this assessment. CM confirmed the patient's demographics. The patient lives with his . The patient is independent in his/her ADLs and IADLs, and drives. The patient states her daughter will be providing transport at discharge. DME: cane. The patient denies any barriers with obtaining medication. The patient states he/she feel safe at home and denies safety, financial, and social concerns at this time.The patient denied any additional needs at this time. CM to remain available. DME: None identified by patient Community Services: None Identified by patient Anticipated Needs: Home with No Needs A member of the care management team will follow and remain available for the patient's needs. SIGNATURE: Carmina Sarabia RN PATIENT NAME: Nick Arora DATE: May 25, 2025 TIME: 1:39 PM CNDS Observed: 05/25/2025 1:15 PM Status: COMPLETED Source: [facility] HNO ID: [id number] Author: ISAMAR GLASS PA-C Service: Neurosurgery Author Type: Physician Instructor Of Spanish Type: Discharge Summary Filed: 05/26/2025 09:51 Note Text: Attestation signed by Valorie Ayala MD at 05/26/2025 11:15 AM I reviewed the discharge summary. I agree with above note DISCHARGE SUMMARY PATIENT NAME: Nick Arora ADMISSION DATE: 05/24/2025 DISCHARGE DATE: 05/25/2025 Attending Physician: Valorie Ayala* Primary Care Physician: Aga Benitez MD Code Status: Prior Highest Readmission Risk Score: 13 The 30 day readmissions risk score is derived from an internally validated risk model which evaluates patient level characteristics, utilization history, medication orders and lab results up until the day of discharge. Patients with a score of 39 or above are considered highest risk for readmission. Specific patient level drivers will be listed at the bottom of the summary. Brought to the OR as scheduled on 05/24/[address] Ayala for a L3, L4 decompressive laminectomy, decompression of L3-4, L4-5 lumbar canal stenosis with bilateral root foraminotomies. Post-operatively, brought to PACU and subsequently transferred to a regular nursing floor in stable condition. Pain was controlled on a combination of IV and oral pain medication. Evaluated by Physical and Occupational Therapy and recommended for home physical therapy with home health care. Prescription for pain medication was sent to requested Pharmacy. Follow up appointment scheduled on 06/08/25 with Irma Henderson PA-C. Reason for Hospitalization: Elective surgery Final Diagnosis: S/p spinal surgery Active Hospital Problems Diagnosis POA S/P spinal surgery Yes Obesity, Class I, BMI 30-34.9 Yes Parkinson's disease with dyskinesia (HCC) Yes Chronic combined systolic and diastolic heart failure (HCC) Yes Type 2 diabetes mellitus without complication, without long-term current use of insulin (HCC) Yes Mild depression Yes Mixed hyperlipidemia Yes Essential (primary) hypertension Yes Resolved Hospital Problems Diagnosis POA PONV (postoperative nausea and vomiting) Yes HPI: Patient seen and examined. No new concerns. No acute events overnight. Pain is controlled. Patient with family at bedside. States pre-op symptoms of lower back pain and B/L LE pain have improved. He also endorsed weakness with standing due to pain pre-op. He has yet to be out of bed at the time of assessment, but since then PT/OT have worked with him and recommended HHC. Denies any new numbness, tingling, weakness. Tolerating diet without GI concerns. Passing flatus. Voiding urine multiple times this am. Updated on plan for discharge today and verbalized agreement. Patient denies current fever, chills, chest pain, shortness of breath, abdominal pain, N/V. Discussed patient with Dr. Ayala today; patient cleared for discharge to home today. CM discussed discharge plan with patient and family, agreeable for HHC. F2F placed for CM for C. Family would like to have patient discharged today as they are from out of town. Exogenous Class 1 Obesity Operations During Hospitalization: L3, L4 decompressive laminectomy, decompression of L3-4, L4-5 lumbar canal stenosis with bilateral root foraminotomies Procedures During Hospitalization: No procedures performed Hospital Course: No notes on file Transitions of Care Critical Issues: SPECIALIST FOLLOW-UP: Neurosurgery LABS AND PROCEDURES PENDING AT DISCHARGE: No pending results. Consulting Teams During Hospitalization: Treatment Team: Attending Provider: Valorie Ayala MD Consulting: Charly Leon MD Patient Condition @ Discharge: Stable Discharge Disposition: Home with Home Health PHYSICAL EXAM ON DISCHARGE: Neuro: AANDOx3. CV: RRR. Pulm: Lungs clear GI/: Abdomen soft, non-tender, BS present Skin/Extremities: Incision dressing CDI MSK: B/L UE and LE strength 5/5. Sensation intact. Information Provided to Patient: ALLERGIES Allergen Reactions Gabapentin Mental Status Change, GI Upset, Vomiting Hydrocodone GI Upset Tramadol GI Upset Vicodin [Hydrocodon* GI Upset Discharge Medications: Medication List START taking these medications docusate sodium 100 mg capsule Commonly known as: COLACE Take 1 capsule by mouth two times a day for 7 days. oxyCODONE IR 5 mg immediate release tablet Commonly known as: ROXICODONE Take 1 tablet by mouth every 6 hours as needed for pain for up to 7 days. CHANGE how you take these medications acetaminophen 500 mg tablet Commonly known as: TYLENOL EXTRA STRENGTH Take 2 tablets by mouth every 8 hours as needed for pain. What changed: when to take this reasons to take this polyethylene glycol 3350 17 gram packet Take 1 packet by mouth once daily for 7 days. Dissolve dose in 4 - 8 ounces of liquid and take as directed. What changed: when to take this CONTINUE taking these medications aspirin 81 mg Cap atorvastatin 20 mg tablet Commonly known as: LIPITOR TAKE 1 TABLET BY MOUTH ONCE DAILY AT BEDTIME carbidopa-levodopa 25-100 mg per tablet Commonly known as: SINEMET 25-100 Take 2 tablets by mouth three times a day. CeleXA 40 mg tablet Generic drug: citalopram cloNIDine HCl 0.2 mg tablet Commonly known as: CATAPRES dapagliflozin propanediol 10 mg tablet Commonly known as: FARXIGA Take 1 tablet by mouth daily with breakfast. donepezil 10 mg tablet Commonly known as: ARICEPT After on trazodone for 2 weeks, start 1/2 pill once a day for 1 month then increase to a full pill once a day thereafter. iv contrast (will be provided with radiology test) CTA Head/Neck W No IV access, insert saline lock prior to the sedation, infusion, injection for imaging exam. Discontinue saline lock post exam. If Pt. has a central line or IVAD, may access for administration according to line specific nursing protocol. Once exam is complete flush line and de-access according to line specific nursing protocol in the CT contrast administration guidelines link. lisinopril 10 mg tablet Commonly known as: ZESTRIL Take 1 tablet by mouth once daily. pantoprazole DR 40 mg tablet Commonly known as: PROTONIX Take 1 tablet by mouth two times a day before meals at 6 am and 4 pm. QUEtiapine 25 mg tablet Commonly known as: SEROquel Take 1 tablet by mouth daily at bedtime. spironolactone 25 mg tablet Commonly known as: ALDACTONE Take 1 tablet by mouth once daily. traZODone 150 mg tablet Commonly known as: DESYREL Take 1 tablet by mouth daily at bedtime. trospium 20 mg tablet Commonly known as: SANCTURA Take 1 tablet by mouth two times a day. STOP taking these medications senna-docusate 8.6-50 mg per tablet Commonly known as: SENNA-S ASK your doctor about these medications tamsulosin 0.4 mg Commonly known as: FLOMAX Take 1 capsule by mouth once daily. Where to Get Your Medications These medications were sent to [facility] [address] [address] Hours: Thursday-Thursday, 9am-5pm acetaminophen 500 mg tablet docusate sodium 100 mg capsule oxyCODONE IR 5 mg immediate release tablet polyethylene glycol 3350 17 gram packet Plan of Care: Plan of care discussed with Provider, RN, Patient Future Appointments: Follow Up with PCP: Aga Benitez MD Neurosurgery The patient's risk for 30-day readmission is determined using the following contributing factors: Predictive Model Details 13% (Low) Factor Value Calculated 05/25/2025 05:21 -18% Admission Provider Speciality NEUROSURGERY [facility] READMISSION RISK Model -11% ED visits (365d) 0 8% Malnutrition 1 8% Admissions (365d) 2 8% Length of Stay (d) 1 -7% Hospital Unit [facility]OTT[facility] 5D -7% ED Encounter 0 -5% Observations (365d) 0 4% Santosh Scale 16 -4% RDW (Max) N/A Patient was informed about discharge today. All patient needs were discussed and patient verbalized understand of the instructions after discharge. Medication reconciliation was done with the agreement of the attending physician. Patient discharge instructions were completed and to be given to the patient by the nurse. I spent a total of 35 minutes on the date of the service which included preparing to see the patient, [id number] patient care, completing clinical documentation, obtaining and/or reviewing separately obtained history, performing a medically appropriate examination, counseling and educating the patient/family/caregiver, ordering medications, tests, or procedures, communicating with other HCPs (not separately reported), independently interpreting results (not separately reported), communicating results to the patient/family/caregiver, and care coordination (not separately reported). SIGNATURE: Isamar Glass PA-C DATE: May 25, 2025 TIME: 1:15 PM THERAPY NT Observed: 05/25/2025 12:06 PM Status: COMPLETED Source: [facility] HNO ID: [id number] Author: PAOLO DANG PT Service: Physical Therapy Author Type: Physical Therapist Type: Therapy (PT/OT/Speech/Resp) Filed: 05/25/2025 12:08 Note Text: Physical Therapy Treatment Summary SERVICE DATE: 05/25/2025 SERVICE TIME: 1057 to 1130 ROOM: [place] [address] PT 6 Clicks Score: 20 DISCHARGE RECOMMENDATIONS Home PT Recommended Discharge Disposition Comments: with family assist Anticipated Discharge Needs: Supervision at Home Supervision at Home due to: (PEr pt recently diagnosed with dementia.) Recommended Discharge Equipment: No equipment needs anticipated ASSESSMENT Response to Therapy Interventions: Good Participation in Activities Patient demonstrates impaired functional mobility. Currently CGA level for functional mobility. This session pt was up for the 1st time after surgery. Per pt at times sleeps in the recliner. Recommend home with home PT on d/c. Will f/u as approp. PRECAUTIONS Spine, Fall Risk CURRENT HOSPITAL COURSE L3, L4 decompressive laminectomy, decompression of L3-4, L4-5 lumbar canal stenosis with bilateral root foraminotomies Operative microscope used for decompression and foraminotomies Relevant Past Medical History: HTN, HFrEF, T2DM, Parkinson's disease, Possible stroke per daughter, L TKA 06/22/24; HOME LIVING Patient Lives With: Spouse Assistance Available: PRN Entry To Home: No Stairs Number Of Stairs To Bed/Bath: 0 Tub/Shower Type: walk in Laundry: spouse manages laundry Equipment Owned: Commode- Bedside, Shower Chair, Cane, Walker- Wheeled PRIOR FUNCTIONAL LEVEL Required Assistance Assistance Required With: Medication Management, Shopping, Self Care Ambulates with cane. GA with mobility. Pt sleeps in recliner sometimes. Spouse does most meals, laundry and cleaning; +driving Per chart, pt and spouse have hoarding tendencies so there is limited space in home. Spouse is 80+ y/o and unable to physically assist pt. One fall at home 3 months ago, no injuries. Diagnosed with Parkinson's February 2024 Independent with medication with diffculty SUBJECTIVE Agreeable to PT session THERAPY DIAGNOSIS Reduced mobility-other TREATMENT INTERVENTIONS Evaluation, Gait Training (37355) Timed Code Treatment (minutes): 18 Skilled Treatment Time (minutes): 33 TRAINING AND EDUCATION PROVIDED Advanced Balance Activities, Assistive Device Use, Anatomy and Impact on Deficits, Bed Mobility, Benefits of In-Hospital Mobility, Discharge Planning, Equipment, Energy Conservation, Falls Prevention, Gait Pattern, Reduction of Deviations, Exercise Program, Home Safety, Precautions/Restrictions, Positioning, Patient Exercise/Therapy Program Support Needs, Role of Physical Therapy, Standing Balance, Transfers THERAPEUTIC SKILLS USED Activity Dosing, Assessment of Tolerance Including Vitals Response to Activity, Cues for Sequencing/Proper Technique for Activity, Cuing Tactile, Cuing Verbal, Cuing Visual FUNCTIONAL STATUS Bed Mobility Rolling: Additional Information, Stand By Assistance cues on log roling technique Supine To Sit: Minimal Assistance, Additional Information able to get himself to upright but needed assist to get all the way to midline. Sit to Supine: (pt up in the chair) Scooting: Contact Guard Assistance, Additional Information increased time to compelte the task Transfers Sit To Stand: Minimal Assistance, Additional Information From low bed. cues on sequencing and bring JUSTYN forward. Stand To Sit: Contact Guard Assistance Bed to Chair Contact Guard Assistance Bed To Chair Transfer Type: Stepping Bed To Chair Transfer Equipment: Wheeled Walker, Gait Belt Gait Stand By Assistance, Contact Guard Assistance, Additional Information Repeated cues on scannig the surrounding. Gait Device: Wheeled Walker General Deviations/Observations: Margareth decreased, Flexed trunk posture Gait Distance (feet): 300feet Stairs GOALS Patient will demonstrate progress with functional mobility to allow safe discharge to home with available support and/or physical assistance. Rehab Potential: Good Good Rehab Potential Due To: Good overall health status, Current objective clinical presentation, Good support system/ coping skills, Good motivation Progress Toward Goals: Progressing as expected ACUTE CARE TREATMENT PLAN PT Frequency: Once Daily Treatment Interventions: Education, Energy Conservation Training, Joint Mobility, Strengthening, Functional Mobility Training, Balance Training, Neuromuscular Re-education Plan for Next Visit: Bed Mobility, Sit to Stand Transfers, Standing Balance, Standing Tolerance, Walker Training, Fall Prevention, Chair Transfer Training, Family Instruction, Gait Training SIGNATURE: Paolo Dang PT PATIENT NAME: Nick Arora DATE: May 25, 2025 TIME: 12:06 PM CONSULT Observed: 05/25/2025 10:13 AM Status: COMPLETED Source: [facility] HNO ID: [id number] Author: CHARLY LEON MD Service: General Internal Medicine Author Type: Physician Type: Consults Filed: 05/25/2025 13:04 Note Text: CONSULT NOTE - INTERNAL MEDICINE PATIENT NAME: Nick Arora MRN: @MRN SERVICE DATE: 05/25/2025 SERVICE TIME: 10:13 AM ADMITTING PHYSICIAN: Valorie Ayala MD CC: Post operative medical management; pt is s/p L3, L4 decompressive laminectomy, decompression of L3-4, L4-5 lumbar canal stenosis with bilateral root foraminotomies Consultation requested by Dr. Valorie Ayala for an opinion regarding post operative medical management. My final recommendations will be communicated back to the requesting physician by way of shared Medical record or letter to requesting physician via US mail. HPI: His pain is controlled well; he feels his current medications are helping him well. Having some pain when he is trying to move. Denies any postop nausea or vomiting. Denies any recent fever or chills, skin infections or any upper respiratory infections. Has been able to void. Also is passing flatus. He complains of having some hiccups after his breakfast today He does not smoke. Denies any recent alcohol use PAST MEDICAL HISTORY Diagnosis Date Anxiety and depression BPH (benign prostatic hyperplasia) Congestive heart failure (HCC) Diabetes (HCC) Dyslipidemia Hypertension Kidney stone Spinal stenosis TIA (transient ischemic attack) Tremor PAST SURGICAL HISTORY Procedure Laterality Date TOTAL KNEE REPLACEMENT Left 06/2024 Current Facility-Administered Medications Medication Dose Route Frequency cloNIDine HCl 0.2 mg tab(s) (CATAPRES) 0.2 mg ORAL BID citalopram hydrobromide 40 mg tablet (CeleXA) 40 mg ORAL DAILY aspirin 81 mg chewable tab(s) 81 mg ORAL DAILY spironolactone 25 mg tab(s) (ALDACTONE) 25 mg ORAL DAILY lisinopril 10 mg tab(s) (ZESTRIL) 10 mg ORAL DAILY polyethylene glycol 3350 17 g packet 17 g ORAL BID tamsulosin 0.4 mg cap(s) (FLOMAX) 0.4 mg ORAL DAILY pantoprazole DR 40 mg tab(s) (PROTONIX) 40 mg ORAL BID AC (0600/1600) senna-docusate 8.6-50 mg 1 tablet (SENNA-S) 1 tablet ORAL BID dapagliflozin propanediol 10 mg tab(s) (FARXIGA) 10 mg ORAL DAILY WITH BREAKFAST atorvastatin 20 mg tab(s) (LIPITOR) 20 mg ORAL AT BEDTIME donepezil 10 mg tab(s) (ARICEPT) 10 mg ORAL DAILY traZODone 150 mg tab(s) (DESYREL) 150 mg ORAL AT BEDTIME trospium 20 mg tab(s) (SANCTURA) 20 mg ORAL BID AC QUEtiapine 25 mg tab(s) (SEROquel) 25 mg ORAL AT BEDTIME lactated ringers iv infusion 75 mL/hr INTRAVENOUS CONTINUOUS oxyCODONE-acetaminophen 5-325 mg 1-2 tablet (PERCOCET) 1-2 tablet ORAL q 6 H PRN HYDROmorphone 0.2 mg injection (DILAUDID) 0.2 mg INTRAVENOUS q 4 H PRN ondansetron 4 mg tab(s) (ZOFRAN) 4 mg ORAL q 6 H PRN Or ondansetron (PF) 4 mg injection (ZOFRAN) 4 mg INTRAVENOUS q 6 H PRN acetaminophen 325-650 mg tab(s) (TYLENOL) 325-650 mg ORAL q 4 H PRN docusate sodium 100 mg cap(s) (COLACE) 100 mg ORAL BID carbidopa-levodopa 25-100 mg 2 tablet (SINEMET 25-100) 2 tablet ORAL 3 times per day SOCIAL HISTORY[1] ALLERGIES Allergen Reactions Gabapentin Mental Status Change, GI Upset, Vomiting Hydrocodone GI Upset Tramadol GI Upset Vicodin [Hydrocodon* GI Upset Family History Problem Relation Age of Onset Cancer Mother Diabetes Mother other (HTN) Mother Stroke Mother Sudden Cardiac Father advanced age at 90 yo other (HTN) Father Diabetes Sister other (DM) Sister other (HTN) Sister other (diabetic retinopathy) Sister Cancer Brother colon cancer , stomach cancer other (dm) Brother Stroke Brother Anesthesia Problems No Family History ROS: Patient denies any recent ENT or eye complaints, CP, palpitation, cough, wheeze, dizziness, dyspnea, abdominal pain, nausea, vomiting, urinary or bowel changes or any skin rash Rest of the review of system is negative except as noted. OBJECTIVE PHYSICAL EXAM: Patient Vitals for the past 24 hrs: BP Temp Temp src Pulse Resp SpO2 Height Weight 05/25/25 0743 135/64 36.7 ?C (98.1 ?F) Oral 66 16 94 % -- -- 05/25/25 0557 155/65 36.9 ?C (98.4 ?F) Oral 61 16 96 % -- -- 05/25/25 0016 134/63 36.9 ?C (98.4 ?F) Oral 65 18 94 % -- -- 05/24/25 1903 -- -- -- -- -- -- 174 cm (5' 8.5) 91.2 kg (201 lb) 05/24/25 1858 169/71 -- Temporal Art 62 -- 96 % -- -- 05/24/25 1830 149/77 -- Temporal 63 16 94 % -- -- 05/24/25 1815 169/78 -- -- 62 16 100 % -- -- 05/24/25 1800 171/85 -- -- 63 16 94 % -- -- 05/24/25 1756 181/89 36 ?C (96.8 ?F) Temporal 60 16 98 % -- -- 05/24/25 1418 131/75 36.6 ?C (97.9 ?F) Temporal Art (!) 57 14 92 % -- -- Body mass index is 30.12 kg/m?. GENERAL: no distress. AANDOX3 SKIN: normal turgor HEENT: conjunctiva is pink, no icterus; m/m moist, no sinus tenderness NECK: no LN LUNGS: Lungs clear to auscultation, Fair air entry. CARDIAC: normal S1 and S2; no rub or gallops ABDOMEN: Abdomen soft, non-tender. BS normal. EXTREMETIES: Bilateral normal ankle DF Problem List ACTIVE PROBLEM LIST Mixed Hyperlipidemia Calculus of Kidney Essential (Primary) Hypertension Mild Depression Type 2 Diabetes Mellitus Without Complication, Without Long-Term Current Use of Insulin (Hcc) Chronic Combined Systolic and Diastolic Heart Failure (Hcc) Chronic Bilateral Low Back Pain With Bilateral Sciatica Parkinson's Disease With Dyskinesia (Hcc) Aftercare Status Post Total Left Knee Replacement Ponv (Postoperative Nausea and Vomiting) Lbbb (Left Bundle Branch Block) At Risk for Retention of Urine Major Neurocognitive Disorder (Hcc) S/P Spinal Surgery Obesity, Class I, Bmi 30-34.9 DATA: Diagnostic tests reviewed for today's visit: Most recent labs: WBC (k/uL) Date Value 05/25/2025 12.83 (H) RBC (m/uL) Date Value 05/25/2025 4.71 Hemoglobin (g/dL) Date Value 05/25/2025 14.5 Hematocrit (%) Date Value 05/25/2025 43.0 MCV (fL) Date Value 05/25/2025 91.3 MCH (pg) Date Value 05/25/2025 30.8 MCHC (g/dL) Date Value 05/25/2025 33.7 RDW-CV (%) Date Value 05/25/2025 12.4 Platelet Count (k/uL) Date Value 05/25/2025 227 MPV (fL) Date Value 05/25/2025 9.7 Glucose (mg/dL) Date Value 05/25/2025 142 (H) BUN (mg/dL) Date Value 05/25/2025 13 Creatinine (mg/dL) Date Value 05/25/2025 0.99 Sodium (mmol/L) Date Value 05/25/2025 137 Potassium (mmol/L) Date Value 05/25/2025 4.5 Chloride (mmol/L) Date Value 05/25/2025 101 CO2 (mmol/L) Date Value 05/25/2025 25 Protein, Total (g/dL) Date Value 05/02/2025 6.7 Albumin (g/dL) Date Value 05/02/2025 4.3 Calcium, Total (mg/dL) Date Value 05/25/2025 10.0 Alkaline Phosphatase (U/L) Date Value 05/02/2025 103 Bilirubin, Total (mg/dL) Date Value 05/02/2025 0.3 AST (U/L) Date Value 05/02/2025 15 ALT (U/L) Date Value 05/02/2025 <5 (L) Assessment/Plan: Principal Problem: S/P spinal surgery (POA: Yes) ; patient had L3, L4 decompressive laminectomy, decompression of L3-4, L4-5 lumbar canal stenosis with bilateral root foraminotomies on 05/24/2025 Assessment AND Plan: Pain regimen as ordered. Patient to gradually increase activities with therapy. Active Problems: Mixed hyperlipidemia (POA: Yes) Assessment AND Plan: Patient is on Lipitor, denies any associated adverse effects. Essential (primary) hypertension (POA: Yes) Assessment AND Plan: He will continue with lisinopril and Aldactone with parameters as ordered Mild depression (POA: Yes) Assessment AND Plan: Stable without any new concerns. Type 2 diabetes mellitus without complication, without long-term current use of insulin (HCC) (POA: Yes) Assessment AND Plan: Last HbA1c indicated very good control. Patient is on treatment with Farxiga Chronic combined systolic and diastolic heart failure (HCC) (POA: Yes) Assessment AND Plan: Clinically remains compensated. No new symptoms of concern. Parkinson's disease with dyskinesia (HCC) (POA: Yes) Assessment AND Plan: Feels stable with his current treatment with Sinemet. Home regimen resumed. PONV (postoperative nausea and vomiting) (POA: Yes) Assessment AND Plan: Denies any significant symptoms with current surgery. Obesity, Class I, BMI 30-34.9 (POA: Yes) Assessment AND Plan: Body mass index is 30.12 kg/m?. Resolved Problems: * No resolved hospital problems. * SIGNATURE: Charly Leon MD DATE: May 25, 2025 TIME: 10:13 AM This note was partially created using voice recognition software and is inherently subject to errors including those of syntax and sound-alike substitutions which may escape proofreading. In such instances, original meaning may be extrapolated by contextual derivation [1] Social History Tobacco Use Smoking status: Never Smokeless tobacco: Never Vaping Use Vaping status: Never Used Substance Use Topics Alcohol use: Not Currently Comment: none now Drug use: Never CBC PNL BLD AUTO Collected: 05/25/2025 6:31 AM Statu s: F Source: [facility] Order Comment: Specimen Type : BLOOD SPECIMEN Ordering Facility: [facility] Address: [address] [place] [address] TYPE CODE TESTS RESULT OUT OF RANGE REFERENCE UNITS LAB 6690-2(LOINC) WBC # Bld Auto 12.83 High 3.70-11.00 k/uL LAB 789-8(LOINC) RBC # Bld Auto 4.71 4.20-6.00 m/uL LAB 718-7(LOINC) Hgb Bld-mCnc 14.5 13.0-17.0 g/dL LAB 4544-3(LOINC) Hct VFr Bld Auto 43.0 39.0-51.0 % LAB 787-2(LOINC) MCV RBC Auto 91.3 80.0-100.0 fL LAB 785-6(LOINC) MCH RBC Qn Auto 30.8 26.0-34.0 pg LAB 786-4(LOINC) MCHC RBC Auto-mCnc 33.7 30.5-36.0 g/dL LAB 40235-0(LOINC) RDW RBC-Rto 12.4 11.5-15.0 % LAB 777-3(LOINC) Platelet # Bld Auto 227 150-400 k/uL LAB 95271-8([facility]) PMV Bld Auto 9.7 9.0-12.7 fL LAB 771-6([facility]) nRBC # Bld Auto <0.01 <0.01 k/uL Performed By: #### 90245-7 # ### [facility] CLIA [id number] [facility] [place] [address] [place] BAS METAB 2000 PNL SERPL Collected: 6:31 AM Status: F Source: [facility] Order Comment: Specimen Type : BLOOD SPECIMEN Ordering Facility: [facility] Address: [address] [place] [address] TYPE CODE TESTS RESULT OUT OF RANGE REFERENCE UNITS LAB 2345-7([facility]) Glucose SerPl-mCnc 142 High 74-99 mg/dL Result Comment: The [place] Diabetes Association (ADA) provides guidance for cutoff values for fasting glucose and random glucose. The ADA defines fasting as no caloric intake for at least 8 hours. Fasting plasma glucose results between 100 to 125 mg/dL indicate increased risk for diabetes (prediabetes). Fasting plasma glucose results greater than or equal to 126 mg/dL meet the criteria for diagnosis of diabetes. In the absence of unequivocal hyperglycemia, results should be confirmed by repeat testing. In a patient with classic symptoms of hyperglycemia or hyperglycemic crisis, random plasma glucose results greater than or equal to 200 mg/dL meet the criteria for diagnosis of diabetes. Reference: Standards of Medical Care in Diabetes 2016, [employer] Diabetes Association. Diabetes Care. 2016.39(Suppl 1). LAB 3094-0(LOINC) BUN SerPl-mCnc 13 9-24 mg/dL LAB 2160-0(LOINC) Creat SerPl-mCnc 0.99 0.73-1.22 mg/dL LAB 2951-2(LOINC) Sodium SerPl-sCnc 137 136-144 mmol/L LAB 2823-3(LOINC) Potassium SerPl-sCnc 4.5 3.7-5.1 mmol/L LAB 2075-0(LOINC) Chloride SerPl-sCnc 101 98-107 mmol/L LAB 2028-9(LOINC) CO2 SerPl-sCnc 25 22-30 mmol/L LAB 61212-1(LOINC) Anion Gap SerPl-sCnc 11 8-15 mmol/L LAB 04178-5(LOINC) Calcium SerPl-mCnc 10.0 8.5-10.2 mg/dL LAB 78741-1(LOINC) eGFRcr SerPlBld CKD-EPI 2020 83 >=60 mL/min/1. 73m??? Result Comment: Estimated Gl omerular Filtration Rate (eGFR) is calculated using the 2020 CKD-EPI creatinine equation. This equation utilizes serum creatinine, sex, and age as parameters. The creatinine assay has traceable calibration to isotope dilution-mass spectrometry. Refer to KDIGO guidelines for clinical interpretation. In patients with unstable renal function, e.g. those with acute kidney injury, the eGFR may not accurately reflect actual GFR. Performed By: #### 95112-8 # ### [facility] CLIA [id number] [address] [place] [address] CNPN Observed: 05/25/2025 12:00 AM Status: COMPLETED Source: [facility] Telephone (HCSIND) NICK ARORA ([id number]) 1960 M Date Time Provider Department 05/25/25 BINH ESQUIVEL HCSIND During your visit today, we recorded the following information about you: Binh Esquivel, [place] 05/25/2025 1:49 PM Signed Date/Time: 05/25/2025 1:46 PM Spoke with nicole Grewal @ phone #: [phone] - Preferred # for contact: [phone] Have you received help from a home care company in the last 60 days? No Can you commit to a visit in this time frame? Yes - If no, please advise that we would not be able to move forward with services and they would need to contact their provider when they are ready to start services. Are you agreeable to [facility] services? Yes What address will we be seeing you at? [address], [address], [place] [address] Do you have any upcoming appointments or things we need to schedule around? Unsure Do you have a teachable CG or can you manage your care independently? CG Who? [facility] Allergies As of Date: 05/25/2025 Noted Allergy Reaction GABAPENTIN 05/02/2025 1 - Mental Status Change 8 - GI Upset 11 - Vomiting HYDROCODONE 04/23/2023 8 - GI Upset TRAMADOL 04/23/2023 8 - GI Upset VICODIN (HYDROCODONE-ACETAMINOPHE*12/08/2023 8 - GI Upset Date Reviewed: 05/24/2025 Reviewed by: Joseph Long RN - Fully Assessed Reason for Visit: Home Care [4073] Cmt: Confirmation Calls Prescriptions as of 05/25/2025 - acetaminophen (TYLENOL EXTRA STRENGTH) 500 mg tablet Take 2 tablets by mouth every 8 hours as needed for pain. - docusate sodium (COLACE) 100 mg capsule Take 1 capsule by mouth two times a day for 7 days. - oxyCODONE IR (ROXICODONE) 5 mg immediate release tablet Take 1 tablet by mouth every 6 hours as needed for pain for up to 7 days. - polyethylene glycol 3350 17 gram packet Take 1 packet by mouth once daily for 7 days. Dissolve dose in 4 - 8 ounces of liquid and take as directed. - trospium (SANCTURA) 20 mg tablet Take 1 tablet by mouth two times a day. - QUEtiapine (SEROQUEL) 25 mg tablet Take 1 tablet by mouth daily at bedtime. - traZODone (DESYREL) 150 mg tablet Take 1 tablet by mouth daily at bedtime. - donepezil (ARICEPT) 10 mg tablet After on trazodone for 2 weeks, start 1/2 pill once a day for 1 month then increase to a full pill once a day thereafter. - atorvastatin (LIPITOR) 20 mg tablet TAKE 1 TABLET BY MOUTH ONCE DAILY AT BEDTIME - dapagliflozin propanediol (FARXIGA) 10 mg tablet Take 1 tablet by mouth daily with breakfast. - carbidopa-levodopa (SINEMET 25-100) 25-100 mg per tablet Take 2 tablets by mouth three times a day. - tamsulosin (FLOMAX) 0.4 mg Take 1 capsule by mouth once daily. - pantoprazole DR (PROTONIX) 40 mg tablet Take 1 tablet by mouth two times a day before meals at 6 am and 4 pm. - lisinopril (ZESTRIL) 10 mg tablet Take 1 tablet by mouth once daily. - spironolactone (ALDACTONE) 25 mg tablet Take 1 tablet by mouth once daily. - aspirin 81 mg cap Take 81 mg by mouth once daily. - iv contrast (will be provided with radiology test) CTA Head/Neck W No IV access, insert saline lock prior to the sedation, infusion, injection for imaging exam. Discontinue saline lock post exam. If Pt. has a central line or IVAD, may access for administration according to line specific nursing protocol. Once exam is complete flush line and de-access according to line specific nursing protocol in the CT contrast administration guidelines link. - cloNIDine HCl (CATAPRES) 0.2 mg tablet Take 0.2 mg by mouth two times a day. - citalopram (CELEXA) 40 mg tablet Take 40 mg by mouth once daily. Facility-Administered Medications as of 05/25/2025 - aluminum-magnesium hydroxide-simethicone 200-200-20 mg/5 mL 30 mL - cloNIDine HCl 0.2 mg tab(s) (CATAPRES) - citalopram hydrobromide 40 mg tablet (CeleXA) - aspirin 81 mg chewable tab(s) - spironolactone 25 mg tab(s) (ALDACTONE) - lisinopril 10 mg tab(s) (ZESTRIL) - polyethylene glycol 3350 17 g packet - tamsulosin 0.4 mg cap(s) (FLOMAX) - pantoprazole DR 40 mg tab(s) (PROTONIX) - senna-docusate 8.6-50 mg 1 tablet (SENNA-S) - dapagliflozin propanediol 10 mg tab(s) (FARXIGA) - atorvastatin 20 mg tab(s) (LIPITOR) - donepezil 10 mg tab(s) (ARICEPT) - traZODone 150 mg tab(s) (DESYREL) - trospium 20 mg tab(s) (SANCTURA) - QUEtiapine 25 mg tab(s) (SEROquel) - lactated ringers iv infusion - oxyCODONE-acetaminophen 5-325 mg 1-2 tablet (PERCOCET) - HYDROmorphone 0.2 mg injection (DILAUDID) - ondansetron 4 mg tab(s) (ZOFRAN) - ondansetron (PF) 4 mg injection (ZOFRAN) - acetaminophen 325-650 mg tab(s) (TYLENOL) - docusate sodium 100 mg cap(s) (COLACE) - carbidopa-levodopa 25-100 mg 2 tablet (SINEMET 25-100) Problem List As Of Date 05/25/2025 Noted Resolved Mixed hyperlipidemia [E78.2] 02/21/2022 Diagnosed: 12/08/2023 Calculus of kidney [N20.0] 12/08/2023 Diagnosed: 12/08/2023 Essential (primary) hypertension [I10] 02/21/2022 Diagnosed: 12/08/2023 Mild depression [F32.A] 12/08/2023 Diagnosed: 12/08/2023 Type 2 diabetes mellitus without complication, *03/09/2024 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/18/2024 Chronic bilateral low back pain with bilateral *04/18/2024 Parkinson's disease with dyskinesia (HCC) [G20.*04/18/2024 Aftercare [Z51.89] 06/29/2024 Status post total left knee replacement [Z96.65*06/29/2024 YUMIKO (acute kidney injury) (HCC) [N17.9] 06/30/2024 07/05/2024 Acute urinary retention [R33.8] 06/30/2024 07/13/2024 Malnutrition of mild degree (HCC) [E44.1] 07/01/2024 07/13/2024 PONV (postoperative nausea and vomiting) [R11.2*07/03/2024 05/25/2025 UTI (urinary tract infection) [N39.0] 07/03/2024 07/05/2024 UTI (urinary tract infection) [N39.0] 07/06/2024 07/13/2024 YUMIKO (acute kidney injury) (HCC) [N17.9] 07/06/2024 07/13/2024 Hypotension [I95.9] 07/06/2024 07/13/2024 LBBB (left bundle branch block) [I44.7] 05/02/2025 At risk for retention of urine [Z91.89] 05/02/2025 Major neurocognitive disorder (HCC) [F03.90] 05/02/2025 S/P spinal surgery [Z98.890] 05/24/2025 Obesity, Class I, BMI 30-34.9 [E66.811] 05/25/2025 Encounter Status:Closed by BINH ESQUIVEL on 05/25/25 NURSING PROG Observed: 05/24/2025 7:05 PM Status: COMPLETED Source: [facility] HNO ID: [id number] Author: JOSEPH LONG RN Service: ? Author Type: Registered Nurse Type: Nursing Progress Note Filed: 05/24/2025 19:06 Note Text: Transfer Note: PATIENT NAME: Nick Arora Patient Location: [address]/[place] [address] Room: [place] [address] Patient transferred into room/unit 518 in stable condition. Patient educated on use of call light and fall precautions. No futher actions taken at this time. Will continue to monitor and check with patient. ANES POSTPROC EVAL Observed: 05/24/2025 6:10 PM Status: COMPLETED Source: [facility] HNO ID: [id number] Author: MAL CHUA MD Service: Anesthesiology Author Type: Anesthesiologist Type: Anesthesia Postprocedure Evaluation Filed: 05/24/2025 18:11 Note Text: POST ANESTHESIA EVALUATION NOTE : 1960 Procedure Summary Date: 05/24/25 Room / Location: [place] [address] / OR Anesthesia Start: 1534 Anesthesia Stop: 1758 Procedures: LAMINECTOMY DECOMPRESSION FACETECTOMY AND FORAMINOTOMY (Spine Lumbar) DECOMPRESSION LAMINECTOMY 1ST ADD'L LUMBAR SEGMENT (Spine Lumbar) Diagnosis: Spinal stenosis, lumbar region, with neurogenic claudication (Spinal stenosis, lumbar region, with neurogenic claudication [M48.062]) Surgeons: Valorie Ayala MD Responsible Provider: Mal Chua MD Anesthesia Type: general ASA Status: 3 Anesthesia Type: general Airway Type: ETT Last Vitals Vitals Value Taken Time BP 171/85 05/24/25 18:00 Temp 36 ?C (96.8 ?F) 05/24/25 17:56 Pulse 63 05/24/25 18:10 Resp 16 05/24/25 18:00 SpO2 100 % 05/24/25 18:10 Vitals shown include unfiled device data. Post Anesthesia Patient Status Patient Evaluation: PACU. PACU/ICU Patient Condition: stable. Anticipated Disposition: inpatient floor planned admission. Neurological Status: aware and responsive. Pulmonary Status: breathing comfortably on room air Airway Control: returned to baseline unsupported. Cardiovascular Status: stable. Pain Management: clinically adequate - multimodal analgesia pain management approach Postoperative Hydration: acceptable. Intraoperative Events: no significant anesthesia events Post Operative Nausea/Vomiting Status: no significant post operative nausea or vomiting Recommendation: continue current plan of care. Anesthesia Observations No Documentation SIGNATURE: Mal Chua MD PATIENT NAME: Nick Arora DATE: May 24, 2025 TIME: 6:10 PM CSN: [id number] BRIEF OP NOT Observed: 05/24/2025 5:48 PM Status: COMPLETED [id number] Author: VALORIE AYALA MD Service: Neurosurgery Author Type: Physician Type: Brief Op Note Filed: 05/24/2025 17:51 Note Text: BRIEF OPERATIVE / PROCEDURE NOTE LOG ID: [id number] SURGERY/PROCEDURE DATE: 05/24/2025 INCISION/PROCEDURE START TIME: 4:12 PM INCISION CLOSE/PROCEDURE END TIME: 5:47 PM SURGEON(S)/PROCEDURALIST(S) AND BEHAVIORAL HEALTH THERAPIST(S): Surgeons and Role: * Valorie Ayala MD - Primary Physician Instructor Of Spanish: Vanda Moulton PA-C SURGERY/PROCEDURE(S): L3, L4 decompressive laminectomy, decompression of L3-4, L4-5 lumbar canal stenosis with bilateral root foraminotomies Operative microscope used for decompression and foraminotomies ANESTHESIA: General FINDINGS: Severe lumbar canal stenosis at L3-4, L4-5 levels Bilateral synovial cyst at L3-4 level, left side more than right side ESTIMATED BLOOD LOSS: 80 mls SPECIMENS: None COMPLICATIONS: None DRAINS: None CLOSURE TECHNIQUE: Primary PRE-OP/PRE-PROCEDURE DIAGNOSIS: L3-4, L4-5 lumbar canal stenosis with neurogenic claudication POST-OP/POST-PROCEDURE DIAGNOSIS: L3-4, L4-5 lumbar canal stenosis with neurogenic claudication SIGNATURE: Valorie Ayala MD PATIENT NAME: Nick Arora DATE: May 24, 2025 TIME: 5:48 PM XR VERIFY LEVEL L-SPINE-NB Observed: 4:28 PM Status: F Source: [facility] * * *Final Report* * * DATE OF EXAM: May 24 2025 4:28PM ETIENNE 5642 - XR VERIFY LEVEL L-SPINE-NB / PROCEDURE REASON: Spinal stenosis, lumbar region * * * * Physician Interpretation * * * * EXAMINATION: XR VERIFY LEVEL L-SPINE-NB CLINICAL INFORMATION: 65 years old Male with Spinal stenosis, lumbar region TECHNIQUE: Single lateral intraoperative image of the lumbar spine timed 4:25 PM labeled #2. COMPARISON: MR lumbar spine 03/27/2025 RESULT: Counting reference: Lumbosacral junction. Mid L4 is considered the level of the iliac crest. A single lateral image is obtained intraoperatively for surgical planning. Through a posterior approach, a localizing surgical probe tip is directed towards the L4-L5 disc space. Image annotated with vertebral body levels and confirmed with the responsible surgeon at the time of interpretation. IMPRESSION: Intraoperative examination for surgical planning and documentation. COMMUNICATION: Localization level(s) confirmed with: Dr. VALORIE AYALA on 05/24/2025 4:31 PM via phone and video during the surgical procedure. Director Occupational: [employer] Transcribe Date/Time: May 24 2025 4:31P Dictated by : RAEGAN POWER DO This examination was interpreted and the report reviewed and electronically signed by: RAEGAN POWER DO on May 24 2025 4:31PM EST [id number] XR LUMBAR SPECIFY 1V Observed: 4:07 PM Status: F Source: [facility] * * *Final Report* * * DATE OF EXAM: May 24 2025 4:07PM ETIENNE 5234 - XR LUMBAR SPECIFY 1V / PROCEDURE REASON: Spinal stenosis, lumbar region * * * * Physician Interpretation * * * * EXAMINATION: XR LUMBAR SPECIFY 1V CLINICAL INFORMATION: 65 years old Male with Spinal stenosis, lumbar region TECHNIQUE: Single lateral intraoperative image of the lumbar spine timed 4:03 PM labeled #1. COMPARISON: MR lumbar spine 03/27/2025 RESULT: Counting reference: Lumbosacral junction. Upper L4 is considered the level of the iliac crest. A single lateral image is obtained intraoperatively for surgical planning. Through a posterior approach, a localizing surgical instrument tip is in the dorsal soft tissues directed towards the L4-L5 level. IMPRESSION: Intraoperative examination for surgical planning and documentation. Director Occupational: [employer] Transcribe Date/Time: May 24 2025 4:50P Dictated by : RAEGAN POWER DO This examination was interpreted and the report reviewed and electronically signed by: RAEGAN POWER DO on May 24 2025 4:50PM EST [id number] ANES PROCEDURE NOTE Observed: 05/24/2025 4:05 PM Status: COMPLETED Source: [facility] HNO ID: [id number] Author: LILA RECINOS APRN.SECRETARY ADMINISTRATIVE ASSISTANT Service: Anesthesiology Author Type: Nurse Spar Machine Operator Type: Anesthesia Procedure Notes Filed: 05/24/2025 16:06 Note Text: ANESTHESIOLOGY PROCEDURE NOTE Airway General Information Procedure Start Time/Medication Administration: 05/24/2025 3:39 PM Procedure End Time: 05/24/2025 3:41 PM Patient location during procedure: OR Timeout Performed Pre-procedure: timeout performed Consent Obtained: Yes Patient identity confirmed: arm band Staffing Anesthesiologist: Mal Chua MD SECRETARY ADMINISTRATIVE ASSISTANT: Lila Recinos APRN.SECRETARY ADMINISTRATIVE ASSISTANT Performed by: GEM Indications and Patient Condition Indications for airway management: anesthesia Preoxygenated: yes anesthesia circuit Patient position: sniffing Method: asleep Cricoid Pressure: No Manual In-Line Stabilization: No Difficult Mask: No Final Airway Details Final airway type: endotracheal airwayFinal Endotracheal Airway: ETT Cuffed: yes Devices used: Mireles Endotracheal tube insertion site: oral Blade: Malachi Blade size: #4 ETT size (mm): 7.5 Measured from: lips Measurement (cm): 22 Placement verified by: chest auscultation and capnometry Number of attempts at approach: 1 Failed airway: no Unrecognized esophageal intubation: no Airway not difficult SIGNATURE: Lila Recinos APRN.CRNA PATIENT NAME: Nick Arora DATE: May 24, 2025 TIME: 4:05 PM CSN: [id number] OPERATIVE NO Observed: 05/24/2025 3:35 PM Status: COMPLETED Source: [facility] HNO ID: [id number] Author: VALORIE AYALA MD Service: Neurosurgery Author Type: Physician Type: Operative Report Filed: 05/24/2025 17:56 Note Text: OPERATIVE/PROCEDURE REPORT LOG ID: [id number] SURGERY/PROCEDURE DATE: 05/24/2025 INCISION/PROCEDURE START TIME: 4:12 PM INCISION CLOSE/PROCEDURE END TIME: 5:47 PM SURGEON(S)/PROCEDURALIST(S) AND BEHAVIORAL HEALTH THERAPIST(S): Surgeons and Role: * Valorie Ayala MD - Primary Physician Instructor Of Spanish: Vanda Moulton PA-C ANESTHESIA: General PRE-OP/PRE-PROCEDURE DIAGNOSIS: L3-4, L4-5 lumbar canal stenosis with neurogenic claudication POST-OP/POST-PROCEDURE DIAGNOSIS: L3-4, L4-5 lumbar canal stenosis with neurogenic claudication SURGERY/PROCEDURE(S): L3, L4 decompressive laminectomy, decompression of L3-4, L4-5 lumbar canal stenosis with bilateral root foraminotomies Operative microscope used for decompression and foraminotomies FINDINGS: Severe lumbar canal stenosis at L3-4, L4-5 levels Bilateral synovial cyst at L3-4 level, left side more than right side SURGERY/PROCEDURE DETAILS: After identifying the correct patient, he was taken to the operating room. While he was on the transport gurney, he underwent smooth and adequate general anesthesia. All pressure points were padded adequately. He was placed prone over the nito table. Incision was marked over L3-5 level. Received 2 gms of Ancef as preoperative antibiotics. Back was prepped and draped in usual sterile manner. Pre operative time out was done. Incision was made and carried down to the subcutaneous tissue level. Facia opened on the midline. L3-5 spinous process, partial L3, L4, L5 lamina was exposed bilaterally by elevating the muscles. Self retaining retractor was placed. Intra operative x ray was done to confirm the L4-5 disk space level. Level was marked with permanent marker. housecalls nurse radiologist reviewed the image remotely and confirmed the level. Inferior half of L3, complete L4 laminectomy was done with drill. Facets were moderately hypertrophied at L3-4, L4-5 levels. Ligamentum flavum was very thick which was removed using Kerrison rongeur. Microscope was brought into the field at this time and further procedure was done with microscope. Severe lumbar canal stenosis was noticed at L3-4, L4-5 level due to facet hypertrophy and ligamentum flavum thickening. Ligamentum flavum was removed. Bilateral synovial cyst were noticed at L3-4 level, left side is larger than the right side with a severe L4 root compression. Wide L3, L4, L5 root foraminotomies were done bilaterally. After completion of decompression and foraminotomy, the dura and root was free of compression. No CSF leak was noticed with valsalva. Microscope was brought out from the field. Wound was irrigated with copious mount of irrigation. Hemostasis was achieved with bipolar cautery. Wound was closed in layers, #1 vicryl for fascia, 2- vicryl for subcutaneous tissue and 3-0 chromic for skin in a subcuticular fashion. Tincture benzoin and steri strip dressing was done. Patient was turned over the bed, awakened, extubated in the operating room. He was escorted to the recovery room in a stable condition ESTIMATED BLOOD LOSS: 80 mls SPECIMENS: None IMPLANTABLE DEVICES: NONE DRAINS: None COMPLICATIONS: None CLOSURE TECHNIQUE: Primary PARTICIPATION IN SURGERY/PROCEDURE: I/primary surgeon/proceduralist performed the procedure with assistance. No qualified resident/fellow was available. The advanced practice provider provided surgical dressing maker services in a non-teaching setting. My quality assistant was present during patient positioning, prepping, draping, opening, retracting, closing, and bandaging; and this assistance was medically necessary given the complexity of the case. SIGNATURE: Valorie Ayala MD PATIENT NAME: Nick Arora DATE: May 24, 2025 TIME: 5:51 PM HISTORY PHYSICAL Observed: 05/24/2025 3:31 PM Status: COMPLETED [facility] [id number] Author: VALORIE AYALA MD Service: Neurosurgery Author Type: Physician Type: H&P Filed: 05/24/2025 15:31 Note Text: UPDATED HISTORY AND PHYSICAL EXAMINATION SERVICE DATE: 05/24/2025 SERVICE TIME: 3:31 PM PHYSICAL EXAM MUST BE COMPLETED ON ADMISSION The History and Physical (completed in the past 30 days) has been reviewed and the patient has been examined. The contents accurately reflect the patient's condition with the following additions or revisions since the HANDP was completed. Examination indicates no changes. This HANDP can be found in the Electronic Medical Record dated 05/02/2025 I again discussed about the surgical procedure, its advantages and risks All his questions were answered. Consent for surgery obtained. Lab results reviewed. Operative site marked. Proceeding with L3, L4 laminectomy, decompression of L3-4, L4-5 lumbar canal stenosis and decompression of synovial cyst with bilateral root foraminotomies SIGNATURE: Valorie Ayala MD PATIENT NAME: Nick Arora DATE: May 24, 2025 TIME: 3:31 PM PAGER: [phone] ANES PRE-OP Observed: 05/24/2025 3:03 PM Status: COMPLETED Source: [facility] HNO ID: [id number] Author: MAL CHUA MD Service: Anesthesiology Author Type: Anesthesiologist Type: Anesthesia Preprocedure Evaluation Filed: 05/24/2025 15:03 Note Text: ANESTHESIOLOGY DAY OF SURGERY NOTE : 1960 Procedure Information Date/Time: 05/24/25 1530 Procedures: LAMINECTOMY DECOMPRESSION FACETECTOMY AND FORAMINOTOMY (Spine Lumbar) DECOMPRESSION LAMINECTOMY 1ST ADD'L LUMBAR SEGMENT (Spine Lumbar) - L3-4 lami decompression of L3-4, L4-5 canal stenosis with foraminotomy Location: [facility]08 / [facility] Surgeons: Valorie Ayala MD Estimated body mass index is 30.16 kg/m? as calculated from the following: Height as of 05/02/25: 174 cm (5' 8.5). Weight as of 05/02/25: 91.3 kg (201 lb 4.5 oz). Most recent hematocrit and potassium results: Hematocrit 42.2 05/02/2025 Potassium 4.2 05/02/2025 Relevant Problems ANESTHESIA (+) PONV (postoperative nausea and vomiting) CARDIO (+) Essential (primary) hypertension (+) LBBB (left bundle branch block) ENDO (+) Type 2 diabetes mellitus without complication, without long-term current use of insulin (HCC) -RENAL (+) Calculus of kidney Neurology (+) Parkinson's disease with dyskinesia (HCC) Cardiovascular (+) Mixed hyperlipidemia I - PHYSICAL EVALUATION AIRWAY Patient intubated: No. Tracheostomy tube not present Mallampati: III. TM distance: >3 FB. Neck ROM: full. Mouth opening: adequate. Short neck: no. Thick neck: no DENTAL Normal dental observations. Dental findings: teeth intact. Additional exam findings: yes. CARDIOVASCULAR Normal cardiovascular observations. Rhythm: regular Rate: normal PULMONARY Normal pulmonary observations. Breath sounds clear to auscultation. II - ANESTHESIA PLAN ASA Score: 3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 carbidopa-levodopa (SINEMET 25-100) 25-100 mg per tablet acetaminophen (TYLENOL) 500 mg tablet tamsulosin (FLOMAX) 0.[address] (PROTONIX) 40 mg tablet senna-docusate (SENNA-S) 8.6-50 mg per tablet lisinopril (ZESTRIL) 10 mg tablet polyethylene glycol 3350 17 gram packet spironolactone (ALDACTONE) 25 mg tablet aspirin 81 mg cap iv contrast (will be provided with radiology test) cloNIDine HCl (CATAPRES) 0.2 mg tablet citalopram (CELEXA) 40 mg tablet -Recently stopped Benadryl for sleep and oxybutynin Side Effects: Denied Substance Use: Current substance use is unremarkable. Past substance use is unremarkable Family History: No family history of dementia Prior Workup [facility]SE (01/23/25): 24/30. No prior GI TECHNICIAN testing on file Neurologic Exam (03/27/25): R>L parkinsonism MRI (01/06/24): Severe chronic microvascular changes, moderate generalized volume loss Labs: B12 (06/28) - WNL. Folate (06/28) - WNL. TSH (02/25) - WNL. Neurobehavioral Exam AND Observations Consciousness: Awake and alert Ambulation: Cane Dress: Appropriate Demeanor: Friendly, open, limited historian Language Comprehension: Intact Language Output: No word finding pauses or paraphasic errors observed Speech: Fluent and articulate with normal rate, volume, prosody, repetition Thought Processes: Tangential, at times difficult to follow Thought Content: No evidence of hallucinations or delusional thinking Affect: Euthymic Orientation: Incorrect date, month. Did not know current location. Correct day, year, city, floor, president Sensory: Adequate vision/hearing for testing (wore glasses) Motor: Action tremor observed during testing TEST RESULTS: Test Specific Behavioral Observations He was pleasant and cooperative with all evaluation procedures. He required repetition of instructions on nearly every test but was eventually able to understand all task demands. He appeared to put forth sufficient effort. He was chatty during testing and often joked with the medical imaging technician. On Daily Living Memory Recognition he did not provide a response on 2 of the 8 items, which was considered in interpretation. He demonstrated good mental stamina; no breaks. Validity The patient scored in the valid range on three of three standalone and embedded performance validity tests. When viewed together with behavioral observations, the results are judged to be a valid and accurate representation of his current neurocognitive functioning. A list of administered tests and a summary of individual test scores is attached as an addendum. An overview of the results is below but I will not discuss every single test or score. Screening Measures Clock Drawing Tests: 5/10 Moderate Impairment (normal clock face, numbers backwards, only 1 hand) Premorbid Low Average Attention AND Processing Speed Auditory Attention Span: Average Auditory Working Memory: Exceptionally Low to Moderately Low Visual Working Memory: Moderately Low Speed of Information Processing: Variable (Exceptionally Low to Low Average) Language AND Verbal Confrontation Naming: Exceptionally Low (good benefit from cues) Semantic Fluency: Average Learning AND Memory Verbal Unstructured Immediate Recall: Exceptionally Low Delayed Recall: Exceptionally Low Recognition: Moderately Low Verbal Structured Immediate Recall: Moderately Low Delayed Recall: Low Average Recognition: Moderately Low (questionable clinical significance) Visual Immediate Recall: Exceptionally Low Delayed Recall: Exceptionally Low Recognition: Within Normal Expectations Visuospatial AND Construction Visuoperception: Exceptionally Low Visuoconstruction (figure copy): Moderately Low Visuoconstruction (three dimensional blocks): Moderately Low Executive Functions Phonemic Fluency: Exceptionally Low Inhibitory Control: Exceptionally Low Set Shifting: Exceptionally Low Judgment: Exceptionally Low Abstract Reasoning/Problem Solving: Moderately Low Emotional Functioning He endorsed minimal symptoms of depression/anxiety on mood screening measures. Collateral Measures (completed by daughter) Functional status consistent with moderate dementia but with some fluctuations. Neurobehavioral symptoms include hallucinations, agitation, depression, anxiety, elation, disinhibition, irritability, motor disturbance, nighttime behaviors, and decreased appetite. SUMMARY AND CLINICAL IMPRESSIONS: Summary of Test Findings: Results from this neuropsychological evaluation suggest that Mr. Arora's longstanding general level of ability has likely been in the low average range. Within that context, he demonstrated reduced functioning in the following areas: 1) Moderate to severe deficit in executive functioning including inhibitory control, set shifting, judgment, abstract reasoning, and phonemic fluency. 2) Mild to moderate deficit in spatial functioning. 3) Mild to moderate deficit in verbal and visual memory with an executive pattern. Visual memory may have been impacted by spatial difficulties to some degree. 4) Mild deficit in confrontation naming with good benefit from cues suggesting a retrieval problem rather than loss of semantic knowledge. 4) Variability on tests of processing speed and working memory suggesting a mild deficit in this domain. Performance was otherwise commensurate with premorbid functioning. He endorsed minimal symptoms of depression/anxiety on mood screening measures; however, his daughter reported numerous neurobehavioral symptoms including depression and anxiety. He receives help in multiple IADLs. Clinical Impressions: Mr. Arora's current level of functioning is consistent with mild dementia. Etiology is likely mixed Parkinson's disease and severe cerebrovascular disease. Significant sleep issues/insomnia are probably exacerbating his cognitive difficulties but are now somewhat improved with Seroquel. He was previously taking Benadryl and oxybutynin which may have been a contributing factor, but he has since stopped these medications. His cognitive profile is not strongly suggestive of Alzheimer's disease, but Alzheimer's disease often cooccurs with other degenerative conditions and this cannot be ruled out. Neurobehavioral symptoms are likely mostly secondary to Parkinson's/cerebrovascular disease. Diagnostic Impressions: Mild Dementia Recommendations: Given his cognitive difficulties, Mr. Arora will continue to need help with daily activities. He may need help from his family to make medical and financial decisions. I recommend that they continue to accompany him to doctors' appointments due to concern that he will forget what was said. A home health aide or alternative living arrangements may be necessary so that he can receive the care that he needs. I recommend that he discontinue driving due to the severity of his cognitive impairment. If he does not want to discontinue driving, then a repeat driving evaluation may be necessary. Individuals with dementia usually benefit from a consistent routine. Regular physical activity such as walking or low impact exercises, enjoyable structured activities/hobbies, and socializing with family/friends are helpful for mood and memory. It is important that he participate in activities that match his cognitive abilities as activities that are too challenging can lead to agitation. This evaluation serves as a useful baseline against which future comparisons can be made. I would be happy to re-evaluate him to inform treatment and update recommendations as needed. Follow Up: The test findings, clinical impressions, and recommendations were discussed with Mr. Arora and his family. We had a long discussion and all questions were answered. They were encouraged to contact me if they have any questions in the future or if further follow-up is needed. Thank you for the opportunity to participate in the care of Mr. Arora. Please contact me if you have any questions about the evaluation ([phone]). Nick Ruggiero, PhD Clinical Neuropsychologist Neurobehavioral status exam/clinical interview by neuropsychologist (15529) = 1 hour Neuropsychological evaluation services by neuropsychologist (06338/43830) = 4 hours Neuropsychological test administration/scoring by neuropsychologist (08961) = 30 minutes Neuropsychological test administration/scoring by supervisor of operations (54619/22913) = 180 minutes Referring Provider: MIRANDA DEL RIO [[id number]] Allergies As of Date: 05/23/2025 Noted Allergy Reaction GABAPENTIN 05/02/2025 1 - Mental Status Change 8 - GI Upset 11 - Vomiting HYDROCODONE 04/23/2023 8 - GI Upset TRAMADOL 04/23/2023 8 - GI Upset VICODIN (HYDROCODONE-ACETAMINOPHE*12/08/2023 8 - GI Upset Date Reviewed: 05/02/2025 Reviewed by: Joselyn Cotto LPN - Fully Assessed Reason for Visit: Results [95] Primary Visit Diagnosis:Mild dementia with other behavioral disturbance, unspecified dementia type (HCC) [F03.A18] Prescriptions as of 05/23/2025 - mupirocin (BACTROBAN) 2 % ointment Apply 1/2 ointment with a cotton swap in each nostril 2x daily for five days preop - trospium (SANCTURA) 20 mg tablet Take 1 tablet by mouth two times a day. - QUEtiapine (SEROQUEL) 25 mg tablet Take 1 tablet by mouth daily at bedtime. - traZODone (DESYREL) 150 mg tablet Take 1 tablet by mouth daily at bedtime. - donepezil (ARICEPT) 10 mg tablet After on trazodone for 2 weeks, start 1/2 pill once a day for 1 month then increase to a full pill once a day thereafter. - atorvastatin (LIPITOR) 20 mg tablet TAKE 1 TABLET BY MOUTH ONCE DAILY AT BEDTIME - dapagliflozin propanediol (FARXIGA) 10 mg tablet Take 1 tablet by mouth daily with breakfast. - carbidopa-levodopa (SINEMET 25-100) 25-100 mg per tablet Take 2 tablets by mouth three times a day. - acetaminophen (TYLENOL) 500 mg tablet Take 2 tablets by mouth every 8 hours. - tamsulosin (FLOMAX) 0.4 mg Take 1 capsule by mouth once daily. - pantoprazole DR (PROTONIX) 40 mg tablet Take 1 tablet by mouth two times a day before meals at 6 am and 4 pm. - senna-docusate (SENNA-S) 8.6-50 mg per tablet Take 1 tablet by mouth two times a day. - lisinopril (ZESTRIL) 10 mg tablet Take 1 tablet by mouth once daily. - polyethylene glycol 3350 17 gram packet Take 1 Packet by mouth two times a day. Dissolve dose in 4 - 8 ounces of liquid and take as directed. - spironolactone (ALDACTONE) 25 mg tablet Take 1 tablet by mouth once daily. - aspirin 81 mg cap Take 81 mg by mouth once daily. - iv contrast (will be provided with radiology test) CTA Head/Neck W No IV access, insert saline lock prior to the sedation, infusion, injection for imaging exam. Discontinue saline lock post exam. If Pt. has a central line or IVAD, may access for administration according to line specific nursing protocol. Once exam is complete flush line and de-access according to line specific nursing protocol in the CT contrast administration guidelines link. - cloNIDine HCl (CATAPRES) 0.2 mg tablet Take 0.2 mg by mouth two times a day. - citalopram (CELEXA) 40 mg tablet Take 40 mg by mouth once daily. Problem List As Of Date 05/23/2025 Noted Resolved Mixed hyperlipidemia [E78.2] 02/21/2022 Diagnosed: 12/08/2023 Calculus of kidney [N20.0] 12/08/2023 Diagnosed: 12/08/2023 Essential (primary) hypertension [I10] 02/21/2022 Diagnosed: 12/08/2023 Mild depression [F32.A] 12/08/2023 Diagnosed: 12/08/2023 Type 2 diabetes mellitus without complication, *03/09/2024 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/18/2024 Chronic bilateral low back pain with bilateral *04/18/2024 Parkinson's disease with dyskinesia (HCC) [G20.*04/18/2024 Aftercare [Z51.89] 06/29/2024 Status post total left knee replacement [Z96.65*06/29/2024 YUMIKO (acute kidney injury) (HCC) [N17.9] 06/30/2024 07/05/2024 Acute urinary retention [R33.8] 06/30/2024 07/13/2024 Malnutrition of mild degree (HCC) [E44.1] 07/01/2024 07/13/2024 PONV (postoperative nausea and vomiting) [R11.2*07/03/2024 UTI (urinary tract infection) [N39.0] 07/03/2024 07/05/2024 UTI (urinary tract infection) [N39.0] 07/06/2024 07/13/2024 YUMIKO (acute kidney injury) (HCC) [N17.9] 07/06/2024 07/13/2024 Hypotension [I95.9] 07/06/2024 07/13/2024 LBBB (left bundle branch block) [I44.7] 05/02/2025 At risk for retention of urine [Z91.89] 05/02/2025 Major neurocognitive disorder (HCC) [F03.90] 05/02/2025 Letter Text Encounter Status:Closed by NICK RUGGIERO on 05/23/25 NT-PROBNP SERPL-MCNC Collected: 025 11:01 AM Status: F Source: [facility] Order Comment: Specimen Type : BLOOD SPECIMEN Ordering Facility: [facility] Address: [address] [place] [address] TYPE CODE TESTS RESULT OUT OF RANGE REFERENCE UNITS LAB 65981-0(LOINC) NT-proBNP SerPl-mCnc 103 <125 pg/mL Performed By: #### 45243-4 # ### [facility] CLIA [id number] [address] [place] [address] [place] CONFIRM BLOOD TYPE Collected: 3:29 PM Status: F Source: [facility] Order Comment: Specimen Type : BLOOD SPECIMEN Ordering Facility: [facility] Address: [address] [place] [address] TYPE CODE TESTS RESULT OUT OF RANGE REFERENCE UNITS LAB [id number] ABO O LAB [id number] RH Positive Performed By: #### CONABO ## ## CC [facility] CLIA [id number] [address] [place] [address] [place] IRON+TIBC PNL SERPL Collected: 05/02/2025 3:[address] atus: F Source: [facility] Order Comment: Specimen Type : BLOOD SPECIMEN Ordering Facility: [facility] Address: [address] [place] [address] TYPE CODE TESTS RESULT OUT OF RANGE REFERENCE UNITS LAB 2498-4(LOINC) Iron SerPl-mCnc 79 41-186 ug/dL LAB 2500-7(LOINC) TIBC SerPl-mCnc 281 232-386 ug/dL LAB 04649-6([facility]) Iron/TIBC SerPl-sRto 28.1 15.0-57.0 % Performed By: #### 97592-7, 2276-4, 54620-6 #### [facility] CLIA [id number] [address] [place] [address] FERRITIN SERPL-MCNC Collected: 05/02/20 3:21 PM Status: F Source: [facility] Order Comment: Specimen Type : BLOOD SPECIMEN Ordering Facility: [facility] Address: [address] [place] [address] TYPE CODE TESTS RESULT OUT OF RANGE REFERENCE UNITS LAB 6-4([facility]) Ferritin SerPl-mCnc 182.0 30.3-565.7 ng/mL Performed By: #### 43113-0, 2275-4, 61185-7 #### [facility] CLIA [id number] [address] [place] [address] [place] COMP METAB 2000 PNL SERPL Collected: 3:21 PM Status: F Source: [facility] Order Comment: Specimen Type : BLOOD SPECIMEN Ordering Facility: [facility] Address: [address] [place] [address] TYPE CODE TESTS RESULT OUT OF RANGE REFERENCE UNITS LAB 2885-2(LOINC) Prot SerPl-mCnc 6.7 6.3-8.0 g/dL LAB 1751-7(LOINC) Albumin SerPl-mCnc 4.3 3.9-4.9 g/dL LAB 04277-7(LOINC) Calcium SerPl-mCnc 9.5 8.5-10.2 mg/dL LAB 1975-2(LOINC) Bilirub SerPl-mCnc 0.3 0.2-1.3 mg/dL LAB 6768-6(LOINC) ALP SerPl-cCnc 103 38-113 U/L LAB 1920-8(LOINC) AST SerPl-cCnc 15 14-40 U/L LAB 1742-6(LOINC) ALT SerPl-cCnc <5 Low 10-54 U/L Result Comment: Result reche cked. LAB 2345-7(LOINC) Glucose SerPl-mCnc 124 High 74-99 mg/dL Result Comment: The [place] Diabetes Association (ADA) provides guidance for cutoff values for fasting glucose and random glucose. The ADA defines fasting as no caloric intake for at least 8 hours. Fasting plasma glucose results between 100 to 125 mg/dL indicate increased risk for diabetes (prediabetes). Fasting plasma glucose results greater than or equal to 126 mg/dL meet the criteria for diagnosis of diabetes. In the absence of unequivocal hyperglycemia, results should be confirmed by repeat testing. In a patient with classic symptoms of hyperglycemia or hyperglycemic crisis, random plasma glucose results greater than or equal to 200 mg/dL meet the criteria for diagnosis of diabetes. Reference: Standards of Medical Care in Diabetes 2016, [employer] Diabetes Association. Diabetes Care. 2016.39(Suppl 1). LAB 3094-0(LOINC) BUN SerPl-mCnc 19 9-24 mg/dL LAB 2160-0(LOINC) Creat SerPl-mCnc 1.11 0.73-1.22 mg/dL LAB 2951-2(LOINC) Sodium SerPl-sCnc 139 136-144 mmol/L LAB 2823-3(LOINC) Potassium SerPl-sCnc 4.2 3.7-5.1 mmol/L LAB 2075-0(LOINC) Chloride SerPl-sCnc 102 98-107 mmol/L LAB 2028-9(LOINC) CO2 SerPl-sCnc 25 22-30 mmol/L LAB 78210-9(LOINC) Anion Gap SerPl-sCnc 12 8-15 mmol/L LAB 67994-2(LOINC) eGFRcr SerPlBld CKD-EPI 2020 73 >=60 mL/min/1. 73m??? Result Comment: Estimated Gl omerular Filtration Rate (eGFR) is calculated using the 2020 CKD-EPI creatinine equation. This equation utilizes serum creatinine, sex, and age as parameters. The creatinine assay has traceable calibration to isotope dilution-mass spectrometry. Refer to KDIGO guidelines for clinical interpretation. In patients with unstable renal function, e.g. those with acute kidney injury, the eGFR may not accurately reflect actual GFR. Performed By: #### 24374-2, 2646-4, 64399-7 #### [facility] CLIA [id number] [address] [place] [address] [place] [address] [place] CBC W AUTO DIFF BLD Collected: 05/02/2025 3:[address] atus: F Source: [facility] Order Comment: Specimen Type : BLOOD SPECIMEN Ordering Facility: [facility] Address: [address] [place] [address] TYPE CODE TESTS RESULT OUT OF RANGE REFERENCE UNITS LAB 6690-2(LOINC) WBC # Bld Auto 7.53 3.70-11.00 k/uL LAB 789-8(LOINC) RBC # Bld Auto 4.57 4.20-6.00 m/ uL LAB 718-7(LOINC) Hgb Bld-mCnc 14.0 13.0-17.0 g/dL LAB 4544-3(INC) Hct VFr Bld Auto 42.2 39.0-51.0 % LAB 787-2(LOINC) MCV RBC Auto 92.3 80.0-100.0 fL LAB 785-6(LOINC) MCH RBC Qn Auto 30.6 26.0-34.0 p g LAB 786-4(LOINC) MCHC RBC Auto-mCnc 33.2 30.5-36.0 g/dL LAB 20859-7(INC) RDW RBC-Rto 12.4 11.5-15.0 % LAB 777-3(LOINC) Platelet # Bld Auto 286 150-400 k/uL LAB 79000-3(LOINC) PMV Bld Auto 8.9 Low 9.0-12.7 fL LAB 770-8(LOINC) Neutrophils/leuk NFr Bld Auto 51.6 % LAB 751-8(LOINC) Neutrophils # Bld Auto 3.89 1.45-7.50 k/uL LAB 736-9(LOINC) Lymphocytes/leuk NFr Bld Auto 36.9 % LAB 731-0(LOINC) Lymphocytes # Bld Auto 2.78 1.00-4.00 k/uL LAB 5905-5(LOINC) Monocytes/leuk NFr Bld Auto 8.8 % LAB 742-7(LOINC) Monocytes # Bld Auto 0.66 <0.87 k/uL LAB 713-8(LOINC) Eosinophil/leuk NFr Bld Auto 1.6 % LAB 711-2(LOINC) Eosinophil # Bld Auto 0.12 <0.46 k/uL LAB 706-2(LOINC) Basophils/leuk NFr Bld Auto 0.8 % LAB 704-7(LOINC) Basophils # Bld Auto 0.06 <0.11 k/uL LAB 04649-9(LOINC) Imm Granulocytes/jose rafael k NFr Bld Auto 0.3 % LAB 62804-8(LOINC) Imm Granulocytes # Bld Auto <0.03 <0.10 k/uL LAB 55230-0(LOINC) nRBC/100 WBC Bld-Rto 0.0 /100 WBC LAB 771-6(LOINC) nRBC # Bld Auto <0.01 <0.01 k/u L LAB 44391-5(LOINC) Differential method Bld Auto Performed By: #### 66624-7 # ### [facility] CLIA [id number] DEPRECATED HGB A1C BLD Collected: 05/02 3:21 PM Status: F Source: [facility] Comment: Specimen Type : BLOOD SPECIMEN Ordering Facility: [facility] Address: [address] [place] [address] TYPE CODE TESTS RESULT OUT OF RANGE REFERENCE UNITS LAB 4548-4([facility]) HbA1c MFr Bld 6.4 High 4.3-5.6 % Result Comment: [place] betes Association guidelines indicate that patients with HgbA1c in the range 5.7-6.4% are at increased risk for development of diabetes, and intervention by lifestyle modification may be beneficial. HgbA1c greater or equal to 6.5% is considered diagnostic of diabetes. LAB 02794-3(INC) Est. average glucose Bld gHb Est-mCnc 137 mg/dL Result Comment: eAG: (Estima miranda average glucose) is a calculated value from HgbA1c and is retail sales representative of the average blood glucose level in the last 2-3 month period. Performed By: #### 80613-4 # ### [facility] CLIA [id number] [address] [place], [place] [address] TYPE AND SCREEN,30 DAY Collected: 05/02/2025 3:21 PM Status: F Source: [facility] Order Comment: Specimen Type : BLOOD SPECIMEN Ordering Facility: [facility] Address: [address] [place] [address] TYPE CODE TESTS RESULT OUT OF RANGE REFERENCE UNITS LAB [id number] ABO O LAB [id number] RH Positive LAB [id number] ANTIBODY SCREEN Negative Performed By: #### [id number] ## ## CC [facility] CLIA [id number] [address] [place], [place] [address] HISTORY PHYSICAL Observed: 05/02/2025 2:30 PM Status: COMPLETED Source: [facility] HNO ID: [id number] Author: CAROLINE SKINNER APRN.CNP Service: ? Author Type: Nurse Practitioner Type: H&P Filed: 05/12/2025 09:42 Note Text: [facility] HISTORY AND PHYSICAL EXAMINATION SERVICE DATE: 05/02/2025 SERVICE TIME: 3:08 PM PRIMARY CARE PHYSICIAN: Aga Benitez MD Assessment Patient has the following medical conditions which may affect promise-operative course: 2. Mild depression (F32.A) - Managed with Celexa and Seroquel. 3. Type 2 diabetes mellitus without complication, without long-term current use of insulin (HCC) (E11.9) - A1c 6.4%; managed with Farxiga. - Patient does not monitor blood glucose at home. - Order repeat A1c today. 4. Mixed hyperlipidemia (E78.2) - Managed with Lipitor. 5. Essential (primary) hypertension (I10) - Well-controlled; BP today 113/67. - Managed with lisinopril. 6. Chronic combined systolic and diastolic heart failure (HCC) (I50.42) - No symptoms or recent admissions. - Reviewed Cardiology notes from Dr. Jensen ([facility]) dated April 2024; echo showed EF 54% and negative stress test. - Continue Aldactone. 7. Parkinson's disease with dyskinesia, unspecified whether manifestations fluctuate (HCC) (G20.B1) - Managed with Sinemet; follow-up with Neurology (Dr. Ross) in March. 8. PONV (postoperative nausea and vomiting) (R11.2) - History of significant PONV after prior anesthesia. - Will notify anesthesia team and request antiemetic prophylaxis. 9. LBBB (left bundle branch block) (I44.7) - Noted on EKG within past year; echo and stress test 3 months prior showed no evidence of ischemia or reduced EF. - Will notify anesthesia team of recent cardiac workup. 10. At risk for retention of urine (Z91.89) - Managed with [facility]. - noted prior catheter from prior appt 11. Major neurocognitive disorder (HCC) (F03.90) - Managed with Aricept. - Encouraged patient to engage in memory games, puzzles, writing, and reading to support cognitive function. ANESTHESIA FINDINGS: Intubation History: No history of difficult intubation. No abnormal airway history Significant Anesthesia Considerations: post op confusion potential postop nausea/vomiting Airway History: No history of difficult airway No abnormal airway history Cuellar Activity Status Index: METS: Walk indoors, such as around the house (1.75 METs) Do light work around the house, such as dusting or washing dishes (2.70 METs) Take care of self; that is eating, dressing, bathing, using the toilet (2.75 METs) Walk a block or two on level ground (2.75 METs) DASI Score: 9.95 (Limited d/t PD and gait ) Patient denies any chest pain or undue shortness of breath with the above physical activity. Patient is limited most or all of the time (uses scooter, mobility device). Clinical Frailty Scale: 4. Apparently vulnerable STOP-Bang Score: Snores loudly Has or is being treated for high blood pressure Patient over 50 years old Male patient Denies feeling tired, fatigued, or sleepy during the daytime Has not been observed to stop breathing or choking/gasping during sleep BMI less than or equal to 35 kg/m2 Does not have a large neck STOP-Bang Score: 4 I - PHYSICAL EVALUATION AIRWAY Patient intubated: No. Tracheostomy tube not present Mallampati: IV. TM distance: >3 FB. Neck ROM: full ROM without neurological symptoms. Mouth opening: adequate. Short neck: no. Thick neck: no Gaitan present: yes Microretrognathia/Micronagthia/Recessed Chin: No DENTAL Dental findings: teeth intact. II - ANESTHESIA PLAN Anesthetic plan additional comments: *PACC/TCI - anesthesia choice. Beta Samantha Monitoring Plan Post Procedure Analgesic Plan Prepared for Surgery: optimally prepared for surgery, pending [see comment]. Labs pending EKG done, noted prior LBBB, but had testing done prior Asymptomatic Continue ASA ADDENDUM: May 03, 2025 8:24 AM Review with anesthesia d/t LBBB on prior EKG ADDENDUM: May 12, 2025 9:42 AM BNP ordered per anesthesia request; stable. Pt can proceed. ADDENDUM: May 03, 2025 12:16 PM Pending NT Pro BNP prior to sx, if normal may proceed. CONSULTS: The following consults have been initiated at this time: anesthesia. Planned Anesthetic: anesthesia choice The Following Tests/Procedures Have Been Initiated: Orders Placed This Encounter CMP Standing Status: Future Expected Date: 05/02/2025 Expiration Date: 08/01/2025 Complete Blood Count and Differential Standing Status: Future Expected Date: 05/02/2025 Expiration Date: 08/01/2025 Hemoglobin A1C Standing Status: Future Expected Date: 05/02/2025 Expiration Date: 08/01/2025 Iron and TIBC Standing Status: Future Expected Date: 05/02/2025 Expiration Date: 08/01/2025 Ferritin Standing Status: Future Expected Date: 05/02/2025 Expiration Date: 08/01/2025 Confirm Blood Type Standing Status: Future Expected Date: 05/02/2025 Expiration Date: 08/01/2025 Did Blood Bank direct you to place this order:: No - Presurgical Workflow Type and Screen, 30 day Standing Status: Future Expected Date: 05/02/2025 Expiration Date: 08/01/2025 Scheduling Instructions: A 30-day Type and Screen test has been ordered for you. This should be scheduled to be collected no earlier than 29 days before your scheduled procedure. If you receive blood products (red blood cells, platelets, plasma, cryoprecipitate) at any point before your procedure or are a female and become , please inform your provider. This test will be canceled, and a standard type and screen will need to be ordered to be collected within 3 days of your procedure. [facility] Surgery or Procedure:: Andrei Status of surgery/procedure:: Scheduled Date of surgery/procedure:: 05/24/2025 REASON FOR VISIT: Nick Arora is a 65 year old male who is scheduled for Procedure(s) with comments: LAMINECTOMY DECOMPRESSION FACETECTOMY AND FORAMINOTOMY (N/A) DECOMPRESSION LAMINECTOMY 1ST ADD'L LUMBAR SEGMENT (N/A) - L3-4 lami decompression of L3-4, L4-5 canal stenosis with foraminotomy at the request of Dr. Valorie Ayala for consultation. My final recommendation will be communicated back to the requesting physician by way of shared medical record or letter. Subjective The patient has the following: COVID-19 Immunization Status This patient has no relevant Health Maintenance data. CHIEF COMPLAINT: pre op HPI: Nick Arora is a 65-year-old male with a history of chronic lower back pain, Parkinson's disease, and cognitive impairment, presenting for preoperative evaluation prior to lumbar spine surgery. 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 He denies any specific injury that initiated the pain. Currently, he rates the pain as a 7/10. He also experiences intermittent numbness in his knees and denies any recent falls. He uses a cane for ambulation and lives in a single-story home, avoiding stairs due to mobility issues. Recording using ambient Qustodio software for draft documentation of the visit was discussed with the patient/authorized retail sales representative; all questions welcomed and answered. Patient/authorized retail sales representative agreed to proceed REVIEW OF SYSTEMS: General: No weight loss, malaise or fevers. Neurological: Positive for: Parkinson's disease. Negative for: MARKETING OPERATIONS ASSOCIATE tumor, dementia, headaches, impaired sensorium, peripheral neuropathy, seizures, TIA and strokes. Respiratory: Negative for: asthma, bronchitis, COPD, current cough, bronchodilator used daily for the last 3 months, dyspnea, home oxygen, orthopnea, pneumonia within 6 weeks, tobacco use, URI < 2 weeks and obstructive sleep apnea. Cardiovascular: Denies dizziness or syncope. Positive for: CHF, hyperlipidemia and hypertension Negative for: abdominal aortic aneurysm, AICD/PPM, angina, anticoagulation therapy, arrhythmia, atrial fibrillation, CAD, chest pain, congenital heart defect, DVT/PE, recent GA, murmur/valvular heart disease, PTCA, PVD, open heart surgery and valve surgery. GI: Negative for: abdominal pain, GERD, GI bleed <30 days, hepatitis, liver disease, nausea, vomiting and ETOH >2 drinks/day. : Denies kidney disease Negative for: on dialysis, dysuria, frequent urination, hematuria, renal failure and urinary tract infection. Endocrine: Positive for: diabetes mellitus. Negative for: hyperthyroidism and hypothyroidism. Hematology: No history of bleeding or clotting disorder. Patient is not taking anti-coagulation or platelet medications. No history of hematological symptoms or problems. Oncology: No history of CA metastasis, chemo within 30 days, or radiotherapy within 90 days. No history of oncological symptoms or problems. Psych: Positive for: depression. Musculoskeletal: Negative for joint pain or swelling, back pain or muscle pain. Skin: Negative for lesions, rash and itching. Implanted Devices: No implanted devices. PAST MEDICAL HISTORY Diagnosis Date Anxiety and depression BPH (benign prostatic hyperplasia) Congestive heart failure (HCC) Diabetes (HCC) Dyslipidemia Hypertension Kidney stone Spinal stenosis TIA (transient ischemic attack) Tremor PAST SURGICAL HISTORY Procedure Laterality Date TOTAL KNEE REPLACEMENT Left 06/2024 FAMILY HISTORY Problem Relation Age of Onset Cancer Mother Diabetes Mother other (HTN) Mother Stroke Mother Sudden Cardiac Father advanced age at 90 yo other (HTN) Father Diabetes Sister other (DM) Sister other (HTN) Sister other (diabetic retinopathy) Sister Cancer Brother colon cancer , stomach cancer other (dm) Brother Stroke Brother Anesthesia Problems No Family History Social History Tobacco Use Smoking status: Never Smokeless tobacco: Never Vaping Use Vaping status: Never Used Substance Use Topics Alcohol use: Not Currently Comment: none now Drug use: Never Prior to Admission medications as of 05/02/25 1438 Medication Sig Last Dose Taking mupirocin (BACTROBAN) 2 % ointment Apply 1/2 ointment with a cotton swap in each nostril 2x daily for five days preop Yes trospium (SANCTURA) 20 mg tablet Take 1 tablet by mouth two times a day. Yes QUEtiapine (SEROQUEL) 25 mg tablet Take 1 tablet by mouth daily at bedtime. Yes donepezil (ARICEPT) 10 mg tablet After on trazodone for 2 weeks, start 1/2 pill once a day for 1 month then increase to a full pill once a day thereafter. Yes atorvastatin (LIPITOR) 20 mg tablet TAKE 1 TABLET BY MOUTH ONCE DAILY AT BEDTIME Yes dapagliflozin propanediol (FARXIGA) 10 mg tablet Take 1 tablet by mouth daily with breakfast. Yes carbidopa-levodopa (SINEMET 25-100) 25-100 mg per tablet Take 2 tablets by mouth three times a day. Yes acetaminophen (TYLENOL) 500 mg tablet Take 2 tablets by mouth every [address] (PROTONIX) 40 mg tablet Take 1 tablet by mouth two times a day before meals at 6 am and 4 pm. Yes senna-docusate (SENNA-S) 8.6-50 mg per tablet Take 1 tablet by mouth two times a day. Yes lisinopril (ZESTRIL) 10 mg tablet Take 1 tablet by mouth once daily. Yes polyethylene glycol 3350 17 gram packet Take 1 Packet by mouth two times a day. Dissolve dose in 4 - 8 ounces of liquid and take as directed. Yes spironolactone (ALDACTONE) 25 mg tablet Take 1 tablet by mouth once daily. Yes aspirin 81 mg cap Take 81 mg by mouth once daily. Yes cloNIDine HCl (CATAPRES) 0.2 mg tablet Take 0.2 mg by mouth two times a day. Yes citalopram (CELEXA) 40 mg tablet Take 40 mg by mouth once daily. Yes traZODone (DESYREL) 150 mg tablet Take 1 tablet by mouth daily at bedtime. Patient not taking: Reported on 05/02/2025 tamsulosin (FLOMAX) 0.4 mg Take 1 capsule by mouth once daily. Patient not taking: Reported on 03/27/2025 iv contrast (will be provided with radiology test) CTA Head/Neck W No IV access, insert saline lock prior to the sedation, infusion, injection for imaging exam. Discontinue saline lock post exam. If Pt. has a central line or IVAD, may access for administration according to line specific nursing protocol. Once exam is complete flush line and de-access according to line specific nursing protocol in the CT contrast administration guidelines link. No medication comments found. ALLERGIES Allergen Reactions Gabapentin Mental Status Change, GI Upset, Vomiting Hydrocodone GI Upset Tramadol GI Upset Vicodin [Hydrocodon* GI Upset Objective PHYSICAL EXAM: General: alert and oriented and healthy appearance. Pertinent negatives noted - not distressed. Skin: normal color, no rash or lesions. HEENT: EOM intact, pupils equal round and pupils reactive to light. Pertinent negatives noted - no carotid bruit. Cardiovascular: regular rate and rhythm, normal S1 and S2, no rub, murmurs, or gallop. Respiratory: normal breath sounds, no wheezes or crackles. No chest wall deformity or tenderness. Abdomen: bowel sounds present and soft. Pertinent negatives noted - not tender. Extremities: no deformity, no edema or tenderness, no joint swelling or clubbing. Neurological: normal cognition and motor skills. Positive for abnormal gait and limb weakness. Limb weakness located left LE and right LE. PAIN ASSESSMENT: Pain Pain Level: 7 Pain Location: Back (radiates down bilateral legs) Description: Aching, Radiating Duration Units: Years Frequency: Continuous VITALS: BP 113/67 Pulse 68 Temp (Src) 97.8 (Temporal) Resp 20 Ht 5' 8.5 (1.74m) Wt 201 lb 4.5 oz (91.3kg) SpO2 97% BMI 30.16 kg/(m2). Diagnostic tests reviewed for today's visit: Lab Value Units Date High Low HB 16.0 g/dL 01/23/2025 17.0 13.0 HCT 47.9 % 01/23/2025 51.0 39.0 WBC 10.60 k/uL 01/23/2025 11.00 3.70 PLT 300 k/uL 01/23/2025 400 150 NA 138 mmol/L 01/23/2025 144 136 K 4.3 mmol/L 01/23/2025 5.1 3.7 GLUC 121 mg/dL 01/23/2025 99 74 BUN 25 mg/dL 01/23/2025 24 9 CREAT 1.31 mg/dL 01/23/2025 1.22 0.73 PTSEC No results within date range. INR No results within date range. APTT No results within date range. ALT <5 U/L 01/23/2025 54 10 AST 16 U/L 01/23/2025 40 14 TBILI 0.5 mg/dL 01/23/2025 1.3 0.2 TSH No results within date range. Lab Value Units Date High Low HCGQT No results within date range. UHCG No results within date range. HCG, BODY* No results within date range. Lab Value Units Date High Low ABORHD No results within date range. ABSCREEN No results within date range. Hemoglobin A1C (%) Date Value 01/23/2025 6.4 08/08/2024 5.6 02/26/2024 6.4 Recent Results (from the past 8760 hours) ECG COMPLETE Collection Time: 07/09/24 6:52 AM Result Value Ventricular Rate 81 Atrial Rate 81 P-R Interval 174 QRS Duration 134 QT Interval 406 QTC Calculation (Bazett) 471 Calculated P [employer] 25 Calculated R [employer] -46 Calculated T [employer] 95 Impression NORMAL SINUS RHYTHM LEFT AXIS DEVIATION LEFT BUNDLE BRANCH BLOCK MINIMAL VOLTAGE CRITERIA FOR LVH, MAY BE NORMAL VARIANT ( Chilo product ) CANNOT RULE OUT ANTERIOR INFARCT (CITED ON OR BEFORE 08-Jul-2024) ABNORMAL ECG WHEN COMPARED WITH ECG OF 08-Jul-2024 22:59, NO SIGNIFICANT CHANGE WAS FOUND Confirmed by MD PEDERSON VINAYAK ([id number]) on 07/12/2024 8:57:41 PM Recent Results (from the past 87545 hours) ECHO Collection Time: 04/21/24 2:20 PM Impression CONCLUSIONS: - Exam indication: Pre-op; CHF - The left ventricle is normal in size. There is mild concentric left ventricular hypertrophy. Left ventricular systolic function is normal. EF = 54 ? 5% (2D biplane) Grade I left ventricular diastolic dysfunction. - The right ventricle is normal in size. Right ventricular systolic function is normal. - There is mild aortic valve sclerosis. - The patient has not had a prior CC echocardiographic exam for comparison. * * * Final * * * Instructions Given to Patient: Instructions located in the after visit summary. Patient given verbal and written preop instructions and voices comprehension and compliance. SIGNATURE: Caroline Skinner APRN.CNP PATIENT NAME: Nick Arora DATE: May 02, 2025 TIME: 2:30 PM PAGER/CONTACT #: [email or web address] Observed: 05/02/2025 1:57 PM Status: COMPLETED Source: [facility] HNO ID: [id number] Author: CORETTA MONREAL RN Service: ? Author Type: Registered Nurse Type: Progress Notes Filed: 05/02/2025 13:58 Note Text: Neuro SPINE CARE COORDINATION PRE-OP VISIT Met with patient AND family in clinic for pre op education. Given both written and verbal instructions re : Skin prep, wound care, pain management and post op restrictions. Provided to patient: [facility] Surgery Guide, skin prep supplies, Spine Surgery Pre/post op education packet. Yes Reviewed with patient to report to desk for surgery ? Yes. Reviewed with the patient to call the day before to get surgery report time? Yes. Patient aware eat nothing after midnight prior to surgery, clear liquids only until 2 hours before report time. Yes. Patient aware surgery will be OUTPATIENT: extended recovery. Discussed care post discharge : Home Health Care ( PT-OT-nurse) and acute rehab. Does patient have transportation to and from surgery ? Yes. Falls Education provided ? Yes Nasal swab obtained ? No. Patient instructed in mupirocin treatment : Prescription called to pharmacy. Questions answered and patient did voice(s) understanding via teach back. Physical Therapy : YES Additional Comments : Post -op Support packet provided Coretta Monreal RN CNOV Observed: 05/02/2025 1:00 PM Status: COMPLETED Source: [facility] Office Visit (NSFRVW) NICK ARORA ([id number]) 1960 M Date Time Provider Department 05/02/25 1:00 PM [facility] During your visit today, we recorded the following information about you: Pulse Blood pressure Weight Height 70/minute 119/79 90 kg 1.829 m Valorie Ayala MD 05/02/2025 1:47 PM Signed SPINE SURGERY NEW PATIENT PCP: Aga Benitez MD REFERRING PROVIDER: Tammi Garcia [id number] [facility] [address] Subjective Nick Arora is a pleasant 65-year-old male with a history of Parkinson's disease and Alzheimer's, presenting for evaluation of chronic low back pain and right leg pain. He is accompanied by his daughter, son-in-law and grand kid. Daughter provides additional history. Nick reports persistent low back pain for the past 10-12 years, following a fall from a tree that resulted in a sacral fracture. He describes the pain as constant and located in the lower back. He has tried various creams without relief and states that nothing alleviates the pain. The pain worsens with activity, significantly limiting his ability to engage in gardening or work in the garage. He notes that leaning on a shopping cart provides some relief, allowing him to walk better and longer distances. He also experiences shooting pain in the right leg, which extends from the back to the foot. He does not endorse pain in the left leg. He reports occasional buckling of knee but does not endorse falling. No history of tingling, numbness, or burning in the legs. He does not report any bowel or bladder issues. Nick has a history of back problems since age 16 and has previously sought transitions rn care coordinator, which provided temporary relief. He has not tried Lyrica but had severe reactions to gabapentin. He currently manages pain with Tylenol Arthritis. He received spinal injections a couple of years ago without significant improvement. Nick has a history of Parkinson's disease, for which he takes Sinemet (carbidopa-levodopa) 2 pills, 3 times a day. He also has a recent diagnosis of Alzheimer's disease and is taking Aricept. He has lost approximately 30 pounds recently. He takes aspirin 81 mg daily Questionnaire Generated HPI Possible Spine-Related Symptoms: Pain;Weakness;Difficulty with balance Symptom Onset:1 to 5 years Symptom Location(s): Symptom Laterality: Both sides are about the same Aggravating Factors: Sitting;Standing;Walking;Lying down;Bending forward/backward;Changing position;Pulling/pushing Alleviating Factors: None Non-Surgical Therapies Tried: Physical Therapy;Chiropractor;Epidural steroid injections;NSAIDS;Muscle relaxers Prior Spine Surgery(s): They report no history of prior spine surgery. Image annotated by patient with symptom distribution: Details on Prior Non-Surgical Therapies Attempted: Physical therapy: Approximate number of sessions: 1-2 Approximate last session date: Within the last 3 months Valorie Rowley MD , have reviewed the above patient-reported information and have reviewed it with the patient. Major Risk Factors Notable surgical risk factors: Smoking status: Never BMI:27.12 kg/m2. Current Anticoagulation/Antiplatelet Use: Aspirin Obesity normal BMI: 27.12 kg/m2 High: BMI > 40 Moderate: BMI 30-40 Normal: BMI < 30 Diabetes normal Last HbA1C: 6.4 - 01/23/2025 High: A1C > 8 Moderate: A1C 7-8 Normal: A1C < 7 Hx of DVT / PE normal High: dx of DVT / PE Normal: no dx of DVT / PE Smoking normal Last Status: Never High: Current smoker Normal: Non smoker Narcotics Use normal High:NarxCare >=300 Moderate: 100-299 Normal: 0-99 Depression Moderate Risk High: PHQ-9 >14 Moderate: PHQ-9 5-14 Normal: PHQ-9 < 5 Data from [facility] Epic on prior therapies: Last PT session: No date on file in last 365 days Last Epidural Steroid Injection: No epidural injection on file for last 365 days Last Spine Surgery: No history of prior spine surgery in search of available [facility] records PAST MEDICAL HISTORY Diagnosis Date Anxiety and depression BPH (benign prostatic hyperplasia) Congestive heart failure (HCC) Diabetes (HCC) Dyslipidemia Hypertension Kidney stone Spinal stenosis TIA (transient ischemic attack) Tremor PAST SURGICAL HISTORY Procedure Laterality Date TOTAL KNEE REPLACEMENT Left 06/2024 Current Outpatient Medications on File Prior to Visit Medication Sig trospium (SANCTURA) 20 mg tablet Take 1 tablet by mouth two times a day. QUEtiapine (SEROQUEL) 25 mg tablet Take 1 tablet by mouth daily at bedtime. traZODone (DESYREL) 150 mg tablet Take 1 tablet by mouth daily at bedtime. donepezil (ARICEPT) 10 mg tablet After on trazodone for 2 weeks, start 1/2 pill once a day for 1 month then increase to a full pill once a day thereafter. atorvastatin (LIPITOR) 20 mg tablet TAKE 1 TABLET BY MOUTH ONCE DAILY AT BEDTIME dapagliflozin propanediol (FARXIGA) 10 mg tablet Take 1 tablet by mouth daily with breakfast. carbidopa-levodopa (SINEMET 25-100) 25-100 mg per tablet Take 2 tablets by mouth three times a day. acetaminophen (TYLENOL) 500 mg tablet Take 2 tablets by mouth every 8 hours. tamsulosin (FLOMAX) 0.4 mg Take 1 capsule by mouth once daily. (Patient not taking: Reported on 03/27/2025) pantoprazole DR (PROTONIX) 40 mg tablet Take 1 tablet by mouth two times a day before meals at 6 am and 4 pm. senna-docusate (SENNA-S) 8.6-50 mg per tablet Take 1 tablet by mouth two times a day. lisinopril (ZESTRIL) 10 mg tablet Take 1 tablet by mouth once daily. polyethylene glycol 3350 17 gram packet Take 1 Packet by mouth two times a day. Dissolve dose in 4 - 8 ounces of liquid and take as directed. spironolactone (ALDACTONE) 25 mg tablet Take 1 tablet by mouth once daily. aspirin 81 mg cap Take 81 mg by mouth once daily. iv contrast (will be provided with radiology test) CTA Head/Neck W No IV access, insert saline lock prior to the sedation, infusion, injection for imaging exam. Discontinue saline lock post exam. If Pt. has a central line or IVAD, may access for administration according to line specific nursing protocol. Once exam is complete flush line and de-access according to line specific nursing protocol in the CT contrast administration guidelines link. cloNIDine HCl (CATAPRES) 0.2 mg tablet Take 0.2 mg by mouth two times a day. citalopram (CELEXA) 40 mg tablet Take 40 mg by mouth once daily. No current facility-administered medications on file prior to visit. Objective PHYSICAL EXAM There were no vitals taken for this visit. GENERAL APPEARANCE: Well nourished, well developed, and no apparent distress. NEURO PSYCH: Patient oriented to person, place, and time. Mood pleasant. Benign affect. CARDIOVASCULAR: Palpable pulses. No edema noted. No varicosities. SKIN: Head, neck, trunk, and extremities dry, intact and without lesions. LYMPHATICS: No palpable nodes in cervical or axillae areas. Groin exam deferred. MUSCULOSKELETAL VISUAL INSPECTION CERVICAL: WNL THORACIC: WNL LUMBAR: WNL PALPATION: SPINOUS PROCESS: No pain. PARASPINALS: No pain. MUSCLE BULK: Normal and symmetrical in the upper AND lower extremities. MUSCLE TONE: Normal. MOTOR: 5/5 in all muscle groups. SENSORY: Normal sensory exam GAIT: Antalgic. REFLEXES: +2 to bilateral U/L extremities. PROPRIOCEPTION: Normal. LONG TRACT SIGNS: No clonus. No Hoffmans. STRAIGHT LEG TEST: Ipsilateral: Negative. Contralateral: Negative. L'HERMITTES SIGN: Not tested. SPURLING'S TEST: Not tested. NEURO TESTS: Cranial Nerves: Normal mood and affect. CNII-XII grossly intact. DATA REVIEW [facility] records independently reviewed Images independently reviewed with the patient DATE OF EXAM: Mar 27 2025 4:15PM [id number] - MRI LUMBAR SPINE WO IVCON / PROCEDURE REASON: multiple diagnoses * * * * Physician Interpretation * * * * EXAMINATION: MRI LUMBAR SPINE WO IVCON CLINICAL HISTORY: Chronic midline low back and bilateral lower extremity pain with neurogenic claudication, lower extremity weakness and falls. TECHNIQUE: Routine lumbosacral spine MR protocol without gadolinium. MQ: [id number] COMPARISON: 07/13/2023 RESULT: Counting reference: Lumbosacral junction. For the purposes of this report, L4-5 is considered the level of the iliac crest and assume there are 5 lumbar-type vertebrae. Anatomic variant: None. Localizer images: Well-defined T2 hyperintense foci are noted in the liver and left kidney on the svp of digital images, likely representing cysts. Alignment: Again noted is straightening of the normal lumbar lordosis. Severe disc space narrowing is again noted at L4-5 and L5-S1, moderate disc space narrowing is noted at T11-12 and T12-L1, moderate disc space narrowing is noted at L3-4 and mild disc space narrowing is noted at L2-3. Bone marrow signal/fracture: No evidence of pathologic marrow infiltration. There is mild wedge deformity of the T12 vertebral body with normal signal intensity characteristics of the marrow suggesting a subtle remote benign compression fracture. Conus: The conus is within normal limits of signal intensity and morphology. Paraspinal soft tissues: Again noted is prominent epidural fat contributing to relative narrowing of the thecal sac at L2-3 through L4-5. Lower thoracic spine: Visualized lower thoracic canal and foramina are patent. L1-L2: Right lateral osteophyte formation in the foraminal and extraforaminal zones that may impinge on the right L1 nerve root sleeve laterally. The canal and left neural foramen are patent. No significant change. L2-L3: Minimal disc bulging and mild facet degenerative change without significant canal stenosis. Mild right bony foraminal stenosis. No significant change. L3-L4: Mild disc osteophyte complex, facet degenerative change and developmentally short pedicles cause severe canal stenosis, right subarticular recess stenosis, and mild to moderate bilateral foraminal stenosis. No significant change. L4-L5: Mild disc osteophyte complex and facet degenerative change without significant canal stenosis. Facet degenerative change, rostrocaudal facet subluxation and developmentally short pedicles cause moderate right and moderate to severe left foraminal stenosis. No significant change. L5-S1: Mild disc osteophyte complex abutting the exiting S1 nerve root sleeves. No impact on the thecal sac. Facet degenerative change, rostrocaudal facet subluxation and developmentally short pedicles cause moderate left and moderate to severe right foraminal stenosis. No significant change. Sacrum and iliac wings: Partial fusion of the left SI joint. Mild degenerative changes in the visualized right SI joint. Assessment/Plan (M48.062) Spinal stenosis of lumbar region with neurogenic claudication Nick Arora is a pleasant 65-year-old male with a history of Parkinson's disease and Alzheimer's, presenting for evaluation of chronic low back pain and right leg pain. He is accompanied by his daughter, son-in-law and grand kid. Daughter provides additional history. Nick reports persistent low back pain for the past 10-12 years, following a fall from a tree that resulted in a sacral fracture. He describes the pain as constant and located in the lower back. He has tried various creams without relief and states that nothing alleviates the pain. The pain worsens with activity, significantly limiting his ability to engage in gardening or work in the garage. He notes that leaning on a shopping cart provides some relief, allowing him to walk better and longer distances. He also experiences shooting pain in the right leg, which extends from the back to the foot. He does not endorse pain in the left leg. He reports occasional buckling of knee but does not endorse falling. No history of tingling, numbness, or burning in the legs. He does not report any bowel or bladder issues. Nick has a history of back problems since age 16 and has previously sought transitions rn care coordinator, which provided temporary relief. He has not tried Lyrica but had severe reactions to gabapentin. He currently manages pain with Tylenol Arthritis. He received spinal injections a couple of years ago without significant improvement. Nick has a history of Parkinson's disease, for which he takes Sinemet (carbidopa-levodopa) 2 pills, 3 times a day. He also has a recent diagnosis of Alzheimer's disease and is taking Aricept. He has lost approximately 30 pounds recently. He takes aspirin 81 mg daily Neurological examination showed antalgic gait. Left calf atrophy approximately 3.5 cm smaller than right calf. Scar over left knee. SLR is positive. No focal motor weakness. No sensory deficit X-ray lumbar spine showed degenerative changes at L4-5, L5-S1 levels with a decreased disc height. MRI lumbar spine showed moderate to severe lumbar canal stenosis at L3-4 level with the bilateral synovial cyst, right side more than left side. Moderate to severe lumbar canal stenosis at L4-5 level with bilateral foraminal stenosis. Epidural lipomatosis at L3-4, L4-5 level. Discussed clinical, imaging finding. Showed images and explained detail. Some of his clinical symptoms is a combination of multiple medical comorbidities which includes Parkinson's and memory disturbance as well as spinal stenosis with neurogenic claudication. Discussed treatment option for lumbar canal stenosis with neurogenic claudication which includes continued conservative treatment with back exercise, physical therapy, pain medication, Lyrica 50 mg twice daily, bilateral L4-5 transferral epidural injection and surgical intervention. Considering failed conservative treatment, his daily activity is limited due to pain, I think surgery is also a good option. Discussed in detail about L3, L4 laminectomy, decompression of L3-4, L4-5 lumbar canal stenosis and decompression of synovial cyst with bilateral root foraminotomy surgical procedure, its advantages and risks. Risks of surgery includes infection, bleeding, hematoma formation, nonhealing of wound, wound dehiscence, superficial wound infection, CSF leak, nerve damage, nonimprovement of her pain, nonimprovement of numbness, nonimprovement of weakness, nonimprovement of walking difficulty, bowel/bladder dysfunction, retention of urine, knee/foot weakness, spinal instability, spondylolisthesis, requirement of further surgery/fusion in the future, pneumonia, DVT, heart attack, pulmonary embolism and . Also discussed the realistic outcome of surgical intervention. Some of his clinical symptom is a combination of multiple other medical problems. Some of his back pain may be related to Parkinson's with the walking difficulty. His back pain may not completely improve even after surgery. He also has some difficulty in functioning every day his activity due to memory disturbance. If his everyday function is not significantly improving with the lumbar surgery, he may require follow-up with neurology for further management. He also has severe lumbar spondylosis at L4-5, L5-S1 levels. If you develop recurrent stenosis or recurrence of pain, he may require fusion surgery in the future. All their questions were answered Nick Arora is clinically indicated and wishes to pursue 3, L4 laminectomy, decompression of L3-4, L4-5 lumbar canal stenosis and decompression of synovial cyst with bilateral root foraminotomy The risks, benefits, and anticipated outcomes of the procedure/treatment/test, the alternatives to the procedure/treatment/test and their risks and benefits, and the roles and tasks of the personnel to be involved were discussed with the patient or the patient?s personal retail sales representative. The patient has elected to schedule surgery at this time or intends to call the office with a surgical date. Shared decision making occurred while obtaining informed consent. The majority of the visit was spent counseling and/or coordinating care for the patient. The patient was counseled regarding lower back pain, right leg pain, right leg weakness, knee buckling, lumbar canal stenosis, epidural lipomatosis, lumbar laminectomy, lumbar foraminotomy, memory disturbance, Parkinson's, back pain, outcome of surgical intervention, risks of surgery, epidural injection, membrane stabilizers. Total face to face time was 45 minutes. Valorie Ayala MD 05/02/2025 1:52 PM Signed Addended by: VALORIE AYALA on: 05/02/2025 01:52 PM Modules accepted: Coretta Almazan RN 05/02/2025 1:58 PM Signed Neuro SPINE CARE COORDINATION PRE-OP VISIT Met with patient AND family in clinic for pre op education. Given both written and verbal instructions re : Skin prep, wound care, pain management and post op restrictions. Provided to patient: [facility] Surgery Guide, skin prep supplies, Spine Surgery Pre/post op education packet. Yes Reviewed with patient to report to desk for surgery ? Yes. Reviewed with the patient to call the day before to get surgery report time? Yes. Patient aware eat nothing after midnight prior to surgery, clear liquids only until 2 hours before report time. Yes. Patient aware surgery will be OUTPATIENT: extended recovery. Discussed care post discharge : Home Health Care ( PT-OT-nurse) and acute rehab. Does patient have transportation to and from surgery ? Yes. Falls Education provided ? Yes Nasal swab obtained ? No. Patient instructed in mupirocin treatment : Prescription called to pharmacy. Questions answered and patient did voice(s) understanding via teach back. Physical Therapy : YES Additional Comments : Post -op Support packet provided Coretta Monreal RN Referring Provider: TAMMI GARCIA [[id number]] Allergies As of Date: 05/02/2025 Noted Allergy Reaction ACETAMINOPHEN 04/23/2023 8 - GI Upset HYDROCODONE 04/23/2023 8 - GI Upset TRAMADOL 04/23/2023 8 - GI Upset VICODIN (HYDROCODONE-ACETAMINOPHE*12/08/2023 8 - GI Upset Date Reviewed: 05/02/2025 Reviewed by: Irma Villeda MA - Fully Assessed Reason for Visit: New Patient [172] Visit Diagnosis:Spinal stenosis of lumbar region with neurogenic claudication [M48.062] Order(s):CONSULT TO SPINE SURGERY [[id number]] Order #: [id number]: 1 REFER TO [facility] - PREOPERATIVE OPTIMIZATION [[id number]] Order #: [id number]: 1 FUTURE Prescriptions as of 05/02/2025 - trospium (SANCTURA) 20 mg tablet Take 1 tablet by mouth two times a day. - QUEtiapine (SEROQUEL) 25 mg tablet Take 1 tablet by mouth daily at bedtime. - traZODone (DESYREL) 150 mg tablet Take 1 tablet by mouth daily at bedtime. - donepezil (ARICEPT) 10 mg tablet After on trazodone for 2 weeks, start 1/2 pill once a day for 1 month then increase to a full pill once a day thereafter. - atorvastatin (LIPITOR) 20 mg tablet TAKE 1 TABLET BY MOUTH ONCE DAILY AT BEDTIME - dapagliflozin propanediol (FARXIGA) 10 mg tablet Take 1 tablet by mouth daily with breakfast. - carbidopa-levodopa (SINEMET 25-100) 25-100 mg per tablet Take 2 tablets by mouth three times a day. - acetaminophen (TYLENOL) 500 mg tablet Take 2 tablets by mouth every 8 hours. - tamsulosin (FLOMAX) 0.4 mg Take 1 capsule by mouth once daily. - pantoprazole DR (PROTONIX) 40 mg tablet Take 1 tablet by mouth two times a day before meals at 6 am and 4 pm. - senna-docusate (SENNA-S) 8.6-50 mg per tablet Take 1 tablet by mouth two times a day. - lisinopril (ZESTRIL) 10 mg tablet Take 1 tablet by mouth once daily. - polyethylene glycol 3350 17 gram packet Take 1 Packet by mouth two times a day. Dissolve dose in 4 - 8 ounces of liquid and take as directed. - spironolactone (ALDACTONE) 25 mg tablet Take 1 tablet by mouth once daily. - aspirin 81 mg cap Take 81 mg by mouth once daily. - iv contrast (will be provided with radiology test) CTA Head/Neck W No IV access, insert saline lock prior to the sedation, infusion, injection for imaging exam. Discontinue saline lock post exam. If Pt. has a central line or IVAD, may access for administration according to line specific nursing protocol. Once exam is complete flush line and de-access according to line specific nursing protocol in the CT contrast administration guidelines link. - cloNIDine HCl (CATAPRES) 0.2 mg tablet Take 0.2 mg by mouth two times a day. - citalopram (CELEXA) 40 mg tablet Take 40 mg by mouth once daily. 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/18/2024 Chronic bilateral low back pain with bilateral *04/18/2024 Parkinson's disease with dyskinesia (HCC) [G20.*04/18/2024 Aftercare [Z51.89] 06/29/2024 Status post total left knee replacement [Z96.65*06/29/2024 YUMIKO (acute kidney injury) (HCC) [N17.9] 06/30/2024 07/05/2024 Acute urinary retention [R33.8] 06/30/2024 07/13/2024 Malnutrition of mild degree (HCC) [E44.1] 07/01/2024 07/13/2024 Nausea and vomiting [R11.2] 07/03/2024 07/13/2024 UTI (urinary tract infection) [N39.0] 07/03/2024 07/05/2024 UTI (urinary tract infection) [N39.0] 07/06/2024 07/13/2024 YUMIKO (acute kidney injury) (HCC) [N17.9] 07/06/2024 07/13/2024 Hypotension [I95.9] 07/06/2024 07/13/2024 Level of Service: OFFICE/OP CONSLTJ NEW/EST PT MOD MDM 40 MINUTES [94494] Additional E/M codes: VISIT CPLX INHERENT EANDM ASSOC WITH MED * Annotated image of last updated by UserCarlos Alberto on 05/02/2025 12:28 PM Letter Text Encounter Status:Closed by VALORIE AYALA on 05/02/25 PROGRESS Observed: 05/02/2025 12:38 PM Status: COMPLETED Source: [facility] HNO ID: [id number] Author: VALORIE AYALA MD Service: ? Author Type: Physician Type: Progress Notes Filed: 05/02/2025 13:47 Note Text: SPINE SURGERY NEW PATIENT PCP: Aga Benitez MD REFERRING PROVIDER: Tammi Garcia [id number] [facility] [address] Subjective Nick Arora is a pleasant 65-year-old male with a history of Parkinson's disease and Alzheimer's, presenting for evaluation of chronic low back pain and right leg pain. He is accompanied by his daughter, son-in-law and grand kid. Daughter provides additional history. Nick reports persistent low back pain for the past 10-12 years, following a fall from a tree that resulted in a sacral fracture. He describes the pain as constant and located in the lower back. He has tried various creams without relief and states that nothing alleviates the pain. The pain worsens with activity, significantly limiting his ability to engage in gardening or work in the garage. He notes that leaning on a shopping cart provides some relief, allowing him to walk better and longer distances. He also experiences shooting pain in the right leg, which extends from the back to the foot. He does not endorse pain in the left leg. He reports occasional buckling of knee but does not endorse falling. No history of tingling, numbness, or burning in the legs. He does not report any bowel or bladder issues. Nick has a history of back problems since age 16 and has previously sought transitions rn care coordinator, which provided temporary relief. He has not tried Lyrica but had severe reactions to gabapentin. He currently manages pain with Tylenol Arthritis. He received spinal injections a couple of years ago without significant improvement. Nick has a history of Parkinson's disease, for which he takes Sinemet (carbidopa-levodopa) 2 pills, 3 times a day. He also has a recent diagnosis of Alzheimer's disease and is taking Aricept. He has lost approximately 30 pounds recently. He takes aspirin 81 mg daily Questionnaire Generated HPI Possible Spine-Related Symptoms: Pain;Weakness;Difficulty with balance Symptom Onset:1 to 5 years Symptom Location(s): Symptom Laterality: Both sides are about the same Aggravating Factors: Sitting;Standing;Walking;Lying down;Bending forward/backward;Changing position;Pulling/pushing Alleviating Factors: None Non-Surgical Therapies Tried: Physical Therapy;Chiropractor;Epidural steroid injections;NSAIDS;Muscle relaxers Prior Spine Surgery(s): They report no history of prior spine surgery. Image annotated by patient with symptom distribution: Details on Prior Non-Surgical Therapies Attempted: Physical therapy: Approximate number of sessions: 1-2 Approximate last session date: Within the last 3 months Valorie Rowley MD , have reviewed the above patient-reported information and have reviewed it with the patient. Major Risk Factors Notable surgical risk factors: Smoking status: Never BMI:27.12 kg/m2. Current Anticoagulation/Antiplatelet Use: Aspirin Obesity normal BMI: 27.12 kg/m2 High: BMI > 40 Moderate: BMI 30-40 Normal: BMI < 30 Diabetes normal Last HbA1C: 6.4 - 01/23/2025 High: A1C > 8 Moderate: A1C 7-8 Normal: A1C < 7 Hx of DVT / PE normal High: dx of DVT / PE Normal: no dx of DVT / PE Smoking normal Last Status: Never High: Current smoker Normal: Non smoker Narcotics Use normal High:NarxCare >=300 Moderate: 100-299 Normal: 0-99 Depression Moderate Risk High: PHQ-9 >14 Moderate: PHQ-9 5-14 Normal: PHQ-9 < 5 Data from [facility] Epic on prior therapies: Last PT session: No date on file in last 365 days Last Epidural Steroid Injection: No epidural injection on file for last 365 days Last Spine Surgery: No history of prior spine surgery in search of available [facility] records PAST MEDICAL HISTORY Diagnosis Date Anxiety and depression BPH (benign prostatic hyperplasia) Congestive heart failure (HCC) Diabetes (HCC) Dyslipidemia Hypertension Kidney stone Spinal stenosis TIA (transient ischemic attack) Tremor PAST SURGICAL HISTORY Procedure Laterality Date TOTAL KNEE REPLACEMENT Left 06/2024 Current Outpatient Medications on File Prior to Visit Medication Sig trospium (SANCTURA) 20 mg tablet Take 1 tablet by mouth two times a day. QUEtiapine (SEROQUEL) 25 mg tablet Take 1 tablet by mouth daily at bedtime. traZODone (DESYREL) 150 mg tablet Take 1 tablet by mouth daily at bedtime. donepezil (ARICEPT) 10 mg tablet After on trazodone for 2 weeks, start 1/2 pill once a day for 1 month then increase to a full pill once a day thereafter. atorvastatin (LIPITOR) 20 mg tablet TAKE 1 TABLET BY MOUTH ONCE DAILY AT BEDTIME dapagliflozin propanediol (FARXIGA) 10 mg tablet Take 1 tablet by mouth daily with breakfast. carbidopa-levodopa (SINEMET 25-100) 25-100 mg per tablet Take 2 tablets by mouth three times a day. acetaminophen (TYLENOL) 500 mg tablet Take 2 tablets by mouth every 8 hours. tamsulosin (FLOMAX) 0.4 mg Take 1 capsule by mouth once daily. (Patient not taking: Reported on 03/27/2025) pantoprazole DR (PROTONIX) 40 mg tablet Take 1 tablet by mouth two times a day before meals at 6 am and 4 pm. senna-docusate (SENNA-S) 8.6-50 mg per tablet Take 1 tablet by mouth two times a day. lisinopril (ZESTRIL) 10 mg tablet Take 1 tablet by mouth once daily. polyethylene glycol 3350 17 gram packet Take 1 Packet by mouth two times a day. Dissolve dose in 4 - 8 ounces of liquid and take as directed. spironolactone (ALDACTONE) 25 mg tablet Take 1 tablet by mouth once daily. aspirin 81 mg cap Take 81 mg by mouth once daily. iv contrast (will be provided with radiology test) CTA Head/Neck W No IV access, insert saline lock prior to the sedation, infusion, injection for imaging exam. Discontinue saline lock post exam. If Pt. has a central line or IVAD, may access for administration according to line specific nursing protocol. Once exam is complete flush line and de-access according to line specific nursing protocol in the CT contrast administration guidelines link. cloNIDine HCl (CATAPRES) 0.2 mg tablet Take 0.2 mg by mouth two times a day. citalopram (CELEXA) 40 mg tablet Take 40 mg by mouth once daily. No current facility-administered medications on file prior to visit. Objective PHYSICAL EXAM There were no vitals taken for this visit. GENERAL APPEARANCE: Well nourished, well developed, and no apparent distress. NEURO PSYCH: Patient oriented to person, place, and time. Mood pleasant. Benign affect. CARDIOVASCULAR: Palpable pulses. No edema noted. No varicosities. SKIN: Head, neck, trunk, and extremities dry, intact and without lesions. LYMPHATICS: No palpable nodes in cervical or axillae areas. Groin exam deferred. MUSCULOSKELETAL VISUAL INSPECTION CERVICAL: WNL THORACIC: WNL LUMBAR: WNL PALPATION: SPINOUS PROCESS: No pain. PARASPINALS: No pain. MUSCLE BULK: Normal and symmetrical in the upper AND lower extremities. MUSCLE TONE: Normal. MOTOR: 5/5 in all muscle groups. SENSORY: Normal sensory exam GAIT: Antalgic. REFLEXES: +2 to bilateral U/L extremities. PROPRIOCEPTION: Normal. LONG TRACT SIGNS: No clonus. No Hoffmans. STRAIGHT LEG TEST: Ipsilateral: Negative. Contralateral: Negative. L'HERMITTES SIGN: Not tested. SPURLING'S TEST: Not tested. NEURO TESTS: Cranial Nerves: Normal mood and affect. CNII-XII grossly intact. DATA REVIEW [facility] records independently reviewed Images independently reviewed with the patient DATE OF EXAM: Mar 27 2025 4:15PM [facility] 0303 - MRI LUMBAR SPINE WO IVCON / PROCEDURE REASON: multiple diagnoses * * * * Physician Interpretation * * * * EXAMINATION: MRI LUMBAR SPINE WO IVCON CLINICAL HISTORY: Chronic midline low back and bilateral lower extremity pain with neurogenic claudication, lower extremity weakness and falls. TECHNIQUE: Routine lumbosacral spine MR protocol without gadolinium. MQ: [id number] COMPARISON: 07/13/2023 RESULT: Counting reference: Lumbosacral junction. For the purposes of this report, L4-5 is considered the level of the iliac crest and assume there are 5 lumbar-type vertebrae. Anatomic variant: None. Localizer images: Well-defined T2 hyperintense foci are noted in the liver and left kidney on the svp of digital images, likely representing cysts. Alignment: Again noted is straightening of the normal lumbar lordosis. Severe disc space narrowing is again noted at L4-5 and L5-S1, moderate disc space narrowing is noted at T11-12 and T12-L1, moderate disc space narrowing is noted at L3-4 and mild disc space narrowing is noted at L2-3. Bone marrow signal/fracture: No evidence of pathologic marrow infiltration. There is mild wedge deformity of the T12 vertebral body with normal signal intensity characteristics of the marrow suggesting a subtle remote benign compression fracture. Conus: The conus is within normal limits of signal intensity and morphology. Paraspinal soft tissues: Again noted is prominent epidural fat contributing to relative narrowing of the thecal sac at L2-3 through L4-5. Lower thoracic spine: Visualized lower thoracic canal and foramina are patent. L1-L2: Right lateral osteophyte formation in the foraminal and extraforaminal zones that may impinge on the right L1 nerve root sleeve laterally. The canal and left neural foramen are patent. No significant change. L2-L3: Minimal disc bulging and mild facet degenerative change without significant canal stenosis. Mild right bony foraminal stenosis. No significant change. L3-L4: Mild disc osteophyte complex, facet degenerative change and developmentally short pedicles cause severe canal stenosis, right subarticular recess stenosis, and mild to moderate bilateral foraminal stenosis. No significant change. L4-L5: Mild disc osteophyte complex and facet degenerative change without significant canal stenosis. Facet degenerative change, rostrocaudal facet subluxation and developmentally short pedicles cause moderate right and moderate to severe left foraminal stenosis. No significant change. L5-S1: Mild disc osteophyte complex abutting the exiting S1 nerve root sleeves. No impact on the thecal sac. Facet degenerative change, rostrocaudal facet subluxation and developmentally short pedicles cause moderate left and moderate to severe right foraminal stenosis. No significant change. Sacrum and iliac wings: Partial fusion of the left SI joint. Mild degenerative changes in the visualized right SI joint. Assessment/Plan (M48.062) Spinal stenosis of lumbar region with neurogenic claudication Nick Arora is a pleasant 65-year-old male with a history of Parkinson's disease and Alzheimer's, presenting for evaluation of chronic low back pain and right leg pain. He is accompanied by his daughter, son-in-law and grand kid. Daughter provides additional history. Nick reports persistent low back pain for the past 10-12 years, following a fall from a tree that resulted in a sacral fracture. He describes the pain as constant and located in the lower back. He has tried various creams without relief and states that nothing alleviates the pain. The pain worsens with activity, significantly limiting his ability to engage in gardening or work in the garage. He notes that leaning on a shopping cart provides some relief, allowing him to walk better and longer distances. He also experiences shooting pain in the right leg, which extends from the back to the foot. He does not endorse pain in the left leg. He reports occasional buckling of knee but does not endorse falling. No history of tingling, numbness, or burning in the legs. He does not report any bowel or bladder issues. Nick has a history of back problems since age 16 and has previously sought transitions rn care coordinator, which provided temporary relief. He has not tried Lyrica but had severe reactions to gabapentin. He currently manages pain with Tylenol Arthritis. He received spinal injections a couple of years ago without significant improvement. Nick has a history of Parkinson's disease, for which he takes Sinemet (carbidopa-levodopa) 2 pills, 3 times a day. He also has a recent diagnosis of Alzheimer's disease and is taking Aricept. He has lost approximately 30 pounds recently. He takes aspirin 81 mg daily Neurological examination showed antalgic gait. Left calf atrophy approximately 3.5 cm smaller than right calf. Scar over left knee. SLR is positive. No focal motor weakness. No sensory deficit X-ray lumbar spine showed degenerative changes at L4-5, L5-S1 levels with a decreased disc height. MRI lumbar spine showed moderate to severe lumbar canal stenosis at L3-4 level with the bilateral synovial cyst, right side more than left side. Moderate to severe lumbar canal stenosis at L4-5 level with bilateral foraminal stenosis. Epidural lipomatosis at L3-4, L4-5 level. Discussed clinical, imaging finding. Showed images and explained detail. Some of his clinical symptoms is a combination of multiple medical comorbidities which includes Parkinson's and memory disturbance as well as spinal stenosis with neurogenic claudication. Discussed treatment option for lumbar canal stenosis with neurogenic claudication which includes continued conservative treatment with back exercise, physical therapy, pain medication, Lyrica 50 mg twice daily, bilateral L4-5 transferral epidural injection and surgical intervention. Considering failed conservative treatment, his daily activity is limited due to pain, I think surgery is also a good option. Discussed in detail about L3, L4 laminectomy, decompression of L3-4, L4-5 lumbar canal stenosis and decompression of synovial cyst with bilateral root foraminotomy surgical procedure, its advantages and risks. Risks of surgery includes infection, bleeding, hematoma formation, nonhealing of wound, wound dehiscence, superficial wound infection, CSF leak, nerve damage, nonimprovement of her pain, nonimprovement of numbness, nonimprovement of weakness, nonimprovement of walking difficulty, bowel/bladder dysfunction, retention of urine, knee/foot weakness, spinal instability, spondylolisthesis, requirement of further surgery/fusion in the future, pneumonia, DVT, heart attack, pulmonary embolism and . Also discussed the realistic outcome of surgical intervention. Some of his clinical symptom is a combination of multiple other medical problems. Some of his back pain may be related to Parkinson's with the walking difficulty. His back pain may not completely improve even after surgery. He also has some difficulty in functioning every day his activity due to memory disturbance. If his everyday function is not significantly improving with the lumbar surgery, he may require follow-up with neurology for further management. He also has severe lumbar spondylosis at L4-5, L5-S1 levels. If you develop recurrent stenosis or recurrence of pain, he may require fusion surgery in the future. All their questions were answered Nick Arora is clinically indicated and wishes to pursue 3, L4 laminectomy, decompression of L3-4, L4-5 lumbar canal stenosis and decompression of synovial cyst with bilateral root foraminotomy The risks, benefits, and anticipated outcomes of the procedure/treatment/test, the alternatives to the procedure/treatment/test and their risks and benefits, and the roles and tasks of the personnel to be involved were discussed with the patient or the patient?s personal retail sales representative. The patient has elected to schedule surgery at this time or intends to call the office with a surgical date. Shared decision making occurred while obtaining informed consent. The majority of the visit was spent counseling and/or coordinating care for the patient. The patient was counseled regarding lower back pain, right leg pain, right leg weakness, knee buckling, lumbar canal stenosis, epidural lipomatosis, lumbar laminectomy, lumbar foraminotomy, memory disturbance, Parkinson's, back pain, outcome of surgical intervention, risks of surgery, epidural injection, membrane stabilizers. Total face to face time was 45 minutes. PROGRESS Observed: 05/01/2025 12:04 PM Status: COMPLETED Source: [facility] ID: [id number] Author: NICK RUGGIERO, PhD Service: ? Author Type: ? Type: Progress Notes Filed: 06/21/2025 15:51 Note Text: Attestation signed by Nick Ruggiero, PhD at 06/21/2025 3:51 PM LICENSED PSYCHOLOGIST NOTE OF PERSONAL INVOLVEMENT IN CARE: I have completed a clinical interview with the patient and selected the test battery to be completed by the supervisor of operations. I have reviewed the supervisor of operations?s documentation and verified the tests listed in the note were administered. Any additions or changes are noted in bold/italics. Signature: Nick Ruggiero, PhD Date: 06/21/2025 Time: 3:51 PM Nick Arora [id number] has completed the following tests in full on today's date: 05/01/25 WRAT-5 Word Reading RIST NAB Driving Scenes NAB Story Learning NAB Judgment WAIS-IV Block Design, Digit Span Symbol Search AND Coding RBANS HVLT-R BVMT-R FAS/Animals TMT AANDB DKEFS V CWI M-WCST GDS-SF GAS-10 SRT PROGRESS Observed: 05/01/2025 9:02 AM Status: COMPLETED Source: [facility] HNO ID: [id number] Author: NICK RUGGIERO, PhD Service: ? Author Type: Psychologist Type: Progress Notes Filed: 05/18/2025 11:11 Note Text: [facility] Neuropsychology Consultation Name: Nick Arora Date of : 1960 Age: [age] year old Date of Evaluation: May 01, 2025 Mr. Arora was seen today for a clinical interview and neuropsychological testing. Follow up visit to discuss the results of the evaluation currently scheduled for 05/23/25 at 2:00 pm. Full report to follow. Nick Ruggiero, PhD CNOV Observed: 05/01/2025 9:00 AM Status: COMPLETED Source: [facility] Office Visit (PSYAGR) MAITENICK ([id number]) 1960 M Date Time Provider Department 05/01/25 9:00 AM PSYC TESTING [facility] 220 PSYAGR During your visit today, we recorded the following information about you: Jane Wang 06/08/2025 10:57 AM Cosign Needed Nick Arora, [id number] has completed the following tests in full on today's date: 05/01/25 WRAT-5 Word Reading RIST NAB Driving Scenes NAB Story Learning NAB Judgment WAIS-IV Block Design, Digit Span Symbol Search AND Coding RBANS HVLT-R BVMT-R FAS/Animals TMT AANDB DKEFS V CWI M-WCST GDS-SF GAS-10 SRT Referring Provider: MIRANDA DEL RIO [[id number]] Allergies As of Date: 05/01/2025 Noted Allergy Reaction DELETED: ACETAMINOPHEN 04/23/2023 8 - GI Upset HYDROCODONE 04/23/2023 8 - GI Upset TRAMADOL 04/23/2023 8 - GI Upset VICODIN (HYDROCODONE-ACETAMINOPHE*12/08/2023 8 - GI Upset Date Reviewed: 04/26/2025 Reviewed by: Arlin Alcocer LPN - Fully Assessed Primary Visit Diagnosis:Major neurocognitive disorder (HCC) [F03.90] Other Visit Diagnosis:Parkinson's disease with dyskinesia, unspecified whether manifestations fluctuate (HCC) [G20.B1] Prescriptions as of 06/08/2025 - acetaminophen (TYLENOL EXTRA STRENGTH) 500 mg tablet Take 2 tablets by mouth every 8 hours as needed for pain. - polyethylene glycol 3350 17 gram/dose powder Take 17 g by mouth once daily for 7 days. Dissolve dose in 4 - 8 ounces of liquid and take as directed. - trospium (SANCTURA) 20 mg tablet Take 1 tablet by mouth two times a day. - QUEtiapine (SEROQUEL) 25 mg tablet Take 1 tablet by mouth daily at bedtime. - traZODone (DESYREL) 150 mg tablet Take 1 tablet by mouth daily at bedtime. - donepezil (ARICEPT) 10 mg tablet After on trazodone for 2 weeks, start 1/2 pill once a day for 1 month then increase to a full pill once a day thereafter. - atorvastatin (LIPITOR) 20 mg tablet TAKE 1 TABLET BY MOUTH ONCE DAILY AT BEDTIME - dapagliflozin propanediol (FARXIGA) 10 mg tablet Take 1 tablet by mouth daily with breakfast. - carbidopa-levodopa (SINEMET 25-100) 25-100 mg per tablet Take 2 tablets by mouth three times a day. - tamsulosin (FLOMAX) 0.4 mg Take 1 capsule by mouth once daily. - pantoprazole DR (PROTONIX) 40 mg tablet Take 1 tablet by mouth two times a day before meals at 6 am and 4 pm. - lisinopril (ZESTRIL) 10 mg tablet Take 1 tablet by mouth once daily. - spironolactone (ALDACTONE) 25 mg tablet Take 1 tablet by mouth once daily. - aspirin 81 mg cap Take 81 mg by mouth once daily. - iv contrast (will be provided with radiology test) CTA Head/Neck W No IV access, insert saline lock prior to the sedation, infusion, injection for imaging exam. Discontinue saline lock post exam. If Pt. has a central line or IVAD, may access for administration according to line specific nursing protocol. Once exam is complete flush line and de-access according to line specific nursing protocol in the CT contrast administration guidelines link. - cloNIDine HCl (CATAPRES) 0.2 mg tablet Take 0.2 mg by mouth two times a day. - citalopram (CELEXA) 40 mg tablet Take 40 mg by mouth once daily. 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/18/2024 Chronic bilateral low back pain with bilateral *04/18/2024 Parkinson's disease with dyskinesia (HCC) [G20.*04/18/2024 Aftercare [Z51.89] 06/29/2024 Status post total left knee replacement [Z96.65*06/29/2024 YUMIKO (acute kidney injury) (HCC) [N17.9] 06/30/2024 07/05/2024 Acute urinary retention [R33.8] 06/30/2024 07/13/2024 Malnutrition of mild degree (HCC) [E44.1] 07/01/2024 07/13/2024 Nausea and vomiting [R11.2] 07/03/2024 07/13/2024 UTI (urinary tract infection) [N39.0] 07/03/2024 07/05/2024 UTI (urinary tract infection) [N39.0] 07/06/2024 07/13/2024 YUMIKO (acute kidney injury) ([facility]) [N17.9] 07/06/2024 07/13/2024 Hypotension [I95.9] 07/06/2024 07/13/2024 Encounter Status:Closed by JANE WANG on 06/08/25 CNOV Observed: 05/01/2025 8:00 AM Status: COMPLETED Source: [facility] Office Visit (PSYAGR) NICK ARORA ([id number]) 1960 M Date Time Provider Department 05/01/25 8:00 AM NICK RUGGIEROYAGR During your visit today, we recorded the following information about you: Nick Ruggiero, PhD 05/18/2025 11:11 AM Addendum [facility] Neuropsychology Consultation Name: Nick Arora Date of : 1960 Age: [age] year old Date of Evaluation: May 01, 2025 Mr. Arora was seen today for a clinical interview and neuropsychological testing. Follow up visit to discuss the results of the evaluation currently scheduled for 05/23/25 at 2:00 pm. Full report to follow. Nick Ruggiero, PhD Referring Provider: MIRANDA DEL RIO [[id number]] Allergies As of Date: 05/01/2025 Noted Allergy Reaction DELETED: ACETAMINOPHEN 04/23/2023 8 - GI Upset HYDROCODONE 04/23/2023 8 - GI Upset TRAMADOL 04/23/2023 8 - GI Upset VICODIN (HYDROCODONE-ACETAMINOPHE*12/08/2023 8 - GI Upset Date Reviewed: 04/26/2025 Reviewed by: Arlin Alcocer LPN - Fully Assessed Reason for Visit: Neuropsych Testing [506] Primary Visit Diagnosis:Major neurocognitive disorder (HCC) [F03.90] Other Visit Diagnosis:Parkinson's disease with dyskinesia, unspecified whether manifestations fluctuate (HCC) [G20.B1] Prescriptions as of 05/18/2025 - mupirocin (BACTROBAN) 2 % ointment Apply 1/2 ointment with a cotton swap in each nostril 2x daily for five days preop - trospium (SANCTURA) 20 mg tablet Take 1 tablet by mouth two times a day. - QUEtiapine (SEROQUEL) 25 mg tablet Take 1 tablet by mouth daily at bedtime. - traZODone (DESYREL) 150 mg tablet Take 1 tablet by mouth daily at bedtime. - donepezil (ARICEPT) 10 mg tablet After on trazodone for 2 weeks, start 1/2 pill once a day for 1 month then increase to a full pill once a day thereafter. - atorvastatin (LIPITOR) 20 mg tablet TAKE 1 TABLET BY MOUTH ONCE DAILY AT BEDTIME - dapagliflozin propanediol (FARXIGA) 10 mg tablet Take 1 tablet by mouth daily with breakfast. - carbidopa-levodopa (SINEMET 25-100) 25-100 mg per tablet Take 2 tablets by mouth three times a day. - acetaminophen (TYLENOL) 500 mg tablet Take 2 tablets by mouth every 8 hours. - tamsulosin (FLOMAX) 0.4 mg Take 1 capsule by mouth once daily. - pantoprazole DR (PROTONIX) 40 mg tablet Take 1 tablet by mouth two times a day before meals at 6 am and 4 pm. - senna-docusate (SENNA-S) 8.6-50 mg per tablet Take 1 tablet by mouth two times a day. - lisinopril (ZESTRIL) 10 mg tablet Take 1 tablet by mouth once daily. - polyethylene glycol 3350 17 gram packet Take 1 Packet by mouth two times a day. Dissolve dose in 4 - 8 ounces of liquid and take as directed. - spironolactone (ALDACTONE) 25 mg tablet Take 1 tablet by mouth once daily. - aspirin 81 mg cap Take 81 mg by mouth once daily. - iv contrast (will be provided with radiology test) CTA Head/Neck W No IV access, insert saline lock prior to the sedation, infusion, injection for imaging exam. Discontinue saline lock post exam. If Pt. has a central line or IVAD, may access for administration according to line specific nursing protocol. Once exam is complete flush line and de-access according to line specific nursing protocol in the CT contrast administration guidelines link. - cloNIDine HCl (CATAPRES) 0.2 mg tablet Take 0.2 mg by mouth two times a day. - citalopram (CELEXA) 40 mg tablet Take 40 mg by mouth once daily. 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/18/2024 Chronic bilateral low back pain with bilateral *04/18/2024 Parkinson's disease with dyskinesia (HCC) [G20.*04/18/2024 Aftercare [Z51.89] 06/29/2024 Status post total left knee replacement [Z96.65*06/29/2024 YUMIKO (acute kidney injury) (HCC) [N17.9] 06/30/2024 07/05/2024 Acute urinary retention [R33.8] 06/30/2024 07/13/2024 Malnutrition of mild degree (HCC) [E44.1] 07/01/2024 07/13/2024 Nausea and vomiting [R11.2] 07/03/2024 07/13/2024 UTI (urinary tract infection) [N39.0] 07/03/2024 07/05/2024 UTI (urinary tract infection) [N39.0] 07/06/2024 07/13/2024 YUMIKO (acute kidney injury) (HCC) [N17.9] 07/06/2024 07/13/2024 Hypotension [I95.9] 07/06/2024 07/13/2024 Encounter Status:Closed by NICK RUGGIERO on 05/01/25 SUDHIR Observed: 04/28/2025 12:00 AM Status: COMPLETED Source: [facility] Telephone (PSYAGR) NICK ARORA ([id number]) 1960 M Date Time Provider Department 04/28/25 NICK RUGGIERO [email or web address] During your visit today, we recorded the following information about you: Joann Sherman 04/28/2025 1:47 PM Signed Placed a reminder call for Neuropsychological testing. Talked to the patient; they confirmed appointment. Allergies As of Date: 04/28/2025 Noted Allergy Reaction ACETAMINOPHEN 04/23/2023 8 - GI Upset HYDROCODONE 04/23/2023 8 - GI Upset TRAMADOL 04/23/2023 8 - GI Upset VICODIN (HYDROCODONE-ACETAMINOPHE*12/08/2023 8 - GI Upset Date Reviewed: 04/26/2025 Reviewed by: Arlin Alcocer LPN - Fully Assessed Reason for Visit: Appointment [186] Prescriptions as of 04/28/2025 - trospium (SANCTURA) 20 mg tablet Take 1 tablet by mouth two times a day. - QUEtiapine (SEROQUEL) 25 mg tablet Take 1 tablet by mouth daily at bedtime. - traZODone (DESYREL) 150 mg tablet Take 1 tablet by mouth daily at bedtime. - donepezil (ARICEPT) 10 mg tablet After on trazodone for 2 weeks, start 1/2 pill once a day for 1 month then increase to a full pill once a day thereafter. - atorvastatin (LIPITOR) 20 mg tablet TAKE 1 TABLET BY MOUTH ONCE DAILY AT BEDTIME - dapagliflozin propanediol (FARXIGA) 10 mg tablet Take 1 tablet by mouth daily with breakfast. - carbidopa-levodopa (SINEMET 25-100) 25-100 mg per tablet Take 2 tablets by mouth three times a day. - acetaminophen (TYLENOL) 500 mg tablet Take 2 tablets by mouth every 8 hours. - tamsulosin (FLOMAX) 0.4 mg Take 1 capsule by mouth once daily. - pantoprazole DR (PROTONIX) 40 mg tablet Take 1 tablet by mouth two times a day before meals at 6 am and 4 pm. - senna-docusate (SENNA-S) 8.6-50 mg per tablet Take 1 tablet by mouth two times a day. - lisinopril (ZESTRIL) 10 mg tablet Take 1 tablet by mouth once daily. - polyethylene glycol 3350 17 gram packet Take 1 Packet by mouth two times a day. Dissolve dose in 4 - 8 ounces of liquid and take as directed. - spironolactone (ALDACTONE) 25 mg tablet Take 1 tablet by mouth once daily. - aspirin 81 mg cap Take 81 mg by mouth once daily. - iv contrast (will be provided with radiology test) CTA Head/Neck W No IV access, insert saline lock prior to the sedation, infusion, injection for imaging exam. Discontinue saline lock post exam. If Pt. has a central line or IVAD, may access for administration according to line specific nursing protocol. Once exam is complete flush line and de-access according to line specific nursing protocol in the CT contrast administration guidelines link. - cloNIDine HCl (CATAPRES) 0.2 mg tablet Take 0.2 mg by mouth two times a day. - citalopram (CELEXA) 40 mg tablet Take 40 mg by mouth once daily. 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/18/2024 Chronic bilateral low back pain with bilateral *04/18/2024 Parkinson's disease with dyskinesia (HCC) [G20.*04/18/2024 Aftercare [Z51.89] 06/29/2024 Status post total left knee replacement [Z96.65*06/29/2024 YUMIKO (acute kidney injury) (HCC) [N17.9] 06/30/2024 07/05/2024 Acute urinary retention [R33.8] 06/30/2024 07/13/2024 Malnutrition of mild degree (HCC) [E44.1] 07/01/2024 07/13/2024 Nausea and vomiting [R11.2] 07/03/2024 07/13/2024 UTI (urinary tract infection) [N39.0] 07/03/2024 07/05/2024 UTI (urinary tract infection) [N39.0] 07/06/2024 07/13/2024 YUMIKO (acute kidney injury) (HCC) [N17.9] 07/06/2024 07/13/2024 Hypotension [I95.9] 07/06/2024 07/13/2024 Encounter Status:Closed by JOANN SHERMAN on 04/28/25 PROGRESS Observed: 04/26/2025 1:50 PM Status: COMPLETED Source: [facility] HNO ID: [id number] Author: CORAL FRANCISCO PA-C Service: ? Author Type: Physician Instructor Of Spanish Type: Progress Notes Filed: 04/26/2025 14:45 Note Text: [facility] MALE PATIENT - HISTORY AND PHYSICAL EXAMINATION PATIENT: Nick Arora Patient has been identified by name and date of : Yes Recording using [employer] software for draft documentation of the visit was discussed with the patient/authorized retail sales representative; all questions welcomed and answered. Patient/authorized retail sales representative agreed to proceed PCP: Aga Benitez MD CHIEF COMPLAINT: Overactive bladder HISTORY OF PRESENT ILLNESS: Mr. Arora is a 65 year old male patient with PMHx of Parkinsons disease, Alhzeimers disease, HLD, HTN, DM2, and HF presenting for overactive bladder. Last PSA was .52. On Farxiga 10mg and aldactone Urinary Incontinence and Frequency: - Urinates every 15-20 minutes during the day; urgency triggered by running water. - Nocturia 2-3 times per night. - Frequent daytime incontinence; changes underwear 5-6 times daily. - Refuses to wear Depends or pads. - Average to good urine stream; denies hesitancy, intermittency, straining, or post-void dribbling. - Denies hematuria, dysuria, fevers, or chills. - Decreased fluid intake today; consumed one swallow of water and no fluids last night. - Daily fluid intake: ~20 oz water and four 12 oz cans of diet Mountain Dew. - Denies recent catheter use. Benign Prostatic Hyperplasia: - Continues to take Flomax 0.4 mg nightly. - Previous cystoscopy showed no abnormalities; no surgical intervention recommended. Overactive Bladder: - Previously managed with oxybutynin; discontinued due to cognitive side effects. - Symptoms improved on oxybutynin; worsened after discontinuation. - Attempted to start trospium and Gemtesa, but insurance did not cover. Alzheimer's Disease: - Diagnosed approximately one month ago by a neurologist. - Currently taking donepezil. - Family history negative for Alzheimer's disease. Parkinson's Disease: - Diagnosed prior to Alzheimer's disease. - No family history of Parkinson's disease. Chronic Kidney Disease: - History of elevated creatinine levels; most recent level was 1.31, improved from 1.76 three months ago. - Previous episode of kidney failure associated with catheter use. Lifestyle: - Lives at home with his . - Daughter resides in [place] and visits to assist with medical appointments. - History of working with [employer] for 50 years. REVIEW OF SYSTEMS: PAST MEDICAL HISTORY: PAST MEDICAL HISTORY Diagnosis Date Anxiety and depression BPH (benign prostatic hyperplasia) Congestive heart failure (HCC) Diabetes (HCC) Dyslipidemia Hypertension Kidney stone Spinal stenosis TIA (transient ischemic attack) Tremor PAST SURGICAL HISTORY Procedure Laterality Date TOTAL KNEE REPLACEMENT Left 06/2024 Social History Tobacco Use Smoking status: Never Smokeless tobacco: Never Vaping Use Vaping status: Never Used Substance Use Topics Alcohol use: Not Currently Comment: none now Drug use: Never FAMILY HISTORY Problem Relation Age of Onset Sudden Cardiac Father advanced age at 90 yo other (HTN) Father Cancer Mother Diabetes Mother other (HTN) Mother Stroke Mother Diabetes Sister other (DM) Sister other (HTN) Sister other (diabetic retinopathy) Sister Cancer Brother colon cancer , stomach cancer other (dm) Brother Stroke Brother MEDICATIONS: reviewed and confirmed with patient OFFICE DATA: reviewed 04/26/25 PVR: 0 ML URINE POC GLUCOSE UA (POCT) 500 04/26/2025 BILIRUBIN UA (POCT) Negative 04/26/2025 KETONE UA (POCT) Negative 04/26/2025 SPECIFIC GRAVITY UA (POCT) 1.020 04/26/2025 HEMOGLOBIN/BLOOD UA (POCT) Negative 04/26/2025 PH UA (POCT) 7.0 04/26/2025 PROTEIN UA (POCT) Negative 04/26/2025 UROBILINOGEN UA (POCT) 0.2 04/26/2025 NITRITE UA (POCT) Negative 04/26/2025 LEUKOCYTES UA (POCT) Negative 04/26/2025 COLOR UA (POCT) Yellow 04/26/2025 CLARITY UA (POCT) Clear 04/26/2025 OTHER DATA: reviewed Labs reviewed PSA (ng/mL) Date Value 01/23/2025 0.52 Psa (NG/ML) Date Value 10/25/2019 0.55 No results found for: TESTOST, TESTFREE Hemoglobin A1C (%) Date Value 01/23/2025 6.4 08/08/2024 5.6 02/26/2024 6.4 TSH Date Value Ref Range Status 02/26/2024 1.610 0.270 - 4.200 mIU/L Final Creatinine Date Value Ref Range Status 01/23/2025 1.31 (H) 0.73 - 1.22 mg/dL Final 08/08/2024 1.76 (H) 0.73 - 1.22 mg/dL Final 07/12/2024 1.30 (H) 0.73 - 1.22 mg/dL Final 07/09/2024 1.17 0.73 - 1.22 mg/dL Final PHYSICAL EXAMINATION: The sensitive examination was discussed with the Patient or Patient's Authorized Environmental Services Aide. As applicable, any other physician, advance practice provider, medical student, or other health professional student that will be observing or involved in the sensitive examination for educational or training purposes was discussed with the Patient or Authorized Environmental Services Aide. The Patient or Authorized Environmental Services Aide has agreed to proceed with the sensitive examination. (Sensitive examination includes inspection and/or palpation of the breasts, pelvis, prostate and anorectal regions) General appearance: cooperative, pleasant, no acute distress, alert and oriented Neuro: normal affect, normal speech, gait is normal. Lungs/chest: no signs of respiratory distress, no audible wheezing ASSESSMENT: 1. Urge incontinence - ICD9: 788.31, ICD10: N39.41 (primary diagnosis) 2. Overactive bladder - ICD9: 596.51, ICD10: N32.81 3. Parkinson's disease, unspecified whether dyskinesia present, unspecified whether manifestations fluctuate (HCC) - ICD9: 332.0, ICD10: G20.A1 4. Alzheimer's disease (HCC) - ICD9: 331.0, ICD10: G30.9, F02.80 5. Screening for genitourinary condition - ICD9: V81.6, ICD10: Z13.89 PLAN: 1. Urge incontinence (N39.41) 2. Overactive bladder (N32.81) - Urinary frequency every 15-20 minutes during the day with urgency and occasional incontinence; nocturia 2-3 times per night. - Currently on tamsulosin 0.4 mg nightly with good urinary stream and no hesitancy or intermittency. - Previously on oxybutynin, discontinued due to cognitive concerns and recent Aleimers diagnosis. - Discussed dietary modifications to reduce bladder irritants, including reducing intake of artificially sweetened beverages and increasing water consumption. - Initiated trospium 20 mg orally twice daily; - Discussed potential for pelvic floor physical therapy; referral placed. - Discussed Botox injections as a future option if pharmacotherapy is insufficient 3. Parkinson's disease, unspecified whether dyskinesia present, unspecified whether manifestations fluctuate (HCC) (G20.A1) 4. Alzheimer's disease (HCC) (G30.9) - Diagnosed with Parkinson's disease and Alzheimer's disease. - Currently on donepezil. - Discussed risks of anticholinergic medications exacerbating cognitive decline. - Emphasized importance of medication adherence and monitoring for any changes in cognitive status. - Follow-up with neurology as scheduled. 5.. Screening for genitourinary condition (Z13.89) - Previous cystoscopy showed no significant findings. - Recent post-void residual was zero, indicating complete bladder emptying. - No hematuria or dysuria reported. No recent catheter use. The results of tests will be communicated to patient via . Patient verbalized understanding. Coral Francisco PA-C Location:[place] [facility] Observed: 04/26/2025 1:50 PM Status: COMPLETED Source: [facility] Office Visit (UROLMD) NICK ARORA ([id number]) 1960 M Date Time Provider Department 04/26/25 1:50 PM CORAL FRANCISCO URONATALIIA During your visit today, we recorded the following information about you: Weight Height 90.7 kg 1.829 m Arlin Alcocer LPN 04/26/2025 2:45 PM Signed Bladder scan obtained 0 ml of urine Coral Francisco PA-C 04/26/2025 2:45 PM Signed [facility] MALE PATIENT - HISTORY AND PHYSICAL EXAMINATION PATIENT: Nick Arora Patient has been identified by name and date of : Yes Recording using [employer] software for draft documentation of the visit was discussed with the patient/authorized retail sales representative; all questions welcomed and answered. Patient/authorized retail sales representative agreed to proceed PCP: Aga Benitez MD CHIEF COMPLAINT: Overactive bladder HISTORY OF PRESENT ILLNESS: Mr. Arora is a 65 year old male patient with PMHx of Parkinsons disease, Alhzeimers disease, HLD, HTN, DM2, and HF presenting for overactive bladder. Last PSA was .52. On Farxiga 10mg and aldactone Urinary Incontinence and Frequency: - Urinates every 15-20 minutes during the day; urgency triggered by running water. - Nocturia 2-3 times per night. - Frequent daytime incontinence; changes underwear 5-6 times daily. - Refuses to wear Depends or pads. - Average to good urine stream; denies hesitancy, intermittency, straining, or post-void dribbling. - Denies hematuria, dysuria, fevers, or chills. - Decreased fluid intake today; consumed one swallow of water and no fluids last night. - Daily fluid intake: ~20 oz water and four 12 oz cans of diet Mountain Dew. - Denies recent catheter use. Benign Prostatic Hyperplasia: - Continues to take Flomax 0.4 mg nightly. - Previous cystoscopy showed no abnormalities; no surgical intervention recommended. Overactive Bladder: - Previously managed with oxybutynin; discontinued due to cognitive side effects. - Symptoms improved on oxybutynin; worsened after discontinuation. - Attempted to start trospium and Gemtesa, but insurance did not cover. Alzheimer's Disease: - Diagnosed approximately one month ago by a neurologist. - Currently taking donepezil. - Family history negative for Alzheimer's disease. Parkinson's Disease: - Diagnosed prior to Alzheimer's disease. - No family history of Parkinson's disease. Chronic Kidney Disease: - History of elevated creatinine levels; most recent level was 1.31, improved from 1.76 three months ago. - Previous episode of kidney failure associated with catheter use. Lifestyle: - Lives at home with his . - Daughter resides in [place] and visits to assist with medical appointments. - History of working with [employer] for 50 years. REVIEW OF SYSTEMS: PAST MEDICAL HISTORY: PAST MEDICAL HISTORY Diagnosis Date Anxiety and depression BPH (benign prostatic hyperplasia) Congestive heart failure (HCC) Diabetes (HCC) Dyslipidemia Hypertension Kidney stone Spinal stenosis TIA (transient ischemic attack) Tremor PAST SURGICAL HISTORY Procedure Laterality Date TOTAL KNEE REPLACEMENT Left 06/2024 Social History Tobacco Use Smoking status: Never Smokeless tobacco: Never Vaping Use Vaping status: Never Used Substance Use Topics Alcohol use: Not Currently Comment: none now Drug use: Never FAMILY HISTORY Problem Relation Age of Onset Sudden Cardiac Father advanced age at 90 yo other (HTN) Father Cancer Mother Diabetes Mother other (HTN) Mother Stroke Mother Diabetes Sister other (DM) Sister other (HTN) Sister other (diabetic retinopathy) Sister Cancer Brother colon cancer , stomach cancer other (dm) Brother Stroke Brother MEDICATIONS: reviewed and confirmed with patient OFFICE DATA: reviewed 04/26/25 PVR: 0 ML URINE POC GLUCOSE UA (POCT) 500 04/26/2025 BILIRUBIN UA (POCT) Negative 04/26/2025 KETONE UA (POCT) Negative 04/26/2025 SPECIFIC GRAVITY UA (POCT) 1.020 04/26/2025 HEMOGLOBIN/BLOOD UA (POCT) Negative 04/26/2025 PH UA (POCT) 7.0 04/26/2025 PROTEIN UA (POCT) Negative 04/26/2025 UROBILINOGEN UA (POCT) 0.2 04/26/2025 NITRITE UA (POCT) Negative 04/26/2025 LEUKOCYTES UA (POCT) Negative 04/26/2025 COLOR UA (POCT) Yellow 04/26/2025 CLARITY UA (POCT) Clear 04/26/2025 OTHER DATA: reviewed Labs reviewed PSA (ng/mL) Date Value 01/23/2025 0.52 Psa (NG/ML) Date Value 10/25/2019 0.55 No results found for: TESTOST, TESTFREE Hemoglobin A1C (%) Date Value 01/23/2025 6.4 08/08/2024 5.6 02/26/2024 6.4 TSH Date Value Ref Range Status 02/26/2024 1.610 0.270 - 4.200 mIU/L Final Creatinine Date Value Ref Range Status 01/23/2025 1.31 (H) 0.73 - 1.22 mg/dL Final 08/08/2024 1.76 (H) 0.73 - 1.22 mg/dL Final 07/12/2024 1.30 (H) 0.73 - 1.22 mg/dL Final 07/09/2024 1.17 0.73 - 1.22 mg/dL Final PHYSICAL EXAMINATION: The sensitive examination was discussed with the Patient or Patient's Authorized Environmental Services Aide. As applicable, any other physician, advance practice provider, medical student, or other health professional student that will be observing or involved in the sensitive examination for educational or training purposes was discussed with the Patient or Authorized Environmental Services Aide. The Patient or Authorized Environmental Services Aide has agreed to proceed with the sensitive examination. (Sensitive examination includes inspection and/or palpation of the breasts, pelvis, prostate and anorectal regions) General appearance: cooperative, pleasant, no acute distress, alert and oriented Neuro: normal affect, normal speech, gait is normal. Lungs/chest: no signs of respiratory distress, no audible wheezing ASSESSMENT: 1. Urge incontinence - ICD9: 788.31, ICD10: N39.41 (primary diagnosis) 2. Overactive bladder - ICD9: 596.51, ICD10: N32.81 3. Parkinson's disease, unspecified whether dyskinesia present, unspecified whether manifestations fluctuate (HCC) - ICD9: 332.0, ICD10: G20.A1 4. Alzheimer's disease (HCC) - ICD9: 331.0, ICD10: G30.9, F02.80 5. Screening for genitourinary condition - ICD9: V81.6, ICD10: Z13.89 PLAN: 1. Urge incontinence (N39.41) 2. Overactive bladder (N32.81) - Urinary frequency every 15-20 minutes during the day with urgency and occasional incontinence; nocturia 2-3 times per night. - Currently on tamsulosin 0.4 mg nightly with good urinary stream and no hesitancy or intermittency. - Previously on oxybutynin, discontinued due to cognitive concerns and recent Alpazmers diagnosis. - Discussed dietary modifications to reduce bladder irritants, including reducing intake of artificially sweetened beverages and increasing water consumption. - Initiated trospium 20 mg orally twice daily; - Discussed potential for pelvic floor physical therapy; referral placed. - Discussed Botox injections as a future option if pharmacotherapy is insufficient 3. Parkinson's disease, unspecified whether dyskinesia present, unspecified whether manifestations fluctuate (HCC) (G20.A1) 4. Alzheimer's disease (HCC) (G30.9) - Diagnosed with Parkinson's disease and Alzheimer's disease. - Currently on donepezil. - Discussed risks of anticholinergic medications exacerbating cognitive decline. - Emphasized importance of medication adherence and monitoring for any changes in cognitive status. - Follow-up with neurology as scheduled. 5.. Screening for genitourinary condition (Z13.89) - Previous cystoscopy showed no significant findings. - Recent post-void residual was zero, indicating complete bladder emptying. - No hematuria or dysuria reported. No recent catheter use. The results of tests will be communicated to patient via . Patient verbalized understanding. Coral Francisco PA-C Location:[facility] PA-C 04/26/2025 2:25 PM Signed Schedule in 3 months. Referring Provider: MIRANDA DEL RIO [[id number]] Allergies As of Date: 04/26/2025 Noted Allergy Reaction ACETAMINOPHEN 04/23/2023 8 - GI Upset HYDROCODONE 04/23/2023 8 - GI Upset TRAMADOL 04/23/2023 8 - GI Upset VICODIN (HYDROCODONE-ACETAMINOPHE*12/08/2023 8 - GI Upset Date Reviewed: 04/26/2025 Reviewed by: Arlin Alcocer LPN - Fully Assessed Reason for Visit: Consult [173] Cmt: OAB (overactive bladder) Primary Visit Diagnosis:Urge incontinence [N39.41] Other Visit Diagnoses:Overactive bladder [N32.81] Parkinson's disease, unspecified whether dyskinesia present, unspecified whether manifestations fluctuate (HCC) [G20.A1] Alzheimer's disease (HCC) [G30.9, F02.80] Screening for genitourinary condition [Z13.89] Order(s):UA DIP, URINE (POC) [6636410] Order #: [id number]. #:[id number] SCAN [[id number]] Order #: [id number] trospium (SANCTURA) 20 mg tabletTake 1 tablet by mouth two times a day.Disp: 180 tabletRfl: 0 CONSULT TO PHYSICAL THERAPY [9032] Order #: [id number]: 1 FUTURE Prescriptions as of 04/26/2025 - trospium (SANCTURA) 20 mg tablet Take 1 tablet by mouth two times a day. - traZODone (DESYREL) 150 mg tablet Take 1 tablet by mouth daily at bedtime. - donepezil (ARICEPT) 10 mg tablet After on trazodone for 2 weeks, start 1/2 pill once a day for 1 month then increase to a full pill once a day thereafter. - atorvastatin (LIPITOR) 20 mg tablet TAKE 1 TABLET BY MOUTH ONCE DAILY AT BEDTIME - dapagliflozin propanediol (FARXIGA) 10 mg tablet Take 1 tablet by mouth daily with breakfast. - carbidopa-levodopa (SINEMET 25-100) 25-100 mg per tablet Take 2 tablets by mouth three times a day. - acetaminophen (TYLENOL) 500 mg tablet Take 2 tablets by mouth every 8 hours. - tamsulosin (FLOMAX) 0.4 mg Take 1 capsule by mouth once daily. - pantoprazole DR (PROTONIX) 40 mg tablet Take 1 tablet by mouth two times a day before meals at 6 am and 4 pm. - senna-docusate (SENNA-S) 8.6-50 mg per tablet Take 1 tablet by mouth two times a day. - lisinopril (ZESTRIL) 10 mg tablet Take 1 tablet by mouth once daily. - polyethylene glycol 3350 17 gram packet Take 1 Packet by mouth two times a day. Dissolve dose in 4 - 8 ounces of liquid and take as directed. - spironolactone (ALDACTONE) 25 mg tablet Take 1 tablet by mouth once daily. - aspirin 81 mg cap Take 81 mg by mouth once daily. - iv contrast (will be provided with radiology test) CTA Head/Neck W No IV access, insert saline lock prior to the sedation, infusion, injection for imaging exam. Discontinue saline lock post exam. If Pt. has a central line or IVAD, may access for administration according to line specific nursing protocol. Once exam is complete flush line and de-access according to line specific nursing protocol in the CT contrast administration guidelines link. - cloNIDine HCl (CATAPRES) 0.2 mg tablet Take 0.2 mg by mouth two times a day. - citalopram (CELEXA) 40 mg tablet Take 40 mg by mouth once daily. 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/18/2024 Chronic bilateral low back pain with bilateral *04/18/2024 Parkinson's disease with dyskinesia (HCC) [G20.*04/18/2024 Aftercare [Z51.89] 06/29/2024 Status post total left knee replacement [Z96.65*06/29/2024 YUMIKO (acute kidney injury) (HCC) [N17.9] 06/30/2024 07/05/2024 Acute urinary retention [R33.8] 06/30/2024 07/13/2024 Malnutrition of mild degree (HCC) [E44.1] 07/01/2024 07/13/2024 Nausea and vomiting [R11.2] 07/03/2024 07/13/2024 UTI (urinary tract infection) [N39.0] 07/03/2024 07/05/2024 UTI (urinary tract infection) [N39.0] 07/06/2024 07/13/2024 YUMIKO (acute kidney injury) (HCC) [N17.9] 07/06/2024 07/13/2024 Hypotension [I95.9] 07/06/2024 07/13/2024 Other instructions from your clinician: Schedule in 3 months. Prescriptions ordered this encounter Disp Refills Start End TROSPIUM 20 MG TABLET 180 * 0 04/26/2025 Route: PO Sig: Take 1 tablet by mouth two times a day. Medications Discontinued During This Encounter Prescriptions - oxybutynin ER (DITROPAN XL) 10 mg 24 hr tablet (Discontinued) Reported on 04/26/2025 Level of Service: OFFICE/OUTPATIENT [facility] 45 MINUTES [[id number]] Additional E/M codes: VISIT CPLX INHERENT EANDM ASSOC WITH MED * Disposition: Return in about 3 months (around 07/27/2025). Follow-up and Disposition History for Encounter Date Provider Department Center 04/26/2025 [id number] MIGUEL FRANCISCOUROLMD [facility] Encounter Status:Closed by CORAL FRANCISCO on 04/26/25 PROGRESS Observed: 04/26/2025 1:49 PM Status: COMPLETED Source: [facility] HNO ID: [id number] Author: ARLIN ALCOCER LPN Service: ? Author Type: LICENSED NURSE Type: Progress Notes Filed: 04/26/2025 14:45 Note Text: Bladder scan obtained 0 ml of urine PVR ANK PRESS [facility] Observed: 04/05 12:34 PM Status: F Source: [facility] Lower Extremity Arterial Physiology Study Bilateral/Complete Date of service/time: 04/26/2025 12:34:44 PM Name: NICK ARORA Date of : 1960 Age: 65 years Gender: M Medical History Diabetes: Yes Clinical Indication Diabetic polyneuropathy. TECHNIQUE -------- An arterial physiological examination was performed, including measurement of blood pressures using continuous wave Doppler and recording of plethysmographic with or without Doppler waveforms at the below-mentioned limb segments. FINDINGS -------- RIGHT SIDE AT REST Right Doppler Waveforms Dorsalis pedis: Multiphasic. Post tibial: Multiphasic. Right Pressures Brachial: 159 mmHg Ankle dorsalis pedis: 199 mmHg ADILENE: 1.23 Ankle posterior tibial: 203 mmHg ADILENE: 1.25 Digit: 113 mmHg Right PVR Waveforms Ankle: Normal. LEFT SIDE AT REST Left Doppler Waveforms Dorsalis pedis: Multiphasic. Post tibial: Multiphasic. Left Pressures Brachial: 162 mmHg Ankle dorsalis pedis: 179 mmHg ADILENE: 1.10 Ankle posterior tibial: 189 mmHg ADILENE: 1.17 Digit: 120 mmHg Left PVR Waveforms Ankle: Normal. IMPRESSION RIGHT SIDE Resting right ankle brachial index: 1.25 Right toe brachial index: 0.70 Normal ankle brachial index at rest in the right leg. Normal toe brachial index at rest in the right leg. Right ankle: Normal at rest. LEFT SIDE Resting left ankle brachial index: 1.17 Left toe brachial index: 0.74 Normal ankle brachial index at rest in the left leg. Normal toe brachial index at rest in the left leg. Left ankle: Normal at rest. Technologist: Lyn Che Dania Ordering physician: KATE AGUDELO Interpreting physician: Jesus Sam MD, MARICARMEN Final CC [facility] Image : [id number] See Link below for Image SUDHIR Observed: 04/06/2025 12:00 AM Status: COMPLETED Source: [facility] Telephone (NEADMN) NICK ARORA ([id number]) 1960 Date Time Provider Department 04/06/25 MIRANDA DEL RIO During your visit today, we recorded the following information about you: Génesis Sykes 04/06/2025 4:04 PM Signed Call received for Miranda Del Rio MD regarding Nick Arora 1960. Caller: Family member: Carmina Patient Identified by Name and : Yes Was permission obtained from patient ? NA Reason for Call: Orders Type of order requested : PAT scan to rule out alzheimer's Are you going to external facility ? No Other: The patient daughter states the patient is extremely anxious and asked if Dr. Del Rio can prescribe something to help. Last Office Visit: 03/27/2025 Last [facility] Health visit: Visit date not found Next scheduled appointment: 06/19/2025 Best number to reach caller: [phone] Best time to reach caller: any Is it OK to leave a detailed voice message? Yes Miranda Ohara MD 04/10/2025 4:15 PM Signed I was a little confused by the initial message, are they asking for a PET scan and anxiety management? Can you double check what's going on with him, anxiety could be related to levodopa timing which we just increased, should make sure anxiety isn't occurring when it kicks in or wears OFF. I think he is taking citalopram 40 mg daily right now so would want to understand how long he's been on that and if it was helping him. Moraima Tovar RN 04/11/2025 10:20 AM Signed Spoke to patient's daughter OSVALDO Grewal to clarify what they are asking for. She states her family is asking why more testing is not being done to confirm diagnosis of Alzheimer's and what stage. Inquiring about a PET scan or MRI. States CT was old from another hospital so not sure how long he has had it. Family is arguing with daughter about diagnosis. Anxiety has been an issue for awhile and is not new. States has gotten worse in last 6 months. Patient stays wired and cannot relax or calm down. Night time is worse. Takes trazadone since last appointment on 03/27/25 and does not seem to be helping. He is taking 100 mg for last several days with no effect. Has taken citalopram for a long time and does not feel it is helping. Takes levodopa 5 hours apart but now with him staying up all night and sleeping all day she is not sure how he is taking them even though he states he is. Patient lives with spouse that is older and does not speak much American. Daughter is trying to figure out how to help him. Asking advice. Massiel Tovar RN, Miranda Valentine MD 04/11/2025 11:16 AM Signed He had an MRI Brain 01/2024 which does not need repeated, it showed severe vascular changes which could be contributing to memory loss. Parkinson's would be the other main potential cause. Neuropsych testing is the next step in workup which is scheduled for later this month. A PET scan is not currently indicated. If the trazodone is not working after he has been on it for at least a week he could try taking 1.5 pills to see if that helps. I would hold off on adding another medication for anxiety since trazodone can help mood and the donepezil were going to be starting next can help some behavioral issues. Meenakshi Lux 04/14/2025 2:17 PM Signed Carmina/ nayana [phone] Wanting to speak with nursing about her father Ludwig Fishman RN 04/14/2025 4:46 PM Signed This RN placed call the pt daughter, Carmina, and relayed TW message below, verbatim. Pt will increase trazodone to 1.5 tablets (150 mg) per TW suggestion. See attached script for signature. As for the MRI completed in 01/2024, the family does not feel that the memory loss (she mentions Alzheimer's Disease) was discussed at all, unlike the PD and feel that dementia is not the case. This RN not sure where this came from as it is not mentioned in the notes reviewed. Just says major neurocognitive disorder. Family does not believe the diagnosis and this is why they requested a PET scan. This RN did relay the findings and per MQ note, the severe microvascular changes were discussed, but the patient appeared to be neurologically intact at that time from the office visit notes. Carmina does have questions as to why a PET scan would not be advisable at this time? This RN states that neurospych testing is the next step. We need this piece to determine if further testing is warranted. Neuropsych testing will either indicates or not indication potential cognitive impairment and may warrant further investigation, Typically, imaging also requires a visit as well to present to insurance as evidence (LOMN). Carmina verbalizes understanding. She has a lot more questionos, but this RN states that the amount and complexity of the questions need to be addressed in an office visit. This RN is not qualified to answer them in depth. She placed her father on wait list for a sooner appointment. Did relay that TW would like to hold off on adding another medication for anxiety since trazodone can help mood and the donepezil were going to be starting next can help some behavioral issues. Carmina agrees with this plan. We ended call pleasantly. DIANE Trejo, RN, BA Ludwig Fishman RN 04/14/2025 4:46 PM Signed Addended by: LUDWIG FISHMAN on: 04/14/2025 04:46 PM Modules accepted: Orders Miranda Del Rio MD 04/17/2025 10:24 AM Signed Addended by: MIRANDA DEL RIO on: 04/17/2025 10:24 AM Modules accepted: Orders Allergies As of Date: 04/06/2025 Noted Allergy Reaction ACETAMINOPHEN 04/23/2023 8 - GI Upset HYDROCODONE 04/23/2023 8 - GI Upset TRAMADOL 04/23/2023 8 - GI Upset VICODIN (HYDROCODONE-ACETAMINOPHE*12/08/2023 8 - GI Upset Date Reviewed: 03/27/2025 Reviewed by: Marcell Valadez RN - Fully Assessed Reason for Visit: Orders [681] Patient Question [4075] Visit Diagnosis:Insomnia, unspecified type [G47.00] Order(s):traZODone (DESYREL) 150 mg tabletTake 1 tablet by mouth daily at bedtime.Disp: 30 tabletRfl: 5 Prescriptions as of 04/17/2025 - traZODone (DESYREL) 150 mg tablet Take 1 tablet by mouth daily at bedtime. - donepezil (ARICEPT) 10 mg tablet After on trazodone for 2 weeks, start 1/2 pill once a day for 1 month then increase to a full pill once a day thereafter. - oxybutynin ER (DITROPAN XL) 10 mg 24 hr tablet Take 1 tablet by mouth once daily. - atorvastatin (LIPITOR) 20 mg tablet TAKE 1 TABLET BY MOUTH ONCE DAILY AT BEDTIME - dapagliflozin propanediol (FARXIGA) 10 mg tablet Take 1 tablet by mouth daily with breakfast. - carbidopa-levodopa (SINEMET 25-100) 25-100 mg per tablet Take 2 tablets by mouth three times a day. - acetaminophen (TYLENOL) 500 mg tablet Take 2 tablets by mouth every 8 hours. - tamsulosin (FLOMAX) 0.4 mg Take 1 capsule by mouth once daily. - pantoprazole DR (PROTONIX) 40 mg tablet Take 1 tablet by mouth two times a day before meals at 6 am and 4 pm. - senna-docusate (SENNA-S) 8.6-50 mg per tablet Take 1 tablet by mouth two times a day. - lisinopril (ZESTRIL) 10 mg tablet Take 1 tablet by mouth once daily. - polyethylene glycol 3350 17 gram packet Take 1 Packet by mouth two times a day. Dissolve dose in 4 - 8 ounces of liquid and take as directed. - spironolactone (ALDACTONE) 25 mg tablet Take 1 tablet by mouth once daily. - aspirin 81 mg cap Take 81 mg by mouth once daily. - iv contrast (will be provided with radiology test) CTA Head/Neck W No IV access, insert saline lock prior to the sedation, infusion, injection for imaging exam. Discontinue saline lock post exam. If Pt. has a central line or IVAD, may access for administration according to line specific nursing protocol. Once exam is complete flush line and de-access according to line specific nursing protocol in the CT contrast administration guidelines link. - cloNIDine HCl (CATAPRES) 0.2 mg tablet Take 0.2 mg by mouth two times a day. - citalopram (CELEXA) 40 mg tablet Take 40 mg by mouth once daily. 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/18/2024 Chronic bilateral low back pain with bilateral *04/18/2024 Parkinson's disease with dyskinesia (HCC) [G20.*04/18/2024 Aftercare [Z51.89] 06/29/2024 Status post total left knee replacement [Z96.65*06/29/2024 YUMIKO (acute kidney injury) (HCC) [N17.9] 06/30/2024 07/05/2024 Acute urinary retention [R33.8] 06/30/2024 07/13/2024 Malnutrition of mild degree (HCC) [E44.1] 07/01/2024 07/13/2024 Nausea and vomiting [R11.2] 07/03/2024 07/13/2024 UTI (urinary tract infection) [N39.0] 07/03/2024 07/05/2024 UTI (urinary tract infection) [N39.0] 07/06/2024 07/13/2024 YUMIKO (acute kidney injury) (HCC) [N17.9] 07/06/2024 07/13/2024 Hypotension [I95.9] 07/06/2024 07/13/2024 Prescriptions ordered this encounter Disp Refills Start End TRAZODONE 150 MG TABLET 30 t* 5 04/17/2025 10/14/2025 Route: PO Sig: Take 1 tablet by mouth daily at bedtime. Medications Discontinued During This Encounter Prescriptions - traZODone (DESYREL) 100 mg tablet (Discontinued) Take 1/2 pill once a day for 10 days then increase to a full pill thereafter Encounter Status:Closed by MIRANDA DEL RIO on 04/10/25 MRI LUMBAR SPINE WO IVCON Observed: 03/06 4:15 PM Status: F Source: [facility] * * *Final Report* * * DATE OF EXAM: Mar 27 2025 4:15PM WR [id number] - MRI LUMBAR SPINE WO IVCON / PROCEDURE REASON: multiple diagnoses * * * * Physician Interpretation * * * * EXAMINATION: MRI LUMBAR SPINE WO IVCON CLINICAL HISTORY: Chronic midline low back and bilateral lower extremity pain with neurogenic claudication, lower extremity weakness and falls. TECHNIQUE: Routine lumbosacral spine MR protocol without gadolinium. MQ: [id number] COMPARISON: 07/13/2023 RESULT: Counting reference: Lumbosacral junction. For the purposes of this report, L4-5 is considered the level of the iliac crest and assume there are 5 lumbar-type vertebrae. Anatomic variant: None. Localizer images: Well-defined T2 hyperintense foci are noted in the liver and left kidney on the svp of digital images, likely representing cysts. Alignment: Again noted is straightening of the normal lumbar lordosis. Severe disc space narrowing is again noted at L4-5 and L5-S1, moderate disc space narrowing is noted at T11-12 and T12-L1, moderate disc space narrowing is noted at L3-4 and mild disc space narrowing is noted at L2-3. Bone marrow signal/fracture: No evidence of pathologic marrow infiltration. There is mild wedge deformity of the T12 vertebral body with normal signal intensity characteristics of the marrow suggesting a subtle remote benign compression fracture. Conus: The conus is within normal limits of signal intensity and morphology. Paraspinal soft tissues: Again noted is prominent epidural fat contributing to relative narrowing of the thecal sac at L2-3 through L4-5. Lower thoracic spine: Visualized lower thoracic canal and foramina are patent. L1-L2: Right lateral osteophyte formation in the foraminal and extraforaminal zones that may impinge on the right L1 nerve root sleeve laterally. The canal and left neural foramen are patent. No significant change. L2-L3: Minimal disc bulging and mild facet degenerative change without significant canal stenosis. Mild right bony foraminal stenosis. No significant change. L3-L4: Mild disc osteophyte complex, facet degenerative change and developmentally short pedicles cause severe canal stenosis, right subarticular recess stenosis, and mild to moderate bilateral foraminal stenosis. No significant change. L4-L5: Mild disc osteophyte complex and facet degenerative change without significant canal stenosis. Facet degenerative change, rostrocaudal facet subluxation and developmentally short pedicles cause moderate right and moderate to severe left foraminal stenosis. No significant change. L5-S1: Mild disc osteophyte complex abutting the exiting S1 nerve root sleeves. No impact on the thecal sac. Facet degenerative change, rostrocaudal facet subluxation and developmentally short pedicles cause moderate left and moderate to severe right foraminal stenosis. No significant change. Sacrum and iliac wings: Partial fusion of the left SI joint. Mild degenerative changes in the visualized right SI joint. IMPRESSION: Severe canal, right subarticular recess and mild to moderate bony foraminal stenosis at L3-4. Multilevel bony foraminal narrowing as detailed above. Stable appearance of the lumbosacral spine since 07/13/2023. Anatomic Lumbar Variant: None. L4-5 is considered the level of the iliac crest and assume there are 5 lumbar-type vertebrae. Director Occupational: [employer] Transcribe Date/Time: Mar 27 2025 4:30P Dictated by : LORENZO NERI MD This examination was interpreted and the report reviewed and electronically signed by: LORENZO NERI MD on Mar 27 2025 4:45PM EST [id number] PROGRESS Observed: 03/27/2025 4:00 PM Status: COMPLETED Source: [facility] ID: [id number] Author: LIDA ALBARRAN RT(R) Service: ? Author Type: Technologist Type: Progress Notes Filed: 03/27/2025 15:54 Note Text: Radiology Service Progress Note PATIENT NAME: Nick Arora DATE OF SERVICE: March 27, 2025 TIME: 3:53 PM PATIENT IDENTITY VERIFICATION COMPLETED USING TWO (2) IDENTIFIERS: Name and Date of confirmed by patient verbally. FALL SCREENING: Has the patient had 2 falls in the last year or 1 fall with injury or currently using an Ambulatory Assistive Device (Walker, Cane, Wheelchair, Crutches, etc.)? No PATIENT GENDER DATA: Assigned male at PATIENT RELEVANT IMPLANT DATA REVIEWED: Yes PATIENT PRESENTS WITH AN IMPLANTABLE OR ATTACHED TRAILER STEERER: No RADIOLOGY DEPARTMENT: MR; Exam(s) Completed: Spine: Lumbar spine. Aromatherapy Administered: No PERIPHERAL IV DATA: Not applicable SIGNED BY: Maravalerie Albarran, RT(R) March 27, 2025 3:53 PM PROGRESS Observed: 03/27/2025 1:10 PM Status: COMPLETED Source: [facility] HNO ID: [id number] Author: KATE AGUDELO, ? Service: ? Author Type: Physician Type: Progress Notes Filed: 03/27/2025 13:26 Note Text: Last saw pcp: 02/06/25 Subjective: This 65 year old male presents to clinic for diabetic foot check. Patient has the following complaints: right foot. Patient states he is having pain to the right foot , mostly to the lateral aspect of his right foot. He states the pain has been going on for a few days. Apparently had xrays at [facility] and were negative. He was given a muscle relaxer but he did not get filled. Patient admits to being diabetic for multiple years now. Patient -B/T/N in feet at this time. Patient -pain in legs when walking. No other pedal complaints at this time. Reports pain in toenails No change in medications or medical history since last visit. PAIN EVALUATION No data found in the last 1 encounters. Hemoglobin A1C (%) Date Value 01/23/2025 6.4 08/08/2024 5.6 02/26/2024 6.4 PCP: Aga Benitez MD PAST MEDICAL HISTORY Diagnosis Date Anxiety and depression BPH (benign prostatic hyperplasia) Congestive heart failure (HCC) Diabetes (HCC) Dyslipidemia Hypertension Kidney stone Spinal stenosis TIA (transient ischemic attack) Tremor Current Outpatient Medications Medication Sig traZODone (DESYREL) 100 mg tablet Take 1/2 pill once a day for 10 days then increase to a full pill thereafter donepezil (ARICEPT) 10 mg tablet After on trazodone for 2 weeks, start 1/2 pill once a day for 1 month then increase to a full pill once a day thereafter. oxybutynin ER (DITROPAN XL) 10 mg 24 hr tablet Take 1 tablet by mouth once daily. atorvastatin (LIPITOR) 20 mg tablet TAKE 1 TABLET BY MOUTH ONCE DAILY AT BEDTIME dapagliflozin propanediol (FARXIGA) 10 mg tablet Take 1 tablet by mouth daily with breakfast. carbidopa-levodopa (SINEMET 25-100) 25-100 mg per tablet Take 2 tablets by mouth three times a day. acetaminophen (TYLENOL) 500 mg tablet Take 2 tablets by mouth every 8 hours. tamsulosin (FLOMAX) 0.4 mg Take 1 capsule by mouth once daily. (Patient not taking: Reported on 03/27/2025) pantoprazole DR (PROTONIX) 40 mg tablet Take 1 tablet by mouth two times a day before meals at 6 am and 4 pm. senna-docusate (SENNA-S) 8.6-50 mg per tablet Take 1 tablet by mouth two times a day. lisinopril (ZESTRIL) 10 mg tablet Take 1 tablet by mouth once daily. polyethylene glycol 3350 17 gram packet Take 1 Packet by mouth two times a day. Dissolve dose in 4 - 8 ounces of liquid and take as directed. spironolactone (ALDACTONE) 25 mg tablet Take 1 tablet by mouth once daily. aspirin 81 mg cap Take 81 mg by mouth once daily. iv contrast (will be provided with radiology test) CTA Head/Neck W No IV access, insert saline lock prior to the sedation, infusion, injection for imaging exam. Discontinue saline lock post exam. If Pt. has a central line or IVAD, may access for administration according to line specific nursing protocol. Once exam is complete flush line and de-access according to line specific nursing protocol in the CT contrast administration guidelines link. cloNIDine HCl (CATAPRES) 0.2 mg tablet Take 0.2 mg by mouth two times a day. citalopram (CELEXA) 40 mg tablet Take 40 mg by mouth once daily. No current facility-administered medications for this visit. ALLERGIES Allergen Reactions Acetaminophen GI Upset Hydrocodone GI Upset Tramadol GI Upset Vicodin [Hydrocodon* GI Upset PAST SURGICAL HISTORY Procedure Laterality Date TOTAL KNEE REPLACEMENT Left 06/2024 FAMILY HISTORY Problem Relation Age of Onset Sudden Cardiac Father advanced age at 90 yo other (HTN) Father Cancer Mother Diabetes Mother other (HTN) Mother Stroke Mother Diabetes Sister other (DM) Sister other (HTN) Sister other (diabetic retinopathy) Sister Cancer Brother colon cancer , stomach cancer other (dm) Brother Stroke Brother Social History Tobacco Use Smoking status: Never Smokeless tobacco: Never Vaping Use Vaping status: Never Used Substance Use Topics Alcohol use: Not Currently Comment: none now Drug use: Never REVIEW OF SYSTEMS GENERAL: Negative for Malaise, significant weight loss, fever RESPIRATORY: Negative for cough, wheezing and shortness of breath CARDIOVASCULAR: Negative for chest pain, leg swelling and palpitations GI: Negative for abdominal discomfort, blood in stools or black stools and change in bowel habits : Negative for dysuria, frequency and incontinence MUSCULOSKELETAL: Negative for joint pain or swelling, back pain, and muscle pain. SKIN: Negative for lesions, rash, and itching. HEMATOLOGY/LYMPHOLOGY Negative for prolonged bleeding, bruising easily, and swollen nodes. ENDOCRINE: Negative for cold or heat intolerance, polyuria, polydipsia and goiter. NEURO: negative The remainder of the review of systems is noncontributory. Objective: Patient presents to clinic ambulating in [facility] Constitutional: Pt is a well developed 65 year old male who is alert, oriented, cooperative and in no apparent distress. Eyes: Following during examination. No redness or drainage. Respiratory: RR normal and nonlabored. Even breathing. No evidence of distress. Psychology: Patient is engaged during conversation. Normal affect and mood. Does not appear depressed or anxious. Vasc: DP and PT pulses are nonpalpable bilateral. CFT is less than 5 seconds bilateral. Skin temperature is warm to cool proximal to distal bilateral. There is moderate edema or varicosities noted. Hair growth absent. Neuro: Protective sensation is decreased to the foot and toes when tested with the 5.07 SWM bilateral. Vibratory sensation is absent at the hallux bilateral. + Significant neurological defecits. Derm: Inspection and palpation performed. Nails 1-5 b/l are painful, discolored-yellow, thick, crumbly, dystrophic and with subungal debris. Skin is of normal turgor and texture. Hyperkeratosis noted to not present. NO ulcerations, scars, verruca or other lesions noted. Ortho: Ankle joint DF is decreased with the knee extended and decreased with knee flexed. No pain or crepitus noted. STJ, MTJ ROM are full and free of pain or crepitus. Muscle strength is 5/5 for dorsiflexors, plantarflexors, inverters, everters. 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 Assessment: (E11.42) Diabetic polyneuropathy associated with type 2 diabetes mellitus (HCC) (primary encounter diagnosis) (B35.1) Onychomycosis (M79.674) Pain in toe of right foot (M79.675) Pain in toe of left foot (L60.0) Ingrowing toenail (R09.89) Diminished pulses in lower extremity Plan: 1. Patient was seen and evaluated. 2. Patient was instructed on the continued importance of diabetic foot care along with proper diet and keeping their blood sugar under control to prevent complications. I stressed the importance of avoiding barefoot walking, wearing good shoes and inspection of feet. Instructions given both oral and written. 3. Discussed foot pain. R ecommend wearing good supportive shoes, ie hoka, loco or asics. Xrays taken on March 13 at [facility] were negative for fracture. If pain fails to improve, consider boot. Patient declined boot today. 4. Toenails 1-5 b/l debrided in length and thickness. Discussed toenail removal. Needs pvr prior. 5. F/u in 3 months or sooner if problems arise Kate Agudelo DPM PROGRESS Observed: 03/27/2025 1:02 PM Status: COMPLETED Source: [facility] HNO ID: [id number] Author: MARCELL VALADEZ, JASON Service: ? Author Type: Registered Nurse Type: Progress Notes Filed: 03/27/2025 13:26 Note Text: Patient presents with: Left Foot - Established Patient, Follow Up, Diabetic Foot Check Right Foot - Established Patient, Follow Up, Diabetic Foot Check Patient presents for follow up diabetic foot/nail care. Also due for diabetic foot check. 10/20/24 CNOV Observed: 03/27/2025 1:00 PM Status: COMPLETED Source: [facility] Office Visit (PODIWS) NICK ARORA ([id number]) 1960 M Date Time Provider Department 03/27/25 1:00 PM KATE AGUDELO During your visit today, we recorded the following information about you: Marcell Valadez, RN 03/27/2025 1:26 PM Signed Patient presents with: Left Foot - Established Patient, Follow Up, Diabetic Foot Check Right Foot - Established Patient, Follow Up, Diabetic Foot Check Patient presents for follow up diabetic foot/nail care. Also due for diabetic foot check. LOV10/20/24 Kate Agudelo 03/27/2025 1:26 PM Signed Last saw pcp: 02/06/25 Subjective: This 65 year old male presents to clinic for diabetic foot check. Patient has the following complaints: right foot. Patient states he is having pain to the right foot , mostly to the lateral aspect of his right foot. He states the pain has been going on for a few days. Apparently had xrays at [facility] and were negative. He was given a muscle relaxer but he did not get filled. Patient admits to being diabetic for multiple years now. Patient -B/T/N in feet at this time. Patient -pain in legs when walking. No other pedal complaints at this time. Reports pain in toenails No change in medications or medical history since last visit. PAIN EVALUATION No data found in the last 1 encounters. Hemoglobin A1C (%) Date Value 01/23/2025 6.4 08/08/2024 5.6 02/26/2024 6.4 PCP: Aga Benitez MD PAST MEDICAL HISTORY Diagnosis Date Anxiety and depression BPH (benign prostatic hyperplasia) Congestive heart failure (HCC) Diabetes (HCC) Dyslipidemia Hypertension Kidney stone Spinal stenosis TIA (transient ischemic attack) Tremor Current Outpatient Medications Medication Sig traZODone (DESYREL) 100 mg tablet Take 1/2 pill once a day for 10 days then increase to a full pill thereafter donepezil (ARICEPT) 10 mg tablet After on trazodone for 2 weeks, start 1/2 pill once a day for 1 month then increase to a full pill once a day thereafter. oxybutynin ER (DITROPAN XL) 10 mg 24 hr tablet Take 1 tablet by mouth once daily. atorvastatin (LIPITOR) 20 mg tablet TAKE 1 TABLET BY MOUTH ONCE DAILY AT BEDTIME dapagliflozin propanediol (FARXIGA) 10 mg tablet Take 1 tablet by mouth daily with breakfast. carbidopa-levodopa (SINEMET 25-100) 25-100 mg per tablet Take 2 tablets by mouth three times a day. acetaminophen (TYLENOL) 500 mg tablet Take 2 tablets by mouth every 8 hours. tamsulosin (FLOMAX) 0.4 mg Take 1 capsule by mouth once daily. (Patient not taking: Reported on 03/27/2025) pantoprazole DR (PROTONIX) 40 mg tablet Take 1 tablet by mouth two times a day before meals at 6 am and 4 pm. senna-docusate (SENNA-S) 8.6-50 mg per tablet Take 1 tablet by mouth two times a day. lisinopril (ZESTRIL) 10 mg tablet Take 1 tablet by mouth once daily. polyethylene glycol 3350 17 gram packet Take 1 Packet by mouth two times a day. Dissolve dose in 4 - 8 ounces of liquid and take as directed. spironolactone (ALDACTONE) 25 mg tablet Take 1 tablet by mouth once daily. aspirin 81 mg cap Take 81 mg by mouth once daily. iv contrast (will be provided with radiology test) CTA Head/Neck W No IV access, insert saline lock prior to the sedation, infusion, injection for imaging exam. Discontinue saline lock post exam. If Pt. has a central line or IVAD, may access for administration according to line specific nursing protocol. Once exam is complete flush line and de-access according to line specific nursing protocol in the CT contrast administration guidelines link. cloNIDine HCl (CATAPRES) 0.2 mg tablet Take 0.2 mg by mouth two times a day. citalopram (CELEXA) 40 mg tablet Take 40 mg by mouth once daily. No current facility-administered medications for this visit. ALLERGIES Allergen Reactions Acetaminophen GI Upset Hydrocodone GI Upset Tramadol GI Upset Vicodin [Hydrocodon* GI Upset PAST SURGICAL HISTORY Procedure Laterality Date TOTAL KNEE REPLACEMENT Left 06/2024 FAMILY HISTORY Problem Relation Age of Onset Sudden Cardiac Father advanced age at 90 yo other (HTN) Father Cancer Mother Diabetes Mother other (HTN) Mother Stroke Mother Diabetes Sister other (DM) Sister other (HTN) Sister other (diabetic retinopathy) Sister Cancer Brother colon cancer , stomach cancer other (dm) Brother Stroke Brother Social History Tobacco Use Smoking status: Never Smokeless tobacco: Never Vaping Use Vaping status: Never Used Substance Use Topics Alcohol use: Not Currently Comment: none now Drug use: Never REVIEW OF SYSTEMS GENERAL: Negative for Malaise, significant weight loss, fever RESPIRATORY: Negative for cough, wheezing and shortness of breath CARDIOVASCULAR: Negative for chest pain, leg swelling and palpitations GI: Negative for abdominal discomfort, blood in stools or black stools and change in bowel habits : Negative for dysuria, frequency and incontinence MUSCULOSKELETAL: Negative for joint pain or swelling, back pain, and muscle pain. SKIN: Negative for lesions, rash, and itching. HEMATOLOGY/LYMPHOLOGY Negative for prolonged bleeding, bruising easily, and swollen nodes. ENDOCRINE: Negative for cold or heat intolerance, polyuria, polydipsia and goiter. NEURO: negative The remainder of the review of systems is noncontributory. Objective: Patient presents to clinic ambulating in [facility] Constitutional: Pt is a well developed 65 year old male who is alert, oriented, cooperative and in no apparent distress. Eyes: Following during examination. No redness or drainage. Respiratory: RR normal and nonlabored. Even breathing. No evidence of distress. Psychology: Patient is engaged during conversation. Normal affect and mood. Does not appear depressed or anxious. Vasc: DP and PT pulses are nonpalpable bilateral. CFT is less than 5 seconds bilateral. Skin temperature is warm to cool proximal to distal bilateral. There is moderate edema or varicosities noted. Hair growth absent. Neuro: Protective sensation is decreased to the foot and toes when tested with the 5.07 SWM bilateral. Vibratory sensation is absent at the hallux bilateral. + Significant neurological defecits. Derm: Inspection and palpation performed. Nails 1-5 b/l are painful, discolored-yellow, thick, crumbly, dystrophic and with subungal debris. Skin is of normal turgor and texture. Hyperkeratosis noted to not present. NO ulcerations, scars, verruca or other lesions noted. Ortho: Ankle joint DF is decreased with the knee extended and decreased with knee flexed. No pain or crepitus noted. STJ, MTJ ROM are full and free of pain or crepitus. Muscle strength is 5/5 for dorsiflexors, plantarflexors, inverters, everters. 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 Assessment: (E11.42) Diabetic polyneuropathy associated with type 2 diabetes mellitus (HCC) (primary encounter diagnosis) (B35.1) Onychomycosis (M79.674) Pain in toe of right foot (M79.675) Pain in toe of left foot (L60.0) Ingrowing toenail (R09.89) Diminished pulses in lower extremity Plan: 1. Patient was seen and evaluated. 2. Patient was instructed on the continued importance of diabetic foot care along with proper diet and keeping their blood sugar under control to prevent complications. I stressed the importance of avoiding barefoot walking, wearing good shoes and inspection of feet. Instructions given both oral and written. 3. Discussed foot pain. R ecommend wearing good supportive shoes, ie hoka, loco or asics. Xrays taken on March 13 at [facility] were negative for fracture. If pain fails to improve, consider boot. Patient declined boot today. 4. Toenails 1-5 b/l debrided in length and thickness. Discussed toenail removal. Needs pvr prior. 5. F/u in 3 months or sooner if problems arise ALICE Wang Matthew 03/27/2025 1:23 PM Signed Diabetes Foot Care Instructions When you have diabetes, proper foot care is very important. Poor foot care may lead to amputation of a foot or leg. As a person with diabetes, you are more vulnerable to foot problems, because diabetes can damage your nerves and reduce blood flow to your feet. Here are some diabetes foot care tips to follow: Wash and Dry Your Feet Daily Use mild soaps Use warm water Pat your skin dry; do not rub. Thoroughly dry your feet. After washing, use lotion on your feet to prevent cracking. Do not put lotion between your toes. Examine Your Feet Each Day Check the tops and bottoms of your feet. Have someone else look at your feet if you cannot see them. Check for dry, cracked skin. Look for blisters, cuts, scratches, or other sores. Check for redness, increased warmth, or tenderness when touching any area of your feet. Check for ingrown toenails, corns, and calluses. If you get a blister or sore from your shoes, do not pop it. Apply a bandage and wear a different pair of shoes. Take Care of Your Toenails Cut toenails after bathing, when they are soft. Cut toenails straight across and smooth with a nail file. Avoid cutting into the corners of toes. Do not cut cuticles. If you have neuropathy (or decreased sensation in your feet) a upkeep worker should always cut your toenails. Be Careful When Exercising Walk and exercise in comfortable shoes. Do not exercise when you have open sores on your feet. Protect Your Feet With Shoes and Socks Never go barefoot. Always protect your feet by wearing shoes or hard-soled slippers or footwear. Avoid shoes with high heels and pointed toes. Avoid shoes that expose your toes or heels (such as open-toed shoes or sandals). These types of shoes increase your risk for injury and potential infections. Try on new footwear with the type of socks you usually wear. Do not wear new shoes for more than an hour at a time. Change your socks daily. Look and feel inside your shoes before putting them on to make sure there are no foreign objects or rough areas. Avoid tight socks. Wear natural-fiber socks (cotton, wool, or a cotton-wool blend). Wear special shoes if your health care provider recommends them. Wear shoes/boots that will protect your feet from various weather conditions (cold, moisture, etc.). Make sure your shoes fit properly. If you have neuropathy (nerve damage), you may not notice that your shoes are too tight. Perform the footwear test described below. Footwear Test Use this simple test to see if your shoes fit correctly: Stand on a piece of paper. (Make sure you are standing and not sitting, because your foot changes shape when you stand.) Trace the outline of your foot. Trace the outline of your shoe. Compare the tracings: Is the shoe too narrow? Is your foot crammed into the shoe? The shoe should be at least 1/2 inch longer than your longest toe and as wide as your foot. Proper Shoe Choices The following types of shoes are best for people with diabetes Closed toes and heels Leather uppers without a seam inside At least 1/2 inch extra space at the end of your longest toe Inside of shoe should be soft with no rough areas Outer sole should be made of stiff material Shoes should be at least as wide as your feet Tips for Foot Care in Diabetes Don't wait to treat a minor foot problem if you have diabetes. Follow your health care provider's guidelines and first aid guidelines. Report foot injuries and infections to your health care provider immediately. Check water temperature with your elbow, not your foot. Do not use a heating pad on your feet. Do not cross your legs. Do not self-treat your corns, calluses, or other foot problems. Go to your health care provider or upkeep worker to treat these conditions. Referring Provider: TAMMI GARCIA [[id number]] Allergies As of Date: 03/27/2025 Noted Allergy Reaction ACETAMINOPHEN 04/23/2023 8 - GI Upset HYDROCODONE 04/23/2023 8 - GI Upset TRAMADOL 04/23/2023 8 - GI Upset VICODIN (HYDROCODONE-ACETAMINOPHE*12/08/2023 8 - GI Upset Date Reviewed: 03/27/2025 Reviewed by: Marcell Valadez, RN - Fully Assessed Reason for Visit: Established Patient [175] Follow Up [171] Diabetic Foot Check [762] Established Patient [175] Follow Up [171] Diabetic Foot Check [762] Primary Visit Diagnosis:Diabetic polyneuropathy associated with type 2 diabetes mellitus (HCC) [E11.42] Other Visit Diagnoses:Onychomycosis [B35.1] Pain in toe of right foot [M79.674] Pain in toe of left foot [M79.675] Ingrowing toenail [L60.0] Diminished pulses in lower extremity [R09.89] Order(s):[facility] [[id number]] Order #: [id number] FUTURE Prescriptions as of 03/27/2025 - traZODone (DESYREL) 100 mg tablet Take 1/2 pill once a day for 10 days then increase to a full pill thereafter - donepezil (ARICEPT) 10 mg tablet After on trazodone for 2 weeks, start 1/2 pill once a day for 1 month then increase to a full pill once a day thereafter. - oxybutynin ER (DITROPAN XL) 10 mg 24 hr tablet Take 1 tablet by mouth once daily. - atorvastatin (LIPITOR) 20 mg tablet TAKE 1 TABLET BY MOUTH ONCE DAILY AT BEDTIME - dapagliflozin propanediol (FARXIGA) 10 mg tablet Take 1 tablet by mouth daily with breakfast. - carbidopa-levodopa (SINEMET 25-100) 25-100 mg per tablet Take 2 tablets by mouth three times a day. - acetaminophen (TYLENOL) 500 mg tablet Take 2 tablets by mouth every 8 hours. - tamsulosin (FLOMAX) 0.4 mg Take 1 capsule by mouth once daily. - pantoprazole DR (PROTONIX) 40 mg tablet Take 1 tablet by mouth two times a day before meals at 6 am and 4 pm. - senna-docusate (SENNA-S) 8.6-50 mg per tablet Take 1 tablet by mouth two times a day. - lisinopril (ZESTRIL) 10 mg tablet Take 1 tablet by mouth once daily. - polyethylene glycol 3350 17 gram packet Take 1 Packet by mouth two times a day. Dissolve dose in 4 - 8 ounces of liquid and take as directed. - spironolactone (ALDACTONE) 25 mg tablet Take 1 tablet by mouth once daily. - aspirin 81 mg cap Take 81 mg by mouth once daily. - iv contrast (will be provided with radiology test) CTA Head/Neck W No IV access, insert saline lock prior to the sedation, infusion, injection for imaging exam. Discontinue saline lock post exam. If Pt. has a central line or IVAD, may access for administration according to line specific nursing protocol. Once exam is complete flush line and de-access according to line specific nursing protocol in the CT contrast administration guidelines link. - cloNIDine HCl (CATAPRES) 0.2 mg tablet Take 0.2 mg by mouth two times a day. - citalopram (CELEXA) 40 mg tablet Take 40 mg by mouth once daily. 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/18/2024 Chronic bilateral low back pain with bilateral *04/18/2024 Parkinson's disease with dyskinesia (HCC) [G20.*04/18/2024 Aftercare [Z51.89] 06/29/2024 Status post total left knee replacement [Z96.65*06/29/2024 YUMIKO (acute kidney injury) (HCC) [N17.9] 06/30/2024 07/05/2024 Acute urinary retention [R33.8] 06/30/2024 07/13/2024 Malnutrition of mild degree (HCC) [E44.1] 07/01/2024 07/13/2024 Nausea and vomiting [R11.2] 07/03/2024 07/13/2024 UTI (urinary tract infection) [N39.0] 07/03/2024 07/05/2024 UTI (urinary tract infection) [N39.0] 07/06/2024 07/13/2024 YUMIKO (acute kidney injury) (HCC) [N17.9] 07/06/2024 07/13/2024 Hypotension [I95.9] 07/06/2024 07/13/2024 Other instructions from your clinician: Diabetes Foot Care Instructions When you have diabetes, proper foot care is very important. Poor foot care may lead to amputation of a foot or leg. As a person with diabetes, you are more vulnerable to foot problems, because diabetes can damage your nerves and reduce blood flow to your feet. Here are some diabetes foot care tips to follow: Wash and Dry Your Feet Daily Use mild soaps Use warm water Pat your skin dry; do not rub. Thoroughly dry your feet. After washing, use lotion on your feet to prevent cracking. Do not put lotion between your toes. Examine Your Feet Each Day Check the tops and bottoms of your feet. Have someone else look at your feet if you cannot see them. Check for dry, cracked skin. Look for blisters, cuts, scratches, or other sores. Check for redness, increased warmth, or tenderness when touching any area of your feet. Check for ingrown toenails, corns, and calluses. If you get a blister or sore from your shoes, do not pop it. Apply a bandage and wear a different pair of shoes. Take Care of Your Toenails Cut toenails after bathing, when they are soft. Cut toenails straight across and smooth with a nail file. Avoid cutting into the corners of toes. Do not cut cuticles. If you have neuropathy (or decreased sensation in your feet) a upkeep worker should always cut your toenails. Be Careful When Exercising Walk and exercise in comfortable shoes. Do not exercise when you have open sores on your feet. Protect Your Feet With Shoes and Socks Never go barefoot. Always protect your feet by wearing shoes or hard-soled slippers or footwear. Avoid shoes with high heels and pointed toes. Avoid shoes that expose your toes or heels (such as open-toed shoes or sandals). These types of shoes increase your risk for injury and potential infections. Try on new footwear with the type of socks you usually wear. Do not wear new shoes for more than an hour at a time. Change your socks daily. Look and feel inside your shoes before putting them on to make sure there are no foreign objects or rough areas. Avoid tight socks. Wear natural-fiber socks (cotton, wool, or a cotton-wool blend). Wear special shoes if your health care provider recommends them. Wear shoes/boots that will protect your feet from various weather conditions (cold, moisture, etc.). Make sure your shoes fit properly. If you have neuropathy (nerve damage), you may not notice that your shoes are too tight. Perform the footwear test described below. Footwear Test Use this simple test to see if your shoes fit correctly: Stand on a piece of paper. (Make sure you are standing and not sitting, because your foot changes shape when you stand.) Trace the outline of your foot. Trace the outline of your shoe. Compare the tracings: Is the shoe too narrow? Is your foot crammed into the shoe? The shoe should be at least 1/2 inch longer than your longest toe and as wide as your foot. Proper Shoe Choices The following types of shoes are best for people with diabetes Closed toes and heels Leather uppers without a seam inside At least 1/2 inch extra space at the end of your longest toe Inside of shoe should be soft with no rough areas Outer sole should be made of stiff material Shoes should be at least as wide as your feet Tips for Foot Care in Diabetes Don't wait to treat a minor foot problem if you have diabetes. Follow your health care provider's guidelines and first aid guidelines. Report foot injuries and infections to your health care provider immediately. Check water temperature with your elbow, not your foot. Do not use a heating pad on your feet. Do not cross your legs. Do not self-treat your corns, calluses, or other foot problems. Go to your health care provider or upkeep worker to treat these conditions. Encounter Status:Closed by KATE AGUDELO DPM on 03/27/25 IKE Observed: 03/27/2025 10:00 AM Status: COMPLETED Source: [facility] Office Visit ([facility]) NICK ARORA ([id number]) 1960 M Date Time Provider Department 03/27/25 10:00 AM MIRANDA DEL RIO [facility] During your visit today, we recorded the following information about you: Pulse Blood pressure Weight 63/minute 108/72 92.4 kg Miranda Del Rio MD 04/16/2025 11:03 PM Signed FOLLOW UP NOTE Subjective Nick Arora is a 65 year old male who presents for follow up. Here with his son-in-law Dank. CC: PD Summary of prior care: 04/2024 right-handed male with a history of heart failure, DM, HTN, anxiety / depression and tremor who presents for evaluation of parkinsonism. His examination demonstrates R>L parkinsonism. His presentation is c/w PD. I don't think he needs primidone or propranolol for tremor, rather would be managed with carbidopa/levodopa. Will start by having him taper off primidone. I double checked with his case management associate who did not feel propranolol currently needed for his heart health, will taper this off after he is off primidone. Once he is off both medications, he can start carbidopa/levodopa titrating to 1 pill TID. Discussed side effects. 08/2024 fine off primidone / propranolol, mild levodopa benefit, increase to 200 TID, t/c donepezil next, constipation measures. HPI Current Issues - Up to 2 pills TID, unclear benefit - No peak or wear OFF - No side effects, maybe initially some weird dreams - Can do things for around 15-30 minutes, then has pain in the right foot and low back - Daughter notes tremor worse, present when foot on brake (sees it wavering), constant while seated - Able to button buttons, took out shoelaces - Sees podiatry who had suggest a nerve test - Itching at the bottom of both feet. DM was bad for a while. - Milk of magnesia daily and if takes it will go every 1-2 days. Had miralax in the past unclear if was tried - Doesn't drink much water - Drinks 3-4 cans of DMD a day (54 mg caffeine per can) - Short term memory isn't great. Daughter notes that he has asked 10 times what they are doing here today, thought here for his MRI. Daughter notes gets confused and agitated at times. Daughter notes has almost sundowning type of issues - gets agitated, stays up all night. He will wake up at night and hear people outside. Bad fall at night while awake. Confusion seems to come and go. - Taking Z-quil nightly - On oxybutynin but having dry mouth - Urination is good right now but was Cd/ld 25/100 2 pills @ 9, 14-5, -0200 Current Outpatient Medications Medication Sig Dispense Refill oxybutynin ER (DITROPAN XL) 10 mg 24 hr tablet Take 1 tablet by mouth once daily. atorvastatin (LIPITOR) 20 mg tablet TAKE 1 TABLET BY MOUTH ONCE DAILY AT BEDTIME 90 tablet 0 dapagliflozin propanediol (FARXIGA) 10 mg tablet Take 1 tablet by mouth daily with breakfast. 90 tablet 3 carbidopa-levodopa (SINEMET 25-100) 25-100 mg per tablet Take 2 tablets by mouth three times a day. 540 tablet 3 acetaminophen (TYLENOL) 500 mg tablet Take 2 tablets by mouth every 8 hours. 60 tablet 0 tamsulosin (FLOMAX) 0.4 mg Take 1 capsule by mouth once daily. [address] (PROTONIX) 40 mg tablet Take 1 tablet by mouth two times a day before meals at 6 am and 4 pm. 60 tablet 0 senna-docusate (SENNA-S) 8.6-50 mg per tablet Take 1 tablet by mouth two times a day. 60 tablet 0 lisinopril (ZESTRIL) 10 mg tablet Take 1 tablet by mouth once daily. polyethylene glycol 3350 17 gram packet Take 1 Packet by mouth two times a day. Dissolve dose in 4 - 8 ounces of liquid and take as directed. spironolactone (ALDACTONE) 25 mg tablet Take 1 tablet by mouth once daily. 90 tablet 3 aspirin 81 mg cap Take 81 mg by mouth once daily. iv contrast (will be provided with radiology test) CTA Head/Neck W No IV access, insert saline lock prior to the sedation, infusion, injection for imaging exam. Discontinue saline lock post exam. If Pt. has a central line or IVAD, may access for administration according to line specific nursing protocol. Once exam is complete flush line and de-access according to line specific nursing protocol in the CT contrast administration guidelines link. 1 Each 0 cloNIDine HCl (CATAPRES) 0.2 mg tablet Take 0.2 mg by mouth two times a day. citalopram (CELEXA) 40 mg tablet Take 40 mg by mouth once daily. No current facility-administered medications for this visit. Objective OBJECTIVE 03/27/25 0941 BP: 108/72 BP Site: Right Arm BP Position: Sitting BP Cuff Size: Regular Adult Pulse: 63 SpO2: 98% Weight: 92.4 kg (203 lb 13 oz) General: General Appearance: Well appearing, alert, in no acute distress, well-hydrated, well nourished. Head: Normocephalic Neck: Supple Heart: RRR Neurologic Exam: Mental Status: He is alert. March 19-, 2024, age 65, tue x, difficulty with sentence repetition, recall is partially impaired. Affect is mildly anxious. Cranial Nerves: Extraocular movements show full and smooth pursuits. No nystagmus. Visual moore are full to confrontation. Facial activation is symmetric. Hearing is intact to conversation. There is mild hypomimia. There is mild hypophonia. There is no dysarthria. Tongue is midline. Palate elevates symmetrically. Shoulder shrug is mildly reduced on right. Motor: Muscle bulk is normal. Muscle power is full. Mod RUE otherwise mild bradykinesia and rigidity. RUE rest tremor mild-mod, mild in RLE goes to mod during Tin. Last dose levodopa 200 mg at 0910, exam 1025 Sensory: Vibration absent right foot present left Reflex: Biceps and brachioradialis is 2+ bilaterally. Patellar reflex 2+ bilaterally. Ankle jerks 2+ left trace right. Coordination: Finger to nose is smooth without ataxia. Gait/station: Mildly stooped posture, stands with use of hands, reduced right arm swing, right hand tremor mild during gait DATA REVIEW Actual films/image/tracing reviewed and summarized as follows: MRI L-spine 07/13/23 severe central stenosis at L3-4 Old records reviewed and summarized as follows: A1c 6.4 Reviewed Spine medicine notes ordered MRI L-spine MRI Brain 01/06/24 severe chronic microvascular changes Reviewed referral records from [facility] 1.61 Assessment/Plan ASSESSMENT AND PLAN: Nick Arora is a 65 year old right-handed male with a history of heart failure, DM, HTN, anxiety / depression and tremor who presents for follow up of parkinsonism. His examination demonstrates R>L parkinsonism. 1. PD - Compress levodopa times to every 5 hours from waking uo - Wouldn't suggest increasing at this time 2. Memory loss c/w major neurocognitive disorder i.e. dementia - Severe vascular changes on MRI and PD would be likely underlying etiologies - Gets neuropsych testing to help clarify - Has upcoming driving evaluation - Stop meds that can contribute -> benadryl for sleep and oxybutynin - After starting trazodone for sleep will then start donepezil, discussed dosing and side effects 3. Insomnia - Stop benadryl - Start trazodone, titrate to 100 mg QHS, watch for sleepiness 4. Low back pain, numbness in feet - Has repeat MRI L-spine planned, prior one from 2022 already with severe L3-4 stenosis - Numbness in feet as well, don't think EMG would drastically traffic incident management manager though so deferred for now Follow-up: 4 months Risks AND Side Effects of Newly Prescribed Medication, Discussed with Patient: YES I spent 40 minutes in the visit, with more than 50% of the total [id number] time of the visit in counseling / coordination of care. Mirnada Del Rio MD [facility] Neurology Miranda Del Rio MD 03/27/2025 10:43 AM Addendum 1. Compress times of carbidopa/levodopa to 2 pills every 5 hours from waking 2. Stop Z-quil - start trazodone for sleep - take 1/2 pill at bedtime 10 days and if no better can go up to a full pill. Watch out for sleepiness with it. 3. I think you should stop oxybutynin and see if there is a safer medicaiton that can be used for urination. See urology to ask about this. 4. To schedule the neuropsych testing call: Lansingmario Ruggiero or Dr. Rinaldi [phone] or [phone] 5. After you have been on the trazodone for a couple weeks, then start donepezil - it is used to try to help improve memory / confusion. For the first month, take 5 mg once a day, then increase to 10 mg once a day thereafter. Watch out for diarrhea, decreased appetite, nightmares, or heart rate changes. If you feel sleepy with it you can take it at bedtime, but bedtime dosing may increase risk for nightmares from it. Allergies As of Date: 03/27/2025 Noted Allergy Reaction ACETAMINOPHEN 04/23/2023 8 - GI Upset HYDROCODONE 04/23/2023 8 - GI Upset TRAMADOL 04/23/2023 8 - GI Upset VICODIN (HYDROCODONE-ACETAMINOPHE*12/08/2023 8 - GI Upset Date Reviewed: 03/27/2025 Reviewed by: Marcell Valadez, RN - Fully Assessed Reason for Visit: Follow Up [171] Cmt: Increased confusion, irritability, agitation, sleeping Primary Visit Diagnosis:Parkinson's disease without dyskinesia or fluctuating manifestations (HCC) [G20.A1] Other Visit Diagnoses: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) [F02.818] Cerebral microvascular disease [I67.89] Insomnia, unspecified type [G47.00] Low back pain, unspecified back pain laterality, unspecified chronicity, unspecified whether sciatica present [M54.50] Numbness in feet [R20.0] Order(s):NEUROPSYCHOLOGICAL TESTING CONSULT [[id number]] Order #: [id number]: 1 traZODone (DESYREL) 100 mg tabletTake 1/2 pill once a day for 10 days then increase to a full pill thereafterDisp: 90 tabletRfl: 3 donepezil (ARICEPT) 10 mg tabletAfter on trazodone for 2 weeks, start 1/2 pill once a day for 1 month then increase to a full pill once a day thereafter.Disp: 90 tabletRfl: 3 Prescriptions as of 04/16/2025 - traZODone (DESYREL) 100 mg tablet Take 1/2 pill once a day for 10 days then increase to a full pill thereafter - donepezil (ARICEPT) 10 mg tablet After on trazodone for 2 weeks, start 1/2 pill once a day for 1 month then increase to a full pill once a day thereafter. - oxybutynin ER (DITROPAN XL) 10 mg 24 hr tablet Take 1 tablet by mouth once daily. - atorvastatin (LIPITOR) 20 mg tablet TAKE 1 TABLET BY MOUTH ONCE DAILY AT BEDTIME - dapagliflozin propanediol (FARXIGA) 10 mg tablet Take 1 tablet by mouth daily with breakfast. - carbidopa-levodopa (SINEMET 25-100) 25-100 mg per tablet Take 2 tablets by mouth three times a day. - acetaminophen (TYLENOL) 500 mg tablet Take 2 tablets by mouth every 8 hours. - tamsulosin (FLOMAX) 0.4 mg Take 1 capsule by mouth once daily. - pantoprazole DR (PROTONIX) 40 mg tablet Take 1 tablet by mouth two times a day before meals at 6 am and 4 pm. - senna-docusate (SENNA-S) 8.6-50 mg per tablet Take 1 tablet by mouth two times a day. - lisinopril (ZESTRIL) 10 mg tablet Take 1 tablet by mouth once daily. - polyethylene glycol 3350 17 gram packet Take 1 Packet by mouth two times a day. Dissolve dose in 4 - 8 ounces of liquid and take as directed. - spironolactone (ALDACTONE) 25 mg tablet Take 1 tablet by mouth once daily. - aspirin 81 mg cap Take 81 mg by mouth once daily. - iv contrast (will be provided with radiology test) CTA Head/Neck W No IV access, insert saline lock prior to the sedation, infusion, injection for imaging exam. Discontinue saline lock post exam. If Pt. has a central line or IVAD, may access for administration according to line specific nursing protocol. Once exam is complete flush line and de-access according to line specific nursing protocol in the CT contrast administration guidelines link. - cloNIDine HCl (CATAPRES) 0.2 mg tablet Take 0.2 mg by mouth two times a day. - citalopram (CELEXA) 40 mg tablet Take 40 mg by mouth once daily. 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/18/2024 Chronic bilateral low back pain with bilateral *04/18/2024 Parkinson's disease with dyskinesia (HCC) [G20.*04/18/2024 Aftercare [Z51.89] 06/29/2024 Status post total left knee replacement [Z96.65*06/29/2024 YUMIKO (acute kidney injury) (HCC) [N17.9] 06/30/2024 07/05/2024 Acute urinary retention [R33.8] 06/30/2024 07/13/2024 Malnutrition of mild degree (HCC) [E44.1] 07/01/2024 07/13/2024 Nausea and vomiting [R11.2] 07/03/2024 07/13/2024 UTI (urinary tract infection) [N39.0] 07/03/2024 07/05/2024 UTI (urinary tract infection) [N39.0] 07/06/2024 07/13/2024 YUMIKO (acute kidney injury) (HCC) [N17.9] 07/06/2024 07/13/2024 Hypotension [I95.9] 07/06/2024 07/13/2024 Other instructions from your clinician: 1. Compress times of carbidopa/levodopa to 2 pills every 5 hours from waking 2. Stop Z-quil - start trazodone for sleep - take 1/2 pill at bedtime 10 days and if no better can go up to a full pill. Watch out for sleepiness with it. 3. I think you should stop oxybutynin and see if there is a safer medicaiton that can be used for urination. See urology to ask about this. 4. To schedule the neuropsych testing call: [facility] Dr. Ruggiero or Dr. Rinaldi [phone] or [phone] 5. After you have been on the trazodone for a couple weeks, then start donepezil - it is used to try to help improve memory / confusion. For the first month, take 5 mg once a day, then increase to 10 mg once a day thereafter. Watch out for diarrhea, decreased appetite, nightmares, or heart rate changes. If you feel sleepy with it you can take it at bedtime, but bedtime dosing may increase risk for nightmares from it. Prescriptions ordered this encounter Disp Refills Start End TRAZODONE 100 MG TABLET 90 t* 3 03/27/2025 Sig: Take 1/2 pill once a day for 10 days then increase to a full pill thereafter DONEPEZIL 10 MG TABLET 90 t* 3 03/27/2025 Sig: After on trazodone for 2 weeks, start 1/2 pill once a day for 1 month then increase to a full pill once a day thereafter. Disposition: Return in about 4 months (around 07/27/2025). Follow-up and Disposition History for Encounter Date Provider Department Center 03/27/2025 [id number], [facility] Encounter Status:Closed by MIRANDA DEL RIO on 04/16/25 PROGRESS Observed: 03/27/2025 9:40 AM Status: COMPLETED Source: [facility] HNO ID: [id number] Author: MIRANDA DEL RIO MD Service: ? Author Type: Physician Type: Progress Notes Filed: 04/16/2025 23:03 Note Text: FOLLOW UP NOTE Subjective Nick Arora is a 65 year old male who presents for follow up. Here with his son-in-law Dank. CC: PD Summary of prior care: 04/2024 right-handed male with a history of heart failure, DM, HTN, anxiety / depression and tremor who presents for evaluation of parkinsonism. His examination demonstrates R>L parkinsonism. His presentation is c/w PD. I don't think he needs primidone or propranolol for tremor, rather would be managed with carbidopa/levodopa. Will start by having him taper off primidone. I double checked with his case management associate who did not feel propranolol currently needed for his heart health, will taper this off after he is off primidone. Once he is off both medications, he can start carbidopa/levodopa titrating to 1 pill TID. Discussed side effects. 08/2024 fine off primidone / propranolol, mild levodopa benefit, increase to 200 TID, t/c donepezil next, constipation measures. HPI Current Issues - Up to 2 pills TID, unclear benefit - No peak or wear OFF - No side effects, maybe initially some weird dreams - Can do things for around 15-30 minutes, then has pain in the right foot and low back - Daughter notes tremor worse, present when foot on brake (sees it wavering), constant while seated - Able to button buttons, took out shoelaces - Sees podiatry who had suggest a nerve test - Itching at the bottom of both feet. DM was bad for a while. - Milk of magnesia daily and if takes it will go every 1-2 days. Had miralax in the past unclear if was tried - Doesn't drink much water - Drinks 3-4 cans of DMD a day (54 mg caffeine per can) - Short term memory isn't great. Daughter notes that he has asked 10 times what they are doing here today, thought here for his MRI. Daughter notes gets confused and agitated at times. Daughter notes has almost sundowning type of issues - gets agitated, stays up all night. He will wake up at night and hear people outside. Bad fall at night while awake. Confusion seems to come and go. - Taking Z-quil nightly - On oxybutynin but having dry mouth - Urination is good right now but was Cd/ld 25 2 pills @ , Current Outpatient Medications Medication Sig Dispense Refill oxybutynin ER (DITROPAN XL) 10 mg 24 hr tablet Take 1 tablet by mouth once daily. atorvastatin (LIPITOR) 20 mg tablet TAKE 1 TABLET BY MOUTH ONCE DAILY AT BEDTIME 90 tablet 0 dapagliflozin propanediol (FARXIGA) 10 mg tablet Take 1 tablet by mouth daily with breakfast. 90 tablet 3 carbidopa-levodopa (SINEMET 25-100) 25-100 mg per tablet Take 2 tablets by mouth three times a day. 540 tablet 3 acetaminophen (TYLENOL) 500 mg tablet Take 2 tablets by mouth every 8 hours. 60 tablet 0 tamsulosin (FLOMAX) 0.4 mg Take 1 capsule by mouth once daily. [address] (PROTONIX) 40 mg tablet Take 1 tablet by mouth two times a day before meals at 6 am and 4 pm. 60 tablet 0 senna-docusate (SENNA-S) 8.6-50 mg per tablet Take 1 tablet by mouth two times a day. 60 tablet 0 lisinopril (ZESTRIL) 10 mg tablet Take 1 tablet by mouth once daily. polyethylene glycol 3350 17 gram packet Take 1 Packet by mouth two times a day. Dissolve dose in 4 - 8 ounces of liquid and take as directed. spironolactone (ALDACTONE) 25 mg tablet Take 1 tablet by mouth once daily. 90 tablet 3 aspirin 81 mg cap Take 81 mg by mouth once daily. iv contrast (will be provided with radiology test) CTA Head/Neck W No IV access, insert saline lock prior to the sedation, infusion, injection for imaging exam. Discontinue saline lock post exam. If Pt. has a central line or IVAD, may access for administration according to line specific nursing protocol. Once exam is complete flush line and de-access according to line specific nursing protocol in the CT contrast administration guidelines link. 1 Each 0 cloNIDine HCl (CATAPRES) 0.2 mg tablet Take 0.2 mg by mouth two times a day. citalopram (CELEXA) 40 mg tablet Take 40 mg by mouth once daily. No current facility-administered medications for this visit. Objective OBJECTIVE 03/27/25 0941 BP: 108/72 BP Site: Right Arm BP Position: Sitting BP Cuff Size: Regular Adult Pulse: 63 SpO2: 98% Weight: 92.4 kg (203 lb 13 oz) General: General Appearance: Well appearing, alert, in no acute distress, well-hydrated, well nourished. Head: Normocephalic Neck: Supple Heart: RRR Neurologic Exam: Mental Status: He is alert. March 19-, 2024, age 65, tue x, difficulty with sentence repetition, recall is partially impaired. Affect is mildly anxious. Cranial Nerves: Extraocular movements show full and smooth pursuits. No nystagmus. Visual moore are full to confrontation. Facial activation is symmetric. Hearing is intact to conversation. There is mild hypomimia. There is mild hypophonia. There is no dysarthria. Tongue is midline. Palate elevates symmetrically. Shoulder shrug is mildly reduced on right. Motor: Muscle bulk is normal. Muscle power is full. Mod RUE otherwise mild bradykinesia and rigidity. RUE rest tremor mild-mod, mild in RLE goes to mod during Tin. Last dose levodopa 200 mg at 0910, exam 1025 Sensory: Vibration absent right foot present left Reflex: Biceps and brachioradialis is 2+ bilaterally. Patellar reflex 2+ bilaterally. Ankle jerks 2+ left trace right. Coordination: Finger to nose is smooth without ataxia. Gait/station: Mildly stooped posture, stands with use of hands, reduced right arm swing, right hand tremor mild during gait DATA REVIEW Actual films/image/tracing reviewed and summarized as follows: MRI L-spine 07/13/23 severe central stenosis at L3-4 Old records reviewed and summarized as follows: A1c 6.4 Reviewed Spine medicine notes ordered MRI L-spine MRI Brain 01/06/24 severe chronic microvascular changes Reviewed referral records from [facility] 1.61 Assessment/Plan ASSESSMENT AND PLAN: Nick Arora is a 65 year old right-handed male with a history of heart failure, DM, HTN, anxiety / depression and tremor who presents for follow up of parkinsonism. His examination demonstrates R>L parkinsonism. 1. PD - Compress levodopa times to every 5 hours from waking uo - Wouldn't suggest increasing at this time 2. Memory loss c/w major neurocognitive disorder i.e. dementia - Severe vascular changes on MRI and PD would be likely underlying etiologies - Gets neuropsych testing to help clarify - Has upcoming driving evaluation - Stop meds that can contribute -> benadryl for sleep and oxybutynin - After starting trazodone for sleep will then start donepezil, discussed dosing and side effects 3. Insomnia - Stop benadryl - Start trazodone, titrate to 100 mg QHS, watch for sleepiness 4. 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 Miranda Del Rio MD [facility] CNOV Observed: 03/14/2025 8:45 AM Status: COMPLETED Source: [facility] Office Visit (SPMESH) NICK ARORA ([id number]) 1960 M Date Time Provider Department 03/14/25 8:45 AM TAMMI GARCIA [facility] During your visit today, we recorded the following information about you: Pulse Blood pressure Weight 60/minute 96/58 92.4 kg Tammi Garcia, 03/19/2025 6:44 PM Signed [facility] [place] [facility] - Medical Spine Initial Exam SUBJECTIVE HISTORY OF PRESENT ILLNESS: Nick Arora is a 65 year old male who presents with a chief complaint of low back and leg pain. Accompanied by his daughter. Nick reports chronic low back pain localized to the midline of the lower back, which has been progressively worsening over the past 10-12 years. Had a fall out of tree 8 years ago and had tailbone fracture. At that time, he signed a waiver agreeing not to pursue legal action, and no further treatment was provided beyond X-rays. An MRI performed two years ago at [facility] revealed findings that led to a recommendation for surgery, which he declined. The pain is exacerbated by standing for more than five minutes, bending over, and walking. The pain is currently 0/10, but can be severe, rating it a 10/10 after prolonged standing. He also experiences pain radiating down both legs diffusely, after standing for 5-10 minutes. Sitting helps and sometimes has to sit while taking a shower as well. He reports weakness in his legs, which he believes contributes to frequent falls. His daughter notes he is hunched over with walking. He does not endorse numbness or tingling in the legs. He has difficulty performing daily activities such as shaving and brushing his teeth due to the pain. He underwent a total knee replacement eight months ago, which temporarily alleviated his back pain. However, the back pain returned, and he continues to experience issues with his knee. He has lost approximately 60 pounds since the surgery and currently weighs around 200 pounds. He does not report ongoing weight loss. He reports worsening tremors associated with Parkinson's disease, which have affected his ability to drive. Denies bowel/bladder incontinence or saddle anesthesia. PAIN EVALUATION 03/14/2025 0812 Pain Level: 8 Pain Location: Back Description: Sharp Duration Units: Years Frequency: Continuous Pain Radiation: As above Aggravating Factors: Standing, Walking Bending over Alleviating Factors: Sitting Pain Ratio: low back worse than legs Current Treatment: Medications Tylenol 1000 mg BID PRN Therapies OT: 02/20-03/13/25, 2 visits, Parkinson's, driving assessment PT HEP Home therapy for walking Prior Treatment: Medications none Therapies Chiropractic Prior spine interventions: TPI 2023 in [place], 4 shots he thinks, no fluoro guidance - didn't help Prior spine surgery: none Previously treated by: -Spine Surgery at [facility] - offered surgery for lumbar spine PMH: Parkinson's T2DM Kidney stone CHF Mild depression on Celexa h/o cancer: none PSH: Left TKA 07/14/2024 See below Social Personal life: Lives with his Exercise: Walking 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 Workers' Compensation: No YELLOW AND BLUE FLAGS No-Neg Attitude; Back Pain is Disabling No-Avoiding Activity (for Fear of Pain) No-Depression or Anxiety Disorders No-Social Problems No-Substance Use Disorder No-Job Dissatisfaction No-Financial Disincentives Patient Entered Questionnaires PROMIS Score Percentiles 03/28/2024 08/08/2024 02/19/2025 PROMIS Global Health Scale Physical Health Percentile 7 7 4 31 Mental Health Percentile 43 43 9 34 Patient-reported Multiple values from one day are sorted in reverse-chronological order Percentiles provide an indication of how the patient's score ranks in relation to the general population. Higher percentile rankings indicate better function/quality of life. 50th percentile is the average of the general population and indicates half of respondents had a worse score. Depression Screenin03/28/2024 04/29/2024 08/08/2024 PHQ-9 Score 0 11 12 03/28/2024 04/29/2024 08/08/2024 PHQ-9 Self-harm Question Question 9 Not at all Several days Not at all PHQ-9 Self-Harm (Item 9) response options: 0 Not at all 1 Several days 2 More than half the days 3 Nearly every day PHQ-9 Levels: 0-4 No - mild depression 5-9 Mild depression 10-14 Moderate depression 15-19 Moderately severe depression 20-27 Severe depression ACTIVE PROBLEM LIST Mixed Hyperlipidemia Calculus of Kidney Essential (Primary) Hypertension Mild Depression Type 2 Diabetes Mellitus Without Complication, Without Long-Term Current Use of Insulin (Hcc) Chronic Combined Systolic and Diastolic Heart Failure (Hcc) Chronic Bilateral Low Back Pain With Bilateral Sciatica Parkinson's Disease With Dyskinesia (Hcc) Aftercare Status Post Total Left Knee Replacement PAST MEDICAL HISTORY Diagnosis Date Anxiety and depression BPH (benign prostatic hyperplasia) Congestive heart failure (HCC) Diabetes (HCC) Dyslipidemia Hypertension Kidney stone Spinal stenosis TIA (transient ischemic attack) Tremor PAST SURGICAL HISTORY Procedure Laterality Date TOTAL KNEE REPLACEMENT Left 06/2024 Social History Tobacco Use Smoking status: Never Smokeless tobacco: Never Vaping Use Vaping status: Never Used Substance Use Topics Alcohol use: Not Currently Comment: none now Drug use: Never FAMILY HISTORY Problem Relation Age of Onset Sudden Cardiac Father advanced age at 90 yo other (HTN) Father Cancer Mother Diabetes Mother other (HTN) Mother Stroke Mother Diabetes Sister other (DM) Sister other (HTN) Sister other (diabetic retinopathy) Sister Cancer Brother colon cancer , stomach cancer other (dm) Brother Stroke Brother ALLERGIES Allergen Reactions Acetaminophen GI Upset Hydrocodone GI Upset Tramadol GI Upset Vicodin [Hydrocodon* GI Upset CURRENT MEDICATIONS: oxybutynin ER (DITROPAN XL) 10 mg 24 hr tablet Take 1 tablet by mouth once daily. atorvastatin (LIPITOR) 20 mg tablet TAKE 1 TABLET BY MOUTH ONCE DAILY AT BEDTIME dapagliflozin propanediol (FARXIGA) 10 mg tablet Take 1 tablet by mouth daily with breakfast. carbidopa-levodopa (SINEMET 25-100) 25-100 mg per tablet Take 2 tablets by mouth three times a day. acetaminophen (TYLENOL) 500 mg tablet Take 2 tablets by mouth every 8 hours. tamsulosin (FLOMAX) 0.4 mg Take 1 capsule by mouth once daily. pantoprazole DR (PROTONIX) 40 mg tablet Take 1 tablet by mouth two times a day before meals at 6 am and 4 pm. senna-docusate (SENNA-S) 8.6-50 mg per tablet Take 1 tablet by mouth two times a day. lisinopril (ZESTRIL) 10 mg tablet Take 1 tablet by mouth once daily. polyethylene glycol 3350 17 gram packet Take 1 Packet by mouth two times a day. Dissolve dose in 4 - 8 ounces of liquid and take as directed. spironolactone (ALDACTONE) 25 mg tablet Take 1 tablet by mouth once daily. aspirin 81 mg cap Take 81 mg by mouth once daily. cloNIDine HCl (CATAPRES) 0.2 mg tablet Take 0.2 mg by mouth two times a day. citalopram (CELEXA) 40 mg tablet Take 40 mg by mouth once daily. iv contrast (will be provided with radiology test) CTA Head/Neck W No IV access, insert saline lock prior to the sedation, infusion, injection for imaging exam. Discontinue saline lock post exam. If Pt. has a central line or IVAD, may access for administration according to line specific nursing protocol. Once exam is complete flush line and de-access according to line specific nursing protocol in the CT contrast administration guidelines link. REVIEW OF SYSTEMS: 14 systems reviewed and otherwise negative unless mentioned above. OBJECTIVE: PHYSICAL EXAM BP 96/58 Pulse 60 Wt 92.4 kg (203 lb 11.3 oz) SpO2 97% BMI 28.82 kg/m? GENERAL APPEARANCE: Well nourished, well developed, and no apparent distress. NEURO PSYCH: Patient oriented to person, place, and time. Mood pleasant. Benign affect. CARDIOVASCULAR: Palpable pulses. No edema noted. RESPIRATORY: non-labored breathing, no grunting/flaring/retractions SKIN: Head, neck, trunk, and extremities dry, intact and without lesions. MUSCULOSKELETAL VISUAL INSPECTION Posture: Partially forward bent PALPATION: No tenderness to palpation SPINE ROM: LUMBAR ROM: Flexion to knees with pain. Extension to neutral with pain. Has to bend his legs to try and gain more ROM. Rotation is moderately limited with pain. CERVICAL ROM: Full ROM Without Pain MUSCLE BULK: Normal and symmetrical in the upper AND lower extremities. MUSCLE TONE: Normal. MOTOR: 4/5 left knee extension with pain, 5/5 on right 4/5 left dorsiflexion and EHL, 5/5 on right 5/5 bilateral hip flexion, knee flexion, plantarflexion. SENSORY: sensation intact to light touch BLE REFLEXES: 3+ Right patella and medial hamstring, 2+ on left At least 1-2+ left achilles, but difficulty relaxing bilateral and could not obtain on right. LONG TRACT SIGNS: No clonus, but has difficulty relaxing for test GAIT: Non-antalgic. Able to stand on toes and heels. PERIPHERAL JOINT ROM: HIP ROM: Mildly limited Without Pain STRAIGHT LEG TEST: negative bilateral Hip: Negative BL REANNA, FADIR SI joint: Negative BL REANNA Lumbar facet loading: Causes pain midline with testing each side Knee: Cannot extend quite to neutral each side Crepitus in left knee and pain with motor testing Data Review: All images/reports listed below were personally reviewed by me unless otherwise indicated. [facility] records independently reviewed Imaging and outside records independently reviewed 07/25/24 CT abd/pelvis wo contrast, [employer], report: Small stone in each kidney. Small fat-containing umbilical hernia containing fluid. 07/02/24 CT abd/pelvis wo contrast: Bones/Soft Tissues: Moderate degenerative change. No fracture. No aggressive osseous lesion. Small fat-containing umbilical hernia. Per my review - Severe disc height narrowing L5-S1, moderate at L4-5, vacuum disc both levels. Anterior osteophytes L2 to S1. DISH noted on visualized thoracic/lumbar spine. Posterior osteophyte bridging along the thoracic spinous processes down to L1. Canal stenosis L3-S1, appears worst/moderate at L3-4. Left SI joint osteophyte bridging posteriorly. Narrow bilateral SI joints. 07/13/23 MRI lumbar spine at [facility], images only, report not available: Moderate-severe L3-4 canal stenosis. Mild-moderate L4-5 canal stenosis. ASSESSMENT/PLAN DIAGNOSIS: M48.062 Spinal stenosis of lumbar region with neurogenic claudication (primary encounter diagnosis) M54.50 Lumbar back pain R29.898 Weakness of both lower extremities ASSESSMENT: Nick Arora is a 65 year old male with PMH of Parkinson's, Left TKA, T2DM, Kidney stone, CHF, Mild depression, presenting with chronic midline low back pain, involves legs diffusely. Severe pain with standing/walking and has to sit for relief. Patient has weakness in the legs and has had falls. Has not improved with PT, home exercise program, trigger point injections, medication. Pain is severely limiting his function, ambulation. MRI lumbar 2022 showed moderate-severe canal stenosis at L3-4. Significant osteophyte formation throughout the spine on recent CT scan. Treatment options discussed, but he defers conservative management at this time. New MRI lumbar spine is needed to obtain a spine surgery consultation. PLAN: 1) Imaging/Diagnostic Studies: -MRI lumbar wo contrast -Imaging reviewed as above. 2) Therapy/Rehabilitation: -Activities and exercise as tolerated. 3) Pharmacological Management: -no changes 4) Spine/MSK Interventions: -none at this time 5) Consultations: -Consult spine surgery given weakness and falls in setting of chronic claudicant type low back/leg pain. 6) Follow -up: -As needed after spine surgery consultation. -Patient instructed to call/seek urgent medical care with worsening of symptoms or change of neurological status. 7) Future considerations: -PT -Neuropathic agents (caution with side effect profile in setting of Parkinson's) -[place] SIGNATURE: Tammi Garcia DO PATIENT NAME: Nick Arora DATE: March 14, 2025 TIME: 8:36 AM Referring Provider: SELF [[id number]] Allergies As of Date: 03/14/2025 Noted Allergy Reaction ACETAMINOPHEN 04/23/2023 8 - GI Upset HYDROCODONE 04/23/2023 8 - GI Upset TRAMADOL 04/23/2023 8 - GI Upset VICODIN (HYDROCODONE-ACETAMINOPHE*12/08/2023 8 - GI Upset Date Reviewed: 03/14/2025 Reviewed by: Ayleen Mares MA - Fully Assessed Reason for Visit: Consult [173] Primary Visit Diagnosis:Spinal stenosis of lumbar region with neurogenic claudication [M48.062] Other Visit Diagnoses:Lumbar back pain [M54.50] Weakness of both lower extremities [R29.898] Order(s):MRI LUMBAR SPINE WO IVCON [[id number]] Order #: [id number] FUTURE CONSULT TO SPINE SURGERY [[id number]] Order #: [id number]: 1 FUTURE Prescriptions as of 03/19/2025 - oxybutynin ER (DITROPAN XL) 10 mg 24 hr tablet Take 1 tablet by mouth once daily. - atorvastatin (LIPITOR) 20 mg tablet TAKE 1 TABLET BY MOUTH ONCE DAILY AT BEDTIME - dapagliflozin propanediol (FARXIGA) 10 mg tablet Take 1 tablet by mouth daily with breakfast. - carbidopa-levodopa (SINEMET 25-100) 25-100 mg per tablet Take 2 tablets by mouth three times a day. - acetaminophen (TYLENOL) 500 mg tablet Take 2 tablets by mouth every 8 hours. - tamsulosin (FLOMAX) 0.4 mg Take 1 capsule by mouth once daily. - pantoprazole DR (PROTONIX) 40 mg tablet Take 1 tablet by mouth two times a day before meals at 6 am and 4 pm. - senna-docusate (SENNA-S) 8.6-50 mg per tablet Take 1 tablet by mouth two times a day. - lisinopril (ZESTRIL) 10 mg tablet Take 1 tablet by mouth once daily. - polyethylene glycol 3350 17 gram packet Take 1 Packet by mouth two times a day. Dissolve dose in 4 - 8 ounces of liquid and take as directed. - spironolactone (ALDACTONE) 25 mg tablet Take 1 tablet by mouth once daily. - aspirin 81 mg cap Take 81 mg by mouth once daily. - iv contrast (will be provided with radiology test) CTA Head/Neck W No IV access, insert saline lock prior to the sedation, infusion, injection for imaging exam. Discontinue saline lock post exam. If Pt. has a central line or IVAD, may access for administration according to line specific nursing protocol. Once exam is complete flush line and de-access according to line specific nursing protocol in the CT contrast administration guidelines link. - cloNIDine HCl (CATAPRES) 0.2 mg tablet Take 0.2 mg by mouth two times a day. - citalopram (CELEXA) 40 mg tablet Take 40 mg by mouth once daily. Problem List As Of Date 03/14/2025 Noted Resolved Mixed hyperlipidemia [E78.2] 02/21/2022 Diagnosed: 12/08/2023 Calculus of kidney [N20.0] 12/08/2023 Diagnosed: 12/08/2023 Essential (primary) hypertension [I10] 02/21/2022 Diagnosed: 12/08/2023 Mild depression [F32.A] 12/08/2023 Diagnosed: 12/08/2023 Type 2 diabetes mellitus without complication, *03/09/2024 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/18/2024 Chronic bilateral low back pain with bilateral *04/18/2024 Parkinson's disease with dyskinesia (HCC) [G20.*04/18/2024 Aftercare [Z51.89] 06/29/2024 Status post total left knee replacement [Z96.65*06/29/2024 YUMIKO (acute kidney injury) (HCC) [N17.9] 06/30/2024 07/05/2024 Acute urinary retention [R33.8] 06/30/2024 07/13/2024 Malnutrition of mild degree (HCC) [E44.1] 07/01/2024 07/13/2024 Nausea and vomiting [R11.2] 07/03/2024 07/13/2024 UTI (urinary tract infection) [N39.0] 07/03/2024 07/05/2024 UTI (urinary tract infection) [N39.0] 07/06/2024 07/13/2024 YUMIKO (acute kidney injury) (HCC) [N17.9] 07/06/2024 07/13/2024 Hypotension [I95.9] 07/06/2024 07/13/2024 Disposition: Return for As needed after spine surgery consultation.. Follow-up and Disposition History for Encounter Date Provider Department Center 03/14/2025 [id number] GARCIA [facility] Encounter Status:Closed by TAMMI GARCIA on 03/19/25 PROGRESS Observed: 03/14/2025 8:36 AM Status: COMPLETED Source: [facility] HNO ID: [id number] Author: TAMMI GARCIA, DO Service: ? Author Type: Physician Type: Progress Notes Filed: 03/19/2025 18:44 Note Text: [facility] [place] [facility] [place] [facility] - Medical Spine Initial Exam SUBJECTIVE HISTORY OF PRESENT ILLNESS: Nick Arora is a 65 year old male who presents with a chief complaint of low back and leg pain. Accompanied by his daughter. Nick reports chronic low back pain localized to the midline of the lower back, which has been progressively worsening over the past 10-12 years. Had a fall out of tree 8 years ago and had tailbone fracture. At that time, he signed a waiver agreeing not to pursue legal action, and no further treatment was provided beyond X-rays. An MRI performed two years ago at [facility] revealed findings that led to a recommendation for surgery, which he declined. The pain is exacerbated by standing for more than five minutes, bending over, and walking. The pain is currently 0/10, but can be severe, rating it a 10/10 after prolonged standing. He also experiences pain radiating down both legs diffusely, after standing for 5-10 minutes. Sitting helps and sometimes has to sit while taking a shower as well. He reports weakness in his legs, which he believes contributes to frequent falls. His daughter notes he is hunched over with walking. He does not endorse numbness or tingling in the legs. He has difficulty performing daily activities such as shaving and brushing his teeth due to the pain. He underwent a total knee replacement eight months ago, which temporarily alleviated his back pain. However, the back pain returned, and he continues to experience issues with his knee. He has lost approximately 60 pounds since the surgery and currently weighs around 200 pounds. He does not report ongoing weight loss. He reports worsening tremors associated with Parkinson's disease, which have affected his ability to drive. Denies bowel/bladder incontinence or saddle anesthesia. PAIN EVALUATION 03/14/2025 0812 Pain Level: 8 Pain Location: Back Description: Sharp Duration Units: Years Frequency: Continuous Pain Radiation: As above Aggravating Factors: Standing, Walking Bending over Alleviating Factors: Sitting Pain Ratio: low back worse than legs Current Treatment: Medications Tylenol 1000 mg BID PRN Therapies OT: 02/20-03/13/25, 2 visits, Parkinson's, driving assessment PT HEP Home therapy for walking Prior Treatment: Medications none Therapies Chiropractic Prior spine interventions: TPI 2023 in [place], 4 shots he thinks, no fluoro guidance - didn't help Prior spine surgery: none Previously treated by: -Spine Surgery at [facility] - offered surgery for lumbar spine PMH: Parkinson's T2DM Kidney stone CHF Mild depression on Celexa h/o cancer: none PSH: Left TKA 07/14/2024 See below Social Personal life: Lives with his Exercise: Walking 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 Workers' Compensation: No YELLOW AND BLUE FLAGS No-Neg Attitude; Back Pain is Disabling No-Avoiding Activity (for Fear of Pain) No-Depression or Anxiety Disorders No-Social Problems No-Substance Use Disorder No-Job Dissatisfaction No-Financial Disincentives Patient Entered Questionnaires PROMIS Score Percentiles 03/28/2024 08/08/2024 02/19/2025 PROMIS Global Health Scale Physical Health Percentile 7 7 4 31 Mental Health Percentile 43 43 9 34 Patient-reported Multiple values from one day are sorted in reverse-chronological order Percentiles provide an indication of how the patient's score ranks in relation to the general population. Higher percentile rankings indicate better function/quality of life. 50th percentile is the average of the general population and indicates half of respondents had a worse score. Depression Screenin03/28/2024 04/29/2024 08/08/2024 PHQ-9 Score 0 11 12 03/28/2024 04/29/2024 08/08/2024 PHQ-9 Self-harm Question Question 9 Not at all Several days Not at all PHQ-9 Self-Harm (Item 9) response options: 0 Not at all 1 Several days 2 More than half the days 3 Nearly every day PHQ-9 Levels: 0-4 No - mild depression 5-9 Mild depression 10-14 Moderate depression 15-19 Moderately severe depression 20-27 Severe depression ACTIVE PROBLEM LIST Mixed Hyperlipidemia Calculus of Kidney Essential (Primary) Hypertension Mild Depression Type 2 Diabetes Mellitus Without Complication, Without Long-Term Current Use of Insulin (Hcc) Chronic Combined Systolic and Diastolic Heart Failure (Hcc) Chronic Bilateral Low Back Pain With Bilateral Sciatica Parkinson's Disease With Dyskinesia (Hcc) Aftercare Status Post Total Left Knee Replacement PAST MEDICAL HISTORY Diagnosis Date Anxiety and depression BPH (benign prostatic hyperplasia) Congestive heart failure (HCC) Diabetes (HCC) Dyslipidemia Hypertension Kidney stone Spinal stenosis TIA (transient ischemic attack) Tremor PAST SURGICAL HISTORY Procedure Laterality Date TOTAL KNEE REPLACEMENT Left 06/2024 Social History Tobacco Use Smoking status: Never Smokeless tobacco: Never Vaping Use Vaping status: Never Used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 for Driving and caution with higher level IADLs. Patient with mixed results in the section. Unclear as to whether testing was a result of cognitive decline vs decreased education. Patient with good results with short blessed test. Decreased accuracy and speed of processing with MVPT and decreased divided attention. This demonstrates increased difficulty with cognitive processing. Recommend on the road assessment as he demonstrates mixed results to determine if deficits are resultant of cognition/decreased education level vs processing . [place] Senior Net C Developer Simulator: Simple Brake Reaction Time: Average Distance: 53 feet (Normal = 60 feet) Patient utilized right foot pedal operation. Driving Knowledge Road Sign Recognition: Pass 93 % Rules of the Road: Fail 30% Combined: Fail 68% Recommend patient review rules of the road on [email or web address] Education: Education Learning Preferences: Demonstration, Explanation Barriers: Cognitive Limitations Learning/educational needs: Safety, Plan of Care Education Provided: Yes, see treatment interventions for education provided Education Provided To: Patient, Family Education Mode/Type: Demonstration, Explanation/Discussion Response to Education/Teach Back: States/Identifies, Return Demonstration TREATMENT: Evaluation Self-[facility] Management: 1: Educated on safety throughout the course of the assessment 2: Recommend non glare lighting in the home for optimal vision during low light times of day 3: Recommend removal of all tripping hazards from walkways for safety due to decreased binocular depth perception 4: Assure adequate lighting in stairwells and may benefit from nightlights for safety at night time Skilled Intervention: Skilled judgment in the selection of proper modification for activity of daily living/home management based on clinical presentation, deficits, and needs. Reviewed patient specific diagnosis in relation to activities of daily living/home management. Activity progression based on professional judgement. Community /Work Re-integration: Skilled Intervention: Community mobility: Instructed in safe transfers in/out of simulated vehicle to prevent falls. Reaction time activities instructed and performed important for not only driving but fall prevention. 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 Due to the complex nature of the safe operation of a motor vehicle, and considering the demands of integrating changing environmental conditions, and visual, cognitive, and physical skills, successful completion of this program is not a guarantee of safe driving in the future. ASSESSMENT OF INSTRUMENTAL ADL AND COMMUNITY MOBILITY: Nick Arora presents with the diagnosis of Parkinson's Disease. This patient presents with impairments of decreased depth perception, contrast sensitivity, visual perception processing time, divided attention processing time. He may benefit from skilled occupational therapy services to further assess safety on the road and to determine if deficits observed during clinical assessment were related to clinical testing anxiety, cognition or decreased level of education. RECOMMENDATIONS: ADL/IADL Recommendations: 1. Non glare lighting in the home for optimal vision during low light times of day. 2. Remove all tripping hazards from walkways for safety due to decreased binocular depth perception. 3. May benefit form motion sensor night lights for safety during mobility at night. Driving Recommendations: CONTINUE WITH TREATMENT - On the road assessment. PROBABLE Restrictions: 1. No freeway driving 2. NO night time except for emergency situation due to decreased contrast sensitivity 3. Family to utilize GPS tracking system whether a phone application, air tag, or teen tracker device. 4. IF AT FAULT CRASH, SIGNIFICANT FENDER PALACIOS, MOVING VIOLATION OR INCIDENT OF GETTING LOST IMMEDIATE CESSATION OF DRIVING IS INDICATED Schaefer's Visual Field Exam Requested: No Recommended Complete Eye Exam: possible. Appears to be a decline in acuity of distance vision. Prognosis: Fair Fair due to: clinical presentation, memory deficits Goals for Episode of Care created on 02/20/25 through 05/21/25 Patient and family will demonstrate understanding of safety issues in the home and/or community with assistance as recommended for instrumental activities of daily living , community mobility, and driving Planned Interventions, Frequency, and Duration: Current Frequency: 1 visit Duration: 1 visit Total Number of Visits Planned: 2 Patient to be see for Self-fpc management ([id number]), Senior Net C Developer rehab evaluation, Community / Work Reintegration PLAN FOR NEXT VISIT: behind the wheel assessment Patient demonstrates good understanding of plan of care and treatment. The above goals and plan of care were discussed and agreed upon by patient/family. Billing: Total Treatment Time Minutes (timed/untimed) 120 Evaluation - Moderate Complexity (53087) Self Care / Home Management (00324): 1:1 time: 45 minutes (3 units: 38-52 mins) Community /Work Re-integration (00569): 1:1 time: 45 minutes (3 units: 38-52 mins) Session Start Time : 0800 Session Stop Time : 1000 Total time: 120 minutes MIRIAN [place], JORDI Senior Net C Developer [employer] CNTHERAPY Observed: 02/20/2025 8:00 AM Status: COMPLETED Source: [facility] OT/PT/Speech Visit (AKOTLK) NICK ARORA ([id number]) 1960 M Date Time Provider Department 02/20/25 8:00 AM LEON HUYNH Date Time Provider Department Center 02/20/2025 8:00 AM [id number] HUYNH [facility] Reason for Visit: OT EVAL [748] Primary Visit Diagnosis:Parkinson's disease with dyskinesia without fluctuating manifestations (HCC) [G20.B1] Other Visit Diagnosis:Other specified personal risk factors, not elsewhere classified [Z91.89] Allergies As of Date: 02/20/2025 Noted Allergy Reaction ACETAMINOPHEN 04/23/2023 8 - GI Upset HYDROCODONE 04/23/2023 8 - GI Upset TRAMADOL 04/23/2023 8 - GI Upset VICODIN (HYDROCODONE-ACETAMINOPHE*12/08/2023 8 - GI Upset Date Reviewed: 02/06/2025 Reviewed by: Sanjana Cazares LPN - Fully Assessed Prescriptions as of 02/20/2025 - atorvastatin (LIPITOR) 20 mg tablet TAKE 1 TABLET BY MOUTH ONCE DAILY AT BEDTIME - dapagliflozin propanediol (FARXIGA) 10 mg tablet Take 1 tablet by mouth daily with breakfast. - carbidopa-levodopa (SINEMET 25-100) 25-100 mg per tablet Take 2 tablets by mouth three times a day. - acetaminophen (TYLENOL) 500 mg tablet Take 2 tablets by mouth every 8 hours. - tamsulosin (FLOMAX) 0.4 mg Take 1 capsule by mouth once daily. - pantoprazole DR (PROTONIX) 40 mg tablet Take 1 tablet by mouth two times a day before meals at 6 am and 4 pm. - senna-docusate (SENNA-S) 8.6-50 mg per tablet Take 1 tablet by mouth two times a day. - lisinopril (ZESTRIL) 10 mg tablet Take 1 tablet by mouth once daily. - polyethylene glycol 3350 17 gram packet Take 1 Packet by mouth two times a day. Dissolve dose in 4 - 8 ounces of liquid and take as directed. - spironolactone (ALDACTONE) 25 mg tablet Take 1 tablet by mouth once daily. - aspirin 81 mg cap Take 81 mg by mouth once daily. - iv contrast (will be provided with radiology test) CTA Head/Neck W No IV access, insert saline lock prior to the sedation, infusion, injection for imaging exam. Discontinue saline lock post exam. If Pt. has a central line or IVAD, may access for administration according to line specific nursing protocol. Once exam is complete flush line and de-access according to line specific nursing protocol in the CT contrast administration guidelines link. - cloNIDine HCl (CATAPRES) 0.2 mg tablet Take 0.2 mg by mouth two times a day. - citalopram (CELEXA) 40 mg tablet Take 40 mg by mouth once daily. Letter Text PROGRESS Observed: 02/06/2025 1:53 PM Status: COMPLETED Source: [facility] ID: [id number] Author: ALECIA ABRAHAM MD Service: ? Author Type: Physician Type: Progress Notes Filed: 02/06/2025 14:19 Note Text: [facility] Subjective Nick Arora is a 64 year old male. Patient presents with: Head Pain Left-side: Fell 3 days ago Patient fell at home about 4 days ago. He does not know why he fell. He does not think he tripped on anything. He denies dizziness or loss of consciousness before or after the fall. He did bruise his left buttock and left upper arm. The left buttock has a large bruise which hurts. His left knee has been replaced and hurts at times also. He has painful movement at times but otherwise feels no out of the ordinary pains. Review of Systems Neurological: Positive for tremors (Parkinson's disease). Negative for dizziness, light-headedness, numbness and headaches. Objective BP 130/82 Pulse 89 Temp 36.4 ?C (97.5 ?F) (Tympanic) Resp 16 Wt 91.5 kg (201 lb 11.5 oz) SpO2 94% BMI 28.53 kg/m? Physical Exam Constitutional: General: He is not in acute distress. Appearance: He is not ill-appearing. Comments: Accompanied by his daughter and son-in-law. HENT: Head: Normocephalic and atraumatic. Eyes: Extraocular Movements: Extraocular movements intact. Conjunctiva/sclera: Conjunctivae normal. Pupils: Pupils are equal, round, and reactive to light. Cardiovascular: Rate and Rhythm: Normal rate and regular rhythm. Heart sounds: No murmur heard. Pulmonary: Effort: No respiratory distress. Breath sounds: No wheezing, rhonchi or rales. Musculoskeletal: Left shoulder: No swelling, deformity, tenderness or bony tenderness. Normal range of motion. Cervical back: Neck supple. No tenderness. No pain with movement or spinous process tenderness. Left hip: Tenderness (Tenderness large bruise left upper buttock) present. No bony tenderness. Normal range of motion. Left knee: Deformity (Remote anterior surgical incision) present. No swelling, effusion, erythema, ecchymosis, lacerations or bony tenderness. Normal range of motion. No tenderness. ACL laxity present. No LCL laxity or MCL laxity. Comments: Initial antalgia with transition which improves with walking Neurological: Mental Status: He is alert. {ASSESSMENT/PLAN: 1. Contusion of left buttock - ICD9: 922.32, ICD10: S30.0XXA (primary diagnosis) 2. Fall, initial encounter - ICD9: E888.9, ICD10: W19.XXXA Patient has follow-up with his primary care physician tomorrow. Primary concern today was to have x-rays performed if needed in advance. While the patient does have contusion of the left buttocks and left triceps there is little concern for fracture based on exam. Patient and his daughter are content with this plan and will keep follow-up as scheduled. Alecia Abraham MD Differential Diagnoses - contusion of buttock and upper arm Procedures CNOV Observed: 02/06/2025 1:15 PM Status: COMPLETED Source: [facility] Office Visit (WSTR) NICK ARORA ([id number]) 1960 M Date Time Provider Department 02/06/25 1:15 PM ALECIA ABRAHAM [facility] During your visit today, we recorded the following information about you: Temperature Pulse Respiration Blood pressure 97.5 degrees 89/minute 16/minute 130/82 Weight 91.5 kg Alecia Abraham MD 02/06/2025 2:19 PM Addendum [facility] Subjective Nick Arora is a 64 year old male. Patient presents with: Head Pain Left-side: Fell 3 days ago Patient fell at home about 4 days ago. He does not know why he fell. He does not think he tripped on anything. He denies dizziness or loss of consciousness before or after the fall. He did bruise his left buttock and left upper arm. The left buttock has a large bruise which hurts. His left knee has been replaced and hurts at times also. He has painful movement at times but otherwise feels no out of the ordinary pains. Review of Systems Neurological: Positive for tremors (Parkinson's disease). Negative for dizziness, light-headedness, numbness and headaches. Objective BP 130/82 Pulse 89 Temp 36.4 ?C (97.5 ?F) (Tympanic) Resp 16 Wt 91.5 kg (201 lb 11.5 oz) SpO2 94% BMI 28.53 kg/m? Physical Exam Constitutional: General: He is not in acute distress. Appearance: He is not ill-appearing. Comments: Accompanied by his daughter and son-in-law. HENT: Head: Normocephalic and atraumatic. Eyes: Extraocular Movements: Extraocular movements intact. Conjunctiva/sclera: Conjunctivae normal. Pupils: Pupils are equal, round, and reactive to light. Cardiovascular: Rate and Rhythm: Normal rate and regular rhythm. Heart sounds: No murmur heard. Pulmonary: Effort: No respiratory distress. Breath sounds: No wheezing, rhonchi or rales. Musculoskeletal: Left shoulder: No swelling, deformity, tenderness or bony tenderness. Normal range of motion. Cervical back: Neck supple. No tenderness. No pain with movement or spinous process tenderness. Left hip: Tenderness (Tenderness large bruise left upper buttock) present. No bony tenderness. Normal range of motion. Left knee: Deformity (Remote anterior surgical incision) present. No swelling, effusion, erythema, ecchymosis, lacerations or bony tenderness. Normal range of motion. No tenderness. ACL laxity present. No LCL laxity or MCL laxity. Comments: Initial antalgia with transition which improves with walking Neurological: Mental Status: He is alert. {ASSESSMENT/PLAN: 1. Contusion of left buttock - ICD9: 922.32, ICD10: S30.0XXA (primary diagnosis) 2. Fall, initial encounter - ICD9: E888.9, ICD10: W19.XXXA Patient has follow-up with his primary care physician tomorrow. Primary concern today was to have x-rays performed if needed in advance. While the patient does have contusion of the left buttocks and left triceps there is little concern for fracture based on exam. Patient and his daughter are content with this plan and will keep follow-up as scheduled. Alecia Abraham MD Differential Diagnoses - contusion of buttock and upper arm Procedures Allergies As of Date: 02/06/2025 Noted Allergy Reaction ACETAMINOPHEN 04/23/2023 8 - GI Upset HYDROCODONE 04/23/2023 8 - GI Upset TRAMADOL 04/23/2023 8 - GI Upset VICODIN (HYDROCODONE-ACETAMINOPHE*12/08/2023 8 - GI Upset Date Reviewed: 02/06/2025 Reviewed by: Sanjana Cazares LPN - Fully Assessed Reason for Visit: Head Pain Left-side [1371] Cmt: Fell 3 days ago Primary Visit Diagnosis:Contusion of left buttock [S30.0XXA] Other Visit Diagnosis:Fall, initial encounter [W19.XXXA] Prescriptions as of 02/06/2025 - atorvastatin (LIPITOR) 20 mg tablet TAKE 1 TABLET BY MOUTH ONCE DAILY AT BEDTIME - dapagliflozin propanediol (FARXIGA) 10 mg tablet Take 1 tablet by mouth daily with breakfast. - carbidopa-levodopa (SINEMET 25-100) 25-100 mg per tablet Take 2 tablets by mouth three times a day. - acetaminophen (TYLENOL) 500 mg tablet Take 2 tablets by mouth every 8 hours. - tamsulosin (FLOMAX) 0.4 mg Take 1 capsule by mouth once daily. - pantoprazole DR (PROTONIX) 40 mg tablet Take 1 tablet by mouth two times a day before meals at 6 am and 4 pm. - senna-docusate (SENNA-S) 8.6-50 mg per tablet Take 1 tablet by mouth two times a day. - lisinopril (ZESTRIL) 10 mg tablet Take 1 tablet by mouth once daily. - polyethylene glycol 3350 17 gram packet Take 1 Packet by mouth two times a day. Dissolve dose in 4 - 8 ounces of liquid and take as directed. - spironolactone (ALDACTONE) 25 mg tablet Take 1 tablet by mouth once daily. - aspirin 81 mg cap Take 81 mg by mouth once daily. - iv contrast (will be provided with radiology test) CTA Head/Neck W No IV access, insert saline lock prior to the sedation, infusion, injection for imaging exam. Discontinue saline lock post exam. If Pt. has a central line or IVAD, may access for administration according to line specific nursing protocol. Once exam is complete flush line and de-access according to line specific nursing protocol in the CT contrast administration guidelines link. - cloNIDine HCl (CATAPRES) 0.2 mg tablet Take 0.2 mg by mouth two times a day. - citalopram (CELEXA) 40 mg tablet Take 40 mg by mouth once daily. 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 Chronic bilateral low back pain with bilateral *04/18/2024 Parkinson's disease with dyskinesia (HCC) [G20.*04/18/2024 Aftercare [Z51.89] 06/29/2024 Status post total left knee replacement [Z96.65*06/29/2024 YUMIKO (acute kidney injury) (HCC) [N17.9] 06/30/2024 07/05/2024 Acute urinary retention [R33.8] 06/30/2024 07/13/2024 Malnutrition of mild degree (HCC) [E44.1] 07/01/2024 07/13/2024 Nausea and vomiting [R11.2] 07/03/2024 07/13/2024 UTI (urinary tract infection) [N39.0] 07/03/2024 07/05/2024 UTI (urinary tract infection) [N39.0] 07/06/2024 07/13/2024 YUMIKO (acute kidney injury) (HCC) [N17.9] 07/06/2024 07/13/2024 Hypotension [I95.9] 07/06/2024 07/13/2024 Level of Service: OFFICE/OUTPATIENT ESTABLISHED LOW [facility] 20 MIN [25094] Encounter Status:Closed by ALECIA ABRAHAM on 02/06/25 PROGRESS Observed: 01/23/2025 6:01 PM Status: COMPLETED Source: [facility] HNO ID: [id number] Author: ALECIA ABRAHAM MD Service: ? Author Type: Physician Type: Progress Notes Filed: 01/23/2025 19:24 Note Text: [facility] Subjective Nick Arora is a 64 year old male. Patient presents with: Nausea AND Vomiting: Nausea, vomiting, bodyaches x 10 days Patient checked in to the express care with concerns for not sleeping more than an hour for the last 3 nights. He has had bodyaches and nausea over the last 10 days. He has vomited 2-3 times in the mornings over this 10-day stretch. Patient felt hot and chilled, rhinorrhea, noticed his urine was dark and red when giving a sample earlier today. He has generalized weakness. He states he almost fell over a wild mushroom hunting this weekend. He denies diarrhea, cough, headache, vision change, sore throat, shortness of breath, chest pain, palpitations, wheezing, dysuria, frequency, urgency. Patient lives with his . He states his daughter who lives in [place] is in charge of his medical care. There is an extensive telephone encounter from today citing ongoing concerns about confusion and inability to safely drive. His sister suggested he come here for evaluation tonight because it is part of the [facility] system. The history is provided by the patient (Daughter Carmina by telephone calls). Review of Systems Objective BP 132/82 Pulse 99 Temp 36.8 ?C (98.3 ?F) (Tympanic) Resp 16 Wt 92.2 kg (203 lb 4.2 oz) SpO2 95% BMI 28.75 kg/m? Last 4 Encounter Wt Readings: Date: Wt: 01/23/2025 92.2 kg (203 lb 4.2 oz) 08/08/2024 107 kg (235 lb 14.3 oz) 08/08/2024 90 kg (198 lb 6.6 oz) 07/05/2024 95.1 kg (209 lb 10.5 oz) Physical Exam Constitutional: General: He is not in acute distress. Appearance: Normal appearance. He is not ill-appearing, toxic-appearing or diaphoretic. HENT: Ears: Comments: Bilateral partial cerumen impaction Nose: No congestion or rhinorrhea. Mouth/Throat: Mouth: Mucous membranes are moist. Pharynx: No oropharyngeal exudate or posterior oropharyngeal erythema. Eyes: Extraocular Movements: Extraocular movements intact. Conjunctiva/sclera: Conjunctivae normal. Pupils: Pupils are equal, round, and reactive to light. Cardiovascular: Rate and Rhythm: Normal rate and regular rhythm. Heart sounds: No murmur heard. Pulmonary: Effort: Pulmonary effort is normal. Breath sounds: Normal breath sounds. No wheezing, rhonchi or rales. Abdominal: General: Abdomen is flat. Palpations: There is no mass. Tenderness: There is no abdominal tenderness. There is no right CVA tenderness or left CVA tenderness. Musculoskeletal: Cervical back: Neck supple. No tenderness. Lymphadenopathy: Cervical: No cervical adenopathy. Skin: Coloration: Skin is not jaundiced or pale. Neurological: Mental Status: He is alert and oriented to person, place, and time. Cranial Nerves: No cranial nerve deficit. Deep Tendon Reflexes: Reflexes abnormal (3+/4). Comments: Right hand tremor Psychiatric: Mood and Affect: Mood normal. Thought Content: Thought content normal. Comments: Engaging and admits people are telling him he is confused. Speech is fluent and not pressured. Somewhat inattentive thought process. MINI-MENTAL STATE EXAMINATION (MMSE) Make the patient comfortable and establish rapport. Ask questions in the order listed. Total possible score is 30. ORIENTATION 1. What is the (year) (season) (date) (day) (month)? Max score=5 Patient's score=5 2. Where are we? (state) (county) (town or city) (hospital) (floor)? Max score=5 Patient's score=5 REGISTRATION Ask the patient if you may test his/her memory. Then say the names of 3 unrelated objects, clearly and slowly, about one second for each (eg, apple, table, agustina). After you have said all 3, ask him/her to repeat them. This first repetition determines the score(0-3), but keep saying them until he/she can repeat all 3, up to 6 trials. Max score=3 Patient's score=3 ATTENTION AND CALCULATION Ask the patient to begin with 100 and count backwards by 7. Stop after 5 subtractions (93, 86, 79, 72, 65). Score the total number of correct answers. If the patient cannot or will not perform the serial 7s task, ask him/her to spell the word WORLD backwards. The score is the number of letters in the correct order (eg, DLROW=5; DLRW=4; DLORW, DLW=3; OW=2; DRLWO=1). Max score=5 Patient's score=1 RECALL Ask the patient to recall the 3 items repeated above (eg, apple, table, agustina). Max score=3 Patient's score=2 LANGUAGE Naming: Show the patient a wristwatch and ask him/her what it is. Repeat for pencil. Max score=2 Patient's score=2 Repetition: Ask the patient to repeat the phrase No ifs, ands, or buts: after you. Max score=1 Patient's score=1 3-Stage Command: Give the patient a piece of blank paper and ask him/her to take a piece of paper in your right hand, fold it in half, put it on the floor. Score 1 point for each part correctly executed. Max score=3 Patient's score=3 Reading: On a blank piece of paper, print the sentence CLOSE YOUR EYES in letters large enough for the patient to see clearly. Ask him/her to read it and do what it says. Score 1 point only if he/she actually closes his/her eyes. Max score=1 Patient's score=1 Writing: Give the patient a blank piece of paper and ask him/her to write a sentence. Do not dictate a sentence; it is to be written spontaneously. It must contain a subject and verb and be sensible. Correct grammar and punctuation are not necessary. Max score=1 Patient's score=1 Copying: Ask the patient to copy the figure of intersecting pentagons exactly as it is. All 10 angles must be present and 2 must intersect to form a 4-sided figure to score 1 point. Tremor and rotation are ignored. Max score=1 Patient's score=0 MAXIMUM TOTAL SCORE = 30 TOTAL SCORE = 24/30 Suggested guideline for determining the severity of cognitive impairment: Mild: MMSE>21 Moderate: MMSE 10-20 Severe: MMSE<9 Expected decline in MMSE scores in untreated mild to moderate Alzheimer's patient is 2 to 4 points per year. *Adapted from Folstein et al.1 and Rashad and Folstein2. (c) 1974, 1997 [employer] Used with permission. References: 1. Folstein MF, Folstein SE, [place]. Mini-Mental State: a practical method for grading the cognitive state of patients for the clinician. J Psychiatr Res. 1975; 12:189-198. 2. JR Rashad, Logan TINEO, Mini-Mental State Examination (MMSE). Psychopharm Bull. 1988;24:689-692. 3. Chriss De AndaT, García FJ, Go RD, Michele A, Atiya F. Neuropsychological function in Alzheimer's disease: pattern of impairment and rates of progression. Arch Neurol. 1988;45:263-268. 4. Ilya JA, Yomi B, Samir SEddieP, Jonna CAVAZOS. Predictors of cognitive and functional progression in patients with probable Alzheimer's disease. Neurology. 1992;42:6705-3839. Latest Ref Rng 01/23/2025 WBC 3.70 - 11.00 k/uL 10.60 RBC 4.20 - 6.00 m/uL 5.32 Hemoglobin 13.0 - 17.0 g/dL 16.0 Hematocrit 39.0 - 51.0 % 47.9 MCV 80.0 - 100.0 fL 90.0 MCH 26.0 - 34.0 pg 30.1 MCHC 30.5 - 36.0 g/dL 33.4 RDW-CV 11.5 - 15.0 % 13.2 Platelet Count 150 - 400 k/uL 300 MPV 9.0 - 12.7 fL 9.0 Neut% % 69.0 Abs Neut (ANC) 1.45 - 7.50 k/uL 7.33 Lymph% % 19.0 Abs Lymph 1.00 - 4.00 k/uL 2.01 Major% % 6.8 Abs Major <0.87 k/uL 0.72 Eosin% % 4.1 Abs Eosin <0.46 k/uL 0.43 Baso% % 0.8 Abs Baso <0.11 k/uL 0.08 Immature Gran % % 0.3 IMMATURE GRANS (ABS) <0.10 k/uL 0.03 NRBC /100 WBC 0.0 Absolute nRBC <0.01 k/uL <0.01 {ASSESSMENT/PLAN: 1. Confusion - ICD9: 298.9, ICD10: R41.0 (primary diagnosis) 2. Generalized weakness - ICD9: 780.79, ICD10: R53.1 3. Type 2 diabetes mellitus without complication, without long-term current use of insulin (HCC) - ICD9: 250.00, ICD10: E11.9 - GLUCOSE, BLOOD (POC) - 122 - UA DIP, URINE (POC) -positive for glucose, trace ketone, and protein. Negative for signs of infection including blood, nitrite, leukocyte esterase. CBC from today is without any abnormal levels. CMP and A1c are pending. Had a conversation with patient's daughter by telephone while he was in the room and after Mini-Mental status exam. She believes his recall of symptoms is not reliable. She is attempting to come to [place] to help with his care in 2 days. His exam and vitals are benign. He has rapid recall of person, place, and time. He has difficulty primarily with math, spelling, and drawing functions. He was released to follow up with PCP and neurology. His family will take him to the ED if there is concern for increasing confusion or dangerous behavior in the interim. Alecia Abraham MD History and Record Review Clinical information obtained from an independent historian. History obtained from or confirmed by: family member. External record(s) reviewed: prior outpatient record. Findings from review of outpatient records: Telephone encounter reporting confusion and dangerous driving today Differential Diagnoses - parkinson's dementia - sepsis is less likely for the following reason(s): normal CBC and vitals Disposition The patient was discharged. Greater than 40 minutes were spent in direct patient care, chart review, and communication with family. Procedures CNOV Observed: 01/23/2025 5:45 PM Status: COMPLETED Source: [facility] Office Visit (WSTR) NICK ARORA ([id number]) 1960 M Date Time Provider Department 01/23/25 5:45 PM ALECIA ABRAHAM [facility] During your visit today, we recorded the following information about you: Temperature Pulse Respiration Blood pressure 98.3 degrees 99/minute 16/minute 132/82 Weight 92.2 kg Alecia Abraham MD 01/23/2025 7:24 PM Signed [facility] Subjective Nick Arora is a 64 year old male. Patient presents with: Nausea AND Vomiting: Nausea, vomiting, bodyaches x 10 days Patient checked in to the express care with concerns for not sleeping more than an hour for the last 3 nights. He has had bodyaches and nausea over the last 10 days. He has vomited 2-3 times in the mornings over this 10-day stretch. Patient felt hot and chilled, rhinorrhea, noticed his urine was dark and red when giving a sample earlier today. He has generalized weakness. He states he almost fell over a wild mushroom hunting this weekend. He denies diarrhea, cough, headache, vision change, sore throat, shortness of breath, chest pain, palpitations, wheezing, dysuria, frequency, urgency. Patient lives with his . He states his daughter who lives in [place] is in charge of his medical care. There is an extensive telephone encounter from today citing ongoing concerns about confusion and inability to safely drive. His sister suggested he come here for evaluation tonight because it is part of the [facility] system. The history is provided by the patient (Daughter Carmina by telephone calls). Review of Systems Objective BP 132/82 Pulse 99 Temp 36.8 ?C (98.3 ?F) (Tympanic) Resp 16 Wt 92.2 kg (203 lb 4.2 oz) SpO2 95% BMI 28.75 kg/m? Last 4 Encounter Wt Readings: Date: Wt: 01/23/2025 92.2 kg (203 lb 4.2 oz) 08/08/2024 107 kg (235 lb 14.3 oz) 08/08/2024 90 kg (198 lb 6.6 oz) 07/05/2024 95.1 kg (209 lb 10.5 oz) Physical Exam Constitutional: General: He is not in acute distress. Appearance: Normal appearance. He is not ill-appearing, toxic-appearing or diaphoretic. HENT: Ears: Comments: Bilateral partial cerumen impaction Nose: No congestion or rhinorrhea. Mouth/Throat: Mouth: Mucous membranes are moist. Pharynx: No oropharyngeal exudate or posterior oropharyngeal erythema. Eyes: Extraocular Movements: Extraocular movements intact. Conjunctiva/sclera: Conjunctivae normal. Pupils: Pupils are equal, round, and reactive to light. Cardiovascular: Rate and Rhythm: Normal rate and regular rhythm. Heart sounds: No murmur heard. Pulmonary: Effort: Pulmonary effort is normal. Breath sounds: Normal breath sounds. No wheezing, rhonchi or rales. Abdominal: General: Abdomen is flat. Palpations: There is no mass. Tenderness: There is no abdominal tenderness. There is no right CVA tenderness or left CVA tenderness. Musculoskeletal: Cervical back: Neck supple. No tenderness. Lymphadenopathy: Cervical: No cervical adenopathy. Skin: Coloration: Skin is not jaundiced or pale. Neurological: Mental Status: He is alert and oriented to person, place, and time. Cranial Nerves: No cranial nerve deficit. Deep Tendon Reflexes: Reflexes abnormal (3+/4). Comments: Right hand tremor Psychiatric: Mood and Affect: Mood normal. Thought Content: Thought content normal. Comments: Engaging and admits people are telling him he is confused. Speech is fluent and not pressured. Somewhat inattentive thought process. MINI-MENTAL STATE EXAMINATION (MMSE) Make the patient comfortable and establish rapport. Ask questions in the order listed. Total possible score is 30. ORIENTATION 1. What is the (year) (season) (date) (day) (month)? Max score=5 Patient's score=5 2. Where are we? (state) (county) (town or city) (hospital) (floor)? Max score=5 Patient's score=5 REGISTRATION Ask the patient if you may test his/her memory. Then say the names of 3 unrelated objects, clearly and slowly, about one second for each (eg, apple, table, agustina). After you have said all 3, ask him/her to repeat them. This first repetition determines the score(0-3), but keep saying them until he/she can repeat all 3, up to 6 trials. Max score=3 Patient's score=3 ATTENTION AND CALCULATION Ask the patient to begin with 100 and count backwards by 7. Stop after 5 subtractions (93, 86, 79, 72, 65). Score the total number of correct answers. If the patient cannot or will not perform the serial 7s task, ask him/her to spell the word WORLD backwards. The score is the number of letters in the correct order (eg, DLROW=5; DLRW=4; DLORW, DLW=3; OW=2; DRLWO=1). Max score=5 Patient's score=1 RECALL Ask the patient to recall the 3 items repeated above (eg, apple, table, agustina). Max score=3 Patient's score=2 LANGUAGE Naming: Show the patient a wristwatch and ask him/her what it is. Repeat for pencil. Max score=2 Patient's score=2 Repetition: Ask the patient to repeat the phrase No ifs, ands, or buts: after you. Max score=1 Patient's score=1 3-Stage Command: Give the patient a piece of blank paper and ask him/her to take a piece of paper in your right hand, fold it in half, put it on the floor. Score 1 point for each part correctly executed. Max score=3 Patient's score=3 Reading: On a blank piece of paper, print the sentence CLOSE YOUR EYES in letters large enough for the patient to see clearly. Ask him/her to read it and do what it says. Score 1 point only if he/she actually closes his/her eyes. Max score=1 Patient's score=1 Writing: Give the patient a blank piece of paper and ask him/her to write a sentence. Do not dictate a sentence; it is to be written spontaneously. It must contain a subject and verb and be sensible. Correct grammar and punctuation are not necessary. Max score=1 Patient's score=1 Copying: Ask the patient to copy the figure of intersecting pentagons exactly as it is. All 10 angles must be present and 2 must intersect to form a 4-sided figure to score 1 point. Tremor and rotation are ignored. Max score=1 Patient's score=0 MAXIMUM TOTAL SCORE = 30 TOTAL SCORE = 24/30 Suggested guideline for determining the severity of cognitive impairment: Mild: MMSE>21 Moderate: MMSE 10-20 Severe: MMSE<9 Expected decline in MMSE scores in untreated mild to moderate Alzheimer's patient is 2 to 4 points per year. *Adapted from Folstein et al.1 and Rashad and Folstein2. (c) 1974, 1997 [employer] Used with permission. References: 1. Logan MF, Folstein SE, [place]. Mini-Mental State: a practical method for grading the cognitive state of patients for the clinician. J Psychiatr Res. 1975; 12:189-198. 2. JR Rashad, Logan TINEO, Mini-Mental State Examination (MMSE). Psychopharm Bull. 1988;24:689-692. 3. Chriss De AndaT, García FJ, Go RD, Michele A, Atiya F. Neuropsychological function in Alzheimer's disease: pattern of impairment and rates of progression. Arch Neurol. 1988;45:263-268. 4. Ilya JA, Yomi B, Samir CabezasP, Jonna CAVAZOS. Predictors of cognitive and functional progression in patients with probable Alzheimer's disease. Neurology. 1992;42:7668-0347. Latest Ref Rng 01/23/2025 WBC 3.70 - 11.00 k/uL 10.60 RBC 4.20 - 6.00 m/uL 5.32 Hemoglobin 13.0 - 17.0 g/dL 16.0 Hematocrit 39.0 - 51.0 % 47.9 MCV 80.0 - 100.0 fL 90.0 MCH 26.0 - 34.0 pg 30.1 MCHC 30.5 - 36.0 g/dL 33.4 RDW-CV 11.5 - 15.0 % 13.2 Platelet Count 150 - 400 k/uL 300 MPV 9.0 - 12.7 fL 9.0 Neut% % 69.0 Abs Neut (ANC) 1.45 - 7.50 k/uL 7.33 Lymph% % 19.0 Abs Lymph 1.00 - 4.00 k/uL 2.01 Major% % 6.8 Abs Major <0.87 k/uL 0.72 Eosin% % 4.1 Abs Eosin <0.46 k/uL 0.43 Baso% % 0.8 Abs Baso <0.11 k/uL 0.08 Immature Gran % % 0.3 IMMATURE GRANS (ABS) <0.10 k/uL 0.03 NRBC /100 WBC 0.0 Absolute nRBC <0.01 k/uL <0.01 {ASSESSMENT/PLAN: 1. Confusion - ICD9: 298.9, ICD10: R41.0 (primary diagnosis) 2. Generalized weakness - ICD9: 780.79, ICD10: R53.1 3. Type 2 diabetes mellitus without complication, without long-term current use of insulin (HCC) - ICD9: 250.00, ICD10: E11.9 - GLUCOSE, BLOOD (POC) - 122 - UA DIP, URINE (POC) -positive for glucose, trace ketone, and protein. Negative for signs of infection including blood, nitrite, leukocyte esterase. CBC from today is without any abnormal levels. CMP and A1c are pending. Had a conversation with patient's daughter by telephone while he was in the room and after Mini-Mental status exam. She believes his recall of symptoms is not reliable. She is attempting to come to [place] to help with his care in 2 days. His exam and vitals are benign. He has rapid recall of person, place, and time. He has difficulty primarily with math, spelling, and drawing functions. He was released to follow up with PCP and neurology. His family will take him to the ED if there is concern for increasing confusion or dangerous behavior in the interim. Alecia Abraham MD History and Record Review Clinical information obtained from an independent historian. History obtained from or confirmed by: family member. External record(s) reviewed: prior outpatient record. Findings from review of outpatient records: Telephone encounter reporting confusion and dangerous driving today Differential Diagnoses - parkinson's dementia - sepsis is less likely for the following reason(s): normal CBC and vitals Disposition The patient was discharged. Greater than 40 minutes were spent in direct patient care, chart review, and communication with family. Procedures Allergies As of Date: 01/23/2025 Noted Allergy Reaction ACETAMINOPHEN 04/23/2023 8 - GI Upset HYDROCODONE 04/23/2023 8 - GI Upset TRAMADOL 04/23/2023 8 - GI Upset VICODIN (HYDROCODONE-ACETAMINOPHE*12/08/2023 8 - GI Upset Date Reviewed: 01/23/2025 Reviewed by: Sanjana Cazares LPN - Fully Assessed Reason for Visit: Nausea AND Vomiting [237] Cmt: Nausea, vomiting, bodyaches x 10 days Primary Visit Diagnosis:Confusion [R41.0] Other Visit Diagnoses:Generalized weakness [R53.1] Type 2 diabetes mellitus without complication, without long-term current use of insulin (HCC) [E11.9] Order(s):GLUCOSE, BLOOD (POC) [8552754] Order #: [id number]. #:[id number] UA DIP, URINE (POC) [5403518] Order #: [id number]. #:[id number] Prescriptions as of 01/23/2025 - atorvastatin (LIPITOR) 20 mg tablet TAKE 1 TABLET BY MOUTH ONCE DAILY AT BEDTIME - dapagliflozin propanediol (FARXIGA) 10 mg tablet Take 1 tablet by mouth daily with breakfast. - carbidopa-levodopa (SINEMET 25-100) 25-100 mg per tablet Take 2 tablets by mouth three times a day. - acetaminophen (TYLENOL) 500 mg tablet Take 2 tablets by mouth every 8 hours. - tamsulosin (FLOMAX) 0.4 mg Take 1 capsule by mouth once daily. - pantoprazole DR (PROTONIX) 40 mg tablet Take 1 tablet by mouth two times a day before meals at 6 am and 4 pm. - senna-docusate (SENNA-S) 8.6-50 mg per tablet Take 1 tablet by mouth two times a day. - lisinopril (ZESTRIL) 10 mg tablet Take 1 tablet by mouth once daily. - polyethylene glycol 3350 17 gram packet Take 1 Packet by mouth two times a day. Dissolve dose in 4 - 8 ounces of liquid and take as directed. - spironolactone (ALDACTONE) 25 mg tablet Take 1 tablet by mouth once daily. - aspirin 81 mg cap Take 81 mg by mouth once daily. - iv contrast (will be provided with radiology test) CTA Head/Neck W No IV access, insert saline lock prior to the sedation, infusion, injection for imaging exam. Discontinue saline lock post exam. If Pt. has a central line or IVAD, may access for administration according to line specific nursing protocol. Once exam is complete flush line and de-access according to line specific nursing protocol in the CT contrast administration guidelines link. - cloNIDine HCl (CATAPRES) 0.2 mg tablet Take 0.2 mg by mouth two times a day. - citalopram (CELEXA) 40 mg tablet Take 40 mg by mouth once daily. 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 Chronic bilateral low back pain with bilateral *04/18/2024 Parkinson's disease with dyskinesia (HCC) [G20.*04/18/2024 Aftercare [Z51.89] 06/29/2024 Status post total left knee replacement [Z96.65*06/29/2024 YUMIKO (acute kidney injury) (HCC) [N17.9] 06/30/2024 07/05/2024 Acute urinary retention [R33.8] 06/30/2024 07/13/2024 Malnutrition of mild degree (HCC) [E44.1] 07/01/2024 07/13/2024 Nausea and vomiting [R11.2] 07/03/2024 07/13/2024 UTI (urinary tract infection) [N39.0] 07/03/2024 07/05/2024 UTI (urinary tract infection) [N39.0] 07/06/2024 07/13/2024 YUMIKO (acute kidney injury) (HCC) [N17.9] 07/06/2024 07/13/2024 Hypotension [I95.9] 07/06/2024 07/13/2024 Level of Service: OFFICE/OUTPATIENT ESTABLISHED HIGH MDM 40 MIN [07471] Encounter Status:Closed by ALECIA ABRAHAM on 01/23/25 ALBUMIN/CREATININE RATIO, URINE Collect ed: 01/23/2025 3:19 PM Status: F Source: [facility] Order Comment: Specimen Type : URINE SPECIMEN Ordering Facility: [facility] Address: [address] [place] [address] TYPE CODE TESTS RESULT OUT OF RANGE REFERENCE UNITS LAB 2161-8(LOINC) Creat Ur-mCnc 158.0 20.0-300.0 m g/dL LAB 41948-8(LOINC ) Microalbumin Ur-mCnc 113.9 mg/L LAB 9318-7(LOINC) Albumin/Creat Ur 72 High <30 mg/g Result Comment: Adult Male a nd Female Nephrotic Criteria: <30 mg/g is considered normal to mildly increased 30-300 mg/g is considered moderately increased >300 mg/g is considered severely increased KDIGO. (2013). KDIGO 2012 Clinical Practice Guideline for the Evaluation and Management of Chronic Kidney Disease. Official Journal of the International Society of Nephrology, 3(1), 1-150. Performed By: #### UACR #### [facility] CLIA [id number] [address] [place] [address] [place] DEPRECATED HGB A1C BLD Collected: 01/23 3:16 PM Status: F Source: [facility] Comment: Specimen Type : BLOOD SPECIMEN Ordering Facility: [facility] Address: [address] [place] [address] TYPE CODE TESTS RESULT OUT OF RANGE REFERENCE UNITS LAB 4548-4(LOINC) HbA1c MFr Bld 6.4 High 4.3-5.6 % Result Comment: [employer] guidelines indicate that patients with HgbA1c in the range 5.7-6.4% are at increased risk for development of diabetes, and intervention by lifestyle modification may be beneficial. HgbA1c greater or equal to 6.5% is considered diagnostic of diabetes. LAB 14971-7(LOINC) Est. average glucose Bld gHb Est-mCnc 137 mg/dL Result Comment: eAG: (Estima miranda average glucose) is a calculated value from HgbA1c and is retail sales representative of the average blood glucose level in the last 2-3 month period. Performed By: #### 11427-6 # ### [facility] CLIA [id number] [address] [place] [address] [place] PSA SERPL-MCNC Collected: 3:16 PM Status: F Source: [facility] Comment: Specimen Type : BLOOD SPECIMEN Ordering Facility: [facility] Address: [address] [place] [address] TYPE CODE TESTS RESULT OUT OF RANGE REFERENCE UNITS LAB 2857-1(LOINC) PSA SerPl-mCnc 0.52 <2.60 ng/mL Result Comment: Total PSA te st methodology used is the Electrochemiluminescence Immunoassay by [employer]. Total PSA values by differing methodologies cannot be interchanged. Performed By: #### 2857-1 ## ## [facility] CLIA [id number] [address] [id number] [address] [place] CBC W AUTO DIFF BLD Collected: 01/23/2025 3:[address] atus: F Source: [facility] Order Comment: Specimen Type : BLOOD SPECIMEN Ordering Facility: [facility] Address: [place] [address] TYPE CODE TESTS RESULT OUT OF RANGE REFERENCE UNITS LAB 6690-2([facility]) WBC # Bld Auto 10.60 3.70-11.00 k/uL LAB 789-8([facility]) RBC # Bld Auto 5.32 4.20-6.00 m/ uL LAB 718-7([facility]) Hgb Bld-mCnc 16.0 13.0-17.0 g/dL LAB 4544-3([facility]) Hct VFr Bld Auto 47.9 39.0-51.0 % LAB 787-2([facility]) MCV RBC Auto 90.0 80.0-100.0 fL LAB 785-6([facility]) MCH RBC Qn Auto 30.1 26.0-34.0 p g LAB 786-4([facility]) MCHC RBC Auto-mCnc 33.4 30.5-36.0 g/dL LAB 50979-2([facility]) RDW RBC-Rto 13.2 11.5-15.0 % LAB 777-3([facility]) Platelet # Bld Auto 300 150-400 k/uL LAB 64741-5([facility]) PMV Bld Auto 9.0 9.0-12.7 fL LAB 770-8([facility]) Neutrophils/leuk NFr Bld Auto 69.0 % LAB 751-8([facility]) Neutrophils # Bld Auto 7.33 1.45-7.50 k/uL LAB 736-9(INC) Lymphocytes/leuk NFr Bld Auto 19.0 % LAB 731-0(INC) Lymphocytes # Bld Auto 2.01 1.00-4.00 k/uL LAB 5905-5(INC) Monocytes/leuk NFr Bld Auto 6.8 % LAB 742-7(INC) Monocytes # Bld Auto 0.72 <0.87 k/uL LAB 713-8(INC) Eosinophil/leuk NFr Bld Auto 4.1 % LAB 711-2(LOINC) Eosinophil # Bld Auto 0.43 <0.46 k/uL LAB 706-2(LOINC) Basophils/leuk NFr Bld Auto 0.8 % LAB 704-7(LOINC) Basophils # Bld Auto 0.08 <0.11 k/uL LAB 38560-4(LOINC) Imm Granulocytes/jose rafael k NFr Bld Auto 0.3 % LAB 18369-2(INC) Imm Granulocytes # Bld Auto 0.03 <0.10 k/uL LAB 26598-0([facility]) nRBC/100 WBC Bld-Rto 0.0 /100 WBC LAB 771-6([facility]) nRBC # Bld Auto <0.01 <0.01 k/u L LAB 72492-8([facility]) Differential method Bld Auto Performed By: #### [id number] # ### [facility] CLIA [id number] [address] [place] [address] STATES OF [facility] COMP METAB 2000 PNL SERPL Collected: 3:16 PM Status: F Source: [facility] Order Comment: Specimen Type : BLOOD SPECIMEN Ordering Facility: [facility] Address: [address] [place] [address] TYPE CODE TESTS RESULT OUT OF RANGE REFERENCE UNITS LAB 2885-2(LOINC) Prot SerPl-mCnc 7.4 6.3-8.0 g/dL LAB 1751-7(LOINC) Albumin SerPl-mCnc 4.7 3.9-4.9 g/dL LAB 99377-2(LOINC) Calcium SerPl-mCnc 9.8 8.5-10.2 mg/dL LAB 1975-2(LOINC) Bilirub SerPl-mCnc 0.5 0.2-1.3 mg/dL LAB 6768-6(LOINC) ALP SerPl-cCnc 99 38-113 U/L LAB 1920-8(LOINC) AST SerPl-cCnc 16 14-40 U/L LAB 1742-6(LOINC) ALT SerPl-cCnc <5 Low 10-54 U/L LAB 2345-7(LOINC) Glucose SerPl-mCnc 121 High 74-99 mg/dL Result Comment: The [place] Diabetes Association (ADA) provides guidance for cutoff values for fasting glucose and random glucose. The ADA defines fasting as no caloric intake for at least 8 hours. Fasting plasma glucose results between 100 to 125 mg/dL indicate increased risk for diabetes (prediabetes). Fasting plasma glucose results greater than or equal to 126 mg/dL meet the criteria for diagnosis of diabetes. In the absence of unequivocal hyperglycemia, results should be confirmed by repeat testing. In a patient with classic symptoms of hyperglycemia or hyperglycemic crisis, random plasma glucose results greater than or equal to 200 mg/dL meet the criteria for diagnosis of diabetes. Reference: Standards of Medical Care in Diabetes 2016, [employer] Diabetes Association. Diabetes Care. 2016.39(Suppl 1). LAB 3094-0(LOINC) BUN SerPl-mCnc 25 High 9-24 mg/ dL LAB 2160-0(LOINC) Creat SerPl-mCnc 1.31 High 0.73-1.22 mg/dL LAB 2951-2(LOINC) Sodium SerPl-sCnc 138 136-144 mmol/L LAB 2823-3(LOINC) Potassium SerPl-sCnc 4.3 3.7-5.1 mmol/L LAB 2075-0(LOINC) Chloride SerPl-sCnc 101 98-107 mmol/L LAB 2028-9(LOINC) CO2 SerPl-sCnc 26 22-30 mmo l/L LAB 91449-6(LOINC) Anion Gap SerPl-sCnc 11 8-15 mmol/L LAB 46452-3(LOINC) Creatinine + eGFR Pnl SerPlBld 60 >=60 mL/min/1 .73m??? Result Comment: Estimated Gl omerular Filtration Rate (eGFR) is calculated using the 2020 CKD-EPI creatinine equation. This equation utilizes serum creatinine, sex, and age as parameters. The creatinine assay has traceable calibration to isotope dilution-mass spectrometry. Refer to KDIGO guidelines for clinical interpretation. In patients with unstable renal function, e.g. those with acute kidney injury, the eGFR may not accurately reflect actual GFR. Performed By: #### 26818-9 # ### [facility] CLIA [id number] [address] [place] [address] STATES OF STEVE CNPN Observed: 01/23/2025 12:00 AM Status: COMPLETED Source: [facility] Telephone (NIQ) MAITENICK Rea ([id number]) 1960 M Date Time Provider Department 01/23/25 MIRANDA DEL RIO NIArely During your visit today, we recorded the following information about you: Rosanna Still 01/23/2025 11:09 AM Signed Daughter is calling for a return call in regards to patient declining in health, and still driving. Please call Carmina at [phone] Ludwig Fishman, RN 01/23/2025 1:39 PM Signed This RN returning patient daughter's call. Left non-detailed VM on non-self Id machine. Provided office number to call back. TRISTON TrejoN, RN, BA Ludwig Fishman, RN 01/23/2025 2:05 PM Signed Carmina returning this RN's call. Pt states that she is having an issue with him driving due to increased confusion. He will not stop driving, will not listen to her, is having increased memory issues, they are now constant. He will no longer carry his phone on him and does not remember why he needs it. They cannot figure out where he is half the time. Definite worsening mental status. He has tried to take away his keys/car and he refuses. She states that they live in [place] and it is hard to monitor his every move up here. He was pulled over yesterday by [facility] [employer]. Received 3 tickets for no seat belt, lapsed insurance, and speeding/driving recklessly. Unsure why OS did not take his license on the spot. Has ran out of gas in his car twice last week. Has been driving all over the [place] [place] and does not know why or what he is doing it for. He also showed up at his former PCP's office last week (who he has not seen in 10 years) stating that he was a patient and needed to be seen. They called the daughter and were concerned about his mental state, but let him drive home. He is willing to go to any appointments and will likely complete an OT appointment per daughter as long as we do no inform him it is for a driving evaluation. Are we beyond this point? Carmina states that she can come up fo any appointment as they fly up here all the time and money is not an issue. She wants to do what is best for her father. She also states that her father's is Slovak and does not really speak nigerian. The patient also does not speak sami. Carmina states that it was recommended to her to call adult cps as the patients is not able to adequately take care of him d/t the language barrier. Will pass message along to TW to determine next steps. DIANE Trejo, RN, BA Ludwig Fishman RN 01/23/2025 3:26 PM Signed This RN called patient daughter, Carmina, back and relayed that Dr. Del Rio will be sending in a doctor medical statement to the [facility] tomorrow when he is in office, No OT eval as it is past the point. Instructed her to make appt with PCP for assessment/infection workup. Has called this afternoon and cannot get in until the first week of February. States that this is too long if he has an infection. She does ask that Dr. Del Rio place a UA for him and he will go in an get that done tomorrow in [place]. She asked that we break the news to him that he is no longer able to drive. It will not go over well if she or another family member tells him. This RN stated that this is an in-person conversation and he will need to be seen in a follow-up to relay this. They have an appointment in July and are on the waitlist. This RN suggested she book the appointment with his PCP. She states that she is basically worthless. This RN stated that we will need some help in this matter. We may want to reach out to Dr. Benitez to assist. In addition, Carmina asked if she should take the patient to the ER? This RN suggested that would be the fastest way to get any labs done without waiting until tomorrow. The ER is able to see our telephone conversations and see that TW will be sending in correspondence to [facility] to discontinue the patients license. The ER doctor can explain that the patient should no longer drive. Carmina did ask if the [facility] physically will come and take the license. This RN stated that she is not familiar, but they do electronically discontinue the license and he will not be allowed to renew it. This RN does not believe that the police come to the patient home to physically tale the license as it is a civil matter and the family is responsible for taking the keys/car from the family member. DIANE Trejo, RN, Miranda Nair MD 01/23/2025 3:35 PM Signed Looks like he actually just had some blood work done via his PCP though it was an old order from November, only a urine needs added which I ordered. If this change is sudden then it is definitely ER appropriate. Allergies As of Date: 01/23/2025 Noted Allergy Reaction ACETAMINOPHEN 04/23/2023 8 - GI Upset HYDROCODONE 04/23/2023 8 - GI Upset TRAMADOL 04/23/2023 8 - GI Upset VICODIN (HYDROCODONE-ACETAMINOPHE*12/08/2023 8 - GI Upset Date Reviewed: 01/23/2025 Reviewed by: Sanjana Cazares LPN - Fully Assessed Reason for Visit: Patient Update [1234] Primary Visit Diagnosis:Encephalopathy, unspecified type [G93.40] Order(s):URINALYSIS (WITH MICROSCOPIC) WITH CULTURE IF INDICATED [SQUACII] Order #: [id number] FUTURE Prescriptions as of 01/25/2025 - atorvastatin (LIPITOR) 20 mg tablet TAKE 1 TABLET BY MOUTH ONCE DAILY AT BEDTIME - dapagliflozin propanediol (FARXIGA) 10 mg tablet Take 1 tablet by mouth daily with breakfast. - carbidopa-levodopa (SINEMET 25-100) 25-100 mg per tablet Take 2 tablets by mouth three times a day. - acetaminophen (TYLENOL) 500 mg tablet Take 2 tablets by mouth every 8 hours. - tamsulosin (FLOMAX) 0.4 mg Take 1 capsule by mouth once daily. - pantoprazole DR (PROTONIX) 40 mg tablet Take 1 tablet by mouth two times a day before meals at 6 am and 4 pm. - senna-docusate (SENNA-S) 8.6-50 mg per tablet Take 1 tablet by mouth two times a day. - lisinopril (ZESTRIL) 10 mg tablet Take 1 tablet by mouth once daily. - polyethylene glycol 3350 17 gram packet Take 1 Packet by mouth two times a day. Dissolve dose in 4 - 8 ounces of liquid and take as directed. - spironolactone (ALDACTONE) 25 mg tablet Take 1 tablet by mouth once daily. - aspirin 81 mg cap Take 81 mg by mouth once daily. - iv contrast (will be provided with radiology test) CTA Head/Neck W No IV access, insert saline lock prior to the sedation, infusion, injection for imaging exam. Discontinue saline lock post exam. If Pt. has a central line or IVAD, may access for administration according to line specific nursing protocol. Once exam is complete flush line and de-access according to line specific nursing protocol in the CT contrast administration guidelines link. - cloNIDine HCl (CATAPRES) 0.2 mg tablet Take 0.2 mg by mouth two times a day. - citalopram (CELEXA) 40 mg tablet Take 40 mg by mouth once daily. 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 Chronic bilateral low back pain with bilateral *04/18/2024 Parkinson's disease with dyskinesia (HCC) [G20.*04/18/2024 Aftercare [Z51.89] 06/29/2024 Status post total left knee replacement [Z96.65*06/29/2024 YUMIKO (acute kidney injury) (HCC) [N17.9] 06/30/2024 07/05/2024 Acute urinary retention [R33.8] 06/30/2024 07/13/2024 Malnutrition of mild degree (HCC) [E44.1] 07/01/2024 07/13/2024 Nausea and vomiting [R11.2] 07/03/2024 07/13/2024 UTI (urinary tract infection) [N39.0] 07/03/2024 07/05/2024 UTI (urinary tract infection) [N39.0] 07/06/2024 07/13/2024 YUMIKO (acute kidney injury) (HCC) [N17.9] 07/06/2024 07/13/2024 Hypotension [I95.9] 07/06/2024 07/13/2024 Encounter Status:Closed by LUDWIG FISHMAN on 01/25/25 PALOV Observed: 10/20/2024 3:45 PM Status: COMPLETED Source: [facility] Office Visit (PODIWS) NICK ARORA ([id number]) 1960 M Date Time Provider Department 10/20/24 3:45 PM KATE AGUDELO PODIWS During your visit today, we recorded the following information about you: Dayna Suresh LPN 10/21/2024 7:59 AM Signed AMB ROOMING INTAKE FLOWSHEET DATA Pain Pain Level: 2 Pain Location: Other: See Comment (bilateral feet) Description: Itching Patient presents with: Left Foot - New, Itching, Diabetic Foot Care Right Foot - New, Itching, Diabetic Foot Care Patient states feet are always cold. A1C 2 months ago was 5.6 CA Baugh Matthew 10/21/2024 7:59 AM Signed Consultation requested by Dr. Benitez for an opinion regarding foot pain. My final recommendations will be communicated back to the requesting physician by way of shared Medical record or letter to requesting physician via US mail. Initial Office Visit Subjective: This 64 year old male presents to clinic for diabetic foot check. Patient has the following complaints: itching and coldness in feet. Patient presents to clinic for evaluation of b/l feet. His biggest issue is coldness of feet. He also complains of itching in feet. In fact, sometimes, he has to stop doing things because of itching Patient admits to being diabetic for multiple years now but his sugars are controlled so he was taken off medication. Patient -B/T/N in feet at this time. Patient -pain in legs when walking. No other pedal complaints at this time. No change in medications or medical history since last visit. PAIN EVALUATION 10/20/2024 1539 Pain Level: 2 Pain Location: Other: See Comment bilateral feet Description: Itching Hemoglobin A1C (%) Date Value 08/08/2024 5.6 02/26/2024 6.4 PCP: Aga Benitez MD PAST MEDICAL HISTORY Diagnosis Date Anxiety and depression BPH (benign prostatic hyperplasia) Congestive heart failure (HCC) Diabetes (HCC) Dyslipidemia Hypertension Kidney stone Spinal stenosis TIA (transient ischemic attack) Tremor Current Outpatient Medications Medication Sig dapagliflozin propanediol (FARXIGA) 10 mg tablet Take 1 tablet by mouth daily with breakfast. carbidopa-levodopa (SINEMET 25-100) 25-100 mg per tablet Take 2 tablets by mouth three times a day. acetaminophen (TYLENOL) 500 mg tablet Take 2 tablets by mouth every 8 hours. tamsulosin (FLOMAX) 0.4 mg Take 1 capsule by mouth once daily. pantoprazole DR (PROTONIX) 40 mg tablet Take 1 tablet by mouth two times a day before meals at 6 am and 4 pm. senna-docusate (SENNA-S) 8.6-50 mg per tablet Take 1 tablet by mouth two times a day. lisinopril (ZESTRIL) 10 mg tablet Take 1 tablet by mouth once daily. polyethylene glycol 3350 17 gram packet Take 1 Packet by mouth two times a day. Dissolve dose in 4 - 8 ounces of liquid and take as directed. spironolactone (ALDACTONE) 25 mg tablet Take 1 tablet by mouth once daily. atorvastatin (LIPITOR) 20 mg tablet Take 1 tablet by mouth daily at bedtime. aspirin 81 mg cap Take 81 mg by mouth once daily. iv contrast (will be provided with radiology test) CTA Head/Neck W No IV access, insert saline lock prior to the sedation, infusion, injection for imaging exam. Discontinue saline lock post exam. If Pt. has a central line or IVAD, may access for administration according to line specific nursing protocol. Once exam is complete flush line and de-access according to line specific nursing protocol in the CT contrast administration guidelines link. (Patient not taking: Reported on 08/08/2024) cloNIDine HCl (CATAPRES) 0.2 mg tablet Take 0.2 mg by mouth two times a day. citalopram (CELEXA) 40 mg tablet Take 40 mg by mouth once daily. No current facility-administered medications for this visit. ALLERGIES Allergen Reactions Acetaminophen GI Upset Hydrocodone GI Upset Tramadol GI Upset Vicodin [Hydrocodon* GI Upset PAST SURGICAL HISTORY Procedure Laterality Date TOTAL KNEE REPLACEMENT Left 06/2024 FAMILY HISTORY Problem Relation Age of Onset Sudden Cardiac Father advanced age at 90 yo other (HTN) Father Cancer Mother Diabetes Mother other (HTN) Mother Stroke Mother Diabetes Sister other (DM) Sister other (HTN) Sister other (diabetic retinopathy) Sister Cancer Brother colon cancer , stomach cancer other (dm) Brother Stroke Brother Social History Tobacco Use Smoking status: Never Smokeless tobacco: Never Vaping Use Vaping status: Never Used Substance Use Topics Alcohol use: Not Currently Comment: none now Drug use: Never REVIEW OF SYSTEMS GENERAL: Negative for Malaise, significant weight loss, fever RESPIRATORY: Negative for cough, wheezing and shortness of breath CARDIOVASCULAR: Negative for chest pain, leg swelling and palpitations GI: Negative for abdominal discomfort, blood in stools or black stools and change in bowel habits : Negative for dysuria, frequency and incontinence MUSCULOSKELETAL: Negative for joint pain or swelling, back pain, and muscle pain. SKIN: Negative for lesions, rash, and itching. HEMATOLOGY/LYMPHOLOGY Negative for prolonged bleeding, bruising easily, and swollen nodes. ENDOCRINE: Negative for cold or heat intolerance, polyuria, polydipsia and goiter. NEURO: negative The remainder of the review of systems is noncontributory. Objective: Patient presents to clinic ambulating in [facility] Constitutional: Pt is a well developed 64 year old male who is alert, oriented, cooperative and in no apparent distress. Eyes: Following during examination. No redness or drainage. Respiratory: RR normal and nonlabored. Even breathing. No evidence of distress. Psychology: Patient is engaged during conversation. Normal affect and mood. Does not appear depressed or anxious. Vasc: DP and PT pulses are non palpable left and palpable right. CFT is less than 5 seconds bilateral. Skin temperature is warm to cool proximal to distal bilateral. There is mild edema or varicosities noted. Hair growth absent. Neuro: Protective sensation is intact to the foot and toes when tested with the 5.07 SWM bilateral. Vibratory sensation is absent at the hallux bilateral. + Significant neurological defecits. Derm: Inspection and palpation performed. Nails 1-5 b/l are elongated, yellow. Left 3rd toenail is incurvated to lateral border with granulation tissue. No drainage. Mild swelling. No redness. Pain present to left 3rd toe. skin is of normal turgor and texture. Hyperkeratosis noted to not present. NO ulcerations, scars, verruca or other lesions noted. Ortho: Ankle joint DF is full with the knee extended and full with knee flexed. No pain or crepitus noted. STJ, MTJ ROM are full and free of pain or crepitus. Muscle strength is 5/5 for dorsiflexors, plantarflexors, inverters, everters. Digital deformities include none. Assessment: (E11.9) Type 2 diabetes mellitus without complication, without long-term current use of insulin ([facility]) (primary encounter diagnosis) (R09.89) Diminished pulses in lower extremity (B35.1) Onychomycosis (L60.0) Ingrowing toenail (M79.675) Pain in toe of left foot Plan: 1. Patient was seen and evaluated. 2. Patient was instructed on the continued importance of diabetic foot care along with proper diet and keeping their blood sugar under control to prevent complications. Stressed the importance of avoiding barefoot walking, wearing good shoes and inspection of feet. Instructions given both oral and written. 3. Patient has coldness of feet and occasional itiching. I do not see any open wounds or areas to suggest athlete's foot. His pulses are faint on exam and his feet are cold. I am going to check pvr to access perfusion. Question if some of his complaint is related to vascular disease vs neuropathy. Will check pvr. 4. On exam, patient does have ingrown nail of left hallux lateral nail border. Mild granulation tissue. Debridement of toenails 1-5 b/l was performed. Will place patient on antibiotic. ALICE Wang Kate 10/20/2024 3:57 PM Signed Diabetes Foot Care Instructions When you have diabetes, proper foot care is very important. Poor foot care may lead to amputation of a foot or leg. As a person with diabetes, you are more vulnerable to foot problems, because diabetes can damage your nerves and reduce blood flow to your feet. Here are some diabetes foot care tips to follow: Wash and Dry Your Feet Daily Use mild soaps Use warm water Pat your skin dry; do not rub. Thoroughly dry your feet. After washing, use lotion on your feet to prevent cracking. Do not put lotion between your toes. Examine Your Feet Each Day Check the tops and bottoms of your feet. Have someone else look at your feet if you cannot see them. Check for dry, cracked skin. Look for blisters, cuts, scratches, or other sores. Check for redness, increased warmth, or tenderness when touching any area of your feet. Check for ingrown toenails, corns, and calluses. If you get a blister or sore from your shoes, do not pop it. Apply a bandage and wear a different pair of shoes. Take Care of Your Toenails Cut toenails after bathing, when they are soft. Cut toenails straight across and smooth with a nail file. Avoid cutting into the corners of toes. Do not cut cuticles. If you have neuropathy (or decreased sensation in your feet) a upkeep worker should always cut your toenails. Be Careful When Exercising Walk and exercise in comfortable shoes. Do not exercise when you have open sores on your feet. Protect Your Feet With Shoes and Socks Never go barefoot. Always protect your feet by wearing shoes or hard-soled slippers or footwear. Avoid shoes with high heels and pointed toes. Avoid shoes that expose your toes or heels (such as open-toed shoes or sandals). These types of shoes increase your risk for injury and potential infections. Try on new footwear with the type of socks you usually wear. Do not wear new shoes for more than an hour at a time. Change your socks daily. Look and feel inside your shoes before putting them on to make sure there are no foreign objects or rough areas. Avoid tight socks. Wear natural-fiber socks (cotton, wool, or a cotton-wool blend). Wear special shoes if your health care provider recommends them. Wear shoes/boots that will protect your feet from various weather conditions (cold, moisture, etc.). Make sure your shoes fit properly. If you have neuropathy (nerve damage), you may not notice that your shoes are too tight. Perform the footwear test described below. Footwear Test Use this simple test to see if your shoes fit correctly: Stand on a piece of paper. (Make sure you are standing and not sitting, because your foot changes shape when you stand.) Trace the outline of your foot. Trace the outline of your shoe. Compare the tracings: Is the shoe too narrow? Is your foot crammed into the shoe? The shoe should be at least 1/2 inch longer than your longest toe and as wide as your foot. Proper Shoe Choices The following types of shoes are best for people with diabetes Closed toes and heels Leather uppers without a seam inside At least 1/2 inch extra space at the end of your longest toe Inside of shoe should be soft with no rough areas Outer sole should be made of stiff material Shoes should be at least as wide as your feet Tips for Foot Care in Diabetes Don't wait to treat a minor foot problem if you have diabetes. Follow your health care provider's guidelines and first aid guidelines. Report foot injuries and infections to your health care provider immediately. Check water temperature with your elbow, not your foot. Do not use a heating pad on your feet. Do not cross your legs. Do not self-treat your corns, calluses, or other foot problems. Go to your health care provider or upkeep worker to treat these conditions. Referring Provider: AGA BENITEZ [[id number]] Allergies As of Date: 10/20/2024 Noted Allergy Reaction ACETAMINOPHEN 04/23/2023 8 - GI Upset HYDROCODONE 04/23/2023 8 - GI Upset TRAMADOL 04/23/2023 8 - GI Upset VICODIN (HYDROCODONE-ACETAMINOPHE*12/08/2023 8 - GI Upset Date Reviewed: 10/20/2024 Reviewed by: Dayna Suresh LPN - Fully Assessed Reason for Visit: New [608478] Itching [12107] Diabetic Foot Care [916] New [881631] Itching [54435] Diabetic Foot Care [916] Primary Visit Diagnosis:Type 2 diabetes mellitus without complication, without long-term current use of insulin (HCC) [E11.9] Other Visit Diagnoses:Diminished pulses in lower extremity [R09.89] Onychomycosis [B35.1] Ingrowing toenail [L60.0] Pain in toe of left foot [M79.675] Order(s):CONSULT TO PODIATRY [9034] Order #: [id number]: 1 PVR ANK PRESS [facility] [[id number]] Order #: [id number] FUTURE amoxicillin-clavulanate potassium (AUGMENTIN) 875-125 mg per tabletTake 1 tablet by mouth two times a day for 7 days. FOR 7 DAYS.Disp: 14 tabletRfl: 0 Prescriptions as of 10/21/2024 - amoxicillin-clavulanate potassium (AUGMENTIN) 875-125 mg per tablet Take 1 tablet by mouth two times a day for 7 days. FOR 7 DAYS. - dapagliflozin propanediol (FARXIGA) 10 mg tablet Take 1 tablet by mouth daily with breakfast. - carbidopa-levodopa (SINEMET 25-100) 25-100 mg per tablet Take 2 tablets by mouth three times a day. - acetaminophen (TYLENOL) 500 mg tablet Take 2 tablets by mouth every 8 hours. - tamsulosin (FLOMAX) 0.4 mg Take 1 capsule by mouth once daily. - pantoprazole DR (PROTONIX) 40 mg tablet Take 1 tablet by mouth two times a day before meals at 6 am and 4 pm. - senna-docusate (SENNA-S) 8.6-50 mg per tablet Take 1 tablet by mouth two times a day. - lisinopril (ZESTRIL) 10 mg tablet Take 1 tablet by mouth once daily. - polyethylene glycol 3350 17 gram packet Take 1 Packet by mouth two times a day. Dissolve dose in 4 - 8 ounces of liquid and take as directed. - spironolactone (ALDACTONE) 25 mg tablet Take 1 tablet by mouth once daily. - atorvastatin (LIPITOR) 20 mg tablet Take 1 tablet by mouth daily at bedtime. - aspirin 81 mg cap Take 81 mg by mouth once daily. - iv contrast (will be provided with radiology test) CTA Head/Neck W No IV access, insert saline lock prior to the sedation, infusion, injection for imaging exam. Discontinue saline lock post exam. If Pt. has a central line or IVAD, may access for administration according to line specific nursing protocol. Once exam is complete flush line and de-access according to line specific nursing protocol in the CT contrast administration guidelines link. - cloNIDine HCl (CATAPRES) 0.2 mg tablet Take 0.2 mg by mouth two times a day. - citalopram (CELEXA) 40 mg tablet Take 40 mg by mouth once daily. 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/18/2024 Chronic bilateral low back pain with bilateral *04/18/2024 Parkinson's disease with dyskinesia (HCC) [G20.*04/18/2024 Aftercare [Z51.89] 06/29/2024 Status post total left knee replacement [Z96.65*06/29/2024 YUMIKO (acute kidney injury) (HCC) [N17.9] 06/30/2024 07/05/2024 Acute urinary retention [R33.8] 06/30/2024 07/13/2024 Malnutrition of mild degree (HCC) [E44.1] 07/01/2024 07/13/2024 Nausea and vomiting [R11.2] 07/03/2024 07/13/2024 UTI (urinary tract infection) [N39.0] 07/03/2024 07/05/2024 UTI (urinary tract infection) [N39.0] 07/06/2024 07/13/2024 YUMIKO (acute kidney injury) (HCC) [N17.9] 07/06/2024 07/13/2024 Hypotension [I95.9] 07/06/2024 07/13/2024 Other instructions from your clinician: Diabetes Foot Care Instructions When you have diabetes, proper foot care is very important. Poor foot care may lead to amputation of a foot or leg. As a person with diabetes, you are more vulnerable to foot problems, because diabetes can damage your nerves and reduce blood flow to your feet. Here are some diabetes foot care tips to follow: Wash and Dry Your Feet Daily Use mild soaps Use warm water Pat your skin dry; do not rub. Thoroughly dry your feet. After washing, use lotion on your feet to prevent cracking. Do not put lotion between your toes. Examine Your Feet Each Day Check the tops and bottoms of your feet. Have someone else look at your feet if you cannot see them. Check for dry, cracked skin. Look for blisters, cuts, scratches, or other sores. Check for redness, increased warmth, or tenderness when touching any area of your feet. Check for ingrown toenails, corns, and calluses. If you get a blister or sore from your shoes, do not pop it. Apply a bandage and wear a different pair of shoes. Take Care of Your Toenails Cut toenails after bathing, when they are soft. Cut toenails straight across and smooth with a nail file. Avoid cutting into the corners of toes. Do not cut cuticles. If you have neuropathy (or decreased sensation in your feet) a upkeep worker should always cut your toenails. Be Careful When Exercising Walk and exercise in comfortable shoes. Do not exercise when you have open sores on your feet. Protect Your Feet With Shoes and Socks Never go barefoot. Always protect your feet by wearing shoes or hard-soled slippers or footwear. Avoid shoes with high heels and pointed toes. Avoid shoes that expose your toes or heels (such as open-toed shoes or sandals). These types of shoes increase your risk for injury and potential infections. Try on new footwear with the type of socks you usually wear. Do not wear new shoes for more than an hour at a time. Change your socks daily. Look and feel inside your shoes before putting them on to make sure there are no foreign objects or rough areas. Avoid tight socks. Wear natural-fiber socks (cotton, wool, or a cotton-wool blend). Wear special shoes if your health care provider recommends them. Wear shoes/boots that will protect your feet from various weather conditions (cold, moisture, etc.). Make sure your shoes fit properly. If you have neuropathy (nerve damage), you may not notice that your shoes are too tight. Perform the footwear test described below. Footwear Test Use this simple test to see if your shoes fit correctly: Stand on a piece of paper. (Make sure you are standing and not sitting, because your foot changes shape when you stand.) Trace the outline of your foot. Trace the outline of your shoe. Compare the tracings: Is the shoe too narrow? Is your foot crammed into the shoe? The shoe should be at least 1/2 inch longer than your longest toe and as wide as your foot. Proper Shoe Choices The following types of shoes are best for people with diabetes Closed toes and heels Leather uppers without a seam inside At least 1/2 inch extra space at the end of your longest toe Inside of shoe should be soft with no rough areas Outer sole should be made of stiff material Shoes should be at least as wide as your feet Tips for Foot Care in Diabetes Don't wait to treat a minor foot problem if you have diabetes. Follow your health care provider's guidelines and first aid guidelines. Report foot injuries and infections to your health care provider immediately. Check water temperature with your elbow, not your foot. Do not use a heating pad on your feet. Do not cross your legs. Do not self-treat your corns, calluses, or other foot problems. Go to your health care provider or upkeep worker to treat these conditions. Prescriptions ordered this encounter Disp Refills Start End AMOXICILLIN 875 MG-POTASSIUM CLAVULA* 14 t* 0 10/20/2024 10/27/2024 Route: ORAL Sig: Take 1 tablet by mouth two times a day for 7 days. FOR 7 DAYS. Encounter Status:Closed by KATE AGUDELO DPM on 10/21/24 PROGRESS Observed: 10/20/2024 3:43 PM Status: COMPLETED Source: [facility] HNO ID: [id number] Author: KATE AGUDELO, ? Service: ? Author Type: Physician Type: Progress Notes Filed: 10/21/2024 07:59 Note Text: Consultation requested by Dr. Benitez for an opinion regarding foot pain. My final recommendations will be communicated back to the requesting physician by way of shared Medical record or letter to requesting physician via US mail. Initial Office Visit Subjective: This 64 year old male presents to clinic for diabetic foot check. Patient has the following complaints: itching and coldness in feet. Patient presents to clinic for evaluation of b/l feet. His biggest issue is coldness of feet. He also complains of itching in feet. In fact, sometimes, he has to stop doing things because of itching Patient admits to being diabetic for multiple years now but his sugars are controlled so he was taken off medication. Patient -B/T/N in feet at this time. Patient -pain in legs when walking. No other pedal complaints at this time. No change in medications or medical history since last visit. PAIN EVALUATION 10/20/2024 1539 Pain Level: 2 Pain Location: Other: See Comment bilateral feet Description: Itching Hemoglobin A1C (%) Date Value 08/08/2024 5.6 02/26/2024 6.4 PCP: Aga Benitez MD PAST MEDICAL HISTORY Diagnosis Date Anxiety and depression BPH (benign prostatic hyperplasia) Congestive heart failure (HCC) Diabetes (HCC) Dyslipidemia Hypertension Kidney stone Spinal stenosis TIA (transient ischemic attack) Tremor Current Outpatient Medications Medication Sig dapagliflozin propanediol (FARXIGA) 10 mg tablet Take 1 tablet by mouth daily with breakfast. carbidopa-levodopa (SINEMET 25-100) 25-100 mg per tablet Take 2 tablets by mouth three times a day. acetaminophen (TYLENOL) 500 mg tablet Take 2 tablets by mouth every 8 hours. tamsulosin (FLOMAX) 0.4 mg Take 1 capsule by mouth once daily. pantoprazole DR (PROTONIX) 40 mg tablet Take 1 tablet by mouth two times a day before meals at 6 am and 4 pm. senna-docusate (SENNA-S) 8.6-50 mg per tablet Take 1 tablet by mouth two times a day. lisinopril (ZESTRIL) 10 mg tablet Take 1 tablet by mouth once daily. polyethylene glycol 3350 17 gram packet Take 1 Packet by mouth two times a day. Dissolve dose in 4 - 8 ounces of liquid and take as directed. spironolactone (ALDACTONE) 25 mg tablet Take 1 tablet by mouth once daily. atorvastatin (LIPITOR) 20 mg tablet Take 1 tablet by mouth daily at bedtime. aspirin 81 mg cap Take 81 mg by mouth once daily. iv contrast (will be provided with radiology test) CTA Head/Neck W No IV access, insert saline lock prior to the sedation, infusion, injection for imaging exam. Discontinue saline lock post exam. If Pt. has a central line or IVAD, may access for administration according to line specific nursing protocol. Once exam is complete flush line and de-access according to line specific nursing protocol in the CT contrast administration guidelines link. (Patient not taking: Reported on 08/08/2024) cloNIDine HCl (CATAPRES) 0.2 mg tablet Take 0.2 mg by mouth two times a day. citalopram (CELEXA) 40 mg tablet Take 40 mg by mouth once daily. No current facility-administered medications for this visit. ALLERGIES Allergen Reactions Acetaminophen GI Upset Hydrocodone GI Upset Tramadol GI Upset Vicodin [Hydrocodon* GI Upset PAST SURGICAL HISTORY Procedure Laterality Date TOTAL KNEE REPLACEMENT Left 06/2024 FAMILY HISTORY Problem Relation Age of Onset Sudden Cardiac Father advanced age at 90 yo other (HTN) Father Cancer Mother Diabetes Mother other (HTN) Mother Stroke Mother Diabetes Sister other (DM) Sister other (HTN) Sister other (diabetic retinopathy) Sister Cancer Brother colon cancer , stomach cancer other (dm) Brother Stroke Brother Social History Tobacco Use Smoking status: Never Smokeless tobacco: Never Vaping Use Vaping status: Never Used Substance Use Topics Alcohol use: Not Currently Comment: none now Drug use: Never REVIEW OF SYSTEMS GENERAL: Negative for Malaise, significant weight loss, fever RESPIRATORY: Negative for cough, wheezing and shortness of breath CARDIOVASCULAR: Negative for chest pain, leg swelling and palpitations GI: Negative for abdominal discomfort, blood in stools or black stools and change in bowel habits : Negative for dysuria, frequency and incontinence MUSCULOSKELETAL: Negative for joint pain or swelling, back pain, and muscle pain. SKIN: Negative for lesions, rash, and itching. HEMATOLOGY/LYMPHOLOGY Negative for prolonged bleeding, bruising easily, and swollen nodes. ENDOCRINE: Negative for cold or heat intolerance, polyuria, polydipsia and goiter. NEURO: negative The remainder of the review of systems is noncontributory. Objective: Patient presents to clinic ambulating in [facility] Constitutional: Pt is a well developed 64 year old male who is alert, oriented, cooperative and in no apparent distress. Eyes: Following during examination. No redness or drainage. Respiratory: RR normal and nonlabored. Even breathing. No evidence of distress. Psychology: Patient is engaged during conversation. Normal affect and mood. Does not appear depressed or anxious. Vasc: DP and PT pulses are non palpable left and palpable right. CFT is less than 5 seconds bilateral. Skin temperature is warm to cool proximal to distal bilateral. There is mild edema or varicosities noted. Hair growth absent. Neuro: Protective sensation is intact to the foot and toes when tested with the 5.07 SWM bilateral. Vibratory sensation is absent at the hallux bilateral. + Significant neurological defecits. Derm: Inspection and palpation performed. Nails 1-5 b/l are elongated, yellow. Left 3rd toenail is incurvated to lateral border with granulation tissue. No drainage. Mild swelling. No redness. Pain present to left 3rd toe. skin is of normal turgor and texture. Hyperkeratosis noted to not present. NO ulcerations, scars, verruca or other lesions noted. Ortho: Ankle joint DF is full with the knee extended and full with knee flexed. No pain or crepitus noted. STJ, MTJ ROM are full and free of pain or crepitus. Muscle strength is 5/5 for dorsiflexors, plantarflexors, inverters, everters. Digital deformities include none. Assessment: (E11.9) Type 2 diabetes mellitus without complication, without long-term current use of insulin ([facility]) (primary encounter diagnosis) (R09.89) Diminished pulses in lower extremity (B35.1) Onychomycosis (L60.0) Ingrowing toenail (M79.675) Pain in toe of left foot Plan: 1. Patient was seen and evaluated. 2. Patient was instructed on the continued importance of diabetic foot care along with proper diet and keeping their blood sugar under control to prevent complications. Stressed the importance of avoiding barefoot walking, wearing good shoes and inspection of feet. Instructions given both oral and written. 3. Patient has coldness of feet and occasional itiching. I do not see any open wounds or areas to suggest athlete's foot. His pulses are faint on exam and his feet are cold. I am going to check pvr to access perfusion. Question if some of his complaint is related to vascular disease vs neuropathy. Will check pvr. 4. On exam, patient does have ingrown nail of left hallux lateral nail border. Mild granulation tissue. Debridement of toenails 1-5 b/l was performed. Will place patient on antibiotic. Kate Agudelo DPM PROGRESS Observed: 10/20/2024 3:38 PM Status: COMPLETED Source: [facility] HNO ID: [id number] Author: DAYNA SURESH LPN Service: ? Author Type: LICENSED NURSE Type: Progress Notes Filed: 10/21/2024 07:59 Note Text: AMB ROOMING INTAKE FLOWSHEET DATA Pain Pain Level: 2 Pain Location: Other: See Comment (bilateral feet) Description: Itching Patient presents with: Left Foot - New, Itching, Diabetic Foot Care Right Foot - New, Itching, Diabetic Foot Care Patient states feet are always cold. A1C 2 months ago was 5.6 Dayna Suresh LPN CNPN Observed: 10/20/2024 12:00 AM Status: COMPLETED Source: [facility] Telephone ([facility]) NICK ARORA ([id number]) 1960 M Date Time Provider Department 10/20/24 AGA BENITEZ [facility] During your visit today, we recorded the following information about you: Hilary Suárez MA 10/20/2024 2:21 PM Signed Orders are in office waiting for signature. [id number] Avani GaitanCHOCO 10/21/2024 3:51 PM Signed Faxed and scanned into chart. Avaniraisa Gaitan MA GaitanAvaniCHOCO 10/27/2024 1:29 PM Signed Order # [id number] received and placed in providers inbox. AvaniCHOCO Vasquez Alexandra, MA 10/28/2024 9:05 AM Signed Faxed back. Sent to scanning. Ana Rosa Law MA October 28, 2024 9:05 AM Allergies As of Date: 10/20/2024 Noted Allergy Reaction ACETAMINOPHEN 04/23/2023 8 - GI Upset HYDROCODONE 04/23/2023 8 - GI Upset TRAMADOL 04/23/2023 8 - GI Upset VICODIN (HYDROCODONE-ACETAMINOPHE*12/08/2023 8 - GI Upset Date Reviewed: 10/20/2024 Reviewed by: Dayna Suresh LPN - Fully Assessed Reason for Visit: Orders [681] Cmt: [facility] order received Prescriptions as of 10/28/2024 - dapagliflozin propanediol (FARXIGA) 10 mg tablet Take 1 tablet by mouth daily with breakfast. - carbidopa-levodopa (SINEMET 25-100) 25-100 mg per tablet Take 2 tablets by mouth three times a day. - acetaminophen (TYLENOL) 500 mg tablet Take 2 tablets by mouth every 8 hours. - tamsulosin (FLOMAX) 0.4 mg Take 1 capsule by mouth once daily. - pantoprazole DR (PROTONIX) 40 mg tablet Take 1 tablet by mouth two times a day before meals at 6 am and 4 pm. - senna-docusate (SENNA-S) 8.6-50 mg per tablet Take 1 tablet by mouth two times a day. - lisinopril (ZESTRIL) 10 mg tablet Take 1 tablet by mouth once daily. - polyethylene glycol 3350 17 gram packet Take 1 Packet by mouth two times a day. Dissolve dose in 4 - 8 ounces of liquid and take as directed. - spironolactone (ALDACTONE) 25 mg tablet Take 1 tablet by mouth once daily. - atorvastatin (LIPITOR) 20 mg tablet Take 1 tablet by mouth daily at bedtime. - aspirin 81 mg cap Take 81 mg by mouth once daily. - iv contrast (will be provided with radiology test) CTA Head/Neck W No IV access, insert saline lock prior to the sedation, infusion, injection for imaging exam. Discontinue saline lock post exam. If Pt. has a central line or IVAD, may access for administration according to line specific nursing protocol. Once exam is complete flush line and de-access according to line specific nursing protocol in the CT contrast administration guidelines link. - cloNIDine HCl (CATAPRES) 0.2 mg tablet Take 0.2 mg by mouth two times a day. - citalopram (CELEXA) 40 mg tablet Take 40 mg by mouth once daily. 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/18/2024 Chronic bilateral low back pain with bilateral *04/18/2024 Parkinson's disease with dyskinesia (HCC) [G20.*04/18/2024 Aftercare [Z51.89] 06/29/2024 Status post total left knee replacement [Z96.65*06/29/2024 YUMIKO (acute kidney injury) (HCC) [N17.9] 06/30/2024 07/05/2024 Acute urinary retention [R33.8] 06/30/2024 07/13/2024 Malnutrition of mild degree (HCC) [E44.1] 07/01/2024 07/13/2024 Nausea and vomiting [R11.2] 07/03/2024 07/13/2024 UTI (urinary tract infection) [N39.0] 07/03/2024 07/05/2024 UTI (urinary tract infection) [N39.0] 07/06/2024 07/13/2024 YUMIKO (acute kidney injury) (HCC) [N17.9] 07/06/2024 07/13/2024 Hypotension [I95.9] 07/06/2024 07/13/2024 Encounter Status:Closed by AVANI GAITAN on 10/21/24 SUDHIR Observed: 10/13/2024 12:00 AM Status: COMPLETED Source: [facility] Telephone ([employer]) NICK ARORA ([id number]) 1960 M Date Time Provider Department 10/13/24 AGA BENITEZ [facility] During your visit today, we recorded the following information about you: Hilary Suárez MA 10/13/2024 2:38 PM Signed Orders are in office waiting for signature. Aga Benitez MD 10/13/2024 4:42 PM Signed Signed and in outbox. MD Thanh Jean Alexandra, MA 10/14/2024 11:13 AM Signed Faxed back. Sent to scanning. Ana Rosa Lwa MA October 14, 2024 11:13 AM Allergies As of Date: 10/13/2024 Noted Allergy Reaction ACETAMINOPHEN 04/23/2023 8 - GI Upset HYDROCODONE 04/23/2023 8 - GI Upset TRAMADOL 04/23/2023 8 - GI Upset VICODIN (HYDROCODONE-ACETAMINOPHE*12/08/2023 8 - GI Upset Date Reviewed: 10/11/2024 Reviewed by: Luna Roach OD - Fully Assessed Reason for Visit: Orders [681] Cmt: [facility] order received Prescriptions as of 10/14/2024 - dapagliflozin propanediol (FARXIGA) 10 mg tablet Take 1 tablet by mouth daily with breakfast. - carbidopa-levodopa (SINEMET 25-100) 25-100 mg per tablet Take 2 tablets by mouth three times a day. - acetaminophen (TYLENOL) 500 mg tablet Take 2 tablets by mouth every 8 hours. - tamsulosin (FLOMAX) 0.4 mg Take 1 capsule by mouth once daily. - pantoprazole DR (PROTONIX) 40 mg tablet Take 1 tablet by mouth two times a day before meals at 6 am and 4 pm. - senna-docusate (SENNA-S) 8.6-50 mg per tablet Take 1 tablet by mouth two times a day. - lisinopril (ZESTRIL) 10 mg tablet Take 1 tablet by mouth once daily. - polyethylene glycol 3350 17 gram packet Take 1 Packet by mouth two times a day. Dissolve dose in 4 - 8 ounces of liquid and take as directed. - spironolactone (ALDACTONE) 25 mg tablet Take 1 tablet by mouth once daily. - atorvastatin (LIPITOR) 20 mg tablet Take 1 tablet by mouth daily at bedtime. - aspirin 81 mg cap Take 81 mg by mouth once daily. - iv contrast (will be provided with radiology test) CTA Head/Neck W No IV access, insert saline lock prior to the sedation, infusion, injection for imaging exam. Discontinue saline lock post exam. If Pt. has a central line or IVAD, may access for administration according to line specific nursing protocol. Once exam is complete flush line and de-access according to line specific nursing protocol in the CT contrast administration guidelines link. - cloNIDine HCl (CATAPRES) 0.2 mg tablet Take 0.2 mg by mouth two times a day. - citalopram (CELEXA) 40 mg tablet Take 40 mg by mouth once daily. 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/18/2024 Chronic bilateral low back pain with bilateral *04/18/2024 Parkinson's disease with dyskinesia (HCC) [G20.*04/18/2024 Aftercare [Z51.89] 06/29/2024 Status post total left knee replacement [Z96.65*06/29/2024 YUMIKO (acute kidney injury) (HCC) [N17.9] 06/30/2024 07/05/2024 Acute urinary retention [R33.8] 06/30/2024 07/13/2024 Malnutrition of mild degree (HCC) [E44.1] 07/01/2024 07/13/2024 Nausea and vomiting [R11.2] 07/03/2024 07/13/2024 UTI (urinary tract infection) [N39.0] 07/03/2024 07/05/2024 UTI (urinary tract infection) [N39.0] 07/06/2024 07/13/2024 YUMIKO (acute kidney injury) (HCC) [N17.9] 07/06/2024 07/13/2024 Hypotension [I95.9] 07/06/2024 07/13/2024 Encounter Status:Closed by ANA ROSA LAW on 10/14/24 PROGRESS Observed: 10/11/2024 9:23 AM Status: COMPLETED Source: [facility] ID: [id number] Author: LUNA ROACH OD Service: ? Author Type: RECONDITIONER Type: Progress Notes Filed: 10/11/2024 09:24 Note Text: 1. Type 2 diabetes mellitus without retinopathy (HCC) Risk of diabetic changes and vision loss can be minimized by tight control of blood sugar, blood pressure, and cholesterol levels. Educated patient to continue care with primary care doctor and/or technical professional to maintain optimum levels as they are important to avoid ocular complications. Encouraged patient to call the office immediately with any changes to vision or visual concerns. Advised to not wait until the next scheduled exam. 2. Combined forms of age-related cataract of both eyes Mild visual significance- will monitor 3. Regular astigmatism of both eyes 4. Presbyopia Finalized spec rx- no change 5. Dry eye syndrome of bilateral lacrimal glands Recommended Systane/Refresh 2-3x daily Follow-up in 1 year for MARIANNA or sooner as needed Luna Roach, FRANCISCO JAVIER October 11, 2024 9:23 AM CNCO Observed: 10/03/2024 12:00 AM Status: COMPLETED Source: [facility] Letter Text CNPN Observed: 09/19/2024 12:00 AM Status: COMPLETED Source: [facility] Telephone ([employer] CLAUDIA ARORAIAN Rea ([id number]) 1960 M Date Time Provider Department 09/19/24 AGA BENITEZ [facility] [place] [facility] During your visit today, we recorded the following information about you: Hilary Suárez MA 09/19/2024 9:59 AM Signed Orders are in office waiting for signature. [id number] Aga Benitez MD 09/19/2024 6:41 PM Signed Signed, in outbox. Aga Benitez MD Allergies As of Date: 09/19/2024 Noted Allergy Reaction ACETAMINOPHEN 04/23/2023 8 - GI Upset HYDROCODONE 04/23/2023 8 - GI Upset TRAMADOL 04/23/2023 8 - GI Upset VICODIN (HYDROCODONE-ACETAMINOPHE*12/08/2023 8 - GI Upset Date Reviewed: 08/08/2024 Reviewed by: Tracey Paul MA - Fully Assessed Reason for Visit: Orders [681] Cmt: [facility] order received ( Multiple orders ) Prescriptions as of 09/19/2024 - carbidopa-levodopa (SINEMET 25-100) 25-100 mg per tablet Take 2 tablets by mouth three times a day. - acetaminophen (TYLENOL) 500 mg tablet Take 2 tablets by mouth every 8 hours. - tamsulosin (FLOMAX) 0.4 mg Take 1 capsule by mouth once daily. - pantoprazole DR (PROTONIX) 40 mg tablet Take 1 tablet by mouth two times a day before meals at 6 am and 4 pm. - senna-docusate (SENNA-S) 8.6-50 mg per tablet Take 1 tablet by mouth two times a day. - lisinopril (ZESTRIL) 10 mg tablet Take 1 tablet by mouth once daily. - polyethylene glycol 3350 17 gram packet Take 1 Packet by mouth two times a day. Dissolve dose in 4 - 8 ounces of liquid and take as directed. - spironolactone (ALDACTONE) 25 mg tablet Take 1 tablet by mouth once daily. - atorvastatin (LIPITOR) 20 mg tablet Take 1 tablet by mouth daily at bedtime. - dapagliflozin propanediol (FARXIGA) 10 mg tablet Take 1 tablet by mouth daily with breakfast. - aspirin 81 mg cap Take 81 mg by mouth once daily. - iv contrast (will be provided with radiology test) CTA Head/Neck W No IV access, insert saline lock prior to the sedation, infusion, injection for imaging exam. Discontinue saline lock post exam. If Pt. has a central line or IVAD, may access for administration according to line specific nursing protocol. Once exam is complete flush line and de-access according to line specific nursing protocol in the CT contrast administration guidelines link. - cloNIDine HCl (CATAPRES) 0.2 mg tablet Take 0.2 mg by mouth two times a day. - citalopram (CELEXA) 40 mg tablet Take 40 mg by mouth once daily. 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/2024 Chronic bilateral low back pain with bilateral *04/18/2024 Parkinson's disease with dyskinesia (HCC) [G20.*04/18/2024 Aftercare [Z51.89] 06/29/2024 Status post total left knee replacement [Z96.65*06/29/2024 YUMIKO (acute kidney injury) (HCC) [N17.9] 06/30/2024 07/05/2024 Acute urinary retention [R33.8] 06/30/2024 07/13/2024 Malnutrition of mild degree (HCC) [E44.1] 07/01/2024 07/13/2024 Nausea and vomiting [R11.2] 07/03/2024 07/13/2024 UTI (urinary tract infection) [N39.0] 07/03/2024 07/05/2024 UTI (urinary tract infection) [N39.0] 07/06/2024 07/13/2024 YUMIKO (acute kidney injury) (HCC) [N17.9] 07/06/2024 07/13/2024 Hypotension [I95.9] 07/06/2024 07/13/2024 Encounter Status:Closed by AGA BENITEZ on 09/19/24 CNPN Observed: 08/26/2024 12:00 AM Status: COMPLETED Source: [facility] Telephone (4CQ) NICK ARORA ([id number]) 1960 M Date Time Provider Department 08/26/24 AGA BENITEZ 4CQ During your visit today, we recorded the following information about you: Amarilys Stoll 08/26/2024 1:04 PM Signed Lizandro is calling Aga Benitez MD today with concern regarding Patient Update> He is a Home Health nurse who states he has been seeing patient. He states that amlodipine is listed as medication for patient but he does not have the medication in the home. Advised that this was not a medication that was prescribed by a [facility] provider. He wanted to make sure PCP knew he was not taking it. Please review. Patient has been identified by name and birthdate. Person calling: Lizandro From [facility] [phone] Call patient at: on cell [phone] (home) [phone] (cell) Was an appointment scheduled: No Closing statement: Results or non-symptom based questions: Thank you for calling [facility], your call will be returned within the next business day. Aga Judd MD 08/29/2024 5:52 PM Written Received message from [facility] nurse noting that patient is not taking amlodipine at this is not a medication that patient has on his drug list at home. Amlodipine was then discontinued on patient's chart to reflect medication he is taking. Continue current management Allergies As of Date: 08/26/2024 Noted Allergy Reaction ACETAMINOPHEN 04/23/2023 8 - GI Upset HYDROCODONE 04/23/2023 8 - GI Upset TRAMADOL 04/23/2023 8 - GI Upset VICODIN (HYDROCODONE-ACETAMINOPHE*12/08/2023 8 - GI Upset Date Reviewed: 08/08/2024 Reviewed by: Tracey Paul MA - Fully Assessed Reason for Visit: Patient Update [1234] Primary Visit Diagnosis:Essential (primary) hypertension [I10] Prescriptions as of 08/29/2024 - carbidopa-levodopa (SINEMET 25-100) 25-100 mg per tablet Take 2 tablets by mouth three times a day. - acetaminophen (TYLENOL) 500 mg tablet Take 2 tablets by mouth every 8 hours. - tamsulosin (FLOMAX) 0.4 mg Take 1 capsule by mouth once daily. - pantoprazole DR (PROTONIX) 40 mg tablet Take 1 tablet by mouth two times a day before meals at 6 am and 4 pm. - senna-docusate (SENNA-S) 8.6-50 mg per tablet Take 1 tablet by mouth two times a day. - lisinopril (ZESTRIL) 10 mg tablet Take 1 tablet by mouth once daily. - polyethylene glycol 3350 17 gram packet Take 1 Packet by mouth two times a day. Dissolve dose in 4 - 8 ounces of liquid and take as directed. - spironolactone (ALDACTONE) 25 mg tablet Take 1 tablet by mouth once daily. - atorvastatin (LIPITOR) 20 mg tablet Take 1 tablet by mouth daily at bedtime. - dapagliflozin propanediol (FARXIGA) 10 mg tablet Take 1 tablet by mouth daily with breakfast. - aspirin 81 mg cap Take 81 mg by mouth once daily. - iv contrast (will be provided with radiology test) CTA Head/Neck W No IV access, insert saline lock prior to the sedation, infusion, injection for imaging exam. Discontinue saline lock post exam. If Pt. has a central line or IVAD, may access for administration according to line specific nursing protocol. Once exam is complete flush line and de-access according to line specific nursing protocol in the CT contrast administration guidelines link. - cloNIDine HCl (CATAPRES) 0.2 mg tablet Take 0.2 mg by mouth two times a day. - citalopram (CELEXA) 40 mg tablet Take 40 mg by mouth once daily. 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/18/2024 Chronic bilateral low back pain with bilateral *04/18/2024 Parkinson's disease with dyskinesia (HCC) [G20.*04/18/2024 Aftercare [Z51.89] 06/29/2024 Status post total left knee replacement [Z96.65*06/29/2024 YUMIKO (acute kidney injury) (HCC) [N17.9] 06/30/2024 07/05/2024 Acute urinary retention [R33.8] 06/30/2024 07/13/2024 Malnutrition of mild degree (HCC) [E44.1] 07/01/2024 07/13/2024 Nausea and vomiting [R11.2] 07/03/2024 07/13/2024 UTI (urinary tract infection) [N39.0] 07/03/2024 07/05/2024 UTI (urinary tract infection) [N39.0] 07/06/2024 07/13/2024 YUMIKO (acute kidney injury) (HCC) [N17.9] 07/06/2024 07/13/2024 Hypotension [I95.9] 07/06/2024 07/13/2024 Medications Discontinued During This Encounter Prescriptions - amLODIPine (NORVASC) 10 mg tablet (Discontinued) Take 10 mg by mouth once daily. Encounter Status:Closed by AGA BENITEZ on 08/29/24 CNPN Observed: 08/19/2024 12:00 AM Status: COMPLETED Source: [facility] Telephone (4CQ) NICK AROAR ([id number]) 1960 Date Time Provider Department 08/19/24 AGA BENITEZ 4CQ During your visit today, we recorded the following information about you: Sara Mohr 08/19/2024 4:27 PM Signed [facility] [phone] is calling Aga Benitez MD today to request verbal orders for continuation of PT. Please advise. Patient has been identified by name and birthdate. Duration of symptoms: N/A Person calling: Aga Noonan MD 08/22/2024 11:06 AM Signed Ok to give verba orders for Nick. MD Rose Jean Paula, LPN 08/23/2024 3:08 PM Signed Called PT and gave verbal order for continuation of PT. CA Dalton Belinda 09/09/2024 8:11 AM Signed [facility] calling to inform they are discharging patient from nursing. Will continue with PT only. Also, patient does not have his amlodipine at the house. If he is still to be taking this, please send an order to [facility]. Per the nurse, Lizandro, patient's bp's have been fine and he may not even need this. Lizandro can be reached at [phone] secure line. Aga Benitez MD 09/13/2024 10:47 AM Signed BP has been stable on current medication. Date of non adherence to Amlodipine is unclear. I would like assess his BP (this can be reported through a series of readings at home) or through a nurse visit, to adjust the meds as needed. MD Yared Jean Belinda 09/15/2024 12:13 PM Signed [facility] calling to ask if PCP would sign for continued PT. They will be faxing over the orders. Please call with a VO at [phone]. Thanks. Aga Benitez MD 09/16/2024 3:20 PM Signed Yes, will continue to sign tor continued PT. Aga Benitez MD Allergies As of Date: 08/19/2024 Noted Allergy Reaction ACETAMINOPHEN 04/23/2023 8 - GI Upset HYDROCODONE 04/23/2023 8 - GI Upset TRAMADOL 04/23/2023 8 - GI Upset VICODIN (HYDROCODONE-ACETAMINOPHE*12/08/2023 8 - GI Upset Date Reviewed: 08/08/2024 Reviewed by: Tracey Paul MA - Fully Assessed Reason for Visit: Orders [681] Prescriptions as of 09/16/2024 - carbidopa-levodopa (SINEMET 25-100) 25-100 mg per tablet Take 2 tablets by mouth three times a day. - acetaminophen (TYLENOL) 500 mg tablet Take 2 tablets by mouth every 8 hours. - tamsulosin (FLOMAX) 0.4 mg Take 1 capsule by mouth once daily. - pantoprazole DR (PROTONIX) 40 mg tablet Take 1 tablet by mouth two times a day before meals at 6 am and 4 pm. - senna-docusate (SENNA-S) 8.6-50 mg per tablet Take 1 tablet by mouth two times a day. - lisinopril (ZESTRIL) 10 mg tablet Take 1 tablet by mouth once daily. - polyethylene glycol 3350 17 gram packet Take 1 Packet by mouth two times a day. Dissolve dose in 4 - 8 ounces of liquid and take as directed. - spironolactone (ALDACTONE) 25 mg tablet Take 1 tablet by mouth once daily. - atorvastatin (LIPITOR) 20 mg tablet Take 1 tablet by mouth daily at bedtime. - dapagliflozin propanediol (FARXIGA) 10 mg tablet Take 1 tablet by mouth daily with breakfast. - aspirin 81 mg cap Take 81 mg by mouth once daily. - iv contrast (will be provided with radiology test) CTA Head/Neck W No IV access, insert saline lock prior to the sedation, infusion, injection for imaging exam. Discontinue saline lock post exam. If Pt. has a central line or IVAD, may access for administration according to line specific nursing protocol. Once exam is complete flush line and de-access according to line specific nursing protocol in the CT contrast administration guidelines link. - cloNIDine HCl (CATAPRES) 0.2 mg tablet Take 0.2 mg by mouth two times a day. - citalopram (CELEXA) 40 mg tablet Take 40 mg by mouth once daily. 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/18/2024 Chronic bilateral low back pain with bilateral *04/18/2024 Parkinson's disease with dyskinesia (HCC) [G20.*04/18/2024 Aftercare [Z51.89] 06/29/2024 Status post total left knee replacement [Z96.65*06/29/2024 YUMIKO (acute kidney injury) (HCC) [N17.9] 06/30/2024 07/05/2024 Acute urinary retention [R33.8] 06/30/2024 07/13/2024 Malnutrition of mild degree (HCC) [E44.1] 07/01/2024 07/13/2024 Nausea and vomiting [R11.2] 07/03/2024 07/13/2024 UTI (urinary tract infection) [N39.0] 07/03/2024 07/05/2024 UTI (urinary tract infection) [N39.0] 07/06/2024 07/13/2024 YUMIKO (acute kidney injury) (HCC) [N17.9] 07/06/2024 07/13/2024 Hypotension [I95.9] 07/06/2024 07/13/2024 Encounter Status:Closed by RADHA FALL on 08/23/24 CNOV Observed: 08/08/2024 3:30 PM Status: COMPLETED Source: [facility] Office Visit ([facility]) NICK ARORA ([id number]) 1960 M Date Time Provider Department 08/08/24 3:30 PM MIRANDA DEL RIO [facility] During your visit today, we recorded the following information about you: Pulse Blood pressure Weight 101/minute 114/77 90 kg Miranda Del Rio MD 08/08/2024 4:03 PM Signed FOLLOW UP NOTE Subjective Nick Arora is a 64 year old male who presents for follow up. Here with his son-in-law Dank. CC: PD Summary of prior care: 04/2024 right-handed male with a history of heart failure, DM, HTN, anxiety / depression and tremor who presents for evaluation of parkinsonism. His examination demonstrates R>L parkinsonism. His presentation is c/w PD. I don't think he needs primidone or propranolol for tremor, rather would be managed with carbidopa/levodopa. Will start by having him taper off primidone. I double checked with his case management associate who did not feel propranolol currently needed for his heart health, will taper this off after he is off primidone. Once he is off both medications, he can start carbidopa/levodopa titrating to 1 pill TID. Discussed side effects. HPI Current Issues - Tapered off the primidone and propranolol without issue or worsening of symptoms - Starting levodopa somewhat helpful - Has been in the hospital 4 times over the past 6 weeks and have had worse symptoms since then - No clear peak or wearing OFF with levodopa - No LH or hallucinations - Constipation hasn't gone in a week though also hasn't eaten well, no appetite, drinking fluids, EDDI notes he doesn't drink enough - Has been very anxious - Also has been getting confused in general in the setting of his recent illnesses - left knee replacement then in the hospital for 8 days, then YUMIKO, then infection / sepsis, UTI Cd/ld 25/100 1 pill @ 1000, 13-1400, 1900 Current Outpatient Medications Medication Sig Dispense Refill acetaminophen (TYLENOL) 500 mg tablet Take 2 tablets by mouth every 8 hours. 60 tablet 0 tamsulosin (FLOMAX) 0.4 mg Take 1 capsule by mouth once daily. [address] (PROTONIX) 40 mg tablet Take 1 tablet by mouth two times a day before meals at 6 am and 4 pm. 60 tablet 0 senna-docusate (SENNA-S) 8.6-50 mg per tablet Take 1 tablet by mouth two times a day. 60 tablet 0 lisinopril (ZESTRIL) 10 mg tablet Take 1 tablet by mouth once daily. polyethylene glycol 3350 17 gram packet Take 1 Packet by mouth two times a day. Dissolve dose in 4 - 8 ounces of liquid and take as directed. spironolactone (ALDACTONE) 25 mg tablet Take 1 tablet by mouth once daily. 90 tablet 3 carbidopa-levodopa (SINEMET 25-100) 25-100 mg per tablet Take 1 tablet by mouth three times a day. 90 tablet 5 atorvastatin (LIPITOR) 20 mg tablet Take 1 tablet by mouth daily at bedtime. 90 tablet 1 dapagliflozin propanediol (FARXIGA) 10 mg tablet Take 1 tablet by mouth daily with breakfast. 90 tablet 3 aspirin 81 mg cap Take 81 mg by mouth once daily. iv contrast (will be provided with radiology test) CTA Head/Neck W No IV access, insert saline lock prior to the sedation, infusion, injection for imaging exam. Discontinue saline lock post exam. If Pt. has a central line or IVAD, may access for administration according to line specific nursing protocol. Once exam is complete flush line and de-access according to line specific nursing protocol in the CT contrast administration guidelines link. 1 Each 0 amLODIPine (NORVASC) 10 mg tablet Take 10 mg by mouth once daily. cloNIDine HCl (CATAPRES) 0.2 mg tablet Take 0.2 mg by mouth two times a day. citalopram (CELEXA) 40 mg tablet Take 40 mg by mouth once daily. No current facility-administered medications for this visit. Objective OBJECTIVE 08/08/24 1529 BP: 114/77 Pulse: 101 SpO2: 98% Weight: 90 kg (198 lb 6.6 oz) General: General Appearance: Well appearing, alert, in no acute distress, well-hydrated, well nourished. Head: Normocephalic Neck: Supple Heart: RRR Neurologic Exam: Mental Status: He is alert. 08/08/25x, age 64, day wed x, attention is mildly impaired to months backwards. Recall of his history is intact. Language shows normal comprehension and fluency. Affect is appropriate. Cranial Nerves: Extraocular movements show full and smooth pursuits. No nystagmus. Visual moore are full to confrontation. Facial activation is symmetric. Hearing is intact to conversation. There is mild hypomimia. There is mild hypophonia. There is no dysarthria. Tongue is midline. Palate elevates symmetrically. Shoulder shrug is mildly reduced on right. Motor: Muscle bulk is normal. Muscle power is full. Mod-severe RUE otherwise mod bradykinesia and rigidity. RUE rest tremor mod-severe, mild-mod in RLE. Last dose levodopa 100 mg at 1000, exam 1545 (missed mid-day dose) Sensory: Intact to fine touch and vibration. Reflex: Biceps and brachioradialis is 2+ bilaterally. Patellar reflex 2+ bilaterally. Ankle jerks 2+ left trace right. Coordination: Finger to nose is smooth without ataxia. Gait/station: Stooped posture, stands with use of hands, reduced right arm swing, has walker today after left knee surgery. DATA REVIEW Actual films/image/tracing reviewed and summarized as follows: n/a Old records reviewed and summarized as follows: MRI Brain 01/06/24 severe chronic microvascular changes Reviewed referral records from Carla Weir PA [facility] 1.61 Assessment/Plan ASSESSMENT AND PLAN: Nick Arora is a 64 year old right-handed male with a history of heart failure, DM, HTN, anxiety / depression and tremor who presents for follow up of parkinsonism. His examination demonstrates R>L parkinsonism. 1. PD - No worse off primidone and propranolol, seeming mild benefit to levodopa - Will titrate levodopa up to 200 mg TID, discussed possible side effects - If confusion a problem in the future once medical issues are doing better would consider donepezil 2. Constipation - Increase hydration / dietary fiber and use miralax daily Follow-up: 4 months Risks AND Side Effects of Newly Prescribed Medication, Discussed with Patient: YES Miranda Del Rio MD [facility] Neurology Miranda Del Rio MD 08/08/2024 3:50 PM Signed Let's increase the carbidopa/levodopa to 1.5 pills three times a day for 2 weeks. As long as you tolerate this OK after a couple weeks then increase to 2 pills three times a day. It works best when taken before meals, but if you get nauseous when taking it, eating a snack with it (preferably without protein) is ok. Watch out for side effects such as nausea, light-headedness, hallucinations, fatigue, or extra movements (dyskinesia). Allergies As of Date: 08/08/2024 Noted Allergy Reaction ACETAMINOPHEN 04/23/2023 8 - GI Upset HYDROCODONE 04/23/2023 8 - GI Upset TRAMADOL 04/23/2023 8 - GI Upset VICODIN (HYDROCODONE-ACETAMINOPHE*12/08/2023 8 - GI Upset Date Reviewed: 08/08/2024 Reviewed by: Tracey Paul MA - Fully Assessed Reason for Visit: Follow Up [171] Primary Visit Diagnosis:Parkinson's disease without dyskinesia or fluctuating manifestations (HCC) [G20.A1] Other Visit Diagnoses:Chronic idiopathic constipation [K59.04] Toxic metabolic encephalopathy [G92.8] Order(s):carbidopa-levodopa (SINEMET 25-100) 25-100 mg per tabletTake 2 tablets by mouth three times a day.Disp: 540 tabletRfl: 3 Prescriptions as of 08/08/2024 - carbidopa-levodopa (SINEMET 25-100) 25-100 mg per tablet Take 2 tablets by mouth three times a day. - acetaminophen (TYLENOL) 500 mg tablet Take 2 tablets by mouth every 8 hours. - tamsulosin (FLOMAX) 0.4 mg Take 1 capsule by mouth once daily. - pantoprazole DR (PROTONIX) 40 mg tablet Take 1 tablet by mouth two times a day before meals at 6 am and 4 pm. - senna-docusate (SENNA-S) 8.6-50 mg per tablet Take 1 tablet by mouth two times a day. - lisinopril (ZESTRIL) 10 mg tablet Take 1 tablet by mouth once daily. - polyethylene glycol 3350 17 gram packet Take 1 Packet by mouth two times a day. Dissolve dose in 4 - 8 ounces of liquid and take as directed. - spironolactone (ALDACTONE) 25 mg tablet Take 1 tablet by mouth once daily. - atorvastatin (LIPITOR) 20 mg tablet Take 1 tablet by mouth daily at bedtime. - dapagliflozin propanediol (FARXIGA) 10 mg tablet Take 1 tablet by mouth daily with breakfast. - aspirin 81 mg cap Take 81 mg by mouth once daily. - iv contrast (will be provided with radiology test) CTA Head/Neck W No IV access, insert saline lock prior to the sedation, infusion, injection for imaging exam. Discontinue saline lock post exam. If Pt. has a central line or IVAD, may access for administration according to line specific nursing protocol. Once exam is complete flush line and de-access according to line specific nursing protocol in the CT contrast administration guidelines link. - amLODIPine (NORVASC) 10 mg tablet Take 10 mg by mouth once daily. - cloNIDine HCl (CATAPRES) 0.2 mg tablet Take 0.2 mg by mouth two times a day. - citalopram (CELEXA) 40 mg tablet Take 40 mg by mouth once daily. 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 Chronic bilateral low back pain with bilateral *04/18/2024 Parkinson's disease with dyskinesia (HCC) [G20.*04/18/2024 Aftercare [Z51.89] 06/29/2024 Status post total left knee replacement [Z96.65*06/29/2024 YUMIKO (acute kidney injury) (HCC) [N17.9] 06/30/2024 07/05/2024 Acute urinary retention [R33.8] 06/30/2024 07/13/2024 Malnutrition of mild degree (HCC) [E44.1] 07/01/2024 07/13/2024 Nausea and vomiting [R11.2] 07/03/2024 07/13/2024 UTI (urinary tract infection) [N39.0] 07/03/2024 07/05/2024 UTI (urinary tract infection) [N39.0] 07/06/2024 07/13/2024 YUMIKO (acute kidney injury) (HCC) [N17.9] 07/06/2024 07/13/2024 Hypotension [I95.9] 07/06/2024 07/13/2024 Other instructions from your clinician: Let's increase the carbidopa/levodopa to 1.5 pills three times a day for 2 weeks. As long as you tolerate this OK after a couple weeks then increase to 2 pills three times a day. It works best when taken before meals, but if you get nauseous when taking it, eating a snack with it (preferably without protein) is ok. Watch out for side effects such as nausea, light-headedness, hallucinations, fatigue, or extra movements (dyskinesia). Prescriptions ordered this encounter Disp Refills Start End CARBIDOPA 25 MG-LEVODOPA 100 MG TABL* 540 * 3 08/08/2024 08/08/2025 Route: ORAL Sig: Take 2 tablets by mouth three times a day. Medications Discontinued During This Encounter Prescriptions - carbidopa-levodopa (SINEMET 25-100) 25-100 mg per tablet (Discontinued) Take 1 tablet by mouth three times a day. Disposition: Return in about 4 months (around 12/06/2024). Follow-up and Disposition History for Encounter Date Provider Department Center 08/08/2024 [id number], [facility] Encounter Status:Closed by MIRANDA DEL RIO on 08/08/24 PROGRESS Observed: 08/08/2024 3:30 PM Status: COMPLETED Source: [facility] ID: [id number] Author: MIRANDA DEL RIO MD Service: ? Author Type: Physician Type: Progress Notes Filed: 08/08/2024 16:03 Note Text: FOLLOW UP NOTE Subjective Nick Arora is a 64 year old male who presents for follow up. Here with his son-in-law Dank. CC: PD Summary of prior care: 04/2024 right-handed male with a history of heart failure, DM, HTN, anxiety / depression and tremor who presents for evaluation of parkinsonism. His examination demonstrates R>L parkinsonism. His presentation is c/w PD. I don't think he needs primidone or propranolol for tremor, rather would be managed with carbidopa/levodopa. Will start by having him taper off primidone. I double checked with his case management associate who did not feel propranolol currently needed for his heart health, will taper this off after he is off primidone. Once he is off both medications, he can start carbidopa/levodopa titrating to 1 pill TID. Discussed side effects. HPI Current Issues - Tapered off the primidone and propranolol without issue or worsening of symptoms - Starting levodopa somewhat helpful - Has been in the hospital 4 times over the past 6 weeks and have had worse symptoms since then - No clear peak or wearing OFF with levodopa - No LH or hallucinations - Constipation hasn't gone in a week though also hasn't eaten well, no appetite, drinking fluids, EDDI notes he doesn't drink enough - Has been very anxious - Also has been getting confused in general in the setting of his recent illnesses - left knee replacement then in the hospital for 8 days, then YUMIKO, then infection / sepsis, UTI Cd/ld 25/100 1 pill @ 1000, 13-1400, 1900 Current Outpatient Medications Medication Sig Dispense Refill acetaminophen (TYLENOL) 500 mg tablet Take 2 tablets by mouth every 8 hours. 60 tablet 0 tamsulosin (FLOMAX) 0.4 mg Take 1 capsule by mouth once daily. [address] (PROTONIX) 40 mg tablet Take 1 tablet by mouth two times a day before meals at 6 am and 4 pm. 60 tablet 0 senna-docusate (SENNA-S) 8.6-50 mg per tablet Take 1 tablet by mouth two times a day. 60 tablet 0 lisinopril (ZESTRIL) 10 mg tablet Take 1 tablet by mouth once daily. polyethylene glycol 3350 17 gram packet Take 1 Packet by mouth two times a day. Dissolve dose in 4 - 8 ounces of liquid and take as directed. spironolactone (ALDACTONE) 25 mg tablet Take 1 tablet by mouth once daily. 90 tablet 3 carbidopa-levodopa (SINEMET 25-100) 25-100 mg per tablet Take 1 tablet by mouth three times a day. 90 tablet 5 atorvastatin (LIPITOR) 20 mg tablet Take 1 tablet by mouth daily at bedtime. 90 tablet 1 dapagliflozin propanediol (FARXIGA) 10 mg tablet Take 1 tablet by mouth daily with breakfast. 90 tablet 3 aspirin 81 mg cap Take 81 mg by mouth once daily. iv contrast (will be provided with radiology test) CTA Head/Neck W No IV access, insert saline lock prior to the sedation, infusion, injection for imaging exam. Discontinue saline lock post exam. If Pt. has a central line or IVAD, may access for administration according to line specific nursing protocol. Once exam is complete flush line and de-access according to line specific nursing protocol in the CT contrast administration guidelines link. 1 Each 0 amLODIPine (NORVASC) 10 mg tablet Take 10 mg by mouth once daily. cloNIDine HCl (CATAPRES) 0.2 mg tablet Take 0.2 mg by mouth two times a day. citalopram (CELEXA) 40 mg tablet Take 40 mg by mouth once daily. No current facility-administered medications for this visit. Objective OBJECTIVE 08/08/24 1529 BP: 114/77 Pulse: 101 SpO2: 98% Weight: 90 kg (198 lb 6.6 oz) General: General Appearance: Well appearing, alert, in no acute distress, well-hydrated, well nourished. Head: Normocephalic Neck: Supple Heart: RRR Neurologic Exam: Mental Status: He is alert. 08/08/25x, age 64, day thu x, attention is mildly impaired to months backwards. Recall of his history is intact. Language shows normal comprehension and fluency. Affect is appropriate. Cranial Nerves: Extraocular movements show full and smooth pursuits. No nystagmus. Visual moore are full to confrontation. Facial activation is symmetric. Hearing is intact to conversation. There is mild hypomimia. There is mild hypophonia. There is no dysarthria. Tongue is midline. Palate elevates symmetrically. Shoulder shrug is mildly reduced on right. Motor: Muscle bulk is normal. Muscle power is full. Mod-severe RUE otherwise mod bradykinesia and rigidity. RUE rest tremor mod-severe, mild-mod in RLE. Last dose levodopa 100 mg at 1000, exam 1545 (missed mid-day dose) Sensory: Intact to fine touch and vibration. Reflex: Biceps and brachioradialis is 2+ bilaterally. Patellar reflex 2+ bilaterally. Ankle jerks 2+ left trace right. Coordination: Finger to nose is smooth without ataxia. Gait/station: Stooped posture, stands with use of hands, reduced right arm swing, has walker today after left knee surgery. DATA REVIEW Actual films/image/tracing reviewed and summarized as follows: n/a Old records reviewed and summarized as follows: MRI Brain 01/06/24 severe chronic microvascular changes Reviewed referral records from [facility] 1.61 Assessment/Plan ASSESSMENT AND PLAN: Nick Arora is a 64 year old right-handed male with a history of heart failure, DM, HTN, anxiety / depression and tremor who presents for follow up of parkinsonism. His examination demonstrates R>L parkinsonism. 1. PD - No worse off primidone and propranolol, seeming mild benefit to levodopa - Will titrate levodopa up to 200 mg TID, discussed possible side effects - If confusion a problem in the future once medical issues are doing better would consider donepezil 2. Constipation - Increase hydration / dietary fiber and use miralax daily Follow-up: 4 months Risks AND Side Effects of Newly Prescribed Medication, Discussed with Patient: YES Miranda Del Rio MD [facility] Neurology DEPRECATED HGB A1C BLD Collected: 08/08 11:37 AM Status: F Source: [facility] Order Comment: Specimen Type : BLOOD SPECIMEN Ordering Facility: [facility] Address: [address] [place] [address] TYPE CODE TESTS RESULT OUT OF RANGE REFERENCE UNITS LAB 4548-4(LOINC) HbA1c MFr Bld 5.6 4.3-5.6 % Result Comment: [place] [employer] Association guidelines indicate that patients with HgbA1c in the range 5.7-6.4% are at increased risk for development of diabetes, and intervention by lifestyle modification may be beneficial. HgbA1c greater or equal to 6.5% is considered diagnostic of diabetes. LAB 66436-0(LOINC) Est. average glucose Bld gHb Est-mCnc 114 mg/dL Result Comment: eAG: (Estima miranda average glucose) is a calculated value from HgbA1c and is retail sales representative of the average blood glucose level in the last 2-3 month period. Performed By: #### 88921-0 # ### [facility] CLIA [id number] [address] [place] [address] [place] [address] [place] BAS METAB 2000 PNL SERPL Collected: 01/2024 11:37 AM Status: F Source: [facility] Order Comment: Specimen Type : BLOOD SPECIMEN Ordering Facility: [facility] Address: [address] [place] [address] TYPE CODE TESTS RESULT OUT OF RANGE REFERENCE UNITS LAB 2345-7(LOINC) Glucose SerPl-mCnc 126 High 74-99 mg/dL Result Comment: The Indian Diabetes Association (ADA) provides guidance for cutoff values for fasting glucose and random glucose. The ADA defines fasting as no caloric intake for at least 8 hours. Fasting plasma glucose results between 100 to 125 mg/dL indicate increased risk for diabetes (prediabetes). Fasting plasma glucose results greater than or equal to 126 mg/dL meet the criteria for diagnosis of diabetes. In the absence of unequivocal hyperglycemia, results should be confirmed by repeat testing. In a patient with classic symptoms of hyperglycemia or hyperglycemic crisis, random plasma glucose results greater than or equal to 200 mg/dL meet the criteria for diagnosis of diabetes. Reference: Standards of Medical Care in Diabetes 2016, Indian Diabetes Association. Diabetes Care. 2016.39(Suppl 1). LAB 3094-0(LOINC) BUN SerPl-mCnc 20 9-24 mg/ dL LAB 2160-0(LOINC) Creat SerPl-mCnc 1.76 High 0.73-1.22 mg/dL LAB 2951-2(LOINC) Sodium SerPl-sCnc 137 136-144 mmol/L LAB 2823-3(LOINC) Potassium SerPl-sCnc 5.0 3.7-5.1 mmol/L LAB 2075-0(LOINC) Chloride SerPl-sCnc 98 98-107 mmol/L LAB 8-9(LOINC) CO2 SerPl-sCnc 23 22-30 mmo l/L LAB 55833-7(LOINC) Anion Gap SerPl-sCnc 16 High 8-15 mmol/L LAB 70358-8(LOINC) Calcium SerPl-mCnc 10.4 High 8.5-10.2 mg/dL LAB 52606-9(LOINC) Creatinine + eGFR Pnl SerPlBld 42 Low >=60 mL/min/1 .73m??? Result Comment: Estimated Gl omerular Filtration Rate (eGFR) is calculated using the 2020 CKD-EPI creatinine equation. This equation utilizes serum creatinine, sex, and age as parameters. The creatinine assay has traceable calibration to isotope dilution-mass spectrometry. Refer to KDIGO guidelines for clinical interpretation. In patients with unstable renal function, e.g. those with acute kidney injury, the eGFR may not accurately reflect actual GFR. Performed By: #### 00848-9, 51261-0, 2276-4, 13395-0 #### [facility] CLIA [id number] [address] [place] [address] [place] IRON+TIBC PNL SERPL Collected: 08/08/20 24 11:37 AM Status: F Source: [facility] Order Comment: Specimen Type : BLOOD SPECIMEN Ordering Facility: [facility] Address: [address] [place] [address] TYPE CODE TESTS RESULT OUT OF RANGE REFERENCE UNITS LAB 2498-4(LOINC) Iron SerPl-mCnc 47 41-186 ug/dL LAB 2500-7(LOINC) TIBC SerPl-mCnc 289 232-386 ug/dL LAB 65805-6(LOINC) Iron/TIBC SerPl-sRto 16.3 15.0-57.0 % Performed By: #### 55833-6, 06710-0, 2276-4, 25927-1 #### [facility] CLIA [id number] [address] [place] [address] [place] LIPID 1996 PNL SERPL Collected: 024 11:37 AM Status: F Source: [facility] Order Comment: Specimen Type : BLOOD SPECIMEN Ordering Facility: [facility] Address: [place] [address] TYPE CODE TESTS RESULT OUT OF RANGE REFERENCE UNITS LAB 2093-3(LOINC) Cholest SerPl-mCnc 120 <200 mg/dL Result Comment: <200 mg/dL, Desirable 200-239 mg/dL, Borderline high >239 mg/dL, High LAB 2571-8(LOINC) Trigl SerPl-mCnc 134 <150 mg/dL Result Comment: <150 mg/dL, Normal 150-199 mg/dL, Borderline high 200-499 mg/dL, High >499 mg/dL, Very high LAB 2085-9([facility] HDLc SerPl-mCnc 50 >39 mg/dL Result Comment: 40-59 mg/dL, Acceptable >59 mg/dL, High: Negative risk factor for coronary heart disease <40 mg/dL, Low: Positive risk factor for coronary heart disease LAB 10395-3(LOINC) NonHDLc SerPl-mCnc 70 <130 mg/dL Result Comment: <130 mg/dL, Optimal 130-159 mg/dL, Near optimal/above optimal 160-189 mg/dL, Borderline high 190-219 mg/dL, High >219 mg/dL, Very high Secondary prevention optimal non HDL Cholesterol levels are recommended to be <100 mg/dL LAB FT FASTING TIME 12 hrs LAB 49311-2(LOINC) VLDLc SerPl Calc-mCnc 27 <30 mg/dL LAB 9830-1(LOINC) Cholest/HDLc SerPl 2.40 <5.10 LAB 2089-1(LOINC) LDLc SerPl-mCnc 43 <100 mg/dL Result Comment: <100 mg/dL, Optimal 100-129 mg/dL, Near optimal/above optimal 130-159 mg/dL, Borderline high 160-189 mg/dL, High >189 mg/dL, Very high Secondary prevention optimal LDL Cholesterol levels are recommended to be < 70 mg/dL LAB 12777-9(LOINC) LDLc/HDLc SerPl 0.86 <2.54 Result Comment: Reference: 1. National Cholesterol Education Program ATP III Guideline At-A-Glance Quick Desk Reference: National Heart, Lung, and Blood [place]. National Institutes of Health. 2001: NIH Publication No. 01-3305. 2. An International Atherosclerosis Society position paper: global recommendations for the management of dyslipidemia: executive summary, Atherosclerosis. 2014: 232(2):410-413. Performed By: #### 94009-4, 27988-2, 2276-4, 12294-1 #### [facility] CLIA [id number] [address] [place] [address] FERRITIN SERPL-MCNC Collected: 08/08/20 11:37 AM Status: F Source: [facility] Order Comment: Specimen Type : BLOOD SPECIMEN Ordering Facility: [facility] Address: [address] [place] [address] TYPE CODE TESTS RESULT OUT OF RANGE REFERENCE UNITS LAB 2276-4(LOINC) Ferritin SerPl-mCnc 333.0 30.3-565.7 ng/mL Performed By: #### 82579-9, 98056-5, 2276-4, 68731-6 #### [facility] CLIA [id number] [address] [place] [address] PROGRESS Observed: 08/08/2024 10:38 AM Status: COMPLETED Source: [facility] HNO ID: [id number] Author: AGA BENITEZ MD Service: ? Author Type: Physician Type: Progress Notes Filed: 08/08/2024 11:28 Note Text: This note was created using Appevo Studior[employer]. Subjective Nick Arora is a 64 year old male. Here for hospital follow-up HPI Patient is accompanied by his son-in-law and his daughter was on the phone during this visit. Patient had a recent complicated hospital stay requiring multiple rehabs and readmissions to the hospital. He underwent left knee arthroplasty Course of recovery was complicated by urinary retention leading to YUMIKO This was ultimately resolved and kidney function started to improve Patient then was discharged to rehab and then home About 2 weeks ago, he started having hematuria and daughter noticed that he was becoming more confused. He was then readmitted to the hospital with the impression of septic shock secondary to complicated urinary tract infection Was treated with vancomycin and cefepime and discharged on Bactrim. Urine culture was positive for Serratia marcescens Patient had very poor oral intake and developed nausea/vomiting on Bactrim for 2 to 3 days, at which point he was admitted to the ER and discharged shortly after becoming stabilized. Currently, he denies having any urinary issues, reports 3-4 voiding episodes with moderate volume without straining or dribbling. Family is concerned with patient's oral intake, patient reports that he often does not feel hungry. Patient reports that he has improved significantly after PT/OT with walking and currently ambulates with a walker. He resides with his , but most of his care is coordinated through his daughter and son-in-law who live in [place]. Review of Systems All other systems reviewed and are negative. Objective BP 135/77 Pulse 98 Resp 16 Ht 179.1 cm (5' 10.5) Wt 107 kg (235 lb 14.3 oz) SpO2 98% BMI 33.37 kg/m? Physical Exam Vitals and nursing note reviewed. Cardiovascular: Rate and Rhythm: Normal rate and regular rhythm. Pulmonary: Effort: Pulmonary effort is normal. Breath sounds: Normal breath sounds. No wheezing, rhonchi or rales. Musculoskeletal: Comments: Healing scar on the left knee Left knee larger than the right, with normal ROM Assessment and Plan ASSESSMENT/PLAN: 1. Benign prostatic hyperplasia without lower urinary tract symptoms - ICD9: 600.00, ICD10: N40.0 (primary diagnosis) Post renal YUMIKO during hospital admission possibly secondary to medication versus BPH. He had 1 urology evaluation during the hospital admission and would like to establish care now. Currently symptoms are stable on tamsulosin. Plan: -Continue tamsulosin - CONSULT TO UROLOGY 2. Anemia, unspecified type - ICD9: 285.9, ICD10: D64.9 Recent onset anemia with a normal baseline prior to June 2024 MCV is currently normal, suspect blood loss anemia versus iron deficiency Will obtain further workup and treat as indicated. Plan: - COMPLETE BLOOD COUNT AND DIFFERENTIAL - FERRITIN - IRON AND TIBC 3. Type 2 diabetes mellitus without complication, without long-term current use of insulin (HCC) - ICD9: 250.00, ICD10: E11.9 Good control per last A1c, on Farxiga 10 mg/day Per patient, recent UTI possibly secondary to Farxiga. Will continue current management, if patient continues to have recurrent UTIs, will consider switching medication to a class except SGLT2 inhibitor. Follow-up in 3 months with labs prior Plan: - COMPREHENSIVE METABOLIC PANEL - HEMOGLOBIN A1C - CONSULT TO PODIATRY - ALBUMIN/CREATININE RATIO, URINE - ALBUMIN/CREATININE RATIO, URINE 4. Screening for diabetic retinopathy - ICD9: V80.2, ICD10: Z13.5 Consult to ophthalmology placed - CONSULT TO OPHTHALMOLOGY RTC in 3 months with labs prior for diabetes Aga Benitez MD CNOV Observed: 08/08/2024 10:30 AM Status: COMPLETED Source: [facility] Office Visit (INMS) NICK ARORA ([id number]) 1960 M Date Time Provider Department 08/08/24 10:30 AM AGA BENITEZ INBRIANNA During your visit today, we recorded the following information about you: Pulse Respiration Blood pressure Weight 98/minute 16/minute 135/77 107 kg Height 1.791 m Aga Benitez MD 08/08/2024 11:28 AM Signed This note was created using SuitMeter. Subjective Nick Arora is a 64 year old male. Here for hospital follow-up HPI Patient is accompanied by his son-in-law and his daughter was on the phone during this visit. Patient had a recent complicated hospital stay requiring multiple rehabs and readmissions to the hospital. He underwent left knee arthroplasty Course of recovery was complicated by urinary retention leading to YUMIKO This was ultimately resolved and kidney function started to improve Patient then was discharged to rehab and then home About 2 weeks ago, he started having hematuria and daughter noticed that he was becoming more confused. He was then readmitted to the hospital with the impression of septic shock secondary to complicated urinary tract infection Was treated with vancomycin and cefepime and discharged on Bactrim. Urine culture was positive for Serratia marcescens Patient had very poor oral intake and developed nausea/vomiting on Bactrim for 2 to 3 days, at which point he was admitted to the ER and discharged shortly after becoming stabilized. Currently, he denies having any urinary issues, reports 3-4 voiding episodes with moderate volume without straining or dribbling. Family is concerned with patient's oral intake, patient reports that he often does not feel hungry. Patient reports that he has improved significantly after PT/OT with walking and currently ambulates with a walker. He resides with his , but most of his care is coordinated through his daughter and son-in-law who live in [place]. Review of Systems All other systems reviewed and are negative. Objective BP 135/77 Pulse 98 Resp 16 Ht 179.1 cm (5' 10.5) Wt 107 kg (235 lb 14.3 oz) SpO2 98% BMI 33.37 kg/m? Physical Exam Vitals and nursing note reviewed. Cardiovascular: Rate and Rhythm: Normal rate and regular rhythm. Pulmonary: Effort: Pulmonary effort is normal. Breath sounds: Normal breath sounds. No wheezing, rhonchi or rales. Musculoskeletal: Comments: Healing scar on the left knee Left knee larger than the right, with normal ROM Assessment and Plan ASSESSMENT/PLAN: 1. Benign prostatic hyperplasia without lower urinary tract symptoms - ICD9: 600.00, ICD10: N40.0 (primary diagnosis) Post renal YUMIKO during hospital admission possibly secondary to medication versus BPH. He had 1 urology evaluation during the hospital admission and would like to establish care now. Currently symptoms are stable on tamsulosin. Plan: -Continue tamsulosin - CONSULT TO UROLOGY 2. Anemia, unspecified type - ICD9: 285.9, ICD10: D64.9 Recent onset anemia with a normal baseline prior to June 2024 MCV is currently normal, suspect blood loss anemia versus iron deficiency Will obtain further workup and treat as indicated. Plan: - COMPLETE BLOOD COUNT AND DIFFERENTIAL - FERRITIN - IRON AND TIBC 3. Type 2 diabetes mellitus without complication, without long-term current use of insulin (HCC) - ICD9: 250.00, ICD10: E11.9 Good control per last A1c, on Farxiga 10 mg/day Per patient, recent UTI possibly secondary to Farxiga. Will continue current management, if patient continues to have recurrent UTIs, will consider switching medication to a class except SGLT2 inhibitor. Follow-up in 3 months with labs prior Plan: - COMPREHENSIVE METABOLIC PANEL - HEMOGLOBIN A1C - CONSULT TO PODIATRY - ALBUMIN/CREATININE RATIO, URINE - ALBUMIN/CREATININE RATIO, URINE 4. Screening for diabetic retinopathy - ICD9: V80.2, ICD10: Z13.5 Consult to ophthalmology placed - CONSULT TO OPHTHALMOLOGY RTC in 3 months with labs prior for diabetes Aga Benitez MD Allergies As of Date: 08/08/2024 Noted Allergy Reaction ACETAMINOPHEN 04/23/2023 8 - GI Upset HYDROCODONE 04/23/2023 8 - GI Upset TRAMADOL 04/23/2023 8 - GI Upset VICODIN (HYDROCODONE-ACETAMINOPHE*12/08/2023 8 - GI Upset Date Reviewed: 08/08/2024 Reviewed by: Tracey Paul MA - Fully Assessed Reason for Visit: Hospital F/U [57] Cmt: No concerns Primary Visit Diagnosis:Benign prostatic hyperplasia without lower urinary tract symptoms [N40.0] Other Visit Diagnoses:Anemia, unspecified type [D64.9] Type 2 diabetes mellitus without complication, without long-term current use of insulin (HCC) [E11.9] Screening for diabetic retinopathy [Z13.5] Order(s):CONSULT TO UROLOGY [9041] Order #: [id number]: 1 FUTURE COMPREHENSIVE METABOLIC PANEL [SQCMP] Order #: [id number] FUTURE HEMOGLOBIN A1C [XYLDY1C] Order #: [id number] FUTURE COMPLETE BLOOD COUNT AND DIFFERENTIAL [SQCBCDIF] Order #: [id number] FUTURE FERRITIN [SQFERR] Order #: [id number] FUTURE IRON AND TIBC [SQIRON] Order #: [id number] FUTURE CONSULT TO PODIATRY [9034] Order #: [id number]: 1 FUTURE CONSULT TO OPHTHALMOLOGY [9024] Order #: [id number]: 1 FUTURE ALBUMIN/CREATININE RATIO, URINE [SQUACR] Order #: [id number] FUTURE PROSTATE-SPECIFIC ANTIGEN DIAGNOSTIC [SQPSA] Order #: [id number] FUTURE Prescriptions as of 08/09/2024 - carbidopa-levodopa (SINEMET 25-100) 25-100 mg per tablet Take 2 tablets by mouth three times a day. - acetaminophen (TYLENOL) 500 mg tablet Take 2 tablets by mouth every 8 hours. - tamsulosin (FLOMAX) 0.4 mg Take 1 capsule by mouth once daily. - pantoprazole DR (PROTONIX) 40 mg tablet Take 1 tablet by mouth two times a day before meals at 6 am and 4 pm. - senna-docusate (SENNA-S) 8.6-50 mg per tablet Take 1 tablet by mouth two times a day. - lisinopril (ZESTRIL) 10 mg tablet Take 1 tablet by mouth once daily. - polyethylene glycol 3350 17 gram packet Take 1 Packet by mouth two times a day. Dissolve dose in 4 - 8 ounces of liquid and take as directed. - spironolactone (ALDACTONE) 25 mg tablet Take 1 tablet by mouth once daily. - atorvastatin (LIPITOR) 20 mg tablet Take 1 tablet by mouth daily at bedtime. - dapagliflozin propanediol (FARXIGA) 10 mg tablet Take 1 tablet by mouth daily with breakfast. - aspirin 81 mg cap Take 81 mg by mouth once daily. - iv contrast (will be provided with radiology test) CTA Head/Neck W No IV access, insert saline lock prior to the sedation, infusion, injection for imaging exam. Discontinue saline lock post exam. If Pt. has a central line or IVAD, may access for administration according to line specific nursing protocol. Once exam is complete flush line and de-access according to line specific nursing protocol in the CT contrast administration guidelines link. - amLODIPine (NORVASC) 10 mg tablet Take 10 mg by mouth once daily. - cloNIDine HCl (CATAPRES) 0.2 mg tablet Take 0.2 mg by mouth two times a day. - citalopram (CELEXA) 40 mg tablet Take 40 mg by mouth once daily. 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 Chronic bilateral low back pain with bilateral *04/18/2024 Parkinson's disease with dyskinesia (HCC) [G20.*04/18/2024 Aftercare [Z51.89] 06/29/2024 Status post total left knee replacement [Z96.65*06/29/2024 YUMIKO (acute kidney injury) (HCC) [N17.9] 06/30/2024 07/05/2024 Acute urinary retention [R33.8] 06/30/2024 07/13/2024 Malnutrition of mild degree (HCC) [E44.1] 07/01/2024 07/13/2024 Nausea and vomiting [R11.2] 07/03/2024 07/13/2024 UTI (urinary tract infection) [N39.0] 07/03/2024 07/05/2024 UTI (urinary tract infection) [N39.0] 07/06/2024 07/13/2024 YUMIKO (acute kidney injury) (HCC) [N17.9] 07/06/2024 07/13/2024 Hypotension [I95.9] 07/06/2024 07/13/2024 Level of Service: OFFICE/OUTPATIENT ESTABLISHED MOD MDM 30 MIN [72595] Additional E/M codes: VISIT CPLX INHERENT EANDM ASSOC WITH MED * Disposition: Return in about 3 months (around 11/08/2024). LOS History for Encounter Level of Service: OFFICE/OUTPATIENT ESTABLISHED LOW MDM 20 MIN[17737] Date AND Time: 08-08-2024 11:28 AM Recorded by User: AGA BENITEZ Follow-up and Disposition History for Encounter Date Provider Department Center 08/08/2024 [id number], GOLNAZ [facility] Danii Encounter Status:Closed by AGA BENITEZ on 08/08/24 CNPN Observed: 08/08/2024 12:00 AM Status: COMPLETED Source: [facility] Telephone (4CQ) NICK ARORA ([id number]) 1960 M Date Time Provider Department 08/08/24 AGA BENITEZ 4CQ During your visit today, we recorded the following information about you: Marcell Noguera 08/08/2024 8:55 AM Signed [facility] Pt temp is 99. Pt just finished antibiotic. Urine still looks good. Pt increased fluids. Pt has appt today. Any questions [phone] Patient has been identified by name and birthdate. Duration of symptoms: N/A Was an appointment scheduled: No Closing statement: Results or non-symptom based questions: Thank you for calling [facility], your call will be returned within the next business day. Aga Armstrong MD 08/08/2024 1:46 PM Signed Noted. Patient was well during visit today. Thank you, Aga Benitez MD Allergies As of Date: 08/08/2024 Noted Allergy Reaction ACETAMINOPHEN 04/23/2023 8 - GI Upset HYDROCODONE 04/23/2023 8 - GI Upset TRAMADOL 04/23/2023 8 - GI Upset VICODIN (HYDROCODONE-ACETAMINOPHE*12/08/2023 8 - GI Upset Date Reviewed: 08/08/2024 Reviewed by: Aga Benitez MD - Fully Assessed Reason for Visit: Patient Update [1234] Prescriptions as of 08/08/2024 - acetaminophen (TYLENOL) 500 mg tablet Take 2 tablets by mouth every 8 hours. - tamsulosin (FLOMAX) 0.4 mg Take 1 capsule by mouth once daily. - pantoprazole DR (PROTONIX) 40 mg tablet Take 1 tablet by mouth two times a day before meals at 6 am and 4 pm. - senna-docusate (SENNA-S) 8.6-50 mg per tablet Take 1 tablet by mouth two times a day. - lisinopril (ZESTRIL) 10 mg tablet Take 1 tablet by mouth once daily. - polyethylene glycol 3350 17 gram packet Take 1 Packet by mouth two times a day. Dissolve dose in 4 - 8 ounces of liquid and take as directed. - spironolactone (ALDACTONE) 25 mg tablet Take 1 tablet by mouth once daily. - carbidopa-levodopa (SINEMET 25-100) 25-100 mg per tablet Take 1 tablet by mouth three times a day. - atorvastatin (LIPITOR) 20 mg tablet Take 1 tablet by mouth daily at bedtime. - dapagliflozin propanediol (FARXIGA) 10 mg tablet Take 1 tablet by mouth daily with breakfast. - aspirin 81 mg cap Take 81 mg by mouth once daily. - iv contrast (will be provided with radiology test) CTA Head/Neck W No IV access, insert saline lock prior to the sedation, infusion, injection for imaging exam. Discontinue saline lock post exam. If Pt. has a central line or IVAD, may access for administration according to line specific nursing protocol. Once exam is complete flush line and de-access according to line specific nursing protocol in the CT contrast administration guidelines link. - amLODIPine (NORVASC) 10 mg tablet Take 10 mg by mouth once daily. - cloNIDine HCl (CATAPRES) 0.2 mg tablet Take 0.2 mg by mouth two times a day. - citalopram (CELEXA) 40 mg tablet Take 40 mg by mouth once daily. 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 Chronic bilateral low back pain with bilateral *04/18/2024 Parkinson's disease with dyskinesia (HCC) [G20.*04/18/2024 Aftercare [Z51.89] 06/29/2024 Status post total left knee replacement [Z96.65*06/29/2024 YUMIKO (acute kidney injury) (HCC) [N17.9] 06/30/2024 07/05/2024 Acute urinary retention [R33.8] 06/30/2024 07/13/2024 Malnutrition of mild degree (HCC) [E44.1] 07/01/2024 07/13/2024 Nausea and vomiting [R11.2] 07/03/2024 07/13/2024 UTI (urinary tract infection) [N39.0] 07/03/2024 07/05/2024 UTI (urinary tract infection) [N39.0] 07/06/2024 07/13/2024 YUMIKO (acute kidney injury) (HCC) [N17.9] 07/06/2024 07/13/2024 Hypotension [I95.9] 07/06/2024 07/13/2024 Encounter Status:Closed by AGA BENITEZ on 08/08/24 36 Observed: 08/02/2024 10:07 AM Status: COMPLETED Source: [facility] I called pt to schedule new urology appointment. Patient's daughter Carmina answered the call and verbalized he has a urologist and she will schedule a visit with that provider. Closing encounter PROGRESS NOTE Observed: 07/28/2024 2:01 PM Status: COMPLETED Source: [facility] [place] [facility] [place] appe ars to have been cancelled via mychart / text. Called and spoke with Hilary who per inpatient notes was heavily involved in discharge planning / hospitalization. She states Nick actually follows with [facility] care team and cancellation was on purpose. No issues or concerns reported by Hilary. Initial Post-Hospital Follow Up Call Call within 2 business days of discharge: no Patient: Nick Arora Patient : 1960 Spoke with: Hilary-daughter / patient contact. Discharge department/facility: [facility] Follow Up No future appointments. Noe Campa RN CNPN Observed: 07/28/2024 12:00 AM Status: COMPLETED Source: [facility] Telephone (4CQ) NICK ARORA ([id number]) 1960 M Date Time Provider Department 07/28/24 AGA BENITEZ 4CQ During your visit today, we recorded the following information about you: Nellie Farr 07/28/2024 3:32 PM Signed Berkley PT with [facility] Nick is calling Aga Benitez MD today to request and update PCP Update is Evaluation for PT was completed. Requesting PT in home 3 times per week for 4 weeks. Please return call to give VO Patient has been identified by name and birthdate. Duration of symptoms: N/A Person calling: PT Call Berkley [phone] Was an appointment scheduled: No Closing statement: Results or non-symptom based questions: Thank you for calling [facility], your call will be returned within the next business day. Aga Oneill MD 08/01/2024 10:10 AM Signed Noted. Thank you! Aga Benitez MD Allergies As of Date: 07/28/2024 Noted Allergy Reaction ACETAMINOPHEN 04/23/2023 8 - GI Upset HYDROCODONE 04/23/2023 8 - GI Upset TRAMADOL 04/23/2023 8 - GI Upset VICODIN (HYDROCODONE-ACETAMINOPHE*12/08/2023 8 - GI Upset Date Reviewed: 07/14/2024 Reviewed by: Lida Muñiz LPN - Fully Assessed Reason for Visit: Orders [681] Home Care [4073] Prescriptions as of 08/01/2024 - acetaminophen (TYLENOL) 500 mg tablet Take 2 tablets by mouth every 8 hours. - tamsulosin (FLOMAX) 0.4 mg Take 1 capsule by mouth once daily. - pantoprazole DR (PROTONIX) 40 mg tablet Take 1 tablet by mouth two times a day before meals at 6 am and 4 pm. - senna-docusate (SENNA-S) 8.6-50 mg per tablet Take 1 tablet by mouth two times a day. - lisinopril (ZESTRIL) 10 mg tablet Take 1 tablet by mouth once daily. - polyethylene glycol 3350 17 gram packet Take 1 Packet by mouth two times a day. Dissolve dose in 4 - 8 ounces of liquid and take as directed. - spironolactone (ALDACTONE) 25 mg tablet Take 1 tablet by mouth once daily. - carbidopa-levodopa (SINEMET 25-100) 25-100 mg per tablet Take 1 tablet by mouth three times a day. - atorvastatin (LIPITOR) 20 mg tablet Take 1 tablet by mouth daily at bedtime. - dapagliflozin propanediol (FARXIGA) 10 mg tablet Take 1 tablet by mouth daily with breakfast. - aspirin 81 mg cap Take 81 mg by mouth once daily. - iv contrast (will be provided with radiology test) CTA Head/Neck W No IV access, insert saline lock prior to the sedation, infusion, injection for imaging exam. Discontinue saline lock post exam. If Pt. has a central line or IVAD, may access for administration according to line specific nursing protocol. Once exam is complete flush line and de-access according to line specific nursing protocol in the CT contrast administration guidelines link. - amLODIPine (NORVASC) 10 mg tablet Take 10 mg by mouth once daily. - cloNIDine HCl (CATAPRES) 0.2 mg tablet Take 0.2 mg by mouth two times a day. - citalopram (CELEXA) 40 mg tablet Take 40 mg by mouth once daily. Problem List As Of Date 07/28/2024 Noted Resolved Mixed hyperlipidemia [E78.2] 02/21/2022 Diagnosed: 12/08/2023 Calculus of kidney [N20.0] 12/08/2023 Diagnosed: 12/08/2023 Essential (primary) hypertension [I10] 02/21/2022 Diagnosed: 12/08/2023 Mild depression [F32.A] 12/08/2023 Diagnosed: 12/08/2023 Type 2 diabetes mellitus without complication, *03/09/2024 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/18/2024 Chronic bilateral low back pain with bilateral *04/18/2024 Parkinson's disease with dyskinesia (HCC) [G20.*04/18/2024 Aftercare [Z51.89] 06/29/2024 Status post total left knee replacement [Z96.65*06/29/2024 YUMIKO (acute kidney injury) (HCC) [N17.9] 06/30/2024 07/05/2024 Acute urinary retention [R33.8] 06/30/2024 07/13/2024 Malnutrition of mild degree (HCC) [E44.1] 07/01/2024 07/13/2024 Nausea and vomiting [R11.2] 07/03/2024 07/13/2024 UTI (urinary tract infection) [N39.0] 07/03/2024 07/05/2024 UTI (urinary tract infection) [N39.0] 07/06/2024 07/13/2024 YUMIKO (acute kidney injury) (HCC) [N17.9] 07/06/2024 07/13/2024 Hypotension [I95.9] 07/06/2024 07/13/2024 Encounter Status:Closed by AGA BENITEZ on 08/01/24 CNPN Observed: 07/28/2024 12:00 AM Status: COMPLETED Source: [facility] Telephone (4CQ) NICK ARORA ([id number]) 1960 M Date Time Provider Department 07/28/24 AGA BENITEZ 4CQ During your visit today, we recorded the following information about you: Sara Mohr 07/28/2024 10:44 AM Signed [facility] [phone] is calling Aga Benitez MD today to request verbal orders for SN, PT and OT. Patient has been identified by name and birthdate. Duration of symptoms: N/A Person calling: Aga Olmos MD 07/29/2024 12:27 AM Signed Ok to place verbal orders for SN, PT and OT. MD Rosalind Jean Angela RN 07/29/2024 1:46 PM Signed Called Adela CAROLINA given for below services Allergies As of Date: 07/28/2024 Noted Allergy Reaction ACETAMINOPHEN 04/23/2023 8 - GI Upset HYDROCODONE 04/23/2023 8 - GI Upset TRAMADOL 04/23/2023 8 - GI Upset VICODIN (HYDROCODONE-ACETAMINOPHE*12/08/2023 8 - GI Upset Date Reviewed: 07/14/2024 Reviewed by: Lida Muñiz LPN - Fully Assessed Reason for Visit: Home Care [4073] Prescriptions as of 07/29/2024 - acetaminophen (TYLENOL) 500 mg tablet Take 2 tablets by mouth every 8 hours. - tamsulosin (FLOMAX) 0.4 mg Take 1 capsule by mouth once daily. - pantoprazole DR (PROTONIX) 40 mg tablet Take 1 tablet by mouth two times a day before meals at 6 am and 4 pm. - senna-docusate (SENNA-S) 8.6-50 mg per tablet Take 1 tablet by mouth two times a day. - lisinopril (ZESTRIL) 10 mg tablet Take 1 tablet by mouth once daily. - polyethylene glycol 3350 17 gram packet Take 1 Packet by mouth two times a day. Dissolve dose in 4 - 8 ounces of liquid and take as directed. - spironolactone (ALDACTONE) 25 mg tablet Take 1 tablet by mouth once daily. - carbidopa-levodopa (SINEMET 25-100) 25-100 mg per tablet Take 1 tablet by mouth three times a day. - atorvastatin (LIPITOR) 20 mg tablet Take 1 tablet by mouth daily at bedtime. - dapagliflozin propanediol (FARXIGA) 10 mg tablet Take 1 tablet by mouth daily with breakfast. - aspirin 81 mg cap Take 81 mg by mouth once daily. - iv contrast (will be provided with radiology test) CTA Head/Neck W No IV access, insert saline lock prior to the sedation, infusion, injection for imaging exam. Discontinue saline lock post exam. If Pt. has a central line or IVAD, may access for administration according to line specific nursing protocol. Once exam is complete flush line and de-access according to line specific nursing protocol in the CT contrast administration guidelines link. - amLODIPine (NORVASC) 10 mg tablet Take 10 mg by mouth once daily. - cloNIDine HCl (CATAPRES) 0.2 mg tablet Take 0.2 mg by mouth two times a day. - citalopram (CELEXA) 40 mg tablet Take 40 mg by mouth once daily. Problem List As Of Date 07/28/2024 Noted Resolved Mixed hyperlipidemia [E78.2] 02/21/2022 Diagnosed: 12/08/2023 Calculus of kidney [N20.0] 12/08/2023 Diagnosed: 12/08/2023 Essential (primary) hypertension [I10] 02/21/2022 Diagnosed: 12/08/2023 Mild depression [F32.A] 12/08/2023 Diagnosed: 12/08/2023 Type 2 diabetes mellitus without complication, *03/09/2024 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/18/2024 Chronic bilateral low back pain with bilateral *04/18/2024 Parkinson's disease with dyskinesia (HCC) [G20.*04/18/2024 Aftercare [Z51.89] 06/29/2024 Status post total left knee replacement [Z96.65*06/29/2024 YUMIKO (acute kidney injury) (HCC) [N17.9] 06/30/2024 07/05/2024 Acute urinary retention [R33.8] 06/30/2024 07/13/2024 Malnutrition of mild degree (HCC) [E44.1] 07/01/2024 07/13/2024 Nausea and vomiting [R11.2] 07/03/2024 07/13/2024 UTI (urinary tract infection) [N39.0] 07/03/2024 07/05/2024 UTI (urinary tract infection) [N39.0] 07/06/2024 07/13/2024 YUMIKO (acute kidney injury) (HCC) [N17.9] 07/06/2024 07/13/2024 Hypotension [I95.9] 07/06/2024 07/13/2024 Encounter Status:Closed by DOMINIK PINEDA on 07/29/24 NURSING NOTE Observed: 07/27/2024 4:41 PM Status: COMPLETED Source: [facility] AVS instructions given. IV's removed. division operations specialist removed, cleaned and placed at corresponding location at nurses station. Prescribed medications delivered to patient bedside via meds to beds. Patient awaiting transportation via EMS to home scheduled for pickle sorter at 1700. PROGRESS NOTE Observed: 07/27/2024 3:55 PM Status: COMPLETED Source: [facility] OCCUPATIONAL THERAPY [facility] Initial Evaluation Name/MRN: Nick Arora ([id number]) Evaluation Date: 07/27/2024 Date of : 1960 Admission Date: 07/25/2024 12:25 PM Age: 64 y.o. Room/Bed: [facility] Discharge Recommendation: Home with Home health OT, Home with assist PRN Equipment Needed: No Assessment IMPRESSION: 64 y/o male admitted for blood in urine. Pt with recent L TKA 06/22/24 at [facility] and [facility] Parkinson's with dyskinesia. Pt reports was independent with ADLs prior to L TKA but has been limited since and receiving assistance from . Mod assist bed mobility and min assist functional transfers with FWW. Max assist LB ADLs and setup for UB dressing. Anticipate home with assist prn and home health OT. Admitting Diagnosis: septic shock, UTI Performance Deficits /Impairments: Increased Pain, Decreased Functional Mobility, Decreased ADL status, Decreased Strength, Decreased Endurance, Decreased Balance, and Decreased High Level IADLs Prognosis: Good Decision Making: Medium Complexity Subjective Pt supine in bed, agreeable to OT. Pain: RN managing pain. 0-10 pain scale: 8/10 Location: L knee Past Medical History: Past Medical History: Diagnosis Date BPH (benign prostatic hyperplasia) Chronic combined systolic and diastolic heart failure (HCC) HTN (hypertension) Mild depression Parkinson disease with dyskinesia ([facility]) T2DM (type 2 diabetes mellitus) ([facility]) Past Surgical History: History reviewed. No pertinent surgical history. Admission Diagnosis: Patient Active Problem List Diagnosis Date Noted Normocytic anemia 07/26/2024 Major depressive disorder 07/26/2024 BPH (benign prostatic hyperplasia) 07/26/2024 HFrEF (heart failure with reduced ejection fraction) ([facility]) 07/26/2024 YUMIKO (acute kidney injury) ([facility]) 07/26/2024 Complicated UTI (urinary tract infection) 07/26/2024 Hematuria 07/26/2024 Septic shock (HCC) 07/25/2024 Medical Precautions: No active isolations Proper PPE donned/doffed in accordance with facility standards. Fall Risk: Alvarez Fall Risk Score: 60 (Low Risk) Alvarez Fall Risk Score: 60 (High Risk) Precautions/Restrictions: Fall Precautions Skin care precautions Family/Caregiver Present: none Overall Cognitive Status: WFL Overall Orientation Status: Oriented x4 Social/Functional History Patient admitted from home. Lives With: Spouse Type of Home: apartment Home Layout: Single Level Home Home Access: Stairs to Enter without Rails (# of stairs: 1) Bathroom Shower/Tub: tub/shower combo with tub transfer bench Toilet: Standard Home Equipment: front wheeled walker Homemaking Responsibilities: Needs Assist Receives Help From: Spouse Active Senior Net C Developer: No Prior Level of Function Prior Level of ADL Function: Required Assist Prior Level of Mobility: Required Assist; Device: Front wheeled walker Prior Level of Transfers: Required Assist Objective ADLs LE Dressing: Max Assist UE Dressing: Modified Independent, after setup Upper Extremity Assessment AROM: WFL PROM: Not assessed this session Strength: Exceptions: BUE grossly 4/5 Vision: not assessed this session Hearing: normal Bed Mobility Supine to sit: Mod Assist Sit to supine: Min Assist Transfers/Functional Mobility Sit to stand: Min Assist Stand to sit: Min Assist Sitting balance: SBA Standing balance: Contact Guard Device(s) used: Front wheeled walker Heart Failure on Admission Dyspnea: No Heart failure diagnosis: Yes AM-PAC AM-PAC Inpatient Daily Activity Raw Score: 19 ADL Inpatient CMS G-Code Modifier: CK Plan Pt would benefit from skilled acute OT services to address Strengthening, ROM, Balance Training, Self-Care/ADL Training, Functional Mobility Training, Endurance Training, Safety Education and Training, Pain Management, Equipment Evaluation/Education, Home Management Training, and Patient/Caregiver Training. Frequency: 3x/week for 4 weeks Barriers: Pain, Impaired balance, Lower extremity weakness, Upper extremity weakness, and Decreased endurance Safety/Education Safety Safety Devices in place: All fall risk precautions in place, call light within reach, left in bed, patient at risk for falls, and no alarms engaged upon entry Restraints: No Education Education Given To: patient Education Provided: OT Role, Plan of Care, Precautions, ADL Adaptive Strategies, Transfer Training, Energy Conservation, Equipment, Fall Prevention Education, Discharge Recommendations, and Benefits of Increasing Activity Education Method: Verbal Barriers to Learning: None Education Outcome: Verbalized Understanding Goals Patient Stated Goal: go home Encounter Problems Encounter Problems (Active) Cognition Patient will demonstrate good safety awareness with the use of FWW with no cues. Start: 07/27/24 Expected End: 08/24/24 Dressings Lower Extremities Patient will dress lower body min assist. Start: 07/27/24 Expected End: 08/24/24 Toileting Patient will complete toileting tasks CGA. Start: 07/27/24 Expected End: 08/24/24 Transfers Patient will complete functional transfer with least restrictive device with CGA in order to prepare for ambulation. Start: 07/27/24 Expected End: 08/24/24 Patient will perform bed mobility with SBA in order to improve independence and prepare for out of bed mobility. Start: 07/27/24 Expected End: 08/24/24 Therapy Time Individual Co-treatment Time In 1518 Time Out 1535 Minutes 17 Cheryl Johnson OTR/[place] Patient's Occupational Therapy Plan of Care supervision is transferred to a [facility] Therapy Services Occupational Therapist. Goals and/or treatment plan was established in collaboration with patient/family/other representatives. [id number] Observed: 07/27/2024 3:51 PM Status: COMPLETED Source: [facility] Pt to be dc'd home today . S poke to pt's dtr Hilary who feels the safest way for pt to go home would be via ambulance-she is aware there could be a cost. Also spoke with pt's nurse Gianna who agrees that the safest way would also be via ambulance due pt having Parkinson's/very shaky and is a High Fall Risk. Transportation set up with [employer] with [employer] claiming the trip-they have scheduled a 5 pm pickle sorter. Informed the Rn, pt aware -dtr Hilary and unite racing secretary and handicapper aware of dc time. 36 Observed: 07/27/2024 3:41 PM Status: COMPLETED Source: [facility] Notification of Hospital Dis charge Nick Arora was discharged from [facility] to home on 07/27/2024. Nick Braucher plans to follow up [place] [facility] Will route this note to Juan A Campa (Nate) to initiate Transitional Care Management Process. Prior to patient's discharge, the patient was scheduled an [facility] follow up appointment within 14 days of hospital discharge. Future Appointments Date Time Provider Department Center 08/04/2024 3:00 PM Rashawn Monge DO [facility] SUMMARY Observed: 07/27/2024 12:06 PM Status: COMPLETED Source: [facility] Attestation signed by Baldev Bosch MD at 07/27/2024 3:49 PM Patient seen and examined on day of discharge. Please refer to note dated on the day of discharge (07/27/24) for associated attestation, exam and plan. I reviewed documentation and agree with the documented findings and plan of care, unless otherwise noted. Time spent on discharge >30 minutes Of note, patient's urine culture is showing serratia marcescens Internal Medicine: Med Team Discharge Summary Nick Arora : 1960 ADMIT DATE: 07/25/2024 DISCHARGE DATE: 07/27/24 PCP: No primary care provider on file. Visit Status: Admission Code Status: FULL CODE Primary Discharge Diagnosis: Septic shock secondary to UTI Secondary Discharge Diagnoses: Hematuria Nephrolithiasis YUMIKO likely post-renal due to nephrolithiasis Heart failure with recovered ejction fraction (last EF 54% 04/2024) Parkinson's with dyskinesia Anxiety/depression BPH Non-insulin dependent type 2 diabetes Normocytic anemia HTN Reason for Admission & Hospital Course: Nick Arora is a 64 y.o. male with PMHx of recent YUMIKO 2/2 urinary retention, and total L knee replacement (06/22/24) seen at [facility], heart failure with recovered ejection fraction currently is (54%), alq-uhcceor-neesbvabz T2DM, BPH, kidney stones w/stent (5 years ago), and Parkinson's Dz w/dyskinesia that presented to [facility] on 07/25/2024 from home. Pt w/hematuria for past three days, associated with dysuria. Pt daughter picked him up on 07/25 to bring him to [facility], however pt was weak and nearly fell climbing into her truck. He was helped into the truck by a bystander. She also reported pt has had some confusion for a couple of days. In the ED, pt was hemodynamically stable. Labs were significant for Lactic acid 4.4, BUN 25, Cr 1.67, GFR 44.9, glucose 188, WBC 11.7, Hgb 11, and Hct 34. His urine was positive for bacteria, RBC>100, WBC 26-50, glucose >1000, protein 70, and leukocyte esterase 75. CT AP showed small stone in each kidney with no hydronephrosis. During admission, urine culture was significant for serratia marcescens. Pt was initially treated with vancomycin and cefepime in the ED but later changed to Bactrim for infection coverage. Bilateral LE duplex was performed with negative findings. His leukocytosis and lactic acidosis resolved and renal function normalized. Urology was consulted but declined any acute intervention at this time. Hematuria has resolved and patient is afebrile. Patient passed his voiding trial. He is clinically stable and ready to be discharge with follow-up outpatient with urology. Disposition: Home Activity: No restriction. Diet: Adult diet Regular Discharge Medications: Medication List START taking these medications sulfamethoxazole-trimethoprim 800-160 MG tablet Commonly known as: Bactrim DS Take 1 tablet by mouth in the morning and 1 tablet in the evening. Do all this for 15 doses. CONTINUE taking these medications amLODIPine 10 MG tablet Commonly known as: Norvasc atorvastatin 20 MG tablet Commonly known as: Lipitor carbidopa-levodopa 25-100 MG tablet Commonly known as: Sinemet citalopram 40 MG tablet Commonly known as: CeleXA dapagliflozin 10 MG tablet Commonly known as: Farxiga lisinopril 10 MG tablet pantoprazole 40 MG EC tablet Commonly known as: ProtoNix senna-docusate 8.6-50 MG tablet Commonly known as: Promise-Colace spironolactone 25 MG tablet Commonly known as: Aldactone tamsulosin 0.4 MG 24 hr capsule Commonly known as: Flomax STOP taking these medications cloNIDine 0.2 MG tablet Commonly known as: Catapres Where to Get Your Medications These medications were sent to [facility] [address] [place] [address] Hours: Thursday to Thursday 10 am to 6 pm sulfamethoxazole-trimethoprim 800-160 MG tablet Notable Medication Changes & Reasoning: UTI - Bactrim with end date 08/03/2024 Consultants Urology was consulted and recommends outpatient follow-up for cystoscopy and other workup for his intermittent hematuria. Procedures Performed none Significant Laboratory/Radiographic Data: 07/25/24 XR chest with normal findings 07/25/24 XR knee showed L total knee arthroplasty and small joint effusion 07/25/24 CT abd/pelvis demonstrative of small stone in each kidney and small fat-containing umbilical hernia containing fluid 07/25/24 Blood Cx x 2 w/no growth at 224 hrs 07/25/24 Urine Cx positive for Serratia marcescens Pending Results at Time of Discharge None Follow Up Appointment(s): Will follow up outpatient with urology Items to Address at Followup Visit: Cystoscopy and intermittent hematuria. [id number] Observed: 07/27/2024 11:54 AM Status: COMPLETED Source: [facility] Care Management Progress Not e Spoke with daughter. She feels pt needs to go somewhere to get stronger. Asked for OT orders. Will ask PT to see again. Will follow for needs. Length of Stay (Days): 2 GMLOS: No GMLOS Documented 36 Observed: 07/27/2024 8:42 AM Status: COMPLETED Source: [facility] Currently admitted. 30 Observed: 07/27/2024 8:41 AM Status: COMPLETED Source: [facility] Problem: Knowledge Deficit Goal: Patient/family/caregiver demonstrates understanding of disease process, treatment plan, medications, and discharge instructions Outcome: ProgressingProblem: Potential for Compromised Skin Integrity Goal: Skin Integrity is Maintained or Improved Outcome: ProgressingGoal: Nutritional status is improving Outcome: ProgressingProblem: Urinary Incontinence Goal: Perineal skin integrity is maintained or improved Outcome: ProgressingProblem: Potential for Falls Goal: I will remain free of falls Outcome: ProgressingProblem: Discharge Barriers Goal: My discharge needs are met Outcome: ProgressingProblem: Pain - Adult Goal: Verbalizes/displays adequate comfort level or baseline comfort level Outcome: ProgressingProblem: Safety - Adult Goal: Free from fall injury Outcome: ProgressingProblem: Discharge Planning Goal: Discharge to home or other facility with appropriate resources Outcome: ProgressingProblem: Chronic Conditions and Co-morbidities Goal: Patient's chronic conditions and co-morbidity symptoms are monitored and maintained or improved Outcome: Progressing NURSING NOTE Observed: 07/27/2024 8:25 AM Status: COMPLETED Source: [facility] Wound Care consulted for Pre ssure Injury Prevention. Pt's Santosh= 19, pt is no longer at risk. Skin Care Precaution order set in place. PT consult in place. Will continue to follow peripherally. Please voicera or secure chat message with any questions. Hermila Camarena RN, CWCN PROGRESS NOTE Observed: 07/27/2024 6:42 AM Status: COMPLETED Source: [facility] Med Team Progress Note Nick Arora : 1960(64 y.o.) Date: July 27, 2024 Med Team: C Attending: Dr. Bosch Chief Complaint: Blood in urine Subjective: - No acute events overnight. - Currently, Nick says that's the best I slept in a long time. He feels good and is looking forward to the football game on Thursday. I even got my voice back. BM yesterday: had a real good one. No new symptoms. Spoke w/daughter at bedside. Shared the improvements in Cr and WBC labs, our plan to resume heart/HTN meds and hopes for a successful void trial soon with pt goal of attending Thursday football game in mind. She asked about post catheter UTI risk as pt has a Hx. PRN meds used in last 24hrs: N/A Agree with above Review of Systems Respiratory: Negative for cough, chest tightness and shortness of breath. Cardiovascular: Negative for chest pain. Gastrointestinal: Negative for constipation and diarrhea. Psychiatric/Behavioral: Negative for dysphoric mood and sleep disturbance. Scheduled Meds:[Held by provider] amLODIPine, 10 mg, Oral, Daily atorvastatin, 20 mg, Oral, Nightly carbidopa-levodopa, 1 tablet, Oral, TID citalopram, 20 mg, Oral, Daily [Held by provider] cloNIDine, 0.2 mg, Oral, q8h dapagliflozin, 10 mg, Oral, Daily with breakfast insulin lispro, 0-6 Units, SubCUTAneous, TID WC [Held by provider] lisinopril, 10 mg, Oral, Daily pantoprazole, 40 mg, Oral, qAM AC piperacillin-tazobactam, 3,375 mg, IntraVENous, q8h polyethylene glycol (PEG) 3350, 17 g, Oral, Daily senna-docusate sodium, 1 tablet, Oral, BID [Held by provider] spironolactone, 25 mg, Oral, Daily tamsulosin, 0.4 mg, Oral, Daily Continuous Infusions: Objective: BP 154/84 (BP Location: Right arm, Patient Position: Lying) Pulse 70 Temp 36.1 ?C (96.9 ?F) (Temporal) Resp 17 Ht 6' 0.01 (1.829 m) Wt 206 lb 12.8 oz (93.8 kg) SpO2 96% BMI 28.04 kg/m? Physical Exam Constitutional: Appearance: Normal appearance. HENT: Head: Normocephalic and atraumatic. Nose: Nose normal. Eyes: Conjunctiva/sclera: Conjunctivae normal. Cardiovascular: Rate and Rhythm: Normal rate and regular rhythm. Pulmonary: Effort: Pulmonary effort is normal. Breath sounds: Normal breath sounds. Abdominal: General: Bowel sounds are normal. Palpations: Abdomen is soft. Tenderness: There is no abdominal tenderness. There is no guarding. Genitourinary: Comments: Coude cath in place collecting clear yellow urine Musculoskeletal: Right lower leg: No edema. Left lower leg: No edema. Neurological: Mental Status: He is alert. Psychiatric: Attention and Perception: Attention normal. Mood and Affect: Mood and affect normal. Mood is not depressed. Speech: Speech normal. Behavior: Behavior normal. Behavior is cooperative. [facility] within last 24 hours Auto WBC Date Value Ref Range Status 07/27/2024 9.1 3.6 - 10.7 10*3/uL Final Hemoglobin Date Value Ref Range Status 07/27/2024 11.2 (L) 13.0 - 18.0 g/dL Final Hematocrit Date Value Ref Range Status 07/27/2024 35.0 (L) 40.0 - 52.0 % Final Platelets Date Value Ref Range Status 07/27/2024 313 140 - 440 10*3/uL Final MCV Date Value Ref Range Status 07/27/2024 94.1 77.0 - 99.0 fL Final SODIUM Date Value Ref Range Status 07/27/2024 136 135 - 145 mmol/L Final POTASSIUM Date Value Ref Range Status 07/27/2024 4.1 3.5 - 5.1 mmol/L Final CHLORIDE Date Value Ref Range Status 07/27/2024 106 98 - 107 mmol/L Final CARBON DIOXIDE Date Value Ref Range Status 07/27/2024 24 22 - 30 mmol/L Final UREA NITROGEN Date Value Ref Range Status 07/27/2024 14 9 - 20 mg/dL Final CREATININE Date Value Ref Range Status 07/27/2024 1.29 (H) 0.66 - 1.25 mg/dL Final GLUCOSE Date Value Ref Range Status 07/27/2024 107 (H) 70 - 100 mg/dL Final CALCIUM Date Value Ref Range Status 07/27/2024 9.5 8.4 - 10.4 mg/dL Final MAGNESIUM Date Value Ref Range Status 07/27/2024 1.9 1.6 - 2.3 mg/dL Final PHOSPHORUS Date Value Ref Range Status 07/27/2024 5.0 (H) 2.5 - 4.5 mg/dL Final AST (SGOT) Date Value Ref Range Status 07/27/2024 18 15 - 46 U/L Final ALT Date Value Ref Range Status 07/27/2024 <4 0 - 49 U/L Final TOTAL PROTEIN Date Value Ref Range Status 07/27/2024 6.4 6.3 - 8.2 g/dL Final BILIRUBIN, TOTAL Date Value Ref Range Status 07/27/2024 0.7 0.2 - 1.3 mg/dL Final ALKALINE PHOSPHATASE Date Value Ref Range Status 07/27/2024 79 38 - 126 U/L Final No results found for: CKTOTAL, CKMB, TROPONINI VANCOMYCIN, AUC Date Value Ref Range Status 07/27/2024 8.2 (L) 15.0 - 20.0 ug/mL Final Assessment and Plan: Hematuria Nephrolithiasis Serratia marcescens complicated UTI -CT abd/pelvis 07/25/24: small stone in each kidney; no hydronephrosis -Urine and blood Cx pending -Coude catheter in place -Urology following, appreciate recs Plan -Continue IV Zosyn q8h -Attempt void trial today Agree with above. Will switch the Zosyn to Bactrim and complete 10 days for complicated UTI with stones. He passed the voiding trial, urology ok with discharge today Status post total L knee replacement L knee pain -XR knee 07/25/24: small joint effusion -Bilateral LE duplex 07/26/24: negative -Pt afebrile Plan -Monitor for infectious process -PT/OT following Agree with above YUMIKO likely post-renal due to nephrolithiasis -Encourage oral intake Agree with above Heart failure w/recovered ejection fraction - last EF 54% (04/2024) -Continue atorvastatin 20 mg nightly -Restart lisinopril 10 mg daily -Restart spironolactone 25 daily Agree with above Normocytic anemia -Hgb 11.2 -Pt hemodynamically stable Plan -Trend CBC HTN -Antihypertensives initially held in setting of nephrolithiasis -Reintroduce as tolerated Plan -Restart amlodipine 10 mg daily -Restart clonidine 0.2 mg q8h Resolved Problems: Lactic acidosis Leukocytosis Septic shock secondary to UTI Chronic Problems and Follow Up Items: BPH -Continue Flomax 0.4 mg Parkinson's w/dyskinesia -Continue Sinemet 1 tablet TID Anxiety/depression -Continue Celexa 20 mg daily -Continue PRN hydroxyzine Constipation - improved -Continue daily Senokot tablet -Change Miralax to PRN Jek-[id number]-prrfmgbfc type 2 diabetes -Continue Farxiga 10 mg daily -Continue sliding scale insulin TID - Goals of Care: FULL CODE - DVT Prophylaxis: SCD's or Sequential Compression Device - GI Prophylaxis: Protonix daily - Diet: General On 07/27/24 I personally examined the patient and reviewed the case with the resident and or med student. I have personally taken a history, examined the patient, and performed the associated medical decision making activities. I have reviewed & verified the attested documentation. Unless otherwise noted below, this documentation reflects the history, physical exam, and medical decision making that I performed myself. I agree with the current plan of care including the workup, evaluation, management, and diagnosis. Care plan has been discussed. The above documentation has been reviewed and edited as needed to reflect the findings of my evaluation. Attending comments are in bold. WITH AUTO DIFFERENTIAL Collected: 07/27/2024 1:26 AM Status: F Source: [facility] TYPE CODE TESTS RESULT OUT OF RANGE REFERENCE UNITS LAB [id number] WBC 9.1 3.6-10.7 10*3/uL LAB [id number] RBC 3.72 Low 4.40-5.90 10*6/uL LAB [id number] HEMOGLOBIN 11.2 Low 13.0-18.0 g/dL LAB [id number] HEMATOCRIT 35.0 Low 40.0-52.0 % LAB [id number] MCV 94.1 77.0-99.0 fL LAB [id number] MCH 30.1 26.0-34.0 pg LAB 7041213 MCHC 32.0 30.5-36.0 % LAB [id number] RDW 12.9 11.5-15.0 % LAB [id number] PLATELET COUNT 313 140-440 10*3/uL LAB 9235030 MPV 9.7 9.0-12.7 fL LAB 254 NRBC 0.0 0.0-2.0 /100 WBCs LAB [id number] NEUTROPHILS RELATIVE 50.7 38.0-82.0 % LAB [id number] LYMPHOCYTES RELATIVE 35.9 15.0-45.0 % LAB [id number] MONOCYTES RELATIVE 8.4 5.0-13.0 % LAB 3344493 EOSINOPHILS RELATIVE 3.9 0.0-6.0 % LAB 2166729 BASOPHILS RELATIVE 0.9 0.0-2.0 % LAB 4932112 IMMATURE GRANS % 0.2 0.0-2.0 % LAB [id number] NEUTROPHILS ABSOLUTE 4.6 1.8-7.5 10*3/uL LAB 0407476 LYMPHOCYTES ABSOLUTE 3.3 1.0-4.3 10*3/uL LAB 9700747 MONOCYTES ABSOLUTE 0.8 0.0-0.9 10*3/uL LAB 2949214 EOSINOPHILS ABSOLUTE 0.4 0.0-0.5 10*3/uL LAB 2830407 BASOPHILS ABSOLUTE 0.1 0.0-0.2 10*3/uL LAB 833681 IMMATURE GRANS ABSOLUTE 0.0 <0.1 10*3/uL Performed By: #### [id number] # ### High Man: ROLA GARCIA ([id number]) [facility]) [address] [place] [address] VANCOMYCIN, AUC TIMED DOSING Collected: 07/27/2024 1: 26 AM Status: F Source: [facility] [employer] [facility] Order Comment: Please draw r andom level at least >2 hours after the end of the last vancomycin infusion, or 30-minutes before next infusion. TYPE CODE TESTS RESULT OUT OF RANGE REFERENCE UNITS LAB [id number] VANCOMYCIN, AUC 8.2 Low 15.0-20.0 ug/mL Performed By: #### [id number] ### # High Man: ROLA GARCIA ([id number]) [facility]) [address] [place] [address] MAGNESIUM Collected: 1:26 AM Status: F Source: [facility] [employer] [facility] TYPE CODE TESTS RESULT OUT OF RANGE REFERENCE UNITS LAB [id number] MAGNESIUM 1.9 1.6-2.3 mg/dL Performed By: #### [id number], L AB113, LAB17 #### High Man: ROLA GARCIA ([id number]) [address] PHOSPHORUS Collected: 1:26 AM Status: F Source: [facility] [employer] [facility] TYPE CODE TESTS RESULT OUT OF RANGE REFERENCE UNITS LAB [id number] PHOSPHORUS 5.0 High 2.5-4.5 mg/dL Performed By: #### [id number], L AB113, LAB17 #### High Man: ROLA GARCIA ([id number]) [facility]) [address] [place] [address] COMPREHENSIVE METABOLIC PANEL Collected: 07/27/2024 1 :26 AM Status: F Source: [facility] TYPE CODE TESTS RESULT OUT OF RANGE REFERENCE UNITS LAB [id number] SODIUM 136 135-145 mmol/L LAB [id number] POTASSIUM 4.1 3.5-5.1 mmol/L LAB 4581839 CHLORIDE 106 98-107 mmol/L LAB 2239901 CARBON DIOXIDE 24 22-30 mmol/L LAB 5177771 ANION GAP 6 3-13 mmol/L LAB 2564686 UREA NITROGEN 14 9-20 mg/dL LAB 3059450 CREATININE 1.29 High 0.66-1.25 mg/dL LAB 4909009 GLUCOSE 107 High 70-100 mg/dL LAB 1257820 CALCIUM 9.5 8.4-10.4 mg/dL LAB 5809851 AST (SGOT) 18 15-46 U/L LAB 9205966 ALT <4 0-49 U/L LAB 3975102 ALKALINE PHOSPHATASE 79 38-126 U/L LAB 5491862 ALBUMIN 3.7 3.5-5.0 g/dL LAB 7465864 BILIRUBIN, TOTAL 0.7 0.2-1.3 mg/dL LAB 1619636 TOTAL PROTEIN 6.4 6.3-8.2 g/dL LAB 4571514 GLOMERULAR FILTRATION RATE ML/MIN/1.73 SQ M.PREDICTED 61.2 >60.0 mL/min/1. 73m*2 Result Comment: Calculation based on the Chronic Kidney Disease Epidemiology Collaboration (CKD-EPI) equation refit without adjustment for race Performed By: #### [id number], L AB113, LAB17 #### High Man: ROLA GARCIA ([id number]) [facility] ([address] 30 Observed: 07/26/2024 9:17 PM Status: COMPLETED Source: [facility] The patient is Moderately St able - Low risk of patient condition declining or worsening The patient's goals for the shift include get sleep The clinical goals for the shift include maintain urine output Problem: Knowledge Deficit Goal: Patient/family/caregiver demonstrates understanding of disease process, treatment plan, medications, and discharge instructions Outcome: ProgressingProblem: Potential for Compromised Skin Integrity Goal: Skin Integrity is Maintained or Improved Outcome: ProgressingGoal: Nutritional status is improving Outcome: ProgressingProblem: Urinary Incontinence Goal: Perineal skin integrity is maintained or improved Outcome: ProgressingProblem: Potential for Falls Goal: I will remain free of falls Outcome: ProgressingProblem: Discharge Barriers Goal: My discharge needs are met Outcome: ProgressingProblem: Pain - Adult Goal: Verbalizes/displays adequate comfort level or baseline comfort level Outcome: ProgressingProblem: Safety - Adult Goal: Free from fall injury Outcome: ProgressingProblem: Discharge Planning Goal: Discharge to home or other facility with appropriate resources Outcome: ProgressingProblem: Chronic Conditions and Co-morbidities Goal: Patient's chronic conditions and co-morbidity symptoms are monitored and maintained or improved Outcome: Progressing PROGRESS NOTE Observed: 07/26/2024 2:58 PM Status: COMPLETED Source: [employer] [facility] Initial Evaluation Name/MRN: Nick Arora ([id number]) Evaluation Date: 07/26/2024 Date of : 1960 Admission Date: 07/25/2024 12:25 PM Age: 64 y.o. Room/Bed: [facility] Discharge Recommendation: Home with assist PRN, Home with Home health PT Other: tbd Assessment IMPRESSION: Nick Arora was admitted on 07.25.24 with septic shock secondary to a UTI. He also had a TKA on 06/22/24 at [facility]. He has Parkinson's disease. He lives at home with his . He is still using a FWW to ambulate. He has LLE edema. Ice was provided at the end of the session.He complains of stiffness and swelling in his LLE. He is negative for DVT. He has not yet had home PT begin, they were supposed to start soon. He ambulated, exercised, and returned to bed at the end of the session with a pillow under his sacrum because he fractured it and it hurts. Anticipate he will go home at discharge, with assist and with home PT. Admitting Diagnosis: septic shock, UTI Prognosis: good Performance Deficits /Impairments: Increased Pain, Decreased Functional Mobility, Decreased Strength, Decreased Endurance, Decreased Balance, Decreased ROM, Decreased High Level IADLs, Decreased Coordination, and Decreased Posture Decision Making: Medium Complexity Subjective Patient was up in the chair at onset, and in the bed at the end of the session. He states that the chair hurts his sacrum. Offered a waffle cushion, but he prefers a pillow. Pain: RN managing pain. Increased pain with ambulation and with sitting. Ice was provided for his knee pain. Pillow was provided to offload his sacrum in bed. Past Medical History: Past Medical History: Diagnosis Date BPH (benign prostatic hyperplasia) Chronic combined systolic and diastolic heart failure ([facility]) HTN (hypertension) Mild depression Parkinson disease with dyskinesia ([facility]) T2DM (type 2 diabetes mellitus) ([facility]) Past Surgical History: History reviewed. No pertinent surgical history. Admission Diagnosis: Patient Active Problem List Diagnosis Date Noted Normocytic anemia 07/26/2024 Major depressive disorder 07/26/2024 BPH (benign prostatic hyperplasia) 07/26/2024 HFrEF (heart failure with reduced ejection fraction) ([facility]) 07/26/2024 YUMIKO (acute kidney injury) ([facility]) 07/26/2024 Complicated UTI (urinary tract infection) 07/26/2024 Hematuria 07/26/2024 Septic shock ([facility]) 07/25/2024 Medical Precautions: No active isolations Proper PPE donned/doffed in accordance with facility standards. Fall Risk: Alvarez Fall Risk Score: 60 (Low Risk) Alvarez Fall Risk Score: 60 (High Risk) Precautions/Restrictions: Other Position/Activity Restriction: pain, swelling (recent left knee replacement) Fall Precautions Family/Caregiver Present: none Overall Cognitive Status: WFL Overall Orientation Status: Oriented to Place, Oriented to Situation, and Oriented to Person Vision: not assessed this session Hearing: impaired Social/Functional History Patient admitted from home. Lives With: Spouse Type of Home: apartment Home Layout: Single Level Home Home Access: Stairs to Enter without Rails (# of stairs: 1) Bathroom Shower/Tub: Toilet: Standard Home Equipment: front wheeled walker Homemaking Responsibilities: Needs Assist Receives Help From: Spouse Active Senior Net C Developer: No Prior Level of Function Prior Level of ADL Function: Required Assist Prior Level of Mobility: Required Assist; Device: Front wheeled walker Prior Level of Transfers: Required Assist Objective Lower Extremity Assessment AROM: Impaired: LLE with decreased flexion to ~100 degrees, and lacking approx 5 degrees of extension. PROM: Not assessed this session Strength: WFL Sensation: Impaired: DM with neuropathy Balance: Balance During Session: Posture: fair Sitting - Static: Modified Independent Sitting - Dynamic: Modified Independent Standing - Static: Contact Guard Standing - Dynamic: Min Assist Bed Mobility: Supine to sit: Contact Guard Sit to supine: Min Assist Transfers Sit to stand: Min Assist Stand to sit: Contact Guard Ambulation Ambulation 1 Assistive device(s) used: Front wheeled walker Assist level: Contact Guard Distance (ft): 55' x 3 Quality of gait: antalgic, reciprocal stepping, uneven step length, slow margareth Coordination: Impaired: decreased coordination with transfers and with turns, but not at risk for falling during gait. Heart Failure on Admission Dyspnea: No Heart failure diagnosis: Yes dyspnea with moderate exertion Outcome Measures AM-PAC How much HELP from another person do you currently need Turning from your back to your side while in a flat bed without using bedrails?: A Little Moving from lying on your back to sitting on the side of a flat bed without using bedrails?: A Lot Moving to and from a bed to a chair (including a wheelchair)?: A Lot Standing up from a chair using your arms (wheelchair or bedside chair)?: A Lot Walking in a hospital room?: A Little Stair climbing assessed?: No AM-PAC Inpatient Mobility Raw Score (No Stairs) : 12 [facility] Score: Walked 25 ft or more (i.e. walked outside of room) Plan Pt would benefit from skilled acute PT services to address Strengthening, Gait Training, Balance Training, Functional Mobility Training, Endurance Training, Stair Training, Pain Management, and Positioning. Frequency: 4x/week for 2 weeks Barriers: Pain, Impaired balance, Lower extremity weakness, and Decreased endurance Safety/Education Safety Safety Devices in place: call light within reach, left in bed, chair alarm in place, gait belt, and nurse notified Restraints: No Education Education Given To: patient Education Provided: PT Role, Gait Training, Precautions, Transfer Training, Equipment, and Discharge Recommendations Education Method: Verbal and Demonstration Barriers to Learning: Vision Education Outcome: Verbalized Understanding Goals Patient Stated Goal: To feel better, move better. Encounter Problems Encounter Problems (Active) Mobility Patient will ambulate 250' feet with supervision and rolling walker in order to improve safety and independence with mobility. Start: 07/26/24 Expected End: 08/09/24 Patient will ascend and descend 2 stairs with one railing and supervision in order to safely negotiate home. Start: 07/26/24 Expected End: 08/09/24 Transfers Patient will perform bed mobility with supervision in order to improve independence and prepare for out of bed mobility. Start: 07/26/24 Expected End: 08/09/24 Patient will complete functional transfer with least restrictive device with supervision in order to prepare for ambulation. Start: 07/26/24 Expected End: 08/09/24 Therapy Time Individual Co-treatment Time In 1400 Time Out 1430 Minutes 30 Marjan Paul PT Patient's Physical Therapy Plan of Care supervision is transferred to a [facility] Physical Therapist. Goals and/or treatment plan was established in collaboration with patient/family/other representatives. [id number] Observed: 07/26/2024 2:29 PM Status: COMPLETED Source: [facility] According to [facility], pt was sent home from [facility] with [facility] [employer] [facility] [address] [place] [address] Referral started in [facility] to verify services with this agency. ADDENDUM: 07/26/24 4:06 PM Elzbieta called this HCL from [facility] and verified pt is active for SN/PT/OT with them. Reporter following case for Discharge Needs. [id number] Observed: 07/26/2024 12:13 PM Status: COMPLETED Source: [facility] Care Managment Initial Asses sment Date: 07/26/2024 Patient Name: Nick Arora : 1960 Patient Information Source of Information: Patient Cognition/Language: WFL - Within Functional Limits Permission given to speak with patient retail sales representative/caregiver as indicated: Confirmation of Payer with patient/family: Yes Payer Name: [facility] Medicare [place]: No Confirmation of Primary Care Physician: Confirmed PCP Name: Undure states his daughter just got him one Seen in last 2 years?: No Primary Caregiver: Self If assistance needed, confirmed caregiver ready, willing and able to care for patient at discharge: Confirmed with: Living Arrangements Current Residence: Apartment Number of Floors 1 Number of Entry Steps: Bed/Bath Levels: Both first floor Facility: Facility Name: Plan to Return: Lives with: Spouse/significant other Support Systems: Spouse/significant other, Children, Family members, Friends/neighbors Activities of Daily Living Ambulation: Independent Bathing/Dressing: Independent Elimination/Continence/Toileting: Independent Feeding: Independent Who Assists with Activities of Daily Living: Instrumental Activities of Daily Living Prescription Coverage: Yes Pharmacy Used: [facility] Medication Management: Independent Transportation/Shopping: Independent Transportation Mode: Car Needs Assistance with Transportation at Discharge: No Meal Preparation: Independent Laundry/Cleaning: Independent Finances/Bill Paying: Independent Communication: Independent Types of Care Services/Equipment Utilized Care Services: (n/a) Dialysis Type: NA Durable Medical Equipment: Walker, Bedside Commode Patient's Goal/Discharge Plan Patient expects to be discharged to: Home Discharge Planning Actions: Patient's Choice Rights and [employer] and Collaborative Relationships Disclosed as Indicated for Post-Acute Care: Interdisciplinary Team Engagement: Social Work Referral for: Additional Information: Went into room introduced self and role to pt. He appears to be A 0 x 3. He came to ER with c/o blood in his urine. Urology has been consulted. Started on IV antibiotics for UTI. Went for a vascular US. Was negative. Need PT to eval. Wants to go home when stable, will follow for needs. . Brittany Alvarez RN 30 Observed: 07/26/2024 11:43 AM Status: COMPLETED Source: [facility] Problem: Knowledge Deficit Goal: Patient/family/caregiver demonstrates understanding of disease process, treatment plan, medications, and discharge instructions Outcome: ProgressingProblem: Potential for Compromised Skin Integrity Goal: Skin Integrity is Maintained or Improved Outcome: ProgressingGoal: Nutritional status is improving Outcome: ProgressingProblem: Urinary Incontinence Goal: Perineal skin integrity is maintained or improved Outcome: ProgressingProblem: Potential for Falls Goal: I will remain free of falls Outcome: ProgressingProblem: Discharge Barriers Goal: My discharge needs are met Outcome: Progressing VASC US LOWER EXTREMITY VENOUS DUPLEX BILATERAL Observed: 07/26/2024 10:57 AM Status: F Source: [facility] This is a summary report. Th e complete report is available in the patient's medical record. If you cannot access the medical record, please contact the sending organization for a detailed fax or copy. ? No evidence of deep vein or superficial vein thrombosis in the right lower extremity. Vessels demonstrate normal compressibility, color filling, and phasic and spontaneous flow. ? No evidence of deep vein or superficial vein thrombosis in the left lower extremity. Vessels demonstrate normal compressibility, color filling, and phasic and spontaneous flow. PROGRESS NOTE Observed: 07/26/2024 10:28 AM Status: COMPLETED Source: [facility] Vancomycin therapy has been discontinued by Anil Julien on 07/26/24. Thank you for the consult. Pharmacy signing off for vancomycin dosing. Jos Llamas, PharmD Date: 07/26/24 Time: 10:28 AM 36 Observed: 07/26/2024 10:21 AM Status: COMPLETED Source: [facility] Patient currently still admi tted PROGRESS NOTE Observed: 07/26/2024 7:31 AM Status: COMPLETED Source: [facility] Pharmacy to Dose Vancomycin - Progress Note Lab Results Component Value Date CREATININE 1.45 (H) 07/26/2024 BUN 18 07/26/2024 WBC 10.9 (H) 07/26/2024 VANCOTROUGH 7.8 (L) 07/26/2024 Doses, serum creatinine, and vancomycin levels interfaced automatically to [employer] and data has been analyzed and interpreted. Infectious Diagnosis: sepsis Est CrCl: Estimated Creatinine Clearance: 60.7 mL/min (A) (by C-G formula based on SCr of 1.45 mg/dL (H)). mL/min (Cockcroft-Gault) Assessment: Patient received a one time dose of 1250 mg on 07/25/24 at 17:14. Then will proceed with current planned regimen of vancomycin 1500 mg every 24 hours. As of writing this ivent note patient has not yet received a dose of planned regimen of 1500 mg every 24 hours. Predicted DWA11-54 = 338 mg/L*hr (goal 400-600 mg/L*hr) PAUC = 42% (probability that AUC is >400 mg/L*hr) Pconc = 0% (probability that Ctrough is above 20 mcg/mL (toxicity)) Plan: Is the current dose therapeutic? [] [x] No - predicted subtherapeutic. Will change current regimen to vancomycin 1000 mg every 12 hourss for predicted LPI25-63 427 mg/L*hr (AUCss: 514 mg/L.hr), PAUC = 97% , and Pconc* = 10%. Obtain next level on 07/27/24. Trend serum creatinine. Trend AUC using Bayesian Modeling. Orders placed. Insight summary below: Regimen: 1000 mg IV every 12 hours. Start time: 17:14 on 07/26/2024 Exposure target: AUC24 (range)400-600 mg/L.hr AZH88-85: 427 mg/L.hr AUC24,ss: 514 mg/L.hr Probability of AUC24 > 400: 97 % Ctrough,ss: 15.9 mg/L Probability of Ctrough,ss > 20: 10 % DATE: 07/26/24 TIME: 7:25 AM Jos Llamas PharmD Clinical Pharmacist Available via Secure Chat CONSULT Observed: 07/26/2024 7:19 AM Status: COMPLETED Source: [facility] Pt does not meet criteria fo r bedside, in-patient Survival Skills Diabetes Education; Criteria includes the following; Newly diagnosed Diabetes and/or pre-existing Diabetes and new to insulin therapy. A1C= 6.1% Out-patient Diabetes Self-Management Education (DSME) is appropriate for this patient: [facility] [place]: Endocrinology [phone] PROGRESS NOTE Observed: 07/26/2024 6:39 AM Status: COMPLETED Source: [facility] Attestation signed by Baldev Bosch MD at 07/26/2024 3:57 PM Agree with note, see H&P for attending comments Med Team Progress Note Nick Arora : 1960(64 y.o.) Date: July 26, 2024 Med Team: Madai Attending: Dr. Bosch Chief Complaint: blood in urine Subjective: - No acute events overnight. - Currently, Mr. Arora is comfortable resting in bed and in no acute distress. He stated he is anxious to get out in. He denied chest pain, SOB, abdominal pain, n/v/d. He endorsed constipation. Patient has been seen by urology. He is overall clinically stable. PRN meds used in last 24hrs: hydroxyzine x 1 Review of Systems Constitutional: Negative for chills, diaphoresis, fatigue and fever. Respiratory: Negative for chest tightness and shortness of breath. Cardiovascular: Negative for chest pain, palpitations and leg swelling. Gastrointestinal: Positive for constipation. Negative for abdominal pain. Musculoskeletal: Negative for back pain. Neurological: Negative for dizziness, weakness, light-headedness and headaches. Psychiatric/Behavioral: Negative for agitation, confusion and dysphoric mood. The patient is not nervous/anxious. Scheduled Meds:[Held by provider] amLODIPine, 10 mg, Oral, Daily atorvastatin, 20 mg, Oral, Nightly carbidopa-levodopa, 1 tablet, Oral, TID citalopram, 20 mg, Oral, Daily [Held by provider] cloNIDine, 0.2 mg, Oral, q8h dapagliflozin, 10 mg, Oral, Daily with breakfast insulin lispro, 0-6 Units, SubCUTAneous, TID WC [Held by provider] lisinopril, 10 mg, Oral, Daily pantoprazole, 40 mg, Oral, qAM AC piperacillin-tazobactam, 3,375 mg, IntraVENous, q8h senna-docusate sodium, 1 tablet, Oral, BID [Held by provider] spironolactone, 25 mg, Oral, Daily [Held by provider] tamsulosin, 0.4 mg, Oral, Daily vancomycin, 15 mg/kg, IntraVENous, q24h Continuous Infusions: Objective: BP 120/66 (BP Location: Left arm, Patient Position: Lying) Pulse 65 Temp 36.6 ?C (97.8 ?F) (Temporal) Resp 18 Ht 6' 0.01 (1.829 m) Wt 215 lb 3.2 oz (97.6 kg) SpO2 93% BMI 29.18 kg/m? Physical Exam Vitals reviewed. HENT: Head: Normocephalic and atraumatic. Nose: Nose normal. Eyes: Conjunctiva/sclera: Conjunctivae normal. Cardiovascular: Rate and Rhythm: Normal rate and regular rhythm. Pulmonary: Effort: Pulmonary effort is normal. Abdominal: General: Bowel sounds are normal. Palpations: Abdomen is soft. Tenderness: There is no abdominal tenderness. Genitourinary: Comments: Coude catheter in place Musculoskeletal: Right lower leg: No edema. Neurological: General: No focal deficit present. Mental Status: He is alert. Psychiatric: Mood and Affect: Mood normal. Behavior: Behavior normal. [facility] within last 24 hours Auto WBC Date Value Ref Range Status 07/26/2024 10.9 (H) 3.6 - 10.7 10*3/uL Final Hemoglobin Date Value Ref Range Status 07/26/2024 10.2 (L) 13.0 - 18.0 g/dL Final 07/25/2024 7.8 (L) 13.0 - 18.0 g/dL Final 07/25/2024 11.0 (L) 13.0 - 18.0 g/dL Final Hematocrit Date Value Ref Range Status 07/26/2024 32.5 (L) 40.0 - 52.0 % Final Platelets Date Value Ref Range Status 07/26/2024 285 140 - 440 10*3/uL Final MCV Date Value Ref Range Status 07/26/2024 95.0 77.0 - 99.0 fL Final SODIUM Date Value Ref Range Status 07/26/2024 136 135 - 145 mmol/L Final POTASSIUM Date Value Ref Range Status 07/26/2024 4.0 3.5 - 5.1 mmol/L Final CHLORIDE Date Value Ref Range Status 07/26/2024 104 98 - 107 mmol/L Final CARBON DIOXIDE Date Value Ref Range Status 07/26/2024 24 22 - 30 mmol/L Final UREA NITROGEN Date Value Ref Range Status 07/26/2024 18 9 - 20 mg/dL Final CREATININE Date Value Ref Range Status 07/26/2024 1.45 (H) 0.66 - 1.25 mg/dL Final 07/25/2024 1.01 0.66 - 1.25 mg/dL Final 07/25/2024 1.67 (H) 0.66 - 1.25 mg/dL Final GLUCOSE Date Value Ref Range Status 07/26/2024 108 (H) 70 - 100 mg/dL Final CALCIUM Date Value Ref Range Status 07/26/2024 9.1 8.4 - 10.4 mg/dL Final MAGNESIUM Date Value Ref Range Status 07/26/2024 2.4 (H) 1.6 - 2.3 mg/dL Final PHOSPHORUS Date Value Ref Range Status 07/26/2024 4.1 2.5 - 4.5 mg/dL Final AST (SGOT) Date Value Ref Range Status 07/26/2024 18 15 - 46 U/L Final ALT Date Value Ref Range Status 07/26/2024 5 0 - 49 U/L Final TOTAL PROTEIN Date Value Ref Range Status 07/26/2024 6.0 (L) 6.3 - 8.2 g/dL Final BILIRUBIN, TOTAL Date Value Ref Range Status 07/26/2024 0.6 0.2 - 1.3 mg/dL Final ALKALINE PHOSPHATASE Date Value Ref Range Status 07/26/2024 90 38 - 126 U/L Final No results found for: CKTOTAL, CKMB, TROPONINI PROCALCITONIN Date Value Ref Range Status 07/25/2024 0.11 (H) 0.00 - 0.09 ng/mL Final HEMOGLOBIN A1C Date Value Ref Range Status 07/25/2024 6.1 (H) <5.7 % Final Comment: Normal less than 5.7% Prediabetes 5.7% to 6.4% Diabetes 6.5% or higher --HgbA1C levels may not be accurate in patients who have renal disease, received recent blood transfusions, are anemic, or who have dyshemoglobinemia. VANCOMYCIN, AUC Date Value Ref Range Status 07/26/2024 7.8 (L) 15.0 - 20.0 ug/mL Final Assessment and Plan: Septic shock secondary to UTI - resolved Lactic acidosis - improved Leukocytosis - improving Hematuria Nephrolithiasis -CT abd and pelvis 07/25/24: small stone in each kidney with no hydronephrosis -Urine and blood Cx pending -Coude catheter in place -Urology following, appreciate recs Plan -Continue IV vancomycin 1000 mg q12 hrs -Continue Zosyn q8h - Urology recs a void trial prior to discharge. Status post total L knee replacement L knee pain -XR knee 07/25/24 indicative of small joint effusion -Bilateral LE duplex pending -Patient afebrile Plan -Will keep monitoring for any infectious process YUMIKO likely post-renal due to nephrolithiasis Plan -Encourage oral intake Heart failure w/recovered ejection fraction - last EF 54% (04/2024) -Continue atorvastatin 20 mg qhs -Hold lisinopril -Hold spironolactone 25 mg daily Normocytic anemia -Hgb 10.2 -Patient hemodynamically stable Plan -Trend CBC HTN -Antihypertensives held in setting of nephrolithiasis Plan -Hold amlodipine 10 mg daily -Hold clonidine 0.2 mg q8h -Will resume upon resolution of hematuria Chronic Problems and Follow Up Items: BPH -Restart Flomax 0.4 mg Parkinson's with dyskinesia -Continue Sinemet 1 tablet TID Anxiety/depression -Continue Celexa 20 mg -Continue PRN hydroxyzine 25 mg q6h for anxiety, allergies Constipation -Continue Senokot 1 tablet BID -Continue Miralax 17 g daily Gwr-hmrnos-kwoqrcmgl type 2 diabetes -Continue Farxiga 10 mg daily -Continue sliding scale insulin TID - Goals of Care: FULL CODE - DVT Prophylaxis: SCD's or Sequential Compression Device - GI Prophylaxis: Protonix daily - Diet: General 36 Observed: 07/26/2024 4:33 AM Status: COMPLETED Source: [facility] Pt consulted for intermitten t hx of gross hematuria. None seen currently inpatient. Will require outpatient f/u and possible cystoscopy CONSULT Observed: 07/26/2024 2:50 AM Status: COMPLETED Source: [facility] Attestation signed by Wang Villasenor MD at 07/26/2024 3:24 PM I saw and evaluated the patient, participating in the villalobos portions of the service. I reviewed the resident?s note. I agree with the resident?s findings and plan. Wang Villasenor MD Urology Inpatient Consultation 07/26/2024 HISTORY OF PRESENT ILLNESS: The patient is a 64 y.o.male unknown to our service w PMHx as stated below, including recent YUMIKO 2/2 urinary retention following L total knee at [facility] on 06/22/24. Presented to ER w complaints of intermittent bright red blood in urine for the last 72hrs. Urology consulted for assessment and management. Pt evaluated at bedside in NAD. Reiterates above. Also notes weakness. Also notes prior hematuria associated with renal stones but is unsure if they were passed or operated on. Most recently had a 1x episode of hematuria 2 weeks ago. Denies fever/chills, n/v, suprapubic pain, or dysuria. Denies any smoking hx, known family hx of cancers, or seeing a urologist Work up: AF HDS WBC 8.5(11.7) Hb 7.8(11) Cr 1.01(1.67) Lactate 4.4 UA: +LE, WBC, RBC, few bacteria Ucx/Bcx: (p) Zosyn/Vanc CT: small bilateral renal calculus, no hydro 16Fr conley coude PAST MEDICAL HISTORY: Past Medical History: Diagnosis Date BPH (benign prostatic hyperplasia) Chronic combined systolic and diastolic heart failure (HCC) HTN (hypertension) Mild depression Parkinson disease with dyskinesia (HCC) T2DM (type 2 diabetes mellitus) (HCC) PAST SURGICAL HISTORY: History reviewed. No pertinent surgical history. ALLERGIES: Allergies Allergen Reactions Hydrocodone-Acetaminophen Tramadol CURRENT MEDICATIONS: No current facility-administered medications on file prior to encounter. Current Outpatient Medications on File Prior to Encounter Medication Sig Dispense Refill atorvastatin (Lipitor) 20 MG tablet Take 1 tablet by mouth Nightly. carbidopa-levodopa (Sinemet) 25-100 MG tablet Take 1 tablet by mouth in the morning and 1 tablet at noon and 1 tablet in the evening. dapagliflozin (Farxiga) 10 MG tablet Take 1 tablet by mouth daily (with breakfast). lisinopril 10 MG tablet Take 10 mg by mouth in the morning. pantoprazole (ProtoNix) 40 MG EC tablet Take 40 mg by mouth every morning (before breakfast). senna-docusate (Promise-Colace) 8.6-50 MG tablet Take 1 tablet by mouth in the morning and 1 tablet in the evening. spironolactone (Aldactone) 25 MG tablet Take 25 mg by mouth in the morning. tamsulosin (Flomax) 0.4 MG 24 hr capsule Take 0.4 mg by mouth in the morning. amLODIPine (Norvasc) 10 MG tablet Take 10 mg by mouth in the morning. citalopram (CeleXA) 40 MG tablet Take 40 mg by mouth in the morning. cloNIDine (Catapres) 0.2 MG tablet Take 0.2 mg by mouth in the morning and 0.2 mg in the evening. FAMILY HISTORY: No family history on file. Social History: Social History Socioeconomic History Marital status: Spouse name: Not on file Number of children: Not on file Years of education: Not on file Highest education level: Not on file Occupational History Not on file Tobacco Use Smoking status: Never Smokeless tobacco: Never Substance and Sexual Activity Alcohol use: Not Currently Drug use: Not Currently Sexual activity: Not Currently Other Topics Concern Not on file Social History Narrative Not on file Social Drivers of Health Financial Resource Strain: Low Risk (07/25/2024) Overall Financial Resource Strain (CARDIA) Difficulty of Paying Living Expenses: Not very hard Food Insecurity: No Food Insecurity (07/25/2024) Hunger Vital Sign Worried About Running Out of Food in the Last Year: Never true Ran Out of Food in the Last Year: Never true Transportation Needs: No Transportation Needs (07/25/2024) PRAPARE - Transportation Lack of Transportation (Medical): No Lack of Transportation (Non-Medical): No Physical Activity: Inactive (07/25/2024) Exercise Vital Sign Days of Exercise per Week: 0 days Minutes of Exercise per Session: 0 min Stress: Stress Concern Present (07/25/2024) [employer] - Occupational Stress Questionnaire Feeling of Stress : To some extent Social Connections: Socially Isolated (07/25/2024) Social Connection and Isolation Panel [NHANES] Frequency of Communication with Friends and Family: Never Frequency of Social Gatherings with Friends and Family: Never Attends [employer]ism Services: Never Active Member of Clubs or Organizations: No Attends Club or Organization Meetings: Never Marital Status: Intimate Partner Violence: Not At Risk (07/25/2024) Humiliation, Afraid, Rape, and Kick questionnaire Fear of Current or Ex-Partner: No Emotionally Abused: No Physically Abused: No Sexually Abused: No Housing Stability: Low Risk (07/25/2024) Housing Stability Vital Sign Unable to Pay for Housing in the Last Year: No Number of Times Moved in the Last Year: 0 Homeless in the Last Year: No ROS: Pertinent +'s and -'s as stated in HPI, otherwise all other systems negative PHYSICAL EXAM: VITALS: BP 120/61 Pulse 67 Temp 36.5 ?C (97.7 ?F) (Temporal) Resp 18 Ht 6' 0.01 (1.829 m) Wt 215 lb 3.2 oz (97.6 kg) SpO2 95% BMI 29.18 kg/m? General: Alert, in no acute distress Head: Normocephalic, atraumatic Neck: supple, trachea is midline, no obvious masses Respiratory: no respiratory distress, normal effort, no audible wheezes Cardiovascular: regular pulse and no cyanosis Musculoskeletal: normal tone in all four extremities Skin: warm and dry Psych: normal mood and affect Abdomen: soft, non distended, non tender : b/l flank NTP, no suprapubic tenderness, conley intact draining clear yellow urine DATA: LABS: BMP: Lab Results Component Value Date GLUCOSE 92 07/25/2024 CALCIUM 7.9 (L) 07/25/2024 NA 130 (L) 07/25/2024 K 4.1 07/25/2024 CO2 14 (L) 07/25/2024 CL 105 07/25/2024 BUN 15 07/25/2024 CREATININE 1.01 07/25/2024 CBC: Lab Results Component Value Date WBC 8.5 07/25/2024 HGB 7.8 (L) 07/25/2024 HCT 24.6 (L) 07/25/2024 MCV 95.0 07/25/2024 PLT 212 07/25/2024 Urinalysis: Color, Urine Lt. Yellow Yellow Clarity, Urine Clear Clear pH, Urine 5.0 - 8.0 pH 7.0 Leukocytes, Urine Negative Jose Rafael/uL 75 Abnormal Nitrite, Urine Negative Negative Protein, Urine Negative mg/dL 70 Abnormal Glucose, Urine Normal (<70) mg/dL >1,000 Abnormal Bilirubin, Urine Negative mg/dL Negative Ketones, Urine Negative mg/dL Negative Urobilinogen, Urine Normal (0-1) mg/dL Normal Blood, Urine Negative mg/dL >1.0 Abnormal RBC, Urine 0 - 2 /HPF >100 Abnormal WBC, Urine 0 - 5 /HPF 26-50 Abnormal Squamous Epithelial, Urine 3 - 5 /HPF Negative Bacteria, Urine Negative /HPF Few Abnormal Mucus, Urine Negative /LPF Few Hyaline Casts, Urine Negative /LPF 3-5 Abnormal SPECIFIC GRAVITY OF URINE (NUMERIC) 1.005 - 1.030 1.022 Urine Culture: pending Blood Culture: pending RADIOLOGY: CT ABD/PEL WO 07/25: IMPRESSION: Small stone in each kidney. Small fat-containing umbilical hernia containing fluid. IMPRESSION: 64 y.o. male consulted for hematuria. Hx of YUMIKO 2/2 retention. Current conley in place for unknown initial amount PLAN: - No acute urological surgical intervention at this time - Cr 1.01 (1.67), trend - WBC 8.5 (11.7), trend - Scheduled flomax if tolerable - Goal of daily, soft bowel movements prior to removal of conley catheter. Bowel regimen per primary service. - UA + LE, RBC, WBC, few bacteria - Ucx/Bcx pending - Catheter draining clear yellow urine - Maintain conley catheter, recommend void trial prior to discharge. Please reach out to urology day prior to anticipated discharge to coordinate void trial - Recommend outpatient follow-up for cystoscopy and other workup for intermittent hematuria - Will set telephone encounter for office to coordinate Void trial instructions: Once conley in place and on scheduled Flomax for 72 hours Having regular bowel movements Ambulating at patient's baseline Once these milestones are all met, contact the on-call urology resident in the predictive maintenance specialist for void trial instructions - Continue to monitor labs and VS - All other cares per specialty teams Thank you for allowing me to participate in the care of your patient. Ernst Hall MD PGY-2 Urology IRON AND TIBC Collected: 07/26/2024 2:18 AM Status: F Source: [facility] TYPE CODE TESTS RESULT OUT OF RANGE REFERENCE UNITS LAB [id number] IRON, TOTAL 24 Low 49-181 ug/dL LAB [id number] IRON BINDING CAPACITY 226 Low 261-497 ug/dL LAB [id number] IRON SATURATION 11 Low 15-50 % Performed By: #### [id number] ## ## High Man: ROLA GARCIA ([id number]) [facility] ([facility]) [address] [place] [address] MAGNESIUM Collected: 2:18 AM Status: F Source: [facility] TYPE CODE TESTS RESULT OUT OF RANGE REFERENCE UNITS LAB [id number] MAGNESIUM 2.4 High 1.6-2.3 mg/dL Performed By: #### LAB17 [place] B113, [id number] #### High Man: ROLA GARCIA ([id number]) [facility] ([facility]) [address] [place] [address] PHOSPHORUS Collected: 2:18 AM Status: F Source: [facility] TYPE CODE TESTS RESULT OUT OF RANGE REFERENCE UNITS LAB [id number] PHOSPHORUS 4.1 2.5-4.5 mg/dL Performed By: #### LAB17, [place] B113, [id number] #### High Man: ROLA GARCIA ([id number]) [facility] ([facility]) [address] [place] [address] COMPREHENSIVE METABOLIC PANEL Collected: 07/26/2024 2 :18 AM Status: F Source: [facility] TYPE CODE TESTS RESULT OUT OF RANGE REFERENCE UNITS LAB [id number] SODIUM 136 135-145 mmol/L LAB [id number] POTASSIUM 4.0 3.5-5.1 mmol/L LAB [id number] CHLORIDE 104 98-107 mmol/L LAB [id number] CARBON DIOXIDE 24 22-30 mmol/L LAB 1672336 ANION GAP 8 3-13 mmol/L LAB [id number] UREA NITROGEN 18 9-20 mg/dL LAB [id number] CREATININE 1.45 High 0.66-1.25 mg/dL LAB [id number] GLUCOSE 108 High 70-100 mg/dL LAB [id number] CALCIUM 9.1 8.4-10.4 mg/dL LAB [id number] AST (SGOT) 18 15-46 U/L LAB [id number] ALT 5 0-49 U/L LAB [id number] ALKALINE PHOSPHATASE 90 38-126 U/L LAB [id number] ALBUMIN 3.5 3.5-5.0 g/dL LAB [id number] BILIRUBIN, TOTAL 0.6 0.2-1.3 mg/dL LAB [id number] TOTAL PROTEIN 6.0 Low 6.3-8.2 g/dL LAB [id number] GLOMERULAR FILTRATION RATE ML/MIN/1.73 SQ M.PREDICTED 53.1 Low >60.0 mL/min/1. 73m*2 Result Comment: Calculation based on the Chronic Kidney Disease Epidemiology Collaboration (CKD-EPI) equation refit without adjustment for race Performed By: #### LAB17, LA B113, [id number] #### High Man: ROLA GARCIA ([phone]) [facility] ([facility]) [address] [place] [address] CBC WITH AUTO DIFFERENTIAL Collected: 07/26/2024 2:18 AM Status: F Source: [facility] TYPE CODE TESTS RESULT OUT OF RANGE REFERENCE UNITS LAB [id number] WBC 10.9 High 3.6-10.7 10*3/uL LAB [id number] RBC 3.42 Low 4.40-5.90 10*6/uL LAB [id number] HEMOGLOBIN 10.2 Low 13.0-18.0 g/dL LAB [id number] HEMATOCRIT 32.5 Low 40.0-52.0 % LAB [id number] MCV 95.0 77.0-99.0 fL LAB [id number] MCH 29.8 26.0-34.0 pg LAB [id number] MCHC 31.4 30.5-36.0 % LAB [id number] RDW 13.2 11.5-15.0 % LAB [id number] PLATELET COUNT 285 140-440 10*3/uL LAB [id number] MPV 10.0 9.0-12.7 fL LAB 254 NRBC 0.0 0.0-2.0 /100 WBCs LAB [id number] NEUTROPHILS RELATIVE 59.8 38.0-82.0 % LAB 1493166 LYMPHOCYTES RELATIVE 29.1 15.0-45.0 % LAB 8885807 MONOCYTES RELATIVE 9.0 5.0-13.0 % LAB 3503856 EOSINOPHILS RELATIVE 1.1 0.0-6.0 % LAB 7646238 BASOPHILS RELATIVE 0.7 0.0-2.0 % LAB 0419602 IMMATURE GRANS % 0.3 0.0-2.0 % LAB 9063399 NEUTROPHILS ABSOLUTE 6.5 1.8-7.5 10*3/uL LAB 8033165 LYMPHOCYTES ABSOLUTE 3.2 1.0-4.3 10*3/uL LAB 8687007 MONOCYTES ABSOLUTE 1.0 High 0.0-0.9 10*3/uL LAB 7146553 EOSINOPHILS ABSOLUTE 0.1 0.0-0.5 10*3/uL LAB 1707923 BASOPHILS ABSOLUTE 0.1 0.0-0.2 10*3/uL LAB 062724 IMMATURE GRANS ABSOLUTE 0.0 <0.1 10*3/uL Performed By: #### [id number] # ### High Man: ROLA GARCIA ([id number]) [address] VANCOMYCIN, AUC TIMED DOSING Collected: 07/26/2024 2: 18 AM Status: F [facility] Order Comment: Please draw r andom level at least >2 hours after the end of the last vancomycin infusion, or 30-minutes before next infusion. TYPE CODE TESTS RESULT OUT OF RANGE REFERENCE UNITS LAB [id number] VANCOMYCIN, AUC 7.8 Low 15.0-20.0 ug/mL Performed By: #### [id number] ### # High Man: ROLA GARCIA ([id number]) [facility] ([address] IDN Observed: 07/25/2024 11:57 PM Status: COMPLETED [facility] The patient is Moderately St able - Low risk of patient condition declining or worsening The patient's goals for the shift include Safety The clinical goals for the shift include Safety ED NURSING NOTE Observed: 07/25/2024 10:58 PM Status: COMPLETED [facility] Patient transported with RN to 5W. A&Ox4, stating 96% on RA. Lisa Pelayo RN 07/25/24 0032 ED NURSING NOTE Observed: 07/25/2024 10:31 PM Status: COMPLETED Source: [facility] Preventative foam border filipe ssing placed on sacrum and heels. Patient agreeable to being turned with wedges. Declined gown. Lisa Pelayo RN 07/25/242231 ED NURSING NOTE Observed: 07/25/2024 10:08 PM Status: COMPLETED Source: [facility] Admitting at bedside. Kamilla Ratliff RN 07/25/242208 ED NURSING NOTE Observed: 07/25/2024 9:00 PM Status: COMPLETED Source: [facility] Patient cot [facility]. Lisa Pelayo RN 07/25/242100 ED NURSING NOTE Observed: 07/25/2024 8:00 PM Status: COMPLETED Source: [facility] Pt declined wedges when offe red. Lisa Pelayo RN 07/25/242205 ED NURSING NOTE Observed: 07/25/2024 7:29 PM Status: COMPLETED Source: [facility] Report from JASON Hollingsworth. Kamilla Ratliff RN 07/25/241928 RETICULOCYTES Collected: 07/25/2024 6:56 PM Status: F Source: [facility] TYPE CODE TESTS RESULT OUT OF RANGE REFERENCE UNITS LAB [id number] RETICULOCYTES/10 0 ERYTHROCYTES IN BLOOD BY AUTOMATED COUNT 1.40 % Result Comment: [place] < 5% Adults 0.4 - 2.0% Performed By: #### [id number], L [id number], [id number] #### High Man: ROLA GARCIA ([id number]) [address] SEDIMENTATION RATE, AUTOMATED Collected: 07/25/2024 6 :56 PM Status: F Source: [facility] TYPE CODE TESTS RESULT OUT OF RANGE REFERENCE UNITS LAB [id number] SEDIMENTATION RATE, ERYTHROCYTE <1 0-10 mm/hr Performed By: #### [id number], L [id number], [id number] #### High Man: ROLA GARCIA ([id number]) [facility]) [address] [place] [address] CBC WITH AUTO DIFFERENTIAL Collected: 07/25/2024 6:56 PM Status: F Source: [facility] TYPE CODE TESTS RESULT OUT OF RANGE REFERENCE UNITS LAB [id number] WBC 8.5 3.6-10.7 10*3/uL LAB 2860701 RBC 2.59 Low 4.40-5.90 10*6/uL LAB 5587563 HEMOGLOBIN 7.8 Low 13.0-18.0 g/dL LAB 5919215 HEMATOCRIT 24.6 Low 40.0-52.0 % LAB 3084682 MCV 95.0 77.0-99.0 fL LAB 1354320 MCH 30.1 26.0-34.0 pg LAB 0304040 MCHC 31.7 30.5-36.0 % LAB 3434596 RDW 13.2 11.5-15.0 % LAB 4697577 PLATELET COUNT 212 140-440 10*3/uL LAB 3142105 MPV 9.6 9.0-12.7 fL LAB 254 NRBC 0.0 0.0-2.0 /100 WBCs LAB 8960956 NEUTROPHILS RELATIVE 68.4 38.0-82.0 % LAB 3134361 LYMPHOCYTES RELATIVE 21.3 15.0-45.0 % LAB 8766088 MONOCYTES RELATIVE 8.7 5.0-13.0 % LAB 2053605 EOSINOPHILS RELATIVE 0.6 0.0-6.0 % LAB 6100436 BASOPHILS RELATIVE 0.6 0.0-2.0 % LAB 9992986 IMMATURE GRANS % 0.4 0.0-2.0 % LAB 7581257 NEUTROPHILS ABSOLUTE 5.8 1.8-7.5 10*3/uL LAB 4950954 LYMPHOCYTES ABSOLUTE 1.8 1.0-4.3 10*3/uL LAB 6986678 MONOCYTES ABSOLUTE 0.7 0.0-0.9 10*3/uL LAB 9627316 EOSINOPHILS ABSOLUTE 0.1 0.0-0.5 10*3/uL LAB 9090495 BASOPHILS ABSOLUTE 0.1 0.0-0.2 10*3/uL LAB 482891 IMMATURE GRANS ABSOLUTE 0.0 <0.1 10*3/uL LAB 0019539 IPF 1 Performed By: #### [id number], L [id number], [id number] #### High Man: ROLA GARCIA ([id number]) [facility] ([facility]) [address] [place] [address] MAGNESIUM Collected: 4 6:56 PM Status: F Source: [facility] TYPE CODE TESTS RESULT OUT OF RANGE REFERENCE UNITS LAB 6018868 MAGNESIUM 1.8 1.6-2.3 mg/dL Performed By: #### [id number], L AB103, LAB17 #### High Man: ROLA GARCIA ([id number]) [facility] ([facility] [address] [place] [address] PHOSPHORUS Collected: 6:56 PM Status: F Source: [facility] TYPE CODE TESTS RESULT OUT OF RANGE REFERENCE UNITS LAB 1951630 PHOSPHORUS 2.7 2.5-4.5 mg/dL Performed By: #### [id number], L AB103, LAB17 #### High Man: ROLA GARCIA ([id number]) [facility] ([facility]) [address] [place] [address] COMPREHENSIVE METABOLIC PANEL Collected: 07/25/2024 6 :56 PM Status: F Source: [facility] TYPE CODE TESTS RESULT OUT OF RANGE REFERENCE UNITS LAB 0068332 SODIUM 130 Low 135-145 mmol/L LAB 5814913 POTASSIUM 4.1 3.5-5.1 mmol/L LAB 1344037 CHLORIDE 105 98-107 mmol/L LAB 0425627 CARBON DIOXIDE 14 Low 22-30 mmol/L LAB 6130941 ANION GAP 11 3-13 mmol/L LAB 8416014 UREA NITROGEN 15 9-20 mg/dL LAB 1223894 CREATININE 1.01 0.66-1.25 mg/dL LAB 6731500 GLUCOSE 92 70-100 mg/dL LAB 0299208 CALCIUM 7.9 Low 8.4-10.4 mg/dL LAB 4168702 AST (SGOT) 12 Low 15-46 U/L LAB 4047946 ALT 8 0-49 U/L LAB 2168725 ALKALINE PHOSPHATASE 59 38-126 U/L LAB 7459131 ALBUMIN 2.1 Low 3.5-5.0 g/dL LAB 2436396 BILIRUBIN, TOTAL 0.3 0.2-1.3 mg/dL LAB 9622998 TOTAL PROTEIN 4.1 Low 6.3-8.2 g/dL LAB 8227059 GLOMERULAR FILTRATION RATE ML/MIN/1.73 SQ M.PREDICTED 82.0 >60.0 mL/min/1. 73m*2 Result Comment: Calculation based on the Chronic Kidney Disease Epidemiology Collaboration (CKD-EPI) equation refit without adjustment for race Performed By: #### [id number], L AB103, LAB17 #### High Man: ROLA GARCIA ([id number]) [facility] ([facility]) [address] [place] [address] CT ABDOMEN PELVIS WO IV CONTRAST Observed: 07/25/2024 6:46 PM Status: F Source: [facility] 1960 [id number] Exam Date/Time: 07/25/2024 18:43 Procedure: CT ABDOMEN PELVIS WO IV CONTRAST Ordering Provider: GUILLEN MICHAEL Reason For Exam: Flank pain, kidney stone suspected CT abdomen and pelvis without contrast History: Flank pain Technique: 3 mm axial images from the lung bases to just below the pubic symphysis and without intravenous contrast Dose reduction was employed with automated exposure control. Small stone in each kidney. No hydronephrosis. The liver, gallbladder, spleen, pancreas, adrenals are normal. No bowel inflammation or obstruction. The appendix is visualized and is normal. Small fat-containing umbilical hernia containing fluid. Conley catheter in the bladder. IMPRESSION: Small stone in each kidney. Small fat-containing umbilical hernia containing fluid. Report Dictated on Electronically Signed By: Deepak Pennington MD Electronically Signed Date/Time: 07/25/2024 6:46 PM EDT ECG 12-LEAD Observed: 07/25/2024 6:42 PM Status: F Source: [facility] IMPRESSION: Sinus or ectopic atrial rhythm Left bundle branch block No ST segment elevations No old ECG Electronically Signed On 07-25-2024 18:42:05 EDT by Elroy Vega HISTORY AND PHYSICAL NOTE Observed: 07/06 6:21 PM Status: COMPLETED Source: [facility] Internal Medicine: Med Team Initial History and Physical Nick Arora : 1960(64 y.o.) Date: July 25, 2024 TEAM: C Attending: Dr. Bosch Subjective: Chief Complaint: blood in his urine HPI Nick Arora is a 64 y.o. male with PMHx of recent YUMIKO 2/2 urinary retention, and total L knee replacement (06/22/24) seen at [facility], heart failure with recovered ejection fraction currently is (54%), bro-mcmxwau-pqthloxmr T2DM, BPH, kidney stones w/stent (5 years ago), and Parkinson's Dz w/dyskinesia that presented to [facility] on 07/25/2024 from home. Pt w/hematuria for past three days, associated with dysuria. Pt daughter picked him up today to bring him to [facility], however pt was weak and nearly fell climbing into her truck. He was helped into the truck by a bystander. She also reports pt has had some confusion for a couple of days. He does note he has had hematuria in the past and was found to have multiple renal stones. He is underwent lithotripsy and stent placement in the past. He does not currently follow with a urologist. Pt seen at bedside w/daughter present. Pt denies fever, chest pain, SOB, abd pain, nausea, and vomiting. He endorsed mild flank pain, 2 days of constipation, hematuria, and some dysuria. He denies tobacco, EtOH, and drug use. In the ED, pt is hemodynamically stable. Labs were significant for Lactic acid 4.4, BUN 25, Cr 1.67, GFR 44.9, glucose 188, WBC 11.7, Hgb 11, and Hct 34. His urine was positive for bacteria, RBC>100, WBC 26-50, glucose >1000, protein 70, and leukocyte esterase 75. Blood and urine Cx pending. Pt started on vancomycin and cefepime, and given 500 ml of normal saline. Agree with above Review of Systems Constitutional: Negative for fever and unexpected weight change. Respiratory: Negative for cough and shortness of breath. Cardiovascular: Negative for chest pain and palpitations. Gastrointestinal: Positive for constipation. Negative for abdominal distention, abdominal pain and diarrhea. Genitourinary: Positive for dysuria, flank pain and hematuria. Skin: Negative for color change. Neurological: Positive for weakness. Negative for speech difficulty. Psychiatric/Behavioral: Negative for decreased concentration and dysphoric mood. Past Medical History: Diagnosis Date BPH (benign prostatic hyperplasia) Chronic combined systolic and diastolic heart failure (HCC) HTN (hypertension) Mild depression Parkinson disease with dyskinesia ([facility]) T2DM (type 2 diabetes mellitus) ([facility]) No past surgical history on file. No family history on file. Social History Tobacco Use Smoking Status Never Smokeless Tobacco Never Social History Substance and Sexual Activity Alcohol Use Not Currently Social History Substance and Sexual Activity Drug Use Not Currently Allergies Allergen Reactions Hydrocodone-Acetaminophen Tramadol Prior to Admission medications Not on File Objective: Vitals: 07/25/24 1246 07/25/24 1443 07/25/24 1715 07/25/24 1716 BP: 109/60 125/64 124/71 BP Location: Left arm Patient Position: Lying Lying Lying Pulse: 65 71 65 Resp: 18 18 20 Temp: 37.2 ?C (98.9 ?F) TempSrc: Oral SpO2: 95% 96% 96% Weight: 225 lb (102 kg) Height: 6' (1.829 m) Physical Exam Constitutional: General: He is not in acute distress. Appearance: He is not ill-appearing or diaphoretic. HENT: Head: Normocephalic and atraumatic. Nose: Nose normal. Eyes: Conjunctiva/sclera: Conjunctivae normal. Cardiovascular: Rate and Rhythm: Normal rate and regular rhythm. Pulmonary: Effort: Pulmonary effort is normal. Abdominal: Palpations: Abdomen is soft. Tenderness: There is no abdominal tenderness. There is no right CVA tenderness, left CVA tenderness or guarding. Musculoskeletal: Right lower leg: Edema present. Left lower leg: Edema present. Skin: General: Skin is warm. Neurological: General: No focal deficit present. Mental Status: He is alert. Psychiatric: Mood and Affect: Mood normal. Behavior: Behavior normal. Thought Content: Thought content normal. [facility] within last 24 hours Auto WBC Date Value Ref Range Status 07/25/2024 11.7 (H) 3.6 - 10.7 10*3/uL Final Hemoglobin Date Value Ref Range Status 07/25/2024 11.0 (L) 13.0 - 18.0 g/dL Final Hematocrit Date Value Ref Range Status 07/25/2024 34.0 (L) 40.0 - 52.0 % Final Platelets Date Value Ref Range Status 07/25/2024 312 140 - 440 10*3/uL Final MCV Date Value Ref Range Status 07/25/2024 94.2 77.0 - 99.0 fL Final SODIUM Date Value Ref Range Status 07/25/2024 135 135 - 145 mmol/L Final POTASSIUM Date Value Ref Range Status 07/25/2024 4.7 3.5 - 5.1 mmol/L Final CHLORIDE Date Value Ref Range Status 07/25/2024 100 98 - 107 mmol/L Final CARBON DIOXIDE Date Value Ref Range Status 07/25/2024 23 22 - 30 mmol/L Final UREA NITROGEN Date Value Ref Range Status 07/25/2024 25 (H) 9 - 20 mg/dL Final CREATININE Date Value Ref Range Status 07/25/2024 1.67 (H) 0.66 - 1.25 mg/dL Final GLUCOSE Date Value Ref Range Status 07/25/2024 188 (H) 70 - 100 mg/dL Final CALCIUM Date Value Ref Range Status 07/25/2024 9.4 8.4 - 10.4 mg/dL Final AST (SGOT) Date Value Ref Range Status 07/25/2024 22 15 - 46 U/L Final ALT Date Value Ref Range Status 07/25/2024 15 0 - 49 U/L Final TOTAL PROTEIN Date Value Ref Range Status 07/25/2024 6.7 6.3 - 8.2 g/dL Final BILIRUBIN, TOTAL Date Value Ref Range Status 07/25/2024 0.7 0.2 - 1.3 mg/dL Final ALKALINE PHOSPHATASE Date Value Ref Range Status 07/25/2024 84 38 - 126 U/L Final No results found for: CKTOTAL, CKMB, TROPONINI No results found for: PROCAL, CHOL, TRIG, HDL, TSH, VITD25, HGBA1C, VANCOTROUGH Assessment and Plan: Principal Problem: Septic shock (HCC) Septic shock secondary to UTI Lactic acidosis Leukocytosis Hematuria -Will obtain CT abdomen pelvis without contrast to rule out nephrolithiasis given his history of multiple renal stones. -Started on broad-spectrum antibiotics with vancomycin and cefepime, urine and blood cultures pending. -give additional 1L bolus -Has had multiple recent admissions for urinary retention and coud? catheter placed on arrival to the ED. -If CT abdomen pelvis negative for nephrolithiasis will consult urology for consideration of cystoscopy. -Check daily CBC, CMP, mag, Phos Agree with above Lactic acid quickly normalized and patient remained HD stable overnight Noted the drop in hemoglobin last night from 11 to 7.8 and then back to 10.2. Given that the WBC dropped and then went back up, SCr dropped and then went back up, I suspect this was not his blood sample or there was some other error to account for this. Will recommend that the blood sample on 07/25 at 18:56 should be disregarded entirely. Urology has seen patient and recommend outpatient cystoscopy. Will keep patient here until cultures return. Ok to stop vancomycin. Status post total L knee replacement L knee pain -His left knee with small effusion and warm on exam will obtain x-ray to rule out possible source of sepsis. -Check ESR and CRP. -Check bilateral lower extremity duplex given trace edema and recent surgery. Agree with above YUMIKO on CKD II -Will check FE urea given he had been on hydrochlorothiazide prior to admission -Symptoms may be secondary to prerenal azotemia due to sepsis versus acute urinary retention. 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 -He appears euvolemic on exam and will hold off on CT at this time. Agree with above Parkinson's with dyskinesia -I will continue home Sinemet Anxiety/depression -Continue Celexa BPH -Hold flomax given risk of hypotension with septic shock Cft-zixpqkp-kpgfrtwtq type 2 diabetes -Check hemoglobin A1c and will start low-dose sliding scale -Hypoglycemia protocol in place Normocytic anemia -Will check iron studies -Check daily CBC - Goals of Care: FULL CODE - DVT Prophylaxis: SCD's or Sequential Compression Device - GI Prophylaxis: Protonix daily - Diet: General - BMI Classification: Body mass index is 30.52 kg/m?. Obesity (BMI >30) - Disposition: Admit to Telemetry. - Given the signs and symptoms associated with his primary diagnosis in the setting of his comorbid conditions, he is expected to require >48 hrs of hospital care (i.e. inpatient level care). On 07/26/24 I personally examined the patient and reviewed the case with the resident and or med student. I have personally taken a history, examined the patient, and performed the associated medical decision making activities. I have reviewed & verified the attested documentation. Unless otherwise noted below, this documentation reflects the history, physical exam, and medical decision making that I performed myself. I agree with the current plan of care including the workup, evaluation, management, and diagnosis. Care plan has been discussed. The above documentation has been reviewed and edited as needed to reflect the findings of my evaluation. Attending comments are in bold. 1. Complexity of problems addressed: Sepsis 2. Data Reviewed or Ordered: A. Reviewed: CBC, BMP, and CT abdomen A. Ordered: B. I personally discussed this patient's case with: Inpatient pharmacist regarding initial medication reconciliation ULT Observed: 07/25/2024 6:20 PM Status: COMPLETED Source: [facility] Pharmacy Managed Vancomycin Dosing Service Consult Note Consult Date: 07/25/24 Patient Name: Nick Arora Allergies: Hydrocodone-acetaminophen and Tramadol Age: 64 y.o. Sex: male Estimated body mass index is 30.52 kg/m? as calculated from the following: Height as of this encounter: 1.829 m (6'). Weight as of this encounter: 102 kg (225 lb). DW: 102 kg Lab Results Component Value Date CREATININE 1.67 (H) 07/25/2024 BUN 25 (H) 07/25/2024 WBC 11.7 (H) 07/25/2024 Calculated CrCl: 62 mL/min (Cockcroft-Gault) Consulted By: Dr. Anil Julien Infectious Diagnosis: sepsis (AUC Goal 400-600 mg/L*hr) Random Vancomycin Level Due: with AM labs on 07/26 and 07/27 Antimicrobials: Vancomycin, cefepime 07/25/24+ Assessment/Plan: Doses, serum creatinine, and vancomycin levels interfaced automatically to [employer] and data has been analyzed and interpreted. Start Vancomycin 1250 mg given once in ED followed by vancomycin 1500 mg every 24 hours based on patient age, weight, renal function, and infectious diagnosis (14.7 mg/kg). Predicted AUC = 512 mg/L*hr (goal 400-600 mg/L*hr) PAUC = 80% (probability that AUC is >400 mg/L*hr) Pconc = 15% (probability that Ctrough is above 20 mcg/mL (toxicity)) Will assess random level on both 07/26 (to assess 1250 mg dose in the setting of SCr 1.67) and 07/27 with AM labs and adjust as appropriate. Trend serum creatinine. Orders placed. Thank you for this consult. Please secure text or call with questions. DATE: 07/25/24 TIME: 6:20 PM Vonnie Holguin [facility] Clinical Pharmacist Available via Secure Chat ED NURSING NOTE Observed: 07/25/2024 6:11 PM Status: COMPLETED Source: [facility] Report to JASON Hollingsworth. Kamilla Ratliff RN 07/25/24 1811 ED NURSING NOTE Observed: 07/25/2024 6:04 PM Status: COMPLETED Source: [facility] Meal tray at bedside. Kamilla Ratliff RN 07/25/24 1804 LACTIC ACID WITH REFLEX Collected: 07/06 5:37 PM Status: F Source: [facility] TYPE CODE TESTS RESULT OUT OF RANGE REFERENCE UNITS LAB [id number] LACTIC ACID 1.1 0.7-2.0 mmol/L Performed By: #### [id number] #### High Man: ROLA GARCIA ([id number]) [address] CREATININE, URINE, RANDOM Collected: 07/25/2024 5:33 PM Status: F Source: [facility] TYPE CODE TESTS RESULT OUT OF RANGE REFERENCE UNITS LAB 20 CREATININE, URINE 75.8 No Range mg/dL Performed By: #### [id number], L AB748 #### High Man: ROLA GARCIA ([id number]) [address] UREA NITROGEN, URINE Collected: 07/25/2024 5:33 PM S tatus: F Source: [facility] TYPE CODE TESTS RESULT OUT OF RANGE REFERENCE UNITS LAB [id number] UREA NITROGEN, URINE 403 No Range mg/dL Performed By: #### [id number], L AB748 #### High Man: ROLA GARCIA ([id number]) [facility] ([facility]) [address] [place] [address] ED NURSING NOTE Observed: 07/25/2024 5:21 PM Status: COMPLETED Source: [facility] Patient and family provided menu and hospital phone to order dinner tray. Kamilla Ratliff RN 07/25/24 1722 ED NURSING NOTE Observed: 07/25/2024 5:02 PM Status: COMPLETED Source: [facility] Report from JASON Hollingsworth. Kamilla Ratliff RN 07/25/24 1702 BLOOD CULTURE Observed: 07/25/2024 4:13 PM Status: F Source: [facility] BLOOD CULTURE Reference No growth at 5 days ORDER COMMENTS: Blood Collection Site: Left Arm [ S = SUSCEPTIBLE R = RESISTANT I = INTERMEDIATE S-DD = Susceptible-dose dependent NS = Non-susceptible NO = No Interpretation ] Performed By: #### [id number] ## ## High Man: ROLA GARCIA ([id number]) [facility]) [address] [place] [address] BLOOD CULTURE Observed: 07/25/2024 4:13 PM Status: F Source: [facility] BLOOD CULTURE Reference No growth at 5 days ORDER COMMENTS: Blood Collection Site: Left Arm [ S = SUSCEPTIBLE R = RESISTANT I = INTERMEDIATE S-DD = Susceptible-dose dependent NS = Non-susceptible NO = No Interpretation ] Performed By: #### [id number] ## ## High Man: ROLA GARCIA ([id number]) [facility]) [address] [place] [address] ED NURSING NOTE Observed: 07/25/2024 3:49 PM Status: COMPLETED Source: [facility] Lab called with lactic acid 4.4, same reported to Dr. Guillen and Dr. Escalante via secure chat Jade Sosa RN 07/25/24 8695 ED NURSING NOTE Observed: 07/25/2024 3:38 PM Status: COMPLETED Source: [facility] Coude catheter placed in pt per Dr. Escalante for urinary retention. Urine was clear and yellow with no blood or clots. Urine sample sent off to lab. Edel Suresh RN 07/25/24 1538 URINE CULTURE Observed: 07/25/2024 3:31 PM Status: F Source: [facility] URINE CULTURE (A) Reference SERRATIA MARCESCENS >100,000 CFU/mL Serratia marcescens (A) This organism possesses an ampC beta-lactamase. For serious infections outside of the urinary tract, third generation cephalosporins may not be effective, even if test results indicate the organism is susceptible. Organism: SERRATIA MARCESCENS Antibiotic ARACELI Interpretation Status Amoxicillin / Clavulanate R F Aztreonam <=1 ug/ml S F Cefazolin >=64 ug/ml R F Cefepime <=1 ug/ml S F Ceftriaxone <=1 ug/ml S F Ciprofloxacin <=0.25 ug/ml S F Gentamicin <=1 ug/ml S F Meropenem <=0.25 ug/ml S F Nitrofurantoin 256 ug/ml R F Trimethoprim / Sulfamethoxazole <=20 ug/ml S F Organism: SERRATIA MARCESCENS Antibiotic ARACELI Interpretation Status Piperacillin / Tazobactam 2 ug/ml S F [ S = SUSCEPTIBLE R = RESISTANT I = INTERMEDIATE S-DD = Susceptible-dose dependent NS = Non-susceptible NO = No Interpretation ] Performed By: #### [id number] ## ## High Man: ROLA GARCIA ([id number]) [facility] ([address] COMPLETE URINALYSIS Collected: 07/25/2024 3:[address] [facility]: F Source: [facility] TYPE CODE TESTS RESULT OUT OF RANGE REFERENCE UNITS LAB [id number] COLOR OF URINE Yellow Lt. Yellow LAB 9683742 CLARITY OF URINE Clear Clear LAB 4008558 PH OF URINE 7.0 5.0-8.0 pH LAB 1637563 LEUKOCYTE ESTERASE PRESENCE IN URINE BY TEST STRIP 75 Abnormal Negative Jose Rafael/uL LAB 6926983 NITRITE PRESENCE IN URINE Negative Negative LAB 5016147 PROTEIN (MG/DL) IN URINE BY TEST STRIP 70 Abnormal Negative mg/dL LAB 6822124 GLUCOSE (MG/DL) IN URINE >1,000 Abnormal Normal (<70) mg/dL LAB 9002958 BILIRUBIN, TOTAL PRESENCE IN URINE Negative Negative mg/dL LAB 548 KETONES (MG/DL) IN URINE Negative Negative mg/dL LAB 19 UROBILINOGEN (MG/DL) IN URINE Normal Normal (0-1) mg/dL LAB 549 HEMOGLOBIN PRESENCE IN URINE >1.0 Abnormal Negative mg/dL LAB 4496364 RBC (#/HPF) IN URINE SEDIMENT >100 Abnormal 0-2 /HPF LAB 8768502 WBC (LEUKOCYTE) (#/HPF) IN URINE SEDIMENT 26-50 Abnormal 0-5 /HPF LAB [id number] SQUAMOUS EPITHELIAL CELLS (#/HPF) IN URINE SEDIMENT Negative 3-5 /HPF LAB [id number] BACTERIA (#/HPF) IN URINE Few Abnormal Negative /HPF LAB 194 MUCUS (#/LPF) IN URINE SEDIMENT Few Negative /LPF LAB 70 HYALINE CASTS (#/LPF) IN URINE SEDIMENT BY MICROSCOPY 3-5 Abnormal Negative /LPF LAB 1199 SPECIFIC GRAVITY OF URINE (NUMERIC) 1.022 1.005-1.030 Performed By: #### [id number] ## ## High Man: ROLA GARCIA ([id number]) [facility] ([facility]) [address] [place] [address] ED NURSING NOTE Observed: 07/25/2024 3:18 PM Status: COMPLETED Source: [facility] 225 mLs of urine in the blad lloyd. Dr. Escalante notified about result. Edel Suresh, RN 07/25/24 1518 CBC WITH AUTO DIFFERENTIAL Collected: 07/25/2024 2:51 PM Status: F Source: [facility] TYPE CODE TESTS RESULT OUT OF RANGE REFERENCE UNITS LAB [id number] WBC 11.7 High 3.6-10.7 10*3/uL LAB 5199979 RBC 3.61 Low 4.40-5.90 10*6/uL LAB 7402936 HEMOGLOBIN 11.0 Low 13.0-18.0 g/dL LAB 7464817 HEMATOCRIT 34.0 Low 40.0-52.0 % LAB 5595763 MCV 94.2 77.0-99.0 fL LAB 3248974 MCH 30.5 26.0-34.0 pg LAB 2655060 MCHC 32.4 30.5-36.0 % LAB 6272718 RDW 13.1 11.5-15.0 % LAB 7966232 PLATELET COUNT 312 140-440 10*3/uL LAB 5646469 MPV 10.1 9.0-12.7 fL LAB 254 NRBC 0.0 0.0-2.0 /100 WBCs LAB 5237410 NEUTROPHILS RELATIVE 83.6 High 38.0-82.0 % LAB 7612385 LYMPHOCYTES RELATIVE 9.2 Low 15.0-45.0 % LAB 0416419 MONOCYTES RELATIVE 6.2 5.0-13.0 % LAB 4138022 EOSINOPHILS RELATIVE 0.2 0.0-6.0 % LAB 0299688 BASOPHILS RELATIVE 0.4 0.0-2.0 % LAB 9299244 IMMATURE GRANS % 0.4 0.0-2.0 % LAB 1936407 NEUTROPHILS ABSOLUTE 9.8 High 1.8-7.5 10*3/uL LAB 0809730 LYMPHOCYTES ABSOLUTE 1.1 1.0-4.3 10*3/uL LAB 5026406 MONOCYTES ABSOLUTE 0.7 0.0-0.9 10*3/uL LAB 5772539 EOSINOPHILS ABSOLUTE 0.0 0.0-0.5 10*3/uL LAB 6318849 BASOPHILS ABSOLUTE 0.1 0.0-0.2 10*3/uL LAB 551020 IMMATURE GRANS ABSOLUTE 0.1 High <0.1 10*3/uL Performed By: #### [id number] # ### High Man: ROLA GARCIA ([id number]) [address] LACTIC ACID WITH REFLEX Collected: 07/06 2:51 PM Status: F Source: [facility] TYPE CODE TESTS RESULT OUT OF RANGE REFERENCE UNITS LAB 5128364 LACTIC ACID 4.4 High Alert 0.7-2.0 mmol/L Performed By: #### [id number] #### High Man: ROLA GARCIA ([id number]) [address] PROCALCITONIN TEST Collected: 07/25/2024 2:51 PM Sta tus: F Source: [facility] TYPE CODE TESTS RESULT OUT OF RANGE REFERENCE UNITS LAB 1342 PROCALCITONIN 0.11 High 0.00-0.09 ng/mL Result Comment: ORDER COMMEN TS: PCT <0.50 = Low risk of severe sepsis and/or septic shock. PCT >2.00 = High risk of severe sepsis and/or septic shock. Performed By: #### [id number] #### High Man: ROLA GARCIA ([id number]) [facility]) [address] [place] [address] BASIC METABOLIC PANEL Collected: 2023 2:51 PM Status: F Source: [facility] TYPE CODE TESTS RESULT OUT OF RANGE REFERENCE UNITS LAB 5868448 SODIUM 135 135-145 mmol/L LAB 0337879 POTASSIUM 4.7 3.5-5.1 mmol/L LAB 7467553 CHLORIDE 100 98-107 mmol/L LAB 4104853 CARBON DIOXIDE 23 22-30 mmol/L LAB 0510300 UREA NITROGEN 25 High 9-20 mg/dL LAB 0361653 CREATININE 1.67 High 0.66-1.25 mg/dL LAB 0405098 GLUCOSE 188 High 70-100 mg/dL LAB 3702714 CALCIUM 9.4 8.4-10.4 mg/dL LAB 8210776 ANION GAP 12 3-13 mmol/L LAB 6964816 GLOMERULAR FILTRATION RATE ML/MIN/1.73 SQ M.PREDICTED 44.9 Low >60.0 mL/min/1. 73m*2 Result Comment: Calculation based on the Chronic Kidney Disease Epidemiology Collaboration (CKD-EPI) equation refit without adjustment for race Performed By: #### LAB15, LA B149, LAB68, LAB20 #### High Man: ROLA GARCIA ([id number]) [address] HEPATIC FUNCTION PANEL Collected: 07/25/2024 2:51 PM Status: F Source: [facility] TYPE CODE TESTS RESULT OUT OF RANGE REFERENCE UNITS LAB 9948680 BILIRUBIN, TOTAL 0.7 0.2-1.3 mg/dL LAB 9927422 BILIRUBIN, DIRECT 0.0 0.0-0.3 mg/dL LAB 7060340 ALKALINE PHOSPHATASE 84 38-126 U/L LAB 2814484 AST (SGOT) 22 15-46 U/L LAB 2622045 ALT 15 0-49 U/L LAB 9403894 ALBUMIN 4.0 3.5-5.0 g/dL LAB 5989640 TOTAL PROTEIN 6.7 6.3-8.2 g/dL Performed By: #### LAB15, LA B149, LAB68, LAB20 #### High Man: ROLA GARCIA ([id number]) [facility] ([facility]) [address] [place] [address] FERRITIN Collected: 2:51 PM Status: F Source: [facility] TYPE CODE TESTS RESULT OUT OF RANGE REFERENCE UNITS LAB 8946278 FERRITIN 198 18-464 ng/mL Performed By: #### LAB15, LA B149, LAB68, LAB20 #### High Man: ROLA GARCIA ([id number]) [facility] ([facility]) [address] [place] [address] C-REACTIVE PROTEIN Collected: 07/25/2024 2:51 PM Sta tus: F Source: [facility] TYPE CODE TESTS RESULT OUT OF RANGE REFERENCE UNITS LAB 5019512 C REACTIVE PROTEIN 24.1 High <10.0 mg/L Performed By: #### LAB15, LA B149, LAB68, LAB20 #### High Man: ROLA GARCIA ([id number]) [facility] ([facility]) [address] [place] [address] HEMOGLOBIN A1C Collected: 07/25/2024 2:51 PM Status: F Source: [facility] TYPE CODE TESTS RESULT OUT OF RANGE REFERENCE UNITS LAB 0901219 HEMOGLOBIN A1C 6.1 High <5.7 % Result Comment: Normal less than 5.7% Prediabetes 5.7% to 6.4% Diabetes 6.5% or higher --HgbA1C levels may not be accurate in patients who have renal disease, received recent blood transfusions, are anemic, or who have dyshemoglobinemia. LAB 3749393 ESTIMATED AVERAGE GLUCOSE 128 mg/dL Performed By: #### LAB90 ### # High Man: ROLA GARCIA ([id number]) [facility] ([facility]) [address] [place] [address] ED NURSING NOTE Observed: 07/25/2024 2:02 PM Status: COMPLETED Source: [facility] Pt tried to urinate into uri nal but was un able to go. Edel Suresh RN 07/25/24 1402 ED PROVIDER NOTE Observed: 07/25/2024 12:25 PM Status: COMPLETED Source: [facility] Emergency Department [facility] EM[facility]GENCY DEPT Patient: Nick Arora : 1960 Date of Evaluation: 07/25/2024 ED Supervising Physician: Patric Guillen MD I independently examined and evaluated Nick Arora. This will serve as my Supervisory note and shared attestation. I did perform a substantive portion of the visit including all aspects of the Medical Decision Making. I wore appropriate PPE for the entirety of this encounter. History: In brief, Nick Arora is a 64 y.o. male that presents to the emergency department complaining of blood in his urine. The patient has had multiple hospitalizations for acute kidney injury and issues with urination at [facility]. Patient is somewhat confused. Is not clear whether this represents a change for him. Focused exam: On examination the patient is an older male found lying on a cart. He is alert and oriented. He is afebrile. Vital signs are within normal limits. He is confused. Chest is clear. Normal cardiac exam. Abdomen is soft nontender. Differential Diagnosis: Differential diagnosis includes urinary tract infection, urinary outlet obstruction, metabolic abnormality, acute kidney injury, dehydration. Diagnostic testing undertaken, as well as those tests considered but not ordered: Laboratory work is obtained on this patient. A bladder scan demonstrated 225 cc of urine inside the bladder. Conley catheter will be placed. ED testing and evaluation will be obtained to help differentiate these diagnostic possibilities and determine the most likely cause. Brief ED course/MDM: Laboratory work is pending. The patient will likely require admission for further evaluation. Sources of History: I evaluated other historical sources including previous outpatient records and admission records. Patient is aware of care plan. All diagnostic, treatment, and disposition decisions were made by myself in conjunction with the Resident. I also supervised villalobos portions of any procedures performed by the Resident. For all further details of the patient's emergency department visit, please see their documentation. (Comment: Please note this report has been produced using speech recognition software and may contain errors related to that system including errors in grammar, punctuation, and spelling, as well as words and phrases that may be inappropriate. If there are any questions or concerns please feel free to contact the dictating provider for clarification.) Patric Guillen MD Acute Care [facility] Patric Guillen MD 07/25/24 1526 ED PROVIDER NOTE Observed: 07/25/2024 12:25 PM Status: COMPLETED Source: [facility] EMERGENCY DEPARTMENT [facility] ER Pt Name: Nick Arora Birthdate 1960 Date of evaluation: 07/25/2024 ED Provider: Marlene Escalante MD CHIEF COMPLAINT Chief Complaint Patient presents with Blood in Urine Pt came in for blood in urine that started 2 days ago. Pt is from home and daughter said that pt has been more confused lately. Pt had left knee replacement last month and has had troubles walking since then. Pt A/O x4, GCS 15. HISTORY OF PRESENT ILLNESS (Location/Symptom, Timing/Onset, Context/Setting, Quality, Duration, Modifying Factors, Severity) Note limiting factors. I wore appropriate PPE for the entirety of this encounter. HPI Nick Arora is a 64 y.o. who presents to the emergency department for hematuria. Patient states this began approximately 3 days ago and he has noted 1 episode of burning with urination. Patient has a history of urinary retention and has required catheterization in the past. Denies fevers, chills, nausea, vomiting, chest pain, shortness of breath, abdominal pain. He denies having had similar blood in his urine in the past. Daughter states patient has not urinated since approximately 6:30 AM. Patient states he has not had a bowel movement in 2 days but states this is normal for him. Nursing Notes were reviewed. Limitations to history: None Outside historians: Family daughter present at bedside REVIEW OF SYSTEMS Review of Systems Pertinent positives and negatives as per HPI. PAST MEDICAL HISTORY No past medical history on file. SURGICAL HISTORY No past surgical history on file. CURRENT MEDICATIONS Previous Medications AMLODIPINE (NORVASC) 10 MG TABLET Take 10 mg by mouth in the morning. ATORVASTATIN (LIPITOR) 20 MG TABLET Take 1 tablet by mouth Nightly. CARBIDOPA-LEVODOPA (SINEMET) 25-100 MG TABLET Take 1 tablet by mouth in the morning and 1 tablet at noon and 1 tablet in the evening. CITALOPRAM (CELEXA) 40 MG TABLET Take 40 mg by mouth in the morning. CLONIDINE (CATAPRES) 0.2 MG TABLET Take 0.2 mg by mouth in the morning and 0.2 mg in the evening. DAPAGLIFLOZIN (FARXIGA) 10 MG TABLET Take 1 tablet by mouth daily (with breakfast). LISINOPRIL 10 MG TABLET Take 10 mg by mouth in the morning. PANTOPRAZOLE (PROTONIX) 40 MG EC TABLET Take 40 mg by mouth every morning (before breakfast). SENNA-DOCUSATE (PROMISE-COLACE) 8.6-50 MG TABLET Take 1 tablet by mouth in the morning and 1 tablet in the evening. SPIRONOLACTONE (ALDACTONE) 25 MG TABLET Take 25 mg by mouth in the morning. TAMSULOSIN (FLOMAX) 0.4 MG 24 HR CAPSULE Take 0.4 mg by mouth in the morning. ALLERGIES Hydrocodone-acetaminophen and Tramadol FAMILY HISTORY No family history on file. SOCIAL HISTORY Social History Socioeconomic History Marital status: Social Determinants of Health Food Insecurity: No Food Insecurity (07/07/2024) Received from [facility] Hunger Vital Sign Worried About Running Out of Food in the Last Year: Never true Ran Out of Food in the Last Year: Never true Transportation Needs: No Transportation Needs (07/07/2024) Received from [facility] PRAPARE - Transportation Lack of Transportation (Medical): No Lack of Transportation (Non-Medical): No Housing Stability: Low Risk (07/07/2024) Received from [facility] Housing Stability Vital Sign Unable to Pay for Housing in the Last Year: No Number of Times Moved in the Last Year: 1 Homeless in the Last Year: No SCREENINGS [place] Coma Scale Best Eye Response: Spontaneous Best Verbal Response: Oriented Best Motor Response: Follows commands [place] Coma Scale Score: 15 PHYSICAL EXAM ED Triage Vitals [07/25/24 1246] Temp Heart Rate Resp BP 37.2 ?C (98.9 ?F) 65 18 109/60 SpO2 Temp Source Heart Rate Source Patient Position 95 % Oral Monitor Lying BP Location FiO2 (%) -- -- Physical Exam Constitutional: General: He is not in acute distress. Appearance: Normal appearance. He is obese. He is not ill-appearing. HENT: Head: Normocephalic and atraumatic. Mouth/Throat: Mouth: Mucous membranes are moist. Pharynx: Oropharynx is clear. Eyes: Extraocular Movements: Extraocular movements intact. Comments: Pupils 3 mm and reactive bilaterally Cardiovascular: Rate and Rhythm: Normal rate and regular rhythm. Comments: 2+ radial pulses bilaterally, 2+ dorsalis pedis pulses, systolic murmur present Pulmonary: Effort: Pulmonary effort is normal. Breath sounds: Normal breath sounds. Abdominal: Palpations: Abdomen is soft. Tenderness: There is no abdominal tenderness. There is no guarding or rebound. Comments: Protuberant abdomen Musculoskeletal: Right lower leg: No edema. Left lower leg: No edema. Skin: General: Skin is warm and dry. Capillary Refill: Capillary refill takes less than 2 seconds. Neurological: General: No focal deficit present. Mental Status: He is alert and oriented to person, place, and time. Psychiatric: Mood and Affect: Mood normal. Behavior: Behavior normal. DIAGNOSTIC RESULTS RADIOLOGY (Per Emergency Physician): Interpretation per the Radiologist below, if available at the time of this note: CT abdomen pelvis wo IV contrast (Results Pending) XR chest 1 view (Results Pending) LABS: Labs Reviewed CBC WITH AUTO DIFFERENTIAL - Abnormal Result Value Auto WBC 11.7 (*) RBC 3.61 (*) Hemoglobin 11.0 (*) Hematocrit 34.0 (*) MCV 94.2 MCH 30.5 MCHC 32.4 RDW 13.1 Platelets 312 MPV 10.1 nRBC 0.0 Neutrophils Relative 83.6 (*) Lymphocytes Relative 9.2 (*) Monocytes Relative 6.2 Eosinophils Relative 0.2 Basophils Relative 0.4 Immature Grans % 0.4 Neutrophils Absolute 9.8 (*) Lymphocytes Absolute 1.1 Monocytes Absolute 0.7 Eosinophils Absolute 0.0 Basophils Absolute 0.1 Immature Grans Absolute 0.1 (*) BASIC METABOLIC PANEL - Abnormal SODIUM 135 POTASSIUM 4.7 CHLORIDE 100 CARBON DIOXIDE 23 UREA NITROGEN 25 (*) CREATININE 1.67 (*) GLUCOSE 188 (*) CALCIUM 9.4 ANION GAP 12 eGFR 44.9 (*) LACTIC ACID WITH REFLEX - Abnormal LACTIC ACID 4.4 (*) COMPLETE URINALYSIS - Abnormal Color, Urine Yellow Clarity, Urine Clear pH, Urine 7.0 Leukocytes, Urine 75 (*) Nitrite, Urine Negative Protein, Urine 70 (*) Glucose, Urine >1,000 (*) Bilirubin, Urine Negative Ketones, Urine Negative Urobilinogen, Urine Normal Blood, Urine >1.0 (*) RBC, Urine >100 (*) WBC, Urine 26-50 (*) Squamous Epithelial, Urine Negative Bacteria, Urine Few (*) Mucus, Urine Few Hyaline Casts, Urine 3-5 (*) SPECIFIC GRAVITY OF URINE (NUMERIC) 1.022 HEPATIC FUNCTION PANEL - Normal BILIRUBIN, TOTAL 0.7 BILIRUBIN, DIRECT 0.0 ALKALINE PHOSPHATASE 84 AST (SGOT) 22 ALT 15 ALBUMIN 4.0 TOTAL PROTEIN 6.7 URINE CULTURE BLOOD CULTURE BLOOD CULTURE COMPLETE URINALYSIS WITH REFLEX TO CULTURE Narrative: The following orders were created for panel order Complete Urinalysis with reflex to Culture. Procedure Abnormality Status --------- ------ Complete Urinalysis[[id number]] Abnormal Final result Please view results for these tests on the individual orders. LACTIC ACID WITH REFLEX PROCALCITONIN TEST All other labs were within normal range or not returned as of this dictation. EMERGENCY DEPARTMENT COURSE and DIFFERENTIAL DIAGNOSIS/MDM: Vitals: Vitals: 07/25/24 1246 07/25/24 1443 07/25/24 1715 07/25/24 1716 BP: 109/60 125/64 124/71 BP Location: Left arm Patient Position: Lying Lying Lying Pulse: 65 71 65 Resp: 18 18 20 Temp: 37.2 ?C (98.9 ?F) TempSrc: Oral SpO2: 95% 96% 96% Weight: 102 kg (225 lb) Height: 1.829 m (6') The patient presented with a chief complaint of hematuria. Our workup consisted of ordering/reviewing CBC, BMP, urinalysis, lactic acid. CBC revealed mild leukocytosis with WBC 11.7, mild anemia with hemoglobin of 11 which appears stable to previous values. BMP revealed no major electrolyte abnormalities and YUMIKO with elevated creatinine to 1.67. Given patient's complaint of urinary retention he was bladder scanned and noted to have 225 mL. Urinary catheter was placed due to his inability to produce urine. Urinalysis revealed positive leukocyte esterase, positive RBCs, positive WBCs, presence of bacteria revealing likely infection. Patient's lactic acid was elevated at 4.4. Although the patient did not meet SIRS criteria, given patient's elevated lactate with source of infection sepsis protocol was initiated. Blood cultures were obtained. Patient was initiated on cefepime and vancomycin for antibiotics and a 500 mL bolus of fluids were given. Patient be admitted to the admitting resident hospitalist team for further management. Patient and his daughter are understanding and in agreement with this plan. Diagnoses as of 07/25/24 1726 Septic shock (HCC) SEP-1 CORE MEASURE DATA SIRS Criteria Sepsis Criteria Severe Sepsis Criteria Septic Shock Criteria Must meet 2: [] Temperature > 100.4 F (38 C) or < 96.8 F (36 C) [] HR > 90 [] RR > 20 [] WBC > 12 or < 4 or 10% bands Must be confirmed or suspected to move forward with diagnosis of sepsis. Must select at least one: [x] Bacterial Infection Confirmed or Suspected. [] Viral Infection Confirmed or Suspected. [] No infection present. Patient does not meet criteria for Sepsis. Must meet 1: [x] Lactate > 2 or [] Signs of Organ Dysfunction: - SBP < 90 or MAP < 65 - Altered mental status - Creatinine > 2 or increased from baseline - Urine Output < 0.5 ml/kg/hr - Bilirubin > 2 - INR > 1.5 - Platelets < 100,000 - Acute Respiratory Failure as evidenced by new need for NIPPV or mechanical ventilation [] No criteria met for Severe Sepsis. Must meet 1: [x] Lactate = or > 4 or [] SBP < 90 or MAP < 65 for at least two readings in the first hour after fluid bolus administration [] No criteria met for Septic Shock. No data found. Recent Labs 07/25/24 1451 WBC 11.7* LACTATE 4.4* CREATININE 1.67* BILITOT 0.7 PLT 312 Sepsis Identified at 1451 hours. Fluid Resuscitation Rational: Due to heart failure, ordered less than 30cc/kg actual body weight. Actual fluid amount given: 500 mL Infection Source: Urinary System Reassessment Exam: SEPSIS REASSESSMENT I examined the patient 07/25/2024 5:26 PM Vital Signs:BP 124/71 (BP Location: Left arm, Patient Position: Lying) Pulse 65 Temp 37.2 ?C (98.9 ?F) (Oral) Resp 20 Ht 1.829 m (6') Wt 102 kg (225 lb) SpO2 96% BMI 30.52 kg/m? Cardiac examination significant for: Regular rate and rhythm Pulmonary examination significant for: Clear lung moore Capillary refill is: 1 seconds Peripheral Pulse is: 2+ Skin is: Normal Marlene Escalante MD External records reviewed: Care everywhere labs Discussions with other clinicians: Attending physician Social determinants of health affecting care: none ED Medications managed: Medications vancomycin IVPB 1250 mg in 250 mL NS (premix) (1,250 mg IntraVENous New Bag 07/25/24 8384) cefepime (Maxipime) 2,000 mg in sodium chloride 0.9 % 50 mL IVPB Mini-Bag Plus (0 mg IntraVENous Stopped 07/25/24 1625) sodium chloride 0.9 % bolus 500 mL (0 mL IntraVENous Stopped 07/25/24 1713) Prescription drugs considered: Antibiotics cefepime and vancomycin PROCEDURES: Unless otherwise noted below, none Procedures FINAL IMPRESSION 1. Septic shock (HCC) DISPOSITION Admit 07/25/2024 05:15:17 PM PATIENT REFERRED TO: No follow-up provider specified. DISCHARGE MEDICATIONS: New Prescriptions No medications on file (Comment: Please note this report has been produced using speech recognition software and may contain errors related to that system including errors in grammar, punctuation, and spelling, as well as words and phrases that may be inappropriate. If there are any questions or concerns please feel free to contact the dictating provider for clarification.) Marlene Escalante MD (electronically signed) Emergency Medicine Provider Marlene Escalante MD Resident 07/25/24 9517 Marlene Escalante MD Resident 07/25/24 0183 PROGRESS NOTE Observed: 07/25/2024 12:25 PM Status: COMPLETED Source: [facility] Result reviewed. No further treatment needed THERAPY NT Observed: 07/14/2024 10:10 AM Status: COMPLETED Source: [facility] HNO ID: [id number] Author: HILARY REESE PT Service: Physical Therapy Author Type: Physical Therapist Type: Therapy (PT/OT/Speech/Resp) Filed: 07/14/2024 10:12 Note Text: Summary: PT discharge note Physical Therapy [facility] Treatment Summary SERVICE DATE: 07/14/2024 SERVICE TIME: 821 to 830 ROOM: [place] [address] Discharge Therapy Services Discharged (date): 07/14/24 Discharged To: Home Home Exercise Program Status: Assist Ability To Apply Precautions Upon Discharge: Requires Cues Equipment Issued: Gait Belt PT 6 Clicks Score: 24 DISCHARGE RECOMMENDATIONS Home PT Recommended Discharge Disposition Comments: Home PT with 27/04 supervision from spouse, but not physical assist Anticipated Discharge Needs: Family Training, Supervision at Home Recommended Discharge Equipment: To Be Determined GOALS: All goals met except for gait speed goal, with patient to have 27/04 supervision and assist. Patient will demonstrate progress with functional mobility to allow safe discharge to home with available support and/or physical assistance. Able to Perform HEP with: Independent: GOAL MET Rolling with: Modified Independent: GOAL MET Transfer Supine to/from Sit with: Modified Independent: GOAL MET Transfer Sit to/from Stand with: Supervision: GOAL MET Ambulate with: Supervision: GOAL MET Distance: 150+: GOAL MET Device: Wheeled Walker: GOAL MET ROM: L knee 0-100 < 2/10 pain: GOAL MET Goal: 10 MWT > 0.75 m/s : PM Rehab Potential: Good Progress Toward Goals: Progressing as expected ASSESSMENT Response to Therapy Interventions: On-Track to Achieve Discharge Goals Discharge to home setting this date with encouragement for initial 27/04 supervision and assist from spouse and daughter as able. Encouragement for hourly ankle pumps and continued supine based exercises as well as potential for outpatient therapy after completion of home health services. D/c this date. Plan for Next Visit: (discharge) PRECAUTIONS Fall Risk, Total Knee Replacement, Weight Bearing Restrictions L TKA and WBAT, MIRANDA tyson, fall risk, Parkinson's Left Lower Extremity Weight Bearing Status: WBAT SUBJECTIVE Discharge to home setting this date FUNCTIONAL STATUS Bed Mobility Rolling: Supervision Supine To Sit: Stand By Assistance (elevated head of bed) Sit to Supine: Supervision Scooting: Stand By Assistance Transfers Sit To Stand: Supervision Stand To Sit: Supervision Bed to Chair Contact Guard Assistance Bed To Chair Transfer Type: Stepping Bed To Chair Transfer Equipment: Gait Belt, Wheeled Walker Gait Supervision Gait Device: Wheeled Walker Gait Distance (feet): 250+ Stairs Stand By Assistance Stairs Device: Rail Number of Stairs: 8 CURRENT HOSPITAL COURSE Patient is a 64 year old male presenting from [facility] from 07/03-07/05 for YUMIKO, hypotension, WBC of 24, distended gallbladder with mild wall thickening per CT abdomen. Conley removed during stay. Recent elective L TKA 06/22 at [facility]. Patient now presents motivated to return to home setting with 27/04 supervision and assist from spouse. Relevant Past Medical History: HTN, HFrEF, T2DM, Parkinson's disease, Possible stroke per daughter, L TKA 06/22/24; HOME LIVING Patient Lives With: Spouse (FIrst floor apartment) Assistance Available: 24-Hour (spouse cannot physically assist due to LBP) Entry To Home: No Stairs Number Of Stairs To Bed/Bath: 0 Tub/Shower Type: tub shower bench Laundry: same level- spouse completes Equipment Owned: Commode- 3 in 1, Extended Tub Bench, Walker- Wheeled, Other: See Comment (transport chair) PRIOR FUNCTIONAL LEVEL Required Assistance Assistance Required With: Medication Management, Shopping, Self Care Pt was GA with mobility; limited distances d/t pain in knee; pt would use cart in grocery store, no AD in house; Pt typically sleeps in recliner. He required assist w/ bathing and LB dressing; Spouse does most meals, laundry and cleaning; +driving Per chart, pt and spouse have hoarding tendencies so there is limited space in home. Spouse is 80 y/o and unable to physically assist pt. One fall at home, no injuries. Diagnosed with Parkinson's February 2024 Independent with medication with diffculty THERAPY DIAGNOSIS Reduced mobility-other, Muscle Weakness (generalized), Difficulty walking-musculoskeletal TREATMENT INTERVENTIONS Therapeutic Activity (76338) Timed Code Treatment (minutes): 9 Skilled Treatment Time (minutes): 9 EXERCISE Review of total joint packet this date with handouts given. TRAINING AND EDUCATION PROVIDED Assistive Device Use, Bed Mobility, Benefits of In-Hospital Mobility, Discharge Planning, Disease Specific Education, Exercise Program, Expected Functional Level, Falls Prevention, Gait Pattern, Reduction of Deviations, Home Safety, Home Set-up/Modifications, Precautions/Restrictions, Modalities, Pain Neuroscience, Stair Navigation, Standing Balance, Transfers, Treatment Protocol THERAPEUTIC SKILLS USED Activity Dosing, Cues for Sequencing/Proper Technique for Activity, Cuing Tactile, Cuing Verbal, Movement Facilitation PLAN PT Frequency: (7x 7 days) Treatment Interventions: Education, Self Care / Home Management, Energy Conservation Training, Joint Mobility, Strengthening, Functional Mobility Training, Balance Training, Neuromuscular Re-education, Wound Care Management, Modalities, Edema Management, Pain Management SIGNATURE: Hilary Reese PT PATIENT NAME: Nick Arora DATE: July 14, 2024 TIME: 10:10 AM THERAPY NT Observed: 07/14/2024 8:22 AM Status: COMPLETED Source: [facility] HNO ID: [id number] Author: HILARY REESE PT Service: Physical Therapy Author Type: Physical Therapist Type: Therapy (PT/OT/Speech/Resp) Filed: 07/14/2024 08:23 Note Text: Summary: PT discharge instructions PT Discharge Instructions The PT team at [facility] has this list of discharge instructions specific to your home going needs. Your anticipated discharge date is 07/14/24. Please share these discharge instructions with family as well as any care providers coming to your home to assist with the continuity of your care. Weight Bearing precautions: Weight bearing as tolerated to left leg Precautions: Knee: No kneeling, no twisting, keep knee in line with your toes Recommended equipment for home: Wheeled walker and Gait belt Additional instructions: 27/04 supervision and assist recommended initially, Use the walker at all times when walking and transferring, Stay within the walker at all times, Push up from the arm rests when standing from chair, Reach back for the arm rests when sitting, Have help when completing the stairs as instructed, When managing stairs, lead up with the stronger leg, down with the weaker leg - Up with the good, down with the bad, Have someone beside you when walking, Complete home exercise as instructed., Walk frequently throughout the day. A good rule of thumb is to walk once every hour, follow up with outpatient therapy once cleared by home health, and Home PT advised Thank you for entrusting your care to us. If you have questions regarding PT please contact the PT team at [phone]. Hilary Reese PT Sapna Vidales PT Lary Bob PT Hugh Ellison RIVERBOAT MASTER Gio Christine RIVERBOAT MASTER SOCIAL WORK Observed: 07/13/2024 6:49 PM Status: COMPLETED Source: [facility] HNO ID: [id number] Author: LEIA GODWIN LSW Service: Social Work Author Type: Clinician Oncology Type: Social Work Filed: 07/13/2024 18:53 Note Text: Summa ry: MERCED callahan/Update SOCIAL WORK Observed: 07/13/2024 5:18 PM Status: COMPLETED Source: [facility] HNO ID: [id number] Author: LEIA GODWIN LSW Service: Social Work Author Type: Clinician Oncology Type: Social Work Filed: 07/13/2024 18:53 Note Text: Summary: SW rounding/update SOCIAL WORK PROGRESS NOTE Name: Nick Arora 3:00 pm Informed patient that SW has not yet found a HH agency but will continue to look. Patient said he would have no way to get to Outpatient Therapy at this time. 4:30 pm Relayed to patient that [facility] able [facility] accept. Provided contact information. Signature: ALPA Black Date: July 13, 2024 Time: 5:18 PM SOCIAL WORK Observed: 07/13/2024 5:16 PM Status: COMPLETED [facility] [id number] Author: LEIA GODWIN LSW Service: Social Work Author Type: Clinician Oncology Type: Social Work Filed: 07/13/2024 17:18 Note Text: Summary: Team Rounds MULTIDISCIPLINARY ROUNDS SERVICE DATE: 07/13/2024 ADMISSION DATE: 07/05/2024 SERVICE TIME: 12:30 PM ANTICIPATED D/C DATE: 07/14 Problem List: ACTIVE PROBLEM LIST Mixed Hyperlipidemia Calculus of Kidney Essential (Primary) Hypertension Mild Depression Type 2 Diabetes Mellitus Without Complication, Without Long-Term Current Use of Insulin (Hcc) Chronic Combined Systolic and Diastolic Heart Failure (Hcc) Chronic Bilateral Low Back Pain With Bilateral Sciatica Parkinson's Disease With Dyskinesia (Hcc) Aftercare Status Post Total Left Knee Replacement Attendees Present at Rounds: CM, RNP, NM, OT, PT, R.D, SW Needs Discussed on Rounds: Diet Discharge Needs Plan of Care Anticipated Discharge Disposition: Home with Home Health Last Vitals: BP 117/66 Pulse 59 Temp (Src) 97.3 (Oral) Resp 16 Ht 5' 11 (1.80m) Wt 209 lb 10.5 oz (95.1kg) SpO2 94% BMI 29.25 kg/(m2). O2 Therapy: Room Air R.D Wt loss r/t ? WBC elevated SW home w/ . Daughter unable to come [place] from [place]. Difficulty finding [facility] agency. Nursing: DOCUMENTED BY: ALPA Black PATIENT NAME: Nick Arora DATE: July 13, 2024 TIME: 5:16 PM CSN: [id number] SOCIAL WORK Observed: 07/13/2024 4:12 PM Status: COMPLETED Source: [facility] ID: [id number] Author: LEIA GODWIN LSW Service: Social Work Author Type: Clinician Oncology Type: Social Work Filed: 07/13/2024 16:16 Note Text: Summary: Team Rounds MULTIDISCIPLINARY ROUNDS SERVICE DATE: 07/13/2024 ADMISSION DATE: 07/05/2024 SERVICE TIME: 12:30 PM ANTICIPATED D/C DATE: 07/14 Problem List: ACTIVE PROBLEM LIST Mixed Hyperlipidemia Calculus of Kidney Essential (Primary) Hypertension Mild Depression Type 2 Diabetes Mellitus Without Complication, Without Long-Term Current Use of Insulin (Hcc) Chronic Combined Systolic and Diastolic Heart Failure (Hcc) Chronic Bilateral Low Back Pain With Bilateral Sciatica Parkinson's Disease With Dyskinesia (Hcc) Aftercare Status Post Total Left Knee Replacement Attendees Present at Rounds: CM, RNP, NM, OT, PT, R.D, SW Needs Discussed on Rounds: Discharge Needs Plan of Care Anticipated Discharge Disposition: Home with Home Health Last Vitals: BP 117/66 Pulse 59 Temp (Src) 97.3 (Oral) Resp 16 Ht 5' 11 (1.80m) Wt 209 lb 10.5 oz (95.1kg) SpO2 94% BMI 29.25 kg/(m2). O2 Therapy: Room Air SW home w/ . Daughter unable to come [place] from [place]. Difficulty finding [facility] agency. R.D Wt loss r/t ? WBC elevated Nursing: DOCUMENTED BY: ALPA Black PATIENT NAME: Nick Arora DATE: July 13, 2024 TIME: 4:12 PM CSN: [id number] THERAPY NT Observed: 07/13/2024 2:06 PM Status: COMPLETED Source: [facility] HNO ID: [id number] Author: NANCIE CHRISTINE PTA Service: Physical Therapy Author Type: Tug Hand Type: Therapy (PT/OT/Speech/Resp) Filed: 07/13/2024 14:06 Note Text: Attestation signed by Hilary Reese PT at 07/13/2024 3:39 PM I reviewed and agree with the documentation corresponding to this therapy visit. SIGNATURE: Hilary Reese PT DATE: July 13, 2024 TIME: 3:39 PM Physical Therapy Halfway Facility Treatment Summary SERVICE DATE: 07/13/2024 SERVICE TIME: 1311 to 1400 ROOM: [place] [address] PT 6 Clicks Score: 24 DISCHARGE RECOMMENDATIONS Home PT Recommended Discharge Disposition Comments: Home PT with 27/04 supervision from spouse, but not physical assist Anticipated Discharge Needs: Family Training, Supervision at Home Recommended Discharge Equipment: To Be Determined GOALS Patient will demonstrate progress with functional mobility to allow safe discharge to home with available support and/or physical assistance. Able to Perform HEP with: Independent Rolling with: Modified Independent Transfer Supine to/from Sit with: Modified Independent Transfer Sit to/from Stand with: Supervision Ambulate with: Supervision Distance: 150+ Device: Wheeled Walker ROM: L knee 115 flex. WNL extension Goal: 10 MWT > 0.75 m/s Rehab Potential: Good Progress Toward Goals: Progressing as expected ASSESSMENT Response to Therapy Interventions: Good Participation in Activities patient reports fatigue, exhauseted. reuqired a arest prior to returning to room. Plan for Next Visit: (DC) PRECAUTIONS Fall Risk, Total Knee Replacement, Weight Bearing Restrictions L TKA and WBAT, MIRANDA hose, fall risk, Parkinson's Left Lower Extremity Weight Bearing Status: WBAT SUBJECTIVE im so tried I want to go into the bed and sleep rated pain 6/10 FUNCTIONAL STATUS Bed Mobility Rolling: Supervision Supine To Sit: Stand By Assistance (elevated head of bed) Sit to Supine: Supervision Scooting: Stand By Assistance Transfers Sit To Stand: Supervision Stand To Sit: Supervision Bed to Chair Contact Guard Assistance Bed To Chair Transfer Type: Stepping Bed To Chair Transfer Equipment: Gait Belt, Wheeled Walker Gait Supervision Gait Device: Wheeled Walker General Deviations/Observations: Margareth decreased, Step length decreased Gait Distance (feet): 100 ft Stairs Stand By Assistance Stairs Device: Rail Number of Stairs: 8 CURRENT HOSPITAL COURSE Patient is a 64 year old male presenting from [facility] from 07/03-07/05 for YUMIKO, hypotension, WBC of 24, distended gallbladder with mild wall thickening per CT abdomen. Conley removed during stay. Recent elective L TKA 06/22 at [facility]. Patient now presents motivated to return to home setting with 27/04 supervision and assist from spouse. Relevant Past Medical History: HTN, HFrEF, T2DM, Parkinson's disease, Possible stroke per daughter, L TKA 06/22/24; HOME LIVING Patient Lives With: Spouse (FIrst floor apartment) Assistance Available: 24-Hour (spouse cannot physically assist due to LBP) Entry To Home: No Stairs Number Of Stairs To Bed/Bath: 0 Tub/Shower Type: tub shower bench Laundry: same level- spouse completes Equipment Owned: Commode- 3 in 1, Extended Tub Bench, Walker- Wheeled, Other: See Comment (transport chair) PRIOR FUNCTIONAL LEVEL Required Assistance Assistance Required With: Medication Management, Shopping, Self Care Pt was GA with mobility; limited distances d/t pain in knee; pt would use cart in grocery store, no AD in house; Pt typically sleeps in recliner. He required assist w/ bathing and LB dressing; Spouse does most meals, laundry and cleaning; +driving Per chart, pt and spouse have hoarding tendencies so there is limited space in home. Spouse is 80 y/o and unable to physically assist pt. One fall at home, no injuries. Diagnosed with Parkinson's February 2024 Independent with medication with diffculty THERAPY DIAGNOSIS Reduced mobility-other, Muscle Weakness (generalized), Difficulty walking-musculoskeletal TREATMENT INTERVENTIONS Therapeutic Exercise (51308), Therapeutic Activity (63619), Gait Training (23874) Timed Code Treatment (minutes): 49 Skilled Treatment Time (minutes): 49 EXERCISE Exercises Exercise Performed: (standing ex. bal and 3-ways, toe riases, toe/heel retro walk lateral side stepping, mini squats, SLS) SAQ (number of reps): 2 x 10 assissted 5x SLR (number of reps): 2 x 10 assisted 6x Exercise: Nu-step 15 min. L3 TRAINING AND EDUCATION PROVIDED Assistive Device Use, Exercise Program, Gait Pattern, Reduction of Deviations, Expected Functional Level, Precautions/Restrictions, Transfers THERAPEUTIC SKILLS USED Activity Dosing, Cues for Sequencing/Proper Technique for Activity, Cuing Verbal, Cuing Visual, Postural Alignment Correction PLAN PT Frequency: (7x 7 days) Treatment Interventions: Education, Self Care / Home Management, Energy Conservation Training, Joint Mobility, Strengthening, Functional Mobility Training, Balance Training, Neuromuscular Re-education, Wound Care Management, Modalities, Edema Management, Pain Management SIGNATURE: aNncie Christine PTA PATIENT NAME: Nick Arora DATE: July 13, 2024 TIME: 2:06 PM THERAPY NT Observed: 07/13/2024 12:42 PM Status: COMPLETED Source: [facility] HNO ID: [id number] Author: NANCIE CHRISTINE PTA Service: Physical Therapy Author Type: Tug Hand Type: Therapy (PT/OT/Speech/Resp) Filed: 07/13/2024 12:42 Note Text: Attestation signed by Hilary Reese PT at 07/13/2024 1:01 PM I reviewed and agree with the documentation corresponding to this therapy visit. SIGNATURE: Hilary Reese PT DATE: July 13, 2024 TIME: 1:01 PM Physical Therapy Halfway Facility Treatment Summary SERVICE DATE: 07/13/2024 SERVICE TIME: 844 to 50 ROOM: [place] [address] PT 6 Clicks Score: 24 DISCHARGE RECOMMENDATIONS Home PT Recommended Discharge Disposition Comments: Home PT with 24/7 supervision from spouse, but not physical assist Anticipated Discharge Needs: Family Training, Supervision at Home Recommended Discharge Equipment: To Be Determined GOALS Patient will demonstrate progress with functional mobility to allow safe discharge to home with available support and/or physical assistance. Able to Perform HEP with: Independent Rolling with: Modified Independent Transfer Supine to/from Sit with: Modified Independent Transfer Sit to/from Stand with: Supervision Ambulate with: Supervision Distance: 150+ Device: Wheeled Walker ROM: L knee 115 flex. WNL extension Goal: 10 MWT > 0.75 m/s Rehab Potential: Good Progress Toward Goals: Progressing as expected (goals met) ASSESSMENT Response to Therapy Interventions: Good Participation in Activities Patient states he told his daughter to stay home until the bad weather passes then possibly he will go to [facility]. Patient demonstrates decreased motivation continually fatigued. much encouragement throughout sessions Plan for Next Visit: (review HEP, DC instructions) PRECAUTIONS Fall Risk, Total Knee Replacement, Weight Bearing Restrictions L TKA and WBAT, MIRANDA tyson, fall risk, Parkinson's Left Lower Extremity Weight Bearing Status: WBAT SUBJECTIVE i dont know why im so tired im ready to go home FUNCTIONAL STATUS Bed Mobility Rolling: Supervision Supine To Sit: Stand By Assistance (elevated head of bed) Sit to Supine: Supervision Scooting: Stand By Assistance Transfers Sit To Stand: Stand By Assistance Stand To Sit: Stand By Assistance Bed to Chair Contact Guard Assistance Bed To Chair Transfer Type: Stepping Bed To Chair Transfer Equipment: Gait Belt, Wheeled Walker Gait Stand By Assistance Gait Device: Wheeled Walker General Deviations/Observations: Margareth decreased, Step length decreased Gait Distance (feet): 100 ft + Stairs Stand By Assistance Stairs Device: Rail Number of Stairs: 8 CURRENT HOSPITAL COURSE Patient is a 64 year old male presenting from [facility] from 07/03-07/05 for YUMIKO, hypotension, WBC of 24, distended gallbladder with mild wall thickening per CT abdomen. Conley removed during stay. Recent elective L TKA 06/22 at [facility]. Patient now presents motivated to return to home setting with 27/04 supervision and assist from spouse. Relevant Past Medical History: HTN, HFrEF, T2DM, Parkinson's disease, Possible stroke per daughter, L TKA 06/22/24; HOME LIVING Patient Lives With: Spouse (FIrst floor apartment) Assistance Available: 24-Hour (spouse cannot physically assist due to LBP) Entry To Home: No Stairs Number Of Stairs To Bed/Bath: 0 Tub/Shower Type: tub shower bench Laundry: same level- spouse completes Equipment Owned: Commode- 3 in 1, Extended Tub Bench, Walker- Wheeled, Other: See Comment (transport chair) PRIOR FUNCTIONAL LEVEL Required Assistance Assistance Required With: Medication Management, Shopping, Self Care Pt was GA with mobility; limited distances d/t pain in knee; pt would use cart in grocery store, no AD in house; Pt typically sleeps in recliner. He required assist w/ bathing and LB dressing; Spouse does most meals, laundry and cleaning; +driving Per chart, pt and spouse have hoarding tendencies so there is limited space in home. Spouse is 80 y/o and unable to physically assist pt. One fall at home, no injuries. Diagnosed with Parkinson's February 2024 Independent with medication with diffculty THERAPY DIAGNOSIS Reduced mobility-other, Muscle Weakness (generalized), Difficulty walking-musculoskeletal TREATMENT INTERVENTIONS Therapeutic Exercise (63050), Therapeutic Activity (78654), Gait Training (85465) Timed Code Treatment (minutes): 65 Skilled Treatment Time (minutes): 65 EXERCISE Exercises Exercise Performed: (nu-step L3 20 SLR, SAQ , slant board stretching) SAQ (number of reps): 2 x 10 assissted 5x SLR (number of reps): 2 x 10 assisted 6x Exercise: nu-step L 3 12 mi TRAINING AND EDUCATION PROVIDED Assistive Device Use, Exercise Program, Gait Pattern, Reduction of Deviations, Expected Functional Level, Precautions/Restrictions, Transfers THERAPEUTIC SKILLS USED Activity Dosing, Cues for Sequencing/Proper Technique for Activity, Cuing Verbal, Cuing Visual, Postural Alignment Correction PLAN PT Frequency: (7x 7 days) Treatment Interventions: Education, Self Care / Home Management, Energy Conservation Training, Joint Mobility, Strengthening, Functional Mobility Training, Balance Training, Neuromuscular Re-education, Wound Care Management, Modalities, Edema Management, Pain Management SIGNATURE: Nancie Christine PTA PATIENT NAME: Nick Arora DATE: July 13, 2024 TIME: 12:42 PM CNDS Observed: 07/13/2024 11:13 AM Status: COMPLETED Source: [facility] HNO ID: [id number] Author: MONIQUE ROMERO MD Service: Hospital Medicine Author Type: Nurse Practitioner Type: Discharge Summary Filed: 07/17/2024 15:05 Note Text: Attestation signed by Monique Romero MD at 07/17/2024 3:05 PM I have reviewed the DC summary and agree with all the outlined elements. Monique Romero MD DISCHARGE SUMMARY PATIENT NAME: Nick Arora ADMISSION DATE: 07/05/2024 DISCHARGE DATE: 07/13/2024 ATTENDING PHYSICIAN: Monique Romero,* Code Status: Full Code PCP: Aga Benitez MD Highest Readmission Risk Score: 17 The 30 day readmissions risk score is derived from an internally validated risk model which evaluates patient level characteristics, utilization history, medication orders and lab results up until the day of discharge. Patients with a score of 40 or above are considered highest risk for readmission. Specific patient level drivers will be listed at the bottom of the summary. TRANSITIONS OF CARE CRITICAL ISSUES: VILLALOBOS MEDICATION CHANGES: Tramadol for pain Stop HCTZ Tylenol for pain Tamsulosin reduced to 0.4mg daily Lisinopril reduced to 10mg daily Follow up PCP and ortho REASON FOR HOSPITALIZATION/PRINCIPAL DIAGNOSES: aftercare HOSPITAL PROBLEMS: Principal Problem: Aftercare (POA: Yes) Active Problems: Essential (primary) hypertension (POA: Yes) Mild depression (POA: Yes) Type 2 diabetes mellitus without complication, without long-term current use of insulin (HCC) (POA: Yes) Chronic combined systolic and diastolic heart failure (HCC) (POA: Yes) Parkinson's disease with dyskinesia (HCC) (POA: Yes) Status post total left knee replacement (POA: Yes) Resolved Problems: YUMIKO (acute kidney injury) (HCC) (POA: Yes) Acute urinary retention (POA: Yes) Malnutrition of mild degree (HCC) (POA: Yes) Nausea and vomiting (POA: Yes) UTI (urinary tract infection) (POA: Yes) UTI (urinary tract infection) (POA: Yes) YUMIKO (acute kidney injury) (HCC) (POA: Yes) Hypotension (POA: No) HOSPITAL COURSE: Nick Arora is a 64 year old male with PMH DMII, BPH, Parkinson's disease, depression, diastolic HF, admitted to [facility] on 06/22/2024 for elective left total knee replacement. Patient underwent surgery on 06/22/[address] Ge. Post-op course was complicated by YUMIKO, thus Lisinopril-HCTZ/Aldactone were held. Patient received IVF and Cr trended down (1.48 on 06/27/2024). Ortho recommended Eliquis BID x14 days. Ortho also recommended WBAT LLE and encourage ROM to LLE. Follow up appointment was scheduled for 07/06/2024. Patient was noted to be constipated and tap water enema was given without much success. Patient was discharged with Conley in place due to acute urinary retention noted on admission to [place]. Patient was evaluated by therapy, thus patient was transferred to [facility] services. Patient was progressing well while at [facility] and successfully passed voiding trial. On 07/02/2024 patient had hypotensive episode without acute symptoms and routine labs were checked that showed worsening of YUMIKO and significant WBC elevation to >20K. UA showed a UTI. Given the significant YUMIKO and UTI, a CT AP was performed that showed a dilated gallbladder and recommended RUQ. Given patient significant YUMIKO, WBC elevation, and CT AP findings, it was deemed appropriate to transfer patient to [facility] for higher level of care. Patient was admitted to [facility] on 07/03/2024. Urine cx noted 10,000 -<50,000 CFU/ml Gram negative bacilli. Patient was treated with IV Ceftriaxone and leukocytosis improved to 11k; transitioned to PO ATB at [place]. Patient received IVF and BP normalized; anti-HTN meds restarted slowly and tolerated Amlodipine/Clonidine. YUMIKO improved with IVF. Lisinopril dose was decreased and HCTZ was stopped. RUQ US was negative for gallbladder findings and GI did not recommend any further intervention. Once medically stable, patient was transferred back to [facility] for [facility]. Progressed well with PT and OT DC home in stable condition with [facility] services. OPERATIONS/PROCEDURE DURING THIS HOSPITALIZATION: * No surgery found * CONSULTS DURING HOSPITALIZATION: Treatment Team: Attending Provider: Monique Romero MD PATIENT CONDITION AT DISCHARGE: Stable DISCHARGE DISPOSITION: Home with Home Health Discharge Physical Exam: VITAL SIGNS: BP 128/66 Pulse 68 Temp 36.7 ?C (98.1 ?F) (Oral) Resp 16 Ht 180.3 cm (5' 11) Wt 95.1 kg (209 lb 10.5 oz) SpO2 95% BMI 29.24 kg/m? GENERAL: Alert, no distress, cooperative SKIN: Skin color, texture, turgor normal. No rashes. HEAD/SINUSES: No significant findings, NC/AT LUNGS: Lungs clear to auscultation, Good diaphragmatic excursion CARDIAC: No murmur, RRR ABDOMEN: Abdomen soft, non-tender, BS normal EXTREMITIES: + left knee surgical scar well approximated with minimal post-op edema. Extremities without clubbing or skin discoloration. Good capillary refill. NEURO: Grossly normal cognition, Sensation grossly intact. + resting tremors. PULSES: 2+ radial, 2+ dorsalis pedis WOUND/SURGICAL SITE CARE: None SUPPLIES OR EQUIPMENT: None DIET: Resume pre-hospital diet ACTIVITY AND EXERCISE: Resume pre-hospital activity FOLLOW UP APPOINTMENTS: Future Appointments Date Time Provider Department Center 07/27/2024 12:10 PM Aga Benitez MD [facility] 08/08/2024 3:30 PM Miranda Del Rio MD [facility] ALLERGIES Allergen Reactions Acetaminophen GI Upset Hydrocodone GI Upset Tramadol GI Upset Vicodin [Hydrocodon* GI Upset DISCHARGE MEDICATION: Medication List START taking these medications pantoprazole DR 40 mg tablet Commonly known as: PROTONIX Take 1 tablet by mouth two times a day before meals at 6 am and 4 pm. senna-docusate 8.6-50 mg per tablet Commonly known as: SENNA-S Take 1 tablet by mouth two times a day. traMADol 50 mg tablet Commonly known as: ULTRAM Take 0.5 tablets by mouth every 6 hours as needed for up to 7 days. CHANGE how you take these medications acetaminophen 500 mg tablet Commonly known as: TYLENOL Take 2 tablets by mouth every 8 hours. What changed: medication strength how much to take when to take this reasons to take this tamsulosin 0.4 mg Commonly known as: FLOMAX Take 1 capsule by mouth once daily. Start taking on: July 14, 2024 What changed: how much to take CONTINUE taking these medications amLODIPine 10 mg tablet Commonly known as: NORVASC aspirin 81 mg Cap atorvastatin 20 mg tablet Commonly known as: LIPITOR Take 1 tablet by mouth daily at bedtime. carbidopa-levodopa 25-100 mg per tablet Commonly known as: SINEMET 25-100 Take 1 tablet by mouth three times a day. CeleXA 40 mg tablet Generic drug: citalopram cloNIDine HCl 0.2 mg tablet Commonly known as: CATAPRES dapagliflozin propanediol 10 mg tablet Commonly known as: FARXIGA Take 1 tablet by mouth daily with breakfast. iv contrast (will be provided with radiology test) CTA Head/Neck W No IV access, insert saline lock prior to the sedation, infusion, injection for imaging exam. Discontinue saline lock post exam. If Pt. has a central line or IVAD, may access for administration according to line specific nursing protocol. Once exam is complete flush line and de-access according to line specific nursing protocol in the CT contrast administration guidelines link. lisinopril 10 mg tablet Commonly known as: ZESTRIL Take 1 tablet by mouth once daily. polyethylene glycol 3350 17 gram packet Take 1 Packet by mouth two times a day. Dissolve dose in 4 - 8 ounces of liquid and take as directed. spironolactone 25 mg tablet Commonly known as: ALDACTONE Take 1 tablet by mouth once daily. STOP taking these medications apixaban 2.5 mg tab(s) Commonly known as: ELIQUIS cefdinir 300 mg capsule Commonly known as: OMNICEF docusate sodium 100 mg capsule Commonly known as: COLACE Where to Get Your Medications These medications were sent to [facility] [address] [place] [id number] [phone] [facility] - [phone] [place] [id number] acetaminophen [address] 40 mg tablet senna-docusate 8.6-50 mg per tablet traMADol 50 mg tablet The patient's risk for 30-day readmission is determined using the following contributing factors: Pt variables contributing to increased readmission risk: 23 Active Medication Orders 19 Most Recent BUN Result 9.8 First Resulted Calcium During Admission 2 Number of Hospitalizations (12 mos.) 1 Insurance - Medicare 1 Discharge Disposition - Home 1 Active Anticoagulant Plan of care discussed with Provider, RN, Patient I have performed the mann-cx-[id number] and relevant services for a total of >30 minutes. SIGNATURE: Nav Paulson APRN.CNP DATE: July 13, 2024 TIME: 11:13 AM THERAPY NT Observed: 07/13/2024 10:59 AM Status: COMPLETED Source: [facility] HNO ID: [id number] Author: ESTRELLA MORRISON OTR/[place] Service: Occupational Therapy Author Type: Occupational Therapist Type: Therapy (PT/OT/Speech/Resp) Filed: 07/13/2024 11:00 Note Text: Summary: OT discharge Occupational Therapy Halfway Facility Treatment Summary SERVICE DATE: 07/13/2024 SERVICE TIME: 1016 to 1050 ROOM: [place] [address] OT 6 Clicks Score: 20 DISCHARGE RECOMMENDATIONS Discharge Therapy Services Discharged (date): 07/14/24 Discharged To: Home Home Exercise Program Status: Supervision Ability To Apply Precautions Upon Discharge: Requires Cues Home OT Recommended Discharge Disposition Comments: Pt states spouse can assist with meals and light ADL tasks; home health recommended upon discharge Anticipated Discharge Needs: Family Training, Supervision at Home Recommended Discharge Equipment: ADL Kit, Walker bag/basket, To Be Determined GOALS Progress made towards goals; formal kitchen mobility only partially addressed; pt reports spouse will complete meals and set him up; pt requires supervision -SBA for mobility and transfers; Min A for LB bathing; pt advised to wait for HHT prior to completing tub transfers independently. Patient will demonstrate progress with self-care, cognitive and/or coping needs identified to allow safe discharge to home with available support and/or physical assistance. Lower Body Bathing with: Stand By Assistance Lower Body Dressing with: Stand By Assistance Toilet Hygiene with: Stand By Assistance Chair Transfer with: Stand By Assistance Toilet Transfer with: Stand By Assistance Tub Transfer with: Contact Guard Assistance Tolerate (minutes of functional activity): 50 Functional Activity with: Stand By Assistance Kitchen Mobility Tasks with: Stand By Assistance Progress Toward Goals: Progressing as expected Rehab Potential: Good ASSESSMENT Response to Therapy Interventions: Good Participation in Activities, Pain pt to d/c home 07/14; pt has made progress towards goals. He continues to require slight assist w/ LB ADLS at times; d/t home circumstances, patient's daughter will not be able to travel upon d/c right away; but family has been education on precautions and current level of function; he will d/c with HHT. He has verbalized understanding of all d/c recommendations and instructions. Plan for Next Visit: Bed Mobility, Chair/Commode Transfer Training, Dressing Training, Energy Conservation, Grooming Training, Sit to Stand Transfers, Standing Balance, Standing Tolerance, Toileting Instruction PRECAUTIONS Fall Risk, Total Knee Replacement, Weight Bearing Restrictions L TKA and WBAT, MIRANDA hose, fall risk, Parkinson's Left Lower Extremity Weight Bearing Status: WBAT SUBJECTIVE pt reports no questions regarding d/c; will d/c home with HHT FUNCTIONAL STATUS Activities of Daily Living Assist Level Additional Information Feeding Independent Grooming Stand By Assistance Bathing Upper Body Set Up Bathing Lower Body Minimal Assistance, Additional Information Dressing Upper Body Independent Dressing Lower Body Set Up, Stand By Assistance Toileting Stand By Assistance, Additional Information, Minimal Assistance Instrumental Activities of Daily Living Assist Level Additional Information Meal/Beverage Prep Minimal Assistance, Additional Information Cleaning Moderate Assistance Laundry Moderate Assistance Medication Management with Strategies Mobility Assist Level Additional Information Bed Mobility Supine To Sit: Modified Independent Sit To Supine: Modified Independent Sit to Stand Stand By Assistance Stand to Sit Stand By Assistance, Supervision, Additional Information Bed to Chair Stand By Assistance Bed To Chair Transfer Type: Stepping Bed To Chair Transfer Equipment: Wheeled Walker, Gait Belt Toilet/Commode Stand By Assistance Shower Contact Guard Assistance Functional Mobility Supervision Functional Mobility Device: Wheeled Walker CURRENT HOSPITAL COURSE Patient is a 64 year old male presenting from [facility] from 07/03-07/05 for YUMIKO, hypotension, WBC of 24, distended gallbladder with mild wall thickening per CT abdomen. Conley removed during stay. Recent elective L TKA 06/22 at [facility]. Patient now presents motivated to return to home setting with 27/04 supervision and assist from spouse. Relevant Past Medical History: HTN, HFrEF, T2DM, Parkinson's disease, Possible stroke per daughter, L TKA 06/22/24; HOME LIVING Patient Lives With: Spouse (FIrst floor apartment) Assistance Available: 24-Hour (spouse cannot physically assist due to LBP) Entry To Home: No Stairs Number Of Stairs To Bed/Bath: 0 Tub/Shower Type: tub shower bench Laundry: same level- spouse completes Equipment Owned: Commode- 3 in 1, Extended Tub Bench, Walker- Wheeled, Other: See Comment (transport chair) PRIOR FUNCTIONAL LEVEL Required Assistance Assistance Required With: Medication Management, Shopping, Self Care Pt was GA with mobility; limited distances d/t pain in knee; pt would use cart in grocery store, no AD in house; Pt typically sleeps in recliner. He required assist w/ bathing and LB dressing; Spouse does most meals, laundry and cleaning; +driving Per chart, pt and spouse have hoarding tendencies so there is limited space in home. Spouse is 80 y/o and unable to physically assist pt. One fall at home, no injuries. Diagnosed with Parkinson's February 2024 Independent with medication with diffculty Baseline Cognition: Oriented to self, Oriented to place, Oriented to time, Oriented to situation COGNITION THERAPY DIAGNOSIS Reduced mobility-other, Decreased activities of daily living (ADL), Muscle Weakness (generalized), Unsteadiness on feet TREATMENT INTERVENTIONS Therapeutic Activity (47235) Timed Code Treatment (minutes): 34 Skilled Treatment Time (minutes): 34 EXERCISE None performed this session TRAINING AND EDUCATION PROVIDED Activity Adaptation/Compensatory Strategies, Adaptive Equipment/DME, Energy Conservation, Functional Mobility Involving ADLs, Insight into Deficits, Safety/Judgment, Standing Balance to Improve Nash with ADLs/Self-Care, Transfer - Sit to Stand, Discharge Planning, Lower Extremity Dressing, Pain Management, Positioning, Precautions/Restrictions THERAPEUTIC SKILLS USED Assessment of Tolerance Including Vitals Response to Activity, Cues for Sequencing/Proper Technique for Activity, Cuing Verbal, Cuing Visual, Physical Assist, Therapeutic Use of Self, Task Analysis Learning, Activity Dosing, Facilitation of Joint Range of Motion, Movement Facilitation PLAN OT Frequency: 3 Times Per Week (33-6 times per week x 7-10 days) Treatment Interventions: Education, Self Care/Home Management, Energy Conservation Training, Strengthening, Functional Mobility Training, Balance Training SIGNATURE: MIRIAN Jones/[place] PATIENT NAME: Nick Arora DATE: July 13, 2024 TIME: 10:59 AM NUTRITION Observed: 07/13/2024 9:10 AM Status: COMPLETED Source: [facility] HNO ID: [id number] Author: MIN ANDREWS RD Service: Nutrition Therapy Author Type: Registered Dietitian Type: Nutrition Filed: 07/13/2024 11:13 Note Text: NUTRITION THERAPY PROGRESS NOTE SERVICE DATE: 07/13/2024 SERVICE TIME: 10:10 AM Nutrition Assessment: Recommended Malnutrition Diagnosis: Mild Protein-Calorie Malnutrition (07/06/24 1216 : Min Andrews RD) Care Plan: Continue current diet Supplements: Mighty Shake No Sugar Added Monitor and Evaluation: Meet greater than 75% of estimated needs, Monitor fluid/electrolyte balance, Monitor labs, I/Os, vital signs, weight Discharge Recommendations: Diet;Oral Supplements Diet: regular Oral Supplements: high protein twice daily Interval History: : 7 day LOS here for Therapy , meds AND labs reviewed. Variable % meal intake, elevated WBC's noted 95.1kg w/ loss noted Intake History: Current Nutrition Intake: Greater than 75% estimated energy needs (w/ BID ONS) Dosing Weight: 78.2 kg (172 lb 6.4 oz) Dosing Weight Type: [place] body weight Estimated kilocalorie needs: 5643-4944 Calorie Calculation Method: 25-30 kcals/kg Estimated protein needs (grams): 78-93 Grams protein determined by: 1.0 - 1.2 g/kg Diet Orders (From admission, onward) Start Ordered 07/06/24 1345 DIET SUPPLEMENTS START NOW Question Answer Comment Supplement 1 MIGHTY SHAKE REDUCED SUGAR VANILLA Supplement 1 Frequency BREAKFAST Supplement 2 MIGHTY SHAKE REDUCED SUGAR STRAWBERRY BANANA Supplement 2 Frequency DINNER 07/06/24 1336 07/05/24 1530 DIET REGULAR START NOW 07/05/24 1524 Anthropometrics: Height: 180.3 cm (5' 11) Weight: 95.1 kg (209 lb 10.5 oz) Body mass index is 29.24 kg/m?. Weight Change: Clinically significant weight loss MNT Billing: $ Reassessment: 1-15 minutes SIGNATURE: Min Andrews RD PATIENT NAME: Nick Arora DATE: July 13, 2024 TIME: 10:10 AM THERAPY NT Observed: 07/13/2024 8:20 AM Status: COMPLETED Source: [facility] HNO ID: [id number] Author: ESTRELLA MORRISON OTR/[place] Service: Occupational Therapy Author Type: Occupational Therapist Type: Therapy (PT/OT/Speech/Resp) Filed: 07/13/2024 08:22 Note Text: Summary: OT discharge recommendations OT Discharge Instructions The OT team at [facility] has this list of discharge instructions specific to your home going needs. Your anticipated discharge date is 07/13/24 from Occupational therapy. Please share these discharge instructions with family as well as any care providers coming to your home to assist with the continuity of your care. Weight Bearing precautions: Weight bearing as tolerated to Left leg Precautions: Knee: No kneeling, no twisting, keep knee in line with your toes and fall risk Recommended equipment for home: [employer], Dressing stick, Sock Aid, Walker bag/tray, and continued use of walker, shower chair and grab bars. Additional instructions: 24 hour assistance is recommended, Complete lower body bathing and dressing using adaptive equipment, When getting dressed, put your weaker side in first, then the stronger side, Do not attempt to get in/out of the tub until instructed by home therapist, Have assist with meals, housework and laundry, and Continue to complete upper body exercises for strengthening Thank you for entrusting your care to us. If you have questions regarding OT please contact the OT team at [phone]. Rola Stevens OT Estrella Morrison OT Nina Gonsalez OT Ayleen Sánchez OT Angelita Nicole [facility] Observed: 07/13/2024 7:59 AM Status: COMPLETED Source: [facility] HNO ID: [id number] Author: TERRA PEDERSEN, JASON Service: Nursing Author Type: Registered Nurse Type: Nursing Progress Note Filed: 07/13/2024 08:19 Note Text: Patient resting quietly in bed. All treatments and procedures were explained. Informed patient that he is an early up for PT this morning around 8:45 am. Pt verbalized understanding. Patient requesting pain med this morning. Will medicate for pain with am meds. No other questions or concerns were voiced at this time. SOCIAL WORK Observed: 07/12/2024 5:05 PM Status: COMPLETED Source: [facility] HNO ID: [id number] Author: LEIA GODWIN LSW Service: Social Work Author Type: Clinician Oncology Type: Social Work Filed: 07/12/2024 17:06 Note Text: Summary: [facility] SOCIAL WORK PROGRESS NOTE Name: Nick Arora Patient states his daughter doesn't want him to have the agency that sister in law works for, Patient agreeable to let SW send other referrals. Signature: ALPA Black Date: July 12, 2024 Time: 5:05 PM THERAPY NT Observed: 07/12/2024 4:01 PM Status: COMPLETED Source: [facility] HNO ID: [id number] Author: HILARY REESE PT Service: Physical Therapy Author Type: Tug Hand Type: Therapy (PT/OT/Speech/Resp) Filed: 07/12/2024 16:18 Note Text: Attestation signed by Hilary Reese PT at 07/12/2024 4:18 PM I reviewed and agree with the documentation corresponding to this therapy visit. SIGNATURE: Hilary Reese PT DATE: July 12, 2024 TIME: 4:18 PM Physical Therapy Halfway Facility Treatment Summary SERVICE DATE: 07/12/2024 SERVICE TIME: 1459 to 1533 ROOM: [place] [address] PT 6 Clicks Score: 23 DISCHARGE RECOMMENDATIONS Home PT Recommended Discharge Disposition Comments: Home PT with 24/7 supervision from spouse, but not physical assist Anticipated Discharge Needs: Family Training, Supervision at Home Recommended Discharge Equipment: To Be Determined GOALS Patient will demonstrate progress with functional mobility to allow safe discharge to home with available support and/or physical assistance. Able to Perform HEP with: Independent Rolling with: Modified Independent Transfer Supine to/from Sit with: Modified Independent Transfer Sit to/from Stand with: Supervision Ambulate with: Supervision Distance: 150+ Device: Wheeled Walker ROM: L knee 115 flex. WNL extension Goal: 10 MWT > 0.75 m/s Rehab Potential: Good Progress Toward Goals: Progressing as expected ASSESSMENT Response to Therapy Interventions: Good Participation in Activities Patient tolerates session well demonstrating some fatigue with standing exercises some he requires a short seated rest break before walking back to his room. Patient states that he feels he is ready to go home. Plan for Next Visit: (d/c) PRECAUTIONS Fall Risk, Total Knee Replacement, Weight Bearing Restrictions L TKA and WBAT, MIRANDA tyson, fall risk, Parkinson's Left Lower Extremity Weight Bearing Status: WBAT SUBJECTIVE I'm just tired FUNCTIONAL STATUS Bed Mobility Rolling: Supervision Supine To Sit: Stand By Assistance (HOB slightly elevated; use of left handrail) Sit to Supine: Supervision Scooting: Stand By Assistance Transfers Sit To Stand: Stand By Assistance Stand To Sit: Stand By Assistance Bed to Chair Contact Guard Assistance Bed To Chair Transfer Type: Stepping Bed To Chair Transfer Equipment: Gait Belt, Wheeled Walker Gait Stand By Assistance Gait Device: Wheeled Walker General Deviations/Observations: Antalgic gait, Margareth decreased, Non-functional gait speed, Shuffling Gait, Step length decreased Gait Distance (feet): 70 x 2 Stairs Stand By Assistance Stairs Device: Rail (bilateral) Number of Stairs: 4 CURRENT HOSPITAL COURSE Patient is a 64 year old male presenting from [facility] from 07/03-07/05 for YUMIKO, hypotension, WBC of 24, distended gallbladder with mild wall thickening per CT abdomen. Conley removed during stay. Recent elective L TKA 06/22 at [facility]. Patient now presents motivated to return to home setting with 27/04 supervision and assist from spouse. Relevant Past Medical History: HTN, HFrEF, T2DM, Parkinson's disease, Possible stroke per daughter, L TKA 06/22/24; HOME LIVING Patient Lives With: Spouse (FIrst floor apartment) Assistance Available: 24-Hour (spouse cannot physically assist due to LBP) Entry To Home: No Stairs Number Of Stairs To Bed/Bath: 0 Tub/Shower Type: tub shower bench Laundry: same level- spouse completes Equipment Owned: Commode- 3 in 1, Extended Tub Bench, Walker- Wheeled, Other: See Comment (transport chair) PRIOR FUNCTIONAL LEVEL Required Assistance Assistance Required With: Medication Management, Shopping, Self Care Pt was GA with mobility; limited distances d/t pain in knee; pt would use cart in grocery store, no AD in house; Pt typically sleeps in recliner. He required assist w/ bathing and LB dressing; Spouse does most meals, laundry and cleaning; +driving Per chart, pt and spouse have hoarding tendencies so there is limited space in home. Spouse is 80 y/o and unable to physically assist pt. One fall at home, no injuries. Diagnosed with Parkinson's February 2024 Independent with medication with diffculty THERAPY DIAGNOSIS Reduced mobility-other, Muscle Weakness (generalized), Difficulty walking-musculoskeletal TREATMENT INTERVENTIONS Therapeutic Exercise (65638), Gait Training (94480) Timed Code Treatment (minutes): 34 Skilled Treatment Time (minutes): 34 EXERCISE Exercises Exercise: nustep LE 10 9 UE lvl 4 10 minutes,lateral stepping along parallel bar 4x, standing heel/toe raises x20, standing december x20 TRAINING AND EDUCATION PROVIDED Exercise Program, Expected Functional Level, Gait Pattern, Reduction of Deviations, Discharge Planning, Stair Navigation THERAPEUTIC SKILLS USED Activity Dosing, Cues for Sequencing/Proper Technique for Activity, Cuing Verbal, Cuing Visual PLAN PT Frequency: (7x 7 days) Treatment Interventions: Education, Self Care / Home Management, Energy Conservation Training, Joint Mobility, Strengthening, Functional Mobility Training, Balance Training, Neuromuscular Re-education, Wound Care Management, Modalities, Edema Management, Pain Management SIGNATURE: Sam Hines PTA PATIENT NAME: Nick Arora DATE: July 12, 2024 TIME: 4:01 PM THERAPY NT Observed: 07/12/2024 1:39 PM Status: COMPLETED Source: [facility] HNO ID: [id number] Author: AYLEEN SÁNCHEZ OT/[place] Service: ? Author Type: Occupational Therapist Type: Therapy (PT/OT/Speech/Resp) Filed: 07/12/2024 13:39 Note Text: Occupational Therapy Halfway Facility Treatment Summary SERVICE DATE: 07/12/2024 SERVICE TIME: 1034 to 1108 ROOM: [place] [address] OT 6 Clicks Score: 20 DISCHARGE RECOMMENDATIONS Home OT Recommended Discharge Disposition Comments: Pt states spouse can assist with meals and light ADL tasks; home health recommended upon discharge Anticipated Discharge Needs: Family Training, Supervision at Home Recommended Discharge Equipment: ADL Kit, Walker bag/basket, To Be Determined GOALS Patient will demonstrate progress with self-care, cognitive and/or coping needs identified to allow safe discharge to home with available support and/or physical assistance. Lower Body Bathing with: Stand By Assistance Lower Body Dressing with: Stand By Assistance Toilet Hygiene with: Stand By Assistance Chair Transfer with: Stand By Assistance Toilet Transfer with: Stand By Assistance Tub Transfer with: Contact Guard Assistance Tolerate (minutes of functional activity): 50 Functional Activity with: Stand By Assistance Kitchen Mobility Tasks with: Stand By Assistance Progress Toward Goals: Progressing as expected Rehab Potential: Good ASSESSMENT Response to Therapy Interventions: Good Participation in Activities Pt practices tub transfer and bed mobility from flat bed no rails. Reviewed and added additional instruction on safe trasnport of items in home. Pt reports that his is a hoarder and clutters things. His daughter is coming up to clean up the house with her to prepare for him returning home. Recommended that all areas that he uses be decluttered and safe. Plan for Next Visit: Bed Mobility, Chair/Commode Transfer Training, Dressing Training, Energy Conservation, Grooming Training, Sit to Stand Transfers, Standing Balance, Standing Tolerance, Toileting Instruction PRECAUTIONS Fall Risk, Total Knee Replacement, Weight Bearing Restrictions L TKA and WBAT, MIRANDA hose, fall risk, Parkinson's Left Lower Extremity Weight Bearing Status: WBAT SUBJECTIVE Pt states he did not sleep well last night and planned to sleep after OT. FUNCTIONAL STATUS Activities of Daily Living Assist Level Additional Information Feeding Independent Grooming Stand By Assistance Bathing Upper Body Set Up Bathing Lower Body Minimal Assistance, Additional Information Dressing Upper Body Independent Dressing Lower Body Set Up, Stand By Assistance Toileting Stand By Assistance, Additional Information, Minimal Assistance Instrumental Activities of Daily Living Assist Level Additional Information Meal/Beverage Prep Minimal Assistance, Additional Information reviewed techniques pt learned during kitchen yesterday. good retension and added bridging and leap frogging items and importance of having a walker bag/basket/tray Cleaning Moderate Assistance Laundry Moderate Assistance Medication Management with Strategies Mobility Assist Level Additional Information Bed Mobility Supine To Sit: Supervision flat bed no rail Sit To Supine: Supervision, Additional Information flat bed no rail Sit to Stand Stand By Assistance, Supervision, Additional Information close supervision Stand to Sit Stand By Assistance, Supervision, Additional Information close supervision Bed to Chair Stand By Assistance Bed To Chair Transfer Type: Stepping Bed To Chair Transfer Equipment: Wheeled Walker, Gait Belt Toilet/Commode Stand By Assistance Shower Contact Guard Assistance Functional Mobility Stand By Assistance Functional Mobility Device: Wheeled Walker CURRENT HOSPITAL COURSE Patient is a 64 year old male presenting from [facility] from 07/03-07/05 for YUMIKO, hypotension, WBC of 24, distended gallbladder with mild wall thickening per CT abdomen. Conley removed during stay. Recent elective L TKA 06/22 at [facility]. Patient now presents motivated to return to home setting with 27/04 supervision and assist from spouse. Relevant Past Medical History: HTN, HFrEF, T2DM, Parkinson's disease, Possible stroke per daughter, L TKA 06/22/24; HOME LIVING Patient Lives With: Spouse (FIrst floor apartment) Assistance Available: 24-Hour (spouse cannot physically assist due to LBP) Entry To Home: No Stairs Number Of Stairs To Bed/Bath: 0 Tub/Shower Type: tub shower bench Laundry: same level- spouse completes Equipment Owned: Commode- 3 in 1, Extended Tub Bench, Walker- Wheeled, Other: See Comment (transport chair) PRIOR FUNCTIONAL LEVEL Required Assistance Assistance Required With: Medication Management, Shopping, Self Care Pt was GA with mobility; limited distances d/t pain in knee; pt would use cart in grocery store, no AD in house; Pt typically sleeps in recliner. He required assist w/ bathing and LB dressing; Spouse does most meals, laundry and cleaning; +driving Per chart, pt and spouse have hoarding tendencies so there is limited space in home. Spouse is 80 y/o and unable to physically assist pt. One fall at home, no injuries. Diagnosed with Parkinson's February 2024 Independent with medication with diffculty Baseline Cognition: Oriented to self, Oriented to place, Oriented to time, Oriented to situation COGNITION THERAPY DIAGNOSIS Reduced mobility-other, Decreased activities of daily living (ADL), Muscle Weakness (generalized), Unsteadiness on feet TREATMENT INTERVENTIONS Therapeutic Exercise (04365) Timed Code Treatment (minutes): 34 Skilled Treatment Time (minutes): 34 EXERCISE None performed this session TRAINING AND EDUCATION PROVIDED Assistive Device Use, Adaptive Equipment/DME, Bed Mobility, Energy Conservation, Precautions/Restrictions, IADLs/Home Management, Transfer - Sit to Stand, Transfer - Bed to Chair, Transfer - Tub Shower THERAPEUTIC SKILLS USED Activity Dosing, Cues for Sequencing/Proper Technique for Activity, Repetitive Task Learning, Therapeutic Use of Self PLAN OT Frequency: 3 Times Per Week (33-6 times per week x 7-10 days) Treatment Interventions: Education, Self Care/Home Management, Energy Conservation Training, Strengthening, Functional Mobility Training, Balance Training SIGNATURE: Ayleen Sánchez OT/[place] PATIENT NAME: Nick Arora DATE: July 12, 2024 TIME: 1:39 PM THERAPY NT Observed: 07/12/2024 10:26 AM Status: COMPLETED Source: [facility] HNO ID: [id number] Author: SAM HINES PTA Service: Physical Therapy Author Type: Tug Hand Type: Therapy (PT/OT/Speech/Resp) Filed: 07/12/2024 10:26 Note Text: Attestation signed by Bridgett Vidales PT, DPT at 07/12/2024 12:20 PM I reviewed and agree with the documentation corresponding to this therapy visit. SIGNATURE: Bridgett Vidales PT, DPT DATE: July 12, 2024 TIME: 12:20 PM Physical Therapy Halfway Facility Treatment Summary SERVICE DATE: 07/12/2024 SERVICE TIME: 944 to 1016 ROOM: [place] [address] PT 6 Clicks Score: 23 DISCHARGE RECOMMENDATIONS Home PT Recommended Discharge Disposition Comments: Home PT with 27/04 supervision from spouse, but not physical assist Anticipated Discharge Needs: Family Training, Supervision at Home Recommended Discharge Equipment: To Be Determined GOALS Patient will demonstrate progress with functional mobility to allow safe discharge to home with available support and/or physical assistance. Able to Perform HEP with: Independent Rolling with: Modified Independent Transfer Supine to/from Sit with: Modified Independent Transfer Sit to/from Stand with: Supervision Ambulate with: Supervision Distance: 150+ Device: Wheeled Walker ROM: L knee 115 flex. WNL extension Goal: 10 MWT > 0.75 m/s Rehab Potential: Good Progress Toward Goals: Progressing as expected ASSESSMENT Response to Therapy Interventions: Good Participation in Activities Patient doing well with his mobility however he continues to demonstarte left quad weakness. Plan for Next Visit: Exercise Instruction/Handout, Standing Tolerance PRECAUTIONS Fall Risk, Total Knee Replacement, Weight Bearing Restrictions L TKA and WBAT, MIRANDA hose, fall risk, Parkinson's Left Lower Extremity Weight Bearing Status: WBAT SUBJECTIVE I gotta get it loosened up FUNCTIONAL STATUS Bed Mobility Rolling: Supervision Supine To Sit: Stand By Assistance (HOB slightly elevated; use of left handrail) Sit to Supine: Supervision Scooting: Stand By Assistance Transfers Sit To Stand: Stand By Assistance Stand To Sit: Stand By Assistance Bed to Chair Contact Guard Assistance Bed To Chair Transfer Type: Stepping Bed To Chair Transfer Equipment: Gait Belt, Wheeled Walker Gait Stand By Assistance Gait Device: Wheeled Walker General Deviations/Observations: Antalgic gait, Margareth decreased, Non-functional gait speed, Shuffling Gait, Step length decreased, UE weight bearing on assistive device excessive Gait Distance (feet): 70 x 2 Stairs Stand By Assistance Stairs Device: Rail Number of Stairs: 8 CURRENT HOSPITAL COURSE Patient is a 64 year old male presenting from [facility] from 07/03-07/05 for YUMIKO, hypotension, WBC of 24, distended gallbladder with mild wall thickening per CT abdomen. Conley removed during stay. Recent elective L TKA 06/22 at [facility]. Patient now presents motivated to return to home setting with 27/04 supervision and assist from spouse. Relevant Past Medical History: HTN, HFrEF, T2DM, Parkinson's disease, Possible stroke per daughter, L TKA 06/22/24; HOME LIVING Patient Lives With: Spouse (FIrst floor apartment) Assistance Available: 24-Hour (spouse cannot physically assist due to LBP) Entry To Home: No Stairs Number Of Stairs To Bed/Bath: 0 Tub/Shower Type: tub shower bench Laundry: same level- spouse completes Equipment Owned: Commode- 3 in 1, Extended Tub Bench, Walker- Wheeled, Other: See Comment (transport chair) PRIOR FUNCTIONAL LEVEL Required Assistance Assistance Required With: Medication Management, Shopping, Self Care Pt was GA with mobility; limited distances d/t pain in knee; pt would use cart in grocery store, no AD in house; Pt typically sleeps in recliner. He required assist w/ bathing and LB dressing; Spouse does most meals, laundry and cleaning; +driving Per chart, pt and spouse have hoarding tendencies so there is limited space in home. Spouse is 80 y/o and unable to physically assist pt. One fall at home, no injuries. Diagnosed with Parkinson's February 2024 Independent with medication with diffculty THERAPY DIAGNOSIS Reduced mobility-other, Muscle Weakness (generalized), Difficulty walking-musculoskeletal TREATMENT INTERVENTIONS Gait Training (02805), Therapeutic Exercise (38170) Timed Code Treatment (minutes): 32 Skilled Treatment Time (minutes): 32 EXERCISE Exercises Exercise: Nustep seat 9 UE 9 lvl 4 10 minutes, step ups x10, LAQ x20 LLE, SAQ x10 LLE, SLR x10 LLE, STS x10 TRAINING AND EDUCATION PROVIDED Exercise Program, Expected Functional Level, Benefits of In-Hospital Mobility THERAPEUTIC SKILLS USED Activity Dosing, Cuing Verbal, Cues for Sequencing/Proper Technique for Activity, Cuing Visual PLAN PT Frequency: (7x 7 days) Treatment Interventions: Education, Self Care / Home Management, Energy Conservation Training, Joint Mobility, Strengthening, Functional Mobility Training, Balance Training, Neuromuscular Re-education, Wound Care Management, Modalities, Edema Management, Pain Management SIGNATURE: Sam Hines PTA PATIENT NAME: Nick Arora DATE: July 12, 2024 TIME: 10:26 AM BAS METAB 2000 PNL SERPL Collected: 05/2024 5:35 AM Status: F Source: [facility] Order Comment: Specimen Type : BLOOD SPECIMEN Ordering Facility: [facility] Address: [address] [place] [address] TYPE CODE TESTS RESULT OUT OF RANGE REFERENCE UNITS LAB 2345-7(LOINC) Glucose SerPl-[facility] 118 High 74-99 mg/dL Result Comment: The [place] Diabetes Association (ADA) provides guidance for cutoff values for fasting glucose and random glucose. The ADA defines fasting as no caloric intake for at least 8 hours. Fasting plasma glucose results between 100 to 125 mg/dL indicate increased risk for diabetes (prediabetes). Fasting plasma glucose results greater than or equal to 126 mg/dL meet the criteria for diagnosis of diabetes. In the absence of unequivocal hyperglycemia, results should be confirmed by repeat testing. In a patient with classic symptoms of hyperglycemia or hyperglycemic crisis, random plasma glucose results greater than or equal to 200 mg/dL meet the criteria for diagnosis of diabetes. Reference: Standards of Medical Care in Diabetes 2016, [employer] Diabetes Association. Diabetes Care. 2016.39(Suppl 1). LAB 3094-0(LOINC) BUN SerPl-mCnc 19 9-24 mg/ dL LAB 2160-0(LOINC) Creat SerPl-mCnc 1.30 High 0.73-1.22 mg/dL LAB 2951-2(LOINC) Sodium SerPl-sCnc 139 136-144 mmol/L LAB 2823-3(LOINC) Potassium SerPl-sCnc 4.1 3.7-5.1 mmol/L LAB 2075-0(LOINC) Chloride SerPl-sCnc 105 98-107 mmol/L LAB 2028-9(LOINC) CO2 SerPl-sCnc 25 22-30 mmo l/L LAB 81447-8(LOINC) Anion Gap SerPl-sCnc 9 8-15 mmol/L LAB 00131-2(LOINC) Calcium SerPl-mCnc 9.4 8.5-10.2 mg/dL LAB 62587-6(LOINC) Creatinine + eGFR Pnl SerPlBld 61 >=60 mL/min/1. 73m??? Result Comment: Estimated Gl omerular Filtration Rate (eGFR) is calculated using the 2020 CKD-EPI creatinine equation. This equation utilizes serum creatinine, sex, and age as parameters. The creatinine assay has traceable calibration to isotope dilution-mass spectrometry. Refer to KDIGO guidelines for clinical interpretation. In patients with unstable renal function, e.g. those with acute kidney injury, the eGFR may not accurately reflect actual GFR. Performed By: #### 90044-5, 62066-7 #### [facility] CLIA [id number] [address] [place] [address] [place] [facility]NESIUM SERPL-[facility] Collected: 07/12/2024 5:35 AM S tatus: F Source: [facility] Order Comment: Specimen Type : BLOOD SPECIMEN Ordering Facility: [facility] Address: [address] [place], [place] [id number] TYPE CODE TESTS RESULT OUT OF RANGE REFERENCE UNITS LAB 42649-1([facility]) Magnesium SerPl-mCnc 2.0 1.7-2.3 mg/dL Performed By: #### 88325-8, 69590-4 #### [facility] CLIA [id number] [address] [place] [address] [facility] CBC PNL BLD AUTO Collected: 07/12/2024 5:35 AM Statu s: F Source: [facility] Order Comment: Specimen Type : BLOOD SPECIMEN Ordering Facility: [facility] Address: [address] [place] [address] TYPE CODE TESTS RESULT OUT OF RANGE REFERENCE UNITS LAB 6690-2(LOINC) WBC # Bld Auto 7.33 3.70-11.00 k/uL LAB 789-8(LOINC) RBC # Bld Auto 3.36 Low 4.20-6.00 m/ uL LAB 718-7(LOINC) Hgb Bld-mCnc 10.2 Low 13.0-17.0 g/dL LAB 4544-3(LOINC) Hct VFr Bld Auto 32.0 Low 39.0-51.0 % LAB 787-2(LOINC) MCV RBC Auto 95.2 80.0-100.0 fL LAB 785-6(LOINC) MCH RBC Qn Auto 30.4 26.0-34.0 pg LAB 786-4(LOINC) MCHC RBC Auto-mCnc 31.9 30.5-36.0 g/dL LAB 51135-3(LOINC) RDW RBC-Rto 13.2 11.5-15.0 % LAB 777-3(LOINC) Platelet # Bld Auto 452 High 150-400 k/uL LAB 72206-2([facility]) PMV Bld Auto 8.5 Low 9.0-12.7 fL Performed By: #### 84465-6 # ### [facility] CLIA [id number] [address] [place] [address] [facility] SOCIAL WORK Observed: 07/11/2024 4:26 PM Status: COMPLETED Source: [facility] HNO ID: [id number] Author: LEIA GODWIN LSW Service: Social Work Author Type: Clinician Oncology Type: Social Work Filed: 07/11/2024 16:27 Note Text: Summary: NOM[facility] SOCIAL WORK PROGRESS NOTE Name: iNck Arora Received NOM[facility] with LCD of 07/13. Patient signed and [facility] emailed to [facility] to home with [facility]. Signature: ALPA Black Date: July 11, 2024 Time: 4:26 PM THERAPY NT Observed: 07/11/2024 2:36 PM Status: COMPLETED Source: [facility] HNO ID: [id number] Author: LARY BOB PT Service: Physical Therapy Author Type: Tug Hand Type: Therapy (PT/OT/Speech/Resp) Filed: 07/11/2024 17:19 Note Text: Attestation signed by Lary Bob PT at 07/11/2024 5:19 PM I reviewed and agree with the documentation corresponding to this therapy visit. SIGNATURE: Lary Bob PT DATE: July 11, 2024 TIME: 5:18 PM Physical Therapy Halfway Facility Treatment Summary SERVICE DATE: 07/11/2024 SERVICE TIME: 1300 to 1350 ROOM: [place] [address] PT 6 Clicks Score: 24 DISCHARGE RECOMMENDATIONS Home PT Recommended Discharge Disposition Comments: Home PT with 27/04 supervision from spouse, but not physical assist Anticipated Discharge Needs: Family Training, Supervision at Home Recommended Discharge Equipment: To Be Determined GOALS Patient will demonstrate progress with functional mobility to allow safe discharge to home with available support and/or physical assistance. Able to Perform HEP with: Independent Rolling with: Modified Independent Transfer Supine to/from Sit with: Modified Independent Transfer Sit to/from Stand with: Supervision Ambulate with: Supervision Distance: 150+ Device: Wheeled Walker ROM: L knee 115 flex. WNL extension Goal: 10 MWT > 0.75 m/s Rehab Potential: Good Progress Toward Goals: Progressing as expected ASSESSMENT Response to Therapy Interventions: Good Participation in Activities Pataient continues do demonstrate weakness in the quad ROM is good. Plan for Next Visit: Exercise Instruction/Handout, Standing Balance, Standing Tolerance (quad strengthening) PRECAUTIONS Fall Risk, Total Knee Replacement, Weight Bearing Restrictions L TKA and WBAT, MIRANAD hose, fall risk, Parkinson's Left Lower Extremity Weight Bearing Status: WBAT SUBJECTIVE patient reports fatigue really a good session this AM rated pain 6/10 FUNCTIONAL STATUS Bed Mobility Rolling: Supervision Supine To Sit: Stand By Assistance (elevate head of bed use of rails) Sit to Supine: Supervision Scooting: Stand By Assistance Transfers Sit To Stand: Stand By Assistance Stand To Sit: Stand By Assistance Bed to Chair Contact Guard Assistance Bed To Chair Transfer Type: Stepping Bed To Chair Transfer Equipment: Gait Belt, Wheeled Walker Gait Stand By Assistance Gait Device: Wheeled Walker Gait Distance (feet): 100 ft Stairs Stand By Assistance Stairs Device: Rail Number of Stairs: 8 CURRENT HOSPITAL COURSE Patient is a 64 year old male presenting from [facility] from 07/03-07/05 for YUMIKO, hypotension, WBC of 24, distended gallbladder with mild wall thickening per CT abdomen. Conley removed during stay. Recent elective L TKA 06/22 at [facility]. Patient now presents motivated to return to home setting with 27/04 supervision and assist from spouse. Relevant Past Medical History: HTN, HFrEF, T2DM, Parkinson's disease, Possible stroke per daughter, L TKA 06/22/24; HOME LIVING Patient Lives With: Spouse (FIrst floor apartment) Assistance Available: 24-Hour (spouse cannot physically assist due to LBP) Entry To Home: No Stairs Number Of Stairs To Bed/Bath: 0 Tub/Shower Type: tub shower bench Laundry: same level- spouse completes Equipment Owned: Commode- 3 in 1, Extended Tub Bench, Walker- Wheeled, Other: See Comment (transport chair) PRIOR FUNCTIONAL LEVEL Required Assistance Assistance Required With: Medication Management, Shopping, Self Care Pt was GA with mobility; limited distances d/t pain in knee; pt would use cart in grocery store, no AD in house; Pt typically sleeps in recliner. He required assist w/ bathing and LB dressing; Spouse does most meals, laundry and cleaning; +driving Per chart, pt and spouse have hoarding tendencies so there is limited space in home. Spouse is 80 y/o and unable to physically assist pt. One fall at home, no injuries. Diagnosed with Parkinson's February 2024 Independent with medication with diffculty THERAPY DIAGNOSIS Reduced mobility-other, Muscle Weakness (generalized), Difficulty walking-musculoskeletal TREATMENT INTERVENTIONS Therapeutic Exercise (36659), Therapeutic Activity (55199), Gait Training (37847) Timed Code Treatment (minutes): 50 Skilled Treatment Time (minutes): 50 EXERCISE Exercises Exercise Performed: Ankle Pumps, Quad Sets, Glut Sets, Heel Slides, SAQ, SLR, Hip Abduction (nu-step L3 12 min) Ankle Pumps (number of reps): 10 Quad Sets (number of reps): 10 Glut Sets (number of reps): 10 Heel Slides (number of reps): 10 SAQ (number of reps): assist required 10 SLR (number of reps): assist required 10 Hip Abduction (number of reps): 10 Exercise: Nu-step l2 12 min. slant board stretchin standing ex. ABD,SLR,marchiing,side stepping TRAINING AND EDUCATION PROVIDED Assistive Device Use, Exercise Program, Gait Pattern, Reduction of Deviations, Expected Functional Level, Precautions/Restrictions, Transfers THERAPEUTIC SKILLS USED Activity Dosing, Cues for Sequencing/Proper Technique for Activity, Cuing Verbal, Cuing Visual, Postural Alignment Correction PLAN PT Frequency: (7x 7 days) Treatment Interventions: Education, Self Care / Home Management, Energy Conservation Training, Joint Mobility, Strengthening, Functional Mobility Training, Balance Training, Neuromuscular Re-education, Wound Care Management, Modalities, Edema Management, Pain Management SIGNATURE: Nancie Christine PTA PATIENT NAME: Nick Arora DATE: July 11, 2024 TIME: 2:37 PM THERAPY NT Observed: 07/11/2024 12:29 PM Status: COMPLETED Source: [facility] HNO ID: [id number] Author: FLORA AYALA OTA/L Service: ? Author Type: Alignment Specialist Type: Therapy (PT/OT/Speech/Resp) Filed: 07/11/2024 12:29 Note Text: Attestation signed by Ayleen Sánchez OT/L at 07/11/2024 2:50 PM Collaboration with MARY occurred and documentation corresponding to this therapy visit was reviewed. CHANDLER Mejia Occupational Therapy Halfway Facility Treatment Summary SERVICE DATE: 07/11/2024 SERVICE TIME: 1030 to 1126 ROOM: [place] [address] OT 6 Clicks Score: 20 DISCHARGE RECOMMENDATIONS Home OT Recommended Discharge Disposition Comments: Pt states spouse can assist with meals and light ADL tasks; home health recommended upon discharge Anticipated Discharge Needs: Family Training, Supervision at Home Recommended Discharge Equipment: ADL Kit, Walker bag/basket, To Be Determined GOALS Patient will demonstrate progress with self-care, cognitive and/or coping needs identified to allow safe discharge to home with available support and/or physical assistance. Lower Body Bathing with: Stand By Assistance Lower Body Dressing with: Stand By Assistance Toilet Hygiene with: Stand By Assistance Chair Transfer with: Stand By Assistance Toilet Transfer with: Stand By Assistance Tub Transfer with: Contact Guard Assistance Tolerate (minutes of functional activity): 50 Functional Activity with: Stand By Assistance Kitchen Mobility Tasks with: Stand By Assistance Progress Toward Goals: Progressing as expected Rehab Potential: Good ASSESSMENT Response to Therapy Interventions: Good Participation in Activities, Improved Tolerance for Activity Pt completing kitchen mobility this day with good balance reaching down to lowest drawers/cabinets, gathering items, filling pots with water and managing FWW throughout. Pt would benefit from assist meal prep and cleaning d/t walker use and recovery in order to reduce fall risk and increase safety in home management. Pt verbalizing understanding and agreement to have additional assist for these aspects of daily routines upon home going. Plan for Next Visit: Bed Mobility, Chair/Commode Transfer Training, Dressing Training, Energy Conservation, Grooming Training, Sit to Stand Transfers, Standing Balance, Standing Tolerance, Toileting Instruction PRECAUTIONS Fall Risk, Total Knee Replacement, Weight Bearing Restrictions L TKA and WBAT, MIRANDA hose, fall risk, Parkinson's Left Lower Extremity Weight Bearing Status: WBAT SUBJECTIVE Pt agreeable to OT. Reporting he may stay home with spouse vs traveling to stay with dtr in [facility]. Pt reporting his goal is to be able to go to the bathroom on his own upon d/c. FUNCTIONAL STATUS Activities of Daily Living Assist Level Additional Information Feeding Independent Grooming Stand By Assistance Bathing Upper Body Set Up Bathing Lower Body Minimal Assistance, Additional Information Dressing Upper Body Independent Dressing Lower Body Set Up, Stand By Assistance donning/doffing shorts with effort and LHR use to thread. Toileting Stand By Assistance, Additional Information, Minimal Assistance simulated toileting:able to complete clothing management and transfers with SBA. May require up to Margot for posterior hygiene, standing stability, and gathering needed supplies. Instrumental Activities of Daily Living Assist Level Additional Information Meal/Beverage Prep Minimal Assistance Cleaning Moderate Assistance Laundry Moderate Assistance Medication Management with Strategies Mobility Assist Level Additional Information Bed Mobility Supine To Sit: Stand By Assistance use of rail, flat bed Sit To Supine: Stand By Assistance Sit to Stand Stand By Assistance Stand to Sit Stand By Assistance Bed to Chair Stand By Assistance Bed To Chair Transfer Type: Stepping Bed To Chair Transfer Equipment: Wheeled Walker, Gait Belt Toilet/Commode Stand By Assistance Shower Contact Guard Assistance Functional Mobility Stand By Assistance Functional Mobility Device: Wheeled Walker CURRENT HOSPITAL COURSE Patient is a 64 year old male presenting from [facility] from 07/03-07/05 for YUMIKO, hypotension, WBC of 24, distended gallbladder with mild wall thickening per CT abdomen. Conley removed during stay. Recent elective L TKA 06/22 at [facility]. Patient now presents motivated to return to home setting with 27/04 supervision and assist from spouse. Relevant Past Medical History: HTN, HFrEF, T2DM, Parkinson's disease, Possible stroke per daughter, L TKA 06/22/24; HOME LIVING Patient Lives With: Spouse (FIrst floor apartment) Assistance Available: 24-Hour (spouse cannot physically assist due to LBP) Entry To Home: No Stairs Number Of Stairs To Bed/Bath: 0 Tub/Shower Type: tub shower bench Laundry: same level- spouse completes Equipment Owned: Commode- 3 in 1, Extended Tub Bench, Walker- Wheeled, Other: See Comment (transport chair) PRIOR FUNCTIONAL LEVEL Required Assistance Assistance Required With: Medication Management, Shopping, Self Care Pt was GA with mobility; limited distances d/t pain in knee; pt would use cart in grocery store, no AD in house; Pt typically sleeps in recliner. He required assist w/ bathing and LB dressing; Spouse does most meals, laundry and cleaning; +driving Per chart, pt and spouse have hoarding tendencies so there is limited space in home. Spouse is 80 y/o and unable to physically assist pt. One fall at home, no injuries. Diagnosed with Parkinson's February 2024 Independent with medication with diffculty Baseline Cognition: Oriented to self, Oriented to place, Oriented to time, Oriented to situation COGNITION THERAPY DIAGNOSIS Reduced mobility-other, Decreased activities of daily living (ADL), Muscle Weakness (generalized), Unsteadiness on feet TREATMENT INTERVENTIONS Therapeutic Activity (31707), Self Chcf Management (55336) Timed Code Treatment (minutes): 56 Skilled Treatment Time (minutes): 56 EXERCISE None performed this session TRAINING AND EDUCATION PROVIDED Activity Adaptation/Compensatory Strategies, Adaptive Equipment/DME, Assistive Device Use, Bed Mobility, Benefits of In-Hospital Mobility, Discharge Planning, Energy Conservation, Environmental Modification, Functional Mobility Involving ADLs, Identification of Systems of Support, Insight into Deficits, Life Roles/Routines/Habits, Lower Extremity Dressing, Positioning, Precautions/Restrictions, Role of Occupational Therapy, Safety/Judgment, Sitting Balance to Improve Nash with ADLs/Self-Care, Standing Balance to Improve Nash with ADLs/Self-Care, Toileting , Transfer - Sit to Stand, Transfer - Toilet/Commode THERAPEUTIC SKILLS USED Activity Dosing, Cues for Sequencing/Proper Technique for Activity, Cuing Verbal, Cuing Visual, Physical Assist, Repetitive Task Learning, Teach-Back for Education, Task Analysis Learning, Therapeutic Use of Self PLAN OT Frequency: 3 Times Per Week (33-6 times per week x 7-10 days) Treatment Interventions: Education, Self Care/Home Management, Energy Conservation Training, Strengthening, Functional Mobility Training, Balance Training SIGNATURE: WILFREDO Aparicio PATIENT NAME: Nick Arora DATE: July 11, 2024 TIME: 12:29 PM THERAPY NT Observed: 07/11/2024 10:19 AM Status: COMPLETED Source: [facility] ID: [id number] Author: LARY BOB PT Service: Physical Therapy Author Type: Tug Hand Type: Therapy (PT/OT/Speech/Resp) Filed: 07/11/2024 17:18 Note Text: Attestation signed by Lary Bob PT at 07/11/2024 5:18 PM I reviewed and agree with the documentation corresponding to this therapy visit. SIGNATURE: Lary Bob PT DATE: July 11, 2024 TIME: 5:18 PM Physical Therapy [facility] Treatment Summary SERVICE DATE: 07/11/2024 SERVICE TIME: 0850 to 0940 ROOM: [place] [address] PT 6 Clicks Score: 24 DISCHARGE RECOMMENDATIONS Home PT Recommended Discharge Disposition Comments: Home PT with 27/04 supervision from spouse, but not physical assist Anticipated Discharge Needs: Family Training, Supervision at Home Recommended Discharge Equipment: To Be Determined GOALS Patient will demonstrate progress with functional mobility to allow safe discharge to home with available support and/or physical assistance. Able to Perform HEP with: Independent Rolling with: Modified Independent Transfer Supine to/from Sit with: Modified Independent Transfer Sit to/from Stand with: Supervision Ambulate with: Supervision Distance: 150+ Device: Wheeled Walker ROM: L knee 115 flex. WNL extension Goal: 10 MWT > 0.75 m/s Rehab Potential: Good Progress Toward Goals: Progressing as expected ASSESSMENT Response to Therapy Interventions: Good Participation in Activities Patient demonstrates difficulty with SAQ and SLR noted quad lag Patients ROM is good 115 flex and total extension Plan for Next Visit: Gait Training, Exercise Instruction/Handout (possible DC) PRECAUTIONS Fall Risk, Total Knee Replacement, Weight Bearing Restrictions L TKA and WBAT, MIRANDA hose, fall risk, Parkinson's Left Lower Extremity Weight Bearing Status: WBAT SUBJECTIVE Patient reports 0 pain I didnt sleep all night they finally gave me something to help me sleep. FUNCTIONAL STATUS Bed Mobility Rolling: Supervision Supine To Sit: Stand By Assistance Sit to Supine: Supervision (elevate head of bed use of rails to transfer) Scooting: Stand By Assistance Transfers Sit To Stand: Stand By Assistance Stand To Sit: Stand By Assistance Bed to Chair Contact Guard Assistance Bed To Chair Transfer Type: Stepping Bed To Chair Transfer Equipment: Gait Belt, Wheeled Walker Gait Stand By Assistance Gait Device: Wheeled Walker Gait Distance (feet): 100 ft Stairs Stand By Assistance Stairs Device: Rail Number of Stairs: 8 CURRENT HOSPITAL COURSE Patient is a 64 year old male presenting from [facility] from 07/03-07/05 for YUMIKO, hypotension, WBC of 24, distended gallbladder with mild wall thickening per CT abdomen. Conley removed during stay. Recent elective L TKA 06/22 at [facility]. Patient now presents motivated to return to home setting with 27/04 supervision and assist from spouse. Relevant Past Medical History: HTN, HFrEF, T2DM, Parkinson's disease, Possible stroke per daughter, L TKA 06/22/24; HOME LIVING Patient Lives With: Spouse (FIrst floor apartment) Assistance Available: 24-Hour (spouse cannot physically assist due to LBP) Entry To Home: No Stairs Number Of Stairs To Bed/Bath: 0 Tub/Shower Type: tub shower bench Laundry: same level- spouse completes Equipment Owned: Commode- 3 in 1, Extended Tub Bench, Walker- Wheeled, Other: See Comment (transport chair) PRIOR FUNCTIONAL LEVEL Required Assistance Assistance Required With: Medication Management, Shopping, Self Care Pt was GA with mobility; limited distances d/t pain in knee; pt would use cart in grocery store, no AD in house; Pt typically sleeps in recliner. He required assist w/ bathing and LB dressing; Spouse does most meals, laundry and cleaning; +driving Per chart, pt and spouse have hoarding tendencies so there is limited space in home. Spouse is 80 y/o and unable to physically assist pt. One fall at home, no injuries. Diagnosed with Parkinson's February 2024 Independent with medication with diffculty THERAPY DIAGNOSIS Reduced mobility-other, Muscle Weakness (generalized), Difficulty walking-musculoskeletal TREATMENT INTERVENTIONS Therapeutic Exercise (55700), Gait Training (94122) Timed Code Treatment (minutes): 50 Skilled Treatment Time (minutes): 50 EXERCISE Exercises Exercise Performed: Ankle Pumps, Quad Sets, Glut Sets, Heel Slides, SAQ, SLR, Hip Abduction Ankle Pumps (number of reps): 10 Quad Sets (number of reps): 10 Glut Sets (number of reps): 10 Heel Slides (number of reps): 10 SAQ (number of reps): 10 SLR (number of reps): 10 Hip Abduction (number of reps): 10 Exercise: Nu-step L2 12 min. TRAINING AND EDUCATION PROVIDED Assistive Device Use, Exercise Program, Gait Pattern, Reduction of Deviations, Expected Functional Level, Precautions/Restrictions, Transfers THERAPEUTIC SKILLS USED Activity Dosing, Cues for Sequencing/Proper Technique for Activity, Cuing Verbal, Cuing Visual, Postural Alignment Correction PLAN PT Frequency: (7x 7 days) Treatment Interventions: Education, Self Care / Home Management, Energy Conservation Training, Joint Mobility, Strengthening, Functional Mobility Training, Balance Training, Neuromuscular Re-education, Wound Care Management, Modalities, Edema Management, Pain Management SIGNATURE: Nancie Christine PTA PATIENT NAME: Nick Arora DATE: July 11, 2024 TIME: 10:19 AM NURSING PROG Observed: 07/11/2024 6:49 AM Status: COMPLETED Source: [facility] HNO ID: [id number] Author: CHRIS COLLAZO, RN Service: ? Author Type: Registered Nurse Type: Nursing Progress Note Filed: 07/11/2024 06:52 Note Text: 0030: patient C/O inability to sleep. LIP interventional neuroradiologist Burton Galvin CNP made aware. Orders obtained to give 9 mg PO melatonin for sleep. 0115: 9mg PO Melatonin administered. 0630: Patient admits to getting good sleep from melatonin. Will continue to follow plan of care THERAPY NT Observed: 07/10/2024 12:01 PM Status: COMPLETED Source: [facility] HNO ID: [id number] Author: NANCIE CHRISTINE PTA Service: Physical Therapy Author Type: Tug Hand Type: Therapy (PT/OT/Speech/Resp) Filed: 07/10/2024 12:02 Note Text: Attestation signed by Hilary Reese, PT at 07/10/2024 6:31 PM I reviewed and agree with the documentation corresponding to this therapy visit. SIGNATURE: Hilary Reese, PT DATE: July 10, 2024 TIME: 6:31 PM Physical Therapy [facility] Treatment Summary SERVICE DATE: 07/10/2024 SERVICE TIME: 909 ROOM: [place] [address] PT 6 Clicks Score: 23 DISCHARGE RECOMMENDATIONS Home PT Recommended Discharge Disposition Comments: Home PT with 27/04 supervision from spouse, but not physical assist Anticipated Discharge Needs: Family Training, Supervision at Home Recommended Discharge Equipment: To Be Determined GOALS Patient will demonstrate progress with functional mobility to allow safe discharge to home with available support and/or physical assistance. Able to Perform HEP with: Independent Rolling with: Modified Independent Transfer Supine to/from Sit with: Modified Independent Transfer Sit to/from Stand with: Supervision Ambulate with: Supervision Distance: 150+ Device: Wheeled Walker ROM: L knee 100 flexion,-2 extension Goal: 10 MWT > 0.75 m/s Rehab Potential: Good Progress Toward Goals: Progressing as expected ASSESSMENT Response to Therapy Interventions: Good Participation in Activities able to ambulate without limp alternating foot pattern, continues to require cues up with the good down with the bad on stairs. good progress shown good effort Plan for Next Visit: Gait Training, Exercise Instruction/Handout PRECAUTIONS Fall Risk, Total Knee Replacement, Weight Bearing Restrictions L TKA and WBAT, MIRANDA kamlae, fall risk, Parkinson's Left Lower Extremity Weight Bearing Status: WBAT SUBJECTIVE patient states hes stiff but ook FUNCTIONAL STATUS Bed Mobility Rolling: Supervision Supine To Sit: Stand By Assistance Sit to Supine: Supervision Scooting: Stand By Assistance Transfers Sit To Stand: Stand By Assistance Stand To Sit: Stand By Assistance Bed to Chair Contact Guard Assistance Bed To Chair Transfer Type: Stepping Bed To Chair Transfer Equipment: Gait Belt, Wheeled Walker Gait Stand By Assistance Gait Device: Wheeled Walker Gait Distance (feet): 100 ft Stairs Contact Guard Assistance Stairs Device: Rail Number of Stairs: 8 CURRENT HOSPITAL COURSE Patient is a 64 year old male presenting from [facility] from 07/03-07/05 for YUMIKO, hypotension, WBC of 24, distended gallbladder with mild wall thickening per CT abdomen. Conley removed during stay. Recent elective L TKA 06/22 at [facility]. Patient now presents motivated to return to home setting with 27/04 supervision and assist from spouse. Relevant Past Medical History: HTN, HFrEF, T2DM, Parkinson's disease, Possible stroke per daughter, L TKA 06/22/24; HOME LIVING Patient Lives With: Spouse (FIrst floor apartment) Assistance Available: 24-Hour (spouse cannot physically assist due to LBP) Entry To Home: No Stairs Number Of Stairs To Bed/Bath: 0 Tub/Shower Type: tub shower bench Laundry: same level- spouse completes Equipment Owned: Commode- 3 in 1, Extended Tub Bench, Walker- Wheeled, Other: See Comment (transport chair) PRIOR FUNCTIONAL LEVEL Required Assistance Assistance Required With: Medication Management, Shopping, Self Care Pt was GA with mobility; limited distances d/t pain in knee; pt would use cart in grocery store, no AD in house; Pt typically sleeps in recliner. He required assist w/ bathing and LB dressing; Spouse does most meals, laundry and cleaning; +driving Per chart, pt and spouse have hoarding tendencies so there is limited space in home. Spouse is 80 y/o and unable to physically assist pt. One fall at home, no injuries. Diagnosed with Parkinson's February 2024 Independent with medication with diffculty THERAPY DIAGNOSIS Reduced mobility-other, Muscle Weakness (generalized), Difficulty walking-musculoskeletal TREATMENT INTERVENTIONS Therapeutic Exercise (39146), Gait Training (44794) Timed Code Treatment (minutes): 40 Skilled Treatment Time (minutes): 40 EXERCISE Exercises Exercise Performed: (new step L2 15 min.) TRAINING AND EDUCATION PROVIDED Assistive Device Use, Exercise Program, Gait Pattern, Reduction of Deviations, Expected Functional Level, Precautions/Restrictions, Transfers THERAPEUTIC SKILLS USED Activity Dosing, Cues for Sequencing/Proper Technique for Activity, Cuing Verbal, Cuing Visual, Postural Alignment Correction PLAN PT Frequency: (7x 7 days) Treatment Interventions: Education, Self Care / Home Management, Energy Conservation Training, Joint Mobility, Strengthening, Functional Mobility Training, Balance Training, Neuromuscular Re-education, Wound Care Management, Modalities, Edema Management, Pain Management SIGNATURE: Nancie Christine PTA PATIENT NAME: Nick Arora DATE: July 10, 2024 TIME: 12:02 PM THERAPY NT Observed: 07/09/2024 10:05 AM Status: COMPLETED Source: [facility] HNO ID: [id number] Author: HILARY REESE PT Service: Physical Therapy Author Type: Tug Hand Type: Therapy (PT/OT/Speech/Resp) Filed: 07/09/2024 11:51 Note Text: Attestation signed by Hilary Reese PT at 07/09/2024 11:51 AM I reviewed and agree with the documentation corresponding to this therapy visit. SIGNATURE: Hilary Reese PT DATE: July 09, 2024 TIME: 11:51 AM Summary: PT Insurance Update Physical Therapy [facility] Treatment Summary SERVICE DATE: 07/09/2024 SERVICE TIME: 925 ROOM: [place] [address] PT 6 Clicks Score: 22 DISCHARGE RECOMMENDATIONS Home PT Recommended Discharge Disposition Comments: Home PT with 24/7 supervision from spouse, but not physical assist Anticipated Discharge Needs: Family Training, Supervision at Home Recommended Discharge Equipment: To Be Determined GOALS Patient will demonstrate progress with functional mobility to allow safe discharge to home with available support and/or physical assistance. Able to Perform HEP with: Independent Rolling with: Modified Independent Transfer Supine to/from Sit with: Modified Independent Transfer Sit to/from Stand with: Supervision Ambulate with: Supervision Distance: 150+ Device: Wheeled Walker ROM: L knee 100 flexion,-2 extension Goal: 10 MWT > 0.75 m/s Rehab Potential: Good Progress Toward Goals: Progressing as expected ASSESSMENT Response to Therapy Interventions: Good Participation in Activities Patient tolerates session well however is so what limited this session d/t tiredness as he states he did not sleep well last night. Patient nearing baseline as he is stand by to supervision for almost all his mobility and is able to walk approximately 100 feet. Plan for Next Visit: Gait Training, Exercise Instruction/Handout PRECAUTIONS Fall Risk, Total Knee Replacement, Weight Bearing Restrictions L TKA and WBAT, MIRANDA kamlae, fall risk, Parkinson's Left Lower Extremity Weight Bearing Status: WBAT SUBJECTIVE Are we doing therapy FUNCTIONAL STATUS Bed Mobility Rolling: Supervision Supine To Sit: Stand By Assistance Sit to Supine: Supervision Scooting: Stand By Assistance Transfers Sit To Stand: Stand By Assistance Stand To Sit: Stand By Assistance Bed to Chair Contact Guard Assistance Bed To Chair Transfer Type: Stepping Bed To Chair Transfer Equipment: Gait Belt, Wheeled Walker Gait Stand By Assistance Gait Device: Wheeled Walker Gait Distance (feet): 100, 70 Stairs Contact Guard Assistance Stairs Device: Rail (bilateral) Number of Stairs: 4 CURRENT HOSPITAL COURSE Patient is a 64 year old male presenting from [facility] from 07/03-07/05 for YUMIKO, hypotension, WBC of 24, distended gallbladder with mild wall thickening per CT abdomen. Conley removed during stay. Recent elective L TKA 06/22 at [facility]. Patient now presents motivated to return to home setting with 27/04 supervision and assist from spouse. Relevant Past Medical History: HTN, HFrEF, T2DM, Parkinson's disease, Possible stroke per daughter, L TKA 06/22/24; HOME LIVING Patient Lives With: Spouse (FIrst floor apartment) Assistance Available: 24-Hour (spouse cannot physically assist due to LBP) Entry To Home: No Stairs Number Of Stairs To Bed/Bath: 0 Tub/Shower Type: tub shower bench Laundry: same level- spouse completes Equipment Owned: Commode- 3 in 1, Extended Tub Bench, Walker- Wheeled, Other: See Comment (transport chair) PRIOR FUNCTIONAL LEVEL Required Assistance Assistance Required With: Medication Management, Shopping, Self Care Pt was GA with mobility; limited distances d/t pain in knee; pt would use cart in grocery store, no AD in house; Pt typically sleeps in recliner. He required assist w/ bathing and LB dressing; Spouse does most meals, laundry and cleaning; +driving Per chart, pt and spouse have hoarding tendencies so there is limited space in home. Spouse is 80 y/o and unable to physically assist pt. One fall at home, no injuries. Diagnosed with Parkinson's February 2024 Independent with medication with diffculty THERAPY DIAGNOSIS Reduced mobility-other, Muscle Weakness (generalized), Difficulty walking-musculoskeletal TREATMENT INTERVENTIONS Therapeutic Exercise (97366), Gait Training (48427) Timed Code Treatment (minutes): 30 Skilled Treatment Time (minutes): 30 EXERCISE Exercises Exercise: Nustep seat 12 UE 12 lvl 5 6 minutes TRAINING AND EDUCATION PROVIDED Exercise Program, Expected Functional Level, Gait Pattern, Reduction of Deviations, Stair Navigation THERAPEUTIC SKILLS USED Activity Dosing, Cuing Verbal, Cues for Sequencing/Proper Technique for Activity PLAN PT Frequency: (7x 7 days) Treatment Interventions: Education, Self Care / Home Management, Energy Conservation Training, Joint Mobility, Strengthening, Functional Mobility Training, Balance Training, Neuromuscular Re-education, Wound Care Management, Modalities, Edema Management, Pain Management SIGNATURE: Sam Hines PTA PATIENT NAME: Nick Arora DATE: July 09, 2024 TIME: 10:05 AM PROGRESS Observed: 07/09/2024 9:35 AM Status: COMPLETED Source: [facility] HNO ID: [id number] Author: IRMA SALAZAR APRN.CNP Service: Hospital Medicine Author Type: Nurse Practitioner Type: Progress Notes Filed: 07/09/2024 09:47 Note Text: DEPARTMENT OF HOSPITAL MEDICINE PROGRESS NOTE SERVICE DATE: 07/09/2024 SERVICE TIME: 9:35 AM Hospital Medicine/Primary Attending: Aurelio Sanders MD NIGHT AND WEEKEND COVERAGE: [facility] Medicine MARIA D 7a-7p Page [id number] 7p-7a Subjective INTERVAL HPI: - overnight patient developed nausea/vomiting and burning sensation to mid-chest. Reports sx are similar to Indigestion. He reports this happens a lot at home around bedtime and he uses Tums. Denies any associated symptoms with discomfort. - EKG overnight-- NSR with mild ST elevated in V1-2. - repeat EKG this morning, unchanged. - HSTNT 35-->42-->41. - patient denies hx of stress test/ECHO/heart cath and is declining further cardiac workup at this time as he states it is my normal indigestion and I feel better now. - will increase PPI to BID with meals and Pepcid at HS. Current Facility-Administered Medications Medication Dose Route Frequency apixaban 2.5 mg tab(s) (ELIQUIS) 2.5 mg ORAL BID aspirin 81 mg chewable tab(s) 81 mg ORAL DAILY amLODIPine 10 mg tab(s) (NORVASC) 10 mg ORAL DAILY atorvastatin 20 mg tab(s) (LIPITOR) 20 mg ORAL AT BEDTIME cloNIDine HCl 0.2 mg tab(s) (CATAPRES) 0.2 mg ORAL BID spironolactone 25 mg tab(s) (ALDACTONE) 25 mg ORAL DAILY dapagliflozin propanediol 10 mg tab(s) (FARXIGA) 10 mg ORAL DAILY WITH BREAKFAST citalopram 40 mg tab(s) (CeleXA) 40 mg ORAL DAILY carbidopa-levodopa 25-100 mg 1 tablet (SINEMET 25-100) 1 tablet ORAL 3 times per day senna-docusate 8.6-50 mg 1 tablet (SENNA-S) 1 tablet ORAL BID magnesium hydroxide 400 mg/5 mL 30 mL (MOM) 30 mL ORAL DAILY PRN acetaminophen 1,000 mg tab(s) (TYLENOL) 1,000 mg ORAL q 8 H ondansetron orally disintegrating 4 mg tab(s) (ZOFRAN ODT) 4 mg ORAL q 12 H PRN cephALEXin 500 mg cap(s) (KEFLEX) 500 mg ORAL q 12 H lisinopril 10 mg tab(s) (ZESTRIL) 10 mg ORAL DAILY calcium carbonate 1,000 mg chewable tab(s) (TUMS) 1,000 mg ORAL BID PRN tamsulosin 0.8 mg cap(s) (FLOMAX) 0.8 mg ORAL DAILY Followed by [START ON 07/12/2024] tamsulosin 0.4 mg cap(s) (FLOMAX) 0.4 mg ORAL DAILY oxyCODONE IR 5 mg tab(s) (ROXICODONE) 5 mg ORAL q 4 H PRN traMADol 25 mg tab(s) (ULTRAM) 25 mg ORAL q 6 H PRN aluminum-magnesium hydroxide-simethicone 200-200-20 mg/5 mL 30 mL 30 mL ORAL q [address] 40 mg tab(s) (PROTONIX) 40 mg ORAL BID AC (0600/1600) polyethylene glycol 3350 17 g packet 17 g ORAL DAILY PRN famotidine 40 mg tab(s) (PEPCID) 40 mg ORAL AT BEDTIME Objective PHYSICAL EXAM: BP 127/79 Pulse 94 Temp (Src) 97.8 (Oral) Resp 16 Ht 5' 11 (1.80m) Wt 219 lb 2.2 oz (99.4kg) SpO2 96% BMI 30.58 kg/(m2). O2 Therapy: Room Air Physical Exam Performed GENERAL: Alert, no distress, cooperative SKIN: Skin color, texture, turgor normal. No rashes. HEAD/SINUSES: No significant findings, NC/AT LUNGS: Lungs clear to auscultation, Good diaphragmatic excursion CARDIAC: No murmur, RRR ABDOMEN: Abdomen soft, non-tender, BS normal EXTREMITIES: + left knee surgical scar well approximated with minimal post-op edema. Extremities without clubbing or skin discoloration. Good capillary refill. NEURO: Grossly normal cognition, Sensation grossly intact. + resting tremors. PULSES: 2+ radial, 2+ dorsalis pedis Lines, Drains, and Airways None Patient does not currently have any lines, drains or airways. DATA: Diagnostic tests reviewed for today's visit: Most recent labs Assessment/Plan Problem List Assessment AND Plan Aftercare UTI (urinary tract infection) YUMIKO (acute kidney injury) (HCC) Status post total left knee replacement Essential (primary) hypertension Mild depression Type 2 diabetes mellitus without complication, without long-term current use of insulin (HCC) Chronic combined systolic and diastolic heart failure (HCC) Parkinson's disease with dyskinesia (HCC) Acute urinary retention Malnutrition of mild degree (HCC) Nausea and vomiting Hypotension HOSPITAL COURSE: Nick Arora is a 64 year old male with PMH DMII, BPH, Parkinson's disease, depression, diastolic HF, admitted to [facility] on 06/22/2024 for elective left total knee replacement. Patient underwent surgery on 06/22/[address] Ge. Post-op course was complicated by YUMIKO, thus Lisinopril-HCTZ/Aldactone were held. Patient received IVF and Cr trended down (1.48 on 06/27/2024). Ortho recommended Eliquis BID x14 days. Ortho also recommended WBAT LLE and encourage ROM to LLE. Follow up appointment was scheduled for 07/06/2024. Patient was noted to be constipated and tap water enema was given without much success. Patient was discharged with Conley in place due to acute urinary retention noted on admission to [place]. Patient was evaluated by therapy, thus patient was transferred to [facility] for further services. Patient was progressing well while at [facility] and successfully passed voiding trial. On 07/02/2024 patient had hypotensive episode without acute symptoms and routine labs were checked that showed worsening of YUMIKO and significant WBC elevation to >20K. UA showed a UTI. Given the significant YUMIKO and UTI, a CT AP was performed that showed a dilated gallbladder and recommended RUQ. Given patient significant YUMIKO, WBC elevation, and CT AP findings, it was deemed appropriate to transfer patient to [facility] for higher level of care. Patient was admitted to [facility] on 07/03/2024. Urine cx noted 10,000 -<50,000 CFU/ml Gram negative bacilli. Patient was treated with IV Ceftriaxone and leukocytosis improved to 11k; transitioned to PO ATB at [place]. Patient received IVF and BP normalized; anti-HTN meds restarted slowly and tolerated Amlodipine/Clonidine. YUMIKO improved with IVF. Lisinopril dose was decreased and HCTZ was stopped. RUQ US was negative for gallbladder findings and GI did not recommend any further intervention. Once medically stable, patient was transferred back to [facility] for [facility] services. Obesity Class I (BMI 30-34.9) Principal Problem: Aftercare - Hospitalization Dates: 07/03/2024-07/05/2024 - previous admits-- 06/29-07/03/24 [facility]; 06/22-06/29/24 [facility] - Hospitalization Diagnosis: hypotension/YUMIKO - Discharge Facility: [facility] - PT/OT Consult - Nutrition Consult - Case Management Consult for Discharge Planning - Pain Control: scheduled tylenol; PRN oxycodone - DVT Prophylaxis: Eliquis BID until 07/14/2024 - PT/OT Restrictions: WBAT LLE - Current Living Situation: home with family - Code Status: FULL CODE Active Problems: UTI (urinary tract infection) - Urine cx: 10,000 -<50,000 CFU/ml Gram negative bacilli - treated with IV Ceftriaxone and transitioned to PO ATB - leukocytosis improved to 11k by DC - continue PO Keflex until 07/10/2024 - repeat labs on 07/09/2024-- WBC 13k, slightly up from previous - Procal mildly elevated at 0.19 YUMIKO (acute kidney injury) (HCC)-- IMPROVING - Cr as high as 1.76, but trended down to 1.20 with IVF - Lisinopril dose was decreased and HCTZ was stopped - resumed Aldactone on 07/06/2024 - avoid nephrotoxins when able - repeat labs on 07/09/2024-- Cr 1.17 - repeat labs on 07/12/2024 Status post total left knee replacement - Elective surgery on 06/22/[address] Felipe - pain control with bowel regimen - WBAT LLE; Encourage ROM - Eliquis BID until 07/14/2024; continue daily ASA - PRN ice - f/u with Ortho on 07/06/2024-- recs for further ROM exercises Hypotension-- RESOLVED Essential (primary) hypertension - noted to be hypotensive and responded with IVF at [place] - Lisinopril dose was decreased and HCTZ was stopped at [place] - Continue Amlodipine, Aldactone, Lisinopril - continue Clonidine with holding parameters Nausea and Vomiting - CT ABD/PEL-- Mildly distended gallbladder with mild wall thickening - RUQ US negative gallbladder - GI consulted at [place] who recommended no further intervention - PRN Zofran and Tums - developed at on 07/08/2024 without PRN medications administered - KUB negative acute - will increase PPI to BID and add Pepcid at bedtime - PRN MOM added for GI upset Mild depression - Continue Celexa Type 2 diabetes mellitus without complication, without long-term current use of insulin (HCC) - diet controlled at home; no longer on Metformin - last A1C 4 months ago-- 6.4% Chronic combined systolic and diastolic heart failure (HCC) - Last ECHO 04/2024-- There is mild concentric left ventricular hypertrophy. Left ventricular systolic function is normal. EF = 54 ? 5% (2D biplane). Grade I left ventricular diastolic dysfunction. - continue Aldactone and Farxiga Parkinson's disease with dyskinesia (HCC) - resting tremor present - continue Sinemet Acute Urinary retention-- RESOLVED - passed voiding trial prior to transfer to [place] - was noted to have difficulty urinating at [place] - Flomax dose was increased at [place]-- continue x1 week, then can reduce dose back to 0.4mg daily Malnutrition of mild degree (HCC) - Power System Electrical Engineer consulted - supplements per orders Malnutrition Diagnosis supported by Registered Dietitian:Mild Protein-Calorie Malnutrition Based on: Insufficient Energy Intake Assessment: I have reviewed the result of the malnutrition assessment and plan and agree Plan: Diet, Supplements Medication and Non-Pharmacologic VTE Prophylaxis/Anticoagulants Anticoagulant AND Antiplatelet Medications (From admission, onward) Start Dose Route Frequency Last Action Ordered Stop 07/06/24 0900 aspirin 81 mg chewable tab(s) 81 mg ORAL DAILY Given, 07/09 90207/05/24 1524 -- 07/05/24 2100 apixaban 2.5 mg tab(s) (ELIQUIS) 2.5 mg ORAL 2 TIMES DAILY Given, 07/09 0907/05/24 1524 07/14/24 2059 07/07/24 1045 graduated compression stockings ([place] 07/05/24 1530 vte current anticoag therapy [place] 07/05/24 1530 activity - mobilize [place] ([place] VTE Prophylaxis: VTE prophylaxis appropriate Disposition: Home with [facility] Plan of care discussed with Provider, RN, Patient Plan communicated to: Family updated on POC and all questions answered. SIGNATURE: Irma Salazar APRN.CNP PATIENT NAME: Nick Arora DATE: July 09, 2024 TIME: 9:35 AM THERAPY NT Observed: 07/09/2024 8:43 AM Status: COMPLETED Source: [facility] HNO ID: [id number] Author: ESTRELLA MORRISON OTR/L Service: Occupational Therapy Author Type: Occupational Therapist Type: Therapy (PT/OT/Speech/Resp) Filed: 07/09/2024 09:08 Note Text: Summary: OT insurance update Occupational Therapy Halfway Facility Treatment Summary SERVICE DATE: 07/09/2024 SERVICE TIME: 754 ROOM: [place] [address] OT 6 Clicks Score: 20 DISCHARGE RECOMMENDATIONS Home OT Recommended Discharge Disposition Comments: Pt states spouse can assist with meals and light ADL tasks; home health recommended upon discharge Anticipated Discharge Needs: Family Training, Supervision at Home Recommended Discharge Equipment: ADL Kit, Walker bag/basket, To Be Determined GOALS Patient will demonstrate progress with self-care, cognitive and/or coping needs identified to allow safe discharge to home with available support and/or physical assistance. Lower Body Bathing with: Stand By Assistance Lower Body Dressing with: Stand By Assistance Toilet Hygiene with: Stand By Assistance Chair Transfer with: Stand By Assistance Toilet Transfer with: Stand By Assistance Tub Transfer with: Contact Guard Assistance Tolerate (minutes of functional activity): 50 Functional Activity with: Stand By Assistance Kitchen Mobility Tasks with: Stand By Assistance Progress Toward Goals: Progressing as expected Rehab Potential: Good ASSESSMENT Response to Therapy Interventions: Good Participation in Activities, Improved Tolerance for Activity Pt demo'ing improved tolerance for activity and independence; completing grooming/hygiene tasks at sink; improved use of AE for LB dressing; pt likely to d/c to [facility] to have more assist (dtr lives in [place]); pt is close to meeting OT goals at this time. 27/04 assist recommended at d/c for recovery and to decrease fall risk; pt expected to d/c by 07/13; Plan for Next Visit: Bed Mobility, Chair/Commode Transfer Training, Dressing Training, Energy Conservation, Grooming Training, Sit to Stand Transfers, Standing Balance, Standing Tolerance, Toileting Instruction PRECAUTIONS Fall Risk, Total Knee Replacement, Weight Bearing Restrictions L TKA and WBAT, MIRANDA tyson, fall risk, Parkinson's Left Lower Extremity Weight Bearing Status: WBAT SUBJECTIVE pt agreeable to OT; cleared by GI TECHNICIAN for treatment FUNCTIONAL STATUS Activities of Daily Living Assist Level Additional Information Feeding Independent Grooming Stand By Assistance standing at sink for grooming / hygiene tasks Bathing Upper Body Set Up Bathing Lower Body Minimal Assistance, Additional Information Dressing Upper Body Independent Dressing Lower Body Set Up, Stand By Assistance completing don/doffing socks with use of sock aid and dressing stick Toileting Minimal Assistance, Additional Information Instrumental Activities of Daily Living Assist Level Additional Information Meal/Beverage Prep Maximal Assistance Cleaning Total Assistance Laundry Maximal Assistance Medication Management with Strategies Mobility Assist Level Additional Information Bed Mobility Supine To Sit: Stand By Assistance Sit To Supine: Stand By Assistance Sit to Stand Contact Guard Assistance Stand to Sit Contact Guard Assistance Bed to Chair Stand By Assistance Bed To Chair Transfer Type: Stepping Bed To Chair Transfer Equipment: Wheeled Walker, Gait Belt Toilet/Commode Contact Guard Assistance Shower Contact Guard Assistance Functional Mobility Stand By Assistance Functional Mobility Device: Wheeled Walker CURRENT HOSPITAL COURSE Patient is a 64 year old male presenting from [facility] from 07/03-07/05 for YUMIKO, hypotension, WBC of 24, distended gallbladder with mild wall thickening per CT abdomen. Conley removed during stay. Recent elective L TKA 06/22 at [facility]. Patient now presents motivated to return to home setting with 27/04 supervision and assist from spouse. Relevant Past Medical History: HTN, HFrEF, T2DM, Parkinson's disease, Possible stroke per daughter, L TKA 06/22/24; HOME LIVING Patient Lives With: Spouse (FIrst floor apartment) Assistance Available: 24-Hour (spouse cannot physically assist due to LBP) Entry To Home: No Stairs Number Of Stairs To Bed/Bath: 0 Tub/Shower Type: tub shower bench Laundry: same level- spouse completes Equipment Owned: Commode- 3 in 1, Extended Tub Bench, Walker- Wheeled, Other: See Comment (transport chair) PRIOR FUNCTIONAL LEVEL Required Assistance Assistance Required With: Medication Management, Shopping, Self Care Pt was GA with mobility; limited distances d/t pain in knee; pt would use cart in grocery store, no AD in house; Pt typically sleeps in recliner. He required assist w/ bathing and LB dressing; Spouse does most meals, laundry and cleaning; +driving Per chart, pt and spouse have hoarding tendencies so there is limited space in home. Spouse is 80 y/o and unable to physically assist pt. One fall at home, no injuries. Diagnosed with Parkinson's February 2024 Independent with medication with diffculty Baseline Cognition: Oriented to self, Oriented to place, Oriented to time, Oriented to situation COGNITION THERAPY DIAGNOSIS Reduced mobility-other, Decreased activities of daily living (ADL), Muscle Weakness (generalized), Unsteadiness on feet TREATMENT INTERVENTIONS Therapeutic Activity (82234), Self Chcf Management (64281) Timed Code Treatment (minutes): 39 Skilled Treatment Time (minutes): 39 EXERCISE None performed this session TRAINING AND EDUCATION PROVIDED Activity Adaptation/Compensatory Strategies, Adaptive Equipment/DME, Energy Conservation, Functional Mobility Involving ADLs, Insight into Deficits, Safety/Judgment, Standing Balance to Improve Nash with ADLs/Self-Care, Transfer - Sit to Stand, Grooming Tasks, Lower Extremity Dressing, Transfer - Bed to Chair, Precautions/Restrictions THERAPEUTIC SKILLS USED Assessment of Tolerance Including Vitals Response to Activity, Cues for Sequencing/Proper Technique for Activity, Cuing Verbal, Cuing Visual, Physical Assist, Therapeutic Use of Self, Task Analysis Learning, Activity Dosing PLAN OT Frequency: 3 Times Per Week (33-6 times per week x 7-10 days) Treatment Interventions: Education, Self Care/Home Management, Energy Conservation Training, Strengthening, Functional Mobility Training, Balance Training SIGNATURE: Estrella Morrison OTR/L PATIENT NAME: Nick Arora DATE: July 09, 2024 TIME: 8:43 AM ECG COMPLETE Observed: 07/09/2024 6:52 AM Status: F Source: [facility] Ventricular Rate : 81 BPM Atrial Rate : 81 BPM P-R Interval : 174 ms QRS Duration : 134 ms Q-T Interval : 406 ms QTC Calculation(Bazett) : 471 ms Calculated P [employer] : 25 degrees Calculated R [employer] : -46 degrees Calculated T [employer] : 95 degrees NORMAL SINUS RHYTHM LEFT AXIS DEVIATION LEFT BUNDLE BRANCH BLOCK MINIMAL VOLTAGE CRITERIA FOR LVH, MAY BE NORMAL VARIANT ( Chilo product ) CANNOT RULE OUT ANTERIOR INFARCT (CITED ON OR BEFORE 08-Jul-2024) ABNORMAL ECG WHEN COMPARED WITH ECG OF 08-Jul-2024 22:59, NO SIGNIFICANT CHANGE WAS FOUND Confirmed by MD PEDERSON VINAYAK ([id number]) on 07/12/2024 8:57:41 PM NAME : NICK ARORA PID : [id number] : 1960 Gender : Male Race : ORD : [id number] Procedure Date : Jul 09 2024 06:52:06 Edit Date : Jul 12 2024 20:57:42 Diagnosis: NORMAL SINUS RHYTHM LEFT AXIS DEVIATION LEFT BUNDLE BRANCH BLOCK MINIMAL VOLTAGE CRITERIA FOR LVH, MAY BE NORMAL VARIANT ( Chilo product ) CANNOT RULE OUT ANTERIOR INFARCT (CITED ON OR BEFORE 08-Jul-2024) ABNORMAL ECG WHEN COMPARED WITH ECG OF 08-Jul-2024 22:59, NO SIGNIFICANT CHANGE WAS FOUND Confirmed by MD PEDERSON VINAYAK ([id number]) on 07/12/2024 8:57:41 PM Test Reason : Arrhythmia Location : 191 : [place] 0107 Overread By : MD PEDERSON VINAYAK Edited By : MD PEDERSON VINAYAK Referred By : , Acquired by : JAVAD DALTON HIGH SENSITIVITY TROPONIN T Collected: 07/09/2024 3:5 9 AM Status: F Source: [facility] Order Comment: Specimen Type : BLOOD SPECIMEN Ordering Facility: [facility] Address: [address] [place] [address] TYPE CODE TESTS RESULT OUT OF RANGE REFERENCE UNITS LAB 45158-6(LOINC) Troponin T SerPl HS-mCnc 41 High <12 ng/L Performed By: #### HSTNT ### # [facility] CLIA [id number] [address] [place] [address] OF [facility] Observed: 07/09/2024 2:31 AM Status: COMPLETED Source: [facility] HNO ID: [id number] Author: CHRIS COLLAZO RN Service: ? Author Type: Registered Nurse Type: Nursing Progress Note Filed: 07/09/2024 02:32 Note Text: Burton Galvin CNP made aware of patients troponin results of 42. Next troponin to be drawn at 4 am. Will continue to closely monitor pt COMP METAB 2000 PNL SERPL Collected: 12:52 AM Status: F Source: [facility] Order Comment: Specimen Type : BLOOD SPECIMEN Ordering Facility: [facility] Address: [address], [place] [address] TYPE CODE TESTS RESULT OUT OF RANGE REFERENCE UNITS LAB 2885-2(LOINC) Prot SerPl-mCnc 6.6 6.3-8.0 g/dL LAB 1751-7(LOINC) Albumin SerPl-mCnc 3.9 3.9-4.9 g/dL LAB 13587-8(LOINC) Calcium SerPl-mCnc 9.8 8.5-10.2 mg/dL LAB 1975-2(LOINC) Bilirub SerPl-mCnc 0.4 0.2-1.3 mg/dL LAB 6768-6(LOINC) ALP SerPl-cCnc 97 38-113 U/L LAB 17449-4(LOINC) AST SerPl w P-5'-P-cCnc 27 14-40 U/L LAB 1743-4(LOINC) ALT SerPl w P-5'-P-cCnc <5 Low 10-54 U/L LAB 2345-7(LOINC) Glucose SerPl-mCnc 165 High 74-99 mg/dL Result Comment: The [place] Diabetes Association (ADA) provides guidance for cutoff values for fasting glucose and random glucose. The ADA defines fasting as no caloric intake for at least 8 hours. Fasting plasma glucose results between 100 to 125 mg/dL indicate increased risk for diabetes (prediabetes). Fasting plasma glucose results greater than or equal to 126 mg/dL meet the criteria for diagnosis of diabetes. In the absence of unequivocal hyperglycemia, results should be confirmed by repeat testing. In a patient with classic symptoms of hyperglycemia or hyperglycemic crisis, random plasma glucose results greater than or equal to 200 mg/dL meet the criteria for diagnosis of diabetes. Reference: Standards of Medical Care in Diabetes 2016, Indian Diabetes Association. Diabetes Care. 2016.39(Suppl 1). LAB 3094-0(LOINC) BUN SerPl-mCnc 17 9-24 mg/ dL LAB 2160-0(LOINC) Creat SerPl-mCnc 1.17 0.73-1.22 mg/dL LAB 2951-2(LOINC) Sodium SerPl-sCnc 139 136-144 mmol/L LAB 2823-3(LOINC) Potassium SerPl-sCnc 4.1 3.7-5.1 mmol/L LAB 2075-0(LOINC) Chloride SerPl-sCnc 104 98-107 mmol/L LAB 2027-9(LOINC) CO2 SerPl-sCnc 25 22-30 mmo l/L LAB 91361-9(LOINC) Anion Gap SerPl-sCnc 10 8-15 mmol/L LAB 99984-2(LOINC) Creatinine + eGFR Pnl SerPlBld 69 >=60 mL/min/1. 73m??? Result Comment: Estimated Gl omerular Filtration Rate (eGFR) is calculated using the 2020 CKD-EPI creatinine equation. This equation utilizes serum creatinine, sex, and age as parameters. The creatinine assay has traceable calibration to isotope dilution-mass spectrometry. Refer to KDIGO guidelines for clinical interpretation. In patients with unstable renal function, e.g. those with acute kidney injury, the eGFR may not accurately reflect actual GFR. Performed By: #### 12263-3, 07117-3 #### [facility] CLIA [id number] [address] [place] [address] OF [facility] PROCALCITONIN SERPL-MCNC Collected: 07/09/2024 12:52 AM Status: F Source: [facility] Order Comment: Specimen Type : BLOOD SPECIMEN Ordering Facility: [facility] Address: [address] [place] [address] TYPE CODE TESTS RESULT OUT OF RANGE REFERENCE UNITS LAB 49681-1([facility]) Procalcitonin SerPl-mCnc 0.19 High <0.09 ng/mL Result Comment: For a guided interpretation of test results, please visit the Change in Procalcitonin Calculator, [email or web address]. Performed By: #### 77999-9, 49682-9 #### [facility] CLIA [id number] [address] [place] [id number] [facility] OF [facility] CBC PNL BLD AUTO Collected: 07/09/2024 12:52 AM Stat us: F Source: [facility] Order Comment: Specimen Type : BLOOD SPECIMEN Ordering Facility: [facility] Address: [address] [id number] TYPE CODE TESTS RESULT OUT OF RANGE REFERENCE UNITS LAB 6690-2(LOINC) WBC # Bld Auto 13.18 High 3.70-11.00 k/uL LAB 789-8(LOINC) RBC # Bld Auto 3.54 Low 4.20-6.00 m/ uL LAB 718-7(LOINC) Hgb Bld-mCnc 10.8 Low 13.0-17.0 g/dL LAB 4544-3(LOINC) Hct VFr Bld Auto 33.2 Low 39.0-51.0 % LAB 787-2(INC) MCV RBC Auto 93.8 80.0-100.0 fL LAB 785-6(INC) MCH RBC Qn Auto 30.5 26.0-34.0 pg LAB 786-4(INC) MCHC RBC Auto-mCnc 32.5 30.5-36.0 g/dL LAB 24744-7(INC) RDW RBC-Rto 12.8 11.5-15.0 % LAB 777-3(INC) Platelet # Bld Auto 535 High 150-400 k/uL LAB 65152-4([facility]) PMV Bld Auto 8.4 Low 9.0-12.7 fL Performed By: #### 46231-0 # ### [facility] CLIA [id number] [address] [place] [address] HIGH SENSITIVITY TROPONIN T Collected: 07/09/2024 12: 52 AM Status: F Source: [facility] Order Comment: Specimen Type : BLOOD SPECIMEN Ordering Facility: [facility] Address: [address] [place], [place] [id number] TYPE CODE TESTS RESULT OUT OF RANGE REFERENCE UNITS LAB 46726-4([facility]) Troponin T SerPl HS-mCnc 42 High <12 ng/L Performed By: #### HSTNT ### # [facility] CLIA [id number] [address] [place] [address] [facility] PLAN OF CARE Observed: 07/09/2024 12:10 AM Status: COMPLETED Source: [facility] HNO ID: [id number] Author: KAMAR MORSE APRN.CNP Service: Hospital Medicine Author Type: Nurse Practitioner Type: Plan of Care Filed: 07/09/2024 05:09 Note Text: July 08, 2024 0252 -Notified by bedside RN that patient continues to experience nausea and vomiting even after Zofran was administered earlier in the evening and is concerned that perhaps there is some other etiology such as cardiac (patient has known typical ACS symptoms at this time) -Chart review shows that the patient has had a complicated clinical course since 06/22/2024 including left TKA, YUMIKO, dilated gallbladder, YUMIKO, and UTI finishing course of Keflex. GI did see patient for dilated gallbladder and given that right upper quadrant ultrasound was negative, they did not recommend any further intervention -Patient has no prior EKG in chart or troponins for baseline. His last labs were drawn on 05 July Plan: -Obtain EKG and troponin to evaluate for possible cardiac etiology -Will also obtain KUB and basic labs -Consider additional antiemetics pending QTc on EKG Kamar Morse APRN.CNP July 09, 2024 12:13 AM Addendum July 08, 2024 9302 -EKG sent via picture by RN and shows normal sinus rhythm with left axis deviation, ventricular rate of 91, QTc of 477, and no acute ST changes although there is noted to be wide QRS complexes in V2 and V3 -Troponin noted to be 35 Plan: -Continue to trend troponin for any change -Await KUB and basic labs as noted above Kamar Morse APRN.CNP July 09, 2024 12:15 AM XR ABDOMEN 1V SUPINE Observed: 12:06 AM Status: F Source: [facility] * * *Final Report* * * DATE OF EXAM: Jul 09 2024 12:06AM LDX 5289 - XR ABDOMEN 1V SUPINE / PROCEDURE REASON: Nausea/Vomiting * * * * Physician Interpretation * * * * Exam: Supine abdomen, single image INDICATION: Nausea and vomiting, indigestion. COMPARISON: 04/03/2020 FINDINGS: There is gas in the stomach, without abnormal distention. Scattered gas in the small and large bowel without pathologic distention. No centralization of bowel loops or mass effect. No visible stool volume, pelvis was not imaged. IMPRESSION: No bowel distention or visible stool volume, though the pelvis was not imaged. Director Occupational: TASHA Transcribe Date/Time: Jul 09 2024 1:23A Dictated by : SIMI VERMA MD This examination was interpreted and the report reviewed and electronically signed by: SIMI VERMA MD on Jul 09 2024 1:26AM EST [id number] NURSING PROG Observed: 07/08/2024 11:15 PM Status: COMPLETED Source: [facility] HNO ID: [id number] Author: CHRIS COLLAZO, RN Service: ? Author Type: Registered Nurse Type: Nursing Progress Note Filed: 07/09/2024 01:18 Note Text: Patient continues to C/O heart burn and states that he feels awful, he requests additional Tums. On erma LIP paged and made aware. Orders obtained by Arnold BRENNAN to administer 30mls PO Maalox Q6hrs PRN for Heart burn. 2215: per PCNA, patient vomiting undigested food In to assess patient, patient diaphoretic, clammy and states that he feels awful. When asked patient states that he still has nausea and heart burn. 2239: LIP paged and requested to order troponin, an EKG and IV Zofran. JOHNNA made aware of patients complaints and symptoms. New Orders obtained from Nataliia Matos: EKG, IV Zofran and Troponin. Patient updated on plan of care and agrees. 2300: #20 SL inserted to RT wrist. Labs obtained. 4mg IV zofran slowly pushed (2306) Call light remains within reach. Will continue to closely monitor pt and follow plan of care. HIGH SENSITIVITY TROPONIN T Collected: 07/08/2024 11: 05 PM Status: F Source: [facility] Order Comment: Specimen Type : BLOOD SPECIMEN Ordering Facility: [facility] Address: [address] [place] [address] [place] [address] TYPE CODE TESTS RESULT OUT OF RANGE REFERENCE UNITS LAB 91070-4(LOINC) Troponin T SerPl HS-mCnc 35 High <12 ng/L Performed By: #### HSTNT ### # [facility] CLIA [id number] [address] [place] [address] OF [facility] ECG COMPLETE Observed: 07/08/2024 10:59 PM Status: F Source: [facility] Ventricular Rate : 91 BPM Atrial Rate : 91 BPM P-R Interval : 156 ms QRS Duration : 126 ms Q-T Interval : 388 ms QTC Calculation(Bazett) : 477 ms Calculated P [employer] : 82 degrees Calculated R [employer] : -53 degrees Calculated T [employer] : 93 degrees NORMAL SINUS RHYTHM LEFT AXIS DEVIATION NON-SPECIFIC INTRA-VENTRICULAR CONDUCTION BLOCK MINIMAL VOLTAGE CRITERIA FOR LVH, MAY BE NORMAL VARIANT ( [place] product ) CANNOT RULE OUT ANTERIOR INFARCT , AGE UNDETERMINED ABNORMAL ECG NO PREVIOUS ECGS AVAILABLE Confirmed by MD PEDERSON VINAYAK ([id number]) on 07/12/2024 8:57:12 PM NAME : NICK ARORA PID : [id number] : 1960 Gender : Male Race : ORD : [id number] Procedure Date : Jul 08 2024 22:59:28 Edit Date : Jul 12 2024 20:57:18 Diagnosis: NORMAL SINUS RHYTHM LEFT AXIS DEVIATION NON-SPECIFIC INTRA-VENTRICULAR CONDUCTION BLOCK MINIMAL VOLTAGE CRITERIA FOR LVH, MAY BE NORMAL VARIANT ( Brady product ) CANNOT RULE OUT ANTERIOR INFARCT , AGE UNDETERMINED ABNORMAL ECG NO PREVIOUS ECGS AVAILABLE Confirmed by MD PEDERSON VINAYAK ([id number]) on 07/12/2024 8:57:12 PM Test Reason : [place] Location : 191 : [place] 0107 Overread By : MD PEDERSON VINAYAK Edited By : MD PEDERSON VINAYAK Referred By : , Acquired by : JAVAD DALTON NURSING PROG Observed: 07/08/2024 9:00 PM Status: COMPLETED Source: [facility] HNO ID: [id number] Author: CHRIS COLLAZO, JASON Service: ? Author Type: Registered Nurse Type: Nursing Progress Note Filed: 07/09/2024 00:33 Note Text: Assumed care of patient at 1930, patient sitting up in chair and assisted back to bed. Patient continues to c/o heart burn patient states that when this happens sometimes he needs to take a whole bunch of tums patient also c/o nausea and left knee pains. When asked he states this is normal for him. POX 95% on RA. Patient offered and provided with francois al and saltines. He was also repositioned in bed to a sitting position for comfort. LIP paged and made aware of patients request for tums. Orders obtained to initiate Protonix 40 mg po Daily, first dose now. 25mg po tramadol and 40mg pantoprazole administered at 2042. Will continue to closely monitor pt throughout shift and follow plan of care/ SOCIAL WORK Observed: 07/08/2024 3:17 PM Status: COMPLETED Source: [facility] HNO ID: [id number] Author: LEIA GODWIN LSW Service: Social Work Author Type: Clinician Oncology Type: Social Work Filed: 07/08/2024 16:17 Note Text: Summary: [facility] SOCIAL WORK PROGRESS NOTE Name: Nick Arora Referral to [facility] per family's request. [facility] is at capacity and cannot accept patient. Sent referral to [facility] which is also affiliated with . [facility] not in network with patient's insurance. [facility] not able to accept. 4:10 pm Patient called his dtr Carmina re: [facility]. She is okay with sending referral to another agency with high ratings. Patient told which agency he does not want. Patient says his [id number] works for agencies and she may be able to find him an agency that goes to his location. Signature: ALPA Black Date: July 08, 2024 Time: 3:17 PM THERAPY NT Observed: 07/08/2024 2:23 PM Status: COMPLETED Source: [facility] HNO ID: [id number] Author: NANCIE CHRISTINE PTA Service: Physical Therapy Author Type: Tug Hand Type: Therapy (PT/OT/Speech/Resp) Filed: 07/08/2024 14:24 Note Text: Attestation signed by Hilary Reese, PT at 07/09/2024 8:33 AM I reviewed and agree with the documentation corresponding to this therapy visit. SIGNATURE: Hilary Reese PT DATE: July 09, 2024 TIME: 8:33 AM Physical Therapy Halfway Facility Treatment Summary SERVICE DATE: 07/08/2024 SERVICE TIME: 1330 to 1400 ROOM: [place] [address] PT 6 Clicks Score: 23 DISCHARGE RECOMMENDATIONS Home PT Recommended Discharge Disposition Comments: Home PT with 27/04 supervision from spouse, but not physical assist Anticipated Discharge Needs: Family Training, Supervision at Home Recommended Discharge Equipment: To Be Determined GOALS Patient will demonstrate progress with functional mobility to allow safe discharge to home with available support and/or physical assistance. Able to Perform HEP with: Independent Rolling with: Modified Independent Transfer Supine to/from Sit with: Modified Independent Transfer Sit to/from Stand with: Supervision Ambulate with: Supervision Distance: 150+ Device: Wheeled Walker ROM: L knee 100 flexion,-2 extension Goal: 10 MWT > 0.75 m/s Rehab Potential: Good Progress Toward Goals: Progressing as expected ASSESSMENT Response to Therapy Interventions: Good Participation in Activities patient demonstrates more fluid gati pattern, fatigue present Plan for Next Visit: Gait Training, Exercise Instruction/Handout PRECAUTIONS Fall Risk, Total Knee Replacement, Weight Bearing Restrictions L TKA and WBAT, MIRANDA jah, fall risk, Parkinson's Left Lower Extremity Weight Bearing Status: WBAT SUBJECTIVE iim very tired I will try rated pain 5/10 FUNCTIONAL STATUS Bed Mobility Rolling: Supervision Supine To Sit: Stand By Assistance Sit to Supine: Supervision Scooting: Stand By Assistance Transfers Sit To Stand: Stand By Assistance Stand To Sit: Stand By Assistance Bed to Chair Contact Guard Assistance Bed To Chair Transfer Type: Stepping Bed To Chair Transfer Equipment: Gait Belt, Wheeled Walker Gait Stand By Assistance Gait Device: Wheeled Walker Gait Distance (feet): 100 ft Stairs Contact Guard Assistance Stairs Device: Rail Number of Stairs: 8 CURRENT HOSPITAL COURSE Patient is a 64 year old male presenting from [facility] from 07/03-07/05 for YUMIKO, hypotension, WBC of 24, distended gallbladder with mild wall thickening per CT abdomen. Conley removed during stay. Recent elective L TKA 06/22 at [facility]. Patient now presents motivated to return to home setting with 27/04 supervision and assist from spouse. Relevant Past Medical History: HTN, HFrEF, T2DM, Parkinson's disease, Possible stroke per daughter, L TKA 06/22/24; HOME LIVING Patient Lives With: Spouse (FIrst floor apartment) Assistance Available: 24-Hour (spouse cannot physically assist due to LBP) Entry To Home: No Stairs Number Of Stairs To Bed/Bath: 0 Tub/Shower Type: tub shower bench Laundry: same level- spouse completes Equipment Owned: Commode- 3 in 1, Extended Tub Bench, Walker- Wheeled, Other: See Comment (transport chair) PRIOR FUNCTIONAL LEVEL Required Assistance Assistance Required With: Medication Management, Shopping, Self Care Pt was GA with mobility; limited distances d/t pain in knee; pt would use cart in grocery store, no AD in house; Pt typically sleeps in recliner. He required assist w/ bathing and LB dressing; Spouse does most meals, laundry and cleaning; +driving Per chart, pt and spouse have hoarding tendencies so there is limited space in home. Spouse is 80 y/o and unable to physically assist pt. One fall at home, no injuries. Diagnosed with Parkinson's February 2024 Independent with medication with diffculty THERAPY DIAGNOSIS Reduced mobility-other, Muscle Weakness (generalized), Difficulty walking-musculoskeletal TREATMENT INTERVENTIONS Therapeutic Exercise (45763), Gait Training (29907) Timed Code Treatment (minutes): 30 Skilled Treatment Time (minutes): 30 EXERCISE Exercises Exercise: nu-step L3 15 min. TRAINING AND EDUCATION PROVIDED Assistive Device Use, Exercise Program, Gait Pattern, Reduction of Deviations, Expected Functional Level, Precautions/Restrictions, Transfers THERAPEUTIC SKILLS USED Activity Dosing, Cues for Sequencing/Proper Technique for Activity, Cuing Verbal, Cuing Visual, Postural Alignment Correction PLAN PT Frequency: (7x 7 days) Treatment Interventions: Education, Self Care / Home Management, Energy Conservation Training, Joint Mobility, Strengthening, Functional Mobility Training, Balance Training, Neuromuscular Re-education, Wound Care Management, Modalities, Edema Management, Pain Management SIGNATURE: Nancie Christine PTA PATIENT NAME: Nick Arora DATE: July 08, 2024 TIME: 2:23 PM CASE MANAGEM Observed: 07/08/2024 1:33 PM Status: COMPLETED Source: [facility] HNO ID: [id number] Author: JULIANNA GREWAL RN Service: Care Management Author Type: Registered Nurse Type: Care Mgt Progress Note Filed: 07/08/2024 13:36 Note Text: CASE MANAGEMENT PROGRESS NOTE SERVICE DATE: 07/08/2024 SERVICE TIME: 1:33 PM Met with pt at bedside to discuss discharge planning. Pt plans to go to [place] to stay with his daughter Carmina. Spoke with Carmina on phone in pts room. Carmina is coming back to [place] this week and will stay with pt and see how he progresses then plans to take him to [place] with her. Both pt and daughter agreeable to [facility]. Pt and daughter aware of insurance review due 07/11 and insurance will deny any further skilled stay. Plan for discharge home 07/14. Will f/u with daughter Wednesday 07/11. SIGNATURE: Julianna Grewal RN PATIENT NAME: Nick Arora DATE: July 08, 2024 TIME: 1:33 PM PAGER/CONTACT #: [phone] PROGRESS Observed: 07/08/2024 1:16 PM Status: COMPLETED Source: [facility] HNO ID: [id number] Author: IRMA SALAZAR APRN.CNP Service: Hospital Medicine Author Type: Nurse Practitioner Type: Progress Notes Filed: 07/08/2024 13:26 Note Text: DEPARTMENT OF HOSPITAL MEDICINE PROGRESS NOTE SERVICE DATE: 07/08/2024 SERVICE TIME: 1:16 PM Hospital Medicine/Primary Attending: Aurelio Sanders MD NIGHT AND WEEKEND COVERAGE: [facility] Medicine MARIA D 7a-7p Page [phone] 7p-7a Subjective INTERVAL HPI: - patient sitting in common area, visiting with his family. - reports pain is more controlled since extra dose of tylenol. Requesting to not use Oxycodone, but okay to try Tramadol. - asking about flying vs. Driving to [place] once he is DCd to stay with his . - educated on risk of flying/driving following surgery for 4-6 weeks. Patient verbalized understanding and plans to wait until end of July to drive down and states he will stop every 2 hours to ambulate. - no SOB, Constipation, and tolerating food well. - soft BP This morning, thus holding parameters placed on Clonidine; if continues to run low, would likely DC Clonidine Current Facility-Administered Medications Medication Dose Route Frequency apixaban 2.5 mg tab(s) (ELIQUIS) 2.5 mg ORAL BID aspirin 81 mg chewable tab(s) 81 mg ORAL DAILY amLODIPine 10 mg tab(s) (NORVASC) 10 mg ORAL DAILY atorvastatin 20 mg tab(s) (LIPITOR) 20 mg ORAL AT BEDTIME cloNIDine HCl 0.2 mg tab(s) (CATAPRES) 0.2 mg ORAL BID spironolactone 25 mg tab(s) (ALDACTONE) 25 mg ORAL DAILY dapagliflozin propanediol 10 mg tab(s) (FARXIGA) 10 mg ORAL DAILY WITH BREAKFAST citalopram 40 mg tab(s) (CeleXA) 40 mg ORAL DAILY carbidopa-levodopa 25-100 mg 1 tablet (SINEMET 25-100) 1 tablet ORAL 3 times per day senna-docusate 8.6-50 mg 1 tablet (SENNA-S) 1 tablet ORAL BID polyethylene glycol 3350 17 g packet 17 g ORAL BID magnesium hydroxide 400 mg/5 mL 30 mL (MOM) 30 mL ORAL DAILY PRN acetaminophen 1,000 mg tab(s) (TYLENOL) 1,000 mg ORAL q 8 H oxyCODONE IR 5 mg tab(s) (ROXICODONE) 5 mg ORAL q 4 H PRN ondansetron orally disintegrating 4 mg tab(s) (ZOFRAN ODT) 4 mg ORAL q 12 H PRN cephALEXin 500 mg cap(s) (KEFLEX) 500 mg ORAL q 12 H lisinopril 10 mg tab(s) (ZESTRIL) 10 mg ORAL DAILY calcium carbonate 1,000 mg chewable tab(s) (TUMS) 1,000 mg ORAL BID PRN tamsulosin 0.8 mg cap(s) (FLOMAX) 0.8 mg ORAL DAILY Followed by [START ON 07/12/2024] tamsulosin 0.4 mg cap(s) (FLOMAX) 0.4 mg ORAL DAILY Objective PHYSICAL EXAM: BP 118/60 Pulse 77 Temp (Src) 97.5 (Oral) Resp 16 Ht 5' 11 (1.80m) Wt 219 lb 2.2 oz (99.4kg) SpO2 92% BMI 30.58 kg/(m2). O2 Therapy: Room Air Physical Exam Performed GENERAL: Alert, no distress, cooperative SKIN: Skin color, texture, turgor normal. No rashes. HEAD/SINUSES: No significant findings, NC/AT LUNGS: Lungs clear to auscultation, Good diaphragmatic excursion CARDIAC: No murmur, RRR ABDOMEN: Abdomen soft, non-tender, BS normal EXTREMITIES: + left knee surgical scar well approximated with minimal post-op edema. Extremities without clubbing or skin discoloration. Good capillary refill. NEURO: Grossly normal cognition, Sensation grossly intact. + resting tremors. PULSES: 2+ radial, 2+ dorsalis pedis Lines, Drains, and Airways None Patient does not currently have any lines, drains or airways. DATA: Diagnostic tests reviewed for today's visit: Most recent labs Assessment/Plan Problem List Assessment AND Plan Aftercare UTI (urinary tract infection) YUMIKO (acute kidney injury) (HCC) Status post total left knee replacement Essential (primary) hypertension Mild depression Type 2 diabetes mellitus without complication, without long-term current use of insulin (HCC) Chronic combined systolic and diastolic heart failure (HCC) Parkinson's disease with dyskinesia (HCC) Acute urinary retention Malnutrition of mild degree (HCC) Nausea and vomiting Hypotension HOSPITAL COURSE: Nick Arora is a 64 year old male with PMH DMII, BPH, Parkinson's disease, depression, diastolic HF, admitted to [facility] on 06/22/2024 for elective left total knee replacement. Patient underwent surgery on 06/22/[address] Ge. Post-op course was complicated by YUMIKO, thus Lisinopril-HCTZ/Aldactone were held. Patient received IVF and Cr trended down (1.48 on 06/27/2024). Ortho recommended Eliquis BID x14 days. Ortho also recommended WBAT LLE and encourage ROM to LLE. Follow up appointment was scheduled for 07/06/2024. Patient was noted to be constipated and tap water enema was given without much success. Patient was discharged with Conley in place due to acute urinary retention noted on admission to [place] [facility]. Patient was evaluated by therapy, thus patient was transferred to [facility] for further services. Patient was progressing well while at [facility] and successfully passed voiding trial. On 07/02/2024 patient had hypotensive episode without acute symptoms and routine labs were checked that showed worsening of YUMIKO and significant WBC elevation to >20K. UA showed a UTI. Given the significant YUMIKO and UTI, a CT AP was performed that showed a dilated gallbladder and recommended RUQ. Given patient significant YUMIKO, WBC elevation, and CT AP findings, it was deemed appropriate to transfer patient to [facility] for higher level of care. Patient was admitted to [facility] on 07/03/2024. Urine cx noted 10,000 -<50,000 CFU/ml Gram negative bacilli. Patient was treated with IV Ceftriaxone and leukocytosis improved to 11k; transitioned to PO ATB at [place]. Patient received IVF and BP normalized; anti-HTN meds restarted slowly and tolerated Amlodipine/Clonidine. YUMIKO improved with IVF. Lisinopril dose was decreased and HCTZ was stopped. RUQ US was negative for gallbladder findings and GI did not recommend any further intervention. Once medically stable, patient was transferred back to [facility] for further services. Obesity Class I (BMI 30-34.9) Principal Problem: Aftercare - Hospitalization Dates: 07/03/2024-07/05/2024 - previous admits-- 06/29-07/03/24 [facility]; 06/22-06/29/24 [facility] - Hospitalization Diagnosis: hypotension/YUMIKO - Discharge Facility: [facility] - PT/OT Consult - Nutrition Consult - Case Management Consult for Discharge Planning - Pain Control: scheduled tylenol; PRN oxycodone - DVT Prophylaxis: Eliquis BID until 07/14/2024 - PT/OT Restrictions: WBAT LLE - Current Living Situation: home with family - Code Status: FULL CODE Active Problems: UTI (urinary tract infection) - Urine cx: 10,000 -<50,000 CFU/ml Gram negative bacilli - treated with IV Ceftriaxone and transitioned to PO ATB - leukocytosis improved to 11k by DC - continue PO Keflex until 07/10/2024 - repeat labs on 07/10/2024 YUMIKO (acute kidney injury) (HCC) - Cr as high as 1.76, but trended down to 1.20 with IVF - Lisinopril dose was decreased and HCTZ was stopped - resume Aldactone on 07/06/2024 - avoid nephrotoxins when able - repeat labs on 07/10/2024 Status post total left knee replacement - Elective surgery on 06/22/[address] Felipe - pain control with bowel regimen - WBAT LLE; Encourage ROM - Eliquis BID until 07/14/2024; continue daily ASA - PRN ice - f/u with Ortho on 07/06/2024-- recs for further ROM exercises Hypotension-- RESOLVED Essential (primary) hypertension - noted to be hypotensive and responded with IVF at [place] - Lisinopril dose was decreased and HCTZ was stopped at [place] - Continue Amlodipine, Aldactone, Lisinopril - continue Clonidine with holding parameters Nausea and Vomiting-- RESOLVED - CT ABD/PEL-- Mildly distended gallbladder with mild wall thickening - RUQ US negative gallbladder - GI consulted at [place] who recommended no further intervention - PRN Zofran and TUms Mild depression - Continue Celexa Type 2 diabetes mellitus without complication, without long-term current use of insulin (HCC) - diet controlled at home; no longer on Metformin - last A1C 4 months ago-- 6.4% Chronic combined systolic and diastolic heart failure (HCC) - Last ECHO 04/2024-- There is mild concentric left ventricular hypertrophy. Left ventricular systolic function is normal. EF = 54 ? 5% (2D biplane). Grade I left ventricular diastolic dysfunction. - continue Aldactone and Farxiga Parkinson's disease with dyskinesia (HCC) - resting tremor present - continue Sinemet Acute Urinary retention-- RESOLVED - passed voiding trial prior to transfer to [place] - was noted to have difficulty urinating at [place] - Flomax dose was increased at [place]-- continue x1 week, then can reduce dose back to 0.4mg daily Malnutrition of mild degree (HCC) - Power System Electrical Engineer consulted - supplements per orders Malnutrition Diagnosis supported by Registered Dietitian:Mild Protein-Calorie Malnutrition Based on: Insufficient Energy Intake Assessment: I have reviewed the result of the malnutrition assessment and plan and agree Plan: Diet, Supplements Medication and Non-Pharmacologic VTE Prophylaxis/Anticoagulants Anticoagulant AND Antiplatelet Medications (From admission, onward) Start Dose Route Frequency Last Action Ordered Stop 07/06/24 0900 aspirin 81 mg chewable tab(s) 81 mg ORAL DAILY Given, 07/08 82507/05/24 1524 -- 07/05/24 2100 apixaban 2.5 mg tab(s) (ELIQUIS) 2.5 mg ORAL 2 TIMES DAILY Given, 07/08 82707/05/24 1524 07/14/24 20507/07/24 1045 graduated compression stockings ([place] 07/05/24 1530 vte current anticoag therapy ([place] 07/05/24 1530 activity - mobilize [place] ([place] VTE Prophylaxis: VTE prophylaxis appropriate Disposition: Home with [facility] Plan of care discussed with Provider, RN, Patient Plan communicated to: Family updated on POC and all questions answered. SIGNATURE: Irma Salazar APRN.CNP PATIENT NAME: Nick Arora DATE: July 08, 2024 TIME: 1:16 PM THERAPY NT Observed: 07/08/2024 12:18 PM Status: COMPLETED Source: [facility] HNO ID: [id number] Author: AYLEEN SÁNCHEZ OT/L Service: ? Author Type: Occupational Therapist Type: Therapy (PT/OT/Speech/Resp) Filed: 07/08/2024 12:18 Note Text: Occupational Therapy Halfway Facility Treatment Summary SERVICE DATE: 07/08/2024 SERVICE TIME: 1119 to 1152 ROOM: [place] [address] OT 6 Clicks Score: 19 DISCHARGE RECOMMENDATIONS Home OT Recommended Discharge Disposition Comments: Pt states spouse can assist with meals and light ADL tasks; home health recommended upon discharge Anticipated Discharge Needs: Family Training, Supervision at Home Recommended Discharge Equipment: ADL Kit, Walker bag/basket, To Be Determined GOALS Patient will demonstrate progress with self-care, cognitive and/or coping needs identified to allow safe discharge to home with available support and/or physical assistance. Lower Body Bathing with: Stand By Assistance Lower Body Dressing with: Stand By Assistance Toilet Hygiene with: Stand By Assistance Chair Transfer with: Stand By Assistance Toilet Transfer with: Stand By Assistance Tub Transfer with: Contact Guard Assistance Tolerate (minutes of functional activity): 50 Functional Activity with: Stand By Assistance Kitchen Mobility Tasks with: Stand By Assistance Progress Toward Goals: Progressing as expected Rehab Potential: Good ASSESSMENT Response to Therapy Interventions: Good Participation in Activities Pt began instruction for lower body dressing with some repetiton needed. Plan for Next Visit: Bed Mobility, Chair/Commode Transfer Training, Dressing Training, Energy Conservation, Grooming Training, Sit to Stand Transfers, Standing Balance, Standing Tolerance, Toileting Instruction PRECAUTIONS Fall Risk, Total Knee Replacement, Weight Bearing Restrictions L TKA and WBAT, MIRANDA hose, fall risk, Parkinson's Left Lower Extremity Weight Bearing Status: WBAT SUBJECTIVE I won't be able to reach my feet withour twisting my knee. FUNCTIONAL STATUS Activities of Daily Living Assist Level Additional Information Feeding Independent Grooming Set Up Bathing Upper Body Set Up Bathing Lower Body Minimal Assistance, Additional Information Dressing Upper Body Set Up Dressing Lower Body Minimal Assistance, Moderate Assistance, Additional Information began instruction using adaptive equipment to erick/doff socks. Pt may need continued repetition but Pt did improve by the end of the session. Toileting Minimal Assistance, Additional Information Instrumental Activities of Daily Living Assist Level Additional Information Meal/Beverage Prep Maximal Assistance Cleaning Total Assistance Laundry Maximal Assistance Medication Management with Strategies Mobility Assist Level Additional Information Bed Mobility Supine To Sit: Contact Guard Assistance cues for step by step Sit To Supine: Stand By Assistance Sit to Stand Contact Guard Assistance Stand to Sit Contact Guard Assistance Bed to Chair Contact Guard Assistance Bed To Chair Transfer Type: Stepping Bed To Chair Transfer Equipment: Wheeled Walker, Gait Belt Toilet/Commode Contact Guard Assistance Shower Contact Guard Assistance Functional Mobility Contact Guard Assistance Functional Mobility Device: Wheeled Walker CURRENT HOSPITAL COURSE Patient is a 64 year old male presenting from [facility] from 07/03-07/05 for YUMIKO, hypotension, WBC of 24, distended gallbladder with mild wall thickening per CT abdomen. Conley removed during stay. Recent elective L TKA 06/22 at [facility]. Patient now presents motivated to return to home setting with 27/04 supervision and assist from spouse. Relevant Past Medical History: HTN, HFrEF, T2DM, Parkinson's disease, Possible stroke per daughter, L TKA 06/22/24; HOME LIVING Patient Lives With: Spouse (FIrst floor apartment) Assistance Available: 24-Hour (spouse cannot physically assist due to LBP) Entry To Home: No Stairs Number Of Stairs To Bed/Bath: 0 Tub/Shower Type: tub shower bench Laundry: same level- spouse completes Equipment Owned: Commode- 3 in 1, Extended Tub Bench, Walker- Wheeled, Other: See Comment (transport chair) PRIOR FUNCTIONAL LEVEL Required Assistance Assistance Required With: Medication Management, Shopping, Self Care Pt was GA with mobility; limited distances d/t pain in knee; pt would use cart in grocery store, no AD in house; Pt typically sleeps in recliner. He required assist w/ bathing and LB dressing; Spouse does most meals, laundry and cleaning; +driving Per chart, pt and spouse have hoarding tendencies so there is limited space in home. Spouse is 80 y/o and unable to physically assist pt. One fall at home, no injuries. Diagnosed with Parkinson's February 2024 Independent with medication with diffculty Baseline Cognition: Oriented to self, Oriented to place, Oriented to time, Oriented to situation COGNITION THERAPY DIAGNOSIS Reduced mobility-other, Decreased activities of daily living (ADL), Muscle Weakness (generalized), Unsteadiness on feet TREATMENT INTERVENTIONS Therapeutic Activity (23570), Self Chcf Management (32845) Timed Code Treatment (minutes): 33 Skilled Treatment Time (minutes): 33 EXERCISE None performed this session TRAINING AND EDUCATION PROVIDED Adaptive Equipment/DME, Bed Mobility, Energy Conservation, Lower Extremity Dressing THERAPEUTIC SKILLS USED Activity Dosing, Cues for Sequencing/Proper Technique for Activity, Repetitive Task Learning, Therapeutic Use of Self PLAN OT Frequency: 3 Times Per Week (33-6 times per week x 7-10 days) Treatment Interventions: Education, Self Care/Home Management, Energy Conservation Training, Strengthening, Functional Mobility Training, Balance Training SIGNATURE: Ayleen Sánchez OT/L PATIENT NAME: Nick Arora DATE: July 08, 2024 TIME: 12:18 PM NURSING PROG Observed: 07/08/2024 12:16 PM Status: COMPLETED Source: [facility] HNO ID: [id number] Author: SUMIT AKINS, RN Service: Nursing Author Type: Registered Nurse Type: Nursing Progress Note Filed: 07/08/2024 12:17 Note Text: Other: ambulated from room to solarium with gait belt and walker. Family visiting with pt. Call soto in reach. THERAPY NT Observed: 07/08/2024 10:36 AM Status: COMPLETED Source: [facility] HNO ID: [id number] Author: LARY BOB PT Service: Physical Therapy Author Type: Tug Hand Type: Therapy (PT/OT/Speech/Resp) Filed: 07/08/2024 13:04 Note Text: Attestation signed by Lary Bob PT at 07/08/2024 1:04 PM I reviewed and agree with the documentation corresponding to this therapy visit. SIGNATURE: Lary Bob PT DATE: July 08, 2024 TIME: 1:04 PM Physical Therapy Halfway Facility Treatment Summary SERVICE DATE: 07/08/2024 SERVICE TIME: 0900 to 1000 ROOM: [place] [address] PT 6 Clicks Score: 23 DISCHARGE RECOMMENDATIONS Home PT Recommended Discharge Disposition Comments: Home PT with 27/04 supervision from spouse, but not physical assist Anticipated Discharge Needs: Family Training, Supervision at Home Recommended Discharge Equipment: To Be Determined GOALS Patient will demonstrate progress with functional mobility to allow safe discharge to home with available support and/or physical assistance. Able to Perform HEP with: Independent Rolling with: Modified Independent Transfer Supine to/from Sit with: Modified Independent Transfer Sit to/from Stand with: Supervision Ambulate with: Supervision Distance: 150+ Device: Wheeled Walker ROM: L knee 100 flexion,-2 extension Goal: 10 MWT > 0.75 m/s Rehab Potential: Good Progress Toward Goals: Progressing as expected ASSESSMENT Response to Therapy Interventions: Good Participation in Activities patient ROM has improved, able to get in and out of bed with use of bed rails, able to ascent an descend stairs 1x vc up with good down with bad. good effort and improvement noted. Plan for Next Visit: (continue focus on increasing ROM) PRECAUTIONS Fall Risk, Total Knee Replacement, Weight Bearing Restrictions L TKA and WBAT, MIRANDA tyson, fall risk, Parkinson's Left Lower Extremity Weight Bearing Status: WBAT SUBJECTIVE Patient states he is thinking of going to [place] with his daughter but unsure had questions regarding plane vs car blood clots etc. refer to irma. Patient stated he can now get in and out of bed using his bed rails.rated pain 5/10 FUNCTIONAL STATUS Bed Mobility Rolling: Supervision Supine To Sit: Minimal Assistance (w/upper body difficult due to patients stomach inhibits him) Sit to Supine: Supervision (able to lift LE into bed bed mobility improved with VC and tech instruction on scooting up in bed) Scooting: Stand By Assistance (vc for tech) Transfers Sit To Stand: Stand By Assistance Stand To Sit: Stand By Assistance Bed to Chair Contact Guard Assistance Bed To Chair Transfer Type: Stepping Bed To Chair Transfer Equipment: Gait Belt, Wheeled Walker Gait Stand By Assistance Gait Device: Wheeled Walker Gait Distance (feet): 100 ft Stairs Contact Guard Assistance Stairs Device: Rail Number of Stairs: 8 CURRENT HOSPITAL COURSE Patient is a 64 year old male presenting from [facility] from 07/03-07/05 for YUMIKO, hypotension, WBC of 24, distended gallbladder with mild wall thickening per CT abdomen. Conley removed during stay. Recent elective L TKA 06/22 at [facility]. Patient now presents motivated to return to home setting with 27/04 supervision and assist from spouse. Relevant Past Medical History: HTN, HFrEF, T2DM, Parkinson's disease, Possible stroke per daughter, L TKA 06/22/24; HOME LIVING Patient Lives With: Spouse (FIrst floor apartment) Assistance Available: 24-Hour (spouse cannot physically assist due to LBP) Entry To Home: No Stairs Number Of Stairs To Bed/Bath: 0 Tub/Shower Type: tub shower bench Laundry: same level- spouse completes Equipment Owned: Commode- 3 in 1, Extended Tub Bench, Walker- Wheeled, Other: See Comment (transport chair) PRIOR FUNCTIONAL LEVEL Required Assistance Assistance Required With: Medication Management, Shopping, Self Care Pt was GA with mobility; limited distances d/t pain in knee; pt would use cart in grocery store, no AD in house; Pt typically sleeps in recliner. He required assist w/ bathing and LB dressing; Spouse does most meals, laundry and cleaning; +driving Per chart, pt and spouse have hoarding tendencies so there is limited space in home. Spouse is 80 y/o and unable to physically assist pt. One fall at home, no injuries. Diagnosed with Parkinson's February 2024 Independent with medication with diffculty THERAPY DIAGNOSIS Reduced mobility-other, Muscle Weakness (generalized), Difficulty walking-musculoskeletal TREATMENT INTERVENTIONS Therapeutic Exercise (05844), Therapeutic Activity (32415), Gait Training (26458) Timed Code Treatment (minutes): 60 Skilled Treatment Time (minutes): 60 EXERCISE Exercises Exercise Performed: Ankle Pumps, Heel Slides, SAQ (nu-step L3 14 min.) Ankle Pumps (number of reps): 10 Heel Slides (number of reps): 15 w/assist of sheet SAQ (number of reps): assit of one could not lift LLE Exercise: Nu-step 14 min. L3 TRAINING AND EDUCATION PROVIDED Assistive Device Use, Exercise Program, Gait Pattern, Reduction of Deviations, Expected Functional Level, Precautions/Restrictions, Transfers THERAPEUTIC SKILLS USED Activity Dosing, Cues for Sequencing/Proper Technique for Activity, Cuing Verbal, Cuing Visual, Postural Alignment Correction PLAN PT Frequency: (7x 7 days) Treatment Interventions: Education, Self Care / Home Management, Energy Conservation Training, Joint Mobility, Strengthening, Functional Mobility Training, Balance Training, Neuromuscular Re-education, Wound Care Management, Modalities, Edema Management, Pain Management SIGNATURE: Nancie Christine PTA PATIENT NAME: Nick Arora DATE: July 08, 2024 TIME: 10:36 AM THERAPY NT Observed: 07/07/2024 4:53 PM Status: COMPLETED Source: [facility] HNO ID: [id number] Author: ESTRELLA MORRISON OTR/L Service: Occupational Therapy Author Type: Alignment Specialist Type: Therapy (PT/OT/Speech/Resp) Filed: 07/08/2024 07:38 Note Text: Attestation signed by Estrella Morrison OTR/L at 07/08/2024 7:38 AM I reviewed and agree with the documentation corresponding to this therapy visit. SIGNATURE: NICHOLAS Jones DATE: July 08, 2024 TIME: 7:38 AM Occupational Therapy Halfway Facility Treatment Summary SERVICE DATE: 07/07/2024 SERVICE TIME: 1458 to 1553 ROOM: [place] [address] OT 6 Clicks Score: 19 DISCHARGE RECOMMENDATIONS Home OT Recommended Discharge Disposition Comments: Pt states spouse can assist with meals and light ADL tasks; home health recommended upon discharge Anticipated Discharge Needs: Family Training, Supervision at Home Recommended Discharge Equipment: ADL Kit, Walker bag/basket, To Be Determined GOALS Patient will demonstrate progress with self-care, cognitive and/or coping needs identified to allow safe discharge to home with available support and/or physical assistance. Lower Body Bathing with: Stand By Assistance Lower Body Dressing with: Stand By Assistance Toilet Hygiene with: Stand By Assistance Chair Transfer with: Stand By Assistance Toilet Transfer with: Stand By Assistance Tub Transfer with: Contact Guard Assistance Tolerate (minutes of functional activity): 50 Functional Activity with: Stand By Assistance Kitchen Mobility Tasks with: Stand By Assistance Progress Toward Goals: Progressing as expected Rehab Potential: Good ASSESSMENT Response to Therapy Interventions: Good Participation in Activities, Pain, Requires Additional Time to Complete Activities Pt completing showering this day with much fatigue by end of session. Pt would benefit from continued endurance and LB dressing training in order to increase (I) in daily tasks and routines. Plan for Next Visit: Bed Mobility, Chair/Commode Transfer Training, Dressing Training, Energy Conservation, Grooming Training, Sit to Stand Transfers, Standing Balance, Standing Tolerance, Toileting Instruction PRECAUTIONS Fall Risk, Total Knee Replacement, Weight Bearing Restrictions L TKA and WBAT, MIRANDA hose, fall risk, Parkinson's Left Lower Extremity Weight Bearing Status: WBAT SUBJECTIVE Pt amenable to OT. Reporting fatigue but willing to attempt session. FUNCTIONAL STATUS Activities of Daily Living Assist Level Additional Information Feeding Independent Grooming Set Up Bathing Upper Body Set Up Bathing Lower Body Minimal Assistance, Additional Information shower level. Shower chair, grab bars, HHSH in use. Assist for throughness in posterior hygeine and standing. Dressing Upper Body Set Up Dressing Lower Body Moderate Assistance Toileting Minimal Assistance, Additional Information Continent of stool with nsg notified. Pt able to stand to complete posterior hygiene with Margot for standing balance and wipe gathering d/t need for unilateral support on FWW> Instrumental Activities of Daily Living Assist Level Additional Information Meal/Beverage Prep Maximal Assistance Cleaning Total Assistance Laundry Maximal Assistance Medication Management with Strategies Mobility Assist Level Additional Information Bed Mobility Supine To Sit: Minimal Assistance From flat bad, use of rail. Assist needed to remain upright as pt would consistently fall backwards back onto bed. Sit To Supine: Stand By Assistance Sit to Stand Contact Guard Assistance Stand to Sit Contact Guard Assistance Bed to Chair Contact Guard Assistance Bed To Chair Transfer Type: Stepping Bed To Chair Transfer Equipment: Wheeled Walker, Gait Belt Toilet/Commode Contact Guard Assistance Shower Contact Guard Assistance Functional Mobility Contact Guard Assistance Functional Mobility Device: Wheeled Walker CURRENT HOSPITAL COURSE Patient is a 64 year old male presenting from [facility] from 07/03-07/05 for YUMIKO, hypotension, WBC of 24, distended gallbladder with mild wall thickening per CT abdomen. Conley removed during stay. Recent elective L TKA 06/22 at [facility]. Patient now presents motivated to return to home setting with 27/04 supervision and assist from spouse. Relevant Past Medical History: HTN, HFrEF, T2DM, Parkinson's disease, Possible stroke per daughter, L TKA 06/22/24; HOME LIVING Patient Lives With: Spouse (FIrst floor apartment) Assistance Available: 24-Hour (spouse cannot physically assist due to LBP) Entry To Home: No Stairs Number Of Stairs To Bed/Bath: 0 Tub/Shower Type: tub shower bench Laundry: same level- spouse completes Equipment Owned: Commode- 3 in 1, Extended Tub Bench, Walker- Wheeled, Other: See Comment (transport chair) PRIOR FUNCTIONAL LEVEL Required Assistance Assistance Required With: Medication Management, Shopping, Self Care Pt was GA with mobility; limited distances d/t pain in knee; pt would use cart in grocery store, no AD in house; Pt typically sleeps in recliner. He required assist w/ bathing and LB dressing; Spouse does most meals, laundry and cleaning; +driving Per chart, pt and spouse have hoarding tendencies so there is limited space in home. Spouse is 80 y/o and unable to physically assist pt. One fall at home, no injuries. Diagnosed with Parkinson's February 2024 Independent with medication with diffculty Baseline Cognition: Oriented to self, Oriented to place, Oriented to time, Oriented to situation COGNITION THERAPY DIAGNOSIS Reduced mobility-other, Decreased activities of daily living (ADL), Muscle Weakness (generalized), Unsteadiness on feet TREATMENT INTERVENTIONS Therapeutic Activity (28863), Self Chcf Management (77389) Timed Code Treatment (minutes): 55 Skilled Treatment Time (minutes): 55 EXERCISE None performed this session TRAINING AND EDUCATION PROVIDED Activity Adaptation/Compensatory Strategies, Adaptive Equipment/DME, Assistive Device Use, Bed Mobility, Benefits of In-Hospital Mobility, Functional Mobility Involving ADLs, Lower Extremity Bathing, Lower Extremity Dressing, Positioning, Precautions/Restrictions, Role of Occupational Therapy, Sitting Balance to Improve Nash with ADLs/Self-Care, Standing Balance to Improve Nash with ADLs/Self-Care, Transfer - Shower, Transfer - Sit to Stand, Upper Extremity Bathing, Upper Extremity Dressing THERAPEUTIC SKILLS USED Activity Dosing, Assessment of Tolerance Including Vitals Response to Activity, Cues for Sequencing/Proper Technique for Activity, Cuing Verbal, Cuing Visual, Physical Assist, Task Analysis Learning, Teach-Back for Education, Therapeutic Use of Self PLAN OT Frequency: 3 Times Per Week (33-6 times per week x 7-10 days) Treatment Interventions: Education, Self Care/Home Management, Energy Conservation Training, Strengthening, Functional Mobility Training, Balance Training SIGNATURE: WILFREDO Aparicio PATIENT NAME: Nick Arora DATE: July 07, 2024 TIME: 4:53 PM THERAPY NT Observed: 07/07/2024 2:21 PM Status: COMPLETED Source: [facility] HNO ID: [id number] Author: HILARY REESE, PT Service: Physical Therapy Author Type: Physical Therapist Type: Therapy (PT/OT/Speech/Resp) Filed: 07/07/2024 14:21 Note Text: Physical Therapy Halfway Facility Treatment Summary SERVICE DATE: 07/07/2024 SERVICE TIME: 1311 to 1352 ROOM: [place] [address] PT 6 Clicks Score: 22 DISCHARGE RECOMMENDATIONS Home PT Recommended Discharge Disposition Comments: Home PT with 27/04 supervision from spouse, but not physical assist Anticipated Discharge Needs: Family Training, Supervision at Home Recommended Discharge Equipment: To Be Determined GOALS Patient will demonstrate progress with functional mobility to allow safe discharge to home with available support and/or physical assistance. Able to Perform HEP with: Independent Rolling with: Modified Independent Transfer Supine to/from Sit with: Modified Independent Transfer Sit to/from Stand with: Supervision Ambulate with: Supervision Distance: 150+ Device: Wheeled Walker ROM: L knee 0-100 with < 2/10 pain via manual therapy/ AROM/ PROM techniques/ bicycle Goal: 10 MWT > 0.75 m/s Rehab Potential: Good Progress Toward Goals: Progressing as expected ASSESSMENT Response to Therapy Interventions: Good Participation in Activities Overall improvement in ambulation this date with improved heel strike during ambulation, continued decrease in pain, and patient tolerating all seated exercises without pain. Emphasis will continue on bed mobility, as this is patient's most difficult movement, though he sleeps in a recliner at home. Continue as tolerated, with patient nearing PLOF, ROM WFL. Plan for Next Visit: Gait Training, Exercise Instruction/Handout PRECAUTIONS Fall Risk, Total Knee Replacement, Weight Bearing Restrictions L TKA and WBAT, MIRANDA tyson, fall risk, Parkinson's Left Lower Extremity Weight Bearing Status: WBAT SUBJECTIVE I don't want this chair if you need it. I don't like it. Agreeable to walking in halls and exercises. FUNCTIONAL STATUS Bed Mobility Rolling: Supervision Supine To Sit: Minimal Assistance (HOB elevated, heavy use of L handrail) Sit to Supine: Supervision (able to bring both LEs onto the bed without assist) Scooting: Stand By Assistance Transfers Sit To Stand: Stand By Assistance (cueing for sequencing) Stand To Sit: Stand By Assistance (again cueing for sequencing) Bed to Chair Contact Guard Assistance Bed To Chair Transfer Type: Stepping Bed To Chair Transfer Equipment: Gait Belt, Wheeled Walker Gait Stand By Assistance Gait Device: Wheeled Walker General Deviations/Observations: (improved L heel strike which at times causes step to gait leading with LLE, however, he is able to achieve knee flexion throughout gait cycle and is also able to decrease WB through the walker) Gait Distance (feet): 150 Stairs Contact Guard Assistance Stairs Device: Rail Number of Stairs: 8 CURRENT HOSPITAL COURSE Patient is a 64 year old male presenting from [facility] from 07/03-07/05 for YUMIKO, hypotension, WBC of 24, distended gallbladder with mild wall thickening per CT abdomen. Conley removed during stay. Recent elective L TKA 06/22 at [facility]. Patient now presents motivated to return to home setting with 27/04 supervision and assist from spouse. Relevant Past Medical History: HTN, HFrEF, T2DM, Parkinson's disease, Possible stroke per daughter, L TKA 06/22/24; HOME LIVING Patient Lives With: Spouse (FIrst floor apartment) Assistance Available: 24-Hour (spouse cannot physically assist due to LBP) Entry To Home: No Stairs Number Of Stairs To Bed/Bath: 0 Tub/Shower Type: tub shower bench Laundry: same level- spouse completes Equipment Owned: Commode- 3 in 1, Extended Tub Bench, Walker- Wheeled, Other: See Comment (transport chair) PRIOR FUNCTIONAL LEVEL Required Assistance Assistance Required With: Medication Management, Shopping, Self Care Pt was GA with mobility; limited distances d/t pain in knee; pt would use cart in grocery store, no AD in house; Pt typically sleeps in recliner. He required assist w/ bathing and LB dressing; Spouse does most meals, laundry and cleaning; +driving Per chart, pt and spouse have hoarding tendencies so there is limited space in home. Spouse is 80 y/o and unable to physically assist pt. One fall at home, no injuries. Diagnosed with Parkinson's February 2024 Independent with medication with diffculty THERAPY DIAGNOSIS Reduced mobility-other, Muscle Weakness (generalized), Difficulty walking-musculoskeletal TREATMENT INTERVENTIONS Therapeutic Exercise (35096), Gait Training (97729) Timed Code Treatment (minutes): 41 Skilled Treatment Time (minutes): 41 EXERCISE Exercises Exercise Performed: (nu-step L3 15 min. Parkinson bal ex. seated only) Exercise: Seated ankle pumps x 30, quad sets x 10 with 2 second holds, SAQs x 5 with trunk extension as a compensatory mechanism (advised against this); abduction/ adduction using slide board under foot for improved ease of movement x 10, and hip flexion x 10. Towel under foot for hamstring curls x 20 with 3 second end range holds. Manual Grade II/III AP of tibia on femur with length of femur stabilized on table and no pain reported x 3 minutes. TRAINING AND EDUCATION PROVIDED Bed Mobility, Assistive Device Use, Anatomy and Impact on Deficits, Discharge Planning, Disease Specific Education, Edema Management, Energy Conservation, Exercise Program, Expected Functional Level, Falls Prevention, Gait Pattern, Reduction of Deviations, Home Safety, Home Set-up/Modifications, Modalities, Precautions/Restrictions THERAPEUTIC SKILLS USED Activity Dosing, Cues for Sequencing/Proper Technique for Activity, Cuing Tactile, Cuing Verbal, Facilitation of Joint Range of Motion, Movement Facilitation, Muscle Activation Facilitation, Physical Assist PLAN PT Frequency: (7x 7 days) Treatment Interventions: Education, Self Care / Home Management, Energy Conservation Training, Joint Mobility, Strengthening, Functional Mobility Training, Balance Training, Neuromuscular Re-education, Wound Care Management, Modalities, Edema Management, Pain Management SIGNATURE: Hilary Reese, PT PATIENT NAME: Nick Arora DATE: July 07, 2024 TIME: 2:21 PM THERAPY NT Observed: 07/07/2024 12:33 PM Status: COMPLETED Source: [facility] HNO ID: [id number] Author: NANCIE CHRISTINE PTA Service: Physical Therapy Author Type: Tug Hand Type: Therapy (PT/OT/Speech/Resp) Filed: 07/07/2024 12:33 Note Text: Attestation signed by Hilary Reese, PT at 07/07/2024 4:03 PM I reviewed and agree with the documentation corresponding to this therapy visit. SIGNATURE: Hilary Reese, PT DATE: July 07, 2024 TIME: 4:03 PM Physical Therapy Halfway Facility Treatment Summary SERVICE DATE: 07/07/2024 SERVICE TIME: 0945 to 1045 ROOM: [place] [address] PT 6 Clicks Score: 18 DISCHARGE RECOMMENDATIONS Home PT Recommended Discharge Disposition Comments: Home PT with 27/04 supervision from spouse, but not physical assist Anticipated Discharge Needs: Family Training, Supervision at Home Recommended Discharge Equipment: To Be Determined GOALS Patient will demonstrate progress with functional mobility to allow safe discharge to home with available support and/or physical assistance. Able to Perform HEP with: Independent Rolling with: Modified Independent Transfer Supine to/from Sit with: Modified Independent Transfer Sit to/from Stand with: Supervision Ambulate with: Supervision Distance: 150+ Device: Wheeled Walker ROM: L knee 0-100 with < 2/10 pain via manual therapy/ AROM/ PROM techniques/ bicycle Goal: 10 MWT > 0.75 m/s Rehab Potential: Good Progress Toward Goals: Progressing as expected ASSESSMENT Response to Therapy Interventions: Good Participation in Activities Patient demonstrates good effort, able to get out of bed with use of rail and UE, did well with ambulation learning heel strike alternating gait pattern, transfers have improved still requires vc for hand placement 10% of time Plan for Next Visit: Gait Training, Exercise Instruction/Handout (PWR moves for bed mobility) PRECAUTIONS Fall Risk, Total Knee Replacement, Weight Bearing Restrictions L TKA and WBAT, MIRANDA hose, fall risk, Parkinson's Left Lower Extremity Weight Bearing Status: WBAT SUBJECTIVE Patient states you aare a god send to this place I really like the slant board that feels great. I can feel t he stretch. I am walker better the heel strike is hard but Im getting it.no one put my miranda hose on Im supposed to be wearing them.I can get in/out of bed. FUNCTIONAL STATUS Bed Mobility Rolling: Supervision (vc for tech) Supine To Sit: (vc for hand placement use of rails and elevated head of bed) Sit to Supine: Minimal Assistance (assist for BLEs due to hamstring tightness, L sided weakness) Scooting: Stand By Assistance Transfers Sit To Stand: Contact Guard Assistance Stand To Sit: Contact Guard Assistance Bed to Chair Contact Guard Assistance Bed To Chair Transfer Type: Stepping Bed To Chair Transfer Equipment: Gait Belt, Wheeled Walker Gait Contact Guard Assistance Gait Device: Wheeled Walker General Deviations/Observations: Antalgic gait, Margareth decreased, Non-functional gait speed, Shuffling Gait, Step length decreased, UE weight bearing on assistive device excessive (decreased heel strike) Gait Distance (feet): 100 ft Stairs Contact Guard Assistance Stairs Device: Rail Number of Stairs: 8 CURRENT HOSPITAL COURSE Patient is a 64 year old male presenting from [facility] from 07/03-07/05 for YUMIKO, hypotension, WBC of 24, distended gallbladder with mild wall thickening per CT abdomen. Conley removed during stay. Recent elective L TKA 06/22 at [facility]. Patient now presents motivated to return to home setting with 27/04 supervision and assist from spouse. Relevant Past Medical History: HTN, HFrEF, T2DM, Parkinson's disease, Possible stroke per daughter, L TKA 06/22/24; HOME LIVING Patient Lives With: Spouse (FIrst floor apartment) Assistance Available: 24-Hour (spouse cannot physically assist due to LBP) Entry To Home: No Stairs Number Of Stairs To Bed/Bath: 0 Tub/Shower Type: tub shower bench Laundry: same level- spouse completes Equipment Owned: Commode- 3 in 1, Extended Tub Bench, Walker- Wheeled, Other: See Comment (transport chair) PRIOR FUNCTIONAL LEVEL Required Assistance Assistance Required With: Medication Management, Shopping, Self Care Pt was GA with mobility; limited distances d/t pain in knee; pt would use cart in grocery store, no AD in house; Pt typically sleeps in recliner. He required assist w/ bathing and LB dressing; Spouse does most meals, laundry and cleaning; +driving Per chart, pt and spouse have hoarding tendencies so there is limited space in home. Spouse is 80 y/o and unable to physically assist pt. One fall at home, no injuries. Diagnosed with Parkinson's February 2024 Independent with medication with diffculty THERAPY DIAGNOSIS Reduced mobility-other, Muscle Weakness (generalized), Difficulty walking-musculoskeletal TREATMENT INTERVENTIONS Therapeutic Exercise (57587), Therapeutic Activity (62745), Gait Training (24747) Timed Code Treatment (minutes): 60 Skilled Treatment Time (minutes): 60 EXERCISE Exercises Exercise Performed: (nu-step L3 15 min. Parkinson bal ex. seated only) Exercise: slant board stretching, nu-step L3 15 min. TRAINING AND EDUCATION PROVIDED Assistive Device Use, Exercise Program, Gait Pattern, Reduction of Deviations, Expected Functional Level, Precautions/Restrictions, Transfers THERAPEUTIC SKILLS USED Activity Dosing, Cues for Sequencing/Proper Technique for Activity, Cuing Verbal, Cuing Visual, Postural Alignment Correction PLAN PT Frequency: (7x 7 days) Treatment Interventions: Education, Self Care / Home Management, Energy Conservation Training, Joint Mobility, Strengthening, Functional Mobility Training, Balance Training, Neuromuscular Re-education, Wound Care Management, Modalities, Edema Management, Pain Management SIGNATURE: Nancie Christine PTA PATIENT NAME: Nick Arora DATE: July 07, 2024 TIME: 12:33 PM CASE MGT JOY CRISTOBAL Observed: 07/07/2024 10:42 AM Status: COMPLETED Source: [facility] HNO ID: [id number] Author: LEIA GODWIN LSW Service: Social Work Author Type: Clinician Oncology Type: Care Mgt Initial Assessment Filed: 07/07/2024 10:47 Note Text: Summary: Initial Assessment CARE MANAGEMENT: ASSESSMENT AND DISCHARGE PLAN SERVICE DATE: July 07, 2024 SERVICE TIME: 9:00 am PCP: Aga Benitez MD Primary Contact: Extended Emergency Contact Information Primary Emergency Contact: Becka Chao Mobile Relation: Daughter Preferred language: [place] Life Skills Specialist needed? No Secondary Emergency Contact: Dank Grier Mobile Relation: Relative Preferred language: [place] CITIZ[place] Life Skills Specialist needed? No Admission Status: Inpatient Swing Insurance Provider: [facility] MEDICARE HMO Discharge Planning requested by: Per Department Practice Potential Transition Plans Home OT/PT Advance Directives: DPOA/HC in EMR Current Living Arrangements and Support Lives with: Spouse/significant other Type of Residence: Private Residence (Apartment or Condo) Does the patient have to climb stairs at home?: No Support: Children, Family members, Spouse/significant other How do you manage to accomplish the following: Independent: Ambulation;Going to the bathroom Needs Assistance: Bathe/Shower;Dress;Meals/Meal Prep;Medication Management Dependent: Transportation to appointments/community Current Services/Equipment Current Post-Acute Service(s): DME Current DME Type: Bedside commode, Shower seat, Rolling walker Discharge Planning Patient Goal(s): Ambulate without stopping, Better mobility, Increase strength, Be able to go home, Independent living [place] Explained: [place] Given: Yes Level of Care Discussed: Home Care (Family requesting [facility] - to see doc) Discharge Planning Participant(s): Patient Patient/Family Comments: I just need to be able to get in/out of bed and walk to the bathroom Caregiver Assessment: Caregiver is ready, willing and able to meet the patient's needs as recommended by the inter-professional team: Yes Name of Caregiver: Claudy (dtr) and Dank (son-in-law) willing to take patient to their home in [place] if needed Transport at Discharge: Family Needs Prior to Discharge: Needs Prior to Discharge: To Be Determined;Facility or Agency Choices;Home Care Order Post-Acute Discharge Plan: Home with [facility] vs to [place] with dtr AND son-in-law (only if really needed, per patient) Patient lives w/ Cathie in a first floor apartment. has chronic back pain. She does not drive. Dtr Carmina and son-in-law Dank from [place] are willing to take patient to their home if needed upon dc. Patient is hoping to return to his apt. SIGNATURE: [place] Black PATIENT NAME: Nick Arora DATE: July 07, 2024 TIME: 10:42 AM CONTACT #: [id number] SOCIAL WORK Observed: 07/06/2024 4:59 PM Status: COMPLETED Source: [facility] HNO ID: [id number] Author: LEIA GODWIN LSW Service: Social Work Author Type: Clinician Oncology Type: Social Work Filed: 07/06/2024 17:01 Note Text: Summary: Team Rounds MULTIDISCIPLINARY ROUNDS SERVICE DATE: 07/06/2024 ADMISSION DATE: 07/05/2024 SERVICE TIME: 12:30 PM ANTICIPATED D/C DATE: TBD Problem List: ACTIVE PROBLEM LIST Mixed Hyperlipidemia Calculus of Kidney Essential (Primary) Hypertension Mild Depression Type 2 Diabetes Mellitus Without Complication, Without Long-Term Current Use of Insulin (Hcc) Chronic Combined Systolic and Diastolic Heart Failure (Hcc) Chronic Bilateral Low Back Pain With Bilateral Sciatica Parkinson's Disease With Dyskinesia ([facility]) Aftercare Status Post Total Left Knee Replacement Acute Urinary Retention Malnutrition of Mild Degree ([facility]) Uti (Urinary Tract Infection) Yumiko (Acute Kidney Injury) ([facility]) Attendees Present at Rounds: CM, RNP, NM< OT, PT, R.D, SW Needs Discussed on Rounds: Discharge Needs Follow Up Appointments Plan of Care Anticipated Discharge Disposition: Home with Home Health Last Vitals: BP 125/71 Pulse 77 Temp (Src) 97.6 (Oral) Resp 18 Ht 5' 11 (1.80m) Wt 219 lb 2.2 oz (99.4kg) SpO2 93% BMI 30.58 kg/(m2). O2 Therapy: Room Air MERCED Lives with Cathie who has chronioc back pain. Dtr Carmina/Dank are contacts. Live in [place]. PT/OT To eval today RN [place] removed today 07/06. Nursing: Discharge Planning Intervention(s) Plan: Assess Home Environment;Coordinate Discharge Planning;Post Discharge Services Discharge Planning Goals/Outcomes: Patient Will be Discharged to an Appropriate Safe Level of Care Discharge Planning Goal Target Achievement Date: 07/12/24 Elimination Bladder/Bowel Intervention(s) Plan: Review Current Medication and Medication History and Administer Medications as Ordered Elimination Bladder/Bowel Goals/Outcomes: Exhibits Increased Interest and Assume Responsibility for Patient's Own/Family Learning by Beginning to Look for Information and Ask Questions Elimination Bladder/Bowel Goal Target Achievement Date: 07/12/24Knowledge Deficit Intervention(s) Plan: Encourage Verbalization of Questions and Concerns;Explain Scheduling and Routine of Care, Test and Procedures;Monitor Lab Values / Test Results Knowledge Deficit Goals/Outcomes: Participate in Learning Process Knowledge Deficit Goal Target Achievement Date: 07/12/24 Mobility Intervention(s) Plan: Advance Mobility;Encourage Patient/Family to Participate in Care;Energy conservation/Fatigue Management;Assist with Ambulation and Transfers Mobility Patient/Family Goals: Demonstrates ability to complete transfers with least level of assist. Mobility Goal Target Achievement Date: 07/12/24 Pain Intervention(s) Plan: Pain Assessment, Management, Reassessment Per Scoring Tool;Provide Quiet and Restful Environment;Review Current Medication and Medication History and Administer Medications as Ordered Pain Goals/Outcomes: Decrease in Pain Level per Scoring Tool Pain Goal Target Achievement Date: 07/12/24Skin Intervention(s) Plan: Assess and Document Skin Condition per Protocol;Administer Treatments and Medications;Review Current Medication and Medication History and Administer Medications as Ordered Skin Goals/Outcomes: Patient's Skin Integrity Maintained or Improved Skin Goal Target Achievement Date: 07/12/24 DOCUMENTED BY: [place] Black PATIENT NAME: Nick Arora DATE: July 06, 2024 TIME: 4:59 PM CSN: [id number] THERAPY NT Observed: 07/06/2024 4:27 PM Status: COMPLETED Source: [facility] HNO ID: [id number] Author: ROLA STEVENS OTR/L Service: Occupational Therapy Author Type: Occupational Therapist Type: Therapy (PT/OT/Speech/Resp) Filed: 07/06/2024 16:27 Note Text: Summary: OT Evaluation Occupational Therapy Halfway Facility Evaluation Summary SERVICE DATE: 07/06/2024 SERVICE TIME: 1300 to 1335 ROOM: [place] [address] OT 6 Clicks Score: 17 DISCHARGE RECOMMENDATIONS Home OT Recommended Discharge Disposition Comments: Pt states spouse can assist with meals and light ADL tasks; home health recommended upon discharge Anticipated Discharge Needs: Family Training, Supervision at Home Recommended Discharge Equipment: ADL Kit, Walker bag/basket, To Be Determined GOALS Patient will demonstrate progress with self-care, cognitive and/or coping needs identified to allow safe discharge to home with available support and/or physical assistance. Lower Body Bathing with: Stand By Assistance Lower Body Dressing with: Stand By Assistance Toilet Hygiene with: Stand By Assistance Chair Transfer with: Stand By Assistance Toilet Transfer with: Stand By Assistance Tub Transfer with: Contact Guard Assistance Tolerate (minutes of functional activity): 50 Functional Activity with: Stand By Assistance Kitchen Mobility Tasks with: Stand By Assistance Progress Toward Goals: Progressing as expected Rehab Potential: Good ASSESSMENT Response to Therapy Interventions: Good Participation in Activities, Pain, Requires Additional Time to Complete Activities This 64 year old patient presents with deficits in ADL skills, functional mobility skills, standing balance/tolerance, and overall activity tolerance s/p recent TKR to LLE on 06/22/24 and transfer from this rehab facility on 07/03/2024 due to episode of hypotension and labs that indicated possibly leukocytosis. Pt has now returned for skilled rehab and would benefit from skilled OT treatment to address ADL training, functional mobility training including bed mobility, transfers to chair, toilet and tub, and kitchen mobility training, standing balance/tolerance training, and caregiver/family instruction as needed prior to discharge. Pt is functioning below his baseline level of function and is unable to return home at his current level of function. See below for specifics Plan for Next Visit: Bed Mobility, Chair/Commode Transfer Training, Dressing Training, Energy Conservation, Grooming Training, Sit to Stand Transfers, Standing Balance, Standing Tolerance, Toileting Instruction PRECAUTIONS Fall Risk, Total Knee Replacement, Weight Bearing Restrictions L TKA and WBAT, MIRANDA hose, fall risk, Parkinson's Left Lower Extremity Weight Bearing Status: WBAT SUBJECTIVE Pt stated he is frustrated that he had medical complications and feels he is behind in his recovery FUNCTIONAL STATUS Activities of Daily Living Assist Level Additional Information Feeding Independent Grooming Set Up Bathing Upper Body Set Up Bathing Lower Body Minimal Assistance Dressing Upper Body Set Up Dressing Lower Body Moderate Assistance Toileting Moderate Assistance Instrumental Activities of Daily Living Assist Level Additional Information Meal/Beverage Prep Maximal Assistance Cleaning Total Assistance Laundry Maximal Assistance Medication Management with Strategies Mobility Assist Level Additional Information Bed Mobility Supine To Sit: Maximal Assistance, Additional Information from flat bed, no rail; assist needed for upper body to move to upright position and assist for LEs out of bed; pt reports he usually sleeps in a recliner at home Sit to Stand Contact Guard Assistance Stand to Sit Contact Guard Assistance Bed to Chair Contact Guard Assistance Bed To Chair Transfer Type: Stepping Bed To Chair Transfer Equipment: Wheeled Walker, Gait Belt Toilet/Commode Shower Functional Mobility Contact Guard Assistance Functional Mobility Device: Wheeled Walker CURRENT HOSPITAL COURSE Patient is a 64 year old male presenting from [facility] from 07/03-07/05 for YUMIKO, hypotension, WBC of 24, distended gallbladder with mild wall thickening per CT abdomen. Conley removed during stay. Recent elective L TKA 06/22 at [facility]. Patient now presents motivated to return to home setting with 27/04 supervision and assist from spouse. Relevant Past Medical History: HTN, HFrEF, T2DM, Parkinson's disease, Possible stroke per daughter, L TKA 06/22/24; HOME LIVING Patient Lives With: Spouse (FIrst floor apartment) Assistance Available: 24-Hour (spouse cannot physically assist due to LBP) Entry To Home: No Stairs Number Of Stairs To Bed/Bath: 0 Tub/Shower Type: tub shower bench Laundry: same level- spouse completes Equipment Owned: Commode- 3 in 1, Extended Tub Bench, Walker- Wheeled, Other: See Comment (transport chair) PRIOR FUNCTIONAL LEVEL Required Assistance Assistance Required With: Medication Management, Shopping, Self Care Pt was GA with mobility; limited distances d/t pain in knee; pt would use cart in grocery store, no AD in house; Pt typically sleeps in recliner. He required assist w/ bathing and LB dressing; Spouse does most meals, laundry and cleaning; +driving Per chart, pt and spouse have hoarding tendencies so there is limited space in home. Spouse is 80 y/o and unable to physically assist pt. One fall at home, no injuries. Diagnosed with Parkinson's February 2024 Independent with medication with diffculty Baseline Cognition: Oriented to self, Oriented to place, Oriented to time, Oriented to situation COGNITION THERAPY DIAGNOSIS Reduced mobility-other, Decreased activities of daily living (ADL), Muscle Weakness (generalized), Unsteadiness on feet TREATMENT INTERVENTIONS Evaluation, Therapeutic Activity (09502) Timed Code Treatment (minutes): 10 Skilled Treatment Time (minutes): 35 EXERCISE None performed this session TRAINING AND EDUCATION PROVIDED Activity Adaptation/Compensatory Strategies, Assistive Device Use, Bed Mobility, Benefits of In-Hospital Mobility, Discharge Planning, Energy Conservation, Precautions/Restrictions, Role of Occupational Therapy, Transfer - Bed to Chair, Transfer - Sit to Stand THERAPEUTIC SKILLS USED Activity Dosing, Cues for Sequencing/Proper Technique for Activity, Cuing Verbal, Facilitation of Joint Range of Motion, Movement Facilitation, Physical Assist, Therapeutic Use of Self PLAN OT Frequency: 3 Times Per Week (33-6 times per week x 7-10 days) Treatment Interventions: Education, Self Care/Home Management, Energy Conservation Training, Strengthening, Functional Mobility Training, Balance Training SIGNATURE: MIRIAN Carrasco/[place] PATIENT NAME: Nick Arora DATE: July 06, 2024 TIME: 4:27 PM THERAPY NT Observed: 07/06/2024 2:32 PM Status: COMPLETED Source: [facility] HNO ID: [id number] Author: HILARY REESE, PT Service: Physical Therapy Author Type: Physical Therapist Type: Therapy (PT/OT/Speech/Resp) Filed: 07/06/2024 14:32 Note Text: Summary: PT evaluation note Physical Therapy Halfway Facility Evaluation Summary SERVICE DATE: 07/06/2024 SERVICE TIME: 1342 to 1411 ROOM: [place] [address] PT 6 Clicks Score: 18 DISCHARGE RECOMMENDATIONS Home PT Recommended Discharge Disposition Comments: Home PT with 27/04 supervision from spouse, but not physical assist Anticipated Discharge Needs: Family Training, Supervision at Home Recommended Discharge Equipment: To Be Determined GOALS Patient will demonstrate progress with functional mobility to allow safe discharge to home with available support and/or physical assistance. Able to Perform HEP with: Independent Rolling with: Modified Independent Transfer Supine to/from Sit with: Modified Independent Transfer Sit to/from Stand with: Supervision Ambulate with: Supervision Distance: 150+ Device: Wheeled Walker ROM: L knee 0-100 with < 2/10 pain via manual therapy/ AROM/ PROM techniques/ bicycle Goal: 10 MWT > 0.75 m/s Rehab Potential: Good Progress Toward Goals: Progressing as expected ASSESSMENT Response to Therapy Interventions: Good Participation in Activities Patient is a 64 year old male presenting to [facility] s/p hospitalization at [facility] s/p YUMIKO, hypotension and elevated white count. Patient now presents with significantly improved knee extension compared with prior EOC, at a 5 degree lack of extension from neutral, and flexion to 93 degrees AAROM with no increase in pain. Patient highly motivated to return to home setting at this time, with patient needing to be at a mod I level due to patient's unable to physically assist. Will also focus on PWR based movements to improve bed mobility and ease of transfers with decreased freezing episodes. Recommend 7 days to facilitate return to mod I status. Plan for Next Visit: Gait Training, Exercise Instruction/Handout (PWR moves for bed mobility) PRECAUTIONS Fall Risk, Total Knee Replacement, Weight Bearing Restrictions L TKA and WBAT, MIRANDA hose, fall risk, Parkinson's Left Lower Extremity Weight Bearing Status: WBAT SUBJECTIVE The doctor isn't happy with my progress. FUNCTIONAL STATUS Bed Mobility Rolling: Supervision Supine To Sit: Minimal Assistance (assist for LLE, flat bed) Sit to Supine: Minimal Assistance (assist for BLEs due to hamstring tightness, L sided weakness) Scooting: Stand By Assistance Transfers Sit To Stand: Contact Guard Assistance (from 18 wheelchair) Stand To Sit: Contact Guard Assistance Bed to Chair Contact Guard Assistance Bed To Chair Transfer Type: Stepping Bed To Chair Transfer Equipment: Gait Belt, Wheeled Walker Gait Contact Guard Assistance Gait Device: Wheeled Walker, With Wheelchair Follow General Deviations/Observations: Shuffling Gait, Flexed trunk posture, Step length decreased (decreased heel strike B with bilateral knee flexion) Gait Distance (feet): 65' Stairs (N/A) CURRENT HOSPITAL COURSE Patient is a 64 year old male presenting from [facility] from 07/03-07/05 for YUMIKO, hypotension, WBC of 24, distended gallbladder with mild wall thickening per CT abdomen. Conley removed during stay. Recent elective L TKA 06/22 at [facility]. Patient now presents motivated to return to home setting with 27/04 supervision and assist from spouse. Relevant Past Medical History: HTN, HFrEF, T2DM, Parkinson's disease, Possible stroke per daughter, L TKA 06/22/24; HOME LIVING Patient Lives With: Spouse (FIrst floor apartment) Assistance Available: 24-Hour (spouse cannot physically assist due to LBP) Entry To Home: No Stairs Number Of Stairs To Bed/Bath: 0 Tub/Shower Type: tub shower bench Laundry: same level- spouse completes Equipment Owned: Commode- 3 in 1, Extended Tub Bench, Walker- Wheeled, Other: See Comment (transport chair) PRIOR FUNCTIONAL LEVEL Required Assistance Assistance Required With: Medication Management, Shopping, Self Care Pt was GA with mobility; limited distances d/t pain in knee; pt would use cart in grocery store, no AD in house; Pt typically sleeps in recliner. He required assist w/ bathing and LB dressing; Spouse does most meals, laundry and cleaning; +driving Per chart, pt and spouse have hoarding tendencies so there is limited space in home. Spouse is 80 y/o and unable to physically assist pt. One fall at home, no injuries. Diagnosed with Parkinson's February 2024 Independent with medication with diffculty THERAPY DIAGNOSIS Reduced mobility-other, Muscle Weakness (generalized), Difficulty walking-musculoskeletal TREATMENT INTERVENTIONS Evaluation, Therapeutic Exercise (71119) Timed Code Treatment (minutes): 9 Skilled Treatment Time (minutes): 29 EXERCISE Exercises Exercise: Manual AP tibia on femur grade III x 3 minutes in an oscillatory manner with emphasis on improved knee extension. No pain noted. Manual overpressure into knee extension x 2 minutes with no increase in pain. AAROM heel slides using gait belt x 5 repetitions, as well as quad sets x 10 with 2 second holds, and ankle pumps x 20 TRAINING AND EDUCATION PROVIDED Anatomy and Impact on Deficits, Assistive Device Use, Bed Mobility, Benefits of In-Hospital Mobility, Discharge Planning, Disease Specific Education, Energy Conservation, Equipment, Exercise Program, Expected Functional Level, Falls Prevention, Gait Pattern, Reduction of Deviations, Home Safety, Home Set-up/Modifications, Positioning, Precautions/Restrictions, Standing Balance, Transfers, Treatment Protocol THERAPEUTIC SKILLS USED Activity Dosing, Cues for Sequencing/Proper Technique for Activity, Cuing Tactile, Cuing Verbal, Cuing Visual, Facilitation of Joint Range of Motion, Movement Facilitation, Muscle Activation Facilitation, Physical Assist, Postural Alignment Correction PLAN PT Frequency: (7x 7 days) Treatment Interventions: Education, Self Care / Home Management, Energy Conservation Training, Joint Mobility, Strengthening, Functional Mobility Training, Balance Training, Neuromuscular Re-education, Wound Care Management, Modalities, Edema Management, Pain Management SIGNATURE: Hilary Reese, PT PATIENT NAME: Nick Arora DATE: July 06, 2024 TIME: 2:32 PM HISTORY PHYSICAL Observed: 07/06/2024 12:54 PM Status: COMPLETED Source: [facility] HNO ID: [id number] Author: IRMA SALAZAR APRN.RNP Service: Hospital Medicine Author Type: Nurse Practitioner Type: H&P Filed: 07/06/2024 20:32 Note Text: Attestation signed by Aurelio Sanders MD at 07/08/2024 2:01 PM [facility] STAFF PHYSICIAN NOTE OF PERSONAL INVOLVEMENT IN CARE I have reviewed the history and physical examination obtained and documented by the nurse practitioner and discussed the case on as needed basis Principal Problem: Aftercare (POA: Yes) Active Problems: Essential (primary) hypertension (POA: Yes) Mild depression (POA: Yes) Type 2 diabetes mellitus without complication, without long-term current use of insulin (HCC) (POA: Yes) Chronic combined systolic and diastolic heart failure (HCC) (POA: Yes) Parkinson's disease with dyskinesia (HCC) (POA: Yes) Status post total left knee replacement (POA: Yes) Acute urinary retention (POA: Yes) Malnutrition of mild degree (HCC) (POA: Yes) Nausea and vomiting (POA: Yes) UTI (urinary tract infection) (POA: Yes) YUMIKO (acute kidney injury) (HCC) (POA: Yes) Hypotension (POA: Unknown) Resolved Problems: YUMIKO (acute kidney injury) (HCC) (POA: Yes) UTI (urinary tract infection) (POA: Yes) Aurelio Sanders MD, [facility] Staff,Dept of Hospital Medicine July 08, 2024 2:00 PM Pager:Click here to page DEPARTMENT OF HOSPITAL MEDICINE HISTORY AND PHYSICAL EXAM SERVICE DATE: 07/06/2024 SERVICE TIME: 12:54 PM Primary Care Physician: Aga Benitez MD NIGHT AND WEEKEND COVERAGE: [facility] Medicine MARIA D 7a-7p Page [id number] 7p-7a Subjective CHIEF COMPLAINT: rehabilitation following hospitalization HPI: This is a 64 year old male with PMH DMII, BPH, Parkinson's disease, depression, diastolic HF, admitted to [facility] on 06/22/2024 for elective left total knee replacement. Patient underwent surgery on 06/22/[address] Ge. Post-op course was complicated by YUMIKO, thus Lisinopril-HCTZ/Aldactone were held. Patient received IVF and Cr trended down (1.48 on 06/27/2024). Ortho recommended Eliquis BID x14 days. Ortho also recommended WBAT LLE and encourage ROM to LLE. Follow up appointment was scheduled for 07/06/2024. Patient was noted to be constipated and tap water enema was given without much success. Patient was discharged with Conley in place due to acute urinary retention noted on admission to [place]. Patient was evaluated by therapy, thus patient was transferred to [facility] for further services. Patient was progressing well while at [facility] and successfully passed voiding trial. On 07/02/2024 patient had hypotensive episode without acute symptoms and routine labs were checked that showed worsening of YUMIKO and significant WBC elevation to >20K. UA showed a UTI. Given the significant YUMIKO and UTI, a CT AP was performed that showed a dilated gallbladder and recommended RUQ. Given patient significant YUMIKO, WBC elevation, and CT AP findings, it was deemed appropriate to transfer patient to [facility] for higher level of care. Patient was admitted to [facility] on 07/03/2024. Urine cx noted 10,000 -<50,000 CFU/ml Gram negative bacilli. Patient was treated with IV Ceftriaxone and leukocytosis improved to 11k; transitioned to PO ATB at [place]. Patient received IVF and BP normalized; anti-HTN meds restarted slowly and tolerated Amlodipine/Clonidine. YUMIKO improved with IVF. Lisinopril dose was decreased and HCTZ was stopped. RUQ US was negative for gallbladder findings and GI did not recommend any further intervention. Once medically stable, patient was transferred back to [facility] for further services. Today, patient returned from f/u ortho appointment. He reports severe pain to left knee; declined pain medication prior to appointment. He reports ortho removed lianet and requests further ROM exercises. Patient denies ABD pain, constipation, urinary sx. He reports he had BM overnight and is urinating without issue. Patient is hopeful to return home at [place]. Code status updated in [facility] per patient wishes. PAST MEDICAL HISTORY Diagnosis Date Anxiety and depression BPH (benign prostatic hyperplasia) Congestive heart failure (HCC) Diabetes (HCC) Dyslipidemia Hypertension Kidney stone Spinal stenosis TIA (transient ischemic attack) Tremor PAST SURGICAL HISTORY Procedure Laterality Date TOTAL KNEE REPLACEMENT Left 06/2024 FAMILY HISTORY Problem Relation Age of Onset Cancer Mother Diabetes Mother other (HTN) Mother Stroke Mother Sudden Cardiac Father advanced age at 90 yo other (HTN) Father other (DM) Sister other (HTN) Sister Cancer Brother colon cancer , stomach cancer other (dm) Brother Stroke Brother Social History Tobacco Use Smoking status: Never Smokeless tobacco: Never Vaping Use Vaping status: Never Used Substance Use Topics Alcohol use: Not Currently Comment: none now Drug use: Never PRIOR TO ADMISSION MEDICATIONS: tamsulosin (FLOMAX) 0.4 mg, Take 2 capsules by mouth once daily., Disp: , Rfl: , 07/05/2024 acetaminophen (TYLENOL) 325 mg tablet, Take 2 tablets by mouth every 6 hours as needed for pain., Disp: , Rfl: , 07/04/2024 docusate sodium (COLACE) 100 mg capsule, Take 1 capsule by mouth two times a day., Disp: , Rfl: , 07/05/2024 lisinopril (ZESTRIL) 10 mg tablet, Take 1 tablet by mouth once daily., Disp: , Rfl: , 07/05/2024 polyethylene glycol 3350 17 gram packet, Take 1 Packet by mouth two times a day. Dissolve dose in 4 - 8 ounces of liquid and take as directed., Disp: , Rfl: , 07/05/2024 carbidopa-levodopa (SINEMET 25-100) 25-100 mg per tablet, Take 1 tablet by mouth three times a day., Disp: 90 tablet, Rfl: 5, 07/05/2024 amLODIPine (NORVASC) 10 mg tablet, Take 10 mg by mouth once daily., Disp: , Rfl: , 07/05/2024 cloNIDine HCl (CATAPRES) 0.2 mg tablet, Take 0.2 mg by mouth two times a day., Disp: , Rfl: , 07/05/2024 citalopram (CELEXA) 40 mg tablet, Take 40 mg by mouth once daily., Disp: , Rfl: , 07/05/2024 cefdinir (OMNICEF) 300 mg capsule, Take 1 capsule by mouth two times a day for 5 days., Disp: 10 capsule, Rfl: 0, Unknown apixaban (ELIQUIS) 2.5 mg tab(s), Take 1 tablet by mouth two times a day for 21 doses., Disp: 21 tablet, Rfl: 0, Unknown spironolactone (ALDACTONE) 25 mg tablet, Take 1 tablet by mouth once daily., Disp: 90 tablet, Rfl: 3, Unknown atorvastatin (LIPITOR) 20 mg tablet, Take 1 tablet by mouth daily at bedtime., Disp: 90 tablet, Rfl: 1, Unknown dapagliflozin propanediol (FARXIGA) 10 mg tablet, Take 1 tablet by mouth daily with breakfast., Disp: 90 tablet, Rfl: 3, Unknown aspirin 81 mg cap, Take 81 mg by mouth once daily., Disp: , Rfl: , Unknown iv contrast (will be provided with radiology test), CTA Head/Neck W No IV access, insert saline lock prior to the sedation, infusion, injection for imaging exam. Discontinue saline lock post exam. If Pt. has a central line or IVAD, may access for administration according to line specific nursing protocol. Once exam is complete flush line and de-access according to line specific nursing protocol in the CT contrast administration guidelines link., Disp: 1 Each, Rfl: 0 ALLERGIES Allergen Reactions Acetaminophen GI Upset Hydrocodone GI Upset Tramadol GI Upset Vicodin [Hydrocodon* GI Upset REVIEW OF SYSTEM: Review of Systems Constitutional: Negative for chills and fever. Respiratory: Negative for cough and shortness of breath. Cardiovascular: Negative for chest pain, palpitations and leg swelling. Gastrointestinal: Negative for abdominal pain, constipation, diarrhea, nausea and vomiting. Genitourinary: Negative for dysuria, frequency and urgency. Musculoskeletal: Positive for joint pain. +left knee pain Skin: Negative. Neurological: Negative for dizziness and headaches. Objective PHYSICAL EXAM: BP 142/84 Pulse 96 Temp (Src) 97.8 (Axillary) Resp 16 Ht 5' 11 (1.80m) Wt 219 lb 2.2 oz (99.4kg) SpO2 99% BMI 30.58 kg/(m2). O2 Therapy: Room Air Physical Exam Performed: GENERAL: Alert, no distress, cooperative SKIN: Skin color, texture, turgor normal. No rashes. HEAD/SINUSES: No significant findings, NC/AT LUNGS: Lungs clear to auscultation, Good diaphragmatic excursion CARDIAC: No murmur, RRR ABDOMEN: Abdomen soft, non-tender, BS normal EXTREMITIES: + left knee surgical scar well approximated with minimal post-op edema. [place] removed today by ortho. Extremities without clubbing or skin discoloration. Good capillary refill. NEURO: Grossly normal cognition, Sensation grossly intact. + resting tremors. PULSES: 2+ radial, 2+ dorsalis pedis Lines, Drains, and Airways None Patient does not currently have any lines, drains or airways. DATA: Diagnostic tests reviewed for today's visit: Most recent labs Assessment/Plan Problem List Aftercare (POA: Yes) UTI (urinary tract infection) (POA: Yes) YUMIKO (acute kidney injury) (HCC) (POA: Yes) Status post total left knee replacement (POA: Yes) Essential (primary) hypertension (POA: Yes) Mild depression (POA: Yes) Type 2 diabetes mellitus without complication, without long-term current use of insulin (HCC) (POA: Yes) Chronic combined systolic and diastolic heart failure (HCC) (POA: Yes) Parkinson's disease with dyskinesia (HCC) (POA: Yes) Acute urinary retention (POA: Yes) Malnutrition of mild degree (HCC) (POA: Yes) Nausea and vomiting (POA: Yes) Hypotension (POA: Status not on file) HOSPITAL COURSE: Nick Arora is a 64 year old male with PMH DMII, BPH, Parkinson's disease, depression, diastolic HF, admitted to [facility] on 06/22/2024 for elective left total knee replacement. Patient underwent surgery on 06/22/[address] Ge. Post-op course was complicated by YUMIKO, thus Lisinopril-HCTZ/Aldactone were held. Patient received IVF and Cr trended down (1.48 on 06/27/2024). Ortho recommended Eliquis BID x14 days. Ortho also recommended WBAT LLE and encourage ROM to LLE. Follow up appointment was scheduled for 07/06/2024. Patient was noted to be constipated and tap water enema was given without much success. Patient was discharged with [place] in place due to acute urinary retention noted on admission to [place]. Patient was evaluated by therapy, thus [facility]. Patient was progressing well while at [facility] and successfully passed voiding trial. On 07/02/2024 patient had hypotensive episode without acute symptoms and routine labs were checked that showed worsening of YUMIKO and significant WBC elevation to >20K. UA showed a UTI. Given the significant YUMIKO and UTI, a CT AP was performed that showed a dilated gallbladder and recommended RUQ. Given patient significant YUMIKO, WBC elevation, and CT AP findings, it was deemed appropriate to transfer patient to [facility] for higher level of care. Patient was admitted to [facility] on 07/03/2024. Urine cx noted 10,000 -<50,000 CFU/ml Gram negative bacilli. Patient was treated with IV Ceftriaxone and leukocytosis improved to 11k; transitioned to PO ATB at [place]. Patient received IVF and BP normalized; anti-HTN meds restarted slowly and tolerated Amlodipine/Clonidine. YUMIKO improved with IVF. Lisinopril dose was decreased and HCTZ was stopped. RUQ US was negative for gallbladder findings and GI did not recommend any further intervention. Once medically stable, patient was [facility]. Obesity Class I (BMI 30-34.9) Principal Problem: Aftercare - Hospitalization Dates: 07/03/2024-07/05/2024 - previous admits-- [facility]; 06/22-06/29/24 [facility] - Hospitalization Diagnosis: hypotension/YUMIKO - Discharge Facility: [facility] - PT/OT Consult - Nutrition Consult - Case Management Consult for Discharge Planning - Pain Control: scheduled tylenol; PRN oxycodone - DVT Prophylaxis: Eliquis BID until 07/14/2024 - PT/OT Restrictions: WBAT LLE - Current Living Situation: home with family - Code Status: FULL CODE Active Problems: UTI (urinary tract infection) - Urine cx: 10,000 -<50,000 CFU/ml Gram negative bacilli - treated with IV Ceftriaxone and transitioned to PO ATB - leukocytosis improved to 11k by DC - continue PO Keflex until 07/10/2024 - repeat labs on 07/10/2024 YUMIKO (acute kidney injury) (HCC) - Cr as high as 1.76, but trended down to 1.20 with IVF - Lisinopril dose was decreased and HCTZ was stopped - resume Aldactone on 07/06/2024 - avoid nephrotoxins when able - repeat labs on 07/10/2024 Status post total left knee replacement - Elective surgery on 06/22/[address] Felipe - pain control with bowel regimen - WBAT LLE; Encourage ROM - Eliquis BID until 07/14/2024 - PRN ice - f/u with Ortho on 07/06/2024-- recs for further ROM exercises Hypotension-- RESOLVED Essential (primary) hypertension - noted to be hypotensive and responded with IVF at [place] - Lisinopril dose was decreased and HCTZ was stopped - Continue Amlodipine, Aldactone, and Clonidine Nausea and Vomiting-- RESOLVED - CT ABD/PEL-- Mildly distended gallbladder with mild wall thickening - RUQ US negative gallbladder - GI consulted at [place] who recommended no further intervention - PRN Zofran Mild depression - Continue Celexa Type 2 diabetes mellitus without complication, without long-term current use of insulin (HCC) - diet controlled at home; no longer on Metformin - last A1C 4 months ago-- 6.4% Chronic combined systolic and diastolic heart failure (HCC) - Last ECHO 04/2024-- There is mild concentric left ventricular hypertrophy. Left ventricular systolic function is normal. EF = 54 ? 5% (2D biplane). Grade I left ventricular diastolic dysfunction. - continue Aldactone and Farxiga Parkinson's disease with dyskinesia (HCC) - resting tremor present - continue Sinemet Acute Urinary retention - passed voiding trial prior to transfer to [place] - was noted to have difficulty urinating at [place] - Flomax dose was increased at [place]-- continue x1 week, then can reduce dose back to 0.4mg daily Medication Reconciliation: Completed Medication and Non-Pharmacologic VTE Prophylaxis/Anticoagulants Anticoagulant AND Antiplatelet Medications (From admission, onward) Start Dose Route Frequency Last Action Ordered Stop 07/06/24 0900 aspirin 81 mg chewable tab(s) 81 mg ORAL DAILY Given, 07/06 0859 07/05/24 1524 -- 07/05/242099 apixaban 2.5 mg tab(s) (ELIQUIS) 2.5 mg ORAL 2 TIMES DAILY Given, 07/06 90407/05/24 15207/14/24205807/05/24 153 vte current anticoag therapy (ga,wv) 07/05/24 153 activity - mobilize patient ([place]) VTE Prophylaxis: VTE prophylaxis appropriate Disposition: To be determined Plan of care discussed with Provider, RN, Patient Plan communicated to: N/A SIGNATURE: Irma Salazar APRN.CNP PATIENT NAME: Nick Arora DATE: July 06, 2024 TIME: 12:54 PM NURSING PROG Observed: 07/06/2024 8:59 AM Status: COMPLETED Source: [facility] HNO ID: [id number] Author: TERRA PEDERSEN RN Service: Nursing Author Type: Registered Nurse Type: Nursing Progress Note Filed: 07/06/2024 15:59 Note Text: Patient sitting up in w/c at bedside. All treatments and procedures were explained. Pt verbalized understanding. Pt to be picked up by [facility] at 9:30 this morning for ortho appointment. No questions or concerns were voiced at this time. Offered pain med prior to appointment. Pt refused at this time. No family present. NUTRITION Observed: 07/06/2024 7:33 AM Status: COMPLETED Source: [facility] HNO ID: [id number] Author: MIN ANDREWS RD Service: Nutrition Therapy Author Type: Registered Dietitian Type: Nutrition Filed: 07/06/2024 13:37 Note Text: NUTRITION THERAPY INITIAL ASSESSMENT SERVICE DATE: 07/06/2024 SERVICE TIME: 12:00 PM Nutrition Assessment: Recommended Malnutrition Diagnosis: Mild Protein-Calorie Malnutrition In the context of: Chronic Illness or Injury Based on: Insufficient Energy Intake Nutrition Diagnosis: Problem: Suboptimal protein/energy intake Related to: Chronic illness As evidenced by: Anorexia, Patient/family self-report Care Plan: Continue current diet Supplements: Mighty Shake No Sugar Added Monitor and Evaluation: Meet greater than 75% of estimated needs, Monitor fluid/electrolyte balance, Monitor labs, I/Os, vital signs, weight Discharge Recommendations: Diet;Oral Supplements Diet: regular Oral Supplements: high protein daily HPI: 64 y/o male w/ PMHx below here for Aftercare [Z51.89] R/t YUMIKO, Leukocytosis Parkinson's TKA PAST MEDICAL HISTORY Diagnosis Date Anxiety and depression BPH (benign prostatic hyperplasia) Congestive heart failure (HCC) Diabetes (HCC) Dyslipidemia Hypertension Kidney stone Spinal stenosis TIA (transient ischemic attack) Tremor 07/05/24 : 99.4 kg (219 lb 2.2 oz) 07/03/24 : 101 kg (222 lb 10.6 oz) 06/29/24 : 100.3 kg (221 lb 1.9 oz) 04/18/24 : 108.8 kg (239 lb 13.8 oz) 04/04/24 : 108.8 kg (239 lb 15.5 oz) Intake History: Nutrition Intake Prior to Admission: Unable to determine (stated OK) Current Nutrition Intake: Greater than 75% estimated energy needs (Ons TO BE RESUMED) Dosing Weight: 78.2 kg (172 lb 6.4 oz) Dosing Weight Type: [place] body weight Estimated kilocalorie needs: 3349-7225 Calorie Calculation Method: 25-30 kcals/kg Estimated protein needs (grams): 78-93 Grams protein determined by: 1.0 - 1.2 g/kg Diet Orders (From admission, onward) Start Ordered 07/05/24 1530 DIET REGULAR START NOW 07/05/24 1524 Anthropometrics: Height: 180.3 cm (5' 11) Weight: 99.4 kg (219 lb 2.2 oz) Usual Weight: 113.4 kg (250 lb) chart review 02/25-06/29 (1 yr [employer]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 Weight change percentage over time: 7.5% loss @ ~ 3mo w/ some of the recent loss probably unintended w/ stated <50% meal intake >2 mo. 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) Functional Status: No Change Potential Signs of Inflammation: Hypoalbuminemia, Chronic condition, Leukocytosis DM HTN CHF MNT Billing: $ Initial Assessment: 1-15 minutes SIGNATURE: Min Andrews RD PATIENT NAME: Nick Arora DATE: July 06, 2024 TIME: 12:13 PM SOCIAL WORK Observed: 07/05/2024 4:25 PM Status: COMPLETED Source: [facility] HNO ID: [id number] Author: LEIA GODWIN LSW Service: Social Work Author Type: Clinician Oncology Type: Social Work Filed: 07/05/2024 16:27 Note Text: Summary: Appointment SOCIAL WORK PROGRESS NOTE Name: Nick Arora SW had scheduled transport for patient's ortho appt on 07/06 at 10:45. Patient just returned today from [facility]. Asked him if he still wants to keep appt. Patient agreed to do so. Said he hates to cancel it. [facility] scheduled to pickle sorter at 9:30 on 07/06. Signature: ALPA Black Date: July 05, 2024 Time: 4:25 PM NURSING PROG Observed: 07/05/2024 3:52 PM Status: COMPLETED Source: [facility] HNO ID: [id number] Author: BRUCE PARK RN Service: Nursing Author Type: Registered Nurse Type: Nursing Progress Note Filed: 07/05/2024 15:53 Note Text: Pt's daughter Carmina would like to be notified if pt needs to be transferred to another facility ALLERGIES DATE TYPE / CODE NAME / CODE REACTION SEVERITY SOURCE 05/02/2025 DRUG INGREDI/390166 003(SNOMED CT) GABAPENTIN [facility] 12/08/2023 DRUG/[id number] (SNOMED CT) HYDROCODONE-ACETAMINOPH EN GI UPSET [facility] 04/23/2023 DRUG INGREDI/008618 003(SNOMED CT) ACETAMINOPHEN GI UPSET [facility] 04/23/2023 DRUG INGREDI/818617 003(SNOMED CT) HYDROCODONE GI UPSET [facility] 04/23/2023 DRUG INGREDI/887653 003(SNOMED CT) TRAMADOL GI UPSET [facility] ENCOUNTERS ADMIT/DISCHARGE ACCOUNT NUMBER ADMITTING ENCOUNTER CLASS LOCATION SOURCE 05/24/2025/05/25/20 [id number] [facility] [place] [facility] 518DBed: 01 [facility] 05/23/2025/05/23/20 25 [id number] [facility] [facility] 05/11/2025/05/11/20 25 [id number] Ambulatory [facility] HospitalBuil ding:WOL2 [facility] 05/02/2025/05/02/20 25 [id number] Ambulatory [facility] HospitalBuil ding:STLB [facility] 05/02/2025/05/02/20 25 [id number] Ambulatory [facility] HospitalBuil ding:STAC [facility] 05/02/2025/05/02/20 25 [id number] Ambulatory [place] [facility]:FVNFRV [facility] 05/01/2025/05/01/20 25 [id number] [facility] [place] [facility] 05/01/2025/05/01/20 25 [id number] [facility] [place] [facility] 04/26/2025/04/26/20 25 [id number] Ambulatory [facility] HospitalBuil ding:URMD [facility] 04/26/2025/04/26/20 25 [id number] Ambulatory [facility] HospitalBuil ding:MDVL [facility] 03/27/2025 [id number] Ambulatory [facility] HospitalBuil ding:BOSSMAN [facility] 03/27/2025/03/27/20 25 [id number] Ambulatory [facility] HospitalBuil ding:JOHNY [facility] 03/27/2025/03/27/20 25 [id number] [facility] 03/14/2025/03/14/20 25 [id number] Ambulatory [facility] HospitalBuil ding:[facility] 03/13/2025/03/13/20 25 [id number] Ambulatory [facility] HospitalBuil ding:BRIANNE [facility] 03/13/2025/03/13/20 25 [id number] [facility] [place] [facility] 02/20/2025/02/21/20 25 [id number] [facility] [place] [facility] 02/06/2025/02/07/20 25 [id number] Ambulatory [facility] HospitalBuil ding:VIDA [facility] 01/23/2025/01/24/20 25 [id number] Ambulatory [facility] HospitalBuil ding:VIDA [facility] 01/23/2025/01/24/20 25 [id number] Ambulatory [facility] HospitalBuil ding:ALBIN [facility] 10/20/2024/10/20/19 25 [id number] Ambulatory [facility] HospitalBuil ding:JOHNY [facility] 10/11/2024/10/11/19 25 [id number] Ambulatory [facility] HospitalBuil ding:BRIANNE [facility] 08/08/2024/08/08/20 24 [id number] [facility] 08/08/2024/08/08/20 24 [id number] Ambulatory [facility] HospitalBuil ding:LBSH [facility] 08/08/2024/08/08/20 24 [id number] Ambulatory [facility] HospitalBuil ding:MARY [facility] 07/25/2024/07/27/20 24 [id number] BALDEV BOSCH Ambulatory Buildin [id number]: [facility] [id number]: W5-541 B [facility] 07/05/2024/07/14/20 24 [id number] AURELIO SANDERS Inpatient Encounter [facility] Hospital[facility]ude ding:INGEChantal m: [id number]: [facility] PAYERS ENCOUNTER GUARANTOR PAYER SUBSCRIBER SOURCE 05/24/2025 Primary Insuranc e:[employer] MEDICARE HMOPolicy Number: [id number] Date:6768-78-66Erzo Name:Larry GARCIAB: [id number] [address] 05/24/2025 Secondary Insura nce:[place] MEDICAID[place] Number: [id number] Date:6772-15-45Vuvd Name:Aníbal NICK Rea GARCIAB: [id number] [address] 05/23/2025 Primary Insuranc e:[employer] MEDICARE HMOPolicy Number: [id number] Date:4979-42-89Uwhh Name:Larry TAYLORNICK Rea GARCIAB: [id number] [id number] [place] [address] 05/23/2025 Secondary Insura nce:[place] MEDICAIDPolicy Number: [id number] Date:3266-29-97Knxb Name:Aníbal NICK Rea GARCIAB: [id number] [id number] [place] [address] 05/11/2025 Primary Insuranc e:[employer] MEDICARE HMOPolicy Number: [id number] Date:0200-18-56Frcn Name:Larry ARORADOB: [id number] [address] [place] [address], [place] [address] [facility] 05/11/2025 Secondary Insura nce:[place] MED[place] Number: [id number] Date:6337-73-09Swpr Name:Aníbal ARORAB: [id number] [address] [place] [address], [place] [address] [facility] 05/02/2025 Primary Insuranc e:[employer] MEDICARE HMOPolicy Number: [id number] Date:2962-93-39Gxwq Name:Larry ARORAB: [id number] [address] [place] [address] [facility] 05/02/2025 Secondary Insura nce:[place] MEDICAIDPolicy Number: [id number] Date:0544-83-66Lbmr Name:Aníbal ARORAB: [id number] [address] [place] [address] [facility] 05/02/2025 Primary Insuranc e:[facility] MEDICARE HMOPolicy Number: [id number] Date:3455-65-06Hmcm Name:Larry ARORAB: [id number] [address] [place] [id number] [place] [address] 05/02/2025 Secondary Insura nce:[place] MEDICAIDPolicy Number: [id number] Date:1941-98-01Qwyi Name:Aníbal ARORAB: [id number] [address] [place] [id number] [place] [address] 05/02/2025 Primary Insuranc e:[facility] MEDICARE HMOPolicy Number: [id number] Date:5121-12-39Cngg Name:Larry ARORAB: [id number] [address] [place] [address] [facility] 05/01/2025 Primary Insuranc e:[employer] MEDICARE HMOPolicy Number: [id number] Date:8536-32-07Jpes Name:Larry ROMERO Rea GARCIAB: [id number] [address] [place], [place] [address] [facility] 05/01/2025 Primary Insuranc e:[employer] MEDICARE HMOPolicy Number: [id number] Date:3118-28-46Iprq Name:Larry NICK Rea GARCIAB: [id number] [address] [place] [address], [place] [address] [facility] 04/26/2025 Primary Insuranc e:[employer] MEDICARE HMOPolicy Number: [id number] Date:9370-17-50Wyfm Name:Larry TAYLORNICK Rea GARCIAB: [id number] [address] [place] [address], [place] [address] [facility] 04/26/2025 Primary Insuranc e:[employer] MEDICARE HMOPolicy Number: [id number] Date:3336-84-47Fcyb Name:Larry NICK Rea GARCIAB: [id number] [address] [place] [address] [facility] 03/27/2025 Primary Insuranc e:[employer] MEDICARE HMOPolicy Number: [id number] Date:8711-26-36Jtws Name:Larry TAYLORNICK Rea GARCIAB: [id number] [address] [address] [facility] 03/27/2025 Primary Insuranc e:[employer] MEDICARE HMOPolicy Number: [id number] Date:0963-86-01Qjse Name:Larry GARCIAB: [id number] [address], [place] [address] [facility] 03/27/2025 Primary Insuranc e:[facility] MEDICARE HMOPolicy Number: [id number] Date:3229-90-58Sxqm Name:Larry Lucia JOSEB: [id number] [address] [address] [facility] 03/14/2025 Primary Insuranc e:[employer] MEDICARE HMOPolicy Number: [id number] Date:2873-01-94Hwka Name:Larry Lucia JOSEB: [id number] [address] [address] [facility] 03/13/2025 Primary Insuranc e:[employer] MEDICARE HMOPolicy Number: [id number] Date:0519-15-27Uirp Name:Larry ROMERO Rea GARCIAB: [id number] [id number] [place] [address] 03/13/2025 Primary Insuranc e:[employer] MEDICARE HMOPolicy Number: [id number] Date:8426-96-31Onjz Name:Larry GARCIAB: [id number] [id number] [place] [address] 02/20/2025 Primary Insuranc e:[employer] MEDICARE HMOPolicy Number: [id number] Date:6409-63-09Htfs Name:Larry TAYLORNICK Rea GARCIAB: [id number] [address] [place] [id number] [place] [address] 02/06/2025 Primary Insuranc e:[facility] MEDICARE HMOPolicy Number: [id number] Date:5550-09-59Gsmc Name:Larry NICK Rea GARCIAB: [id number] [address] [place] [address] [facility] 01/23/2025 Primary Insuranc e:[employer] MEDICARE HMOPolicy Number: [id number] Date:7320-83-87Emkz Name:Larry Lucia MAITEDOB: [id number] [address] [place] [address] [facility] 01/23/2025 Primary Insuranc e:[facility] MEDICARE HMOPolicy Number: [id number] Date:5661-24-65Qfan Name:Larry Lucia JOSEB: [id number] [address] [place] [address] [facility] 10/20/2024 Primary Insuranc e:[employer] MEDICARE HMOPolicy Number: [id number] Date:4310-38-90Dnch Name:Larry Lucia JOSEB: [id number] [facility] [address] [place] [id number] [place] [address] 10/11/2024 Primary Insuranc e:[employer] MEDICARE HMOPolicy Number: [id number] Date:9977-25-39Ugyg Name:Larry Lucia JOSEB: [id number] [address] [place] [id number] [place] [address] 08/08/2024 Primary Insuranc e:[facility] MEDICARE HMOPolicy Number: [id number] Date:5537-02-59Dgzh Name:Larry Lucia JOSEB: [id number] [address] [place] [id number] [place] [address] 08/08/2024 Primary Insuranc e:[facility] MEDICARE HMOPolicy Number: [id number] Date:0593-64-70Iqcr Name:Larry ROMERO Rea GARCIAB: [id number] [address] [place] [id number] [place] [address] 08/08/2024 Primary Insuranc e:[facility] MEDICARE HMOPolicy Number: [id number] Date:3446-85-92Wlmz Name:Larry ROMERO Rea GARCIAB: [id number] [address] [place] [address] [facility] 07/25/2024 Primary Insuranc e:[employer] MEDICAREPolicy Number: [id number] Date:6346-23-92Wgqc Name:Medicare HMO NICK GARCIAB: [id number] [address] [place] [address] [facility] 07/05/2024 Primary Insuranc e:[employer] MEDICARE HMOPolicy Number: [id number] Date:5024-86-02Xxom Name:Larry BAIRD: [id number] [address] [address] [address] [facility]
[2025-07-04 11:44] LABS: Squamous Epithelial Cells - UA 0 SEEN /hpf (0-5)
[2025-07-04 15:34] LABS: Color, Urine Yellow (Yellow); Glucose, Dipstick 1000 mg/dl (Normal); Ketone-Dipstick 15 mg/dl (Negative); Leukocyte Esterase-Dipstick Negative /ul (Negative); Nitrite-Dipstick Negative (Negative); Occult Blood-Urine 10 /ul (Negative); Protein-Dipstick 30 mg/dl (Negative); Specific Gravity, Urine 1.020 (1.002-1.030); Urine Bilirubin Dipstick Negative (Negative)
[2025-07-04 15:40] LABS: Hematocrit 46.3 % (40-54); Hemoglobin 15.2 g/dL (13.0-16.5); Immature Granulocytes Count 0.020 X10^3/uL (0.0-0.0); Mean Corp Hgb Conc 32.8 g/dL (32-36); Mean Corpuscular Volume 92.8 fL (80-94); Mean Platelet Vol. 10.3 fl (6.2-12.0); NRBC Flagged by Analyzer 0 % (0-5); Platelet Count 240 K/mm3 (150-450); RBC Distribution Width CV 13.2 % (11.6-14.6); RBC Distribution Width SD 44.8 fl (35.1-43.9); Red Blood Count 4.99 M/mm3 (4.6-6.2); White Blood Count 9.6 K/mm3 (4.4-11.0)
[2025-07-04 15:51] LABS: Mucous, Urine 1+ /hpf (<or=2+); Red Blood Cells-Urine 0-5 SEEN /hpf (0-5)
[2025-07-04 16:28] LABS: AST(SGOT) 17 U/L (<=37); Alanine Aminotransfer ALT/SGPT < 5 U/L (<=46); Albumin, Serum 4.4 g/dL (3.4-4.8); Alkaline Phosphatase 100 U/L (40-129); Anion Gap 13 (5-15); BUN 18 mg/dL (4-19); BUN/Creat Ratio 15.0 RATIO (10-20); Calcium,Total 10.0 mg/dL (7.6-11.0); Carbon Dioxide 25.3 mmol/L (21.0-32.0); Chloride 102 mmol/L (98-108); Globulin 2.4 g/dL (2.2-4.2); Glucose 112 mg/dL (70-99); Potassium 4.1 mmol/L (3.3-5.1)
[2025-07-04 16:54] LABS: Cholesterol 114 mg/dL (<=200); Low Density Lipoprotein Calc. 39 mg/dL; Triglycerides 175 mg/dL; Very Low Density Lipoprotein 35 mg/dL (5-40); cholesterol:hdl ratio screen 2.82
== END | disposition home or self-care (01) ==
PROVIDERS: PCP Internal Medicine; Referring Provider Internal Medicine; Visit Provider Internal Medicine
DX: N40.1 Benign prostatic hyperplasia with lower urinary tract symptoms (principal); E11.9 Type 2 diabetes mellitus without complications; N39.43 Post-void dribbling; R11.11 Vomiting without nausea
CPT/HCPCS: 80053; 80061; 81001; 85025; 87086